=== PATIENT | female | born 1945 | race Caucasian/White ===

== ENCOUNTER 2016-04-22 17:47 | Inpatient (IN) | payer MEDICARE ==
[2016-04-22] MEDS ORDERED: ALBUTEROL NEBULIZED 2.5 MG/3 ML INHALATION STA (18:19)
[2016-04-22] MEDS ORDERED: SODIUM CHLORIDE 0.9% 1,000 ML IV STA (18:19)
[2016-04-22] MEDS ORDERED: IPRATROPIUM 0.5 MG/2.5 ML NEBU INHALATION STA (18:19)
[2016-04-22] MEDS ORDERED: methylPREDNISolone SOD SUCCI 125 MG/2 ML VIAL IV STA (18:19)
[2016-04-22] MEDS ORDERED: AZITHROMYCIN 500 MG in SODIUM CHLORIDE 0.9% 250 ML IVPB STA (18:19)
--- NOTE | 2016-04-22 18:32 | ED ---
General Adult HPI - General Source: patient, RN notes reviewed, old records reviewed Mode of arrival: ambulatory Limitations: no limitations <Colt Leija - Last Filed: 04/22/16 18:40> <Willy Bansal - Last Filed: 04/22/16 20:48> - General Chief complaint: Upper Respiratory Infection Stated complaint: lorna Time Seen by Provider: 04/22/16 18:19 - History of Present Illness Initial comments: This is a 70-year-old female here for evaluation of severe shortness of breath. Patient does suffer from asthma no heart failure. Coming with severe shortness of breath started today progressively worsening, patient does do a has at home but at this time they have not been helpful. Patient has no known fevers. No travel history or sick contacts no chest pain (Colt Leija) - Related Data Home Medications Medication Instructions Recorded Confirmed Aspirin 81 mg PO DAILY 01/04/14 04/22/16 Ferrous Sulfate [Feosol] 325 mg PO DAILY 01/04/14 04/22/16 Insulin Detemir [Levemir Flexpen] 56 units SQ AC-SUPPER 01/04/14 04/22/16 Multivitamin/Iron/Folic Acid 1 tab PO DAILY 01/04/14 04/22/16 [Centrum Complete Multivit Tab] Ranitidine HCl 150 mg PO DAILY 01/04/14 04/22/16 Sertraline [Zoloft] 100 mg PO DAILY 01/04/14 04/22/16 Sodium Chloride 5% Ophth Oint 1 applic LEFT EYE DAILY 01/04/14 04/22/16 [Amanda 128] Warfarin [Coumadin] 7.5 mg PO SUTUWETHSA 01/04/14 04/22/16 hydrALAZINE HCL [Apresoline] 25 mg PO TID 01/04/14 04/22/16 Albuterol Inhaler [Ventolin Hfa 2 puff INHALATION RT-QID PRN 08/30/14 04/22/16 Inhaler] Warfarin [Coumadin] 5 mg PO MOWEFR 08/30/14 04/22/16 Acetaminophen Tab [Tylenol Tab] 500 mg PO Q6HR PRN 04/22/16 04/22/16 Brimonidine Tartrate/Timolol 1 drop LEFT EYE DAILY 04/22/16 04/22/16 [Combigan 0.2%-0.5% Eye Drops] Fluticasone/Salmeterol [Advair Hfa 2 puff INHALATION RT-BID 04/22/16 04/22/16 230-21 Mcg Inhaler] Furosemide [Lasix] 40 mg PO DAILY 04/22/16 04/22/16 Gabapentin [Neurontin] 300 mg PO BID 04/22/16 04/22/16 Loratadine [Claritin] 10 mg PO DAILY 04/22/16 04/22/16 Magnesium Oxide [Mag-Ox] 250 mg PO DAILY 04/22/16 04/22/16 metFORMIN HCL 1,000 mg PO DAILY 04/22/16 04/22/16 Allergies Allergy/AdvReac Type Severity Reaction Status Date / Time Latex, Natural Rubber Allergy Itching Verified 04/22/16 19:02 sulfamethoxazole Allergy Rash/Hives Verified 04/22/16 19:02 [From Bactrim] trimethoprim [From Bactrim] Allergy Rash/Hives Verified 04/22/16 19:02 Review of Systems ROS Other: All systems not noted in ROS Statement are negative. <Colt Leija - Last Filed: 04/22/16 18:40> ROS Other: All systems not noted in ROS Statement are negative. <Willy Bansal - Last Filed: 04/22/16 20:48> ROS Statement: Those systems with pertinent positive or pertinent negative responses have been documented in the HPI. Past Medical History Past Medical History: Atrial Fibrillation, Asthma, Diabetes Mellitus, Hypertension, Osteoarthritis (OA) Additional Past Medical History / Comment(s): uterine ca History of Any Multi-Drug Resistant Organisms: None Reported, MRSA Date of last positivie culture/infection: 2013/MRSA MDRO Source:: right thumb Past Surgical History: Cholecystectomy, Hysterectomy Additional Past Surgical History / Comment(s): eye sx Past Psychological History: Depression Smoking Status: Never smoker Past Alcohol Use History: None Reported Past Drug Use History: None Reported <Colt Leija - Last Filed: 04/22/16 18:40> General Exam Limitations: no limitations General appearance: alert, anxious, in distress Head exam: Present: atraumatic, normocephalic, normal inspection Eye exam: Present: normal appearance, PERRL, EOMI. Absent: scleral icterus, conjunctival injection, periorbital swelling ENT exam: Present: normal exam, mucous membranes moist Neck exam: Present: normal inspection. Absent: tenderness, meningismus, lymphadenopathy Respiratory exam: Present: respiratory distress, wheezes, accessory muscle use, decreased breath sounds, prolonged expiratory. Absent: rales, rhonchi, stridor Cardiovascular Exam: Present: regular rate, normal rhythm, normal heart sounds. Absent: systolic murmur, diastolic murmur, rubs, gallop, clicks GI/Abdominal exam: Present: soft, normal bowel sounds. Absent: distended, tenderness, guarding, rebound, rigid Extremities exam: Present: normal inspection, full ROM, normal capillary refill. Absent: tenderness, pedal edema, joint swelling, calf tenderness Back exam: Present: normal inspection Neurological exam: Present: alert, oriented X3, CN II-XII intact Psychiatric exam: Present: normal affect, normal mood Skin exam: Present: warm, dry, intact, normal color. Absent: rash <Colt Leija - Last Filed: 04/22/16 18:40> Course <Colt Leija - Last Filed: 04/22/16 18:40> <Willy Bansal - Last Filed: 04/22/16 20:48> Vital Signs 04/22/16 04/22/16 04/22/16 17:51 18:26 19:00 Temperature 97.8 F Pulse Rate 41 L 69 57 L Respiratory 24 Rate Blood Pressure 204/64 O2 Sat by Pulse 82 L Oximetry 04/22/16 04/22/16 04/22/16 19:11 19:23 19:24 Temperature Pulse Rate 50 L 56 L 56 L Respiratory 16 Rate Blood Pressure 252/142 O2 Sat by Pulse 94 L Oximetry 04/22/16 04/22/16 19:33 20:44 Temperature Pulse Rate 68 70 Respiratory 16 Rate Blood Pressure 168/72 O2 Sat by Pulse 94 L Oximetry - Reevaluation(s) Reevaluation #1: 04/22/16 18:35 Patient with minimal to little breathing treatment help and prolonged breathing treatment (Colt Leija) EKG Findings - EKG Comments: EKG Findings:: EKG shows undetermined rhythm rate of 68, QRS 86, QTC 393 <Colt Leija - Last Filed: 04/22/16 18:40> Medical Decision Making - Radiology Data Radiology results: report reviewed (This x-ray two-view is negative for acute disease), image reviewed <Colt Leija - Last Filed: 04/22/16 18:40> - Lab Data Result diagrams: 04/22/16 18:30 04/22/16 18:30 - Radiology Data Radiology results: report reviewed, image reviewed (Chest x-ray shows some increased pulmonary vasculature.) <Willy Bansal - Last Filed: 04/22/16 20:48> - Medical Decision Making 6-year-old female date ER for evaluation of severe shortness of breath, patient having to difficulty breathing, patient care prolonged attention with minimal help, x-ray negative lab work,. Patient is severe asthma exacerbation, will be admitted for breathing treatments and steroids (Colt Leija) Patient reexamined by myself, Dr. Bansal. Patient is to comfortably on BiPAP. Patient still has continued wheezing. Patient and family updated on results and plan. Dr. dailey paged for admission for Dr. Willingham. (Willy Bansal) - Lab Data Lab Results 04/22/16 04/22/16 04/22/16 Range/Units 18:30 18:30 18:30 WBC 9.4 (3.8-10.6) k/uL RBC 6.00 H (3.80-5.40) m/uL Hgb 14.9 (11.4-16.0) gm/dL Hct 48.9 H (34.0-46.0) % MCV 81.4 (80.0-100.0) fL MCH 24.8 L (25.0-35.0) pg MCHC 30.5 L (31.0-37.0) g/dL RDW 15.1 (11.5-15.5) % Plt Count 255 (150-450) k/uL Neutrophils % 76 % Lymphocytes % 14 % Monocytes % 6 % Eosinophils % 1 % Basophils % 1 % Neutrophils # 7.2 (1.3-7.7) k/uL Lymphocytes # 1.3 (1.0-4.8) k/uL Monocytes # 0.6 (0-1.0) k/uL Eosinophils # 0.1 (0-0.7) k/uL Basophils # 0.1 (0-0.2) k/uL Hypochromasia Moderate PT (9.0-12.0) sec INR (<1.1) APTT (22.0-30.0) sec Sodium 138 (137-145) mmol/L Potassium 4.6 (3.5-5.1) mmol/L Chloride 98 (98-107) mmol/L Carbon Dioxide 28 (22-30) mmol/L Anion Gap 12 mmol/L BUN 20 H (7-17) mg/dL Creatinine 0.70 (0.52-1.04) mg/dL Est GFR (MDRD) Af Amer >60 (>60 ml/min/1.73 sqM) Est GFR (MDRD) Non-Af >60 (>60 ml/min/1.73 sqM) Glucose 213 H (74-99) mg/dL Calcium 8.7 (8.4-10.2) mg/dL Magnesium 1.7 (1.6-2.3) mg/dL Total Bilirubin 0.7 (0.2-1.3) mg/dL AST 36 (14-36) U/L ALT 32 (9-52) U/L Alkaline Phosphatase 83 (38-126) U/L Total Creatine Kinase 76 (30-135) U/L CK-MB (CK-2) 0.9 (0.0-2.4) ng/mL CK-MB (CK-2) Rel Index 1.2 Troponin I 0.013 (0.000-0.034) ng/mL NT-Pro-B Natriuret Pep pg/mL Total Protein 7.1 (6.3-8.2) g/dL Albumin 4.2 (3.5-5.0) g/dL 04/22/16 04/22/16 Range/Units 18:30 18:30 WBC (3.8-10.6) k/uL RBC (3.80-5.40) m/uL Hgb (11.4-16.0) gm/dL Hct (34.0-46.0) % MCV (80.0-100.0) fL MCH (25.0-35.0) pg MCHC (31.0-37.0) g/dL RDW (11.5-15.5) % Plt Count (150-450) k/uL Neutrophils % % Lymphocytes % % Monocytes % % Eosinophils % % Basophils % % Neutrophils # (1.3-7.7) k/uL Lymphocytes # (1.0-4.8) k/uL Monocytes # (0-1.0) k/uL Eosinophils # (0-0.7) k/uL Basophils # (0-0.2) k/uL Hypochromasia PT 21.6 H (9.0-12.0) sec INR 2.2 (<1.1) APTT 29.4 (22.0-30.0) sec Sodium (137-145) mmol/L Potassium (3.5-5.1) mmol/L Chloride (98-107) mmol/L Carbon Dioxide (22-30) mmol/L Anion Gap mmol/L BUN (7-17) mg/dL Creatinine (0.52-1.04) mg/dL Est GFR (MDRD) Af Amer (>60 ml/min/1.73 sqM) Est GFR (MDRD) Non-Af (>60 ml/min/1.73 sqM) Glucose (74-99) mg/dL Calcium (8.4-10.2) mg/dL Magnesium (1.6-2.3) mg/dL Total Bilirubin (0.2-1.3) mg/dL AST (14-36) U/L ALT (9-52) U/L Alkaline Phosphatase (38-126) U/L Total Creatine Kinase (30-135) U/L CK-MB (CK-2) (0.0-2.4) ng/mL CK-MB (CK-2) Rel Index Troponin I (0.000-0.034) ng/mL NT-Pro-B Natriuret Pep 65973 pg/mL Total Protein (6.3-8.2) g/dL Albumin (3.5-5.0) g/dL Critical Care Time Critical Care Time: Yes Total Critical Care Time: 31 <Colt Leija - Last Filed: 04/22/16 18:40> Disposition <Colt Leija - Last Filed: 04/22/16 18:40> <Willy Bansal - Last Filed: 04/22/16 20:48> Clinical Impression: COPD exacerbation, Hypoxia, Congestive heart failure Disposition: ADMITTED IP TO THIS HOSP Condition: Fair
[2016-04-22 19:00] LABS: Basophils # (A) 0.1 k/uL (0-0.2); Basophils % (A) 1 %; CH 25.2; CHCM 31.1; Eosinophils # (A) 0.1 k/uL (0-0.7); Eosinophils % (A) 1 %; HCT 48.9 % (34.0-46.0); HDW 2.87; HGB 14.9 gm/dL (11.4-16.0); Hypochromasia Moderate; Luc # (Auto) 0.19; Luc % (Auto) 2; Lymphocytes # (A) 1.3 k/uL (1.0-4.8); Lymphocytes % (A) 14 %; MCH 24.8 pg (25.0-35.0); MCHC 30.5 g/dL (31.0-37.0); MCV 81.4 fL (80.0-100.0); Mean Platelet Volume 6.8; Monocytes # (A) 0.6 k/uL (0-1.0); Monocytes % (A) 6 %; Neutrophils # (A) 7.2 k/uL (1.3-7.7); Neutrophils % (A) 76 %; RDW 15.1 % (11.5-15.5); WBC 9.4 k/uL (3.8-10.6); WBC (Perox) 9.52
[2016-04-22 19:12] LABS: ALT 32 U/L (9-52); AST 36 U/L (14-36); Alkaline Phosphatase 83 U/L (38-126); Anion Gap 12 mmol/L; Blood Urea Nitrogen 20 mg/dL (7-17); Calcium 8.7 mg/dL (8.4-10.2); Carbon Dioxide 28 mmol/L (22-30); Chloride 98 mmol/L (98-107); Glucose 213 mg/dL (74-99); Magnesium 1.7 mg/dL (1.6-2.3); Non-African American GFR(MDRD) >60 (>60 ml/min/1.73 sqM); Potassium 4.6 mmol/L (3.5-5.1); Sodium 138 mmol/L (137-145); Total Bilirubin 0.7 mg/dL (0.2-1.3); Total Protein 7.1 g/dL (6.3-8.2)
[2016-04-22] MEDS ORDERED: hydrALAZINE HCL 20 MG/ML 1 ML VIAL IVP STA (19:12)
--- NOTE | 2016-04-22 19:16 | XR ---
EXAMINATION TYPE: XR chest 1V portable DATE OF EXAM: 04/22/2016 7:00 PM COMPARISON: Prior chest x-ray August 30, 2014. HISTORY: Shortness of breath TECHNIQUE: Single AP portable frontal upright view of the chest is obtained. FINDINGS: There is chronic parenchymal change without suspicious focal air space opacity, pleural ef fusion, or pneumothorax seen bilaterally. The cardiac silhouette size remains enlarged with suggesti on of new mild central vascular congestion. The osseous structures are somewhat demineralized. Old fr acture deformity left humeral head level is suspected. IMPRESSION: Consider CHF exacerbation as there is cardiomegaly with perhaps mild central vascular co ngestion, clinical correlation advised.
[2016-04-22 19:18] LABS: INR 2.2 (<1.1); Partial Thromboplastin Time 29.4 sec (22.0-30.0); Prothrombin Time 21.6 sec (9.0-12.0)
[2016-04-22] MEDS: IPRATROPIUM-ALBUTEROL 3 ML NEB INHALATION SCH (19:19)
[2016-04-22] MEDS ORDERED: FUROSEMIDE 10 MG/ML 4 ML VIAL IV STA (19:38)
[2016-04-22] MEDS ORDERED: NITROGLYCERIN OINT 1 INCH/GM PACKET TOPICAL STA (19:38)
[2016-04-22 20:29] LABS: Creatine Kinase MB 0.9 ng/mL (0.0-2.4); Troponin I 0.013 ng/mL (0.000-0.034)
[2016-04-22] MEDS ORDERED: ASPIRIN 325 MG TAB PO STA (20:48)
[2016-04-22] MEDS ORDERED: IPRATROPIUM-ALBUTEROL 3 ML NEB INHALATION PRN (21:12)
[2016-04-22 21:53] LABS: Glucose,Whole Blood 195 mg/dL (75-99)
[2016-04-22] MEDS: NITROGLYCERIN OINT 1 INCH/GM PACKET TOPICAL SCH (22:32)
[2016-04-22] MEDS ORDERED: ACETAMINOPHEN TAB 500 MG TAB PO PRN (23:08)
[2016-04-22] MEDS ORDERED: WARFARIN 7.5 MG TAB PO SCH (23:15)
[2016-04-22] MEDS: GABAPENTIN 300 MG CAP PO SCH (23:54)
[2016-04-22] MEDS: hydrALAZINE HCL 25 MG TAB PO SCH (23:54)
[2016-04-22] MEDS: methylPREDNISolone SOD SUCCI 125 MG/2 ML VIAL IV SCH (23:54)
[2016-04-23 06:52] LABS: INR 2.6 (<1.1); Prothrombin Time 24.6 sec (9.0-12.0)
[2016-04-23] MEDS: INSULIN LISPRO (humaLOG) 300 UNIT/3 ML VIAL SQ SCH ×4 (06:52→21:57)
[2016-04-23] MEDS: methylPREDNISolone SOD SUCCI 125 MG/2 ML VIAL IV SCH ×4 (06:52→23:40)
[2016-04-23] MEDS: FUROSEMIDE 10 MG/ML 4 ML VIAL IV SCH ×3 (06:53→21:11)
[2016-04-23 07:01] LABS: Glucose,Whole Blood 229 mg/dL (75-99)
[2016-04-23] MEDS: IPRATROPIUM-ALBUTEROL 3 ML NEB INHALATION SCH ×4 (08:34→19:31)
[2016-04-23] MEDS: LORATADINE 10 MG TAB PO SCH (08:36)
[2016-04-23] MEDS: metFORMIN 500 MG TAB PO SCH (08:36)
[2016-04-23] MEDS: FERROUS SULFATE 325 MG TAB PO SCH (08:36)
[2016-04-23] MEDS: FAMOTIDINE 20 MG TAB PO SCH (08:36)
[2016-04-23] MEDS: BRIMONIDINE TARTRATE 0.2% DROPS 5 ML BTL LEFT EYE SCH (08:36)
[2016-04-23] MEDS: MULTIVITAMINS, THERA 1 EACH TAB PO SCH (08:37)
[2016-04-23] MEDS: hydrALAZINE HCL 25 MG TAB PO SCH ×3 (08:37→21:58)
[2016-04-23] MEDS: GABAPENTIN 300 MG CAP PO SCH ×2 (08:37→21:11)
[2016-04-23] MEDS: NITROGLYCERIN OINT 1 INCH/GM PACKET TOPICAL SCH (08:37)
[2016-04-23] MEDS: SERTRALINE 100 MG TAB PO SCH (08:37)
[2016-04-23] MEDS: SODIUM CHLORIDE 5% OPHTH OINT 3.5 GM TUBE LEFT EYE SCH ×2 (08:38→08:56)
[2016-04-23] MEDS: TIMOLOL 0.5% OPHTH DROPS 5 ML BTL LEFT EYE SCH (08:38)
[2016-04-23] MEDS: MAGNESIUM OXIDE 400 MG TAB PO SCH (08:40)
[2016-04-23] MEDS ORDERED: ENOXAPARIN 40 MG/0.4 ML SYRINGE SQ SCH (09:00)
[2016-04-23] MEDS ORDERED: ASPIRIN 325 MG TAB PO SCH (09:00)
--- NOTE | 2016-04-23 09:41 | P.CRDCN ---
History of Present Illness Consult date: 04/23/16 Requesting physician: Jhonathan Hatfield Consult reason: shortness of breath Chief complaint: Shortness of breath and productive cough History of present illness: This is a pleasant 70-year-old female who follows with Dr. Mauro in the office. She has a known history of hypertension, diabetes, hyperlipidemia, paroxysmal atrial fibrillation, on Coumadin, asthma, no prior documented coronary artery disease, patient did undergo cardiac catheterization in January 2014 which revealed mild coronary artery disease involving the LAD. She presents to the hospital with symptoms of worsening shortness of breath, positive for orthopnea, no PND. She states for the past couple of weeks she's been dealing with an upper respiratory infection, coughing up green sputum, she had seen Dr. Murphy in the office and was initiated on antibiotics. For the past 3 day duration patient states she's been getting more and more short of breath, she has not noticed any worsening of peripheral edema, she denies fevers at home. Chest x-ray on admission revealed CHF exacerbation with cardiomegaly and mild central vascular congestion. EKG on admission showed normal sinus rhythm junctional rhythm with PACs, subsequent EKG shows a normal sinus rhythm with nonspecific ST-T wave changes. Blood pressure on admission 204/64 , oxygen saturation 82 on room air. Blood pressure this morning 180/60 with a heart rate in the 70s. The pressure on admission 204 over Laboratory data on admission, WBC 9.4, hemoglobin 14.9, INR 2.6, potassium 4.6, magnesium level I.7. Troponins 0.013, 0.031, 0.015. BNP level 11,200. Patient was initiated on IV antibiotics in the emergency room as well as IV Lasix. At the time of my examination this morning, patient states she still feels congested. Past Medical History Past Medical History: Atrial Fibrillation, Asthma, Diabetes Mellitus, Hypertension, Osteoarthritis (OA) Additional Past Medical History / Comment(s): uterine ca 1994, broken left arm in 2006 from fall, Skin CA History of Any Multi-Drug Resistant Organisms: MRSA Date of last positivie culture/infection: 2012/MRSA MDRO Source:: right thumb Past Surgical History: Cholecystectomy, Hysterectomy Additional Past Surgical History / Comment(s): eye sx Past Anesthesia/Blood Transfusion Reactions: No Reported Reaction Past Psychological History: Depression Smoking Status: Former smoker Past Alcohol Use History: None Reported Past Drug Use History: None Reported - Past Family History Mother Family Medical History: Cancer, COPD, Hypertension Father Family Medical History: Cancer, Hypertension Medications and Allergies Home Medications Medication Instructions Recorded Confirmed Type Aspirin 81 mg PO DAILY 01/04/14 04/22/16 History Ferrous Sulfate [Feosol] 325 mg PO DAILY 01/04/14 04/22/16 History Insulin Detemir [Levemir Flexpen] 56 units SQ AC-SUPPER 01/04/14 04/22/16 History Multivitamin/Iron/Folic Acid 1 tab PO DAILY 01/04/14 04/22/16 History [Centrum Complete Multivit Tab] Ranitidine HCl 150 mg PO DAILY 01/04/14 04/22/16 History Sertraline [Zoloft] 100 mg PO DAILY 01/04/14 04/22/16 History Sodium Chloride 5% Ophth Oint 1 applic LEFT EYE DAILY 01/04/14 04/22/16 History [Amanda 128] Warfarin [Coumadin] 7.5 mg PO SUTUWETHSA 01/04/14 04/22/16 History hydrALAZINE HCL [Apresoline] 25 mg PO TID 01/04/14 04/22/16 History Albuterol Inhaler [Ventolin Hfa 2 puff INHALATION RT-QID PRN 08/30/14 04/22/16 History Inhaler] Warfarin [Coumadin] 5 mg PO MOWEFR 08/30/14 04/22/16 History Acetaminophen Tab [Tylenol Tab] 500 mg PO Q6HR PRN 04/22/16 04/22/16 History Brimonidine Tartrate/Timolol 1 drop LEFT EYE DAILY 04/22/16 04/22/16 History [Combigan 0.2%-0.5% Eye Drops] Fluticasone/Salmeterol [Advair Hfa 2 puff INHALATION RT-BID 04/22/16 04/22/16 History 230-21 Mcg Inhaler] Furosemide [Lasix] 40 mg PO DAILY 04/22/16 04/22/16 History Gabapentin [Neurontin] 300 mg PO BID 04/22/16 04/22/16 History Loratadine [Claritin] 10 mg PO DAILY 04/22/16 04/22/16 History Magnesium Oxide [Mag-Ox] 250 mg PO DAILY 04/22/16 04/22/16 History metFORMIN HCL 1,000 mg PO DAILY 04/22/16 04/22/16 History Allergies Allergy/AdvReac Type Severity Reaction Status Date / Time Latex, Natural Rubber Allergy Itching Verified 04/22/16 19:02 sulfamethoxazole Allergy Rash/Hives Verified 04/22/16 19:02 [From Bactrim] trimethoprim [From Bactrim] Allergy Rash/Hives Verified 04/22/16 19:02 Physical Exam Vitals: Vital Signs Temp Pulse Pulse Resp BP BP Pulse Ox 04/23/16 08:48 64 04/23/16 08:34 97 F L 72 80 20 180/60 93 L 04/23/16 03:25 97.1 F L 73 20 196/80 91 L 04/23/16 01:00 187/79 04/22/16 23:50 96.4 F L 74 20 198/84 92 L 04/22/16 21:15 96.4 F L 72 20 168/108 92 L 04/22/16 20:44 70 16 168/72 94 L 04/22/16 19:33 68 04/22/16 19:24 56 L 04/22/16 19:23 56 L 04/22/16 19:11 50 L 16 252/142 94 L 04/22/16 19:00 57 L Intake and Output 04/22/16 04/23/16 04/23/16 22:59 06:59 14:59 Output Total 200 600 Balance -200 -600 Output: Urine 200 600 Other: Voiding Method Bedside Commode Bedside Commode Weight 103.1 kg 103.1 kg PHYSICAL EXAMINATION: HEENT: Head is atraumatic, normocephalic. Pupils equal, round. Neck is supple. There is no elevated jugular venous pressure. HEART EXAMINATION: Heart S1 and S2 normal CHEST EXAMINATION: Lungs reveal decreased air exchange with expiratory wheezing throughout ABDOMEN: Soft, obese, nontender. Bowel sounds are heard. No organomegaly noted. EXTREMITIES: 2+ peripheral pulses with trace evidence of peripheral edema and no calf tenderness noted. NEUROLOGIC patient is awake, alert and oriented -3. . Results 04/22/16 18:30 04/22/16 18:30 Cardiac Enzymes 04/23/16 04/23/16 Range/Units 00:22 06:31 Troponin I 0.031 0.015 (0.000-0.034) ng/mL Coagulation 04/23/16 Range/Units 06:31 PT 24.6 H (9.0-12.0) sec Current Medications Generic Name Dose Route Start Last Admin Trade Name Freq PRN Reason Stop Dose Admin Acetaminophen 500 mg 04/22/16 23:08 Tylenol Tab PO Q6HR PRN Pain Albuterol/Ipratropium 3 ml 04/22/16 20:00 04/23/16 08:34 Duoneb 0.5 Mg-3 Mg/3 Ml Soln INHALATION 3 ml RT-QID [facility] Administration Albuterol/Ipratropium 3 ml 04/22/16 21:12 Duoneb 0.5 Mg-3 Mg/3 Ml Soln INHALATION RT-Q2H PRN Shortness Of Breath Or Wheezing Aspirin 81 mg 04/23/16 09:00 Aspirin PO DAILY [facility] Brimonidine Tartrate 1 drops 04/23/16 09:00 04/23/16 08:36 Alphagan P 0.2% Ophth Soln LEFT EYE 1 drops DAILY [facility] Administration Famotidine 20 mg 04/23/16 09:00 04/23/16 08:36 Pepcid PO 20 mg DAILY [facility] Administration Ferrous Sulfate 325 mg 04/23/16 09:00 04/23/16 08:36 Feosol PO 325 mg DAILY [facility] Administration Furosemide 40 mg 04/23/16 06:00 04/23/16 06:53 Lasix IV 40 mg Q8H [facility] Administration Gabapentin 300 mg 04/22/16 23:15 04/23/16 08:37 Neurontin PO 300 mg BID [facility] Administration Hydralazine HCl 25 mg 04/22/16 23:15 04/23/16 08:37 Apresoline PO 25 mg TID [facility] Administration Insulin Detemir 56 unit 04/23/16 17:30 Levemir SQ AC-SUPPER [facility] Insulin Human Lispro 0 unit 04/23/16 07:30 04/23/16 06:52 Humalog SQ 7 unit ACHS [facility] Administration Protocol Loratadine 10 mg 04/23/16 09:00 04/23/16 08:36 Claritin PO 10 mg DAILY [facility] Administration Magnesium Oxide 400 mg 04/23/16 09:00 04/23/16 08:40 Mag-Ox PO 400 mg DAILY [facility] Administration Metformin HCl 1,000 mg 04/23/16 09:00 04/23/16 08:36 Glucophage PO 1,000 mg DAILY [facility] Administration Methylprednisolone Sodium Succinate 60 mg 04/23/16 00:00 04/23/16 06:52 Solu-Medrol IV 60 mg Q6HR [facility] Administration Multivitamins 1 each 04/23/16 09:00 04/23/16 08:37 Theragran PO 1 each DAILY [facility] Administration Sertraline HCl 100 mg 04/23/16 09:00 04/23/16 08:37 Zoloft PO 100 mg DAILY [facility] Administration Sodium Chloride 10 ml 04/22/16 21:00 04/23/16 08:38 Saline Flush IV 10 ml BID [facility] Administration Sodium Chloride 1 applic 04/23/16 09:00 04/23/16 08:56 Amanda 128 LEFT EYE Not Given DAILY [facility] Timolol Maleate 1 drops 04/23/16 09:00 04/23/16 08:38 Timoptic LEFT EYE 1 drops DAILY [facility] Administration Warfarin Sodium 5 mg 04/23/16 18:00 Coumadin PO MOWEFR [facility] Warfarin Sodium 7.5 mg 04/22/16 23:15 04/22/16 23:54 Coumadin PO 7.5 mg SUTUWETHSA [facility] Administration Intake and Output 04/22/16 04/23/16 04/23/16 22:59 06:59 14:59 Output Total 200 600 Balance -200 -600 Output: Urine 200 600 Other: Voiding Method Bedside Commode Bedside Commode Weight 103.1 kg 103.1 kg EKG Interpretations (text) Initial EKG shows a junctional rhythm with PACs, subsequent EKG shows normal sinus rhythm with nonspecific ST-T wave changes Assessment and Plan Plan: Assessment and plan #1 symptoms of chest congestion with associated productive cough of green sputum , suggestive of possible tracheobronchitis, with exacerbation of patient currently on IV antibiotics #2 exacerbation of congestive heart failure, likely diastolic in nature, most recent echocardiogram with Doppler study was performed in August 2014 which revealed an ejection fraction of 50-55%. #3 paroxysmal atrial fibrillation, on Coumadin, INR therapeutic. #4 accelerated hypertension, blood pressure on arrival 204/64 #5 diabetes #6 hyperlipidemia #7 history of asthma #8 no significant obstructive coronary artery disease by cardiac catheterization performed in 2013 #9 hypomagnesemia Plan We will request an echocardiogram with Doppler study be performed. Decrease aspirin to [address] magnesium. Continue IV Lasix. Add a small dose of beta alexis to the patient's medication regime, along with small dose of EMILEE inhibitor. Further recommendations will be based on these findings and the patient's clinical course. DNP note has been reviewed, I agree with a documented findings and plan of care. Patient was seen and examined.
--- NOTE | 2016-04-23 09:59 | P.PN ---
Progress Note - Text This is an addendum to the dictated cardiology consultation. The patient has a known history of paroxysmal atrial fibrillation, normal systolic function and mild CAD by cardiac catheterization done in 2013 who presents with progressive cough, dyspnea and diaphoresis. She has greenish sputum. She denies any chest pain, dizziness or palpitations. She has been followed in the past by Dr. Hawk and has been stable from the cardiac standpoint. Her blood pressure on presentation was elevated. She has no significant peripheral edema, she has no PND nor orthopnea. She feels better this morning. Her NT proBNP was elevated on presentation. Her lung examination shows scattered wheezes with decreased air exchange, she is in sinus mechanism and she has no significant edema, varicosities are noted. Her presentation is consistent with tracheobronchitis and exacerbation of COPD. She has an element of CHF, secondary to diastolic dysfunction and her lung infection. I see no evidence of active ischemic event. I agree with your plan of diuresis for 24 hours. An EMILEE inhibitor will be added to the regimen to optimize the blood pressure. We will follow the renal function closely and depending on the progress further recommendations will be made. Thank you for this consult we will follow with you.
--- NOTE | 2016-04-23 10:17 | ECHOF ---
Referral Reason:Heart Failure MEASUREMENTS -------- HEIGHT: 165.1 cm WEIGHT: 103.0 kg BP: 196/80 RVIDd: 3.6 cm (< 3.3) IVSd: 1.4 cm (0.6 - 1.1) LVIDd: 3.7 cm (3.9 - 5.3) LVPWd: 1.3 cm (0.6 - 1.1) IVSs: 1.6 cm LVIDs: 3.1 cm LVPWs: 1.6 cm LA Diam: 3.4 cm (2.7 - 3.8) LAESV Index (A-L): 38.58 ml/m Ao Diam: 3.4 cm (2.0 - 3.7) LA Diam: 3.5 cm (2.7 - 3.8) MV EXCURSION: 22.560 mm (> 18.000) MV EF SLOPE: 63 mm/s (70 - 150) EPSS: 0.8 cm MV E Declan: 0.74 m/s MV DecT: 282 ms MV A Declan: 1.25 m/s MV E/A Ratio: 0.59 RAP: 5.00 mmHg RVSP: 46.79 mmHg FINDINGS -------- Sinus rhythm. This was a technically adequate study. There is mild concentric left ventricular hypertrophy. Overall left ventricular systolic function is low-normal with, an EF between 50 - 55 %. The right ventricle is normal in size. LA is moderately dilated 34-39 ml/m2 The right atrial size is normal. There is mild aortic valve sclerosis. There is no evidence of aortic regurgitation. Mild mitral annular calcification present. Mild mitral regurgitation is present. [id number] tricuspid regurgitation present. There is no evidence of pulmonary hypertension. The right ventricular systolic pressure, as measured by Doppler, is 46.79mmHg. There is no pulmonic regurgitation present. The aortic root size is normal. There is no pericardial effusion. CONCLUSIONS -------- 1. There is mild concentric left ventricular hypertrophy. 2. Overall left ventricular systolic function is low-normal with, an EF between 50 - 55 %. 3. LA is moderately dilated 34-39 ml/m2 4. There is mild aortic valve sclerosis. 5. Mild mitral annular calcification present. 6. Mild mitral regurgitation is present. 7. [id number] tricuspid regurgitation present. 8. There is no evidence of pulmonary hypertension. 9. The right ventricular systolic pressure, as measured by Doppler, is 46.79mmHg. CYBER SOFTWARE ENGINEER: Lucy Adams RDCS
[2016-04-23] MEDS: LISINOPRIL 5 MG TAB PO SCH (12:01)
[2016-04-23] MEDS: ASPIRIN 81 MG CHEW PO SCH (12:01)
[2016-04-23] MEDS: METOPROLOL TARTRATE 25 MG TAB PO SCH ×2 (12:01→21:11)
[2016-04-23 12:06] LABS: Glucose,Whole Blood 215 mg/dL (75-99)
--- NOTE | 2016-04-23 16:59 | P.CNPUL ---
History of Present Illness Consult date: 04/23/16 Reason for consult: dyspnea History of present illness: 70-year-old female patient, presented to the hospital because of worsening shortness of breath, some orthopnea without paroxysmal nocturnal dyspnea. The patient started by having symptoms of upper respiratory checked infection for which she was seen in our office and she received some antibiotic treatment. Back then the patient was complaining of some increased cough with production of greenish sputum and despite antibiotic treatment the patient became more short of breath. No worsening of the lower extremity edema. No fever or chills. Chest x-ray on the time of admission showed CHF exacerbation/ cardiomegaly with increased pulmonary vascular markings and congestion. EKG remained in normal sinus rhythm. The patient had no troponin elevation. Noted the blood pressure the time of admission was quite elevated with initial blood pressure of 204/64 and the patient's pulse ox was around 82% on room air. Clinically the patient is feeling better as the patient's blood pressure improved and is under better control. ProBNP level at time of admission was above 11,000 and the troponins are 0.013, 0.031 and 0.015 respectively 3. This patient is known to have hypertension, diabetes mellitus, hyperlipidemia, asthma and paroxysmal atrial fibrillation. No documented coronary artery disease. In terms of her asthma, the patient is demented on a combination of Advair 115/21 HFA 2 puffs twice a day as baseline and Ventolin rescue inhaler on an as-needed basis. No recurrent exacerbation of her asthma. No previous bouts of ventilator dependent respiratory failure due to asthma exacerbation. The echocardiogram from this current admission shows an ejection fraction of 50- 55%, moderately dilated LA, mild aortic valve sclerosis, moderate degree of pulmonary hypertension with a PA pressures of 46.7 mmHg. Review of Systems Fully of system was done and the positive findings are almost above in history of present illness Past Medical History Past Medical History: Atrial Fibrillation, Asthma, Diabetes Mellitus, Hypertension, Osteoarthritis (OA) Additional Past Medical History / Comment(s): Hypertension, diabetes mellitus, hyperlipidemia, paroxysmal defibrillation maintained on long-term articulation with warfarin, bronchial asthma, previous cardiac catheterization from January 2014 showing a mild coronary artery disease involving the LAD, uterine cancer 1994, broken left arm in 2006, skin cancer/resected History of Any Multi-Drug Resistant Organisms: MRSA Date of last positivie culture/infection: 06/09/11 MDRO Source:: right thumb Past Surgical History: Cholecystectomy, Hysterectomy Additional Past Surgical History / Comment(s): eye sx Past Anesthesia/Blood Transfusion Reactions: No Reported Reaction Past Psychological History: Depression Smoking Status: Former smoker Past Alcohol Use History: None Reported Past Drug Use History: None Reported - Past Family History Mother Family Medical History: Cancer, COPD, Hypertension Father Family Medical History: Cancer, Hypertension Medications and Allergies Home Medications Medication Instructions Recorded Confirmed Type Aspirin 81 mg PO DAILY 01/04/14 04/22/16 History Ferrous Sulfate [Feosol] 325 mg PO DAILY 01/04/14 04/22/16 History Insulin Detemir [Levemir Flexpen] 56 units SQ AC-SUPPER 01/04/14 04/22/16 History Multivitamin/Iron/Folic Acid 1 tab PO DAILY 01/04/14 04/22/16 History [Centrum Complete Multivit Tab] Ranitidine HCl 150 mg PO DAILY 01/04/14 04/22/16 History Sertraline [Zoloft] 100 mg PO DAILY 01/04/14 04/22/16 History Sodium Chloride 5% Ophth Oint 1 applic LEFT EYE DAILY 01/04/14 04/22/16 History [Amanda 128] Warfarin [Coumadin] 7.5 mg PO SUTUWETHSA 01/04/14 04/22/16 History hydrALAZINE HCL [Apresoline] 25 mg PO TID 01/04/14 04/22/16 History Albuterol Inhaler [Ventolin Hfa 2 puff INHALATION RT-QID PRN 08/30/14 04/22/16 History Inhaler] Warfarin [Coumadin] 5 mg PO MOWEFR 08/30/14 04/22/16 History Acetaminophen Tab [Tylenol Tab] 500 mg PO Q6HR PRN 04/22/16 04/22/16 History Brimonidine Tartrate/Timolol 1 drop LEFT EYE DAILY 04/22/16 04/22/16 History [Combigan 0.2%-0.5% Eye Drops] Fluticasone/Salmeterol [Advair Hfa 2 puff INHALATION RT-BID 04/22/16 04/22/16 History 230-21 Mcg Inhaler] Furosemide [Lasix] 40 mg PO DAILY 04/22/16 04/22/16 History Gabapentin [Neurontin] 300 mg PO BID 04/22/16 04/22/16 History Loratadine [Claritin] 10 mg PO DAILY 04/22/16 04/22/16 History Magnesium Oxide [Mag-Ox] 250 mg PO DAILY 04/22/16 04/22/16 History metFORMIN HCL 1,000 mg PO DAILY 04/22/16 04/22/16 History Allergies Allergy/AdvReac Type Severity Reaction Status Date / Time Latex, Natural Rubber Allergy Itching Verified 04/22/16 19:02 sulfamethoxazole Allergy Rash/Hives Verified 04/22/16 19:02 [From Bactrim] trimethoprim [From Bactrim] Allergy Rash/Hives Verified 04/22/16 19:02 Physical Exam Vitals: Vital Signs Temp Pulse Pulse Resp BP BP Pulse Ox 04/23/16 16:00 96.5 F L 68 20 180/70 96 04/23/16 15:32 74 04/23/16 15:19 74 04/23/16 12:00 98.1 F 71 20 185/75 93 L 04/23/16 08:48 64 04/23/16 08:34 97 F L 72 80 20 180/60 93 L 04/23/16 03:25 97.1 F L 73 20 196/80 91 L 04/23/16 01:00 187/79 04/22/16 23:50 96.4 F L 74 20 198/84 92 L 04/22/16 21:15 96.4 F L 72 20 168/108 92 L 04/22/16 20:44 70 16 168/72 94 L 04/22/16 19:33 68 04/22/16 19:24 56 L 04/22/16 19:23 56 L 04/22/16 19:11 50 L 16 252/142 94 L 04/22/16 19:00 57 L Intake and Output 04/23/16 04/23/16 04/23/16 06:59 14:59 22:59 Intake Total 100 Output Total 600 Balance -600 100 Intake: Oral 100 Output: Urine 600 Other: Voiding Method Bedside Commode Bedside Commode # Voids 1 # Bowel Movements 1 Weight 103.1 kg 103.1 kg Patient Weight 04/24/16 06:59 Weight 103.1 kg Head exam was generally normal. There was no scleral icterus or corneal arcus. Mucous membranes were moist.Normal neck lungs sounds are diminished bilaterally along with some few scattered expiratory wheezes and few crackles at lung bases bilaterally.Cardiac exam revealed the PMI to be normally situated and sized. The rhythm was regular and no extrasystoles were noted during several minutes of auscultation. The first and second heart sounds were normal and physiologic splitting of the second heart sound was noted. There were no murmurs, rubs, clicks, or gallops.Abdominal exam revealed normal bowel sounds. The abdomen was soft, non-tender, and without masses, organomegaly, or appreciable enlargement of the abdominal aorta.Examination of the extremities revealed easily palpable radial, femoral and pedal pulses. There was no cyanosis, clubbing or edema. Results - Laboratory Findings CBC and BMP: 04/22/16 18:30 04/22/16 18:30 PT/INR, D-dimer PT 24.6 sec (9.0-12.0) H 04/23/16 06:31 INR 2.6 (<1.1) 04/23/16 06:31 Abnormal lab findings: Abnormal Labs 04/22/16 04/23/16 04/23/16 21:40 06:31 06:31 PT 24.6 H POC Glucose (mg/dL) 195 H Hemoglobin A1c 7.0 H 04/23/16 04/23/16 06:49 12:02 PT POC Glucose (mg/dL) 229 H 215 H Hemoglobin A1c - Diagnostic Findings Chest x-ray: image reviewed Assessment and Plan Plan: Assessment 1 acute CHF/diastolic dysfunction, improving 2 asthma exacerbation secondary to upper respiratory checked infection, currently inactive in stable. Rule out underlying tracheal bronchitis 3 paroxysmal defibrillation currently controlled rate in the patient's PT/INR is therapeutic 4 hypertension with poorly controlled blood pressure at time of admission, under poor control for the time being and medication adjustments need to be further done and this will be further discussed with cardiology 5 diabetes mellitus 6 hyperlipidemia 7 mild coronary artery disease based on a previous cardiac catheterization at was done 2013 8 troponin leak I am The patient is stable for now. Asthma activity will further stabilizes over the next 24 hours and I intend to take this patient on Solu-Medrol in a.m. and put the patient a prednisone burst taper. Meanwhile, the patient will be covered with long-acting insulin with Levemir 6 units and a sliding-scale insulin coverage. The patient will be also diuresed with IV Lasix. Tight control of the blood pressure and will discuss this with cardiology to achieve better blood pressure control.
[2016-04-23] MEDS: INSULIN DETEMIR 100 UNIT/ML 10 ML VIAL SQ SCH (17:28)
[2016-04-23] MEDS ORDERED: WARFARIN 5 MG TAB PO SCH (18:00)
[2016-04-23] MEDS: SYMBICORT 160-4.5 MCG INHALER INHALATION SCH ×2 (19:31→19:34)
--- NOTE | 2016-04-23 20:46 | HP ---
DATE OF ADMISSION: 04/22/2016 PRESENTING COMPLAINT: Short of breath, wheezing. HISTORY OF PRESENTING COMPLAINT: This is 70-year-old patient of Dr. Willingham whose chronic stable medical conditions include atrial fibrillation, diabetes, hypertension, osteoarthritis, depression, peripheral neuropathy. Patient presented with 3 days of worsening shortness of breath, green phlegm, decreased fever, decreased appetite, feeling rundown, tired, wheezing, short of breath; admitted for the same. REVIEW OF SYSTEMS: CONSTITUTIONAL: Tired. HEENT: None. RESPIRATORY: As above. CARDIOVASCULAR: None. GASTROINTESTINAL: None. GENITOURINARY: None. MUSCULOSKELETAL: Aches and pains in the joints. DERMATOLOGICAL: None. HEMATOLOGICAL: None. LYMPHATIC: None. PSYCHIATRY: Some anxiety. NEUROLOGICAL: Numbness and tingling in the feet. PAST MEDICAL HISTORY: 1. Atrial fibrillation. 2. Asthma. 3. Diabetes mellitus, type 2. 4. Hypertension. 5. Osteoarthritis. 6. Depression. 7. Uterine cancer. 8. Skin cancer. PAST SURGICAL HISTORY: 1. Cholecystectomy. 2. Hysterectomy. PAST PSYCHIATRIC HISTORY: Depression. SOCIAL HISTORY: Patient smoked only in her teens. No alcohol. FAMILY HISTORY: COPD, hypertension. HOME MEDICATIONS: 1. Metformin 1000 mg a day. 2. Hydralazine 25 mg t.i.d. 3. Coumadin 5 mg Saturday, Saturday and Saturday; 7.5 on Saturday, Saturday, Saturday, and Saturday. 4. Sodium chloride eye ointment topically to left eye. 5. Zoloft 100 mg p.o. daily. 6. Zantac 150 mg p.o. daily. 7. Centrum Complete 1 tablet p.o. daily. 8. Magnesium oxide 250 mg p.o. daily. 9. Claritin 10 mg p.o. daily. 10. Levemir 56 units subcutaneously before supper. 11. Neurontin 300 mg p.o. b.i.d. 12. Lasix 40 mg daily. 13. Advair 230/21 two puffs b.i.d. 14. Iron 325 p.o. daily. 15. Combigan 0.2% to 0.5% one drop to left eye daily. 16. Aspirin 81 mg daily. 17. Ventolin 2 puffs q.i.d. p.r.n. ALLERGIES: 1. LATEX. 2. BACTRIM. PHYSICAL EXAMINATION: VITAL SIGNS ON PRESENTATION: Temperature 97.8, pulse 41, respiration 24, blood pressure 204/64, pulse ox 82% on room air. Repeat blood pressure down to 168/108. GENERAL APPEARANCE: Sitting up, tired-appearing. EYES: Pupils equal. Conjunctivae normal. HEENT: Oral cavity normal. NECK: JVD not raised. Mass not palpable. RESPIRATORY: Effort increased. LUNGS: Diminished breath sounds. Prolonged expiration and wheezing. CARDIOVASCULAR: First and second sounds normal. No edema. ABDOMEN: Soft, non-tender. Liver and spleen not palpable. LYMPHATIC: No lymph node palpable in neck or axillae. PSYCHIATRY: Alert and oriented x3. Mood and affect slightly anxious-appearing. NEUROLOGICAL: Pupils equal. Cranial nerves grossly intact. Power and sensation grossly intact. INVESTIGATIONS: White count 9.4, hemoglobin 14.9. Potassium 4.6. BUN 20 creatinine 0.70. Accu-Cheks are noted. Troponin 0.013, 0.031. ProBNP 11,200. Chest x-ray shows cardiomegaly. An AP film, 2-D echo EF 45% to 50%. EKG shows PACs. ASSESSMENT: 1. Acute on chronic congestive heart failure exacerbation from diastolic dysfunction; ejection fraction 55% to 60%; from underlying hypertensive heart disease. 2. Moderate persistent asthma with acute exacerbation. 3. Diabetes mellitus, type 2, on oral hypoglycemic. 4. Essential hypertension, uncontrolled, present on admission. 5. Primary osteoarthritis in multiple joints bilaterally. 6. Depression not otherwise specified. 7. Atrial fibrillation, chronically on Coumadin. PLAN: Patient was put on DuoNeb, IV Solu-Medrol. Home medications are resumed. Patient also put on IV Lasix. Care was discussed with the family at bedside. Cardiology and Pulmonary were consulted. Care was discussed.
[2016-04-23 21:26] LABS: Glucose,Whole Blood 260 mg/dL (75-99)
[2016-04-24] MEDS: methylPREDNISolone SOD SUCCI 125 MG/2 ML VIAL IV SCH ×2 (06:40→12:14)
[2016-04-24 06:41] LABS: Glucose,Whole Blood 206 mg/dL (75-99)
[2016-04-24] MEDS: FUROSEMIDE 10 MG/ML 4 ML VIAL IV SCH (06:41)
[2016-04-24] MEDS: INSULIN LISPRO (humaLOG) 300 UNIT/3 ML VIAL SQ SCH ×4 (06:41→21:22)
[2016-04-24 06:51] LABS: INR 4.4 (<1.1); Prothrombin Time 43.5 sec (9.0-12.0)
[2016-04-24 06:52] LABS: Anion Gap 11 mmol/L; Blood Urea Nitrogen 35 mg/dL (7-17); Carbon Dioxide 35 mmol/L (22-30); Chloride 93 mmol/L (98-107); Glucose 231 mg/dL (74-99); Non-African American GFR(MDRD) >60 (>60 ml/min/1.73 sqM); Potassium 4.2 mmol/L (3.5-5.1); Sodium 139 mmol/L (137-145)
[2016-04-24] MEDS: IPRATROPIUM-ALBUTEROL 3 ML NEB INHALATION SCH ×4 (07:43→20:25)
[2016-04-24] MEDS: SYMBICORT 160-4.5 MCG INHALER INHALATION SCH ×3 (07:44→20:27)
[2016-04-24] MEDS: METOPROLOL TARTRATE 25 MG TAB PO SCH ×2 (07:59→20:57)
[2016-04-24] MEDS: TIMOLOL 0.5% OPHTH DROPS 5 ML BTL LEFT EYE SCH (07:59)
[2016-04-24] MEDS: SODIUM CHLORIDE 5% OPHTH OINT 3.5 GM TUBE LEFT EYE SCH (07:59)
[2016-04-24] MEDS: hydrALAZINE HCL 25 MG TAB PO SCH ×3 (07:59→20:57)
[2016-04-24] MEDS: GABAPENTIN 300 MG CAP PO SCH ×2 (08:00→20:57)
[2016-04-24] MEDS: SERTRALINE 100 MG TAB PO SCH (08:00)
[2016-04-24] MEDS: LISINOPRIL 5 MG TAB PO SCH (08:00)
[2016-04-24] MEDS: BRIMONIDINE TARTRATE 0.2% DROPS 5 ML BTL LEFT EYE SCH (08:00)
[2016-04-24] MEDS: FERROUS SULFATE 325 MG TAB PO SCH (08:00)
[2016-04-24] MEDS: FAMOTIDINE 20 MG TAB PO SCH (08:00)
[2016-04-24] MEDS: MULTIVITAMINS, THERA 1 EACH TAB PO SCH (08:00)
[2016-04-24] MEDS: MAGNESIUM OXIDE 400 MG TAB PO SCH (08:00)
[2016-04-24] MEDS: LORATADINE 10 MG TAB PO SCH (08:00)
[2016-04-24] MEDS: metFORMIN 500 MG TAB PO SCH (08:01)
[2016-04-24] MEDS: ASPIRIN 81 MG CHEW PO SCH (08:01)
[2016-04-24 12:23] LABS: Glucose,Whole Blood 235 mg/dL (75-99)
--- NOTE | 2016-04-24 13:25 | P.PN ---
Subjective Principal diagnosis: Shortness of breath This is a 70-year-old female who follows regularly with Dr. Mauro in the office. She has a known history of diabetes, hypertension, hyperlipidemia, paroxysmal atrial fibrillation, asthma, presented to the hospital with symptoms of shortness of breath with associated productive cough of green sputum. He is currently being treated for exacerbation of COPD along with chronic bronchitis. Patient did have an element of diastolic congestive heart failure on admission here also and diuresed well on IV Lasix. She had accelerated hypertension on admission, medication adjustments have been made. Blood pressure this morning 160/86. With a heart rate in the 70s. INR today is 1.4, potassium 4.2, BUN 35, creatinine 0.8. She continues to be on IV Lasix, we will hold her Coumadin today. We'll discontinue the IV Lasix. Start the patient on Lasix 40 mg one tablet by mouth twice a day. Objective - Vital Signs Vital signs: Vital Signs Temp 97.2 F L 04/24/16 03:59 Pulse 73 04/24/16 11:53 Resp 20 04/24/16 08:00 BP 161/86 04/24/16 08:00 Pulse Ox 91 L 04/24/16 08:00 Intake & Output 04/23/16 04/24/16 04/24/16 18:59 06:59 18:59 Intake Total 100 480 Output Total 1800 Balance 100 -1320 Weight 103.1 kg 99.8 kg Intake: IV 0 Sodium Chloride 0.9% 1, 0 000 ml @ 100 mls/hr IV . Q10H STA Rx#:[id number] Oral 100 480 Output: Urine 1800 Other: Voiding Method Bedside Commode Bedside Commode # Voids 2 # Bowel Movements 1 - Exam PHYSICAL EXAMINATION: HEENT: [Head is atraumatic, normocephalic. Pupils equal, round. Neck is supple. There is no elevated jugular venous pressure.] HEART EXAMINATION: S1 and S2 irregular irregular CHEST EXAMINATION: Lungs reveal scattered coarse wheezing throughout. ABDOMEN: [ Soft, nontender. Bowel sounds are heard. No organomegaly noted]. EXTREMITIES:[ 2+ peripheral pulses with trace evidence of peripheral edema and no calf tenderness noted]. NEUROLOGIC [patient is awake, alert and oriented -3.] . - Labs CBC & Chem 7: 04/22/16 18:30 04/24/16 06:04 Labs: Abnormal Lab Results - Last 24 Hours (Table) 04/23/16 04/24/16 04/24/16 Range/Units 21:05 06:04 06:06 PT 43.5 H (9.0-12.0) sec Chloride 93 L (98-107) mmol/L Carbon Dioxide 35 H (22-30) mmol/L BUN 35 H (7-17) mg/dL Glucose 231 H (74-99) mg/dL POC Glucose (mg/dL) 260 H (75-99) mg/dL 04/24/16 04/24/16 Range/Units 06:39 12:12 PT (9.0-12.0) sec Chloride (98-107) mmol/L Carbon Dioxide (22-30) mmol/L BUN (7-17) mg/dL Glucose (74-99) mg/dL POC Glucose (mg/dL) 206 H 235 H (75-99) mg/dL Assessment and Plan Plan: Assessment and plan #1 symptoms of chest congestion with associated productive cough of green sputum , suggestive of possible tracheobronchitis, with exacerbation of patient currently on IV antibiotics #2 exacerbation of congestive heart failure, likely diastolic in nature, most recent echocardiogram with Doppler study was performed in August 2014 which revealed an ejection fraction of 50-55%. #3 paroxysmal atrial fibrillation, on Coumadin, INR 4.4 today #4 accelerated hypertension #5 diabetes #6 hyperlipidemia #7 history of asthma #8 no significant obstructive coronary artery disease by cardiac catheterization performed in 2013 #9 hypomagnesemia Plan Echocardiogram with Doppler study revealed an ejection fraction of 50-55%. Mild to moderate tricuspid regurg. The IV Lasix and start the patient on Lasix 40 mg one tablet by mouth twice a day. Hold the Coumadin today check PT/INR in the morning. DNP note has been reviewed, I agree with a documented findings and plan of care. Patient was seen and examined.
[2016-04-24] MEDS: FUROSEMIDE 40 MG TAB PO SCH (15:44)
[2016-04-24 16:54] LABS: Glucose,Whole Blood 227 mg/dL (75-99)
--- NOTE | 2016-04-24 17:16 | P.PN ---
Subjective 70-year-old female patient, presented to the hospital because of worsening shortness of breath, some orthopnea without paroxysmal nocturnal dyspnea. The patient started by having symptoms of upper respiratory checked infection for which she was seen in our office and she received some antibiotic treatment. Back then the patient was complaining of some increased cough with production of greenish sputum and despite antibiotic treatment the patient became more short of breath. No worsening of the lower extremity edema. No fever or chills. Chest x-ray on the time of admission showed CHF exacerbation/ cardiomegaly with increased pulmonary vascular markings and congestion. EKG remained in normal sinus rhythm. The patient had no troponin elevation. Noted the blood pressure the time of admission was quite elevated with initial blood pressure of 204/64 and the patient's pulse ox was around 82% on room air. Clinically the patient is feeling better as the patient's blood pressure improved and is under better control. ProBNP level at time of admission was above 11,000 and the troponins are 0.013, 0.031 and 0.015 respectively 3. This patient is known to have hypertension, diabetes mellitus, hyperlipidemia, asthma and paroxysmal atrial fibrillation. No documented coronary artery disease. In terms of her asthma, the patient is demented on a combination of Advair 115/21 HFA 2 puffs twice a day as baseline and Ventolin rescue inhaler on an as-needed basis. No recurrent exacerbation of her asthma. No previous bouts of ventilator dependent respiratory failure due to asthma exacerbation. The echocardiogram from this current admission shows an ejection fraction of 50- 55%, moderately dilated LA, mild aortic valve sclerosis, moderate degree of pulmonary hypertension with a PA pressures of 46.7 mmHg. She is sending Ran today in follow-up 04/24/2016 on the selective care unit. She is awake and alert in no acute distress. She does admit to breathing easier today as compared to yesterday. She's been up ambulating in the room without acute distress. She is not utilizing BiPAP the past 24 hours. She is maintaining O2 saturations in the low 90s on 2 L/m per nasal cannula. Objective - Vital Signs Vital signs: Vital Signs Temp 97.2 F L 04/24/16 03:59 Pulse 67 04/24/16 16:00 Resp 20 04/24/16 16:00 BP 122/60 04/24/16 16:00 Pulse Ox 90 L 04/24/16 16:00 Intake & Output 04/23/16 04/24/16 04/24/16 18:59 06:59 18:59 Intake Total 100 480 Output Total 1800 2400 Balance 100 -1320 -2400 Weight 103.1 kg 99.8 kg Intake: IV 0 Sodium Chloride 0.9% 1, 0 000 ml @ 100 mls/hr IV . Q10H STA Rx#:[id number] Oral 100 480 Output: Urine 1800 2400 Other: Voiding Method Bedside Commode Bedside Commode # Voids 2 # Bowel Movements 1 - Exam Head exam was generally normal. There was no scleral icterus or corneal arcus. Mucous membranes were moist.Normal neck lungs sounds are diminished bilaterally along with some few scattered expiratory wheezes and few crackles at lung bases bilaterally.Cardiac exam revealed the PMI to be normally situated and sized. The rhythm was regular and no extrasystoles were noted during several minutes of auscultation. The first and second heart sounds were normal and physiologic splitting of the second heart sound was noted. There were no murmurs, rubs, clicks, or gallops.Abdominal exam revealed normal bowel sounds. The abdomen was soft, non-tender, and without masses, organomegaly, or appreciable enlargement of the abdominal aorta.Examination of the extremities revealed easily palpable radial, femoral and pedal pulses. There was no cyanosis, clubbing or edema. - Labs CBC & Chem 7: 04/22/16 18:30 04/24/16 06:04 Labs: Abnormal Lab Results - Last 24 Hours (Table) 04/23/16 04/24/16 04/24/16 Range/Units 21:05 06:04 06:06 PT 43.5 H (9.0-12.0) sec Chloride 93 L (98-107) mmol/L Carbon Dioxide 35 H (22-30) mmol/L BUN 35 H (7-17) mg/dL Glucose 231 H (74-99) mg/dL POC Glucose (mg/dL) 260 H (75-99) mg/dL 04/24/16 04/24/16 04/24/16 Range/Units 06:39 12:12 16:52 PT (9.0-12.0) sec Chloride (98-107) mmol/L Carbon Dioxide (22-30) mmol/L BUN (7-17) mg/dL Glucose (74-99) mg/dL POC Glucose (mg/dL) 206 H 235 H 227 H (75-99) mg/dL Assessment and Plan Plan: Impression: 1 acute exacerbation of chronic diastolic congestive heart failure, improving. 2 asthma exacerbation secondary to upper respiratory checked infection, currently inactive in stable. Rule out underlying tracheal bronchitis 3 paroxysmal defibrillation currently controlled rate in the patient's PT/INR is therapeutic 4 hypertension with poorly controlled blood pressure at time of admission, under poor control for the time being and medication adjustments need to be further done and this will be further discussed with cardiology 5 diabetes mellitus 6 hyperlipidemia 7 mild coronary artery disease based on a previous cardiac catheterization at was done 2013 8 troponin leak Plan: The patient was seen and evaluated by Dr. Owens. She continues to improve daily. We'll continue with her current bronchodilators. Her blood glucose levels have improved. We'll continue with her IV Solu medrol and plan for prednisone taper starting a.m. Continue diuretics. She is educated regarding importance of controlled blood pressure and her medications will be adjusted accordingly. We will increase activity as tolerated. We'll continue to follow make further recommendations based on her clinical status.
[2016-04-24] MEDS: INSULIN DETEMIR 100 UNIT/ML 10 ML VIAL SQ SCH (17:30)
[2016-04-24 21:27] LABS: Glucose,Whole Blood 193 mg/dL (75-99)
[2016-04-25] MEDS: methylPREDNISolone SOD SUCCI 40 MG/ML 1 ML VIAL IV SCH ×4 (01:08→23:38)
[2016-04-25] MEDS: guaiFENesin 600 MG TABLET.ER PO SCH ×3 (01:08→19:40)
[2016-04-25] MEDS: LISINOPRIL 20 MG TAB PO SCH ×3 (01:51→19:40)
[2016-04-25] MEDS: hydrALAZINE HCL 50 MG TAB PO SCH ×4 (01:51→21:26)
[2016-04-25 06:26] LABS: Glucose,Whole Blood 95 mg/dL (75-99)
[2016-04-25] MEDS: INSULIN LISPRO (humaLOG) 300 UNIT/3 ML VIAL SQ SCH ×4 (06:50→21:26)
--- NOTE | 2016-04-25 08:09 | PN ---
DATE OF SERVICE: 04/24/2016 PRESENTING COMPLAINT: Short of breath, wheezing. INTERVAL HISTORY: This is a patient admitted with asthma and CHF exacerbation. Air entry is a bit better. Feeling a little bit better, but still wheezing and rattly in the chest. Got a cough. Did tolerate some diet. Review of systems done for constitutional, cardiovascular, GI, pulmonary; relevant findings as above. Current medications are reviewed that include nebulized bronchodilators, p.o. Lasix, IV Solu-Medrol. On examination, temperature 98.3, pulse 78, respirations 18, blood pressure 122/60, pulse ox 90% on 2 L. GENERAL APPEARANCE: Sitting up, not in distress. EYES: Pupils equal. Conjunctivae normal. NECK: JVD not raised. Mass not palpable. RESPIRATORY: Effort increased. LUNGS: Diminished breath sounds, prolonged expiration with expiratory crackles. CARDIOVASCULAR: First and second sounds normal. No edema. ABDOMEN: Soft. Liver and spleen not palpable. PSYCHIATRY: Alert and oriented x3. Mood and affect normal. INVESTIGATIONS: Potassium 4.2. BUN 35, creatinine 0.80. INR 4.4. Troponin 0.015. The 2-D echo shows EF 50% to 55%. ASSESSMENT: 1. Acute on chronic congestive heart failure exacerbation from diastolic dysfunction, ejection fraction 55% to 60% from underlying hypertensive heart disease, now compensated. 2. Moderate persistent asthma with acute exacerbation, slow to respond. 3. Diabetes mellitus type 2 on oral hypoglycemic. 4. Essential hypertension. 5. Primary osteoarthritis of multiple joints, bilaterally. 6. Depression, not otherwise specified. 7. Persistent atrial fibrillation, chronically on Coumadin. PLAN: Continue current medication and treatment plan. Will add Mucinex. Care was discussed with the patient. Will follow.
[2016-04-25 08:24] LABS: INR 4.1 (<1.1); Prothrombin Time 40.1 sec (9.0-12.0)
[2016-04-25 08:25] LABS: CH 25.9; HDW 2.78; HGB 14.9 gm/dL (11.4-16.0); MCH 25.7 pg (25.0-35.0); MCHC 31.6 g/dL (31.0-37.0); MCV 81.4 fL (80.0-100.0); Mean Platelet Volume 7.5; RBC 5.77 m/uL (3.80-5.40); RDW 15.4 % (11.5-15.5); WBC 13.5 k/uL (3.8-10.6)
[2016-04-25 08:29] LABS: Anion Gap 10 mmol/L; Blood Urea Nitrogen 39 mg/dL (7-17); Calcium 9.2 mg/dL (8.4-10.2); Carbon Dioxide 38 mmol/L (22-30); Chloride 95 mmol/L (98-107); Glucose 137 mg/dL (74-99); Non-African American GFR(MDRD) >60 (>60 ml/min/1.73 sqM); Potassium 4.5 mmol/L (3.5-5.1); Sodium 143 mmol/L (137-145)
[2016-04-25] MEDS: METOPROLOL TARTRATE 25 MG TAB PO SCH ×2 (08:30→19:40)
[2016-04-25] MEDS: BRIMONIDINE TARTRATE 0.2% DROPS 5 ML BTL LEFT EYE SCH (08:31)
[2016-04-25] MEDS: MULTIVITAMINS, THERA 1 EACH TAB PO SCH (08:31)
[2016-04-25] MEDS: FUROSEMIDE 40 MG TAB PO SCH ×2 (08:31→16:24)
[2016-04-25] MEDS: ASPIRIN 81 MG CHEW PO SCH (08:31)
[2016-04-25] MEDS: TIMOLOL 0.5% OPHTH DROPS 5 ML BTL LEFT EYE SCH (08:31)
[2016-04-25] MEDS: GABAPENTIN 300 MG CAP PO SCH ×2 (08:32→19:40)
[2016-04-25] MEDS: MAGNESIUM OXIDE 400 MG TAB PO SCH (08:33)
[2016-04-25] MEDS: FERROUS SULFATE 325 MG TAB PO SCH (08:33)
[2016-04-25] MEDS: SERTRALINE 100 MG TAB PO SCH (08:33)
[2016-04-25] MEDS: LORATADINE 10 MG TAB PO SCH (08:33)
[2016-04-25] MEDS: FAMOTIDINE 20 MG TAB PO SCH (08:33)
[2016-04-25] MEDS: metFORMIN 500 MG TAB PO SCH (08:33)
[2016-04-25] MEDS: IPRATROPIUM-ALBUTEROL 3 ML NEB INHALATION SCH ×4 (08:57→20:44)
[2016-04-25] MEDS: SYMBICORT 160-4.5 MCG INHALER INHALATION SCH ×3 (08:57→20:54)
[2016-04-25 12:02] LABS: Glucose,Whole Blood 156 mg/dL (75-99)
[2016-04-25] MEDS: SODIUM CHLORIDE 5% OPHTH OINT 3.5 GM TUBE LEFT EYE SCH (12:54)
--- NOTE | 2016-04-25 14:18 | P.PN ---
Subjective Principal diagnosis: Shortness of breath This is a 70-year-old female who follows regularly with Dr. Mauro in the office. She has a known history of diabetes, hypertension, hyperlipidemia, paroxysmal atrial fibrillation, asthma, presented to the hospital with symptoms of shortness of breath with associated productive cough of green sputum. He is currently being treated for exacerbation of COPD along with chronic bronchitis. Patient did have an element of diastolic congestive heart failure on admission here also and diuresed well on IV Lasix. Currently on heel Lasix. She had accelerated hypertension on admission, medication adjustments have been made. Blood pressure this morning 190/80. We will add Norvasc to the patient' s medication regime for more optimal blood pressure control. She is feeling better, continues to have a persistent productive cough. Objective - Vital Signs Vital signs: Vital Signs Temp 97.1 F L 04/25/16 08:00 Pulse 63 04/25/16 12:00 Resp 18 04/25/16 12:00 BP 191/72 04/25/16 12:00 Pulse Ox 94 L 04/25/16 08:00 Intake & Output 04/24/16 04/25/16 04/25/16 18:59 06:59 18:59 Intake Total 180 660 Output Total 3200 1200 Balance -3020 -1200 660 Weight 98.7 kg Intake: Oral 180 660 Output: Urine 3200 1200 Other: Voiding Method Bedside Commode - Exam PHYSICAL EXAMINATION: HEENT: [Head is atraumatic, normocephalic. Pupils equal, round. Neck is supple. There is no elevated jugular venous pressure.] HEART EXAMINATION: S1 and S2 irregular irregular CHEST EXAMINATION: Lungs reveal scattered coarse wheezing throughout. ABDOMEN: [ Soft, nontender. Bowel sounds are heard. No organomegaly noted]. EXTREMITIES:[ 2+ peripheral pulses with trace evidence of peripheral edema and no calf tenderness noted]. NEUROLOGIC [patient is awake, alert and oriented -3.] . - Labs CBC & Chem 7: 04/25/16 07:53 04/25/16 07:53 Labs: Abnormal Lab Results - Last 24 Hours (Table) 04/24/16 04/24/16 04/25/16 Range/Units 16:52 21:16 07:46 WBC (3.8-10.6) k/uL RBC (3.80-5.40) m/uL Hct (34.0-46.0) % PT 40.1 H (9.0-12.0) sec Chloride (98-107) mmol/L Carbon Dioxide (22-30) mmol/L BUN (7-17) mg/dL Glucose (74-99) mg/dL POC Glucose (mg/dL) 227 H 193 H (75-99) mg/dL 04/25/16 04/25/16 04/25/16 Range/Units 07:53 07:53 12:01 WBC 13.5 H (3.8-10.6) k/uL RBC 5.77 H (3.80-5.40) m/uL Hct 47.0 H (34.0-46.0) % PT (9.0-12.0) sec Chloride 95 L (98-107) mmol/L Carbon Dioxide 38 H (22-30) mmol/L BUN 39 H (7-17) mg/dL Glucose 137 H (74-99) mg/dL POC Glucose (mg/dL) 156 H (75-99) mg/dL Assessment and Plan Plan: Assessment and plan #1 symptoms of chest congestion with associated productive cough of green sputum , suggestive of possible tracheobronchitis, with exacerbation of patient currently on IV antibiotics #2 exacerbation of congestive heart failure, likely diastolic in nature, most recent echocardiogram with Doppler study was performed in August 2014 which revealed an ejection fraction of 50-55%. #3 paroxysmal atrial fibrillation, on Coumadin, INR 4.4 today #4 accelerated hypertension #5 diabetes #6 hyperlipidemia #7 history of asthma #8 no significant obstructive coronary artery disease by cardiac catheterization performed in 2013 #9 hypomagnesemia Plan Echocardiogram with Doppler study revealed an ejection fraction of 50-55%. Mild to moderate tricuspid regurg. We will add Norvasc 5 mg daily to the patient's medication regime for more optimal blood pressure control. DNP note has been reviewed, I agree with a documented findings and plan of care. Patient was seen and examined.
--- NOTE | 2016-04-25 15:42 | P.PN ---
Subjective 70-year-old female patient, presented to the hospital because of worsening shortness of breath, some orthopnea without paroxysmal nocturnal dyspnea. The patient started by having symptoms of upper respiratory checked infection for which she was seen in our office and she received some antibiotic treatment. Back then the patient was complaining of some increased cough with production of greenish sputum and despite antibiotic treatment the patient became more short of breath. No worsening of the lower extremity edema. No fever or chills. Chest x-ray on the time of admission showed CHF exacerbation/ cardiomegaly with increased pulmonary vascular markings and congestion. EKG remained in normal sinus rhythm. The patient had no troponin elevation. Noted the blood pressure the time of admission was quite elevated with initial blood pressure of 204/64 and the patient's pulse ox was around 82% on room air. Clinically the patient is feeling better as the patient's blood pressure improved and is under better control. ProBNP level at time of admission was above 11,000 and the troponins are 0.013, 0.031 and 0.015 respectively 3. This patient is known to have hypertension, diabetes mellitus, hyperlipidemia, asthma and paroxysmal atrial fibrillation. No documented coronary artery disease. In terms of her asthma, the patient is demented on a combination of Advair 115/21 HFA 2 puffs twice a day as baseline and Ventolin rescue inhaler on an as-needed basis. No recurrent exacerbation of her asthma. No previous bouts of ventilator dependent respiratory failure due to asthma exacerbation. The echocardiogram from this current admission shows an ejection fraction of 50- 55%, moderately dilated LA, mild aortic valve sclerosis, moderate degree of pulmonary hypertension with a PA pressures of 46.7 mmHg. She is sending Ran today in follow-up 04/24/2016 on the selective care unit. She is awake and alert in no acute distress. She does admit to breathing easier today as compared to yesterday. She's been up ambulating in the room without acute distress. She is not utilizing BiPAP the past 24 hours. She is maintaining O2 saturations in the low 90s on 2 L/m per nasal cannula. On 04/25/2016 the patient is being seen in follow-up. She still short of breath. Her chest is congested and she is slightly bronchospastic and wheezy. She is getting short of breath with limited amount of activity. No fever. No chills. No night sweats. The patient is still on IV Solu Medrol 40 mg every 8 hours. The patient is also receiving Lasix which has been switched to oral 40 mg by mouth twice a day. Objective - Vital Signs Vital signs: Vital Signs Temp 97.1 F L 04/25/16 08:00 Pulse 78 04/25/16 15:19 Resp 18 04/25/16 12:00 BP 191/72 04/25/16 12:00 Pulse Ox 94 L 04/25/16 08:00 Intake & Output 04/24/16 04/25/16 04/25/16 18:59 06:59 18:59 Intake Total 180 960 Output Total 3200 1200 Balance -3020 -1200 960 Weight 98.7 kg Intake: Oral 180 960 Output: Urine 3200 1200 Other: Voiding Method Bedside Commode - Exam Head exam was generally normal. There was no scleral icterus or corneal arcus. Mucous membranes were moist.Neck was supple and without jugular venous distension, thyromegaly, or carotid bruits. Carotids were easily palpable bilaterally. There was no adenopathy. Lung sounds are diminished bilaterally along with some scattered expiratory wheezes without the lung aly.Cardiac exam revealed the PMI to be normally situated and sized. The rhythm was regular and no extrasystoles were noted during several minutes of auscultation. The first and second heart sounds were normal and physiologic splitting of the second heart sound was noted. There were no murmurs, rubs, clicks, or gallops. Abdominal exam revealed normal bowel sounds. The abdomen was soft, non-tender, and without masses, organomegaly, or appreciable enlargement of the abdominal aorta. extremities show some varicose veins in lower extremity is bilaterally otherwise there is no significant edema cyanosis or clubbing. - Labs CBC & Chem 7: 04/25/16 07:53 04/25/16 07:53 Labs: Abnormal Lab Results - Last 24 Hours (Table) 04/24/16 04/24/16 04/25/16 Range/Units 16:52 21:16 07:46 WBC (3.8-10.6) k/uL RBC (3.80-5.40) m/uL Hct (34.0-46.0) % PT 40.1 H (9.0-12.0) sec Chloride (98-107) mmol/L Carbon Dioxide (22-30) mmol/L BUN (7-17) mg/dL Glucose (74-99) mg/dL POC Glucose (mg/dL) 227 H 193 H (75-99) mg/dL 04/25/16 04/25/16 04/25/16 Range/Units 07:53 07:53 12:01 WBC 13.5 H (3.8-10.6) k/uL RBC 5.77 H (3.80-5.40) m/uL Hct 47.0 H (34.0-46.0) % PT (9.0-12.0) sec Chloride 95 L (98-107) mmol/L Carbon Dioxide 38 H (22-30) mmol/L BUN 39 H (7-17) mg/dL Glucose 137 H (74-99) mg/dL POC Glucose (mg/dL) 156 H (75-99) mg/dL Assessment and Plan Plan: Assessment 1 acute CHF/diastolic dysfunction, improving 2 asthma exacerbation secondary to upper respiratory checked infection, currently inactive in stable. Rule out underlying tracheal bronchitis 3 paroxysmal atrial fibrillation 4 hypertension with poorly controlled blood pressure at time of admission, under poor control for the time being and medication adjustments need to be further done and this will be further discussed with cardiology 5 diabetes mellitus 6 hyperlipidemia 7 mild coronary artery disease based on a previous cardiac catheterization at was done 2013 8 troponin leak Plan Into same treatment for another 24 hours. Lasix has been switched to oral. Anterior bronchodilators and systemic steroids for another 24 hours. No, the for today, as the level is supratherapeutic. We'll continue to follow.
[2016-04-25 17:33] LABS: Glucose,Whole Blood 185 mg/dL (75-99)
[2016-04-25] MEDS: INSULIN DETEMIR 100 UNIT/ML 10 ML VIAL SQ SCH (17:43)
[2016-04-25] MEDS: BUDESONIDE 1 MG/2 ML NEBU INHALATION SCH (20:55)
[2016-04-25 21:02] LABS: Glucose,Whole Blood 234 mg/dL (75-99)
[2016-04-25] MEDS: amLODIPine 5 MG TAB PO SCH (21:26)
[2016-04-26 05:56] LABS: Glucose,Whole Blood 130 mg/dL (75-99)
[2016-04-26] MEDS: INSULIN LISPRO (humaLOG) 300 UNIT/3 ML VIAL SQ SCH ×4 (06:18→22:52)
--- NOTE | 2016-04-26 06:39 | PN ---
DATE OF SERVICE: 04/25/2016 PRESENTING COMPLAINT: Short of breath, wheezing, cough. INTERVAL HISTORY: This patient presented with asthma and CHF exacerbation. Still somewhat congested though shade better. Short of breath, still bringing up some sputum. Review of systems done for constitutional, cardiovascular, GI, pulmonary; relevant findings as above. Current medications are reviewed that include nebulized bronchodilator, Solu-Medrol. On examination, temperature 97.8, pulse 60, respiration 18, blood pressure 214/84, before that 165/79. GENERAL APPEARANCE: Sitting up, tired appearing. EYES: Pupils equal Conjunctivae normal. NECK: JVD not raised. Mass not palpable. RESPIRATORY: Effort increased. LUNGS: Diminished breath sounds, prolonged expiration, occasional crackles. CARDIOVASCULAR: First and second sounds normal. No edema. ABDOMEN: Soft, nontender. Liver and spleen not palpable. PSYCHIATRY: Alert and oriented x3. Mood and affect normal. INVESTIGATIONS: White count 13.5. Potassium 4.5. BUN 39, creatinine 0.83. ASSESSMENT: 1. Acute on chronic congestive heart failure exacerbation from diastolic dysfunction, ejection fraction 55% to 60% from underlying hypertensive heart disease. 2. Moderate persistent asthma with acute exacerbation, slow to respond. 3. Diabetes mellitus type 2 on oral hypoglycemic. 4. Essential hypertension, uncontrolled. 5. Primary osteoarthritis of multiple joints bilaterally. 6. Depression, not otherwise specified. 7. Persistent atrial fibrillation, chronically on Coumadin. PLAN: Continue current continue medication and treatment plan. Will add nebulized steroids. ( ) Cardizem and Norvasc was added by Cardiology earlier today. I will go ahead and order the same.
[2016-04-26] MEDS: methylPREDNISolone SOD SUCCI 40 MG/ML 1 ML VIAL IV SCH ×2 (08:33→18:00)
[2016-04-26] MEDS: amLODIPine 5 MG TAB PO SCH (08:34)
[2016-04-26] MEDS: ASPIRIN 81 MG CHEW PO SCH (08:34)
[2016-04-26] MEDS: BRIMONIDINE TARTRATE 0.2% DROPS 5 ML BTL LEFT EYE SCH (08:34)
[2016-04-26] MEDS: TIMOLOL 0.5% OPHTH DROPS 5 ML BTL LEFT EYE SCH (08:34)
[2016-04-26] MEDS: FERROUS SULFATE 325 MG TAB PO SCH (08:35)
[2016-04-26] MEDS: FUROSEMIDE 40 MG TAB PO SCH ×2 (08:35→17:53)
[2016-04-26] MEDS: GABAPENTIN 300 MG CAP PO SCH ×2 (08:35→22:50)
[2016-04-26] MEDS: LORATADINE 10 MG TAB PO SCH (08:36)
[2016-04-26] MEDS: guaiFENesin 600 MG TABLET.ER PO SCH ×2 (08:36→22:50)
[2016-04-26] MEDS: MAGNESIUM OXIDE 400 MG TAB PO SCH (08:36)
[2016-04-26] MEDS: METOPROLOL TARTRATE 25 MG TAB PO SCH (08:36)
[2016-04-26] MEDS: FAMOTIDINE 20 MG TAB PO SCH (08:36)
[2016-04-26] MEDS: LISINOPRIL 20 MG TAB PO SCH ×2 (08:36→22:51)
[2016-04-26] MEDS: metFORMIN 500 MG TAB PO SCH (08:36)
[2016-04-26] MEDS: hydrALAZINE HCL 50 MG TAB PO SCH ×2 (08:36→16:00)
[2016-04-26] MEDS: MULTIVITAMINS, THERA 1 EACH TAB PO SCH (08:37)
[2016-04-26] MEDS: SERTRALINE 100 MG TAB PO SCH (08:37)
[2016-04-26] MEDS: BUDESONIDE 1 MG/2 ML NEBU INHALATION SCH ×2 (09:24→20:59)
[2016-04-26] MEDS: IPRATROPIUM-ALBUTEROL 3 ML NEB INHALATION SCH ×4 (09:24→21:00)
[2016-04-26] MEDS ORDERED: amLODIPine 5 MG TAB PO STA (10:24)
[2016-04-26 11:49] LABS: Glucose,Whole Blood 234 mg/dL (75-99)
[2016-04-26] MEDS: SODIUM CHLORIDE 5% OPHTH OINT 3.5 GM TUBE LEFT EYE SCH (12:14)
--- NOTE | 2016-04-26 12:41 | P.PN ---
Subjective Principal diagnosis: Shortness of breath This is a 70-year-old female who follows regularly with Dr. Mauro in the office. She has a known history of diabetes, hypertension, hyperlipidemia, paroxysmal atrial fibrillation, asthma, presented to the hospital with symptoms of shortness of breath with associated productive cough of green sputum. He is currently being treated for exacerbation of COPD along with chronic bronchitis. Patient did have an element of diastolic congestive heart failure on admission here also and diuresed well on IV Lasix. Currently on PO Lasix. She had accelerated hypertension on admission, medication adjustments have been made. Blood pressure this morning 190/80 again this morning. Heart rate at times noted to be in the 40s, heart rate does tow picker with activity. We will increase the dose of Norvasc to 10 mg daily today. Objective - Vital Signs Vital signs: Vital Signs Temp 96.4 F L 04/26/16 08:00 Pulse 68 04/26/16 12:35 Resp 19 04/26/16 04:00 BP 177/73 04/26/16 08:00 Pulse Ox 93 L 04/26/16 09:26 Intake & Output 04/25/16 04/26/16 04/26/16 18:59 06:59 18:59 Intake Total 1260 780 120 Output Total 1200 4500 Balance 60 -3720 120 Weight 97.7 kg Intake: Oral 1260 780 120 Output: Urine 1200 4500 Other: Voiding Method Bedside Commode Bedside Commode # Voids 1 - Exam PHYSICAL EXAMINATION: HEENT: [Head is atraumatic, normocephalic. Pupils equal, round. Neck is supple. There is no elevated jugular venous pressure.] HEART EXAMINATION: S1 and S2 irregular irregular CHEST EXAMINATION: Lungs reveal scattered coarse wheezing throughout. ABDOMEN: [ Soft, nontender. Bowel sounds are heard. No organomegaly noted]. EXTREMITIES:[ 2+ peripheral pulses with trace evidence of peripheral edema and no calf tenderness noted]. NEUROLOGIC [patient is awake, alert and oriented -3.] . - Labs CBC & Chem 7: 04/25/16 07:53 04/25/16 07:53 Labs: Abnormal Lab Results - Last 24 Hours (Table) 04/25/16 04/25/16 04/26/16 Range/Units 17:21 20:58 05:55 POC Glucose (mg/dL) 185 H 234 H 130 H (75-99) mg/dL 04/26/16 Range/Units 11:47 POC Glucose (mg/dL) 234 H (75-99) mg/dL Assessment and Plan Plan: Assessment and plan #1 symptoms of chest congestion with associated productive cough of green sputum , suggestive of possible tracheobronchitis, with exacerbation of patient currently on IV antibiotics #2 exacerbation of congestive heart failure, likely diastolic in nature, most recent echocardiogram with Doppler study was performed in August 2014 which revealed an ejection fraction of 50-55%. #3 paroxysmal atrial fibrillation, on Coumadin, #4 accelerated hypertension #5 diabetes #6 hyperlipidemia #7 history of asthma #8 no significant obstructive coronary artery disease by cardiac catheterization performed in 2013 #9 hypomagnesemia Plan We will increase the dose of Norvasc to 10 mg daily today. Obtain PT/INR. DNP note has been reviewed, I agree with a documented findings and plan of care. Patient was seen and examined.
[2016-04-26 13:15] LABS: INR 2.2 (<1.1)
--- NOTE | 2016-04-26 16:35 | P.PN ---
Subjective 70-year-old female patient, presented to the hospital because of worsening shortness of breath, some orthopnea without paroxysmal nocturnal dyspnea. The patient started by having symptoms of upper respiratory checked infection for which she was seen in our office and she received some antibiotic treatment. Back then the patient was complaining of some increased cough with production of greenish sputum and despite antibiotic treatment the patient became more short of breath. No worsening of the lower extremity edema. No fever or chills. Chest x-ray on the time of admission showed CHF exacerbation/ cardiomegaly with increased pulmonary vascular markings and congestion. EKG remained in normal sinus rhythm. The patient had no troponin elevation. Noted the blood pressure the time of admission was quite elevated with initial blood pressure of 204/64 and the patient's pulse ox was around 82% on room air. Clinically the patient is feeling better as the patient's blood pressure improved and is under better control. ProBNP level at time of admission was above 11,000 and the troponins are 0.013, 0.031 and 0.015 respectively 3. This patient is known to have hypertension, diabetes mellitus, hyperlipidemia, asthma and paroxysmal atrial fibrillation. No documented coronary artery disease. In terms of her asthma, the patient is demented on a combination of Advair 115/21 HFA 2 puffs twice a day as baseline and Ventolin rescue inhaler on an as-needed basis. No recurrent exacerbation of her asthma. No previous bouts of ventilator dependent respiratory failure due to asthma exacerbation. The echocardiogram from this current admission shows an ejection fraction of 50- 55%, moderately dilated LA, mild aortic valve sclerosis, moderate degree of pulmonary hypertension with a PA pressures of 46.7 mmHg. She is seen again today in follow-up 04/24/2016 on the selective care unit. She is awake and alert in no acute distress. She does admit to breathing easier today as compared to yesterday. She's been up ambulating in the room without acute distress. She is not utilizing BiPAP the past 24 hours. She is maintaining O2 saturations in the low 90s on 2 L/m per nasal cannula. She is seen again today 04/26/2016 on the selective care unit. She is awake and alert in no acute distress. She did have an episode of bradycardia while up in a chair. She denied any significant symptoms. No chest pain, dizziness or lightheadedness. She remains in a negative balance. She denies any worsening shortness of breath. She continues with a loose nonproductive cough. No chills or night sweats. She has not required BiPAP. She is on 2 L/m per nasal cannula and maintaining O2 saturations in the 90s. Objective - Vital Signs Vital signs: Vital Signs Temp 96.4 F L 04/26/16 08:00 Pulse 60 04/26/16 15:30 Resp 19 04/26/16 04:00 BP 177/84 04/26/16 12:00 Pulse Ox 93 L 04/26/16 12:00 Intake & Output 04/25/16 04/26/16 04/26/16 18:59 06:59 18:59 Intake Total 1260 780 240 Output Total 1200 4500 400 Balance 60 -3720 -160 Weight 97.7 kg Intake: Oral 1260 780 240 Output: Urine 1200 4500 400 Other: Voiding Method Bedside Commode Bedside Commode # Voids 1 - Exam Head exam was generally normal. There was no scleral icterus or corneal arcus. Mucous membranes were moist.Normal neck lungs sounds are diminished bilaterally along with some few scattered expiratory wheezes and few crackles at lung bases bilaterally.Cardiac exam revealed the PMI to be normally situated and sized. The rhythm was regular and no extrasystoles were noted during several minutes of auscultation. The first and second heart sounds were normal and physiologic splitting of the second heart sound was noted. There were no murmurs, rubs, clicks, or gallops.Abdominal exam revealed normal bowel sounds. The abdomen was soft, non-tender, and without masses, organomegaly, or appreciable enlargement of the abdominal aorta.Examination of the extremities revealed easily palpable radial, femoral and pedal pulses. There was no cyanosis, clubbing or edema. - Labs CBC & Chem 7: 04/25/16 07:53 04/25/16 07:53 Labs: Abnormal Lab Results - Last 24 Hours (Table) 04/25/16 04/25/16 04/26/16 Range/Units 17:21 20:58 05:55 PT (9.0-12.0) sec POC Glucose (mg/dL) 185 H 234 H 130 H (75-99) mg/dL 04/26/16 04/26/16 Range/Units 11:47 12:46 PT 21.0 H (9.0-12.0) sec POC Glucose (mg/dL) 234 H (75-99) mg/dL Assessment and Plan Plan: Impression: 1 acute exacerbation of chronic diastolic congestive heart failure, improving. 2 asthma exacerbation secondary to upper respiratory checked infection, currently inactive in stable. Rule out underlying tracheal bronchitis 3 paroxysmal defibrillation currently controlled rate in the patient's PT/INR is therapeutic 4 hypertension with poorly controlled blood pressure at time of admission, under poor control for the time being and medication adjustments need to be further done and this will be further discussed with cardiology 5 diabetes mellitus 6 hyperlipidemia 7 mild coronary artery disease based on a previous cardiac catheterization at was done 2013 8 troponin leak Plan: The patient was seen and evaluated by Dr. Owens. She continues to improve daily. We'll continue with her current bronchodilators. Her blood glucose levels have improved. We will convert her from IV Solu-Medrol to prednisone taper. Cardiology is on the case regarding her bradycardia arrhythmias. Continue diuretics. We will increase activity as tolerated. We'll continue to follow make further recommendations based on her clinical status.
[2016-04-26 16:42] LABS: Glucose,Whole Blood 119 mg/dL (75-99)
[2016-04-26] MEDS: INSULIN DETEMIR 100 UNIT/ML 10 ML VIAL SQ SCH (17:57)
--- NOTE | 2016-04-26 19:44 | PN ---
DATE OF SERVICE: 04/26/2016 PRESENTING COMPLAINT: Short of breath, wheezing, decreased heart rate. INTERVAL HISTORY: This patient presented with asthma exacerbation and CHF exacerbation. Still somewhat congested, wheezing. Patient earlier started having junctional rhythm and also dropped the heart rate down to the 40s, lingering around 50s now. Patient has been on beta alexis. Earlier today Norvasc was added. Blood pressure was running high. The patient is still feeling weak and tired. REVIEW OF SYSTEMS: Done for constitutional, cardiovascular, GI, pulmonary; relevant findings as above. Current medications are reviewed that include: 1. Norvasc 10 mg a day. 2. Lopressor 25 b.i.d. 3. IV Solu-Medrol. 4. Bronchodilators. 5. Hydralazine 50 mg p.o. t.i.d. On examination, temperature 97.1, pulse 55, respirations 18, blood pressure 192/79, pulse ox 94% on 2 liters. GENERAL APPEARANCE: Sitting upright normal. NECK: JVD not raised. Mass not palpable. RESPIRATORY: Effort increased. LUNGS: Decreased breath sounds. Prolonged expiration and wheezing still present. CARDIOVASCULAR: First and second sounds normal. Edema, mild. ABDOMEN: Soft, nontender. Liver and spleen not palpable. PSYCHIATRY: Alert and oriented. Mood and affect is normal. INVESTIGATIONS: Accu-Cheks are noted. INR is 2.2. ASSESSMENT: 1. Acute on chronic congestive heart failure exacerbation from diastolic dysfunction, ejection fraction 55% to 60%, from underlying hypertensive heart disease. 2. Moderate persistent asthma with acute exacerbation, slow to respond. 3. Diabetes mellitus type 2, on oral hypoglycemic. 4. Essential hypertension, remains uncontrolled. 5. Primary osteoarthritis of multiple joints bilaterally. 6. Depression, not otherwise specified. 7. Persistent atrial fibrillation, chronically on Coumadin. 8. Decreased heart rate and junctional rhythm. PLAN: Since the patient has dropped heart rate significantly, we will cut back on Lopressor to 25 every 8 from 25 twice a day. We will also increase the hydralazine to 75 mg 3 times a day. Continue current medication and treatment plan. Care was discussed with the patient.
[2016-04-26 20:49] LABS: Glucose,Whole Blood 258 mg/dL (75-99)
[2016-04-26] MEDS: hydrALAZINE HCL 25 MG TAB PO SCH (22:51)
[2016-04-26] MEDS: METOPROLOL TARTRATE 12.5 MG TAB PO SCH (22:52)
[2016-04-27 06:46] LABS: INR 1.7 (<1.1); Prothrombin Time 16.6 sec (9.0-12.0)
[2016-04-27 06:56] LABS: Glucose,Whole Blood 39 mg/dL (75-99)
[2016-04-27 07:10] LABS: Glucose,Whole Blood 80 mg/dL (75-99)
[2016-04-27] MEDS: BUDESONIDE 1 MG/2 ML NEBU INHALATION SCH ×2 (08:38→20:46)
[2016-04-27] MEDS: IPRATROPIUM-ALBUTEROL 3 ML NEB INHALATION SCH ×4 (08:39→20:46)
[2016-04-27] MEDS: INSULIN LISPRO (humaLOG) 300 UNIT/3 ML VIAL SQ SCH ×4 (10:28→21:43)
[2016-04-27] MEDS: MULTIVITAMINS, THERA 1 EACH TAB PO SCH (10:36)
[2016-04-27] MEDS: metFORMIN 500 MG TAB PO SCH (10:36)
[2016-04-27] MEDS: SERTRALINE 100 MG TAB PO SCH (10:36)
[2016-04-27] MEDS: predniSONE 20 MG TAB PO SCH (10:37)
[2016-04-27] MEDS: METOPROLOL TARTRATE 12.5 MG TAB PO SCH ×3 (10:37→21:45)
[2016-04-27] MEDS: FAMOTIDINE 20 MG TAB PO SCH (10:37)
[2016-04-27] MEDS: MAGNESIUM OXIDE 400 MG TAB PO SCH (10:37)
[2016-04-27] MEDS: LISINOPRIL 20 MG TAB PO SCH ×2 (10:37→21:44)
[2016-04-27] MEDS: LORATADINE 10 MG TAB PO SCH (10:37)
[2016-04-27] MEDS: GABAPENTIN 300 MG CAP PO SCH ×2 (10:38→21:43)
[2016-04-27] MEDS: FERROUS SULFATE 325 MG TAB PO SCH (10:38)
[2016-04-27] MEDS: FUROSEMIDE 40 MG TAB PO SCH ×2 (10:38→17:32)
[2016-04-27] MEDS: ASPIRIN 81 MG CHEW PO SCH (10:38)
[2016-04-27] MEDS: amLODIPine 10 MG TAB PO SCH (10:38)
[2016-04-27] MEDS: TIMOLOL 0.5% OPHTH DROPS 5 ML BTL LEFT EYE SCH (10:39)
[2016-04-27] MEDS: guaiFENesin 600 MG TABLET.ER PO SCH ×2 (10:39→21:43)
[2016-04-27] MEDS: hydrALAZINE HCL 25 MG TAB PO SCH ×3 (10:39→21:44)
[2016-04-27] MEDS: BRIMONIDINE TARTRATE 0.2% DROPS 5 ML BTL LEFT EYE SCH (10:40)
[2016-04-27 11:30] LABS: Glucose,Whole Blood 207 mg/dL (75-99)
--- NOTE | 2016-04-27 15:50 | P.PN ---
Subjective 70-year-old female patient, presented to the hospital because of worsening shortness of breath, some orthopnea without paroxysmal nocturnal dyspnea. The patient started by having symptoms of upper respiratory checked infection for which she was seen in our office and she received some antibiotic treatment. Back then the patient was complaining of some increased cough with production of greenish sputum and despite antibiotic treatment the patient became more short of breath. No worsening of the lower extremity edema. No fever or chills. Chest x-ray on the time of admission showed CHF exacerbation/ cardiomegaly with increased pulmonary vascular markings and congestion. EKG remained in normal sinus rhythm. The patient had no troponin elevation. Noted the blood pressure the time of admission was quite elevated with initial blood pressure of 204/64 and the patient's pulse ox was around 82% on room air. Clinically the patient is feeling better as the patient's blood pressure improved and is under better control. ProBNP level at time of admission was above 11,000 and the troponins are 0.013, 0.031 and 0.015 respectively 3. This patient is known to have hypertension, diabetes mellitus, hyperlipidemia, asthma and paroxysmal atrial fibrillation. No documented coronary artery disease. In terms of her asthma, the patient is demented on a combination of Advair 115/21 HFA 2 puffs twice a day as baseline and Ventolin rescue inhaler on an as-needed basis. No recurrent exacerbation of her asthma. No previous bouts of ventilator dependent respiratory failure due to asthma exacerbation. The echocardiogram from this current admission shows an ejection fraction of 50- 55%, moderately dilated LA, mild aortic valve sclerosis, moderate degree of pulmonary hypertension with a PA pressures of 46.7 mmHg. She is seen again today in follow-up 04/24/2016 on the selective care unit. She is awake and alert in no acute distress. She does admit to breathing easier today as compared to yesterday. She's been up ambulating in the room without acute distress. She is not utilizing BiPAP the past 24 hours. She is maintaining O2 saturations in the low 90s on 2 L/m per nasal cannula. She is seen again today 04/26/2016 on the selective care unit. She is awake and alert in no acute distress. She did have an episode of bradycardia while up in a chair. She denied any significant symptoms. No chest pain, dizziness or lightheadedness. She remains in a negative balance. She denies any worsening shortness of breath. She continues with a loose nonproductive cough. No chills or night sweats. She has not required BiPAP. She is on 2 L/m per nasal cannula and maintaining O2 saturations in the 90s. The patient is seen again today 04/27/2016 in follow-up on the selective care unit. She is currently sitting up in the chair at the bedside. She states she is breathing easier today as compared to yesterday but not quite back to her baseline. She is still dyspneic on minimal exertion. She has had some complaints of bilateral upper arm discomfort that lasted approximately 10 minutes. Cardiology is on the case as well. No noted recurrence of the bradycardia arrhythmias. Objective - Vital Signs Vital signs: Vital Signs Temp 97.4 F L 04/27/16 12:00 Pulse 43 L 04/27/16 12:00 Resp 18 04/27/16 12:00 BP 119/58 04/27/16 12:00 Pulse Ox 96 04/27/16 12:00 Intake & Output 04/26/16 04/27/16 04/27/16 18:59 06:59 18:59 Intake Total 460 720 Output Total 400 1650 400 Balance 60 -1650 320 Weight 98.3 kg Intake: Oral 460 720 Output: Urine 400 1650 400 Other: Voiding Method Bedside Commode Bedside Commode # Voids 1 1 # Bowel Movements 1 - Exam Head exam was generally normal. There was no scleral icterus or corneal arcus. Mucous membranes were moist.Normal neck lungs sounds are diminished bilaterally along with some few scattered expiratory wheezes and few crackles at lung bases bilaterally.Cardiac exam revealed the PMI to be normally situated and sized. The rhythm was regular and no extrasystoles were noted during several minutes of auscultation. The first and second heart sounds were normal and physiologic splitting of the second heart sound was noted. There were no murmurs, rubs, clicks, or gallops.Abdominal exam revealed normal bowel sounds. The abdomen was soft, non-tender, and without masses, organomegaly, or appreciable enlargement of the abdominal aorta.Examination of the extremities revealed easily palpable radial, femoral and pedal pulses. There was no cyanosis, clubbing or edema. - Labs CBC & Chem 7: 04/25/16 07:53 04/25/16 07:53 Labs: Abnormal Lab Results - Last 24 Hours (Table) 04/26/16 04/26/16 04/27/16 Range/Units 16:40 20:37 06:06 PT 16.6 H (9.0-12.0) sec POC Glucose (mg/dL) 119 H 258 H (75-99) mg/dL 04/27/16 04/27/16 Range/Units 06:47 11:23 PT (9.0-12.0) sec POC Glucose (mg/dL) 39 L 207 H (75-99) mg/dL Assessment and Plan Plan: Impression: 1 acute exacerbation of chronic diastolic congestive heart failure, improving. 2 acute exacerbation of mild persistent asthma secondary to acute tracheobronchitis. 3 paroxysmal defibrillation currently controlled rate in the patient's PT/INR is therapeutic 4 hypertension with poorly controlled blood pressure at time of admission, under poor control for the time being and medication adjustments need to be further done and this will be further discussed with cardiology 5 diabetes mellitus 6 hyperlipidemia 7 mild coronary artery disease based on a previous cardiac catheterization at was done 2013 8 troponin leak Plan: The patient was seen and evaluated by Dr. Owens. She has been slow to progress but continues to improve daily. We will continue her current medications including bronchodilators 4 times a day and when necessary, Pulmicort inhalations twice a day, Mucinex and a prednisone taper. She is being diuresed as well. We will increase her activity as tolerated. We'll continue to follow and make further recommendations based on her clinical status.
[2016-04-27 16:40] LABS: Glucose,Whole Blood 115 mg/dL (75-99)
[2016-04-27] MEDS: SODIUM CHLORIDE 5% OPHTH OINT 3.5 GM TUBE LEFT EYE SCH (17:33)
[2016-04-27] MEDS: INSULIN DETEMIR 100 UNIT/ML 10 ML VIAL SQ SCH (17:34)
--- NOTE | 2016-04-27 19:29 | PN ---
DATE OF SERVICE: 04/27/2016 PRESENTING COMPLAINT: Short of breath, wheezing. INTERVAL HISTORY: This patient presented with asthma exacerbation, CHF exacerbation. Patient has been having junctional rhythm; hence, dose of beta alexis was cut back yesterday. Patient again today per telemetry has some junctional rhythm, often had a heart rate down to the 30s. Patient is still wheezing a bit, congested. Norvasc was added yesterday for blood pressure. Tolerating some diet. Daughter is at the bedside. Review of systems done for constitutional, cardiovascular, GI, pulmonary; relevant findings as above. Current medications are reviewed that include: 1. DuoNeb. 2. Oral prednisone. 3. Lopressor was cut down yesterday to 12.5 t.i.d. On examination, temperature 97.4, hr down to 40s, respiration 18, blood pressure 109/58, pulse ox 96% on oxygen. GENERAL APPEARANCE: Sitting up, tired-appearing. EYES: Pupils equal. Conjunctivae normal. NECK: JVD not raised. Mass not palpable. RESPIRATORY: Effort increased. LUNGS: Some expiratory wheezing. CARDIOVASCULAR: First and second sounds normal. No edema. ABDOMEN: Soft, nontender. Liver and spleen not palpable. PSYCHIATRY: Alert and oriented x3. Mood and affect were normal. INVESTIGATIONS: INR 1.7. Accu-Cheks are noted. ASSESSMENT: 1. Acute on chronic congestive heart failure exacerbation from diastolic dysfunction, ejection fraction 55% to 60% with underlying hypertensive heart disease. 2. Moderate persistent asthma with acute exacerbation, slow to respond. 3. Diabetes mellitus type 2 on oral hypoglycemic. 4. Essential hypertension, blood pressure better controlled. 5. Primary osteoarthritis of multiple joints, bilateral. 6. Depression, not otherwise specified. 7. Persistent atrial fibrillation, chronically on Coumadin. 8. Decrease heart rate with junctional rhythm, often dipping down to the 40s and 30s. PLAN: Continue current medication and treatment plan. Care was discussed with the patient. Encouraged the patient to be out of bed.
[2016-04-27 21:11] LABS: Glucose,Whole Blood 245 mg/dL (75-99)
[2016-04-28 06:41] LABS: Glucose,Whole Blood 41 mg/dL (75-99)
[2016-04-28] MEDS: INSULIN LISPRO (humaLOG) 300 UNIT/3 ML VIAL SQ SCH ×5 (06:51→22:04)
[2016-04-28] MEDS ORDERED: DEXTROSE 50%-WATER 50 ML SYRINGE IVP ONE (06:57)
[2016-04-28 07:17] LABS: Glucose,Whole Blood 66 mg/dL (75-99)
[2016-04-28 07:32] LABS: Glucose,Whole Blood 145 mg/dL (75-99)
[2016-04-28] MEDS: hydrALAZINE HCL 25 MG TAB PO SCH ×3 (09:04→22:05)
[2016-04-28] MEDS: FAMOTIDINE 20 MG TAB PO SCH (09:05)
[2016-04-28] MEDS: SERTRALINE 100 MG TAB PO SCH (09:05)
[2016-04-28] MEDS: guaiFENesin 600 MG TABLET.ER PO SCH ×2 (09:05→22:04)
[2016-04-28] MEDS: GABAPENTIN 300 MG CAP PO SCH ×2 (09:05→22:04)
[2016-04-28] MEDS: FUROSEMIDE 40 MG TAB PO SCH ×2 (09:05→16:54)
[2016-04-28] MEDS: LORATADINE 10 MG TAB PO SCH (09:05)
[2016-04-28] MEDS: LISINOPRIL 20 MG TAB PO SCH ×2 (09:06→22:05)
[2016-04-28] MEDS: ASPIRIN 81 MG CHEW PO SCH (09:06)
[2016-04-28] MEDS: predniSONE 20 MG TAB PO SCH (09:06)
[2016-04-28] MEDS: MULTIVITAMINS, THERA 1 EACH TAB PO SCH (09:07)
[2016-04-28] MEDS: metFORMIN 500 MG TAB PO SCH (09:07)
[2016-04-28] MEDS: MAGNESIUM OXIDE 400 MG TAB PO SCH (09:07)
[2016-04-28] MEDS: FERROUS SULFATE 325 MG TAB PO SCH (09:10)
[2016-04-28] MEDS: BRIMONIDINE TARTRATE 0.2% DROPS 5 ML BTL LEFT EYE SCH (09:14)
[2016-04-28] MEDS: TIMOLOL 0.5% OPHTH DROPS 5 ML BTL LEFT EYE SCH (09:15)
[2016-04-28] MEDS: SODIUM CHLORIDE 5% OPHTH OINT 3.5 GM TUBE LEFT EYE SCH (09:15)
[2016-04-28] MEDS: METOPROLOL TARTRATE 12.5 MG TAB PO SCH (09:43)
[2016-04-28] MEDS: IPRATROPIUM-ALBUTEROL 3 ML NEB INHALATION SCH ×4 (11:10→21:04)
[2016-04-28] MEDS: BUDESONIDE 1 MG/2 ML NEBU INHALATION SCH ×2 (11:10→21:04)
[2016-04-28] MEDS: amLODIPine 10 MG TAB PO SCH (11:45)
[2016-04-28 11:54] LABS: Glucose,Whole Blood 127 mg/dL (75-99)
--- NOTE | 2016-04-28 15:50 | PN ---
Mrs. Montes is a 70-year-old female with a history of paroxysmal atrial fibrillation, history of chronic obstructive lung disease, who presented with worsening dyspnea. She has been having episode of bradycardia with pauses and junctional rhythm. She is feeling well this morning. Her breathing is stable. She denies the feeling of any dizziness. No palpitation. No syncope. She denies any nausea. She continues to be on metoprolol tartrate 12.5 mg 3 times a day, aspirin, iron, furosemide 40 mg twice a day, lisinopril 20 mg twice a day, prednisone PHYSICAL EXAMINATION: Blood pressure 126/60 with the heart rate in the 40s. LUNGS: Clear with mild decreased in breath sounds. HEART: Regular rate and rhythm. S1, S2, no S3, no rub. ABDOMEN: Soft, obese, nontender. EXTREMITIES: No significant edema. IMPRESSION: 1. Junctional rhythm with prior history of paroxysmal atrial fibrillation. Could represent sick sinus syndrome. 2. Exacerbation of chronic obstructive pulmonary disease, improving. 3. History of mild coronary artery disease by cardiac catheterization. RECOMMENDATIONS: I will stop her beta alexis completely. Will continue anticoagulation. If she remains stable, then I will continue present therapy. Depending on her progress, if she had significant pauses in spite of stopping the beta alexis or if she has evidence of tachycardia, then she may be a candidate for a permanent pacemaker.
[2016-04-28 17:00] LABS: Glucose,Whole Blood 275 mg/dL (75-99)
--- NOTE | 2016-04-28 17:22 | P.PN ---
Subjective 70-year-old female patient, presented to the hospital because of worsening shortness of breath, some orthopnea without paroxysmal nocturnal dyspnea. The patient started by having symptoms of upper respiratory checked infection for which she was seen in our office and she received some antibiotic treatment. Back then the patient was complaining of some increased cough with production of greenish sputum and despite antibiotic treatment the patient became more short of breath. No worsening of the lower extremity edema. No fever or chills. Chest x-ray on the time of admission showed CHF exacerbation/ cardiomegaly with increased pulmonary vascular markings and congestion. EKG remained in normal sinus rhythm. The patient had no troponin elevation. Noted the blood pressure the time of admission was quite elevated with initial blood pressure of 204/64 and the patient's pulse ox was around 82% on room air. Clinically the patient is feeling better as the patient's blood pressure improved and is under better control. ProBNP level at time of admission was above 11,000 and the troponins are 0.013, 0.031 and 0.015 respectively 3. This patient is known to have hypertension, diabetes mellitus, hyperlipidemia, asthma and paroxysmal atrial fibrillation. No documented coronary artery disease. In terms of her asthma, the patient is demented on a combination of Advair 115/21 HFA 2 puffs twice a day as baseline and Ventolin rescue inhaler on an as-needed basis. No recurrent exacerbation of her asthma. No previous bouts of ventilator dependent respiratory failure due to asthma exacerbation. The echocardiogram from this current admission shows an ejection fraction of 50- 55%, moderately dilated LA, mild aortic valve sclerosis, moderate degree of pulmonary hypertension with a PA pressures of 46.7 mmHg. In follow-up 04/24/2016 on the selective care unit. She is awake and alert in no acute distress. She does admit to breathing easier today as compared to yesterday. She's been up ambulating in the room without acute distress. She is not utilizing BiPAP the past 24 hours. She is maintaining O2 saturations in the low 90s on 2 L/m per nasal cannula. On 04/27/2016 the patient is being seen in follow-up. She still short of breath. Her chest is congested and she is slightly bronchospastic and wheezy. She is getting short of breath with limited amount of activity. No fever. No chills. No night sweats. The patient is still on IV Solu Medrol 40 mg every 8 hours. The patient is also receiving Lasix which has been switched to oral 40 mg by mouth twice a day. On on 04/28/2016, the patient is doing slightly better compared to yesterday. No chest pain. She is less short of breath at this point. She is responding to the bronchodilators and steroids. She did have an episode of bradycardia with pauses and the junctional rhythm however this has recovered and the patient did not have any further episodes. Based on that, cardiology had recommended to stop the beta blockers. The patient remains in atrial fibrillation for now. She is known to have mild coronary artery disease and a previous cardiac catheterization. In terms of her COPD exacerbation, she continues to improve although slowly. No dizziness. No syncope. No chest pain. No other significant events over the past 24 hours. Objective - Vital Signs Vital signs: Vital Signs Temp 97 F L 04/28/16 16:00 Pulse 44 L 04/28/16 16:13 Resp 16 04/28/16 16:00 BP 141/72 04/28/16 16:00 Pulse Ox 90 L 04/28/16 16:00 Intake & Output 04/27/16 04/28/16 04/28/16 18:59 06:59 18:59 Intake Total 1080 180 Output Total 400 1200 800 Balance 680 -1200 -620 Weight 98.3 kg 98.2 kg Intake: Oral 1080 180 Output: Urine 400 1200 Urine/Stool Mix 800 Other: Voiding Method Bedside Commode Bedside Commode Bedside Commode # Voids 1 2 # Bowel Movements 1 - Exam Head exam was generally normal. There was no scleral icterus or corneal arcus. Mucous membranes were moist.Neck was supple and without jugular venous distension, thyromegaly, or carotid bruits. Carotids were easily palpable bilaterally. There was no adenopathy. Lung sounds are diminished bilaterally along with some scattered expiratory wheezes without the lung aly.Cardiac exam revealed the PMI to be normally situated and sized. The rhythm was regular and no extrasystoles were noted during several minutes of auscultation. The first and second heart sounds were normal and physiologic splitting of the second heart sound was noted. There were no murmurs, rubs, clicks, or gallops. Abdominal exam revealed normal bowel sounds. The abdomen was soft, non-tender, and without masses, organomegaly, or appreciable enlargement of the abdominal aorta. extremities show some varicose veins in lower extremity is bilaterally otherwise there is no significant edema cyanosis or clubbing. - Labs CBC & Chem 7: 04/25/16 07:53 04/25/16 07:53 Labs: Abnormal Lab Results - Last 24 Hours (Table) 04/27/16 04/28/16 04/28/16 Range/Units 20:52 06:36 06:55 POC Glucose (mg/dL) 245 H 41 L 66 L (75-99) mg/dL 04/28/16 04/28/16 04/28/16 Range/Units 07:25 11:23 16:48 POC Glucose (mg/dL) 145 H 127 H 275 H (75-99) mg/dL Assessment and Plan Plan: Assessment 1 acute CHF/diastolic dysfunction, improving 2 asthma exacerbation secondary to upper respiratory checked infection, currently inactive in stable. Rule out underlying tracheal bronchitis 3 paroxysmal atrial fibrillation, with a single episode of junctional rhythm. Patient was taken off the beta blockers. 4 hypertension with poorly controlled blood pressure at time of admission, currently under better control as the patient is taking a combination of amlodipine, Zestoretic, hydralazine and Lasix. 5 diabetes mellitus 6 hyperlipidemia 7 mild coronary artery disease based on a previous cardiac catheterization at was done 2013 8 troponin leak Plan Switch this patient to oral prednisone and this continued IV Solu-Medrol. Continue anticoagulation as the patient's PT/INR was therapeutic and the patient remains on warfarin. The patient's blood pressures under better control. We'll continue to follow make further recommendations based on her overall progress.
[2016-04-28] MEDS: INSULIN DETEMIR 100 UNIT/ML 10 ML VIAL SQ SCH (17:23)
[2016-04-28] MEDS ORDERED: WARFARIN 5 MG TAB PO ONE (18:00)
--- NOTE | 2016-04-28 18:09 | PN ---
DATE OF SERVICE: 04/28/2016 PRESENTING COMPLAINT: Shortness of breath. INTERVAL HISTORY: This patient presented with asthmatic exacerbation and CHF exacerbation. Patient had been in junctional rhythm, dose of beta alexis was cut back. Still running into junctional rhythm. Patient states wheezing is much better. Review of systems done for constitutional, cardiovascular, GI, pulmonary; relevant findings as above. Current medications are reviewed. Lopressor was stopped earlier by cardiology. On examination, temperature 97.3, pulse 45, respirations 20, blood pressure 126/60, pulse ox 93% on 2 liters. GENERAL APPEARANCE: Sitting up in chair, more comfortable. EYES: Pupils equal. Conjunctivae normal. NECK: JVD not raised. Mass not palpable. RESPIRATORY: Effort normal. LUNGS: Decreased breath sounds, wheezing much improved. CARDIOVASCULAR: First and second sounds normal. No edema. ABDOMEN: Soft, nontender. Liver and spleen not palpable. PSYCHIATRY: Alert and oriented x3. Mood and affect normal. INVESTIGATIONS: Accu-Cheks noted. The patient did drop her sugar to 66 this morning. ASSESSMENT: 1. Acute and chronic congestive heart failure exacerbation from diastolic dysfunction, ejection fraction 55% with underlying hypertensive heart disease, now compensated. 2. Junctional rhythm with the patient on a beta alexis now that has been discontinued. 3. Moderate persistent asthma with acute exacerbation, improved. 4. Diabetes mellitus type 2, on oral hypoglycemic, becoming hypoglycemic in the morning. 5. Essential hypertension. 6. Primary osteoarthritis in multiple joints, bilateral. 7. Depression, not otherwise specified. 8. Persistent atrial fibrillation. The patient is chronically on Coumadin. PLAN: Because the patient's junctional rhythm, beta alexis dose initially had been cut back, now stopped. Will see if the patient goes back into A. fib with rapid rate. In that case patient will need a pacemaker. Since sugars are dropping down in the morning, we will drop the patient's evening dose of Levemir to 40 units. Also use Humalog with meals. Will have Cardiology re-evaluate the patient in terms of junctional rhythm and follow.
[2016-04-28 20:52] LABS: Glucose,Whole Blood 309 mg/dL (75-99)
[2016-04-29 00:44] LABS: Glucose,Whole Blood 218 mg/dL (75-99)
[2016-04-29 06:04] LABS: Glucose,Whole Blood 76 mg/dL (75-99)
[2016-04-29 06:53] LABS: Anion Gap 10 mmol/L; Blood Urea Nitrogen 72 mg/dL (7-17); Calcium 9.7 mg/dL (8.4-10.2); Carbon Dioxide 36 mmol/L (22-30); Chloride 96 mmol/L (98-107); Glucose 83 mg/dL (74-99); Non-African American GFR(MDRD) 57 (>60 ml/min/1.73 sqM); Potassium 4.4 mmol/L (3.5-5.1); Sodium 142 mmol/L (137-145)
[2016-04-29] MEDS: INSULIN LISPRO (humaLOG) 300 UNIT/3 ML VIAL SQ SCH ×7 (06:59→21:21)
[2016-04-29 07:10] LABS: INR 1.2 (<1.1)
[2016-04-29] MEDS: BUDESONIDE 1 MG/2 ML NEBU INHALATION SCH ×2 (08:13→20:45)
[2016-04-29] MEDS: IPRATROPIUM-ALBUTEROL 3 ML NEB INHALATION SCH ×4 (08:13→20:45)
[2016-04-29] MEDS: BRIMONIDINE TARTRATE 0.2% DROPS 5 ML BTL LEFT EYE SCH (09:48)
[2016-04-29] MEDS: ASPIRIN 81 MG CHEW PO SCH (09:49)
[2016-04-29] MEDS: LORATADINE 10 MG TAB PO SCH (09:49)
[2016-04-29] MEDS: amLODIPine 10 MG TAB PO SCH (09:49)
[2016-04-29] MEDS: TIMOLOL 0.5% OPHTH DROPS 5 ML BTL LEFT EYE SCH (09:49)
[2016-04-29] MEDS: guaiFENesin 600 MG TABLET.ER PO SCH ×2 (09:50→21:21)
[2016-04-29] MEDS: FAMOTIDINE 20 MG TAB PO SCH (09:50)
[2016-04-29] MEDS: LISINOPRIL 20 MG TAB PO SCH ×2 (09:50→21:22)
[2016-04-29] MEDS: MAGNESIUM OXIDE 400 MG TAB PO SCH (09:51)
[2016-04-29] MEDS: GABAPENTIN 300 MG CAP PO SCH ×2 (09:51→21:21)
[2016-04-29] MEDS: FUROSEMIDE 40 MG TAB PO SCH (09:51)
[2016-04-29] MEDS: FERROUS SULFATE 325 MG TAB PO SCH (09:51)
[2016-04-29] MEDS: metFORMIN 500 MG TAB PO SCH (09:52)
[2016-04-29] MEDS: SERTRALINE 100 MG TAB PO SCH (09:52)
[2016-04-29] MEDS: MULTIVITAMINS, THERA 1 EACH TAB PO SCH (09:52)
[2016-04-29] MEDS: predniSONE 20 MG TAB PO SCH (09:52)
[2016-04-29] MEDS: hydrALAZINE HCL 25 MG TAB PO SCH (09:53)
[2016-04-29] MEDS: SODIUM CHLORIDE 5% OPHTH OINT 3.5 GM TUBE LEFT EYE SCH (09:53)
--- NOTE | 2016-04-29 11:44 | PN ---
Mrs. Montes is a 70-year-old female with a history of paroxysmal atrial fibrillation, history of chronic obstructive lung disease, who presented with symptoms of progressive dyspnea and exacerbation of chronic obstructive pulmonary disease in addition to the mild congestive heart failure with diastolic dysfunction. She has mild coronary artery disease by cardiac catheterization. She is feeling better this morning. She still has some cough. Her breathing is better. She has episodes of sinus pauses, but she continued to be in sinus mechanism. She has no associated dizziness or syncope. She has no clear PND. No orthopnea. She continues to be on aspirin, Lasix 40 mg twice a day, insulin, Lisinopril 20 mg twice a day, Coumadin, amlodipine 10 mg daily, hydralazine 75 mg 3 times a day. PHYSICAL EXAMINATION: Blood pressure running in the 130s to 160s with a heart in the 50s. LUNGS: End/expiratory wheezes. HEART: Regular rate rhythm. S1, S2, no S3, no rub appreciated. ABDOMEN: Soft, nontender, obese. EXTREMITIES: No significant edema. Lab data revealed a BUN and creatinine of 72 and 0.96. Potassium 4.5. IMPRESSION: 1. Exacerbation of chronic obstructive pulmonary disease and bronchial asthma, mild congestive heart failure with diastolic dysfunction. 2. Hypertension. 3. Paroxysmal atrial fibrillation with episode suggestive of sick sinus syndrome. 4. Elevated BUN. RECOMMENDATION: I will cut down the dose of her diuresis. Follow her renal function. The patient may require permanent pacemaker. I would like to wait especially with the infectious process at this time and the cough. If she has no significant pauses, then she can be followed as an outpatient to undergo the procedure at that time.
[2016-04-29 12:24] LABS: Glucose,Whole Blood 80 mg/dL (75-99)
[2016-04-29] MEDS: hydrALAZINE HCL 50 MG TAB PO SCH ×2 (15:36→21:23)
[2016-04-29 17:10] LABS: Glucose,Whole Blood 171 mg/dL (75-99)
--- NOTE | 2016-04-29 17:11 | P.PN ---
Subjective 70-year-old female patient, presented to the hospital because of worsening shortness of breath, some orthopnea without paroxysmal nocturnal dyspnea. The patient started by having symptoms of upper respiratory checked infection for which she was seen in our office and she received some antibiotic treatment. Back then the patient was complaining of some increased cough with production of greenish sputum and despite antibiotic treatment the patient became more short of breath. No worsening of the lower extremity edema. No fever or chills. Chest x-ray on the time of admission showed CHF exacerbation/ cardiomegaly with increased pulmonary vascular markings and congestion. EKG remained in normal sinus rhythm. The patient had no troponin elevation. Noted the blood pressure the time of admission was quite elevated with initial blood pressure of 204/64 and the patient's pulse ox was around 82% on room air. Clinically the patient is feeling better as the patient's blood pressure improved and is under better control. ProBNP level at time of admission was above 11,000 and the troponins are 0.013, 0.031 and 0.015 respectively 3. This patient is known to have hypertension, diabetes mellitus, hyperlipidemia, asthma and paroxysmal atrial fibrillation. No documented coronary artery disease. In terms of her asthma, the patient is demented on a combination of Advair 115/21 HFA 2 puffs twice a day as baseline and Ventolin rescue inhaler on an as-needed basis. No recurrent exacerbation of her asthma. No previous bouts of ventilator dependent respiratory failure due to asthma exacerbation. The echocardiogram from this current admission shows an ejection fraction of 50- 55%, moderately dilated LA, mild aortic valve sclerosis, moderate degree of pulmonary hypertension with a PA pressures of 46.7 mmHg. In follow-up 04/24/2016 on the selective care unit. She is awake and alert in no acute distress. She does admit to breathing easier today as compared to yesterday. She's been up ambulating in the room without acute distress. She is not utilizing BiPAP the past 24 hours. She is maintaining O2 saturations in the low 90s on 2 L/m per nasal cannula. On 04/27/2016 the patient is being seen in follow-up. She still short of breath. Her chest is congested and she is slightly bronchospastic and wheezy. She is getting short of breath with limited amount of activity. No fever. No chills. No night sweats. The patient is still on IV Solu Medrol 40 mg every 8 hours. The patient is also receiving Lasix which has been switched to oral 40 mg by mouth twice a day. On on 04/28/2016, the patient is doing slightly better compared to yesterday. No chest pain. She is less short of breath at this point. She is responding to the bronchodilators and steroids. She did have an episode of bradycardia with pauses and the junctional rhythm however this has recovered and the patient did not have any further episodes. Based on that, cardiology had recommended to stop the beta blockers. The patient remains in atrial fibrillation for now. She is known to have mild coronary artery disease and a previous cardiac catheterization. In terms of her COPD exacerbation, she continues to improve although slowly. No dizziness. No syncope. No chest pain. No other significant events over the past 24 hours. On 04/29/2016, the patient is still being treated for acute COPD exacerbation. Still bronchospastic and wheezy. No cardiac arrhythmias have been noted. No chest pain. No fever or chills. She remains on a prednisone as part of the burst taper. She is on Pulmicort Respules and Perforomist overestimates twice daily and DuoNeb nebulized treatments around the clock. Her PT/INR is subtherapeutic. Rest of the electrodes are all within normal limits. Objective - Vital Signs Vital signs: Vital Signs Temp 98.8 F 04/29/16 12:00 Pulse 54 L 04/29/16 16:29 Resp 18 04/29/16 12:00 BP 124/56 04/29/16 12:00 Pulse Ox 95 04/29/16 12:00 Intake & Output 04/28/16 04/29/16 04/29/16 18:59 06:59 18:59 Intake Total 410 230 10 Output Total 1700 1000 Balance -1290 -770 10 Weight 99.6 kg Intake: IV 10 Invasive Line 2 10 Oral 410 230 Output: Urine 900 1000 Urine/Stool Mix 800 Other: Voiding Method Bedside Commode Bedside Commode - Exam Head exam was generally normal. There was no scleral icterus or corneal arcus. Mucous membranes were moist.Neck was supple and without jugular venous distension, thyromegaly, or carotid bruits. Carotids were easily palpable bilaterally. There was no adenopathy. Lung sounds are diminished bilaterally along with some scattered expiratory wheezes without the lung aly.Cardiac exam revealed the PMI to be normally situated and sized. The rhythm was regular and no extrasystoles were noted during several minutes of auscultation. The first and second heart sounds were normal and physiologic splitting of the second heart sound was noted. There were no murmurs, rubs, clicks, or gallops. Abdominal exam revealed normal bowel sounds. The abdomen was soft, non-tender, and without masses, organomegaly, or appreciable enlargement of the abdominal aorta. extremities show some varicose veins in lower extremity is bilaterally otherwise there is no significant edema cyanosis or clubbing. - Labs CBC & Chem 7: 04/25/16 07:53 04/29/16 06:12 Labs: Abnormal Lab Results - Last 24 Hours (Table) 04/28/16 04/29/16 04/29/16 Range/Units 20:49 00:43 06:12 Chloride 96 L (98-107) mmol/L Carbon Dioxide 36 H (22-30) mmol/L BUN 72 H (7-17) mg/dL POC Glucose (mg/dL) 309 H 218 H (75-99) mg/dL Assessment and Plan Plan: Assessment 1 acute CHF/diastolic dysfunction, improving 2 asthma exacerbation secondary to upper respiratory checked infection, currently inactive in stable. Rule out underlying tracheal bronchitis 3 paroxysmal atrial fibrillation, with a single episode of junctional rhythm. Patient was taken off the beta blockers. The patient is on warfarin and the PT/ INR is subtherapeutic at this point 4 hypertension with poorly controlled blood pressure at time of admission, currently under better control as the patient is taking a combination of amlodipine, Zestoretic, hydralazine and Lasix. 5 diabetes mellitus 6 hyperlipidemia 7 mild coronary artery disease based on a previous cardiac catheterization at was done 2013 8 troponin leak Plan Continue current treatment. Potential discharge in the next 24-48 hours. No chest pain. No cardiac arrhythmias have been mentioned.
[2016-04-29] MEDS: INSULIN DETEMIR 100 UNIT/ML 10 ML VIAL SQ SCH (17:27)
[2016-04-29] MEDS ORDERED: WARFARIN 5 MG TAB PO ONE (18:00)
[2016-04-29 20:51] LABS: Glucose,Whole Blood 240 mg/dL (75-99)
[2016-04-30] MEDS: INSULIN LISPRO (humaLOG) 300 UNIT/3 ML VIAL SQ SCH ×7 (06:34→21:24)
[2016-04-30 06:35] LABS: Glucose,Whole Blood 79 mg/dL (75-99)
[2016-04-30 06:35] LABS: Glucose,Whole Blood 50 mg/dL (75-99)
[2016-04-30 06:38] LABS: INR 1.4 (<1.1); Prothrombin Time 13.8 sec (9.0-12.0)
[2016-04-30 06:47] LABS: Anion Gap 10 mmol/L; Blood Urea Nitrogen 62 mg/dL (7-17); Calcium 9.6 mg/dL (8.4-10.2); Carbon Dioxide 32 mmol/L (22-30); Chloride 100 mmol/L (98-107); Non-African American GFR(MDRD) >60 (>60 ml/min/1.73 sqM); Potassium 4.6 mmol/L (3.5-5.1); Sodium 142 mmol/L (137-145)
[2016-04-30 07:06] LABS: Glucose 45 mg/dL (74-99)
--- NOTE | 2016-04-30 08:01 | PN ---
DATE OF SERVICE: 04/29/2016 PRESENTING COMPLAINT: Short of breath. INTERVAL HISTORY: This patient with asthma exacerbation, CHF exacerbation, and went into junctional rhythm because of beta alexis that eventually discontinued as of yesterday. Patient is still bradycardic, running in the 40's. Patient's overall breathing is better. Review of systems done for constitutional, cardiovascular, GI, pulmonary; relevant findings as above. Current medications are reviewed that include nebulized bronchodilator, hold prednisone. On examination, temperature 98.8, pulse 46, respiration 18, blood pressure 124/56, pulse ox 95% on 2 L. GENERAL APPEARANCE: Sitting up, not in distress. EYES: Pupils equal. Conjunctivae normal. NECK: JVD not raised. Mass not palpable. Respiratory effort normal. LUNGS: Decreased breath sounds, wheezing is improved. CARDIOVASCULAR: First and second sounds normal. No edema. ABDOMEN: Soft, nontender. Liver and spleen not palpable. PSYCHIATRIC: Alert and oriented x3. Mood and affect normal. INVESTIGATIONS: Telemetry shows sinus bradycardia. INVESTIGATIONS: BUN 32, creatinine of 0.96. ASSESSMENT: 1. Acute on chronic congestive heart failure exacerbation from diastolic dysfunction, ejection fraction 55% with underlying hypertensive heart disease, now compensated. 2. Junctional rhythm from patient being on a beta alexis, now that has been discontinued. 3. Moderate persistent asthma with acute exacerbation, much improved. 4. Diabetes mellitus type 2, on oral glycemic. 5. Essential hypertension. 6. Primary osteoarthritis in multiple joints, bilateral. 7. Depression, not otherwise specified. 8. Paroxysmal atrial fibrillation. Patient on Coumadin. PLAN: Patient's dose of Lantus was cut back yesterday. Sugars are doing better. Keep a close eye on the patient, encourage to ambulate. Patient was told to stay off of cold liquids and use warm salt water for gargle to improve her dry cough.
[2016-04-30] MEDS ORDERED: FUROSEMIDE 40 MG TAB PO SCH (09:00)
[2016-04-30] MEDS: IPRATROPIUM-ALBUTEROL 3 ML NEB INHALATION SCH ×4 (09:13→20:28)
[2016-04-30] MEDS: BUDESONIDE 1 MG/2 ML NEBU INHALATION SCH ×2 (09:13→20:28)
[2016-04-30 09:39] LABS: Glucose,Whole Blood 181 mg/dL (75-99)
[2016-04-30] MEDS: TIMOLOL 0.5% OPHTH DROPS 5 ML BTL LEFT EYE SCH (10:02)
[2016-04-30] MEDS: BRIMONIDINE TARTRATE 0.2% DROPS 5 ML BTL LEFT EYE SCH (10:02)
[2016-04-30] MEDS: metFORMIN 500 MG TAB PO SCH (10:03)
[2016-04-30] MEDS: predniSONE 20 MG TAB PO SCH (10:03)
[2016-04-30] MEDS: GABAPENTIN 300 MG CAP PO SCH ×2 (10:03→20:07)
[2016-04-30] MEDS: amLODIPine 10 MG TAB PO SCH (10:04)
[2016-04-30] MEDS: FERROUS SULFATE 325 MG TAB PO SCH (10:04)
[2016-04-30] MEDS: MAGNESIUM OXIDE 400 MG TAB PO SCH (10:04)
[2016-04-30] MEDS: SERTRALINE 100 MG TAB PO SCH (10:04)
[2016-04-30] MEDS: LORATADINE 10 MG TAB PO SCH (10:05)
[2016-04-30] MEDS: SODIUM CHLORIDE 5% OPHTH OINT 3.5 GM TUBE LEFT EYE SCH (10:05)
[2016-04-30] MEDS: MULTIVITAMINS, THERA 1 EACH TAB PO SCH (10:05)
[2016-04-30] MEDS: guaiFENesin 600 MG TABLET.ER PO SCH ×2 (10:06→20:07)
[2016-04-30] MEDS: ASPIRIN 81 MG CHEW PO SCH (10:06)
[2016-04-30] MEDS: FAMOTIDINE 20 MG TAB PO SCH (10:06)
[2016-04-30] MEDS: hydrALAZINE HCL 50 MG TAB PO SCH ×3 (10:07→20:07)
[2016-04-30] MEDS: LISINOPRIL 20 MG TAB PO SCH ×2 (10:08→20:07)
[2016-04-30 11:19] VITALS: BMI 34.9
[2016-04-30] MEDS: methylPREDNISolone SOD SUCCI 40 MG/ML 1 ML VIAL IV SCH ×2 (11:35→17:10)
[2016-04-30 11:53] LABS: Glucose,Whole Blood 151 mg/dL (75-99)
--- NOTE | 2016-04-30 12:37 | XR ---
EXAMINATION TYPE: XR chest 1V portable DATE OF EXAM: 04/30/2016 10:54 AM COMPARISON: Prior chest x-ray April HISTORY: COPD, shortness of breath TECHNIQUE: Single frontal view of the chest is obtained. FINDINGS: There is no focal air space opacity, pleural effusion, or pneumothorax seen. The cardiac silhouette size is within normal limits. Distortion of the proximal left humerus is again noted. Pa tient is rotated. There are overlying cardiac leads. Heart size may be accentuated by rotation. IMPRESSION: No acute process.
--- NOTE | 2016-04-30 12:40 | P.PN ---
Subjective Principal diagnosis: Shortness of breath This is a 70-year-old female who follows regularly with Dr. Mauro in the office. She has a known history of diabetes, hypertension, hyperlipidemia, paroxysmal atrial fibrillation, asthma, presented to the hospital with symptoms of shortness of breath with associated productive cough of green sputum. He is currently being treated for exacerbation of COPD along with chronic bronchitis. Patient did have an element of diastolic congestive heart failure on admission here also and diuresed well on IV Lasix. Currently on PO Lasix. She had accelerated hypertension on admission, medication adjustments have been made. Blood pressure this morning 130/80 . Cardiology had been asked to reevaluate the patient over the weekend because of significant positive on the monitor. Her beta alexis was discontinued, heart rate continues to be in the 40s to 50s range, no further pauses noted. Patient continues to have cough however improving overall. Objective - Vital Signs Vital signs: Vital Signs Temp 97.5 F L 04/30/16 11:47 Pulse 45 L 04/30/16 11:47 Resp 18 04/30/16 11:47 BP 131/87 04/30/16 11:47 Pulse Ox 90 L 04/30/16 11:47 Intake & Output 04/29/16 04/30/16 04/30/16 18:59 06:59 18:59 Intake Total 390 476 Output Total 700 1400 Balance -310 -1400 476 Weight 98.3 kg 98.3 kg Intake: IV 30 11 Invasive Line 2 10 Invasive Line 3 11 Sodium Chloride 0.9% 1, 20 000 ml @ 100 mls/hr IV . Q10H STA Rx#:[id number] Oral 360 465 Output: Urine 700 1400 Other: # Voids 2 1 - Exam PHYSICAL EXAMINATION: HEENT: [Head is atraumatic, normocephalic. Pupils equal, round. Neck is supple. There is no elevated jugular venous pressure.] HEART EXAMINATION: S1 and S2 normal CHEST EXAMINATION: Lungs reveal scattered coarse wheezing throughout. ABDOMEN: [ Soft, nontender. Bowel sounds are heard. No organomegaly noted]. EXTREMITIES:[ 2+ peripheral pulses with trace evidence of peripheral edema and no calf tenderness noted]. NEUROLOGIC [patient is awake, alert and oriented -3.] . - Labs CBC & Chem 7: 04/25/16 07:53 04/30/16 05:48 Labs: Abnormal Lab Results - Last 24 Hours (Table) 04/23/16 04/29/16 04/29/16 Range/Units 16:49 17:00 20:50 PT (9.0-12.0) sec Carbon Dioxide (22-30) mmol/L BUN (7-17) mg/dL Glucose (74-99) mg/dL POC Glucose (mg/dL) 181 H 171 H 240 H (75-99) mg/dL 04/30/16 04/30/16 04/30/16 Range/Units 05:48 05:48 06:09 PT 13.8 H (9.0-12.0) sec Carbon Dioxide 32 H (22-30) mmol/L BUN 62 H (7-17) mg/dL Glucose 45 L* (74-99) mg/dL POC Glucose (mg/dL) 50 L (75-99) mg/dL 04/30/16 Range/Units 11:49 PT (9.0-12.0) sec Carbon Dioxide (22-30) mmol/L BUN (7-17) mg/dL Glucose (74-99) mg/dL POC Glucose (mg/dL) 151 H (75-99) mg/dL Assessment and Plan Plan: Assessment and plan #1 symptoms of chest congestion with associated productive cough of green sputum , suggestive of possible tracheobronchitis, with exacerbation of patient currently on IV antibiotics #2 exacerbation of congestive heart failure, likely diastolic in nature, most recent echocardiogram with Doppler study was performed in August 2014 which revealed an ejection fraction of 50-55%. #3 paroxysmal atrial fibrillation, on Coumadin, #4 accelerated hypertension #5 diabetes #6 hyperlipidemia #7 history of asthma #8 no significant obstructive coronary artery disease by cardiac catheterization performed in 2013 #9 hypomagnesemia #10 sinus bradycardia Plan From cardiology's perspective, we will continue the patient on her current medications. We will give the patient 5 mg of Coumadin today for an INR of 1.4. Continue to monitor. No immediate need for implantation of a pacemaker at this time. DNP note has been reviewed, I agree with a documented findings and plan of care. Patient was seen and examined.
--- NOTE | 2016-04-30 12:56 | P.PN ---
Subjective Principal diagnosis: Acute exacerbation of COPD 70-year-old female patient, presented to the hospital because of worsening shortness of breath, some orthopnea without paroxysmal nocturnal dyspnea. The patient started by having symptoms of upper respiratory checked infection for which she was seen in our office and she received some antibiotic treatment. Back then the patient was complaining of some increased cough with production of greenish sputum and despite antibiotic treatment the patient became more short of breath. No worsening of the lower extremity edema. No fever or chills. Chest x-ray on the time of admission showed CHF exacerbation/ cardiomegaly with increased pulmonary vascular markings and congestion. EKG remained in normal sinus rhythm. The patient had no troponin elevation. Noted the blood pressure the time of admission was quite elevated with initial blood pressure of 204/64 and the patient's pulse ox was around 82% on room air. Clinically the patient is feeling better as the patient's blood pressure improved and is under better control. ProBNP level at time of admission was above 11,000 and the troponins are 0.013, 0.031 and 0.015 respectively 3. This patient is known to have hypertension, diabetes mellitus, hyperlipidemia, asthma and paroxysmal atrial fibrillation. No documented coronary artery disease. In terms of her asthma, the patient is demented on a combination of Advair 115/21 HFA 2 puffs twice a day as baseline and Ventolin rescue inhaler on an as-needed basis. No recurrent exacerbation of her asthma. No previous bouts of ventilator dependent respiratory failure due to asthma exacerbation. The echocardiogram from this current admission shows an ejection fraction of 50- 55%, moderately dilated LA, mild aortic valve sclerosis, moderate degree of pulmonary hypertension with a PA pressures of 46.7 mmHg. In follow-up 04/24/2016 on the selective care unit. She is awake and alert in no acute distress. She does admit to breathing easier today as compared to yesterday. She's been up ambulating in the room without acute distress. She is not utilizing BiPAP the past 24 hours. She is maintaining O2 saturations in the low 90s on 2 L/m per nasal cannula. On 04/27/2016 the patient is being seen in follow-up. She still short of breath. Her chest is congested and she is slightly bronchospastic and wheezy. She is getting short of breath with limited amount of activity. No fever. No chills. No night sweats. The patient is still on IV Solu Medrol 40 mg every 8 hours. The patient is also receiving Lasix which has been switched to oral 40 mg by mouth twice a day. On on 04/28/2016, the patient is doing slightly better compared to yesterday. No chest pain. She is less short of breath at this point. She is responding to the bronchodilators and steroids. She did have an episode of bradycardia with pauses and the junctional rhythm however this has recovered and the patient did not have any further episodes. Based on that, cardiology had recommended to stop the beta blockers. The patient remains in atrial fibrillation for now. She is known to have mild coronary artery disease and a previous cardiac catheterization. In terms of her COPD exacerbation, she continues to improve although slowly. No dizziness. No syncope. No chest pain. No other significant events over the past 24 hours. On 04/29/2016, the patient is still being treated for acute COPD exacerbation. Still bronchospastic and wheezy. No cardiac arrhythmias have been noted. No chest pain. No fever or chills. She remains on a prednisone as part of the burst taper. She is on Pulmicort Respules and Perforomist overestimates twice daily and DuoNeb nebulized treatments around the clock. Her PT/INR is subtherapeutic. Rest of the electrodes are all within normal limits. Patient was seen on 04/30/2016, continues to have to have significant wheezing and shortness of breath. Chest x-ray showed no evidence of congestive heart failure and no evidence of infiltrate, hence I felt that the findings are mostly findings of acute exacerbation of COPD. I switch the patient back from prednisone to IV Solu-Medrol. And will need to continue present bronchodilators for now. Clearly the patient is not having any findings to suggest congestive heart failure. Labs were reviewed, her BUN is up to 62 creatinine is 0.9. Hence I will recommend cutting down the Lasix to 20 mg daily instead of 40 mg daily. Objective - Vital Signs Vital signs: Vital Signs Temp 97.5 F L 04/30/16 11:47 Pulse 45 L 04/30/16 11:47 Resp 18 04/30/16 11:47 BP 131/87 04/30/16 11:47 Pulse Ox 90 L 04/30/16 11:47 Intake & Output 04/29/16 04/30/16 04/30/16 18:59 06:59 18:59 Intake Total 390 476 Output Total 700 1400 Balance -310 -1400 476 Weight 98.3 kg 98.3 kg Intake: IV 30 11 Invasive Line 2 10 Invasive Line 3 11 Sodium Chloride 0.9% 1, 20 000 ml @ 100 mls/hr IV . Q10H STA Rx#:[id number] Oral 360 465 Output: Urine 700 1400 Other: # Voids 2 1 - Exam Physical Exam: Revealed a 70-year-old female in mild respiratory distress, with diffuse rhonchi and wheezes bilaterally. HEENT:[Neck is supple.] [No neck masses.] [No thyromegaly.] [No JVD.] Chest: [Diffuse rhonchi and wheezes throughout..] Cardiac Exam: Irregular irregular rhythm, 2/6 systolic murmur throughout the precordium.] Abdomen: [Soft, nontender, no megaly, no rebound, no guarding, normal bowel sounds.] Extremities: [No clubbing, no edema, no cyanosis.] Neurological Exam: [No focal neurologic deficit.] - Labs CBC & Chem 7: 04/25/16 07:53 04/30/16 05:48 Labs: Abnormal Lab Results - Last 24 Hours (Table) 04/23/16 04/29/16 04/29/16 Range/Units 16:49 17:00 20:50 PT (9.0-12.0) sec Carbon Dioxide (22-30) mmol/L BUN (7-17) mg/dL Glucose (74-99) mg/dL POC Glucose (mg/dL) 181 H 171 H 240 H (75-99) mg/dL 04/30/16 04/30/16 04/30/16 Range/Units 05:48 05:48 06:09 PT 13.8 H (9.0-12.0) sec Carbon Dioxide 32 H (22-30) mmol/L BUN 62 H (7-17) mg/dL Glucose 45 L* (74-99) mg/dL POC Glucose (mg/dL) 50 L (75-99) mg/dL 04/30/16 Range/Units 11:49 PT (9.0-12.0) sec Carbon Dioxide (22-30) mmol/L BUN (7-17) mg/dL Glucose (74-99) mg/dL POC Glucose (mg/dL) 151 H (75-99) mg/dL Assessment and Plan Plan: 1 acute CHF/diastolic dysfunction, improving 2 asthma exacerbation secondary to upper respiratory tract infection, no evidence of infiltrate on the chest x-ray. 3 paroxysmal atrial fibrillation, with a single episode of junctional rhythm. Patient was taken off the beta blockers. The patient is on warfarin and the PT/ INR is subtherapeutic at this point 4 hypertension with poorly controlled blood pressure at time of admission, currently under better control as the patient is taking a combination of amlodipine, Zestoretic, hydralazine and Lasix. 5 diabetes mellitus 6 hyperlipidemia 7 mild coronary artery disease based on a previous cardiac catheterization at was done 2013 Recommendation: Continue present treatment plan, not ready for discharge planning, I switched prednisone back to IV Solu-Medrol. And I cut down the Lasix from 40 mg to 20 mg daily. We'll continue to follow. Time with Patient: Less than 30
[2016-04-30 16:58] LABS: Glucose,Whole Blood 219 mg/dL (75-99)
[2016-04-30] MEDS: INSULIN DETEMIR 100 UNIT/ML 10 ML VIAL SQ SCH (17:45)
[2016-04-30] MEDS ORDERED: WARFARIN 5 MG TAB PO ONE (18:00)
[2016-04-30 20:46] LABS: Glucose,Whole Blood 302 mg/dL (75-99)
--- NOTE | 2016-04-30 21:34 | PN ---
DATE OF SERVICE: 04/30/2016 PRESENTING COMPLAINT: Short of breath. INTERVAL HISTORY: This is a patient WITH asthma exacerbation, CHF exacerbation, having junctional rhythm, now sinus bradycardia. The patient has followed with Dr. Kidd in the past. Still short of breath. Daughter is at bedside. Review of systems done for constitutional, cardiovascular, GI; pertinent findings as above. Current medications are reviewed. On examination, temperature 97.5, pulse 45, respirations 18, blood pressure 113/87, pulse of 98% on room air. GENERAL APPEARANCE: Sitting up in bed, tired appearing. HEENT: Pupils equal. Conjunctivae normal. NECK: JVD not raised. Mass not palpable. RESPIRATORY: Effort normal. LUNGS: Decreased breath sounds. CARDIOVASCULAR: Mild expiratory wheezing. CARDIOVASCULAR: First and second sounds normal. No edema. ABDOMEN: Soft, nontender. LUNGS: Clear liver and spleen not palpable. PSYCHIATRIC: Alert and oriented x3. Mood and affect normal. INVESTIGATIONS: Potassium 4.6, glucose has dropped down to 45. ASSESSMENT: 1. Acute on chronic congestive heart failure exacerbation from diastolic dysfunction. Ejection fraction 55%, underlying hypertensive heart disease, not compensated. 2. Junctional rhythm, patient off beta alexis, now discontinued. 3. Moderate persistent asthma with acute exacerbation, improving. 4. Diabetes mellitus on oral hypoglycemic. 5. Essential hypertension. 6. Primary osteoarthritis of multiple joints bilateral. 7. Depression not otherwise specified. 8. Paroxysmal atrial fibrillation. The patient is on Coumadin. PLAN: Put the patient back on IV Solu-Medrol. Expect the sugars to actually go up. Continue current medications and treatment plan.
[2016-05-01] MEDS: methylPREDNISolone SOD SUCCI 40 MG/ML 1 ML VIAL IV SCH ×4 (01:00→23:25)
[2016-05-01 06:23] LABS: Glucose,Whole Blood 228 mg/dL (75-99)
[2016-05-01] MEDS: INSULIN LISPRO (humaLOG) 300 UNIT/3 ML VIAL SQ SCH ×7 (07:30→20:25)
[2016-05-01] MEDS: IPRATROPIUM-ALBUTEROL 3 ML NEB INHALATION SCH ×4 (09:18→18:51)
[2016-05-01] MEDS: BUDESONIDE 1 MG/2 ML NEBU INHALATION SCH ×2 (09:18→18:51)
[2016-05-01] MEDS: guaiFENesin 600 MG TABLET.ER PO SCH ×2 (09:44→20:25)
[2016-05-01] MEDS: hydrALAZINE HCL 50 MG TAB PO SCH ×3 (09:44→20:25)
[2016-05-01] MEDS: LORATADINE 10 MG TAB PO SCH (09:44)
[2016-05-01] MEDS: FERROUS SULFATE 325 MG TAB PO SCH (09:45)
[2016-05-01] MEDS: GABAPENTIN 300 MG CAP PO SCH ×2 (09:45→20:25)
[2016-05-01] MEDS: MAGNESIUM OXIDE 400 MG TAB PO SCH (09:45)
[2016-05-01] MEDS: MULTIVITAMINS, THERA 1 EACH TAB PO SCH (09:45)
[2016-05-01] MEDS: metFORMIN 500 MG TAB PO SCH (09:45)
[2016-05-01] MEDS: ASPIRIN 81 MG CHEW PO SCH (09:46)
[2016-05-01] MEDS: FAMOTIDINE 20 MG TAB PO SCH (09:46)
[2016-05-01] MEDS: LISINOPRIL 20 MG TAB PO SCH ×2 (09:46→20:25)
[2016-05-01] MEDS: SERTRALINE 100 MG TAB PO SCH (09:46)
[2016-05-01] MEDS: BRIMONIDINE TARTRATE 0.2% DROPS 5 ML BTL LEFT EYE SCH (09:50)
[2016-05-01] MEDS: FUROSEMIDE 20 MG TAB PO SCH (09:50)
[2016-05-01] MEDS: SODIUM CHLORIDE 5% OPHTH OINT 3.5 GM TUBE LEFT EYE SCH (09:51)
[2016-05-01] MEDS: TIMOLOL 0.5% OPHTH DROPS 5 ML BTL LEFT EYE SCH (09:51)
[2016-05-01 11:28] LABS: Glucose,Whole Blood 266 mg/dL (75-99)
[2016-05-01] MEDS: amLODIPine 10 MG TAB PO SCH (12:17)
[2016-05-01] MEDS ORDERED: ceFAZolin 1,000 MG in SODIUM CHLORIDE 0.9% IRRIGATIO 250 ML IRRIGATION ONE (13:32)
[2016-05-01] MEDS ORDERED: ceFAZolin 2 GM in SODIUM CHLORIDE 0.9% 100 ML IVPB ONE (13:32)
--- NOTE | 2016-05-01 13:58 | P.PN ---
Subjective Principal diagnosis: Acute exacerbation of COPD 70-year-old female patient, presented to the hospital because of worsening shortness of breath, some orthopnea without paroxysmal nocturnal dyspnea. The patient started by having symptoms of upper respiratory checked infection for which she was seen in our office and she received some antibiotic treatment. Back then the patient was complaining of some increased cough with production of greenish sputum and despite antibiotic treatment the patient became more short of breath. No worsening of the lower extremity edema. No fever or chills. Chest x-ray on the time of admission showed CHF exacerbation/ cardiomegaly with increased pulmonary vascular markings and congestion. EKG remained in normal sinus rhythm. The patient had no troponin elevation. Noted the blood pressure the time of admission was quite elevated with initial blood pressure of 204/64 and the patient's pulse ox was around 82% on room air. Clinically the patient is feeling better as the patient's blood pressure improved and is under better control. ProBNP level at time of admission was above 11,000 and the troponins are 0.013, 0.031 and 0.015 respectively 3. This patient is known to have hypertension, diabetes mellitus, hyperlipidemia, asthma and paroxysmal atrial fibrillation. No documented coronary artery disease. In terms of her asthma, the patient is demented on a combination of Advair 115/21 HFA 2 puffs twice a day as baseline and Ventolin rescue inhaler on an as-needed basis. No recurrent exacerbation of her asthma. No previous bouts of ventilator dependent respiratory failure due to asthma exacerbation. The echocardiogram from this current admission shows an ejection fraction of 50- 55%, moderately dilated LA, mild aortic valve sclerosis, moderate degree of pulmonary hypertension with a PA pressures of 46.7 mmHg. In follow-up 04/24/2016 on the selective care unit. She is awake and alert in no acute distress. She does admit to breathing easier today as compared to yesterday. She's been up ambulating in the room without acute distress. She is not utilizing BiPAP the past 24 hours. She is maintaining O2 saturations in the low 90s on 2 L/m per nasal cannula. On 04/27/2016 the patient is being seen in follow-up. She still short of breath. Her chest is congested and she is slightly bronchospastic and wheezy. She is getting short of breath with limited amount of activity. No fever. No chills. No night sweats. The patient is still on IV Solu Medrol 40 mg every 8 hours. The patient is also receiving Lasix which has been switched to oral 40 mg by mouth twice a day. On on 04/28/2016, the patient is doing slightly better compared to yesterday. No chest pain. She is less short of breath at this point. She is responding to the bronchodilators and steroids. She did have an episode of bradycardia with pauses and the junctional rhythm however this has recovered and the patient did not have any further episodes. Based on that, cardiology had recommended to stop the beta blockers. The patient remains in atrial fibrillation for now. She is known to have mild coronary artery disease and a previous cardiac catheterization. In terms of her COPD exacerbation, she continues to improve although slowly. No dizziness. No syncope. No chest pain. No other significant events over the past 24 hours. On 04/29/2016, the patient is still being treated for acute COPD exacerbation. Still bronchospastic and wheezy. No cardiac arrhythmias have been noted. No chest pain. No fever or chills. She remains on a prednisone as part of the burst taper. She is on Pulmicort Respules and Perforomist overestimates twice daily and DuoNeb nebulized treatments around the clock. Her PT/INR is subtherapeutic. Rest of the electrodes are all within normal limits. Patient was seen on 04/30/2016, continues to have to have significant wheezing and shortness of breath. Chest x-ray showed no evidence of congestive heart failure and no evidence of infiltrate, hence I felt that the findings are mostly findings of acute exacerbation of COPD. I switch the patient back from prednisone to IV Solu-Medrol. And will need to continue present bronchodilators for now. Clearly the patient is not having any findings to suggest congestive heart failure. Labs were reviewed, her BUN is up to 62 creatinine is 0.9. Hence I will recommend cutting down the Lasix to 20 mg daily instead of 40 mg daily. Patient was seen today on 05/01/2016, definitely improved compared to yesterday, less cough and less wheezing less shortness of breath. But she continues to wheeze. Labs were reviewed, BUN is down to 62 creatinine is down to 0.90. Objective - Vital Signs Vital signs: Vital Signs Temp 98.3 F 05/01/16 12:00 Pulse 68 05/01/16 12:12 Resp 16 05/01/16 12:00 BP 160/60 05/01/16 12:00 Pulse Ox 92 L 05/01/16 12:00 Intake & Output 04/30/16 05/01/16 05/01/16 18:59 06:59 18:59 Intake Total 727 435 480 Balance 727 435 480 Weight 98.3 kg 98.7 kg Intake: IV 22 10 Invasive Line 3 22 10 Oral 705 425 480 Other: Voiding Method Toilet Toilet # Voids 1 # Bowel Movements 1 - Exam Physical Exam: Revealed a 70-year-old female in mild respiratory distress, with diffuse rhonchi and wheezes bilaterally. HEENT:[Neck is supple.] [No neck masses.] [No thyromegaly.] [No JVD.] Chest: [Wheezing on forced expiratory maneuver noted..] Cardiac Exam: Irregular irregular rhythm, 2/6 systolic murmur throughout the precordium.] Abdomen: [Soft, nontender, no megaly, no rebound, no guarding, normal bowel sounds.] Extremities: [No clubbing, no edema, no cyanosis.] Neurological Exam: [No focal neurologic deficit.] - Labs CBC & Chem 7: 04/25/16 07:53 04/30/16 05:48 Labs: Abnormal Lab Results - Last 24 Hours (Table) 04/30/16 04/30/16 05/01/16 Range/Units 16:57 20:44 06:21 POC Glucose (mg/dL) 219 H 302 H 228 H (75-99) mg/dL 05/01/16 Range/Units 11:20 POC Glucose (mg/dL) 266 H (75-99) mg/dL Assessment and Plan Plan: 1 acute CHF/diastolic dysfunction, improving 2 asthma exacerbation secondary to upper respiratory tract infection, no evidence of infiltrate on the chest x-ray. 3 paroxysmal atrial fibrillation, with a single episode of junctional rhythm. Patient was taken off the beta blockers. The patient is on warfarin and the PT/ INR is subtherapeutic at this point 4 hypertension with poorly controlled blood pressure at time of admission, currently under better control as the patient is taking a combination of amlodipine, Zestoretic, hydralazine and Lasix. 5 diabetes mellitus 6 hyperlipidemia 7 mild coronary artery disease based on a previous cardiac catheterization at was done 2013 Recommendation: Continue present treatment plan, not ready for discharge planning, continue Solu-Medrol today, possibly switch to oral prednisone tomorrow and consider discharge planning in the next 24 hours. Time with Patient: Less than 30
--- NOTE | 2016-05-01 14:42 | PN ---
Mrs. Montes is a 70-year-old female with history of chronic obstructive lung disease, history of paroxysmal atrial fibrillation who presented with symptoms of progressive dyspnea. She continues to be in atrial fibrillation, but she has continued to have episode of pauses in spite of being off the beta alexis now for more than 48 hours. She is feeling better today. Her breathing is better. She denies any chest pain. No dizziness. No palpitation. She is ambulating. She continues on aspirin, Lasix 20 mg daily, insulin, lisinopril 20 mg twice a day, amlodipine 10 mg daily, hydralazine 100 mg 3 times a day and Coumadin. PHYSICAL EXAMINATION: Her blood pressure running 160/60 with a heart rate in 60s. Lungs with decreased air exchange. No wheezes. HEART: Regular rate and rhythm. S1, S2, no S3, with a systolic murmur. ABDOMEN: Soft, nontender. EXTREMITIES: No edema. Lab data revealed a BUN and creatinine 62 and 0.9. Potassium 4.6, INR 1.4. IMPRESSION: 1. Sick sinus syndrome with episode of bradycardia. 2. Dyspnea with a combination of chronic obstructive pulmonary disease and element of congestive heart failure. 3. History of hyperlipidemia. 4. Diabetes mellitus. 5. Hypertension. RECOMMENDATION: From the cardiac standpoint, because of the persistent episode of bradycardia in spite of being of the beta alexis for 48 hours, I have recommended proceeding with permanent pacemaker implantation. I have discussed her case with Dr. Hastings. She will proceed with the procedure tomorrow. The risks and complications of the procedure were discussed with her. I will hold her Coumadin today and proceed with the procedure tomorrow.
[2016-05-01 16:24] LABS: Glucose,Whole Blood 139 mg/dL (75-99)
[2016-05-01] MEDS: INSULIN DETEMIR 100 UNIT/ML 10 ML VIAL SQ SCH (17:28)
[2016-05-01 17:41] LABS: INR 1.8 (<1.1); Prothrombin Time 17.8 sec (9.0-12.0)
[2016-05-01 20:34] LABS: Glucose,Whole Blood 225 mg/dL (75-99)
--- NOTE | 2016-05-01 21:09 | PN ---
DATE OF SERVICE: 05/01/2016 PRESENTING COMPLAINT: Tired. INTERVAL HISTORY: This is a patient with asthma exacerbation, COPD exacerbation. Initially had junctional rhythm, beta alexis discontinued. Patient started going into sinus pauses from yesterday. The patient did ( ) further pause. Dr. Juarez finally decided to proceed with a pacemaker placement. The patient overall remains much asymptomatic in these episodes. Review of systems done for constitutional, cardiovascular, GI, pulmonary; relevant findings as above, wheezing is getting better. Current medications are reviewed and include IV Solu-Medrol. On examination temperature 98.3, pulse 47, respiration 16, blood pressure 160/60, pulse ox 92% on room air. GENERAL APPEARANCE: Sitting up, tired appearing. EYES: Pupils equal. Conjunctivae normal. NECK: JVD not raised. RESPIRATORY: Effort normal. LUNGS: Decreased breath sounds. CARDIOVASCULAR: First and second sounds normal. No edema. ABDOMEN: Soft, nontender. Liver and spleen not palpable. PSYCHIATRY: Alert and oriented x3. Mood and affect tired appearing. INVESTIGATIONS: Accu-Cheks are noted. INR is 1.8. ASSESSMENT: 1. Acute on chronic congestive heart failure from diastolic dysfunction, ejection fraction 55%, from underlying hypertensive heart disease compensated. 2. Junctional rhythm and sinus pauses from patient being on beta alexis and probably underlying sinus disease. 3. Moderate persistent asthma with acute exacerbation. 4. Diabetes mellitus, type II on oral hypoglycemic. 5. Essential hypertension. 6. Primary osteoarthritis of multiple joints, bilateral. 7. Depression, not otherwise specified. 8. ( ) history of, the patient is on Coumadin. PLAN: Continue current medication and treatment plan. The patient is on IV Solu-Medrol per pulmonary. Patient's INR is 1.8. Cardiology proceeding with pacemaker.
[2016-05-01] MEDS: SODIUM CHLORIDE 0.9% 1,000 ML IV SCH (21:49)
[2016-05-02] MEDS: INSULIN LISPRO (humaLOG) 300 UNIT/3 ML VIAL SQ SCH ×7 (00:07→21:17)
[2016-05-02] MEDS: metFORMIN 500 MG TAB PO SCH (00:08)
[2016-05-02] MEDS: MAGNESIUM OXIDE 400 MG TAB PO SCH (05:27)
[2016-05-02] MEDS: hydrALAZINE HCL 50 MG TAB PO SCH ×3 (05:27→21:13)
[2016-05-02] MEDS: SERTRALINE 100 MG TAB PO SCH (05:28)
[2016-05-02] MEDS: MULTIVITAMINS, THERA 1 EACH TAB PO SCH (05:28)
[2016-05-02] MEDS: LORATADINE 10 MG TAB PO SCH (05:28)
[2016-05-02] MEDS: GABAPENTIN 300 MG CAP PO SCH ×2 (05:28→21:17)
[2016-05-02] MEDS: amLODIPine 10 MG TAB PO SCH (05:28)
[2016-05-02] MEDS: guaiFENesin 600 MG TABLET.ER PO SCH ×2 (05:28→21:12)
[2016-05-02] MEDS: LISINOPRIL 20 MG TAB PO SCH (05:28)
[2016-05-02] MEDS: FERROUS SULFATE 325 MG TAB PO SCH (05:28)
[2016-05-02] MEDS: FAMOTIDINE 20 MG TAB PO SCH (05:28)
[2016-05-02] MEDS: ASPIRIN 81 MG CHEW PO SCH (05:28)
[2016-05-02] MEDS: BRIMONIDINE TARTRATE 0.2% DROPS 5 ML BTL LEFT EYE SCH (05:32)
[2016-05-02] MEDS: SODIUM CHLORIDE 5% OPHTH OINT 3.5 GM TUBE LEFT EYE SCH ×2 (05:32→05:33)
[2016-05-02] MEDS: TIMOLOL 0.5% OPHTH DROPS 5 ML BTL LEFT EYE SCH (05:32)
[2016-05-02 06:16] LABS: INR 1.6 (<1.1); Prothrombin Time 15.7 sec (9.0-12.0)
[2016-05-02 06:21] LABS: Glucose,Whole Blood 232 mg/dL (75-99)
[2016-05-02 06:24] LABS: Anion Gap 11 mmol/L; Blood Urea Nitrogen 59 mg/dL (7-17); Calcium 10.3 mg/dL (8.4-10.2); Carbon Dioxide 32 mmol/L (22-30); Chloride 99 mmol/L (98-107); Glucose 257 mg/dL (74-99); Non-African American GFR(MDRD) 51 (>60 ml/min/1.73 sqM); Potassium 5.8 mmol/L (3.5-5.1); Sodium 142 mmol/L (137-145)
[2016-05-02] MEDS ORDERED: LIDOCAINE 1% INJ 10MG/ML (20 ML MDV) ONE (07:25)
[2016-05-02] MEDS ORDERED: SODIUM CHLORIDE 0.9% 1,000 ML IV ONE (07:28)
[2016-05-02] MEDS ORDERED: IODIXANOL 320 MG/ML 100 ML IV ONE (07:40)
[2016-05-02] MEDS: IPRATROPIUM-ALBUTEROL 3 ML NEB INHALATION SCH ×4 (07:52→20:53)
[2016-05-02] MEDS: BUDESONIDE 1 MG/2 ML NEBU INHALATION SCH ×3 (07:52→20:53)
[2016-05-02] MEDS ORDERED: fentaNYL (PF) 50 MCG/ML 2 ML AMP ONE (07:55)
[2016-05-02] MEDS ORDERED: MIDAZOLAM 2 MG/2 ML VIAL ONE (07:55)
[2016-05-02] MEDS ORDERED: ceFAZolin 1,000 MG/50 ML BAG (PMX) IVPB ONE (08:02)
[2016-05-02] MEDS ORDERED: fentaNYL (PF) 50 MCG/ML 2 ML AMP IV ONE (08:07)
[2016-05-02] MEDS: MIDAZOLAM 2 MG/2 ML VIAL IV ONE ×2 (08:07→08:17)
[2016-05-02] MEDS ORDERED: LIDOCAINE 2% INJ 20 MG/ML SQ ONE (08:08)
[2016-05-02] MEDS ORDERED: hydrALAZINE HCL 20 MG/ML 1 ML VIAL ONE (08:21)
[2016-05-02] MEDS ORDERED: hydrALAZINE HCL 20 MG/ML 1 ML VIAL IVP ONE (08:23)
[2016-05-02] MEDS ORDERED: HYDROcodone/APAP 5-325MG 1 EACH TAB PO PRN (09:11)
--- NOTE | 2016-05-02 09:18 | P.PCN ---
Date of Procedure: 05/02/16 Preoperative Diagnosis: Sick sinus syndrome with paroxysmal atrial fibrillation and sinus pauses and bradycardia. Postoperative Diagnosis: The same Procedure(s) Performed: Dual-chamber Permanent pacemaker implantation, axillary venography Description of Procedure: HISTORY: This is a 70-year-old female with history of paroxysmal atrial fibrillation who was noted to have evidence of sinus bradycardia and sinus pauses up to 3 seconds. Because of tachybradycardia syndrome and need for beta alexis therapy, patient was advised to have permanent pacemaker implantation. CONSENT:I have discussed the risks, benefits and alternative therapies for the above-mentioned procedure and for both sedation/analgesia as well as necessary blood product administration, if indicated, as they pertain to this patient. The patient has indicated understanding and acceptance of the risks and procedures discussed. PROCEDURE: Patient was brought to the lab in a fasting state. Patient was prepped and draped in the usual fashion. Patient was given IV sedation with fentanyl and Versed. The skin below the left clavicle was infiltrated with lidocaine. An incision was made parallel to deltopectoral groove was deepened until the pectoral fascia was exposed. A pocket was created by blunt dissection and cautery. Axillary venography was performed to delineate the course of the axillary vein. 2 sticks were performed into extrathoracic portion of the axillary vein and 2 sheaths were advanced over the guidewires and left in subclavian vein. LEADS: ATRIAL: This is manufactured by [employer]. Model number is 7741. Serial number is [id number] VENTRICULAR: This is manufactured by [employer]. Model number is 7742 and the serial number is [id number]. The device: THIS IS MANUFACTURED BY [employer]. MODEL NUMBER IS [id number] AND THE SERIAL NUMBER IS [id number]. The ventricular lead is maneuvered l with help of a straight and curved stylets into the left ventricle apical region. Satisfactory position was obtained and threshold measurements were made. The atrial lead was then maneuvered into the right atrial appendage. And thresholds were obtained. THRESHOLDS: ATRIUM: The minimal patient threshold was 0.7 V at pulse width of 0.5 ms. The impedance is 6 and 84 ohms . P-wave: 2.2 mV VENTRICLE Nils the minimal patient threshold is 0.4 V at a pulse width of 0.5 ms. The impedance is 821 ohms. R-wave: 17 mV The leads and pulse generator remained in the pocket after it was washed with antibiotics. Pocket was closed in the usual fashion. The fascia was closed with 2-0 Prolene ,the subcutaneous tissue was closed with 3-0 Prolene and the skin was closed with 4-0 Prolene. PROGRAMMING: MODE: DDDR RATE: 60-120 OUTPUT: Atrium: 3.5 at 0.5 ms ventricle Nils 3.5 at 0.5 ms FINAL IMPRESSION: #1 axillary venography #2. Successful implantation of dual- chamber pacemaker. COMPLICATIONS: None. PLAN: Patient will be monitored on the telemetry unit. Prophylactic antibacterial be continued. Chest x-ray in the morning.
[2016-05-02] MEDS ORDERED: LISINOPRIL 10 MG TAB PO SCH (09:45)
[2016-05-02] MEDS: methylPREDNISolone SOD SUCCI 40 MG/ML 1 ML VIAL IV SCH (10:17)
[2016-05-02] MEDS: METOPROLOL TARTRATE 25 MG TAB PO SCH ×2 (10:38→21:13)
[2016-05-02 11:36] LABS: Glucose,Whole Blood 137 mg/dL (75-99)
[2016-05-02] MEDS: FUROSEMIDE 20 MG TAB PO SCH (12:26)
[2016-05-02] MEDS: predniSONE 10 MG TAB PO SCH (13:05)
--- NOTE | 2016-05-02 13:25 | P.PN ---
Subjective Principal diagnosis: Acute exacerbation of COPD 70-year-old female patient, presented to the hospital because of worsening shortness of breath, some orthopnea without paroxysmal nocturnal dyspnea. The patient started by having symptoms of upper respiratory checked infection for which she was seen in our office and she received some antibiotic treatment. Back then the patient was complaining of some increased cough with production of greenish sputum and despite antibiotic treatment the patient became more short of breath. No worsening of the lower extremity edema. No fever or chills. Chest x-ray on the time of admission showed CHF exacerbation/ cardiomegaly with increased pulmonary vascular markings and congestion. EKG remained in normal sinus rhythm. The patient had no troponin elevation. Noted the blood pressure the time of admission was quite elevated with initial blood pressure of 204/64 and the patient's pulse ox was around 82% on room air. Clinically the patient is feeling better as the patient's blood pressure improved and is under better control. ProBNP level at time of admission was above 11,000 and the troponins are 0.013, 0.031 and 0.015 respectively 3. This patient is known to have hypertension, diabetes mellitus, hyperlipidemia, asthma and paroxysmal atrial fibrillation. No documented coronary artery disease. In terms of her asthma, the patient is demented on a combination of Advair 115/21 HFA 2 puffs twice a day as baseline and Ventolin rescue inhaler on an as-needed basis. No recurrent exacerbation of her asthma. No previous bouts of ventilator dependent respiratory failure due to asthma exacerbation. The echocardiogram from this current admission shows an ejection fraction of 50- 55%, moderately dilated LA, mild aortic valve sclerosis, moderate degree of pulmonary hypertension with a PA pressures of 46.7 mmHg. In follow-up 04/24/2016 on the selective care unit. She is awake and alert in no acute distress. She does admit to breathing easier today as compared to yesterday. She's been up ambulating in the room without acute distress. She is not utilizing BiPAP the past 24 hours. She is maintaining O2 saturations in the low 90s on 2 L/m per nasal cannula. On 04/27/2016 the patient is being seen in follow-up. She still short of breath. Her chest is congested and she is slightly bronchospastic and wheezy. She is getting short of breath with limited amount of activity. No fever. No chills. No night sweats. The patient is still on IV Solu Medrol 40 mg every 8 hours. The patient is also receiving Lasix which has been switched to oral 40 mg by mouth twice a day. On on 04/28/2016, the patient is doing slightly better compared to yesterday. No chest pain. She is less short of breath at this point. She is responding to the bronchodilators and steroids. She did have an episode of bradycardia with pauses and the junctional rhythm however this has recovered and the patient did not have any further episodes. Based on that, cardiology had recommended to stop the beta blockers. The patient remains in atrial fibrillation for now. She is known to have mild coronary artery disease and a previous cardiac catheterization. In terms of her COPD exacerbation, she continues to improve although slowly. No dizziness. No syncope. No chest pain. No other significant events over the past 24 hours. On 04/29/2016, the patient is still being treated for acute COPD exacerbation. Still bronchospastic and wheezy. No cardiac arrhythmias have been noted. No chest pain. No fever or chills. She remains on a prednisone as part of the burst taper. She is on Pulmicort Respules and Perforomist overestimates twice daily and DuoNeb nebulized treatments around the clock. Her PT/INR is subtherapeutic. Rest of the electrodes are all within normal limits. Patient was seen on 04/30/2016, continues to have to have significant wheezing and shortness of breath. Chest x-ray showed no evidence of congestive heart failure and no evidence of infiltrate, hence I felt that the findings are mostly findings of acute exacerbation of COPD. I switch the patient back from prednisone to IV Solu-Medrol. And will need to continue present bronchodilators for now. Clearly the patient is not having any findings to suggest congestive heart failure. Labs were reviewed, her BUN is up to 62 creatinine is 0.9. Hence I will recommend cutting down the Lasix to 20 mg daily instead of 40 mg daily. Patient was seen today on 05/01/2016, definitely improved compared to yesterday, less cough and less wheezing less shortness of breath. But she continues to wheeze. Labs were reviewed, BUN is down to 62 creatinine is down to 0.90. Patient was reevaluated today on 05/02/2016, feeling much better, breathing a lot easier, less cough and less wheezing, and she had a pacemaker implantation done today for what seemed to be a picture of intermittent episodes of sinus pauses and profound bradycardia. Today I recommended changing the Solu-Medrol to prednisone orally, and I believe possibly patient could be considered for discharge planning in the next 24 hours. Her renal profile is about the same, BUN is 59 and creatinine is 1.07. Objective - Vital Signs Vital signs: Vital Signs Temp 97.4 F L 05/02/16 11:16 Pulse 60 05/02/16 12:46 Resp 16 05/02/16 12:46 BP 145/87 05/02/16 12:46 Pulse Ox 94 L 05/02/16 11:16 Intake & Output 05/01/16 05/02/16 05/02/16 18:59 06:59 18:59 Intake Total 720 220 320 Output Total 600 800 Balance 720 -380 -480 Weight 98 kg Intake: IV 200 Intake, IV Titration 20 Amount Sodium Chloride 0.9% 1, 20 000 ml @ 20 mls/hr IV . [facility] Rx#:[id number] Oral 720 200 120 Output: Urine 600 800 Other: Voiding Method Toilet Toilet Toilet # Voids 1 1 # Bowel Movements 1 - Exam Physical Exam: Revealed a 70-year-old female in no form of respiratory distress. EENT:[Neck is supple.] [No neck masses.] [No thyromegaly.] [No JVD.] Chest: [Wheezing on forced expiratory maneuver noted..] Cardiac Exam: Irregular irregular rhythm, 2/6 systolic murmur throughout the precordium.] Abdomen: [Soft, nontender, no megaly, no rebound, no guarding, normal bowel sounds.] Extremities: [No clubbing, no edema, no cyanosis.] Neurological Exam: [No focal neurologic deficit.] - Labs CBC & Chem 7: 04/25/16 07:53 05/02/16 05:44 Labs: Abnormal Lab Results - Last 24 Hours (Table) 05/01/16 05/01/16 05/01/16 Range/Units 16:21 17:15 20:19 PT 17.8 H (9.0-12.0) sec Potassium (3.5-5.1) mmol/L Carbon Dioxide (22-30) mmol/L BUN (7-17) mg/dL Creatinine (0.52-1.04) mg/dL Glucose (74-99) mg/dL POC Glucose (mg/dL) 139 H 225 H (75-99) mg/dL Calcium (8.4-10.2) mg/dL 05/02/16 05/02/16 05/02/16 Range/Units 05:44 05:44 06:19 PT 15.7 H (9.0-12.0) sec Potassium 5.8 H (3.5-5.1) mmol/L Carbon Dioxide 32 H (22-30) mmol/L BUN 59 H (7-17) mg/dL Creatinine 1.07 H (0.52-1.04) mg/dL Glucose 257 H (74-99) mg/dL POC Glucose (mg/dL) 232 H (75-99) mg/dL Calcium 10.3 H (8.4-10.2) mg/dL 05/02/16 Range/Units 11:35 PT (9.0-12.0) sec Potassium (3.5-5.1) mmol/L Carbon Dioxide (22-30) mmol/L BUN (7-17) mg/dL Creatinine (0.52-1.04) mg/dL Glucose (74-99) mg/dL POC Glucose (mg/dL) 137 H (75-99) mg/dL Calcium (8.4-10.2) mg/dL Assessment and Plan Plan: 1 acute CHF/diastolic dysfunction, improving 2 asthma exacerbation secondary to upper respiratory tract infection, no evidence of infiltrate on the chest x-ray. 3 paroxysmal atrial fibrillation, with a single episode of junctional rhythm. Patient was taken off the beta blockers. The patient is on warfarin and the PT/ INR is subtherapeutic at this point 4 hypertension with poorly controlled blood pressure at time of admission, currently under better control as the patient is taking a combination of amlodipine, Zestoretic, hydralazine and Lasix. 5 diabetes mellitus 6 hyperlipidemia 7 mild coronary artery disease based on a previous cardiac catheterization at was done 2013 8 status post pacemaker implantation for what seems to be sinus pauses and profound bradycardia. Recommendation: Continue present treatment plan, I will switch Solu-Medrol to prednisone 30 mg daily, and possibly consider discharge planning in the next 24 hours. Time with Patient: Less than 30
[2016-05-02] MEDS: ceFAZolin 2 GM in SODIUM CHLORIDE 0.9% 100 ML IVPB SCH ×2 (14:24→21:13)
--- NOTE | 2016-05-02 15:30 | P.PN ---
Subjective Principal diagnosis: Shortness of breath This is a 70-year-old female who follows regularly with Dr. Mauro in the office. She has a known history of diabetes, hypertension, hyperlipidemia, paroxysmal atrial fibrillation, asthma, presented to the hospital with symptoms of shortness of breath with associated productive cough of green sputum. He is currently being treated for exacerbation of COPD along with chronic bronchitis. Patient did have an element of diastolic congestive heart failure on admission here also and diuresed well on IV Lasix. Currently on PO Lasix. Because of significant pauses and persistent bradycardia patient underwent implantation of a permanent pacemaker today. She was seen and examined, overall feeling well. Blood pressure significantly elevated earlier this morning, she was put on Lopressor, blood pressure this afternoon 116/68. Objective - Vital Signs Vital signs: Vital Signs Temp 97.4 F L 05/02/16 13:46 Pulse 60 05/02/16 13:46 Resp 20 05/02/16 13:46 BP 143/74 05/02/16 13:46 Pulse Ox 94 L 05/02/16 11:16 Intake & Output 05/01/16 05/02/16 05/02/16 18:59 06:59 18:59 Intake Total 720 220 320 Output Total 600 1500 Balance 720 -380 -1180 Weight 98 kg Intake: IV 200 Intake, IV Titration 20 Amount Sodium Chloride 0.9% 1, 20 000 ml @ 20 mls/hr IV . Q24H REPLACED BY [facility] Rx#:[id number] Oral 720 200 120 Output: Urine 600 1500 Other: Voiding Method Toilet Toilet Toilet # Voids 1 1 # Bowel Movements 1 - Exam PHYSICAL EXAMINATION: HEENT: [Head is atraumatic, normocephalic. Pupils equal, round. Neck is supple. There is no elevated jugular venous pressure.] HEART EXAMINATION: S1 and S2 normal , site of pacemaker implantation dressing is dry and intact. CHEST EXAMINATION: Lungs reveal scattered coarse wheezing throughout. ABDOMEN: [ Soft, nontender. Bowel sounds are heard. No organomegaly noted]. EXTREMITIES:[ 2+ peripheral pulses with trace evidence of peripheral edema and no calf tenderness noted]. NEUROLOGIC [patient is awake, alert and oriented -3.] . - Labs CBC & Chem 7: 04/25/16 07:53 05/02/16 05:44 Labs: Abnormal Lab Results - Last 24 Hours (Table) 05/01/16 05/01/16 05/01/16 Range/Units 16:21 17:15 20:19 PT 17.8 H (9.0-12.0) sec Potassium (3.5-5.1) mmol/L Carbon Dioxide (22-30) mmol/L BUN (7-17) mg/dL Creatinine (0.52-1.04) mg/dL Glucose (74-99) mg/dL POC Glucose (mg/dL) 139 H 225 H (75-99) mg/dL Calcium (8.4-10.2) mg/dL 05/02/16 05/02/16 05/02/16 Range/Units 05:44 05:44 06:19 PT 15.7 H (9.0-12.0) sec Potassium 5.8 H (3.5-5.1) mmol/L Carbon Dioxide 32 H (22-30) mmol/L BUN 59 H (7-17) mg/dL Creatinine 1.07 H (0.52-1.04) mg/dL Glucose 257 H (74-99) mg/dL POC Glucose (mg/dL) 232 H (75-99) mg/dL Calcium 10.3 H (8.4-10.2) mg/dL 05/02/16 Range/Units 11:35 PT (9.0-12.0) sec Potassium (3.5-5.1) mmol/L Carbon Dioxide (22-30) mmol/L BUN (7-17) mg/dL Creatinine (0.52-1.04) mg/dL Glucose (74-99) mg/dL POC Glucose (mg/dL) 137 H (75-99) mg/dL Calcium (8.4-10.2) mg/dL Assessment and Plan Plan: Assessment and plan #1 symptoms of chest congestion with associated productive cough of green sputum , suggestive of possible tracheobronchitis, with exacerbation of patient currently on IV antibiotics #2 exacerbation of congestive heart failure, likely diastolic in nature, most recent echocardiogram with Doppler study was performed in August 2014 which revealed an ejection fraction of 50-55%. #3 paroxysmal atrial fibrillation, on Coumadin, #4 accelerated hypertension #5 diabetes #6 hyperlipidemia #7 history of asthma #8 no significant obstructive coronary artery disease by cardiac catheterization performed in 2013 #9 hypomagnesemia #10 sinus bradycardia, status post pacemaker implantation. Plan From cardiology's perspective, we will start the patient on Lopressor 25 mg one by mouth twice a day. We will also reinitiate the patient's Coumadin. Chest x- ray in the morning, if the chest x-ray and device interrogation look good in the morning she may be able to be discharged home tomorrow. DNP note has been reviewed, I agree with a documented findings and plan of care. Patient was seen and examined.
[2016-05-02 16:43] LABS: Glucose,Whole Blood 277 mg/dL (75-99)
[2016-05-02] MEDS: INSULIN DETEMIR 100 UNIT/ML 10 ML VIAL SQ SCH (17:05)
[2016-05-02] MEDS ORDERED: WARFARIN 7.5 MG TAB PO ONE (18:00)
[2016-05-02] MEDS ORDERED: SODIUM POLYSTYRENE SULFONATE 15 GM/60 ML BOTTLE PO STA (18:53)
[2016-05-02 21:06] LABS: Glucose,Whole Blood 275 mg/dL (75-99)
[2016-05-02] MEDS: SODIUM CHLORIDE 0.9% 1,000 ML IV SCH (21:14)
--- NOTE | 2016-05-02 22:45 | PN ---
DATE OF SERVICE: 05/02/2016 PRESENTING COMPLAINT: Tired. INTERVAL HISTORY: This is a patient presented with asthma exacerbation and an element of CHF exacerbation and beta blockers, went into junctional rhythm. Also started having some significant sinus pauses. Patient today underwent a pacemaker by Dr. Hastings. Left arm in a sling, comfortable with very slight wheezing. Review of systems done for constitutional, cardiovascular, GI, pulmonary; relevant findings as above. Current medications are reviewed that include IV Ancef and oral prednisone. On examination, temperature 97.1, pulse 63, respiratory rate 20, blood pressure 133/94, pulse ox 93% on room air. GENERAL APPEARANCE: Propped up in bed, comfortable. EYES: Pupils equal. Conjunctivae normal. NECK: JVD not raised. Mass not palpable. RESPIRATORY: Effort normal. LUNGS: Decreased breath sounds. CARDIOVASCULAR: First and second normal. No edema. ABDOMEN: Soft, nontender. Liver and spleen not palpable. PSYCHIATRY: Alert and oriented x3. Mood and affect normal. INVESTIGATIONS: Potassium 5.8. BUN 59, creatinine 1.07. Accu-Cheks are noted. INR 1.6. ASSESSMENT: 1. Acute on chronic congestive heart failure from diastolic dysfunction, ejection fraction 55%, from underlying hypertensive heart disease, compensated. 2. Junctional rhythm in sinus pauses, both from the patient on beta alexis from underlying sinus disease. 3. Moderate persistent asthma with acute exacerbation with improvement. 4. Diabetes mellitus type 2 on oral hypoglycemics. Somewhat uncontrolled from steroids. 5. Essential hypertension. 6. Primary osteoarthritis of multiple joints, bilateral. 7. Depression, not otherwise specified. 8. History of atrial flutter fibrillation, chronically on Coumadin. 9. Hyperkalemia. PLAN: We will hold off patient's Zestril from the morning. Will check patient's potassium again to make it is up and go from there.
[2016-05-03] MEDS: ceFAZolin 2 GM in SODIUM CHLORIDE 0.9% 100 ML IVPB SCH ×2 (03:17→09:10)
[2016-05-03 05:50] LABS: Glucose,Whole Blood 154 mg/dL (75-99)
[2016-05-03 06:40] LABS: Basophils % (A) 0 %; CH 25.2; CHCM 30.8; Eosinophils % (A) 0 %; HCT 49.7 % (34.0-46.0); HDW 2.57; HGB 15.1 gm/dL (11.4-16.0); Hypochromasia Slight; Luc # (Auto) 0.13; Luc % (Auto) 1; Lymphocytes # (A) 2.3 k/uL (1.0-4.8); Lymphocytes % (A) 14 %; MCH 24.8 pg (25.0-35.0); MCHC 30.4 g/dL (31.0-37.0); MCV 81.8 fL (80.0-100.0); Mean Platelet Volume 6.7; Monocytes % (A) 6 %; Neutrophils # (A) 12.7 k/uL (1.3-7.7); Neutrophils % (A) 79 %; RBC 6.08 m/uL (3.80-5.40); RDW 15.2 % (11.5-15.5); WBC 16.1 k/uL (3.8-10.6); WBC (Perox) 15.97
[2016-05-03 06:43] LABS: INR 1.7 (<1.1); Prothrombin Time 16.5 sec (9.0-12.0)
[2016-05-03] MEDS: hydrALAZINE HCL 50 MG TAB PO SCH ×3 (06:49→20:51)
[2016-05-03 06:53] LABS: Anion Gap 7 mmol/L; Blood Urea Nitrogen 43 mg/dL (7-17); Calcium 9.4 mg/dL (8.4-10.2); Carbon Dioxide 33 mmol/L (22-30); Chloride 102 mmol/L (98-107); Glucose 168 mg/dL (74-99); Magnesium 2.1 mg/dL (1.6-2.3); Non-African American GFR(MDRD) >60 (>60 ml/min/1.73 sqM); Potassium 4.6 mmol/L (3.5-5.1); Sodium 142 mmol/L (137-145)
[2016-05-03] MEDS: INSULIN LISPRO (humaLOG) 300 UNIT/3 ML VIAL SQ SCH ×7 (07:10→20:50)
--- NOTE | 2016-05-03 08:17 | XR ---
EXAMINATION TYPE: XR chest 2V DATE OF EXAM: 05/03/2016 6:45 AM COMPARISON: Prior chest x-ray April HISTORY: Lead placement check TECHNIQUE: Frontal and lateral views of the chest are obtained. FINDINGS: There is been interval placement of a generator in the left pectoral region, there are kaleigh ds in the right atrium and ventricle. No evident pneumothorax or pleural effusion. Patient is rotated . There are overlying cardiac leads. IMPRESSION: No evident complication status post pacemaker placement.
[2016-05-03] MEDS: IPRATROPIUM-ALBUTEROL 3 ML NEB INHALATION SCH ×4 (08:58→19:56)
[2016-05-03] MEDS: BUDESONIDE 1 MG/2 ML NEBU INHALATION SCH ×2 (08:58→19:56)
[2016-05-03] MEDS ORDERED: LISINOPRIL 10 MG TAB PO SCH (09:00)
[2016-05-03] MEDS: predniSONE 10 MG TAB PO SCH (09:10)
[2016-05-03] MEDS: metFORMIN 500 MG TAB PO SCH (09:10)
[2016-05-03] MEDS: guaiFENesin 600 MG TABLET.ER PO SCH ×2 (09:11→20:50)
[2016-05-03] MEDS: METOPROLOL TARTRATE 25 MG TAB PO SCH (09:11)
[2016-05-03] MEDS: ASPIRIN 81 MG CHEW PO SCH (09:11)
[2016-05-03] MEDS: TIMOLOL 0.5% OPHTH DROPS 5 ML BTL LEFT EYE SCH (09:11)
[2016-05-03] MEDS: SERTRALINE 100 MG TAB PO SCH (09:11)
[2016-05-03] MEDS: LORATADINE 10 MG TAB PO SCH (09:11)
[2016-05-03] MEDS: MAGNESIUM OXIDE 400 MG TAB PO SCH (09:12)
[2016-05-03] MEDS: FERROUS SULFATE 325 MG TAB PO SCH (09:12)
[2016-05-03] MEDS: GABAPENTIN 300 MG CAP PO SCH ×2 (09:12→20:50)
[2016-05-03] MEDS: FAMOTIDINE 20 MG TAB PO SCH (09:12)
[2016-05-03] MEDS: FUROSEMIDE 20 MG TAB PO SCH (09:12)
[2016-05-03] MEDS: MULTIVITAMINS, THERA 1 EACH TAB PO SCH (09:12)
[2016-05-03] MEDS: SODIUM CHLORIDE 5% OPHTH OINT 3.5 GM TUBE LEFT EYE SCH (09:12)
[2016-05-03] MEDS: BRIMONIDINE TARTRATE 0.2% DROPS 5 ML BTL LEFT EYE SCH (09:12)
[2016-05-03] MEDS: amLODIPine 10 MG TAB PO SCH (09:12)
[2016-05-03 12:14] LABS: Glucose,Whole Blood 100 mg/dL (75-99)
--- NOTE | 2016-05-03 12:30 | P.PN ---
Subjective Principal diagnosis: Acute exacerbation of COPD 70-year-old female patient, presented to the hospital because of worsening shortness of breath, some orthopnea without paroxysmal nocturnal dyspnea. The patient started by having symptoms of upper respiratory checked infection for which she was seen in our office and she received some antibiotic treatment. Back then the patient was complaining of some increased cough with production of greenish sputum and despite antibiotic treatment the patient became more short of breath. No worsening of the lower extremity edema. No fever or chills. Chest x-ray on the time of admission showed CHF exacerbation/ cardiomegaly with increased pulmonary vascular markings and congestion. EKG remained in normal sinus rhythm. The patient had no troponin elevation. Noted the blood pressure the time of admission was quite elevated with initial blood pressure of 204/64 and the patient's pulse ox was around 82% on room air. Clinically the patient is feeling better as the patient's blood pressure improved and is under better control. ProBNP level at time of admission was above 11,000 and the troponins are 0.013, 0.031 and 0.015 respectively 3. This patient is known to have hypertension, diabetes mellitus, hyperlipidemia, asthma and paroxysmal atrial fibrillation. No documented coronary artery disease. In terms of her asthma, the patient is demented on a combination of Advair 115/21 HFA 2 puffs twice a day as baseline and Ventolin rescue inhaler on an as-needed basis. No recurrent exacerbation of her asthma. No previous bouts of ventilator dependent respiratory failure due to asthma exacerbation. The echocardiogram from this current admission shows an ejection fraction of 50- 55%, moderately dilated LA, mild aortic valve sclerosis, moderate degree of pulmonary hypertension with a PA pressures of 46.7 mmHg. In follow-up 04/24/2016 on the selective care unit. She is awake and alert in no acute distress. She does admit to breathing easier today as compared to yesterday. She's been up ambulating in the room without acute distress. She is not utilizing BiPAP the past 24 hours. She is maintaining O2 saturations in the low 90s on 2 L/m per nasal cannula. On 04/27/2016 the patient is being seen in follow-up. She still short of breath. Her chest is congested and she is slightly bronchospastic and wheezy. She is getting short of breath with limited amount of activity. No fever. No chills. No night sweats. The patient is still on IV Solu Medrol 40 mg every 8 hours. The patient is also receiving Lasix which has been switched to oral 40 mg by mouth twice a day. On on 04/28/2016, the patient is doing slightly better compared to yesterday. No chest pain. She is less short of breath at this point. She is responding to the bronchodilators and steroids. She did have an episode of bradycardia with pauses and the junctional rhythm however this has recovered and the patient did not have any further episodes. Based on that, cardiology had recommended to stop the beta blockers. The patient remains in atrial fibrillation for now. She is known to have mild coronary artery disease and a previous cardiac catheterization. In terms of her COPD exacerbation, she continues to improve although slowly. No dizziness. No syncope. No chest pain. No other significant events over the past 24 hours. On 04/29/2016, the patient is still being treated for acute COPD exacerbation. Still bronchospastic and wheezy. No cardiac arrhythmias have been noted. No chest pain. No fever or chills. She remains on a prednisone as part of the burst taper. She is on Pulmicort Respules and Perforomist overestimates twice daily and DuoNeb nebulized treatments around the clock. Her PT/INR is subtherapeutic. Rest of the electrodes are all within normal limits. Patient was seen on 04/30/2016, continues to have to have significant wheezing and shortness of breath. Chest x-ray showed no evidence of congestive heart failure and no evidence of infiltrate, hence I felt that the findings are mostly findings of acute exacerbation of COPD. I switch the patient back from prednisone to IV Solu-Medrol. And will need to continue present bronchodilators for now. Clearly the patient is not having any findings to suggest congestive heart failure. Labs were reviewed, her BUN is up to 62 creatinine is 0.9. Hence I will recommend cutting down the Lasix to 20 mg daily instead of 40 mg daily. Patient was seen today on 05/01/2016, definitely improved compared to yesterday, less cough and less wheezing less shortness of breath. But she continues to wheeze. Labs were reviewed, BUN is down to 62 creatinine is down to 0.90. Patient was reevaluated today on 05/02/2016, feeling much better, breathing a lot easier, less cough and less wheezing, and she had a pacemaker implantation done today for what seemed to be a picture of intermittent episodes of sinus pauses and profound bradycardia. Today I recommended changing the Solu-Medrol to prednisone orally, and I believe possibly patient could be considered for discharge planning in the next 24 hours. Her renal profile is about the same, BUN is 59 and creatinine is 1.07. Patient was reevaluated today on 05/03/2016, feeling much better, less cough and less wheezing less shortness of breath. Her labs were all reviewed, and renal profile seems to be improving. Hence from my perspective patient could be discharged home today, taper the prednisone over the next 3 weeks, starting at 30 mg daily tapered down to 0 mg over the last 21 days. CBC showed leukocytosis with WBC count of 16.1 hemoglobin is 15.1 electrolytes are normal BUN is 43 creatinine is 0.80 Objective - Vital Signs Vital signs: Vital Signs Temp 97.8 F 05/03/16 08:00 Pulse 64 05/03/16 09:11 Resp 20 05/03/16 08:00 BP 165/70 05/03/16 08:00 Pulse Ox 90 L 05/03/16 08:00 Intake & Output 05/02/16 05/03/16 05/03/16 18:59 06:59 18:59 Intake Total 680 580 240 Output Total 2400 1 Balance -1720 579 240 Weight 98.4 kg Intake: IV 200 Intake, IV Titration 100 Amount ceFAZolin 2 gm In Sodium 100 Chloride 0.9% 100 ml @ 100 mls/hr IVPB Q6H [facility] Rx#:[id number] Oral 480 480 240 Output: Urine 2400 1 Other: Voiding Method Toilet Toilet # Voids 1 1 # Bowel Movements 1 - Exam Physical Exam: Revealed a 70-year-old female in no form of respiratory distress. EENT:[Neck is supple.] [No neck masses.] [No thyromegaly.] [No JVD.] Chest: [Clear bilaterally no crackles or rhonchi or wheezes..] Cardiac Exam: Irregular irregular rhythm, 2/6 systolic murmur throughout the precordium.] Abdomen: [Soft, nontender, no megaly, no rebound, no guarding, normal bowel sounds.] Extremities: [No clubbing, no edema, no cyanosis.] Neurological Exam: [No focal neurologic deficit.] - Labs CBC & Chem 7: 05/03/16 06:29 05/03/16 06:29 Labs: Abnormal Lab Results - Last 24 Hours (Table) 05/02/16 05/02/16 05/02/16 Range/Units 16:37 18:08 21:04 WBC (3.8-10.6) k/uL RBC (3.80-5.40) m/uL Hct (34.0-46.0) % MCH (25.0-35.0) pg MCHC (31.0-37.0) g/dL Neutrophils # (1.3-7.7) k/uL PT (9.0-12.0) sec Potassium 5.4 H (3.5-5.1) mmol/L Carbon Dioxide (22-30) mmol/L BUN (7-17) mg/dL Glucose (74-99) mg/dL POC Glucose (mg/dL) 277 H 275 H (75-99) mg/dL 05/03/16 05/03/16 05/03/16 Range/Units 05:48 06:29 06:29 WBC 16.1 H (3.8-10.6) k/uL RBC 6.08 H (3.80-5.40) m/uL Hct 49.7 H (34.0-46.0) % MCH 24.8 L (25.0-35.0) pg MCHC 30.4 L (31.0-37.0) g/dL Neutrophils # 12.7 H (1.3-7.7) k/uL PT 16.5 H (9.0-12.0) sec Potassium (3.5-5.1) mmol/L Carbon Dioxide (22-30) mmol/L BUN (7-17) mg/dL Glucose (74-99) mg/dL POC Glucose (mg/dL) 154 H (75-99) mg/dL 05/03/16 05/03/16 Range/Units 06:29 12:09 WBC (3.8-10.6) k/uL RBC (3.80-5.40) m/uL Hct (34.0-46.0) % MCH (25.0-35.0) pg MCHC (31.0-37.0) g/dL Neutrophils # (1.3-7.7) k/uL PT (9.0-12.0) sec Potassium (3.5-5.1) mmol/L Carbon Dioxide 33 H (22-30) mmol/L BUN 43 H (7-17) mg/dL Glucose 168 H (74-99) mg/dL POC Glucose (mg/dL) 100 H (75-99) mg/dL Assessment and Plan Plan: 1 acute CHF/diastolic dysfunction, improving 2 asthma exacerbation secondary to upper respiratory tract infection, no evidence of infiltrate on the chest x-ray. 3 paroxysmal atrial fibrillation, with a single episode of junctional rhythm. Patient was taken off the beta blockers. The patient is on warfarin and the PT/ INR is subtherapeutic at this point 4 hypertension with poorly controlled blood pressure at time of admission, currently under better control as the patient is taking a combination of amlodipine, Zestoretic, hydralazine and Lasix. 5 diabetes mellitus 6 hyperlipidemia 7 mild coronary artery disease based on a previous cardiac catheterization at was done 2013 8 status post pacemaker implantation for what seems to be sinus pauses and profound bradycardia. Recommendation: Discharge patient home today, follow up with me for her asthma on outpatient basis. Prednisone-kolb patient could be tapered over the next 21 days until I see her in my office. If cleared by cardiology today, patient will be cleared from our perspective. Time with Patient: Less than 30
--- NOTE | 2016-05-03 14:44 | P.PN ---
Subjective Principal diagnosis: Shortness of breath This is a 70-year-old female who follows regularly with Dr. Mauro in the office. She has a known history of diabetes, hypertension, hyperlipidemia, paroxysmal atrial fibrillation, asthma, presented to the hospital with symptoms of shortness of breath with associated productive cough of green sputum. He is currently being treated for exacerbation of COPD along with chronic bronchitis. Patient did have an element of diastolic congestive heart failure on admission here also and diuresed well on IV Lasix. Currently on PO Lasix. Because of significant pauses and pe blood pressure this morningulmonary. Follow-up appointment will be made with Dr. Mauro in the office first discharge. Blood pressure this morning 186/80, we will increase dose of beta alexis to 50 mg one tablet by mouth twice a day. She may be able to be discharged from our perspective to follow-up in the office with Dr. Mauro post discharge. She has been reinitiated on her Coumadin. Objective - Vital Signs Vital signs: Vital Signs Temp 97.2 F L 05/03/16 12:00 Pulse 64 05/03/16 12:39 Resp 20 05/03/16 12:00 BP 186/78 05/03/16 12:00 Pulse Ox 92 L 05/03/16 12:00 Intake & Output 05/02/16 05/03/16 05/03/16 18:59 06:59 18:59 Intake Total 680 580 820 Output Total 2400 1 Balance -1720 579 820 Weight 98.4 kg Intake: IV 200 Intake, IV Titration 100 340 Amount Sodium Chloride 0.9% 1, 240 000 ml As IV .[facility] Rx#:[id number] ceFAZolin 2 gm In Sodium 100 100 Chloride 0.9% 100 ml @ 100 mls/hr IVPB Q6H [facility] Rx#:[id number] Oral 480 480 480 Output: Urine 2400 1 Other: Voiding Method Toilet Toilet # Voids 1 1 # Bowel Movements 1 - Exam PHYSICAL EXAMINATION: HEENT: [Head is atraumatic, normocephalic. Pupils equal, round. Neck is supple. There is no elevated jugular venous pressure.] HEART EXAMINATION: S1 and S2 normal , site of pacemaker implantation dressing is dry and intact. CHEST EXAMINATION: Lungs reveal scattered coarse wheezing throughout. ABDOMEN: [ Soft, nontender. Bowel sounds are heard. No organomegaly noted]. EXTREMITIES:[ 2+ peripheral pulses with trace evidence of peripheral edema and no calf tenderness noted]. NEUROLOGIC [patient is awake, alert and oriented -3.] . - Labs CBC & Chem 7: 05/03/16 06:29 05/03/16 06:29 Labs: Abnormal Lab Results - Last 24 Hours (Table) 05/02/16 05/02/16 05/02/16 Range/Units 16:37 18:08 21:04 WBC (3.8-10.6) k/uL RBC (3.80-5.40) m/uL Hct (34.0-46.0) % MCH (25.0-35.0) pg MCHC (31.0-37.0) g/dL Neutrophils # (1.3-7.7) k/uL PT (9.0-12.0) sec Potassium 5.4 H (3.5-5.1) mmol/L Carbon Dioxide (22-30) mmol/L BUN (7-17) mg/dL Glucose (74-99) mg/dL POC Glucose (mg/dL) 277 H 275 H (75-99) mg/dL 05/03/16 05/03/16 05/03/16 Range/Units 05:48 06:29 06:29 WBC 16.1 H (3.8-10.6) k/uL RBC 6.08 H (3.80-5.40) m/uL Hct 49.7 H (34.0-46.0) % MCH 24.8 L (25.0-35.0) pg MCHC 30.4 L (31.0-37.0) g/dL Neutrophils # 12.7 H (1.3-7.7) k/uL PT 16.5 H (9.0-12.0) sec Potassium (3.5-5.1) mmol/L Carbon Dioxide (22-30) mmol/L BUN (7-17) mg/dL Glucose (74-99) mg/dL POC Glucose (mg/dL) 154 H (75-99) mg/dL 05/03/16 05/03/16 Range/Units 06:29 12:09 WBC (3.8-10.6) k/uL RBC (3.80-5.40) m/uL Hct (34.0-46.0) % MCH (25.0-35.0) pg MCHC (31.0-37.0) g/dL Neutrophils # (1.3-7.7) k/uL PT (9.0-12.0) sec Potassium (3.5-5.1) mmol/L Carbon Dioxide 33 H (22-30) mmol/L BUN 43 H (7-17) mg/dL Glucose 168 H (74-99) mg/dL POC Glucose (mg/dL) 100 H (75-99) mg/dL Assessment and Plan Plan: Assessment and plan #1 symptoms of chest congestion with associated productive cough of green sputum , suggestive of possible tracheobronchitis, with exacerbation of patient currently on IV antibiotics #2 exacerbation of congestive heart failure, likely diastolic in nature, most recent echocardiogram with Doppler study was performed in August 2014 which revealed an ejection fraction of 50-55%. #3 paroxysmal atrial fibrillation, on Coumadin, #4 accelerated hypertension #5 diabetes #6 hyperlipidemia #7 history of asthma #8 no significant obstructive coronary artery disease by cardiac catheterization performed in 2013 #9 hypomagnesemia #10 sinus bradycardia, status post pacemaker implantation. Plan From cardiology's perspective, we will start increase the Lopressor to 50 mg by mouth twice a day. We will also reinitiate the patient's Coumadin. She may be able to be discharged home from cardiology's perspective, a follow-up appointment will be made with Dr. Mauro post discharge DNP note has been reviewed, I agree with a documented findings and plan of care. Patient was seen and examined.
[2016-05-03 17:10] LABS: Glucose,Whole Blood 266 mg/dL (75-99)
[2016-05-03] MEDS: INSULIN DETEMIR 100 UNIT/ML 10 ML VIAL SQ SCH (17:15)
[2016-05-03] MEDS ORDERED: WARFARIN 7.5 MG TAB PO SCH (18:00)
[2016-05-03 19:59] LABS: Glucose,Whole Blood 226 mg/dL (75-99)
[2016-05-03] MEDS: SODIUM CHLORIDE 0.9% 1,000 ML IV SCH (20:51)
[2016-05-03] MEDS: LISINOPRIL-HCTZ 10-12.5 MG 1 EACH TAB PO SCH (20:54)
[2016-05-03] MEDS: METOPROLOL TARTRATE 50 MG TAB PO SCH (20:54)
--- NOTE | 2016-05-03 22:47 | PN ---
DATE OF SERVICE: 05/03/2016 CHIEF COMPLAINT: High blood pressure. INTERVAL HISTORY: This patient presented with asthma exacerbation and element of CHF also had junctional rhythm and sinus pauses and now has ( ) for a pacemaker. Patient's blood pressure earlier today was over 180 systolic. Patient breathing is more comfortable. Review of systems done for constitutional, cardiovascular, GI, pulmonary; relevant findings as above. Current medications are reviewed. On examination, temperature 97.3, pulse 82, respirations 20, blood pressure 187/78, pulse ox 98% on room air. GENERAL APPEARANCE: Lying in bed, comfortable. EYES: Pupils equal, conjunctivae normal. NECK: JVD not raised. Mass not palpable. RESPIRATORY: Effort normal. LUNGS: Decreased breath sounds. CARDIOVASCULAR: First and second seconds normal. No edema. ABDOMEN: Soft, nontender. Liver and spleen not palpable. PSYCHIATRY: Alert and oriented times three. Mood and affect normal. INVESTIGATIONS: White count 16.1, potassium 4.6, BUN 43, creatinine 0.80. ASSESSMENT: 1. Acute on chronic congestive heart failure exacerbation from diastolic dysfunction, ejection fraction 55%, underlying hypertensive disease, now compensated. 2. Junctional rhythm and sinus pauses from the patient being on a beta alexis now that has been discontinued and underlying sick sinus disease. 3. Moderate persistent asthma with acute exacerbation with improvement. 4. Type 2 diabetes mellitus, on oral hypoglycemics. 5. Essential hypertension. 6. Primary osteoarthritis of multiple joints, bilateral. 7. Depression, not otherwise specified. 8. History of atrial flutter fibrillation, chronically on Coumadin. 9. Hyperkalemia. 10. Essential hypertension, uncontrolled. PLAN: Patient's Lopressor will be increased to 50 mg twice a day. We will try the patient on Zestril 12/13.5 and patient also had been on Lasix 20 to keep the potassium down. Repeat blood pressure.
[2016-05-04 05:50] LABS: Glucose,Whole Blood 89 mg/dL (75-99)
[2016-05-04 06:24] LABS: Anion Gap 5 mmol/L; Blood Urea Nitrogen 38 mg/dL (7-17); Calcium 9.3 mg/dL (8.4-10.2); Carbon Dioxide 33 mmol/L (22-30); Chloride 103 mmol/L (98-107); Glucose 99 mg/dL (74-99); Non-African American GFR(MDRD) >60 (>60 ml/min/1.73 sqM); Potassium 4.1 mmol/L (3.5-5.1); Sodium 141 mmol/L (137-145)
[2016-05-04] MEDS: INSULIN LISPRO (humaLOG) 300 UNIT/3 ML VIAL SQ SCH ×4 (06:47→13:20)
[2016-05-04] MEDS: IPRATROPIUM-ALBUTEROL 3 ML NEB INHALATION SCH ×3 (08:14→15:56)
[2016-05-04] MEDS: BUDESONIDE 1 MG/2 ML NEBU INHALATION SCH (08:14)
[2016-05-04 08:54] VITALS: RESP 18
[2016-05-04] MEDS: SERTRALINE 100 MG TAB PO SCH (10:26)
[2016-05-04] MEDS: hydrALAZINE HCL 50 MG TAB PO SCH (10:27)
[2016-05-04] MEDS: METOPROLOL TARTRATE 50 MG TAB PO SCH (10:27)
[2016-05-04] MEDS: predniSONE 10 MG TAB PO SCH (10:27)
[2016-05-04] MEDS: LISINOPRIL-HCTZ 10-12.5 MG 1 EACH TAB PO SCH (10:27)
[2016-05-04] MEDS: FERROUS SULFATE 325 MG TAB PO SCH (10:28)
[2016-05-04] MEDS: FAMOTIDINE 20 MG TAB PO SCH (10:28)
[2016-05-04] MEDS: FUROSEMIDE 20 MG TAB PO SCH (10:28)
[2016-05-04] MEDS: amLODIPine 10 MG TAB PO SCH (10:28)
[2016-05-04] MEDS: ASPIRIN 81 MG CHEW PO SCH (10:28)
[2016-05-04] MEDS: GABAPENTIN 300 MG CAP PO SCH (10:29)
[2016-05-04] MEDS: metFORMIN 500 MG TAB PO SCH (10:29)
[2016-05-04] MEDS: MAGNESIUM OXIDE 400 MG TAB PO SCH (10:29)
[2016-05-04] MEDS: guaiFENesin 600 MG TABLET.ER PO SCH (10:29)
[2016-05-04] MEDS: MULTIVITAMINS, THERA 1 EACH TAB PO SCH (10:29)
[2016-05-04] MEDS: LORATADINE 10 MG TAB PO SCH (10:29)
[2016-05-04] MEDS: TIMOLOL 0.5% OPHTH DROPS 5 ML BTL LEFT EYE SCH (10:30)
[2016-05-04] MEDS: BRIMONIDINE TARTRATE 0.2% DROPS 5 ML BTL LEFT EYE SCH (10:30)
[2016-05-04] MEDS: SODIUM CHLORIDE 5% OPHTH OINT 3.5 GM TUBE LEFT EYE SCH (10:38)
--- NOTE | 2016-05-04 10:53 | P.PN ---
Subjective Principal diagnosis: Shortness of breath This is a 70-year-old female who follows regularly with Dr. Mauro in the office. She has a known history of diabetes, hypertension, hyperlipidemia, paroxysmal atrial fibrillation, asthma, presented to the hospital with symptoms of shortness of breath with associated productive cough of green sputum. He is currently being treated for exacerbation of COPD along with chronic bronchitis. Patient did have an element of diastolic congestive heart failure on admission here also and diuresed well on IV Lasix. Currently on PO Lasix. Because of significant pauses and pe blood pressure this morningulmonary. Follow-up appointment will be made with Dr. Mauro in the office first discharge. Blood pressure this morning 142/70. She may be able to be discharged from our perspective to follow-up in the office with Dr. Mauro post discharge. She has been reinitiated on her Coumadin. Objective - Vital Signs Vital signs: Vital Signs Temp 97.1 F L 05/04/16 08:00 Pulse 68 05/04/16 08:34 Resp 18 05/04/16 08:00 BP 142/71 05/04/16 08:00 Pulse Ox 97 05/04/16 08:00 Intake & Output 05/03/16 05/04/16 05/04/16 18:59 06:59 18:59 Intake Total 940 200 Balance 940 200 Weight 97.8 kg Intake: Intake, IV Titration 340 200 Amount Sodium Chloride 0.9% 1, 240 000 ml As IV [facility] Rx#:[id number] ceFAZolin 2 gm In Sodium 100 200 Chloride 0.9% 100 ml @ 100 mls/hr IVPB Q6H [facility] Rx#:[id number] Oral 600 Other: # Voids 1 - Exam PHYSICAL EXAMINATION: HEENT: [Head is atraumatic, normocephalic. Pupils equal, round. Neck is supple. There is no elevated jugular venous pressure.] HEART EXAMINATION: S1 and S2 normal , site of pacemaker implantation dressing is dry and intact. CHEST EXAMINATION: Lungs reveal scattered coarse wheezing throughout. ABDOMEN: [ Soft, nontender. Bowel sounds are heard. No organomegaly noted]. EXTREMITIES:[ 2+ peripheral pulses with trace evidence of peripheral edema and no calf tenderness noted]. NEUROLOGIC [patient is awake, alert and oriented -3.] . - Labs CBC & Chem 7: 05/03/16 06:29 05/04/16 05:51 Labs: Abnormal Lab Results - Last 24 Hours (Table) 05/03/16 05/03/16 05/03/16 Range/Units 12:09 17:07 19:58 Carbon Dioxide (22-30) mmol/L BUN (7-17) mg/dL POC Glucose (mg/dL) 100 H 266 H 226 H (75-99) mg/dL 05/04/16 Range/Units 05:51 Carbon Dioxide 33 H (22-30) mmol/L BUN 38 H (7-17) mg/dL POC Glucose (mg/dL) (75-99) mg/dL Assessment and Plan Plan: Assessment and plan #1 symptoms of chest congestion with associated productive cough of green sputum , suggestive of possible tracheobronchitis, with exacerbation of COPD. #2 exacerbation of congestive heart failure, diastolic in nature, acute on chronic most recent echocardiogram with Doppler study was performed in August 2014 which revealed an ejection fraction of 50-55%. #3 paroxysmal atrial fibrillation, on Coumadin, #4 accelerated hypertension #5 diabetes #6 hyperlipidemia #7 history of asthma #8 no significant obstructive coronary artery disease by cardiac catheterization performed in 2013 #9 hypomagnesemia #10 sinus bradycardia, status post pacemaker implantation. Plan From cardiology's perspective, the patient may be able to be discharged home today. We will make a follow-up appointment with Dr. Mauro in the office post discharge. DNP note has been reviewed, I agree with a documented findings and plan of care. Patient was seen and examined.
--- NOTE | 2016-05-04 11:06 | P.PN ---
Subjective 70-year-old female patient, presented to the hospital because of worsening shortness of breath, some orthopnea without paroxysmal nocturnal dyspnea. The patient started by having symptoms of upper respiratory checked infection for which she was seen in our office and she received some antibiotic treatment. Back then the patient was complaining of some increased cough with production of greenish sputum and despite antibiotic treatment the patient became more short of breath. No worsening of the lower extremity edema. No fever or chills. Chest x-ray on the time of admission showed CHF exacerbation/ cardiomegaly with increased pulmonary vascular markings and congestion. EKG remained in normal sinus rhythm. The patient had no troponin elevation. Noted the blood pressure the time of admission was quite elevated with initial blood pressure of 204/64 and the patient's pulse ox was around 82% on room air. Clinically the patient is feeling better as the patient's blood pressure improved and is under better control. ProBNP level at time of admission was above 11,000 and the troponins are 0.013, 0.031 and 0.015 respectively 3. This patient is known to have hypertension, diabetes mellitus, hyperlipidemia, asthma and paroxysmal atrial fibrillation. No documented coronary artery disease. In terms of her asthma, the patient is demented on a combination of Advair 115/21 HFA 2 puffs twice a day as baseline and Ventolin rescue inhaler on an as-needed basis. No recurrent exacerbation of her asthma. No previous bouts of ventilator dependent respiratory failure due to asthma exacerbation. The echocardiogram from this current admission shows an ejection fraction of 50- 55%, moderately dilated LA, mild aortic valve sclerosis, moderate degree of pulmonary hypertension with a PA pressures of 46.7 mmHg. The patient is seen again today 05/04/2016 in follow-up. She is awake and alert in no acute distress. She is status post permanent pacemaker implantation. She denies any worsening shortness of breath, cough or congestion. She is maintaining good O2 saturations in the upper 90s on room air. Objective - Vital Signs Vital signs: Vital Signs Temp 97.1 F L 05/04/16 08:00 Pulse 68 05/04/16 08:34 Resp 18 05/04/16 08:00 BP 142/71 05/04/16 08:00 Pulse Ox 97 05/04/16 08:00 Intake & Output 03/02/17 03/03/17 03/03/17 18:59 06:59 18:59 Intake Total 940 200 Balance 940 200 Weight 97.8 kg Intake: Intake, IV Titration 340 200 Amount Sodium Chloride 0.9% 1, 240 000 ml [id number] ceFAZolin 2 gm In Sodium 100 200 Chloride 0.9% 100 ml @ 100 mls/hr IVPB Q6H [facility] Rx#:[id number] Oral 600 Other: # Voids 1 - Exam Head exam was generally normal. There was no scleral icterus or corneal arcus. Mucous membranes were moist.Normal neck lungs sounds are diminished bilaterally otherwise clear. Dressing to the left subclavian site is clean dry. Cardiac exam revealed the PMI to be normally situated and sized. The rhythm was regular and no extrasystoles were noted during several minutes of auscultation. The first and second heart sounds were normal and physiologic splitting of the second heart sound was noted. There were no murmurs, rubs, clicks, or gallops. Abdominal exam revealed normal bowel sounds. The abdomen was soft, non-tender, and without masses, organomegaly, or appreciable enlargement of the abdominal aorta. Examination of the extremities revealed easily palpable radial, femoral and pedal pulses. There was no cyanosis, clubbing or edema. - Labs CBC & Chem 7: 05/03/16 06:29 05/04/16 05:51 Labs: Abnormal Lab Results - Last 24 Hours (Table) 05/03/16 05/03/16 05/03/16 Range/Units 12:09 17:07 19:58 Carbon Dioxide (22-30) mmol/L BUN (7-17) mg/dL POC Glucose (mg/dL) 100 H 266 H 226 H (75-99) mg/dL 05/04/16 Range/Units 05:51 Carbon Dioxide 33 H (22-30) mmol/L BUN 38 H (7-17) mg/dL POC Glucose (mg/dL) (75-99) mg/dL Assessment and Plan Plan: Impression: 1 acute exacerbation of chronic diastolic congestive heart failure, improving. 2 acute exacerbation of mild persistent asthma secondary to acute tracheobronchitis. 3 paroxysmal atrial fibrillation with episodes of bradycardia. Status post permanent pacemaker implantation. 4 hypertension with poorly controlled blood pressure at time of admission. 5 diabetes mellitus 6 hyperlipidemia 7 mild coronary artery disease based on a previous cardiac catheterization at was done 2014 8 troponin leak Plan: The patient was seen and evaluated by Dr. Willingham. She is cleared for discharge from the pulmonary standpoint. She'll continue with her usual pulmonary medications. She'll follow-up in our office in 1-2 weeks' time. She is however encouraged to call sooner with any recurrence of symptoms or other questions or concerns.
[2016-05-04 12:30] VITALS: BP 117/70; TEMP 97.2
[2016-05-04 12:31] LABS: Glucose,Whole Blood 91 mg/dL (75-99)
[2016-05-04] MEDS: SODIUM CHLORIDE 0.9% 1,000 ML IV SCH (12:53)
[2016-05-04 16:12] VITALS: PULSE 68
[2016-05-04 17:16] LABS: Glucose,Whole Blood 145 mg/dL (75-99)
[2016-05-04] MEDS ORDERED: WARFARIN 5 MG TAB PO SCH (18:00)
--- NOTE | 2016-05-05 07:20 | DS ---
DATE OF ADMISSION: 04/22/2016 DATE OF DISCHARGE: 05/04/2016 FINAL DIAGNOSES: 1. Acute on chronic congestive heart failure exacerbation from diastolic dysfunction, ejection fraction 55% from underlying hypertensive heart disease, now compensated. 2. Junctional rhythm and sinus pauses from patient being on beta blockers and also underlying sick sinus disease leading to pacemaker placement. 3. Moderate persistent asthma with acute exacerbation, present on admission. 4. Type 2 diabetes mellitus, on oral hyperglycemics. 5. Essential hypertension. 6. Primary osteoarthritis of multiple joints, bilateral. 7. Depression, not otherwise specified. 8. History of atrial flutter fibrillation, chronically on Coumadin. 9. Hyperkalemia. 10. Essential hypertension, uncontrolled. CONSULTATION: Dr. Juarez from cardiology. Dr. Willingham from pulmonary. HOSPITAL COURSE: This patient presented with CHF exacerbation and asthma exacerbation. This patient started having junctional rhythm and sinus pauses. The patient's beta alexis was discontinued. Patient has a history of atrial flutter fibrillation in the past. Eventually the patient ( ) on a pacemaker, doing much better now. On exam, lungs improved air entry. CARDIOVASCULAR: First and second sounds normal. DISCHARGE MEDICATIONS: 1. Aspirin 81 mg a day. 2. Iron 325 mg p.o. daily. 3. Levemir( ) units subcu a.c. supper. 4. Centrum complete Multivitamin 1 tablet p.o. daily. 5. Zantac 150 mg p.o. daily. 6. Zoloft 1 mg p.o. once a day. 7. ( ) one application left eye daily. 8. Coumadin 7.5 mg on Saturday, Saturday, and Saturday. 9. Ventolin HFA 2 puffs q.i.d. p.r.n. 10. Coumadin 5 mg Saturday, Saturday and Saturday. 11. Tylenol 500 mg p.o. q.6 p.r.n. 12. Combigan 0.2, 0.5% one drop to left eye daily. 13. Advair HFA 2 puffs b.i.d. 14. Neurontin 300 mg p.o. b.i.d. 15. Claritin 10 mg p.o. daily. 16. Magnesium oxide 250 mg p.o. daily. 17. Aspirin 81 mg p.o. daily. 18. Lasix 20 mg p.o. daily. 19. Humalog 10 units subcu a.c. t.i.d. 20. DuoNeb q.i.d. 21. Zestoretic 12/13.5 1 tablets p.o. b.i.d. 22. Lopressor 50 mg p.o. b.i.d. 23. Norvasc 10 mg p.o. daily. 24. Hydralazine 100 mg p.o. t.i.d. 25. Metformin 1000 mg p.o. b.i.d. 26. Prednisone taper. Follow up with Dr. Willingham on 05/10/2016, follow-up with Dr. Hawk on 05/11/2016. LABS: BMP CBC, INR on 05/07/2016.
== END 2016-05-04 18:13 | disposition home or self-care (01) | DRG 243 ==
LOC: EC 17:47 → 6SEL 18:35
PROVIDERS: ADMIT Hospitalist; ATTEND Hospitalist
PROC: 02H63JZ Insertion of Pacemaker Lead into Right Atrium, Percutaneous Approach (ICD-10-PCS; principal; 2016-05-02 07:15)
PROC: 0JH606Z Insertion of Pacemaker, Dual Chamber into Chest Subcutaneous Tissue and Fascia, Open Approach (ICD-10-PCS; principal; 2016-05-02 07:15)
PROC: 02HL3JZ Insertion of Pacemaker Lead into Left Ventricle, Percutaneous Approach (ICD-10-PCS; principal; 2016-05-02 07:15)
DX: I11.0 Hypertensive heart disease with heart failure (principal); I48.1 Persistent atrial fibrillation; E11.42 Type 2 diabetes mellitus with diabetic polyneuropathy; J44.0 Chronic obstructive pulmonary disease with (acute) lower respiratory infection; F03.90 Unspecified dementia, unspecified severity, without behavioral disturbance, psychotic disturbance, mood disturbance, and anxiety; I27.2 Other secondary pulmonary hypertension; J45.41 Moderate persistent asthma with (acute) exacerbation; J44.1 Chronic obstructive pulmonary disease with (acute) exacerbation; I49.5 Sick sinus syndrome; E87.5 Hyperkalemia; I50.33 Acute on chronic diastolic (congestive) heart failure; E78.5 Hyperlipidemia, unspecified; F32.9 Major depressive disorder, single episode, unspecified; I25.10 Atherosclerotic heart disease of native coronary artery without angina pectoris; I35.8 Other nonrheumatic aortic valve disorders; I48.0 Paroxysmal atrial fibrillation; J20.9 Acute bronchitis, unspecified; M19.91 Primary osteoarthritis, unspecified site; R09.02 Hypoxemia; Z79.01 Long term (current) use of anticoagulants; Z79.4 Long term (current) use of insulin; Z79.82 Long term (current) use of aspirin; Z82.49 Family history of ischemic heart disease and other diseases of the circulatory system; Z85.42 Personal history of malignant neoplasm of other parts of uterus; Z85.828 Personal history of other malignant neoplasm of skin; Z87.891 Personal history of nicotine dependence; Z79.899 Other long term (current) drug therapy; Z79.84 Long term (current) use of oral hypoglycemic drugs
CPT/HCPCS: 33208; 36415; 71010; 71020; 80048; 80053; 82550; 82553; 83036; 83735; 83880; 84132; 84443; 84484; 85025; 85027; 85610; 85730; 93005; 93306; 94640; 94644; 94660; 94760; 96365; 96366; 96375; 99291

== ENCOUNTER → 2016-05-07 | Outpatient (CLI) | payer MEDICARE ==
[2016-05-07 12:10] LABS: INR 2.6 (<1.1); Prothrombin Time 24.8 sec (9.0-12.0)
[2016-05-07 12:24] LABS: Calcium 9.8 mg/dL (8.4-10.2); Potassium 5.3 mmol/L (3.5-5.1)
== END | disposition home or self-care (01) ==
LOC: LABWHC1 11:16
PROVIDERS: ATTEND Hospitalist
DX: E87.8 Other disorders of electrolyte and fluid balance, not elsewhere classified (principal); I48.91 Unspecified atrial fibrillation
CPT/HCPCS: 36415; 80048; 85610

== ENCOUNTER 2017-03-21 11:28 | Emergency (ER) | payer MEDICARE ==
[2017-03-21 11:32] LABS: Glucose,Whole Blood 183 mg/dL (75-99)
[2017-03-21] MEDS ORDERED: SODIUM CHLORIDE 0.9% 1,000 ML IV STA (11:37)
[2017-03-21] MEDS ORDERED: RX INFO: IV CONTRAST WAS GIVEN 1 EACH MISC MISCELLANE PRN (11:37)
--- NOTE | 2017-03-21 11:37 | ED ---
General Adult HPI - General Chief complaint: Neuro Symptoms/Deficit Stated complaint: Weakness Time Seen by Provider: 03/21/17 11:35 Source: patient, EMS, RN notes reviewed, old records reviewed Mode of arrival: EMS Limitations: altered mental status, physical limitation - History of Present Illness Initial comments: This is a 69-year-old female brought in for altered mental state. Found down. Patient is on blood thinners, per family members 2 days ago patient was those have some weakness right-sided weakness, will limit the patient's house again today she was found to be condition that she is in now, history obtained from EMS who obtained from family, no family currently at bedside, patient is unable to give history, patient was found to have fallen multiple times with bruising over multiple different areas - Related Data Home Medications Medication Instructions Recorded Confirmed Insulin Detemir [Levemir Flexpen] 56 units SQ AC-SUPPER 01/04/14 03/21/17 Ranitidine HCl 150 mg PO DAILY 01/04/14 03/21/17 Sertraline [Zoloft] 150 mg PO DAILY 01/04/14 03/21/17 Warfarin [Coumadin] 7.5 mg PO SUTUWETHSA 01/04/14 03/21/17 Warfarin [Coumadin] 5 mg PO MOWEFR 08/30/14 03/21/17 Acetaminophen Tab [Tylenol] 500 mg PO Q6HR PRN 04/22/16 03/21/17 Gabapentin [Neurontin] 300 mg PO BID 04/22/16 03/21/17 Cyclobenzaprine [Flexeril] 10 mg PO TID PRN 03/21/17 03/21/17 Dicyclomine [Bentyl] 10 mg PO TID-W/MEALS 03/21/17 03/21/17 Furosemide [Lasix] 40 mg PO DAILY 03/21/17 03/21/17 Lisinopril-Hctz 10-12.5 mg 1 tab PO BID 03/21/17 03/21/17 [Zestoretic 10-12.5] Methocarbamol [Robaxin] 500 mg PO TID PRN 03/21/17 03/21/17 Omeprazole [PriLOSEC] 20 mg PO AC-BID 03/21/17 03/21/17 hydrALAZINE HCL [Apresoline] 100 mg PO TID 03/21/17 03/21/17 tiZANidine [Zanaflex] 2 mg PO TID 03/21/17 03/21/17 Previous Rx's Medication Instructions Recorded Ipratropium-Albuterol Nebulize 3 ml INHALATION RT-QID #120 05/04/16 [Duoneb 0.5 mg-3 mg/3 ml Soln] ampul.neb Metoprolol Tartrate [Lopressor] 50 mg PO BID #60 tab 05/04/16 amLODIPine [Norvasc] 10 mg PO DAILY #30 tab 05/04/16 metFORMIN HCL 1,000 mg PO BID #0 05/04/16 Allergies Allergy/AdvReac Type Severity Reaction Status Date / Time Latex, Natural Rubber Allergy Itching Verified 03/21/17 11:52 sulfamethoxazole Allergy Rash/Hives Verified 03/21/17 11:52 [From Bactrim] trimethoprim [From Bactrim] Allergy Rash/Hives Verified 03/21/17 11:52 Review of Systems ROS Statement: Those systems with pertinent positive or pertinent negative responses have been documented in the HPI. ROS Other: All systems not noted in ROS Statement are negative. Past Medical History Past Medical History: Atrial Fibrillation, Asthma, Diabetes Mellitus, Hypertension, Osteoarthritis (OA) Additional Past Medical History / Comment(s): Hypertension, diabetes mellitus, hyperlipidemia, paroxysmal defibrillation maintained on long-term articulation with warfarin, bronchial asthma, previous cardiac catheterization from January 2014 showing a mild coronary artery disease involving the LAD, uterine cancer 1994, broken left arm in 2006, skin cancer/resected History of Any Multi-Drug Resistant Organisms: MRSA Date of last positivie culture/infection: 06/09/11 MDRO Source:: right thumb Past Surgical History: Cholecystectomy, Hysterectomy Additional Past Surgical History / Comment(s): eye sx Past Anesthesia/Blood Transfusion Reactions: No Reported Reaction Past Psychological History: Depression Smoking Status: Former smoker Past Alcohol Use History: None Reported Past Drug Use History: None Reported - Past Family History Mother Family Medical History: Cancer, COPD, Hypertension Father Family Medical History: Cancer, Hypertension General Exam - General Exam Comments Initial Comments: NIH of 22 Limitations: altered mental status, physical limitation General appearance: alert, lethargic, in distress Head exam: Present: normocephalic, normal inspection. Absent: atraumatic ( Bilateral Coumadin size, multiple areas of bruising over face) Eye exam: Present: normal appearance, PERRL, EOMI. Absent: scleral icterus, conjunctival injection, periorbital swelling ENT exam: Present: normal exam, mucous membranes moist Neck exam: Present: normal inspection. Absent: tenderness, meningismus, lymphadenopathy Respiratory exam: Present: normal lung sounds bilaterally. Absent: respiratory distress, wheezes, rales, rhonchi, stridor Cardiovascular Exam: Present: regular rate, normal rhythm, normal heart sounds. Absent: systolic murmur, diastolic murmur, rubs, gallop, clicks GI/Abdominal exam: Present: soft, normal bowel sounds. Absent: distended, tenderness, guarding, rebound, rigid Extremities exam: Present: normal inspection, full ROM, normal capillary refill. Absent: tenderness, pedal edema, joint swelling, calf tenderness Back exam: Present: normal inspection Neurological exam: Present: alert, oriented X3, CN II-XII intact Psychiatric exam: Present: normal affect, normal mood Skin exam: Present: warm, dry, intact, normal color. Absent: rash Course Vital Signs 03/21/17 03/21/17 03/21/17 11:29 11:35 11:45 Temperature 98.1 F 98.4 F Pulse Rate 63 64 62 Respiratory 18 15 18 Rate Blood Pressure 223/87 199/72 209/72 O2 Sat by Pulse 92 L 98 98 Oximetry 03/21/17 03/21/17 11:58 13:16 Temperature 98.1 F 97.0 F L Pulse Rate 69 60 Respiratory 15 16 Rate Blood Pressure 205/69 192/95 O2 Sat by Pulse 98 99 Oximetry - Reevaluation(s) Reevaluation #1: 03/21/17 13:22 Computed tomography scan is delayed secondary to patient's NIH of 22 and need for CTA although symptoms are 2 days old, patient not TPA candidate secondary to delay of symptoms, transfer delayed secondary to CT delay Reevaluation #2: 03/21/17 13:23 Patient does have traumatic fall but also has brain hemorrhage which seems indicative of underlying mass Reevaluation #3: 03/21/17 13:23 She is significantly elevated INR that will be reversed Reevaluation #4: 03/21/17 13:23 Spoke with Faith [facility] regarding patient, they are acceptable of transfer Reevaluation #5: 03/21/17 13:24 Patient's family is now currently at bedside, they're made aware of patient significant disease and prognosis EKG Findings - EKG Comments: EKG Findings:: EKG shows paced rhythm rate of 60, pO2 30, QRS 84, QTC 478 Medical Decision Making - Medical Decision Making 71 female the ER for neurological evaluation, patient does appear to have traumatic fall, does have elevated INR, also has brain disease significant for likely underlying mass with bleeding. Patient be transferred to, call for neurosurgical consult. Patient has INR reversed here in emergency room. Patient's prognosis is poor - Lab Data Result diagrams: 03/21/17 11:33 03/21/17 11:33 Lab Results 03/21/17 03/21/17 03/21/17 Range/Units 11:30 11:33 11:33 WBC 15.4 H (3.8-10.6) k/uL RBC 3.52 L (3.80-5.40) m/uL Hgb 9.6 L (11.4-16.0) gm/dL Hct 30.5 L (34.0-46.0) % MCV 86.6 (80.0-100.0) fL MCH 27.3 (25.0-35.0) pg MCHC 31.5 (31.0-37.0) g/dL RDW 14.4 (11.5-15.5) % Plt Count 312 (150-450) k/uL Neutrophils % 86 % Lymphocytes % 9 % Monocytes % 4 % Eosinophils % 0 % Basophils % 1 % Neutrophils # 13.3 H (1.3-7.7) k/uL Lymphocytes # 1.4 (1.0-4.8) k/uL Monocytes # 0.6 (0-1.0) k/uL Eosinophils # 0.1 (0-0.7) k/uL Basophils # 0.1 (0-0.2) k/uL PT (9.0-12.0) sec INR (<1.2) APTT (22.0-30.0) sec Sodium (137-145) mmol/L Potassium (3.5-5.1) mmol/L Chloride (98-107) mmol/L Carbon Dioxide (22-30) mmol/L Anion Gap mmol/L BUN (7-17) mg/dL Creatinine (0.52-1.04) mg/dL Est GFR (MDRD) Af Amer (>60 ml/min/1.73 sqM) Est GFR (MDRD) Non-Af (>60 ml/min/1.73 sqM) Glucose (74-99) mg/dL POC Glucose (mg/dL) 183 H (75-99) mg/dL POC Glu Beet Flumer ID Kodi, Jennifer Plasma Lactic Acid Hema (0.7-2.0) mmol/L Calcium (8.4-10.2) mg/dL Phosphorus (2.5-4.5) mg/dL Magnesium (1.6-2.3) mg/dL Total Bilirubin (0.2-1.3) mg/dL AST (14-36) U/L ALT (9-52) U/L Alkaline Phosphatase (38-126) U/L Total Creatine Kinase 285 H (30-135) U/L CK-MB (CK-2) 0.9 (0.0-2.4) ng/mL CK-MB (CK-2) Rel Index 0.3 Troponin I 0.052 H* (0.000-0.034) ng/mL Total Protein (6.3-8.2) g/dL Albumin (3.5-5.0) g/dL 03/21/17 03/21/17 03/21/17 Range/Units 11:33 11:33 11:33 WBC (3.8-10.6) k/uL RBC (3.80-5.40) m/uL Hgb (11.4-16.0) gm/dL Hct (34.0-46.0) % MCV (80.0-100.0) fL MCH (25.0-35.0) pg MCHC (31.0-37.0) g/dL RDW (11.5-15.5) % Plt Count (150-450) k/uL Neutrophils % % Lymphocytes % % Monocytes % % Eosinophils % % Basophils % % Neutrophils # (1.3-7.7) k/uL Lymphocytes # (1.0-4.8) k/uL Monocytes # (0-1.0) k/uL Eosinophils # (0-0.7) k/uL Basophils # (0-0.2) k/uL PT 61.1 H (9.0-12.0) sec INR 6.7 H* (<1.2) APTT 44.2 H (22.0-30.0) sec Sodium 142 (137-145) mmol/L Potassium 4.9 (3.5-5.1) mmol/L Chloride 108 H (98-107) mmol/L Carbon Dioxide 23 (22-30) mmol/L Anion Gap 11 mmol/L BUN 43 H (7-17) mg/dL Creatinine 1.62 H (0.52-1.04) mg/dL Est GFR (MDRD) Af Amer 38 (>60 ml/min/1.73 sqM) Est GFR (MDRD) Non-Af 31 (>60 ml/min/1.73 sqM) Glucose 182 H (74-99) mg/dL POC Glucose (mg/dL) (75-99) mg/dL POC Glu Beet Flumer ID Plasma Lactic Acid Hema 1.2 (0.7-2.0) mmol/L Calcium 9.5 (8.4-10.2) mg/dL Phosphorus 2.8 (2.5-4.5) mg/dL Magnesium 1.6 (1.6-2.3) mg/dL Total Bilirubin 0.5 (0.2-1.3) mg/dL AST 35 (14-36) U/L ALT 29 (9-52) U/L Alkaline Phosphatase 80 (38-126) U/L Total Creatine Kinase (30-135) U/L CK-MB (CK-2) (0.0-2.4) ng/mL CK-MB (CK-2) Rel Index Troponin I (0.000-0.034) ng/mL Total Protein 6.1 L (6.3-8.2) g/dL Albumin 3.7 (3.5-5.0) g/dL - Radiology Data Radiology results: report reviewed (G brain C-spine and facial bones is indicative for intraparenchymal hemorrhage possibly underlying mass), image reviewed Critical Care Time Critical Care Time: Yes Total Critical Care Time: 31 Disposition Clinical Impression: Intraparenchymal hemorrhage of brain, Fall, Coagulopathy Disposition: OTHER INSTITUTION NOT DEFINED Condition: Critical Referrals: Lisa Willingham MD [Primary Care Provider] - 1-2 days - Out of Hospital Transfer - Req. Specs Out of Hospital Transfer - Requested Specifics: Other Emergency Center ([facility])
[2017-03-21] MEDS ORDERED: MORPHINE SULFATE 2 MG/ML SYRINGE IVP ONE (11:50)
[2017-03-21] MEDS ORDERED: LABETALOL 5 MG/ML VIAL MDV IVP STA (11:50)
[2017-03-21 11:59] LABS: Basophils # (A) 0.1 k/uL (0-0.2); Basophils % (A) 1 %; Eosinophils # (A) 0.1 k/uL (0-0.7); Eosinophils % (A) 0 %; HCT 30.5 % (34.0-46.0); HGB 9.6 gm/dL (11.4-16.0); Lymphocytes # (A) 1.4 k/uL (1.0-4.8); Lymphocytes % (A) 9 %; MCH 27.3 pg (25.0-35.0); MCHC 31.5 g/dL (31.0-37.0); MCV 86.6 fL (80.0-100.0); Mean Platelet Volume 6.8; Monocytes # (A) 0.6 k/uL (0-1.0); Monocytes % (A) 4 %; Neutrophils # (A) 13.3 k/uL (1.3-7.7); Neutrophils % (A) 86 %; Platelet Count 312 k/uL (150-450); RBC 3.52 m/uL (3.80-5.40); RDW 14.4 % (11.5-15.5); WBC 15.4 k/uL (3.8-10.6)
[2017-03-21 12:00] LABS: Partial Thromboplastin Time 44.2 sec (22.0-30.0)
[2017-03-21 12:04] LABS: Prothrombin Time 61.1 sec (9.0-12.0)
[2017-03-21 12:16] LABS: Albumin 3.7 g/dL (3.5-5.0); Calcium 9.5 mg/dL (8.4-10.2); Magnesium 1.6 mg/dL (1.6-2.3); Phosphorus 2.8 mg/dL (2.5-4.5); Total Bilirubin 0.5 mg/dL (0.2-1.3); Total Protein 6.1 g/dL (6.3-8.2)
[2017-03-21 12:17] LABS: Potassium 4.9 mmol/L (3.5-5.1)
[2017-03-21 12:23] LABS: INR 6.7 (<1.2)
[2017-03-21 12:28] LABS: Creatine Kinase MB 0.9 ng/mL (0.0-2.4)
[2017-03-21 12:30] LABS: Troponin I 0.052 ng/mL (0.000-0.034)
--- NOTE | 2017-03-21 12:44 | XR ---
EXAMINATION TYPE: XR chest 1V DATE OF EXAM: 03/21/2017 COMPARISON: 10/30/2016 HISTORY: Weakness TECHNIQUE: Single frontal view of the chest is obtained. FINDINGS: Severe arthropathy of the left shoulder. Cardiac device noted. Heart size stable. No pneum othorax or pleural effusion. No focal consolidation. IMPRESSION: No acute process.
--- NOTE | 2017-03-21 12:47 | XR ---
EXAMINATION TYPE: XR pelvis AP view DATE OF EXAM: 03/21/2017 COMPARISON: NONE HISTORY: Pain Findings: Arthropathy of the hips noted. Vascular calcifications noted. SI joints symmetric. IMPRESSION: 1. No acute fracture.
[2017-03-21] MEDS ORDERED: Kcentra PER PHARMACY 1 EACH MISC MISCELLANE PRN (13:01)
[2017-03-21] MEDS ORDERED: PHYTONADIONE 5 MG in SODIUM CHLORIDE 0.9% 50 ML IVPB STA (13:01)
[2017-03-21] MEDS ORDERED: PHYTONADIONE ORAL 5 MG/5 ML ORAL.SYRG PO STA (13:01)
--- NOTE | 2017-03-21 13:03 | CT ---
EXAMINATION TYPE: CT brain gabriel gary DATE OF EXAM: 03/21/2017 COMPARISON: NONE HISTORY: Poor historian, extreme facial bruising CT DLP: 2881.[address] of the brain was performed. There is a large intraparenchymal hemorrhage posterior right parietal lobe which measures approximate ly 5.3 x 4.5 x 6.5 cm. Internal cystic component is noted and this does raise the possibility of hemo rrhagic mass. There is surrounding vasogenic edema. Hemorrhage is noted to dissect into the third sharif tricle. There is evidence of midline shift from right to left subfalcine herniation. Midline shift is estimat ed at 7 mm. Mild mass effect upon the right temporal horn. No additional areas of hemorrhage identified. There is right frontal scalp hematoma. No evidence for calvarial fracture. Incidental hyperostosis fr ontalis interna. If symptoms persist consider MRI. Osseous calvarium is intact. IMPRESSION: 1. Large intraparenchymal hemorrhage posterior right parietal lobe with internal fluid fluid level wh ich raises the possibility of hemorrhagic mass. There is surrounding vasogenic edema with the right t o left shift at the subfalcine herniation. CT Cervical Spine: Unenhanced CT of the cervical spine was performed with bone and soft tissue window settings submitted . Coronal and sagittal reconstruction is obtained. There is normal alignment and prevertebral soft tissues. No evidence for acute cervical fracture . Scattered degenerative disc disease and spondylosis. Biapical scarring. IMPRESSION: 1. No evidence for acute fracture or subluxation of the cervical spine.
--- NOTE | 2017-03-21 13:13 | CT ---
EXAMINATION TYPE: CT facial bones wo con DATE OF EXAM: 03/21/2017 COMPARISON: NONE HISTORY: Poor historian, extreme facial bruising CT DLP: 402.1 mGycm Automated exposure control for dose reduction was used. TECHNIQUE: CT scan of the sinuses is performed without contrast, axial images are obtained, coronal r eformatted images are also reviewed. FINDINGS: Assessment the nasal bones limited due to severe motion artifact. There is hyperostosis of the calvarium large right frontal soft tissue hematoma. Assessment of portions of the orbits are nondiagnostic due to motion zygomatic arch is intact. Grossl y no abnormal soft tissue within the visualized paranasal sinuses. Inferior orbital rim appears intac t. There is a nasal septal deviation. Large hemorrhage within the brain seen. IMPRESSION: 1. Limited assessment of the orbits and nasal bones due to motion artifact with no obvious acute hemo rrhage. 2. As noted on the CT of the brain there is a large intraparenchymal hemorrhage with significant midl ine shift and brainstem compression. Refer to the report CT brain.
[2017-03-21] MEDS ORDERED: HUMAN PROTHROMBIN COMPLX IV ONE (13:15)
[2017-03-21 14:04] VITALS: TEMP 97.1
[2017-03-21 14:17] VITALS: BP 199/83; PULSE 73; RESP 17
[2017-03-21 14:26] LABS: Appearance,Urine Clear (Clear); Bilirubin,Urine Negative (Negative); Blood,Urine Negative (Negative); Color,Urine Yellow; Glucose,Urine (UA) Negative (Negative); Ketones,Urine Negative (Negative); Leukocyte Esterase,Urine Negative (Negative); Nitrite,Urine Negative (Negative); Protein,Urine Trace (Negative); Specific Gravity,Urine 1.012 (1.001-1.035); Urobilinogen,Urine <2.0 mg/dL (<2.0)
[2017-03-21] MEDS ORDERED: HUMAN PROTHROMBIN COMPLX 500 UNIT/16 ML VIAL IV ONE (14:50)
== END 2017-03-21 14:13 | disposition short-term general hospital (02) ==
LOC: EC 11:28
DX: S06.369A Traumatic hemorrhage of cerebrum, unspecified, with loss of consciousness of unspecified duration, initial encounter (principal); S00.83XA Contusion of other part of head, initial encounter; D68.9 Coagulation defect, unspecified; R41.82 Altered mental status, unspecified; I48.91 Unspecified atrial fibrillation; I10 Essential (primary) hypertension; E11.9 Type 2 diabetes mellitus without complications; F32.9 Major depressive disorder, single episode, unspecified; Z87.891 Personal history of nicotine dependence; Z79.01 Long term (current) use of anticoagulants; Z79.4 Long term (current) use of insulin; Z79.899 Other long term (current) drug therapy; Z88.1 Allergy status to other antibiotic agents; Z91.040 Latex allergy status; Z85.42 Personal history of malignant neoplasm of other parts of uterus; Z85.828 Personal history of other malignant neoplasm of skin; Z90.710 Acquired absence of both cervix and uterus; Z86.14 Personal history of Methicillin resistant Staphylococcus aureus infection; Z98.890 Other specified postprocedural states; W18.30XA Fall on same level, unspecified, initial encounter
CPT/HCPCS: 99291 ×2; 96365 ×2; 96367 ×2; 96375 ×3; 96361 ×2; 36415; 93005; 80053; 82550; 82553; 83605; 83735; 84100; 84484; 85025; 85610; 85730; 81003; 87086; 72170; 71045; 72125; 70486; 70450; J3430; J2270; C9132

== ENCOUNTER → 2017-04-30 | Outpatient (CLI) | payer MEDICARE ==
--- NOTE | 2017-04-30 10:44 | CT ---
EXAMINATION TYPE: CT brain wo/w con DATE OF EXAM: 04/30/2017 COMPARISON: 03/21/2017 HISTORY: 71-year-old female Non traumatic hemorrhage of the right cerebral hemisphere TECHNIQUE: Examination was done in axial plane before and after intravenous contrast. 80 mL Visipaqu e 320 was administered. Coronal and sagittal reconstructions performed. CT DLP: 1999.60 mGycm Automated exposure control for dose reduction was used. FINDINGS: Interval right parietal craniotomy flap with underlying resection cavity and interval evacuation of t he patient's previous large intraparenchymal hematoma. Extra-axial fluid and foci of hyperdensity likely surgical material directly underlying the craniotom y flap measures up to 5 mm thick. Interval resolution of the previous leftward midline shift. Slight asymmetric fullness to the right c erebral hemisphere remains. No abnormal parenchymal enhancement is seen. The dural venous sinuses appear patent. There is no evidence of acute intracranial hemorrhage, acute ischemic changes, or hydrocephalus. The re is no effacement of basal subarachnoid cisterns. Moise-white matter distinction is preserved. Partially empty sella incidentally noted. Paranasal sinuses and mastoid air cells well pneumatized. Orbits and globes are intact. IMPRESSION: 1. Interval right parietal craniotomy flap with underlying resection cavity and evacuation of previou s large intraparenchymal hematoma. Resolution of previous midline shift. 2. Some surgical debris and mild extra-axial fluid measuring 5 mm thick, located deep the craniotomy flap. 3. No enhancing lesion seen. 4. No acute intracranial abnormality seen.
== END | disposition home or self-care (01) ==
LOC: RADCTMAIN 08:15
PROVIDERS: ATTEND Nurse Practitioner Family
DX: I61.2 Nontraumatic intracerebral hemorrhage in hemisphere, unspecified (principal)
CPT/HCPCS: 82565; 84520; 70470; 36415; Q9967

== ENCOUNTER 2017-07-17 17:49 | Inpatient (IN) | payer MEDICARE ==
[2017-07-17] MEDS ORDERED: SODIUM CHLORIDE 0.9% 1,000 ML IV STA (18:49)
--- NOTE | 2017-07-17 18:52 | ED ---
Nausea/Vomiting/Diarrhea HPI - General Source: patient, family, RN notes reviewed Mode of arrival: ambulatory Limitations: no limitations <Shawnee Wood - Last Filed: 07/17/17 22:11> <Brendon Putnam - Last Filed: 07/18/17 06:34> - General Chief complaint: Nausea/Vomiting/Diarrhea Stated complaint: diarrhea Time Seen by Provider: 07/17/17 18:39 - History of Present Illness Initial comments: This is a 71-year-old female who presents to the emergency department with chief complaint of diarrhea. Patient states that she has been having diarrhea for the past 4-5 days. She states that she usually has approximately 5 episodes of diarrhea each day. She reports some generalized abdominal cramping but no significant localized abdominal pain. Denies nausea or vomiting. Denies fevers or chills. Denies chest pain or shortness of breath. She states that she was seen by Dr. Murphy and an order was placed for a C. diff sample, however when they brought the sample to the lab it was closed. Patient's son is at bedside and states that patient was in a half-way from March to June and was on antibiotics at that time. Patient denies any urinary symptoms such as dysuria, hematuria or increased frequency. (Shawnee Wood) - Related Data Home Medications Medication Instructions Recorded Confirmed Insulin Detemir [Levemir Flexpen] 56 units SQ AC-SUPPER 01/04/14 07/17/17 Sertraline [Zoloft] 150 mg PO DAILY 01/04/14 07/17/17 Acetaminophen Tab [Tylenol] 500 mg PO Q6HR PRN 04/22/16 07/17/17 Gabapentin [Neurontin] 300 mg PO BID 04/22/16 07/17/17 Dicyclomine [Bentyl] 10 mg PO TID-W/MEALS 03/21/17 07/17/17 Furosemide [Lasix] 40 mg PO DAILY 03/21/17 07/17/17 Omeprazole [PriLOSEC] 20 mg PO AC-BID 03/21/17 07/17/17 Diphenox-Atrop 2.5-0.025 mg 1 tab PO Q6H PRN 07/17/17 07/17/17 [Lomotil] Labetalol HCl 100 mg PO Q12H 07/17/17 07/17/17 Potassium Chloride 8 meq PO DAILY 07/17/17 07/17/17 hydrALAZINE HCL 50 mg PO TID 07/17/17 07/17/17 Previous Rx's Medication Instructions Recorded amLODIPine [Norvasc] 10 mg PO DAILY #30 tab 05/04/16 Allergies Allergy/AdvReac Type Severity Reaction Status Date / Time Latex, Natural Rubber Allergy Itching Verified 07/17/17 18:57 sulfamethoxazole Allergy Rash/Hives Verified 07/17/17 18:57 [From Bactrim] trimethoprim [From Bactrim] Allergy Rash/Hives Verified 07/17/17 18:57 Review of Systems ROS Other: All systems not noted in ROS Statement are negative. <Shawnee Wood - Last Filed: 07/17/17 22:11> ROS Other: All systems not noted in ROS Statement are negative. <Brendon Putnam - Last Filed: 07/18/17 06:34> ROS Statement: Those systems with pertinent positive or pertinent negative responses have been documented in the HPI. Past Medical History Past Medical History: Atrial Fibrillation, Asthma, Diabetes Mellitus, Hypertension, Osteoarthritis (OA) Additional Past Medical History / Comment(s): Hypertension, diabetes mellitus, hyperlipidemia, paroxysmal defibrillation maintained on long-term articulation with warfarin, bronchial asthma, previous cardiac catheterization from January 2014 showing a mild coronary artery disease involving the LAD, uterine cancer 1994, broken left arm in 2006, skin cancer/resected History of Any Multi-Drug Resistant Organisms: MRSA Date of last positivie culture/infection: 06/09/11 MDRO Source:: right thumb Past Surgical History: Cholecystectomy, Hysterectomy Additional Past Surgical History / Comment(s): eye sx, "blood clot removed from brain" Past Anesthesia/Blood Transfusion Reactions: No Reported Reaction Past Psychological History: Depression Smoking Status: Former smoker Past Alcohol Use History: None Reported Past Drug Use History: None Reported - Past Family History Mother Family Medical History: Cancer, COPD, Hypertension Father Family Medical History: Cancer, Hypertension <Shawnee Wood - Last Filed: 07/17/17 22:11> General Exam Limitations: no limitations <Shawnee Wood - Last Filed: 07/17/17 22:11> <Brendon Putnam - Last Filed: 07/18/17 06:34> - General Exam Comments Initial Comments: General: Awake and alert, well-developed; in no apparent distress. Son is at bedside. HEENT: Head atraumatic, normocephalic. Pupils are equal, round and reactive to light. Extraocular movements intact. Oropharynx moist without erythema or exudate. Neck: Supple. Normal ROM. Cardiovascular: Regular rate and rhythm. No murmurs, rubs or gallops. Chest symmetrical. Respiratory: Lungs clear to auscultation bilaterally. No wheezes, rales or rhonchi. Normal respiratory effort with no use of accessory muscles. Abdomen: Soft, non-tender, non-distended. No rigidity, rebound or guarding. Normal bowel sounds in all 4 quadrants. Musculoskeletal: Normal ROM, no tenderness bilateral upper and lower extremities. Skin: [place], warm and dry. Neurological: Alert and oriented x3. CN II-XII grossly intact. Speech is fluent and answers are appropriate. No focal neuro deficits. Psychiatric: Normal mood and affect. No overt signs of depression or anxiety noted. (Shawnee Wood) Vital Signs 07/17/17 07/17/17 07/17/17 18:27 18:48 20:04 Temperature 100.2 F H 98.7 F 98.7 F Pulse Rate 61 63 Respiratory 20 18 Rate Blood Pressure 199/72 169/87 O2 Sat by Pulse 90 L 92 L 98 Oximetry 07/17/17 23:11 Temperature 98.3 F Pulse Rate 60 Respiratory 18 Rate Blood Pressure 131/57 O2 Sat by Pulse 98 Oximetry Medical Decision Making - Lab Data Result diagrams: 07/17/17 19:00 07/17/17 19:00 - Radiology Data Radiology results: report reviewed, image reviewed <Shawnee Wood - Last Filed: 07/17/17 22:11> - Lab Data Result diagrams: 07/17/17 19:00 07/17/17 19:00 <Brendon Putnam - Last Filed: 07/18/17 06:34> - Medical Decision Making This is a 71-year-old female who presents to the emergency department with chief complaint of diarrhea for the past 4-5 days. Patient complains of generalized abdominal cramping but is soft and nontender on physical examination. Patient's vital signs are stable and she is in no acute distress. CBC was obtained and was unremarkable. She did have a hemoglobin of 9.6 but this is consistent with prior studies. CMP revealed BUN line of 24 and a creatinine of 1.6, however this is consistent with dehydration. UA did reveal large leukocyte esterase, 31 white blood cells and bacteria. Patient will be started on Macrobid. Stool cultures are pending. Stool was checked for C. diff and this was positive. Patient will be admitted for fluids and antibiotics. Patient started on Flagyl. Findings and plan were discussed with patient and her son at bedside and they are in agreement for admission. (Shawnee Wood) I saw this patient in conjunction with the physician bilingual legal assistant. I performed independent history and physical exam. Agree with case management.. Case discussed with Dr. Harmon, who is covering for Dr. Willingham. He is states that patient should be admitted under Dr. Grewal, they consult to Dr. Willingham. ( Brendon Putnam) - Lab Data Lab Results 07/17/17 07/17/17 07/17/17 Range/Units 19:00 19:00 19:53 WBC 8.5 (3.8-10.6) k/uL RBC 3.78 L (3.80-5.40) m/uL Hgb 9.6 L (11.4-16.0) gm/dL Hct 30.9 L (34.0-46.0) % MCV 81.9 (80.0-100.0) fL MCH 25.5 (25.0-35.0) pg MCHC 31.2 (31.0-37.0) g/dL RDW 15.4 (11.5-15.5) % Plt Count 288 (150-450) k/uL Neutrophils % 71 % Lymphocytes % 18 % Monocytes % 6 % Eosinophils % 3 % Basophils % 0 % Neutrophils # 6.1 (1.3-7.7) k/uL Lymphocytes # 1.5 (1.0-4.8) k/uL Monocytes # 0.5 (0-1.0) k/uL Eosinophils # 0.2 (0-0.7) k/uL Basophils # 0.0 (0-0.2) k/uL Hypochromasia Moderate Sodium 141 (137-145) mmol/L Potassium 4.1 (3.5-5.1) mmol/L Chloride 101 (98-107) mmol/L Carbon Dioxide 26 (22-30) mmol/L Anion Gap 14 mmol/L BUN 24 H (7-17) mg/dL Creatinine 1.60 H (0.52-1.04) mg/dL Est GFR (CKD-EPI)AfAm 37 (>60 ml/min/1.73 sqM) Est GFR (CKD-EPI)NonAf 32 (>60 ml/min/1.73 sqM) Glucose 154 H (74-99) mg/dL Calcium 9.2 (8.4-10.2) mg/dL Total Bilirubin 0.4 (0.2-1.3) mg/dL AST 18 (14-36) U/L ALT 23 (9-52) U/L Alkaline Phosphatase 91 (38-126) U/L Total Protein 6.6 (6.3-8.2) g/dL Albumin 4.0 (3.5-5.0) g/dL Amylase 32 (30-110) U/L Lipase 56 (23-300) U/L Urine Color Yellow Urine Appearance Clear (Clear) Urine pH 5.0 (5.0-8.0) Ur Specific [place] 1.008 (1.001-1.035) Urine Protein Trace H (Negative) Urine Glucose (UA) Negative (Negative) Urine Ketones Negative (Negative) Urine Blood Negative (Negative) Urine Nitrite Negative (Negative) Urine Bilirubin Negative (Negative) Urine Urobilinogen <2.0 (<2.0) mg/dL Ur Leukocyte Esterase Large H (Negative) Urine RBC 1 (0-5) /hpf Urine WBC 31 H (0-5) /hpf Ur Squamous Epith Cells <1 (0-4) /hpf Urine Bacteria Rare H (None) /hpf Hyaline Casts 12 H (0-2) /lpf Urine Mucus Rare H (None) /hpf C. difficile (EIA) Intrp (Negative) 07/17/17 Range/Units 20:03 WBC (3.8-10.6) k/uL RBC (3.80-5.40) m/uL Hgb (11.4-16.0) gm/dL Hct (34.0-46.0) % MCV (80.0-100.0) fL MCH (25.0-35.0) pg MCHC (31.0-37.0) g/dL RDW (11.5-15.5) % Plt Count (150-450) k/uL Neutrophils % % Lymphocytes % % Monocytes % % Eosinophils % % Basophils % % Neutrophils # (1.3-7.7) k/uL Lymphocytes # (1.0-4.8) k/uL Monocytes # (0-1.0) k/uL Eosinophils # (0-0.7) k/uL Basophils # (0-0.2) k/uL Hypochromasia Sodium (137-145) mmol/L Potassium (3.5-5.1) mmol/L Chloride (98-107) mmol/L Carbon Dioxide (22-30) mmol/L Anion Gap mmol/L BUN (7-17) mg/dL Creatinine (0.52-1.04) mg/dL Est GFR (CKD-EPI)AfAm (>60 ml/min/1.73 sqM) Est GFR (CKD-EPI)NonAf (>60 ml/min/1.73 sqM) Glucose (74-99) mg/dL Calcium (8.4-10.2) mg/dL Total Bilirubin (0.2-1.3) mg/dL AST (14-36) U/L ALT (9-52) U/L Alkaline Phosphatase (38-126) U/L Total Protein (6.3-8.2) g/dL Albumin (3.5-5.0) g/dL Amylase (30-110) U/L Lipase (23-300) U/L Urine Color Urine Appearance (Clear) Urine pH (5.0-8.0) Ur Specific [place] (1.001-1.035) Urine Protein (Negative) Urine Glucose (UA) (Negative) Urine Ketones (Negative) Urine Blood (Negative) Urine Nitrite (Negative) Urine Bilirubin (Negative) Urine Urobilinogen (<2.0) mg/dL Ur Leukocyte Esterase (Negative) Urine RBC (0-5) /hpf Urine WBC (0-5) /hpf Ur Squamous Epith Cells (0-4) /hpf Urine Bacteria (None) /hpf Hyaline Casts (0-2) /lpf Urine Mucus (None) /hpf C. difficile (EIA) Intrp Positive A (Negative) - Radiology Data X-ray KUB impression: Overall nonobstructive bowel gas pattern. (Shawnee Wood) Disposition Is patient prescribed a controlled substance at d/c from ED?: No Time of Disposition: 22:12 <Shawnee Wood - Last Filed: 07/17/17 22:11> <Brendon Putnam - Last Filed: 07/18/17 06:34> Clinical Impression: Clostridium difficile infection, Acute cystitis Disposition: ADMITTED IP TO THIS HOSP Condition: Stable
[2017-07-17 19:05] LABS: Basophils % (A) 0 %; Eosinophils # (A) 0.2 k/uL (0-0.7); Eosinophils % (A) 3 %; HCT 30.9 % (34.0-46.0); HGB 9.6 gm/dL (11.4-16.0); Hypochromasia Moderate; Lymphocytes # (A) 1.5 k/uL (1.0-4.8); Lymphocytes % (A) 18 %; MCH 25.5 pg (25.0-35.0); MCHC 31.2 g/dL (31.0-37.0); MCV 81.9 fL (80.0-100.0); Mean Platelet Volume 6.8; Monocytes # (A) 0.5 k/uL (0-1.0); Monocytes % (A) 6 %; Neutrophils # (A) 6.1 k/uL (1.3-7.7); Neutrophils % (A) 71 %; Platelet Count 288 k/uL (150-450); RBC 3.78 m/uL (3.80-5.40); RDW 15.4 % (11.5-15.5); WBC 8.5 k/uL (3.8-10.6)
[2017-07-17 19:14] LABS: Calcium 9.2 mg/dL (8.4-10.2); Potassium 4.1 mmol/L (3.5-5.1); Total Bilirubin 0.4 mg/dL (0.2-1.3); Total Protein 6.6 g/dL (6.3-8.2)
--- NOTE | 2017-07-17 19:33 | XR ---
EXAMINATION TYPE: XR KUB DATE OF EXAM: 07/17/2017 COMPARISON: NONE HISTORY: Pain TECHNIQUE: Single supine KUB image of the abdomen is obtained FINDINGS: Small bowel demonstrates no evidence for dilatation or air fluid levels. Gas and fecal material is seen in non-distended colon. No convincing evidence for pneumoperitoneum. No unusual calcifications. The lung bases are clear. The osseous structures are intact. IMPRESSION: 1. Overall nonobstructive bowel gas pattern.
[2017-07-17 20:19] LABS: Appearance,Urine Clear (Clear); Bacteria,Urine Rare /hpf; Bilirubin,Urine Negative (Negative); Blood,Urine Negative (Negative); Color,Urine Yellow; Glucose,Urine (UA) Negative (Negative); Hyaline Casts,Urine 12 /lpf (0-2); Ketones,Urine Negative (Negative); Leukocyte Esterase,Urine Large (Negative); Mucus,Urine Rare /hpf; Nitrite,Urine Negative (Negative); Protein,Urine Trace (Negative); RBC,Urine 1 /hpf (0-5); Specific Gravity,Urine 1.008 (1.001-1.035); Squamous Epithelial Cell,Urine <1 /hpf (0-4); Urobilinogen,Urine <2.0 mg/dL (<2.0); WBC,Urine 31 /hpf (0-5)
[2017-07-17] MEDS ORDERED: metroNIDAZOLE 500 MG TAB PO STA (21:15)
[2017-07-17] MEDS ORDERED: NALOXONE 0.4 MG/ML 1 ML VIAL IV PRN (22:07)
[2017-07-17] MEDS ORDERED: ACETAMINOPHEN TAB 325 MG TAB PO PRN (22:07)
[2017-07-17] MEDS ORDERED: NITROFURANTOIN MONOHYD/M-CRYST 100 MG CAP PO STA (22:14)
[2017-07-17 22:55] LABS: Glucose,Whole Blood 170 mg/dL (75-99)
[2017-07-17] MEDS: SODIUM CHLORIDE 0.9% 1,000 ML IV SCH (23:11)
[2017-07-18 00:21] LABS: Glucose,Whole Blood 164 mg/dL (75-99)
[2017-07-18] MEDS: metroNIDAZOLE-NS PMX 500 MG in SALINE 1 100ML.BAG IVPB SCH ×3 (06:14→21:27)
[2017-07-18 07:08] LABS: Glucose,Whole Blood 133 mg/dL (75-99)
[2017-07-18] MEDS ORDERED: NITROFURANTOIN MONOHYD/M-CRYST 100 MG CAP PO SCH (09:00)
--- NOTE | 2017-07-18 11:27 | P.HPIM ---
History of Present Illness H&P Date: 07/18/17 Chief Complaint: Diarrhea This is a 71-year-old female, a patient of Dr. Willingham. She has a past medical history of recent blood clot removed from her brain after a fall while being on Coumadin at [facility] a few months ago. She's recently been at a detention for rehabilitation. She had been on antibiotics for the sutures in her head. And within the last 4 days patient had developed diarrhea. She was having multiple watery stools throughout the day. She presented to the emergency room for further evaluation. Stool was collected for C. diff and was found clot to be positive. She was started on Flagyl 500 mg IV every 8 hours. She was also initially started on Macrobid for a possible UTI in the emergency room. Patient has no urinary symptoms and likely the urinalysis is a contaminated from patient's stool. Macrobid will be discontinued. Patient had a temp of 100.2 on admission. Hemoglobin was 9.6. Last colonoscopy 5 years ago and was reported normal. She does report being on iron supplements but they were discontinued in the detention. Patient is unsure why. Iron studies have been ordered. She also had evidence of acute kidney injury likely is slightly dehydrated. She was placed on IV fluids. Lasix is been placed on hold. Patient also reports having shakes both her arms and legs and feeling weak. Likely related to the dehydration and diarrhea. Doubt any seizures. Patient had no loss of bowel or bladder control. She is awake and alert during the episodes. Patient denies any chest pain or shortness breath. Denies any vomiting. Denies any burning with urination. Review of Systems Please refer to HPI otherwise unremarkable Past Medical History Past Medical History: Atrial Fibrillation, Asthma, Diabetes Mellitus, Hypertension, Osteoarthritis (OA) Additional Past Medical History / Comment(s): Hypertension, diabetes mellitus, hyperlipidemia, paroxysmal defibrillation maintained on long-term articulation with warfarin (no longer taking), bronchial asthma, previous cardiac catheterization from January 2014 showing a mild coronary artery disease involving the LAD, uterine cancer 1994, broken left arm in 2006, skin cancer/ resected History of Any Multi-Drug Resistant Organisms: C-DIFF, MRSA Date of last positivie culture/infection: 07/17/17 CDI06/2011 MRSA MDRO Source:: MRSA THUMB Past Surgical History: Cholecystectomy, Hysterectomy Additional Past Surgical History / Comment(s): eye sx cornea transplant, "blood clot removed from brain" pacer Past Anesthesia/Blood Transfusion Reactions: No Reported Reaction Additional Past Anesthesia/Blood Transfusion Reaction / Comment(s): no previous blood transfusions Past Psychological History: Depression Smoking Status: Never smoker Past Alcohol Use History: None Reported Past Drug Use History: None Reported - Past Family History Mother Family Medical History: Cancer, COPD, Hypertension Father Family Medical History: Cancer, Hypertension Medications and Allergies Home Medications Medication Instructions Recorded Confirmed Type Insulin Detemir [Levemir Flexpen] 56 units SQ AC-SUPPER 01/04/14 07/17/17 History Sertraline [Zoloft] 150 mg PO DAILY 01/04/14 07/17/17 History Acetaminophen Tab [Tylenol] 500 mg PO Q6HR PRN 04/22/16 07/17/17 History Gabapentin [Neurontin] 300 mg PO BID 04/22/16 07/17/17 History amLODIPine [Norvasc] 10 mg PO DAILY #30 tab 05/04/16 07/17/17 Rx Dicyclomine [Bentyl] 10 mg PO TID-W/MEALS 03/21/17 07/17/17 History Furosemide [Lasix] 40 mg PO DAILY 03/21/17 07/17/17 History Omeprazole [PriLOSEC] 20 mg PO AC-BID 03/21/17 07/17/17 History Diphenox-Atrop 2.5-0.025 mg 1 tab PO Q6H PRN 07/17/17 07/17/17 History [Lomotil] Labetalol HCl 100 mg PO Q12H 07/17/17 07/17/17 History Potassium Chloride 8 meq PO DAILY 07/17/17 07/17/17 History hydrALAZINE HCL 50 mg PO TID 07/17/17 07/17/17 History Allergies Allergy/AdvReac Type Severity Reaction Status Date / Time Latex, Natural Rubber Allergy Itching Verified 07/17/17 18:57 sulfamethoxazole Allergy Rash/Hives Verified 07/17/17 18:57 [From Bactrim] trimethoprim [From Bactrim] Allergy Rash/Hives Verified 07/17/17 18:57 Physical Exam Vitals: Vital Signs Temp Pulse Pulse Resp BP BP Pulse Ox 07/18/17 06:50 97.2 F L 61 18 147/67 97 07/17/17 23:33 98.0 F 63 18 154/66 93 L 07/17/17 23:11 98.3 F 60 18 131/57 98 07/17/17 20:04 98.7 F 63 18 169/87 98 07/17/17 18:48 98.7 F 92 L 07/17/17 18:27 100.2 F H 61 20 199/72 90 L Intake and Output 07/17/17 07/18/17 07/18/17 22:59 06:59 14:59 Other: # Bowel Movements 2 Weight 103.419 kg Head normocephalic Neck supple Lungs clear to auscultation bilaterally no wheezing or crackles Heart regular rate and rhythm S1-S2, no rub or gallop Abdomen is soft nontender nondistended positive bowel sounds no hepatosplenomegaly Extremities no edema Neuro alert and orientated to 3 Results CBC & Chem 7: 07/17/17 19:00 07/17/17 19:00 Labs: Abnormal Lab Results - Last 24 Hours (Table) 07/17/17 07/17/17 07/17/17 Range/Units 19:00 19:00 19:53 RBC 3.78 L (3.80-5.40) m/uL Hgb 9.6 L (11.4-16.0) gm/dL Hct 30.9 L (34.0-46.0) % BUN 24 H (7-17) mg/dL Creatinine 1.60 H (0.52-1.04) mg/dL Glucose 154 H (74-99) mg/dL POC Glucose (mg/dL) (75-99) mg/dL Urine Protein Trace H (Negative) Ur Leukocyte Esterase Large H (Negative) Urine WBC 31 H (0-5) /hpf Urine Bacteria Rare H (None) /hpf Hyaline Casts 12 H (0-2) /lpf Urine Mucus Rare H (None) /hpf C. difficile (EIA) Intrp (Negative) 07/17/17 07/17/17 07/18/17 Range/Units 20:03 22:51 00:20 RBC (3.80-5.40) m/uL Hgb (11.4-16.0) gm/dL Hct (34.0-46.0) % BUN (7-17) mg/dL Creatinine (0.52-1.04) mg/dL Glucose (74-99) mg/dL POC Glucose (mg/dL) 170 H 164 H (75-99) mg/dL Urine Protein (Negative) Ur Leukocyte Esterase (Negative) Urine WBC (0-5) /hpf Urine Bacteria (None) /hpf Hyaline Casts (0-2) /lpf Urine Mucus (None) /hpf C. difficile (EIA) Intrp Positive A (Negative) 07/18/17 Range/Units 07:06 RBC (3.80-5.40) m/uL Hgb (11.4-16.0) gm/dL Hct (34.0-46.0) % BUN (7-17) mg/dL Creatinine (0.52-1.04) mg/dL Glucose (74-99) mg/dL POC Glucose (mg/dL) 133 H (75-99) mg/dL Urine Protein (Negative) Ur Leukocyte Esterase (Negative) Urine WBC (0-5) /hpf Urine Bacteria (None) /hpf Hyaline Casts (0-2) /lpf Urine Mucus (None) /hpf C. difficile (EIA) Intrp (Negative) Microbiology - Last 24 Hours (Table) 07/17/17 19:53 Urine Culture - Preliminary Urine,Voided 07/17/17 20:03 Stool Culture - Preliminary Stool Thrombosis Risk Factor Assmnt - Choose All That Apply Any of the Below Risk Factors Present?: Yes Each Factor Represents 1 point: Obesity (BMI >25) Other Risk Factors: Yes Other congenital or acquired thrombophilia - If yes, enter type in comment: No Thrombosis Risk Factor Assessment Total Risk Factor Score: 1 Thrombosis Risk Factor Assessment Level: Low Risk Assessment and Plan Assessment: 1. C. diff colitis: Continue Flagyl 500 mg IV every 8 hours. Patient had no stools through the night or this morning. She had recently been on antibiotics. 2. Acute on chronic kidney disease stage 3: Hold Lasix. Continue with IV fluids repeat labs in a.m. 3. Anemia: Hemoglobin 9.6. Check iron studies. Patient reports no active bleeding. She has been on iron supplement in the past 4. History of chronic diastolic congestive heart failure with an EF of 55%. No evidence of exacerbation 5. History of sick sinus syndrome status post pacemaker 6. History of diabetes mellitus type 2: Continue home insulin and add sliding scale 7. History of paroxysmal atrial fibrillation off of anticoagulation due to brain bleed 8. History of brain bleed with clots removed at [facility] a few months ago DVT prophylaxis SCDs Time with Patient: Greater than 30 (Greater than 50% of the total time spent in counseling and coordination of care.I performed an examination of the patient and discussed their management with the physician Cotton Roll Packer. I have reviewed the Physician Cotton Roll Packer's notes and agree with the documented findings and plan of care)
[2017-07-18 11:39] LABS: Glucose,Whole Blood 131 mg/dL (75-99)
[2017-07-18] MEDS: amLODIPine 10 MG TAB PO SCH (12:05)
[2017-07-18] MEDS: SERTRALINE 100 MG TAB PO SCH (12:05)
[2017-07-18] MEDS: hydrALAZINE HCL 50 MG TAB PO SCH ×3 (12:05→21:27)
[2017-07-18] MEDS: GABAPENTIN 300 MG CAP PO SCH ×2 (12:05→21:27)
[2017-07-18] MEDS: LABETALOL 100 MG TAB PO SCH ×2 (12:05→21:27)
[2017-07-18] MEDS: SODIUM CHLORIDE 0.9% 1,000 ML IV SCH (12:06)
[2017-07-18] MEDS: INSULIN ASPART 100 UNIT/ML 1 ML 10 ML VIAL SQ SCH ×3 (12:12→21:28)
--- NOTE | 2017-07-18 12:40 | P.CNPUL ---
History of Present Illness Consult date: 07/18/17 Requesting physician: Ely Grewal Reason for consult: other Chief complaint: Diarrhea, C. diff colitis History of present illness: Mrs. Montes is a 71-year-old white female patient that follows with Dr. Harmon for primary care services, presented to the emergency department on 07/17/2017 10/19/1950 with complaints of increasing watery diarrhea over the course of the last 3-4 days. Patient has a history of a recent posterior right parietal lobe intracranial hemorrhage in March 2017 after sustaining a fall, she was transferred to the [facility] and underwent brain surgery with removal of the blood clot. Patient underwent an extended hospitalization followed by rehabilitation in a halfway from March through June. Patient was then discharged home 2-3 weeks ago, and she states while at the halfway she was having diarrhea, was given IM Imodium, however her stool was not tested for C. diff. She thinks she may have received some antibiotics in the initial stages of her hospitalization at the [facility], no recent rounds of antibiotics. In the last 3-4 days her diarrhea increased, she is having 4-5 watery bowel movements a day. Denies any urinary symptoms, although urinalysis showed evidence of leukocyte esterase, bacteria and WBCs. She has been taking hydrated, she has been nauseous but reports no vomiting. Reports some abdominal cramping. Lab work showed no evidence of leukocytosis of EBC is 8.5, hemoglobin is 9.6, electrolytes are within normal limits, patient has evidence of acute kidney injury likely from dehydration with BUN of 24, and creatinine is 1.6. Amylase and lipase and liver transaminases were within normal limits. C. diff test was positive, KUB abdomen showed nonobstructive bowel gas pattern. Past medical history includes diabetes, diastolic heart failure, chronic A. fib, asthma, skin cancer would removal, hypertension. Patient was started on IV Flagyl, she was given 1 L of IV 0.9 normal seen bolus and was admitted for further management. Review of Systems All systems: negative Constitutional: Denies chills, Denies fever Eyes: denies blurred vision, denies pain Ears, nose, mouth and throat: Denies headache, Denies sore throat Cardiovascular: Denies chest pain, Denies shortness of breath Respiratory: Denies cough Gastrointestinal: Reports as per HPI, Reports change in bowel habits, Reports diarrhea, Denies abdominal pain, Denies nausea, Denies vomiting Genitourinary: Denies dysuria, Denies hematuria Musculoskeletal: Denies myalgias Integumentary: Reports dryness, Denies pruritus, Denies rash Neurological: Denies numbness, Denies weakness Psychiatric: Denies anxiety, Denies depression Endocrine: Denies fatigue, Denies weight change Past Medical History Past Medical History: Atrial Fibrillation, Asthma, Diabetes Mellitus, Hypertension, Osteoarthritis (OA) Additional Past Medical History / Comment(s): Hypertension, diabetes mellitus, hyperlipidemia, paroxysmal defibrillation maintained on long-term articulation with warfarin (no longer taking), bronchial asthma, previous cardiac catheterization from January 2014 showing a mild coronary artery disease involving the LAD, uterine cancer 1994, broken left arm in 2006, skin cancer/ resected History of Any Multi-Drug Resistant Organisms: C-DIFF, MRSA Date of last positivie culture/infection: 07/17/17 CDI06/2011 MRSA MDRO Source:: MRSA THUMB Past Surgical History: Cholecystectomy, Hysterectomy Additional Past Surgical History / Comment(s): eye sx cornea transplant, "blood clot removed from brain" pacer Past Anesthesia/Blood Transfusion Reactions: No Reported Reaction Additional Past Anesthesia/Blood Transfusion Reaction / Comment(s): no previous blood transfusions Past Psychological History: Depression Smoking Status: Never smoker Past Alcohol Use History: None Reported Past Drug Use History: None Reported - Past Family History Mother Family Medical History: Cancer, COPD, Hypertension Father Family Medical History: Cancer, Hypertension Medications and Allergies Home Medications Medication Instructions Recorded Confirmed Type Insulin Detemir [Levemir Flexpen] 56 units SQ AC-SUPPER 01/04/14 07/17/17 History Sertraline [Zoloft] 150 mg PO DAILY 01/04/14 07/17/17 History Acetaminophen Tab [Tylenol] 500 mg PO Q6HR PRN 04/22/16 07/17/17 History Gabapentin [Neurontin] 300 mg PO BID 04/22/16 07/17/17 History amLODIPine [Norvasc] 10 mg PO DAILY #30 tab 05/04/16 07/17/17 Rx Dicyclomine [Bentyl] 10 mg PO TID-W/MEALS 03/21/17 07/17/17 History Furosemide [Lasix] 40 mg PO DAILY 03/21/17 07/17/17 History Omeprazole [PriLOSEC] 20 mg PO AC-BID 03/21/17 07/17/17 History Diphenox-Atrop 2.5-0.025 mg 1 tab PO Q6H PRN 07/17/17 07/17/17 History [Lomotil] Labetalol HCl 100 mg PO Q12H 07/17/17 07/17/17 History Potassium Chloride 8 meq PO DAILY 07/17/17 07/17/17 History hydrALAZINE HCL 50 mg PO TID 07/17/17 07/17/17 History Allergies Allergy/AdvReac Type Severity Reaction Status Date / Time Latex, Natural Rubber Allergy Itching Verified 07/17/17 18:57 sulfamethoxazole Allergy Rash/Hives Verified 07/17/17 18:57 [From Bactrim] trimethoprim [From Bactrim] Allergy Rash/Hives Verified 07/17/17 18:57 Physical Exam Vitals: Vital Signs Temp Pulse Pulse Resp BP BP Pulse Ox 07/18/17 06:50 97.2 F L 61 18 147/67 97 07/17/17 23:33 98.0 F 63 18 154/66 93 L 07/17/17 23:11 98.3 F 60 18 131/57 98 07/17/17 20:04 98.7 F 63 18 169/87 98 07/17/17 18:48 98.7 F 92 L 07/17/17 18:27 100.2 F H 61 20 199/72 90 L Intake and Output 07/17/17 07/18/17 07/18/17 22:59 06:59 14:59 Other: # Bowel Movements 2 Weight 103.419 kg Pleasant 71-year-old white female patient resting comfortably in bed, in no acute distress - Constitutional General appearance: no acute distress - EENT Eyes: PERRLA, dentition normal ENT: NA/AT Ears: bilateral: normal - Neck Neck: no lymphadenopathy, normal ROM Carotids: bilateral: upstroke normal Thyroid: bilateral: normal size - Respiratory Respiratory: bilateral: CTA - Cardiovascular Rhythm: irregularly irregular Heart sounds: normal: S1, S2 ankle Peripheral Edema: bilateral: Trace dorsalis pedis Peripheral Pulses: bilateral: Normal radial pulse Peripheral Pulses: bilateral: Normal - Gastrointestinal General gastrointestinal: no organomegaly, soft, no tenderness - Integumentary Patient has healed abrasions on her left anterior jimenez, from scratching Integumentary: normal, rash - Neurologic Neurologic: CNII-XII intact - Musculoskeletal Musculoskeletal: left sided weakness - Psychiatric Psychiatric: A&O x's 3, appropriate affect, intact judgment & insight Results - Laboratory Findings CBC and BMP: 07/17/17 19:00 07/17/17 19:00 Abnormal lab findings: Abnormal Labs 07/17/17 07/17/17 07/17/17 19:00 19:00 19:53 RBC 3.78 L Hgb 9.6 L Hct 30.9 L BUN 24 H Creatinine 1.60 H Glucose 154 H POC Glucose (mg/dL) Urine Protein Trace H Ur Leukocyte Esterase Large H Urine WBC 31 H Urine Bacteria Rare H Hyaline Casts 12 H Urine Mucus Rare H C. difficile (EIA) Intrp 07/17/17 07/17/17 07/18/17 20:03 22:51 00:20 RBC Hgb Hct BUN Creatinine Glucose POC Glucose (mg/dL) 170 H 164 H Urine Protein Ur Leukocyte Esterase Urine WBC Urine Bacteria Hyaline Casts Urine Mucus C. difficile (EIA) Intrp Positive A 07/18/17 07/18/17 07:06 11:29 RBC Hgb Hct BUN Creatinine Glucose POC Glucose (mg/dL) 133 H 131 H Urine Protein Ur Leukocyte Esterase Urine WBC Urine Bacteria Hyaline Casts Urine Mucus C. difficile (EIA) Intrp - Diagnostic Findings Additional studies: KUB x-ray report reviewed Assessment and Plan Plan: Assessment: #1. Acute C. diff colitis #2. Acute kidney injury secondary to dehydration related to C. diff colitis and diuretics #3. Chronic kidney disease #4. Recent history of intracranial hemorrhage in March 2017, status post surgery with blood clot removal #5. Anemia #6. History of chronic diastolic congestive heart failure with an EF of 55% #7. Chronic atrial fibrillation, currently not on any anticoagulation due to a recent history of intracranial bleeding #8. Permanent pacemaker #9. Diabetes mellitus type 2 #10. History of bronchial asthma, unspecified, without any evidence of current exacerbation #11. History of skin cancer on the face, with subsequent removal #12. Hypertension Plan: Continue IV Flagyl, patient has received IV hydration, has not had any diarrhea today, abdomen is soft and nontender, less crampy. Patient is awake alert, no altered mentation, denies any urinary symptoms. Continue monitoring labs, electrolytes, renal profile, vital signs. Will follow I performed a history & physical examination of the patient and discussed their management with my nurse practitioner, Suzie Mittal. I reviewed the nurse practitioner's note and agree with the documented findings and plan of care. Lung sounds are clear. The findings and the impression was discussed with the patient. I attest to the documentation by the nurse practitioner. Time with Patient: Greater than 30
[2017-07-18] MEDS ORDERED: MINERAL OIL-WHITE PETROLATUM 120 GM JAR TOPICAL PRN (13:54)
[2017-07-18 17:10] LABS: Glucose,Whole Blood 167 mg/dL (75-99)
[2017-07-18] MEDS ORDERED: INSULIN DETEMIR 100 UNIT/ML 10 ML VIAL SQ SCH (17:30)
[2017-07-18 19:49] LABS: Hemoglobin A1C 5.6 % (4.0-6.0)
[2017-07-18 20:52] LABS: Glucose,Whole Blood 115 mg/dL (75-99)
[2017-07-19] MEDS: SODIUM CHLORIDE 0.9% 1,000 ML IV SCH ×2 (01:24→12:59)
[2017-07-19 05:57] VITALS: BP 154/71; PULSE 60; TEMP 97.8
[2017-07-19] MEDS: metroNIDAZOLE-NS PMX 500 MG in SALINE 1 100ML.BAG IVPB SCH ×2 (06:22→12:59)
[2017-07-19 07:45] LABS: Glucose,Whole Blood 71 mg/dL (75-99)
[2017-07-19] MEDS: INSULIN ASPART 100 UNIT/ML 1 ML 10 ML VIAL SQ SCH ×2 (08:07→12:50)
[2017-07-19] MEDS ORDERED: POTASSIUM CHLORIDE ER 10 MEQ TAB.ER.PRT PO SCH (09:00)
[2017-07-19] MEDS: GABAPENTIN 300 MG CAP PO SCH (09:27)
[2017-07-19] MEDS: amLODIPine 10 MG TAB PO SCH (09:27)
[2017-07-19] MEDS: hydrALAZINE HCL 50 MG TAB PO SCH (09:27)
[2017-07-19] MEDS: SERTRALINE 100 MG TAB PO SCH (09:27)
[2017-07-19] MEDS: LABETALOL 100 MG TAB PO SCH (09:28)
[2017-07-19 09:39] LABS: Basophils # (A) 0.1 k/uL (0-0.2); Basophils % (A) 1 %; Eosinophils # (A) 0.2 k/uL (0-0.7); Eosinophils % (A) 3 %; HCT 33.3 % (34.0-46.0); Hypochromasia Marked; Lymphocytes # (A) 1.2 k/uL (1.0-4.8); Lymphocytes % (A) 18 %; MCH 25.5 pg (25.0-35.0); MCHC 30.1 g/dL (31.0-37.0); MCV 84.6 fL (80.0-100.0); Mean Platelet Volume 6.5; Monocytes # (A) 0.4 k/uL (0-1.0); Monocytes % (A) 6 %; Neutrophils # (A) 4.8 k/uL (1.3-7.7); Neutrophils % (A) 70 %; Platelet Count 293 k/uL (150-450); RBC 3.94 m/uL (3.80-5.40); RDW 15.2 % (11.5-15.5); WBC 6.9 k/uL (3.8-10.6)
[2017-07-19 09:48] LABS: Albumin 3.8 g/dL (3.5-5.0); Calcium 9.3 mg/dL (8.4-10.2); Potassium 4.2 mmol/L (3.5-5.1); Total Bilirubin 0.4 mg/dL (0.2-1.3); Total Protein 6.3 g/dL (6.3-8.2)
[2017-07-19 11:07] VITALS: RESP 16
--- NOTE | 2017-07-19 11:42 | P.PN ---
Subjective Progress Note Date: 07/19/17 Principal diagnosis: C. diff colitis, acute kidney injury Mrs. Montes is a 71-year-old white female patient that follows with Dr. Harmon for primary care services, presented to the emergency department on 07/17/2017 10/19/1950 with complaints of increasing watery diarrhea over the course of the last 3-4 days. Patient has a history of a recent posterior right parietal lobe intracranial hemorrhage in March 2017 after sustaining a fall, she was transferred to the [facility] and underwent brain surgery with removal of the blood clot. Patient underwent an extended hospitalization followed by rehabilitation in a longterm from March through June. Patient was then discharged home 2-3 weeks ago, and she states while at the longterm she was having diarrhea, was given IM Imodium, however her stool was not tested for C. diff. She thinks she may have received some antibiotics in the initial stages of her hospitalization at the [facility], no recent rounds of antibiotics. In the last 3-4 days her diarrhea increased, she is having 4-5 watery bowel movements a day. Denies any urinary symptoms, although urinalysis showed evidence of leukocyte esterase, bacteria and WBCs. She has been taking hydrated, she has been nauseous but reports no vomiting. Reports some abdominal cramping. Lab work showed no evidence of leukocytosis of EBC is 8.5, hemoglobin is 9.6, electrolytes are within normal limits, patient has evidence of acute kidney injury likely from dehydration with BUN of 24, and creatinine is 1.6. Amylase and lipase and liver transaminases were within normal limits. C. diff test was positive, KUB abdomen showed nonobstructive bowel gas pattern. Past medical history includes diabetes, diastolic heart failure, chronic A. fib, asthma, skin cancer would removal, hypertension. Patient was started on IV Flagyl, she was given 1 L of IV 0.9 normal seen bolus and was admitted for further management. On 07/19/2017 patient seen in follow-up. She only had one episode of a soft formed stool this morning, she continues on IV Flagyl. Afebrile, hemodynamically stable, denies any respiratory complaints, denies any chest pain or dyspnea. She has been ambulating with a walker and physical therapy, tolerating activity well. Today's labs show WBC of 6.9, hemoglobin of 10.0, electrolytes are within normal limits, renal profile is improving, with a BUN of 14 down from 24, and creatinine of 1.18 down from 1.6. Urine and stool cultures are pending at this time, she denies any urinary complaints. Continues on IV 0.9 normal saline at a rate of 75 ML per hour. Objective - Vital Signs Vital signs: Vital Signs Temp 97.8 F 07/19/17 05:55 Pulse 60 07/19/17 05:55 Resp 16 07/19/17 08:15 BP 154/71 07/19/17 05:55 Pulse Ox 97 07/19/17 05:55 Intake & Output 07/18/17 07/19/17 07/19/17 18:59 06:59 18:59 Intake Total 1200 Balance 1200 Intake: Oral 1200 Other: # Voids 1 1 # Bowel Movements 1 1 - Exam Pleasant 71-year-old white female patient resting comfortably in bed, in no acute distress - Constitutional General appearance: no acute distress - EENT Eyes: PERRLA, dentition normal ENT: NA/AT Ears: bilateral: normal - Neck Neck: no lymphadenopathy, normal ROM Carotids: bilateral: upstroke normal Thyroid: bilateral: normal size - Respiratory Respiratory: bilateral: CTA - Cardiovascular Rhythm: irregularly irregular Heart sounds: normal: S1, S2 ankle Peripheral Edema: bilateral: Trace dorsalis pedis Peripheral Pulses: bilateral: Normal radial pulse Peripheral Pulses: bilateral: Normal - Gastrointestinal General gastrointestinal: no organomegaly, soft, no tenderness - Integumentary Patient has healed abrasions on her left anterior jimenez, from scratching Integumentary: normal, rash - Neurologic Neurologic: CNII-XII intact - Musculoskeletal Musculoskeletal: left sided weakness - Psychiatric Psychiatric: A&O x's 3, appropriate affect, intact judgment & insight - Labs CBC & Chem 7: 07/19/17 08:47 07/19/17 08:47 Labs: Abnormal Lab Results - Last 24 Hours (Table) 07/18/17 07/18/17 07/18/17 Range/Units 11:29 17:07 20:40 Hgb (11.4-16.0) gm/dL Hct (34.0-46.0) % MCHC (31.0-37.0) g/dL Creatinine (0.52-1.04) mg/dL Glucose (74-99) mg/dL POC Glucose (mg/dL) 131 H 167 H 115 H (75-99) mg/dL 07/19/17 07/19/17 07/19/17 Range/Units 07:40 08:47 08:47 Hgb 10.0 L (11.4-16.0) gm/dL Hct 33.3 L (34.0-46.0) % MCHC 30.1 L (31.0-37.0) g/dL Creatinine 1.18 H (0.52-1.04) mg/dL Glucose 100 H (74-99) mg/dL POC Glucose (mg/dL) 71 L (75-99) mg/dL Microbiology - Last 24 Hours (Table) 07/18/17 16:33 Urine Culture - Preliminary Urine,Voided 07/17/17 19:53 Urine Culture - Preliminary Urine,Voided Assessment and Plan Plan: Assessment: #1. Acute C. diff colitis #2. Acute kidney injury secondary to dehydration related to C. diff colitis and diuretics, improving #3. Chronic kidney disease #4. Recent history of intracranial hemorrhage in March 2017, status post surgery with blood clot removal #5. Anemia #6. History of chronic diastolic congestive heart failure with an EF of 55% #7. Chronic atrial fibrillation, currently not on any anticoagulation due to a recent history of intracranial bleeding #8. Permanent pacemaker #9. Diabetes mellitus type 2 #10. History of bronchial asthma, unspecified, without any evidence of current exacerbation #11. History of skin cancer on the face, with subsequent removal #12. Hypertension Plan: Continue current medical treatment, continue IV hydration, IV Flagyl. Today lab work shows improvement of patient's renal profile, patient is afebrile, vital signs are stable. Patient is improving, the diarrhea has subsided significantly. No active pulmonary issues. I performed a history & physical examination of the patient and discussed their management with my nurse practitioner, Suzie Mittal. I reviewed the nurse practitioner's note and agree with the documented findings and plan of care. Lung sounds are clear. The findings and the impression was discussed with the patient. I attest to the documentation by the nurse practitioner. Time with Patient: Less than 30
[2017-07-19 12:20] LABS: Glucose,Whole Blood 88 mg/dL (75-99)
--- NOTE | 2017-07-19 13:14 | P.DS ---
Providers Date of admission: 07/17/17 22:29 Expected date of discharge: 07/19/17 Attending physician: Ely Grewal Consults: 07/17/17 22:08 Consult Physician Urgent Consulting Provider: Lisa Willingham Consult Reason/Comments: C. difficile colitis Do you want consulting provider notified?: Yes Primary care physician: Lisa Willingham Hospital Course: Discharge diagnosis 1. Acute C. diff colitis: likely secondary to patient being on antibiotics recently. Her stools are less frequent and have become more formed. Patient is stable for discharge. She'll be discharged home with Flagyl 500 mg 3 times a day for 14 more days 2. Acute on chronic kidney disease stage 3: Acute kidney injury likely related to patient's diarrhea, dehydration and diuretics. Kidney function showing improvement. creatinine at 1.18. Patient resume her Lasix tomorrow 3. Anemia: Likely iron deficiency anemia. Will have iron studies checked before patient discharge and will have her follow-up with her PCP in the office for results. Hemoglobin at discharge is 10 . Patient reports no active bleeding. She has been on iron supplement in the past 4. History of chronic diastolic congestive heart failure with an EF of 55%. No evidence of exacerbation 5. History of sick sinus syndrome status post pacemaker 6. History of diabetes mellitus type 2: Continue home insulin and add sliding scale 7. History of paroxysmal atrial fibrillation off of anticoagulation due to brain bleed 8. History of brain bleed with clots removed at [facility] a few months ago Hospital course This is a 71-year-old female, a patient of Dr. Willingham. She has a past medical history of recent blood clot removed from her brain after a fall while being on Coumadin at [facility] a few months ago. [facility]'s [facility] a [facility]. She had been on antibiotics for the sutures in her head. And within the last 4 days patient had developed diarrhea. She was having multiple watery stools throughout the day. She presented to the emergency room for further evaluation. Stool was collected for C. diff and was found clot to be positive. She was started on Flagyl 500 mg IV every 8 hours. She was also initially started on Macrobid for a possible UTI in the emergency room. Patient has no urinary symptoms and likely the urinalysis is a contaminated from patient's stool. Macrobid will be discontinued. Patient had a temp of 100.2 on admission. Hemoglobin was 9.6. Last colonoscopy 5 years ago and was reported normal. She does report being on iron supplements but they were discontinued in the [facility]. Patient is unsure why. Iron studies have been ordered. She also had evidence of acute kidney injury likely is slightly dehydrated. She was placed on IV fluids. Lasix is been placed on hold. Patient also reports having shakes both her arms and legs and feeling weak. Likely related to the dehydration and diarrhea. Doubt any seizures. Patient had no loss of bowel or bladder control. She is awake and alert during the episodes. Patient denies any chest pain or shortness breath. Denies any vomiting. Denies any burning with urination. Patient was started on Flagyl for her stool being positive for C. diff colitis. Patient's diarrhea improved stools are less frequent and became more formed. She'll be some able to be discharged with oral Flagyl for 14 more days. Patient also had some evidence of anemia and had been on iron supplements in the past. She reports her iron was discontinued. Hemoglobin was 9.6 and has gone up to 10. No active signs of bleeding. Unfortunately iron studies were collected yesterday. We'll have them drawn before she is discharged and will have her follow-up with results with her PCP in the office. I'm we'll resume patient's iron 3 and 25 mg twice a day. And recommend that she has a CBC and BMP checked within 1 week. Kidney functions of also improved with IV fluids. Patient resume her Lasix tomorrow. Omeprazole also discontinued during this admission. It can exacerbate the effect of the C.diff I performed an examination of the patient and discussed their management with the physician Finance Consultant. I have reviewed the Physician Finance Consultant's notes and agree with the documented findings and plan of care Patient Condition at Discharge: Stable Plan - Discharge Summary Discharge Rx Participant: No New Discharge Prescriptions: New metroNIDAZOLE [Flagyl] 500 mg PO TID #42 tab Ferrous Sulfate [Iron (65 MG Elemental)] 325 mg PO BID #60 tab Continue Sertraline [Zoloft] 150 mg PO DAILY Insulin Detemir [Levemir Flexpen] 56 units SQ AC-SUPPER Acetaminophen Tab [Tylenol] 500 mg PO Q6HR PRN PRN Reason: Pain Gabapentin [Neurontin] 300 mg PO BID amLODIPine [Norvasc] 10 mg PO DAILY #30 tab Dicyclomine [Bentyl] 10 mg PO TID-W/MEALS hydrALAZINE HCL 50 mg PO TID Potassium Chloride 8 meq PO DAILY Labetalol HCl 100 mg PO Q12H Furosemide [Lasix] 40 mg PO DAILY #0 Discontinued Omeprazole [PriLOSEC] 20 mg PO AC-BID Diphenox-Atrop 2.5-0.025 mg [Lomotil] 1 tab PO Q6H PRN PRN Reason: Diarrhea Discharge Medication List Insulin Detemir [Levemir Flexpen] 56 units SQ AC-SUPPER 01/04/14 [History] Sertraline [Zoloft] 150 mg PO DAILY 01/04/14 [History] Acetaminophen Tab [Tylenol] 500 mg PO Q6HR PRN 04/22/16 [History] Gabapentin [Neurontin] 300 mg PO BID 04/22/16 [History] amLODIPine [Norvasc] 10 mg PO DAILY #30 tab 05/04/16 [Rx] Dicyclomine [Bentyl] 10 mg PO TID-W/MEALS 03/21/17 [History] Labetalol HCl 100 mg PO Q12H 07/17/17 [History] Potassium Chloride 8 meq PO DAILY 07/17/17 [History] hydrALAZINE HCL 50 mg PO TID 07/17/17 [History] Ferrous Sulfate [Iron (65 MG Elemental)] 325 mg PO BID #60 tab 07/19/17 [Rx] Furosemide [Lasix] 40 mg PO DAILY #0 07/19/17 [Rx] metroNIDAZOLE [Flagyl] 500 mg PO TID #42 tab 07/19/17 [Rx] Follow up Appointment(s)/Referral(s): Lisa Willingham MD [Primary Care Provider] - 1-2 days [facility] Visiting Nurse, [NON-STAFF] - Ambulatory/Diagnostic Orders: Basic Metabolic Panel [LAB.AMB] Time Frame: 1 Week, Location: Determined By Patient Complete Blood Count w/diff [LAB.AMB] Time Frame: 1 Week, Location: Determined By Patient Activity/Diet/Wound Care/Special Instructions: Please take medications as prescribed. Please follow up with primary care provider within 1-2 days. Return to emergency department if symptoms should worsen or any concerns arise. Discharge Disposition: HOME WITH HOME HEALTH SERVICES
[2017-07-19 19:43] LABS: Iron Saturation 7.1 (12.00-45.00)
== END 2017-07-19 14:52 | disposition home health service (06) | DRG 372 ==
LOC: EC 17:49 → 4MS4W 22:29
PROVIDERS: ADMIT Internal Medicine; ATTEND Internal Medicine
DX: A04.72 Enterocolitis due to Clostridium difficile, not specified as recurrent (principal); I13.0 Hypertensive heart and chronic kidney disease with heart failure and stage 1 through stage 4 chronic kidney disease, or unspecified chronic kidney disease; I50.32 Chronic diastolic (congestive) heart failure; N17.9 Acute kidney failure, unspecified; N30.00 Acute cystitis without hematuria; D50.9 Iron deficiency anemia, unspecified; E11.22 Type 2 diabetes mellitus with diabetic chronic kidney disease; E78.5 Hyperlipidemia, unspecified; E86.0 Dehydration; F32.9 Major depressive disorder, single episode, unspecified; I25.10 Atherosclerotic heart disease of native coronary artery without angina pectoris; I48.2 Chronic atrial fibrillation; J45.909 Unspecified asthma, uncomplicated; N18.3 Chronic kidney disease, stage 3 (moderate); M19.90 Unspecified osteoarthritis, unspecified site; Z79.4 Long term (current) use of insulin; Z79.899 Other long term (current) drug therapy; Z88.2 Allergy status to sulfonamides; Z88.1 Allergy status to other antibiotic agents; Z91.040 Latex allergy status; Z95.0 Presence of cardiac pacemaker; Z90.710 Acquired absence of both cervix and uterus; Z87.891 Personal history of nicotine dependence; Z85.828 Personal history of other malignant neoplasm of skin; Z85.42 Personal history of malignant neoplasm of other parts of uterus; Z82.5 Family history of asthma and other chronic lower respiratory diseases; Z82.49 Family history of ischemic heart disease and other diseases of the circulatory system; Z80.9 Family history of malignant neoplasm, unspecified; Z90.49 Acquired absence of other specified parts of digestive tract; Z86.14 Personal history of Methicillin resistant Staphylococcus aureus infection; Z86.79 Personal history of other diseases of the circulatory system
CPT/HCPCS: 36415; 74018; 80053; 81001; 82150; 82728; 83036; 83540; 83550; 83690; 85025; 87045; 87046; 87077; 87086; 87186; 87324; 96360; 99285

== ENCOUNTER 2017-10-05 13:33 | Inpatient (IN) | payer MEDICARE, OTHER ==
[2017-10-05] MEDS ORDERED: IPRATROPIUM-ALBUTEROL 3 ML NEB INHALATION STA ×2 (14:02→16:43)
--- NOTE | 2017-10-05 14:04 | ED ---
General Adult HPI - General Chief complaint: Fall Stated complaint: Fall Time Seen by Provider: 10/05/17 13:47 Source: patient, EMS, RN notes reviewed Mode of arrival: EMS Limitations: no limitations - History of Present Illness Initial comments: Patient 72-year-old female presented to the emergency room today with a chief complaint of a fall. Patient states that she was in her bathroom and next thing she knew she woke up on the floor. She states she like a dizzy or lightheaded. She is not sure how she fell. She does admit to pain to the right upper arm. Admits to some pain in her lower back. Patient denies any other complaints or symptoms currently. She does admit to a history of asthma and states she does do breathing treatments at home. States she does not feel short of breath. Patient denies any recent fever, chills, shortness of breath, chest pain, back pain, abdominal pain, nausea or vomiting, numbness or tingling , dysuria or hematuria, constipation or diarrhea, visual changes, or any other complaints. - Related Data Home Medications Medication Instructions Recorded Confirmed Insulin Detemir [Levemir Flexpen] 56 units SQ AC-SUPPER 01/04/14 07/17/17 Sertraline [Zoloft] 150 mg PO DAILY 01/04/14 07/17/17 Acetaminophen Tab [Tylenol] 500 mg PO Q6HR PRN 04/22/16 07/17/17 Gabapentin [Neurontin] 300 mg PO BID 04/22/16 07/17/17 Dicyclomine [Bentyl] 10 mg PO TID-W/MEALS 03/21/17 07/17/17 Labetalol HCl 100 mg PO Q12H 07/17/17 07/17/17 Potassium Chloride 8 meq PO DAILY 07/17/17 07/17/17 hydrALAZINE HCL 50 mg PO TID 07/17/17 07/17/17 Previous Rx's Medication Instructions Recorded amLODIPine [Norvasc] 10 mg PO DAILY #30 tab 05/04/16 Ferrous Sulfate [Iron (65 MG 325 mg PO BID #60 tab 07/19/17 Elemental)] Furosemide [Lasix] 40 mg PO DAILY #0 07/19/17 metroNIDAZOLE [Flagyl] 500 mg PO TID #42 tab 07/19/17 Allergies Allergy/AdvReac Type Severity Reaction Status Date / Time Latex, Natural Rubber Allergy Itching Verified 07/17/17 18:57 sulfamethoxazole Allergy Rash/Hives Verified 07/17/17 18:57 [From Bactrim] trimethoprim [From Bactrim] Allergy Rash/Hives Verified 07/17/17 18:57 Review of Systems ROS Statement: Those systems with pertinent positive or pertinent negative responses have been documented in the HPI. ROS Other: All systems not noted in ROS Statement are negative. Past Medical History Past Medical History: Atrial Fibrillation, Asthma, Diabetes Mellitus, Hypertension, Osteoarthritis (OA) Additional Past Medical History / Comment(s): Hypertension, diabetes mellitus, hyperlipidemia, paroxysmal defibrillation maintained on long-term articulation with warfarin (no longer taking), bronchial asthma, previous cardiac catheterization from January 2014 showing a mild coronary artery disease involving the LAD, uterine cancer 1994, broken left arm in 2006, skin cancer/ resected History of Any Multi-Drug Resistant Organisms: C-DIFF, MRSA Date of last positivie culture/infection: 07/17/17 CDI06/2011 MRSA MDRO Source:: MRSA THUMB Past Surgical History: Cholecystectomy, Hysterectomy Additional Past Surgical History / Comment(s): eye sx cornea transplant, "blood clot removed from brain" pacer Past Anesthesia/Blood Transfusion Reactions: No Reported Reaction Additional Past Anesthesia/Blood Transfusion Reaction / Comment(s): no previous blood transfusions Past Psychological History: Depression Smoking Status: Never smoker Past Alcohol Use History: None Reported Past Drug Use History: None Reported - Past Family History Mother Family Medical History: Cancer, COPD, Hypertension Father Family Medical History: Cancer, Hypertension General Exam - General Exam Comments Initial Comments: General: The patient is awake and alert, in no distress, and does not appear acutely ill. Eye: Pupils are equal, round and reactive to light, extra-ocular movements are intact. No nystagmus. There is normal conjunctiva bilaterally. No signs of icterus. Ears, nose, mouth and throat: There are moist mucous membranes and no oral lesions. Neck: The neck is supple, there is no tenderness or JVD. Cardiovascular: There is a regular rate and rhythm. No murmur, rub or gallop is appreciated. Respiratory: Decreased lung sounds. respirations are non-labored, breath sounds are equal. No stridor, rales, or rhonchi. Musculoskeletal: Patient does have tenderness over the proximal humerus on palpation. No tenderness to cervical, thoracic or lumbar spine. Strength 5/5. Sensation intact. Pulses equal bilaterally 2+. Neurological: A&O x 3. CN II-XII intact, There are no obvious motor or sensory deficits. Coordination appears grossly intact. Speech is normal. Skin: Skin is warm and dry and no rashes or lesions are noted. Psychiatric: Cooperative, appropriate mood & affect, normal judgment. Limitations: no limitations Course Vital Signs 10/05/17 10/05/17 10/05/17 13:52 14:08 14:18 Temperature 97.4 F L Pulse Rate 60 60 65 Respiratory 18 Rate Blood Pressure 158/70 O2 Sat by Pulse 92 L Oximetry 10/05/17 15:55 Temperature Pulse Rate 60 Respiratory 18 Rate Blood Pressure 178/88 O2 Sat by Pulse 91 L Oximetry EKG Findings - EKG Comments: EKG Findings:: EKG performed at 1414: Shows atrial placed rhythm at 60 beats per minute. WI interval 294. QRS 100. QT/QTc 494/494. No acute changes. Medical Decision Making - Medical Decision Making CT of abdomen and neck are negative for any acute abnormality. Patient's x-ray of the right humerus does show a proximal humerus fracture nondisplaced. Patient placed in an arm sling here in emergency room. Patient's x-ray of the lumbar spine does show most likely an old compression fracture. When discussed with the patient she does admit that this is old she did know about it. Patient chest x-ray shows no acute abnormality. Patient's pulse ox continues to fluctuate here in the emergency room was given a breathing treatment and was doing better. She denied any shortness of breath or difficulty breathing here in the ER. On reexamination patient's pulse ox was in the low 80s on room air. She was placed on 2 L of oxygen and has come up to 95%. Patient admits to history of asthma and stating that she does have pulse ox at home her pulse ox is typically in the 90s. She does not feel any more short of breath than usual. Patient will be admitted to the hospital for hypoxia and sick bowel episode with consult to orthopedics for proximal humerus fracture. - Lab Data Result diagrams: 10/05/17 14:05 10/05/17 14:05 Lab Results 08/04/18 08/04/18 08/04/18 Range/Units 14:05 14:05 14:05 WBC 14.3 H (3.8-10.6) k/uL RBC 5.20 (3.80-5.40) m/uL Hgb 13.0 (11.4-16.0) gm/dL Hct 42.2 (34.0-46.0) % MCV 81.0 (80.0-100.0) fL MCH 24.9 L (25.0-35.0) pg MCHC 30.7 L (31.0-37.0) g/dL RDW 15.2 (11.5-15.5) % Plt Count 189 (150-450) k/uL Neutrophils % 87 % Lymphocytes % 8 % Monocytes % 4 % Eosinophils % 1 % Basophils % 0 % Neutrophils # 12.4 H (1.3-7.7) k/uL Lymphocytes # 1.1 (1.0-4.8) k/uL Monocytes # 0.6 (0-1.0) k/uL Eosinophils # 0.1 (0-0.7) k/uL Basophils # 0.0 (0-0.2) k/uL PT 9.9 (9.0-12.0) sec INR 1.0 (<1.2) APTT 22.6 (22.0-30.0) sec Sodium 140 (137-145) mmol/L Potassium 4.6 (3.5-5.1) mmol/L Chloride 102 (98-107) mmol/L Carbon Dioxide 31 H (22-30) mmol/L Anion Gap 7 mmol/L BUN 35 H (7-17) mg/dL Creatinine 1.60 H (0.52-1.04) mg/dL Est GFR (CKD-EPI)AfAm 37 (>60 ml/min/1.73 sqM) Est GFR (CKD-EPI)NonAf 32 (>60 ml/min/1.73 sqM) Glucose 241 H (74-99) mg/dL Calcium 9.3 (8.4-10.2) mg/dL Total Bilirubin 0.4 (0.2-1.3) mg/dL AST 28 (14-36) U/L ALT 30 (9-52) U/L Alkaline Phosphatase 108 (38-126) U/L Total Protein 6.6 (6.3-8.2) g/dL Albumin 4.0 (3.5-5.0) g/dL Disposition Clinical Impression: Syncope, Fall, Humerus fracture, Hypoxia, COPD (chronic obstructive pulmonary disease) Disposition: ADMITTED IP TO THIS HOSP Condition: Good Is patient prescribed a controlled substance at d/c from ED?: No Referrals: Lisa Willingham MD [Primary Care Provider] - 1-2 days Time of Disposition: 16:55
[2017-10-05 14:31] LABS: Basophils % (A) 0 %; Eosinophils # (A) 0.1 k/uL (0-0.7); Eosinophils % (A) 1 %; HCT 42.2 % (34.0-46.0); Lymphocytes # (A) 1.1 k/uL (1.0-4.8); Lymphocytes % (A) 8 %; MCH 24.9 pg (25.0-35.0); MCHC 30.7 g/dL (31.0-37.0); Mean Platelet Volume 7.2; Monocytes # (A) 0.6 k/uL (0-1.0); Monocytes % (A) 4 %; Neutrophils # (A) 12.4 k/uL (1.3-7.7); Neutrophils % (A) 87 %; Platelet Count 189 k/uL (150-450); RDW 15.2 % (11.5-15.5); WBC 14.3 k/uL (3.8-10.6)
[2017-10-05 14:43] LABS: Partial Thromboplastin Time 22.6 sec (22.0-30.0); Prothrombin Time 9.9 sec (9.0-12.0)
[2017-10-05 14:58] LABS: Calcium 9.3 mg/dL (8.4-10.2); Potassium 4.6 mmol/L (3.5-5.1); Total Bilirubin 0.4 mg/dL (0.2-1.3); Total Protein 6.6 g/dL (6.3-8.2)
--- NOTE | 2017-10-05 15:05 | CT ---
EXAMINATION TYPE: CT brain gabriel orozco con DATE OF EXAM: 10/05/2017 COMPARISON: 04/30/2017 HISTORY: Fall. CT DLP: 1684 mGycm, Automated exposure control for dose reduction was used. CONTRAST: Patient injected with 0 mL of Isovue 300. CT of the brain is performed utilizing 3 mm thick sections through the posterior fossa and 3 mm thick sections through the remaining calvarium. Study is performed within 24 hours of arrival to the hospital. No abnormal hyperdensity is present to suggest an acute intracranial hemorrhage. No mass lesion is evident. No acute infarcts are evident. 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 No mass effect is evident. This was present previously. Ventricles and sulci are appropriate for the patient age. Paranasal sinuses and mastoid air cells within the [place] are clear. Hyperostosis frontalis internus is present. Old craniotomy on the right parietal-occipital region is evident. IMPRESSIONS: 1. Old postsurgical changes and/or infarct right parietal-occipital region, unchanged. 2. No acute intracranial process. CT cervical spine. COMPARISON: None CT of the cervical spine is performed in the axial plane at 2 mm thick sections. Reconstructed image s in the coronal, and sagittal plane are reviewed on the computer. No acute fractures are evident. Vertebral body alignment is normal. There is some disc space narrowing C5-6 C6-7. Vertebral body heights are preserved. No spinal canal stenosis is evident. Mild foraminal narrowing from uncovertebral joint hypertrophy is present C5-6 C6-7. IMPRESSIONS: 1. Degenerative changes. 2. No acute osseous abnormality is evident.
[2017-10-05] MEDS ORDERED: MORPHINE SULFATE 2 MG/ML SYRINGE IVP STA (15:51)
--- NOTE | 2017-10-05 16:11 | XR ---
EXAMINATION TYPE: XR chest 2V DATE OF EXAM: 10/05/2017 COMPARISON: 03/21/2017 INDICATION: Fall, pain TECHNIQUE: Frontal and lateral views of the chest are obtained. FINDINGS: The heart size is normal. The pulmonary vasculature is normal. The lungs are clear. Pacemaker overlies left chest. Left shoulder appears stable. Please see right h umeral dictation. IMPRESSION: 1. No acute pulmonary process.
--- NOTE | 2017-10-05 16:12 | XR ---
EXAMINATION TYPE: XR humerus RT DATE OF EXAM: 10/05/2017 COMPARISON: Chest x-ray HISTORY: Fall, pain TECHNIQUE: 2 view right humerus FINDINGS: There is a transverse fracture of the proximal metaphyseal right humerus. Humeral head nicolle culates with the glenoid. Acromioclavicular junction is mild hypertrophy. No additional areas suspici ous for fracture is evident. Anterior fat pad is normal. No elevation of posterior fat pad is evident . Radius aligns normally with the humerus. IMPRESSION: 1. Fracture of the proximal diaphyseal right humerus.
--- NOTE | 2017-10-05 16:20 | XR ---
EXAMINATION TYPE: XR lumbar spine 2 or 3V DATE OF EXAM: 10/05/2017 COMPARISON: 03/22/2014 HISTORY: Pain TECHNIQUE: Three-view lumbar spine FINDINGS: There 5 lumbar-type vertebral bodies. Pedicles are intact. There is a superior endplate com pression deformity of L1 3 with anterior spurring. This is an interval change from 2014. Loss of disc height is present L2-L3. Disc space narrowing is present L4-5 and posteriorly L3-4 and L5-S1 IMPRESSION: 1. Compression deformity of L3 of indeterminate age. Approximately 25% anterior vertebral body heigh t loss of L3. Comparison with abdomen film 07/17/2017 suggests this may have been present previously. 2. Degenerative disc changes through the mid and lower lumbar spine
[2017-10-05] MEDS ORDERED: IPRATROPIUM-ALBUTEROL 3 ML NEB INHALATION PRN (16:55)
[2017-10-05 17:26] LABS: Creatine Kinase 74 U/L (30-135)
[2017-10-05 17:35] LABS: Creatine Kinase MB 0.6 ng/mL (0.0-2.4); Troponin I <0.012 ng/mL (0.000-0.034)
[2017-10-05] MEDS ORDERED: INSULIN DETEMIR 100 UNIT/ML 10 ML VIAL SQ ONE (21:00)
[2017-10-05 21:07] LABS: Glucose,Whole Blood 230 mg/dL (75-99)
[2017-10-05] MEDS: methylPREDNISolone SOD SUCCI 125 MG/2 ML VIAL IV SCH ×2 (21:07→23:23)
[2017-10-05] MEDS: GABAPENTIN 300 MG CAP PO SCH (21:08)
[2017-10-05] MEDS: hydrALAZINE HCL 50 MG TAB PO SCH (21:08)
[2017-10-05 21:09] LABS: Creatine Kinase 128 U/L (30-135)
[2017-10-05] MEDS: traMADol 50 MG TAB PO PRN (21:09)
[2017-10-05 21:23] LABS: Creatine Kinase MB 1.2 ng/mL (0.0-2.4); Troponin I <0.012 ng/mL (0.000-0.034)
[2017-10-05] MEDS: INSULIN ASPART 100 UNIT/ML 1 ML 10 ML VIAL SQ SCH (21:52)
[2017-10-06] MEDS: traMADol 50 MG TAB PO PRN (03:29)
[2017-10-06 06:13] LABS: Glucose,Whole Blood 390 mg/dL (75-99)
[2017-10-06] MEDS: INSULIN ASPART 100 UNIT/ML 1 ML 10 ML VIAL SQ SCH ×4 (06:39→22:09)
[2017-10-06] MEDS: methylPREDNISolone SOD SUCCI 125 MG/2 ML VIAL IV SCH (06:40)
[2017-10-06 06:58] LABS: Cholesterol 170 mg/dL (<200); HDL Cholesterol 44 mg/dL (40-60); LDL Cholesterol,Calculated 81 mg/dL (0-99); Triglycerides 227 mg/dL (<150)
[2017-10-06] MEDS: IPRATROPIUM-ALBUTEROL 3 ML NEB INHALATION SCH ×4 (07:34→21:21)
[2017-10-06 08:36] LABS: Basophils % (A) 0 %; Eosinophils % (A) 0 %; HCT 40.2 % (34.0-46.0); HGB 12.1 gm/dL (11.4-16.0); Hypochromasia Slight; Lymphocytes # (A) 0.8 k/uL (1.0-4.8); Lymphocytes % (A) 9 %; MCH 25.2 pg (25.0-35.0); MCHC 30.2 g/dL (31.0-37.0); MCV 83.4 fL (80.0-100.0); Mean Platelet Volume 7.7; Monocytes # (A) 0.1 k/uL (0-1.0); Monocytes % (A) 2 %; Neutrophils # (A) 7.8 k/uL (1.3-7.7); Neutrophils % (A) 89 %; Platelet Count 167 k/uL (150-450); RBC 4.82 m/uL (3.80-5.40); RDW 15.2 % (11.5-15.5); WBC 8.8 k/uL (3.8-10.6)
[2017-10-06 08:48] LABS: Albumin 3.8 g/dL (3.5-5.0); Calcium 9.4 mg/dL (8.4-10.2); Potassium 5.2 mmol/L (3.5-5.1); Total Bilirubin 0.5 mg/dL (0.2-1.3); Total Protein 6.3 g/dL (6.3-8.2)
--- NOTE | 2017-10-06 09:28 | P.CNOR ---
History of Present Illness - HPI Consult date: 10/06/17 History of present illness: This is a 72-year-old female who is admitted for syncope, COPD and hypoxia. Orthopedics was consulted due to right proximal humerus fracture. Patient states that she fell on 10/05/2017 and may have passed out. Patient reports pain to the right shoulder. Patient denies any head or neck pain. Patient denies any numbness, weakness or tingling. Review of Systems See HPI. Past Medical History Past Medical History: Atrial Fibrillation, Asthma, Diabetes Mellitus, Hypertension, Osteoarthritis (OA) Additional Past Medical History / Comment(s): Hypertension, diabetes mellitus, hyperlipidemia, paroxysmal defibrillation maintained on long-term articulation with warfarin (no longer taking), bronchial asthma, previous cardiac catheterization from January 2014 showing a mild coronary artery disease involving the LAD, uterine cancer 1994, broken left arm in 2006, skin cancer/ resected History of Any Multi-Drug Resistant Organisms: C-DIFF, MRSA Year Discovered:: 07/17/17 CDI06/2011 MRSA MDRO Source:: MRSA THUMB Past Surgical History: Cholecystectomy, Hysterectomy Additional Past Surgical History / Comment(s): eye sx cornea transplant, "blood clot removed from brain", pacemaker 2016 Past Anesthesia/Blood Transfusion Reactions: No Reported Reaction Additional Past Anesthesia/Blood Transfusion Reaction / Comm: no previous blood transfusions Past Psychological History: Depression Smoking Status: Never smoker Past Alcohol Use History: None Reported Past Drug Use History: None Reported - Past Family History Mother Family Medical History: Cancer, COPD, Hypertension Father Family Medical History: Cancer, Hypertension Medications and Allergies Home Medications Medication Instructions Recorded Confirmed Type Insulin Detemir [Levemir Flexpen] 56 units SQ AC-SUPPER 01/04/14 10/05/17 History Sertraline [Zoloft] 150 mg PO DAILY 01/04/14 10/05/17 History Acetaminophen Tab [Tylenol] 500 mg PO Q6HR PRN 04/22/16 10/05/17 History Gabapentin [Neurontin] 300 mg PO BID 04/22/16 10/05/17 History amLODIPine [Norvasc] 10 mg PO DAILY #30 tab 05/04/16 10/05/17 Rx Dicyclomine [Bentyl] 10 mg PO TID-W/MEALS 03/21/17 10/05/17 History Labetalol HCl 100 mg PO Q12H 07/17/17 10/05/17 History Potassium Chloride 8 meq PO DAILY 07/17/17 10/05/17 History hydrALAZINE HCL 50 mg PO TID 07/17/17 10/05/17 History Ferrous Sulfate [Iron (65 MG 325 mg PO BID #60 tab 07/19/17 10/05/17 Rx Elemental)] Furosemide [Lasix] 40 mg PO DAILY #0 07/19/17 10/05/17 Rx Ipratropium-Albuterol Nebulize 3 ml INHALATION RT-QID 10/05/17 10/05/17 History [Duoneb 0.5 mg-3 mg/3 ml Soln] Allergies Allergy/AdvReac Type Severity Reaction Status Date / Time Latex, Natural Rubber Allergy Itching Verified 10/05/17 17:30 sulfamethoxazole Allergy Rash/Hives Verified 10/05/17 17:30 [From Bactrim] trimethoprim [From Bactrim] Allergy Rash/Hives Verified 10/05/17 17:30 Physical Examination On exam patient is alert and oriented 3 and lying in bed in no acute distress. There is swelling and ecchymosis over the right shoulder and right upper arm. There is tenderness to palpation over the right shoulder. Patient has good range of motion of the right elbow, wrist and hand. Sensation intact. Radial pulse 2+. Capillary refill is normal at less than 2 seconds. Neurovascular status and circulatory status are intact. Results X-rays of the right shoulder show a nondisplaced proximal humerus fracture. - Labs Labs: Abnormal Lab Results - Last 24 Hours (Table) 10/05/17 10/05/17 10/05/17 Range/Units 14:05 14:05 20:51 WBC 14.3 H (3.8-10.6) k/uL MCH 24.9 L (25.0-35.0) pg MCHC 30.7 L (31.0-37.0) g/dL Neutrophils # 12.4 H (1.3-7.7) k/uL Lymphocytes # (1.0-4.8) k/uL Potassium (3.5-5.1) mmol/L Carbon Dioxide 31 H (22-30) mmol/L BUN 35 H (7-17) mg/dL Creatinine 1.60 H (0.52-1.04) mg/dL Glucose 241 H (74-99) mg/dL POC Glucose (mg/dL) 230 H (75-99) mg/dL Triglycerides (<150) mg/dL 10/06/17 10/06/17 10/06/17 Range/Units 05:56 05:56 05:56 WBC (3.8-10.6) k/uL MCH (25.0-35.0) pg MCHC 30.2 L (31.0-37.0) g/dL Neutrophils # 7.8 H (1.3-7.7) k/uL Lymphocytes # 0.8 L (1.0-4.8) k/uL Potassium 5.2 H (3.5-5.1) mmol/L Carbon Dioxide (22-30) mmol/L BUN 40 H (7-17) mg/dL Creatinine 1.95 H (0.52-1.04) mg/dL Glucose 372 H (74-99) mg/dL POC Glucose (mg/dL) (75-99) mg/dL Triglycerides 227 H (<150) mg/dL 10/06/17 Range/Units 06:12 WBC (3.8-10.6) k/uL MCH (25.0-35.0) pg MCHC (31.0-37.0) g/dL Neutrophils # (1.3-7.7) k/uL Lymphocytes # (1.0-4.8) k/uL Potassium (3.5-5.1) mmol/L Carbon Dioxide (22-30) mmol/L BUN (7-17) mg/dL Creatinine (0.52-1.04) mg/dL Glucose (74-99) mg/dL POC Glucose (mg/dL) 390 H (75-99) mg/dL Triglycerides (<150) mg/dL H & H 10/05/17 10/06/17 Range/Units 14:05 05:56 Hgb 13.0 12.1 (11.4-16.0) gm/dL Hct 42.2 40.2 (34.0-46.0) % Coagulation 10/05/17 Range/Units 14:05 INR 1.0 (<1.2) Result Diagrams: 10/06/17 05:56 10/06/17 05:56 Assessment and Plan (1) Fracture of proximal end of right humerus Current Visit: Yes Status: Acute Code(s): S42.201A - UNSP FRACTURE OF UPPER END OF RIGHT HUMERUS, INIT SNOMED Code(s): 982501606 (2) Fall Current Visit: Yes Status: Acute Code(s): W19.XXXA - UNSPECIFIED FALL, INITIAL ENCOUNTER SNOMED Code(s): 5437392 Plan: 1. X-rays are reviewed and show a nondisplaced right proximal humerus fracture. 2. Maintain sling to the right upper extremity when out of bed. 3. Rest and ice the right shoulder. 4. No surgical intervention planned. Will continue to follow the patient closely.
[2017-10-06] MEDS: GABAPENTIN 300 MG CAP PO SCH ×2 (09:33→22:10)
[2017-10-06] MEDS: hydrALAZINE HCL 50 MG TAB PO SCH ×3 (09:33→22:10)
[2017-10-06] MEDS ORDERED: SENNOSIDES 8.6 MG TAB PO PRN (09:57)
[2017-10-06] MEDS ORDERED: POLYETHYLENE GLYCOL 3350 17 GM POWD.PACK PO PRN (09:57)
[2017-10-06] MEDS: HYDROcodone/APAP 5-325MG 1 EACH TAB PO PRN ×3 (11:21→22:10)
[2017-10-06] MEDS: LABETALOL 100 MG TAB PO SCH ×2 (11:22→22:10)
[2017-10-06 11:54] LABS: Glucose,Whole Blood 336 mg/dL (75-99)
--- NOTE | 2017-10-06 11:54 | P.CNPUL ---
History of Present Illness Consult date: 10/06/17 Reason for consult: COPD History of present illness: 72-year-old female patient who came into the emergency department yesterday after she had a fall. It is not clear whether the patient had a bout of syncope or suggestive for. It seems that the patient felt a bit dizzy and lightheaded and then she dropped in the bathroom floor. She was brought in with some pain in her right upper extremity and the patient was found to have a right humeral fracture and orthopedic consultation has been obtained and the patient will have only conservative management and there will be no surgical interventions. The patient is not having any significant shortness of breath. No chest pain. No cough or sputum production. No angina. She was recently hospitalized for diarrhea and C. diff colitis and anxiety is also subsided and there is no signs of intravascular volume depletion or dehydration. She has chronic renal failure and her creatinine currently is at 1.6. The rest of the blood work and electrodes are all within normal limits. EKG showing a paced rhythm at the rate of 60. 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 No acute process seen. No significant ostial abnormalities and computed tomography scan of the cervical spine shows no evidence of any fractures. X-ray of the lumbar spine showed compression deformity of the level of L3 along with 25% anterior vertebral body height loss at the level of L3. Degenerative disc disease changes involving the mid in the lower lumbar spine. Review of Systems All systems: negative Constitutional: Denies chills, Denies fever Eyes: denies blurred vision, denies pain Ears, nose, mouth and throat: Denies headache, Denies sore throat Cardiovascular: Denies chest pain, Denies shortness of breath Respiratory: Denies cough Gastrointestinal: No nausea vomiting or diarrhea at this point Genitourinary: Denies dysuria, Denies hematuria Musculoskeletal: Denies myalgias, right upper extremity pain related to humeral fracture. Integumentary: Reports dryness, Denies pruritus, Denies rash Neurological: Denies numbness, Denies weakness, fall versus syncope under investigation Psychiatric: Denies anxiety, Denies depression Endocrine: Denies fatigue, Denies weight change Past Medical History Past Medical History: Atrial Fibrillation, Asthma, Diabetes Mellitus, Hypertension, Osteoarthritis (OA) Additional Past Medical History / Comment(s): Hypertension, diabetes mellitus, hyperlipidemia, paroxysmal defibrillation maintained on long-term articulation with warfarin (no longer taking), bronchial asthma, previous cardiac catheterization from January 2014 showing a mild coronary artery disease involving the LAD, uterine cancer 1994, broken left arm in 2006, skin cancer/ resected , history of C. diff colitis, chronic renal failure, history of intracranial hemorrhage status post surgery with blood clot removal, chronic atrial fibrillation, CHF with diastolic dysfunction and ejection fraction of 55% , hypertension, History of Any Multi-Drug Resistant Organisms: C-DIFF, MRSA Date of last positivie culture/infection: 07/17/17 CDI06/2011 MRSA MDRO Source:: MRSA THUMB Past Surgical History: Cholecystectomy, Hysterectomy Additional Past Surgical History / Comment(s): eye sx cornea transplant, "blood clot removed from brain", pacemaker 2016 Past Anesthesia/Blood Transfusion Reactions: No Reported Reaction Additional Past Anesthesia/Blood Transfusion Reaction / Comment(s): no previous blood transfusions Past Psychological History: Depression Smoking Status: Never smoker Past Alcohol Use History: None Reported Past Drug Use History: None Reported - Past Family History Mother Family Medical History: Cancer, COPD, Hypertension Father Family Medical History: Cancer, Hypertension Medications and Allergies Home Medications Medication Instructions Recorded Confirmed Type Insulin Detemir [Levemir Flexpen] 56 units SQ AC-SUPPER 01/04/14 10/05/17 History Sertraline [Zoloft] 150 mg PO DAILY 01/04/14 10/05/17 History Acetaminophen Tab [Tylenol] 500 mg PO Q6HR PRN 04/22/16 10/05/17 History Gabapentin [Neurontin] 300 mg PO BID 04/22/16 10/05/17 History amLODIPine [Norvasc] 10 mg PO DAILY #30 tab 05/04/16 10/05/17 Rx Dicyclomine [Bentyl] 10 mg PO TID-W/MEALS 03/21/17 10/05/17 History Labetalol HCl 100 mg PO Q12H 07/17/17 10/05/17 History Potassium Chloride 8 meq PO DAILY 07/17/17 10/05/17 History hydrALAZINE HCL 50 mg PO TID 07/17/17 10/05/17 History Ferrous Sulfate [Iron (65 MG 325 mg PO BID #60 tab 07/19/17 10/05/17 Rx Elemental)] Furosemide [Lasix] 40 mg PO DAILY #0 07/19/17 10/05/17 Rx Ipratropium-Albuterol Nebulize 3 ml INHALATION RT-QID 10/05/17 10/05/17 History [Duoneb 0.5 mg-3 mg/3 ml Soln] Allergies Allergy/AdvReac Type Severity Reaction Status Date / Time Latex, Natural Rubber Allergy Itching Verified 10/05/17 17:30 sulfamethoxazole Allergy Rash/Hives Verified 10/05/17 17:30 [From Bactrim] trimethoprim [From Bactrim] Allergy Rash/Hives Verified 10/05/17 17:30 Physical Exam Vitals: Vital Signs Temp Pulse Pulse Resp BP BP Pulse Ox 10/06/17 11:05 60 10/06/17 08:00 97.0 F L 60 18 147/60 94 L 10/06/17 07:46 64 10/06/17 07:35 56 L 10/06/17 03:49 60 19 10/06/17 03:48 98.4 F 60 19 177/73 97 10/05/17 23:51 60 18 10/05/17 23:50 98.5 F 60 18 191/77 95 10/05/17 20:00 63 20 10/05/17 19:52 63 20 157/67 91 L 10/05/17 18:21 98 F 60 16 167/78 94 L 10/05/17 18:17 97.9 F 63 20 157/67 91 L 10/05/17 17:00 60 16 10/05/17 16:52 60 16 10/05/17 15:55 60 18 178/88 91 L 10/05/17 14:18 65 10/05/17 14:08 60 10/05/17 13:52 97.4 F L 60 18 158/70 92 L Intake and Output 10/05/17 10/06/17 10/06/17 22:59 06:59 14:59 Intake Total 300 Output Total 300 Balance 300 -300 Intake: Oral 300 Output: Urine 300 Other: Voiding Method Bedpan Bedpan # Voids 1 Weight 90.45 kg 79.9 kg - Constitutional General appearance: no acute distress - EENT Eyes: PERRLA, dentition normal ENT: NA/AT Ears: bilateral: normal - Neck Neck: no lymphadenopathy, normal ROM Carotids: bilateral: upstroke normal Thyroid: bilateral: normal size - Respiratory Respiratory: bilateral: CTA - Cardiovascular Rhythm: irregularly irregular Heart sounds: normal: S1, S2 ankle Peripheral Edema: bilateral: Trace dorsalis pedis Peripheral Pulses: bilateral: Normal radial pulse Peripheral Pulses: bilateral: Normal - Gastrointestinal General gastrointestinal: no organomegaly, soft, no tenderness - Integumentary Patient has healed abrasions on her left anterior jimenez, from scratching Integumentary: normal, rash - Neurologic Neurologic: CNII-XII intact - Musculoskeletal Musculoskeletal: Limitation range of motion of the right upper extremity secondary to a humeral fracture. - Psychiatric Psychiatric: A&O x's 3, appropriate affect, intact judgment & insight Results - Laboratory Findings CBC and BMP: 10/06/17 05:56 10/06/17 05:56 PT/INR, D-dimer PT 9.9 sec (9.0-12.0) 10/05/17 14:05 INR 1.0 (<1.2) 10/05/17 14:05 Abnormal lab findings: Abnormal Labs 10/05/17 10/05/17 10/05/17 14:05 14:05 20:51 WBC 14.3 H MCH 24.9 L MCHC 30.7 L Neutrophils # 12.4 H Lymphocytes # Potassium Carbon Dioxide 31 H BUN 35 H Creatinine 1.60 H Glucose 241 H POC Glucose (mg/dL) 230 H Triglycerides 10/06/17 10/06/17 10/06/17 05:56 05:56 05:56 WBC MCH MCHC 30.2 L Neutrophils # 7.8 H Lymphocytes # 0.8 L Potassium 5.2 H Carbon Dioxide BUN 40 H Creatinine 1.95 H Glucose 372 H POC Glucose (mg/dL) Triglycerides 227 H 10/06/17 06:12 WBC MCH MCHC Neutrophils # Lymphocytes # Potassium Carbon Dioxide BUN Creatinine Glucose POC Glucose (mg/dL) 390 H Triglycerides Assessment and Plan Plan: Assessment 1 fall versus syncope. 2 fracture of the proximal end of the right humerus. 3. Chronic kidney disease 4. Recent history of intracranial hemorrhage in March 2017, status post surgery with blood clot removal 5. Recent hospitalization for C. diff colitis, recovered 6. History of chronic diastolic congestive heart failure with an EF of 55% 7. Chronic atrial fibrillation, currently not on any anticoagulation due to a recent history of intracranial bleeding 8. Permanent pacemaker 9. Diabetes mellitus type 2 10. History of bronchial asthma, unspecified, without any evidence of current exacerbation 11. History of skin cancer on the face, with subsequent removal 12. Hypertension Plan Also to follow-up on the right humeral fracture. Resume outpatient medications. Monitor blood work and electrolytes. Monitor cardiac rhythm. Overall pulmonary status is stable. We'll continue to follow.
--- NOTE | 2017-10-06 12:01 | P.HPIM ---
History of Present Illness 72-year-old present female came in with the fall couple times. Appears to have generalized weakness. Patient denied any clear-cut syncope but patient has been dizzy and lightheaded. Fell on the bathroom floor found to have fracture of the right humerus. Arthritic surgery evaluated the patient conservative measures at this time. Patient is comparing of pain patient is on Tylenol and tramadol will add low-dose of [place]. Patient had a creatinine of 1. 6F91.9. Patient baseline creatinine about any records 0.8. Patient has normal ejection fraction. Patient the past was treated for CHF exacerbation patient does have history of COPD. Patient is not in volume overload at this time. It's not clear whether patient actually ever got admitted for CHF exacerbation. As of now patient appears to be volume depleted discontinue diuretic therapy patient was started on gentle hydration. I'll also obtain echocardiogram. Patient does have history of COPD without any acute exacerbation IV steroids will be discontinued patient was started on inhaled steroids. Review of Systems REVIEW OF SYSTEMS: CONSTITUTIONAL: No fever, no malaise, no fatigue. HEENT: No recent visual problems or hearing problems. Denied any sore throat. CARDIOVASCULAR: No chest pain, orthopnea, PND, no palpitations, no syncope. PULMONARY: No shortness of breath, no cough, no hemoptysis. GASTROINTESTINAL: No diarrhea, no nausea, no vomiting, no abdominal pain. Normoactive bowel sounds. NEUROLOGICAL: No headaches, no weakness, no numbness. HEMATOLOGICAL: Denies any bleeding or petechiae. GENITOURINARY: Denies any burning micturition, frequency, or urgency. MUSCULOSKELETAL/RHEUMATOLOGICAL: As mentioned in HPI ENDOCRINE: Denies any polyuria or polydipsia. The rest of the 14-point review of systems is negative. Past Medical History Past Medical History: Atrial Fibrillation, Asthma, Diabetes Mellitus, Hypertension, Osteoarthritis (OA) Additional Past Medical History / Comment(s): Hypertension, diabetes mellitus, hyperlipidemia, paroxysmal defibrillation maintained on long-term articulation with warfarin (no longer taking), bronchial asthma, previous cardiac catheterization from January 2014 showing a mild coronary artery disease involving the LAD, uterine cancer 1994, broken left arm in 2006, skin cancer/ resected , history of C. diff colitis, chronic renal failure, history of intracranial hemorrhage status post surgery with blood clot removal, chronic atrial fibrillation, CHF with diastolic dysfunction and ejection fraction of 55% , hypertension, History of Any Multi-Drug Resistant Organisms: C-DIFF, MRSA Date of last positivie culture/infection: 07/17/17 CDI06/2011 MRSA MDRO Source:: MRSA THUMB Past Surgical History: Cholecystectomy, Hysterectomy Additional Past Surgical History / Comment(s): eye sx cornea transplant, "blood clot removed from brain", pacemaker 2016 Past Anesthesia/Blood Transfusion Reactions: No Reported Reaction Additional Past Anesthesia/Blood Transfusion Reaction / Comment(s): no previous blood transfusions Past Psychological History: Depression Smoking Status: Never smoker Past Alcohol Use History: None Reported Past Drug Use History: None Reported - Past Family History Mother Family Medical History: Cancer, COPD, Hypertension Father Family Medical History: Cancer, Hypertension Medications and Allergies Home Medications Medication Instructions Recorded Confirmed Type Insulin Detemir [Levemir Flexpen] 56 units SQ AC-SUPPER 01/04/14 10/05/17 History Sertraline [Zoloft] 150 mg PO DAILY 01/04/14 10/05/17 History Acetaminophen Tab [Tylenol] 500 mg PO Q6HR PRN 04/22/16 10/05/17 History Gabapentin [Neurontin] 300 mg PO BID 04/22/16 10/05/17 History amLODIPine [Norvasc] 10 mg PO DAILY #30 tab 05/04/16 10/05/17 Rx Dicyclomine [Bentyl] 10 mg PO TID-W/MEALS 03/21/17 10/05/17 History Labetalol HCl 100 mg PO Q12H 07/17/17 10/05/17 History Potassium Chloride 8 meq PO DAILY 07/17/17 10/05/17 History hydrALAZINE HCL 50 mg PO TID 07/17/17 10/05/17 History Ferrous Sulfate [Iron (65 MG 325 mg PO BID #60 tab 07/19/17 10/05/17 Rx Elemental)] Furosemide [Lasix] 40 mg PO DAILY #0 07/19/17 10/05/17 Rx Ipratropium-Albuterol Nebulize 3 ml INHALATION RT-QID 10/05/17 10/05/17 History [Duoneb 0.5 mg-3 mg/3 ml Soln] Allergies Allergy/AdvReac Type Severity Reaction Status Date / Time Latex, Natural Rubber Allergy Itching Verified 08/04/18 17:30 sulfamethoxazole Allergy Rash/Hives Verified 10/05/17 17:30 [From Bactrim] trimethoprim [From Bactrim] Allergy Rash/Hives Verified 10/05/17 17:30 Physical Exam Vitals: Vital Signs Temp Pulse Pulse Resp BP BP Pulse Ox 10/06/17 11:05 60 10/06/17 08:00 97.0 F L 60 18 147/60 94 L 10/06/17 07:46 64 10/06/17 07:35 56 L 10/06/17 03:49 60 19 10/06/17 03:48 98.4 F 60 19 177/73 97 10/05/17 23:51 60 18 10/05/17 23:50 98.5 F 60 18 191/77 95 10/05/17 20:00 63 20 10/05/17 19:52 63 20 157/67 91 L 10/05/17 18:21 98 F 60 16 167/78 94 L 10/05/17 18:17 97.9 F 63 20 157/67 91 L 10/05/17 17:00 60 16 10/05/17 16:52 60 16 10/05/17 15:55 60 18 178/88 91 L 10/05/17 14:18 65 10/05/17 14:08 60 10/05/17 13:52 97.4 F L 60 18 158/70 92 L Intake and Output 10/05/17 10/06/17 10/06/17 22:59 06:59 14:59 Intake Total 300 60 Output Total 300 Balance 300 -300 60 Intake: Oral 300 60 Output: Urine 300 Other: Voiding Method Bedpan Bedpan # Voids 1 Weight 90.45 kg 79.9 kg PHYSICAL EXAMINATION: GENERAL: The patient is alert and oriented x3, not in any acute distress. Well developed, well nourished. HEENT: Pupils are round and equally reacting to light. EOMI. No scleral icterus. No conjunctival pallor. Normocephalic, atraumatic. No pharyngeal erythema. No thyromegaly. CARDIOVASCULAR: S1 and S2 present. No murmurs, rubs, or gallops. PULMONARY: Chest is clear to auscultation, no wheezing or crackles. ABDOMEN: Soft, nontender, nondistended, normoactive bowel sounds. No palpable organomegaly. MUSCULOSKELETAL: Deferred orthotic surgery EXTREMITIES: No cyanosis, clubbing, or pedal edema. NEUROLOGICAL: Gross neurological examination did not reveal any focal deficits. SKIN: No rashes. Results CBC & Chem 7: 10/06/17 05:56 10/06/17 05:56 Labs: Abnormal Lab Results - Last 24 Hours (Table) 10/05/17 10/05/17 10/05/17 Range/Units 14:05 14:05 20:51 WBC 14.3 H (3.8-10.6) k/uL MCH 24.9 L (25.0-35.0) pg MCHC 30.7 L (31.0-37.0) g/dL Neutrophils # 12.4 H (1.3-7.7) k/uL Lymphocytes # (1.0-4.8) k/uL Potassium (3.5-5.1) mmol/L Carbon Dioxide 31 H (22-30) mmol/L BUN 35 H (7-17) mg/dL Creatinine 1.60 H (0.52-1.04) mg/dL Glucose 241 H (74-99) mg/dL POC Glucose (mg/dL) 230 H (75-99) mg/dL Triglycerides (<150) mg/dL 10/06/17 10/06/17 10/06/17 Range/Units 05:56 05:56 05:56 WBC (3.8-10.6) k/uL MCH (25.0-35.0) pg MCHC 30.2 L (31.0-37.0) g/dL Neutrophils # 7.8 H (1.3-7.7) k/uL Lymphocytes # 0.8 L (1.0-4.8) k/uL Potassium 5.2 H (3.5-5.1) mmol/L Carbon Dioxide (22-30) mmol/L BUN 40 H (7-17) mg/dL Creatinine 1.95 H (0.52-1.04) mg/dL Glucose 372 H (74-99) mg/dL POC Glucose (mg/dL) (75-99) mg/dL Triglycerides 227 H (<150) mg/dL 10/06/17 10/06/17 Range/Units 06:12 11:38 WBC (3.8-10.6) k/uL MCH (25.0-35.0) pg MCHC (31.0-37.0) g/dL Neutrophils # (1.3-7.7) k/uL Lymphocytes # (1.0-4.8) k/uL Potassium (3.5-5.1) mmol/L Carbon Dioxide (22-30) mmol/L BUN (7-17) mg/dL Creatinine (0.52-1.04) mg/dL Glucose (74-99) mg/dL POC Glucose (mg/dL) 390 H 336 H (75-99) mg/dL Triglycerides (<150) mg/dL Thrombosis Risk Factor Assmnt - Choose All That Apply Any of the Below Risk Factors Present?: Yes Each Factor Represents 1 point: Medical pt on bed rest, Obesity (BMI >25) Other Risk Factors: Yes Each Risk Factor Represents 2 Points: Age 61-74 years Other congenital or acquired thrombophilia - If yes, enter type in comment: No Thrombosis Risk Factor Assessment Total Risk Factor Score: 4 Thrombosis Risk Factor Assessment Level: Moderate Risk Assessment and Plan Plan: -Fracture of the right humerus: Conservative measures with a sling and further management as per orthopedic surgery. Pain management as mentioned above. -Multiple falls: Generalized weakness patient will need physical therapy and possibly placement into a rehabilitation. -Lightheadedness: Secondary to intravascular depletion discontinue Lasix. Start on IV fluids repeat the basic metabolic profile tomorrow -Acute renal failure: Secondary to excessive diuretic therapy which is being held IV fluids and repeat the kidney function testing tomorrow -Chronic intermittent asthma without any acute exacerbation systemic steroids were discontinued patient was started on inhaled steroids and inhalational treatments. -Possible chronic kidney disease stage II secondary to diabetic nephropathy -Congestive heart failure history chronic diastolic dysfunction patient is hypovolemic -Chronic atrial fibrillation not on any anticoagulation due to recent history of intracranial bleed patient is presently rate controlled -Type 2 diabetes mellitus: Continue with present regimen along with sliding scale depending on her insulin needs, her medication regimen will be titrated -Hypertension
[2017-10-06 17:26] LABS: Glucose,Whole Blood 466 mg/dL (75-99)
[2017-10-06 20:21] LABS: Glucose,Whole Blood 384 mg/dL (75-99)
[2017-10-06] MEDS: SYMBICORT 160-4.5 MCG INHALER INHALATION SCH (21:21)
[2017-10-06] MEDS: INSULIN DETEMIR 100 UNIT/ML 10 ML VIAL SQ SCH (22:09)
[2017-10-07 07:14] LABS: Glucose,Whole Blood 226 mg/dL (75-99)
[2017-10-07] MEDS: IPRATROPIUM-ALBUTEROL 3 ML NEB INHALATION SCH ×4 (07:14→19:04)
[2017-10-07] MEDS: SYMBICORT 160-4.5 MCG INHALER INHALATION SCH ×2 (07:14→19:06)
[2017-10-07] MEDS: GABAPENTIN 300 MG CAP PO SCH ×2 (07:32→20:50)
[2017-10-07] MEDS: INSULIN ASPART 100 UNIT/ML 1 ML 10 ML VIAL SQ SCH ×4 (07:32→20:49)
[2017-10-07] MEDS: amLODIPine 10 MG TAB PO SCH (07:32)
[2017-10-07] MEDS: hydrALAZINE HCL 50 MG TAB PO SCH ×3 (07:32→20:50)
[2017-10-07] MEDS: SERTRALINE 50 MG TAB PO SCH (07:32)
[2017-10-07] MEDS: LABETALOL 100 MG TAB PO SCH ×2 (07:34→20:50)
[2017-10-07] MEDS: HYDROcodone/APAP 5-325MG 1 EACH TAB PO PRN ×2 (07:38→12:27)
--- NOTE | 2017-10-07 08:33 | P.PN ---
Subjective Progress Note Date: 10/07/17 This is a 72-year-old female who is being followed by orthopedics for right proximal humerus fracture. Patient does complain of pain to the right shoulder today, but states that the sling has helped. Patient denies any new complaints or symptoms today. Patient denies any fever/chills, numbness, weakness, tingling , abdominal pain, shortness of breath or chest pain. Objective - Vital Signs Vital signs: Vital Signs Temp 97.9 F 10/07/17 07:38 Pulse 62 10/07/17 07:38 Resp 16 10/07/17 07:38 BP 183/72 10/07/17 07:38 Pulse Ox 93 L 10/07/17 07:38 Intake & Output 10/06/17 10/07/17 10/07/17 18:59 06:59 18:59 Intake Total 300 Balance 300 Intake: Oral 300 Other: Voiding Method Bedpan # Voids 2 - Exam On exam patient is alert and oriented 3 and lying comfortably in bed in no acute distress. There is swelling over the right shoulder. Patient has full range of motion of the right wrist and hand. Sensation intact. Capillary refill is less than 2 seconds. Radial pulses 2+. Right upper extremity is warm and well perfused. Neurovascular status and circulatory status are intact. - Labs CBC & Chem 7: 10/06/17 05:56 10/06/17 05:56 Labs: Abnormal Lab Results - Last 24 Hours (Table) 10/06/17 10/06/17 10/06/17 Range/Units 05:56 05:56 11:38 MCHC 30.2 L (31.0-37.0) g/dL Neutrophils # 7.8 H (1.3-7.7) k/uL Lymphocytes # 0.8 L (1.0-4.8) k/uL Potassium 5.2 H (3.5-5.1) mmol/L BUN 40 H (7-17) mg/dL Creatinine 1.95 H (0.52-1.04) mg/dL Glucose 372 H (74-99) mg/dL POC Glucose (mg/dL) 336 H (75-99) mg/dL 10/06/17 10/06/17 10/07/17 Range/Units 17:24 20:18 07:13 MCHC (31.0-37.0) g/dL Neutrophils # (1.3-7.7) k/uL Lymphocytes # (1.0-4.8) k/uL Potassium (3.5-5.1) mmol/L BUN (7-17) mg/dL Creatinine (0.52-1.04) mg/dL Glucose (74-99) mg/dL POC Glucose (mg/dL) 466 H 384 H 226 H (75-99) mg/dL Assessment and Plan (1) Fracture of proximal end of right humerus Current Visit: Yes Status: Acute Code(s): S42.201A - UNSP FRACTURE OF UPPER END OF RIGHT HUMERUS, INIT SNOMED Code(s): 499135715 (2) Fall Current Visit: Yes Status: Acute Code(s): W19.XXXA - UNSPECIFIED FALL, INITIAL ENCOUNTER SNOMED Code(s): 2527638 Plan: 1. X-rays are reviewed and show a nondisplaced right proximal humerus fracture. 2. Maintain sling to the right upper extremity when out of bed. 3. Rest and ice the right shoulder. 4. No surgical intervention planned. Will continue to follow the patient closely.
[2017-10-07 10:44] LABS: Hemoglobin A1C 7.8 % (4.0-6.0)
--- NOTE | 2017-10-07 12:00 | P.PN ---
Subjective Progress Note Date: 10/07/17 Principal diagnosis: Fall versus syncope, fracture of the proximal and of the right humerus 72-year-old female patient who came into the emergency department yesterday after she had a fall. It is not clear whether the patient had a bout of syncope or suggestive for. It seems that the patient felt a bit dizzy and lightheaded and then she dropped in the bathroom floor. She was brought in with some pain in her right upper extremity and the patient was found to have a right humeral fracture and orthopedic consultation has been obtained and the patient will have only conservative management and there will be no surgical interventions. The patient is not having any significant shortness of breath. No chest pain. No cough or sputum production. No angina. She was recently hospitalized for diarrhea and C. diff colitis and anxiety is also subsided and there is no signs of intravascular volume depletion or dehydration. She has chronic renal failure and her creatinine currently is at 1.6. The rest of the blood work and electrodes are all within normal limits. EKG showing a paced rhythm at the rate of 60. 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 No acute process seen. No significant ostial abnormalities and computed tomography scan of the cervical spine shows no evidence of any fractures. X-ray of the lumbar spine showed compression deformity of the level of L3 along with 25% anterior vertebral body height loss at the level of L3. Degenerative disc disease changes involving the mid in the lower lumbar spine. On 10/07/2017 patient seen in follow-up on medical surgical floor. She is resting comfortably in bed, in no acute distress, right arm is in the sling, distal pulses are intact, sensory status is intact. Having some discomfort to the right shoulder, but in no acute distress. Denies any dyspnea, denies any chest pain, no fever or chills. Vital signs are stable, patient remains on 3 L per nasal cannula and her pulse ox is 93%, hemodynamically stable. No new labs or chest x-rays today. Lung sounds are positive for a few scattered rhonchi, no significant wheezing noted. She normally wears 2 L per nasal cannula at home. She was up out of bed with assistance, tolerated activity well. She remains on Symbicort, and nebulized treatments have been ordered for her on as- needed basis. Objective - Vital Signs Vital signs: Vital Signs Temp 97.9 F 10/07/17 07:38 Pulse 64 10/07/17 11:19 Resp 16 10/07/17 07:38 BP 129/87 10/07/17 09:07 Pulse Ox 93 L 10/07/17 09:07 Intake & Output 10/06/17 10/07/17 10/07/17 18:59 06:59 18:59 Intake Total 300 Balance 300 Intake: Oral 300 Other: Voiding Method Bedpan Bedpan # Voids 2 - Exam - Constitutional General appearance: no acute distress - EENT Eyes: PERRLA, dentition normal ENT: NA/AT Ears: bilateral: normal - Neck Neck: no lymphadenopathy, normal ROM Carotids: bilateral: upstroke normal Thyroid: bilateral: normal size - Respiratory Respiratory: bilateral: CTA - Cardiovascular Rhythm: irregularly irregular Heart sounds: normal: S1, S2 ankle Peripheral Edema: bilateral: Trace dorsalis pedis Peripheral Pulses: bilateral: Normal radial pulse Peripheral Pulses: bilateral: Normal - Gastrointestinal General gastrointestinal: no organomegaly, soft, no tenderness - Integumentary Patient has healed abrasions on her left anterior jimenez, from scratching Integumentary: normal, rash - Neurologic Neurologic: CNII-XII intact - Musculoskeletal Musculoskeletal: Limitation range of motion of the right upper extremity secondary to a humeral fracture. Right arm is in the sling, radial pulses intact, no numbness, no tingling, no loss of sensation - Psychiatric Psychiatric: A&O x's 3, appropriate affect, intact judgment & insight - Labs CBC & Chem 7: 10/06/17 05:56 10/06/17 05:56 Labs: Abnormal Lab Results - Last 24 Hours (Table) 10/06/17 10/06/17 10/06/17 Range/Units 11:38 17:24 20:18 POC Glucose (mg/dL) 336 H 466 H 384 H (75-99) mg/dL 10/07/17 Range/Units 07:13 POC Glucose (mg/dL) 226 H (75-99) mg/dL Assessment and Plan Plan: Assessment: 1 fall versus syncope. 2 fracture of the proximal end of the right humerus. 3. Chronic kidney disease 4. Recent history of intracranial hemorrhage in March 2017, status post surgery with blood clot removal 5. Recent hospitalization for C. diff colitis, recovered 6. History of chronic diastolic congestive heart failure with an EF of 55% 7. Chronic atrial fibrillation, currently not on any anticoagulation due to a recent history of intracranial bleeding 8. Permanent pacemaker 9. Diabetes mellitus type 2 10. History of bronchial asthma, unspecified, without any evidence of current exacerbation 11. History of skin cancer on the face, with subsequent removal 12. Hypertension Plan Continue current plan of treatment, continue pain control, maintain right arm sling. From pulmonary standpoint patient denies any dyspnea, her asthma is to be stable, her home dose Symbicort, and nebulized treatments on as-needed basis. I performed a history & physical examination of the patient and discussed their management with my nurse practitioner, Suzie Mittal. I reviewed the nurse practitioner's note and agree with the documented findings and plan of care. Lung sounds are positive for coarse breath sounds. The findings and the impression was discussed with the patient. I attest to the documentation by the nurse practitioner. Time with Patient: Less than 30
[2017-10-07 12:01] LABS: Glucose,Whole Blood 236 mg/dL (75-99)
--- NOTE | 2017-10-07 13:21 | ECHOF ---
Referral Reason:echo MEASUREMENTS -------- HEIGHT: 167.6 cm WEIGHT: 79.8 kg BP: 150/64 IVSd: 1.2 cm (0.6 - 1.1) LVIDd: 4.6 cm (3.9 - 5.3) LVPWd: 1.1 cm (0.6 - 1.1) IVSs: 1.4 cm LVIDs: 2.6 cm LVPWs: 1.4 cm LAESV Index (A-L): 33.09 ml/m Ao Diam: 3.1 cm (2.0 - 3.7) AV Cusp: 1.8 cm (1.5 - 2.6) LA Diam: 3.4 cm (2.7 - 3.8) EPSS: 0.7 cm MV E Declan: 0.87 m/s MV DecT: 463 ms MV A Declan: 1.02 m/s MV E/A Ratio: 0.85 RAP: 5.00 mmHg RVSP: 36.39 mmHg MV EF SLOPE: 81.16 mm/s (70 - 150) MV EXCURSION: 2.25 cm (> 18.000) FINDINGS -------- Sinus rhythm. This was a technically adequate study. The left ventricular size is normal. There is mild concentric left ventricular hypertrophy. Overa ll left ventricular systolic function is normal with, an EF between 55 - 60 %. The right ventricle is normal in size and function. LA is midly dilated 29-33ml/m2. The right atrium is normal in size. The aortic valve is trileaflet and appears structurally normal. Trace amount of aortic regurgitatio n. There is no evidence of aortic stenosis. The mitral valve leaflets are mildly thickened. Mild mitral annular calcification present. Mild m itral regurgitation is present. Trace tricuspid regurgitation present. Right ventricular systolic pressure is normal at < 35 mmHg. There is borderline pulmonary hypertension. Trace/mild (physiologic) pulmonic regurgitation. The aortic root size is normal. Normal inferior vena cava with normal inspiratory collapse consistent with estimated right atrial pre ssure of 5 mmHg. There is no pericardial effusion. CONCLUSIONS -------- 1. Sinus rhythm. 2. This was a technically adequate study. 3. The left ventricular size is normal. 4. There is mild concentric left ventricular hypertrophy. 5. Overall left ventricular systolic function is normal with, an EF between 55 - 60 %. 6. LA is midly dilated 29-33ml/m2. 7. The aortic valve is trileaflet and appears structurally normal. 8. Trace amount of aortic regurgitation. 9. There is no evidence of aortic stenosis. 10. The mitral valve leaflets are mildly thickened. 11. Mild mitral annular calcification present. 12. Mild mitral regurgitation is present. 13. Trace tricuspid regurgitation present. 14. Right ventricular systolic pressure is normal at < 35 mmHg. 15. There is borderline pulmonary hypertension. 16. Trace/mild (physiologic) pulmonic regurgitation. 17. The aortic root size is normal. 18. There is no pericardial effusion. BOX SEALING MACHINE OPERATOR: Tian Martinez RDCS
--- NOTE | 2017-10-07 13:44 | PN ---
PROGRESS NOTE DATE OF SERVICE: 10/07/2017 This 72-year-old woman who was admitted with right humerus fracture is being closely monitored. Patient also had multiple fractures of the right hand. No chest pain. No palpitations. No fever. Humerus x-ray showed fracture of the proximal diaphyseal right humerus. Orthopedics following the patient closely also. The patient also had diffuse tremors secondary to surgery for blood clot removal for intracranial hemorrhage at this time. The patient also had chronic diastolic dysfunction. Patient being closely monitored. PAST MEDICAL HISTORY: Reviewed. REVIEW OF SYSTEM: Cardiac: No angina or palpitations. Respiration: As mentioned earlier. GI: As mentioned earlier. : No numbness, weakness. Central nervous system: No numbness or weakness. CURRENT MEDICATIONS: Reviewed and include: 1. Tylenol 650 q.4h p.r.n. 2. Chinquapin 5 mg q.4h p.r.n. 3. DuoNeb q.i.d. and p.r.n. 4. Norvasc 10 mg p.o. daily. 5. Symbicort 160/4.5 two puffs b.i.d. 6. Neurontin 300 mg b.i.d. 7. Lopressor 50 mg p.o. daily. 8. NovoLog scale. 9. Levemir 56 units subcu q.h.s. 10.Trandate 100 mg p.o. b.i.d. 11.MiraLAX 17 g p.o. 12.Senokot 8.6 daily. 13.Zoloft 150 mg. 14.Ultram 50 mg q.i.d. p.r.n. PHYSICAL EXAM: Patient is alert, oriented x2. Pulse 62. Blood pressure 180/72, respirations 16, temperature 97.8, pulse ox 98% on room air. HEENT: Conjunctivae normal. Oral mucosa moist. Neck is no jugular venous distention. No carotid bruit. No lymph node enlargement. Cardiovascular systems: S1, S2 muffled. Respirations: Breath sounds diminished in the bases. A few bilateral scattered rhonchi and crackles. ABDOMEN: Soft, nontender. Legs: No edema. No swelling. Central nervous system : Diffusely weak. LABS: Accu-Cheks 226-236. ASSESSMENT: 1. Status post right humerus fracture. 2. Multiple falls. 3. Generalized weakness and gait dysfunction. 4. Lightheadedness. 5. History of surgery for removal of blood clots of intracranial hematoma. 6. Acute renal failure. 7. Chronic kidney disease . 8. History of chronic kidney disease stage 2. 9. Congestive heart failure with chronic diastolic dysfunction. 10.Chronic atrial fibrillation, not on anticoagulation because of the intracranial bleeding. 11.Diabetes type 2. 12.Hypertension. RECOMMENDATIONS AND DISCUSSION: In this 72-year-old woman who presented with multiple complex medical issues, we will monitor the patient closely. Continue the current medications, management and symptomatic treatment. We will monitor blood sugars closely. PT/OT evaluation. Otherwise we will continue the medications. Monitor blood sugars closely. Also will recommend PT/OT evaluation, possible ECF rehab if PT/OT thinks so. The patient will require more than 2 nights stay to evaluate and treat the above mentioned multiple complex medical issues. Discussed with the patient. Also the patient may need some pain management. Also discussed with staff. Discussed with telephonic nurse case manager. Further recommendations to follow. CHELSEA / MOLLYN: [id number] / SRIRAM
[2017-10-07] MEDS: DICYCLOMINE 10 MG CAP PO SCH ×2 (13:58→17:58)
[2017-10-07 14:23] LABS: Calcium 9.4 mg/dL (8.4-10.2); Potassium 4.4 mmol/L (3.5-5.1)
[2017-10-07 16:33] LABS: Glucose,Whole Blood 217 mg/dL (75-99)
[2017-10-07 18:12] LABS: Appearance,Urine Clear (Clear); Bacteria,Urine Rare /hpf; Bilirubin,Urine Negative (Negative); Blood,Urine Negative (Negative); Color,Urine Light Yellow; Glucose,Urine (UA) Trace (Negative); Hyaline Casts,Urine 3 /lpf (0-2); Ketones,Urine Negative (Negative); Leukocyte Esterase,Urine Moderate (Negative); Nitrite,Urine Negative (Negative); Protein,Urine Negative (Negative); RBC,Urine 1 /hpf (0-5); Specific Gravity,Urine 1.012 (1.001-1.035); Squamous Epithelial Cell,Urine <1 /hpf (0-4); Urobilinogen,Urine <2.0 mg/dL (<2.0); WBC,Urine 20 /hpf (0-5)
[2017-10-07 20:17] LABS: Glucose,Whole Blood 169 mg/dL (75-99)
[2017-10-07] MEDS: INSULIN DETEMIR 100 UNIT/ML 10 ML VIAL SQ SCH (20:49)
[2017-10-07] MEDS: SODIUM CHLORIDE 0.9% 1,000 ML IV SCH (21:33)
--- NOTE | 2017-10-08 02:17 | CONS ---
CONSULTATION DATE OF SERVICE: 10/07/2017. REASON FOR CONSULT: Renal failure. HISTORY OF PRESENT ILLNESS: Patient is a 72-year-old female who was admitted to the hospital on 10/05/2017 after a fall. The patient states that she was in the bathroom. She did feel lightheaded and dizzy. She is not sure how she fell and does not remember what happened. There is no history of fever, chills. No abdominal pain, nausea, vomiting. Patient denies any prior history of kidney disease. She was found to have a serum creatinine of 1.6 on initial admission. It did go up to 1.9 yesterday. Today, the creatinine is down to 1.75 mg/dL. Currently patient is voiding on her own. Her blood pressure is not low and was not low at the time of admission as well. At home, the patient was not on any EMILEE inhibitors, angiotensin receptor blockers or NSAIDs. PAST MEDICAL HISTORY: Significant for type 2 diabetes, hypertension, osteoarthritis, atrial fibrillation, hyperlipidemia, paroxysmal atrial fibrillation, coronary artery disease, history of uterine cancer, resection of skin cancer, history of C diff and history of MRSA in the thumb in 2011. PAST SURGICAL HISTORY: History of cholecystectomy, hysterectomy, removal of skin cancer surgery, left arm fracture. SOCIAL HISTORY: Negative for smoking, drug abuse or alcohol abuse. MEDICATIONS: Medications at home prior to admission included Zoloft, Tylenol, Neurontin, Bentyl, hydralazine, potassium, labetalol, amlodipine, iron, Lasix, Flagyl. ALLERGIES: Include latex, sulfa which causes rash and hives. REVIEW OF SYSTEMS: As per HPI. Other systems negative. EXAMINATION: Patient is comfortable, awake. She is not in any acute distress. Blood pressure 146/62, heart rate 65 per minute. She is afebrile. Examination of the heart S1, S2. Examination of lungs, bilateral breath sounds are heard. Abdomen is soft, nontender. Exam of lower extremities shows no evidence of edema. TRANSIT MECHANIC exam is grossly intact. LABS: Sodium 137, potassium 4.4, BUN 58, serum creatinine 1.74, hemoglobin 12.1 g/dL. UA shows moderate leukocyte esterase, WBCs 20, trace glucose, no protein, no blood. ASSESSMENT: 1. Acute kidney injury. Urinalysis is quite benign. Possibly acute tubular necrosis. Need to rule out urine retention. I will check a postvoid residual. We will also check an ultrasound of the kidneys. Previous creatinine was as low as 1.18 on 07/19/2017. Repeat labs in a.m. Continue to avoid nephrotoxic agents and avoid hypotension. 2. Status post fall. No evidence of hypotension. Currently being worked up. 3. Right humerus fracture, post fall. 4. Chronic atrial fibrillation, not on anticoagulation because of history of intracranial hematoma. 5. Congestive heart failure with a history of diastolic heart failure, currently not in failure. PLAN: Start gentle IV hydration and check postvoid residuals. Check ultrasound of the kidneys. Continue to avoid nephrotoxic agents. Repeat labs in a.m. Thank you for this consultation. We will continue to follow the patient with you during her hospitalization. IKEL / MOLLYN: [id number] /
[2017-10-08 06:59] LABS: Glucose,Whole Blood 129 mg/dL (75-99)
[2017-10-08] MEDS: SYMBICORT 160-4.5 MCG INHALER INHALATION SCH ×2 (07:14→19:44)
[2017-10-08] MEDS: IPRATROPIUM-ALBUTEROL 3 ML NEB INHALATION SCH ×4 (07:14→19:44)
[2017-10-08 07:24] LABS: Basophils % (A) 0 %; Eosinophils # (A) 0.3 k/uL (0-0.7); Eosinophils % (A) 2 %; HCT 39.2 % (34.0-46.0); HGB 12.4 gm/dL (11.4-16.0); Lymphocytes # (A) 1.4 k/uL (1.0-4.8); Lymphocytes % (A) 12 %; MCH 25.7 pg (25.0-35.0); MCHC 31.5 g/dL (31.0-37.0); MCV 81.7 fL (80.0-100.0); Mean Platelet Volume 6.9; Monocytes # (A) 0.9 k/uL (0-1.0); Monocytes % (A) 8 %; Neutrophils # (A) 9.1 k/uL (1.3-7.7); Neutrophils % (A) 77 %; Platelet Count 173 k/uL (150-450); RBC 4.81 m/uL (3.80-5.40); RDW 15.3 % (11.5-15.5); WBC 11.8 k/uL (3.8-10.6)
[2017-10-08] MEDS: INSULIN ASPART 100 UNIT/ML 1 ML 10 ML VIAL SQ SCH ×4 (07:37→21:04)
[2017-10-08 07:46] LABS: Calcium 9.1 mg/dL (8.4-10.2); Potassium 4.4 mmol/L (3.5-5.1)
[2017-10-08] MEDS: HYDROcodone/APAP 5-325MG 1 EACH TAB PO PRN ×4 (08:08→21:03)
[2017-10-08] MEDS: SERTRALINE 50 MG TAB PO SCH (08:10)
[2017-10-08] MEDS: amLODIPine 10 MG TAB PO SCH (08:10)
[2017-10-08] MEDS: GABAPENTIN 300 MG CAP PO SCH ×2 (08:10→21:03)
[2017-10-08] MEDS: DICYCLOMINE 10 MG CAP PO SCH ×3 (08:10→18:00)
[2017-10-08] MEDS: hydrALAZINE HCL 50 MG TAB PO SCH ×3 (08:10→21:03)
--- NOTE | 2017-10-08 08:53 | US ---
EXAMINATION TYPE: US kidneys/renal and bladder DATE OF EXAM: 10/08/2017 COMPARISON: NONE CLINICAL HISTORY: Renal failure. EXAM MEASUREMENTS: Right Kidney: 10.5 x 4.9 x 4.2 cm Left Kidney: 10.6 x 4.2 x 4.3 cm Limited visualization of left kidney due to patient unable to move due to fractured humerus Right Kidney: No hydronephrosis or masses seen Left Kidney: No hydronephrosis or masses seen, limited visualization Bladder: wnl, moderately distended Left jet seen Cortical medullary differentiation is maintained bilaterally. There is no ascites. IMPRESSION: Unilateral ureteral jet identified. Some limitations in the exam.
[2017-10-08] MEDS: LABETALOL 100 MG TAB PO SCH ×2 (09:25→21:03)
--- NOTE | 2017-10-08 09:46 | P.PN ---
Subjective Progress Note Date: 10/08/17 Principal diagnosis: Fall versus syncope, fracture of the proximal and of the right humerus 72-year-old female patient who came into the emergency department yesterday after she had a fall. It is not clear whether the patient had a bout of syncope or suggestive for. It seems that the patient felt a bit dizzy and lightheaded and then she dropped in the bathroom floor. She was brought in with some pain in her right upper extremity and the patient was found to have a right humeral fracture and orthopedic consultation has been obtained and the patient will have only conservative management and there will be no surgical interventions. The patient is not having any significant shortness of breath. No chest pain. No cough or sputum production. No angina. She was recently hospitalized for diarrhea and C. diff colitis and anxiety is also subsided and there is no signs of intravascular volume depletion or dehydration. She has chronic renal failure and her creatinine currently is at 1.6. The rest of the blood work and electrodes are all within normal limits. EKG showing a paced rhythm at the rate of 60. 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 No acute process seen. No significant ostial abnormalities and computed tomography scan of the cervical spine shows no evidence of any fractures. X-ray of the lumbar spine showed compression deformity of the level of L3 along with 25% anterior vertebral body height loss at the level of L3. Degenerative disc disease changes involving the mid in the lower lumbar spine. On 10/07/2017 patient seen in follow-up on medical surgical floor. She is resting comfortably in bed, in no acute distress, right arm is in the sling, distal pulses are intact, sensory status is intact. Having some discomfort to the right shoulder, but in no acute distress. Denies any dyspnea, denies any chest pain, no fever or chills. Vital signs are stable, patient remains on 3 L per nasal cannula and her pulse ox is 93%, hemodynamically stable. No new labs or chest x-rays today. Lung sounds are positive for a few scattered rhonchi, no significant wheezing noted. She normally wears 2 L per nasal cannula at home. She was up out of bed with assistance, tolerated activity well. She remains on Symbicort, and nebulized treatments have been ordered for her on as- needed basis. On 10/08/2017 patient seen in follow-up. Resting in bed, denies any dyspnea, denies any chest pain. Remains in the sling, distal pulses are intact, no numbness, no tingling in right hand and right arm. Complaining of moderate amount of discomfort in the right shoulder, currently on tramadol and Sparks's for pain control. Hemodynamically stable, she remains on 3 L per nasal cannula and her pulse ox is 95%, afebrile. Today's labs were reviewed, WBCs 11.8, hemoglobin is 12.4, CO2 is 33, BUN is 45, creatinine is 1.45. Ultrasound of the kidneys and bladder showed no hydronephrosis, and unilateral ureteral jet on the left. Otherwise remains stable. Renal profile is improving on today's labs. Objective - Vital Signs Vital signs: Vital Signs Temp 97 F L 10/08/17 06:46 Pulse 76 10/08/17 07:28 Resp 18 10/08/17 06:46 BP 178/67 10/08/17 06:46 Pulse Ox 95 10/08/17 07:17 Intake & Output 10/07/17 10/08/17 10/08/17 18:59 06:59 18:59 Intake Total 100 Balance 100 Intake: IV 100 Sodium Chloride 0.9% 1, 100 000 ml @ 50 mls/hr IV . Q20H [facility] Rx#:[id number] Other: Voiding Method Bedpan Bedpan # Voids 2 2 - Exam - Constitutional General appearance: no acute distress - EENT Eyes: PERRLA, dentition normal ENT: NA/AT Ears: bilateral: normal - Neck Neck: no lymphadenopathy, normal ROM Carotids: bilateral: upstroke normal Thyroid: bilateral: normal size - Respiratory Respiratory: bilateral: CTA - Cardiovascular Rhythm: irregularly irregular Heart sounds: normal: S1, S2 ankle Peripheral Edema: bilateral: Trace dorsalis pedis Peripheral Pulses: bilateral: Normal radial pulse Peripheral Pulses: bilateral: Normal - Gastrointestinal General gastrointestinal: no organomegaly, soft, no tenderness - Integumentary Patient has healed abrasions on her left anterior jimenez, from scratching Integumentary: normal, rash - Neurologic Neurologic: CNII-XII intact - Musculoskeletal Musculoskeletal: Limitation range of motion of the right upper extremity secondary to a humeral fracture. Right arm is in the sling, radial pulses intact, no numbness, no tingling, no loss of sensation - Psychiatric Psychiatric: A&O x's 3, appropriate affect, intact judgment & insight - Labs CBC & Chem 7: 10/08/17 07:00 10/08/17 07:00 Labs: Abnormal Lab Results - Last 24 Hours (Table) 10/05/17 10/07/17 10/07/17 Range/Units 20:22 12:00 13:35 WBC (3.8-10.6) k/uL Neutrophils # (1.3-7.7) k/uL Carbon Dioxide 31 H (22-30) mmol/L BUN 58 H (7-17) mg/dL Creatinine 1.75 H (0.52-1.04) mg/dL Glucose 196 H (74-99) mg/dL POC Glucose (mg/dL) 236 H (75-99) mg/dL Hemoglobin A1c 7.8 H (4.0-6.0) % Urine Glucose (UA) (Negative) Ur Leukocyte Esterase (Negative) Urine WBC (0-5) /hpf Urine Bacteria (None) /hpf Hyaline Casts (0-2) /lpf 10/07/17 10/07/17 10/07/17 Range/Units 16:31 18:00 20:15 WBC (3.8-10.6) k/uL Neutrophils # (1.3-7.7) k/uL Carbon Dioxide (22-30) mmol/L BUN (7-17) mg/dL Creatinine (0.52-1.04) mg/dL Glucose (74-99) mg/dL POC Glucose (mg/dL) 217 H 169 H (75-99) mg/dL Hemoglobin A1c (4.0-6.0) % Urine Glucose (UA) Trace H (Negative) Ur Leukocyte Esterase Moderate H (Negative) Urine WBC 20 H (0-5) /hpf Urine Bacteria Rare H (None) /hpf Hyaline Casts 3 H (0-2) /lpf 10/08/17 10/08/17 10/08/17 Range/Units 06:57 07:00 07:00 WBC 11.8 H (3.8-10.6) k/uL Neutrophils # 9.1 H (1.3-7.7) k/uL Carbon Dioxide 33 H (22-30) mmol/L BUN 45 H (7-17) mg/dL Creatinine 1.45 H (0.52-1.04) mg/dL Glucose 122 H (74-99) mg/dL POC Glucose (mg/dL) 129 H (75-99) mg/dL Hemoglobin A1c (4.0-6.0) % Urine Glucose (UA) (Negative) Ur Leukocyte Esterase (Negative) Urine WBC (0-5) /hpf Urine Bacteria (None) /hpf Hyaline Casts (0-2) /lpf Assessment and Plan Plan: Assessment: 1 fall versus syncope. 2 fracture of the proximal end of the right humerus. 3. Chronic kidney disease 4. Recent history of intracranial hemorrhage in March 2017, status post surgery with blood clot removal 5. Recent hospitalization for C. diff colitis, recovered 6. History of chronic diastolic congestive heart failure with an EF of 55% 7. Chronic atrial fibrillation, currently not on any anticoagulation due to a recent history of intracranial bleeding 8. Permanent pacemaker 9. Diabetes mellitus type 2 10. History of bronchial asthma, unspecified, without any evidence of current exacerbation 11. History of skin cancer on the face, with subsequent removal 12. Hypertension Plan Encourage deep breathing and coughing, incentive spirometer to the bedside, continue Symbicort, and nebulized bronchodilators. No worsening dyspnea, no wheezing, no chest congestion. Maintain pain control. Encourage ambulation with supervision and assistance. I performed a history & physical examination of the patient and discussed their management with my nurse practitioner, Suzie Mittal. I reviewed the nurse practitioner's note and agree with the documented findings and plan of care. Lung sounds are positive for coarse breath sounds. The findings and the impression was discussed with the patient. I attest to the documentation by the nurse practitioner. Time with Patient: Less than 30
[2017-10-08 11:40] LABS: Glucose,Whole Blood 159 mg/dL (75-99)
--- NOTE | 2017-10-08 13:33 | PN ---
PROGRESS NOTE DATE OF SERVICE: 10/08/2017 This 72-year-old woman who was admitted after right humerus fracture is being closely monitored. No chest pain or palpitation. The patient had some pain yesterday. The family is planning going home with home care at this time. No fever, no cough. PHYSICAL EXAMINATION: On exam, alert and oriented x2. Pulse 70, blood pressure 178/67, respiration 18, temperature 97.6, pulse ox is 96% on 3 L. HEENT: Conjunctivae normal. Oral mucosa moist. NECK: No jugular venous distention. No carotid bruit. No lymph node enlargement. CARDIOVASCULAR: S1 and S2 muffled. RESPIRATORY: Breath sounds diminished at the bases. No rhonchi, no crackles. ABDOMEN: Soft, nontender. LEGS: No edema, no swelling. NERVOUS SYSTEM: Higher functions as mentioned earlier. Moves all 4 limbs. No focal motor or sensory deficits. LYMPHATICS: No lymphadenopathy of the neck, axillae or groin. SKIN: No ulcer, rash or bleeding. LABS: Labs are noted. Labs are showing WBC 11.8, hemoglobin 12.4, sodium 140 potassium 4.4. ASSESSMENT: 1. Status post right humerus fracture with severe pain. 2. Multiple falls. 3. Generalized weakness and gait dysfunction. 4. Lightheadedness. 5. Hypertension. 6. History of surgery for removal blood clots of intracranial hematoma. 7. Acute renal failure. 8. Chronic kidney disease, stage III. 9. Congestive heart failure with chronic diastolic dysfunction. 10.Chronic atrial fibrillation, not on anticoagulation because of intracranial bleeding. 11.Diabetes mellitus type 2. 12.FULL CODE. RECOMMENDATIONS AND DISCUSSION: This 72-year-old woman who presented with multiple complex medical issues, will monitor the patient closely. Continue the current medications. Continue symptomatic treatment. Optimize the pain management. PT, OT evaluation. Possible home with home care. Continue the rest of the medication. Overall prognosis guarded. Further recommendations to follow. MMODL / IJN: [id number] /
[2017-10-08] MEDS: SODIUM CHLORIDE 0.9% 1,000 ML IV SCH (16:13)
[2017-10-08 16:53] LABS: Glucose,Whole Blood 221 mg/dL (75-99)
--- NOTE | 2017-10-08 19:30 | P.PN ---
Subjective Progress Note Date: 10/08/17 This is a 72-year-old female who is being followed by orthopedics for right proximal humerus fracture. Patient states that her pain is well-controlled. Patient denies any new complaints or symptoms today. Patient denies any fever/ chills, numbness, weakness, tingling, abdominal pain, shortness of breath or chest pain. Objective - Vital Signs Vital signs: Vital Signs Temp 98.5 F 10/08/17 14:48 Pulse 70 10/08/17 15:45 Resp 16 10/08/17 14:48 BP 132/51 10/08/17 14:48 Pulse Ox 94 L 10/08/17 14:48 Intake & Output 10/08/17 10/08/17 10/09/17 06:59 18:59 06:59 Intake Total 100 1150 Output Total 300 Balance 100 850 Weight 79.9 kg Intake: IV 100 Sodium Chloride 0.9% 1, 100 000 ml @ 50 mls/hr IV . Q20H [facility] Rx#:[id number] Intake, IV Titration 350 Amount Sodium Chloride 0.9% 1, 350 000 ml @ 50 mls/hr IV . Q20H [facility] Rx#:[id number] Oral 800 Output: Urine 300 Other: Voiding Method Bedpan Bedpan # Voids 2 2 - Exam On exam patient is alert and oriented 3 and lying comfortably in bed in no acute distress. There is swelling over the right shoulder. Patient has full range of motion of the right wrist and hand. Sensation intact. Capillary refill is less than 2 seconds. Radial pulses 2+. Right upper extremity is warm and well perfused. Neurovascular status and circulatory status are intact. - Labs CBC & Chem 7: 10/08/17 07:00 10/08/17 07:00 Labs: Abnormal Lab Results - Last 24 Hours (Table) 10/07/17 10/08/17 10/08/17 Range/Units 20:15 06:57 07:00 WBC 11.8 H (3.8-10.6) k/uL Neutrophils # 9.1 H (1.3-7.7) k/uL Carbon Dioxide (22-30) mmol/L BUN (7-17) mg/dL Creatinine (0.52-1.04) mg/dL Glucose (74-99) mg/dL POC Glucose (mg/dL) 169 H 129 H (75-99) mg/dL 10/08/17 10/08/17 10/08/17 Range/Units 07:00 11:38 16:51 WBC (3.8-10.6) k/uL Neutrophils # (1.3-7.7) k/uL Carbon Dioxide 33 H (22-30) mmol/L BUN 45 H (7-17) mg/dL Creatinine 1.45 H (0.52-1.04) mg/dL Glucose 122 H (74-99) mg/dL POC Glucose (mg/dL) 159 H 221 H (75-99) mg/dL Assessment and Plan (1) Fracture of proximal end of right humerus Current Visit: Yes Status: Acute Code(s): S42.201A - UNSP FRACTURE OF UPPER END OF RIGHT HUMERUS, INIT SNOMED Code(s): 070824841 (2) Fall Current Visit: Yes Status: Acute Code(s): W19.XXXA - UNSPECIFIED FALL, INITIAL ENCOUNTER SNOMED Code(s): 5103598 Plan: 1. X-rays are reviewed and show a nondisplaced right proximal humerus fracture. 2. Maintain sling to the right upper extremity when out of bed. 3. Rest and ice the right shoulder. 4. No surgical intervention planned. Will continue to follow the patient closely.
[2017-10-08 20:13] LABS: Glucose,Whole Blood 231 mg/dL (75-99)
[2017-10-08] MEDS: INSULIN DETEMIR 100 UNIT/ML 10 ML VIAL SQ SCH (21:04)
--- NOTE | 2017-10-08 22:51 | PN ---
PROGRESS NOTE Patient is seen for followup for acute kidney injury which is appears to be mainly prerenal. The patient is maintained on IV fluids. Her renal function has improved. Serum creatinine is down to 1.45 from 1.7 yesterday. It had peaked to 1.9. EXAMINATION: Blood pressure was 132/51, heart rate 68 per minute. Patient is afebrile. HEART: S1, S2. LUNGS: Bilateral breath sounds are heard. Abdomen is soft, nontender. Lower extremities show no evidence of edema. The patient's right arm is currently in a sling. LABS: Show sodium 140, potassium 4.4, BUN 45, serum creatinine 1.45. Hemoglobin 12.4 g/dL. ASSESSMENT: 1. Acute kidney injury, prerenal, currently improving. Patient is maintained on IV fluids. She is advised to maintain good oral intake. She is not on any nephrotoxic medications. Ultrasound of the kidneys did not show any evidence of hydronephrosis. Both kidneys were fairly good size. 2. Status post fall. 3. Fracture of proximal right humerus, currently in a sling. PLAN: Continue IV fluids for 1 more day. Continue to encourage increased oral intake. Avoid hypotension. The patient will need outpatient followup. MMODL / IJN: [id number] /
[2017-10-09] MEDS: HYDROcodone/APAP 5-325MG 1 EACH TAB PO PRN (01:52)
[2017-10-09] MEDS: IPRATROPIUM-ALBUTEROL 3 ML NEB INHALATION SCH ×4 (06:49→19:35)
[2017-10-09] MEDS: SYMBICORT 160-4.5 MCG INHALER INHALATION SCH ×2 (06:49→19:35)
[2017-10-09 06:58] LABS: Glucose,Whole Blood 59 mg/dL (75-99)
[2017-10-09] MEDS: INSULIN ASPART 100 UNIT/ML 1 ML 10 ML VIAL SQ SCH ×4 (07:12→21:17)
[2017-10-09 07:17] LABS: Glucose,Whole Blood 75 mg/dL (75-99)
[2017-10-09 07:54] LABS: Basophils % (A) 0 %; Eosinophils # (A) 0.3 k/uL (0-0.7); Eosinophils % (A) 3 %; HCT 36.2 % (34.0-46.0); HGB 11.6 gm/dL (11.4-16.0); Lymphocytes # (A) 1.6 k/uL (1.0-4.8); Lymphocytes % (A) 17 %; MCH 26.3 pg (25.0-35.0); MCV 82.1 fL (80.0-100.0); Monocytes # (A) 0.8 k/uL (0-1.0); Monocytes % (A) 9 %; Neutrophils # (A) 6.5 k/uL (1.3-7.7); Neutrophils % (A) 70 %; Platelet Count 148 k/uL (150-450); RBC 4.41 m/uL (3.80-5.40); WBC 9.3 k/uL (3.8-10.6)
[2017-10-09 08:10] LABS: Calcium 8.8 mg/dL (8.4-10.2)
[2017-10-09] MEDS: SERTRALINE 50 MG TAB PO SCH (08:39)
[2017-10-09] MEDS: GABAPENTIN 300 MG CAP PO SCH ×2 (08:39→21:17)
[2017-10-09] MEDS: hydrALAZINE HCL 50 MG TAB PO SCH ×3 (08:39→21:17)
[2017-10-09] MEDS: amLODIPine 10 MG TAB PO SCH (08:39)
--- NOTE | 2017-10-09 09:02 | P.PN ---
Subjective Progress Note Date: 10/09/17 This is a 72-year-old female who is being followed by orthopedics for right proximal humerus fracture. Patient reports improvement in pain and swelling today. Patient denies any new symptoms or complaints. Patient denies any fever/ chills, numbness, weakness, tingling, abdominal pain, shortness of breath or chest pain. Objective - Vital Signs Vital signs: Vital Signs Temp 97.9 F 10/09/17 05:57 Pulse 68 10/09/17 08:42 Resp 18 10/09/17 08:42 BP 118/58 10/09/17 05:57 Pulse Ox 94 L 10/09/17 05:57 Intake & Output 10/08/17 10/09/17 10/09/17 18:59 06:59 18:59 Intake Total 1150 175 Output Total 300 Balance 850 175 Weight 79.9 kg Intake: IV 175 Sodium Chloride 0.9% 1, 175 000 ml @ 50 mls/hr IV . Q20H [facility] Rx#:[id number] Intake, IV Titration 350 Amount Sodium Chloride 0.9% 1, 350 000 ml @ 50 mls/hr IV . Q20H [facility] Rx#:[id number] Oral 800 Output: Urine 300 Other: Voiding Method Bedpan Bedpan Bedpan # Voids 2 2 - Exam On exam patient is alert and oriented 3 and lying comfortably in bed in no acute distress. There is swelling over the right shoulder. Patient has full range of motion of the right wrist and hand. Sensation intact. Capillary refill is less than 2 seconds. Radial pulses 2+. Right upper extremity is warm and well perfused. Neurovascular status and circulatory status are intact. - Labs CBC & Chem 7: 10/09/17 07:21 10/09/17 07:21 Labs: Abnormal Lab Results - Last 24 Hours (Table) 10/08/17 10/08/17 10/08/17 Range/Units 11:38 16:51 20:11 Plt Count (150-450) k/uL Carbon Dioxide (22-30) mmol/L BUN (7-17) mg/dL Creatinine (0.52-1.04) mg/dL POC Glucose (mg/dL) 159 H 221 H 231 H (75-99) mg/dL 10/09/17 10/09/17 10/09/17 Range/Units 06:53 07:21 07:21 Plt Count 148 L (150-450) k/uL Carbon Dioxide 32 H (22-30) mmol/L BUN 38 H (7-17) mg/dL Creatinine 1.39 H (0.52-1.04) mg/dL POC Glucose (mg/dL) 59 L (75-99) mg/dL Assessment and Plan (1) Fracture of proximal end of right humerus Current Visit: Yes Status: Acute Code(s): S42.201A - UNSP FRACTURE OF UPPER END OF RIGHT HUMERUS, INIT SNOMED Code(s): 833016595 (2) Fall Current Visit: Yes Status: Acute Code(s): W19.XXXA - UNSPECIFIED FALL, INITIAL ENCOUNTER SNOMED Code(s): 3380542 Plan: 1. X-rays are reviewed and show a nondisplaced right proximal humerus fracture. 2. Maintain sling to the right upper extremity when out of bed. 3. Rest and ice the right shoulder. 4. No surgical intervention planned. Will continue to follow the patient closely.
--- NOTE | 2017-10-09 10:06 | P.PN ---
Subjective Progress Note Date: 10/09/17 Principal diagnosis: Fall versus syncope, fracture of the proximal and of the right humerus 72-year-old female patient who came into the emergency department yesterday after she had a fall. It is not clear whether the patient had a bout of syncope or suggestive for. It seems that the patient felt a bit dizzy and lightheaded and then she dropped in the bathroom floor. She was brought in with some pain in her right upper extremity and the patient was found to have a right humeral fracture and orthopedic consultation has been obtained and the patient will have only conservative management and there will be no surgical interventions. The patient is not having any significant shortness of breath. No chest pain. No cough or sputum production. No angina. She was recently hospitalized for diarrhea and C. diff colitis and anxiety is also subsided and there is no signs of intravascular volume depletion or dehydration. She has chronic renal failure and her creatinine currently is at 1.6. The rest of the blood work and electrodes are all within normal limits. EKG showing a paced rhythm at the rate of 60. 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 No acute process seen. No significant ostial abnormalities and computed tomography scan of the cervical spine shows no evidence of any fractures. X-ray of the lumbar spine showed compression deformity of the level of L3 along with 25% anterior vertebral body height loss at the level of L3. Degenerative disc disease changes involving the mid in the lower lumbar spine. On 10/07/2017 patient seen in follow-up on medical surgical floor. She is resting comfortably in bed, in no acute distress, right arm is in the sling, distal pulses are intact, sensory status is intact. Having some discomfort to the right shoulder, but in no acute distress. Denies any dyspnea, denies any chest pain, no fever or chills. Vital signs are stable, patient remains on 3 L per nasal cannula and her pulse ox is 93%, hemodynamically stable. No new labs or chest x-rays today. Lung sounds are positive for a few scattered rhonchi, no significant wheezing noted. She normally wears 2 L per nasal cannula at home. She was up out of bed with assistance, tolerated activity well. She remains on Symbicort, and nebulized treatments have been ordered for her on as- needed basis. On 10/08/2017 patient seen in follow-up. Resting in bed, denies any dyspnea, denies any chest pain. Remains in the sling, distal pulses are intact, no numbness, no tingling in right hand and right arm. Complaining of moderate amount of discomfort in the right shoulder, currently on tramadol and Horatio's for pain control. Hemodynamically stable, she remains on 3 L per nasal cannula and her pulse ox is 95%, afebrile. Today's labs were reviewed, WBCs 11.8, hemoglobin is 12.4, CO2 is 33, BUN is 45, creatinine is 1.45. Ultrasound of the kidneys and bladder showed no hydronephrosis, and unilateral ureteral jet on the left. Otherwise remains stable. Renal profile is improving on today's labs. On 10/09/2017 patient seen in follow-up. Resting in bed, in no acute distress, she states her right arm pain is reasonable controlled, remains in the sling, right radial pulse is intact, no numbness no tingling. Denies any pulmonary complaints, denies any dyspnea or chest pain. She is compliant with her incentive spirometer, and is able to achieve 1000 mL on the today, remains on 3 L per nasal cannula with a pulse ox of 94%, she is afebrile. Today's lab work shows improvement patient's renal function, BUN is down to 38, and creatinine is at 1.39, and patient remains on IV hydration in the form of 0.9 normal saline at a rate of 50 ML per hour. Objective - Vital Signs Vital signs: Vital Signs Temp 97.9 F 10/09/17 05:57 Pulse 68 10/09/17 08:42 Resp 18 10/09/17 08:42 BP 118/58 10/09/17 05:57 Pulse Ox 94 L 10/09/17 05:57 Intake & Output 10/08/17 10/09/17 10/09/17 18:59 06:59 18:59 Intake Total 1150 175 Output Total 300 Balance 850 175 Weight 79.9 kg Intake: IV 175 Sodium Chloride 0.9% 1, 175 000 ml @ 50 mls/hr IV . Q20H [facility] Rx#:[id number] Intake, IV Titration 350 Amount Sodium Chloride 0.9% 1, 350 000 ml @ 50 mls/hr IV . Q20H [facility] Rx#:[id number] Oral 800 Output: Urine 300 Other: Voiding Method Bedpan Bedpan Bedpan # Voids 2 2 - Exam - Constitutional General appearance: no acute distress - EENT Eyes: PERRLA, dentition normal ENT: NA/AT Ears: bilateral: normal - Neck Neck: no lymphadenopathy, normal ROM Carotids: bilateral: upstroke normal Thyroid: bilateral: normal size - Respiratory Respiratory: bilateral: CTA - Cardiovascular Rhythm: irregularly irregular Heart sounds: normal: S1, S2 ankle Peripheral Edema: bilateral: Trace dorsalis pedis Peripheral Pulses: bilateral: Normal radial pulse Peripheral Pulses: bilateral: Normal - Gastrointestinal General gastrointestinal: no organomegaly, soft, no tenderness - Integumentary Patient has healed abrasions on her left anterior jimenez, from scratching Integumentary: normal, rash - Neurologic Neurologic: CNII-XII intact - Musculoskeletal Musculoskeletal: Limitation range of motion of the right upper extremity secondary to a humeral fracture. Right arm is in the sling, radial pulses intact, no numbness, no tingling, no loss of sensation - Psychiatric Psychiatric: A&O x's 3, appropriate affect, intact judgment & insight - Labs CBC & Chem 7: 10/09/17 07:21 10/09/17 07:21 Labs: Abnormal Lab Results - Last 24 Hours (Table) 10/08/17 10/08/17 10/08/17 Range/Units 11:38 16:51 20:11 Plt Count (150-450) k/uL Carbon Dioxide (22-30) mmol/L BUN (7-17) mg/dL Creatinine (0.52-1.04) mg/dL POC Glucose (mg/dL) 159 H 221 H 231 H (75-99) mg/dL 10/09/17 10/09/17 10/09/17 Range/Units 06:53 07:21 07:21 Plt Count 148 L (150-450) k/uL Carbon Dioxide 32 H (22-30) mmol/L BUN 38 H (7-17) mg/dL Creatinine 1.39 H (0.52-1.04) mg/dL POC Glucose (mg/dL) 59 L (75-99) mg/dL Assessment and Plan Plan: Assessment: 1 fall versus syncope. 2 fracture of the proximal end of the right humerus. 3. Chronic kidney disease 4. Recent history of intracranial hemorrhage in March 2017, status post surgery with blood clot removal 5. Recent hospitalization for C. diff colitis, recovered 6. History of chronic diastolic congestive heart failure with an EF of 55% 7. Chronic atrial fibrillation, currently not on any anticoagulation due to a recent history of intracranial bleeding 8. Permanent pacemaker 9. Diabetes mellitus type 2 10. History of bronchial asthma, unspecified, without any evidence of current exacerbation 11. History of skin cancer on the face, with subsequent removal 12. Hypertension Plan Continue current medical treatment, because bronchodilators, continue encouraging incentive spirometry, encourage ambulation with assistance. Renal profile is improving with IV hydration. No acute events overnight, pain is reasonably controlled, no surgical intervention for the right humeral fracture indicated, orthopedic surgery following. I performed a history & physical examination of the patient and discussed their management with my nurse practitioner, Suzie Mittal. I reviewed the nurse practitioner's note and agree with the documented findings and plan of care. Lung sounds are positive for coarse breath sounds. The findings and the impression was discussed with the patient. I attest to the documentation by the nurse practitioner. Time with Patient: Less than 30
[2017-10-09] MEDS: DICYCLOMINE 10 MG CAP PO SCH ×3 (10:37→17:49)
[2017-10-09] MEDS: traMADol 50 MG TAB PO PRN (10:38)
[2017-10-09] MEDS: LABETALOL 100 MG TAB PO SCH ×2 (10:39→21:17)
[2017-10-09 11:11] LABS: Glucose,Whole Blood 211 mg/dL (75-99)
[2017-10-09] MEDS: SODIUM CHLORIDE 0.9% 1,000 ML IV SCH (14:33)
--- NOTE | 2017-10-09 15:31 | PN ---
PROGRESS NOTE The patient is seen for followup of acute kidney injury. She is currently maintained on gentle IV hydration. Overall, patient states she is feeling better. Creatinine is down to 1.3 from 1.45 yesterday. PHYSICAL EXAMINATION: Blood pressure was 118/58, heart rate 66 per minute. Patient is afebrile. Examination of the heart S1, S2. Examination of the lungs decreased breath sounds at the bases. Abdomen is soft, nontender. Examination of lower extremities, shows no significant edema. Right arm is in a sling. LAB: Show sodium 138, potassium 4.0, BUN 38, serum creatinine 1.39, hemoglobin 11.6 g/dL. ASSESSMENT: 1. Acute kidney injury, prerenal, currently significantly improved. 2. Status post fall and fracture of the right humerus, currently in a sling. 3. Hypovolemia, currently improved. PLAN: The patient is stable for discharge. He should follow up as outpatient. She is advised to continue to avoid the use of nonsteroidal anti-inflammatory agents. MMODL / IJN: [id number] /
[2017-10-09 17:07] LABS: Glucose,Whole Blood 148 mg/dL (75-99)
[2017-10-09 20:39] LABS: Glucose,Whole Blood 259 mg/dL (75-99)
[2017-10-09] MEDS: INSULIN DETEMIR 100 UNIT/ML 10 ML VIAL SQ SCH (21:17)
--- NOTE | 2017-10-10 05:25 | PN ---
PROGRESS NOTE DATE OF SERVICE: 10/09/2017 This 72-year-old woman was admitted with right humerus fracture is being closely monitored. Currently the patient complains of severe pain and gait dysfunction. PT, OT evaluating the patient for ECF rehab. No chest pain or palpitation. No fever. PHYSICAL EXAMINATION: On exam, alert and oriented x3. Pulse 61, blood pressure 174/74, respiration 16, temperature 98.8, pulse ox 98% on 3 L. HEENT: Conjunctivae normal. NECK: No jugular venous distention. CARDIOVASCULAR: S1 and S2 muffled. RESPIRATORY: Breath sounds diminished at the bases. A few scattered rhonchi. ABDOMEN: Soft, nontender. LEGS: No edema, no swelling. NERVOUS SYSTEM: Diffusely weak. Right , status post humerus fracture. LABS: CBC within normal limits. Creatinine is 1.39. Accu-Cheks 148 and 259. ASSESSMENT: 1. Status post right humerus fracture with severe pain. 2. Multiple falls. 3. Generalized weakness and gait dysfunction. 4. Lightheadedness. 5. Hypertension. 6. History of surgery for removal of blood clots for intracranial hematoma. 7. Acute renal failure. 8. Chronic kidney disease stage III. 9. Congestive heart failure with chronic diastolic dysfunction. 10.Chronic atrial fibrillation, not on anticoagulation because of intracranial bleeding. 11.Diabetes mellitus type 2. 12.FULL CODE. RECOMMENDATIONS AND DISCUSSION: Recommend to continue current medications and symptomatic treatment. PT, OT evaluation, possible ECF rehab. Closely follow with multiple consultants. Further recommendations to follow. MMODL / IJN: [id number] / MTDD
[2017-10-10 06:54] LABS: Glucose,Whole Blood 54 mg/dL (75-99)
[2017-10-10] MEDS: INSULIN ASPART 100 UNIT/ML 1 ML 10 ML VIAL SQ SCH ×4 (07:01→21:22)
[2017-10-10] MEDS: DICYCLOMINE 10 MG CAP PO SCH ×3 (07:07→15:49)
[2017-10-10] MEDS: SERTRALINE 50 MG TAB PO SCH (07:07)
[2017-10-10] MEDS: hydrALAZINE HCL 50 MG TAB PO SCH ×3 (07:07→21:23)
[2017-10-10] MEDS: amLODIPine 10 MG TAB PO SCH (07:07)
[2017-10-10] MEDS: GABAPENTIN 300 MG CAP PO SCH ×2 (07:08→21:23)
[2017-10-10] MEDS: SYMBICORT 160-4.5 MCG INHALER INHALATION SCH ×2 (07:11→19:47)
[2017-10-10] MEDS: IPRATROPIUM-ALBUTEROL 3 ML NEB INHALATION SCH ×4 (07:12→19:47)
[2017-10-10 07:28] LABS: Glucose,Whole Blood 154 mg/dL (75-99)
[2017-10-10 07:40] LABS: Basophils % (A) 1 %; Eosinophils # (A) 0.2 k/uL (0-0.7); Eosinophils % (A) 3 %; HGB 11.6 gm/dL (11.4-16.0); Lymphocytes # (A) 1.8 k/uL (1.0-4.8); Lymphocytes % (A) 20 %; MCH 26.1 pg (25.0-35.0); MCHC 31.3 g/dL (31.0-37.0); MCV 83.4 fL (80.0-100.0); Mean Platelet Volume 6.5; Monocytes # (A) 0.8 k/uL (0-1.0); Monocytes % (A) 8 %; Neutrophils % (A) 67 %; Platelet Count 164 k/uL (150-450); RBC 4.43 m/uL (3.80-5.40)
[2017-10-10 07:54] LABS: Calcium 9.1 mg/dL (8.4-10.2); Potassium 4.1 mmol/L (3.5-5.1)
[2017-10-10] MEDS: LABETALOL 100 MG TAB PO SCH ×2 (08:57→22:22)
--- NOTE | 2017-10-10 08:58 | P.PN ---
Subjective Progress Note Date: 10/10/17 This is a 72-year-old female who is being followed by orthopedics for right proximal humerus fracture. Patient states that her pain continues to improve. Patient denies any new symptoms or complaints. Patient denies any fever/chills, numbness, weakness, tingling, abdominal pain, shortness of breath or chest pain. Objective - Vital Signs Vital signs: Vital Signs Temp 97.9 F 10/10/17 05:00 Pulse 68 10/10/17 07:26 Resp 62 H 10/10/17 07:12 BP 141/67 10/10/17 05:00 Pulse Ox 97 10/10/17 05:00 Intake & Output 10/09/17 10/10/17 10/10/17 18:59 06:59 18:59 Intake Total 1000 Balance 1000 Intake: Intake, IV Titration 200 Amount Sodium Chloride 0.9% 1, 200 000 ml @ 50 mls/hr IV . Q20H [facility] Rx#:[id number] Oral 800 Other: Voiding Method Bedpan Bedpan Bedpan # Voids 1 1 - Exam On exam patient is alert and oriented 3 and lying comfortably in bed in no acute distress. There is swelling over the right shoulder. Patient has full range of motion of the right wrist and hand. Sensation intact. Capillary refill is less than 2 seconds. Radial pulses 2+. Right upper extremity is warm and well perfused. Neurovascular status and circulatory status are intact. - Labs CBC & Chem 7: 10/10/17 06:57 10/10/17 06:57 Labs: Abnormal Lab Results - Last 24 Hours (Table) 10/09/17 10/09/17 10/09/17 Range/Units 11:10 17:04 20:21 Carbon Dioxide (22-30) mmol/L BUN (7-17) mg/dL Creatinine (0.52-1.04) mg/dL Glucose (74-99) mg/dL POC Glucose (mg/dL) 211 H 148 H 259 H (75-99) mg/dL 10/10/17 10/10/17 10/10/17 Range/Units 06:52 06:57 07:27 Carbon Dioxide 32 H (22-30) mmol/L BUN 34 H (7-17) mg/dL Creatinine 1.31 H (0.52-1.04) mg/dL Glucose 48 L* (74-99) mg/dL POC Glucose (mg/dL) 54 L 154 H (75-99) mg/dL Assessment and Plan (1) Fracture of proximal end of right humerus Current Visit: Yes Status: Acute Code(s): S42.201A - UNSP FRACTURE OF UPPER END OF RIGHT HUMERUS, INIT SNOMED Code(s): 915653540 (2) Fall Current Visit: Yes Status: Acute Code(s): W19.XXXA - UNSPECIFIED FALL, INITIAL ENCOUNTER SNOMED Code(s): 2741575 Plan: 1. X-rays are reviewed and show a nondisplaced right proximal humerus fracture. 2. Maintain sling to the right upper extremity when out of bed. 3. Rest and ice the right shoulder. 4. No surgical intervention planned. Will continue to follow the patient closely.
[2017-10-10] MEDS: SODIUM CHLORIDE 0.9% 1,000 ML IV SCH (11:05)
[2017-10-10 11:40] LABS: Glucose,Whole Blood 137 mg/dL (75-99)
[2017-10-10] MEDS: ACETAMINOPHEN TAB 325 MG TAB PO PRN (15:49)
--- NOTE | 2017-10-10 16:14 | P.PN ---
Subjective Progress Note Date: 10/10/17 Progress note being dictated for Dr. Toledo. Interval history: This a 72-year-old female admitted with right humerus fracture , gait dysfunction and multiple other medical issues. Evaluated by PT OT and subacute rehab recommended at discharge. Maintained on gentle IV fluid hydration, Renal function improving . Denies chest pain, palpitations.Afebrile. Objective - Vital Signs Vital signs: Vital Signs Temp 97.7 F 10/10/17 15:26 Pulse 62 10/10/17 15:52 Resp 17 10/10/17 15:52 BP 176/75 10/10/17 15:26 Pulse Ox 96 10/10/17 15:26 Intake & Output 10/09/17 10/10/17 10/10/17 18:59 06:59 18:59 Intake Total 1000 120 Balance 1000 120 Intake: Intake, IV Titration 200 Amount Sodium Chloride 0.9% 1, 200 000 ml @ 50 mls/hr IV . Q20H [facility] Rx#:[id number] Oral 800 120 Other: Voiding Method Bedpan Bedpan Bedpan # Voids 1 1 2 - Exam PHYSICAL EXAM: VITAL SIGNS: As above GENERAL: Sitting up in bed, wearing sling, no acute distress HEENT: Conjunctivae normal. eyes normal. Oral mucosa moist NECK: No JVD. No thyroid enlargement. No LNs CARDIOVASCULAR: S1, S2 muffled. No murmur RESPIRATION: Breath sounds diminished in the bases. Occasional scattered rhonchi , no crackles. ABDOMEN: Soft, nontender . No guarding. no masses palpable. Bowel sounds heard. Extremities: Status post right humerus fracture, wearing sling,LEGS: No edema. no swelling PSYCHIATRY: Alert and oriented -3, mood and affect normal. NERVOUS SYSTEM: Cranial N 2-12 grossly normal. Diffuse weakness No focal deficits. - Labs CBC & Chem 7: 10/10/17 06:57 10/10/17 06:57 Labs: Abnormal Lab Results - Last 24 Hours (Table) 10/09/17 10/09/17 10/10/17 Range/Units 17:04 20:21 06:52 Carbon Dioxide (22-30) mmol/L BUN (7-17) mg/dL Creatinine (0.52-1.04) mg/dL Glucose (74-99) mg/dL POC Glucose (mg/dL) 148 H 259 H 54 L (75-99) mg/dL 10/10/17 10/10/17 10/10/17 Range/Units 06:57 07:27 11:38 Carbon Dioxide 32 H (22-30) mmol/L BUN 34 H (7-17) mg/dL Creatinine 1.31 H (0.52-1.04) mg/dL Glucose 48 L* (74-99) mg/dL POC Glucose (mg/dL) 154 H 137 H (75-99) mg/dL Assessment and Plan Assessment: 1. Status post right humerus fracture with severe pain 2. Multiple falls 3. Generalized weakness, and gait dysfunction 4. Hypertension 5. Acute on chronic renal failure, stage III 6. Chronic atrial fibrillation, not on anticoagulation secondary to intracranial bleeding. History of surgery for removal of blood clots secondary to intracranial hematoma. 7. Diabetes mellitus type 2 Plan: Continue on current medication regime ,monitoring and symptomatic treatment. PT/OT. Discharge planning in progress for potential subacute rehab. Further recommendations to follow. The impression and plan of care has been dictated as directed. : I performed a history and examination of this patient, discussed the same with the dictator. I agree with the dictator's note ,documented as a scribe. Any additional findings or plans will be noted.
[2017-10-10 16:46] LABS: Glucose,Whole Blood 213 mg/dL (75-99)
--- NOTE | 2017-10-10 18:23 | PN ---
PROGRESS NOTE Patient is seen for followup for acute kidney injury. She is currently sleeping but arousable. Patient denies any significant complaints. She is maintained on gentle IV hydration. Her renal function has improved significantly, with creatinine down to 1.3 from peak of 1.9 mg/dL. On examination, patient is comfortable. Blood pressure is 176/75; earlier today she was 174/76. Heart rate 60 per minute. Patient is afebrile. EXAMINATION OF THE HEART: S1, S2. EXAMINATION OF LUNGS: Bilateral breath sounds are heard. ABDOMEN: Soft, non-tender. Examination of lower extremities shows no evidence of edema. 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 Patient's right arm is in a sling. Labs show sodium 140, potassium 4.1, chloride 103, BUN 34, serum creatinine 1.3, hemoglobin 11.6 g/dL. ASSESSMENT: 1. Acute kidney injury, prerenal, currently significantly improved. I will discontinue the IV fluids, as blood pressure is running high. 2. Hypertension, maintained on Norvasc, hydralazine, and remains uncontrolled. I will discontinue the saline and we can add Coreg if blood pressure remains elevated. 3. Chronic kidney disease secondary to nephrosclerosis with previous creatinine at 1.1 in May of 2016. Prior to that her serum creatinine had been at about 0.8 mg/dL, NKF stage III. 4. Status post fall and right humerus fracture, currently in sling. PLAN: Discontinue IV fluids. Add Coreg if blood pressure remains elevated. MMODL / IJN: [id number] /
[2017-10-10 20:08] LABS: Glucose,Whole Blood 236 mg/dL (75-99)
[2017-10-10] MEDS: INSULIN DETEMIR 100 UNIT/ML 10 ML VIAL SQ SCH (22:22)
[2017-10-11 07:03] LABS: Glucose,Whole Blood 97 mg/dL (75-99)
[2017-10-11] MEDS: INSULIN ASPART 100 UNIT/ML 1 ML 10 ML VIAL SQ SCH ×4 (07:13→21:58)
[2017-10-11] MEDS: SYMBICORT 160-4.5 MCG INHALER INHALATION SCH ×2 (07:17→19:57)
[2017-10-11] MEDS: IPRATROPIUM-ALBUTEROL 3 ML NEB INHALATION SCH ×4 (07:17→19:57)
--- NOTE | 2017-10-11 07:37 | P.PN ---
Subjective Progress Note Date: 10/11/17 This is a 72-year-old female who is being followed by orthopedics for right proximal humerus fracture. Patient denies any new symptoms or complaints today. Patient denies any fever/chills, numbness, weakness, tingling, abdominal pain, shortness of breath or chest pain. Objective - Vital Signs Vital signs: Vital Signs Temp 98.8 F 10/10/17 23:00 Pulse 66 10/11/17 07:17 Resp 16 10/10/17 23:00 BP 172/69 10/10/17 23:00 Pulse Ox 97 10/10/17 23:00 Intake & Output 10/10/17 10/11/17 10/11/17 18:59 06:59 18:59 Intake Total 120 1200 Balance 120 1200 Weight 78 kg Intake: IV 400 Sodium Chloride 0.9% 1, 400 000 ml @ 50 mls/hr IV . Q20H ALEXSANDER Rx#:[id number] Oral 120 800 Other: Voiding Method Bedpan Bedpan # Voids 2 1 - Exam On exam patient is alert and oriented 3 and lying comfortably in bed in no acute distress. There is swelling over the right shoulder. Patient has full range of motion of the right wrist and hand. Sensation intact. Capillary refill is less than 2 seconds. Radial pulses 2+. Right upper extremity is warm and well perfused. Neurovascular status and circulatory status are intact. - Labs CBC & Chem 7: 10/10/17 06:57 10/10/17 06:57 Labs: Abnormal Lab Results - Last 24 Hours (Table) 10/10/17 10/10/17 10/10/17 Range/Units 06:57 11:38 16:44 Carbon Dioxide 32 H (22-30) mmol/L BUN 34 H (7-17) mg/dL Creatinine 1.31 H (0.52-1.04) mg/dL Glucose 48 L* (74-99) mg/dL POC Glucose (mg/dL) 137 H 213 H (75-99) mg/dL 10/10/17 Range/Units 20:07 Carbon Dioxide (22-30) mmol/L BUN (7-17) mg/dL Creatinine (0.52-1.04) mg/dL Glucose (74-99) mg/dL POC Glucose (mg/dL) 236 H (75-99) mg/dL Assessment and Plan (1) Fracture of proximal end of right humerus Current Visit: Yes Status: Acute Code(s): S42.201A - UNSP FRACTURE OF UPPER END OF RIGHT HUMERUS, INIT SNOMED Code(s): 938403564 (2) Fall Current Visit: Yes Status: Acute Code(s): W19.XXXA - UNSPECIFIED FALL, INITIAL ENCOUNTER SNOMED Code(s): 9727794 Plan: 1. X-rays are reviewed and show a nondisplaced right proximal humerus fracture. 2. Maintain sling to the right upper extremity when out of bed. 3. Rest and ice the right shoulder. 4. No surgical intervention planned. Patient may follow up as an outpatient.
[2017-10-11 07:51] LABS: Basophils % (A) 0 %; Eosinophils # (A) 0.2 k/uL (0-0.7); Eosinophils % (A) 3 %; HCT 37.5 % (34.0-46.0); Lymphocytes # (A) 1.1 k/uL (1.0-4.8); Lymphocytes % (A) 15 %; MCH 26.2 pg (25.0-35.0); MCHC 32.1 g/dL (31.0-37.0); MCV 81.7 fL (80.0-100.0); Mean Platelet Volume 7.1; Monocytes # (A) 0.6 k/uL (0-1.0); Monocytes % (A) 8 %; Neutrophils # (A) 5.3 k/uL (1.3-7.7); Neutrophils % (A) 72 %; Platelet Count 189 k/uL (150-450); RBC 4.58 m/uL (3.80-5.40); WBC 7.4 k/uL (3.8-10.6)
[2017-10-11 08:06] LABS: Potassium 4.5 mmol/L (3.5-5.1)
[2017-10-11] MEDS: ACETAMINOPHEN TAB 325 MG TAB PO PRN ×2 (09:17→19:28)
[2017-10-11] MEDS: hydrALAZINE HCL 50 MG TAB PO SCH ×3 (09:19→21:58)
[2017-10-11] MEDS: GABAPENTIN 300 MG CAP PO SCH ×2 (09:20→21:58)
[2017-10-11] MEDS: LABETALOL 100 MG TAB PO SCH (09:20)
[2017-10-11] MEDS: amLODIPine 10 MG TAB PO SCH (09:20)
[2017-10-11] MEDS: DICYCLOMINE 10 MG CAP PO SCH ×3 (09:20→17:25)
[2017-10-11] MEDS: SERTRALINE 50 MG TAB PO SCH (09:21)
--- NOTE | 2017-10-11 09:28 | P.DS ---
Providers Date of admission: 10/07/17 14:30 Expected date of discharge: 10/11/17 Attending physician: Leatha Toledo Consults: 10/05/17 16:55 Consult Physician Stat Consulting Provider: Lisa Willingham Consult Reason/Comments: COPD, hypoxia Do you want consulting provider notified?: Yes Consult Physician Stat Consulting Provider: Dennis Tucker Consult Reason/Comments: Proximal humerus fracture Do you want consulting provider notified?: Yes 10/06/17 09:58 Consult Physician Routine Consulting Provider: Karolyn Arora Consult Reason/Comments: CHAITANYA Do you want consulting provider notified?: Yes Primary care physician: Lisa Willingham [place] [facility] Course: Final Diagnoses: 1. Stable post right humerus fracture with severe pain, improving 2. Multiple falls 3. Generalized weakness, and gait dysfunction 4. Hypertension 5. Acute on chronic renal failure, stage III 6. Chronic atrial fibrillation, not on anticoagulation secondary to intracranial bleeding. History of surgery for removal of blood clots secondary to intracranial hematoma. 7. Diabetes mellitus type 2 Hospital course:This a 72-year-old female admitted with right humerus fracture, gait dysfunction and multiple other medical issues. Evaluated by orthopedic surgery, nephrology ,PT OT. Maintained on gentle IV fluid hydration, Renal function improving . Significant clinical improvement. Patient has been cleared for discharge by all consults. Patient is being discharged to subacute rehab. in a stable condition with guarded prognosis. EXAM: GENERAL: Alert and oriented 3, wearing sling, no acute distress CARDIOVASCULAR: S1, S2 muffled. No murmur RESPIRATION: Breath sounds diminished in the bases. Occasional scattered rhonchi , no crackles. ABDOMEN: Soft, nontender . No guarding. Bowel sounds heard. NERVOUS SYSTEM: Cranial N 2-12 grossly normal. Diffuse weakness No focal deficits. The impression and plan of care has been dictated as directed. : I performed a history and examination of this patient, discussed the same with the dictator. I agree with the dictator's note ,documented as a scribe. Any additional findings or plans will be noted. Time taken: 35 minutes Patient Condition at Discharge: Stable Plan - Discharge Summary Discharge Rx Participant: No New Discharge Prescriptions: New Budesonide-Formot 160-4.5 Mcg [Symbicort 160-4.5 Mcg Inhaler] 2 puff INHALATION RT-BID #1 inh Polyethylene Glycol 3350 [Miralax] 17 gm PO DAILY PRN powd.pack PRN Reason: Constipation Sennosides [Senokot] 8.6 mg PO DAILY PRN tab PRN Reason: Constipation traMADol HCl [Ultram] 50 mg PO QID PRN #12 tab PRN Reason: Moderate To Severe Pain Continue Sertraline [Zoloft] 150 mg PO DAILY Insulin Detemir [Levemir Flexpen] 56 units SQ AC-SUPPER Acetaminophen Tab [Tylenol] 500 mg PO Q6HR PRN PRN Reason: Pain Gabapentin [Neurontin] 300 mg PO BID amLODIPine [Norvasc] 10 mg PO DAILY #30 tab Dicyclomine [Bentyl] 10 mg PO TID-W/MEALS Labetalol HCl 100 mg PO Q12H Ferrous Sulfate [Iron (65 MG Elemental)] 325 mg PO BID #60 tab Ipratropium-Albuterol Nebulize [Duoneb 0.5 mg-3 mg/3 ml Soln] 3 ml INHALATION RT-QID #0 Changed hydrALAZINE HCL 100 mg PO TID #90 Discontinued Potassium Chloride 8 meq PO DAILY Furosemide [Lasix] 40 mg PO DAILY #0 Discharge Medication List Insulin Detemir [Levemir Flexpen] 56 units SQ AC-SUPPER 01/04/14 [History] Sertraline [Zoloft] 150 mg PO DAILY 01/04/14 [History] Acetaminophen Tab [Tylenol] 500 mg PO Q6HR PRN 04/22/16 [History] Gabapentin [Neurontin] 300 mg PO BID 04/22/16 [History] amLODIPine [Norvasc] 10 mg PO DAILY #30 tab 05/04/16 [Rx] Dicyclomine [Bentyl] 10 mg PO TID-W/MEALS 03/21/17 [History] Labetalol HCl 100 mg PO Q12H 07/17/17 [History] Ferrous Sulfate [Iron (65 MG Elemental)] 325 mg PO BID #60 tab 07/19/17 [Rx] Budesonide-Formot 160-4.5 Mcg [Symbicort 160-4.5 Mcg Inhaler] 2 puff INHALATION RT-BID #1 inh 10/09/17 [Rx] Ipratropium-Albuterol Nebulize [Duoneb 0.5 mg-3 mg/3 ml Soln] 3 ml INHALATION RT -QID #0 10/09/17 [Rx] Polyethylene Glycol 3350 [Miralax] 17 gm PO DAILY PRN powd.pack 10/09/17 [Rx] Sennosides [Senokot] 8.6 mg PO DAILY PRN tab 10/09/17 [Rx] hydrALAZINE HCL 100 mg PO TID #90 10/09/17 [Rx] traMADol HCl [Ultram] 50 mg PO QID PRN #12 tab 10/09/17 [Rx] Follow up Appointment(s)/Referral(s): Lisa Willingham MD [Primary Care Provider] - 10/16/17 2:30 pm () Karolyn Arora MD [STAFF PHYSICIAN] - 1 Week (Dr. Arora's office will be calling patient with an appointment date and time. ) Dennis Tucker DO [Doctor of Osteopathic Medicine] - 10/23/17 1:00 pm [facility] Visiting Nurse, [NON-STAFF] - 1 Week Ambulatory/Diagnostic Orders: Complete Blood Count w/diff [LAB.AMB] Time Frame: 3 Days, Location: None Selected Patient Instructions/Handouts: Tramadol (By mouth), Budesonide/Formoterol (By breathing), Elbow Fracture (DC), Syncope (DC), COPD (Chronic Obstructive Pulmonary Disease) (DC), Fall Prevention (DC) Activity/Diet/Wound Care/Special Instructions: Maintain sling to right upper extremity as advised per ortho. DIet: consist. carb accu cheks achs, maintain log, take to F/U visit with PCP for further rec. Activity: limited till F/U 3lnc O2
[2017-10-11] MEDS ORDERED: LABETALOL 100 MG TAB PO ONE (11:00)
[2017-10-11 11:07] LABS: Glucose,Whole Blood 128 mg/dL (75-99)
--- NOTE | 2017-10-11 11:48 | PN ---
PROGRESS NOTE DATE OF SERVICE: 10/11/2017. HISTORY: The patient is seen for followup for acute kidney injury, which was mainly prerenal. Her renal function is improved. IV fluids were discontinued. Serum creatinine was down to 1.3 mg/dL. Today it is at 1.25. Currently, patient is awaiting placement. PHYSICAL EXAMINATION: Blood pressure was elevated 201/83, heart rate 65 per minute. She is afebrile. Examination of the heart S1, S2. Examination lungs bilateral breath sounds are heard. Abdomen is soft, nontender. Examination of lower extremities shows no evidence of edema. 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 LABS: Sodium 139, potassium 4.5, BUN 28, serum creatinine 1.25, hemoglobin 12.0. ASSESSMENT: 1. Acute kidney injury, prerenal, currently significantly improved. Continue off of IV fluids. 2. Chronic kidney disease, NKF stage III, secondary to nephrosclerosis. The urinalysis is quite benign with no protein or blood. 3. Status post fall and fracture of the right humerus, currently in a sling. 4. Hypertension, uncontrolled. We will increase the labetalol to 200 mg b.i.d. and continue off of IV fluids. PLAN: Increase labetalol. The patient is stable for discharge from Nephrology standpoint. He should follow up as outpatient in about 2 to 3 weeks time. MMODL / IJN: [id number] /
[2017-10-11 12:14] LABS: Glucose,Whole Blood 116 mg/dL (75-99)
[2017-10-11 17:02] LABS: Glucose,Whole Blood 140 mg/dL (75-99)
[2017-10-11 19:52] LABS: Glucose,Whole Blood 219 mg/dL (75-99)
[2017-10-11] MEDS: INSULIN DETEMIR 100 UNIT/ML 10 ML VIAL SQ SCH (21:59)
[2017-10-11] MEDS: LABETALOL 200 MG TAB PO SCH (22:27)
[2017-10-12] MEDS: HEPARIN SODIUM,PORCINE 5,000 UNIT/ML 1 ML VIAL SQ SCH ×4 (00:22→22:52)
[2017-10-12 07:10] LABS: Basophils % (A) 0 %; Eosinophils # (A) 0.2 k/uL (0-0.7); Eosinophils % (A) 1 %; HCT 37.7 % (34.0-46.0); HGB 11.8 gm/dL (11.4-16.0); Hypochromasia Slight; Lymphocytes # (A) 0.9 k/uL (1.0-4.8); Lymphocytes % (A) 7 %; MCH 26.1 pg (25.0-35.0); MCHC 31.4 g/dL (31.0-37.0); MCV 83.1 fL (80.0-100.0); Mean Platelet Volume 7.1; Monocytes # (A) 0.7 k/uL (0-1.0); Monocytes % (A) 5 %; Neutrophils # (A) 10.9 k/uL (1.3-7.7); Neutrophils % (A) 85 %; Platelet Count 195 k/uL (150-450); RBC 4.54 m/uL (3.80-5.40); WBC 12.8 k/uL (3.8-10.6)
[2017-10-12] MEDS: SYMBICORT 160-4.5 MCG INHALER INHALATION SCH ×2 (07:23→20:57)
[2017-10-12] MEDS: IPRATROPIUM-ALBUTEROL 3 ML NEB INHALATION SCH ×4 (07:23→20:57)
[2017-10-12 07:27] LABS: Calcium 9.3 mg/dL (8.4-10.2); Potassium 4.7 mmol/L (3.5-5.1)
[2017-10-12 07:28] LABS: Glucose,Whole Blood 148 mg/dL (75-99)
[2017-10-12] MEDS: SERTRALINE 50 MG TAB PO SCH (07:59)
[2017-10-12] MEDS: INSULIN ASPART 100 UNIT/ML 1 ML 10 ML VIAL SQ SCH ×4 (07:59→20:41)
[2017-10-12] MEDS: GABAPENTIN 300 MG CAP PO SCH ×2 (08:00→20:34)
[2017-10-12] MEDS: LABETALOL 200 MG TAB PO SCH ×2 (08:00→20:34)
[2017-10-12] MEDS: amLODIPine 10 MG TAB PO SCH (08:00)
[2017-10-12] MEDS: hydrALAZINE HCL 50 MG TAB PO SCH ×3 (08:00→22:47)
[2017-10-12] MEDS: DICYCLOMINE 10 MG CAP PO SCH ×3 (08:00→16:59)
--- NOTE | 2017-10-12 10:28 | P.PN ---
Subjective Patient is seen in follow-up for acute kidney injury. Renal function is stable with creatinine of 1.27 today. She is currently resting in bed. Denies chest pain or shortness of breath. Admits to good urine output. Vital signs are stable. General: The patient appeared well nourished and normally developed. HEENT: Head exam is unremarkable. Neck is without jugular venous distension. LUNGS: Lungs are clear to auscultation and percussion. Breath sounds decreased. HEART: Rate and Rhythm are regular. First and second heart sounds normal. No murmurs, rubs or gallops. ABDOMEN: Abdominal exam reveals normal bowel sounds. Non-tender and non- distended. No evidence of peritonitis. EXTREMITITES: No clubbing, cyanosis, or edema. Objective - Vital Signs Vital signs: Vital Signs Temp 98.1 F 10/12/17 05:05 Pulse 72 10/12/17 07:37 Resp 20 10/12/17 05:05 BP 161/66 10/12/17 05:05 Pulse Ox 97 10/12/17 05:05 Intake & Output 10/11/17 10/12/17 10/12/17 18:59 06:59 18:59 Intake Total 590 Balance 590 Intake: Oral 590 Other: Voiding Method Bedpan Bedpan # Voids 3 1 - Labs CBC & Chem 7: 10/12/17 06:33 10/12/17 06:33 Labs: Abnormal Lab Results - Last 24 Hours (Table) 10/11/17 10/11/17 10/11/17 Range/Units 11:06 12:03 17:01 WBC (3.8-10.6) k/uL Neutrophils # (1.3-7.7) k/uL Lymphocytes # (1.0-4.8) k/uL Sodium (137-145) mmol/L BUN (7-17) mg/dL Creatinine (0.52-1.04) mg/dL Glucose (74-99) mg/dL POC Glucose (mg/dL) 128 H 116 H 140 H (75-99) mg/dL 10/11/17 10/12/17 10/12/17 Range/Units 19:51 06:33 06:33 WBC 12.8 H (3.8-10.6) k/uL Neutrophils # 10.9 H (1.3-7.7) k/uL Lymphocytes # 0.9 L (1.0-4.8) k/uL Sodium 136 L (137-145) mmol/L BUN 27 H (7-17) mg/dL Creatinine 1.27 H (0.52-1.04) mg/dL Glucose 153 H (74-99) mg/dL POC Glucose (mg/dL) 219 H (75-99) mg/dL 10/12/17 Range/Units 07:27 WBC (3.8-10.6) k/uL Neutrophils # (1.3-7.7) k/uL Lymphocytes # (1.0-4.8) k/uL Sodium (137-145) mmol/L BUN (7-17) mg/dL Creatinine (0.52-1.04) mg/dL Glucose (74-99) mg/dL POC Glucose (mg/dL) 148 H (75-99) mg/dL Assessment and Plan Plan: Assessment: 1. Acute kidney injury mostly prerenal. Renal function stable with creatinine at 1.27 today. 2. Chronic kidney disease stage III secondary to nephrosclerosis. Baseline creatinine in the range of 1-1.2. 3. Status post fall with fracture of the right humerus currently resting. 4. Hypertension with chronic kidney disease. Plan: Encourage oral intake. Remains off all IV fluids. Avoid nephrotoxins. Labetalol dose was increased yesterday. May increase further over the next 24- 48 hours if systolic blood pressure persistently greater than 160. Awaits placement to rehab.
[2017-10-12 11:57] LABS: Glucose,Whole Blood 110 mg/dL (75-99)
[2017-10-12] MEDS: ACETAMINOPHEN TAB 325 MG TAB PO PRN (13:12)
--- NOTE | 2017-10-12 16:43 | PN ---
PROGRESS NOTE DATE OF SERVICE: 10/12/2017 This 72-year-old woman who was admitted with right humerus fracture and severe pain is being closely monitored. No chest pain or palpitations. No fever. PHYSICAL EXAMINATION: On exam, alert and oriented x3. Pulse 72, blood pressure is 161/66, respiration 20, temperature 98.1, pulse ox 97% on 3 L. HEENT: Conjunctivae normal. Oral mucosa moist. Neck is no jugular venous distention. No carotid bruit. No lymph node enlargement. CARDIOVASCULAR: S1, S2 muffled. RESPIRATORY: Breath sounds diminished at the bases. A few scattered rhonchi, no crackles. ABDOMEN: Soft, nontender. LEGS; No edema, no swelling. NERVOUS SYSTEM: No focal deficits. EXAMINATION OF RIGHT ARM: Status post fracture. LABS: Labs are noted. ASSESSMENT: 1. Status post right humerus fracture with severe pain. 2. Gait dysfunction. 3. Multiple falls. 4. Generalized weakness. 5. Hypertension. 6. Acute on chronic renal failure stage III. 7. Chronic atrial fibrillation, not on anticoagulation secondary to intracranial bleeding. 8. History of surgery for removal of blood clots secondary to intracranial hematoma. 9. Diabetes mellitus type 2. RECOMMENDATIONS AND DISCUSSION: In this 72-year-old woman who presented with multiple complex medical issues, will monitor the patient closely. Continue the current medications and symptomatic treatment. Case management and social worker palliative care to work towards a safe discharge. Otherwise, continue to monitor. Possible ECF rehab. Apparently there has been technical issues regarding the ECF placement at this time. Please refer to the social worker palliative care notes for further information. MMODL / IJN: [id number] /
[2017-10-12 17:57] LABS: Glucose,Whole Blood 163 mg/dL (75-99)
[2017-10-12 20:37] LABS: Glucose,Whole Blood 219 mg/dL (75-99)
[2017-10-12] MEDS: INSULIN DETEMIR 100 UNIT/ML 10 ML VIAL SQ SCH (22:48)
[2017-10-13] MEDS: ACETAMINOPHEN TAB 325 MG TAB PO PRN ×2 (02:19→22:28)
[2017-10-13] MEDS: IPRATROPIUM-ALBUTEROL 3 ML NEB INHALATION SCH ×4 (07:01→19:10)
[2017-10-13] MEDS: SYMBICORT 160-4.5 MCG INHALER INHALATION SCH ×2 (07:01→19:10)
[2017-10-13] MEDS: INSULIN ASPART 100 UNIT/ML 1 ML 10 ML VIAL SQ SCH ×4 (07:39→22:06)
[2017-10-13] MEDS: LABETALOL 200 MG TAB PO SCH ×2 (07:45→20:32)
[2017-10-13] MEDS: HEPARIN SODIUM,PORCINE 5,000 UNIT/ML 1 ML VIAL SQ SCH ×3 (07:45→22:30)
[2017-10-13] MEDS: SERTRALINE 50 MG TAB PO SCH (07:45)
[2017-10-13] MEDS: GABAPENTIN 300 MG CAP PO SCH ×2 (07:46→20:32)
[2017-10-13] MEDS: amLODIPine 10 MG TAB PO SCH (07:46)
[2017-10-13] MEDS: hydrALAZINE HCL 50 MG TAB PO SCH ×3 (07:46→23:18)
[2017-10-13] MEDS: DICYCLOMINE 10 MG CAP PO SCH ×3 (07:46→17:38)
[2017-10-13 07:57] LABS: Glucose,Whole Blood 122 mg/dL (75-99)
[2017-10-13 08:34] LABS: Calcium 9.2 mg/dL (8.4-10.2); Potassium 4.5 mmol/L (3.5-5.1)
[2017-10-13] MEDS ORDERED: LACTULOSE 20 GM/30 ML CUP PO PRN (09:59)
--- NOTE | 2017-10-13 09:59 | P.PN ---
Subjective Patient is seen in follow-up for acute kidney injury. Renal function is stable with creatinine of 1.3 today. She is currently resting in bed. Denies chest pain or shortness of breath. Good urine output. Complains of constipation. Vital signs are stable. General: The patient appeared well nourished and normally developed. HEENT: Head exam is unremarkable. Neck is without jugular venous distension. LUNGS: Lungs are clear to auscultation and percussion. Breath sounds decreased. HEART: Rate and Rhythm are regular. First and second heart sounds normal. No murmurs, rubs or gallops. ABDOMEN: Abdominal exam reveals normal bowel sounds. Non-tender and non- distended. No evidence of peritonitis. EXTREMITITES: No clubbing, cyanosis, or edema. Objective - Vital Signs Vital signs: Vital Signs Temp 98.3 F 10/13/17 07:00 Pulse 62 10/13/17 07:16 Resp 18 10/13/17 07:00 BP 145/58 10/13/17 07:00 Pulse Ox 98 10/13/17 07:02 Intake & Output 10/12/17 10/13/17 10/13/17 18:59 06:59 18:59 Intake Total 200 0 Balance 200 0 Intake: Oral 200 0 Other: Voiding Method Bedpan # Voids 0 1 # Bowel Movements 1 4 - Labs CBC & Chem 7: 10/12/17 06:33 10/13/17 07:49 Labs: Abnormal Lab Results - Last 24 Hours (Table) 10/12/17 10/12/17 10/12/17 Range/Units 11:55 17:44 20:01 Sodium (137-145) mmol/L BUN (7-17) mg/dL Creatinine (0.52-1.04) mg/dL Glucose (74-99) mg/dL POC Glucose (mg/dL) 110 H 163 H 219 H (75-99) mg/dL 10/13/17 10/13/17 Range/Units 07:06 07:49 Sodium 135 L (137-145) mmol/L BUN 28 H (7-17) mg/dL Creatinine 1.30 H (0.52-1.04) mg/dL Glucose 117 H (74-99) mg/dL POC Glucose (mg/dL) 122 H (75-99) mg/dL Assessment and Plan Plan: Assessment: 1. Acute kidney injury mostly prerenal. Renal function stable with creatinine at 1.3 today. 2. Chronic kidney disease stage III secondary to nephrosclerosis. Baseline creatinine in the range of 1-1.2. 3. Status post fall with fracture of the right humerus currently resting. 4. Hypertension with chronic kidney disease. Better today. Plan: Encourage oral intake. Remains off all IV fluids. Avoid nephrotoxins. Awaits placement to rehab. Lactulose PRN constipation.
[2017-10-13 11:51] LABS: Glucose,Whole Blood 100 mg/dL (75-99)
--- NOTE | 2017-10-13 15:44 | PN ---
PROGRESS NOTE DATE OF SERVICE: 10/13/2017 This 72-year-old woman was admitted after right humerus fracture with severe pain, is being closely monitored. No chest pain. No palpitations. No fever. ECF rehab is being explored. EXAM: Alert and oriented x3. Pulse 61, blood pressure 143/58, respiration 18, temperature 98.2, pulse ox 97% on 2 L. HEENT: Conjunctivae normal. NECK: No jugular venous distention. CARDIOVASCULAR: S1, S2. RESPIRATORY: Breath sounds diminished in the bases. A few scattered rhonchi and crackles. ABDOMEN: Soft, nontender. No mass palpable. LEGS: No edema. NERVOUS SYSTEM: No focal deficits. LABS: WBC 12.8, hemoglobin 11.2, sodium 135. ASSESSMENT: 1. Status post right humerus fracture with severe pain. 2. Gait dysfunction. 3. Multiple falls. 4. Generalized weakness. 5. Hypertension. 6. Chronic renal failure, stage III. 7. Acute on chronic renal failure stage III. 8. Chronic atrial fibrillation, not on anticoagulation secondary to intracranial bleeding. 9. History of surgery for removal of blood clot secondary to tracheal hematoma. 10.Diabetes mellitus type 2. RECOMMENDATIONS AND DISCUSSION: I recommend to continue current medications, continue monitoring, and symptomatic treatment. PT, OT evaluation. Monitor closely. Guarded prognosis. Further recommendations to follow. MMODL / IJN: [id number] /
[2017-10-13 16:49] LABS: Glucose,Whole Blood 114 mg/dL (75-99)
[2017-10-13 21:18] LABS: Glucose,Whole Blood 152 mg/dL (75-99)
[2017-10-13] MEDS: INSULIN DETEMIR 100 UNIT/ML 10 ML VIAL SQ SCH (22:06)
[2017-10-14] MEDS: SYMBICORT 160-4.5 MCG INHALER INHALATION SCH ×2 (07:22→21:01)
[2017-10-14] MEDS: IPRATROPIUM-ALBUTEROL 3 ML NEB INHALATION SCH ×4 (07:22→21:01)
[2017-10-14 07:50] LABS: Glucose,Whole Blood 73 mg/dL (75-99)
[2017-10-14 07:50] LABS: Glucose,Whole Blood 54 mg/dL (75-99)
--- NOTE | 2017-10-14 08:09 | P.PN ---
Subjective Progress Note Date: 10/14/17 This is a 72-year-old female who is being followed by orthopedics for right proximal humerus fracture. Patient denies any new symptoms or complaints today. Patient denies any fever/chills, numbness, weakness, tingling, abdominal pain, shortness of breath or chest pain. Objective - Vital Signs Vital signs: Vital Signs Temp 96.6 F L 10/14/17 07:00 Pulse 66 10/14/17 07:34 Resp 20 10/14/17 07:00 BP 194/78 10/14/17 07:00 Pulse Ox 94 L 10/14/17 07:00 Intake & Output 10/13/17 10/14/17 10/14/17 18:59 06:59 18:59 Intake Total 0 Balance 0 Intake: Oral 0 Other: # Voids 0 1 # Bowel Movements 1 0 - Exam On exam patient is alert and oriented 3 and lying comfortably in bed in no acute distress. Patient has full range of motion of the right wrist and hand. Sensation intact. Capillary refill is less than 2 seconds. Right upper extremity is warm and well perfused. Neurovascular status and circulatory status are intact. - Labs CBC & Chem 7: 10/12/17 06:33 10/13/17 07:49 Labs: Abnormal Lab Results - Last 24 Hours (Table) 10/13/17 10/13/17 10/13/17 Range/Units 07:49 11:49 16:46 Sodium 135 L (137-145) mmol/L BUN 28 H (7-17) mg/dL Creatinine 1.30 H (0.52-1.04) mg/dL Glucose 117 H (74-99) mg/dL POC Glucose (mg/dL) 100 H 114 H (75-99) mg/dL 10/13/17 10/14/17 10/14/17 Range/Units 21:16 07:15 07:34 Sodium (137-145) mmol/L BUN (7-17) mg/dL Creatinine (0.52-1.04) mg/dL Glucose (74-99) mg/dL POC Glucose (mg/dL) 152 H 54 L 73 L (75-99) mg/dL Assessment and Plan (1) Fracture of proximal end of right humerus Current Visit: Yes Status: Acute Code(s): S42.201A - UNSP FRACTURE OF UPPER END OF RIGHT HUMERUS, INIT SNOMED Code(s): 717837657 (2) Fall Current Visit: Yes Status: Acute Code(s): W19.XXXA - UNSPECIFIED FALL, INITIAL ENCOUNTER SNOMED Code(s): 2086352 Plan: 1. X-rays are reviewed and show a nondisplaced right proximal humerus fracture. 2. Maintain sling to the right upper extremity when out of bed. 3. Rest and ice the right shoulder. 4. No surgical intervention planned. Patient may follow up as an outpatient.
[2017-10-14] MEDS: hydrALAZINE HCL 50 MG TAB PO SCH ×2 (08:38→16:21)
[2017-10-14] MEDS: amLODIPine 10 MG TAB PO SCH (08:38)
[2017-10-14] MEDS: ACETAMINOPHEN TAB 325 MG TAB PO PRN (08:39)
[2017-10-14] MEDS: SERTRALINE 50 MG TAB PO SCH (08:39)
[2017-10-14] MEDS: LABETALOL 200 MG TAB PO SCH ×2 (08:39→22:22)
[2017-10-14] MEDS: DICYCLOMINE 10 MG CAP PO SCH ×3 (08:39→16:21)
[2017-10-14] MEDS: GABAPENTIN 300 MG CAP PO SCH ×2 (08:39→22:22)
[2017-10-14] MEDS: HEPARIN SODIUM,PORCINE 5,000 UNIT/ML 1 ML VIAL SQ SCH ×2 (08:39→16:21)
[2017-10-14] MEDS: INSULIN ASPART 100 UNIT/ML 1 ML 10 ML VIAL SQ SCH ×4 (08:39→22:31)
[2017-10-14 11:44] VITALS: BMI 27.7
[2017-10-14 13:19] LABS: Glucose,Whole Blood 150 mg/dL (75-99)
--- NOTE | 2017-10-14 15:01 | P.PN ---
Subjective Patient is seen in follow-up for acute kidney injury. Renal function stable - cr 1.3 as of yesterday. She is currently resting in bed. Denies chest pain or shortness of breath. Good urine output. Had BM yesterday. Vital signs are stable. General: The patient appeared well nourished and normally developed. HEENT: Head exam is unremarkable. Neck is without jugular venous distension. LUNGS: Lungs are clear to auscultation and percussion. Breath sounds decreased. HEART: Rate and Rhythm are regular. First and second heart sounds normal. No murmurs, rubs or gallops. ABDOMEN: Abdominal exam reveals normal bowel sounds. Non-tender and non- distended. No evidence of peritonitis. EXTREMITITES: No clubbing, cyanosis, or edema. Objective - Vital Signs Vital signs: Vital Signs Temp 96.9 F L 10/14/17 14:50 Pulse 62 10/14/17 14:50 Resp 16 10/14/17 14:50 BP 126/45 10/14/17 14:50 Pulse Ox 92 L 10/14/17 14:50 Intake & Output 10/13/17 10/14/17 10/14/17 18:59 06:59 18:59 Intake Total 0 400 Balance 0 400 Weight 78 kg Intake: Oral 0 400 Other: # Voids 0 1 2 # Bowel Movements 1 0 3 - Labs CBC & Chem 7: 10/12/17 06:33 10/13/17 07:49 Labs: Abnormal Lab Results - Last 24 Hours (Table) 10/13/17 10/13/17 10/14/17 Range/Units 16:46 21:16 07:15 POC Glucose (mg/dL) 114 H 152 H 54 L (75-99) mg/dL 10/14/17 10/14/17 Range/Units 07:34 12:31 POC Glucose (mg/dL) 73 L 150 H (75-99) mg/dL Assessment and Plan Plan: Assessment: 1. Acute kidney injury mostly prerenal. Renal function stable with creatinine at 1.3 as of yesterday. 2. Chronic kidney disease stage III secondary to nephrosclerosis. Baseline creatinine in the range of 1-1.2. 3. Status post fall with fracture of the right humerus currently resting. 4. Hypertension with chronic kidney disease. Better today. Plan: Encourage oral intake. Remains off all IV fluids. Avoid nephrotoxins. Awaits placement to rehab. Lactulose PRN constipation.
[2017-10-14 17:03] LABS: Glucose,Whole Blood 174 mg/dL (75-99)
[2017-10-14 20:49] LABS: Glucose,Whole Blood 177 mg/dL (75-99)
[2017-10-14] MEDS: INSULIN DETEMIR 100 UNIT/ML 10 ML VIAL SQ SCH (22:32)
[2017-10-15] MEDS: hydrALAZINE HCL 50 MG TAB PO SCH ×4 (02:04→21:06)
[2017-10-15] MEDS: HEPARIN SODIUM,PORCINE 5,000 UNIT/ML 1 ML VIAL SQ SCH ×3 (02:04→17:29)
[2017-10-15 02:37] LABS: Glucose,Whole Blood 119 mg/dL (75-99)
[2017-10-15] MEDS: ACETAMINOPHEN TAB 325 MG TAB PO PRN ×4 (04:18→21:10)
[2017-10-15 07:17] LABS: Glucose,Whole Blood 65 mg/dL (75-99)
[2017-10-15] MEDS: LABETALOL 200 MG TAB PO SCH ×2 (07:41→21:06)
[2017-10-15] MEDS: amLODIPine 10 MG TAB PO SCH (07:41)
[2017-10-15] MEDS: GABAPENTIN 300 MG CAP PO SCH ×2 (07:41→21:06)
[2017-10-15] MEDS: DICYCLOMINE 10 MG CAP PO SCH ×3 (07:41→17:28)
[2017-10-15] MEDS: SERTRALINE 50 MG TAB PO SCH (07:41)
[2017-10-15] MEDS: INSULIN ASPART 100 UNIT/ML 1 ML 10 ML VIAL SQ SCH ×4 (07:42→21:07)
[2017-10-15 07:48] LABS: Glucose,Whole Blood 66 mg/dL (75-99)
[2017-10-15 07:48] LABS: Glucose,Whole Blood 92 mg/dL (75-99)
--- NOTE | 2017-10-15 08:22 | P.PN ---
Subjective Progress Note Date: 10/15/17 This is a 72-year-old female who is being followed by orthopedics for right proximal humerus fracture. Patient denies any new symptoms or complaints today. Patient denies any fever/chills, numbness, weakness, tingling, abdominal pain, shortness of breath or chest pain. Objective - Vital Signs Vital signs: Vital Signs Temp 97.6 F 10/15/17 06:13 Pulse 60 10/15/17 06:13 Resp 17 10/15/17 06:13 BP 133/67 10/15/17 06:13 Pulse Ox 98 10/15/17 06:13 Intake & Output 10/14/17 10/15/17 10/15/17 18:59 06:59 18:59 Intake Total 400 Balance 400 Weight 78 kg Intake: Oral 400 Other: # Voids 0 3 # Bowel Movements 1 1 - Exam On exam patient is alert and oriented 3 and lying comfortably in bed in no acute distress.Swelling over the right shoulder is improving. Patient has full range of motion of the right wrist and hand. Sensation intact. Capillary refill is less than 2 seconds. Right upper extremity is warm and well perfused. Neurovascular status and circulatory status are intact. - Labs CBC & Chem 7: 10/12/17 06:33 10/13/17 07:49 Labs: Abnormal Lab Results - Last 24 Hours (Table) 10/14/17 10/14/17 10/14/17 Range/Units 12:31 16:46 20:45 POC Glucose (mg/dL) 150 H 174 H 177 H (75-99) mg/dL 10/15/17 10/15/17 10/15/17 Range/Units 02:25 07:08 07:25 POC Glucose (mg/dL) 119 H 65 L 66 L (75-99) mg/dL Assessment and Plan (1) Fracture of proximal end of right humerus Current Visit: Yes Status: Acute Code(s): S42.201A - UNSP FRACTURE OF UPPER END OF RIGHT HUMERUS, INIT SNOMED Code(s): 817413057 (2) Fall Current Visit: Yes Status: Acute Code(s): W19.XXXA - UNSPECIFIED FALL, INITIAL ENCOUNTER SNOMED Code(s): 4105875 Plan: 1. X-rays are reviewed and show a nondisplaced right proximal humerus fracture. 2. Maintain sling to the right upper extremity when out of bed. 3. Rest and ice the right shoulder. 4. No surgical intervention planned. Patient may follow up as an outpatient.
[2017-10-15] MEDS: IPRATROPIUM-ALBUTEROL 3 ML NEB INHALATION SCH ×4 (08:32→20:46)
[2017-10-15] MEDS: SYMBICORT 160-4.5 MCG INHALER INHALATION SCH ×2 (08:32→20:46)
--- NOTE | 2017-10-15 11:30 | P.PN ---
Subjective Patient is seen in follow-up for acute kidney injury. Renal function stable - cr 1.3 as of 10/13. She is currently resting in bed. Denies chest pain or shortness of breath. Good urine output. Constipation resolved. Vital signs are stable. General: The patient appeared well nourished and normally developed. HEENT: Head exam is unremarkable. Neck is without jugular venous distension. LUNGS: Lungs are clear to auscultation and percussion. Breath sounds decreased. HEART: Rate and Rhythm are regular. First and second heart sounds normal. No murmurs, rubs or gallops. ABDOMEN: Abdominal exam reveals normal bowel sounds. Non-tender and non- distended. No evidence of peritonitis. EXTREMITITES: No clubbing, cyanosis, or edema. Objective - Vital Signs Vital signs: Vital Signs Temp 97.6 F 10/15/17 06:13 Pulse 64 10/15/17 08:45 Resp 17 10/15/17 06:13 BP 133/67 10/15/17 06:13 Pulse Ox 98 10/15/17 06:13 Intake & Output 10/14/17 10/15/17 10/15/17 18:59 06:59 18:59 Intake Total 400 Balance 400 Weight 78 kg Intake: Oral 400 Other: # Voids 0 3 2 # Bowel Movements 1 1 1 - Labs CBC & Chem 7: 10/12/17 06:33 10/13/17 07:49 Labs: Abnormal Lab Results - Last 24 Hours (Table) 10/14/17 10/14/17 10/14/17 Range/Units 12:31 16:46 20:45 POC Glucose (mg/dL) 150 H 174 H 177 H (75-99) mg/dL 10/15/17 10/15/17 10/15/17 Range/Units 02:25 07:08 07:25 POC Glucose (mg/dL) 119 H 65 L 66 L (75-99) mg/dL Assessment and Plan Plan: Assessment: 1. Acute kidney injury mostly prerenal. Renal function stable with creatinine at 1.3 as of 10/13. 2. Chronic kidney disease stage III secondary to nephrosclerosis. Baseline creatinine in the range of 1-1.2. 3. Status post fall with fracture of the right humerus currently resting. 4. Hypertension with chronic kidney disease. Plan: Encourage oral intake. Remains off all IV fluids. Avoid nephrotoxins. Awaits placement to rehab. Lactulose PRN constipation. Stable to be discharged from nephrology standpoint. Follow up outpatient in the next 2 weeks.
[2017-10-15 12:36] LABS: Glucose,Whole Blood 63 mg/dL (75-99)
[2017-10-15 12:39] LABS: Glucose,Whole Blood 75 mg/dL (75-99)
[2017-10-15 17:02] LABS: Glucose,Whole Blood 120 mg/dL (75-99)
--- NOTE | 2017-10-15 17:10 | P.PN ---
Subjective Progress Note Date: 10/14/17 Progress note being dictated for Dr. Toledo. Interval history: This a 72-year-old female admitted with right humerus fracture , gait dysfunction and multiple other medical issues. Evaluated by PT OT and subacute rehab recommended at discharge. Maintained on gentle IV fluid hydration, Renal function improving . Denies chest pain, palpitations.Afebrile. 10/14/2017 Sling maintained on right upper extremity, pain controlled. Renal function stable. Denies chest pain, palpitations or increased shortness of breath. Objective - Vital Signs Vital signs: Vital Signs Temp 98.3 F 10/15/17 13:30 Pulse 68 10/15/17 16:56 Resp 16 10/15/17 16:56 BP 154/64 10/15/17 13:30 Pulse Ox 97 10/15/17 13:30 Intake & Output 10/14/17 10/15/17 10/15/17 18:59 06:59 18:59 Intake Total 400 Balance 400 Weight 78 kg Intake: Oral 400 Other: # Voids 0 3 1 # Bowel Movements 1 1 1 - Exam PHYSICAL EXAM: VITAL SIGNS: Temperature 96.9 oral, pulse 62, respiratory rate 16, blood pressure 126/45, O2 sat 92% on 2 L nasal cannula GENERAL: Sitting up in bed, wearing sling, no acute distress HEENT: Conjunctivae normal. eyes normal. Oral mucosa moist NECK: No JVD. No thyroid enlargement. No LNs CARDIOVASCULAR: S1, S2 muffled. No murmur RESPIRATION: Breath sounds diminished in the bases. Occasional scattered rhonchi, no crackles ABDOMEN: Soft, nontender . No guarding. no masses palpable. Bowel sounds heard. Extremities: Status post right humerus fracture, wearing sling,LEGS: No edema. no swelling PSYCHIATRY: Alert and oriented -3, mood and affect normal. NERVOUS SYSTEM: Cranial N 2-12 grossly normal. Diffuse weakness No focal deficits. - Labs CBC & Chem 7: 10/12/17 06:33 10/13/17 07:49 Labs: Abnormal Lab Results - Last 24 Hours (Table) 10/14/17 10/15/17 10/15/17 Range/Units 20:45 02:25 07:08 POC Glucose (mg/dL) 177 H 119 H 65 L (75-99) mg/dL 10/15/17 10/15/17 10/15/17 Range/Units 07:25 12:19 16:45 POC Glucose (mg/dL) 66 L 63 L 120 H (75-99) mg/dL Assessment and Plan Assessment: 1. Status post right humerus fracture with severe pain 2. Multiple falls 3. Generalized weakness, and gait dysfunction 4. Hypertension 5. Acute on chronic renal failure, stage III 6. Chronic atrial fibrillation, not on anticoagulation secondary to intracranial bleeding. History of surgery for removal of blood clots secondary to intracranial hematoma. 7. Diabetes mellitus type 2 Plan: Continue on current medication regime ,monitoring and symptomatic treatment. Encourage oral intake. PT/OT. Discharge planning in progress for subacute rehab. The impression and plan of care has been dictated as directed. : I performed a history and examination of this patient, discussed the same with the dictator. I agree with the dictator's note ,documented as a scribe. Any additional findings or plans will be noted.
--- NOTE | 2017-10-15 17:14 | P.PN ---
Subjective Progress Note Date: 10/15/17 Progress note being dictated for Dr. Toledo. Interval history: This a 72-year-old female admitted with right humerus fracture , gait dysfunction and multiple other medical issues. Evaluated by PT OT and subacute rehab recommended at discharge. Maintained on gentle IV fluid hydration, Renal function improving . Denies chest pain, palpitations.Afebrile. 10/14/2017 Sling maintained on right upper extremity, pain controlled. Renal function stable. Denies chest pain, palpitations or increased shortness of breath. 10/15/2017 no overnight events. Pain controlled. Denies chest pain, or palpitations. Consumed 50% of lunch with no nausea or vomiting. Positive bowel movement, no diarrhea. Objective - Vital Signs Vital signs: Vital Signs Temp 98.3 F 10/15/17 13:30 Pulse 68 10/15/17 16:56 Resp 16 10/15/17 16:56 BP 154/64 10/15/17 13:30 Pulse Ox 97 10/15/17 13:30 Intake & Output 10/14/17 10/15/17 10/15/17 18:59 06:59 18:59 Intake Total 400 Balance 400 Weight 78 kg Intake: Oral 400 Other: # Voids 0 3 1 # Bowel Movements 1 1 1 - Exam PHYSICAL EXAM: VITAL SIGNS: Temperature 96.9 oral, pulse 62, respiratory rate 16, blood pressure 126/45, O2 sat 92% on 2 L nasal cannula GENERAL: Sitting up in chair, wearing sling, no acute distress HEENT: Conjunctivae normal. eyes normal. Oral mucosa moist NECK: No JVD. No thyroid enlargement. No LNs CARDIOVASCULAR: S1, S2 muffled. No murmur RESPIRATION: Breath sounds diminished in the bases. ABDOMEN: Soft, nontender . No guarding. no masses palpable. Bowel sounds heard. Extremities: Status post right humerus fracture, wearing sling,LEGS: No edema. no swelling PSYCHIATRY: Alert and oriented -3, mood and affect normal. NERVOUS SYSTEM: Cranial N 2-12 grossly normal. Diffuse weakness No focal deficits. - Labs CBC & Chem 7: 10/12/17 06:33 10/13/17 07:49 Labs: Abnormal Lab Results - Last 24 Hours (Table) 10/14/17 10/15/17 10/15/17 Range/Units 20:45 02:25 07:08 POC Glucose (mg/dL) 177 H 119 H 65 L (75-99) mg/dL 10/15/17 10/15/17 10/15/17 Range/Units 07:25 12:19 16:45 POC Glucose (mg/dL) 66 L 63 L 120 H (75-99) mg/dL Assessment and Plan Assessment: 1. Status post right humerus fracture with severe pain 2. Multiple falls 3. Generalized weakness, and gait dysfunction 4. Hypertension 5. Acute on chronic renal failure, stage III 6. Chronic atrial fibrillation, not on anticoagulation secondary to intracranial bleeding. History of surgery for removal of blood clots secondary to intracranial hematoma. 7. Diabetes mellitus type 2 Plan: Continue on current medication regime ,monitoring and symptomatic treatment. PT/OT. [employer] worker assisting with Discharge planning in progress for subacute rehab. The impression and plan of care has been dictated as directed. : I performed a history and examination of this patient, discussed the same with the dictator. I agree with the dictator's note ,documented as a scribe. Any additional findings or plans will be noted.
[2017-10-15 20:58] LABS: Glucose,Whole Blood 239 mg/dL (75-99)
[2017-10-15] MEDS: INSULIN DETEMIR 100 UNIT/ML 10 ML VIAL SQ SCH (21:07)
[2017-10-16] MEDS: HEPARIN SODIUM,PORCINE 5,000 UNIT/ML 1 ML VIAL SQ SCH ×3 (00:53→16:13)
[2017-10-16 05:17] LABS: Glucose,Whole Blood 50 mg/dL (75-99)
[2017-10-16 05:41] LABS: Glucose,Whole Blood 87 mg/dL (75-99)
[2017-10-16] MEDS: SYMBICORT 160-4.5 MCG INHALER INHALATION SCH ×2 (06:54→19:30)
[2017-10-16] MEDS: IPRATROPIUM-ALBUTEROL 3 ML NEB INHALATION SCH ×4 (06:54→19:30)
[2017-10-16] MEDS: INSULIN ASPART 100 UNIT/ML 1 ML 10 ML VIAL SQ SCH ×6 (07:27→21:38)
[2017-10-16] MEDS: GABAPENTIN 300 MG CAP PO SCH ×2 (07:30→21:26)
[2017-10-16] MEDS: amLODIPine 10 MG TAB PO SCH (07:30)
[2017-10-16] MEDS: hydrALAZINE HCL 50 MG TAB PO SCH ×3 (07:30→21:26)
[2017-10-16] MEDS: DICYCLOMINE 10 MG CAP PO SCH ×3 (07:30→16:13)
[2017-10-16] MEDS: SERTRALINE 50 MG TAB PO SCH (07:30)
[2017-10-16] MEDS: LABETALOL 200 MG TAB PO SCH ×2 (07:31→21:26)
[2017-10-16] MEDS: ACETAMINOPHEN TAB 325 MG TAB PO PRN ×2 (07:31→21:38)
[2017-10-16 07:35] LABS: Glucose,Whole Blood 95 mg/dL (75-99)
[2017-10-16 08:20] LABS: Basophils # (A) 0.1 k/uL (0-0.2); Basophils % (A) 1 %; Eosinophils # (A) 0.2 k/uL (0-0.7); Eosinophils % (A) 3 %; HCT 36.1 % (34.0-46.0); HGB 11.4 gm/dL (11.4-16.0); Lymphocytes # (A) 1.2 k/uL (1.0-4.8); Lymphocytes % (A) 15 %; MCHC 31.5 g/dL (31.0-37.0); MCV 82.5 fL (80.0-100.0); Mean Platelet Volume 6.9; Monocytes # (A) 0.5 k/uL (0-1.0); Monocytes % (A) 6 %; Neutrophils % (A) 74 %; Platelet Count 284 k/uL (150-450); RBC 4.38 m/uL (3.80-5.40); RDW 15.1 % (11.5-15.5); WBC 8.1 k/uL (3.8-10.6)
[2017-10-16 08:33] LABS: Calcium 8.9 mg/dL (8.4-10.2); Potassium 4.8 mmol/L (3.5-5.1)
--- NOTE | 2017-10-16 09:18 | P.PN ---
Subjective Progress Note Date: 10/16/17 This is a 72-year-old female who is being followed by orthopedics for right proximal humerus fracture. Patient denies any new symptoms or complaints today. Patient denies any fever/chills, numbness, weakness, tingling, abdominal pain, shortness of breath or chest pain. Objective - Vital Signs Vital signs: Vital Signs Temp 97.9 F 10/16/17 06:24 Pulse 68 10/16/17 07:07 Resp 18 10/16/17 06:24 BP 175/70 10/16/17 06:24 Pulse Ox 97 10/16/17 06:24 Intake & Output 10/15/17 10/16/17 10/16/17 18:59 06:59 18:59 Other: Voiding Method Bedpan # Voids 1 2 # Bowel Movements 1 1 - Exam On exam patient is alert and oriented 3 and lying comfortably in bed in no acute distress. Swelling over the right shoulder is improving. Patient has full range of motion of the right wrist and hand. Sensation intact. Capillary refill is less than 2 seconds. Right upper extremity is warm and well perfused. Neurovascular status and circulatory status are intact. - Labs CBC & Chem 7: 10/12/17 06:33 10/13/17 07:49 Labs: Abnormal Lab Results - Last 24 Hours (Table) 10/15/17 10/15/17 10/15/17 Range/Units 12:19 16:45 20:56 POC Glucose (mg/dL) 63 L 120 H 239 H (75-99) mg/dL 10/16/17 Range/Units 05:16 POC Glucose (mg/dL) 50 L (75-99) mg/dL Assessment and Plan (1) Fracture of proximal end of right humerus Current Visit: Yes Status: Acute Code(s): S42.201A - UNSP FRACTURE OF UPPER END OF RIGHT HUMERUS, INIT SNOMED Code(s): 463457847 (2) Fall Current Visit: Yes Status: Acute Code(s): W19.XXXA - UNSPECIFIED FALL, INITIAL ENCOUNTER SNOMED Code(s): 8791977 Plan: 1. X-rays are reviewed and show a nondisplaced right proximal humerus fracture. 2. Maintain sling to the right upper extremity when out of bed. 3. Rest and ice the right shoulder. 4. No surgical intervention planned. Patient may follow up as an outpatient.
--- NOTE | 2017-10-16 10:40 | P.PN ---
Subjective Patient is seen in follow-up for acute kidney injury. Renal function stable - cr 1.28 today. She is currently resting in bed. Denies chest pain or shortness of breath. Good urine output. Constipation resolved. Vital signs are stable. General: The patient appeared well nourished and normally developed. HEENT: Head exam is unremarkable. Neck is without jugular venous distension. LUNGS: Lungs are clear to auscultation and percussion. Breath sounds decreased. HEART: Rate and Rhythm are regular. First and second heart sounds normal. No murmurs, rubs or gallops. ABDOMEN: Abdominal exam reveals normal bowel sounds. Non-tender and non- distended. No evidence of peritonitis. EXTREMITITES: No clubbing, cyanosis, or edema. Objective - Vital Signs Vital signs: Vital Signs Temp 97.9 F 10/16/17 06:24 Pulse 68 10/16/17 07:07 Resp 18 10/16/17 06:24 BP 175/70 10/16/17 06:24 Pulse Ox 97 10/16/17 06:24 Intake & Output 10/15/17 10/16/17 10/16/17 18:59 06:59 18:59 Other: Voiding Method Bedpan # Voids 1 2 # Bowel Movements 1 1 - Labs CBC & Chem 7: 10/16/17 07:39 10/16/17 07:39 Labs: Abnormal Lab Results - Last 24 Hours (Table) 10/15/17 10/15/17 10/15/17 Range/Units 12:19 16:45 20:56 BUN (7-17) mg/dL Creatinine (0.52-1.04) mg/dL POC Glucose (mg/dL) 63 L 120 H 239 H (75-99) mg/dL 10/16/17 10/16/17 Range/Units 05:16 07:39 BUN 28 H (7-17) mg/dL Creatinine 1.28 H (0.52-1.04) mg/dL POC Glucose (mg/dL) 50 L (75-99) mg/dL Assessment and Plan Plan: Assessment: 1. Acute kidney injury mostly prerenal. Renal function stable. 2. Chronic kidney disease stage III secondary to nephrosclerosis. Baseline creatinine in the range of 1-1.2. 3. Status post fall with fracture of the right humerus currently resting. 4. Hypertension with chronic kidney disease. Plan: Add lisinopril 5 mg daily. Encourage oral intake. Remains off all IV fluids. Avoid nephrotoxins. Awaits placement to rehab. Lactulose PRN constipation. Stable to be discharged from nephrology standpoint. Follow up outpatient in the next 2 weeks.
[2017-10-16 12:03] LABS: Glucose,Whole Blood 73 mg/dL (75-99)
--- NOTE | 2017-10-16 12:38 | P.PN ---
Subjective Progress Note Date: 10/16/17 Progress note being dictated for Dr. Toledo. Interval history: This a 72-year-old female admitted with right humerus fracture , gait dysfunction and multiple other medical issues. Evaluated by PT OT and subacute rehab recommended at discharge. Maintained on gentle IV fluid hydration, Renal function improving . Denies chest pain, palpitations.Afebrile. 10/14/2017 Sling maintained on right upper extremity, pain controlled. Renal function stable. Denies chest pain, palpitations or increased shortness of breath. 10/15/2017 no overnight events. Pain controlled. Denies chest pain, or palpitations. Consumed 50% of lunch with no nausea or vomiting. Positive bowel movement, no diarrhea. 10/16/2017 no further constipation. Hypoglycemic in a.m., currently blood sugars stable. Creatinine 1.28. Denies chest pain, palpitations or shortness of breath. Objective - Vital Signs Vital signs: Vital Signs Temp 97.9 F 10/16/17 06:24 Pulse 68 10/16/17 07:07 Resp 18 10/16/17 06:24 BP 175/70 10/16/17 06:24 Pulse Ox 97 10/16/17 06:24 Intake & Output 10/15/17 10/16/17 10/16/17 18:59 06:59 18:59 Other: Voiding Method Bedpan # Voids 1 2 1 # Bowel Movements 1 1 1 - Exam PHYSICAL EXAM: VITAL SIGNS: Temperature 96.9 oral, pulse 62, respiratory rate 16, blood pressure 126/45, O2 sat 92% on 2 L nasal cannula GENERAL: Sitting up in bed, wearing sling, no acute distress HEENT: Conjunctivae normal. eyes normal. Oral mucosa moist NECK: No JVD. No thyroid enlargement. No LNs CARDIOVASCULAR: S1, S2 muffled. No murmur RESPIRATION: Breath sounds diminished in the bases. ABDOMEN: Soft, nontender . No guarding. no masses palpable. Positive Bowel sounds. Extremities: Status post right humerus fracture, wearing sling,LEGS: No edema. no swelling PSYCHIATRY: Alert and oriented -3, mood and affect normal. NERVOUS SYSTEM: Cranial N 2-12 grossly normal. Diffuse weakness No focal deficits. - Labs CBC & Chem 7: 10/16/17 07:39 10/16/17 07:39 Labs: Abnormal Lab Results - Last 24 Hours (Table) 10/15/17 10/15/17 10/15/17 Range/Units 12:19 16:45 20:56 BUN (7-17) mg/dL Creatinine (0.52-1.04) mg/dL POC Glucose (mg/dL) 63 L 120 H 239 H (75-99) mg/dL 10/16/17 10/16/17 10/16/17 Range/Units 05:16 07:39 11:56 BUN 28 H (7-17) mg/dL Creatinine 1.28 H (0.52-1.04) mg/dL POC Glucose (mg/dL) 50 L 73 L (75-99) mg/dL Assessment and Plan Assessment: 1. Status post right humerus fracture with severe pain 2. Multiple falls 3. Generalized weakness, and gait dysfunction 4. Hypertension 5. Acute on chronic renal failure, stage III 6. Chronic atrial fibrillation, not on anticoagulation secondary to intracranial bleeding. History of surgery for removal of blood clots secondary to intracranial hematoma. 7. Diabetes mellitus type 2 Plan: Continue on current medication regime ,monitoring and symptomatic treatment. We'll decrease Levemir dose, add pre-meal insulin with parameters. Close monitoring of Accu-Cheks. PT/OT. Medicaid application pending. [employer] worker assisting with Discharge planning in progress for subacute rehab. The impression and plan of care has been dictated as directed. : I performed a history and examination of this patient, discussed the same with the dictator. I agree with the dictator's note ,documented as a scribe. Any additional findings or plans will be noted.
[2017-10-16 17:47] LABS: Glucose,Whole Blood 112 mg/dL (75-99)
[2017-10-16 21:03] LABS: Glucose,Whole Blood 278 mg/dL (75-99)
[2017-10-16] MEDS: INSULIN DETEMIR 100 UNIT/ML 10 ML VIAL SQ SCH (21:39)
[2017-10-17] MEDS: HEPARIN SODIUM,PORCINE 5,000 UNIT/ML 1 ML VIAL SQ SCH ×4 (01:05→23:00)
[2017-10-17 02:08] LABS: Glucose,Whole Blood 132 mg/dL (75-99)
[2017-10-17] MEDS: SYMBICORT 160-4.5 MCG INHALER INHALATION SCH ×2 (06:58→19:16)
[2017-10-17] MEDS: IPRATROPIUM-ALBUTEROL 3 ML NEB INHALATION SCH ×4 (06:59→19:16)
[2017-10-17 07:15] LABS: Glucose,Whole Blood 80 mg/dL (75-99)
[2017-10-17] MEDS: INSULIN ASPART 100 UNIT/ML 1 ML 10 ML VIAL SQ SCH ×7 (07:29→21:40)
[2017-10-17] MEDS: amLODIPine 10 MG TAB PO SCH (08:00)
[2017-10-17] MEDS: hydrALAZINE HCL 50 MG TAB PO SCH ×3 (08:00→21:39)
[2017-10-17] MEDS: LISINOPRIL 5 MG TAB PO SCH (08:00)
[2017-10-17] MEDS: SERTRALINE 50 MG TAB PO SCH (08:00)
[2017-10-17] MEDS: DICYCLOMINE 10 MG CAP PO SCH ×3 (08:00→16:58)
[2017-10-17] MEDS: GABAPENTIN 300 MG CAP PO SCH ×2 (08:00→20:02)
[2017-10-17] MEDS: LABETALOL 200 MG TAB PO SCH ×2 (08:00→20:02)
[2017-10-17] MEDS: ACETAMINOPHEN TAB 325 MG TAB PO PRN (08:09)
--- NOTE | 2017-10-17 09:24 | P.PN ---
Subjective Patient is seen in follow-up for acute kidney injury. Renal function stable - cr 1.28 10/16. She is currently resting in bed. Denies chest pain or shortness of breath. Good urine output. Constipation resolved. Awaits rehab placement. Vital signs are stable. General: The patient appeared well nourished and normally developed. HEENT: Head exam is unremarkable. Neck is without jugular venous distension. LUNGS: Lungs are clear to auscultation and percussion. Breath sounds decreased. HEART: Rate and Rhythm are regular. First and second heart sounds normal. No murmurs, rubs or gallops. ABDOMEN: Abdominal exam reveals normal bowel sounds. Non-tender and non- distended. No evidence of peritonitis. EXTREMITITES: No clubbing, cyanosis, or edema. Objective - Vital Signs Vital signs: Vital Signs Temp 96.9 F L 10/17/17 06:21 Pulse 63 10/17/17 06:21 Resp 18 10/17/17 06:21 BP 178/64 10/17/17 06:21 Pulse Ox 99 10/17/17 06:59 Intake & Output 10/16/17 10/17/17 10/17/17 18:59 06:59 18:59 Intake Total 500 Balance 500 Intake: Oral 500 Other: Voiding Method Bedpan # Voids 1 2 # Bowel Movements 1 - Labs CBC & Chem 7: 10/16/17 07:39 10/16/17 07:39 Labs: Abnormal Lab Results - Last 24 Hours (Table) 10/16/17 10/16/17 10/16/17 Range/Units 11:56 17:03 20:48 POC Glucose (mg/dL) 73 L 112 H 278 H (75-99) mg/dL 10/17/17 Range/Units 02:05 POC Glucose (mg/dL) 132 H (75-99) mg/dL Assessment and Plan Plan: Assessment: 1. Acute kidney injury mostly prerenal. Renal function stable. 2. Chronic kidney disease stage III secondary to nephrosclerosis. Baseline creatinine in the range of 1-1.2. 3. Status post fall with fracture of the right humerus currently resting. 4. Hypertension with chronic kidney disease. Plan: Lisinopril added 10/16/17. Encourage oral intake. Remains off all IV fluids. Avoid nephrotoxins. Awaits placement to rehab. Lactulose PRN constipation. Stable to be discharged from nephrology standpoint. Follow up outpatient in the next 2 weeks.
[2017-10-17 11:56] LABS: Glucose,Whole Blood 120 mg/dL (75-99)
--- NOTE | 2017-10-17 15:35 | P.PN ---
Subjective Progress Note Date: 10/17/17 Progress note being dictated for Dr. Toledo. Interval history: This a 72-year-old female admitted with right humerus fracture , gait dysfunction and multiple other medical issues. Evaluated by PT OT and subacute rehab recommended at discharge. Maintained on gentle IV fluid hydration, Renal function improving . Denies chest pain, palpitations.Afebrile. 10/14/2017 Sling maintained on right upper extremity, pain controlled. Renal function stable. Denies chest pain, palpitations or increased shortness of breath. 10/15/2017 no overnight events. Pain controlled. Denies chest pain, or palpitations. Consumed 50% of lunch with no nausea or vomiting. Positive bowel movement, no diarrhea. 10/16/2017 no further constipation. Hypoglycemic in a.m., currently blood sugars stable. Creatinine 1.28. Denies chest pain, palpitations or shortness of breath. 10/17/2017 blood sugars better controlled. Renal function stable. Good diet intake with no nausea or vomiting. Pain controlled. Denies chest pain, palpitations or shortness of breath. Objective - Vital Signs Vital signs: Vital Signs Temp 97.4 F L 10/17/17 14:05 Pulse 64 10/17/17 14:05 Resp 18 10/17/17 14:05 BP 128/74 10/17/17 14:05 Pulse Ox 96 10/17/17 14:05 Intake & Output 10/16/17 10/17/17 10/17/17 18:59 06:59 18:59 Intake Total 500 900 Balance 500 900 Intake: Oral 500 900 Other: Voiding Method Bedpan # Voids 1 2 1 # Bowel Movements 1 1 - Exam PHYSICAL EXAM: VITAL SIGNS: As above GENERAL: Sitting up in chair, no acute distress HEENT: Conjunctivae normal. eyes normal. Oral mucosa moist NECK: No JVD. No thyroid enlargement. No LNs CARDIOVASCULAR: S1, S2 muffled. No murmur RESPIRATION: Breath sounds diminished in the bases. ABDOMEN: Soft, nontender . No guarding. no masses palpable. Positive Bowel sounds. Extremities: Status post right humerus fracture, wearing sling,LEGS: No edema. no swelling PSYCHIATRY: Alert and oriented -3, mood and affect normal. NERVOUS SYSTEM: Cranial N 2-12 grossly normal. Diffuse weakness No focal deficits. - Labs CBC & Chem 7: 10/16/17 07:39 10/16/17 07:39 Labs: Abnormal Lab Results - Last 24 Hours (Table) 10/16/17 10/16/17 10/17/17 Range/Units 17:03 20:48 02:05 POC Glucose (mg/dL) 112 H 278 H 132 H (75-99) mg/dL 10/17/17 Range/Units 11:52 POC Glucose (mg/dL) 120 H (75-99) mg/dL Assessment and Plan Assessment: 1. Status post right humerus fracture with severe pain 2. Multiple falls 3. Generalized weakness, and gait dysfunction 4. Hypertension 5. Acute on chronic renal failure, stage III 6. Chronic atrial fibrillation, not on anticoagulation secondary to intracranial bleeding. History of surgery for removal of blood clots secondary to intracranial hematoma. 7. Diabetes mellitus type 2 Plan: Continue on current medication regime ,monitoring and symptomatic treatment. Close monitoring of Accu-Cheks. PT/OT. Medicaid application pending. [employer] worker assisting with Discharge planning in progress for subacute rehab. The impression and plan of care has been dictated as directed. : I performed a history and examination of this patient, discussed the same with the dictator. I agree with the dictator's note ,documented as a scribe. Any additional findings or plans will be noted.
[2017-10-17 16:57] LABS: Glucose,Whole Blood 134 mg/dL (75-99)
[2017-10-17 20:48] LABS: Glucose,Whole Blood 168 mg/dL (75-99)
[2017-10-17] MEDS: INSULIN DETEMIR 100 UNIT/ML 10 ML VIAL SQ SCH (21:40)
[2017-10-18 02:44] LABS: Glucose,Whole Blood 172 mg/dL (75-99)
[2017-10-18] MEDS: ACETAMINOPHEN TAB 325 MG TAB PO PRN ×2 (04:38→20:56)
[2017-10-18] MEDS: SYMBICORT 160-4.5 MCG INHALER INHALATION SCH ×2 (07:09→20:20)
[2017-10-18] MEDS: IPRATROPIUM-ALBUTEROL 3 ML NEB INHALATION SCH ×4 (07:09→20:20)
[2017-10-18 07:39] LABS: Glucose,Whole Blood 105 mg/dL (75-99)
[2017-10-18] MEDS: HEPARIN SODIUM,PORCINE 5,000 UNIT/ML 1 ML VIAL SQ SCH ×2 (08:38→15:25)
[2017-10-18] MEDS: INSULIN ASPART 100 UNIT/ML 1 ML 10 ML VIAL SQ SCH ×7 (08:38→20:56)
[2017-10-18] MEDS: LISINOPRIL 5 MG TAB PO SCH (08:39)
[2017-10-18] MEDS: GABAPENTIN 300 MG CAP PO SCH ×2 (08:39→20:47)
[2017-10-18] MEDS: SERTRALINE 50 MG TAB PO SCH (08:39)
[2017-10-18] MEDS: LABETALOL 200 MG TAB PO SCH ×2 (08:39→20:48)
[2017-10-18] MEDS: hydrALAZINE HCL 50 MG TAB PO SCH ×3 (08:39→20:47)
[2017-10-18] MEDS: DICYCLOMINE 10 MG CAP PO SCH ×3 (08:39→17:13)
[2017-10-18] MEDS: amLODIPine 10 MG TAB PO SCH (08:40)
[2017-10-18 09:31] LABS: Basophils # (A) 0.1 k/uL (0-0.2); Basophils % (A) 1 %; Eosinophils # (A) 0.2 k/uL (0-0.7); Eosinophils % (A) 2 %; HCT 36.7 % (34.0-46.0); HGB 11.2 gm/dL (11.4-16.0); Hypochromasia Slight; Lymphocytes # (A) 1.7 k/uL (1.0-4.8); Lymphocytes % (A) 18 %; MCH 25.7 pg (25.0-35.0); MCHC 30.6 g/dL (31.0-37.0); Mean Platelet Volume 6.6; Monocytes # (A) 0.6 k/uL (0-1.0); Monocytes % (A) 6 %; Neutrophils # (A) 6.8 k/uL (1.3-7.7); Neutrophils % (A) 72 %; Platelet Count 298 k/uL (150-450); RBC 4.37 m/uL (3.80-5.40); RDW 14.9 % (11.5-15.5); WBC 9.4 k/uL (3.8-10.6)
[2017-10-18 10:02] LABS: Calcium 8.9 mg/dL (8.4-10.2); Potassium 4.7 mmol/L (3.5-5.1)
--- NOTE | 2017-10-18 11:20 | P.PN ---
Subjective Patient is seen in follow-up for acute kidney injury. Renal function stable. She is currently resting in bed. Denies chest pain or shortness of breath. Good urine output. Constipation resolved. Awaits rehab placement. Vital signs are stable. General: The patient appeared well nourished and normally developed. HEENT: Head exam is unremarkable. Neck is without jugular venous distension. LUNGS: Lungs are clear to auscultation and percussion. Breath sounds decreased. HEART: Rate and Rhythm are regular. First and second heart sounds normal. No murmurs, rubs or gallops. ABDOMEN: Abdominal exam reveals normal bowel sounds. Non-tender and non- distended. No evidence of peritonitis. EXTREMITITES: No clubbing, cyanosis, or edema. Objective - Vital Signs Vital signs: Vital Signs Temp 97.2 F L 10/18/17 07:00 Pulse 67 10/18/17 07:00 Resp 18 10/18/17 07:00 BP 140/54 10/18/17 07:00 Pulse Ox 94 L 10/18/17 07:00 Intake & Output 10/17/17 10/18/17 10/18/17 18:59 06:59 18:59 Intake Total 900 700 Balance 900 700 Weight 78 kg Intake: Oral 900 700 Other: Voiding Method Bedpan # Voids 1 2 1 # Bowel Movements 1 1 - Labs CBC & Chem 7: 10/18/17 08:52 10/18/17 08:52 Labs: Abnormal Lab Results - Last 24 Hours (Table) 10/17/17 10/17/17 10/17/17 Range/Units 11:52 16:55 20:38 Hgb (11.4-16.0) gm/dL MCHC (31.0-37.0) g/dL Carbon Dioxide (22-30) mmol/L BUN (7-17) mg/dL Creatinine (0.52-1.04) mg/dL Glucose (74-99) mg/dL POC Glucose (mg/dL) 120 H 134 H 168 H (75-99) mg/dL 10/18/17 10/18/17 10/18/17 Range/Units 02:35 07:01 08:52 Hgb 11.2 L (11.4-16.0) gm/dL MCHC 30.6 L (31.0-37.0) g/dL Carbon Dioxide (22-30) mmol/L BUN (7-17) mg/dL Creatinine (0.52-1.04) mg/dL Glucose (74-99) mg/dL POC Glucose (mg/dL) 172 H 105 H (75-99) mg/dL 10/18/17 Range/Units 08:52 Hgb (11.4-16.0) gm/dL MCHC (31.0-37.0) g/dL Carbon Dioxide 31 H (22-30) mmol/L BUN 25 H (7-17) mg/dL Creatinine 1.29 H (0.52-1.04) mg/dL Glucose 132 H (74-99) mg/dL POC Glucose (mg/dL) (75-99) mg/dL Assessment and Plan Plan: Assessment: 1. Acute kidney injury mostly prerenal. Renal function stable. 2. Chronic kidney disease stage III secondary to nephrosclerosis. Baseline creatinine in the range of 1-1.2. 3. Status post fall with fracture of the right humerus currently resting. 4. Hypertension with chronic kidney disease. Plan: Lisinopril added 10/16/17. Encourage oral intake. Remains off all IV fluids. Avoid nephrotoxins. Awaits placement to rehab. Lactulose PRN constipation. Stable to be discharged from nephrology standpoint. Follow up outpatient in the next 2 weeks.
[2017-10-18 12:44] LABS: Glucose,Whole Blood 108 mg/dL (75-99)
[2017-10-18 17:08] LABS: Glucose,Whole Blood 135 mg/dL (75-99)
--- NOTE | 2017-10-18 17:22 | P.PN ---
Subjective Progress Note Date: 10/18/17 Progress note being dictated for Dr. Toledo. Interval history: This a 72-year-old female admitted with right humerus fracture , gait dysfunction and multiple other medical issues. Evaluated by PT OT and subacute rehab recommended at discharge. Maintained on gentle IV fluid hydration, Renal function improving . Denies chest pain, palpitations.Afebrile. 10/14/2017 Sling maintained on right upper extremity, pain controlled. Renal function stable. Denies chest pain, palpitations or increased shortness of breath. 10/15/2017 no overnight events. Pain controlled. Denies chest pain, or palpitations. Consumed 50% of lunch with no nausea or vomiting. Positive bowel movement, no diarrhea. 10/16/2017 no further constipation. Hypoglycemic in a.m., currently blood sugars stable. Creatinine 1.28. Denies chest pain, palpitations or shortness of breath. 10/17/2017 blood sugars better controlled. Renal function stable. Good diet intake with no nausea or vomiting. Pain controlled. Denies chest pain, palpitations or shortness of breath. 10/18/2017 sitting up in bed, pain controlled.VSS. Denies chest pain, palpitations or shortness of breath. Awaiting rehab placement. Objective - Vital Signs Vital signs: Vital Signs Temp 96.5 F L 10/18/17 15:00 Pulse 61 10/18/17 15:00 Resp 16 10/18/17 15:00 BP 140/60 10/18/17 15:00 Pulse Ox 92 L 10/18/17 15:00 Intake & Output 10/17/17 10/18/17 10/18/17 18:59 06:59 18:59 Intake Total 900 700 Balance 900 700 Weight 78 kg Intake: Oral 900 700 Other: Voiding Method Bedpan # Voids 1 2 2 # Bowel Movements 1 1 - Exam PHYSICAL EXAM: VITAL SIGNS: As above GENERAL: Sitting up in chair, no acute distress HEENT: Conjunctivae normal. eyes normal. Oral mucosa moist NECK: No JVD. No thyroid enlargement. No LNs CARDIOVASCULAR: S1, S2 muffled. No murmur RESPIRATION: Breath sounds diminished in the bases. ABDOMEN: Soft, nontender . No guarding. no masses palpable. Positive Bowel sounds. Extremities: Status post right humerus fracture, wearing sling,LEGS: No edema. no swelling PSYCHIATRY: Alert and oriented -3, mood and affect normal. NERVOUS SYSTEM: Cranial N 2-12 grossly normal. Diffuse weakness No focal deficits. - Labs CBC & Chem 7: 10/18/17 08:52 10/18/17 08:52 Labs: Abnormal Lab Results - Last 24 Hours (Table) 10/17/17 10/18/17 10/18/17 Range/Units 20:38 02:35 07:01 Hgb (11.4-16.0) gm/dL MCHC (31.0-37.0) g/dL Carbon Dioxide (22-30) mmol/L BUN (7-17) mg/dL Creatinine (0.52-1.04) mg/dL Glucose (74-99) mg/dL POC Glucose (mg/dL) 168 H 172 H 105 H (75-99) mg/dL 10/18/17 10/18/17 10/18/17 Range/Units 08:52 08:52 12:41 Hgb 11.2 L (11.4-16.0) gm/dL MCHC 30.6 L (31.0-37.0) g/dL Carbon Dioxide 31 H (22-30) mmol/L BUN 25 H (7-17) mg/dL Creatinine 1.29 H (0.52-1.04) mg/dL Glucose 132 H (74-99) mg/dL POC Glucose (mg/dL) 108 H (75-99) mg/dL 10/18/17 Range/Units 17:07 Hgb (11.4-16.0) gm/dL MCHC (31.0-37.0) g/dL Carbon Dioxide (22-30) mmol/L BUN (7-17) mg/dL Creatinine (0.52-1.04) mg/dL Glucose (74-99) mg/dL POC Glucose (mg/dL) 135 H (75-99) mg/dL Assessment and Plan Assessment: 1. Status post right humerus fracture with severe pain 2. Multiple falls 3. Generalized weakness, and gait dysfunction 4. Hypertension 5. Acute on chronic renal failure, stage III 6. Chronic atrial fibrillation, not on anticoagulation secondary to intracranial bleeding. History of surgery for removal of blood clots secondary to intracranial hematoma. 7. Diabetes mellitus type 2 Plan: Continue on current medication regime ,monitoring and symptomatic treatment.PT/OT. Awaiting placement. Discharge planning in progress for subacute rehab. The impression and plan of care has been dictated as directed. : I performed a history and examination of this patient, discussed the same with the dictator. I agree with the dictator's note ,documented as a scribe. Any additional findings or plans will be noted.
[2017-10-18 20:47] LABS: Glucose,Whole Blood 160 mg/dL (75-99)
[2017-10-18] MEDS: INSULIN DETEMIR 100 UNIT/ML 10 ML VIAL SQ SCH (20:56)
[2017-10-19] MEDS: HEPARIN SODIUM,PORCINE 5,000 UNIT/ML 1 ML VIAL SQ SCH ×4 (00:03→23:48)
[2017-10-19 05:44] LABS: Glucose,Whole Blood 91 mg/dL (75-99)
[2017-10-19 06:58] LABS: Glucose,Whole Blood 81 mg/dL (75-99)
[2017-10-19] MEDS: SYMBICORT 160-4.5 MCG INHALER INHALATION SCH ×2 (07:30→19:31)
[2017-10-19] MEDS: IPRATROPIUM-ALBUTEROL 3 ML NEB INHALATION SCH ×4 (07:30→19:31)
[2017-10-19] MEDS: INSULIN ASPART 100 UNIT/ML 1 ML 10 ML VIAL SQ SCH ×7 (08:08→21:40)
[2017-10-19] MEDS: LISINOPRIL 5 MG TAB PO SCH (08:12)
[2017-10-19] MEDS: LABETALOL 200 MG TAB PO SCH ×2 (08:12→21:39)
[2017-10-19] MEDS: DICYCLOMINE 10 MG CAP PO SCH ×3 (08:12→16:49)
[2017-10-19] MEDS: SERTRALINE 50 MG TAB PO SCH (08:12)
[2017-10-19] MEDS: hydrALAZINE HCL 50 MG TAB PO SCH ×3 (08:12→21:39)
[2017-10-19] MEDS: amLODIPine 10 MG TAB PO SCH (08:12)
[2017-10-19] MEDS: GABAPENTIN 300 MG CAP PO SCH ×2 (08:12→21:39)
--- NOTE | 2017-10-19 12:04 | P.PN ---
Subjective Progress Note Date: 10/19/17 Principal diagnosis: The 72-year-old female seen in consultation because of acute kidney injury, after a fall. She is known with diabetes hypertension atrial fibrillation coronary artery disease uterine cancer. Currently she is feeling much better denies any complaints is able to ambulate has good appetite no fever chills cough shortness of breath dizziness. No dysuria frequency or diarrhea. Objective - Vital Signs Vital signs: Vital Signs Temp 97.1 F L 10/19/17 05:56 Pulse 61 10/19/17 05:56 Resp 17 10/19/17 05:56 BP 148/70 10/19/17 05:56 Pulse Ox 95 10/19/17 05:56 Intake & Output 10/18/17 10/19/17 10/19/17 18:59 06:59 18:59 Other: # Voids 2 2 2 # Bowel Movements 1 1 1 Examination she is awake alert oriented comfortable HEENT exam no JVP neck is supple no facial asymmetry Lungs are clear to auscultation percussion good air entry bilaterally At sounds are unremarkable no murmur rub gallop Abdomen soft nontender Extremity exam was no edema Neurologically awake alert oriented - Labs CBC & Chem 7: 10/18/17 08:52 10/18/17 08:52 Labs: Abnormal Lab Results - Last 24 Hours (Table) 10/18/17 10/18/17 10/18/17 Range/Units 12:41 17:07 20:44 POC Glucose (mg/dL) 108 H 135 H 160 H (75-99) mg/dL Assessment and Plan Assessment: Impression 1. Acute kidney injury secondary to prerenal from fall and fracture of right humerus. Creatinine down to 1.29 as of yesterday 10/18/2017. 2. Chronic kidney disease stage III, Baseline creatinine is approximately at its best 1.2 recently on 07/24/2017. Urinalysis has no proteinuria dated 2079 3. Hypertension controlled. 4. Status post fall and fracture of right humerus Recommendation. 1. No changes in medications, maintain current blood pressure medications including lisinopril. 2. We'll check labs tomorrow as she was started on lisinopril on 10/17/2017
[2017-10-19 12:31] LABS: Glucose,Whole Blood 115 mg/dL (75-99)
[2017-10-19] MEDS: ACETAMINOPHEN TAB 325 MG TAB PO PRN ×2 (13:10→21:39)
[2017-10-19 17:19] LABS: Glucose,Whole Blood 161 mg/dL (75-99)
--- NOTE | 2017-10-19 17:50 | PN ---
PROGRESS NOTE DATE OF SERVICE: 10/19/2017. INTERVAL HISTORY: This 72-year-old woman who was admitted with right humerus fracture is being closely monitored. Patient is still complaining of pain. No chest pain. No palpitations. No fever. EXAM: Alert and oriented x3. Pulse 60, blood pressure 123/54, respirations 18, temperature 96.8, pulse ox 94% room air. HEENT: Conjunctivae normal. CARDIOVASCULAR: S1, S2 muffled. RESPIRATORY: Breath sounds diminished in the bases. No rhonchi. No crackles. ABDOMEN: Soft, nontender. NERVOUS SYSTEM: No focal deficits. RIGHT ARM: Status post right humarous. LABS: Hemoglobin 11.2 and creatinine is 1.29. ASSESSMENT: 1. Status post right humerus fracture with severe pain. 2. Multiple falls. 3. Numbness, weakness, gait dysfunction. 4. Acute on chronic renal failure, stage 3. 5. Hypertension. 6. Chronic atrial fibrillation, not on anticoagulation secondary to intracranial hematoma. 7. History of surgery for removal of blood clot secondary to rectal hematoma. 8. Diabetes mellitus type 2. RECOMMENDATIONS AND DISCUSSION: Continue current medical management and symptomatic pain medication. Monitor creatinine closely. Guarded prognosis. Further recommendations to follow. MMODL / IJN: [id number] / MTDD
[2017-10-19 20:39] LABS: Glucose,Whole Blood 126 mg/dL (75-99)
[2017-10-19] MEDS: INSULIN DETEMIR 100 UNIT/ML 10 ML VIAL SQ SCH (23:47)
[2017-10-20 02:19] LABS: Glucose,Whole Blood 224 mg/dL (75-99)
[2017-10-20 06:58] LABS: Glucose,Whole Blood 105 mg/dL (75-99)
[2017-10-20] MEDS: INSULIN ASPART 100 UNIT/ML 1 ML 10 ML VIAL SQ SCH ×7 (07:19→21:16)
[2017-10-20] MEDS: SYMBICORT 160-4.5 MCG INHALER INHALATION SCH ×2 (07:39→19:15)
[2017-10-20] MEDS: IPRATROPIUM-ALBUTEROL 3 ML NEB INHALATION SCH ×4 (07:39→19:15)
[2017-10-20 08:38] LABS: Calcium 9.2 mg/dL (8.4-10.2); Potassium 5.4 mmol/L (3.5-5.1)
[2017-10-20] MEDS: hydrALAZINE HCL 50 MG TAB PO SCH ×3 (08:53→21:26)
[2017-10-20] MEDS: HEPARIN SODIUM,PORCINE 5,000 UNIT/ML 1 ML VIAL SQ SCH ×3 (08:53→21:27)
[2017-10-20] MEDS: LISINOPRIL 5 MG TAB PO SCH (08:53)
[2017-10-20] MEDS: LABETALOL 200 MG TAB PO SCH ×2 (08:53→21:27)
[2017-10-20] MEDS: SERTRALINE 50 MG TAB PO SCH (08:53)
[2017-10-20] MEDS: GABAPENTIN 300 MG CAP PO SCH ×2 (08:53→21:16)
[2017-10-20] MEDS: DICYCLOMINE 10 MG CAP PO SCH ×3 (08:54→18:01)
[2017-10-20] MEDS: amLODIPine 10 MG TAB PO SCH (08:54)
--- NOTE | 2017-10-20 10:51 | P.PN ---
Subjective Progress Note Date: 10/20/17 Principal diagnosis: The 72-year-old female seen in consultation because of acute kidney injury, after a fall with fracture of her right humerus. She is known with diabetes hypertension atrial fibrillation coronary artery disease uterine cancer. Currently she is feeling much better denies any complaints is able to ambulate has good appetite no fever chills cough shortness of breath dizziness. No dysuria frequency or diarrhea.. She was started on lisinopril, creatinine went up to 1.5 from 1.2, her potassium went up to 5.4 No new complaints. Objective - Vital Signs Vital signs: Vital Signs Temp 96.7 F L 10/20/17 06:16 Pulse 61 10/20/17 06:16 Resp 17 10/20/17 06:16 BP 144/66 10/20/17 06:16 Pulse Ox 94 L 10/20/17 06:16 Intake & Output 10/19/17 10/20/17 10/20/17 18:59 06:59 18:59 Other: Voiding Method Bedpan Bedpan Bedpan # Voids 3 2 1 # Bowel Movements 2 On exam she is awake alert oriented but has poor memory. HEENT exam no JVP, thyromegaly. Neck is supple no facial asymmetry Heart sounds are unremarkable no murmur rub gallop. Lungs are clear to auscultation good air entry bilaterally Abdomen soft nontender no masses felt no organomegaly Extremity exam was trace edema. Neurologically awake alert oriented times. No focal motor deficit. - Labs CBC & Chem 7: 10/18/17 08:52 10/20/17 08:07 Labs: Abnormal Lab Results - Last 24 Hours (Table) 10/19/17 10/19/17 10/19/17 Range/Units 12:21 17:10 20:37 Potassium (3.5-5.1) mmol/L Carbon Dioxide (22-30) mmol/L BUN (7-17) mg/dL Creatinine (0.52-1.04) mg/dL POC Glucose (mg/dL) 115 H 161 H 126 H (75-99) mg/dL 10/20/17 10/20/17 10/20/17 Range/Units 02:18 06:53 08:07 Potassium 5.4 H (3.5-5.1) mmol/L Carbon Dioxide 33 H (22-30) mmol/L BUN 28 H (7-17) mg/dL Creatinine 1.50 H (0.52-1.04) mg/dL POC Glucose (mg/dL) 224 H 105 H (75-99) mg/dL Assessment and Plan Assessment: Impression 1. Acute kidney injury secondary to prerenal from fall and fracture of right humerus. Creatinine down to 1.29 as of 10/18/2017, went up to 1.5 as of 2017 likely secondary to the lisinopril. There is history of ESRD in her son at age 18 and therefore had a hereditary disease need to be considered. Ultrasound does not show any cystic kidney disease. There is no history suggestive of alports, or Fabrys disease. For now there is nothing more needs to be done 2. Hyperkalemia potassium of 5.4 secondary to lisinopril.. 2. Chronic kidney disease stage III, Baseline creatinine is approximately at its best 1.2 recently on 07/24/2017. Urinalysis has no proteinuria dated 2079 3. Hypertension less than optimally controlled. Systolic 144-152 4. Status post fall and fracture of right humerus Recommendation. 1. Discontinue the last lisinopril as her potassium went up to 5.4, in spite of being on the hospital diet . There is risk that her hyperkalemia may become worse at home. 2. Blood pressure is not controlled. currently on hydralazine 100 3 times a day amlodipine 10 mg and lisinopril 5 mg as well as labetalol 200 every 12. Will add chlorthalidone 25 mg. She is coming off of the lisinopril because of the hyperkalemia and acute kidneyl. 2. We'll check labs tomorrow 4. Her son was supposedly on dialysis from age 18 the cause of the kidney disease is unclear he at around age 50.
[2017-10-20 12:03] LABS: Glucose,Whole Blood 135 mg/dL (75-99)
[2017-10-20 17:07] LABS: Glucose,Whole Blood 144 mg/dL (75-99)
[2017-10-20 20:36] LABS: Glucose,Whole Blood 129 mg/dL (75-99)
[2017-10-20] MEDS: INSULIN DETEMIR 100 UNIT/ML 10 ML VIAL SQ SCH (21:16)
[2017-10-20] MEDS: ACETAMINOPHEN TAB 325 MG TAB PO PRN (21:18)
--- NOTE | 2017-10-20 21:36 | PN ---
PROGRESS NOTE DATE OF SERVICE: 10/20/2017 This 71 -year-old woman admitted with right hip fracture with severe pain also. The patient has some gait dysfunction. The patient was evaluated for ECF rehab. Patient also had renal failure as well. The patient has got high potassium today. No chest pain. No palpitations. PHYSICAL EXAM: Alert and oriented times three. Pulse 63, blood pressure 106/49, respiration 18, temperature 97.1, pulse ox 94 percent on room air. HEENT: Conjunctivae normal. Oral mucosa moist. Neck is no jugular venous distention. No carotid bruit. No lymph node enlargement. Cardiovascular system: S1, S2 muffled. Respiratory: Breath sounds diminished in the bases. No rhonchi. No crackles. ABDOMEN: Soft. Nontender. Legs are no edema. No swelling. CENTRAL NERVOUS SYSTEM: No focal deficits. Evaluation of the right arm status post fracture. LABS: WBC 9.2, hemoglobin 7.2, sodium 140, potassium 5.2, creatinine is 1.50. ASSESSMENT: 1. Status post right humerus fracture with severe pain. 2. Multiple falls. 3. Numbness and weakness, gait dysfunction. 4. Acute on chronic renal failure stage III. 5. Hypertension. 6. Chronic atrial fibrillation, not on anticoagulation secondary to intracranial hematoma. 7. History of surgery for removal of blood clot secondary to hematoma. 8. Diabetes mellitus type 2. 9. Hyperkalemia. RECOMMENDATIONS AND DISCUSSION: Recommend to continue current medications, management and symptomatic treatment. Otherwise, at this time, I recommend continue to monitor. PT/OT evaluation. We will monitor the potassium. Repeat labs. Guarded prognosis. Further recommendations to follow. MMODL / IJN: [id number] /
[2017-10-21] MEDS: ACETAMINOPHEN TAB 325 MG TAB PO PRN ×2 (03:06→21:04)
[2017-10-21 03:14] LABS: Glucose,Whole Blood 126 mg/dL (75-99)
[2017-10-21 07:09] LABS: Glucose,Whole Blood 123 mg/dL (75-99)
[2017-10-21] MEDS: INSULIN ASPART 100 UNIT/ML 1 ML 10 ML VIAL SQ SCH ×7 (07:17→21:02)
[2017-10-21] MEDS: SYMBICORT 160-4.5 MCG INHALER INHALATION SCH ×2 (07:34→19:18)
[2017-10-21] MEDS: IPRATROPIUM-ALBUTEROL 3 ML NEB INHALATION SCH ×4 (07:34→19:18)
[2017-10-21] MEDS: DICYCLOMINE 10 MG CAP PO SCH ×3 (07:58→17:09)
[2017-10-21] MEDS: GABAPENTIN 300 MG CAP PO SCH ×2 (07:59→21:02)
[2017-10-21] MEDS: hydrALAZINE HCL 50 MG TAB PO SCH ×3 (07:59→21:02)
[2017-10-21] MEDS: HEPARIN SODIUM,PORCINE 5,000 UNIT/ML 1 ML VIAL SQ SCH ×3 (07:59→23:51)
[2017-10-21] MEDS: SERTRALINE 50 MG TAB PO SCH (07:59)
[2017-10-21] MEDS: CHLORTHALIDONE 25 MG TAB PO SCH (07:59)
[2017-10-21] MEDS: amLODIPine 10 MG TAB PO SCH (07:59)
[2017-10-21] MEDS: LABETALOL 200 MG TAB PO SCH ×2 (08:00→21:02)
--- NOTE | 2017-10-21 10:38 | P.PN ---
Subjective Patient is seen in follow-up for acute kidney injury. She is currently resting in bed. Denies chest pain or shortness of breath. Good urine output. lisinopril was discontinued due to hyperkalemia. Chlorthalidone was added over the weekend. Blood pressure controlled. Awaits placement to rehab. Vital signs are stable. General: The patient appeared well nourished and normally developed. HEENT: Head exam is unremarkable. Neck is without jugular venous distension. LUNGS: Lungs are clear to auscultation and percussion. Breath sounds decreased. HEART: Rate and Rhythm are regular. First and second heart sounds normal. No murmurs, rubs or gallops. ABDOMEN: Abdominal exam reveals normal bowel sounds. Non-tender and non- distended. No evidence of peritonitis. EXTREMITITES: No clubbing, cyanosis, or edema. Objective - Vital Signs Vital signs: Vital Signs Temp 96.9 F L 10/21/17 07:00 Pulse 62 10/21/17 07:00 Resp 20 10/21/17 07:00 BP 145/65 10/21/17 07:00 Pulse Ox 93 L 10/21/17 07:00 Intake & Output 10/20/17 10/21/17 10/21/17 18:59 06:59 18:59 Other: Voiding Method Bedpan Bedpan # Voids 3 2 # Bowel Movements 1 - Labs CBC & Chem 7: 10/18/17 08:52 10/20/17 08:07 Labs: Abnormal Lab Results - Last 24 Hours (Table) 10/20/17 10/20/17 10/20/17 Range/Units 11:56 17:06 20:34 POC Glucose (mg/dL) 135 H 144 H 129 H (75-99) mg/dL 10/21/17 10/21/17 Range/Units 02:52 06:59 POC Glucose (mg/dL) 126 H 123 H (75-99) mg/dL Assessment and Plan Plan: Assessment: 1. Acute kidney injury mostly prerenal. Creatinine a little worse at 1.5 yesterday which is likely related to lisinopril. 2. Chronic kidney disease stage III secondary to nephrosclerosis. Baseline creatinine in the range of 1-1.2. 3. Status post fall with fracture of the right humerus currently resting. 4. Hypertension with chronic kidney disease. Controlled. 5. Mild hyperkalemia secondary to lisinopril. Now discontinued. Plan: Encourage oral intake. Remains off all IV fluids. Avoid nephrotoxins. Awaits placement to rehab. Lactulose PRN constipation. Stable to be discharged from nephrology standpoint. Follow up outpatient in the next 2 weeks. Follow-up morning labs.
[2017-10-21 10:41] LABS: Calcium 8.9 mg/dL (8.4-10.2); Potassium 4.7 mmol/L (3.5-5.1)
[2017-10-21 11:57] LABS: Glucose,Whole Blood 128 mg/dL (75-99)
--- NOTE | 2017-10-21 15:42 | P.PN ---
Subjective Progress Note Date: 10/21/17 Progress note being dictated for Dr. Toledo. Interval history: This a 72-year-old female admitted with right humerus fracture , gait dysfunction, acute renal failure and multiple other medical issues. Evaluated by PT OT and subacute rehab recommended at discharge. Hyperkalemic yesterday, lisinopril discontinued, potassium currently 4.7. Creatinine 1.38. Maintained on chlorthalidone. Denies chest pain, palpitations.Afebrile. Objective - Vital Signs Vital signs: Vital Signs Temp 96.9 F L 10/21/17 07:00 Pulse 62 10/21/17 07:00 Resp 20 10/21/17 07:00 BP 145/65 10/21/17 07:00 Pulse Ox 93 L 10/21/17 07:00 Intake & Output 10/20/17 10/21/17 10/21/17 18:59 06:59 18:59 Weight 78 kg Other: Voiding Method Bedpan Bedpan # Voids 3 2 2 # Bowel Movements 1 - Exam PHYSICAL EXAM: VITAL SIGNS: As above GENERAL: Sitting up in bed, no acute distress HEENT: Conjunctivae normal. eyes normal. Oral mucosa moist NECK: No JVD. No thyroid enlargement. No LNs CARDIOVASCULAR: S1, S2 muffled. No murmur RESPIRATION: Breath sounds diminished in the bases. ABDOMEN: Soft, nontender . No guarding. no masses palpable. Positive Bowel sounds. Extremities: Wearing sling-right arm,LEGS: No edema. no swelling PSYCHIATRY: Alert and oriented -3, mood and affect normal. NERVOUS SYSTEM: Cranial N 2-12 grossly normal. Diffuse weakness No focal deficits. - Labs CBC & Chem 7: 10/18/17 08:52 10/21/17 10:05 Labs: Abnormal Lab Results - Last 24 Hours (Table) 10/20/17 10/20/17 10/21/17 Range/Units 17:06 20:34 02:52 BUN (7-17) mg/dL Creatinine (0.52-1.04) mg/dL Glucose (74-99) mg/dL POC Glucose (mg/dL) 144 H 129 H 126 H (75-99) mg/dL 10/21/17 10/21/17 10/21/17 Range/Units 06:59 10:05 11:35 BUN 29 H (7-17) mg/dL Creatinine 1.38 H (0.52-1.04) mg/dL Glucose 189 H (74-99) mg/dL POC Glucose (mg/dL) 123 H 128 H (75-99) mg/dL Assessment and Plan Assessment: 1. Status post right humerus fracture with severe pain 2. Multiple falls 3. Generalized weakness, and gait dysfunction 4. Hypertension 5. Acute on chronic renal failure, stage III 6. Chronic atrial fibrillation, not on anticoagulation secondary to intracranial bleeding. History of surgery for removal of blood clots secondary to intracranial hematoma. 7. Diabetes mellitus type 2 Plan: Continue on current medication regime ,monitoring and symptomatic treatment.close monitoring of blood pressure, electrolytes with repeat labs ordered for a.m. PT/OT. Discharge planning in progress for subacute rehab. Further recommendations to follow. The impression and plan of care has been dictated as directed. : I performed a history and examination of this patient, discussed the same with the dictator. I agree with the dictator's note ,documented as a scribe. Any additional findings or plans will be noted.
[2017-10-21 17:11] LABS: Glucose,Whole Blood 179 mg/dL (75-99)
[2017-10-21 20:30] LABS: Glucose,Whole Blood 144 mg/dL (75-99)
[2017-10-21] MEDS: INSULIN DETEMIR 100 UNIT/ML 10 ML VIAL SQ SCH (21:03)
[2017-10-22 02:28] LABS: Glucose,Whole Blood 135 mg/dL (75-99)
[2017-10-22 07:23] LABS: Glucose,Whole Blood 135 mg/dL (75-99)
[2017-10-22] MEDS: IPRATROPIUM-ALBUTEROL 3 ML NEB INHALATION SCH ×4 (07:27→19:04)
[2017-10-22] MEDS: SYMBICORT 160-4.5 MCG INHALER INHALATION SCH ×2 (07:27→19:04)
[2017-10-22] MEDS: INSULIN ASPART 100 UNIT/ML 1 ML 10 ML VIAL SQ SCH ×7 (07:40→21:54)
[2017-10-22] MEDS: DICYCLOMINE 10 MG CAP PO SCH ×3 (07:41→17:10)
[2017-10-22] MEDS: HEPARIN SODIUM,PORCINE 5,000 UNIT/ML 1 ML VIAL SQ SCH ×2 (07:41→17:10)
[2017-10-22] MEDS: CHLORTHALIDONE 25 MG TAB PO SCH (07:41)
[2017-10-22] MEDS: amLODIPine 10 MG TAB PO SCH (07:41)
[2017-10-22] MEDS: hydrALAZINE HCL 50 MG TAB PO SCH ×3 (07:42→21:53)
[2017-10-22] MEDS: LABETALOL 200 MG TAB PO SCH ×2 (07:42→21:54)
[2017-10-22] MEDS: GABAPENTIN 300 MG CAP PO SCH ×2 (07:42→21:54)
[2017-10-22] MEDS: SERTRALINE 50 MG TAB PO SCH (07:43)
[2017-10-22 09:00] LABS: Calcium 9.3 mg/dL (8.4-10.2); Potassium 4.9 mmol/L (3.5-5.1)
[2017-10-22] MEDS: ACETAMINOPHEN TAB 325 MG TAB PO PRN ×2 (09:02→17:15)
[2017-10-22 12:51] LABS: Glucose,Whole Blood 163 mg/dL (75-99)
--- NOTE | 2017-10-22 13:03 | P.PN ---
Subjective Patient is seen in follow-up for acute kidney injury. She is currently resting in bed. Denies chest pain or shortness of breath. Good urine output. Lisinopril was discontinued due to hyperkalemia. Chlorthalidone was added over the weekend. Blood pressure controlled. Awaits placement to rehab. Creatinine stable at 1.42 today. Vital signs are stable. General: The patient appeared well nourished and normally developed. HEENT: Head exam is unremarkable. Neck is without jugular venous distension. LUNGS: Lungs are clear to auscultation and percussion. Breath sounds decreased. HEART: Rate and Rhythm are regular. First and second heart sounds normal. No murmurs, rubs or gallops. ABDOMEN: Abdominal exam reveals normal bowel sounds. Non-tender and non- distended. No evidence of peritonitis. EXTREMITITES: No clubbing, cyanosis, or edema. Objective - Vital Signs Vital signs: Vital Signs Temp 97.5 F L 10/22/17 06:30 Pulse 65 10/22/17 06:30 Resp 18 10/22/17 06:30 BP 144/68 10/22/17 06:30 Pulse Ox 96 10/22/17 06:30 Intake & Output 10/21/17 10/22/17 10/22/17 18:59 06:59 18:59 Intake Total 650 Balance 650 Weight 78 kg Intake: Oral 650 Other: Voiding Method Bedpan # Voids 2 2 - Labs CBC & Chem 7: 10/18/17 08:52 10/22/17 07:48 Labs: Abnormal Lab Results - Last 24 Hours (Table) 10/21/17 10/21/17 10/22/17 Range/Units 16:47 20:17 02:12 Carbon Dioxide (22-30) mmol/L BUN (7-17) mg/dL Creatinine (0.52-1.04) mg/dL Glucose (74-99) mg/dL POC Glucose (mg/dL) 179 H 144 H 135 H (75-99) mg/dL 10/22/17 10/22/17 10/22/17 Range/Units 07:14 07:48 12:24 Carbon Dioxide 31 H (22-30) mmol/L BUN 25 H (7-17) mg/dL Creatinine 1.42 H (0.52-1.04) mg/dL Glucose 124 H (74-99) mg/dL POC Glucose (mg/dL) 135 H 163 H (75-99) mg/dL Assessment and Plan Plan: Assessment: 1. Acute kidney injury mostly prerenal from addition of EMILEE inhibitor. Creatinine 1.42 today. 2. Chronic kidney disease stage III secondary to nephrosclerosis. Baseline creatinine in the range of 1-1.2. 3. Status post fall with fracture of the right humerus currently resting. 4. Hypertension with chronic kidney disease. Controlled. 5. Mild hyperkalemia secondary to lisinopril. Improved. Plan: Encourage oral intake. Remains off all IV fluids. Avoid nephrotoxins. Awaits placement to rehab. Lactulose PRN constipation. Stable to be discharged from nephrology standpoint. Follow up outpatient in the next 2 weeks.
[2017-10-22 17:02] LABS: Glucose,Whole Blood 147 mg/dL (75-99)
--- NOTE | 2017-10-22 17:14 | P.PN ---
Subjective Progress Note Date: 10/22/17 Progress note being dictated for Dr. Toledo. Interval history: This a 72-year-old female admitted with right humerus fracture , gait dysfunction, acute renal failure and multiple other medical issues. Evaluated by PT OT and subacute rehab recommended at discharge. Hyperkalemic yesterday, lisinopril discontinued, potassium currently 4.7. Creatinine 1.38. Maintained on chlorthalidone. Denies chest pain, palpitations.Afebrile. 10/22/2017 doing well, pain controlled. Creatinine 1.42. Good diet intake, blood sugars controlled.VSS. His chest pain, palpitations or increased shortness of breath. Objective - Vital Signs Vital signs: Vital Signs Temp 97.9 F 10/22/17 15:00 Pulse 60 10/22/17 15:00 Resp 18 10/22/17 15:00 BP 139/64 10/22/17 15:00 Pulse Ox 94 L 10/22/17 15:00 Intake & Output 10/21/17 10/22/17 10/22/17 18:59 06:59 18:59 Intake Total 650 900 Balance 650 900 Weight 78 kg Intake: Oral 650 900 Other: Voiding Method Bedpan # Voids 2 2 3 # Bowel Movements 1 - Exam PHYSICAL EXAM: VITAL SIGNS: As above GENERAL: Sitting up in bed, no acute distress. Wearing sling. HEENT: Conjunctivae normal. eyes normal. Oral mucosa moist NECK: No JVD. No thyroid enlargement. No LNs CARDIOVASCULAR: S1, S2 muffled. No murmur RESPIRATION: Breath sounds diminished in the bases. No rhonchi, no wheezing, no crackles ABDOMEN: Soft, nondistended, nontender . No guarding. no masses palpable. Positive Bowel sounds. Extremities: Wearing sling-right arm,LEGS: No edema. no swelling PSYCHIATRY: Alert and oriented -3, mood and affect normal. NERVOUS SYSTEM: Cranial N 2-12 grossly normal. Diffuse weakness No focal deficits. - Labs CBC & Chem 7: 10/18/17 08:52 10/22/17 07:48 Labs: Abnormal Lab Results - Last 24 Hours (Table) 10/21/17 10/21/17 10/22/17 Range/Units 16:47 20:17 02:12 Carbon Dioxide (22-30) mmol/L BUN (7-17) mg/dL Creatinine (0.52-1.04) mg/dL Glucose (74-99) mg/dL POC Glucose (mg/dL) 179 H 144 H 135 H (75-99) mg/dL 10/22/17 10/22/17 10/22/17 Range/Units 07:14 07:48 12:24 Carbon Dioxide 31 H (22-30) mmol/L BUN 25 H (7-17) mg/dL Creatinine 1.42 H (0.52-1.04) mg/dL Glucose 124 H (74-99) mg/dL POC Glucose (mg/dL) 135 H 163 H (75-99) mg/dL 10/22/17 Range/Units 16:56 Carbon Dioxide (22-30) mmol/L BUN (7-17) mg/dL Creatinine (0.52-1.04) mg/dL Glucose (74-99) mg/dL POC Glucose (mg/dL) 147 H (75-99) mg/dL Assessment and Plan Assessment: 1. Status post right humerus fracture with severe pain, improving 2. Multiple falls 3. Generalized weakness, and gait dysfunction 4. Hypertension 5. Acute on chronic renal failure, stage III 6. Chronic atrial fibrillation, not on anticoagulation secondary to intracranial bleeding. History of surgery for removal of blood clots secondary to intracranial hematoma. 7. Diabetes mellitus type 2, controlled Plan: Continue on current medication regime ,monitoring and symptomatic treatment.close monitoring of Accu-Cheks, electrolytes. Repeat labs ordered for a.m. PT/OT. Discharge planning in progress for subacute rehab. Further recommendations to follow. The impression and plan of care has been dictated as directed. : I performed a history and examination of this patient, discussed the same with the dictator. I agree with the dictator's note ,documented as a scribe. Any additional findings or plans will be noted.
[2017-10-22 20:54] LABS: Glucose,Whole Blood 147 mg/dL (75-99)
[2017-10-22] MEDS: INSULIN DETEMIR 100 UNIT/ML 10 ML VIAL SQ SCH (21:54)
[2017-10-23] MEDS: HEPARIN SODIUM,PORCINE 5,000 UNIT/ML 1 ML VIAL SQ SCH ×4 (00:11→23:04)
[2017-10-23 03:00] LABS: Glucose,Whole Blood 169 mg/dL (75-99)
[2017-10-23] MEDS: ACETAMINOPHEN TAB 325 MG TAB PO PRN ×2 (05:59→23:02)
[2017-10-23 07:07] LABS: Glucose,Whole Blood 139 mg/dL (75-99)
[2017-10-23] MEDS: IPRATROPIUM-ALBUTEROL 3 ML NEB INHALATION SCH ×4 (07:22→18:54)
[2017-10-23] MEDS: SYMBICORT 160-4.5 MCG INHALER INHALATION SCH ×2 (07:22→18:54)
[2017-10-23] MEDS: INSULIN ASPART 100 UNIT/ML 1 ML 10 ML VIAL SQ SCH ×7 (08:33→21:24)
[2017-10-23] MEDS: hydrALAZINE HCL 50 MG TAB PO SCH ×3 (08:35→21:24)
[2017-10-23] MEDS: SERTRALINE 50 MG TAB PO SCH (08:35)
[2017-10-23] MEDS: GABAPENTIN 300 MG CAP PO SCH ×2 (08:35→21:24)
[2017-10-23] MEDS: amLODIPine 10 MG TAB PO SCH (08:35)
[2017-10-23] MEDS: CHLORTHALIDONE 25 MG TAB PO SCH (08:35)
[2017-10-23] MEDS: DICYCLOMINE 10 MG CAP PO SCH ×3 (08:35→18:01)
[2017-10-23] MEDS: LABETALOL 200 MG TAB PO SCH ×2 (08:35→21:24)
[2017-10-23 16:46] LABS: Glucose,Whole Blood 147 mg/dL (75-99)
[2017-10-23 17:37] LABS: Glucose,Whole Blood 100 mg/dL (75-99)
--- NOTE | 2017-10-23 18:46 | P.PN ---
Subjective Progress Note Date: 10/23/17 Progress note being dictated for Dr. Toledo. Interval history: This a 72-year-old female admitted with right humerus fracture , gait dysfunction, acute renal failure and multiple other medical issues. Evaluated by PT OT and subacute rehab recommended at discharge. Hyperkalemic yesterday, lisinopril discontinued, potassium currently 4.7. Creatinine 1.38. Maintained on chlorthalidone. Denies chest pain, palpitations.Afebrile. 10/22/2017 doing well, pain controlled. Creatinine 1.42. Good diet intake, blood sugars controlled.VSS. His chest pain, palpitations or increased shortness of breath. 10/23/2017 vital signs stable. Consuming 50% of MEALS. Blood sugars controlled. No nausea vomiting or diarrhea. Denies chest pain, palpitations or increased shortness of breath. Objective - Vital Signs Vital signs: Vital Signs Temp 97.1 F L 10/23/17 15:00 Pulse 61 10/23/17 15:00 Resp 18 10/23/17 15:00 BP 151/57 10/23/17 15:00 Pulse Ox 98 10/23/17 15:00 Intake & Output 10/22/17 10/23/17 10/23/17 18:59 06:59 18:59 Intake Total 900 300 Balance 900 300 Intake: Oral 900 300 Other: Voiding Method Bedpan # Voids 3 2 3 # Bowel Movements 1 0 - Exam PHYSICAL EXAM: VITAL SIGNS: As above GENERAL: Sitting up in bed, no acute distress. Wearing sling. HEENT: Conjunctivae normal. eyes normal. Oral mucosa moist NECK: No JVD. No thyroid enlargement. No LNs CARDIOVASCULAR: S1, S2 muffled. No murmur RESPIRATION: Breath sounds diminished in the bases. ABDOMEN: Soft, nondistended, nontender . No guarding. no masses palpable. Positive Bowel sounds. Extremities: Wearing sling-right arm,LEGS: No edema. no swelling PSYCHIATRY: Alert and oriented -3, mood and affect normal. NERVOUS SYSTEM: Cranial N 2-12 grossly normal. Diffuse weakness No focal deficits. - Labs CBC & Chem 7: 10/18/17 08:52 10/22/17 07:48 Labs: Abnormal Lab Results - Last 24 Hours (Table) 10/22/17 10/23/17 10/23/17 Range/Units 20:35 02:51 06:56 POC Glucose (mg/dL) 147 H 169 H 139 H (75-99) mg/dL 10/23/17 Range/Units 12:19 POC Glucose (mg/dL) 147 H (75-99) mg/dL Assessment and Plan Assessment: 1. Status post right humerus fracture with severe pain, improving 2. Multiple falls 3. Generalized weakness, and gait dysfunction 4. Hypertension 5. Acute on chronic renal failure, stage III 6. Chronic atrial fibrillation, not on anticoagulation secondary to intracranial bleeding. History of surgery for removal of blood clots secondary to intracranial hematoma. 7. Diabetes mellitus type 2, controlled Plan: Continue on current medication regime ,monitoring and symptomatic treatment.close monitoring of Accu-Cheks, electrolytes. Encourage oral intake .crease ambulation as tolerated . pt/ot.Discharge planning in progress for subacute rehab. The impression and plan of care has been dictated as directed. : I performed a history and examination of this patient, discussed the same with the dictator. I agree with the dictator's note ,documented as a scribe. Any additional findings or plans will be noted.
[2017-10-23 20:47] LABS: Glucose,Whole Blood 233 mg/dL (75-99)
[2017-10-23] MEDS: INSULIN DETEMIR 100 UNIT/ML 10 ML VIAL SQ SCH (21:25)
[2017-10-24 05:36] LABS: Glucose,Whole Blood 143 mg/dL (75-99)
[2017-10-24 06:29] VITALS: BP 160/62; PULSE 61; RESP 17; TEMP 97.4
[2017-10-24] MEDS: SYMBICORT 160-4.5 MCG INHALER INHALATION SCH (07:06)
[2017-10-24] MEDS: IPRATROPIUM-ALBUTEROL 3 ML NEB INHALATION SCH ×2 (07:06→10:49)
[2017-10-24 07:07] LABS: Glucose,Whole Blood 138 mg/dL (75-99)
[2017-10-24] MEDS: INSULIN ASPART 100 UNIT/ML 1 ML 10 ML VIAL SQ SCH ×4 (07:49→12:45)
[2017-10-24] MEDS: DICYCLOMINE 10 MG CAP PO SCH ×2 (07:50→13:25)
[2017-10-24] MEDS: hydrALAZINE HCL 50 MG TAB PO SCH (07:50)
[2017-10-24] MEDS: amLODIPine 10 MG TAB PO SCH (07:50)
[2017-10-24] MEDS: LABETALOL 200 MG TAB PO SCH (07:50)
[2017-10-24] MEDS: HEPARIN SODIUM,PORCINE 5,000 UNIT/ML 1 ML VIAL SQ SCH (07:51)
[2017-10-24] MEDS: SERTRALINE 50 MG TAB PO SCH (07:51)
[2017-10-24] MEDS: GABAPENTIN 300 MG CAP PO SCH (07:51)
[2017-10-24] MEDS: CHLORTHALIDONE 25 MG TAB PO SCH (07:51)
[2017-10-24 11:39] LABS: Glucose,Whole Blood 125 mg/dL (75-99)
--- NOTE | 2017-10-24 12:47 | P.PN ---
Subjective Progress Note Date: 10/24/17 Principal diagnosis: The 72-year-old female seen in consultation because of acute kidney injury, after a fall with fracture of her right humerus. She is known with diabetes hypertension atrial fibrillation coronary artery disease uterine cancer. Currently she is feeling much better denies any complaints is able to ambulate has good appetite no fever chills cough shortness of breath dizziness. No dysuria frequency or diarrhea and she continues to be weak and unable to walk and needs rehab. Her labs showed that the creatinine went up to 1.5 from 1.2, her potassium went up to 5.4. No new complaints. Objective - Vital Signs Vital signs: Vital Signs Temp 97.4 F L 10/24/17 06:28 Pulse 61 10/24/17 08:00 Resp 17 10/24/17 08:00 BP 160/62 10/24/17 06:28 Pulse Ox 96 10/24/17 06:28 Intake & Output 10/23/17 10/24/17 10/24/17 18:59 06:59 18:59 Other: Voiding Method Bedpan Bedside Commode # Voids 3 2 # Bowel Movements 0 Examination awake alert oriented comfortable and cheerful HEENT exam no JVP neck is supple no facial asymmetry Lungs are clear to auscultation good air entry bilaterally Heart sounds are unremarkable for any murmur rub gallop. Abdomen soft nontender Extremity exam was no edema Her right arm is in sling because of the humerus fracture. Neurologically awake alert oriented. - Labs CBC & Chem 7: 10/18/17 08:52 10/22/17 07:48 Labs: Abnormal Lab Results - Last 24 Hours (Table) 10/23/17 10/23/17 10/23/17 Range/Units 12:19 16:55 20:45 POC Glucose (mg/dL) 147 H 100 H 233 H (75-99) mg/dL 10/24/17 10/24/17 10/24/17 Range/Units 05:34 07:05 11:37 POC Glucose (mg/dL) 143 H 138 H 125 H (75-99) mg/dL Assessment and Plan Assessment: Impression 1. Acute kidney injury secondary to prerenal from fall and fracture of right humerus. Creatinine down to 1.29 as of 10/18/2017, went up to 1.5 as of 2017 likely secondary to the lisinopril. There is history of ESRD in her son at age 18 and therefore had a hereditary disease need to be considered. Ultrasound does not show any cystic kidney disease. There is no history suggestive of alports, or Fabrys disease. For now there is nothing more needs to be done 2. Hyperkalemia potassium of 5.4 secondary to lisinopril. Resolved off of the lisinopril. 2. Chronic kidney disease stage III, Baseline creatinine is approximately at its best 1.2 recently on 07/24/2017. Urinalysis has no proteinuria dated 2079 3. Hypertension less than optimally controlled. Systolic 144-152 4. Status post fall and fracture of right humerus Recommendation. 1. Continue the same medications 2. We'll check labs tomorrow 4. Her son was supposedly on dialysis from age 18 the cause of the kidney disease is unclear he at around age 50.
[2017-10-24 13:49] LABS: Calcium 9.3 mg/dL (8.4-10.2); Potassium 4.7 mmol/L (3.5-5.1)
--- NOTE | 2017-10-24 14:35 | P.DS ---
Providers Date of admission: 10/07/17 14:30 Attending physician: Leatha Toledo Consults: 10/05/17 16:55 Consult Physician Stat Consulting Provider: Lisa Willingham Consult Reason/Comments: COPD, hypoxia Do you want consulting provider notified?: Yes 10/06/17 09:58 Consult Physician Routine Consulting Provider: Karolyn Arora Consult Reason/Comments: CHAITANYA Do you want consulting provider notified?: Yes Primary care physician: Lisa Willingham Hospital Course: Final Diagnoses: 1. Stable post right humerus fracture with severe pain, improving 2. Multiple falls 3. Generalized weakness, and gait dysfunction 4. Hypertension 5. Acute on chronic renal failure, stage III 6. Chronic atrial fibrillation, not on anticoagulation secondary to intracranial bleeding. History of surgery for removal of blood clots secondary to intracranial hematoma. 7. Diabetes mellitus type 2 Hospital course:This a 72-year-old female admitted with right humerus fracture, gait dysfunction and multiple other medical issues. Evaluated by orthopedic surgery, nephrology ,PT OT. Maintained on gentle IV fluid hydration, Renal function improving . Significant clinical improvement. Patient has been cleared for discharge by all consults. Patient is being discharged to subacute rehab. in a stable condition with guarded prognosis. EXAM: GENERAL: Alert and oriented 3, no acute distress CARDIOVASCULAR: S1, S2 muffled. No murmur RESPIRATION: Breath sounds diminished in the bases. ABDOMEN: Soft, nontender . Bowel sounds heard. NERVOUS SYSTEM: No focal deficits. The impression and plan of care has been dictated as directed. : I performed a history and examination of this patient, discussed the same with the dictator. I agree with the dictator's note ,documented as a scribe. Any additional findings or plans will be noted. Time taken: 35 minutes Patient Condition at Discharge: Stable Plan - Discharge Summary Discharge Rx Participant: No New Discharge Prescriptions: New Budesonide-Formot 160-4.5 Mcg [Symbicort 160-4.5 Mcg Inhaler] 2 puff INHALATION RT-BID #1 inh Polyethylene Glycol 3350 [Miralax] 17 gm PO DAILY PRN powd.pack PRN Reason: Constipation Sennosides [Senokot] 8.6 mg PO DAILY PRN tab PRN Reason: Constipation Insulin Detemir [Levemir] 50 unit SQ HS syr INSULIN LISPRO (HumaLOG) [humaLOG] 0 unit SQ ACHS #1 vial Labetalol [Trandate] 200 mg PO Q12HR tab Acetaminophen Tab [Tylenol] 650 mg PO Q4HR PRN tab PRN Reason: Mild To Moderate Pain Continue Sertraline [Zoloft] 150 mg PO DAILY Gabapentin [Neurontin] 300 mg PO BID amLODIPine [Norvasc] 10 mg PO DAILY #30 tab Dicyclomine [Bentyl] 10 mg PO TID-W/MEALS Ferrous Sulfate [Iron (65 MG Elemental)] 325 mg PO BID #60 tab Ipratropium-Albuterol Nebulize [Duoneb 0.5 mg-3 mg/3 ml Soln] 3 ml INHALATION RT-QID #0 Changed hydrALAZINE HCL 100 mg PO TID #90 Discontinued Insulin Detemir [Levemir Flexpen] 56 units SQ AC-SUPPER Acetaminophen Tab [Tylenol] 500 mg PO Q6HR PRN PRN Reason: Pain Potassium Chloride 8 meq PO DAILY Labetalol HCl 100 mg PO Q12H Furosemide [Lasix] 40 mg PO DAILY #0 Discharge Medication List Sertraline [Zoloft] 150 mg PO DAILY 01/04/14 [History] Gabapentin [Neurontin] 300 mg PO BID 04/22/16 [History] amLODIPine [Norvasc] 10 mg PO DAILY #30 tab 05/04/16 [Rx] Dicyclomine [Bentyl] 10 mg PO TID-W/MEALS 03/21/17 [History] Ferrous Sulfate [Iron (65 MG Elemental)] 325 mg PO BID #60 tab 07/19/17 [Rx] Budesonide-Formot 160-4.5 Mcg [Symbicort 160-4.5 Mcg Inhaler] 2 puff INHALATION RT-BID #1 inh 10/09/17 [Rx] Ipratropium-Albuterol Nebulize [Duoneb 0.5 mg-3 mg/3 ml Soln] 3 ml INHALATION RT -QID #0 10/09/17 [Rx] Polyethylene Glycol 3350 [Miralax] 17 gm PO DAILY PRN powd.pack 10/09/17 [Rx] Sennosides [Senokot] 8.6 mg PO DAILY PRN tab 10/09/17 [Rx] hydrALAZINE HCL 100 mg PO TID #90 08/08/18 [Rx] Acetaminophen Tab [Tylenol] 650 mg PO Q4HR PRN tab 10/18/17 [Rx] INSULIN LISPRO (HumaLOG) [humaLOG] 0 unit SQ ACHS #1 vial 10/18/17 [Rx] Insulin Detemir [Levemir] 50 unit SQ HS syr 10/18/17 [Rx] Labetalol [Trandate] 200 mg PO Q12HR tab 10/18/17 [Rx] Follow up Appointment(s)/Referral(s): Lisa Willingham MD [Primary Care Provider] - 1 Week (after dc from [facility]) Karolyn Arora MD [STAFF PHYSICIAN] - 1 Week (Dr. Arora's office will be calling patient with an appointment date and time. ) Shahab Schroeder MD [STAFF PHYSICIAN] - 3 Days (While at [facility]) Jose Camacho [NON-STAFF] - 1 Week Dennis Tucker DO [Doctor of Osteopathic Medicine] - 10/23/17 1:00 pm [facility] Visiting Nurse, [NON-STAFF] - 1 Week Ambulatory/Diagnostic Orders: Complete Blood Count w/diff [LAB.AMB] Time Frame: 3 Days, Location: None Selected Patient Instructions/Handouts: Elbow Fracture (DC), Syncope (DC), Type 2 Diabetes in Adults (DC), COPD (Chronic Obstructive Pulmonary Disease) (DC), Fall Prevention (DC) Activity/Diet/Wound Care/Special Instructions: Maintain sling to right upper extremity as advised per ortho. Rest and ice. Cardiac, diabetic diet. Check blood sugar before meals and maintain log, take to follow up visit with PCP for further recommendation. Limited activity until follow up with primary. Oxygen at 2-3 liters nasal cannula PRN. cbc,bmp in 3 days
== END 2017-10-24 15:42 | DRG 562 ==
LOC: EC 13:33 → 6SEL 17:31 → 5MS5E 10-06 16:45 → OBSVTOIN 10-07 14:30 → 5MS5E 10-09 23:03 → 4MS4W 10-12 17:27
PROVIDERS: ADMIT Hospitalist; ATTEND Hospitalist
DX: S42.201A Unspecified fracture of upper end of right humerus, initial encounter for closed fracture (principal); N18.6 End stage renal disease; I13.2 Hypertensive heart and chronic kidney disease with heart failure and with stage 5 chronic kidney disease, or end stage renal disease; I50.32 Chronic diastolic (congestive) heart failure; N17.9 Acute kidney failure, unspecified; I48.2 Chronic atrial fibrillation; E11.21 Type 2 diabetes mellitus with diabetic nephropathy; E11.649 Type 2 diabetes mellitus with hypoglycemia without coma; E87.5 Hyperkalemia; E11.22 Type 2 diabetes mellitus with diabetic chronic kidney disease; J44.9 Chronic obstructive pulmonary disease, unspecified; E86.1 Hypovolemia; F32.9 Major depressive disorder, single episode, unspecified; K59.00 Constipation, unspecified; R09.02 Hypoxemia; R26.9 Unspecified abnormalities of gait and mobility; R25.1 Tremor, unspecified; M54.5 Low back pain; E78.5 Hyperlipidemia, unspecified; I25.10 Atherosclerotic heart disease of native coronary artery without angina pectoris; J45.20 Mild intermittent asthma, uncomplicated; M51.36 Other intervertebral disc degeneration, lumbar region; M19.91 Primary osteoarthritis, unspecified site; T46.4X5A Adverse effect of angiotensin-converting-enzyme inhibitors, initial encounter; R29.6 Repeated falls; Z79.4 Long term (current) use of insulin; Z79.899 Other long term (current) drug therapy; Z94.7 Corneal transplant status; Z90.710 Acquired absence of both cervix and uterus; Z85.42 Personal history of malignant neoplasm of other parts of uterus; Z86.14 Personal history of Methicillin resistant Staphylococcus aureus infection; Z87.81 Personal history of (healed) traumatic fracture; Z86.79 Personal history of other diseases of the circulatory system; Z85.828 Personal history of other malignant neoplasm of skin; Z95.0 Presence of cardiac pacemaker; Z86.19 Personal history of other infectious and parasitic diseases; Z90.49 Acquired absence of other specified parts of digestive tract; Z88.2 Allergy status to sulfonamides; Z91.040 Latex allergy status; Z82.49 Family history of ischemic heart disease and other diseases of the circulatory system; Z82.5 Family history of asthma and other chronic lower respiratory diseases; Z84.1 Family history of disorders of kidney and ureter; Z80.9 Family history of malignant neoplasm, unspecified; W19.XXXA Unspecified fall, initial encounter; Y92.002 Bathroom of unspecified non-institutional (private) residence as the place of occurrence of the external cause
CPT/HCPCS: 36415; 70450; 71046; 72100; 72125; 76770; 80048; 80053; 80061; 81001; 82550; 82553; 83036; 84484; 85025; 85610; 85730; 93005; 93306; 94640; 94760; 96374; 99285

== ENCOUNTER 2017-12-10 01:01 | Emergency (ER) | payer MEDICARE ==
[2017-12-10 01:13] VITALS: TEMP 98.4
--- NOTE | 2017-12-10 01:20 | ED ---
Extremity Problem HPI - General Source: patient, family, RN notes reviewed Mode of arrival: EMS Limitations: no limitations <Shawnee Wood - Last Filed: 12/10/17 02:23> <Jessenia Angulo - Last Filed: 12/10/17 03:28> - General Chief complaint: Extremity Problem,Nontraumatic Stated complaint: Arm pain Time Seen by Provider: 12/10/17 01:05 - History of Present Illness Initial comments: This is a 72-year-old female who presents to the emergency department with chief complaint of right arm pain. Patient reports fracturing her right humerus 2 months ago. She states that she has been following up with Dr. Dennis Tucker. No surgical interventions were needed. She states that this evening she was using the bathroom at home. She states that she reached in front of herself, grabbed onto the assistance bar, pulled herself up and had an increase in arm pain. Denies any falls or specific injuries. States that she is having difficulty moving the arm due to pain. Denies fever, chills, chest pain, shortness of breath, abdominal pain, nausea or vomiting, numbness or tingling. (Shawnee Wood) - Related Data Home Medications Medication Instructions Recorded Confirmed Sertraline [Zoloft] 150 mg PO DAILY 01/04/14 10/05/17 Gabapentin [Neurontin] 300 mg PO BID 04/22/16 10/05/17 Dicyclomine [Bentyl] 10 mg PO TID-W/MEALS 03/21/17 10/05/17 Previous Rx's Medication Instructions Recorded amLODIPine [Norvasc] 10 mg PO DAILY #30 tab 05/04/16 Ferrous Sulfate [Iron (65 MG 325 mg PO BID #60 tab 07/19/17 Elemental)] Budesonide-Formot 160-4.5 Mcg 2 puff INHALATION RT-BID #1 inh 10/09/17 [Symbicort 160-4.5 Mcg Inhaler] Ipratropium-Albuterol Nebulize 3 ml INHALATION RT-QID #0 10/09/17 [Duoneb 0.5 mg-3 mg/3 ml Soln] Polyethylene Glycol 3350 [Miralax] 17 gm PO DAILY PRN powd.pack 10/09/17 Sennosides [Senokot] 8.6 mg PO DAILY PRN tab 10/09/17 hydrALAZINE HCL 100 mg PO TID #90 10/09/17 Acetaminophen Tab [Tylenol] 650 mg PO Q4HR PRN tab 10/18/17 INSULIN LISPRO (HumaLOG) [humaLOG] 0 unit SQ ACHS #1 vial 10/18/17 Insulin Detemir [Levemir] 50 unit SQ HS syr 10/18/17 Labetalol [Trandate] 200 mg PO Q12HR tab 10/18/17 HYDROcodone/APAP 5-325MG [[place] 5] 1 each PO Q6HR PRN #10 tab 12/10/17 Allergies Allergy/AdvReac Type Severity Reaction Status Date / Time Latex, Natural Rubber Allergy Itching Verified 12/10/17 01:12 sulfamethoxazole Allergy Rash/Hives Verified 12/10/17 01:12 [From Bactrim] trimethoprim [From Bactrim] Allergy Rash/Hives Verified 12/10/17 01:12 Review of Systems ROS Other: All systems not noted in ROS Statement are negative. <Shawnee Wood M - Last Filed: 12/10/17 02:23> ROS Other: All systems not noted in ROS Statement are negative. <Jessenia Angulo - Last Filed: 12/10/17 03:28> ROS Statement: Those systems with pertinent positive or pertinent negative responses have been documented in the HPI. Past Medical History Past Medical History: Atrial Fibrillation, Asthma, Diabetes Mellitus, Hypertension, Osteoarthritis (OA) Additional Past Medical History / Comment(s): Hypertension, diabetes mellitus, hyperlipidemia, paroxysmal defibrillation maintained on long-term articulation with warfarin (no longer taking), bronchial asthma, previous cardiac catheterization from January 2014 showing a mild coronary artery disease involving the LAD, uterine cancer 1994, broken left arm in 2006, skin cancer/ resected , history of C. diff colitis, chronic renal failure, history of intracranial hemorrhage status post surgery with blood clot removal, chronic atrial fibrillation, CHF with diastolic dysfunction and ejection fraction of 55% , hypertension, History of Any Multi-Drug Resistant Organisms: MRSA Date of last positivie culture/infection: 06/09/11 MDRO Source:: Thumb Past Surgical History: Cholecystectomy, Hysterectomy Additional Past Surgical History / Comment(s): eye sx cornea transplant, "blood clot removed from brain", pacemaker 2016 Past Anesthesia/Blood Transfusion Reactions: No Reported Reaction Additional Past Anesthesia/Blood Transfusion Reaction / Comment(s): no previous blood transfusions Past Psychological History: Depression Smoking Status: Never smoker Past Alcohol Use History: None Reported Past Drug Use History: None Reported - Past Family History Mother Family Medical History: Cancer, COPD, Hypertension Father Family Medical History: Cancer, Hypertension <Shawnee Wood M - Last Filed: 12/10/17 02:23> General Exam Limitations: no limitations <Shawnee Wood - Last Filed: 12/10/17 02:23> <Grover Angulossvivian Thompson - Last Filed: 12/10/17 03:28> - General Exam Comments Initial Comments: General: Awake and alert, well-developed; in no apparent distress. Lying on ED stretcher with ice pack on right upper arm. HEENT: Head atraumatic, normocephalic. Pupils are equal, round and reactive to light. Extraocular movements intact. Oropharynx moist without erythema or exudate. Neck: Supple. Normal ROM. Cardiovascular: Regular rate and rhythm. No murmurs, rubs or gallops. Chest symmetrical. Respiratory: Lungs clear to auscultation bilaterally. No wheezes, rales or rhonchi. Normal respiratory effort with no use of accessory muscles. Musculoskeletal: Patient unable to actively move the right shoulder due to pain. There is normal range of motion of the right elbow, wrist and fingers. There is tenderness on palpation of mid right upper arm. No swelling, erythema or ecchymosis is noted. Sensation is intact. Radial pulses are 2+ equal and palpable bilaterally. Skin: [place], warm and dry without rashes or lesions. Neurological: Alert and oriented x3. CN II-XII grossly intact. Speech is fluent and answers are appropriate. No focal neuro deficits. (Shawnee Wood) Vital Signs 12/10/17 12/10/17 12/10/17 01:09 01:42 02:24 Temperature 98.4 F Pulse Rate 60 60 61 Respiratory 20 16 Rate Blood Pressure 200/80 187/103 O2 Sat by Pulse 88 L 97 Oximetry Procedures - Orthopedic Splinting/Casting Injury #1 Side: right Upper Extremity Injury Location: long arm Upper Extremity Immobilizer: posterior splint, synthetic pre-padded splint <Shawnee Wood - Last Filed: 12/10/17 02:23> Medical Decision Making - Radiology Data Radiology results: report reviewed, image reviewed <Shawnee Wood - Last Filed: 12/10/17 02:23> <Jessenia Angulo - Last Filed: 12/10/17 03:28> - Medical Decision Making This is a 62-year-old female presents to the emergency department with chief complaint of right arm pain. Patient reports breaking her right humerus 2 months ago. She states that this evening she was using assistance prior to pull herself off of the toilet and felt an increase in her right arm pain. Patient has limited range of motion of the right shoulder due to pain. She is neurovascularly intact. Full range of motion of the distal joints. X-ray of the right humerus was obtained which revealed evidence for an acute oblique fracture through the right proximal humeral shaft. Findings were discussed with patient and her son at bedside. A long arm OCL posterior splint is placed. Patient tolerated well without complication. She is neurovascularly intact. Instructed patient to follow-up with Dr. Tucker in the morning. She is provided with a prescription for [place] for pain management. Opioid start talking consent is signed and patient understands the risks of taking this medication. Instructed her to only take it if needed for severe pain. Patient' s vital signs are stable and she is in no acute distress. She will be discharged home at this time. She is in agreement with plan and voices understanding. All questions were answered. Case and x-ray imaging was discussed and reviewed with attending physician, Dr. Angulo. (Shawnee Wood) I was available for consultation in the emergency department. The history and physical exam were done by the midlevel provider. I was consulted for this patient's care. I reviewed the case with the midlevel provider and based on their presentation of the patient, I agree with the assessment, medical decision making and plan of care as documented. (Jessenia Angulo) - Radiology Data X-ray right humerus impression: There is acute oblique fracture proximal shaft of the humerus that is new compared to old exam. Healing humeral neck fracture. (Shawnee Wood) Disposition Is patient prescribed a controlled substance at d/c from ED?: No Time of Disposition: 02:24 <Shawnee Wood - Last Filed: 12/10/17 02:23> <Jessenia Angulo P - Last Filed: 12/10/17 03:28> Clinical Impression: Right humeral fracture Disposition: HOME SELF-CARE Condition: Good Instructions: Arm Fracture in Adults (ED) Additional Instructions: As discussed, please follow-up with Dr. Tucker in the morning. Please keep splint clean, dry and intact. Please take medications as prescribed. Please follow up with primary care provider within 1-2 days. Return to emergency department if symptoms should worsen or any concerns arise. Prescriptions: HYDROcodone/APAP 5-325MG [[place] 5] 1 each PO Q6HR PRN #10 tab PRN Reason: Pain Referrals: Lisa Willingham MD [Primary Care Provider] - 1-2 days Dennis Tucker DO [Doctor of Osteopathic Medicine] - 1-2 days
--- NOTE | 2017-12-10 01:41 | XR ---
EXAMINATION TYPE: XR humerus RT DATE OF EXAM: 12/10/2017 COMPARISON: 10/05/2017 HISTORY: Pain TECHNIQUE: 2 views FINDINGS: There is some sclerosis at the humeral neck related to healing impacted humeral head fractu re. There is an acute oblique fracture proximal shaft of the humerus. IMPRESSION: There is acute oblique fracture proximal shaft of the humerus that is new compared to old exam. Healing humeral neck fracture.
[2017-12-10 01:44] VITALS: BP 187/103; RESP 16
[2017-12-10] MEDS ORDERED: MORPHINE SULFATE 4 MG/ML SYRINGE IVP STA (02:09)
[2017-12-10 02:26] VITALS: PULSE 61
== END 2017-12-10 02:24 | disposition home or self-care (01) ==
LOC: EC 01:01
DX: S42.331A Displaced oblique fracture of shaft of humerus, right arm, initial encounter for closed fracture (principal); F32.9 Major depressive disorder, single episode, unspecified; Z85.42 Personal history of malignant neoplasm of other parts of uterus; Z85.828 Personal history of other malignant neoplasm of skin; Z86.14 Personal history of Methicillin resistant Staphylococcus aureus infection; Z95.818 Presence of other cardiac implants and grafts; Z95.0 Presence of cardiac pacemaker; Z79.899 Other long term (current) drug therapy; Z91.040 Latex allergy status; Z88.2 Allergy status to sulfonamides; X58.XXXA Exposure to other specified factors, initial encounter; Y92.002 Bathroom of unspecified non-institutional (private) residence as the place of occurrence of the external cause
CPT/HCPCS: 73060; 99284; 29105; 96374; J2270

== ENCOUNTER 2018-03-27 21:08 | Emergency (ER) | payer MEDICARE, OTHER ==
[2018-03-27] MEDS ORDERED: SODIUM CHLORIDE 0.9% 1,000 ML IV STA (21:17)
--- NOTE | 2018-03-27 21:23 | ED ---
General Adult HPI - General Chief complaint: Altered Mental Status Stated complaint: Neuro Symptoms Time Seen by Provider: 03/27/18 21:17 Source: patient, family, EMS, RN notes reviewed Mode of arrival: EMS Limitations: altered mental status, physical limitation - History of Present Illness Initial comments: Patient is a pleasant 72-year-old female presenting to the emergency department by EMS with concern for stroke. Patient has very limited ability to provide history. EMS states patient had noticed left-sided weakness and slurred speech that progressed. Patient did lean towards left and did have generalized tonic- clonic seizure activity lasting around 1 minute. Daughter is present and states that patient's last known well was around 3:30. She states she got home around 6:30 or 7 and found patient having symptoms. EMS states there was another family member who felt that symptoms may have begun just a half an hour prior to arrival. In addition patient does have reported history of some sort of previous brain surgery. - Related Data Home Medications Medication Instructions Recorded Confirmed Sertraline [Zoloft] 150 mg PO DAILY 01/04/14 03/27/18 Dicyclomine [Bentyl] 10 mg PO AC-TID 03/21/17 03/27/18 Albuterol Inhaler [Ventolin Hfa 1 - 2 puff INHALATION RT-Q6H 03/27/18 03/27/18 Inhaler] Calcium Carbonate 500 mg PO DAILY 03/27/18 03/27/18 Ferrous Sulfate [Iron (65 MG 325 mg PO DAILY 03/27/18 03/27/18 Elemental)] Furosemide [Lasix] 40 mg PO DAILY 03/27/18 03/27/18 Insulin Glargine [Lantus] 56 unit SQ HS 03/27/18 03/27/18 Labetalol [Trandate] 100 mg PO Q12H 03/27/18 03/27/18 Potassium Chloride [Klor-Con 8] 8 meq PO DAILY 03/27/18 03/27/18 hydrALAZINE HCL 50 mg PO TID 03/27/18 03/27/18 Allergies Allergy/AdvReac Type Severity Reaction Status Date / Time Latex, Natural Rubber Allergy Itching Verified 03/27/18 21:29 sulfamethoxazole Allergy Rash/Hives Verified 03/27/18 21:29 [From Bactrim] trimethoprim [From Bactrim] Allergy Rash/Hives Verified 03/27/18 21:29 Review of Systems ROS Statement: Those systems with pertinent positive or pertinent negative responses have been documented in the HPI. ROS Other: All systems not noted in ROS Statement are negative. Constitutional: Denies: fever Eyes: Denies: eye pain ENT: Denies: ear pain Respiratory: Denies: dyspnea Cardiovascular: Denies: chest pain Endocrine: Denies: fatigue Gastrointestinal: Reports: nausea Genitourinary: Denies: dysuria Musculoskeletal: Denies: back pain Skin: Denies: rash Neurological: Reports: weakness, confusion. Denies: headache Past Medical History Past Medical History: Atrial Fibrillation, Asthma, Diabetes Mellitus, Hypertension, Osteoarthritis (OA) Additional Past Medical History / Comment(s): Hypertension, diabetes mellitus, hyperlipidemia, paroxysmal defibrillation maintained on long-term articulation with warfarin (no longer taking), bronchial asthma, previous cardiac catheterization from January 2014 showing a mild coronary artery disease involving the LAD, uterine cancer 1994, broken left arm in 2006, skin cancer/ resected , history of C. diff colitis, chronic renal failure, history of intracranial hemorrhage status post surgery with blood clot removal, chronic atrial fibrillation, CHF with diastolic dysfunction and ejection fraction of 55% , hypertension, History of Any Multi-Drug Resistant Organisms: MRSA Date of last positivie culture/infection: 06/09/11 MDRO Source:: Thumb Past Surgical History: Cholecystectomy, Hysterectomy Additional Past Surgical History / Comment(s): eye sx cornea transplant, "blood clot removed from brain", pacemaker 2016 Past Anesthesia/Blood Transfusion Reactions: No Reported Reaction Additional Past Anesthesia/Blood Transfusion Reaction / Comment(s): no previous blood transfusions Past Psychological History: Depression Smoking Status: Never smoker Past Alcohol Use History: None Reported Past Drug Use History: None Reported - Past Family History Mother Family Medical History: Cancer, COPD, Hypertension Father Family Medical History: Cancer, Hypertension General Exam Limitations: altered mental status, physical limitation General appearance: other (Patient is awake but drowsy. Patient has difficulty following commands. Unable to fully test for sensory exam.) Head exam: Present: atraumatic Eye exam: Present: normal appearance, PERRL, EOMI. Absent: nystagmus ENT exam: Present: normal oropharynx Neck exam: Present: normal inspection. Absent: tenderness Respiratory exam: Present: normal lung sounds bilaterally Cardiovascular Exam: Present: regular rate, normal rhythm GI/Abdominal exam: Present: soft. Absent: tenderness Extremities exam: Present: normal inspection Neurological exam: Present: altered, CN II-XII intact (Except unable to test for sensory, limited exam.), other Expanded Neurological exam: Present: other (Slurred speech) Patient oriented to: Present: person, place. Absent: time Cranial nerves: EOM's Intact: Normal Motor strength exam: RUE: 5, LUE: 0, RLE: 2/1, LLE: 0 Eye Response: (4) open spontaneously Motor Response: (6) obeys commands (With difficulty) Verbal Response: (4) confused conversation Psychiatric exam: Present: flat affect Skin exam: Present: normal color Course Vital Signs 03/27/18 03/27/18 03/27/18 21:09 21:20 21:25 Temperature 98.7 F 98.8 F Pulse Rate 60 60 68 Respiratory 18 18 16 Rate Blood Pressure 181/69 170/80 133/87 O2 Sat by Pulse 99 99 99 Oximetry 03/27/18 03/27/18 03/27/18 21:30 21:35 21:50 Temperature 98.7 F 98.7 F Pulse Rate 65 60 60 Respiratory 14 14 14 Rate Blood Pressure 175/71 128/59 151/53 O2 Sat by Pulse 98 98 99 Oximetry - Reevaluation(s) Reevaluation #1: 03/27/18 21:48 Patient reevaluated and unchanged. Case discussed with neural interventional list Dr. patrick, who recommends no TPA. He does recommend loading with Keppra for seizures. He does recommend transfer to [facility]. Patient has previously been seen at [facility] with previous removal of brain tumor approximately urinary half ago. Family does confirm last known well was 3:30 PM. 03/27/18 22:10 Case was discussed with Dr. Guy at [facility], who will accept transfer. EKG Findings - EKG Comments: EKG Findings:: Paced rhythm at 60. MS 148. QRS 82. QT 450. QTC 450. Left axis. LVH. Nonspecific T waves. Medical Decision Making - Lab Data Result diagrams: 03/27/18 21:15 03/27/18 21:15 Lab Results 03/27/18 03/27/18 03/27/18 Range/Units 21:12 21:15 21:15 WBC 13.3 H (3.8-10.6) k/uL RBC 5.31 (3.80-5.40) m/uL Hgb 15.1 (11.4-16.0) gm/dL Hct 47.0 H (34.0-46.0) % MCV 88.6 (80.0-100.0) fL MCH 28.4 (25.0-35.0) pg MCHC 32.1 (31.0-37.0) g/dL RDW 14.0 (11.5-15.5) % Plt Count 232 (150-450) k/uL Neutrophils % 54 % Lymphocytes % 35 % Monocytes % 6 % Eosinophils % 3 % Basophils % 1 % Neutrophils # 7.2 (1.3-7.7) k/uL Lymphocytes # 4.6 (1.0-4.8) k/uL Monocytes # 0.8 (0-1.0) k/uL Eosinophils # 0.4 (0-0.7) k/uL Basophils # 0.1 (0-0.2) k/uL PT (9.0-12.0) sec INR (<1.2) APTT (22.0-30.0) sec Sodium 143 (137-145) mmol/L Potassium 4.5 (3.5-5.1) mmol/L Chloride 105 (98-107) mmol/L Carbon Dioxide 18 L (22-30) mmol/L Anion Gap 20 mmol/L BUN 27 H (7-17) mg/dL Creatinine 1.58 H (0.52-1.04) mg/dL Est GFR (CKD-EPI)AfAm 37 (>60 ml/min/1.73 sqM) Est GFR (CKD-EPI)NonAf 32 (>60 ml/min/1.73 sqM) Glucose 211 H (74-99) mg/dL POC Glucose (mg/dL) 191 H (75-99) mg/dL POC Glu Sports Development Officer ID Thomas, Tammi Calcium 9.7 (8.4-10.2) mg/dL Total Bilirubin 0.6 (0.2-1.3) mg/dL AST 19 (14-36) U/L ALT 10 (9-52) U/L Alkaline Phosphatase 108 (38-126) U/L Total Creatine Kinase (30-135) U/L CK-MB (CK-2) (0.0-2.4) ng/mL CK-MB (CK-2) Rel Index Troponin I (0.000-0.034) ng/mL Total Protein 7.4 (6.3-8.2) g/dL Albumin 4.7 (3.5-5.0) g/dL 03/27/18 03/27/18 Range/Units 21:15 21:15 WBC (3.8-10.6) k/uL RBC (3.80-5.40) m/uL Hgb (11.4-16.0) gm/dL Hct (34.0-46.0) % MCV (80.0-100.0) fL MCH (25.0-35.0) pg MCHC (31.0-37.0) g/dL RDW (11.5-15.5) % Plt Count (150-450) k/uL Neutrophils % % Lymphocytes % % Monocytes % % Eosinophils % % Basophils % % Neutrophils # (1.3-7.7) k/uL Lymphocytes # (1.0-4.8) k/uL Monocytes # (0-1.0) k/uL Eosinophils # (0-0.7) k/uL Basophils # (0-0.2) k/uL PT 9.7 (9.0-12.0) sec INR 0.9 (<1.2) APTT 20.0 L (22.0-30.0) sec Sodium (137-145) mmol/L Potassium (3.5-5.1) mmol/L Chloride (98-107) mmol/L Carbon Dioxide (22-30) mmol/L Anion Gap mmol/L BUN (7-17) mg/dL Creatinine (0.52-1.04) mg/dL Est GFR (CKD-EPI)AfAm (>60 ml/min/1.73 sqM) Est GFR (CKD-EPI)NonAf (>60 ml/min/1.73 sqM) Glucose (74-99) mg/dL POC Glucose (mg/dL) (75-99) mg/dL POC Glu Sports Development Officer ID Calcium (8.4-10.2) mg/dL Total Bilirubin (0.2-1.3) mg/dL AST (14-36) U/L ALT (9-52) U/L Alkaline Phosphatase (38-126) U/L Total Creatine Kinase 66 (30-135) U/L CK-MB (CK-2) 0.7 (0.0-2.4) ng/mL CK-MB (CK-2) Rel Index 1.1 Troponin I 0.013 (0.000-0.034) ng/mL Total Protein (6.3-8.2) g/dL Albumin (3.5-5.0) g/dL - Radiology Data Radiology results: image reviewed (Computed tomography scan of the brain as discussed with Dr. Patrick shows no acute process, encephalomalacia) Critical Care Time Critical Care Time: Yes Total Critical Care Time: 32 Disposition Clinical Impression: CVA (cerebral vascular accident), New onset seizure Disposition: OTHER INSTITUTION NOT DEFINED Is patient prescribed a controlled substance at d/c from ED?: No Referrals: Lisa Willingham MD [Primary Care Provider] - 1-2 days Time of Disposition: 22:11 - Out of Hospital Transfer - Req. Specs Out of Hospital Transfer - Requested Specifics: Other Emergency Center
[2018-03-27 21:26] LABS: Basophils # (A) 0.1 k/uL (0-0.2); Basophils % (A) 1 %; Eosinophils # (A) 0.4 k/uL (0-0.7); Eosinophils % (A) 3 %; HGB 15.1 gm/dL (11.4-16.0); Lymphocytes # (A) 4.6 k/uL (1.0-4.8); Lymphocytes % (A) 35 %; MCH 28.4 pg (25.0-35.0); MCHC 32.1 g/dL (31.0-37.0); MCV 88.6 fL (80.0-100.0); Mean Platelet Volume 7.1; Monocytes # (A) 0.8 k/uL (0-1.0); Monocytes % (A) 6 %; Neutrophils # (A) 7.2 k/uL (1.3-7.7); Neutrophils % (A) 54 %; Platelet Count 232 k/uL (150-450); RBC 5.31 m/uL (3.80-5.40); WBC 13.3 k/uL (3.8-10.6)
[2018-03-27 21:35] LABS: Albumin 4.7 g/dL (3.5-5.0); Calcium 9.7 mg/dL (8.4-10.2); Potassium 4.5 mmol/L (3.5-5.1); Total Bilirubin 0.6 mg/dL (0.2-1.3); Total Protein 7.4 g/dL (6.3-8.2)
[2018-03-27 21:43] LABS: INR 0.9 (<1.2); Prothrombin Time 9.7 sec (9.0-12.0)
[2018-03-27] MEDS ORDERED: levETIRAcetam IV 2,000 MG in SALINE 1 100ML.BAG IVPB STA (21:45)
[2018-03-27 21:47] LABS: Glucose,Whole Blood 191 mg/dL (75-99)
[2018-03-27 21:50] LABS: Creatine Kinase MB 0.7 ng/mL (0.0-2.4); Troponin I 0.013 ng/mL (0.000-0.034)
[2018-03-27 21:51] VITALS: PULSE 60
--- NOTE | 2018-03-27 21:52 | CT ---
EXAMINATION TYPE: CT brain wo con for TPA DATE OF EXAM: 03/27/2018 COMPARISON: 10/05/2017 INDICATION: code stroke DLP: 965.6 mGycm, Automated exposure control for dose reduction was used. CONTRAST: None CT of the brain is performed utilizing 3 mm thick sections through the posterior fossa and 3 mm thick sections through the remaining calvarium. Study is performed within 24 hours of arrival to the hosp ital. No abnormal hyperdensity is present to suggest an acute intracranial hemorrhage. No mass lesion is evident. No acute infarcts are evident. There is some mild periventricular white matter hypodensity, likely on the basis of chronic white matter ischemic change. There is an old craniotomy in the right prior occ ipital region. Encephalomalacia of the brain to this region is evident. This is unchanged from October 2017. Ventricles and sulci are appropriate for the patient age. Paranasal sinuses and mastoid air cells within the [id number] are clear. IMPRESSIONS: 1. No acute intracranial process. 2. 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 This is stable from October 2017. 3. Mild periventricular white matter chronic appearing ischemic changes.
[2018-03-27] MEDS ORDERED: LORazepam 2 MG/ML INJ IV STA (22:04)
[2018-03-27] MEDS ORDERED: ONDANSETRON 4 MG/2 ML VIAL IVP STA (22:06)
--- NOTE | 2018-03-27 22:08 | CT ---
EXAMINATION TYPE: CT angio head neck DATE OF EXAM: 03/27/2018 HISTORY: Neuro deficits. COMPARISON: CT 03/27/2018 at 9:[address] DLP: 330.6 mGycm. Automated Exposure Control for Dose Reduction was Utilized. TECHNIQUE: CTA scan of the neck is performed with IV Contrast, patient injected with 65ml mL of Isov ue 370, axial images are obtained, coronal and sagittal reformatted images are reviewed. Three-D fuad nstructed images are created on an independent workstation and reviewed. FINDINGS: The right and left carotid arterial systems are widely patent throughout the neck, with no dissection or stenosis or aneurysm. The right and left vertebral arterial systems are widely patent throughout the neck, with no dissecti on or stenosis or aneurysm. Venous structures are unremarkable throughout the neck. No significant incidental neck findings. The intracranial anterior circulation and posterior circulation are widely patent, without significan t stenosis or aneurysm. The dural venous sinuses are unremarkable. No additional intracranial CT findings then described on the CT without contrast 03/27/2018 at 9:37 PM . IMPRESSION: No significant CTA abnormality is seen.
[2018-03-27] MEDS: levETIRAcetam IV 1,000 MG in SALINE 1 100ML.BAG IVPB SCH ×2 (22:16→22:35)
--- NOTE | 2018-03-27 22:42 | XR ---
EXAMINATION TYPE: XR chest 1V DATE OF EXAM: 03/27/2018 COMPARISON: 10/05/2017 HISTORY: Fall today. Pain TECHNIQUE: Single frontal view of the chest is obtained. FINDINGS: There is no heart failure nor confluent pneumonic infiltrate. Costophrenic angles are deb r. There is left axillary pacemaker with the lead tips in the right ventricle. There are chest leads. IMPRESSION: No active cardiopulmonary disease. Significant arthritic disease noted in the shoulder j oints. No change.
[2018-03-27 22:50] VITALS: BP 178/65; RESP 12; TEMP 98.2
== END 2018-03-27 22:50 | disposition short-term general hospital (02) ==
LOC: EC 21:08
DX: I63.9 Cerebral infarction, unspecified (principal); R29.722 NIHSS score 22; R56.9 Unspecified convulsions; I48.2 Chronic atrial fibrillation; I13.0 Hypertensive heart and chronic kidney disease with heart failure and stage 1 through stage 4 chronic kidney disease, or unspecified chronic kidney disease; E11.22 Type 2 diabetes mellitus with diabetic chronic kidney disease; N18.9 Chronic kidney disease, unspecified; I50.32 Chronic diastolic (congestive) heart failure; J45.909 Unspecified asthma, uncomplicated; F32.9 Major depressive disorder, single episode, unspecified; I25.10 Atherosclerotic heart disease of native coronary artery without angina pectoris; Z85.42 Personal history of malignant neoplasm of other parts of uterus; Z85.828 Personal history of other malignant neoplasm of skin; Z79.01 Long term (current) use of anticoagulants; Z79.4 Long term (current) use of insulin; Z79.899 Other long term (current) drug therapy; Z91.040 Latex allergy status; Z91.048 Other nonmedicinal substance allergy status; Z88.2 Allergy status to sulfonamides; Z95.0 Presence of cardiac pacemaker; Z95.5 Presence of coronary angioplasty implant and graft
CPT/HCPCS: 99291; 36415; 93005; 80053; 82550; 82553; 84484; 85025; 85610; 85730; 71045; 70496; 70450; 70498; 96365; 96375 ×2; 96376; J2060; J2405; J1953; Q9967

== ENCOUNTER 2018-06-04 21:28 | Inpatient (IN) | payer MEDICARE, OTHER ==
[2018-06-04] MEDS ORDERED: NITROGLYCERIN OINT 1 INCH/GM PACKET TOPICAL STA (21:34)
[2018-06-04 21:52] LABS: Basophils # (A) 0.1 k/uL (0-0.2); Basophils % (A) 1 %; Eosinophils # (A) 0.3 k/uL (0-0.7); Eosinophils % (A) 4 %; HCT 40.6 % (34.0-46.0); HGB 13.3 gm/dL (11.4-16.0); Lymphocytes # (A) 1.6 k/uL (1.0-4.8); Lymphocytes % (A) 24 %; MCH 28.3 pg (25.0-35.0); MCHC 32.9 g/dL (31.0-37.0); MCV 86.3 fL (80.0-100.0); Mean Platelet Volume 7.3; Monocytes # (A) 0.5 k/uL (0-1.0); Monocytes % (A) 7 %; Neutrophils # (A) 4.3 k/uL (1.3-7.7); Neutrophils % (A) 64 %; Platelet Count 194 k/uL (150-450); RBC 4.71 m/uL (3.80-5.40); WBC 6.8 k/uL (3.8-10.6)
[2018-06-04 22:02] LABS: INR 0.9 (<1.2); Partial Thromboplastin Time 22.8 sec (22.0-30.0); Prothrombin Time 10.1 sec (9.0-12.0)
[2018-06-04 22:11] LABS: Albumin 3.8 g/dL (3.5-5.0); Calcium 9.5 mg/dL (8.4-10.2); Magnesium 1.8 mg/dL (1.6-2.3); Potassium 4.3 mmol/L (3.5-5.1); Total Bilirubin 0.3 mg/dL (0.2-1.3)
--- NOTE | 2018-06-04 22:45 | ED ---
Chest Pain HPI - General Chief Complaint: Chest Pain Stated Complaint: Chest Pain Time Seen by Provider: 06/04/18 21:34 Source: patient, EMS Mode of arrival: EMS Limitations: no limitations, physical limitation - History of Present Illness Initial Comments: Michael is a 72-year-old female with extensive past medical history most significant for atrial fibrillation and diastolic congestive heart failure. Patient presents the emergency department today via EMS for evaluation of sudden onset of pressure-like chest pain. Patient reports that she's had this pain intermittently over the past couple months, usually it occurs with exertion like when she is getting up and leaving the restroom walking around the house. She reports that tonight she was in bed when she began having chest pain felt somewhat short of breath and uncomfortable. She contacted EMS. Upon their arrival she reported a pressure-like retrosternal chest pain 8 out of 10 in in tensity. EKG showed no acute changes she was given aspirin and nitro and reports complete resolution of her pain after the nitro. Patient states that she has seen her heat plant specialist recently and is scheduled for outpatient echo and stress test this month. Patient denies any previous coronary artery disease, she cannot recall she has had cardiac catheterization in the past. - Related Data Home Medications Medication Instructions Recorded Confirmed Sertraline [Zoloft] 150 mg PO DAILY 01/04/14 06/04/18 Dicyclomine [Bentyl] 10 mg PO AC-TID 03/21/17 06/04/18 Albuterol Inhaler [Ventolin Hfa 1 - 2 puff INHALATION RT-Q6H 03/27/18 06/04/18 Inhaler] Calcium Carbonate 500 mg PO DAILY 03/27/18 06/04/18 Ferrous Sulfate [Iron (65 MG 325 mg PO DAILY 03/27/18 06/04/18 Elemental)] Furosemide [Lasix] 40 mg PO DAILY 03/27/18 06/04/18 Labetalol [Trandate] 100 mg PO Q12H 03/27/18 06/04/18 Potassium Chloride [Klor-Con 8] 8 meq PO DAILY 03/27/18 06/04/18 hydrALAZINE HCL 50 mg PO TID 03/27/18 06/04/18 Acetaminophen Tab [Tylenol] 500 mg PO Q4-6H PRN 06/04/18 06/04/18 Ciprofloxacin HCl [Cipro] 500 mg PO BID 06/04/18 06/04/18 Gabapentin [Neurontin] 300 mg PO BID 06/04/18 06/04/18 Insulin Glargine [Lantus] 30 unit SQ HS 06/04/18 06/04/18 [place] (Unknown) 1 drop BOTH EYES MOFR 06/04/18 06/04/18 Omeprazole [PriLOSEC] 20 mg PO BID 06/04/18 06/04/18 Ranitidine HCl [Zantac] 150 mg PO DAILY 06/04/18 06/04/18 amLODIPine [Norvasc] 10 mg PO DAILY 06/04/18 06/04/18 levETIRAcetam [Keppra] 500 mg PO Q12HR 06/04/18 06/04/18 prednisoLONE ACETATE [Pred Forte 1 drop RIGHT EYE DIRECTED 06/04/18 06/04/18 1%] Allergies Allergy/AdvReac Type Severity Reaction Status Date / Time Latex, Natural Rubber Allergy Itching Verified 06/04/18 21:50 sulfamethoxazole Allergy Rash/Hives Verified 06/04/18 21:50 [From Bactrim] trimethoprim [From Bactrim] Allergy Rash/Hives Verified 06/04/18 21:50 Review of Systems ROS Statement: Those systems with pertinent positive or pertinent negative responses have been documented in the HPI. ROS Other: All systems not noted in ROS Statement are negative. EKG Findings - EKG Comments: EKG Findings:: EKG was obtained at 9:34 PM, rate is 60 rhythm is atrial paced, there are T wave inversions in the lateral leads V3 through V6 with no ST elevations. Past Medical History Past Medical History: Atrial Fibrillation, Asthma, Diabetes Mellitus, Hypertension, Osteoarthritis (OA) Additional Past Medical History / Comment(s): Hypertension, diabetes mellitus, hyperlipidemia, paroxysmal defibrillation maintained on long-term articulation with warfarin (no longer taking), bronchial asthma, previous cardiac catheterization from January 2014 showing a mild coronary artery disease involving the LAD, uterine cancer 1994, broken left arm in 2006, skin cancer/resected , history of C. diff colitis, chronic renal failure, history of intracranial hemorrhage status post surgery with blood clot removal, chronic atrial fibrillation, CHF with diastolic dysfunction and ejection fraction of 55%, hypertension, History of Any Multi-Drug Resistant Organisms: MRSA Date of last positivie culture/infection: 4/7/12 MDRO Source:: Thumb Past Surgical History: Cholecystectomy, Hysterectomy Additional Past Surgical History / Comment(s): eye sx cornea transplant, "blood clot removed from brain", pacemaker 2016 Past Anesthesia/Blood Transfusion Reactions: No Reported Reaction Additional Past Anesthesia/Blood Transfusion Reaction / Comment(s): no previous blood transfusions Past Psychological History: Depression Smoking Status: Never smoker Past Alcohol Use History: None Reported Past Drug Use History: None Reported - Past Family History Mother Family Medical History: Cancer, COPD, Hypertension Father Family Medical History: Cancer, Hypertension General Exam - General Exam Comments Initial Comments: Physical Exam GENERAL: Patient is well-developed and well-nourished. Patient is nontoxic and well-hydrated and is in no distress. HENT: Normocephalic, Atraumatic. EYES: PERRL, EOMI PULMONARY: Unlabored respirations. CARDIOVASCULAR: RRR ABDOMEN: Soft and nontender with normal bowel sounds. SKIN: Skin is clear with no lesions or rashes and otherwise unremarkable. : Deferred NEUROLOGIC: Patient is alert and oriented x3 Moving all extremities spontaneously MUSCULOSKELETAL: Normal extremities with adequate strength and full range of motion. No lower extremity swelling or edema. No calf tenderness. PSYCHIATRIC: Normal psychiatric evaluation. Limitations: no limitations Limitations: no limitations, physical limitation Course Vital Signs 06/04/18 06/04/18 21:31 23:28 Temperature 100.2 F H 99.0 F Pulse Rate 60 60 Respiratory 19 19 Rate Blood Pressure 179/65 161/83 O2 Sat by Pulse 98 98 Oximetry Chest Pain [facility] Patient was seen and evaluated, history is obtained from the patient and review of medical record Patient with high risk chest pain which was resolved with nitro At this time for cardiac workup will be initiated EKG with no ST elevations or slight pressure lateral leads patient is currently chest pain-free Labs and imaging were ordered - labs were unremarkable, persistent chronic kidney disease, no elevation of troponin and BNP is elevated however there is no previous for comparison The patient's high risk status I do feel she warrants further evaluation in the hospital. Patient care was discussed with Dr Loza who accepts the admission Patient's heat plant specialist Dr. Hawk was consulted, Echo ordered Disposition Clinical Impression: Chest pain, Congestive heart failure Disposition: ADMITTED IP TO THIS HOSP Condition: Stable Is patient prescribed a controlled substance at d/c from ED?: No
--- NOTE | 2018-06-04 23:16 | XR ---
EXAM: XR Chest, 2 Views CLINICAL HISTORY: ITS.REASON XR Reason: Chest Pain TECHNIQUE: Frontal and lateral views of the chest. COMPARISON: 03/27/18 FINDINGS: Lungs: No consolidation or vascular congestion. Pleural space: Unremarkable. No pneumothorax. Heart: Cardiomegaly with dual-lead pacer device. Mediastinum: Unremarkable. Bones/joints: Chronic bilateral humeral deformities. IMPRESSION: Cardiomegaly. No overt edema.
[2018-06-04] MEDS ORDERED: NALOXONE 0.4 MG/ML 1 ML VIAL IV PRN (23:26)
[2018-06-04] MEDS ORDERED: ACETAMINOPHEN TAB 325 MG TAB PO PRN (23:26)
--- NOTE | 2018-06-04 23:53 | P.HPIM ---
History of Present Illness H&P Date: 06/04/18 Chief Complaint: Chest pain Patient is a 72-year-old female with past medical history of mild coronary artery disease CAD In 2014, hypertension, diabetes, prior brain mass with hemorrhage, chronic kidney disease stage III, atrial fibrillation not on chronic anticoagulation secondary to intracranial hemorrhage who presented to the ER via EMS for chest pain. In the ER she underwent an extensive evaluation. On arrival she was found to have an elevated temperature of 100.2. Her other vital signs within normal limits. Laboratory analysis was consistent with her chronic kidney disease. Troponin was negative. Chest x-ray showed no acute process. EKG did not show any evidence of acute ischemia. Patient's chest pain had resolved en route after receiving nitro. There was concern for acute coronary syndrome and she was subsequently placed in observation. Patient seen and examined at bedside in the emergency department with [id number] present. She states she was lying down at night to go to sleep and she developed sudden onset chest pressure. She states was all throughout her chest and she did have some pain down into her left arm. She denied any associated shortness of breath, diaphoresis, nausea, lightheadedness or dizziness. She did feel as though her heart was pounding. She states her feet also felt numb at that time. She is unsure how long the chest pain lasted for. She states it resolved with nitro was given via EMS. She denies anything similar in the past. She has difficulty describing chest pain. She states that she saw Dr. Hawk approximately one week ago and the interrogated her pacemaker. Her [id number] said that pacemaker interrogation was slightly abnormal and therefore she was scheduled to have an echocardiogram and a stress test on June 18. She has chronic headaches which are unchanged. She has on-and-off diarrhea currently this is resolved. She denies any recent cough, cold, fevers, or flu. She was placed on Cipro by Dr. Gonzalez after being found to have a UTI approximately 2 weeks ago. She initially was on another antibiotic but did not respond and has subsequently been switched to Cipro. She denies any dysuria or difficulty with urination at this time. Review of Systems Pertinent positives and negatives as discussed in HPI, a complete review of systems was performed and all other systems are negative. 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 Brain mass with intercranial hemorrhage/hematoma treated at [facility]. Bronchial asthma, previous cardiac catheterization from January 2014 showing a mild coronary artery disease involving the LAD, uterine cancer 1994, broken left arm in 2006, skin cancer/resected , history of C. diff colitis, chronic renal failur e, chronic atrial fibrillation, hypertension, CHF History of Any Multi-Drug Resistant Organisms: MRSA Date of last positivie culture/infection: 06/09/11 MDRO Source:: Thumb Past Surgical History: Cholecystectomy, Hysterectomy Additional Past Surgical History / Comment(s): eye sx cornea transplant, Evacuation on intracranial hematoma and ressection of hemorrhagic mass, pacema ker 2016 Past Anesthesia/Blood Transfusion Reactions: No Reported Reaction Additional Past Anesthesia/Blood Transfusion Reaction / Comment(s): no previous blood transfusions Past Psychological History: Depression Smoking Status: Never smoker Past Alcohol Use History: None Reported Past Drug Use History: None Reported Additional History: Her son and daughter in law live with her. Uses a wheelchair mostly and a walker for short distances. - Past Family History Mother Family Medical History: Cancer, COPD, Hypertension Father Family Medical History: Cancer, Hypertension Medications and Allergies Home Medications Medication Instructions Recorded Confirmed Type Sertraline [Zoloft] 150 mg PO DAILY 01/04/14 06/04/18 History Dicyclomine [Bentyl] 10 mg PO AC-TID 03/21/17 06/04/18 History Albuterol Inhaler [Ventolin Hfa 1 - 2 puff INHALATION RT-Q6H 03/27/18 06/04/18 History Inhaler] Calcium Carbonate 500 mg PO DAILY 03/27/18 06/04/18 History Ferrous Sulfate [Iron (65 MG 325 mg PO DAILY 03/27/18 06/04/18 History Elemental)] Furosemide [Lasix] 40 mg PO DAILY 03/27/18 06/04/18 History Labetalol [Trandate] 100 mg PO Q12H 03/27/18 06/04/18 History Potassium Chloride [Klor-Con 8] 8 meq PO DAILY 03/27/18 06/04/18 History hydrALAZINE HCL 50 mg PO TID 03/27/18 06/04/18 History Acetaminophen Tab [Tylenol] 500 mg PO Q4-6H PRN 06/04/18 06/04/18 History Ciprofloxacin HCl [Cipro] 500 mg PO BID 06/04/18 06/04/18 History Gabapentin [Neurontin] 300 mg PO BID 06/04/18 06/04/18 History Insulin Glargine [Lantus] 30 unit SQ HS 06/04/18 06/04/18 History Micro [place] (Unknown) 1 drop BOTH EYES MOFR 06/04/18 06/04/18 History Omeprazole [PriLOSEC] 20 mg PO BID 06/04/18 06/04/18 History Ranitidine HCl [Zantac] 150 mg PO DAILY 06/04/18 06/04/18 History amLODIPine [Norvasc] 10 mg PO DAILY 06/04/18 06/04/18 History levETIRAcetam [Keppra] 500 mg PO Q12HR 06/04/18 06/04/18 History prednisoLONE ACETATE [Pred Forte 1 drop RIGHT EYE DIRECTED 06/04/18 06/04/18 History 1%] Allergies Allergy/AdvReac Type Severity Reaction Status Date / Time Latex, Natural Rubber Allergy Itching Verified 06/04/18 21:50 sulfamethoxazole Allergy Rash/Hives Verified 06/04/18 21:50 [From Bactrim] trimethoprim [From Bactrim] Allergy Rash/Hives Verified 06/04/18 21:50 Physical Exam Osteopathic Statement: *. No significant issues noted on an osteopathic structural exam other than those noted in the History and Physical/Consult. Vitals: Vital Signs Temp Pulse Resp BP Pulse Ox 06/04/18 21:31 100.2 F H 60 19 179/65 98 Intake and Output 06/04/18 06/04/18 06/05/18 14:59 22:59 06:59 Other: Weight 87.543 kg General: non toxic, no distress, appears at stated age, obese Derm: no unusual rashes/lesions no unusual ecchymoses, warm, dry Head: atraumatic, normocephalic, symmetric Eyes: EOMI, no lid lag, anicteric sclera, pupils equal round reactive to light ENT: Nose and ears atraumatic, no thrush, no pharyngeal erythema Neck: No thyromegaly, no cervical lymphadenopathy, trachea midline, supple Mouth: no lip lesion, mucus membranes moist Cardiovascular: S1S2 reg, no murmur, positive posterior tibial pulse bilateral, trace edema left ankle, capillary refill less than 2 seconds Lungs: decreased bs b/l bilateral, no rhonchi, no rales , no accessory muscle use Abdominal: soft, nontender to palpation, no guarding, no appreciable organomegaly, normal bowel sounds Ext: no gross muscle atrophy, muscle strength 5 out of 5 in all upper extremities grossly, 4/5 in lower extremities , no contractures, Neuro: CN II-XI grossly intact, light touch intact all 4 extremities, finger to nose poor on right and within normal limits on left, Psych: Alert, oriented, appropriate affect Results CBC & Chem 7: 06/04/18 21:39 06/04/18 21:39 Labs: Abnormal Lab Results - Last 24 Hours (Table) 06/04/18 Range/Units 21:39 BUN 23 H (7-17) mg/dL Creatinine 1.55 H (0.52-1.04) mg/dL Glucose 189 H (74-99) mg/dL AST 11 L (14-36) U/L Total Protein 6.0 L (6.3-8.2) g/dL Comments: EKG is reviewed by myself reveals normal sinus rhythm and paced with flattening of the T waves. Chest x-ray: report reviewed, image reviewed (cardiomegally, no acute process) Thrombosis Risk Factor Assmnt - DVT/VTE Prophylaxis DVT/VTE Prophylaxis: Low risk, early ambulation encouraged - Choose All That Apply Each Factor Represents 1 point: Obesity (BMI >25) Each Risk Factor Represents 2 Points: Age 61-74 years Thrombosis Risk Factor Assessment Total Risk Factor Score: 3 Thrombosis Risk Factor Assessment Level: Moderate Risk Assessment and Plan Assessment: Chest pain with concerns for acute coronary syndrome - Continue with nitro -Aspirin -Statin -Serial troponins, telemetry -EKG in a.m. -Nothing by mouth from midnight -Cardiology consultation -Lipid profile in a.m. -Suspect patient will need stress test in a.m. -wont start anticoagulation at this time with patient's history of intracranial hemorrhage requiring evacuation and substantial surgery. If troponin does elevate and consider heparin drip without bolus. Currently risk> benefit. 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 A fib - labetalol, tele, no anticoagulation with hx of hemorrhagic mass HX of hemorrhagic intracranial mass - supportive care - on prophylactic keppra maintain - neurosurgeon and neurologist do not want patient on exterminator helper termite anticoagulation. Obesity - BMI 31.2 - outpatient structured weight loss Debility - uses a wheelchair at home - Fall precautions - has home health already. Chronic: arthritis CKD 3 Uterine cancer The patient is placed in observation with an anticipated less than 2 per night stay for evaluation of chest pain. Surrogate decision-maker: Vernon- Barbara CODE STATUS: DNR- everything done until heart stops.. see orders DVT prophylaxis: SCDs Discussed with: Patient, ED physician, [id number] Anticipated discharge date: [address]: home A total of [65] minutes was spent on the care of this complex patient more than 50% of the time was spent in counseling and care coordination.
[2018-06-05] MEDS ORDERED: MELATONIN 3 MG TABLET PO PRN
[2018-06-05] MEDS: prednisoLONE ACETATE 1% OPHTH DROPS 5 ML BTL RIGHT EYE SCH ×2 (01:21→23:12)
[2018-06-05] MEDS: LABETALOL 100 MG TAB PO SCH ×3 (01:22→23:12)
[2018-06-05] MEDS: NITROGLYCERIN OINT 1 INCH/GM PACKET TOPICAL SCH ×5 (01:22→21:25)
[2018-06-05] MEDS ORDERED: ALBUTEROL NEBULIZED 2.5 MG/3 ML INHALATION SCH (02:00)
[2018-06-05] MEDS ORDERED: ALBUTEROL NEBULIZED 2.5 MG/3 ML INHALATION PRN (03:27)
[2018-06-05 04:13] LABS: Cholesterol 129 mg/dL (<200); HDL Cholesterol 34 mg/dL (40-60); LDL Cholesterol,Calculated 55 mg/dL (0-99); Triglycerides 200 mg/dL (<150)
[2018-06-05 06:55] LABS: Glucose,Whole Blood 97 mg/dL (75-99)
[2018-06-05] MEDS: ALBUTEROL NEBULIZED 2.5 MG/3 ML INHALATION SCH ×4 (07:38→19:10)
[2018-06-05] MEDS: INSULIN ASPART (NovoLOG) 100 UNIT/ML VIAL SQ SCH ×4 (08:56→21:23)
[2018-06-05] MEDS ORDERED: CIPROFLOXACIN HCL 500 MG TAB PO SCH (09:00)
[2018-06-05] MEDS: CALCIUM CARBONATE 500 MG CHEWABLE PO SCH (10:28)
[2018-06-05] MEDS: amLODIPine 10 MG TAB PO SCH (10:29)
[2018-06-05] MEDS: FAMOTIDINE 20 MG TAB PO SCH (10:29)
[2018-06-05] MEDS: FERROUS SULFATE 325 MG TAB PO SCH (10:29)
[2018-06-05] MEDS: POTASSIUM CHLORIDE ER 10 MEQ TAB.ER.PRT PO SCH (10:29)
[2018-06-05] MEDS: GABAPENTIN 300 MG CAP PO SCH ×2 (10:29→21:23)
[2018-06-05] MEDS: hydrALAZINE HCL 50 MG TAB PO SCH ×3 (10:29→21:24)
[2018-06-05] MEDS: FUROSEMIDE 40 MG TAB PO SCH (10:29)
[2018-06-05] MEDS: levETIRAcetam 500 MG TAB PO SCH ×2 (10:29→21:24)
[2018-06-05] MEDS: ASPIRIN 325 MG TAB PO SCH (10:29)
[2018-06-05] MEDS: PANTOPRAZOLE 40 MG TABLET PO SCH ×2 (10:29→21:24)
[2018-06-05] MEDS: SERTRALINE 50 MG TAB PO SCH (10:30)
[2018-06-05] MEDS: DICYCLOMINE 10 MG CAP PO SCH ×3 (10:30→16:18)
[2018-06-05 10:50] LABS: Appearance,Urine Clear (Clear); Bilirubin,Urine Negative (Negative); Blood,Urine Negative (Negative); Color,Urine Yellow; Glucose,Urine (UA) Negative (Negative); Ketones,Urine Negative (Negative); Leukocyte Esterase,Urine Small (Negative); Mucus,Urine Rare /hpf; Nitrite,Urine Negative (Negative); Protein,Urine 1+ (Negative); RBC,Urine 2 /hpf (0-5); Specific Gravity,Urine 1.022 (1.001-1.035); Squamous Epithelial Cell,Urine <1 /hpf (0-4); Urobilinogen,Urine <2.0 mg/dL (<2.0)
--- NOTE | 2018-06-05 10:53 | ECHOF ---
Referral Reason:heart failure, chest pain MEASUREMENTS -------- HEIGHT: 165.1 cm WEIGHT: 88.0 kg BP: IVSd: 1.3 cm (0.6 - 1.1) LVIDd: 4.6 cm (3.9 - 5.3) LVPWd: 1.6 cm (0.6 - 1.1) IVSs: 1.5 cm LVIDs: 3.4 cm LVPWs: 1.6 cm LA Diam: 4.1 cm (2.7 - 3.8) LAESV Index (A-L): 29.67 ml/m Ao Diam: 3.2 cm (2.0 - 3.7) AV Cusp: 2.0 cm (1.5 - 2.6) LA Diam: 3.9 cm (2.7 - 3.8) MV EXCURSION: 22.560 mm (> 18.000) MV EF SLOPE: 60 mm/s (70 - 150) EPSS: 0.3 cm MV E Declan: 0.58 m/s MV DecT: 396 ms MV A Declan: 1.09 m/s MV E/A Ratio: 0.53 RAP: 5.00 mmHg RVSP: 15.17 mmHg FINDINGS -------- Paced rhythm. Undetermined rhythm. This was a technically adequate study. The left ventricular size is normal. There is moderate concentric left ventricular hypertrophy. O verall left ventricular systolic function is normal with, an EF between 55 - 60 %. The right ventricle is normal in size. The left atrial size is normal. Normal LA size by volume 22+/-6 ml/m2. The right atrial size is normal. There is mild aortic valve sclerosis. Trace to mild aortic regurgitation. Mild mitral annular calcification present. Mild mitral regurgitation is present. Mild tricuspid regurgitation present. There is no evidence of pulmonary hypertension. The right v entricular systolic pressure, as measured by Doppler, is 15.17mmHg. There is no pulmonic regurgitation present. The aortic root size is normal. There is no pericardial effusion. CONCLUSIONS -------- 1. Paced rhythm. 2. The left ventricular size is normal. 3. There is moderate concentric left ventricular hypertrophy. 4. Overall left ventricular systolic function is normal with, an EF between 55 - 60 %. 5. The right ventricle is normal in size. 6. The left atrial size is normal. 7. Normal LA size by volume 22+/-6 ml/m2. 8. The right atrial size is normal. 9. There is mild aortic valve sclerosis. 10. Trace to mild aortic regurgitation. 11. Mild mitral annular calcification present. 12. Mild mitral regurgitation is present. 13. Mild tricuspid regurgitation present. 14. There is no evidence of pulmonary hypertension. 15. The right ventricular systolic pressure, as measured by Doppler, is 15.17mmHg. 16. There is no pulmonic regurgitation present. 17. The aortic root size is normal. 18. There is no pericardial effusion. [employer]: Lucy Adams RDCS
[2018-06-05 11:49] LABS: Glucose,Whole Blood 178 mg/dL (75-99)
[2018-06-05] MEDS ORDERED: SODIUM CHLORIDE 0.9% 1,000 ML in EMPTY BAG 1 BAG IV ONE (12:32)
[2018-06-05] MEDS ORDERED: ALPRAZolam 0.5 MG TAB PO PRN (12:32)
[2018-06-05] MEDS ORDERED: NITROGLYCERIN SL TABS 0.4 MG TAB SUBLINGUAL PRN (12:32)
[2018-06-05] MEDS ORDERED: ALPRAZolam 0.25 MG TAB PO PRN (12:32)
--- NOTE | 2018-06-05 13:30 | P.PN ---
Subjective Progress Note Date: 06/05/18 Patient is doing fairly well today. She denies any chest pain or discomfort this morning. No acute events overnight. Objective - Vital Signs Vital signs: Vital Signs Temp 98.3 F 06/05/18 12:00 Pulse 60 06/05/18 12:00 Resp 18 06/05/18 12:00 BP 119/77 06/05/18 12:00 Pulse Ox 95 06/05/18 12:00 Intake & Output 06/04/18 06/05/18 06/05/18 18:59 06:59 18:59 Weight 87.543 kg Other: Voiding Method Bedpan Bedpan # Voids 1 - Exam General: The patient is awake and alert, in no distress Eye: there is normal conjunctiva bilaterally. Neck: The neck is supple, there is no JVD. Cardiovascular: Normal S1-S2, no S3-S4, no murmurs. Respiratory: Lungs clear to auscultation bilaterally Gastrointestinal: Abdomen is soft, nontender Musculoskeletal: There is no pedal edema. Neurological:. Speech is normal. Skin: Skin is warm and dry - Labs CBC & Chem 7: 06/04/18 21:39 06/04/18 21:39 Labs: Abnormal Lab Results - Last 24 Hours (Table) 06/04/18 06/05/18 06/05/18 Range/Units 21:39 03:17 09:33 BUN 23 H (7-17) mg/dL Creatinine 1.55 H (0.52-1.04) mg/dL Glucose 189 H (74-99) mg/dL POC Glucose (mg/dL) (75-99) mg/dL AST 11 L (14-36) U/L Total Protein 6.0 L (6.3-8.2) g/dL Triglycerides 200 H (<150) mg/dL HDL Cholesterol 34 L (40-60) mg/dL Urine Protein 1+ H (Negative) Ur Leukocyte Esterase Small H (Negative) Urine WBC 13 H (0-5) /hpf Urine Mucus Rare H (None) /hpf 06/05/18 Range/Units 11:47 BUN (7-17) mg/dL Creatinine (0.52-1.04) mg/dL Glucose (74-99) mg/dL POC Glucose (mg/dL) 178 H (75-99) mg/dL AST (14-36) U/L Total Protein (6.3-8.2) g/dL Triglycerides (<150) mg/dL HDL Cholesterol (40-60) mg/dL Urine Protein (Negative) Ur Leukocyte Esterase (Negative) Urine WBC (0-5) /hpf Urine Mucus (None) /hpf Assessment and Plan Assessment: Chest pain: With typical and atypical features. 12-lead EKG with no acute ischemic changes. Serial troponin negative. Echocardiogram showed preserved EF with no significant wall motion or valvular abnormalities. Patient was seen and evaluated by cardiology. Plan for left heart cath tomorrow. 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 A fib - labetalol, tele, no anticoagulation with hx of hemorrhagic mass HX of hemorrhagic intracranial mass - neurosurgeon and neurologist do not want patient on controls operator molded goods anticoagulation. Obesity - BMI 31.2 - outpatient structured weight loss Debility - uses a wheelchair at home - Fall precautions - has home health already. Chronic: arthritis CKD 3 Uterine cancer
--- NOTE | 2018-06-05 13:34 | P.CRDCN ---
History of Present Illness History of present illness: This is a pleasant 72-year-old female past medical history significant for paroxysmal atrial fibrillation not on retirement anticoagulation secondary to recent CVA, brain surgery, diabetes mellitus, hypertension, sick sinus syndrome status post pacemaker implantation and asthma. She follows in the office with Dr. Hawk. Most recent cardiac catheterization obtained in 2013 revealed mild nonobstructive CAD. We've been asked to see her in consultation secondary to chest discomfort. She states she woke up last night a tight sensation in the midsternal region with radiation to the left shoulder and down the left arm. This was associated with nausea but no vomiting. She took sublingual nitroglycerin 2 per EMS and this resolved her chest discomfort. She denies associated shortness of breath, dizziness or palpitations. She has remained chest pain-free since admission. She is seen and examined resting comfortably in bed lying flat in no acute distress. Echocardiogram obtained reveals preserved left ventricular systolic function with ejection fraction 55-60%, mild aortic valve sclerosis, trace to mild aortic regurgitation, mild mitral regurgitation and mild tricuspid regurgitation. EKG reveals T-wave inversions in the anterior lateral leads. Chest x-ray is negative for acute cardiopulmonary process. Laboratory data reviewed, cardiac enzymes negative 3, LDL 55, HDL 34, WBC 6.8, hemoglobin 13.3, platelets 194, sodium 144, potassium 4.3, creatinine 1.55 with a GFR 33. Current cardiac medications include Lasix 40 mg daily, labetalol 100 mg twice a day, amlodipine 10 mg daily and hydralazine 50 mg 3 times a day. At the time of my exam: CONSTITUTIONAL: Denies fever. Denies chills. EYES: Denies blurred vision. Denies vision changes. Denies eye pain. EARS, NOSE, MOUTH & THROAT: Denies headache. Denies sore throat. Denies ear pain. CARDIOVASCULAR: Denies chest pain. Denies shortness of breath. Denies orthopnea. Denies PND. Denies palpitations. RESPIRATORY: Denies cough. GASTROINTESTINAL: Denies abdominal pain. Denies diarrhea. Denies constipation. Denies nausea. Denies vomiting. MUSCULOSKELETAL: Denies myalgias. INTEGUMENTARY: Denies pruitis. Denies rash. NEUROLOGIC: Denies numbness. Denies tingling. Denies weakness. PSYCHIATRIC: Denies anxiety. Denies depression. ENDOCRINE: Denies fatigue. Denies weight change. Denies polydipsia. Denies polyurina. GENITOURINARY: Denies burning, hematuria or urgency with micturation. HEMATOLOGIC: Denies history of anemia. Denies bleeding. Blood pressure 119/77 heart rate 68 afebrile maintaining oxygen saturation on room air GENERAL: This is a 72-year-old female in no apparent distress at the time of my examination. HEENT: Head is atraumatic, normocephalic. Pupils are equal, round. Sclerae ani cteric. Conjunctivae are clear. Mucous membranes of the mouth are moist. Neck is supple. There is no jugular venous distention. No carotid bruit is heard. LUNGS: Clear to auscultation no wheezes, rales or rhonchi. No chest wall tenderness is noted on palpation or with deep breathing. HEART: Regular rate and rhythm without murmurs, rubs or gallops. S1 and S2 heard. ABDOMEN: Soft, nontender. Bowel sounds are heard. No organomegaly noted. EXTREMITIES: No evidence of peripheral edema and no calf tenderness noted. VASCULAR: Radial and dorsalis pedis pulses palpated, no evidence of clubbing. NEUROLOGIC: Patient is awake, alert and oriented x3. ASSESSMENT Chest pain suggestive of unstable angina with EKG changes Hypertension Paroxysmal atrial fibrillation History of recent brain surgery secondary to a tumor and bleeding in the brain per the patient at [facility] in March 2018 History of sick sinus syndrome status post permanent pacemaker implantation Diabetes mellitus Asthma PLAN Recommend proceeding with cardiac catheterization to further assess for progression of coronary artery disease. Hydrate the patient today repeat kidney function in the morning. I have discussed the risks, benefits and alternative therapies for the above- mentioned procedure and for both sedation/analgesia as well as necessary blood product administration, if indicated, as they pertain to this patient. The patient has indicated understanding and acceptance of the risks and procedures discussed. Questions have been answered appropriately and she is agreeable to move forward with the above stated procedure. Further recommendations to follow based upon clinical course. Thank you kindly for this consultation. Nurse Practitioner note has been reviewed, I agree with a documented findings and plan of care. Patient was seen and examined. 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 Brain mass with intercranial hemorrhage/hematoma treated at [facility]. Bronchial asthma, previous cardiac catheterization from January 2014 showing a mild coronary artery disease involving the LAD, uterine cancer 1994, broken left arm in 2006, skin cancer/resected , history of C. diff colitis, chronic renal failure, chronic atrial fibrillation, CHF History of Any Multi-Drug Resistant Organisms: C-DIFF, MRSA Date of last positivie culture/infection: 06/09/11 MDRO Source:: Thumb Past Surgical History: Cholecystectomy, Hysterectomy Additional Past Surgical History / Comment(s): eye sx cornea transplant, Evacuation on intracranial hematoma and ressection of hemorrhagic mass, pacemaker 2016 Past Anesthesia/Blood Transfusion Reactions: No Reported Reaction Additional Past Anesthesia/Blood Transfusion Reaction / Comment(s): no previous blood transfusions Past Psychological History: Depression Smoking Status: Never smoker Past Alcohol Use History: None Reported Past Drug Use History: None Reported - Past Family History Mother Family Medical History: Cancer, COPD, Hypertension Father Family Medical History: Cancer, Hypertension Medications and Allergies Home Medications Medication Instructions Recorded Confirmed Type Sertraline [Zoloft] 150 mg PO DAILY 01/04/14 06/04/18 History Dicyclomine [Bentyl] 10 mg PO AC-TID 03/21/17 06/04/18 History Albuterol Inhaler [Ventolin Hfa 1 - 2 puff INHALATION RT-Q6H 03/27/18 06/04/18 History Inhaler] Calcium Carbonate 500 mg PO DAILY 03/27/18 06/04/18 History Ferrous Sulfate [Iron (65 MG 325 mg PO DAILY 03/27/18 06/04/18 History Elemental)] Furosemide [Lasix] 40 mg PO DAILY 03/27/18 06/04/18 History Labetalol [Trandate] 100 mg PO Q12H 03/27/18 06/04/18 History Potassium Chloride [Klor-Con 8] 8 meq PO DAILY 03/27/18 06/04/18 History hydrALAZINE HCL 50 mg PO TID 03/27/18 06/04/18 History Acetaminophen Tab [Tylenol] 500 mg PO Q4-6H PRN 06/04/18 06/04/18 History Ciprofloxacin HCl [Cipro] 500 mg PO BID 06/04/18 06/04/18 History Gabapentin [Neurontin] 300 mg PO BID 06/04/18 06/04/18 History Insulin Glargine [Lantus] 30 unit SQ HS 06/04/18 06/04/18 History Micro [place] (Unknown) 1 drop BOTH EYES MOFR 06/04/18 06/04/18 History Omeprazole [PriLOSEC] 20 mg PO BID 06/04/18 06/04/18 History Ranitidine HCl [Zantac] 150 mg PO DAILY 06/04/18 06/04/18 History amLODIPine [Norvasc] 10 mg PO DAILY 06/04/18 06/04/18 History levETIRAcetam [Keppra] 500 mg PO Q12HR 06/04/18 06/04/18 History prednisoLONE ACETATE [Pred Forte 1 drop RIGHT EYE DIRECTED 06/04/18 06/04/18 History 1%] Allergies Allergy/AdvReac Type Severity Reaction Status Date / Time Latex, Natural Rubber Allergy Itching Verified 06/05/18 00:33 sulfamethoxazole Allergy Rash/Hives Verified 06/05/18 00:33 [From Bactrim] trimethoprim [From Bactrim] Allergy Rash/Hives Verified 06/05/18 00:33 Physical Exam Vitals: Vital Signs Temp Pulse Pulse Pulse Resp BP BP 06/05/18 07:54 97.8 F 69 18 06/05/18 07:50 80 06/05/18 07:41 76 06/05/18 03:46 98.2 F 77 15 136/74 06/05/18 00:00 15 06/04/18 23:44 98.1 F 60 15 180/68 06/04/18 23:28 99.0 F 60 19 161/83 06/04/18 21:31 100.2 F H 60 19 179/65 BP Pulse Ox 06/05/18 07:54 178/74 98 06/05/18 07:50 06/05/18 07:41 06/05/18 03:46 97 06/05/18 00:00 06/04/18 23:44 97 06/04/18 23:28 98 06/04/18 21:31 98 Intake and Output 06/04/18 06/05/18 06/05/18 22:59 06:59 14:59 Other: Voiding Method Bedpan Weight 87.543 kg Results 06/04/18 21:39 06/04/18 21:39 Cardiac Enzymes 06/04/18 06/04/18 06/04/18 Range/Units 21:39 21:39 23:42 AST 11 L (14-36) U/L Troponin I <0.012 <0.012 (0.000-0.034) ng/mL 06/05/18 Range/Units 03:17 AST (14-36) U/L Troponin I 0.013 (0.000-0.034) ng/mL Coagulation 06/04/18 Range/Units 21:39 PT 10.1 (9.0-12.0) sec APTT 22.8 (22.0-30.0) sec Lipids 06/05/18 Range/Units 03:17 Triglycerides 200 H (<150) mg/dL Cholesterol 129 (<200) mg/dL HDL Cholesterol 34 L (40-60) mg/dL CBC 06/04/18 Range/Units 21:39 WBC 6.8 (3.8-10.6) k/uL RBC 4.71 (3.80-5.40) m/uL Hgb 13.3 (11.4-16.0) gm/dL Hct 40.6 (34.0-46.0) % Plt Count 194 (150-450) k/uL Comprehensive Metabolic Panel 06/04/18 Range/Units 21:39 Sodium 144 (137-145) mmol/L Potassium 4.3 (3.5-5.1) mmol/L Chloride 107 (98-107) mmol/L Carbon Dioxide 29 (22-30) mmol/L BUN 23 H (7-17) mg/dL Creatinine 1.55 H (0.52-1.04) mg/dL Glucose 189 H (74-99) mg/dL Calcium 9.5 (8.4-10.2) mg/dL AST 11 L (14-36) U/L ALT 14 (9-52) U/L Alkaline Phosphatase 90 (38-126) U/L Total Protein 6.0 L (6.3-8.2) g/dL Albumin 3.8 (3.5-5.0) g/dL Current Medications Generic Name Dose Route Start Last Admin Trade Name Freq PRN Reason Stop Dose Admin Acetaminophen 650 mg 06/04/18 23:26 Tylenol Tab PO Q6HR PRN Mild Pain or Fever > 100.5 Albuterol Sulfate 2.5 mg 06/05/18 08:00 06/05/18 07:38 Ventolin Nebulized INHALATION 2.5 mg RT-QID [facility] Administration Albuterol Sulfate 2.5 mg 06/05/18 03:27 Ventolin Nebulized INHALATION RT-Q2H PRN Shortness Of Breath Or Wheezing Amlodipine Besylate 10 mg 06/05/18 09:00 Norvasc PO DAILY [facility] Aspirin 325 mg 06/05/18 09:00 Aspirin PO DAILY [facility] Atorvastatin Calcium 40 mg 06/05/18 21:00 Lipitor PO HS [facility] Calcium Carbonate/Glycine 500 mg 06/05/18 09:00 Tums PO DAILY [facility] Ciprofloxacin 500 mg 06/05/18 09:00 Cipro PO BID [facility] Dicyclomine HCl 10 mg 06/05/18 07:30 Bentyl PO AC-TID [facility] Famotidine 20 mg 06/05/18 09:00 Pepcid PO DAILY [facility] Ferrous Sulfate 325 mg 06/05/18 09:00 Feosol PO DAILY [facility] Furosemide 40 mg 06/05/18 09:00 Lasix PO DAILY [facility] Gabapentin 300 mg 06/05/18 09:00 Neurontin PO BID [facility] Hydralazine HCl 50 mg 06/05/18 09:00 Apresoline PO TID [facility] Insulin Aspart 0 unit 06/05/18 07:30 Novolog SQ ACHS [facility] Protocol Insulin Detemir 15 unit 06/05/18 21:00 Levemir SQ HS [facility] Labetalol HCl 100 mg 06/05/18 00:00 06/05/18 01:22 Trandate PO Not Given Q12H [facility] Levetiracetam 500 mg 06/05/18 09:00 Keppra PO Q12HR [facility] Melatonin 3 mg 06/05/18 00:00 Melatonin PO HS PRN Insomnia Naloxone HCl 0.2 mg 06/04/18 23:26 Narcan IV Q2M PRN Opioid Reversal Nitroglycerin 1 inch 06/05/18 00:00 06/05/18 04:45 Nitro-Bid Oint TOPICAL Not Given Q6HR [facility] Non-Formulary Medication 1 drop 06/06/18 09:00 Micro [place] (Unknown) BOTH EYES MoFr@0900 [facility] Pantoprazole Sodium 40 mg 06/05/18 09:00 Protonix PO BID [facility] Potassium Chloride 10 meq 06/05/18 09:00 K-Dur 10 PO DAILY [facility] Prednisolone Acetate 1 drops 06/04/18 23:30 06/05/18 01:21 Pred Forte 1% RIGHT EYE Not Given DIRECTED [facility] Sertraline HCl 150 mg 06/05/18 09:00 Zoloft PO DAILY [facility] Intake and Output 06/04/18 06/05/18 06/05/18 22:59 06:59 14:59 Other: Voiding Method Bedpan Weight 87.543 kg 06/04/18 21:39 06/04/18 21:39
[2018-06-05 15:23] LABS: Hemoglobin A1C 6.8 % (4.0-6.0)
[2018-06-05 15:30] VITALS: BMI 31.1
[2018-06-05 16:27] LABS: Glucose,Whole Blood 141 mg/dL (75-99)
[2018-06-05 21:04] LABS: Glucose,Whole Blood 108 mg/dL (75-99)
[2018-06-05] MEDS: ATORVASTATIN 40 MG TAB PO SCH (21:23)
[2018-06-05] MEDS: CIPROFLOXACIN HCL 250 MG TAB PO SCH (21:23)
[2018-06-05] MEDS: INSULIN DETEMIR (LEVEMIR) 100 UNIT/ML SYR SQ SCH (21:24)
[2018-06-06] MEDS: hydrALAZINE HCL 50 MG TAB PO SCH ×3 (06:01→21:32)
[2018-06-06] MEDS: ATORVASTATIN 40 MG TAB PO SCH (06:01)
[2018-06-06] MEDS: PANTOPRAZOLE 40 MG TABLET PO SCH ×2 (06:01→21:32)
[2018-06-06] MEDS: CALCIUM CARBONATE 500 MG CHEWABLE PO SCH (06:01)
[2018-06-06] MEDS: DICYCLOMINE 10 MG CAP PO SCH ×3 (06:01→17:42)
[2018-06-06] MEDS: GABAPENTIN 300 MG CAP PO SCH ×2 (06:01→21:32)
[2018-06-06] MEDS: FAMOTIDINE 20 MG TAB PO SCH (06:01)
[2018-06-06] MEDS: ASPIRIN 325 MG TAB PO SCH (06:01)
[2018-06-06] MEDS: amLODIPine 10 MG TAB PO SCH (06:02)
[2018-06-06] MEDS: POTASSIUM CHLORIDE ER 10 MEQ TAB.ER.PRT PO SCH (06:02)
[2018-06-06] MEDS: FERROUS SULFATE 325 MG TAB PO SCH (06:02)
[2018-06-06] MEDS: levETIRAcetam 500 MG TAB PO SCH ×2 (06:02→21:32)
[2018-06-06] MEDS: CIPROFLOXACIN HCL 250 MG TAB PO SCH ×2 (06:05→21:32)
[2018-06-06] MEDS: SERTRALINE 50 MG TAB PO SCH (06:05)
[2018-06-06 06:48] LABS: Glucose,Whole Blood 184 mg/dL (75-99)
[2018-06-06] MEDS: ALBUTEROL NEBULIZED 2.5 MG/3 ML INHALATION SCH ×4 (07:00→20:31)
[2018-06-06] MEDS ORDERED: [UNRECOGNIZED DRUG - OTHER] BOTH EYES SCH (09:00)
[2018-06-06] MEDS: INSULIN ASPART (NovoLOG) 100 UNIT/ML VIAL SQ SCH ×4 (09:13→21:33)
[2018-06-06] MEDS ORDERED: LIDOCAINE 1% INJ 10MG/ML (20 ML MDV) SQ ONE (10:17)
[2018-06-06] MEDS ORDERED: MIDAZOLAM 2 MG/2 ML VIAL IV ONE (10:17)
[2018-06-06] MEDS ORDERED: VERAPAMIL SYRINGE (5 MG/10 ML) INTRAARTER ONE (10:21)
[2018-06-06] MEDS: HEPARIN SODIUM 1,000 UN/ML (10ML VL) IV ONE ×2 (10:22→10:36)
[2018-06-06] MEDS ORDERED: hydrALAZINE HCL 20 MG/ML 1 ML VIAL IV ONE (10:26)
[2018-06-06] MEDS ORDERED: CLOPIDOGREL 75 MG TAB PO ONE (10:58)
[2018-06-06] MEDS ORDERED: ATROPINE SULFATE 0.1 MG/ML 10ML SYRINGE IV PRN (11:25)
[2018-06-06] MEDS ORDERED: ZOLPIDEM 5 MG TAB PO PRN (11:25)
[2018-06-06] MEDS ORDERED: MAG HYDROX/AL HYDROX/SIMETH 30 ML CUP PO PRN ×2 (11:25→11:26)
[2018-06-06] MEDS ORDERED: RX INFO: IV CONTRAST WAS GIVEN 1 EACH MISC MISCELLANE PRN (11:25)
[2018-06-06] MEDS ORDERED: NITROGLYCERIN SL TABS 0.4 MG TAB SUBLINGUAL PRN (11:25)
[2018-06-06] MEDS ORDERED: SODIUM CHLORIDE 0.9% 1,000 ML IV SCH (11:30)
[2018-06-06] MEDS ORDERED: MAG HYDROX/AL HYDROX/SIMETH 30 ML CUP PO ONE (11:34)
[2018-06-06 11:43] LABS: Glucose,Whole Blood 155 mg/dL (75-99)
--- NOTE | 2018-06-06 12:04 | LTR ---
DATE OF SERVICE: June 06, 2018. RE: SimonZehra Dear Dr. Willingham: Ms. Zehra Montes presented to [facility] with chest discomfort and was diagnosed with unstable angina. I did perform a heart catheterization on her and that revealed severe disease involving the proximal LAD where the LAD was stented with good angiographic result and without any complication. Thank you again for allowing us to participate in her care and please do not hesitate to call if you have a question or concern. Sincerely, MD CHELSEA Zeng / MOLLYN: [phone] /
--- NOTE | 2018-06-06 12:04 | CC ---
CARDIAC CATHETERIZATION REPORT DATE OF SERVICE: 06/06/2018 PERFORMING PHYSICIAN: Jaiden Hawk MD, Project Construction Manager. PROCEDURE PERFORMED: 1. Selective right and left coronary angiogram. 2. Left heart catheterization. 3. Fractional flow reserve (FFR) of the LAD. 4. Successful stenting of the proximal to mid LAD using 3.5 x 18 x 15 mm Xience drug- eluting stent with good angiographic results and reduction of stenosis from 70% to 0%. INDICATION: This is a 72-year-old female patient with history of hypertension, dyslipidemia, and paroxysmal atrial fibrillation, who was admitted to the hospital with chest discomfort concerning for unstable angina. She was seen and evaluated by Dr. Hastings who recommended proceeding with a heart catheterization, given the nature of her pain as well as the EKG changes, which was concerning for angina. APPROACH: Right radial artery. COMPLICATION: None. LEVEL OF SEDATION: Moderate with sedation length of 49 minutes. PROCEDURE DESCRIPTION: After obtaining an informed consent, the patient was brought to the cardiac laboratory inspector. Right radial artery was cannulated using micropuncture technique, the micropuncture wire passed easily, then I placed a 6-Malian sheath 11 cm in the right radial artery. After that, I did give the patient initially 6000 units of heparin IV. I did also give the patient 2 mg of verapamil IA. I did perform selective right and left coronary angiogram using JR4 and JL3.5 catheters. Left heart catheterization was performed using the JR4 catheter which crossed the aortic valve. Then I did pullback across the aortic valve. The procedure was completed without any complication. SELECTIVE CORONARY ANGIOGRAM: 1. The RCA is a medium caliber vessel. It is a nondominant vessel and appeared to be angiographically normal. 2. The left main is a short left main, angiographically normal, bifurcates into a dominant left circumflex and left anterior descending artery. 3. The left circumflex is a large caliber vessel. It is a dominant vessel. The proximal circumflex appeared to be normal and gives rise into first OM branch which appeared to be normal. The mid circumflex is normal and gives rise into second OM branch which appeared to be normal and the circumflex distally appeared to be normal and bifurcates into PDA and PLV branches, both appeared to be angiographically normal. 4. The LAD: The proximal LAD appeared to be angiographically normal. The proximal to mid LAD has a calcified lesion, appeared to be hazy and in the range of 70% was most seen on the CANO caudal view. The LAD distally appeared to be angiographically normal. The LAD in the very proximal portion gives rise into a diagonal branch which appeared to be angiographically normal. HEMODYNAMICS: The left ventricular end-diastolic pressure was 12 mmHg without significant gradient across the aortic valve. FFR and PCI of the LAD: We achieved anticoagulation using heparin with continuous ACT monitoring throughout the procedure. After zeroing the Doppler wire and equalizing between the Doppler wire and the guiding catheter which was JL3 guiding catheter, I did an FFR per IV adenosine infusion and actually we did only an IFR and that came in to be ischemic. Because of that, we decided to pursue with the stenting of the LAD. I did balloon the LAD using 3.5 x 12 mm balloon before I deployed a 3.5 x 15 mm Xience drug- eluting stent where the stent was positioned under fluoroscopy guidance and deployed under 14 atmospheres for 20 seconds with the following angiogram showing good angiographic results and the procedure was completed without any complication. CONCLUSION: 1. Severe calcified lesion involving the proximal to mid LAD. 2. Successful stenting of the proximal to mid LAD using 3.5 x 15 mm Xience drug- eluting stent with good angiographic results. POSTPROCEDURE MANAGEMENT: 1. Dual anti-platelet therapy. 2. Risk factors modifications. 3. Follow up with the patient. MMODL / IJN: [id number] /
--- NOTE | 2018-06-06 13:31 | P.PN ---
Subjective Progress Note Date: 06/06/18 Patient is doing well today. She denies chest pain this morning. She was awaiting her left heart catheterization when I saw her. Objective - Vital Signs Vital signs: Vital Signs Temp 97.9 F 06/06/18 07:30 Pulse 58 L 06/06/18 07:30 Resp 18 06/06/18 07:30 BP 183/69 06/06/18 07:30 Pulse Ox 92 L 06/06/18 07:30 Intake & Output 06/05/18 06/06/18 06/06/18 18:59 06:59 18:59 Intake Total 717 Balance 717 Weight 87.543 kg Intake: Oral 717 Other: Voiding Method Bedpan Bedpan Bedpan # Voids 2 1 1 - Exam General: The patient is awake and alert, in no distress Eye: there is normal conjunctiva bilaterally. Neck: The neck is supple, there is no JVD. Cardiovascular: Normal S1-S2, no S3-S4, no murmurs. Respiratory: Lungs clear to auscultation bilaterally Gastrointestinal: Abdomen is soft, nontender Musculoskeletal: There is no pedal edema. Neurological:. Speech is normal. Skin: Skin is warm and dry - Labs CBC & Chem 7: 06/04/18 21:39 06/06/18 07:18 Labs: Abnormal Lab Results - Last 24 Hours (Table) 05/04/18 06/05/18 06/05/18 Range/Units 21:39 16:17 21:03 BUN (7-17) mg/dL Creatinine (0.52-1.04) mg/dL POC Glucose (mg/dL) 141 H 108 H (75-99) mg/dL Hemoglobin A1c 6.8 H (4.0-6.0) % 06/06/18 06/06/18 06/06/18 Range/Units 06:45 07:18 11:33 BUN 23 H (7-17) mg/dL Creatinine 1.52 H (0.52-1.04) mg/dL POC Glucose (mg/dL) 184 H 155 H (75-99) mg/dL Hemoglobin A1c (4.0-6.0) % Microbiology - Last 24 Hours (Table) 06/05/18 09:33 Urine Culture - Preliminary Urine,Voided Assessment and Plan Assessment: Chest pain/unstable angina: With typical and atypical features. 12-lead EKG with no acute ischemic changes. Serial troponin negative. Echocardiogram showed preserved EF with no significant wall motion or valvular abnormalities. Patient was seen and evaluated by cardiology. 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 A fib - labetalol, tele, no anticoagulation with hx of hemorrhagic mass HX of hemorrhagic intracranial mass - neurosurgeon and neurologist do not want patient on senior living anticoagulation. Obesity - BMI 31.2 - outpatient structured weight loss Debility - uses a wheelchair at home - Fall precautions - has home health already. Chronic: arthritis CKD 3 Uterine cancer Possible discharge tomorrow if cleared by cardiology
[2018-06-06] MEDS: FUROSEMIDE 40 MG TAB PO SCH (14:30)
[2018-06-06] MEDS: NITROGLYCERIN OINT 1 INCH/GM PACKET TOPICAL SCH ×3 (15:04→23:44)
[2018-06-06] MEDS: LABETALOL 100 MG TAB PO SCH ×2 (15:52→23:45)
[2018-06-06 16:24] LABS: Glucose,Whole Blood 133 mg/dL (75-99)
[2018-06-06 21:03] LABS: Glucose,Whole Blood 190 mg/dL (75-99)
[2018-06-06] MEDS: INSULIN DETEMIR (LEVEMIR) 100 UNIT/ML SYR SQ SCH (21:32)
[2018-06-06] MEDS: prednisoLONE ACETATE 1% OPHTH DROPS 5 ML BTL RIGHT EYE SCH (23:44)
[2018-06-07 05:55] LABS: Glucose,Whole Blood 145 mg/dL (75-99)
[2018-06-07] MEDS: NITROGLYCERIN OINT 1 INCH/GM PACKET TOPICAL SCH ×3 (07:26→19:42)
[2018-06-07] MEDS: DICYCLOMINE 10 MG CAP PO SCH ×3 (07:28→19:41)
[2018-06-07] MEDS: INSULIN ASPART (NovoLOG) 100 UNIT/ML VIAL SQ SCH ×4 (07:28→22:28)
[2018-06-07] MEDS: ALBUTEROL NEBULIZED 2.5 MG/3 ML INHALATION SCH ×4 (08:05→20:28)
[2018-06-07 08:19] LABS: Calcium 9.1 mg/dL (8.4-10.2); Potassium 4.2 mmol/L (3.5-5.1)
[2018-06-07] MEDS: ASPIRIN 325 MG TAB PO SCH (09:04)
[2018-06-07] MEDS: GABAPENTIN 300 MG CAP PO SCH ×2 (09:04→22:28)
[2018-06-07] MEDS: FAMOTIDINE 20 MG TAB PO SCH (09:04)
[2018-06-07] MEDS: hydrALAZINE HCL 50 MG TAB PO SCH ×3 (09:04→22:32)
[2018-06-07] MEDS: FUROSEMIDE 40 MG TAB PO SCH (09:04)
[2018-06-07] MEDS: amLODIPine 10 MG TAB PO SCH (09:04)
[2018-06-07] MEDS: CIPROFLOXACIN HCL 250 MG TAB PO SCH (09:04)
[2018-06-07] MEDS: CLOPIDOGREL 75 MG TAB PO SCH (09:05)
[2018-06-07] MEDS: FERROUS SULFATE 325 MG TAB PO SCH (09:05)
[2018-06-07] MEDS: CALCIUM CARBONATE 500 MG CHEWABLE PO SCH (09:05)
[2018-06-07] MEDS: POTASSIUM CHLORIDE ER 10 MEQ TAB.ER.PRT PO SCH (09:10)
[2018-06-07] MEDS: levETIRAcetam 500 MG TAB PO SCH ×2 (09:10→22:28)
[2018-06-07] MEDS: SERTRALINE 50 MG TAB PO SCH (09:10)
[2018-06-07] MEDS: PANTOPRAZOLE 40 MG TABLET PO SCH ×2 (09:10→22:51)
[2018-06-07 12:08] LABS: Glucose,Whole Blood 164 mg/dL (75-99)
--- NOTE | 2018-06-07 12:18 | P.PN ---
Subjective Progress Note Date: 06/07/18 Principal diagnosis: Chest pain Patient was seen and examined. No acute events overnight. Patient reports feeling fatigued this morning. She denies any chest pain, shortness of breath or palpitations. Objective - Vital Signs Vital signs: Vital Signs Temp 97.5 F L 06/07/18 09:24 Pulse 60 06/07/18 09:24 Resp 17 06/07/18 09:24 BP 130/80 06/07/18 09:24 Pulse Ox 95 06/07/18 09:24 Intake & Output 06/06/18 06/07/18 06/07/18 18:59 06:59 18:59 Intake Total 140 340 240 Output Total 375 Balance -235 340 240 Weight 77.5 kg 68.5 kg Intake: IV 0 Sodium Chloride 0.9% 1, 0 000 ml @ 75 mls/hr IV . [id number] [facility] Rx#:[id number] Oral 140 240 Other 340 Output: Urine 375 Other: Voiding Method Bedpan Bedpan # Voids 1 1 # Bowel Movements 1 - Exam General: [non toxic], [no distress], [appears at stated age] Derm: [warm], [dry] Head: [atraumatic], [normocephalic], [symmetric] Eyes: [EOMI], [no lid lag], [anicteric sclera] Mouth: [no lip lesion], [mucus membranes moist] Cardiovascular: [S1S2 reg], [no murmur], [positive DP pulse bilateral] Lungs: [CTA bilateral], [no rhonchi, no rales] , [no accessory muscle use] Abdominal: [soft], [ nontender to palpation], [no guarding], [no appreciable organomegaly] Ext: [no gross muscle atrophy], [no edema], [no contractures] Neuro: [no focal neuro deficits] Psych: [Alert], [oriented], [appropriate affect] - Labs CBC & Chem 7: 06/04/18 21:39 06/07/18 07:17 Labs: Abnormal Lab Results - Last 24 Hours (Table) 06/06/18 06/06/18 06/07/18 Range/Units 16:23 21:01 05:54 BUN (7-17) mg/dL Creatinine (0.52-1.04) mg/dL Glucose (74-99) mg/dL POC Glucose (mg/dL) 133 H 190 H 145 H (75-99) mg/dL 06/07/18 Range/Units 07:17 BUN 19 H (7-17) mg/dL Creatinine 1.57 H (0.52-1.04) mg/dL Glucose 135 H (74-99) mg/dL POC Glucose (mg/dL) (75-99) mg/dL Microbiology - Last 24 Hours (Table) 06/05/18 09:33 Urine Culture - Final Urine,Voided Methicillin resist S. aureus Assessment and Plan Assessment: Assessment and Plan Unstable angina Diabetes mellitus Hypertension CKD stage III Atrial fibrillation Diastolic CHF History of intracranial mass Underwent cardiac cath yesterday, stent placed in LAD. Continue aspirin, Lipitor. Start Plavix daily. Continue beta alexis. Telemetry monitoring. Follow cardiology recommendations. Aruls-kg-sidx glucose 164. Continue Levemir 15 units at bedtime. Insulin sliding scale. Hypoglycemic precautions. Regular Accu-Cheks. BP 130/80. Continue labetalol. Continue hydralazine. Continue Lasix. Continue amlodipine. Monitor vitals, adjust medications as necessary. Creatinine 1.57, stable. Likely secondary to long history of diabetes mellitus. Avoid nephrotoxins. Daily BMP. Rate controlled with labetalol. No anticoagulation due to history of ICH and frequent falls. Potassium greater than 4 and magnesium greater than 2. Follow cardiology recommendations. Echo shows normal EF with diastolic dysfunction. Continue beta alexis. Patient recommended to avoid long-term anticoagulation. Necessary at this time due to history of stent placement. Follow-up with neurology, neurosurgery in the outpatient setting. Patient stented yesterday. Started on dual antiplatelet therapy. Possible discharge pending cardiology recommendations.
--- NOTE | 2018-06-07 12:26 | P.PN ---
Subjective Patient is sitting in bed mild short of breath and says she is short of breath and does not feel well. In. 12-lead ECG in her. She denies any chest discomfort She underwent stenting to the mid LAD has a dual antiplatelet therapy along with statins Blood pressure 130/80 mmHg pulse rate in the 60s afebrile Breath sounds are reduced bilaterally with rhonchorous breath sounds diffusely Heart sounds. Soft and regular no murmurs Abdomen soft Extremities warm Impression Coronary artery disease, admitted with acute Sudhir syndrome no evidence for myocardial infarction She underwent a stenting to the LAD She appears to have COPD exacerbation also and was given breathing treatments. She states she is short of breath Plan Twelve-lead ECG today Continue medical treatment for CAD status post stenting Hold off on discharge Objective - Vital Signs Vital signs: Vital Signs Temp 97.5 F L 06/07/18 09:24 Pulse 62 06/07/18 12:25 Resp 17 06/07/18 09:24 BP 130/80 06/07/18 09:24 Pulse Ox 95 06/07/18 09:24 Intake & Output 06/06/18 06/07/18 06/07/18 18:59 06:59 18:59 Intake Total 140 340 240 Output Total 375 Balance -235 340 240 Weight 77.5 kg 68.5 kg Intake: IV 0 Sodium Chloride 0.9% 1, 0 000 ml @ 75 mls/hr IV . [id number] [facility] Rx#:[id number] Oral 140 240 Other 340 Output: Urine 375 Other: Voiding Method Bedpan Bedpan # Voids 1 1 # Bowel Movements 1 - Labs CBC & Chem 7: 06/04/18 21:39 06/07/18 07:17 Labs: Abnormal Lab Results - Last 24 Hours (Table) 06/06/18 06/06/18 06/07/18 Range/Units 16:23 21:01 05:54 BUN (7-17) mg/dL Creatinine (0.52-1.04) mg/dL Glucose (74-99) mg/dL POC Glucose (mg/dL) 133 H 190 H 145 H (75-99) mg/dL 06/07/18 06/07/18 Range/Units 07:17 12:06 BUN 19 H (7-17) mg/dL Creatinine 1.57 H (0.52-1.04) mg/dL Glucose 135 H (74-99) mg/dL POC Glucose (mg/dL) 164 H (75-99) mg/dL Microbiology - Last 24 Hours (Table) 06/05/18 09:33 Urine Culture - Final Urine,Voided Methicillin resist S. aureus
[2018-06-07 16:43] LABS: Glucose,Whole Blood 162 mg/dL (75-99)
[2018-06-07 17:13] VITALS: RESP 18
[2018-06-07] MEDS: LABETALOL 100 MG TAB PO SCH ×2 (17:38→22:33)
[2018-06-07 20:57] LABS: Glucose,Whole Blood 213 mg/dL (75-99)
[2018-06-07] MEDS: ATORVASTATIN 40 MG TAB PO SCH (22:28)
[2018-06-07] MEDS: INSULIN DETEMIR (LEVEMIR) 100 UNIT/ML SYR SQ SCH (22:28)
[2018-06-08 06:05] LABS: Glucose,Whole Blood 164 mg/dL (75-99)
[2018-06-08] MEDS: DICYCLOMINE 10 MG CAP PO SCH ×2 (06:51→13:03)
[2018-06-08] MEDS: NITROGLYCERIN OINT 1 INCH/GM PACKET TOPICAL SCH ×3 (06:52→13:02)
[2018-06-08] MEDS: INSULIN ASPART (NovoLOG) 100 UNIT/ML VIAL SQ SCH ×2 (06:52→13:04)
[2018-06-08] MEDS: prednisoLONE ACETATE 1% OPHTH DROPS 5 ML BTL RIGHT EYE SCH (06:53)
[2018-06-08] MEDS: ASPIRIN 325 MG TAB PO SCH (08:36)
[2018-06-08] MEDS: levETIRAcetam 500 MG TAB PO SCH (08:36)
[2018-06-08] MEDS: CALCIUM CARBONATE 500 MG CHEWABLE PO SCH (08:36)
[2018-06-08] MEDS: GABAPENTIN 300 MG CAP PO SCH (08:36)
[2018-06-08] MEDS: CLOPIDOGREL 75 MG TAB PO SCH (08:36)
[2018-06-08] MEDS: PANTOPRAZOLE 40 MG TABLET PO SCH (08:36)
[2018-06-08] MEDS: SERTRALINE 50 MG TAB PO SCH (08:36)
[2018-06-08] MEDS: FUROSEMIDE 40 MG TAB PO SCH (08:36)
[2018-06-08] MEDS: FERROUS SULFATE 325 MG TAB PO SCH (08:36)
[2018-06-08] MEDS: POTASSIUM CHLORIDE ER 10 MEQ TAB.ER.PRT PO SCH (08:37)
[2018-06-08] MEDS: hydrALAZINE HCL 50 MG TAB PO SCH (08:37)
[2018-06-08] MEDS: amLODIPine 10 MG TAB PO SCH (08:37)
[2018-06-08] MEDS: FAMOTIDINE 20 MG TAB PO SCH (08:37)
[2018-06-08] MEDS: ALBUTEROL NEBULIZED 2.5 MG/3 ML INHALATION SCH ×2 (09:10→13:40)
[2018-06-08 11:29] LABS: Glucose,Whole Blood 214 mg/dL (75-99)
--- NOTE | 2018-06-08 12:02 | P.PN ---
Subjective Progress Note Date: 06/08/18 Principal diagnosis: status post stent Patient was seen and examined. No acute events overnight. Patient reports resolution of her chest pain. EKG performed yesterday, no changes from previous EKGs. She denies any chest pain, shortness of breath or palpitations. No nausea or vomiting. No fever or chills. Objective - Vital Signs Vital signs: Vital Signs Temp 98.3 F 06/08/18 04:00 Pulse 60 06/08/18 09:24 Resp 18 06/08/18 04:00 BP 160/57 06/08/18 04:00 Pulse Ox 92 L 06/08/18 00:00 Intake & Output 06/07/18 06/08/18 06/08/18 18:59 06:59 18:59 Intake Total 480 120 Output Total 700 750 Balance -220 -750 120 Weight 68 kg Intake: Oral 480 120 Output: Urine 700 750 Other: Voiding Method Bedpan Bedpan # Voids 1 1 1 # Bowel Movements 1 - Exam General: [non toxic], [no distress], [appears at stated age] Derm: [warm], [dry] Head: [atraumatic], [normocephalic], [symmetric] Eyes: [EOMI], [no lid lag], [anicteric sclera] Mouth: [no lip lesion], [mucus membranes moist] Cardiovascular: [S1S2 reg], [no murmur], [positive DP pulse bilateral] Lungs: [CTA bilateral], [no rhonchi, no rales] , [no accessory muscle use] Abdominal: [soft], [ nontender to palpation], [no guarding], [no appreciable organomegaly] Ext: [no gross muscle atrophy], [no edema], [no contractures] Neuro: [no focal neuro deficits] Psych: [Alert], [oriented], [appropriate affect] - Labs CBC & Chem 7: 06/04/18 21:39 06/07/18 07:17 Labs: Abnormal Lab Results - Last 24 Hours (Table) 06/07/18 06/07/18 06/07/18 Range/Units 12:06 16:41 20:49 POC Glucose (mg/dL) 164 H 162 H 213 H (75-99) mg/dL 06/08/18 06/08/18 Range/Units 06:03 11:26 POC Glucose (mg/dL) 164 H 214 H (75-99) mg/dL Microbiology - Last 24 Hours (Table) 06/05/18 09:33 Urine Culture - Final Urine,Voided Methicillin resist S. aureus Assessment and Plan Assessment: Assessment and Plan Unstable angina Diabetes mellitus Hypertension CKD stage III Atrial fibrillation Diastolic CHF History of intracranial mass Underwent cardiac cath yesterday, stent placed in LAD. Continue aspirin, Lipitor. Start Plavix daily. Continue beta alexis. Telemetry monitoring. Follow cardiology recommendations. Gjait-le-imhb glucose 214. Continue Levemir 15 units at bedtime. Insulin sliding scale. Hypoglycemic precautions. Regular Accu-Cheks. BP 160/57. Continue labetalol. Continue hydralazine. Continue Lasix. Continue amlodipine. Monitor vitals, adjust medications as necessary. Creatinine 1.57, stable. Likely secondary to long history of diabetes mellitus. Avoid nephrotoxins. Daily BMP. Rate controlled with labetalol. No anticoagulation due to history of ICH and frequent falls. Potassium greater than 4 and magnesium greater than 2. Follow cardiology recommendations. Echo shows normal EF with diastolic dysfunction. Continue beta alexis. Patient recommended to avoid long-term anticoagulation. Necessary at this time due to history of stent placement. Follow-up with neurology, neurosurgery in the outpatient setting. Patient stented yesterday. Started on dual antiplatelet therapy. DC today pending cardiology clearance.
[2018-06-08 12:22] VITALS: TEMP 97.9
[2018-06-08] MEDS: LABETALOL 100 MG TAB PO SCH (13:04)
[2018-06-08 14:37] VITALS: BP 160/73; PULSE 60
[2018-06-08] MEDS: SULFAMETHOX-TMP 800-160MG 1 EACH TAB PO SCH ×2 (15:02→15:03)
== END 2018-06-08 15:55 | disposition home health service (06) | DRG 247 ==
LOC: EC 21:28 → 1SOBS 22:48 → 3SCARD 06-06 12:49 → OBSVTOIN 06-06 15:03
PROVIDERS: ADMIT Internal Medicine; ATTEND Internal Medicine
PROC: B2151ZZ Fluoroscopy of Left Heart using Low Osmolar Contrast (ICD-10-PCS; 2018-06-06)
PROC: 4A033BC Measurement of Arterial Pressure, Coronary, Percutaneous Approach (ICD-10-PCS; 2018-06-06)
PROC: 4A023N7 Measurement of Cardiac Sampling and Pressure, Left Heart, Percutaneous Approach (ICD-10-PCS; principal; 2018-06-06 10:00)
PROC: 027034Z Dilation of Coronary Artery, One Artery with Drug-eluting Intraluminal Device, Percutaneous Approach (ICD-10-PCS; 2018-06-06 10:00)
PROC: B2111ZZ Fluoroscopy of Multiple Coronary Arteries using Low Osmolar Contrast (ICD-10-PCS; 2018-06-06 10:00)
DX: I25.110 Atherosclerotic heart disease of native coronary artery with unstable angina pectoris (principal); I13.0 Hypertensive heart and chronic kidney disease with heart failure and stage 1 through stage 4 chronic kidney disease, or unspecified chronic kidney disease; I50.32 Chronic diastolic (congestive) heart failure; N39.0 Urinary tract infection, site not specified; E11.22 Type 2 diabetes mellitus with diabetic chronic kidney disease; N18.3 Chronic kidney disease, stage 3 (moderate); J45.909 Unspecified asthma, uncomplicated; Z66 Do not resuscitate; I48.0 Paroxysmal atrial fibrillation; E11.40 Type 2 diabetes mellitus with diabetic neuropathy, unspecified; R53.81 Other malaise; B95.62 Methicillin resistant Staphylococcus aureus infection as the cause of diseases classified elsewhere; Z16.23 Resistance to quinolones and fluoroquinolones; M19.90 Unspecified osteoarthritis, unspecified site; E66.9 Obesity, unspecified; E78.5 Hyperlipidemia, unspecified; R29.6 Repeated falls; F32.9 Major depressive disorder, single episode, unspecified; Z68.31 Body mass index [BMI] 31.0-31.9, adult; Z71.3 Dietary counseling and surveillance; Z86.73 Personal history of transient ischemic attack (TIA), and cerebral infarction without residual deficits; Z88.2 Allergy status to sulfonamides; Z91.040 Latex allergy status; Z79.2 Long term (current) use of antibiotics; Z79.52 Long term (current) use of systemic steroids; Z79.899 Other long term (current) drug therapy; Z85.828 Personal history of other malignant neoplasm of skin; Z85.42 Personal history of malignant neoplasm of other parts of uterus; Z86.19 Personal history of other infectious and parasitic diseases
CPT/HCPCS: 36415; 71046; 80048; 80053; 80061; 81001; 82565; 83036; 83735; 83880; 84484; 84520; 85025; 85610; 85730; 87077; 87086; 87186; 87502; 93005; 93306; 93458; 93571; 94640; 94760; 99285; C1874

== ENCOUNTER 2018-06-10 14:56 | Inpatient (IN) | payer MEDICARE ==
--- NOTE | 2018-06-10 15:20 | ED ---
GI Bleed HPI - General Source: patient, EMS, RN notes reviewed Mode of arrival: EMS Limitations: no limitations <Dennis Mckeon - Last Filed: 06/10/18 15:58> <Juno Burris - Last Filed: 06/10/18 16:07> - General Stated complaint: GI Bleed Time Seen by Provider: 06/10/18 14:59 - History of Present Illness Initial comments: 72-year-old female presents emergency Department with chief complaint of rectal bleeding. Patient states that he noticed in her depends. Patient states that she then had a bowel movement which was bloody in nature. Patient was recently placed on Plavix secondary to having stent placement on Saturday. Patient denies any current chest pain or shortness breath. She has no abdominal pain or cramping at this time she did have some earlier. Patient denies dysuria or noted hematuria though she is currently being treated for urinary tract infection. Denies any vaginal bleeding or vaginal discharge. (Dennis Mckeon) - Related Data Home Medications Medication Instructions Recorded Confirmed Sertraline [Zoloft] 150 mg PO DAILY 01/04/14 06/10/18 Dicyclomine [Bentyl] 10 mg PO AC-TID 03/21/17 06/10/18 Albuterol Inhaler [Ventolin Hfa 1 - 2 puff INHALATION RT-Q6H 03/27/18 06/10/18 Inhaler] Calcium Carbonate 500 mg PO DAILY 03/27/18 06/10/18 Ferrous Sulfate [Iron (65 MG 325 mg PO DAILY 03/27/18 06/10/18 Elemental)] Furosemide [Lasix] 40 mg PO DAILY 03/27/18 06/10/18 Labetalol [Trandate] 100 mg PO Q12H 03/27/18 06/10/18 Potassium Chloride [Klor-Con 8] 8 meq PO DAILY 03/27/18 06/10/18 hydrALAZINE HCL 50 mg PO TID 03/27/18 06/10/18 Acetaminophen Tab [Tylenol] 500 mg PO Q4-6H PRN 06/04/18 06/10/18 Gabapentin [Neurontin] 300 mg PO BID 06/04/18 06/10/18 Insulin Glargine [Lantus] 56 unit SQ HS 06/04/18 06/10/18 Micro [place] (Unknown) 1 drop BOTH EYES MOFR 06/04/18 06/10/18 Omeprazole [PriLOSEC] 20 mg PO BID 06/04/18 06/10/18 amLODIPine [Norvasc] 10 mg PO DAILY 06/04/18 06/10/18 levETIRAcetam [Keppra] 500 mg PO Q12HR 06/04/18 06/10/18 prednisoLONE ACETATE [Pred Forte 1 drop RIGHT EYE DAILY 06/04/18 06/10/18 1%] Previous Rx's Medication Instructions Recorded Aspirin 325 mg PO DAILY #90 tab 06/07/18 Atorvastatin [Lipitor] 40 mg PO HS #90 tab 06/07/18 Clopidogrel [Plavix] 75 mg PO DAILY #90 tab 06/07/18 Nitroglycerin Sl Tabs [Nitrostat] 0.4 mg SUBLINGUAL Q5M PRN #14 tab 06/07/18 Doxycycline [Vibramycin] 100 mg PO BID 7 Days #14 capsule 06/08/18 Allergies Allergy/AdvReac Type Severity Reaction Status Date / Time Latex, Natural Rubber Allergy Itching Verified 06/10/18 15:49 sulfamethoxazole Allergy Rash/Hives Verified 06/10/18 15:49 [From Bactrim] trimethoprim [From Bactrim] Allergy Rash/Hives Verified 06/10/18 15:49 Review of Systems ROS Other: All systems not noted in ROS Statement are negative. <Dennis Mckeon - Last Filed: 06/10/18 15:58> ROS Other: All systems not noted in ROS Statement are negative. <Juno Burris - Last Filed: 06/10/18 16:07> ROS Statement: Those systems with pertinent positive or pertinent negative responses have been documented in the HPI. 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 Brain mass with intercranial hemorrhage/hematoma treated at [facility]. Bronchial asthma, previous cardiac catheterization from January 2014 showing a mild coronary artery disease involving the LAD, uterine cancer 1994, broken left arm in 2006, skin cancer/resected , history of C. diff colitis, chronic renal failure, chronic atrial fibrillation, CHF History of Any Multi-Drug Resistant Organisms: C-DIFF, MRSA Date of last positivie culture/infection: 06/09/11 MDRO Source:: Thumb Past Surgical History: Cholecystectomy, Hysterectomy Additional Past Surgical History / Comment(s): eye sx cornea transplant, Evacu ation on intracranial hematoma and ressection of hemorrhagic mass, pacemaker 2016 Past Anesthesia/Blood Transfusion Reactions: No Reported Reaction Additional Past Anesthesia/Blood Transfusion Reaction / Comment(s): no previous blood transfusions Past Psychological History: Depression Smoking Status: Never smoker Past Alcohol Use History: None Reported Past Drug Use History: None Reported - Past Family History Mother Family Medical History: Cancer, COPD, Hypertension Father Family Medical History: Cancer, Hypertension <Dennis Mckeon - Last Filed: 06/10/18 15:58> General Exam Limitations: no limitations, language barrier General appearance: alert, in no apparent distress Head exam: Present: atraumatic, normocephalic, normal inspection Eye exam: Present: normal appearance, PERRL, EOMI. Absent: scleral icterus, conjunctival injection, periorbital swelling Neck exam: Present: normal inspection, full ROM. Absent: tenderness, meningismus, lymphadenopathy Respiratory exam: Present: normal lung sounds bilaterally. Absent: respiratory distress, wheezes, rales, rhonchi, stridor Cardiovascular Exam: Present: regular rate, normal rhythm, normal heart sounds. Absent: systolic murmur, diastolic murmur, rubs, gallop, clicks GI/Abdominal exam: Present: soft, normal bowel sounds. Absent: distended, tenderness, guarding, rebound, rigid Rectal exam: Present: other (Exam performed with NIKITA Grier). Absent: normal inspection (Blood noted) Back exam: Absent: CVA tenderness (R), CVA tenderness (L) Neurological exam: Present: alert, oriented X3, CN II-XII intact Skin exam: Present: warm, dry, intact, normal color. Absent: rash <Dennis Mckeon - Last Filed: 06/10/18 15:58> Course <Juno Burris - Last Filed: 06/10/18 16:07> Vital Signs 06/10/18 14:58 Temperature 97.8 F Pulse Rate 61 Respiratory 18 Rate Blood Pressure 144/55 O2 Sat by Pulse 93 L Oximetry - Reevaluation(s) Reevaluation #1: 06/10/18 16:06 PA supervision: I proceeded [id number] evaluation the patient discuss [employer] her and her family. I did discuss case with Dr. Lynnnt will be admitted for evaluation for GI bleeding and chronic evaluation. (Juno Burris) Medical Decision Making - Lab Data Result diagrams: 06/10/18 15:18 06/10/18 15:18 <Dennis Mckeon - Last Filed: 06/10/18 15:58> - Lab Data Result diagrams: 06/10/18 15:18 06/10/18 15:18 <Juno Burris - Last Filed: 06/10/18 16:07> - Medical Decision Making 72-year-old female presented for GI bleed. Patient did have noted bright red blood on exam. Patient has no source of hemorrhoids evident. Patient will be admitted for GI bleed secondary to recent surgery on Plavix and aspirin. (Dennis Mckeon) - Lab Data Lab Results 06/10/18 06/10/18 06/10/18 Range/Units 15:08 15:18 15:18 WBC 9.1 (3.8-10.6) k/uL RBC 4.76 (3.80-5.40) m/uL Hgb 13.4 (11.4-16.0) gm/dL Hct 40.8 (34.0-46.0) % MCV 85.7 (80.0-100.0) fL MCH 28.2 (25.0-35.0) pg MCHC 32.9 (31.0-37.0) g/dL RDW 13.9 (11.5-15.5) % Plt Count 206 (150-450) k/uL Neutrophils % 71 % Lymphocytes % 18 % Monocytes % 7 % Eosinophils % 2 % Basophils % 1 % Neutrophils # 6.5 (1.3-7.7) k/uL Lymphocytes # 1.6 (1.0-4.8) k/uL Monocytes # 0.6 (0-1.0) k/uL Eosinophils # 0.2 (0-0.7) k/uL Basophils # 0.1 (0-0.2) k/uL PT (9.0-12.0) sec INR (<1.2) APTT (22.0-30.0) sec Sodium 140 (137-145) mmol/L Potassium 4.8 (3.5-5.1) mmol/L Chloride 104 (98-107) mmol/L Carbon Dioxide 28 (22-30) mmol/L Anion Gap 8 mmol/L BUN 39 H (7-17) mg/dL Creatinine 1.60 H (0.52-1.04) mg/dL Est GFR (CKD-EPI)AfAm 37 (>60 ml/min/1.73 sqM) Est GFR (CKD-EPI)NonAf 32 (>60 ml/min/1.73 sqM) Glucose 150 H (74-99) mg/dL Calcium 9.7 (8.4-10.2) mg/dL Total Bilirubin 0.6 (0.2-1.3) mg/dL AST 20 (14-36) U/L ALT 24 (9-52) U/L Alkaline Phosphatase 97 (38-126) U/L Total Protein 6.8 (6.3-8.2) g/dL Albumin 4.4 (3.5-5.0) g/dL Stool Occult Blood Positive H (Negative) 06/10/18 Range/Units 15:18 WBC (3.8-10.6) k/uL RBC (3.80-5.40) m/uL Hgb (11.4-16.0) gm/dL Hct (34.0-46.0) % MCV (80.0-100.0) fL MCH (25.0-35.0) pg MCHC (31.0-37.0) g/dL RDW (11.5-15.5) % Plt Count (150-450) k/uL Neutrophils % % Lymphocytes % % Monocytes % % Eosinophils % % Basophils % % Neutrophils # (1.3-7.7) k/uL Lymphocytes # (1.0-4.8) k/uL Monocytes # (0-1.0) k/uL Eosinophils # (0-0.7) k/uL Basophils # (0-0.2) k/uL PT 9.8 (9.0-12.0) sec INR 0.9 (<1.2) APTT 21.6 L (22.0-30.0) sec Sodium (137-145) mmol/L Potassium (3.5-5.1) mmol/L Chloride (98-107) mmol/L Carbon Dioxide (22-30) mmol/L Anion Gap mmol/L BUN (7-17) mg/dL Creatinine (0.52-1.04) mg/dL Est GFR (CKD-EPI)AfAm (>60 ml/min/1.73 sqM) Est GFR (CKD-EPI)NonAf (>60 ml/min/1.73 sqM) Glucose (74-99) mg/dL Calcium (8.4-10.2) mg/dL Total Bilirubin (0.2-1.3) mg/dL AST (14-36) U/L ALT (9-52) U/L Alkaline Phosphatase (38-126) U/L Total Protein (6.3-8.2) g/dL Albumin (3.5-5.0) g/dL Stool Occult Blood (Negative) Disposition <Dennis Mckeon - Last Filed: 06/10/18 15:58> <Juno Burris - Last Filed: 06/10/18 16:07> Clinical Impression: Hematochezia Disposition: ADMITTED IP TO THIS HOSP Condition: Fair Referrals: Lisa Willingham MD [Primary Care Provider] - 1-2 days
[2018-06-10 15:28] LABS: Basophils # (A) 0.1 k/uL (0-0.2); Basophils % (A) 1 %; Eosinophils # (A) 0.2 k/uL (0-0.7); Eosinophils % (A) 2 %; HCT 40.8 % (34.0-46.0); HGB 13.4 gm/dL (11.4-16.0); Lymphocytes # (A) 1.6 k/uL (1.0-4.8); Lymphocytes % (A) 18 %; MCH 28.2 pg (25.0-35.0); MCHC 32.9 g/dL (31.0-37.0); MCV 85.7 fL (80.0-100.0); Mean Platelet Volume 7.4; Monocytes # (A) 0.6 k/uL (0-1.0); Monocytes % (A) 7 %; Neutrophils # (A) 6.5 k/uL (1.3-7.7); Neutrophils % (A) 71 %; Platelet Count 206 k/uL (150-450); RBC 4.76 m/uL (3.80-5.40); RDW 13.9 % (11.5-15.5); WBC 9.1 k/uL (3.8-10.6)
[2018-06-10 15:44] LABS: Albumin 4.4 g/dL (3.5-5.0); Calcium 9.7 mg/dL (8.4-10.2); Potassium 4.8 mmol/L (3.5-5.1); Total Bilirubin 0.6 mg/dL (0.2-1.3); Total Protein 6.8 g/dL (6.3-8.2)
[2018-06-10 15:53] LABS: INR 0.9 (<1.2); Prothrombin Time 9.8 sec (9.0-12.0)
[2018-06-10 15:56] LABS: Partial Thromboplastin Time 21.6 sec (22.0-30.0)
[2018-06-10] MEDS ORDERED: NALOXONE 0.4 MG/ML 1 ML VIAL IV PRN (15:59)
[2018-06-10] MEDS ORDERED: ONDANSETRON 4 MG/2 ML VIAL IVP PRN (16:59)
--- NOTE | 2018-06-10 17:10 | P.HPIM ---
History of Present Illness H&P Date: 06/10/18 Chief Complaint: bright red blood per rectum Patient is a 72-year-old female with a past medical history of atherosclerotic coronary artery disease with recent stent to the LAD one week ago, diabetes mellitus type 2, prior intracranial mass with hemorrhage status po st resection, dyslipidemia, and multiple other comorbid conditions as listed below who presented to the emergency department with complaints of bright red blood per rectum. In the ER she underwent an extensive evaluation. Her initial vital signs were within normal limits. Initial laboratory analysis was normal with hemoglobin of 13.4. Creatinine is at her baseline of approximately 1.6. Fecal occult blood was positive. She was subsequently placed in observation. Patient seen and examined at bedside in the emergency department with son and [id number] present. She states that today she was noted to have bright red blood on wiping. On exam of the stool it appeared dark and tarry. She denies any nausea, vomiting, or abdominal pain. She states that things have smelled tasted different since being discharged from the hospital on 06/08. She was hospitalized secondary to chest pain and ultimately underwent cardiac catheterization with stent to the LAD. She was started on dual antiplatelet therapy with aspirin and Plavix. She has been consistently taking her medications. She denies any chest pain, shortness of breath, palpitations, cough. She has been taking doxycycline for MRSA urinary tract infection has been compliant with her medications. She states that her urine is still dark and she is still urinating less than normal but her dysuria is getting better. She continues to have numbness in her toes which is unchanged. She overall has felt weak and just not right after leaving the hospital. She has no other complaints currently. She is wheelchair and sometimes a walker. Her [id number] is her primary caregiver. Her son administers all medications. Patient has had difficulty with ambulation and memory since her intracranial mass several years ago. Apparently she had reported some chest pain in the ED and a troponin was ordered. On my exam she denies any current chest pain or significant chest pain since discharge. Review of Systems Pertinent positives and negatives as discussed in HPI, a complete review of s ystems was performed and all other systems are negative. 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 Brain mass with intercranial hemorrhage/hematoma treated at [facility]. Bronchial asthma, previous cardiac catheterization from January 2014 showing a mild coronary artery disease involving the LAD, uterine cancer 1994, broken left arm in 2006, skin cancer/resected , history of C. diff colitis, chronic renal failure, chronic atrial fibrillation, CHF History of Any Multi-Drug Resistant Organisms: C-DIFF, MRSA Date of last positivie culture/infection: 06/09/11 MDRO Source:: Thumb Past Surgical History: Cholecystectomy, Hysterectomy Additional Past Surgical History / Comment(s): eye sx cornea transplant, Evacuation on intracranial hematoma and ressection of hemorrhagic mass, pacemaker 2016 Past Anesthesia/Blood Transfusion Reactions: No Reported Reaction Additional Past Anesthesia/Blood Transfusion Reaction / Comment(s): no previous blood transfusions Past Psychological History: Depression Smoking Status: Never smoker Past Alcohol Use History: None Reported Past Drug Use History: None Reported Additional History: Lives with son and [id number], uses wheelchair and walker. - Past Family History Mother Family Medical History: Cancer, COPD, Hypertension Father Family Medical History: Cancer, Hypertension Medications and Allergies Home Medications Medication Instructions Recorded Confirmed Type Sertraline [Zoloft] 150 mg PO DAILY 01/04/14 06/10/18 History Dicyclomine [Bentyl] 10 mg PO AC-TID 03/21/17 06/10/18 History Albuterol Inhaler [Ventolin Hfa 1 - 2 puff INHALATION RT-Q6H 03/27/18 06/10/18 History Inhaler] Calcium Carbonate 500 mg PO DAILY 03/27/18 06/10/18 History Ferrous Sulfate [Iron (65 MG 325 mg PO DAILY 03/27/18 06/10/18 History Elemental)] Furosemide [Lasix] 40 mg PO DAILY 03/27/18 06/10/18 History Labetalol [Trandate] 100 mg PO Q12H 03/27/18 06/10/18 History Potassium Chloride [Klor-Con 8] 8 meq PO DAILY 03/27/18 06/10/18 History hydrALAZINE HCL 50 mg PO TID 03/27/18 06/10/18 History Acetaminophen Tab [Tylenol] 500 mg PO Q4-6H PRN 06/04/18 06/10/18 History Gabapentin [Neurontin] 300 mg PO BID 06/04/18 06/10/18 History Insulin Glargine [Lantus] 56 unit SQ HS 06/04/18 06/10/18 History Micro [place] (Unknown) 1 drop BOTH EYES MOFR 06/04/18 06/10/18 History Omeprazole [PriLOSEC] 20 mg PO BID 06/04/18 06/10/18 History amLODIPine [Norvasc] 10 mg PO DAILY 06/04/18 06/10/18 History levETIRAcetam [Keppra] 500 mg PO Q12HR 06/04/18 06/10/18 History prednisoLONE ACETATE [Pred Forte 1 drop RIGHT EYE DAILY 06/04/18 06/10/18 History 1%] Aspirin 325 mg PO DAILY #90 tab 06/07/18 06/10/18 Rx Atorvastatin [Lipitor] 40 mg PO HS #90 tab 06/07/18 06/10/18 Rx Clopidogrel [Plavix] 75 mg PO DAILY #90 tab 06/07/18 06/10/18 Rx Nitroglycerin Sl Tabs [Nitrostat] 0.4 mg SUBLINGUAL Q5M PRN #14 tab 06/07/18 06/10/18 Rx Doxycycline [Vibramycin] 100 mg PO BID 7 Days #14 capsule 06/08/18 06/10/18 Rx Allergies Allergy/AdvReac Type Severity Reaction Status Date / Time Latex, Natural Rubber Allergy Itching Verified 06/10/18 15:49 sulfamethoxazole Allergy Rash/Hives Verified 06/10/18 15:49 [From Bactrim] trimethoprim [From Bactrim] Allergy Rash/Hives Verified 06/10/18 15:49 Physical Exam Osteopathic Statement: *. No significant issues noted on an osteopathic structural exam other than those noted in the History and Physical/Consult. Vitals: Vital Signs Temp Pulse Resp BP Pulse Ox 06/10/18 16:00 60 18 153/64 93 L 06/10/18 14:58 97.8 F 61 18 144/55 93 L Intake and Output 06/10/18 06/10/18 06/10/18 06:59 14:59 22:59 Other: Weight 87.543 kg General: non toxic, no distress, appears at stated age, obese Derm: no unusual rashes/lesions no unusual ecchymoses, warm, dry Head: atraumatic, normocephalic, symmetric Eyes: EOMI, no lid lag, anicteric sclera, pupils equal round reactive to light ENT: Nose and ears atraumatic, no thrush, no pharyngeal erythema Neck: No thyromegaly, no cervical lymphadenopathy, trachea midline, supple Mouth: no lip lesion, mucus membranes moist, poor dentition Cardiovascular: S1S2 reg, no murmur, positive posterior tibial pulse bilateral, no edema, capillary refill less than 2 seconds Lungs: Sounds bilateral, no rhonchi, no rales , no accessory muscle use Abdominal: soft, nontender to palpation, no guarding, no appreciable organomegaly, normal bowel sounds Ext: no gross muscle atrophy, muscle strength 4 out of 5 in all 4 extremities grossly, no contractures, Neuro: CN II-XI grossly intact, light touch intact all 4 extremities, finger to nose on the right, Psych: Alert, oriented, appropriate affect Results CBC & Chem 7: 06/10/18 15:18 06/10/18 15:18 Labs: Abnormal Lab Results - Last 24 Hours (Table) 06/10/18 06/10/18 06/10/18 Range/Units 15:08 15:18 15:18 APTT 21.6 L (22.0-30.0) sec BUN 39 H (7-17) mg/dL Creatinine 1.60 H (0.52-1.04) mg/dL Glucose 150 H (74-99) mg/dL Stool Occult Blood Positive H (Negative) Thrombosis Risk Factor Assmnt - DVT/VTE Prophylaxis DVT/VTE Prophylaxis: Mechanical Prophylaxis ordered Assessment and Plan Assessment: GI bleed -Need to continue with aspirin and Plavix therapy secondary to stent being placed last week to the LAD -IV PPI twice a day -CBC every 6 hours -GI consultation -Nothing by mouth Coronary artery disease with recent PCI to the LAD 06/06/18 -Continue with aspirin, Plavix, beta alexis, and statin therapy -Consult cardiology with, contaminant GI bleed -Patient complains of some feeling when trying to sleep at night will check chest x-ray and BNP Elevated troponin, likely due to stress from GI bleed - on ASA, BB, statin, and plavix - follow repeat troponin if continues to rise significantly consult cardio - patient currently denies chest pain. 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 A fib - labetalol, tele, no anticoagulation with GI bleed and hx of hemorrhagic mass HX of hemorrhagic intracranial mass - supportive care - on prophylactic keppra maintain - neurosurgeon and neurologist do not want patient on intermediate frame tender anticoagulation. Obesity - BMI 31.2 - outpatient structured weight loss Debility - uses a wheelchair at home - Fall precautions - has home health already. The patient is placed in observation with an anticipated less than 2 per night stay for evaluation of GI bleed. Surrogate decision-maker: Son CODE STATUS: Full DVT prophylaxis: SCDs Discussed with: Patient, family, ED physician Anticipated discharge date: 1-[address]: home A total of 55 minutes was spent on the care of this complex patient more than 50% of the time was spent in counseling and care coordination.
--- NOTE | 2018-06-10 17:58 | XR ---
EXAMINATION: XR chest 1V portable DATE AND TIME: 06/10/2018 5:25 PM CLINICAL INDICATION: PHH; shortness of breath TECHNIQUE: AP upright portable COMPARISON: 06/04/2018 FINDINGS: The lungs are clear. The pleural spaces are negative. Cardiac pacemaker noted. The cardiac silhouette is not enlarged. The remainder of the mediastinal silhouette is unremarkable. The skeletal structures and soft tissues are negative for acute findings. IMPRESSION: NO ACUTE PROCESS.
[2018-06-10] MEDS: SODIUM CHLORIDE 0.9% 1,000 ML IV SCH (18:17)
[2018-06-10] MEDS: DICYCLOMINE 10 MG CAP PO SCH (18:18)
[2018-06-10] MEDS: LABETALOL 100 MG TAB PO SCH (18:18)
[2018-06-10] MEDS: INSULIN ASPART (NovoLOG) 100 UNIT/ML VIAL SQ SCH ×2 (18:18→23:35)
[2018-06-10 20:34] LABS: Glucose,Whole Blood 141 mg/dL (75-99)
[2018-06-10] MEDS ORDERED: INSULIN DETEMIR (LEVEMIR) 100 UNIT/ML SYR SQ SCH (21:00)
[2018-06-10] MEDS: ALBUTEROL NEBULIZED 2.5 MG/3 ML INHALATION SCH (21:22)
[2018-06-10] MEDS: hydrALAZINE HCL 50 MG TAB PO SCH (21:41)
[2018-06-10] MEDS: ATORVASTATIN 40 MG TAB PO SCH (21:41)
[2018-06-10] MEDS: PANTOPRAZOLE 40 MG/10 ML VIAL IVP SCH (21:41)
[2018-06-10] MEDS: levETIRAcetam 500 MG TAB PO SCH (21:41)
[2018-06-10] MEDS: DOXYCYCLINE 100 MG CAP PO SCH (21:41)
[2018-06-10] MEDS: GABAPENTIN 300 MG CAP PO SCH (21:41)
[2018-06-10] MEDS: INSULIN DETEMIR (LEVEMIR) 100 UNIT/ML SYR SQ SCH (22:03)
[2018-06-10 22:49] LABS: Basophils # (A) 0.1 k/uL (0-0.2); Basophils % (A) 1 %; Eosinophils # (A) 0.3 k/uL (0-0.7); Eosinophils % (A) 4 %; HCT 38.5 % (34.0-46.0); HGB 12.7 gm/dL (11.4-16.0); Lymphocytes # (A) 2.2 k/uL (1.0-4.8); Lymphocytes % (A) 27 %; MCH 27.9 pg (25.0-35.0); MCV 84.5 fL (80.0-100.0); Monocytes # (A) 0.6 k/uL (0-1.0); Monocytes % (A) 8 %; Neutrophils # (A) 4.8 k/uL (1.3-7.7); Neutrophils % (A) 59 %; Platelet Count 185 k/uL (150-450); RBC 4.56 m/uL (3.80-5.40); RDW 13.6 % (11.5-15.5); WBC 8.1 k/uL (3.8-10.6)
[2018-06-10 23:36] LABS: Glucose,Whole Blood 143 mg/dL (75-99)
[2018-06-11] MEDS: ALBUTEROL NEBULIZED 2.5 MG/3 ML INHALATION SCH ×4 (04:08→19:42)
[2018-06-11 05:38] LABS: Glucose,Whole Blood 98 mg/dL (75-99)
[2018-06-11] MEDS: INSULIN ASPART (NovoLOG) 100 UNIT/ML VIAL SQ SCH ×3 (05:38→17:17)
[2018-06-11] MEDS: LABETALOL 100 MG TAB PO SCH ×2 (06:00→16:43)
[2018-06-11] MEDS: SODIUM CHLORIDE 0.9% 1,000 ML IV SCH ×2 (06:01→16:41)
[2018-06-11 06:49] LABS: Glucose,Whole Blood 111 mg/dL (75-99)
[2018-06-11 08:40] LABS: Basophils # (A) 0.1 k/uL (0-0.2); Basophils % (A) 1 %; Eosinophils # (A) 0.2 k/uL (0-0.7); Eosinophils % (A) 4 %; HCT 36.1 % (34.0-46.0); HGB 12.2 gm/dL (11.4-16.0); Lymphocytes # (A) 1.8 k/uL (1.0-4.8); Lymphocytes % (A) 30 %; MCH 29.6 pg (25.0-35.0); MCHC 33.9 g/dL (31.0-37.0); MCV 87.2 fL (80.0-100.0); Mean Platelet Volume 7.6; Monocytes # (A) 0.5 k/uL (0-1.0); Monocytes % (A) 8 %; Neutrophils # (A) 3.3 k/uL (1.3-7.7); Neutrophils % (A) 55 %; Platelet Count 177 k/uL (150-450); RBC 4.14 m/uL (3.80-5.40); RDW 14.3 % (11.5-15.5)
[2018-06-11 08:50] LABS: Potassium 4.1 mmol/L (3.5-5.1)
[2018-06-11] MEDS ORDERED: prednisoLONE ACETATE 1% OPHTH DROPS 5 ML BTL RIGHT EYE SCH (09:00)
[2018-06-11] MEDS: PANTOPRAZOLE 40 MG/10 ML VIAL IVP SCH (09:02)
[2018-06-11] MEDS: DOXYCYCLINE 100 MG CAP PO SCH ×2 (09:04→21:19)
[2018-06-11] MEDS: DICYCLOMINE 10 MG CAP PO SCH ×3 (09:04→16:40)
[2018-06-11] MEDS: POTASSIUM CHLORIDE ER 10 MEQ TAB.ER.PRT PO SCH (09:05)
[2018-06-11] MEDS: levETIRAcetam 500 MG TAB PO SCH ×2 (09:05→21:19)
[2018-06-11] MEDS: hydrALAZINE HCL 50 MG TAB PO SCH ×3 (09:05→21:19)
[2018-06-11] MEDS: GABAPENTIN 300 MG CAP PO SCH ×2 (09:05→21:19)
[2018-06-11] MEDS: amLODIPine 10 MG TAB PO SCH (09:05)
[2018-06-11] MEDS: FUROSEMIDE 40 MG TAB PO SCH (09:05)
[2018-06-11] MEDS: FERROUS SULFATE 325 MG TAB PO SCH (09:06)
[2018-06-11] MEDS: SERTRALINE 50 MG TAB PO SCH (09:06)
[2018-06-11] MEDS: prednisoLONE ACETATE 1% OPHTH DROPS 5 ML BTL LEFT EYE SCH (09:18)
[2018-06-11 11:08] LABS: Glucose,Whole Blood 87 mg/dL (75-99)
[2018-06-11] MEDS: ASPIRIN 81 MG PO SCH (12:07)
[2018-06-11] MEDS: CLOPIDOGREL 75 MG TAB PO SCH (12:07)
[2018-06-11] MEDS: CALCIUM CARBONATE 500 MG CHEWABLE PO SCH (12:08)
--- NOTE | 2018-06-11 12:21 | P.CONS ---
History of Present Illness - Reason for Consult Consult date: 06/11/18 [facility] Requesting physician: Milady Mosley - Chief Complaint Melena hematochezia - History of Present Illness 72-year-old female with a past medical history of CAD status post stent in LAD 06/06/2018 secondary to ACS maintained on dual antiplatelet therapy, diabetes, intracranial bleed status post resection, resting tremors presents with bright red blood mixed with melanotic stool 1 yesterday. Patient takes iron at home. Mild lower abdominal cramping no emesis. No history of recent GI bleed. To her memory last colonoscopy 2-3 years ago within normal limits. No recent EGD. Possible remote GI bleed decades ago but does not recover the details. FOBT positive. Admission hemoglobin 13.4 presently 12.2. MCV 87. Platelet 177. INR 0.9. No alcohol NSAIDs. Increased BUN 39. Troponin 0.069. Review of Systems Constitutional: Denies fever, chills, sweats, weight gain, or loss. HEENT: Negative for migraines, blurred vision or loss, earaches, drainage, tinnitus, oral mucosal lesions, dysphagia, or odynophagia. CARDIAC: Negative for chest pain, arrhythmias, or palpitation. RESPIRATORY: Negative for shortness of breath, hemoptysis, cough, or sputum production. GI: See HPI for pertinent findings. : Negative for hematuria, urgency, frequency, polyuria, or dysuria. GYNc: Denies possibility of . Negative vaginal discharge. MUSCULOSKELETAL: Negative for muscle aches, swelling, arthritis, and arthralgias. NEUROLOGIC: Negative for stroke or TIA. ENDOCRINE: Negative for thyroid problems. SKIN: Negative for rash or itching. 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 Brain mass with intercranial hemorrhage/hematoma treated at [facility]. Bronchial asthma, previous cardiac catheterization from January 2014 showing a mild coronary artery disease involving the LAD, uterine cancer 1994, broken left arm in 2006, skin cancer/resected , history of C. diff colitis, chronic renal failure, chronic atrial fibrillation, CHF History of Any Multi-Drug Resistant Organisms: MRSA Year Discovered:: 06/05/18 MDRO Source:: URINE Past Surgical History: Cholecystectomy, Hysterectomy Additional Past Surgical History / Comment(s): eye sx cornea transplant, Evacuation on intracranial hematoma and ressection of hemorrhagic mass, pacemaker 2016 Past Anesthesia/Blood Transfusion Reactions: No Reported Reaction Additional Past Anesthesia/Blood Transfusion Reaction / Comm: no previous blood transfusions Past Psychological History: Depression Smoking Status: Never smoker Past Alcohol Use History: None Reported Past Drug Use History: None Reported - Past Family History Mother Family Medical History: Cancer, COPD, Hypertension Father Family Medical History: Cancer, Hypertension Medications and Allergies Home Medications Medication Instructions Recorded Confirmed Type Sertraline [Zoloft] 150 mg PO DAILY 01/04/14 06/10/18 History Dicyclomine [Bentyl] 10 mg PO AC-TID 03/21/17 06/10/18 History Albuterol Inhaler [Ventolin Hfa 1 - 2 puff INHALATION RT-Q6H 03/27/18 06/10/18 History Inhaler] Calcium Carbonate 500 mg PO DAILY 03/27/18 06/10/18 History Ferrous Sulfate [Iron (65 MG 325 mg PO DAILY 03/27/18 06/10/18 History Elemental)] Furosemide [Lasix] 40 mg PO DAILY 03/27/18 06/10/18 History Labetalol [Trandate] 100 mg PO Q12H 03/27/18 06/10/18 History Potassium Chloride [Klor-Con 8] 8 meq PO DAILY 03/27/18 06/10/18 History hydrALAZINE HCL 50 mg PO TID 03/27/18 06/10/18 History Acetaminophen Tab [Tylenol] 500 mg PO Q4-6H PRN 06/04/18 06/10/18 History Gabapentin [Neurontin] 300 mg PO BID 06/04/18 06/10/18 History Insulin Glargine [Lantus] 56 unit SQ HS 06/04/18 06/10/18 History Micro [place] (Unknown) 1 drop BOTH EYES MOFR 06/04/18 06/10/18 History Omeprazole [PriLOSEC] 20 mg PO BID 06/04/18 06/10/18 History amLODIPine [Norvasc] 10 mg PO DAILY 06/04/18 06/10/18 History levETIRAcetam [Keppra] 500 mg PO Q12HR 06/04/18 06/10/18 History prednisoLONE ACETATE [Pred Forte 1 drop LEFT EYE DAILY 06/04/18 06/11/18 History 1%] Aspirin 325 mg PO DAILY #90 tab 06/07/18 06/10/18 Rx Atorvastatin [Lipitor] 40 mg PO HS #90 tab 06/07/18 06/10/18 Rx Clopidogrel [Plavix] 75 mg PO DAILY #90 tab 06/07/18 06/10/18 Rx Nitroglycerin Sl Tabs [Nitrostat] 0.4 mg SUBLINGUAL Q5M PRN #14 tab 06/07/18 06/10/18 Rx Doxycycline [Vibramycin] 100 mg PO BID 7 Days #14 capsule 06/08/18 06/10/18 Rx Allergies Allergy/AdvReac Type Severity Reaction Status Date / Time Latex, Natural Rubber Allergy Itching Verified 06/10/18 15:49 sulfamethoxazole Allergy Rash/Hives Verified 06/10/18 15:49 [From Bactrim] trimethoprim [From Bactrim] Allergy Rash/Hives Verified 06/10/18 15:49 Physical Exam Vitals: Vital Signs Temp Pulse Pulse Resp BP BP Pulse Ox 06/11/18 11:45 97.7 F 61 16 132/50 97 06/11/18 11:05 70 06/11/18 10:54 68 06/11/18 07:00 67 06/11/18 06:50 66 06/11/18 05:59 97.4 F L 60 20 143/67 94 L 06/10/18 21:38 64 06/10/18 21:22 60 06/10/18 21:00 97.8 F 58 L 18 152/61 95 06/10/18 17:51 97.8 F 55 L 16 143/56 92 L 06/10/18 17:13 98.0 F 62 18 170/63 94 L 06/10/18 16:00 60 18 153/64 93 L 06/10/18 14:58 97.8 F 61 18 144/55 93 L Intake and Output 06/10/18 06/11/18 06/11/18 22:59 06:59 14:59 Intake Total 800 Balance 800 Intake: Intake, IV Titration 800 Amount Sodium Chloride 0.9% 1, 800 000 ml @ 100 mls/hr IV . Q10H [facility] Rx#:[id number] Other: Voiding Method Bedpan Bedpan # Voids 1 # Bowel Movements 1 General appearance: The patient is alert, oriented, in no acute distress. HET: Head is normocephalic and atraumatic. Pupils are equal and reactive. Oropharynx is clear without lesions. Neck: Supple without lymphadenopathy. Trachea midline. Heart: S1 S2. Regular rate and rhythm. Lungs: No crackles or wheezes are heard. Abdomen: Soft, nontender, nondistended with bowel sounds. No peritoneal signs. No palpable organomegaly or masses. Extremities: Normal skin color and turgor. No cyanosis, rash, ulceration, clubbing, or edema. Radial and pedal pulses are 2/4 bilaterally. Neurological: No focal deficits. Strength and sensation are grossly intact. Rectal: No palpable masses no obvious bleeding brown stool on finger. Results CBC & Chem 7: 06/11/18 08:10 06/11/18 08:28 Labs: Abnormal Lab Results - Last 24 Hours (Table) 06/10/18 06/10/18 06/10/18 Range/Units 15:08 15:18 15:18 APTT 21.6 L (22.0-30.0) sec Chloride (98-107) mmol/L BUN 39 H (7-17) mg/dL Creatinine 1.60 H (0.52-1.04) mg/dL Glucose 150 H (74-99) mg/dL POC Glucose (mg/dL) (75-99) mg/dL Troponin I (0.000-0.034) ng/mL Stool Occult Blood Positive H (Negative) 06/10/18 06/10/18 06/10/18 Range/Units 15:18 20:33 20:44 APTT (22.0-30.0) sec Chloride (98-107) mmol/L BUN (7-17) mg/dL Creatinine (0.52-1.04) mg/dL Glucose (74-99) mg/dL POC Glucose (mg/dL) 141 H (75-99) mg/dL Troponin I 0.052 H* 0.069 H* (0.000-0.034) ng/mL Stool Occult Blood (Negative) 06/10/18 06/11/18 06/11/18 Range/Units 23:33 06:48 08:28 APTT (22.0-30.0) sec Chloride 109 H (98-107) mmol/L BUN 33 H (7-17) mg/dL Creatinine 1.50 H (0.52-1.04) mg/dL Glucose (74-99) mg/dL POC Glucose (mg/dL) 143 H 111 H (75-99) mg/dL Troponin I (0.000-0.034) ng/mL Stool Occult Blood (Negative) Assessment and Plan (1) GI bleed Narrative/Plan: 72-year-old female with a history of CAD with recent PCI stent 1 week ago for ACS presents with mixed bloody bowel movements hematochezia melena home medication does include iron supplementation with lower abdominal discomfort 1 day. Elevated BUN suggestive of possible upper GI bleed possible peptic ulcer disease possible bleeding AVM possible small bowel source exacerbated by dual antiplatelet therapy. Hemoglobin is stable at 12.2 presently no active GI bleed rectal exam revealed brown colored stool in rectal vault. Current Visit: Yes Status: Acute Code(s): K92.2 - GASTROINTESTINAL HEMORRHAGE, UNSPECIFIED SNOMED Code(s): 01321512 (2) H/O heart artery stent Current Visit: Yes Status: Acute Code(s): Z95.5 - PRESENCE OF CORONARY ANGIOPLASTY IMPLANT AND GRAFT SNOMED Code(s): 004232386 Plan: 1. Continue present medical therapy. Considering patient had a recent cardiac stent needs to be on dual anti-platelet therapy Dr. Chilel recommends proceeding with EGD exam to rule out peptic ulcer disease or other upper GI pat hology. Continue with GI prophylaxis Protonix 40 mg twice daily. CBC monitoring. 2. Presently no active GI bleed rectal exam revealed brown colored stool. 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 The patient has indicated understanding and acceptance of the risks and procedures discussed. Thank you for this kind referral and the opportunity to participate in the care of your patient. This consultation was discussed with Dr. Chilel. The impression and plan of care have been directed as dictated.
[2018-06-11] MEDS ORDERED: LIDOCAINE 1% INJ 10MG/ML (20 ML MDV) ONE (13:15)
[2018-06-11] MEDS ORDERED: PROPOFOL 10 MG/ML 20 ML VIAL IV ONE (13:15)
[2018-06-11] MEDS ORDERED: IV FLUID CONTINUATION 1,000 ML IV ONE (13:17)
--- NOTE | 2018-06-11 13:52 | P.PCN ---
Date of Procedure: 06/11/18 Description of Procedure: BRIEF HISTORY: 72-year-old female with a past medical history of CAD status post stent in LAD 06/06/2018 secondary to ACS maintained on dual antiplatelet therapy, diabetes, intracranial bleed status post resection, resting tremors presents with bright red blood mixed with melanotic stool 1 yesterday. Patient takes iron at home. Mild lower abdominal cramping no emesis. No history of recent GI bleed. To her memory last colonoscopy 2-3 years ago within normal limits. No recent EGD. Possible remote GI bleed decades ago but does not recover the details. FOBT positive.Admission hemoglobin 13.4 presently 12.2. MCV 87. Platelet 177. INR 0.9. No alcohol NSAIDs. Increased BUN 39. Troponin 0.069. PROCEDURE PERFORMED: Esophagogastroduodenoscopy with biopsy. PREOPERATIVE DIAGNOSIS: Melena. ESTIMATED BLOOD LOSS: Minimal. IV sedation per anesthesia. PROCEDURE: After informed consent was obtained, the patient was brought into the endoscopy unit. IV sedation was administered by Anesthesia under continuous monitoring. Initially the Olympus GIF-190 video endoscope was inserted into the mouth. Esophagus intubated without any difficulty. It was gradually advanced into the stomach and duodenum and carefully examined. The bulb and the second part of the duodenum appeared normal. The scope at this time was withdrawn to the stomach, adequately insufflated with air, and upon careful examination, mucosa of the antrum, body, cardia and the fundus appeared grossly normal. There was moderate inflammation throughout the entire stomach with areas of focal irritation and erythema without active bleeding consistent with moderate gastritis with biopsies of the body taken. The scope was then withdrawn into the esophagus. The GE junction was located at 35 cm from the incisors. The esophagus appeared normal. There were no erosions or ulcerations seen and the patient tolerated the procedure well. IMPRESSION: 1. Moderate gastritis with superficial erosions, biopsies of the body taken. 2. No active bleeding or old blood seen. RECOMMENDATIONS: The findings of this examination were discussed with the patient. Okay for diet. Continue Protonix twice daily. Continue to monitor hemoglobin and transfuse as needed. Okay to resume antiplatelet therapy tomorrow if stable.
--- NOTE | 2018-06-11 13:53 | P.PN ---
Subjective Progress Note Date: 06/11/18 Principal diagnosis: Bright red blood per rectum Patient is a 72-year-old female with a past medical history of atherosclerotic coronary artery disease with recent stent to the LAD one week ago, diabetes mellitus type 2, prior intracranial mass with hemorrhage status p ost resection, dyslipidemia, and multiple other comorbid conditions as listed below who presented to the emergency department with complaints of bright red blood per rectum. In the ER she underwent an extensive evaluation. Her initial vital signs were within normal limits. Initial laboratory analysis was normal with hemoglobin of 13.4. Creatinine is at her baseline of approximately 1.6. Fecal occult blood was positive. She was subsequently placed in observation. Troponin was slightly elevated secondary to recent stent placement. Not consistent with a non-STEMI. Her hemoglobin was monitored overnight remained stable. She did not have any additional dark bowel movement overnight. GI plans for scope today secondary to dual antiplatelet therapy. Patient seen and examined at bedside. She denies any chest pain, shortness of breath, abdominal pain, nausea, or vomiting. She reports no additional dark bowel movements. She has no other complaints currently. Objective - Vital Signs Vital signs: Vital Signs Temp 97.7 F 06/11/18 11:45 Pulse 61 06/11/18 11:45 Resp 16 06/11/18 11:45 BP 132/50 06/11/18 11:45 Pulse Ox 97 06/11/18 11:45 Intake & Output 06/10/18 06/11/18 06/11/18 18:59 06:59 18:59 Intake Total 800 950 Balance 800 950 Weight 87.543 kg Intake: IV 100 Intake, IV Titration 800 800 Amount Sodium Chloride 0.9% 1, 800 800 000 ml @ 100 mls/hr IV . Q10H [facility] Rx#:[id number] Oral 50 Other: Voiding Method Bedpan Bedpan # Voids 1 1 # Bowel Movements 1 - Exam General: non toxic, no distress, appears older than stated age, obese Derm: warm, dry Head: atraumatic, normocephalic, symmetric Eyes: EOMI, no lid lag, anicteric sclera Mouth: no lip lesion, mucus membranes moist Cardiovascular: S1S2 reg, no murmur, positive posterior tibial pulse bilateral, Lungs: CTA bilateral, no rhonchi, no rales , no accessory muscle use Abdominal: soft, nontender to palpation, no guarding, no appreciable organomegaly Ext: no gross muscle atrophy, no edema, no contractures Neuro: CN II-XI grossly intact, no focal neuro deficits Psych: Alert, oriented, appropriate affect Rectal exam: brown stool on finger, no palpable mass/hemorrhoid on exam. - Labs CBC & Chem 7: 06/11/18 08:10 06/11/18 08:28 Labs: Abnormal Lab Results - Last 24 Hours (Table) 06/10/18 06/10/18 06/10/18 Range/Units 15:08 15:18 15:18 APTT 21.6 L (22.0-30.0) sec Chloride (98-107) mmol/L BUN 39 H (7-17) mg/dL Creatinine 1.60 H (0.52-1.04) mg/dL Glucose 150 H (74-99) mg/dL POC Glucose (mg/dL) (75-99) mg/dL Troponin I (0.000-0.034) ng/mL Stool Occult Blood Positive H (Negative) 06/10/18 06/10/18 06/10/18 Range/Units 15:18 20:33 20:44 APTT (22.0-30.0) sec Chloride (98-107) mmol/L BUN (7-17) mg/dL Creatinine (0.52-1.04) mg/dL Glucose (74-99) mg/dL POC Glucose (mg/dL) 141 H (75-99) mg/dL Troponin I 0.052 H* 0.069 H* (0.000-0.034) ng/mL Stool Occult Blood (Negative) 06/10/18 06/11/18 06/11/18 Range/Units 23:33 06:48 08:28 APTT (22.0-30.0) sec Chloride 109 H (98-107) mmol/L BUN 33 H (7-17) mg/dL Creatinine 1.50 H (0.52-1.04) mg/dL Glucose (74-99) mg/dL POC Glucose (mg/dL) 143 H 111 H (75-99) mg/dL Troponin I (0.000-0.034) ng/mL Stool Occult Blood (Negative) Assessment and Plan Assessment: GI bleed -Need to continue with aspirin and Plavix therapy secondary to stent being place d last week to the LAD -IV PPI twice a day -CBC stable -GI recs appreciated- plan is for EGD today. -Nothing by mouth Coronary artery disease with recent PCI to the LAD 06/06/18 -Continue with aspirin, Plavix, beta alexis, and statin therapy Elevated troponin, likely due to stress from GI bleed and recent stent to LAD - troponin flat - on ASA, BB, statin, and plavix - patient denies chest pain. 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 A fib - labetalol, tele, no anticoagulation with GI bleed and hx of hemorrhagic mass HX of hemorrhagic intracranial mass - supportive care - on prophylactic keppra maintain - neurosurgeon and neurologist do not want patient on catering associate anticoagulation. Obesity - BMI 31.2 - outpatient structured weight loss Debility - uses a wheelchair at home - Fall precautions - has home health already. Discussed with: Patient, family, GI Anticipated discharge date: 1-[address]: home A total of 35 minutes was spent on the care of this complex patient more than 50% of the time was spent in counseling and care coordination.
--- NOTE | 2018-06-11 14:18 | P.CRDCN ---
History of Present Illness History of present illness: This is a pleasant [age] female past medical history significant for coronary artery disease status post recent stent placement to the mid and proximal LAD on 06/06/2018 maintained on dual antiplatelet therapy, paroxysmal atrial fibrillation not on long-term anticoagulation secondary to recent CVA and brain surgery, diabetes mellitus, chronic kidney disease, hypertension, sick sinus syndrome status post permanent pacemaker implantation and asthma. She follows in the office with Dr. Hawk. She presented to the hospital after having a bowel movement that she states was streaked with bright red blood. Occult blood was positive in the emergency department. She denies any symptoms of chest discomfort, shortness of breath, dizziness or palpitations. Per the patient this occurred one time at home and has not occurred since that time. She states she's been compliant with her aspirin and Plavix since discharge. Laboratory data reviewed, WBC 6.0, hemoglobin 12.2, platelets 177, sodium 143, potassium 4.1, creatinine 1.5, troponin on admission 0.05 to 10.069, NT proBNP 3660. She has been seen in consultation by GI services and the plan for an EGD this afternoon. At the time of my exam: CONSTITUTIONAL: Denies fever. Denies chills. EYES: Denies blurred vision. Denies vision changes. Denies eye pain. EARS, NOSE, MOUTH & THROAT: Denies headache. Denies sore throat. Denies ear pain. CARDIOVASCULAR: Denies chest pain. Denies shortness of breath. Denies orthopnea. Denies PND. Denies palpitations. RESPIRATORY: Denies cough. GASTROINTESTINAL: Denies abdominal pain. Denies diarrhea. Denies constipation. Denies nausea. Denies vomiting. MUSCULOSKELETAL: Denies myalgias. INTEGUMENTARY: Denies pruitis. Denies rash. NEUROLOGIC: Denies numbness. Denies tingling. Denies weakness. PSYCHIATRIC: Denies anxiety. Denies depression. ENDOCRINE: Denies fatigue. Denies weight change. Denies polydipsia. Denies polyurina. GENITOURINARY: Denies burning, hematuria or urgency with micturation. HEMATOLOGIC: Denies history of anemia. Denies bleeding. Blood pressure 132/50 heart rate 61 afebrile maintaining oxygen saturation on room air GENERAL: This is a 72-year-old female in no apparent distress at the time of my examination. HEENT: Head is atraumatic, normocephalic. Pupils are equal, round. Sclerae anicteric. Conjunctivae are clear. Mucous membranes of the mouth are moist. Neck is supple. There is no jugular venous distention. No carotid bruit is heard. LUNGS: Clear to auscultation no wheezes, rales or rhonchi. No chest wall tenderness is noted on palpation or with deep breathing. HEART: Regular rate and rhythm with systolic ejection murmur at the base, no rubs or gallops. S1 and S2 heard. ABDOMEN: Soft, nontender. Bowel sounds are heard. No organomegaly noted. EXTREMITIES: No evidence of peripheral edema and no calf tenderness noted. VASCULAR: Radial and dorsalis pedis pulses palpated, no evidence of clubbing. NEUROLOGIC: Patient is awake, alert and oriented x3. ASSESSMENT Acute GI bleed with stable hemoglobin Abnormal troponin secondary to recent angioplasty Coronary artery disease s/p recent stent placement maintained on dual antiplatel et therapy Paroxysmal atrial fibrillation History of sick sinus syndrome status post permanent pacemaker implantation Hypertension Dyslipidemia Diabetes mellitus Chronic kidney disease PLAN Decrease aspirin to 81 mg daily and continue Plavix 75 mg daily. This is imperative to continue without break in administration. Proceed with EGD and assess for active GI bleeding. Thank you kindly for this consultation. Nurse Practitioner note has been reviewed, I agree with a documented findings and plan of care. Patient was seen and examined. 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 Brain mass with intercranial hemorrhage/hematoma treated at [facility]. Bronchial asthma, previous cardiac catheterization from January 2014 showing a mild coronary artery disease involving the LAD, uterine cancer 1994, broken left arm in 2006, skin cancer/resected , history of C. diff c olitis, chronic renal failure, chronic atrial fibrillation, CHF History of Any Multi-Drug Resistant Organisms: MRSA Date of last positivie culture/infection: 06/05/18 MDRO Source:: URINE Past Surgical History: Cholecystectomy, Hysterectomy Additional Past Surgical History / Comment(s): eye sx cornea transplant, Evacuation on intracranial hematoma and ressection of hemorrhagic mass, pacemaker 2016 Past Anesthesia/Blood Transfusion Reactions: No Reported Reaction Additional Past Anesthesia/Blood Transfusion Reaction / Comment(s): no previous blood transfusions Past Psychological History: Depression Smoking Status: Never smoker Past Alcohol Use History: None Reported Past Drug Use History: None Reported - Past Family History Mother Family Medical History: Cancer, COPD, Hypertension Father Family Medical History: Cancer, Hypertension Medications and Allergies Home Medications Medication Instructions Recorded Confirmed Type Sertraline [Zoloft] 150 mg PO DAILY 01/04/14 06/10/18 History Dicyclomine [Bentyl] 10 mg PO AC-TID 03/21/17 06/10/18 History Albuterol Inhaler [Ventolin Hfa 1 - 2 puff INHALATION RT-Q6H 03/27/18 06/10/18 History Inhaler] Calcium Carbonate 500 mg PO DAILY 03/27/18 06/10/18 History Ferrous Sulfate [Iron (65 MG 325 mg PO DAILY 03/27/18 06/10/18 History Elemental)] Furosemide [Lasix] 40 mg PO DAILY 03/27/18 06/10/18 History Labetalol [Trandate] 100 mg PO Q12H 03/27/18 06/10/18 History Potassium Chloride [Klor-Con 8] 8 meq PO DAILY 03/27/18 06/10/18 History hydrALAZINE HCL 50 mg PO TID 03/27/18 06/10/18 History Acetaminophen Tab [Tylenol] 500 mg PO Q4-6H PRN 06/04/18 06/10/18 History Gabapentin [Neurontin] 300 mg PO BID 06/04/18 06/10/18 History Insulin Glargine [Lantus] 56 unit SQ HS 06/04/18 06/10/18 History Micro [place] (Unknown) 1 drop BOTH EYES MOFR 06/04/18 06/10/18 History Omeprazole [PriLOSEC] 20 mg PO BID 06/04/18 06/10/18 History amLODIPine [Norvasc] 10 mg PO DAILY 06/04/18 06/10/18 History levETIRAcetam [Keppra] 500 mg PO Q12HR 06/04/18 06/10/18 History prednisoLONE ACETATE [Pred Forte 1 drop LEFT EYE DAILY 06/04/18 06/11/18 History 1%] Atorvastatin [Lipitor] 40 mg PO HS #90 tab 06/07/18 06/10/18 Rx Clopidogrel [Plavix] 75 mg PO DAILY #90 tab 06/07/18 06/10/18 Rx Nitroglycerin Sl Tabs [Nitrostat] 0.4 mg SUBLINGUAL Q5M PRN #14 tab 06/07/18 06/10/18 Rx Doxycycline [Vibramycin] 100 mg PO BID 7 Days #14 capsule 06/08/18 06/10/18 Rx Aspirin 81 mg PO DAILY chew 06/11/18 Rx Allergies Allergy/AdvReac Type Severity Reaction Status Date / Time Latex, Natural Rubber Allergy Itching Verified 06/10/18 15:49 sulfamethoxazole Allergy Rash/Hives Verified 06/10/18 15:49 [From Bactrim] trimethoprim [From Bactrim] Allergy Rash/Hives Verified 06/10/18 15:49 Physical Exam Vitals: Vital Signs Temp Pulse Pulse Resp BP BP Pulse Ox 06/11/18 11:45 97.7 F 61 16 132/50 97 06/11/18 11:05 70 06/11/18 10:54 68 06/11/18 07:00 67 06/11/18 06:50 66 06/11/18 05:59 97.4 F L 60 20 143/67 94 L 06/10/18 21:38 64 06/10/18 21:22 60 06/10/18 21:00 97.8 F 58 L 18 152/61 95 06/10/18 17:51 97.8 F 55 L 16 143/56 92 L 06/10/18 17:13 98.0 F 62 18 170/63 94 L 06/10/18 16:00 60 18 153/64 93 L 06/10/18 14:58 97.8 F 61 18 144/55 93 L Intake and Output 06/10/18 06/11/18 06/11/18 22:59 06:59 14:59 Intake Total 800 850 Balance 800 850 Intake: Intake, IV Titration 800 800 Amount Sodium Chloride 0.9% 1, 800 800 000 ml @ 100 mls/hr IV . Q10H [facility] Rx#:[id number] Oral 50 Other: Voiding Method Bedpan Bedpan # Voids 1 1 # Bowel Movements 1 Results 06/11/18 08:10 06/11/18 08:28 Cardiac Enzymes 06/10/18 06/10/18 06/10/18 Range/Units 15:18 15:18 20:44 AST 20 (14-36) U/L Troponin I 0.052 H* 0.069 H* (0.000-0.034) ng/mL Coagulation 06/10/18 Range/Units 15:18 PT 9.8 (9.0-12.0) sec APTT 21.6 L (22.0-30.0) sec CBC 06/10/18 06/10/18 06/11/18 Range/Units 15:18 21:58 08:10 WBC 9.1 8.1 6.0 (3.8-10.6) k/uL RBC 4.76 4.56 4.14 (3.80-5.40) m/uL Hgb 13.4 12.7 12.2 (11.4-16.0) gm/dL Hct 40.8 38.5 36.1 (34.0-46.0) % Plt Count 206 185 177 (150-450) k/uL Comprehensive Metabolic Panel 06/10/18 06/11/18 Range/Units 15:18 08:28 Sodium 140 143 (137-145) mmol/L Potassium 4.8 4.1 (3.5-5.1) mmol/L Chloride 104 109 H (98-107) mmol/L Carbon Dioxide 28 29 (22-30) mmol/L BUN 39 H 33 H (7-17) mg/dL Creatinine 1.60 H 1.50 H (0.52-1.04) mg/dL Glucose 150 H 85 (74-99) mg/dL Calcium 9.7 9.0 (8.4-10.2) mg/dL AST 20 (14-36) U/L ALT 24 (9-52) U/L Alkaline Phosphatase 97 (38-126) U/L Total Protein 6.8 (6.3-8.2) g/dL Albumin 4.4 (3.5-5.0) g/dL Current Medications Generic Name Dose Route Start Last Admin Trade Name Freq PRN Reason Stop Dose Admin Acetaminophen 650 mg 06/10/18 15:59 Tylenol Tab PO Q6HR PRN Mild Pain or Fever > 100.5 Albuterol Sulfate 2.5 mg 06/10/18 20:00 06/11/18 10:53 Ventolin Nebulized INHALATION 2.5 mg RT-Q6H [facility] Administration Amlodipine Besylate 10 mg 06/11/18 09:00 06/11/18 09:05 Norvasc PO 10 mg DAILY [facility] Administration Aspirin 81 mg 06/11/18 10:15 06/11/18 12:07 Aspirin PO 81 mg DAILY [facility] Administration Atorvastatin Calcium 40 mg 06/10/18 21:00 06/10/18 21:41 Lipitor PO 40 mg HS [facility] Administration Calcium Carbonate/Glycine 500 mg 06/11/18 12:00 06/11/18 12:08 Tums PO 500 mg DAILY@1200 [facility] Administration Clopidogrel Bisulfate 75 mg 06/11/18 09:00 06/11/18 12:07 Plavix PO 75 mg DAILY [facility] Administration Dicyclomine HCl 10 mg 06/10/18 17:30 06/11/18 12:08 Bentyl PO 10 mg AC-TID [facility] Administration Doxycycline Monohydrate 100 mg 06/10/18 21:00 06/11/18 09:04 Vibramycin PO 06/14/18 21:01 100 mg BID [facility] Administration Ferrous Sulfate 325 mg 06/11/18 12:00 06/11/18 09:06 Feosol PO 325 mg DAILY@1200 [facility] Administration Furosemide 40 mg 06/11/18 09:00 06/11/18 09:05 Lasix PO 40 mg DAILY [facility] Administration Gabapentin 300 mg 06/10/18 21:00 06/11/18 09:05 Neurontin PO 300 mg BID [facility] Administration Hydralazine HCl 50 mg 06/10/18 22:00 06/11/18 09:05 Apresoline PO 50 mg TID [facility] Administration Sodium Chloride 1,000 mls @ 100 mls/hr 06/10/18 16:15 06/11/18 06:01 Saline 0.9% IV 100 mls/hr .Q10H [facility] Administration Insulin Aspart 0 unit 06/10/18 18:00 06/11/18 11:34 Novolog SQ Not Given Q6HR [facility] Protocol Insulin Detemir 28 unit 06/10/18 21:00 06/10/18 22:03 Levemir SQ 28 unit HS [facility] Administration Labetalol HCl 100 mg 06/10/18 18:00 06/11/18 06:00 Trandate PO 100 mg Q12H [facility] Administration Levetiracetam 500 mg 06/10/18 21:00 06/11/18 09:05 Keppra PO 500 mg Q12HR [facility] Administration Naloxone HCl 0.2 mg 06/10/18 15:59 Narcan IV Q2M PRN Opioid Reversal Micro [place] ( 1 drop 06/13/18 09:00 Unknown) 1 Drop BOTH EYES MoFr@0900 [facility] Ondansetron HCl 4 mg 06/10/18 16:59 Zofran IVP Q8HR PRN Nausea And Vomiting Pantoprazole Sodium 40 mg 06/10/18 21:00 06/11/18 09:02 Protonix IVP 40 mg BID [facility] Administration Potassium Chloride 10 meq 06/11/18 09:00 06/11/18 09:05 K-Dur 10 PO 10 meq DAILY [facility] Administration Prednisolone Acetate 1 drops 06/11/18 09:30 06/11/18 09:18 Pred Forte 1% LEFT EYE Not Given DAILY [facility] Sertraline HCl 150 mg 06/11/18 09:00 06/11/18 09:06 Zoloft PO 150 mg DAILY [facility] Administration Intake and Output 06/10/18 06/11/18 06/11/18 22:59 06:59 14:59 Intake Total 800 850 Balance 800 850 Intake: Intake, IV Titration 800 800 Amount Sodium Chloride 0.9% 1, 800 800 000 ml @ 100 mls/hr IV . Q10H [facility] Rx#:[id number] Oral 50 Other: Voiding Method Bedpan Bedpan # Voids 1 1 # Bowel Movements 1 06/11/18 08:10 06/11/18 08:28
[2018-06-11] MEDS: PANTOPRAZOLE 40 MG TABLET PO SCH (16:41)
[2018-06-11 17:07] LABS: Glucose,Whole Blood 78 mg/dL (75-99)
[2018-06-11] MEDS: ATORVASTATIN 40 MG TAB PO SCH (21:19)
[2018-06-11] MEDS: INSULIN DETEMIR (LEVEMIR) 100 UNIT/ML SYR SQ SCH (21:19)
[2018-06-11 21:24] LABS: Glucose,Whole Blood 134 mg/dL (75-99)
[2018-06-11] MEDS: ACETAMINOPHEN TAB 325 MG TAB PO PRN (22:47)
[2018-06-12 00:04] LABS: Glucose,Whole Blood 75 mg/dL (75-99)
[2018-06-12] MEDS: INSULIN ASPART (NovoLOG) 100 UNIT/ML VIAL SQ SCH ×4 (00:05→17:18)
[2018-06-12] MEDS: ALBUTEROL NEBULIZED 2.5 MG/3 ML INHALATION SCH ×4 (02:05→19:31)
[2018-06-12 05:39] LABS: Glucose,Whole Blood 95 mg/dL (75-99)
[2018-06-12] MEDS: LABETALOL 100 MG TAB PO SCH ×2 (05:39→17:17)
[2018-06-12] MEDS: SODIUM CHLORIDE 0.9% 1,000 ML IV SCH ×3 (05:40→21:27)
[2018-06-12] MEDS: DICYCLOMINE 10 MG CAP PO SCH ×3 (07:38→17:17)
[2018-06-12] MEDS: PANTOPRAZOLE 40 MG TABLET PO SCH ×2 (07:38→17:17)
[2018-06-12 07:51] LABS: HCT 36.7 % (34.0-46.0); HGB 11.3 gm/dL (11.4-16.0); MCH 27.9 pg (25.0-35.0); MCHC 30.9 g/dL (31.0-37.0); MCV 90.2 fL (80.0-100.0); Mean Platelet Volume 6.9; Platelet Count 169 k/uL (150-450); RBC 4.06 m/uL (3.80-5.40); RDW 13.6 % (11.5-15.5); WBC 5.9 k/uL (3.8-10.6)
[2018-06-12 08:02] LABS: Calcium 8.9 mg/dL (8.4-10.2); Potassium 3.9 mmol/L (3.5-5.1)
[2018-06-12] MEDS: amLODIPine 10 MG TAB PO SCH (09:33)
[2018-06-12] MEDS: levETIRAcetam 500 MG TAB PO SCH ×2 (09:33→21:21)
[2018-06-12] MEDS: GABAPENTIN 300 MG CAP PO SCH ×2 (09:33→21:21)
[2018-06-12] MEDS: FUROSEMIDE 40 MG TAB PO SCH (09:34)
[2018-06-12] MEDS: hydrALAZINE HCL 50 MG TAB PO SCH ×3 (09:34→21:21)
[2018-06-12] MEDS: DOXYCYCLINE 100 MG CAP PO SCH ×2 (09:34→21:21)
[2018-06-12] MEDS: ASPIRIN 81 MG PO SCH (09:34)
[2018-06-12] MEDS: CLOPIDOGREL 75 MG TAB PO SCH (09:34)
[2018-06-12] MEDS: SERTRALINE 50 MG TAB PO SCH (09:35)
[2018-06-12] MEDS: prednisoLONE ACETATE 1% OPHTH DROPS 5 ML BTL LEFT EYE SCH (09:37)
[2018-06-12] MEDS: ACETAMINOPHEN TAB 325 MG TAB PO PRN (10:17)
[2018-06-12] MEDS: POTASSIUM CHLORIDE ER 10 MEQ TAB.ER.PRT PO SCH (10:26)
--- NOTE | 2018-06-12 10:31 | P.PN ---
Subjective Progress Note Date: 06/12/18 Principal diagnosis: Abdominal pain Patient is a 72-year-old female with a past medical history of atherosclerotic coronary artery disease with recent stent to the LAD one week ago, diabetes mellitus type 2, prior intracranial mass with hemorrhage status post resection, dyslipidemia, and multiple other comorbid conditions as listed below who presented to the emergency department with complaints of bright red blood per rectum. In the ER she underwent an extensive evaluation. Her initial vital signs were within normal limits. Initial laboratory analysis was normal with hemoglobin of 13.4. Creatinine is at her baseline of approximately 1.6. Fecal occult blood was positive. She was subsequently placed in observation. Troponin was slightly elevated secondary to recent stent placement. Not consistent with a non-STEMI. Her hemoglobin was monitored overnight remained stable. She did not have any additional dark bowel movement overnight. GI preformed EGD on 06/11 which showed gastritis but no active signs of bleeding. Patient seen and examined at bedside. Complains of abd pain starting today. It is crampy in nature and across her lowed abdomen. Its associated with nausea but no vomiting. She also complains of pain in her left leg from hip to thing both on inside and outside. worse with movement and dorsiflexion. THis is different than her chronic pain. Just overall not feeling right. Does not want anything more than tylenol for pain as they make her loopy. Objective - Vital Signs Vital signs: Vital Signs Temp 97.6 F 06/12/18 09:23 Pulse 100 06/12/18 09:23 Resp 20 06/12/18 09:23 BP 150/74 06/12/18 09:23 Pulse Ox 99 06/12/18 05:06 Intake & Output 06/11/18 06/12/18 06/12/18 18:59 06:59 18:59 Intake Total 950 830 Balance 950 830 Intake: IV 100 Intake, IV Titration 800 350 Amount IV Fluid Continuation 1, 350 000 ml @ 0 mls/hr IV .STK -[facility] Rx#:[id number] Sodium Chloride 0.9% 1, 800 000 ml @ 100 mls/hr IV . Q10H [facility] Rx#:[id number] Oral 50 480 Other: Voiding Method Bedpan Bedpan # Voids 1 2 1 - Exam General: non toxic, mild distress secondary to pain, appears older than stated age, obese Derm: warm, dry Head: atraumatic, normocephalic, symmetric Eyes: EOMI, no lid lag, anicteric sclera Mouth: no lip lesion, mucus membranes moist Cardiovascular: S1S2 reg, no murmur, positive posterior tibial pulse bilateral, Lungs: CTA bilateral, no rhonchi, no rales , no accessory muscle use Abdominal: soft, + tender to palpation RLQ and LLQ, no guarding, no appreciable organomegaly Ext: no gross muscle atrophy,1+ edema left LE, + Homans on left, no contractures Neuro: CN II-XI grossly intact, no focal neuro deficits Psych: Alert, oriented, upset and crying - Labs CBC & Chem 7: 06/12/18 06:48 06/12/18 06:48 Labs: Abnormal Lab Results - Last 24 Hours (Table) 06/11/18 06/12/18 06/12/18 Range/Units 21:15 06:48 06:48 Hgb 11.3 L (11.4-16.0) gm/dL MCHC 30.9 L (31.0-37.0) g/dL Chloride 108 H (98-107) mmol/L BUN 23 H (7-17) mg/dL Creatinine 1.47 H (0.52-1.04) mg/dL POC Glucose (mg/dL) 134 H (75-99) mg/dL Assessment and Plan Assessment: Abdominal pain - CT abd/pelvis with oral contrast, no IV contrast due to CKD - tylenol for pain Left LE pain - check venous doppler - has chronic pain but this is different GI bleed -Need to continue with aspirin and Plavix therapy secondary to stent being placed last week to the LAD - PPI twice a day -CBC stable slgihtly down trending -GI recs appreciated- EGD shows gastritis -Full liquid diet Acute blood loss anemia - mild - repeat CBC in 6 hours and then in AM if stable. Coronary artery disease with recent PCI to the LAD 06/06/18 -Continue with aspirin, Plavix, beta alexis, and statin therapy Elevated troponin, likely due to recent stent to LAD - troponin flat - on ASA, BB, statin, and plavix - patient denies chest pain. 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 A fib - labetalol, tele, no anticoagulation with GI bleed and hx of hemorrhagic mass HX of hemorrhagic intracranial mass - supportive care - on prophylactic keppra maintain - neurosurgeon and neurologist do not want patient on penitentiary anticoagulation. Obesity - BMI 31.2 - outpatient structured weight loss Debility - uses a wheelchair at home - Fall precautions - has home health already. Discussed with: Patient, GI, nursing Anticipated discharge date: in AM if CT and doppler negative Anticipated discharge place: home A total of 35 minutes was spent on the care of this complex patient more than 50% of the time was spent in counseling and care coordination.
[2018-06-12] MEDS: IOPAMIDOL-300 CONTRAST 30 ML VIAL (ORAL USE) PO PRN ×2 (11:05→12:09)
[2018-06-12 11:10] LABS: Glucose,Whole Blood 155 mg/dL (75-99)
--- NOTE | 2018-06-12 12:08 | P.PN ---
Subjective Progress Note Date: 06/12/18 Principal diagnosis: GI bleed 72-year-old female presents with next bloody bowel movements red black yesterday status post EGD with findings of moderate gastritis superficial erosions no active bleeding. Today patient reports increased abdominal pain extending down to her left leg. CT abdomen ordered. Further episodes of GI bleeding. Hemoglobin 11.3. White count 5.9. BUN improved 23 creatinine 1.4. Objective - Vital Signs Vital signs: Vital Signs Temp 97.6 F 06/12/18 09:23 Pulse 100 06/12/18 09:23 Resp 20 06/12/18 09:23 BP 150/74 06/12/18 09:23 Pulse Ox 99 06/12/18 05:06 Intake & Output 06/11/18 06/12/18 06/12/18 18:59 06:59 18:59 Intake Total 950 830 Balance 950 830 Intake: IV 100 Intake, IV Titration 800 350 Amount IV Fluid Continuation 1, 350 000 ml @ 0 mls/hr IV .STK -[facility] Rx#:[id number] Sodium Chloride 0.9% 1, 800 000 ml @ 100 mls/hr IV . Q10H [facility] Rx#:[id number] Oral 50 480 Other: Voiding Method Bedpan Bedpan Bedpan # Voids 1 2 1 - Exam General appearance: The patient is alert, oriented, in no acute distress. HET: Head is normocephalic and atraumatic. Pupils are equal and reactive. Oropharynx is clear without lesions. Neck: Supple without lymphadenopathy. Trachea midline. Heart: S1 S2. Regular rate and rhythm. Lungs: No crackles or wheezes are heard. Abdomen: Soft, mild tenderness to the lower abdomen, nondistended with bowel sounds. No peritoneal signs. No palpable organomegaly or masses. Extremities: Normal skin color and turgor. No cyanosis, rash, ulceration, clubbing, or edema. Radial and pedal pulses are 2/4 bilaterally. Neurological: No focal deficits. Strength and sensation are grossly intact. - Labs CBC & Chem 7: 06/13/18 08:34 06/13/18 08:34 Labs: Abnormal Lab Results - Last 24 Hours (Table) 06/11/18 06/12/18 06/12/18 Range/Units 21:15 06:48 06:48 Hgb 11.3 L (11.4-16.0) gm/dL MCHC 30.9 L (31.0-37.0) g/dL Chloride 108 H (98-107) mmol/L BUN 23 H (7-17) mg/dL Creatinine 1.47 H (0.52-1.04) mg/dL POC Glucose (mg/dL) 134 H (75-99) mg/dL 06/12/18 Range/Units 11:03 Hgb (11.4-16.0) gm/dL MCHC (31.0-37.0) g/dL Chloride (98-107) mmol/L BUN (7-17) mg/dL Creatinine (0.52-1.04) mg/dL POC Glucose (mg/dL) 155 H (75-99) mg/dL Assessment and Plan (1) GI bleed Narrative/Plan: Status post EGD superficial gastric erosions biopsies pending. Increased abdominal pain extending down to left leg CT abdomen and pelvis ordered. No active GI bleeding. Current Visit: Yes Status: Acute Code(s): K92.2 - GASTROINTESTINAL HEMORRHAGE, UNSPECIFIED SNOMED Code(s): 25998537 (2) H/O heart artery stent Current Visit: Yes Status: Acute Code(s): Z95.5 - PRESENCE OF CORONARY ANGIOPLASTY IMPLANT AND GRAFT SNOMED Code(s): 110103690 Plan: 1. CBC monitoring. CT abdomen and pelvis ordered. We'll continue to follow. Continue GI prophylaxis. Assessment and plan a care discussed with Dr. Chilel
[2018-06-12] MEDS: CALCIUM CARBONATE 500 MG CHEWABLE PO SCH (12:29)
[2018-06-12] MEDS: FERROUS SULFATE 325 MG TAB PO SCH (12:29)
--- NOTE | 2018-06-12 13:35 | CT ---
EXAMINATION TYPE: CT abdomen pelvis wo con DATE OF EXAM: 06/12/2018 COMPARISON: None HISTORY: Pelvic pain with diarrhea CT DLP: 1019.7 mGycm Automated exposure control for dose reduction was used. TECHNIQUE: Helical acquisition of images from the lung bases through the pelvis. Patient received or al contrast, no intravenous contrast. FINDINGS: Lack of intravenous contrast could compromise sensitivity. There is an umbilical hernia con tains fat. Intracardiac pacemaker leads are present. LUNG BASES: No significant abnormality is appreciated. AORTA: Dense atherosclerotic calcifications are present within the mesenteric vessels, aortoiliac di stribution LIVER/GB: No significant abnormality is appreciated within the liver, gallbladder is absent surgicall y. PANCREAS: No significant abnormality is seen. SPLEEN: No significant abnormality is seen. ADRENALS: No significant abnormality is seen. KIDNEYS: No significant abnormality is seen. REPRODUCTIVE ORGANS: Not seen URINARY BLADDER: Contracted. BOWEL: No significant abnormality is seen. Contrast has not coursed into much of the colon FREE AIR: No Free Air is visible. ASCITES: None visible. PELVIC ADENOPATHY: None visualized. RETROPERITONEAL ADENOPATHY: No Retroperitoneal Adenopathy visible. OSSEOUS STRUCTURES: Compression deformities of the superior endplate L3, inferior endplate of L1 is present, hemangioma suspected within the T12 vertebral body, there is multilevel spondylosis, facet a rthropathy. IMPRESSION: POSTOP CHANGES. NONSPECIFIC FINDINGS DESCRIBED ABOVE. NONCONTRAST EXAM.
--- NOTE | 2018-06-12 13:37 | US ---
EXAMINATION TYPE: US venous doppler duplex LE LT DATE OF EXAM: 06/12/2018 1:08 PM COMPARISON: NONE CLINICAL HISTORY: pain, edema. Left leg pain, patient on blood thinners SIDE PERFORMED: Left TECHNIQUE: The lower extremity deep venous system is examined utilizing real time linear array sonog ladonna with graded compression, doppler sonography and color-flow sonography. VESSELS IMAGED: External Iliac Vein (EIV) Common Femoral Vein Deep Femoral Vein Greater Saphenous Vein * Femoral Vein Popliteal Vein Small Saphenous Vein * Proximal Calf Veins (* superficial vessels) Difficult and limited study, unable to obtain distal femoral images due to patient's leg pain Left Leg: Visualized portions appear negative for DVT There is normal flow, compressibility, vascular waveforms. IMPRESSION: No evident deep venous thrombosis, technologist reports a somewhat limited exam, follow-u p as indicated.
[2018-06-12 17:02] LABS: Glucose,Whole Blood 121 mg/dL (75-99)
[2018-06-12 19:54] LABS: Glucose,Whole Blood 202 mg/dL (75-99)
[2018-06-12] MEDS: INSULIN DETEMIR (LEVEMIR) 100 UNIT/ML SYR SQ SCH (21:21)
[2018-06-12] MEDS: ATORVASTATIN 40 MG TAB PO SCH (21:21)
[2018-06-13 00:38] LABS: Glucose,Whole Blood 160 mg/dL (75-99)
[2018-06-13] MEDS: INSULIN ASPART (NovoLOG) 100 UNIT/ML VIAL SQ SCH ×3 (00:39→12:37)
[2018-06-13] MEDS: ALBUTEROL NEBULIZED 2.5 MG/3 ML INHALATION SCH ×3 (01:18→10:39)
[2018-06-13 06:03] LABS: Glucose,Whole Blood 108 mg/dL (75-99)
[2018-06-13] MEDS: LABETALOL 100 MG TAB PO SCH (06:19)
[2018-06-13 07:03] LABS: Glucose,Whole Blood 109 mg/dL (75-99)
[2018-06-13] MEDS: DICYCLOMINE 10 MG CAP PO SCH ×2 (07:14→12:37)
[2018-06-13] MEDS: PANTOPRAZOLE 40 MG TABLET PO SCH (07:14)
--- NOTE | 2018-06-13 08:59 | P.PN ---
Subjective Progress Note Date: 06/13/18 Principal diagnosis: GI bleed Passing nonbloody bowel movements. Abdominal leg pain improved. CT no acute changes. Ultrasound lower extremity no evidence of DVT exam was limited. Tolerating diet. Afebrile. Objective - Vital Signs Vital signs: Vital Signs Temp 97.6 F 06/13/18 05:00 Pulse 60 06/13/18 05:00 Resp 18 06/13/18 05:00 BP 147/66 06/13/18 05:00 Pulse Ox 93 L 06/13/18 05:00 Intake & Output 06/12/18 06/13/18 06/13/18 18:59 06:59 18:59 Other: Voiding Method Toilet Bedpan Toilet # Voids 1 1 1 # Bowel Movements 1 0 - Exam General appearance: The patient is alert, oriented, in no acute distress. HET: Head is normocephalic and atraumatic. Pupils are equal and reactive. Oropharynx is clear without lesions. Neck: Supple without lymphadenopathy. Trachea midline. Heart: S1 S2. Regular rate and rhythm. Lungs: No crackles or wheezes are heard. Abdomen: Soft, nontender, nondistended with bowel sounds. No peritoneal signs. No palpable organomegaly or masses. Extremities: Normal skin color and turgor. No cyanosis, rash, ulceration, clubbing, or edema. Radial and pedal pulses are 2/4 bilaterally. Neurological: No focal deficits. Strength and sensation are grossly intact. - Labs CBC & Chem 7: 06/12/18 06:48 06/12/18 06:48 Labs: Abnormal Lab Results - Last 24 Hours (Table) 06/12/18 06/12/18 06/12/18 Range/Units 11:03 16:58 19:52 POC Glucose (mg/dL) 155 H 121 H 202 H (75-99) mg/dL 06/13/18 06/13/18 06/13/18 Range/Units 00:36 06:00 07:01 POC Glucose (mg/dL) 160 H 108 H 109 H (75-99) mg/dL Assessment and Plan (1) GI bleed Narrative/Plan: Status post EGD superficial gastric erosions biopsies pending. Current Visit: Yes Status: Acute Code(s): K92.2 - GASTROINTESTINAL HEMORRHAGE, UNSPECIFIED SNOMED Code(s): 62171716 (2) H/O heart artery stent Current Visit: Yes Status: Acute Code(s): Z95.5 - PRESENCE OF CORONARY ANG IOPLASTY IMPLANT AND GRAFT SNOMED Code(s): 919180153 Plan: 1. Continue with Protonix 40 mg daily on discharge. Resume previous medications prior to discharge. Diabetic diet as tolerated. Follow-up in office in 3-4 weeks. Discharge per medicine. We'll follow as needed. Assessment and plan a care discussed with Dr. Chilel
[2018-06-13] MEDS ORDERED: [UNRECOGNIZED DRUG - REMARK] BOTH EYES SCH (09:00)
[2018-06-13] MEDS: hydrALAZINE HCL 50 MG TAB PO SCH ×2 (09:14→16:44)
[2018-06-13] MEDS: DOXYCYCLINE 100 MG CAP PO SCH (09:14)
[2018-06-13] MEDS: SERTRALINE 50 MG TAB PO SCH (09:14)
[2018-06-13] MEDS: FUROSEMIDE 40 MG TAB PO SCH (09:14)
[2018-06-13] MEDS: CLOPIDOGREL 75 MG TAB PO SCH (09:14)
[2018-06-13] MEDS: amLODIPine 10 MG TAB PO SCH (09:15)
[2018-06-13] MEDS: GABAPENTIN 300 MG CAP PO SCH (09:15)
[2018-06-13] MEDS: prednisoLONE ACETATE 1% OPHTH DROPS 5 ML BTL LEFT EYE SCH (09:16)
[2018-06-13] MEDS: ASPIRIN 81 MG PO SCH (09:16)
[2018-06-13 09:20] LABS: HCT 37.3 % (34.0-46.0); HGB 11.6 gm/dL (11.4-16.0); MCH 27.7 pg (25.0-35.0); MCV 89.2 fL (80.0-100.0); Platelet Count 200 k/uL (150-450); RBC 4.18 m/uL (3.80-5.40); RDW 13.6 % (11.5-15.5); WBC 7.1 k/uL (3.8-10.6)
[2018-06-13 09:44] LABS: Potassium 4.2 mmol/L (3.5-5.1)
[2018-06-13] MEDS: POTASSIUM CHLORIDE ER 10 MEQ TAB.ER.PRT PO SCH (09:58)
[2018-06-13] MEDS: levETIRAcetam 500 MG TAB PO SCH (09:58)
--- NOTE | 2018-06-13 10:39 | P.DS ---
Providers Date of admission: 06/12/18 12:51 Expected date of discharge: 06/13/18 Attending physician: Milady Mosley DO Consults: 06/10/18 17:00 Consult Physician Routine Consulting Provider: Jaiden Hawk Consult Reason/Comments: recent stent, GI bleed Do you want consulting provider notified?: Yes Primary care physician: Lisa Maulik [facility] Course: final diagnosis upon discharge Gastritis with gastric erosions, no active bleeding secondary diagnosis DM2 recent MRSA UTI debility Hyperlipidemia CAD s/p stent LAD CKD III afib intracranial mass with hemorrhage s/p resection Consultation GI hospital course Patient is a 72-year-old female with a past medical history of atherosclerotic coronary artery disease with recent stent to the LAD one week ago, diabetes mellitus type 2, prior intracranial mass with hemorrhage status post resection, dyslipidemia, and multiple who presented to the emergency department with complaints of bright red blood per rectum. In the ER she underwent an extensive evaluation. Her initial vital signs were within normal limits. Initial laboratory analysis was normal with hemoglobin of 13.4. Creatinine is at her baseline of approximately 1.6. Fecal occult blood was positive. She was subsequently placed in observation. Troponin was slightly elevated secondary to recent stent placement. Not consistent with a non-STEMI. Her hemoglobin was monitored overnight remained stable. She did not have any additional dark bowel movement overnight. GI preformed EGD on 06/11 which showed gastritis but no active signs of bleeding. then patient complained of left leg pain for which doppler US was negative for acute DVT. on day of discharge, patient was seen and examined, GI cleared the patient for discharge and to continue on PPI. labs shows stable and improving hemoglobin, stable renal function . abd CT was unremarkable for any acute process. No further episodes of bloody bowel movement. Afebrile tolerating by mouth intake. Denies any abdominal pain chest pain or trouble breathing Constitutional: vital signs stable, Not in acute distress, pleasant, conversant Lungs: Clear to auscultation bilaterally, clear to percussion, normal respiratory effort no use of accessory muscles Cardiovascular: Regular rate and rhythm, no murmurs, no gallops, no rubs, trace leg edema bilaterally Gastrointestinal: Soft, no tenderness to palpation, no palpable hepatosplenomegally, bowel sounds positive, no abdominal wall hernias Extremities: No digital cyanosis or clubbing, peripheral pulses palpable and equal over bilateral radial arteries and dorsalis pedis artery, no calf muscle tenderness Psych: Alert, oriented to place, person and time, appropriate affect, intact judgment Discharge home with home care today, stable clinical condition. Continue with PPI as now patient GI Ok to continue dual antiplatelets Patient to finish course of antibiotics that was prescribed earlier for MRSA UTI Patient has home care set up with visiting nurse and therapy at home. Follow-up with PCP Follow-up with GI service in 3-4 weeks follow up on biopsy results 35 minutes were spent discharging this patient, and more than 50% of the time was spent in counseling the patient and family and in coordinating care. Procedures: EGD Patient Condition at Discharge: Fair Plan - Discharge Summary New Discharge Prescriptions: New Aspirin 81 mg PO DAILY chew Continue Sertraline [Zoloft] 150 mg PO DAILY Dicyclomine [Bentyl] 10 mg PO AC-TID Potassium Chloride [Klor-Con 8] 8 meq PO DAILY hydrALAZINE HCL 50 mg PO TID Labetalol [Trandate] 100 mg PO Q12H Furosemide [Lasix] 40 mg PO DAILY Calcium Carbonate 500 mg PO DAILY Ferrous Sulfate [Iron (65 MG Elemental)] 325 mg PO DAILY Albuterol Inhaler [Ventolin Hfa Inhaler] 1 - 2 puff INHALATION RT-Q6H levETIRAcetam [Keppra] 500 mg PO Q12HR amLODIPine [Norvasc] 10 mg PO DAILY Gabapentin [Neurontin] 300 mg PO BID Acetaminophen Tab [Tylenol] 500 mg PO Q4-6H PRN PRN Reason: Pain Insulin Glargine [Lantus] 56 unit SQ HS prednisoLONE ACETATE [Pred Forte 1%] 1 drop LEFT EYE DAILY [place] (Unknown) 1 drop BOTH EYES MOFR Atorvastatin [Lipitor] 40 mg PO HS #90 tab Nitroglycerin Sl Tabs [Nitrostat] 0.4 mg SUBLINGUAL Q5M PRN #14 tab PRN Reason: Chest Pain Clopidogrel [Plavix] 75 mg PO DAILY #90 tab Doxycycline [Vibramycin] 100 mg PO BID 7 Days #14 capsule Omeprazole [PriLOSEC] 20 mg PO BID #60 capsule.dr Discontinued Aspirin 325 mg PO DAILY #90 tab Discharge Medication List Sertraline [Zoloft] 150 mg PO DAILY 01/04/14 [History] Dicyclomine [Bentyl] 10 mg PO AC-TID 03/21/17 [History] Albuterol Inhaler [Ventolin Hfa Inhaler] 1 - 2 puff INHALATION RT-Q6H 03/27/18 [History] Calcium Carbonate 500 mg PO DAILY 03/27/18 [History] Ferrous Sulfate [Iron (65 MG Elemental)] 325 mg PO DAILY 03/27/18 [History] Furosemide [Lasix] 40 mg PO DAILY 03/27/18 [History] Labetalol [Trandate] 100 mg PO Q12H 03/27/18 [History] Potassium Chloride [Klor-Con 8] 8 meq PO DAILY 03/27/18 [History] hydrALAZINE HCL 50 mg PO TID 03/27/18 [History] Acetaminophen Tab [Tylenol] 500 mg PO Q4-6H PRN 06/04/18 [History] Gabapentin [Neurontin] 300 mg PO BID 06/04/18 [History] Insulin Glargine [Lantus] 56 unit SQ HS 06/04/18 [History] [place] (Unknown) 1 drop BOTH EYES MOFR 06/04/18 [History] amLODIPine [Norvasc] 10 mg PO DAILY 06/04/18 [History] levETIRAcetam [Keppra] 500 mg PO Q12HR 06/04/18 [History] prednisoLONE ACETATE [Pred Forte 1%] 1 drop LEFT EYE DAILY 06/04/18 [History] Atorvastatin [Lipitor] 40 mg PO HS #90 tab 06/07/18 [Rx] Clopidogrel [Plavix] 75 mg PO DAILY #90 tab 06/07/18 [Rx] Nitroglycerin Sl Tabs [Nitrostat] 0.4 mg SUBLINGUAL Q5M PRN #14 tab 06/07/18 [Rx] Doxycycline [Vibramycin] 100 mg PO BID 7 Days #14 capsule 06/08/18 [Rx] Aspirin 81 mg PO DAILY chew 06/11/18 [Rx] Omeprazole [PriLOSEC] 20 mg PO BID #60 capsule. 06/13/18 [Rx] Follow up Appointment(s)/Referral(s): Lisa Willingham MD [Primary Care Provider] - 1-2 days Jaiden Hawk MD [STAFF PHYSICIAN] - 2 Weeks [facility], [NON-STAFF] - 1 Week Phoenix Chilel MD [STAFF PHYSICIAN] - 3 Weeks Patient Instructions/Handouts: Gastritis (ED) Activity/Diet/Wound Care/Special Instructions: diet as tolerated, fall precautions Care Plan Goals (MU): follow up with GI in 3-4 weeks in the office for results of the biopsy done from your stomach finish your course of Antibiotics that was given to you on prior encounter for Urinary tract infection Discharge Disposition: HOME WITH HOME HEALTH SERVICES
[2018-06-13 11:17] LABS: Glucose,Whole Blood 175 mg/dL (75-99)
[2018-06-13] MEDS: FERROUS SULFATE 325 MG TAB PO SCH (12:37)
[2018-06-13] MEDS: CALCIUM CARBONATE 500 MG CHEWABLE PO SCH (12:37)
[2018-06-13] MEDS: SODIUM CHLORIDE 0.9% 1,000 ML IV SCH (13:14)
[2018-06-13 16:34] VITALS: BP 154/91; PULSE 66; RESP 12; TEMP 98.3
== END 2018-06-13 17:12 | disposition home health service (06) | DRG 378 ==
LOC: EC 14:56 → OBSVTOIN 16:05 → INTOOBSV 16:05 → 3NMEDONC 16:05 → OBSVTOIN 06-12 12:51
PROVIDERS: ADMIT Internal Medicine; ATTEND Internal Medicine
PROC: 0DB68ZX Excision of Stomach, Via Natural or Artificial Opening Endoscopic, Diagnostic (ICD-10-PCS; principal; 2018-06-11 09:55)
DX: K92.2 Gastrointestinal hemorrhage, unspecified (principal); D62 Acute posthemorrhagic anemia; I13.0 Hypertensive heart and chronic kidney disease with heart failure and stage 1 through stage 4 chronic kidney disease, or unspecified chronic kidney disease; I50.32 Chronic diastolic (congestive) heart failure; N39.0 Urinary tract infection, site not specified; I48.0 Paroxysmal atrial fibrillation; E11.22 Type 2 diabetes mellitus with diabetic chronic kidney disease; E11.40 Type 2 diabetes mellitus with diabetic neuropathy, unspecified; N18.3 Chronic kidney disease, stage 3 (moderate); B95.62 Methicillin resistant Staphylococcus aureus infection as the cause of diseases classified elsewhere; G40.909 Epilepsy, unspecified, not intractable, without status epilepticus; E78.5 Hyperlipidemia, unspecified; E66.9 Obesity, unspecified; F32.9 Major depressive disorder, single episode, unspecified; G89.29 Other chronic pain; I25.10 Atherosclerotic heart disease of native coronary artery without angina pectoris; J45.909 Unspecified asthma, uncomplicated; K29.70 Gastritis, unspecified, without bleeding; M19.90 Unspecified osteoarthritis, unspecified site; M79.605 Pain in left leg; R77.9 Abnormality of plasma protein, unspecified; I25.2 Old myocardial infarction; Z68.31 Body mass index [BMI] 31.0-31.9, adult; Z79.02 Long term (current) use of antithrombotics/antiplatelets; Z79.4 Long term (current) use of insulin; Z79.82 Long term (current) use of aspirin; Z79.899 Other long term (current) drug therapy; Z95.5 Presence of coronary angioplasty implant and graft; Z95.0 Presence of cardiac pacemaker; Z90.710 Acquired absence of both cervix and uterus; Z86.73 Personal history of transient ischemic attack (TIA), and cerebral infarction without residual deficits; Z86.19 Personal history of other infectious and parasitic diseases; Z85.828 Personal history of other malignant neoplasm of skin; Z85.42 Personal history of malignant neoplasm of other parts of uterus; Z88.2 Allergy status to sulfonamides; Z88.1 Allergy status to other antibiotic agents; Z91.040 Latex allergy status; Z90.49 Acquired absence of other specified parts of digestive tract; Z82.49 Family history of ischemic heart disease and other diseases of the circulatory system; Z82.5 Family history of asthma and other chronic lower respiratory diseases; Z80.9 Family history of malignant neoplasm, unspecified
CPT/HCPCS: 36415; 43239; 71045; 74176; 80048; 80053; 82272; 83690; 83880; 84484; 85025; 85027; 85610; 85730; 88305; 93005; 94640; 99284

== ENCOUNTER 2018-06-15 13:45 | Emergency (ER) | payer MEDICARE ==
[2018-06-15 13:52] VITALS: PULSE 60; RESP 18
[2018-06-15] MEDS ORDERED: SODIUM CHLORIDE 0.9% 1,000 ML IV STA (14:29)
[2018-06-15 14:44] LABS: Basophils # (A) 0.1 k/uL (0-0.2); Basophils % (A) 1 %; Eosinophils # (A) 0.3 k/uL (0-0.7); Eosinophils % (A) 4 %; HCT 41.7 % (34.0-46.0); HGB 13.4 gm/dL (11.4-16.0); Lymphocytes # (A) 1.6 k/uL (1.0-4.8); Lymphocytes % (A) 21 %; MCH 27.8 pg (25.0-35.0); MCHC 32.2 g/dL (31.0-37.0); MCV 86.5 fL (80.0-100.0); Mean Platelet Volume 6.9; Monocytes # (A) 0.5 k/uL (0-1.0); Monocytes % (A) 6 %; Neutrophils % (A) 67 %; Platelet Count 202 k/uL (150-450); RBC 4.82 m/uL (3.80-5.40); RDW 13.8 % (11.5-15.5); WBC 7.5 k/uL (3.8-10.6)
[2018-06-15 14:55] LABS: Albumin 4.3 g/dL (3.5-5.0); Calcium 9.7 mg/dL (8.4-10.2); Magnesium 1.7 mg/dL (1.6-2.3); Potassium 4.4 mmol/L (3.5-5.1); Total Bilirubin 0.5 mg/dL (0.2-1.3); Total Protein 6.5 g/dL (6.3-8.2)
[2018-06-15 15:00] LABS: INR 0.9 (<1.2); Partial Thromboplastin Time 22.9 sec (22.0-30.0); Prothrombin Time 10.2 sec (9.0-12.0)
--- NOTE | 2018-06-15 15:11 | XR ---
EXAMINATION TYPE: XR chest 2V DATE OF EXAM: 06/15/2018 COMPARISON: 06/10/2018 HISTORY: Chest pain TECHNIQUE: Frontal and lateral views of the chest are obtained. FINDINGS: Heart and mediastinum are normal. Lungs are clear of infiltrate. There is a left axillary pacemaker with the lead tips in the right ventricle. There is bilateral old proximal humerus fracture . Thoracic spine is intact. There is no pleural effusion. IMPRESSION: No active cardiopulmonary disease. Normal heart. No change.
--- NOTE | 2018-06-15 15:12 | ED ---
Abdominal Pain HPI - General Chief Complaint: Abdominal Pain Stated Complaint: TRAY Time Seen by Provider: 06/15/18 13:58 Source: patient, family, RN notes reviewed, old records reviewed Mode of arrival: wheelchair Limitations: no limitations - History of Present Illness Initial Comments: Patient is a 72-year-old female recently admitted for urinary tract infection GI bleed presents emergency room stay of epigastric abdominal pain. She reports she had episodes of shortness of breath that shortly resolved on its own. She states it seemed like she was just anxious. She's been having some consistent upper abdominal pain. She was diagnosed with gastritis on her recent admission. - Related Data Home Medications Medication Instructions Recorded Confirmed Sertraline [Zoloft] 150 mg PO DAILY 01/04/14 06/10/18 Dicyclomine [Bentyl] 10 mg PO AC-TID 03/21/17 06/10/18 Albuterol Inhaler [Ventolin Hfa 1 - 2 puff INHALATION RT-Q6H 03/27/18 06/10/18 Inhaler] Calcium Carbonate 500 mg PO DAILY 03/27/18 06/10/18 Ferrous Sulfate [Iron (65 MG 325 mg PO DAILY 03/27/18 06/10/18 Elemental)] Furosemide [Lasix] 40 mg PO DAILY 03/27/18 06/10/18 Labetalol [Trandate] 100 mg PO Q12H 03/27/18 06/10/18 Potassium Chloride [Klor-Con 8] 8 meq PO DAILY 03/27/18 06/10/18 hydrALAZINE HCL 50 mg PO TID 03/27/18 06/10/18 Acetaminophen Tab [Tylenol] 500 mg PO Q4-6H PRN 06/04/18 06/10/18 Gabapentin [Neurontin] 300 mg PO BID 06/04/18 06/10/18 Insulin Glargine [Lantus] 56 unit SQ HS 06/04/18 06/10/18 [place] (Unknown) 1 drop BOTH EYES MOFR 06/04/18 06/10/18 amLODIPine [Norvasc] 10 mg PO DAILY 06/04/18 06/10/18 levETIRAcetam [Keppra] 500 mg PO Q12HR 06/04/18 06/10/18 prednisoLONE ACETATE [Pred Forte 1 drop LEFT EYE DAILY 06/04/18 06/11/18 1%] Previous Rx's Medication Instructions Recorded Atorvastatin [Lipitor] 40 mg PO HS #90 tab 06/07/18 Clopidogrel [Plavix] 75 mg PO DAILY #90 tab 06/07/18 Nitroglycerin Sl Tabs [Nitrostat] 0.4 mg SUBLINGUAL Q5M PRN #14 tab 06/07/18 Doxycycline [Vibramycin] 100 mg PO BID 7 Days #14 capsule 06/08/18 Aspirin 81 mg PO DAILY chew 06/11/18 Omeprazole [PriLOSEC] 20 mg PO BID #60 capsule. 06/13/18 Allergies Allergy/AdvReac Type Severity Reaction Status Date / Time Latex, Natural Rubber Allergy Itching Verified 06/15/18 13:46 sulfamethoxazole Allergy Rash/Hives Verified 06/15/18 13:46 [From Bactrim] trimethoprim [From Bactrim] Allergy Rash/Hives Verified 06/15/18 13:46 Review of Systems ROS Statement: Those systems with pertinent positive or pertinent negative responses have been documented in the HPI. ROS Other: All systems not noted in ROS Statement are negative. 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 Brain mass with intercranial hemorrhage/hematoma treated at [facility]. Bronchial asthma, previous cardiac catheterization from January 2014 showing a mild coronary artery disease involving the LAD, uterine cancer 1994, broken left arm in 2006, skin cancer/resected , history of C. diff colitis, chronic renal failure, chronic atrial fibrillation, CHF History of Any Multi-Drug Resistant Organisms: MRSA Date of last positivie culture/infection: 06/05/18 MDRO Source:: URINE Past Surgical History: Cholecystectomy, Hysterectomy Additional Past Surgical History / Comment(s): eye sx cornea transplant, Evacuation on intracranial hematoma and ressection of hemorrhagic mass, pacemaker 2016 Past Anesthesia/Blood Transfusion Reactions: No Reported Reaction Additional Past Anesthesia/Blood Transfusion Reaction / Comment(s): no previous blood transfusions Past Psychological History: Depression Smoking Status: Never smoker Past Alcohol Use History: None Reported Past Drug Use History: None Reported - Past Family History Mother Family Medical History: Cancer, COPD, Hypertension Father Family Medical History: Cancer, Hypertension General Exam - General Exam Comments Initial Comments: 72-year-old female. Alert and oriented. No significant distress. Limitations: no limitations General appearance: alert, in no apparent distress Head exam: Present: atraumatic, normocephalic, normal inspection Eye exam: Present: normal appearance, PERRL, EOMI. Absent: scleral icterus, conjunctival injection, periorbital swelling ENT exam: Present: normal exam, mucous membranes moist Neck exam: Present: normal inspection. Absent: tenderness, meningismus, lymph adenopathy Respiratory exam: Present: normal lung sounds bilaterally. Absent: respiratory distress, wheezes, rales, rhonchi, stridor Cardiovascular Exam: Present: regular rate, normal rhythm, normal heart sounds. Absent: systolic murmur, diastolic murmur, rubs, gallop, clicks GI/Abdominal exam: Present: soft, normal bowel sounds. Absent: distended, tenderness, guarding, rebound, rigid Extremities exam: Present: normal inspection, full ROM, normal capillary refill. Absent: tenderness, pedal edema, joint swelling, calf tenderness Back exam: Present: normal inspection Neurological exam: Present: alert, oriented X3, CN II-XII intact Psychiatric exam: Present: normal affect, normal mood Skin exam: Present: warm, dry, intact, normal color. Absent: rash Course Vital Signs 06/15/18 13:46 Temperature 98.0 F Pulse Rate 60 Respiratory 18 Rate Blood Pressure 160/73 O2 Sat by Pulse 98 Oximetry Medical Decision Making - Lab Data Result diagrams: 06/15/18 14:30 06/15/18 14:30 Lab Results 06/15/18 06/15/18 06/15/18 Range/Units 14:30 14:30 14:30 WBC 7.5 (3.8-10.6) k/uL RBC 4.82 (3.80-5.40) m/uL Hgb 13.4 (11.4-16.0) gm/dL Hct 41.7 (34.0-46.0) % MCV 86.5 (80.0-100.0) fL MCH 27.8 (25.0-35.0) pg MCHC 32.2 (31.0-37.0) g/dL RDW 13.8 (11.5-15.5) % Plt Count 202 (150-450) k/uL Neutrophils % 67 % Lymphocytes % 21 % Monocytes % 6 % Eosinophils % 4 % Basophils % 1 % Neutrophils # 5.0 (1.3-7.7) k/uL Lymphocytes # 1.6 (1.0-4.8) k/uL Monocytes # 0.5 (0-1.0) k/uL Eosinophils # 0.3 (0-0.7) k/uL Basophils # 0.1 (0-0.2) k/uL PT 10.2 (9.0-12.0) sec INR 0.9 (<1.2) APTT 22.9 (22.0-30.0) sec Sodium 144 (137-145) mmol/L Potassium 4.4 (3.5-5.1) mmol/L Chloride 106 (98-107) mmol/L Carbon Dioxide 29 (22-30) mmol/L Anion Gap 9 mmol/L BUN 24 H (7-17) mg/dL Creatinine 1.50 H (0.52-1.04) mg/dL Est GFR (CKD-EPI)AfAm 40 (>60 ml/min/1.73 sqM) Est GFR (CKD-EPI)NonAf 34 (>60 ml/min/1.73 sqM) Glucose 168 H (74-99) mg/dL Calcium 9.7 (8.4-10.2) mg/dL Magnesium 1.7 (1.6-2.3) mg/dL Total Bilirubin 0.5 (0.2-1.3) mg/dL AST 16 (14-36) U/L ALT 28 (9-52) U/L Alkaline Phosphatase 89 (38-126) U/L Troponin I (0.000-0.034) ng/mL Total Protein 6.5 (6.3-8.2) g/dL Albumin 4.3 (3.5-5.0) g/dL Amylase 37 (30-110) U/L Lipase 100 (23-300) U/L Urine Color Urine Appearance (Clear) Urine pH (5.0-8.0) Ur Specific [place] (1.001-1.035) Urine Protein (Negative) Urine Glucose (UA) (Negative) Urine Ketones (Negative) Urine Blood (Negative) Urine Nitrite (Negative) Urine Bilirubin (Negative) Urine Urobilinogen (<2.0) mg/dL Ur Leukocyte Esterase (Negative) Urine RBC (0-5) /hpf Urine WBC (0-5) /hpf Ur Squamous Epith Cells (0-4) /hpf Hyaline Casts (0-2) /lpf Urine Mucus (None) /hpf 06/15/18 06/15/18 Range/Units 14:30 15:30 WBC (3.8-10.6) k/uL RBC (3.80-5.40) m/uL Hgb (11.4-16.0) gm/dL Hct (34.0-46.0) % MCV (80.0-100.0) fL MCH (25.0-35.0) pg MCHC (31.0-37.0) g/dL RDW (11.5-15.5) % Plt Count (150-450) k/uL Neutrophils % % Lymphocytes % % Monocytes % % Eosinophils % % Basophils % % Neutrophils # (1.3-7.7) k/uL Lymphocytes # (1.0-4.8) k/uL Monocytes # (0-1.0) k/uL Eosinophils # (0-0.7) k/uL Basophils # (0-0.2) k/uL PT (9.0-12.0) sec INR (<1.2) APTT (22.0-30.0) sec Sodium (137-145) mmol/L Potassium (3.5-5.1) mmol/L Chloride (98-107) mmol/L Carbon Dioxide (22-30) mmol/L Anion Gap mmol/L BUN (7-17) mg/dL Creatinine (0.52-1.04) mg/dL Est GFR (CKD-EPI)AfAm (>60 ml/min/1.73 sqM) Est GFR (CKD-EPI)NonAf (>60 ml/min/1.73 sqM) Glucose (74-99) mg/dL Calcium (8.4-10.2) mg/dL Magnesium (1.6-2.3) mg/dL Total Bilirubin (0.2-1.3) mg/dL AST (14-36) U/L ALT (9-52) U/L Alkaline Phosphatase (38-126) U/L Troponin I <0.012 (0.000-0.034) ng/mL Total Protein (6.3-8.2) g/dL Albumin (3.5-5.0) g/dL Amylase (30-110) U/L Lipase (23-300) U/L Urine Color Yellow Urine Appearance Clear (Clear) Urine pH 5.5 (5.0-8.0) Ur Specific [place] 1.026 (1.001-1.035) Urine Protein 1+ H (Negative) Urine Glucose (UA) Negative (Negative) Urine Ketones Negative (Negative) Urine Blood Negative (Negative) Urine Nitrite Negative (Negative) Urine Bilirubin Negative (Negative) Urine Urobilinogen 2.0 (<2.0) mg/dL Ur Leukocyte Esterase Negative (Negative) Urine RBC <1 (0-5) /hpf Urine WBC 1 (0-5) /hpf Ur Squamous Epith Cells <1 (0-4) /hpf Hyaline Casts 16 H (0-2) /lpf Urine Mucus Rare H (None) /hpf 06/15/18 15:51 EKG performed at 1404 shows atrial paced rhythm, ST-T wave abnormality considering for ischemia and anterolateral ischemia. Prolonged QT. Ventricular rate of 60 bpm. Was 314 ms. QRS duration is 86 ms. QT QTc is 470 ms. Disposition Clinical Impression: Gastritis Disposition: HOME SELF-CARE Condition: Good Additional Instructions: Follow-up with your primary care physician. Return to emergency department if any alarming signs or symptoms occur. Complete all the previous a prescribed medications for you. Is patient prescribed a controlled substance at d/c from ED?: No Referrals: Lisa Willingham MD [Primary Care Provider] - 1-2 days Time of Disposition: 17:03
[2018-06-15 15:53] LABS: Appearance,Urine Clear (Clear); Bilirubin,Urine Negative (Negative); Blood,Urine Negative (Negative); Color,Urine Yellow; Glucose,Urine (UA) Negative (Negative); Hyaline Casts,Urine 16 /lpf (0-2); Ketones,Urine Negative (Negative); Leukocyte Esterase,Urine Negative (Negative); Mucus,Urine Rare /hpf; Nitrite,Urine Negative (Negative); PH, Urine 5.5 (5.0-8.0); Protein,Urine 1+ (Negative); RBC,Urine <1 /hpf (0-5); Specific Gravity,Urine 1.026 (1.001-1.035); Squamous Epithelial Cell,Urine <1 /hpf (0-4); WBC,Urine 1 /hpf (0-5)
[2018-06-15 17:19] VITALS: BP 174/54; TEMP 98.1
== END 2018-06-15 17:19 | disposition home or self-care (01) ==
LOC: EC 13:45
DX: K29.70 Gastritis, unspecified, without bleeding (principal); F32.9 Major depressive disorder, single episode, unspecified; J45.909 Unspecified asthma, uncomplicated; E11.22 Type 2 diabetes mellitus with diabetic chronic kidney disease; I13.0 Hypertensive heart and chronic kidney disease with heart failure and stage 1 through stage 4 chronic kidney disease, or unspecified chronic kidney disease; N18.9 Chronic kidney disease, unspecified; I50.9 Heart failure, unspecified; G40.909 Epilepsy, unspecified, not intractable, without status epilepticus; Z79.4 Long term (current) use of insulin; Z79.899 Other long term (current) drug therapy; Z91.040 Latex allergy status; Z91.048 Other nonmedicinal substance allergy status; Z88.1 Allergy status to other antibiotic agents; Z88.2 Allergy status to sulfonamides; Z95.5 Presence of coronary angioplasty implant and graft; Z85.828 Personal history of other malignant neoplasm of skin; Z94.7 Corneal transplant status
CPT/HCPCS: 36415; 71046; 80053; 81001; 82150; 83690; 83735; 84484; 85025; 85610; 85730; 93005; 96360; 99284

== ENCOUNTER 2018-06-26 11:51 | Emergency (ER) | payer MEDICARE ==
[2018-06-26 12:02] VITALS: RESP 18
--- NOTE | 2018-06-26 12:47 | ED ---
Fall HPI - General Chief Complaint: Fall Stated Complaint: FALL Time Seen by Provider: 06/26/18 12:04 Source: patient, family, EMS, RN notes reviewed Mode of arrival: EMS Limitations: no limitations - History of Present Illness Initial Comments: 72-year-old female presents emergency Department for slip and fall. Patient states that she try to give her the bathroom by herself and which she is wheelchair bound. Patient's lip because of wheelchair tipped. Patient fell striking her right arm. Denies any head injury no loss conscious. Patient has no headache, neck pain, back pain, hip pain. Patient noticed some bruising to the right arm otherwise no other complaints. - Related Data Home Medications Medication Instructions Recorded Confirmed Sertraline [Zoloft] 150 mg PO DAILY 01/04/14 06/26/18 Dicyclomine [Bentyl] 10 mg PO AC-TID 03/21/17 06/26/18 Albuterol Inhaler [Ventolin Hfa 1 - 2 puff INHALATION RT-Q6H PRN 03/27/18 06/26/18 Inhaler] Calcium Carbonate 500 mg PO DAILY 03/27/18 06/26/18 Ferrous Sulfate [Iron (65 MG 325 mg PO DAILY 03/27/18 06/26/18 Elemental)] Furosemide [Lasix] 40 mg PO DAILY 03/27/18 06/26/18 Labetalol [Trandate] 100 mg PO Q12H 03/27/18 06/26/18 Potassium Chloride [Klor-Con 8] 8 meq PO DAILY 03/27/18 06/26/18 hydrALAZINE HCL 50 mg PO TID 03/27/18 06/26/18 Acetaminophen Tab [Tylenol] 500 mg PO Q4-6H PRN 06/04/18 06/26/18 Gabapentin [Neurontin] 300 mg PO BID 06/04/18 06/26/18 Insulin Glargine [Lantus] 56 unit SQ HS 06/04/18 06/26/18 amLODIPine [Norvasc] 10 mg PO DAILY 06/04/18 06/26/18 levETIRAcetam [Keppra] 500 mg PO Q12HR 06/04/18 06/26/18 prednisoLONE ACETATE [Pred Forte 1 drop LEFT EYE DAILY 06/04/18 06/26/18 1%] Sodium Chloride 5% Ophth Soln 1 drops RIGHT EYE MOFR 06/26/18 06/26/18 [Amanda 128] Triamcinolone 0.1% Ointment 1 applic TOPICAL BID 06/26/18 06/26/18 [Kenalog 0.1% Ointment] buPROPion SR [Wellbutrin Sr] 100 mg PO DAILY 06/26/18 06/26/18 Previous Rx's Medication Instructions Recorded Atorvastatin [Lipitor] 40 mg PO HS #90 tab 06/07/18 Clopidogrel [Plavix] 75 mg PO DAILY #90 tab 06/07/18 Nitroglycerin Sl Tabs [Nitrostat] 0.4 mg SUBLINGUAL Q5M PRN #14 tab 06/07/18 Aspirin 81 mg PO DAILY chew 06/11/18 Omeprazole [PriLOSEC] 20 mg PO BID #60 capsule. 06/13/18 Allergies Allergy/AdvReac Type Severity Reaction Status Date / Time Latex, Natural Rubber Allergy Itching Verified 06/26/18 12:20 sulfamethoxazole Allergy Rash/Hives Verified 06/26/18 12:20 [From Bactrim] trimethoprim [From Bactrim] Allergy Rash/Hives Verified 06/26/18 12:20 Review of Systems ROS Statement: Those systems with pertinent positive or pertinent negative responses have been documented in the HPI. ROS Other: All systems not noted in ROS Statement are negative. 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 Brain mass with intercranial hemorrhage/hematoma treated at [facility]. Bronchial asthma, previous cardiac catheterization from January 2014 showing a mild coronary artery disease involving the LAD, uterine cancer 1994, broken left arm in 2006, skin cancer/resected , history of C. diff colitis, chronic renal failure, chronic atrial fibrillation, CHF History of Any Multi-Drug Resistant Organisms: MRSA Date of last positivie culture/infection: 06/05/18 MDRO Source:: URINE Past Surgical History: Cholecystectomy, Hysterectomy Additional Past Surgical History / Comment(s): eye sx cornea transplant, Evacuation on intracranial hematoma and ressection of hemorrhagic mass, pacemaker 2016 Past Anesthesia/Blood Transfusion Reactions: No Reported Reaction Additional Past Anesthesia/Blood Transfusion Reaction / Comment(s): no previous blood transfusions Past Psychological History: Depression Smoking Status: Never smoker Past Alcohol Use History: None Reported Past Drug Use History: None Reported - Past Family History Mother Family Medical History: Cancer, COPD, Hypertension Father Family Medical History: Cancer, Hypertension General Exam Limitations: no limitations General appearance: alert, in no apparent distress Head exam: Present: atraumatic, normocephalic, normal inspection Eye exam: Present: normal appearance, PERRL, EOMI. Absent: scleral icterus, conjunctival injection, periorbital swelling ENT exam: Present: normal exam, normal oropharynx, mucous membranes moist Neck exam: Present: normal inspection, full ROM. Absent: tenderness, meningismus, lymphadenopathy Respiratory exam: Present: normal lung sounds bilaterally. Absent: respiratory distress, wheezes, rales, rhonchi, stridor Cardiovascular Exam: Present: regular rate, normal rhythm, normal heart sounds. Absent: systolic murmur, diastolic murmur, rubs, gallop, clicks GI/Abdominal exam: Present: soft, normal bowel sounds. Absent: distended, tenderness, guarding, rebound, rigid Extremities exam: Present: other (Mild tenderness the right humeral region, swelling, ecchymosis noted, right forearm within normal limits remaining extremity exam within normal limits neurovascular intact) Back exam: Present: normal inspection, full ROM. Absent: tenderness, paraspinal tenderness, vertebral tenderness Neurological exam: Present: alert, oriented X3, CN II-XII intact, reflexes normal. Absent: motor sensory deficit Skin exam: Present: warm, dry, intact, normal color. Absent: rash Course Vital Signs 06/26/18 06/26/18 11:55 14:23 Temperature 97.4 F L 97.8 F Pulse Rate 61 60 Respiratory 18 18 Rate Blood Pressure 187/96 158/60 O2 Sat by Pulse 96 98 Oximetry Medical Decision Making - Medical Decision Making 32-year-old female presented for fall out of her wheelchair. X-rays are negative for acute fracture. Patient will be discharged. Patient is right arm contusion. Disposition Clinical Impression: Fall, Contusion of arm, right Disposition: HOME SELF-CARE Condition: Stable Instructions (If sedation given, give patient instructions): Fall Prevention for Older Adults (ED) Additional Instructions: Please return to the Emergency Department if symptoms worsen or any other concerns. Is patient prescribed a controlled substance at d/c from ED?: No Referrals: Lisa Willingham MD [Primary Care Provider] - 1-2 days Time of Disposition: 14:47
--- NOTE | 2018-06-26 12:58 | XR ---
EXAMINATION TYPE: XR humerus RT DATE OF EXAM: 06/26/2018 CLINICAL HISTORY: Fall and right humeral pain TECHNIQUE: Two views of the right humerus are obtained. COMPARISON: None. FINDINGS: There are healed fracture deformities of the proximal and mid right humeral diaphysis and h umeral head. There is osseous demineralization. Mild degenerative change of the acromioclavicular lillie nt and severe degenerative change of the glenohumeral joint are seen. Mild arthropathy of the elbow i s also noted. No elbow joint effusion is appreciated. Small vessel atherosclerosis is seen of the for earm. Scapular views could assess for possible nondisplaced acute scapular fracture. IMPRESSION: 1. Possible subtle acute scapular fracture. Scapular radiographs are recommended. 2. No additional acute fracture deformity. Healed fracture deformities of the right humeral proximal metadiaphysis and humeral head.
--- NOTE | 2018-06-26 14:07 | XR ---
Right scapula HISTORY: Trauma and pain 2 views of the right scapula Correlation to right humerus same date Distortion of the right humerus likely due to remote trauma. Acromioclavicular joint shows arthropath y change. Right lung apex as visualized is normal. IMPRESSION: No fracture or dislocation.
[2018-06-26 14:26] VITALS: BP 158/60; PULSE 60; TEMP 97.8
== END 2018-06-26 15:46 | disposition home or self-care (01) ==
LOC: EC 11:51
DX: S40.021A Contusion of right upper arm, initial encounter (principal); J45.909 Unspecified asthma, uncomplicated; I48.0 Paroxysmal atrial fibrillation; I48.2 Chronic atrial fibrillation; E11.9 Type 2 diabetes mellitus without complications; I13.0 Hypertensive heart and chronic kidney disease with heart failure and stage 1 through stage 4 chronic kidney disease, or unspecified chronic kidney disease; I50.9 Heart failure, unspecified; G40.909 Epilepsy, unspecified, not intractable, without status epilepticus; F32.9 Major depressive disorder, single episode, unspecified; Z88.2 Allergy status to sulfonamides; Z91.040 Latex allergy status; Z79.4 Long term (current) use of insulin; Z79.52 Long term (current) use of systemic steroids; Z79.899 Other long term (current) drug therapy; Z95.818 Presence of other cardiac implants and grafts; Z86.14 Personal history of Methicillin resistant Staphylococcus aureus infection; Z85.42 Personal history of malignant neoplasm of other parts of uterus; Z85.828 Personal history of other malignant neoplasm of skin; Z98.890 Other specified postprocedural states; Z95.0 Presence of cardiac pacemaker; Z94.7 Corneal transplant status; Z99.3 Dependence on wheelchair; W05.0XXA Fall from non-moving wheelchair, initial encounter; Y93.89 Activity, other specified
CPT/HCPCS: 99284

== ENCOUNTER 2018-07-01 12:16 | Observation (INO) | payer MEDICARE ==
[2018-07-01] MEDS ORDERED: SODIUM CHLORIDE 0.9% 1,000 ML IV STA (12:25)
--- NOTE | 2018-07-01 12:30 | ED ---
Chest Pain HPI - General Chief Complaint: Chest Pain Stated Complaint: chest pain Time Seen by Provider: 07/01/18 12:22 Source: patient, EMS, RN notes reviewed, old records reviewed Mode of arrival: EMS Limitations: no limitations - History of Present Illness Initial Comments: This is a 72-year-old female the ER for evaluation. Patient does say for melisa luation regards to chest pain. Patient's a poor historian history obtained from family member, patient did have chest pain here on the emergency room which began about 1 hour prior to arrival. Patient was given nitro by EMS patient did have improvement in chest pain after nitro. EMS to transfer patient and provides rest of history. MD Complaint: chest pain -: hour(s) Onset: during rest Pain Location: substernal, left chest Pain Radiation: LUE Severity: moderate Severity scale (1-10): 5 Quality: tightness, heaviness Consistency: intermittent Improves With: nitroglycerin Worsens With: nothing Treatments Prior to Arrival: none - Related Data Home Medications Medication Instructions Recorded Confirmed Sertraline [Zoloft] 150 mg PO DAILY 01/04/14 07/01/18 Dicyclomine [Bentyl] 10 mg PO AC-TID 03/21/17 07/01/18 Albuterol Inhaler [Ventolin Hfa 1 - 2 puff INHALATION RT-Q6H PRN 03/27/18 07/01/18 Inhaler] Calcium Carbonate 500 mg PO DAILY 03/27/18 07/01/18 Ferrous Sulfate [Iron (65 MG 325 mg PO DAILY 03/27/18 07/01/18 Elemental)] Furosemide [Lasix] 40 mg PO DAILY 03/27/18 07/01/18 Labetalol [Trandate] 100 mg PO Q12H 03/27/18 07/01/18 Potassium Chloride [Klor-Con 8] 8 meq PO DAILY 03/27/18 07/01/18 hydrALAZINE HCL 50 mg PO TID 03/27/18 07/01/18 Acetaminophen Tab [Tylenol] 500 mg PO Q4-6H PRN 06/04/18 07/01/18 Gabapentin [Neurontin] 300 mg PO BID 06/04/18 07/01/18 Insulin Glargine [Lantus] 56 unit SQ HS 06/04/18 07/01/18 amLODIPine [Norvasc] 10 mg PO DAILY 06/04/18 07/01/18 levETIRAcetam [Keppra] 500 mg PO Q12HR 06/04/18 07/01/18 prednisoLONE ACETATE [Pred Forte 1 drop LEFT EYE DAILY 06/04/18 07/01/18 1%] Sodium Chloride 5% Ophth Soln 1 drops RIGHT EYE MOFR 06/26/18 07/01/18 [Amanda 128] Triamcinolone 0.1% Ointment 1 applic TOPICAL BID 06/26/18 07/01/18 [Kenalog 0.1% Ointment] buPROPion SR [Wellbutrin Sr] 100 mg PO DAILY 06/26/18 07/01/18 Previous Rx's Medication Instructions Recorded Atorvastatin [Lipitor] 40 mg PO HS #90 tab 06/07/18 Clopidogrel [Plavix] 75 mg PO DAILY #90 tab 06/07/18 Nitroglycerin Sl Tabs [Nitrostat] 0.4 mg SUBLINGUAL Q5M PRN #14 tab 06/07/18 Aspirin 81 mg PO DAILY chew 06/11/18 Omeprazole [PriLOSEC] 20 mg PO BID #60 capsule. 06/13/18 Allergies Allergy/AdvReac Type Severity Reaction Status Date / Time Latex, Natural Rubber Allergy Itching Verified 07/01/18 13:25 sulfamethoxazole Allergy Rash/Hives Verified 07/01/18 13:25 [From Bactrim] trimethoprim [From Bactrim] Allergy Rash/Hives Verified 07/01/18 13:25 Review of Systems ROS Statement: Those systems with pertinent positive or pertinent negative responses have been documented in the HPI. ROS Other: All systems not noted in ROS Statement are negative. EKG Findings - EKG Comments: EKG Findings:: EKG shows paced rhythm rate of 60, NV 150, QRS 80, QTC 450 - EKG Results: EKG: interpreted by ERMD, no acute changes (Patient does have prior EKG which shows similar T-wave and ST changes) Past Medical History Past Medical History: Atrial Fibrillation, Asthma, Diabetes Mellitus, Hypertension, Osteoarthritis (OA) Additional Past Medical History / Comment(s): paroxysmal atrial fibrilliation not on anticoagulation due to prior brain bleed, seizure disorder after surgery for brain mass. Brain mass with intercranial hemorrhage/hematoma treated at [place]. Bronchial asthma, previous cardiac catheterization from January 2014 showing a mild coronary artery disease involving the LAD, uterine cancer 1994, broken left arm in 2006, skin cancer/resected , history of C. diff colitis, chronic renal failure, chronic atrial fibrillation, CHF History of Any Multi-Drug Resistant Organisms: MRSA Date of last positivie culture/infection: 06/05/18 MDRO Source:: URINE Past Surgical History: Cholecystectomy, Hysterectomy Additional Past Surgical History / Comment(s): eye sx cornea transplant, Evacuation on intracranial hematoma and ressection of hemorrhagic mass, pacemaker 2016 Past Anesthesia/Blood Transfusion Reactions: No Reported Reaction Additional Past Anesthesia/Blood Transfusion Reaction / Comment(s): no previous blood transfusions Past Psychological History: Depression Smoking Status: Never smoker Past Alcohol Use History: None Reported Past Drug Use History: None Reported - Past Family History Mother Family Medical History: Cancer, COPD, Hypertension Father Family Medical History: Cancer, Hypertension General Exam Limitations: no limitations General appearance: alert, in no apparent distress Head exam: Present: atraumatic, normocephalic, normal inspection Eye exam: Present: normal appearance, PERRL, EOMI. Absent: scleral icterus, conjunctival injection, periorbital swelling ENT exam: Present: normal exam, mucous membranes moist Neck exam: Present: normal inspection. Absent: tenderness, meningismus, lymphadenopathy Respiratory exam: Present: normal lung sounds bilaterally. Absent: respiratory distress, wheezes, rales, rhonchi, stridor Cardiovascular Exam: Present: regular rate, normal rhythm, normal heart sounds. Absent: systolic murmur, diastolic murmur, rubs, gallop, clicks GI/Abdominal exam: Present: soft, normal bowel sounds. Absent: distended, tenderness, guarding, rebound, rigid Extremities exam: Present: normal inspection, full ROM, normal capillary refill. Absent: tenderness, pedal edema, joint swelling, calf tenderness Back exam: Present: normal inspection Neurological exam: Present: alert, oriented X3, CN II-XII intact Psychiatric exam: Present: normal affect, normal mood Skin exam: Present: warm, dry, intact, normal color. Absent: rash Course Vital Signs 07/01/18 07/01/18 07/01/18 12:19 12:24 12:30 Temperature 98.3 F Pulse Rate 62 60 Pulse Rate [ 60 Supervisor Frame Sample And Pattern ] Respiratory 18 18 Rate Blood Pressure 134/87 134/87 O2 Sat by Pulse 95 98 Oximetry 07/01/18 13:52 Temperature Pulse Rate 60 Pulse Rate [ Supervisor Frame Sample And Pattern ] Respiratory 18 Rate Blood Pressure 196/73 O2 Sat by Pulse 95 Oximetry - Reevaluation(s) Reevaluation #1: 07/01/18 14:22 Medical record reviewed Reevaluation #2: 07/01/18 14:22 Patient remains a chest pain, does admit to feeling anxious Reevaluation #3: 07/01/18 14:22 Elevated blood pressure is much improved currently Chest Pain MDM - MDM 72 female the ER for evaluation, patient presents today for evaluation of chest pain. Patient's chest pain was improved with nitro. No shortness of breath and diaphoresis noted per patient. Patient does have significant heart history, current rhythm is paced. Patient will be admitted for cardiology evaluation, blood pressure was elevated, did give blood pressure medications here in the ER Critical Care Time Critical Care Time: Yes Total Critical Care Time: 31 Disposition Clinical Impression: Chest pain, Hypertension Disposition: ADMITTED IP TO THIS [facility] Condition: Undetermined Is patient prescribed a controlled substance at d/c from ED?: No Referrals: Lisa Willingham MD [Primary Care Provider] - 1-2 days
[2018-07-01 12:48] LABS: Basophils # (A) 0.1 k/uL (0-0.2); Basophils % (A) 1 %; Eosinophils # (A) 0.2 k/uL (0-0.7); Eosinophils % (A) 3 %; HCT 39.5 % (34.0-46.0); HGB 12.9 gm/dL (11.4-16.0); Lymphocytes # (A) 1.7 k/uL (1.0-4.8); Lymphocytes % (A) 20 %; MCH 28.4 pg (25.0-35.0); MCHC 32.5 g/dL (31.0-37.0); MCV 87.2 fL (80.0-100.0); Mean Platelet Volume 7.3; Monocytes # (A) 0.5 k/uL (0-1.0); Monocytes % (A) 6 %; Neutrophils # (A) 5.9 k/uL (1.3-7.7); Neutrophils % (A) 70 %; Platelet Count 212 k/uL (150-450); RBC 4.54 m/uL (3.80-5.40); RDW 14.3 % (11.5-15.5); WBC 8.5 k/uL (3.8-10.6)
[2018-07-01 12:52] LABS: Albumin 4.1 g/dL (3.5-5.0); Calcium 9.2 mg/dL (8.4-10.2); Magnesium 1.8 mg/dL (1.6-2.3); Potassium 4.6 mmol/L (3.5-5.1); Total Bilirubin 0.7 mg/dL (0.2-1.3); Total Protein 6.3 g/dL (6.3-8.2)
[2018-07-01 12:55] LABS: D-Dimer 0.52 mg/L FEU (<0.60); Partial Thromboplastin Time 22.2 sec (22.0-30.0); Prothrombin Time 10.3 sec (9.0-12.0)
--- NOTE | 2018-07-01 13:10 | XR ---
EXAMINATION TYPE: XR chest 2V DATE OF EXAM: 07/01/2018 COMPARISON: 06/15/2018 TECHNIQUE: PA and lateral views submitted. HISTORY: Chest pain FINDINGS: The lungs are clear and there is no pneumothorax, pleural effusion, or focal pneumonia. Hypertrophi c and degenerative change of the spine. Heart is enlarged. Atherosclerotic change aorta. Cardiac aleksandar ce seen. No pneumothorax. Diffuse osteopenia noted. Hyperinflation suggests COPD. IMPRESSION: 1. No acute process. Correlate for COPD.
[2018-07-01] MEDS ORDERED: LABETALOL SYRINGE 5 MG/ML IVP STA (13:51)
[2018-07-01] MEDS ORDERED: NITROGLYCERIN SL TABS 0.4 MG TAB SUBLINGUAL PRN (14:14)
[2018-07-01] MEDS ORDERED: HEPARIN SODIUM,PORCINE 5,000 UNIT/ML 1 ML VIAL IV ONE (14:14)
[2018-07-01] MEDS ORDERED: HEPARIN SODIUM,PORCINE 5,000 UNIT/ML 1 ML VIAL IV PRN (14:14)
[2018-07-01] MEDS ORDERED: SODIUM CHLORIDE 0.9% 1,000 ML IV SCH (14:15)
[2018-07-01] MEDS ORDERED: HEPARIN SOD,PORK IN 0.45% NACL 25,000 UNIT in 0.45% NACL 1 250ML.BAG IV SCH (14:15)
[2018-07-01] MEDS: CLOPIDOGREL 75 MG TAB PO SCH (16:12)
[2018-07-01] MEDS: FUROSEMIDE 40 MG TAB PO SCH (16:12)
[2018-07-01] MEDS: LABETALOL 100 MG TAB PO SCH ×2 (16:13→19:51)
[2018-07-01] MEDS: hydrALAZINE HCL 50 MG TAB PO SCH ×2 (16:13→19:50)
[2018-07-01] MEDS: amLODIPine 10 MG TAB PO SCH (16:15)
[2018-07-01 16:56] LABS: Glucose,Whole Blood 116 mg/dL (75-99)
[2018-07-01] MEDS ORDERED: ALBUTEROL NEBULIZED 2.5 MG/3 ML INHALATION PRN (17:24)
--- NOTE | 2018-07-01 17:55 | P.CNPUL ---
History of Present Illness Consult date: 07/01/18 Requesting physician: Jhonathan Hatfield Reason for consult: chest pain Chief complaint: Chest pain History of present illness: This is a 72-year-old white female patient with multiple comorbidities i ncluding chronic atrial fibrillation, history of intracranial mass with hemorrhage status post resection, chronic kidney disease, type 2 diabetes, hypertension, chronic congestive heart failure with diastolic dysfunction, chronic bronchial asthma, coronary artery disease with history of stenting of the LAD on 06/06/2018, permanent pacemaker implantation for sick sinus syndrome, recent hospitalization for MRSA urinary tract infection, GI bleeding. Patient underwent EGD during that admission which revealed erosive gastritis, without active signs of bleeding. Prior to discharge patient's aspirin was reduced to 81 mg daily, she continued on Plavix for history of recent stenting. On 07/01/2018 patient was brought into the emergency department by an ambulance for complaints of chest tightness, and patient describes her discomfort under her left breast, she states she woke up with the pain in her chest, it lasted about an hour, and she did have some discomfort in her left arm and mild dyspnea. Denied any diaphoresis, did have an episode of nausea in the emergency department, no emesis. When her [id number] arrived home she gave her 1 sublingual nitro, and called 911, when EMS arrived patient received 2 more sublingual nitros with some relief in her chest discomfort. Was given 4 baby aspirins en route to the hospital. From pulmonary perspective patient states she did not have any significant illness of breath, no cough or chest congestion, wheezing, no fever or chills. Her asthma has been stable. Chest x- ray showed no acute process, no focal infiltrates, no pleural effusions, no pneumothorax. EKG showed atrial paced rhythm, with T-wave inversion in the inferior leads, was anterolateral leads. Repeat EKG did not show any change. Lab work showed white blood cell count of 8.5, hemoglobin of 12.9, d-dimer was within normal limits at 0.52, sodium was 143, potassium is 4.6, chloride was 106, CO2 was 31, BUN was 27, creatinine was 1.37. Troponin was negative 1, p roBNP was elevated at 3970. Review of Systems All systems: negative Constitutional: Denies chills, Denies fever Eyes: denies blurred vision, denies pain Ears, nose, mouth and throat: Denies headache, Denies sore throat Cardiovascular: Reports chest pain, Denies shortness of breath Respiratory: Denies cough Gastrointestinal: Denies abdominal pain, Denies diarrhea, Denies nausea, Denies vomiting Genitourinary: Denies dysuria, Denies hematuria Musculoskeletal: Denies myalgias Integumentary: Denies pruritus, Denies rash Neurological: Denies numbness, Denies weakness Psychiatric: Denies anxiety, Denies depression Endocrine: Denies fatigue, Denies weight change Past Medical History Past Medical History: Atrial Fibrillation, Asthma, Coronary Artery Disease (CAD), Cancer, Heart Failure, Diabetes Mellitus, Hypertension, Osteoarthritis (OA), Renal Disease Additional Past Medical History / Comment(s): Pt recently admitted to [facility] on 06/12/18 with gastritis, gastric erosion (lower GI bleed). 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 History of Any Multi-Drug Resistant Organisms: MRSA Date of last positivie culture/infection: 06/05/18 MDRO Source:: URINE Past Surgical History: Cholecystectomy, Heart Catheterization, Heart Catheterization With Stent, Hysterectomy, Pacemaker Additional Past Surgical History / Comment(s): Evacuation on intracranial hemat hannah and ressection of hemorrhagic mass, pacemaker 2016, PCI with stent 06/06/18, R eye corneal implant/cataract removal, EGD 06/2018, colonoscopy, skin cancer removal. Past Anesthesia/Blood Transfusion Reactions: No Reported Reaction Additional Past Anesthesia/Blood Transfusion Reaction / Comment(s): no previous blood transfusions Date of Last Stent Placement:: 06/06/18 Type of Cardiac Device: Permanent Pacemaker Device Placement Date:: 04/2016 Smoking Status: Never smoker - Past Family History Mother Family Medical History: Cancer, COPD, Hypertension Additional Family Medical History / Comment(s): Mother had bone cancer. Father Family Medical History: Cancer, Hypertension Additional Family Medical History / Comment(s): Father had skin cancer. Medications and Allergies Home Medications Medication Instructions Recorded Confirmed Type Sertraline [Zoloft] 150 mg PO DAILY 01/04/14 07/01/18 History Dicyclomine [Bentyl] 10 mg PO AC-TID 03/21/17 07/01/18 History Albuterol Inhaler [Ventolin Hfa 1 - 2 puff INHALATION RT-Q6H PRN 03/27/18 07/01/18 History Inhaler] Calcium Carbonate 500 mg PO DAILY 03/27/18 07/01/18 History Ferrous Sulfate [Iron (65 MG 325 mg PO DAILY 03/27/18 07/01/18 History Elemental)] Furosemide [Lasix] 40 mg PO DAILY 03/27/18 07/01/18 History Labetalol [Trandate] 100 mg PO Q12H 03/27/18 07/01/18 History Potassium Chloride [Klor-Con 8] 8 meq PO DAILY 03/27/18 07/01/18 History hydrALAZINE HCL 50 mg PO TID 03/27/18 07/01/18 History Acetaminophen Tab [Tylenol] 500 mg PO Q4-6H PRN 06/04/18 07/01/18 History Gabapentin [Neurontin] 300 mg PO BID 06/04/18 07/01/18 History Insulin Glargine [Lantus] 56 unit SQ HS 06/04/18 07/01/18 History amLODIPine [Norvasc] 10 mg PO DAILY 06/04/18 07/01/18 History levETIRAcetam [Keppra] 500 mg PO Q12HR 06/04/18 07/01/18 History prednisoLONE ACETATE [Pred Forte 1 drop LEFT EYE DAILY 06/04/18 07/01/18 History 1%] Atorvastatin [Lipitor] 40 mg PO HS #90 tab 06/07/18 07/01/18 Rx Clopidogrel [Plavix] 75 mg PO DAILY #90 tab 06/07/18 07/01/18 Rx Nitroglycerin Sl Tabs [Nitrostat] 0.4 mg SUBLINGUAL Q5M PRN #14 tab 06/07/18 07/01/18 Rx Aspirin 81 mg PO DAILY chew 06/11/18 07/01/18 Rx Omeprazole [PriLOSEC] 20 mg PO BID #60 capsule. 06/13/18 07/01/18 Rx Sodium Chloride 5% Ophth Soln 1 drops RIGHT EYE MOFR 06/26/18 07/01/18 History [Amanda 128] Triamcinolone 0.1% Ointment 1 applic TOPICAL BID 06/26/18 07/01/18 History [Kenalog 0.1% Ointment] buPROPion SR [Wellbutrin Sr] 100 mg PO DAILY 06/26/18 07/01/18 History Allergies Allergy/AdvReac Type Severity Reaction Status Date / Time Latex, Natural Rubber Allergy Itching Verified 07/01/18 13:25 sulfamethoxazole Allergy Rash/Hives Verified 07/01/18 13:25 [From Bactrim] trimethoprim [From Bactrim] Allergy Rash/Hives Verified 07/01/18 13:25 Physical Exam Vitals: Vital Signs Temp Pulse Pulse Pulse Resp BP BP 07/01/18 15:42 98.5 F 62 17 186/71 07/01/18 14:23 98.3 F 61 18 175/61 07/01/18 13:52 60 18 196/73 07/01/18 12:30 60 18 134/87 07/01/18 12:24 60 07/01/18 12:19 98.3 F 62 18 134/87 Pulse Ox 07/01/18 15:42 97 07/01/18 14:23 99 07/01/18 13:52 95 07/01/18 12:30 98 07/01/18 12:24 07/01/18 12:19 95 Intake and Output 07/01/18 07/01/18 07/01/18 06:59 14:59 22:59 Other: Weight 87.09 kg GENERAL EXAM: Alert, active, comfortable in no apparent distress. HEAD: Normocephalic/atraumatic. EYES: Normal reaction of pupils, equal size. Conjunctiva pink, sclera white. NOSE: Clear with pink turbinates. THROAT: No erythema or exudates. NECK: No masses, no JVD, no thyroid enlargement, no adenopathy. CHEST: No chest wall deformity. Symmetrical expansion. LUNGS: Equal air entry with no crackles, wheeze, rhonchi or dullness. CVS: Regular rate and rhythm, normal S1 and S2, no gallops, no murmurs, no rubs ABDOMEN: Soft, nontender. No hepatosplenomegaly, normal bowel sounds, no guarding or rigidity. EXTREMITIES: No clubbing, no edema, no cyanosis, 2+ pulses and upper and lower extremities. MUSCULOSKELETAL: Muscle strength and tone normal. SPINE: No scoliosis or deformity SKIN: No rashes CENTRAL NERVOUS SYSTEM: Alert and oriented -3. No focal deficits, tone is normal in all 4 extremities. PSYCHIATRIC: Alert and oriented -3. Appropriate affect. Intact judgment and insight. Results - Laboratory Findings CBC and BMP: 07/01/18 12:32 07/01/18 12:32 PT/INR, D-dimer PT 10.3 sec (9.0-12.0) 07/01/18 12:32 INR 1.0 (<1.2) 07/01/18 12:32 D-Dimer 0.52 mg/L FEU (<0.60) 07/01/18 12:32 Abnormal lab findings: Abnormal Labs 07/01/18 07/01/18 12:32 16:55 Carbon Dioxide 31 H BUN 27 H Creatinine 1.37 H Glucose 158 H POC Glucose (mg/dL) 116 H - Diagnostic Findings Chest x-ray: report reviewed Additional studies: EKG reviewed Assessment and Plan Plan: Assessment: #1. Chest pain, patient presented with chest tightness, mild dyspnea. Chest discomfort radiated to the left arm, EKG showed T-wave inversion in the inferior and anterolateral leads #2. Recent hospitalization for MRSA urinary tract infection, patient course of doxycycline #3. Recent GI bleeding, patient underwent EGD which showed erosive gastritis without active bleeding #4. Paroxysmal atrial fibrillation, not on chronic anticoagulation due to history of intracranial hemorrhage #5. Recent coronary artery stenting of the LAD on 06/06/2018 #6. Chronic bronchial asthma, stable #7. Hypertension, hyperlipidemia #8. Diabetes mellitus #9. Lifetime nonsmoker #10. Depression #11. Poor baseline functional performance, and medical debility #12. Chronic congestive heart failure, with diastolic dysfunction Plan: Chest x-ray was reviewed with Dr. Owens and showed no acute process. Patient's asthma is stable, no cough, no wheezing, no shortness of breath, signs are stable, cardiac evaluation is pending, patient is on heparin drip. Range treatments on an as-needed basis, continue to follow I performed a history & physical examination of the patient and discussed their management with my nurse practitioner, Suzie Mittal. I reviewed the nurse practitioner's note and agree with the documented findings and plan of care. Lung sounds are positive for clear breath sounds. The findings and the impression was discussed with the patient. I attest to the documentation by the nurse practitioner. Time with Patient: Greater than 30
[2018-07-01] MEDS: INSULIN ASPART (NovoLOG) 100 UNIT/ML VIAL SQ SCH ×2 (18:15→19:56)
[2018-07-01] MEDS: POTASSIUM CHLORIDE 8 MEQ PO SCH (18:21)
[2018-07-01] MEDS: SERTRALINE 50 MG TAB PO SCH (18:22)
[2018-07-01] MEDS: prednisoLONE ACETATE 1% OPHTH DROPS 5 ML BTL LEFT EYE SCH (18:22)
[2018-07-01] MEDS: FERROUS SULFATE 325 MG TAB PO SCH (18:22)
[2018-07-01] MEDS: PANTOPRAZOLE 40 MG TABLET PO SCH (18:22)
[2018-07-01] MEDS: DICYCLOMINE 10 MG CAP PO SCH (18:22)
[2018-07-01] MEDS: buPROPion SR 100 MG TABLET.ER PO SCH (18:22)
[2018-07-01] MEDS: levETIRAcetam 500 MG TAB PO SCH (19:50)
[2018-07-01] MEDS: GABAPENTIN 300 MG CAP PO SCH (19:50)
[2018-07-01] MEDS: ATORVASTATIN 40 MG TAB PO SCH (19:50)
[2018-07-01] MEDS: TRIAMCINOLONE ACET 0.1% OINTMENT 15 GM TUBE TOPICAL SCH (19:51)
[2018-07-01 19:57] LABS: Glucose,Whole Blood 111 mg/dL (75-99)
[2018-07-01] MEDS: INSULIN DETEMIR (LEVEMIR) 100 UNIT/ML SYR SQ SCH (19:57)
[2018-07-01] MEDS ORDERED: METOPROLOL TARTRATE 25 MG TAB PO SCH (21:00)
--- NOTE | 2018-07-01 23:19 | HP ---
HISTORY AND PHYSICAL DATE OF ADMISSION: 07/01/2018 DATE OF SERVICE: 07/01/2018 PRESENTING COMPLAINT: Chest pain. HISTORY OF PRESENTING COMPLAINT: This is a 72-year-old patient who follows with Dr. Willingham and presents with chest pain. Chronic stable medical conditions include congestive heart failure from diastolic dysfunction, sick sinus syndrome with a pacemaker, diabetes, hypertension, osteoarthritis, depression, coronary artery disease with stent, history of intracranial bleed following tumor being removed, chronic kidney disease. The patient presented with episode of heaviness across the chest, lasted for a good half an HR, short of breath. The pain did not radiate to the neck or arm. There was no dizziness. No lightheadedness, subsided on its own. The patient is admitted for further workup. Started on IV heparin. REVIEW OF SYSTEMS: CONSTITUTIONAL: None. HEENT: Slightly decreased hearing. RESPIRATORY: None. CARDIOVASCULAR: As above. GASTROINTESTINAL: None. GENITOURINARY: None. MUSCULOSKELETAL: Arthritic pain in joints. DERMATOLOGICAL: None. HEMATOLOGICAL: None. LYMPHATICS: None. PSYCHIATRIC: A bit anxious. NEUROLOGICAL: Does use a walker. PAST MEDICAL HISTORY: Congestive heart failure, diastolic dysfunction, sick sinus syndrome with a pacemaker, diabetes, hypertension, osteoarthritis, depression, atrial fibrillation, hypertension, coronary artery disease with stent, brain mass with surgery, had intracranial bleed and seizures for a short time after that. Chronic kidney disease. PAST SURGICAL HISTORY: Cholecystectomy, cardiac cath with stent, hysterectomy, pacemaker, evacuation of intracranial hematoma with resection of hemorrhagic mass, pacemaker in April 2016, angioplasty stent, right coronal implant with cataract removal, skin cancer removed. Pacemaker in 2016. PSYCH HISTORY: Depression. SOCIAL HISTORY: No smoking, no alcohol. Lives with son and [id number]. Uses a walker. FAMILY HISTORY: COPD, hypertension. Mother had bone cancer. HOME MEDICATIONS: Home medications: 1. Prednisone Forte 1% 1 drop left eye. 2. Keppra 500 mg q.12. 3. Hydralazine 50 mg t.i.d.. 4. Wellbutrin SR 100 mg p.o. daily. 5. Norvasc 10 mg p.o. daily. 6. Kenalog 0.1% topical b.i.d. 7. Sodium chloride 5% 1 drop right eye Saturday and Saturday. 8. Zoloft 150 mg a day. 9. Klor-Con 8 mEq a day. 10.Prilosec 20 mg p.o. b.i.d. 11.Nitrostat 0.4 sublingual q.5 p.r.n. 12.Labetalol 100 mg q.12. 13.Lantus 56 units subcu q.h.s. 14.Neurontin 300 mg b.i.d. 15.Lasix 40 mg p.o. daily. 16.Iron 325 p.o. daily. 17.Bentyl 10 mg a.c. t.i.d. 18.Plavix 75 mg p.o. daily. 19.Calcium 5 mg p.o. daily. 20.Lipitor 40 mg q.h.s. 21.Aspirin 81 mg p.o. daily. 22.Ventolin HFA 1 or 2 puffs q.6 p.r.n. ALLERGIES: TO LATEX, BACTRIM. PHYSICAL EXAMINATION: VITAL SIGNS: On examination vital signs on presentation: Temperature 98.3, pulse 72, respiration 18, blood pressure 134/87, pulse ox 95% on room air. GENERAL APPEARANCE: BMI 32. Lying in bed a bit tired-appearing. EYES: Pupils equal. Conjunctivae normal. HEENT: External appearance of nose and ears normal. Oral cavity normal. NECK: JVD not raised. Mass not palpable. RESPIRATORY effort normal. LUNGS: Decreased breath sounds. CARDIOVASCULAR: First and second sounds normal. No edema. ABDOMEN: Soft, nontender. Liver and spleen not palpable. LYMPHATICS: No lymph nodes palpable in the neck and axilla. PSYCHIATRY: Alert and oriented x3. Mood and affect a bit anxious-appearing. NEUROLOGICAL: Pupils equal. Cranial nerves grossly intact. Power and sensation grossly intact. MUSCULOSKELETAL: Evidence of osteoarthritis especially in the hands and knees. INVESTIGATIONS: White count 8.5, hemoglobin 12.9, platelets 212. Potassium 4.6, BUN 27, creatinine 1.37, troponin 0.014, 0.015. ProBNP 3970. EKG tracing personally reviewed by me shows atrial paced rhythm with some ST-segment changes. Chest x-ray film personally reviewed by me shows a pacemaker, prominent mediastinum. Chest x-ray reported diffuse osteopenia, hyperinflation, nil acute per report. ASSESSMENT: 1. Possible unstable angina in a patient with known coronary artery disease. 2. Chronic congestive heart failure from diastolic dysfunction. 3. Permanent pacemaker with underlying sick sinus syndrome. 4. Diabetes mellitus type 2, chronically on insulin. 5. Essential hypertension. 6. Primary osteoarthritis. 7. History of atrial fibrillation. 8. Coronary artery disease with stent. 9. Essential hypertension. 10.Chronic kidney disease stage 3 probably from nephrosclerosis. 11.History of intracranial bleed following with a brain mass and seizures following that. PLAN: Home medications are resumed. Serial cardiac enzymes in place. Cardiology was consulted. Care was discussed with the patient. Questions were answered. Copy to Dr. Willingham. CHELSEA / CARIE: [id number] /
[2018-07-02 00:41] LABS: Hemoglobin A1C 6.5 % (4.0-6.0)
[2018-07-02 05:41] LABS: Mean Platelet Volume 7.8; Platelet Count 154 k/uL (150-450)
[2018-07-02 06:46] LABS: Glucose,Whole Blood 158 mg/dL (75-99)
[2018-07-02 07:32] VITALS: RESP 18
[2018-07-02] MEDS ORDERED: CAFFEINE CITRATE 60 MG/3 ML VIAL IV PRN (08:03)
[2018-07-02] MEDS ORDERED: DIPYRIDAMOLE IV ONE (08:03)
[2018-07-02] MEDS ORDERED: AMINOPHYLLINE 500 MG/20 ML VIAL IV PRN (08:03)
[2018-07-02] MEDS ORDERED: SODIUM CHLORIDE 0.9% IV ONE (08:03)
[2018-07-02] MEDS ORDERED: ASPIRIN 325 MG TAB PO SCH (09:00)
[2018-07-02] MEDS ORDERED: ATORVASTATIN 80 MG TAB PO SCH (09:00)
[2018-07-02] MEDS: hydrALAZINE HCL 50 MG TAB PO SCH (09:04)
--- NOTE | 2018-07-02 09:35 | P.CRDCN ---
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 She follows in the office with Dr. Hawk. We have this year in consultation secondary to chest discomfort. She states yesterday after waking up she felt a pressure tight sensation in the anterior chest wall associated with shortness of breath and nauseous. Her symptoms are rather persistent PAIN yesterday and persisted until after she came to the emergency department. She states ultimately in the early evening the symptoms subsided with no specific alleviating factor. She states her breathing seemed to improve after receiving an inhaler. She has any further symptoms of chest discomfort since arriving at the hospital. These symptoms feel similar in nature of the pain to her event in early June but this time the intensity of the tightness is worse. She has no palpitations, vomiting, diaphoresis or dizziness. She is seen and examined resting comfortably laying flat in bed in no acute distress. EKG reveals sinus mechanism with T-wave inversion in the precordial leads and ST abnormalities in no acute changes. Compared to old EKGs this is chronic. Chest x-ray is negative for an acute cardiopulmonary process with underlying hyperinflations suggestive of COPD. Laboratory data reviewed, cardiac enzymes negative 3, WBC 8.5, hemoglobin 12.9, platelets 212, d-dimer 0.52, sodium 143, potassium 4.6, creatinine 1.37 with a GFR 38, NT proBNP chronically elevated at 3970. Current cardiac medications include aspirin 81 mg daily, atorvastatin 40 mg daily, Plavix 75 mg daily, Lasix 40 mg daily, labetalol 100 mg twice a day, amlodipine 10 mg daily and hydralazine 50 mg 3 times a day. Most recent echocardiogram obtained June 05 2018 reveals preserved left ventricular systolic function with ejection fraction 55-60%, mild aortic valve sclerosis, mild aortic regurgitation, mild mitral regurgitation and mild tric uspid regurgitation. At the time of my exam: CONSTITUTIONAL: Denies fever. Denies chills. EYES: Denies blurred vision. Denies vision changes. Denies eye pain. EARS, NOSE, MOUTH & THROAT: Denies headache. Denies sore throat. Denies ear pain. CARDIOVASCULAR: Denies chest pain. Denies shortness of breath. Denies orthopnea. Denies PND. Denies palpitations. RESPIRATORY: Denies cough. GASTROINTESTINAL: Denies abdominal pain. Denies diarrhea. Denies constipation. Denies nausea. Denies vomiting. MUSCULOSKELETAL: Denies myalgias. INTEGUMENTARY: Denies pruitis. Denies rash. NEUROLOGIC: Denies numbness. Denies tingling. Denies weakness. PSYCHIATRIC: Denies anxiety. Denies depression. ENDOCRINE: Denies fatigue. Denies weight change. Denies polydipsia. Denies polyurina. GENITOURINARY: Denies burning, hematuria or urgency with micturation. HEMATOLOGIC: Denies history of anemia. Denies bleeding. Blood pressure 163/79 heart rate 61 afebrile maintaining oxygen saturation on nasal cannula GENERAL: This is a 72-year-old female in no apparent distress at the time of my examination. HEENT: Head is atraumatic, normocephalic. Pupils are equal, round. Sclerae anicteric. Conjunctivae are clear. Mucous membranes of the mouth are moist. Neck is supple. There is no jugular venous distention. No carotid bruit is heard. LUNGS: Clear to auscultation no wheezes, rales or rhonchi. No chest wall t enderness is noted on palpation or with deep breathing. HEART: Regular rate and rhythm with holosystolic murmur at the left sternal border, no rubs or gallops. S1 and S2 heard. ABDOMEN: Soft, nontender. Bowel sounds are heard. No organomegaly noted. EXTREMITIES: No evidence of peripheral edema and no calf tenderness noted. VASCULAR: Radial and dorsalis pedis pulses palpated, no evidence of clubbing. NEUROLOGIC: Patient is awake, alert and oriented x3. ASSESSMENT Chest pain, atypical for angina. Coronary artery disease s/p recent stent placement Paroxysmal atrial fibrillation not on hardware sales assistant anticoagulation secondary to recent CVA brain surgery Diabetes mellitus Chronic kidney disease Hypertension Dyslipidemia Sick sinus syndrome status post permanent pacemaker implantation PLAN An acute coronary event has been ruled out. Discontinue heparin infusion. Perform Persantine stress test to assess for reversible cardiac ischemia. If stress test is normal we will consider long-acting nitrate for the possibility of coronary spasm. Thank you kindly for this consultation. Nurse Practitioner note has been reviewed, I agree with a documented findings and plan of care. Patient was seen and examined. Past Medical History Past Medical History: Atrial Fibrillation, Asthma, Coronary Artery Disease (CAD), Cancer, Heart Failure, Diabetes Mellitus, Hypertension, Osteoarthritis (OA), Renal Disease Additional Past Medical History / Comment(s): Pt recently admitted to [facility] on 06/12/18 with gastritis, gastric erosion (lower GI bleed). 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 History of Any Multi-Drug Resistant Organisms: MRSA Date of last positivie culture/infection: 06/05/18 MDRO Source:: URINE Past Surgical History: Cholecystectomy, Heart Catheterization, Heart Catheterization With Stent, Hysterectomy, Pacemaker Additional Past Surgical History / Comment(s): Evacuation on intracranial hematoma and ressection of hemorrhagic mass, pacemaker 2016, PCI with stent 06/06/18, R eye corneal implant/cataract removal, EGD 06/2018, colonoscopy, skin cancer removal. Past Anesthesia/Blood Transfusion Reactions: No Reported Reaction Additional Past Anesthesia/Blood Transfusion Reaction / Comment(s): no previous blood transfusions Date of Last Stent Placement:: 06/06/18 Type of Cardiac Device: Permanent Pacemaker Device Placement Date:: 04/2016 Smoking Status: Never smoker - Past Family History Mother Family Medical History: Cancer, COPD, Hypertension Additional Family Medical History / Comment(s): Mother had bone cancer. Father Family Medical History: Cancer, Hypertension Additional Family Medical History / Comment(s): Father had skin cancer. Medications and Allergies Home Medications Medication Instructions Recorded Confirmed Type Sertraline [Zoloft] 150 mg PO DAILY 01/04/14 07/01/18 History Dicyclomine [Bentyl] 10 mg PO AC-TID 03/21/17 07/01/18 History Albuterol Inhaler [Ventolin Hfa 1 - 2 puff INHALATION RT-Q6H PRN 03/27/18 History Inhaler] Calcium Carbonate 500 mg PO DAILY 03/27/18 07/01/18 History Ferrous Sulfate [Iron (65 MG 325 mg PO DAILY 03/27/18 07/01/18 History Elemental)] Furosemide [Lasix] 40 mg PO DAILY 03/27/18 07/01/18 History Labetalol [Trandate] 100 mg PO Q12H 03/27/18 07/01/18 History Potassium Chloride [Klor-Con 8] 8 meq PO DAILY 03/27/18 07/01/18 History hydrALAZINE HCL 50 mg PO TID 03/27/18 07/01/18 History Acetaminophen Tab [Tylenol] 500 mg PO Q4-6H PRN 06/04/18 07/01/18 History Gabapentin [Neurontin] 300 mg PO BID 06/04/18 07/01/18 History Insulin Glargine [Lantus] 56 unit SQ HS 06/04/18 07/01/18 History amLODIPine [Norvasc] 10 mg PO DAILY 06/04/18 07/01/18 History levETIRAcetam [Keppra] 500 mg PO Q12HR 06/04/18 07/01/18 History prednisoLONE ACETATE [Pred Forte 1 drop LEFT EYE DAILY 06/04/18 07/01/18 History 1%] Atorvastatin [Lipitor] 40 mg PO HS #90 tab 06/07/18 07/01/18 Rx Clopidogrel [Plavix] 75 mg PO DAILY #90 tab 06/07/18 07/01/18 Rx Nitroglycerin Sl Tabs [Nitrostat] 0.4 mg SUBLINGUAL Q5M PRN #14 tab 06/07/18 07/01/18 Rx Aspirin 81 mg PO DAILY chew 06/11/18 07/01/18 Rx Omeprazole [PriLOSEC] 20 mg PO BID #60 capsule. 06/13/18 07/01/18 Rx Sodium Chloride 5% Ophth Soln 1 drops RIGHT EYE MOFR 06/26/18 07/01/18 History [Amanda 128] Triamcinolone 0.1% Ointment 1 applic TOPICAL BID 06/26/18 07/01/18 History [Kenalog 0.1% Ointment] buPROPion SR [Wellbutrin Sr] 100 mg PO DAILY 06/26/18 07/01/18 History Allergies Allergy/AdvReac Type Severity Reaction Status Date / Time Latex, Natural Rubber Allergy Itching Verified 07/01/18 13:25 sulfamethoxazole Allergy Rash/Hives Verified 07/01/18 13:25 [From Bactrim] trimethoprim [From Bactrim] Allergy Rash/Hives Verified 07/01/18 13:25 Physical Exam Vitals: Vital Signs Temp Pulse Pulse Pulse Resp BP BP 07/02/18 07:31 98.3 F 61 18 07/02/18 03:51 97.6 F 66 16 115/45 07/02/18 02:35 18 07/01/18 23:36 98.3 F 62 18 152/70 07/01/18 23:21 18 07/01/18 20:00 98.0 F 61 18 186/72 07/01/18 15:42 98.5 F 62 17 186/71 07/01/18 14:23 98.3 F 61 18 175/61 07/01/18 13:52 60 18 196/73 07/01/18 12:30 60 18 134/87 07/01/18 12:24 60 07/01/18 12:19 98.3 F 62 18 134/87 BP Pulse Ox 07/02/18 07:31 163/79 99 07/02/18 03:51 98 07/02/18 02:35 07/01/18 23:36 98 07/01/18 23:21 07/01/18 20:00 94 L 07/01/18 15:42 97 07/01/18 14:23 99 07/01/18 13:52 95 07/01/18 12:30 98 07/01/18 12:24 07/01/18 12:19 95 Intake and Output 07/01/18 07/02/18 07/02/18 22:59 06:59 14:59 Intake Total 72.667 87.072 Output Total 1 Balance 71.667 87.072 Intake: Intake, IV Titration 72.667 87.072 Amount Heparin Sod,Pork in 0.45% 72.667 87.072 NaCl 25,000 unit In 0.45 % NaCl 1 250ml.bag @ 11. 482 UNITS/KG/HR 10 mls/hr IV .Q24H [facility] Rx#: [id number] Output: Urine/Stool Mix 1 Other: Voiding Method Bedside Commode Bedside Commode Bedpan Bedpan # Voids 1 1 Results 07/02/18 04:08 07/01/18 12:32 Cardiac Enzymes 07/01/18 07/01/18 07/01/18 Range/Units 12:32 12:32 18:22 AST 15 (14-36) U/L Troponin I 0.014 0.015 (0.000-0.034) ng/mL 07/02/18 Range/Units 00:28 AST (14-36) U/L Troponin I 0.014 (0.000-0.034) ng/mL Coagulation 07/01/18 07/01/18 07/02/18 Range/Units 12:32 20:58 04:08 PT 10.3 (9.0-12.0) sec APTT 22.2 43.1 H 42.0 H (22.0-30.0) sec CBC 07/01/18 07/02/18 Range/Units 12:32 04:08 WBC 8.5 (3.8-10.6) k/uL RBC 4.54 (3.80-5.40) m/uL Hgb 12.9 (11.4-16.0) gm/dL Hct 39.5 (34.0-46.0) % Plt Count 212 154 (150-450) k/uL Comprehensive Metabolic Panel 07/01/18 Range/Units 12:32 Sodium 143 (137-145) mmol/L Potassium 4.6 (3.5-5.1) mmol/L Chloride 106 (98-107) mmol/L Carbon Dioxide 31 H (22-30) mmol/L BUN 27 H (7-17) mg/dL Creatinine 1.37 H (0.52-1.04) mg/dL Glucose 158 H (74-99) mg/dL Calcium 9.2 (8.4-10.2) mg/dL AST 15 (14-36) U/L ALT 23 (9-52) U/L Alkaline Phosphatase 93 (38-126) U/L Total Protein 6.3 (6.3-8.2) g/dL Albumin 4.1 (3.5-5.0) g/dL Current Medications Generic Name Dose Route Start Last Admin Trade Name Freq PRN Reason Stop Dose Admin Acetaminophen 500 mg 07/01/18 17:24 Tylenol Tab PO Q4H PRN Mild Pain Albuterol Sulfate 2.5 mg 07/01/18 17:24 Ventolin Nebulized INHALATION RT-Q6H PRN Shortness Of Breath Aminophylline 100 mg 07/02/18 08:03 Aminophylline IV ONCE PRN Patient Response Amlodipine Besylate 10 mg 07/01/18 14:45 07/01/18 16:15 Norvasc PO 10 mg DAILY [facility] Administration Aspirin 81 mg 07/02/18 09:00 Aspirin PO DAILY [facility] Atorvastatin Calcium 40 mg 07/01/18 21:00 07/01/18 19:50 Lipitor PO 40 mg HS [facility] Administration Bupropion HCl 100 mg 07/01/18 18:00 07/01/18 18:22 Wellbutrin Sr PO 100 mg DAILY [facility] Administration Caffeine Citrate 60 mg 07/02/18 08:03 Cafcit Inj IV 08/01/18 08:04 ONCE PRN Patient Response Calcium Carbonate/Glycine 500 mg 07/02/18 12:00 Tums PO DAILY@1200 [facility] Clopidogrel Bisulfate 75 mg 07/01/18 14:45 07/01/18 16:12 Plavix PO 75 mg DAILY [facility] Administration Dicyclomine HCl 10 mg 07/01/18 18:00 07/01/18 18:22 Bentyl PO 10 mg AC-TID [facility] Administration Ferrous Sulfate 325 mg 07/01/18 18:00 07/01/18 18:22 Feosol PO 325 mg DAILY [facility] Administration Furosemide 40 mg 07/01/18 14:45 07/01/18 16:12 Lasix PO 40 mg DAILY [facility] Administration Gabapentin 300 mg 07/01/18 21:00 07/01/18 19:50 Neurontin PO 300 mg BID [facility] Administration Heparin Sodium (Porcine) 0 unit 07/01/18 14:14 Heparin IV Q6HR PRN Low PTT Protocol Hydralazine HCl 50 mg 07/01/18 16:00 07/02/18 09:04 Apresoline PO 50 mg TID [facility] Administration Insulin Aspart 0 unit 07/01/18 18:00 07/01/18 19:56 Novolog SQ Not Given ACHS [facility] Protocol Insulin Detemir 45 unit 07/01/18 21:00 07/01/18 19:57 Levemir SQ Not Given HS [facility] Labetalol HCl 100 mg 07/01/18 14:45 07/01/18 19:51 Trandate PO 100 mg Q12HR [facility] Administration Levetiracetam 500 mg 07/01/18 21:00 07/01/18 19:50 Keppra PO 500 mg Q12HR [facility] Administration Nitroglycerin 0.4 mg 07/01/18 14:14 Nitrostat SUBLINGUAL Q5M PRN Chest Pain Non-Formulary Medication 8 meq 07/01/18 17:30 07/01/18 18:21 Potassium Chloride [Klor-Con 8] PO Not Given DAILY [facility] Pantoprazole Sodium 40 mg 07/01/18 18:00 07/01/18 18:22 Protonix PO 40 mg AC-BRKFST [facility] Administration Prednisolone Acetate 1 drops 07/01/18 18:00 07/01/18 18:22 Pred Forte 1% LEFT EYE 1 drops DAILY [facility] Administration Sertraline HCl 150 mg 07/01/18 18:00 07/01/18 18:22 Zoloft PO 150 mg DAILY [facility] Administration Sodium Chloride 1 drops 07/04/18 09:00 Amanda 128 RIGHT EYE [id number] [facility] Triamcinolone Acetonide 1 applic 07/01/18 21:00 07/01/18 19:51 Kenalog TOPICAL 1 applic BID [facility] Administration Intake and Output 07/01/18 07/02/18 07/02/18 22:59 06:59 14:59 Intake Total 72.667 87.072 Output Total 1 Balance 71.667 87.072 Intake: Intake, IV Titration 72.667 87.072 Amount Heparin Sod,Pork in 0.45% 72.667 87.072 NaCl 25,000 unit In 0.45 % NaCl 1 250ml.bag @ 11. 482 UNITS/KG/HR 10 mls/hr IV .Q24H [facility] Rx#: [id number] Output: Urine/Stool Mix 1 Other: Voiding Method Bedside Commode Bedside Commode Bedpan Bedpan # Voids 1 1 07/02/18 04:08 07/01/18 12:32
--- NOTE | 2018-07-02 12:09 | EST ---
EXERCISE STRESS AGE: 72 SEX: F HT: 5'5" WT: 192 PROTOCOL: Persantine Cardiolite Stress Test HEART RATE REST: 60 BLOOD PRESSURE REST: 102/50 MAXIMUM HEART RATE ACHIEVED: 63 MAXIMUM BLOOD PRESSURE: 213/54 INDICATIONS: Chest pain. A 72-year-old female with a history of coronary artery disease, presenting with chest pain and abnormal ECG. CLINICAL INFORMATION: Baseline heart rate 60 beats per minute. Baseline blood pressure 102/50 mmHg. Baseline 12-lead ECG shows atrial paced rhythm with [address]-depression with deep T-wave inversion symmetric. The patient received Lexiscan infusion per protocol. There were no new ECG changes or no progression of the EKG changes. Heart rate remained stable. Blood pressure was elevated up to 213/54 mmHg, but she remained asymptomatic. Nuclear portion will be reported separately. MMODL / IJN: [id number] /
[2018-07-02 12:17] LABS: Glucose,Whole Blood 186 mg/dL (75-99)
[2018-07-02] MEDS: POTASSIUM CHLORIDE 8 MEQ PO SCH (12:42)
[2018-07-02] MEDS: CALCIUM CARBONATE 500 MG CHEWABLE PO SCH (12:49)
[2018-07-02] MEDS: ASPIRIN 81 MG PO SCH (12:49)
[2018-07-02] MEDS: GABAPENTIN 300 MG CAP PO SCH ×2 (12:49→20:54)
[2018-07-02] MEDS: INSULIN ASPART (NovoLOG) 100 UNIT/ML VIAL SQ SCH ×4 (12:49→20:53)
[2018-07-02] MEDS: PANTOPRAZOLE 40 MG TABLET PO SCH (12:49)
[2018-07-02] MEDS: SERTRALINE 50 MG TAB PO SCH (12:49)
[2018-07-02] MEDS: DICYCLOMINE 10 MG CAP PO SCH ×3 (12:50→17:18)
[2018-07-02] MEDS: LABETALOL 100 MG TAB PO SCH ×2 (12:50→20:55)
[2018-07-02] MEDS: FERROUS SULFATE 325 MG TAB PO SCH (12:50)
[2018-07-02] MEDS: CLOPIDOGREL 75 MG TAB PO SCH (12:50)
[2018-07-02] MEDS: FUROSEMIDE 40 MG TAB PO SCH (12:50)
[2018-07-02] MEDS: amLODIPine 10 MG TAB PO SCH (12:50)
[2018-07-02] MEDS: buPROPion SR 100 MG TABLET.ER PO SCH (12:50)
[2018-07-02] MEDS: levETIRAcetam 500 MG TAB PO SCH ×2 (12:51→21:01)
[2018-07-02] MEDS: prednisoLONE ACETATE 1% OPHTH DROPS 5 ML BTL LEFT EYE SCH (12:51)
[2018-07-02] MEDS: TRIAMCINOLONE ACET 0.1% OINTMENT 15 GM TUBE TOPICAL SCH ×2 (12:52→20:54)
[2018-07-02] MEDS: ACETAMINOPHEN TAB 500 MG TAB PO PRN ×2 (12:58→18:04)
--- NOTE | 2018-07-02 13:07 | NM ---
EXAMINATION TYPE: NM stress persantine cardiolit DATE OF EXAM: 07/02/2018 COMPARISON: NONE HISTORY: None TECHNIQUE: After the intravenous administration of 9.9 mCi Tc 99m Sestamibi - Cardiolite resting SPE CT images acquired 45 minutes post injection. The patient received 49.6 mg Persantine, 25 mCi Tc 99m Sestamibi - Stress images obtained 30 minutes post injection FINDINGS: Review of stress and rest SPECT images demonstrates fixed perfusion defect involving the inferior and inferolateral portion of the myocardium.. Gated analysis shows normal wall motion with an estimated left ventricular ejection fraction of 47 %. IMPRESSION: There is a fixed area of defect involving the inferior and inferoapical myocardium. A sma ll area of stress-induced reversible ischemia not excluded correlate clinically.
[2018-07-02] MEDS ORDERED: hydrALAZINE HCL 25 MG TAB PO STA (14:42)
[2018-07-02 16:32] LABS: Glucose,Whole Blood 136 mg/dL (75-99)
[2018-07-02] MEDS: hydrALAZINE HCL 25 MG TAB PO SCH (17:18)
--- NOTE | 2018-07-02 17:47 | P.PN ---
Subjective Progress Note Date: 07/02/18 Principal diagnosis: Chest pain, dyspnea This is a 72-year-old white female patient with multiple comorbidities including chronic atrial fibrillation, history of intracranial mass with hemorrhage status post resection, chronic kidney disease, type 2 diabetes, hypertension, chronic congestive heart failure with diastolic dysfunction, chronic bronchial asthma, coronary artery disease with history of stenting of the LAD on 06/06/2018, permanent pacemaker implantation for sick sinus syndrome, recent hospitalization for MRSA urinary tract infection, GI bleeding. Patient underwent EGD during that admission which revealed erosive gastritis, without active signs of bleeding. Prior to discharge patient's aspirin was reduced to 81 mg daily, she continued on Plavix for history of recent stenting. On 07/01/2018 patient was brought into the emergency department by an ambulance for complaints of chest tightness, and patient describes her discomfort under her left breast, she s tates she woke up with the pain in her chest, it lasted about an hour, and she did have some discomfort in her left arm and mild dyspnea. Denied any diaphoresis, did have an episode of nausea in the emergency department, no emesis. When her [id number] arrived home she gave her 1 sublingual nitro, and called 911, when EMS arrived patient received 2 more sublingual nitros with some relief in her chest discomfort. Was given 4 baby aspirins en route to the hospital. From pulmonary perspective patient states she did not have any significant illness of breath, no cough or chest congestion, wheezing, no fever or chills. Her asthma has been stable. Chest x-ray showed no acute process, no focal infiltrates, no pleural effusions, no pneumothorax. EKG showed atrial paced rhythm, with T-wave inversion in the inferior leads, was anterolateral leads. Repeat EKG did not show any change. Lab work showed white blood cell count of 8.5, hemoglobin of 12.9, d-dimer was within normal limits at 0.52, sodium was 143, potassium is 4.6, chloride was 106, CO2 was 31, BUN was 27, creatinine was 1.37. Troponin was negative 1, proBNP was elevated at 3970. On 07/02/2018 patient seen in follow-up on observation unit, he she is resting quietly in bed, in no acute distress, no shortness of breath, patient's left- sided chest pain has resolved, but she does have right-sided chest wall discomfort which is reproducible, and apparently patient had fallen at home. Patient had a Persantine stress test today, and there were no new ECG changes, patient did become hypertensive with a blood pressure of 213 and 54, but she was asymptomatic, did not have any chest pain. The nuclear portion showed a fixed area of the defect involving the inferior and inferoapical myocardium, small area of stress-induced reversible ischemia was not excluded. From pulmonary perspective she stable, and she denies any dyspnea, rare pulse ox 96%, lung sounds are clear, patient is afebrile. Objective - Vital Signs Vital signs: Vital Signs Temp 98.2 F 07/02/18 15:10 Pulse 64 07/02/18 15:10 Resp 18 07/02/18 15:10 BP 181/84 07/02/18 15:10 Pulse Ox 96 07/02/18 16:56 Intake & Output 07/01/18 07/02/18 07/02/18 18:59 06:59 18:59 Intake Total 159.739 236 Output Total 1 Balance -1 159.739 236 Weight 87.09 kg 87.09 kg Intake: Intake, IV Titration 159.739 Amount Heparin Sod,Pork in 0.45% 159.739 NaCl 25,000 unit In 0.45 % NaCl 1 250ml.bag @ 11. 482 UNITS/KG/HR 10 mls/hr IV .Q24H [facility] Rx#: [id number] Oral 236 Output: Urine/Stool Mix 1 Other: Voiding Method Bedside Commode Bedside Commode Bedside Commode Bedpan Bedpan Bedpan # Voids 1 1 - Exam GENERAL EXAM: Alert, active, comfortable in no apparent distress. HEAD: Normocephalic/atraumatic. EYES: Normal reaction of pupils, equal size. Conjunctiva pink, sclera white. NOSE: Clear with pink turbinates. THROAT: No erythema or exudates. NECK: No masses, no JVD, no thyroid enlargement, no adenopathy. CHEST: No chest wall deformity. Symmetrical expansion. LUNGS: Equal air entry with no crackles, wheeze, rhonchi or dullness. CVS: Regular rate and rhythm, normal S1 and S2, no gallops, no murmurs, no rubs ABDOMEN: Soft, nontender. No hepatosplenomegaly, normal bowel sounds, no guarding or rigidity. EXTREMITIES: No clubbing, no edema, no cyanosis, 2+ pulses and upper and lower extremities. MUSCULOSKELETAL: Muscle strength and tone normal. SPINE: No scoliosis or deformity SKIN: No rashes CENTRAL NERVOUS SYSTEM: Alert and oriented -3. No focal deficits, tone is normal in all 4 extremities. PSYCHIATRIC: Alert and oriented -3. Appropriate affect. Intact judgment and insight. - Labs CBC & Chem 7: 07/02/18 04:08 07/01/18 12:32 Labs: Abnormal Lab Results - Last 24 Hours (Table) 07/01/18 07/01/18 07/01/18 Range/Units 18:22 19:55 20:58 APTT 43.1 H (22.0-30.0) sec POC Glucose (mg/dL) 111 H (75-99) mg/dL Hemoglobin A1c 6.5 H (4.0-6.0) % 07/02/18 07/02/18 07/02/18 Range/Units 04:08 06:42 12:05 APTT 42.0 H (22.0-30.0) sec POC Glucose (mg/dL) 158 H 186 H (75-99) mg/dL Hemoglobin A1c (4.0-6.0) % 07/02/18 Range/Units 16:29 APTT (22.0-30.0) sec POC Glucose (mg/dL) 136 H (75-99) mg/dL Hemoglobin A1c (4.0-6.0) % Assessment and Plan Plan: Assessment: #1. Chest pain, patient presented with chest tightness, mild dyspnea. Chest discomfort radiated to the left arm, EKG showed T-wave inversion in the inferior and anterolateral leads #2. Recent hospitalization for MRSA urinary tract infection, patient course of doxycycline #3. Recent GI bleeding, patient underwent EGD which showed erosive gastritis without active bleeding #4. Paroxysmal atrial fibrillation, not on chronic anticoagulation due to his tory of intracranial hemorrhage #5. Recent coronary artery stenting of the LAD on 06/06/2018 #6. Chronic bronchial asthma, stable #7. Hypertension, hyperlipidemia #8. Diabetes mellitus #9. Lifetime nonsmoker #10. Depression #11. Poor baseline functional performance, and medical debility #12. Chronic congestive heart failure, with diastolic dysfunction Plan: Patient is stable from pulmonary perspective, her asthma is stable, we'll continue to follow on as-needed basis, patient is undergoing cardiac evaluation, and today's exam her left-sided chest pain has resolved, vital signs are stable, stress test results have been noted. I performed a history & physical examination of the patient and discussed their management with my nurse practitioner, Suzie Mittal. I reviewed the nurse practitioner's note and agree with the documented findings and plan of care. Lung sounds are positive for clear breath sounds. The findings and the impression was discussed with the patient. I attest to the documentation by the nurse practitioner. Time with Patient: Less than 30
[2018-07-02 20:33] LABS: Glucose,Whole Blood 178 mg/dL (75-99)
[2018-07-02] MEDS: INSULIN DETEMIR (LEVEMIR) 100 UNIT/ML SYR SQ SCH (20:55)
[2018-07-02] MEDS: ATORVASTATIN 40 MG TAB PO SCH (20:55)
--- NOTE | 2018-07-02 22:45 | P.PN ---
Subjective Progress Note Date: 07/02/18 Principal diagnosis: Chest pain Patient is a 72-year-old female with a known history of CHF with diastolic dysfunction, sick sinus syndrome status post pacemaker placement hypertension, diabetes type 2, osteoarthritis depression, coronary artery disease with history of stent placement intracranial bleed following tumor removal, chronic kidney disease came to ER with complaints of chest heaviness across the chest associated with shortness of breath. Symptoms lasted about half an hour. Denied radiation. No complaints of dizziness or lightheadedness. Patient was admitted to the hospital for cardiology evaluation. 07/02/2018 Patient is currently awake and oriented 3. No complaints of chest pain or tightness. No shortness of breath. Chest pain has resolved. Patient underwent Persantine stress test today with no new EKG changes noted. The nuclear portion showed fixed in the area of the defect involving the inferior and infero-apical myocardium, small area of stress-induced reversible ischemia was not excluded. Cardiology is following. Otherwise no complaints of headache or dizziness. No nausea vomiting or diarrhea. Hemodynamically stable. Current medications reviewed. Objective - Vital Signs Vital signs: Vital Signs Temp 98.2 F 07/02/18 15:10 Pulse 64 07/02/18 15:10 Resp 18 07/02/18 15:10 BP 181/84 07/02/18 15:10 Pulse Ox 96 07/02/18 15:10 Intake & Output 07/01/18 07/02/18 07/02/18 18:59 06:59 18:59 Intake Total 159.739 236 Output Total 1 Balance -1 159.739 236 Weight 87.09 kg 87.09 kg Intake: Intake, IV Titration 159.739 Amount Heparin Sod,Pork in 0.45% 159.739 NaCl 25,000 unit In 0.45 % NaCl 1 250ml.bag @ 11. 482 UNITS/KG/HR 10 mls/hr IV .Q24H [facility] Rx#: [id number] Oral 236 Output: Urine/Stool Mix 1 Other: Voiding Method Bedside Commode Bedside Commode Bedside Commode Bedpan Bedpan Bedpan # Voids 1 1 - Exam GENERAL EXAM: Alert, active, comfortable in no apparent distress. HEAD: Normocephalic/atraumatic. EYES: Normal reaction of pupils, equal size. Conjunctiva pink, sclera white. NOSE: Clear with pink turbinates. THROAT: No erythema or exudates. NECK: No masses, no JVD, no thyroid enlargement, no adenopathy. CHEST: No chest wall deformity. Symmetrical expansion. LUNGS: Equal air entry with no crackles, wheeze, rhonchi or dullness. CVS: Regular rate and rhythm, normal S1 and S2, no gallops, no murmurs, no rubs ABDOMEN: Soft, nontender. No hepatosplenomegaly, normal bowel sounds, no g uarding or rigidity. EXTREMITIES: No clubbing, no edema, no cyanosis, 2+ pulses and upper and lower extremities. MUSCULOSKELETAL: Muscle strength and tone normal. SPINE: No scoliosis or deformity SKIN: No rashes CENTRAL NERVOUS SYSTEM: Alert and oriented -3. No focal deficits, tone is normal in all 4 extremities. PSYCHIATRIC: Alert and oriented -3. Appropriate affect. Intact judgment and insight. - Labs CBC & Chem 7: 07/02/18 04:08 07/01/18 12:32 Labs: Abnormal Lab Results - Last 24 Hours (Table) 07/01/18 07/01/18 07/01/18 Range/Units 16:55 18:22 19:55 APTT (22.0-30.0) sec POC Glucose (mg/dL) 116 H 111 H (75-99) mg/dL Hemoglobin A1c 6.5 H (4.0-6.0) % 07/01/18 07/02/18 07/02/18 Range/Units 20:58 04:08 06:42 APTT 43.1 H 42.0 H (22.0-30.0) sec POC Glucose (mg/dL) 158 H (75-99) mg/dL Hemoglobin A1c (4.0-6.0) % 07/02/18 Range/Units 12:05 APTT (22.0-30.0) sec POC Glucose (mg/dL) 186 H (75-99) mg/dL Hemoglobin A1c (4.0-6.0) % Assessment and Plan Assessment: -Chest tightness with shortness of breath. Ruled out acute coronary syndrome. EKG showed T-wave inversion in the inferior and anterolateral leads. Status persantine and stress test-negative for inducible ischemia. - Chronic CHF with diastolic dysfunction -Recent MRSA urinary tract infection was on doxycycline -Reason GI bleed status post EGD showed erosive gastritis without active bleeding -Paroxysmal atrial fibrillation not on anticoagulation due to history of intracranial hemorrhage. -Recent coronary artery disease status post stent placement to LAD on 06/06/2018 -Chronic bronchial asthma -Hypertension -Hyperlipidemia- -diabetes type 2 -Depression - Medical debility and poor baseline functional status -DVT prophylaxis Plan: Patient will be continued on telemetry monitoring. Continue with aspirin statins, Plavix, beta blockers and other home blood pressure medications. Continue with PPI and breathing treatments as needed. Cardiology and pulmonary is following. Further recommendations based on the clinical course. Anticipate discharge tomorrow with marked clinical improvement. Time with Patient: Greater than 30
[2018-07-03] MEDS: hydrALAZINE HCL 25 MG TAB PO SCH ×3 (00:59→17:19)
[2018-07-03 06:50] LABS: Glucose,Whole Blood 137 mg/dL (75-99)
[2018-07-03] MEDS: CLOPIDOGREL 75 MG TAB PO SCH (07:44)
[2018-07-03] MEDS: amLODIPine 10 MG TAB PO SCH (07:44)
[2018-07-03] MEDS: levETIRAcetam 500 MG TAB PO SCH (07:44)
[2018-07-03] MEDS: FERROUS SULFATE 325 MG TAB PO SCH (07:44)
[2018-07-03] MEDS: PANTOPRAZOLE 40 MG TABLET PO SCH (07:44)
[2018-07-03] MEDS: FUROSEMIDE 40 MG TAB PO SCH (07:44)
[2018-07-03] MEDS: GABAPENTIN 300 MG CAP PO SCH (07:44)
[2018-07-03] MEDS: DICYCLOMINE 10 MG CAP PO SCH ×3 (07:45→17:19)
[2018-07-03] MEDS: buPROPion SR 100 MG TABLET.ER PO SCH (07:45)
[2018-07-03] MEDS: ASPIRIN 81 MG PO SCH (07:45)
[2018-07-03] MEDS: LABETALOL 100 MG TAB PO SCH (07:46)
[2018-07-03] MEDS: INSULIN ASPART (NovoLOG) 100 UNIT/ML VIAL SQ SCH ×2 (07:46→12:11)
[2018-07-03] MEDS: prednisoLONE ACETATE 1% OPHTH DROPS 5 ML BTL LEFT EYE SCH (07:46)
[2018-07-03] MEDS: TRIAMCINOLONE ACET 0.1% OINTMENT 15 GM TUBE TOPICAL SCH (07:47)
[2018-07-03] MEDS: SERTRALINE 50 MG TAB PO SCH (07:47)
[2018-07-03] MEDS: POTASSIUM CHLORIDE 8 MEQ PO SCH (07:47)
[2018-07-03] MEDS ORDERED: ISOSORBIDE MONONITRATE ER 30 MG TAB.ER.24H PO SCH (09:49)
[2018-07-03 11:32] VITALS: PULSE 60; TEMP 98.3
[2018-07-03] MEDS: CALCIUM CARBONATE 500 MG CHEWABLE PO SCH (12:02)
[2018-07-03 12:04] LABS: Glucose,Whole Blood 122 mg/dL (75-99)
--- NOTE | 2018-07-03 13:19 | P.PN ---
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 She follows in the office with Dr. Hawk. We have this year in consultation secondary to chest discomfort. She states yesterday after waking up she felt a pressure tight sensation in the anterior chest wall associated with shortness of breath and nauseous. Her symptoms are rather persistent PAIN yesterday and persisted until after she came to the emergency department. She states ultimately in the early evening the symptoms subsided with no specific alleviating factor. She states her breathing seemed to improve after receiving an inhaler. She has any further symptoms of chest discomfort since arriving at the hospital. These symptoms feel similar in nature of the pain to her event in early June but this time the intensity of the tightness is worse. She has no palpitations, vomiting, diaphoresis or dizziness. She is seen and examined resting comfortably laying flat in bed in no acute distress. 07/03/2018 Persantine stress test has been reviewed. There is evidence of small area of reversibility possible. She has had no further symptoms of chest discomfort and we have started the patient on imdur. Hydralazine was increased yesterday due to elevated blood pressures. Repeat today have been in [id number] systolic range. GENERAL: This is a 72-year-old female in no apparent distress at the time of my examination. HEENT: Head is atraumatic, normocephalic. Pupils are equal, round. Sclerae anicteric. Conjunctivae are clear. Mucous membranes of the mouth are moist. Neck is supple. There is no jugular venous distention. No carotid bruit is heard. LUNGS: Clear to auscultation no wheezes, rales or rhonchi. No chest wall tenderness is noted on palpation or with deep breathing. HEART: Regular rate and rhythm with holosystolic murmur at the left sternal border, no rubs or gallops. S1 and S2 heard. EXTREMITIES: No evidence of peripheral edema and no calf tenderness noted. ASSESSMENT Chest pain, atypical for angina. Coronary artery disease s/p recent stent placement Paroxysmal atrial fibrillation not on keno terminal operator anticoagulation secondary to recent CVA brain surgery Diabetes mellitus Chronic kidney disease Hypertension Dyslipidemia Sick sinus syndrome status post permanent pacemaker implantation PLAN If she continues to tolerate imdur with no further chest discomfort she may be discharged home. Follow up with Dr. Hawk in 1-2 weeks. Nurse Practitioner note has been reviewed, I agree with a documented findings and plan of care. Patient was seen and examined. Objective - Vital Signs Vital signs: Vital Signs Temp 98.3 F 07/03/18 11:15 Pulse 60 07/03/18 12:00 Resp 18 07/03/18 12:00 BP 151/57 07/03/18 11:15 Pulse Ox 95 07/03/18 11:15 Intake & Output 07/02/18 07/03/18 07/03/18 18:59 06:59 18:59 Intake Total 236 562 Balance 236 562 Weight 87.09 kg Intake: Oral 236 462 Other 100 Other: Voiding Method Bedside Commode Bedside Commode Bedside Commode Bedpan Bedpan Bedpan # Voids 1 1 # Bowel Movements 1 - Labs CBC & Chem 7: 07/02/18 04:08 07/01/18 12:32 Labs: Abnormal Lab Results - Last 24 Hours (Table) 07/02/18 07/02/18 07/03/18 Range/Units 16:29 20:32 06:46 POC Glucose (mg/dL) 136 H 178 H 137 H (75-99) mg/dL 07/03/18 Range/Units 11:57 POC Glucose (mg/dL) 122 H (75-99) mg/dL
[2018-07-03 17:20] VITALS: BP 125/43
[2018-07-04] MEDS ORDERED: SODIUM CHLORIDE 5% OPHTH DROPS 15 ML BTL RIGHT EYE SCH (09:00)
== END 2018-07-03 18:30 | disposition home health service (06) ==
LOC: EC 12:16 → 1SOBS 14:14
PROVIDERS: ADMIT Hospitalist; ATTEND Hospitalist
DX: R07.89 Other chest pain (principal); R06.00 Dyspnea, unspecified; M79.602 Pain in left arm; R53.81 Other malaise; R94.31 Abnormal electrocardiogram [ECG] [EKG]; R06.02 Shortness of breath; R11.0 Nausea; F32.9 Major depressive disorder, single episode, unspecified; I25.10 Atherosclerotic heart disease of native coronary artery without angina pectoris; I13.0 Hypertensive heart and chronic kidney disease with heart failure and stage 1 through stage 4 chronic kidney disease, or unspecified chronic kidney disease; E11.22 Type 2 diabetes mellitus with diabetic chronic kidney disease; M15.9 Polyosteoarthritis, unspecified; I50.32 Chronic diastolic (congestive) heart failure; I49.5 Sick sinus syndrome; N18.3 Chronic kidney disease, stage 3 (moderate); I48.2 Chronic atrial fibrillation; G40.909 Epilepsy, unspecified, not intractable, without status epilepticus; J45.909 Unspecified asthma, uncomplicated; E78.5 Hyperlipidemia, unspecified; Z90.49 Acquired absence of other specified parts of digestive tract; Z95.5 Presence of coronary angioplasty implant and graft; Z95.0 Presence of cardiac pacemaker; Z79.4 Long term (current) use of insulin; Z79.899 Other long term (current) drug therapy; Z79.02 Long term (current) use of antithrombotics/antiplatelets; Z79.82 Long term (current) use of aspirin; Z88.2 Allergy status to sulfonamides; Z91.040 Latex allergy status; Z80.8 Family history of malignant neoplasm of other organs or systems; Z82.5 Family history of asthma and other chronic lower respiratory diseases; Z85.828 Personal history of other malignant neoplasm of skin; Z86.73 Personal history of transient ischemic attack (TIA), and cerebral infarction without residual deficits; Z85.42 Personal history of malignant neoplasm of other parts of uterus; Z86.14 Personal history of Methicillin resistant Staphylococcus aureus infection; Z87.19 Personal history of other diseases of the digestive system; Z87.440 Personal history of urinary (tract) infections; Z86.19 Personal history of other infectious and parasitic diseases; Z87.11 Personal history of peptic ulcer disease
CPT/HCPCS: 96366 ×2; 96376; 96361; 96365; 96375; 99291; 36415; 93005; 93017; 85379; 83880; 80053; 83690; 83735; 84484 ×2; 85025; 85049; 85610; 85730 ×2; 83036; 71046; 78452; G0378 ×3; A9500; J1644 ×2; S0106 ×3; J1245

== ENCOUNTER 2018-07-09 05:39 | Inpatient (IN) | payer MEDICARE ==
[2018-07-09 06:05] LABS: Basophils # (A) 0.1 k/uL (0-0.2); Basophils % (A) 1 %; Eosinophils # (A) 0.3 k/uL (0-0.7); Eosinophils % (A) 4 %; HCT 35.2 % (34.0-46.0); HGB 11.7 gm/dL (11.4-16.0); Lymphocytes # (A) 1.6 k/uL (1.0-4.8); Lymphocytes % (A) 25 %; MCH 29.5 pg (25.0-35.0); MCHC 33.4 g/dL (31.0-37.0); MCV 88.3 fL (80.0-100.0); Mean Platelet Volume 7.2; Monocytes # (A) 0.4 k/uL (0-1.0); Monocytes % (A) 6 %; Neutrophils # (A) 3.9 k/uL (1.3-7.7); Neutrophils % (A) 62 %; Platelet Count 190 k/uL (150-450); RBC 3.99 m/uL (3.80-5.40); RDW 14.3 % (11.5-15.5); WBC 6.2 k/uL (3.8-10.6)
[2018-07-09 06:15] LABS: Albumin 3.7 g/dL (3.5-5.0); Calcium 9.3 mg/dL (8.4-10.2); INR 0.9 (<1.2); Magnesium 1.9 mg/dL (1.6-2.3); Partial Thromboplastin Time 22.6 sec (22.0-30.0); Potassium 4.4 mmol/L (3.5-5.1); Prothrombin Time 9.9 sec (9.0-12.0); Total Bilirubin 0.4 mg/dL (0.2-1.3); Total Protein 5.9 g/dL (6.3-8.2)
[2018-07-09] MEDS ORDERED: SODIUM CHLORIDE 0.9% 1,000 ML IV ONE (06:29)
--- NOTE | 2018-07-09 06:29 | ED ---
Chest Pain HPI - General Source: patient, EMS Mode of arrival: EMS <Jessenia Angulo - Last Filed: 07/09/18 07:10> - General Source: old records reviewed <Willy Bansal - Last Filed: 07/09/18 08:41> - General Chief Complaint: Chest Pain Stated Complaint: Chest Pain Time Seen by Provider: 07/09/18 05:45 - History of Present Illness Initial Comments: Orders a pleasant 72-year-old female with extensive past medical history who presents the emergency department today via EMS for evaluation of chest pain. Patient reports she was in her usual state of health throughout the day yesterday she woke from sleep with pressure-like pain in her chest radiating down her left arm. Patient contacted EMS who gave her aspirin and nitro, patient reports her pain is improved since that time. Patient reports she had no associated nausea, vomiting, lightheadedness, diaphoresis or palpitations with chest pain. Chest pain occurred at rest. Patient has been seen and evaluated for chest pain multiple times over the past couple of months. (Jessenia Angulo) - Related Data Home Medications Medication Instructions Recorded Confirmed Sertraline [Zoloft] 150 mg PO DAILY 01/04/14 07/09/18 Dicyclomine [Bentyl] 10 mg PO AC-TID 03/21/17 07/09/18 Albuterol Inhaler [Ventolin Hfa 1 - 2 puff INHALATION RT-Q6H PRN 03/27/18 07/09/18 Inhaler] Calcium Carbonate 500 mg PO DAILY 03/27/18 07/09/18 Ferrous Sulfate [Iron (65 MG 325 mg PO DAILY 03/27/18 07/09/18 Elemental)] Furosemide [Lasix] 40 mg PO DAILY 03/27/18 07/09/18 Labetalol [Trandate] 100 mg PO Q12H 03/27/18 07/09/18 Potassium Chloride [Klor-Con 8] 8 meq PO DAILY 03/27/18 07/09/18 Acetaminophen Tab [Tylenol] 500 mg PO Q4-6H PRN 06/04/18 07/09/18 Gabapentin [Neurontin] 300 mg PO BID 06/04/18 07/09/18 Insulin Glargine [Lantus] 56 unit SQ HS 06/04/18 07/09/18 amLODIPine [Norvasc] 10 mg PO DAILY 06/04/18 07/09/18 levETIRAcetam [Keppra] 500 mg PO Q12HR 06/04/18 07/09/18 prednisoLONE ACETATE [Pred Forte 1 drop LEFT EYE DAILY 06/04/18 07/09/18 1%] Sodium Chloride 5% Ophth Soln 1 drops RIGHT EYE MOFR 06/26/18 07/09/18 [Amanda 128] Triamcinolone 0.1% Ointment 1 applic TOPICAL BID 06/26/18 07/09/18 [Kenalog 0.1% Ointment] buPROPion SR [Wellbutrin SR] 100 mg PO DAILY 06/26/18 07/09/18 Previous Rx's Medication Instructions Recorded Atorvastatin [Lipitor] 40 mg PO HS #90 tab 06/07/18 Clopidogrel [Plavix] 75 mg PO DAILY #90 tab 06/07/18 Nitroglycerin Sl Tabs [Nitrostat] 0.4 mg SUBLINGUAL Q5M PRN #14 tab 06/07/18 Aspirin 81 mg PO DAILY chew 06/11/18 Omeprazole [PriLOSEC] 20 mg PO BID #60 capsule.dr 06/13/18 Isosorbide Mononitrate ER [Imdur] 30 mg PO DAILY #30 tab.er.24h 07/03/18 hydrALAZINE HCL [Apresoline] 75 mg PO TID #90 tab 07/03/18 Allergies Allergy/AdvReac Type Severity Reaction Status Date / Time Latex, Natural Rubber Allergy Itching Verified 07/09/18 07:58 sulfamethoxazole Allergy Rash/Hives Verified 07/09/18 07:58 [From Bactrim] trimethoprim [From Bactrim] Allergy Rash/Hives Verified 07/09/18 07:58 Review of Systems ROS Other: All systems not noted in ROS Statement are negative. <Jessenia Angulo - Last Filed: 07/09/18 07:10> ROS Other: All systems not noted in ROS Statement are negative. <Willy Bansal - Last Filed: 07/09/18 08:41> ROS Statement: Those systems with pertinent positive or pertinent negative responses have been documented in the HPI. EKG Findings - EKG Comments: EKG Findings:: EKG was obtained for evaluation of chest pain. EKG obtained at 5:46 AM, rate is 64 rhythm is atrial paced with prolonged AR interval. AR 322, QRS 84, QTC is 458. There are T-wave inversions in the inferior lateral leads with ST depressions. When compared to EKG obtained on July 02 of this year AR prolongation is new but there is no significant change in EKG morphology. <Jessenia Angulo P - Last Filed: 07/09/18 07:10> Past Medical History Past Medical History: Atrial Fibrillation, Asthma, Coronary Artery Disease (CAD), Cancer, Heart Failure, Diabetes Mellitus, Hypertension, Osteoarthritis (OA), Renal Disease Additional Past Medical History / Comment(s): Pt recently admitted to [facility] on 06/12/18 with gastritis, gastric erosion (lower GI bleed). 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 History of Any Multi-Drug Resistant Organisms: MRSA Date of last positivie culture/infection: 06/05/18 MDRO Source:: URINE Past Surgical History: Cholecystectomy, Heart Catheterization, Heart Catheterization With Stent, Hysterectomy, Pacemaker Additional Past Surgical History / Comment(s): Evacuation on intracranial hematoma and ressection of hemorrhagic mass, pacemaker 2016, PCI with stent 06/06/18, R eye corneal implant/cataract removal, EGD 06/2018, colonoscopy, skin cancer removal. Past Anesthesia/Blood Transfusion Reactions: No Reported Reaction Additional Past Anesthesia/Blood Transfusion Reaction / Comment(s): no previous blood transfusions Date of Last Stent Placement:: 06/06/18 Type of Cardiac Device: Permanent Pacemaker Device Placement Date:: 04/2016 Past Psychological History: Depression Smoking Status: Never smoker Past Alcohol Use History: None Reported Past Drug Use History: None Reported - Past Family History Mother Family Medical History: Cancer, COPD, Hypertension Additional Family Medical History / Comment(s): Mother had bone cancer. Father Family Medical History: Cancer, Hypertension Additional Family Medical History / Comment(s): Father had skin cancer. <Jessenia Angulo P - Last Filed: 07/09/18 07:10> General Exam <Jessenia Angulo P - Last Filed: 07/09/18 07:10> - General Exam Comments Initial Comments: Physical Exam GENERAL: Elderly female in no distress Appears dehydrated HENT: Normocephalic, Atraumatic. Dry mucous membranes EYES: PERRL, EOMI PULMONARY: Unlabored respirations. No audible rales rhonchi or wheezing was noted. CARDIOVASCULAR: RRR ABDOMEN: Soft and nontender with normal bowel sounds. No pulsating masses SKIN: Skin is clear with no lesions or rashes and otherwise unremarkable. : Deferred NEUROLOGIC: Patient is alert and oriented x3. Moving all extremities spontaneously MUSCULOSKELETAL: Normal extremities with adequate strength and full range of motion. No lower extremity swelling or edema. No calf tenderness. PSYCHIATRIC: Normal psychiatric evaluation. (Jessenia Angulo) Course <Willy Bansal - Last Filed: 07/09/18 08:41> Vital Signs 07/09/18 07/09/18 07/09/18 05:40 06:02 06:38 Temperature 98.3 F Pulse Rate 62 60 Pulse Rate [ 75 Rec[employer]ing Program Manager ] Respiratory 18 18 Rate Blood Pressure 147/67 168/55 O2 Sat by Pulse 92 L 99 Oximetry 07/09/18 07/09/18 07/09/18 07:23 08:23 08:35 Temperature Pulse Rate 60 60 Pulse Rate [ Recycling Program Manager ] Respiratory 16 16 Rate Blood Pressure 154/56 162/56 175/58 O2 Sat by Pulse 99 99 Oximetry - Reevaluation(s) Reevaluation #1: 07/09/18 07:56 Chest x-ray reviewed by myself reveals no acute process. 07/09/18 08:40 Patient reevaluated and states she is starting to have increased tightness in her chest, now rated 7/10. Patient states earlier that resolved with nitroglycerin. Patient has been ordered nitro glycerin again. Case was discussed with Dr. rothman was previously admitted this patient and will admit. Cardiology will be placed on consult. (Willy Bansal) Chest Pain MDM <Jessenia Angulo - Last Filed: 07/09/18 07:10> - MDM The patient was seen and evaluated history is obtained from patient and review of medical record This is a 72-year-old female with extensive history most significant for known coronary artery disease presenting to the ER with sudden onset of chest pain that occurred at rest, chest pain has improved after aspirin and nitro EKG was obtained EKG and is unchanged from previous there is no signs of acute ischemia or infarction Cardiac workup was initiated Initial labs were at baseline, BNP at baseline, creatinine at baseline, troponin is not elevated A repeat troponin will be ordered [address] Bansal will follow-up on repeat troponin (Jessenia Angulo) Disposition <Jessenia Angulo - Last Filed: 07/09/18 07:10> Is patient prescribed a controlled substance at d/c from ED?: No Decision Time: 08:41 <Willy Bansal - Last Filed: 07/09/18 08:41> Clinical Impression: Chest pain Disposition: ADMITTED IP TO THIS HOSP Referrals: Lisa Willingham MD [Primary Care Provider] - 1-2 days
[2018-07-09] MEDS ORDERED: SODIUM CHLORIDE 0.9% 500 ML 500 ML IV ONE (06:37)
[2018-07-09] MEDS: SODIUM CHLORIDE 0.9% 1,000 ML IV SCH ×2 (06:38→19:26)
--- NOTE | 2018-07-09 06:39 | XR ---
EXAM: XR Chest, 2 Views CLINICAL HISTORY: ITS.REASON XR Reason: Chest Pain TECHNIQUE: Frontal and lateral views of the chest. COMPARISON: Chest x-ray dated 07/01/2018. FINDINGS: Lungs: Unremarkable. The lungs are clear. Pleural space: Unremarkable. No pneumothorax. Heart: Unremarkable. No cardiomegaly. Mediastinum: Unremarkable. Bones/joints: Moderate degenerative changes of both shoulder joints. Mild degenerative changes of thoracic spine. Vasculature: Mild calcification of the aortic arch. Tubes, lines and devices: 2-lead AICD overlying left chest wall. IMPRESSION: No acute findings.
[2018-07-09] MEDS ORDERED: NITROGLYCERIN OINT 1 INCH/GM PACKET TOPICAL STA (08:30)
[2018-07-09] MEDS ORDERED: NITROGLYCERIN SL TABS 0.4 MG TAB SUBLINGUAL STA (08:31)
[2018-07-09] MEDS ORDERED: ASPIRIN 81 MG PO STA (08:41)
[2018-07-09] MEDS ORDERED: NITROGLYCERIN SL TABS 0.4 MG TAB SUBLINGUAL PRN ×2 (08:41→13:50)
[2018-07-09 09:49] VITALS: BMI 38.2
[2018-07-09] MEDS ORDERED: ACETAMINOPHEN TAB 500 MG TAB PO PRN (13:50)
[2018-07-09] MEDS ORDERED: ALBUTEROL NEBULIZED 2.5 MG/3 ML INHALATION PRN (13:50)
[2018-07-09] MEDS: FUROSEMIDE 40 MG TAB PO SCH (15:04)
[2018-07-09] MEDS: amLODIPine 10 MG TAB PO SCH (15:04)
[2018-07-09] MEDS: CLOPIDOGREL 75 MG TAB PO SCH (15:05)
[2018-07-09] MEDS: FERROUS SULFATE 325 MG TAB PO SCH (15:05)
[2018-07-09] MEDS: ISOSORBIDE MONONITRATE ER 30 MG TAB.ER.24H PO SCH (15:05)
[2018-07-09] MEDS: POTASSIUM CHLORIDE ER 10 MEQ TAB.ER.PRT PO SCH (15:05)
[2018-07-09] MEDS: SERTRALINE 100 MG TAB PO SCH (15:05)
[2018-07-09] MEDS: prednisoLONE ACETATE 1% OPHTH DROPS 5 ML BTL LEFT EYE SCH (15:06)
[2018-07-09] MEDS: CALCIUM CARBONATE 500 MG CHEWABLE PO SCH (15:06)
[2018-07-09] MEDS: NITROGLYCERIN OINT 1 INCH/GM PACKET TOPICAL SCH ×3 (15:06→22:10)
[2018-07-09] MEDS: buPROPion SR 100 MG TABLET.ER PO SCH (15:06)
[2018-07-09] MEDS: hydrALAZINE HCL 25 MG TAB PO SCH ×2 (16:10→22:11)
[2018-07-09] MEDS: LABETALOL 100 MG TAB PO SCH ×2 (16:10→22:10)
[2018-07-09 16:43] LABS: Glucose,Whole Blood 193 mg/dL (75-99)
[2018-07-09] MEDS: DICYCLOMINE 10 MG CAP PO SCH (17:18)
[2018-07-09 19:03] LABS: Appearance,Urine Clear (Clear); Bilirubin,Urine Negative (Negative); Blood,Urine Negative (Negative); Color,Urine Colorless; Glucose,Urine (UA) Negative (Negative); Ketones,Urine Negative (Negative); Leukocyte Esterase,Urine Negative (Negative); Nitrite,Urine Negative (Negative); Protein,Urine Negative (Negative); Specific Gravity,Urine 1.007 (1.001-1.035); Urobilinogen,Urine <2.0 mg/dL (<2.0)
[2018-07-09] MEDS: GABAPENTIN 300 MG CAP PO SCH (19:50)
[2018-07-09] MEDS: levETIRAcetam 500 MG TAB PO SCH (19:50)
[2018-07-09 20:28] LABS: Glucose,Whole Blood 177 mg/dL (75-99)
--- NOTE | 2018-07-09 20:37 | HP ---
HISTORY AND PHYSICAL DATE OF ADMISSION: 07/09/2018 DATE OF SERVICE: 07/09/2018 PRESENTING COMPLAINT: Chest pain. HISTORY OF PRESENTING COMPLAINT: This is a very pleasant 72-year-old patient who was here in the hospital just over a week ago. Follows with Dr. Willingham. Chronic stable medical conditions include congestive heart failure from diastolic dysfunction, sick sinus syndrome with a pacemaker. Diabetes, hypertension, osteoarthritis, depression, coronary artery disease with stent, history of intracranial bleed following tumor being removed, chronic kidney disease. The patient then had presented with chest pain. Did undergo a nuclear stress test that was negative. The patient was seen by Dr. Owens from Cardiology. The patient now returns with a chest pain going across the lower chest, present on and off, present on and off going down to the left arm. There was associated shortness of breath, nausea, and also became clammy. There was no dizziness or lightheadedness. Like stated this present on and off for quite some time. Hence she decided to present and admitted with a diagnosis of unstable angina. REVIEW OF SYSTEMS: CONSTITUTIONAL: None. HEENT: Decreased hearing. RESPIRATORY: None. CARDIOVASCULAR: None. GASTROINTESTINAL: None. GENITOURINARY: None. MUSCULOSKELETAL: Arthritic pain in joints. DERMATOLOGICAL: None. HEMATOLOGICAL: None. LYMPHATICS: None. PSYCHIATRY: Slightly anxious. NEUROLOGICAL: Uses a walker. PAST MEDICAL HISTORY: Congestive heart failure, diastolic dysfunction, sick sinus syndrome with pacemaker, diabetes, hypertension, osteoarthritis, depression, atrial fibrillation, hypertension, coronary artery disease with stent, brain mets with surgery, had intracranial bleed and seizure for a short time after that. Chronic kidney disease. PAST SURGICAL HISTORY: Cholecystectomy, cardiac cath with stent, hysterectomy, pacemaker, evacuation of rectal hematoma with resection of hemorrhagic mass, pacemaker in April 2016, angioplasty, stent, right cornea implant with cataract removal, skin cancer removed, pacemaker in 2017. PSYCH HISTORY: Depression. SOCIAL HISTORY: No smoking, no alcohol. Lives with her son and [id number]. Uses a walker. FAMILY HISTORY: COPD, hypertension. Mother had bone cancer. HOME MEDICATIONS: 1. Prednisone Forte 1% 1 drop to left eye daily. 2. Keppra 500 mg p.o. q.12. 3. Hydralazine 75 mg p.o. t.i.d. 4. Wellbutrin SR 100 mg p.o. daily. 5. Norvasc 10 mg p.o. daily. 6. Kenalog 0.1% topical b.i.d. 7. Sodium chloride 5% 1 drop to right eye Saturday and Saturday. 8. Zoloft 150 mg p.o. daily. 9. Potassium 80 mEq p.o. daily. 10.Prilosec 20 mg p.o. b.i.d. 11.Nitrostat 0.4 sublingual q.5 p.r.n. 12.Labetalol 100 mg p.o. q.12. 13.Imdur ER 30 mg p.o. daily. 14.Lantus 56 units subcu q.h.s. 15.Neurontin 300 mg p.o. b.i.d. 16.Lasix 40 mg p.o. daily. 17.Iron 325 p.o. daily. 18.Bentyl 10 mg p.o. a.c. t.i.d. 19.Plavix 75 mg p.o. daily. 20.Calcium carbonate 500 mg p.o. daily. 21.Lipitor 40 mg q.h.s. 22.Aspirin 81 mg p.o. daily. 23.Ventolin HFA 1 or 2 puffs q.6 p.r.n. 24.Tylenol 500 mg q.4 6 p.r.n. ALLERGIES: LATEX, BACTRIM. PHYSICAL EXAMINATION: VITAL SIGNS: Temperature 97.7, pulse 60, respiratory 18, blood pressure 169/72, pulse ox 93 percent on room air. GENERAL APPEARANCE: Sitting up in bed, a bit anxious-appearing. EYES: Pupils equal. Conjunctivae normal. HEENT: External appearance of nose and ears normal. Oral cavity normal. NECK: JVD not raised. Mass not palpable. RESPIRATORY: Effort normal. LUNGS: Diminished breath sounds. CARDIOVASCULAR: 1st and 2nd sounds normal. No edema. ABDOMEN: Soft, nontender. Liver and spleen not palpable. PSYCHIATRY: Alert and oriented times three. Mood and affect anxious. Neurological: Pupils equal. Cranial nerves grossly intact. Power and sensation grossly intact. MUSCULOSKELETAL: Evidence of osteoarthritis in multiple joints. INVESTIGATIONS: White count 6.2, hemoglobin 11.7, potassium 4.4, BUN 24, creatinine 1.37. The patient's BUN and creatinine was 27/1.37 on July 01, 2018. Troponin negative. EKG tracing personally reviewed by me shows a paced rhythm with some ST-segment depression. This is somewhat the same as when she was present in the last week. Chest x-ray film personally reviewed by me shows some cardiomegaly, questionable venous prominence. ASSESSMENT: 1. Possible unstable angina in a patient with known coronary artery disease though patient had a nuclear stress test that was negative over a week ago. 2. Chronic congestive heart failure from diastolic dysfunction. Ejection fraction not known. 3. Permanent pacemaker. Underlying sick sinus syndrome. 4. Diabetes mellitus type 2, chronically on insulin. 5. Essential hypertension. 6. Primary osteoarthritis. 7. Paroxysmal atrial fibrillation. 8. Coronary artery disease with prior history of stent. 9. Essential hypertension. 10.Chronic kidney disease stage 3 probably from nephrosclerosis. 11.History of intracranial bleed following a brain mass and seizures following that. PLAN: Home medications are resumed. Cardiology was consulted. Serial cardiac enzymes in place. Care was discussed with the patient and daughter at the bedside. Copy to Dr. Willingham. CHELSEA / MOLLYN: [id number] /
[2018-07-09] MEDS ORDERED: INSULIN DETEMIR (LEVEMIR) 100 UNIT/ML SYR SQ SCH (21:00)
[2018-07-09] MEDS ORDERED: ATORVASTATIN 40 MG TAB PO SCH (21:00)
[2018-07-09] MEDS: TRIAMCINOLONE ACET 0.1% OINTMENT 15 GM TUBE TOPICAL SCH (22:00)
[2018-07-10] MEDS: SODIUM CHLORIDE 0.9% 1,000 ML IV SCH (03:59)
[2018-07-10] MEDS: NITROGLYCERIN OINT 1 INCH/GM PACKET TOPICAL SCH (06:17)
[2018-07-10 06:20] LABS: Glucose,Whole Blood 49 mg/dL (75-99)
[2018-07-10 07:01] LABS: Glucose,Whole Blood 96 mg/dL (75-99)
[2018-07-10] MEDS ORDERED: PANTOPRAZOLE 40 MG TABLET PO SCH ×2 (07:30→17:30)
[2018-07-10 07:38] VITALS: RESP 18
[2018-07-10] MEDS ORDERED: DOBUTamine DRIP for NUC MED 500 MG in DEXTROSE/WATER 1 250ML.BAG IV ONE (08:54)
[2018-07-10] MEDS ORDERED: ASPIRIN 325 MG TAB PO SCH (09:00)
[2018-07-10] MEDS ORDERED: ASPIRIN 81 MG PO SCH (09:00)
--- NOTE | 2018-07-10 10:50 | P.CRDCN ---
History of Present Illness History of present illness: This is a pleasant 72-year-old female past medical history significant for coronary artery disease status post stent placement to the mid and proximal LAD on 06/06/2018 maintained on dual antiplatelet therapy in the setting of NSTEMI, paroxysmal atrial fibrillation not on penitentiary anticoagulation secondary to recent CVA and brain surgery, diabetes mellitus, chronic kidney disease, hypertension, sick sinus syndrome status post permanent pacemaker implantation and asthma. She follows in the office with Dr. Hawk. We have this year in consultation secondary to chest discomfort. She states she was woken from sleep on Saturday night with a pressure sensation in the upper abdomen lower chest radiating around underneath both breasts. This pain lasted for approximately 30 minutes. EMS was called and she was given sublingual nitroglycerin. She denies associated shortness of breath, dizziness, nausea, vomiting or diaphoresis. The pain did not radiate to the back, arm, neck or jaw. She has had no reoccurrence of pain since arriving at the hospital. She has had frequent hospitalizations for chest pain in the last 1-month. On July 02 she underwent a persantine stress test that was overall unremarkable with evidence of a fixed defect. She was initiated on imdur at that time. She states she is compliant with her medications that her son and daughter in law administer. She is seen and examined resting comfortably in no acute distress. She has had no further symptoms of chest discomfort since coming to the hospital. EKG reveals sinus mechanism with T-wave inversion in all leads. Compared to old EKGs this is chronic. Chest x-ray is negative for an acute cardiopulmonary process. Laboratory data reviewed, cardiac enzymes negative 3, WBC 6.2, hemoglobin 11.7, platelets 190, sodium 146, potassium 4.4, creatinine 1.37 with a GFR of 38, magnesium 1.9, and T proBNP chronically elevated at 3780. Current cardiac medications include aspirin 81 mg daily, atorvastatin 40 mg daily, Plavix 75 mg daily, Lasix 40 mg daily, labetalol 100 mg twice a day, amlodipine 10 mg daily, imdur 30 mg daily and hydralazine 50 mg 3 times a day. Most recent echocardiogram obtained June 05 2018 reveals preserved left ventricular systolic function with ejection fraction 55-60%, mild aortic valve sclerosis, mild aortic regurgitation, mild mitral regurgitation and mild tricuspid regurgitation. At the time of my exam: CONSTITUTIONAL: Denies fever. Denies chills. EYES: Denies blurred vision. Denies vision changes. Denies eye pain. EARS, NOSE, MOUTH & THROAT: Denies headache. Denies sore throat. Denies ear pain. CARDIOVASCULAR: Denies chest pain. Denies shortness of breath. Denies orthopnea. Denies PND. Denies palpitations. RESPIRATORY: Denies cough. GASTROINTESTINAL: Denies abdominal pain. Denies diarrhea. Denies constipation. Denies nausea. Denies vomiting. MUSCULOSKELETAL: Denies myalgias. INTEGUMENTARY: Denies pruitis. Denies rash. NEUROLOGIC: Denies numbness. Denies tingling. Denies weakness. PSYCHIATRIC: Denies anxiety. Denies depression. ENDOCRINE: Denies fatigue. Denies weight change. Denies polydipsia. Denies polyurina. GENITOURINARY: Denies burning, hematuria or urgency with micturation. HEMATOLOGIC: Denies history of anemia. Denies bleeding. Blood pressure 163/79 heart rate 61 afebrile maintaining oxygen saturation on nasal cannula GENERAL: This is a 72-year-old female in no apparent distress at the time of my examination. HEENT: Head is atraumatic, normocephalic. Pupils are equal, round. Sclerae anicteric. Conjunctivae are clear. Mucous membranes of the mouth are moist. Neck is supple. There is no jugular venous distention. No carotid bruit is heard. LUNGS: Clear to auscultation no wheezes, rales or rhonchi. No chest wall tenderness is noted on palpation or with deep breathing. HEART: Regular rate and rhythm with holosystolic murmur at the left sternal border, no rubs or gallops. S1 and S2 heard. ABDOMEN: Soft, nontender. Bowel sounds are heard. No organomegaly noted. EXTREMITIES: No evidence of peripheral edema and no calf tenderness noted. VASCULAR: Radial and dorsalis pedis pulses palpated, no evidence of clubbing. NEUROLOGIC: Patient is awake, alert and oriented x3. ASSESSMENT Chest pain, atypical for angina. Coronary artery disease s/p recent stent placement Paroxysmal atrial fibrillation not on penitentiary anticoagulation secondary to recent CVA brain surgery Diabetes mellitus Chronic kidney disease Hypertension Dyslipidemia Sick sinus syndrome status post permanent pacemaker implantation PLAN An acute coronary event has been ruled out. Perform Dobutamine stress echocardiogram to assess for stress induced ischemia. I would also increase her antacid to 40 mg BID for possible GERD since her symptoms seem to be consistently occurring at night while laying flat. Thank you kindly for this consultation. Nurse Practitioner note has been reviewed, I agree with a documented findings and plan of care. Patient was seen and examined. 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 History of Any Multi-Drug Resistant Organisms: MRSA Date of last positivie culture/infection: 06/05/18 MDRO Source:: URINE Past Surgical History: Cholecystectomy, Heart Catheterization, Heart Catheterization With Stent, Hysterectomy, Pacemaker Additional Past Surgical History / Comment(s): Evacuation on intracranial hematoma and ressection of hemorrhagic mass, pacemaker 2016, PCI with stent 06/06/18, EGD/colonoscopy, R eye corneal implant/cataract removal, EGD 06/2018, colonoscopy, skin cancer removal. Past Anesthesia/Blood Transfusion Reactions: No Reported Reaction Additional Past Anesthesia/Blood Transfusion Reaction / Comment(s): no previous blood transfusions Date of Last Stent Placement:: 06/06/18 Type of Cardiac Device: Permanent Pacemaker Device Placement Date:: 04/2016 Smoking Status: Never smoker - Past Family History Mother Family Medical History: Cancer, COPD, Hypertension Additional Family Medical History / Comment(s): Mother had bone cancer. Father Family Medical History: Cancer, Hypertension Additional Family Medical History / Comment(s): Father had skin cancer. Medications and Allergies Home Medications Medication Instructions Recorded Confirmed Type Sertraline [Zoloft] 150 mg PO DAILY 01/04/14 07/09/18 History Dicyclomine [Bentyl] 10 mg PO AC-TID 03/21/17 07/09/18 History Albuterol Inhaler [Ventolin Hfa 1 - 2 puff INHALATION RT-Q6H PRN 03/27/1810/20 History Inhaler] Calcium Carbonate 500 mg PO DAILY 03/27/18 07/09/18 History Ferrous Sulfate [Iron (65 MG 325 mg PO DAILY 03/27/18 07/09/18 History Elemental)] Furosemide [Lasix] 40 mg PO DAILY 03/27/18 07/09/18 History Labetalol [Trandate] 100 mg PO Q12H 03/27/18 07/09/18 History Potassium Chloride [Klor-Con 8] 8 meq PO DAILY 03/27/18 07/09/18 History Acetaminophen Tab [Tylenol] 500 mg PO Q4-6H PRN 06/04/18 07/09/18 History Gabapentin [Neurontin] 300 mg PO BID 06/04/18 07/09/18 History Insulin Glargine [Lantus] 56 unit SQ HS 06/04/18 07/09/18 History amLODIPine [Norvasc] 10 mg PO DAILY 06/04/18 07/09/18 History levETIRAcetam [Keppra] 500 mg PO Q12HR 06/04/18 07/09/18 History prednisoLONE ACETATE [Pred Forte 1 drop LEFT EYE DAILY 06/04/18 07/09/18 History 1%] Atorvastatin [Lipitor] 40 mg PO HS #90 tab 06/07/18 07/09/18 Rx Clopidogrel [Plavix] 75 mg PO DAILY #90 tab 06/07/18 07/09/18 Rx Nitroglycerin Sl Tabs [Nitrostat] 0.4 mg SUBLINGUAL Q5M PRN #14 tab 06/07/18 07/09/18 Rx Aspirin 81 mg PO DAILY chew 06/11/18 07/09/18 Rx Omeprazole [PriLOSEC] 20 mg PO BID #60 capsule. 06/13/18 07/09/18 Rx Sodium Chloride 5% Ophth Soln 1 drops RIGHT EYE MOFR 06/26/18 07/09/18 History [Amanda 128] Triamcinolone 0.1% Ointment 1 applic TOPICAL BID 06/26/18 07/09/18 History [Kenalog 0.1% Ointment] buPROPion SR [Wellbutrin SR] 100 mg PO DAILY 06/26/18 07/09/18 History Isosorbide Mononitrate ER [Imdur] 30 mg PO DAILY #30 tab.er.24h 07/03/18 07/09/18 Rx hydrALAZINE HCL [Apresoline] 75 mg PO TID #90 tab 07/03/18 07/09/18 Rx Allergies Allergy/AdvReac Type Severity Reaction Status Date / Time Latex, Natural Rubber Allergy Itching Verified 07/09/18 07:58 sulfamethoxazole Allergy Rash/Hives Verified 07/09/18 07:58 [From Bactrim] trimethoprim [From Bactrim] Allergy Rash/Hives Verified 07/09/18 07:58 Physical Exam Vitals: Vital Signs Temp Pulse Pulse Pulse Resp BP BP 07/10/18 07:25 97.6 F 61 18 128/65 07/10/18 06:12 97.9 F 63 14 07/10/18 03:55 15 07/09/18 23:46 15 07/09/18 23:34 98.0 F 66 15 07/09/18 21:28 58 L 16 07/09/18 21:22 62 16 07/09/18 19:40 16 07/09/18 19:20 98.1 F 60 16 07/09/18 15:57 97.8 F 59 L 18 07/09/18 14:04 07/09/18 13:15 97.7 F 60 18 07/09/18 12:00 60 17 176/58 07/09/18 11:30 60 18 180/66 07/09/18 11:00 60 18 185/69 07/09/18 10:30 60 18 174/69 07/09/18 10:00 60 17 188/63 07/09/18 09:00 60 18 122/57 BP Pulse Ox 07/10/18 07:25 91 L 07/10/18 06:12 166/72 93 L 07/10/18 03:55 07/09/18 23:46 07/09/18 23:34 169/95 96 07/09/18 21:28 07/09/18 21:22 07/09/18 19:40 07/09/18 19:20 154/61 97 07/09/18 15:57 168/60 95 07/09/18 14:04 93 L 07/09/18 13:15 169/72 93 L 07/09/18 12:00 99 07/09/18 11:30 100 07/09/18 11:00 100 07/09/18 10:30 07/09/18 10:00 99 07/09/18 09:00 98 Intake and Output 07/09/18 07/10/18 07/10/18 22:59 06:59 14:59 Intake Total 636 Output Total 350 Balance 286 Intake: Oral 236 Other 400 Output: Urine 350 Other: Voiding Method Bedside Commode Bedside Commode Bedside Commode Diaper Diaper Diaper Incontinent Incontinent Incontinent # Voids 1 1 Results 07/09/18 05:54 07/09/18 05:54 Cardiac Enzymes 07/09/18 07/09/18 Range/Units 08:45 18:11 Troponin I 0.016 <0.012 (0.000-0.034) ng/mL Current Medications Generic Name Dose Route Start Last Admin Trade Name Freq PRN Reason Stop Dose Admin Acetaminophen 500 mg 07/09/18 13:50 07/09/18 22:12 Tylenol Tab PO 500 mg Q4H PRN Administration Mild Pain Albuterol Sulfate 2.5 mg 07/09/18 13:50 07/09/18 21:21 Ventolin Nebulized INHALATION 2.5 mg RT-Q6H PRN Administration Shortness Of Breath Amlodipine Besylate 10 mg 07/09/18 13:15 07/09/18 15:04 Norvasc PO 10 mg DAILY ALEXSANDER Administration Aspirin 81 mg 07/10/18 09:00 Aspirin PO DAILY ON LICENSE OF [facility] Atorvastatin Calcium 40 mg 07/09/18 21:00 07/09/18 19:50 Lipitor PO 40 mg HS ALEXSANDER Administration Bupropion HCl 100 mg 07/09/18 14:00 07/09/18 15:06 Wellbutrin Sr PO 100 mg DAILY ON LICENSE OF [facility] Administration Calcium Carbonate/Glycine 500 mg 07/09/18 14:00 07/09/18 15:06 Tums PO 500 mg DAILY ALEXSANDER Administration Clopidogrel Bisulfate 75 mg 07/09/18 13:15 07/09/18 15:05 Plavix PO 75 mg DAILY ALEXSANDER Administration Dicyclomine HCl 10 mg 07/09/18 17:30 07/09/18 17:18 Bentyl PO 10 mg AC-TID ALEXSANDER Administration Ferrous Sulfate 325 mg 07/09/18 14:00 07/09/18 15:05 Feosol PO 325 mg DAILY ALEXSANDER Administration Furosemide 40 mg 07/09/18 13:30 07/09/18 15:04 Lasix PO 40 mg DAILY ON LICENSE OF [facility] Administration Gabapentin 300 mg 07/09/18 21:00 07/09/18 19:50 Neurontin PO 300 mg BID ON LICENSE OF [facility] Administration Hydralazine HCl 75 mg 07/09/18 16:00 07/09/18 22:11 Apresoline PO 75 mg TID ALEXSANDER Administration Sodium Chloride 1,000 mls @ 100 mls/hr 07/09/18 06:30 07/10/18 03:59 Saline 0.9% IV Not Given .Q10H ON LICENSE OF [facility] Insulin Detemir 56 unit 07/09/18 21:00 07/09/18 20:28 Levemir SQ 56 unit HS ON LICENSE OF [facility] Administration Isosorbide Mononitrate 30 mg 07/09/18 14:00 07/09/18 15:05 Imdur PO 30 mg DAILY ON LICENSE OF [facility] Administration Labetalol HCl 100 mg 07/09/18 13:15 07/09/18 22:10 Trandate PO 100 mg Q12HR ON LICENSE OF [facility] Administration Levetiracetam 500 mg 07/09/18 21:00 07/09/18 19:50 Keppra PO 500 mg Q12HR ON LICENSE OF [facility] Administration Nitroglycerin 1 inch 07/09/18 12:00 07/10/18 06:17 Nitro-Bid Oint TOPICAL Not Given Q6HR ON LICENSE OF [facility] Nitroglycerin 0.4 mg 07/09/18 08:41 Nitrostat SUBLINGUAL Q5M PRN Chest Pain Nitroglycerin 0.4 mg 07/09/18 13:50 Nitrostat SUBLINGUAL Q5M PRN Chest Pain Pantoprazole Sodium 40 mg 07/10/18 07:30 Protonix PO AC-BRKFST ON LICENSE OF [facility] Potassium Chloride 10 meq 07/09/18 14:00 07/09/18 15:05 K-Dur 10 PO 10 meq DAILY ON LICENSE OF [facility] Administration Prednisolone Acetate 1 drops 07/09/18 13:53 07/09/18 15:06 Pred Forte 1% LEFT EYE 1 drops DAILY ON LICENSE OF [facility] Administration Sertraline HCl 150 mg 07/09/18 14:00 07/09/18 15:05 Zoloft PO 150 mg DAILY ALEXSANDER Administration Sodium Chloride 10 ml 07/09/18 09:00 07/09/18 19:51 Saline Flush IV 10 ml BID ON LICENSE OF [facility] Administration Sodium Chloride 1 drops 07/11/18 09:00 Amanda 128 RIGHT EYE MOFR ALEXSANDER Triamcinolone Acetonide 1 applic 07/09/18 21:00 07/09/18 22:00 Kenalog TOPICAL Not Given BID ALEXSANDER Intake and Output 07/09/18 07/10/18 07/10/18 22:59 06:59 14:59 Intake Total 636 Output Total 350 Balance 286 Intake: Oral 236 Other 400 Output: Urine 350 Other: Voiding Method Bedside Commode Bedside Commode Bedside Commode Diaper Diaper Diaper Incontinent Incontinent Incontinent # Voids 1 1 07/09/18 05:54 07/09/18 05:54
[2018-07-10] MEDS: buPROPion SR 100 MG TABLET.ER PO SCH (12:23)
[2018-07-10] MEDS: DICYCLOMINE 10 MG CAP PO SCH ×3 (12:23→17:29)
[2018-07-10] MEDS: CLOPIDOGREL 75 MG TAB PO SCH (12:24)
[2018-07-10] MEDS: hydrALAZINE HCL 25 MG TAB PO SCH ×2 (12:24→17:29)
[2018-07-10] MEDS: FERROUS SULFATE 325 MG TAB PO SCH (12:24)
[2018-07-10] MEDS: ISOSORBIDE MONONITRATE ER 30 MG TAB.ER.24H PO SCH (12:24)
[2018-07-10] MEDS: POTASSIUM CHLORIDE ER 10 MEQ TAB.ER.PRT PO SCH (12:24)
[2018-07-10] MEDS: amLODIPine 10 MG TAB PO SCH (12:25)
[2018-07-10] MEDS: GABAPENTIN 300 MG CAP PO SCH (12:25)
[2018-07-10] MEDS: levETIRAcetam 500 MG TAB PO SCH (12:25)
[2018-07-10] MEDS: CALCIUM CARBONATE 500 MG CHEWABLE PO SCH (12:25)
[2018-07-10] MEDS: LABETALOL 100 MG TAB PO SCH (12:25)
[2018-07-10] MEDS: FUROSEMIDE 40 MG TAB PO SCH (12:25)
[2018-07-10] MEDS: TRIAMCINOLONE ACET 0.1% OINTMENT 15 GM TUBE TOPICAL SCH (12:26)
[2018-07-10] MEDS: SERTRALINE 100 MG TAB PO SCH (12:26)
[2018-07-10 12:41] LABS: Glucose,Whole Blood 127 mg/dL (75-99)
--- NOTE | 2018-07-10 13:52 | P.STRESS ---
- Stress Test Note Stress Test Results/Findings: Exam Performed: dobutamine stress echo with con Exam Date: 07/10/18 Reason for Exam: Chest Pain Height: 5 ft 3 in Weight: 97.976 kg Protocol: Dobutamine Stage: 5 Duration of Exercise: 14:38 Resting Heart Rate: 61 Resting Blood Pressure: 149/64 Maximum Achieved Heart Rate: 106 Maximum Achieved Blood Pressure: 184/59 85% PMHR: 125 100% PMHR: 147 METS: na Technologist Comment: Stress Test Results/Findings: Baseline heart rate 61 beats a minute, Baseline blood pressure 149/64 mmHg baseline 12-lead ECG shows sinus rhythm with [address] depression with T-wave inversions inferior laterally in the lateral precordial leads Patient received dobutamine infusion per protocol. Peak heart rate 106 beats a minute normal blood pressure response The ECG abnormalities of ST depression with T-wave inversion remained through the procedure without any pseudonormalization Frequent PVCs ventricle couplets ventricular triplets and few and and runoff nonsustained ventricular tachycardia, monomorphic, for 10 beats noted please note that this was slow nonsustained VT at 100 beats a minute There was no evidence for ischemia on stress echo images. Definity contrast was used. Baseline 2-D echo showed normal LV systolic function without segmental wall motion abnormalities With dobutamine infusion up to 40 mics, there was stepwise augmentation of overall LV contractility without development of any wall motion normalities Adequate thickening of the myocardial loomis was noted uniformly without any wall motion abnormalities @Recovery regional global LV systolic function and normal Impression Baseline abnormalities and twelve-lead ECG noted was above Frequent PVCs and couplets ventricular triplets and one 10 beat run of slow nonsustained monomorphic VT at 100 beats a minute for 10 beats No echocardiographic evidence for ischemia
[2018-07-10] MEDS: prednisoLONE ACETATE 1% OPHTH DROPS 5 ML BTL LEFT EYE SCH (14:34)
[2018-07-10 15:37] VITALS: BP 116/51; PULSE 62; TEMP 98.1
[2018-07-10 16:35] LABS: Glucose,Whole Blood 179 mg/dL (75-99)
[2018-07-10] MEDS ORDERED: LABETALOL 100 MG TAB PO SCH (21:00)
[2018-07-11] MEDS ORDERED: SODIUM CHLORIDE 5% OPHTH DROPS 15 ML BTL RIGHT EYE SCH (09:00)
--- NOTE | 2018-07-11 09:05 | DS ---
DISCHARGE SUMMARY DATE OF ADMISSION: 07/09/2018 DATE OF DISCHARGE: 07/10/2018. FINAL DIAGNOSES: 1. Anterior chest wall pain could be musculoskeletal with a negative stress test. 2. Chronic congestive heart failure from diastolic dysfunction. Ejection fraction not known. 3. Permanent pacemaker, underlying sick sinus syndrome. 4. Diabetes mellitus type 2, chronically on insulin. 5. Essential hypertension. 6. Primary osteoarthritis. 7. Paroxysmal atrial fibrillation. 8. Coronary artery disease with prior history of stent. 9. Essential hypertension. 10.Chronic kidney disease stage III from nephrosclerosis. 11.History of intracranial bleed following a brain mass. Seizure following this. 12.Acute psychosis. CONSULTATION: Dr. Fredrick Kidd from Cardiology. HOSPITAL COURSE: This patient presented with chest pain, troponins were negative. The patient did undergo a dobutamine echocardiogram that was negative. Patient is having psychotic features, example talking about family members feet, animals flying in room. Patient was seen by the Psychiatry team, accepted to go down to the psychiatry unit. No further chest pain. PHYSICAL EXAMINATION: Temperature 98.1, pulse 62, respiratory 18, blood pressure 110/51, pulse ox 92% on room air. LUNGS: Slightly decreased breath sounds. CARDIOVASCULAR: First and second sounds are normal. DISCHARGE MEDICATIONS: 1. Zoloft 150 mg a day. 2. Bentyl 10 mg p.o. a.c. t.i.d. 3. Ventolin HFA 1 to 2 puffs q.6 p.r.n. 4. Calcium carbonate 5 mg p.o. daily. 5. Iron 325 p.o. daily. 6. Lasix 40 mg p.o. daily. 7. Labetalol 100 mg p.o. q.12. 8. Potassium 8 mEq p.o. daily. 9. Tylenol 500 mg q.4 to 6 p.r.n. 10.Neurontin 300 mg b.i.d. 11.Lantus 56 units subcu q.h.s. 12.Norvasc 10 mg p.o. daily. 13.Keppra 500 mg p.o. q.12. 14.Prednisone Forte 1% 1 drop to left eye daily. 15.Lipitor 40 mg q.h.s. 16.Plavix 75 mg p.o. daily. 17.Nitrostat 0.4 sublingual q.5 p.r.n. 18.Aspirin 81 mg daily. 19.Prilosec 20 mg b.i.d. 20.Amanda 1 drop Saturday and Saturday. 21.Kenalog 0.1% application topical b.i.d. 22.Wellbutrin SR 100 mg p.o. daily. 23.Imdur ER 30 mg p.o. daily. 24.Hydralazine 75 mg p.o. t.i.d. DISPOSITION: [address] [place] [address] psychiatry unit. FOLLOWUP: Follow up with Dr. Willingham after discharge from the unit. MMODL / IJN: [id number] /
== END 2018-07-10 20:12 | DRG 313 ==
LOC: EC 05:39 → 1SOBS 08:41 → OBSVTOIN 07-10 14:06
PROVIDERS: ADMIT Hospitalist; ATTEND Hospitalist
DX: R07.89 Other chest pain (principal); I50.32 Chronic diastolic (congestive) heart failure; I13.0 Hypertensive heart and chronic kidney disease with heart failure and stage 1 through stage 4 chronic kidney disease, or unspecified chronic kidney disease; F23 Brief psychotic disorder; I25.10 Atherosclerotic heart disease of native coronary artery without angina pectoris; I48.0 Paroxysmal atrial fibrillation; M19.91 Primary osteoarthritis, unspecified site; E11.22 Type 2 diabetes mellitus with diabetic chronic kidney disease; N18.3 Chronic kidney disease, stage 3 (moderate); Z96.1 Presence of intraocular lens; R56.9 Unspecified convulsions; F32.9 Major depressive disorder, single episode, unspecified; J45.909 Unspecified asthma, uncomplicated; I08.3 Combined rheumatic disorders of mitral, aortic and tricuspid valves; E78.5 Hyperlipidemia, unspecified; Z79.4 Long term (current) use of insulin; Z95.0 Presence of cardiac pacemaker; Z95.5 Presence of coronary angioplasty implant and graft; Z98.890 Other specified postprocedural states; Z90.49 Acquired absence of other specified parts of digestive tract; Z98.41 Cataract extraction status, right eye; Z90.710 Acquired absence of both cervix and uterus; Z79.82 Long term (current) use of aspirin; Z79.899 Other long term (current) drug therapy; Z79.02 Long term (current) use of antithrombotics/antiplatelets; I25.2 Old myocardial infarction; Z86.73 Personal history of transient ischemic attack (TIA), and cerebral infarction without residual deficits; Z86.14 Personal history of Methicillin resistant Staphylococcus aureus infection; Z80.8 Family history of malignant neoplasm of other organs or systems; Z85.42 Personal history of malignant neoplasm of other parts of uterus; Z85.828 Personal history of other malignant neoplasm of skin; Z87.11 Personal history of peptic ulcer disease; Z82.49 Family history of ischemic heart disease and other diseases of the circulatory system; Z82.5 Family history of asthma and other chronic lower respiratory diseases
CPT/HCPCS: 36415; 71046; 80053; 81003; 83735; 83880; 84484; 85025; 85610; 85730; 93005; 93351; 94640; 99285

== ENCOUNTER 2018-07-10 19:52 | Inpatient (IN) | payer MEDICARE ==
[2018-07-10] MEDS ORDERED: MAG HYDROX/AL HYDROX/SIMETH 30 ML CUP PO PRN (20:43)
[2018-07-10] MEDS ORDERED: MAGNESIUM HYDROXIDE 2,400 MG/10 ML CUP PO PRN (20:43)
[2018-07-10] MEDS ORDERED: NITROGLYCERIN SL TABS 0.4 MG TAB SUBLINGUAL PRN (20:48)
[2018-07-10 20:55] LABS: Glucose,Whole Blood 145 mg/dL (75-99)
[2018-07-10] MEDS: ATORVASTATIN 40 MG TAB PO SCH (21:59)
[2018-07-10] MEDS: GABAPENTIN 300 MG CAP PO SCH (21:59)
[2018-07-10] MEDS: LABETALOL 100 MG TAB PO SCH (21:59)
[2018-07-10] MEDS: PANTOPRAZOLE 40 MG TABLET PO SCH (22:00)
[2018-07-10] MEDS: hydrALAZINE HCL 25 MG TAB PO SCH (22:00)
[2018-07-10] MEDS: levETIRAcetam 500 MG TAB PO SCH (22:00)
[2018-07-10] MEDS ORDERED: INSULIN DETEMIR (LEVEMIR) 100 UNIT/ML SYR SQ SCH (22:00)
[2018-07-10] MEDS: TRIAMCINOLONE ACET 0.1% OINTMENT 15 GM TUBE TOPICAL SCH (22:00)
[2018-07-10 22:46] VITALS: BMI 33.5
[2018-07-11 06:29] LABS: Glucose,Whole Blood 81 mg/dL (75-99)
[2018-07-11] MEDS: PANTOPRAZOLE 40 MG TABLET PO SCH ×2 (08:13→21:55)
[2018-07-11] MEDS: prednisoLONE ACETATE 1% OPHTH DROPS 5 ML BTL LEFT EYE SCH (08:13)
[2018-07-11] MEDS: SODIUM CHLORIDE 5% OPHTH DROPS 15 ML BTL RIGHT EYE SCH (08:13)
[2018-07-11] MEDS: ASPIRIN 81 MG PO SCH (08:13)
[2018-07-11] MEDS: TRIAMCINOLONE ACET 0.1% OINTMENT 15 GM TUBE TOPICAL SCH ×2 (08:13→22:12)
[2018-07-11] MEDS: GABAPENTIN 300 MG CAP PO SCH ×2 (08:13→21:55)
[2018-07-11] MEDS: amLODIPine 10 MG TAB PO SCH (08:14)
[2018-07-11] MEDS: hydrALAZINE HCL 25 MG TAB PO SCH ×3 (08:14→22:12)
[2018-07-11] MEDS: POTASSIUM CHLORIDE ER 10 MEQ TAB.ER.PRT PO SCH (08:14)
[2018-07-11] MEDS: levETIRAcetam 500 MG TAB PO SCH ×2 (08:14→21:55)
[2018-07-11] MEDS: ISOSORBIDE MONONITRATE ER 30 MG TAB.ER.24H PO SCH (08:14)
[2018-07-11] MEDS: FERROUS SULFATE 325 MG TAB PO SCH (08:14)
[2018-07-11] MEDS: FUROSEMIDE 40 MG TAB PO SCH (08:14)
[2018-07-11] MEDS: LABETALOL 100 MG TAB PO SCH ×2 (08:14→22:12)
[2018-07-11] MEDS: SERTRALINE 50 MG TAB PO SCH (08:14)
[2018-07-11] MEDS: CALCIUM CARBONATE 500 MG CHEWABLE PO SCH (08:14)
[2018-07-11] MEDS: buPROPion SR 100 MG TABLET.ER PO SCH (08:14)
[2018-07-11] MEDS: CLOPIDOGREL 75 MG TAB PO SCH (08:14)
[2018-07-11] MEDS: ALBUTEROL INHALER 60 PUFF/8 GM INHALER INHALATION PRN ×3 (08:24→19:44)
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
[2018-07-11 12:38] LABS: Glucose,Whole Blood 110 mg/dL (75-99)
[2018-07-11 17:38] LABS: Glucose,Whole Blood 148 mg/dL (75-99)
[2018-07-11 21:20] LABS: Glucose,Whole Blood 229 mg/dL (75-99)
[2018-07-11] MEDS: INSULIN DETEMIR (LEVEMIR) 100 UNIT/ML SYR SQ SCH (21:54)
[2018-07-11] MEDS: QUEtiapine 25 MG TAB PO SCH (21:54)
[2018-07-11] MEDS: ATORVASTATIN 40 MG TAB PO SCH (21:55)
[2018-07-12 02:58] LABS: Glucose,Whole Blood 102 mg/dL (75-99)
[2018-07-12 07:06] LABS: Glucose,Whole Blood 81 mg/dL (75-99)
[2018-07-12] MEDS: prednisoLONE ACETATE 1% OPHTH DROPS 5 ML BTL LEFT EYE SCH (08:51)
[2018-07-12] MEDS: FUROSEMIDE 40 MG TAB PO SCH (08:52)
[2018-07-12] MEDS: hydrALAZINE HCL 25 MG TAB PO SCH ×3 (08:52→21:07)
[2018-07-12] MEDS: FERROUS SULFATE 325 MG TAB PO SCH (08:52)
[2018-07-12] MEDS: levETIRAcetam 500 MG TAB PO SCH ×2 (08:52→21:07)
[2018-07-12] MEDS: PANTOPRAZOLE 40 MG TABLET PO SCH ×2 (08:52→21:07)
[2018-07-12] MEDS: ASPIRIN 81 MG PO SCH (08:52)
[2018-07-12] MEDS: POTASSIUM CHLORIDE ER 10 MEQ TAB.ER.PRT PO SCH (08:52)
[2018-07-12] MEDS: CALCIUM CARBONATE 500 MG CHEWABLE PO SCH (08:52)
[2018-07-12] MEDS: CLOPIDOGREL 75 MG TAB PO SCH (08:52)
[2018-07-12] MEDS: LABETALOL 100 MG TAB PO SCH ×2 (08:52→21:07)
[2018-07-12] MEDS: GABAPENTIN 300 MG CAP PO SCH ×2 (08:52→21:07)
[2018-07-12] MEDS: ISOSORBIDE MONONITRATE ER 30 MG TAB.ER.24H PO SCH (08:52)
[2018-07-12] MEDS: amLODIPine 10 MG TAB PO SCH (08:52)
[2018-07-12] MEDS: buPROPion SR 100 MG TABLET.ER PO SCH (08:52)
[2018-07-12] MEDS: SERTRALINE 50 MG TAB PO SCH (08:53)
[2018-07-12] MEDS: TRIAMCINOLONE ACET 0.1% OINTMENT 15 GM TUBE TOPICAL SCH ×2 (08:54→21:07)
--- NOTE | 2018-07-12 11:20 | P.PN ---
Progress Note - Text Progress Note Date: 07/12/18 Interval history: [place] [facility] [place] She is found in her room lying in bed. She awakens with name-calling. She reports that earlier today when she ate she had some reflux. She describes her mood is doing okay today. She seems to be compliant with her medication regimen. Mental status exam: She is found in her room lying in bed. She awakens with name-calling. She does not show any agitation. Her mood she describes is okay. She denies any thoughts of harm to self or others. She describes a "sizzling" sound that overall is improved. Plan: Patient will be maintained on current psychotropic medication regimen. Continue to monitor for any medication side effects monitor her ongoing response to treatment.
[2018-07-12] MEDS: ACETAMINOPHEN TAB 325 MG TAB PO PRN ×2 (13:01→21:18)
[2018-07-12 13:02] LABS: Glucose,Whole Blood 137 mg/dL (75-99)
[2018-07-12] MEDS: ALBUTEROL INHALER 60 PUFF/8 GM INHALER INHALATION PRN ×2 (13:35→19:19)
[2018-07-12 17:41] LABS: Glucose,Whole Blood 119 mg/dL (75-99)
[2018-07-12 20:07] LABS: Glucose,Whole Blood 216 mg/dL (75-99)
[2018-07-12] MEDS: INSULIN DETEMIR (LEVEMIR) 100 UNIT/ML SYR SQ SCH (21:07)
[2018-07-12] MEDS: QUEtiapine 25 MG TAB PO SCH (21:07)
[2018-07-12] MEDS: ATORVASTATIN 40 MG TAB PO SCH (21:07)
[2018-07-13 07:13] LABS: Glucose,Whole Blood 63 mg/dL (75-99)
[2018-07-13 07:28] LABS: Glucose,Whole Blood 112 mg/dL (75-99)
[2018-07-13] MEDS: buPROPion SR 100 MG TABLET.ER PO SCH (09:19)
[2018-07-13] MEDS: hydrALAZINE HCL 25 MG TAB PO SCH ×3 (09:19→21:13)
[2018-07-13] MEDS: prednisoLONE ACETATE 1% OPHTH DROPS 5 ML BTL LEFT EYE SCH (09:19)
[2018-07-13] MEDS: CALCIUM CARBONATE 500 MG CHEWABLE PO SCH (09:19)
[2018-07-13] MEDS: CLOPIDOGREL 75 MG TAB PO SCH (09:19)
[2018-07-13] MEDS: FUROSEMIDE 40 MG TAB PO SCH (09:19)
[2018-07-13] MEDS: GABAPENTIN 300 MG CAP PO SCH ×2 (09:19→21:13)
[2018-07-13] MEDS: ISOSORBIDE MONONITRATE ER 30 MG TAB.ER.24H PO SCH (09:19)
[2018-07-13] MEDS: ASPIRIN 81 MG PO SCH (09:20)
[2018-07-13] MEDS: LABETALOL 100 MG TAB PO SCH ×2 (09:20→21:13)
[2018-07-13] MEDS: FERROUS SULFATE 325 MG TAB PO SCH (09:20)
[2018-07-13] MEDS: SERTRALINE 50 MG TAB PO SCH (09:20)
[2018-07-13] MEDS: amLODIPine 10 MG TAB PO SCH (09:20)
[2018-07-13] MEDS: levETIRAcetam 500 MG TAB PO SCH ×2 (09:20→21:13)
[2018-07-13] MEDS: PANTOPRAZOLE 40 MG TABLET PO SCH ×2 (09:20→21:13)
[2018-07-13] MEDS: POTASSIUM CHLORIDE ER 10 MEQ TAB.ER.PRT PO SCH (09:20)
--- NOTE | 2018-07-13 09:20 | P.PN ---
Progress Note - Text Progress Note Date: 07/13/18 Interval history: Patient is seen in [facility] [place] today again. She is found in her room lying in bed. She says she slept well last night and she seems to be eating well. She does not verbalize any adverse psychotropic medication side effects. Mental status exam: She is alert and cooperative. Her speech is fluent, not rapid or pressured. Thought processes are organized. Her mood she describes improvement. She denies any thoughts of harm to self or others. There is no active evidence of psychosis. Plan: Patient will be maintained on current psychotropic medication regimen. Continue to monitor for any medication side effects and monitor her ongoing response to treatment.
[2018-07-13] MEDS: TRIAMCINOLONE ACET 0.1% OINTMENT 15 GM TUBE TOPICAL SCH ×2 (09:21→21:12)
[2018-07-13 12:27] LABS: Glucose,Whole Blood 110 mg/dL (75-99)
[2018-07-13] MEDS: ALBUTEROL INHALER 60 PUFF/8 GM INHALER INHALATION PRN ×2 (13:23→20:50)
[2018-07-13 17:29] LABS: Glucose,Whole Blood 143 mg/dL (75-99)
[2018-07-13 20:08] LABS: Glucose,Whole Blood 201 mg/dL (75-99)
[2018-07-13] MEDS: QUEtiapine 25 MG TAB PO SCH (21:13)
[2018-07-13] MEDS: INSULIN DETEMIR (LEVEMIR) 100 UNIT/ML SYR SQ SCH (21:13)
[2018-07-13] MEDS: ATORVASTATIN 40 MG TAB PO SCH (21:13)
[2018-07-14 06:56] LABS: Glucose,Whole Blood 98 mg/dL (75-99)
[2018-07-14] MEDS: ACETAMINOPHEN TAB 325 MG TAB PO PRN ×2 (08:33→17:31)
[2018-07-14] MEDS: ASPIRIN 81 MG PO SCH (08:34)
[2018-07-14] MEDS: FUROSEMIDE 40 MG TAB PO SCH (08:34)
[2018-07-14] MEDS: CLOPIDOGREL 75 MG TAB PO SCH (08:34)
[2018-07-14] MEDS: SERTRALINE 50 MG TAB PO SCH (08:34)
[2018-07-14] MEDS: PANTOPRAZOLE 40 MG TABLET PO SCH ×2 (08:35→20:10)
[2018-07-14] MEDS: hydrALAZINE HCL 25 MG TAB PO SCH ×3 (08:35→20:10)
[2018-07-14] MEDS: amLODIPine 10 MG TAB PO SCH (09:14)
[2018-07-14] MEDS: CALCIUM CARBONATE 500 MG CHEWABLE PO SCH (09:14)
[2018-07-14] MEDS: buPROPion SR 100 MG TABLET.ER PO SCH (09:14)
[2018-07-14] MEDS: GABAPENTIN 300 MG CAP PO SCH ×2 (09:15→20:09)
[2018-07-14] MEDS: POTASSIUM CHLORIDE ER 10 MEQ TAB.ER.PRT PO SCH (09:15)
[2018-07-14] MEDS: FERROUS SULFATE 325 MG TAB PO SCH (09:15)
[2018-07-14] MEDS: levETIRAcetam 500 MG TAB PO SCH ×2 (09:15→20:10)
[2018-07-14] MEDS: ISOSORBIDE MONONITRATE ER 30 MG TAB.ER.24H PO SCH (09:15)
[2018-07-14] MEDS: LABETALOL 100 MG TAB PO SCH ×2 (09:15→20:10)
[2018-07-14] MEDS: prednisoLONE ACETATE 1% OPHTH DROPS 5 ML BTL LEFT EYE SCH (09:33)
[2018-07-14] MEDS: SODIUM CHLORIDE 5% OPHTH DROPS 15 ML BTL RIGHT EYE SCH (09:33)
[2018-07-14] MEDS: TRIAMCINOLONE ACET 0.1% OINTMENT 15 GM TUBE TOPICAL SCH ×2 (09:34→20:10)
[2018-07-14] MEDS: ALBUTEROL INHALER 60 PUFF/8 GM INHALER INHALATION PRN ×3 (09:38→21:16)
--- NOTE | 2018-07-14 10:21 | P.PN ---
Progress Note - Text Interval history: The patient is found in her room she seated in a wheelchair. She is wearing her nasal cannula oxygen and has the oxygen condenser running. She indicates that her mood isn't so good she describes having a headache this morning. She reports having some difficulty with sleep last evening. Staff reported she slept 5 hours. She states she continues to smell smoke. She continues to have the same hissing noise in her ears. She continues to feel unsafe. She briefly becomes tearful and asks that we do not discharge her today as she doesn't feel safe at home. Mental status exam: The patient is an overweight female she has a disheveled appearance she is dressed in hospital gowns. She is wearing nasal c annula oxygen. She reports an auditory hallucination an olfactory hallucination and continued paranoid thoughts as noted above. She reports no thoughts of harming herself or others. Affect is quite bland except for the brief tearfulness. She demonstrates no verbal or physical aggressiveness. She does have some pre-existing tremor of her upper extremities. She demonstrated no tangential thinking loose associations or flight of ideas. Plan: The patient will continue on the Seroquel we will titrate the dose to 50 mg at bedtime. Vital signs reviewed she is not hypotensive. We will monitor her for safety. It appears her symptoms of psychosis are impacting her overall psychosocial function. She is encouraged to participate fully in the milieu.
[2018-07-14 12:33] LABS: Glucose,Whole Blood 108 mg/dL (75-99)
[2018-07-14 17:31] LABS: Glucose,Whole Blood 168 mg/dL (75-99)
[2018-07-14 20:09] LABS: Glucose,Whole Blood 293 mg/dL (75-99)
[2018-07-14] MEDS: ATORVASTATIN 40 MG TAB PO SCH (20:09)
[2018-07-14] MEDS: QUEtiapine 50 MG TAB PO SCH (20:10)
[2018-07-14] MEDS: INSULIN DETEMIR (LEVEMIR) 100 UNIT/ML SYR SQ SCH (21:26)
[2018-07-15 06:22] LABS: Glucose,Whole Blood 102 mg/dL (75-99)
[2018-07-15] MEDS: ALBUTEROL INHALER 60 PUFF/8 GM INHALER INHALATION PRN ×3 (07:46→20:12)
[2018-07-15] MEDS: amLODIPine 10 MG TAB PO SCH (08:19)
[2018-07-15] MEDS: SERTRALINE 50 MG TAB PO SCH (08:19)
[2018-07-15] MEDS: CALCIUM CARBONATE 500 MG CHEWABLE PO SCH (08:19)
[2018-07-15] MEDS: LABETALOL 100 MG TAB PO SCH ×2 (08:19→21:23)
[2018-07-15] MEDS: PANTOPRAZOLE 40 MG TABLET PO SCH ×2 (08:19→21:23)
[2018-07-15] MEDS: hydrALAZINE HCL 25 MG TAB PO SCH ×3 (08:19→21:24)
[2018-07-15] MEDS: FUROSEMIDE 40 MG TAB PO SCH (08:20)
[2018-07-15] MEDS: levETIRAcetam 500 MG TAB PO SCH ×2 (08:20→21:24)
[2018-07-15] MEDS: buPROPion SR 100 MG TABLET.ER PO SCH (08:20)
[2018-07-15] MEDS: ASPIRIN 81 MG PO SCH (08:20)
[2018-07-15] MEDS: POTASSIUM CHLORIDE ER 10 MEQ TAB.ER.PRT PO SCH (08:20)
[2018-07-15] MEDS: GABAPENTIN 300 MG CAP PO SCH ×2 (08:20→21:23)
[2018-07-15] MEDS: CLOPIDOGREL 75 MG TAB PO SCH (08:20)
[2018-07-15] MEDS: FERROUS SULFATE 325 MG TAB PO SCH (08:20)
[2018-07-15] MEDS: ISOSORBIDE MONONITRATE ER 30 MG TAB.ER.24H PO SCH (08:20)
[2018-07-15] MEDS: TRIAMCINOLONE ACET 0.1% OINTMENT 15 GM TUBE TOPICAL SCH ×2 (08:31→21:24)
[2018-07-15] MEDS: prednisoLONE ACETATE 1% OPHTH DROPS 5 ML BTL LEFT EYE SCH (08:31)
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
[2018-07-15 12:29] LABS: Glucose,Whole Blood 114 mg/dL (75-99)
[2018-07-15 17:40] LABS: Glucose,Whole Blood 127 mg/dL (75-99)
[2018-07-15 20:07] LABS: Glucose,Whole Blood 257 mg/dL (75-99)
[2018-07-15] MEDS: QUEtiapine 50 MG TAB PO SCH (21:23)
[2018-07-15] MEDS: ATORVASTATIN 40 MG TAB PO SCH (21:23)
[2018-07-15] MEDS: INSULIN DETEMIR (LEVEMIR) 100 UNIT/ML SYR SQ SCH (21:24)
[2018-07-16 04:10] LABS: Glucose,Whole Blood 90 mg/dL (75-99)
[2018-07-16 04:10] LABS: Glucose,Whole Blood 40 mg/dL (75-99)
[2018-07-16 04:10] LABS: Glucose,Whole Blood 52 mg/dL (75-99)
[2018-07-16 06:29] LABS: Glucose,Whole Blood 132 mg/dL (75-99)
[2018-07-16 06:34] VITALS: TEMP 97.7
[2018-07-16] MEDS: PANTOPRAZOLE 40 MG TABLET PO SCH ×2 (08:44→20:24)
[2018-07-16] MEDS: ASPIRIN 81 MG PO SCH (08:44)
[2018-07-16] MEDS: hydrALAZINE HCL 25 MG TAB PO SCH ×3 (08:44→20:24)
[2018-07-16] MEDS: GABAPENTIN 300 MG CAP PO SCH ×2 (08:44→20:23)
[2018-07-16] MEDS: TRIAMCINOLONE ACET 0.1% OINTMENT 15 GM TUBE TOPICAL SCH ×2 (08:45→20:43)
[2018-07-16] MEDS: POTASSIUM CHLORIDE ER 10 MEQ TAB.ER.PRT PO SCH (08:45)
[2018-07-16] MEDS: SERTRALINE 50 MG TAB PO SCH (08:45)
[2018-07-16] MEDS: LABETALOL 100 MG TAB PO SCH ×2 (08:45→20:23)
[2018-07-16] MEDS: CALCIUM CARBONATE 500 MG CHEWABLE PO SCH (08:45)
[2018-07-16] MEDS: amLODIPine 10 MG TAB PO SCH (08:45)
[2018-07-16] MEDS: FUROSEMIDE 40 MG TAB PO SCH (08:45)
[2018-07-16] MEDS: CLOPIDOGREL 75 MG TAB PO SCH (08:45)
[2018-07-16] MEDS: FERROUS SULFATE 325 MG TAB PO SCH (08:45)
[2018-07-16] MEDS: ISOSORBIDE MONONITRATE ER 30 MG TAB.ER.24H PO SCH (08:45)
[2018-07-16] MEDS: levETIRAcetam 500 MG TAB PO SCH ×2 (08:45→20:24)
[2018-07-16] MEDS: prednisoLONE ACETATE 1% OPHTH DROPS 5 ML BTL LEFT EYE SCH (08:48)
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
[2018-07-16] MEDS: ALBUTEROL INHALER 60 PUFF/8 GM INHALER INHALATION PRN ×2 (10:22→21:29)
[2018-07-16 12:42] LABS: Glucose,Whole Blood 125 mg/dL (75-99)
[2018-07-16 17:38] LABS: Glucose,Whole Blood 145 mg/dL (75-99)
[2018-07-16 20:08] LABS: Glucose,Whole Blood 232 mg/dL (75-99)
[2018-07-16] MEDS: INSULIN DETEMIR (LEVEMIR) 100 UNIT/ML SYR SQ SCH (20:08)
[2018-07-16] MEDS: ATORVASTATIN 40 MG TAB PO SCH (20:23)
[2018-07-16] MEDS: QUEtiapine 25 MG TAB PO SCH (20:24)
--- NOTE | 2018-07-16 21:19 | P.MDCNMH ---
History of Present Illness H&P Date: 07/16/18 Chief Complaint: Medical management Patient is a 72-year-old female with a known history of CHF with diastolic dysfunction, sick sinus syndrome status post pacemaker placement hypertension, diabetes type 2, osteoarthritis depression, coronary artery disease with stent placement to the mid and proximal LAD on 06/06/2018, intracranial bleed following tumor removal, hyperlipidemia, chronic kidney disease and asthma initially admitted to the hospital with complaints of chest discomfort on 07/09/2018. Patient was seen by cardiology and underwent dobutamine stress echocardiogram which was negative study. Patient was having psychotic symptoms with delusions and hallucinations, eventually was transferred to inpatient psychiatric unit for further management. Patient is currently more awake and oriented. Cooperative. Denied any complaints of chest pain or shortness of breath. No nausea vomiting or abdominal pain. No diarrhea. No dysuria or hematuria.. Recent laboratory data reviewed. Review of Systems Constitutional: Patient denies any fever or chills . No generalized weakness or weight loss. Abdomen: Patient denied nausea vomiting and diarrhea and abdominal pain. Cardiovascular: Patient denies any chest pain or short of breath no palpitations. Respiratory: patient denied any cough is from production. No shortness of breath Neurologic: Patient denied any numbness or tingling headache. Musculoskeletal: Patient denies any complaints of joint swelling or deformity. Skin: Negative Psychiatric: Negative Endocrine: No heat or cold intolerance. No recent weight gain. Genitourinary: No dysuria or hematuria. 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 History of Any Multi-Drug Resistant Organisms: MRSA Date of last positivie culture/infection: 06/05/18 MDRO Source:: URINE Past Surgical History: Cholecystectomy, Heart Catheterization, Heart Catheterization With Stent, Hysterectomy, Pacemaker Additional Past Surgical History / Comment(s): Evacuation on intracranial hematoma and ressection of hemorrhagic mass, pacemaker feb. 2017, PCI with stent 06/06/18, EGD/colonoscopy, R eye corneal implant/cataract removal, EGD 06/2018, colonoscopy, skin cancer removal. Past Anesthesia/Blood Transfusion Reactions: No Reported Reaction Additional Past Anesthesia/Blood Transfusion Reaction / Comment(s): no previous blood transfusions Date of Last Stent Placement:: 06/06/18 Type of Cardiac Device: Permanent Pacemaker Device Placement Date:: 04/2016 Smoking Status: Never smoker - Past Family History Mother Family Medical History: Cancer, COPD, Hypertension Additional Family Medical History / Comment(s): Mother had bone cancer. Father Family Medical History: Cancer, Hypertension Additional Family Medical History / Comment(s): Father had skin cancer. Medications and Allergies Home Medications Medication Instructions Recorded Confirmed Type Sertraline [Zoloft] 150 mg PO DAILY 01/04/14 07/10/18 History Dicyclomine [Bentyl] 10 mg PO AC-TID 03/21/17 07/10/18 History Albuterol Inhaler [Ventolin Hfa 1 - 2 puff INHALATION RT-Q6H PRN 03/27/18 07/10/18 History Inhaler] Calcium Carbonate 500 mg PO DAILY 03/27/18 07/10/18 History Ferrous Sulfate [Iron (65 MG 325 mg PO DAILY 03/27/18 07/10/18 History Elemental)] Furosemide [Lasix] 40 mg PO DAILY 03/27/18 07/10/18 History Labetalol [Trandate] 100 mg PO Q12H 03/27/18 07/10/18 History Potassium Chloride [Klor-Con 8] 8 meq PO DAILY 03/27/18 07/10/18 History Acetaminophen Tab [Tylenol] 500 mg PO Q4-6H PRN 06/04/18 07/10/18 History Gabapentin [Neurontin] 300 mg PO BID 06/04/18 07/10/18 History Insulin Glargine [Lantus] 56 unit SQ HS 06/04/18 07/10/18 History amLODIPine [Norvasc] 10 mg PO DAILY 06/04/18 07/10/18 History levETIRAcetam [Keppra] 500 mg PO Q12HR 06/04/18 07/10/18 History prednisoLONE ACETATE [Pred Forte 1 drop LEFT EYE DAILY 06/04/18 07/10/18 History 1%] Atorvastatin [Lipitor] 40 mg PO HS #90 tab 06/07/18 07/10/18 Rx Clopidogrel [Plavix] 75 mg PO DAILY #90 tab 06/07/18 07/10/18 Rx Nitroglycerin Sl Tabs [Nitrostat] 0.4 mg SUBLINGUAL Q5M PRN #14 tab 06/07/18 07/10/18 Rx Aspirin 81 mg PO DAILY chew 06/11/18 07/10/18 Rx Omeprazole [PriLOSEC] 20 mg PO BID #60 capsule.dr 06/13/18 07/10/18 Rx Sodium Chloride 5% Ophth Soln 1 drops RIGHT EYE MOFR 06/26/18 07/10/18 History [Amanda 128] Triamcinolone 0.1% Ointment 1 applic TOPICAL BID 06/26/18 07/10/18 History [Kenalog 0.1% Ointment] buPROPion SR [Wellbutrin SR] 100 mg PO DAILY 06/26/18 07/10/18 History Isosorbide Mononitrate ER [Imdur] 30 mg PO DAILY #30 tab.er.24h 07/03/18 07/10/18 Rx hydrALAZINE HCL [Apresoline] 75 mg PO TID #90 tab 07/03/18 07/10/18 Rx Allergies Allergy/AdvReac Type Severity Reaction Status Date / Time Latex, Natural Rubber Allergy Itching Verified 07/10/18 20:43 sulfamethoxazole Allergy Rash/Hives Verified 07/10/18 20:43 [From Bactrim] trimethoprim [From Bactrim] Allergy Rash/Hives Verified 07/10/18 20:43 Physical Exam Vitals: Vital Signs Temp Pulse Resp BP Pulse Ox 07/16/18 20:43 62 20 146/62 92 L 07/16/18 08:54 60 148/69 07/16/18 06:10 97.7 F 61 12 115/58 07/15/18 21:52 60 14 142/63 95 PHYSICAL EXAMINATION: Patient is lying in the bed comfortably, no acute distress, awake alert and oriented.. HEENT: Normocephalic. Neck is supple. Pupils reactive. Nostrils clear. Oral cavity is moist. Ears reveal no drainage. Neck reveals no JVD, carotid bruits, or thyromegaly. CHEST EXAMINATION: Trachea is central. Symmetrical expansion. Lung aly clear to auscultation and percussion. CARDIAC: Normal S1, S2 with no gallops. No murmurs ABDOMEN: Soft. Bowel sounds normal. No organomegaly. No abdominal bruits. Extremities: reveal no edema. No clubbing or cyanosis Neurologically awake, alert, oriented x3 with well-coordinated movements. No focal deficits noted Skin: No rash or skin lesions. Psychiatric: Coperative. Nonsuicidal Musculoskeletal: No joint swelling or deformity. Normal range of motion. Cranial Nerve Examination - Cranial Nerves Cranial Nerve I- Olfactory: Intact Cranial Nerve II- Optic: Intact Cranial Nerve III- Oculomotor: Intact Cranial Nerve IV- Trochlear: Intact Cranial Nerve V- Trigeminal: Intact Cranial Nerve - Abducens: Intact Cranial Nerve VII- Facial: Intact Cranial Nerve VIII- Auditory: Intact Cranial Nerve IX- Glossopharyngeal: Intact Cranial Nerve X- Vagus: Intact Cranial Nerve XI- Accessory: Intact Cranial Nerve XII- Hypoglossal: Intact Results CBC & Chem 7: 07/16/18 04:00 Labs: Abnormal Lab Results - Last 24 Hours (Table) 07/16/18 07/16/18 07/16/18 Range/Units 03:32 03:50 04:00 Glucose 69 L (74-99) mg/dL POC Glucose (mg/dL) 40 L 52 L (75-99) mg/dL 07/16/18 07/16/18 07/16/18 Range/Units 06:27 12:37 17:34 Glucose (74-99) mg/dL POC Glucose (mg/dL) 132 H 125 H 145 H (75-99) mg/dL 07/16/18 Range/Units 20:03 Glucose (74-99) mg/dL POC Glucose (mg/dL) 232 H (75-99) mg/dL Assessment and Plan Assessment: -Acute psychosis. Improved symptomatically. Currently patient is being managed in the inpatient psychiatric unit. -Chest tightness with shortness of breath. Ruled out acute coronary syndrome. EKG showed T-wave inversion in the inferior and anterolateral leads. Status post- persantine and stress test-negative for inducible ischemia on 07/02/2018 and dobutamine stress echocardiogram negative on 07/10/2018. -Coronary artery disease status post stent placement to LAD on 06/06/2018 -Chronic CHF with diastolic dysfunction -History of MRSA urinary tract infection was on doxycycline -Reason GI bleed status post EGD showed erosive gastritis without active bleeding -Paroxysmal atrial fibrillation not on anticoagulation due to history of intracranial hemorrhage and seizures followed by tumor resection. -moderate persistent bronchial asthma -Hypertension -Hyperlipidemia- -diabetes type 2- -Depression -Chronic kidney disease stage III -Medical debility and poor baseline functional status -DVT prophylaxis. Ambulation Plan: Patient will be continued on dual antiplatelet therapy with aspirin and Plavix. Continue with statins, blood pressure medications including Lasix, Imdur, hydralazine and labetalol. Continue with your psychiatric management. We will follow up closely. Further recommendations based on the clinical course. Thank you for your consult. Time with Patient: Greater than 30
[2018-07-17 06:40] LABS: Glucose,Whole Blood 88 mg/dL (75-99)
[2018-07-17 07:29] VITALS: PULSE 60
[2018-07-17] MEDS: levETIRAcetam 500 MG TAB PO SCH ×2 (07:52→19:57)
[2018-07-17] MEDS: amLODIPine 10 MG TAB PO SCH (07:52)
[2018-07-17] MEDS: FERROUS SULFATE 325 MG TAB PO SCH (07:52)
[2018-07-17] MEDS: CALCIUM CARBONATE 500 MG CHEWABLE PO SCH (07:52)
[2018-07-17] MEDS: PANTOPRAZOLE 40 MG TABLET PO SCH ×2 (07:52→19:58)
[2018-07-17] MEDS: prednisoLONE ACETATE 1% OPHTH DROPS 5 ML BTL LEFT EYE SCH (07:52)
[2018-07-17] MEDS: POTASSIUM CHLORIDE ER 10 MEQ TAB.ER.PRT PO SCH (07:53)
[2018-07-17] MEDS: SERTRALINE 50 MG TAB PO SCH (07:53)
[2018-07-17] MEDS: ISOSORBIDE MONONITRATE ER 30 MG TAB.ER.24H PO SCH (07:53)
[2018-07-17] MEDS: CLOPIDOGREL 75 MG TAB PO SCH (07:53)
[2018-07-17] MEDS: hydrALAZINE HCL 25 MG TAB PO SCH ×3 (07:53→19:58)
[2018-07-17] MEDS: ASPIRIN 81 MG PO SCH (07:53)
[2018-07-17] MEDS: GABAPENTIN 300 MG CAP PO SCH ×2 (07:54→19:57)
[2018-07-17] MEDS: LABETALOL 100 MG TAB PO SCH ×2 (07:54→19:57)
[2018-07-17] MEDS: FUROSEMIDE 40 MG TAB PO SCH (07:54)
[2018-07-17] MEDS: TRIAMCINOLONE ACET 0.1% OINTMENT 15 GM TUBE TOPICAL SCH ×2 (08:16→21:27)
[2018-07-17 09:13] LABS: Basophils # (A) 0.1 k/uL (0-0.2); Basophils % (A) 1 %; Eosinophils # (A) 0.2 k/uL (0-0.7); Eosinophils % (A) 3 %; HCT 37.4 % (34.0-46.0); HGB 12.3 gm/dL (11.4-16.0); Lymphocytes # (A) 1.7 k/uL (1.0-4.8); Lymphocytes % (A) 27 %; MCH 28.7 pg (25.0-35.0); MCV 86.9 fL (80.0-100.0); Mean Platelet Volume 7.3; Monocytes # (A) 0.5 k/uL (0-1.0); Monocytes % (A) 8 %; Neutrophils # (A) 3.8 k/uL (1.3-7.7); Neutrophils % (A) 61 %; Platelet Count 199 k/uL (150-450); RDW 13.8 % (11.5-15.5); WBC 6.2 k/uL (3.8-10.6)
[2018-07-17 09:16] LABS: Albumin 4.2 g/dL (3.5-5.0); Calcium 9.7 mg/dL (8.4-10.2); Potassium 3.7 mmol/L (3.5-5.1); Total Bilirubin 0.5 mg/dL (0.2-1.3); Total Protein 6.5 g/dL (6.3-8.2)
--- NOTE | 2018-07-17 09:55 | P.PN ---
Progress Note - Text Interval history: The patient is found in her room she is awake lying in bed. She indicates her mood is better today. She states she slept last night appetite stable. Her son and [id number] did visit last evening and she states that went well she did not feel fearful of him. She has no questions regarding her psychotropic medications. She is endorsing no auditory hallucinations although she continues to hear that noise. She reports that she attended 2 groups yesterday. She is encouraged to participate further. We discussed discharge planning. Social work did contact the patient's son to get his impression of the visit last evening. Mental status exam: The patient is an overweight female. She is lying in bed she is dressed in hospital gowns she is covered with a blanket she's wearing eyeglasses. She is alert and maintains alertness throughout our discussion. Eye contact was good. She does have some chronic hearing deficit. She reports her mood is good she is reporting no suicidal or homicidal ideation intent or plan. She is reporting no visual hallucinations. She does describe the no ways in terms of an auditory hallucination and still smell something burning. She reports no command auditory hallucinations. She states her is no longer speaking to her warning her of danger. She demonstrates no verbal or physical aggressiveness. She demonstrates no evidence of hypomania or stephanie. Insight and judgment improving. Plan: The patient will continue on her current psychotropic medication. We will monitor for safety. There appears to be some improvement in her symptoms of psychosis. We will discuss her case further during treatment team meeting and consider discharge tomorrow if clinically appropriate. Vital signs reviewed. Again she is encouraged to participate more in the milieu.
[2018-07-17] MEDS: ALBUTEROL INHALER 60 PUFF/8 GM INHALER INHALATION PRN ×2 (10:03→20:44)
[2018-07-17 12:30] LABS: Glucose,Whole Blood 148 mg/dL (75-99)
[2018-07-17 18:07] LABS: Glucose,Whole Blood 140 mg/dL (75-99)
[2018-07-17 19:46] LABS: Glucose,Whole Blood 206 mg/dL (75-99)
[2018-07-17] MEDS: ATORVASTATIN 40 MG TAB PO SCH (19:57)
[2018-07-17] MEDS: INSULIN DETEMIR (LEVEMIR) 100 UNIT/ML SYR SQ SCH (19:57)
[2018-07-17] MEDS: QUEtiapine 25 MG TAB PO SCH (19:58)
[2018-07-18 03:36] VITALS: BP 133/62; RESP 16
[2018-07-18 07:06] LABS: Glucose,Whole Blood 62 mg/dL (75-99)
[2018-07-18 07:30] LABS: Glucose,Whole Blood 82 mg/dL (75-99)
[2018-07-18] MEDS: ALBUTEROL INHALER 60 PUFF/8 GM INHALER INHALATION PRN (09:03)
[2018-07-18] MEDS: FUROSEMIDE 40 MG TAB PO SCH (09:07)
[2018-07-18] MEDS: GABAPENTIN 300 MG CAP PO SCH (09:08)
[2018-07-18] MEDS: FERROUS SULFATE 325 MG TAB PO SCH (09:08)
[2018-07-18] MEDS: ISOSORBIDE MONONITRATE ER 30 MG TAB.ER.24H PO SCH (09:08)
[2018-07-18] MEDS: CLOPIDOGREL 75 MG TAB PO SCH (09:08)
[2018-07-18] MEDS: hydrALAZINE HCL 25 MG TAB PO SCH (09:08)
[2018-07-18] MEDS: LABETALOL 100 MG TAB PO SCH (09:08)
[2018-07-18] MEDS: PANTOPRAZOLE 40 MG TABLET PO SCH (09:09)
[2018-07-18] MEDS: ASPIRIN 81 MG PO SCH (09:09)
[2018-07-18] MEDS: POTASSIUM CHLORIDE ER 10 MEQ TAB.ER.PRT PO SCH (09:09)
[2018-07-18] MEDS: levETIRAcetam 500 MG TAB PO SCH (09:09)
[2018-07-18] MEDS: CALCIUM CARBONATE 500 MG CHEWABLE PO SCH (09:10)
[2018-07-18] MEDS: SERTRALINE 50 MG TAB PO SCH (09:10)
[2018-07-18] MEDS: amLODIPine 10 MG TAB PO SCH (09:11)
[2018-07-18] MEDS: prednisoLONE ACETATE 1% OPHTH DROPS 5 ML BTL LEFT EYE SCH (09:12)
[2018-07-18] MEDS: SODIUM CHLORIDE 5% OPHTH DROPS 15 ML BTL RIGHT EYE SCH (09:13)
[2018-07-18] MEDS: TRIAMCINOLONE ACET 0.1% OINTMENT 15 GM TUBE TOPICAL SCH (09:19)
--- NOTE | 2018-07-18 10:28 | P.DS ---
Providers Date of admission: 07/10/18 20:17 Expected date of discharge: 07/18/18 Attending physician: Bulmaro Bingham Consults: 07/10/18 20:43 Consult Physician Routine Consulting Provider: Jhonathan Hatfield Consult Reason/Comments: medical consult and comanage Do you want consulting provider notified?: Yes Primary care physician: Lisa Willingham - Discharge Diagnosis(es) (1) Psychosis Current Visit: Yes Status: Acute Priority: High Hospital Course: Brief summary of admission note: This patient is a 72-year-old who was admitted to the mental health unit from the observation unit with symptoms of psychosis. It was reported for the last 3-4 months she was experiencing hallucinations and paranoid thinking. She states she was hearing her 's voice telling her that someone is trying to hurt or kill her. She stated that people were coming into her home and burning her legs at night. She described an ongoing now weighs that she would hear an ongoing olfactory hallucination of smelling something burning. These occur in the context of her having surgery for removal of a rain tumor. For full details please refer to my psychiatric evaluation dated 07/11/2018. Summary of hospital course: The patient was admitted to the mental health unit voluntarily. We reviewed her presenting symptoms and treatment options. We decided to initiate Seroquel to address symptoms of psychosis and having difficulty sleeping at night. She does have some pre-existing tremor so Seroquel was also chosen due to its lower risk of inducing involuntary movements. The medication was slowly titrated to 75 mg at bedtime. She was continued on Zoloft 150 mg daily. The Wellbutrin was discontinued as she has a history of seizure disorder. The patient attended some groups selectively. She used a wheelchair for mobility. She was seen by internal medicine for routine history and physical exam. There was continued monitoring of her pre-existing chronic kidney disease. Social work has been in contact with the patient's family several times. Her son and [id number] did visit this week. The patient has demonstrated improvement in her psychosis in that she is no longer experiencing auditory hallucinations in the form of voices. She indicates that she feels safe. She is reporting no thoughts of harming herself or others. Mental status exam: The patient is an overweight female appearing her stated age. She is awake she is dressed in hospital gowns she is wearing eyeglasses. She reports her mood is fine. Affect is constricted. She reports no suicidal or homicidal ideation intent or plan. She is reporting no command auditory hallucinations. She is reporting no auditory hallucinations in the form of voices. She does continue to hear a sizzling noise and she reports experiencing and olfactory hallucination of burning. We discussed that these might be related to her intracranial intervention. The severity of paranoid thinking has decreased. On the mental health unit she is able to participate in ADLs with assistance. Insight and judgment has improved. She demonstrates no verbal or physical aggressiveness. She is fully oriented to person place and date. She demonstrates future oriented thinking. Impressions 1. Psychosis unspecified, rule out psychosis related to delirium, rule out psychosis due to mood disorder, history of major depressive disorder 2. Several significant medical comorbidities Plan: The patient will be discharged mental health unit today to return home residing with her son and [id number]. They have requested in-home nursing care. The patient will be continued on Seroquel 75 mg at bedtime and Zoloft 150 mg daily. Social work will arrange outpatient mental health follow-up. At this time there is no imminent safety risk the patient is appropriate for continued care as an outpatient. She is encouraged to follow-up with her primary care physician as scheduled. She is instructed to return to the hospital with any acute safety concerns. Patient Condition at Discharge: Stable Plan - Discharge Summary Discharge Rx Participant: No New Discharge Prescriptions: New QUEtiapine [SEROquel] 75 mg PO HS #45 tab Continue Potassium Chloride [Klor-Con 8] 8 meq PO DAILY Labetalol [Trandate] 100 mg PO Q12H Furosemide [Lasix] 40 mg PO DAILY Calcium Carbonate 500 mg PO DAILY Ferrous Sulfate [Iron (65 MG Elemental)] 325 mg PO DAILY Albuterol Inhaler [Ventolin Hfa Inhaler] 1 - 2 puff INHALATION RT-Q6H PRN PRN Reason: Shortness Of Breath levETIRAcetam [Keppra] 500 mg PO Q12HR amLODIPine [Norvasc] 10 mg PO DAILY Gabapentin [Neurontin] 300 mg PO BID Insulin Glargine [Lantus] 56 unit SQ HS prednisoLONE ACETATE [Pred Forte 1%] 1 drop LEFT EYE DAILY Atorvastatin [Lipitor] 40 mg PO HS #90 tab Nitroglycerin Sl Tabs [Nitrostat] 0.4 mg SUBLINGUAL Q5M PRN #14 tab PRN Reason: Chest Pain Clopidogrel [Plavix] 75 mg PO DAILY #90 tab Aspirin 81 mg PO DAILY chew Omeprazole [PriLOSEC] 20 mg PO BID #60 ish. Triamcinolone 0.1% Ointment [Kenalog 0.1% Ointment] 1 applic TOPICAL BID Sodium Chloride 5% Ophth Soln [Amanda 128] 1 drops RIGHT EYE MOFR hydrALAZINE HCL [Apresoline] 75 mg PO TID #90 tab Isosorbide Mononitrate ER [Imdur] 30 mg PO DAILY #30 tab.er.24h Sertraline [Zoloft] 150 mg PO DAILY #45 tab Discontinued Dicyclomine [Bentyl] 10 mg PO AC-TID Acetaminophen Tab [Tylenol] 500 mg PO Q4-6H PRN PRN Reason: Pain buPROPion SR [Wellbutrin SR] 100 mg PO DAILY Discharge Medication List Albuterol Inhaler [Ventolin Hfa Inhaler] 1 - 2 puff INHALATION RT-Q6H PRN 03/27/18 [History] Calcium Carbonate 500 mg PO DAILY 03/27/18 [History] Ferrous Sulfate [Iron (65 MG Elemental)] 325 mg PO DAILY 03/27/18 [History] Furosemide [Lasix] 40 mg PO DAILY 03/27/18 [History] Labetalol [Trandate] 100 mg PO Q12H 03/27/18 [History] Potassium Chloride [Klor-Con 8] 8 meq PO DAILY 03/27/18 [History] Gabapentin [Neurontin] 300 mg PO BID 06/04/18 [History] Insulin Glargine [Lantus] 56 unit SQ HS 06/04/18 [History] amLODIPine [Norvasc] 10 mg PO DAILY 06/04/18 [History] levETIRAcetam [Keppra] 500 mg PO Q12HR 06/04/18 [History] prednisoLONE ACETATE [Pred Forte 1%] 1 drop LEFT EYE DAILY 06/04/18 [History] Atorvastatin [Lipitor] 40 mg PO HS #90 tab 06/07/18 [Rx] Clopidogrel [Plavix] 75 mg PO DAILY #90 tab 06/07/18 [Rx] Nitroglycerin Sl Tabs [Nitrostat] 0.4 mg SUBLINGUAL Q5M PRN #14 tab 06/07/18 [Rx] Aspirin 81 mg PO DAILY chew 06/11/18 [Rx] Omeprazole [PriLOSEC] 20 mg PO BID #60 capsule.dr 06/13/18 [Rx] Sodium Chloride 5% Ophth Soln [Amanda 128] 1 drops RIGHT EYE MOFR 06/26/18 [History] Triamcinolone 0.1% Ointment [Kenalog 0.1% Ointment] 1 applic TOPICAL BID 06/26/18 [History] Isosorbide Mononitrate ER [Imdur] 30 mg PO DAILY #30 tab.er.24h 07/03/18 [Rx] hydrALAZINE HCL [Apresoline] 75 mg PO TID #90 tab 07/03/18 [Rx] QUEtiapine [SEROquel] 75 mg PO HS #45 tab 07/18/18 [Rx] Sertraline [Zoloft] 150 mg PO DAILY #45 tab 07/18/18 [Rx] Follow up Appointment(s)/Referral(s): Renard Mackay [Outside] - 07/24/18 5:00 pm (Gabriella Orantes 16:30 paperwork 17:00 appointment time please call to reschedule if unable to make it this was first available and latest on that day. ) Patient Instructions/Handouts: Depression (DC), Bradycardia (DC), Suicide Prevention (DC) Activity/Diet/Wound Care/Special Instructions: Activity and diet as tolerated. No guns or weapons in the home. Take all medications as prescribed and attend all follow up appointments as scheduled. Refrain from alcohol and street drugs not prescribed by your physician. If in need of of medication refills, please go to your primary care physician or to your outpatient psychiatric provider. If in crisis please call .
== END 2018-07-18 12:32 | disposition home or self-care (01) | DRG 885 ==
LOC: 3MHU 20:17
PROVIDERS: ADMIT Psychiatry & Neurology Psychiatry; ATTEND Psychiatry & Neurology Psychiatry
DX: F29 Unspecified psychosis not due to a substance or known physiological condition (principal); I13.0 Hypertensive heart and chronic kidney disease with heart failure and stage 1 through stage 4 chronic kidney disease, or unspecified chronic kidney disease; E66.3 Overweight; E78.5 Hyperlipidemia, unspecified; G40.909 Epilepsy, unspecified, not intractable, without status epilepticus; I25.10 Atherosclerotic heart disease of native coronary artery without angina pectoris; I50.9 Heart failure, unspecified; K21.9 Gastro-esophageal reflux disease without esophagitis; N18.9 Chronic kidney disease, unspecified; Z79.899 Other long term (current) drug therapy; Z86.73 Personal history of transient ischemic attack (TIA), and cerebral infarction without residual deficits; Z99.3 Dependence on wheelchair; Z88.2 Allergy status to sulfonamides; Z91.040 Latex allergy status; Z81.1 Family history of alcohol abuse and dependence; Z62.810 Personal history of physical and sexual abuse in childhood
CPT/HCPCS: 80053; 82947; 85025; 94640

== ENCOUNTER 2018-07-21 11:13 | Inpatient (IN) | payer MEDICARE ==
--- NOTE | 2018-07-21 11:49 | ED ---
General Adult HPI - General Chief complaint: Psychiatric Symptoms Stated complaint: EPS eval Time Seen by Provider: 07/21/18 11:29 Source: patient, family, RN notes reviewed, old records reviewed Mode of arrival: wheelchair Limitations: no limitations - History of Present Illness Initial comments: 72-year-old female presenting for psychiatric evaluation. Patient was recently admitted with hallucinations and acute psychosis. Patient states that her symptoms have returned. She is hearing voices. She is also having the sensation that she is being burned. She has been prescribed Seroquel and Zoloft since time of admission. She has been taking these medications as prescribed. She denies any suicidal or homicidal ideation. Denies any additional physical complaints. - Related Data Home Medications Medication Instructions Recorded Confirmed Albuterol Inhaler [Ventolin Hfa 1 - 2 puff INHALATION RT-Q6H PRN 03/27/18 07/21/18 Inhaler] Calcium Carbonate 500 mg PO DAILY 03/27/18 07/21/18 Ferrous Sulfate [Iron (65 MG 325 mg PO DAILY 03/27/18 07/21/18 Elemental)] Furosemide [Lasix] 40 mg PO DAILY 03/27/18 07/21/18 Labetalol [Trandate] 100 mg PO Q12H 03/27/18 07/21/18 Potassium Chloride [Klor-Con 8] 8 meq PO DAILY 03/27/18 07/21/18 Gabapentin [Neurontin] 300 mg PO BID 06/04/18 07/21/18 Insulin Glargine [Lantus] 56 unit SQ HS 06/04/18 07/21/18 amLODIPine [Norvasc] 10 mg PO DAILY 06/04/18 07/21/18 prednisoLONE ACETATE [Pred Forte 1 drop LEFT EYE DAILY 06/04/18 07/21/18 1%] Sodium Chloride 5% Ophth Soln 1 drops RIGHT EYE MOFR 06/26/18 07/21/18 [Amanda 128] Triamcinolone 0.1% Ointment 1 applic TOPICAL BID 06/26/18 07/21/18 [Kenalog 0.1% Ointment] levETIRAcetam [Keppra] 500 mg PO Q12HR 07/21/18 07/21/18 Previous Rx's Medication Instructions Recorded Atorvastatin [Lipitor] 40 mg PO HS #90 tab 06/07/18 Clopidogrel [Plavix] 75 mg PO DAILY #90 tab 06/07/18 Nitroglycerin Sl Tabs [Nitrostat] 0.4 mg SUBLINGUAL Q5M PRN #14 tab 06/07/18 Aspirin 81 mg PO DAILY chew 06/11/18 Omeprazole [PriLOSEC] 20 mg PO BID #60 capsule.dr 06/13/18 Isosorbide Mononitrate ER [Imdur] 30 mg PO DAILY #30 tab.er.24h 07/03/18 hydrALAZINE HCL [Apresoline] 75 mg PO TID #90 tab 07/03/18 QUEtiapine [SEROquel] 75 mg PO HS #45 tab 07/18/18 Sertraline [Zoloft] 150 mg PO DAILY #45 tab 07/18/18 Allergies Allergy/AdvReac Type Severity Reaction Status Date / Time Latex, Natural Rubber Allergy Itching Verified 07/21/18 12:04 sulfamethoxazole Allergy Rash/Hives Verified 07/21/18 12:04 [From Bactrim] trimethoprim [From Bactrim] Allergy Rash/Hives Verified 07/21/18 12:04 Review of Systems ROS Statement: Those systems with pertinent positive or pertinent negative responses have been documented in the HPI. ROS Other: All systems not noted in ROS Statement are negative. Past Medical History Past Medical History: Atrial Fibrillation, Asthma, Coronary Artery Disease (CAD), Cancer, Heart Failure, CVA/TIA, Diabetes Mellitus, Hypertension, Osteoarthritis (OA), Renal Disease Additional Past Medical History / Comment(s): Paroxysmal Afib, brain mass with intracranial bleed/hematoma with surgery at [facility], seizure after brain surgery, IDDM type II, recent lower GI bleed/gastritis,gastric erosion, SSS with pacer, uterine cancer with surgery, skin cancer removals, colitis, chronic kidney disease, past L arm fracture. History of Any Multi-Drug Resistant Organisms: MRSA Date of last positivie culture/infection: 06/05/18 MDRO Source:: URINE Past Surgical History: Cholecystectomy, Heart Catheterization, Heart Catheterization With Stent, Hysterectomy, Pacemaker Additional Past Surgical History / Comment(s): Evacuation on intracranial hematoma and ressection of hemorrhagic mass, pacemaker 2016, PCI with stent 06/06/18, EGD/colonoscopy, R eye corneal implant/cataract removal, EGD 06/2018, colonoscopy, skin cancer removal. Past Anesthesia/Blood Transfusion Reactions: No Reported Reaction Additional Past Anesthesia/Blood Transfusion Reaction / Comment(s): no previous blood transfusions Date of Last Stent Placement:: 06/06/18 Type of Cardiac Device: Permanent Pacemaker Device Placement Date:: 04/2016 Past Psychological History: Depression Smoking Status: Never smoker - Past Family History Mother Family Medical History: Cancer, COPD, Hypertension Additional Family Medical History / Comment(s): Mother had bone cancer. Father Family Medical History: Cancer, Hypertension Additional Family Medical History / Comment(s): Father had skin cancer. General Exam Limitations: no limitations General appearance: alert, in no apparent distress Head exam: Present: atraumatic, normocephalic Eye exam: Present: normal appearance, PERRL ENT exam: Present: normal exam Neck exam: Present: normal inspection. Absent: tenderness, meningismus Respiratory exam: Present: normal lung sounds bilaterally. Absent: respiratory distress, wheezes Cardiovascular Exam: Present: regular rate, normal rhythm GI/Abdominal exam: Present: soft. Absent: distended, tenderness, guarding Neurological exam: Present: alert, oriented X3, CN II-XII intact. Absent: motor sensory deficit Psychiatric exam: Present: depressed, flat affect. Absent: homicidal ideation, suicidal ideation Skin exam: Present: warm, dry, intact. Absent: cyanosis, diaphoretic Course Vital Signs 07/21/18 07/21/18 11:19 14:50 Temperature 97.9 F 97.7 F Pulse Rate 61 60 Respiratory 16 18 Rate Blood Pressure 161/75 168/71 O2 Sat by Pulse 96 95 Oximetry Medical Decision Making - Medical Decision Making 72-year-old female presenting for psychiatric evaluation. Patient is medically cleared she was evaluated by EPS in the emergency department. She will be admitted for further psychiatric evaluation and treatment. Disposition Clinical Impression: Depression, Psychosis Disposition: ADMITTED IP TO THIS [facility] Condition: Stable Is patient prescribed a controlled substance at d/c from ED?: No Decision to Admit Reason: Admit from EC Decision Date: 07/21/18 Decision Time: 14:53
[2018-07-21] MEDS ORDERED: ALBUTEROL INHALER 60 PUFF/8 GM INHALER INHALATION PRN (14:45)
[2018-07-21] MEDS ORDERED: ACETAMINOPHEN TAB 325 MG TAB PO PRN (14:52)
[2018-07-21] MEDS ORDERED: ZIPRASIDONE 20 MG VIAL IM PRN (14:52)
[2018-07-21] MEDS ORDERED: MAG HYDROX/AL HYDROX/SIMETH 30 ML CUP PO PRN (14:52)
[2018-07-21] MEDS ORDERED: LORazepam 2 MG/ML INJ IM PRN (14:58)
[2018-07-21 16:06] VITALS: BMI 30.8
[2018-07-21] MEDS: SODIUM CHLORIDE 5% OPHTH DROPS 15 ML BTL RIGHT EYE SCH (16:20)
[2018-07-21] MEDS: hydrALAZINE HCL 25 MG TAB PO SCH ×2 (16:25→20:07)
[2018-07-21 17:51] LABS: Glucose,Whole Blood 122 mg/dL (75-99)
[2018-07-21] MEDS: LORazepam 1 MG TAB PO PRN (19:11)
[2018-07-21] MEDS: levETIRAcetam 500 MG TAB PO SCH (20:05)
[2018-07-21] MEDS: GABAPENTIN 300 MG CAP PO SCH (20:06)
[2018-07-21] MEDS: ATORVASTATIN 40 MG TAB PO SCH (20:06)
[2018-07-21] MEDS: TRIAMCINOLONE ACET 0.1% OINTMENT 15 GM TUBE TOPICAL SCH (20:07)
[2018-07-21] MEDS: LABETALOL 100 MG TAB PO SCH (20:07)
[2018-07-21 20:25] LABS: Glucose,Whole Blood 173 mg/dL (75-99)
[2018-07-21] MEDS ORDERED: QUEtiapine 25 MG TAB PO SCH (21:00)
[2018-07-21] MEDS: INSULIN DETEMIR (LEVEMIR) 100 UNIT/ML SYR SQ SCH (21:02)
--- NOTE | 2018-07-22 00:59 | CONS ---
CONSULTATION DATE OF CONSULTATION: 07/21/2018 REASON FOR CONSULTATION: Medical management requested by Dr. Bingham. CONSULTATIONS: This is a 72-year-old patient who was recently discharged 3 days ago from the psychiatry unit [facility] for psychosis unspecified. The patient follows with Dr. Willingham. Chronic stable medical conditions include congestive heart failure from diastolic dysfunction, sick sinus syndrome with pacemaker, diabetes, hypertension, osteoarthritis, depression, coronary artery via stent, history of intestinal bleed following tumor being removed, chronic kidney disease. The patient has been hearing voices. She thinks that people have been burning her or trying to burn her. She lives with the family. Otherwise appetite is fair. Able to get about. Because of these psychotic symptoms, yet again she has been admitted to [facility]. REVIEW OF SYSTEMS: CONSTITUTIONAL: None. HEENT: Decreased hearing. RESPIRATORY: None. CARDIOVASCULAR: None. GASTROINTESTINAL: None. GENITOURINARY: None. MUSCULOSKELETAL: Pain in joints. DERMATOLOGICAL, HEMATOLOGIC, LYMPHATIC: None. PSYCHIATRY: As above. NEUROLOGICAL: Does use a walker. PAST MEDICAL HISTORY: Of congestive heart failure from diastolic dysfunction, sick sinus syndrome with pacemaker, diabetes, hypertension, osteoarthritis, depression, atrial fibrillation, hypertension, coronary artery disease with stent, brain METS with surgery, had intracranial bleed and seizure for a short time after that. Chronic kidney disease, psychosis. PAST SURGICAL HISTORY: Cholecystectomy, cardiac cath with stent, hysterectomy, pacemaker, evacuation of rectal hematoma with resection of hemorrhagic mass, pacemaker in April 2016, angioplasty, stent, right cornea implant with cataract removal, skin cancer removed, pacemaker in 2017. PSYCH HISTORY: History of depression, psychosis. SOCIAL HISTORY: No smoking, no alcohol. Lives with son and [id number]. Uses a walker. FAMILY HISTORY: COPD, hypertension. Mother had bone cancer. HOME MEDICATIONS: 1. Prednisone Forte 1% 1 drop to left eye daily. 2. Keppra 500 mg p.o. q.12. 3. Hydralazine 75 mg t.i.d. 4. Norvasc 10 mg p.o. daily. 5. Kenalog 0.1% ointment topical b.i.d. 6. Amanda 128, 1 drop right eye Saturday, Saturday. 7. Zoloft 150 mg p.o. daily. 8. Seroquel 75 mg q.h.s. 9. Klor-Con 8 mEq p.o. daily. 10.Prilosec 20 mg p.o. b.i.d. 11.Nitrostat 0.4 sublingual q.5 p.r.n. 12.Labetalol 100 mg p.o. q.12. 13.Imdur ER 30 mg p.o. daily. 14.Lantus 56 units subcu q.h.s. 15.Neurontin 300 mg b.i.d. 16.Lasix 40 mg p.o. daily. 17.Iron 325 mg p.o. daily. 18.Plavix 75 mg p.o. daily. 19.Calcium 5 mg p.o. daily. 20.Lipitor 40 mg q.h.s. 21.Aspirin 81 mg p.o. daily. 22.Ventolin HFA 1 or 2 puffs q.6 p.r.n. ALLERGIES: LATEX, BACTRIM. PHYSICAL EXAMINATION: VITAL SIGNS: On examination, temperature 97, pulse 62, respirations 16, blood pressure 132/65, pulse ox 96% on room air. GENERAL APPEARANCE: Well built, BMI 30.8. Sitting up, comfortable. EYES: Pupils equal. Conjunctivae normal. HEENT: External appearance of nose and ears normal. Oral cavity normal. NECK : JVD not raised. Mass not palpable. RESPIRATORY: Effort normal. LUNGS: Decreased breath sounds. CARDIOVASCULAR: 1st and 2nd sounds normal. No edema. ABDOMEN: Soft, nontender. Liver and spleen not palpable. PSYCHIATRY: Awake, answering simple questions. Hearing voices as above. NEUROLOGICAL: Pupils equal. Cranial nerves grossly intact. Power and sensation grossly intact. MUSCULOSKELETAL: Evidence of osteoarthritis in multiple joints. INVESTIGATIONS: Accu-Cheks are noted. ASSESSMENT: 1. 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 2. Chronic congestive heart failure from diastolic dysfunction. Ejection fraction not known. 3. Permanent pacemaker for sick sinus syndrome. 4. Diabetes mellitus type 2, chronically on insulin. 5. Essential hypertension. 6. Primary osteoarthritis. 7. Paroxysmal atrial fibrillation. 8. Coronary artery disease, prior history of stent. 9. Essential hypertension. 10.Chronic kidney stage 3 from nephrosclerosis. 11.History of intracranial bleed following a brain mass and seizures following that. PLAN: Home medications to be continued. Care was discussed with the patient. Keep an eye on the patient's Accu-Cheks. The patient should follow up with Dr. Willingham upon discharge./ Thank you Dr. Bingham. Copy to Dr. Willingham. [id number] / IJN: [id number] /
[2018-07-22 06:27] LABS: Glucose,Whole Blood 73 mg/dL (75-99)
[2018-07-22] MEDS: levETIRAcetam 500 MG TAB PO SCH ×2 (08:01→21:03)
[2018-07-22] MEDS: PANTOPRAZOLE 40 MG TABLET PO SCH (08:01)
[2018-07-22] MEDS: LABETALOL 100 MG TAB PO SCH ×2 (08:01→21:03)
[2018-07-22] MEDS: amLODIPine 10 MG TAB PO SCH (08:01)
[2018-07-22] MEDS: GABAPENTIN 300 MG CAP PO SCH ×2 (08:02→21:03)
[2018-07-22] MEDS: hydrALAZINE HCL 25 MG TAB PO SCH ×3 (08:02→21:03)
[2018-07-22] MEDS: ISOSORBIDE MONONITRATE ER 30 MG TAB.ER.24H PO SCH (08:03)
[2018-07-22] MEDS: FUROSEMIDE 40 MG TAB PO SCH (08:03)
[2018-07-22] MEDS: CALCIUM CARBONATE 500 MG CHEWABLE PO SCH (08:03)
[2018-07-22] MEDS: ASPIRIN 81 MG PO SCH (08:03)
[2018-07-22] MEDS: CLOPIDOGREL 75 MG TAB PO SCH (08:03)
[2018-07-22] MEDS: FERROUS SULFATE 325 MG TAB PO SCH (08:03)
[2018-07-22] MEDS: prednisoLONE ACETATE 1% OPHTH DROPS 5 ML BTL LEFT EYE SCH (08:04)
[2018-07-22] MEDS: TRIAMCINOLONE ACET 0.1% OINTMENT 15 GM TUBE TOPICAL SCH ×3 (08:05→21:04)
[2018-07-22] MEDS: POTASSIUM CHLORIDE 8 MEQ PO SCH (08:26)
[2018-07-22 08:27] LABS: Amphetamine Screen,Urine Not Detected (NotDetected); Barbiturate Screen,Urine Not Detected (NotDetected); Benzodiazepines Screen,Urine Detected (NotDetected); Cocaine Screen,Urine Not Detected (NotDetected); Methadone Screen, Urine Not Detected (NotDetected); Opiate Screen,Urine Not Detected (NotDetected); Oxycodone Screen, Urine Not Detected (NotDetected); Phencyclidine Screen,Urine Not Detected (NotDetected); Tricyclic Antidepressant,Urine Detected (NotDetected); Urn Cannabinoid Scrn Not Detected (NotDetected)
[2018-07-22] MEDS ORDERED: SERTRALINE 100 MG TAB PO SCH (09:00)
[2018-07-22 09:41] LABS: Basophils # (A) 0.1 k/uL (0-0.2); Basophils % (A) 1 %; Eosinophils # (A) 0.3 k/uL (0-0.7); Eosinophils % (A) 2 %; HCT 37.6 % (34.0-46.0); HGB 11.7 gm/dL (11.4-16.0); Hypochromasia Slight; Lymphocytes # (A) 1.5 k/uL (1.0-4.8); Lymphocytes % (A) 15 %; MCH 27.9 pg (25.0-35.0); MCHC 31.2 g/dL (31.0-37.0); MCV 89.4 fL (80.0-100.0); Mean Platelet Volume 7.2; Monocytes # (A) 0.6 k/uL (0-1.0); Monocytes % (A) 6 %; Neutrophils # (A) 8.1 k/uL (1.3-7.7); Neutrophils % (A) 76 %; Platelet Count 222 k/uL (150-450); RBC 4.21 m/uL (3.80-5.40); RDW 13.8 % (11.5-15.5); WBC 10.6 k/uL (3.8-10.6)
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
[2018-07-22 10:06] LABS: Calcium 9.4 mg/dL (8.4-10.2); Potassium 4.2 mmol/L (3.5-5.1); Total Bilirubin 0.5 mg/dL (0.2-1.3); Total Protein 6.3 g/dL (6.3-8.2)
[2018-07-22 15:55] LABS: Hemoglobin A1C 6.3 % (4.0-6.0)
[2018-07-22] MEDS: INSULIN DETEMIR (LEVEMIR) 100 UNIT/ML SYR SQ SCH (20:31)
[2018-07-22] MEDS: ATORVASTATIN 40 MG TAB PO SCH (21:02)
[2018-07-22] MEDS: QUEtiapine 100 MG TAB PO SCH (21:03)
[2018-07-23 06:34] LABS: Glucose,Whole Blood 55 mg/dL (75-99)
[2018-07-23 07:06] LABS: Glucose,Whole Blood 69 mg/dL (75-99)
[2018-07-23 07:14] LABS: Glucose,Whole Blood 83 mg/dL (75-99)
[2018-07-23] MEDS: LABETALOL 100 MG TAB PO SCH ×2 (08:21→21:31)
[2018-07-23] MEDS: CALCIUM CARBONATE 500 MG CHEWABLE PO SCH (08:21)
[2018-07-23] MEDS: ISOSORBIDE MONONITRATE ER 30 MG TAB.ER.24H PO SCH (08:21)
[2018-07-23] MEDS: FUROSEMIDE 40 MG TAB PO SCH (08:21)
[2018-07-23] MEDS: levETIRAcetam 500 MG TAB PO SCH ×2 (08:21→21:31)
[2018-07-23] MEDS: hydrALAZINE HCL 25 MG TAB PO SCH ×3 (08:21→21:31)
[2018-07-23] MEDS: CLOPIDOGREL 75 MG TAB PO SCH (08:21)
[2018-07-23] MEDS: PANTOPRAZOLE 40 MG TABLET PO SCH (08:22)
[2018-07-23] MEDS: FERROUS SULFATE 325 MG TAB PO SCH (08:22)
[2018-07-23] MEDS: amLODIPine 10 MG TAB PO SCH (08:22)
[2018-07-23] MEDS: ASPIRIN 81 MG PO SCH (08:22)
[2018-07-23] MEDS: GABAPENTIN 300 MG CAP PO SCH ×2 (08:22→21:31)
[2018-07-23] MEDS: TRIAMCINOLONE ACET 0.1% OINTMENT 15 GM TUBE TOPICAL SCH ×2 (08:24→21:32)
[2018-07-23] MEDS ORDERED: SERTRALINE 50 MG TAB PO SCH (09:00)
[2018-07-23] MEDS: prednisoLONE ACETATE 1% OPHTH DROPS 5 ML BTL LEFT EYE SCH (09:32)
--- NOTE | 2018-07-23 10:01 | P.PN ---
Progress Note - Text Interval history: The patient is found in the [facility] we spoke in an interview room. The patient states that her mood is better today. She states that she felt "less scared last night". She has been compliant with medications. She has no questions or concerns regarding her psychotropic medication. She is attending groups. She felt as though she slept well last night staff reported she slept 5 or 6 hours. Appetite reportedly stable. Mental status exam: The patient is an overweight female appearing her stated age. She has a history of chronic hearing loss. Eye contact is appropriate speech is fluent and spontaneous nonpressured. She states that she feels safer here in the hospital compared at home. She continues to feel as though she is in danger at home. She reports an auditory hallucination is a continued Alpine's but no verbal content. She is experiencing no command auditory hallucinations. She is concerned she will reexperience that burning sensation across her body but currently is not experiencing that. Insight and judgment limited. She demonstrates mild tremor of her upper extremities. She demonstrates no verbal or physical aggressiveness. Insight and judgment limited. She is oriented to person place day of the week month and year. Plan: The patient will continue her current psychotropic medications. We may consider titrating the Seroquel further. The Zoloft will be tapered off and we will initiate Lexapro 5 mg daily. We will plan to titrate that medication further. In addition to her psychosis it appears she is experiencing depressive and anxiety symptoms that may be addressed by the Lexapro. We will continue monitoring her for safety. She has been attending groups. Physical therapy will be working with the patient. Vital signs reviewed.
[2018-07-23] MEDS: POTASSIUM CHLORIDE 8 MEQ PO SCH (10:13)
[2018-07-23] MEDS ORDERED: NITROGLYCERIN SL TABS 0.4 MG TAB SUBLINGUAL PRN (19:32)
[2018-07-23 20:09] LABS: Glucose,Whole Blood 229 mg/dL (75-99)
[2018-07-23] MEDS: INSULIN DETEMIR (LEVEMIR) 100 UNIT/ML SYR SQ SCH (20:18)
[2018-07-23] MEDS: QUEtiapine 100 MG TAB PO SCH (21:31)
[2018-07-23] MEDS: ATORVASTATIN 40 MG TAB PO SCH (21:31)
[2018-07-24 03:05] LABS: Glucose,Whole Blood 128 mg/dL (75-99)
[2018-07-24 06:33] LABS: Glucose,Whole Blood 58 mg/dL (75-99)
[2018-07-24 06:51] LABS: Glucose,Whole Blood 62 mg/dL (75-99)
[2018-07-24 07:11] LABS: Glucose,Whole Blood 73 mg/dL (75-99)
[2018-07-24] MEDS: CALCIUM CARBONATE 500 MG CHEWABLE PO SCH (09:24)
[2018-07-24] MEDS: LABETALOL 100 MG TAB PO SCH ×2 (09:24→21:37)
[2018-07-24] MEDS: ESCITALOPRAM 5 MG TAB PO SCH (09:24)
[2018-07-24] MEDS: hydrALAZINE HCL 25 MG TAB PO SCH ×3 (09:24→21:37)
[2018-07-24] MEDS: CLOPIDOGREL 75 MG TAB PO SCH (09:24)
[2018-07-24] MEDS: ISOSORBIDE MONONITRATE ER 30 MG TAB.ER.24H PO SCH (09:25)
[2018-07-24] MEDS: ASPIRIN 81 MG PO SCH (09:26)
[2018-07-24] MEDS: PANTOPRAZOLE 40 MG TABLET PO SCH (09:26)
[2018-07-24] MEDS: FERROUS SULFATE 325 MG TAB PO SCH (09:26)
[2018-07-24] MEDS: amLODIPine 10 MG TAB PO SCH (09:26)
[2018-07-24] MEDS: levETIRAcetam 500 MG TAB PO SCH ×2 (09:26→21:37)
[2018-07-24] MEDS: GABAPENTIN 300 MG CAP PO SCH ×2 (09:26→21:37)
[2018-07-24] MEDS: FUROSEMIDE 40 MG TAB PO SCH (09:26)
[2018-07-24] MEDS: SERTRALINE 25 MG TAB PO SCH (09:26)
[2018-07-24] MEDS: TRIAMCINOLONE ACET 0.1% OINTMENT 15 GM TUBE TOPICAL SCH ×2 (09:28→21:38)
[2018-07-24] MEDS: prednisoLONE ACETATE 1% OPHTH DROPS 5 ML BTL LEFT EYE SCH (09:28)
[2018-07-24] MEDS: POTASSIUM CHLORIDE 8 MEQ PO SCH (09:29)
--- NOTE | 2018-07-24 10:13 | P.PN ---
Progress Note - Text Interval history: The patient is found in group we spoke in an interview room. She indicates her mood is better. She continues to have fears that she will experience that burning sensation again in her legs. Continues to report the noise that she has chronically been experiencing. She states her son visited last evening and that seemed to go well. Social work did speak with the patient's [id number] those notes were reviewed. We reviewed the patient's psychotropic medications she has no questions at this time. We discussed ways in which she could increase her socialization outside of the home once discharged. Mental status exam: The patient's overweight female. She stressor own clothing hygiene is adequate. She reports her mood is better and she indicates she feels safe here in the hospital. She is reporting no suicidal ideation intent or plan. She is reporting no homicidal ideation intent or plan. She describes the same chronic auditory hallucination in the form of a noise. No voices are heard no command auditory hallucinations experienced. She reports no visual hallucinations. She still has some safety concerns while at home but does not feel paranoid here. She demonstrates no verbal or physical aggressiveness. She remains mobile with a wheelchair but physical therapy has been working with the patient. Insight and judgment slowly improving. Plan: The patient will continue her medications as written. We are cross tapering her off of Zoloft and onto Lexapro. I plan to titrate the Lexapro dose further. We will continue the Seroquel as written we may titrate that dose further. She is encouraged to continue participating in groups. She will continue treatments with physical therapy. We will continue to explore activity she can participate in once discharged home. Vital signs reviewed.
[2018-07-24 17:42] LABS: Glucose,Whole Blood 119 mg/dL (75-99)
[2018-07-24 20:17] LABS: Glucose,Whole Blood 168 mg/dL (75-99)
[2018-07-24] MEDS: INSULIN DETEMIR (LEVEMIR) 100 UNIT/ML SYR SQ SCH (21:23)
[2018-07-24] MEDS: ATORVASTATIN 40 MG TAB PO SCH (21:37)
[2018-07-24] MEDS: QUEtiapine 100 MG TAB PO SCH (21:37)
[2018-07-25 03:31] LABS: Glucose,Whole Blood 96 mg/dL (75-99)
[2018-07-25 06:31] LABS: Glucose,Whole Blood 55 mg/dL (75-99)
[2018-07-25 07:24] LABS: Glucose,Whole Blood 78 mg/dL (75-99)
[2018-07-25] MEDS: SERTRALINE 25 MG TAB PO SCH (09:04)
[2018-07-25] MEDS: levETIRAcetam 500 MG TAB PO SCH ×2 (09:04→21:10)
[2018-07-25] MEDS: amLODIPine 10 MG TAB PO SCH (09:04)
[2018-07-25] MEDS: ASPIRIN 81 MG PO SCH (09:04)
[2018-07-25] MEDS: ESCITALOPRAM 5 MG TAB PO SCH (09:04)
[2018-07-25] MEDS: hydrALAZINE HCL 25 MG TAB PO SCH ×3 (09:04→21:11)
[2018-07-25] MEDS: CALCIUM CARBONATE 500 MG CHEWABLE PO SCH (09:04)
[2018-07-25] MEDS: LABETALOL 100 MG TAB PO SCH ×2 (09:04→21:10)
[2018-07-25] MEDS: ISOSORBIDE MONONITRATE ER 30 MG TAB.ER.24H PO SCH (09:04)
[2018-07-25] MEDS: FERROUS SULFATE 325 MG TAB PO SCH (09:04)
[2018-07-25] MEDS: FUROSEMIDE 40 MG TAB PO SCH (09:05)
[2018-07-25] MEDS: CLOPIDOGREL 75 MG TAB PO SCH (09:05)
[2018-07-25] MEDS: GABAPENTIN 300 MG CAP PO SCH ×2 (09:05→21:10)
[2018-07-25] MEDS: PANTOPRAZOLE 40 MG TABLET PO SCH (09:05)
[2018-07-25] MEDS: prednisoLONE ACETATE 1% OPHTH DROPS 5 ML BTL LEFT EYE SCH (09:06)
[2018-07-25] MEDS: POTASSIUM CHLORIDE 8 MEQ PO SCH (09:10)
[2018-07-25] MEDS: TRIAMCINOLONE ACET 0.1% OINTMENT 15 GM TUBE TOPICAL SCH ×2 (09:10→21:32)
[2018-07-25 12:30] LABS: Glucose,Whole Blood 155 mg/dL (75-99)
[2018-07-25] MEDS: SODIUM CHLORIDE 5% OPHTH DROPS 15 ML BTL RIGHT EYE SCH (16:38)
[2018-07-25 17:47] LABS: Glucose,Whole Blood 140 mg/dL (75-99)
[2018-07-25 19:59] LABS: Glucose,Whole Blood 227 mg/dL (75-99)
[2018-07-25] MEDS: ATORVASTATIN 40 MG TAB PO SCH (21:10)
[2018-07-25] MEDS: QUEtiapine 100 MG TAB PO SCH (21:10)
[2018-07-25] MEDS: INSULIN DETEMIR (LEVEMIR) 100 UNIT/ML SYR SQ SCH (21:11)
[2018-07-25] MEDS: LORazepam 1 MG TAB PO PRN (21:17)
--- NOTE | 2018-07-25 22:16 | PN ---
PROGRESS NOTE DATE OF SERVICE: 07/25/2018 CHIEF COMPLAINT: The patient had various hallucinatory experiences and paranoid delusions. INTERVAL HISTORY: Patient has been doing fair. She had a quiet evening last night. She attended groups yesterday. She will come out some in the day area. She slept 6-1/2 hours last night. Today she has been up. She will socialize some with others. She tends to have a quiet manner. She has been attending all groups. She will interact some with others. She will make an effort in group. She feels that her mood has been improving. She has a better outlook. She was not reporting any physical sensation in her legs that she had been saying previously. She says that overall she feels that she is progressing. She tolerates her psychotropic medications. MENTAL STATUS: Patient was in bed lying down. She was sitting somewhat with her head up. She gave fairly good eye contact. Psychomotor activity was slowed. Speech was monotone. She answered questions with brief responses. Her thoughts were clear. She did not say a lot, though she was appropriate in her thoughts. Her affect was somewhat blunted, her mood quiet. She had a somewhat worried manner though did not appear to be significantly distressed. There was no outward evidence of thought disorder. Cognition was clear. ASSESSMENT: I will continue the current diagnosis and treatment plan. Will continue to engage the patient in individual and group therapeutic activities. I will continue psychotropic medications the same, including Lexapro 5 mg a day, Zoloft 25 mg a day, Seroquel 100 mg at bedtime. She is also on Keppra 500 mg twice a day and Neurontin 300 mg twice a day. We will focus on stabilization and discharge planning. MMODL / IJN: [id number] /
[2018-07-26 05:17] LABS: Glucose,Whole Blood 93 mg/dL (75-99)
[2018-07-26] MEDS: POTASSIUM CHLORIDE 8 MEQ PO SCH (09:02)
[2018-07-26] MEDS: prednisoLONE ACETATE 1% OPHTH DROPS 5 ML BTL LEFT EYE SCH (09:02)
[2018-07-26] MEDS: hydrALAZINE HCL 25 MG TAB PO SCH ×3 (09:03→21:09)
[2018-07-26] MEDS: CALCIUM CARBONATE 500 MG CHEWABLE PO SCH (09:03)
[2018-07-26] MEDS: GABAPENTIN 300 MG CAP PO SCH ×2 (09:04→21:09)
[2018-07-26] MEDS: levETIRAcetam 500 MG TAB PO SCH ×2 (09:04→21:10)
[2018-07-26] MEDS: PANTOPRAZOLE 40 MG TABLET PO SCH (09:04)
[2018-07-26] MEDS: FERROUS SULFATE 325 MG TAB PO SCH (09:04)
[2018-07-26] MEDS: SERTRALINE 25 MG TAB PO SCH (09:04)
[2018-07-26] MEDS: amLODIPine 10 MG TAB PO SCH (09:04)
[2018-07-26] MEDS: ESCITALOPRAM 5 MG TAB PO SCH (09:04)
[2018-07-26] MEDS: ASPIRIN 81 MG PO SCH (09:04)
[2018-07-26] MEDS: ISOSORBIDE MONONITRATE ER 30 MG TAB.ER.24H PO SCH (09:04)
[2018-07-26] MEDS: FUROSEMIDE 40 MG TAB PO SCH (09:04)
[2018-07-26] MEDS: LABETALOL 100 MG TAB PO SCH ×2 (09:04→21:10)
[2018-07-26] MEDS: CLOPIDOGREL 75 MG TAB PO SCH (09:04)
[2018-07-26] MEDS: TRIAMCINOLONE ACET 0.1% OINTMENT 15 GM TUBE TOPICAL SCH ×3 (09:07→21:54)
[2018-07-26 12:18] LABS: Glucose,Whole Blood 113 mg/dL (75-99)
--- NOTE | 2018-07-26 14:42 | PN ---
PROGRESS NOTE DATE OF SERVICE: 07/26/2018 CHIEF COMPLAINT: The patient had various hallucinatory experiences and paranoid delusions. INTERVAL HISTORY: The patient had a quiet evening last night. She reports that she slept fairly well. Today she has been up. She has been out in the day area some. She does not interact too much with others. She does attend groups. Typical notes from her groups include the following: "Flat, attentive. Interacts minimal. Patient did not share when prompted." When I talked to the patient today, she did not have any specific complaints. She felt her mood was improving. She had a better outlook. Noted she did take a p.r.n. Ativan 1 mg last evening. She was vague about why she took the p.r.n. She tolerates her psychotropic medications. MENTAL STATUS: Patient gave fairly good eye contact. Psychomotor activity was slowed. Speech was monotone. She answered questions with brief responses. Her thoughts were clear, her affect blunted, her mood quiet. She did not appear to be significantly distressed. ASSESSMENT: I will continue the current diagnosis and treatment plan. I will continue psychotropic medications the same. The patient appears to be making progress. We will focus on stabilization and discharge planning. MMODL / IJN: [id number] /
[2018-07-26 17:51] LABS: Glucose,Whole Blood 140 mg/dL (75-99)
[2018-07-26 20:07] LABS: Glucose,Whole Blood 226 mg/dL (75-99)
[2018-07-26] MEDS: INSULIN DETEMIR (LEVEMIR) 100 UNIT/ML SYR SQ SCH (21:08)
[2018-07-26] MEDS: QUEtiapine 100 MG TAB PO SCH (21:09)
[2018-07-26] MEDS: ATORVASTATIN 40 MG TAB PO SCH (21:10)
[2018-07-27 05:52] LABS: Glucose,Whole Blood 64 mg/dL (75-99)
[2018-07-27 06:38] LABS: Glucose,Whole Blood 91 mg/dL (75-99)
[2018-07-27] MEDS: ASPIRIN 81 MG PO SCH (08:46)
[2018-07-27] MEDS: PANTOPRAZOLE 40 MG TABLET PO SCH (08:46)
[2018-07-27] MEDS: amLODIPine 10 MG TAB PO SCH (08:46)
[2018-07-27] MEDS: FERROUS SULFATE 325 MG TAB PO SCH (08:48)
[2018-07-27] MEDS: SERTRALINE 25 MG TAB PO SCH (08:49)
[2018-07-27] MEDS: levETIRAcetam 500 MG TAB PO SCH ×2 (08:49→21:04)
[2018-07-27] MEDS: GABAPENTIN 300 MG CAP PO SCH ×2 (08:49→21:04)
[2018-07-27] MEDS: ESCITALOPRAM 5 MG TAB PO SCH (10:54)
[2018-07-27] MEDS: ISOSORBIDE MONONITRATE ER 30 MG TAB.ER.24H PO SCH (10:54)
[2018-07-27] MEDS: hydrALAZINE HCL 25 MG TAB PO SCH ×3 (10:54→21:31)
[2018-07-27] MEDS: FUROSEMIDE 40 MG TAB PO SCH (10:54)
[2018-07-27] MEDS: LABETALOL 100 MG TAB PO SCH ×2 (10:54→21:31)
[2018-07-27] MEDS: CALCIUM CARBONATE 500 MG CHEWABLE PO SCH (10:54)
[2018-07-27] MEDS: CLOPIDOGREL 75 MG TAB PO SCH (10:54)
[2018-07-27] MEDS: POTASSIUM CHLORIDE 8 MEQ PO SCH (12:27)
[2018-07-27] MEDS: prednisoLONE ACETATE 1% OPHTH DROPS 5 ML BTL LEFT EYE SCH (12:29)
[2018-07-27] MEDS: TRIAMCINOLONE ACET 0.1% OINTMENT 15 GM TUBE TOPICAL SCH ×2 (12:30→21:05)
[2018-07-27] MEDS: MAGNESIUM HYDROXIDE 2,400 MG/10 ML CUP PO PRN ×2 (12:52→21:42)
[2018-07-27 12:54] LABS: Glucose,Whole Blood 96 mg/dL (75-99)
[2018-07-27 17:21] LABS: Glucose,Whole Blood 121 mg/dL (75-99)
[2018-07-27 20:08] LABS: Glucose,Whole Blood 230 mg/dL (75-99)
[2018-07-27] MEDS: QUEtiapine 100 MG TAB PO SCH (21:04)
[2018-07-27] MEDS: ATORVASTATIN 40 MG TAB PO SCH (21:06)
--- NOTE | 2018-07-27 21:37 | PN ---
PROGRESS NOTE DATE OF SERVICE: 07/27/2018. CHIEF COMPLAINT: The patient had various hallucinatory experiences and paranoid delusions. INTERVAL HISTORY: The patient has been doing fairly well. She had a quiet evening last night. She slept fairly well. She has been up. She comes out in the day area. She will interact some with others. She tends to have a quiet manner. She attends groups, though generally she is somewhat withdrawn and quiet in groups. Her thinking is clear. She has not been voicing any thoughts about any of the hallucinatory experiences she had been having. She has shown some improvement in her mood. She has been cooperative with care. She will interact a little with others, though she does not initiate much for conversation. She did not voice any complaints or concerns today when I talked with her. She does say she feels her mood is better. She tolerates her psychotropic medications. MENTAL STATUS: Patient gave fair eye contact. Psychomotor activity was slowed. Speech was monotone. She answered questions with brief responses. She did not say a lot. Her affect was a little blunted. Her mood was quiet. She smiled some. She did appear to be distressed. There was no indication of thought disorder. Cognition was clear. ASSESSMENT: I will continue the current diagnosis and treatment plan. I will increase the Lexapro to 10 mg a day and discontinue Zoloft as per Dr. Bingham's treatment plan. I reviewed medication issues with the patient including indications, potential side effects and dosing strategies. We will continue to focus on stabilization and discharge planning. MMODL / MOLLYN: [id number] /
[2018-07-27] MEDS: INSULIN DETEMIR (LEVEMIR) 100 UNIT/ML SYR SQ SCH (21:42)
[2018-07-28 05:37] LABS: Glucose,Whole Blood 142 mg/dL (75-99)
[2018-07-28] MEDS: PANTOPRAZOLE 40 MG TABLET PO SCH (08:35)
[2018-07-28] MEDS: levETIRAcetam 500 MG TAB PO SCH ×2 (09:08→20:13)
[2018-07-28] MEDS: hydrALAZINE HCL 25 MG TAB PO SCH ×3 (09:08→20:13)
[2018-07-28] MEDS: GABAPENTIN 300 MG CAP PO SCH ×2 (09:08→20:13)
[2018-07-28] MEDS: ESCITALOPRAM 10 MG TAB PO SCH (09:08)
[2018-07-28] MEDS: amLODIPine 10 MG TAB PO SCH (09:08)
[2018-07-28] MEDS: ISOSORBIDE MONONITRATE ER 30 MG TAB.ER.24H PO SCH (09:08)
[2018-07-28] MEDS: CLOPIDOGREL 75 MG TAB PO SCH (09:09)
[2018-07-28] MEDS: LABETALOL 100 MG TAB PO SCH ×2 (09:09→20:13)
[2018-07-28] MEDS: FERROUS SULFATE 325 MG TAB PO SCH (09:09)
[2018-07-28] MEDS: FUROSEMIDE 40 MG TAB PO SCH (09:09)
[2018-07-28] MEDS: ASPIRIN 81 MG PO SCH (09:09)
[2018-07-28] MEDS: POTASSIUM CHLORIDE 8 MEQ PO SCH (09:14)
[2018-07-28] MEDS: prednisoLONE ACETATE 1% OPHTH DROPS 5 ML BTL LEFT EYE SCH (09:17)
[2018-07-28] MEDS: TRIAMCINOLONE ACET 0.1% OINTMENT 15 GM TUBE TOPICAL SCH ×2 (09:18→20:14)
[2018-07-28] MEDS: CALCIUM CARBONATE 500 MG CHEWABLE PO SCH (09:20)
--- NOTE | 2018-07-28 10:53 | PN ---
PROGRESS NOTE DATE OF SERVICE: 07/28/2018. CHIEF COMPLAINT: The patient had various hallucinatory experiences and paranoid delusions. INTERVAL HISTORY: The patient has been doing fairly well overall. She had a quiet evening last night. She missed 2 groups in the day, but did attend the later group. She tends to be quiet in groups, though she does seem to pay attention. I had a meeting with the patient, her son and [id number] later in the day yesterday. They note that she has been doing better and seems to be making good progress in regards to her mood and thoughts. The patient has not been reporting any hallucinatory experiences. She sleeps well at night. Today, she has been up. She comes out in the day area. I encouraged her to make group activities today. She tolerates her psychotropic medications. MENTAL STATUS: Patient was a little more quiet today than she has been in the last 2 days. She gave good eye contact. She did not say a lot. She had a calm manner. Her affect was somewhat constricted. Her mood was quiet though not clearly down or depressed. She did not appear to be distressed. It is noteworthy that last evening when I saw her with her family she was smiling and quite bright in her mood. ASSESSMENT: I will continue the current diagnosis and treatment plan. The patient has not used p.r.n. medications since Saturday. I will discontinue her p.r.n. Ativan and Geodon. Lexapro has been increased to 10 mg a day. She continues on Seroquel 100 mg at bedtime. She is making good progress. I anticipate the patient being discharged fairly soon. She will be supported by son and [id number] who live with her. We will focus on stabilization and discharge planning. MMODL / IJN: [id number] /
[2018-07-28 12:18] LABS: Glucose,Whole Blood 104 mg/dL (75-99)
[2018-07-28] MEDS: SODIUM CHLORIDE 5% OPHTH DROPS 15 ML BTL RIGHT EYE SCH (15:12)
[2018-07-28 17:26] LABS: Glucose,Whole Blood 137 mg/dL (75-99)
[2018-07-28 19:47] LABS: Glucose,Whole Blood 201 mg/dL (75-99)
[2018-07-28] MEDS: INSULIN DETEMIR (LEVEMIR) 100 UNIT/ML SYR SQ SCH (20:12)
[2018-07-28] MEDS: ATORVASTATIN 40 MG TAB PO SCH (20:13)
[2018-07-28] MEDS: QUEtiapine 100 MG TAB PO SCH (20:13)
[2018-07-29 06:21] LABS: Glucose,Whole Blood 65 mg/dL (75-99)
[2018-07-29 06:30] LABS: Glucose,Whole Blood 85 mg/dL (75-99)
[2018-07-29] MEDS: levETIRAcetam 500 MG TAB PO SCH ×2 (09:02→20:48)
[2018-07-29] MEDS: ESCITALOPRAM 10 MG TAB PO SCH (09:02)
[2018-07-29] MEDS: GABAPENTIN 300 MG CAP PO SCH ×2 (09:02→20:48)
[2018-07-29] MEDS: PANTOPRAZOLE 40 MG TABLET PO SCH (09:02)
[2018-07-29] MEDS: FERROUS SULFATE 325 MG TAB PO SCH (09:02)
[2018-07-29] MEDS: ASPIRIN 81 MG PO SCH (09:02)
[2018-07-29] MEDS: amLODIPine 10 MG TAB PO SCH (09:03)
[2018-07-29] MEDS: hydrALAZINE HCL 25 MG TAB PO SCH ×3 (09:03→20:47)
[2018-07-29] MEDS: LABETALOL 100 MG TAB PO SCH ×2 (09:03→20:48)
[2018-07-29] MEDS: CLOPIDOGREL 75 MG TAB PO SCH (09:04)
[2018-07-29] MEDS: FUROSEMIDE 40 MG TAB PO SCH (09:04)
[2018-07-29] MEDS: prednisoLONE ACETATE 1% OPHTH DROPS 5 ML BTL LEFT EYE SCH (09:04)
[2018-07-29] MEDS: ISOSORBIDE MONONITRATE ER 30 MG TAB.ER.24H PO SCH (09:04)
[2018-07-29] MEDS: CALCIUM CARBONATE 500 MG CHEWABLE PO SCH (09:04)
[2018-07-29] MEDS: POTASSIUM CHLORIDE 8 MEQ PO SCH (10:41)
[2018-07-29] MEDS: TRIAMCINOLONE ACET 0.1% OINTMENT 15 GM TUBE TOPICAL SCH ×2 (11:59→20:48)
[2018-07-29 12:40] LABS: Glucose,Whole Blood 101 mg/dL (75-99)
--- NOTE | 2018-07-29 14:23 | P.PN ---
Progress Note - Text Progress Note Date: 07/29/18 Interval history: Chart reviewed and discussed in team meeting with possible discharge Saturday. This 72-year-old female was seen in her wheelchair and was appropriate in responses. She is pleasant in nature and denies any auditory or visual hallucinations, denies suicidal homicidal ideation and is participating in groups. She is compliant with her medications. Mental status examination this 72-year-old female is seen as oriented person place and time as well as situation. She has appropriate affect and cooperative behavior mood is less depressed less anxious affect is flat but reactive. She is oriented person place and time and situation. Thought content is within normal. Risk factors she denies suicidal or homicidal ideation. Perceptions within normal denies any auditory or visual tactile hallucinations. Thought process is goal oriented. Attention and concentration are normal. Remote and recent memory are within normal. Intelligence is average. Judgment and insight is fair. Plan is continue current medications and observe for any further titration of medications that are needed. She continues to be on 15 minute checks for safety while on the [address] [place] [address]. Discharge planning is in progress as discussed in team this morning with possible discharge Saturday.
[2018-07-29 17:41] LABS: Glucose,Whole Blood 126 mg/dL (75-99)
[2018-07-29 19:56] LABS: Glucose,Whole Blood 175 mg/dL (75-99)
[2018-07-29] MEDS: INSULIN DETEMIR (LEVEMIR) 100 UNIT/ML SYR SQ SCH (20:46)
[2018-07-29] MEDS: ATORVASTATIN 40 MG TAB PO SCH (20:48)
[2018-07-29] MEDS: QUEtiapine 100 MG TAB PO SCH (20:48)
[2018-07-30 06:20] VITALS: RESP 18; TEMP 97.8
[2018-07-30 06:25] LABS: Glucose,Whole Blood 74 mg/dL (75-99)
[2018-07-30] MEDS: levETIRAcetam 500 MG TAB PO SCH (08:41)
[2018-07-30] MEDS: FUROSEMIDE 40 MG TAB PO SCH (08:41)
[2018-07-30] MEDS: CALCIUM CARBONATE 500 MG CHEWABLE PO SCH (08:41)
[2018-07-30] MEDS: PANTOPRAZOLE 40 MG TABLET PO SCH (08:41)
[2018-07-30] MEDS: ESCITALOPRAM 10 MG TAB PO SCH (08:41)
[2018-07-30] MEDS: GABAPENTIN 300 MG CAP PO SCH (08:41)
[2018-07-30] MEDS: CLOPIDOGREL 75 MG TAB PO SCH (08:41)
[2018-07-30] MEDS: FERROUS SULFATE 325 MG TAB PO SCH (08:41)
[2018-07-30] MEDS: ASPIRIN 81 MG PO SCH (08:41)
[2018-07-30] MEDS: ISOSORBIDE MONONITRATE ER 30 MG TAB.ER.24H PO SCH (08:41)
[2018-07-30] MEDS: amLODIPine 10 MG TAB PO SCH (08:42)
[2018-07-30] MEDS: POTASSIUM CHLORIDE 8 MEQ PO SCH (08:42)
[2018-07-30] MEDS: hydrALAZINE HCL 25 MG TAB PO SCH ×2 (08:42→16:40)
[2018-07-30] MEDS: LABETALOL 100 MG TAB PO SCH (08:42)
[2018-07-30] MEDS: TRIAMCINOLONE ACET 0.1% OINTMENT 15 GM TUBE TOPICAL SCH (08:42)
[2018-07-30] MEDS: prednisoLONE ACETATE 1% OPHTH DROPS 5 ML BTL LEFT EYE SCH (08:43)
[2018-07-30 09:02] VITALS: BP 144/65; PULSE 60
--- NOTE | 2018-07-30 11:03 | P.DS ---
Providers Date of admission: 07/21/18 14:41 Expected date of discharge: 07/30/18 Attending physician: Bulmaro Bingham Consults: 07/21/18 14:52 Consult Physician Routine Consulting Provider: Jhonathan Hatfield Consult Reason/Comments: H&P and medical Do you want consulting provider notified?: Yes Primary care physician: Lisa Willingham - Discharge Diagnosis(es) (1) Major depressive disorder Current Visit: Yes Status: Acute Priority: Medium (2) Psychosis Current Visit: Yes Status: Acute Priority: High Hospital Course: Brief summary of admission note: This patient is a 72-year-old female who was admitted to the mental health unit with ongoing complaint of psychosis. She was just recently admitted to this mental health unit. She described auditory, olfactory, tactile hallucinations. She described thoughts of people being under her bed at home. She had thoughts that her son would try to harm her. For full details please refer to my psychiatric evaluation dated 07/22/2018. Summary of hospital course: The patient was admitted to the mental health unit voluntarily. We reviewed her presenting symptoms and treatment options. We decided to continue the Seroquel and titrate the dose further. During the hospitalization we cross tapered her off of Zoloft onto Lexapro. The patient did much better with this hospitalization in terms of group participation. We did have physical therapy see her while admitted to work on ambulation. Her family was involved in treatment and discharge planning. Her family has indicated that the patient is much improved. The patient was seen by internal medicine for routine history and physical exam. She reports significant improvement of symptoms. She has tolerated the medication changes well. Mental status exam: The patient is an overweight female appearing her stated age. She has adequate hygiene and fair grooming. She is dressed in hospital gowns. She is mobile with a wheelchair primarily. Eye contact is appropriate. She has chronic hearing loss. She indicates her mood is better. She is reporting no suicidal or homicidal ideation intent or plan. She is reporting no voices in terms of auditory hallucinations. She does continue to hear and ongoing noise. She describes no tactile or olfactory hallucinations at this time. She reports feeling safe and no longer has concerns that others are after her. She reports no thoughts of her son is trying to harm her. She demonstrates no verbal or physical aggressiveness she demonstrates no involuntary repetitive movements. Insight and judgment improved. Impressions 1. Major depressive disorder recurrent with psychosis Plan: The patient will be discharged mental health unit today to return home residing with her family. She will continue on Lexapro 10 mg daily for depressive symptoms and Seroquel 100 mg at bedtime for psychosis and mood symptoms. Social work will arrange for outpatient follow-up. The patient will continue following up with her primary care physician as needed. At this time there is no imminent safety risk she is appropriate for transition back to outpatient care. She is instructed to return to the hospitals any acute safety concerns. Patient Condition at Discharge: Stable Plan - Discharge Summary Discharge Rx Participant: No New Discharge Prescriptions: New Escitalopram [Lexapro] 10 mg PO DAILY #30 tab Nitroglycerin Sl Tabs [Nitrostat] 0.4 mg SUBLINGUAL Q5M PRN tab PRN Reason: Chest Pain QUEtiapine [SEROquel] 100 mg PO HS #30 tab Continue Potassium Chloride [Klor-Con 8] 8 meq PO DAILY Labetalol [Trandate] 100 mg PO Q12H Furosemide [Lasix] 40 mg PO DAILY Calcium Carbonate 500 mg PO DAILY Ferrous Sulfate [Iron (65 MG Elemental)] 325 mg PO DAILY Albuterol Inhaler [Ventolin Hfa Inhaler] 1 - 2 puff INHALATION RT-Q6H PRN PRN Reason: Shortness Of Breath amLODIPine [Norvasc] 10 mg PO DAILY Gabapentin [Neurontin] 300 mg PO BID Insulin Glargine [Lantus] 56 unit SQ HS prednisoLONE ACETATE [Pred Forte 1%] 1 drop LEFT EYE DAILY Atorvastatin [Lipitor] 40 mg PO HS #90 tab Clopidogrel [Plavix] 75 mg PO DAILY #90 tab Aspirin 81 mg PO DAILY chew Omeprazole [PriLOSEC] 20 mg PO BID #60 capsule. Triamcinolone 0.1% Ointment [Kenalog 0.1% Ointment] 1 applic TOPICAL BID Sodium Chloride 5% Ophth Soln [Amanda 128] 1 drops RIGHT EYE MOFR hydrALAZINE HCL [Apresoline] 75 mg PO TID #90 tab Isosorbide Mononitrate ER [Imdur] 30 mg PO DAILY #30 tab.er.24h levETIRAcetam [Keppra] 500 mg PO Q12HR Discontinued Nitroglycerin Sl Tabs [Nitrostat] 0.4 mg SUBLINGUAL Q5M PRN #14 tab PRN Reason: Chest Pain QUEtiapine [SEROquel] 75 mg PO HS #45 tab Sertraline [Zoloft] 150 mg PO DAILY #45 tab Discharge Medication List Albuterol Inhaler [Ventolin Hfa Inhaler] 1 - 2 puff INHALATION RT-Q6H PRN 03/27/18 [History] Calcium Carbonate 500 mg PO DAILY 03/27/18 [History] Ferrous Sulfate [Iron (65 MG Elemental)] 325 mg PO DAILY 03/27/18 [History] Furosemide [Lasix] 40 mg PO DAILY 03/27/18 [History] Labetalol [Trandate] 100 mg PO Q12H 03/27/18 [History] Potassium Chloride [Klor-Con 8] 8 meq PO DAILY 03/27/18 [History] Gabapentin [Neurontin] 300 mg PO BID 06/04/18 [History] Insulin Glargine [Lantus] 56 unit SQ HS 06/04/18 [History] amLODIPine [Norvasc] 10 mg PO DAILY 06/04/18 [History] prednisoLONE ACETATE [Pred Forte 1%] 1 drop LEFT EYE DAILY 06/04/18 [History] Atorvastatin [Lipitor] 40 mg PO HS #90 tab 06/07/18 [Rx] Clopidogrel [Plavix] 75 mg PO DAILY #90 tab 06/07/18 [Rx] Aspirin 81 mg PO DAILY chew 06/11/18 [Rx] Omeprazole [PriLOSEC] 20 mg PO BID #60 capsule. 06/13/18 [Rx] Sodium Chloride 5% Ophth Soln [Amanda 128] 1 drops RIGHT EYE MOFR 06/26/18 [History] Triamcinolone 0.1% Ointment [Kenalog 0.1% Ointment] 1 applic TOPICAL BID 06/26/18 [History] Isosorbide Mononitrate ER [Imdur] 30 mg PO DAILY #30 tab.er.24h 07/03/18 [Rx] hydrALAZINE HCL [Apresoline] 75 mg PO TID #90 tab 07/03/18 [Rx] levETIRAcetam [Keppra] 500 mg PO Q12HR 07/21/18 [History] Escitalopram [Lexapro] 10 mg PO DAILY #30 tab 07/30/18 [Rx] Nitroglycerin Sl Tabs [Nitrostat] 0.4 mg SUBLINGUAL Q5M PRN tab 07/30/18 [Rx] QUEtiapine [SEROquel] 100 mg PO HS #30 tab 07/30/18 [Rx] Follow up Appointment(s)/Referral(s): Lisa Willingham MD [Primary Care Provider] - 1-2 days Patient Instructions/Handouts: Depression (DC), Psychotic Disorder (DC) Activity/Diet/Wound Care/Special Instructions: Activity and diet as tolerated. No guns or weapons in the home. Take all medications as prescribed and attend all follow up appointments as scheduled. Refrain from alcohol and street drugs not prescribed by your physician. If in need of of medication refills, please go to your primary care physician or to your outpatient psychiatric provider. If in crisis please call , or go to the nearest .
[2018-07-30 12:52] LABS: Glucose,Whole Blood 89 mg/dL (75-99)
[2018-07-30] MEDS: SODIUM CHLORIDE 5% OPHTH DROPS 15 ML BTL RIGHT EYE SCH (16:17)
[2018-07-30 17:38] LABS: Glucose,Whole Blood 110 mg/dL (75-99)
[2018-07-30] MEDS: QUEtiapine 100 MG TAB PO SCH (17:46)
== END 2018-07-30 17:49 | disposition home or self-care (01) | DRG 885 ==
LOC: EC 11:13 → 3MHU 14:41
PROVIDERS: ADMIT Psychiatry & Neurology Psychiatry; ATTEND Psychiatry & Neurology Psychiatry
DX: F33.3 Major depressive disorder, recurrent, severe with psychotic symptoms (principal); I13.0 Hypertensive heart and chronic kidney disease with heart failure and stage 1 through stage 4 chronic kidney disease, or unspecified chronic kidney disease; I50.32 Chronic diastolic (congestive) heart failure; I25.10 Atherosclerotic heart disease of native coronary artery without angina pectoris; E78.5 Hyperlipidemia, unspecified; E66.3 Overweight; H91.90 Unspecified hearing loss, unspecified ear; E11.22 Type 2 diabetes mellitus with diabetic chronic kidney disease; R56.9 Unspecified convulsions; N18.3 Chronic kidney disease, stage 3 (moderate); M19.90 Unspecified osteoarthritis, unspecified site; I48.0 Paroxysmal atrial fibrillation; Z85.828 Personal history of other malignant neoplasm of skin; Z85.42 Personal history of malignant neoplasm of other parts of uterus; Z79.4 Long term (current) use of insulin; Z79.02 Long term (current) use of antithrombotics/antiplatelets; Z91.040 Latex allergy status; Z88.2 Allergy status to sulfonamides; Z91.09 Other allergy status, other than to drugs and biological substances; Z86.14 Personal history of Methicillin resistant Staphylococcus aureus infection; Z86.73 Personal history of transient ischemic attack (TIA), and cerebral infarction without residual deficits; Z79.82 Long term (current) use of aspirin; Z79.899 Other long term (current) drug therapy; Z80.8 Family history of malignant neoplasm of other organs or systems; Z82.49 Family history of ischemic heart disease and other diseases of the circulatory system; Z82.5 Family history of asthma and other chronic lower respiratory diseases; Z87.11 Personal history of peptic ulcer disease; Z90.710 Acquired absence of both cervix and uterus; Z95.5 Presence of coronary angioplasty implant and graft; Z90.49 Acquired absence of other specified parts of digestive tract; Z90.89 Acquired absence of other organs; Z98.42 Cataract extraction status, left eye; Z98.41 Cataract extraction status, right eye; Z98.890 Other specified postprocedural states; Z85.841 Personal history of malignant neoplasm of brain; Z68.31 Body mass index [BMI] 31.0-31.9, adult
CPT/HCPCS: 80053; 80061; 80306; 82075; 83036; 84443; 85025; 94640; 99285

== ENCOUNTER 2018-09-01 14:13 | Emergency (ER) | payer MEDICARE ==
[2018-09-01 14:41] VITALS: PULSE 60; TEMP 98.2
[2018-09-01] MEDS ORDERED: SODIUM CHLORIDE 0.9% 500 ML IV STA (16:22)
--- NOTE | 2018-09-01 16:24 | ED ---
General Adult HPI - General Chief complaint: Weakness Stated complaint: weakness/head pressure Time Seen by Provider: 09/01/18 16:07 Source: family Mode of arrival: wheelchair Limitations: no limitations - History of Present Illness Initial comments: Dictation was produced using [employer] dictation software. please excuse any grammatical, word or spelling errors. Chief Complaint: 73-year-old female with multiple comorbidities presents with generalized weakness, multiple episodes of altered mental status and dark stools. History of Present Illness: 73-year-old female she was brought in by her daughter. Patient has multiple comorbidities including atrial fibrillation asthma coronary artery disease heart failure diabetes. She was brought in by daughter who was concerned because patient had multiple episodes of consci ousness unresponsiveness. Daughter also endorses that she is concerned about her well-being and possible anemia. In terms of her altered mental status. She is had 2-3 episodes of staring off into space. Patient has history of brain cancer status post resection done at [facility]. Today she had an episode prompting coming to the emergency department. Daughter wants her to be evaluated medically. She is especially concerned because she has a history of brain mass and intracranial bleed. She reports that her symptoms of when she was diagnosed with a bleed are similar to today's presentation. Patient denies any neurologic deficits at this time. She does report headache since arriving to the emergency department 2 hours ago. Patient also complains of some mild chest discomfort that lasted for several minutes earlier today. Patient was evaluated by home nurse and physical therapy and she was found to be weak more than usual. Patient denies any pain complaints except for mild headache that she has on a regular basis at the vertex of her head. Denies any changes in vision. She has chronic vision loss in her left eye. The ROS documented in this emergency department record has been reviewed and confirmed by me. Those systems with pertinent positive or negative responses have been documented in the HPI. All other systems are other negative and/or noncontributory. PHYSICAL EXAM: General Impression: Alert and oriented x3, not in acute distress, tremulous HEENT: Normocephalic atraumatic, extra-ocular movements intact, pupils equal and reactive to light bilaterally, dry mucous membranes Cardiovascular: Heart regular rate and rhythm, S1&S2 audible, no murmurs, rubs or gallops Chest: Mild wheezing bilaterally Abdomen: Bowel sounds present, abdomen soft, non-tender, non-distended, no organomegaly Musculoskeletal: Pulses present and equal in all extremities, no peripheral edema Motor: no focal deficits noted Neurological: CN II-XII grossly intact, no focal motor or sensory deficits noted Skin: Intact with no visualized rashes ED course: 63-year-old female presents with multiple complaints. She presents today with several second long episodes of consciousness unresponsiveness. She has multiple comorbidities including cardiac disease, intracranial mass. She is on multiple medications including antiseizure medications, diuretics steroids, beta blockers vital signs upon arrival shows hypertension of 179/61. She does have history of blood pressure medications. According to daughter patient been compliant with her medications. Laboratory evaluation obtained. CBC unremarkable. Coag panel unremarkable. Metabolic panel is negative. Patient does have slight elevated BUN/creatinine ratio. She is however tolerant. Bedside. Rest of labs are unremarkable. Urinalysis is unremarkable. Occult blood stool is negative. Computed tomogra phy scan of the brain does not show any acute findings. This x-ray was nonacute. Patient reevaluated at bedside after fluid administration. She states she feels well and at baseline. There is slight concern that patient's symptoms are secondary to mild dehydration. Patient told to eat a well-balanced diet and maintain good hydration. Patient's mental status episodes could be related to chronic encephalomalacia malacia. Patient agreeable for discharge. She is told to follow up with neurologist and PCP upon discharge. Return parameters discussed. EKG interpretation: Ventricular rate 61, atrial pacemaker, SC interval 194, QS 90, QTC 463. No SC prolongation, no QTC prolongation, no ST or T-wave changes noted. EKG compared to 07/09/2018 showing no changes. Overall, this EKG is unremarkable - Related Data Home Medications Medication Instructions Recorded Confirmed Albuterol Inhaler [Ventolin Hfa 1 - 2 puff INHALATION RT-Q6H PRN 03/27/18 09/01/18 Inhaler] Calcium Carbonate 500 mg PO DAILY 03/27/18 09/01/18 Ferrous Sulfate [Iron (65 MG 325 mg PO DAILY 03/27/18 09/01/18 Elemental)] Furosemide [Lasix] 40 mg PO DAILY 03/27/18 09/01/18 Labetalol [Trandate] 100 mg PO Q12H 03/27/18 09/01/18 Potassium Chloride [Klor-Con 8] 8 meq PO DAILY 03/27/18 09/01/18 prednisoLONE ACETATE [Pred Forte 1 drop LEFT EYE DAILY 06/04/18 09/01/18 1%] Triamcinolone 0.1% Ointment 1 applic TOPICAL BID 06/26/18 09/01/18 [Kenalog 0.1% Ointment] levETIRAcetam [Keppra] 500 mg PO Q12HR 07/21/18 09/01/18 Acetaminophen [Tylenol Extra 500 mg PO Q8HR 09/01/18 09/01/18 Strength] Cyanocobalamin (Vitamin B-12) 1,000 mcg PO DAILY 09/01/18 09/01/18 [Vitamin B-12] Gabapentin [Neurontin] 300 mg PO BID 09/01/18 09/01/18 Insulin Glargine [Lantus] 30 unit SQ HS 09/01/18 09/01/18 Sodium Chloride 5% Ophth Soln 1 drop BOTH EYES MOFR 09/01/18 09/01/18 [Amanda 128] hydrALAZINE HCL [Apresoline] 50 mg PO TID 09/01/18 09/01/18 Previous Rx's Medication Instructions Recorded Atorvastatin [Lipitor] 40 mg PO HS #90 tab 06/07/18 Clopidogrel [Plavix] 75 mg PO DAILY #90 tab 06/07/18 Aspirin 81 mg PO DAILY chew 06/11/18 Omeprazole [PriLOSEC] 20 mg PO BID #60 capsule.dr 06/13/18 Isosorbide Mononitrate ER [Imdur] 30 mg PO DAILY #30 tab.er.24h 07/03/18 Escitalopram [Lexapro] 10 mg PO DAILY #30 tab 07/30/18 Nitroglycerin Sl Tabs [Nitrostat] 0.4 mg SUBLINGUAL Q5M PRN tab 07/30/18 QUEtiapine [SEROquel] 100 mg PO HS #30 tab 07/30/18 Allergies Allergy/AdvReac Type Severity Reaction Status Date / Time Latex, Natural Rubber Allergy Itching Verified 09/01/18 15:46 sulfamethoxazole Allergy Rash/Hives Verified 09/01/18 15:46 [From Bactrim] trimethoprim [From Bactrim] Allergy Rash/Hives Verified 09/01/18 15:46 Review of Systems ROS Statement: Those systems with pertinent positive or pertinent negative responses have been documented in the HPI. ROS Other: All systems not noted in ROS Statement are negative. 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 History of Any Multi-Drug Resistant Organisms: MRSA Date of last positivie culture/infection: 06/05/18 MDRO Source:: URINE Past Surgical History: Cholecystectomy, Heart Catheterization, Heart Catheterization With Stent, Hysterectomy, Pacemaker Additional Past Surgical History / Comment(s): Evacuation on intracranial hematoma and ressection of hemorrhagic mass, pacemaker 2016, PCI with stent 06/06/18, EGD/colonoscopy, R eye corneal implant/cataract removal, EGD 06/2018, colonoscopy, skin cancer removal. Past Anesthesia/Blood Transfusion Reactions: No Reported Reaction Additional Past Anesthesia/Blood Transfusion Reaction / Comment(s): no previous blood transfusions Date of Last Stent Placement:: 06/06/18 Type of Cardiac Device: Permanent Pacemaker Device Placement Date:: 04/2016 Past Psychological History: Depression Smoking Status: Never smoker Past Alcohol Use History: None Reported Past Drug Use History: None Reported - Past Family History Mother Family Medical History: Cancer, COPD, Hypertension Additional Family Medical History / Comment(s): Mother had bone cancer. Father Family Medical History: Cancer, Hypertension Additional Family Medical History / Comment(s): Father had skin cancer. General Exam Limitations: no limitations Course Vital Signs 09/01/18 09/01/18 14:38 18:36 Temperature 98.2 F Pulse Rate 60 60 Respiratory 18 17 Rate Blood Pressure 171/61 201/80 O2 Sat by Pulse 95 97 Oximetry Medical Decision Making - Lab Data Result diagrams: 09/01/18 15:33 09/01/18 15:33 Lab Results 09/01/18 09/01/18 09/01/18 Range/Units 15:33 15:33 15:33 WBC 7.5 (3.8-10.6) k/uL RBC 4.57 (3.80-5.40) m/uL Hgb 12.3 (11.4-16.0) gm/dL Hct 40.2 (34.0-46.0) % MCV 87.9 (80.0-100.0) fL MCH 26.8 (25.0-35.0) pg MCHC 30.5 L (31.0-37.0) g/dL RDW 13.6 (11.5-15.5) % Plt Count 154 (150-450) k/uL Neutrophils % 68 % Lymphocytes % 22 % Monocytes % 6 % Eosinophils % 3 % Basophils % 1 % Neutrophils # 5.1 (1.3-7.7) k/uL Lymphocytes # 1.6 (1.0-4.8) k/uL Monocytes # 0.4 (0-1.0) k/uL Eosinophils # 0.2 (0-0.7) k/uL Basophils # 0.0 (0-0.2) k/uL Hypochromasia Slight PT 10.6 (9.0-12.0) sec INR 1.0 (<1.2) Sodium 145 (137-145) mmol/L Potassium 4.4 (3.5-5.1) mmol/L Chloride 108 H (98-107) mmol/L Carbon Dioxide 30 (22-30) mmol/L Anion Gap 7 mmol/L BUN 30 H (7-17) mg/dL Creatinine 1.44 H (0.52-1.04) mg/dL Est GFR (CKD-EPI)AfAm 41 (>60 ml/min/1.73 sqM) Est GFR (CKD-EPI)NonAf 36 (>60 ml/min/1.73 sqM) Glucose 147 H (74-99) mg/dL Plasma Lactic Acid Hema (0.7-2.0) mmol/L Calcium 9.3 (8.4-10.2) mg/dL Magnesium 2.1 (1.6-2.3) mg/dL Total Bilirubin 0.7 (0.2-1.3) mg/dL AST 21 (14-36) U/L ALT 15 (9-52) U/L Alkaline Phosphatase 87 (38-126) U/L Creatine Kinase 58 (30-135) U/L Troponin I (0.000-0.034) ng/mL Total Protein 6.6 (6.3-8.2) g/dL Albumin 4.3 (3.5-5.0) g/dL Urine Color Urine Appearance (Clear) Urine pH (5.0-8.0) Ur Specific Cisco (1.001-1.035) Urine Protein (Negative) Urine Glucose (UA) (Negative) Urine Ketones (Negative) Urine Blood (Negative) Urine Nitrite (Negative) Urine Bilirubin (Negative) Urine Urobilinogen (<2.0) mg/dL Ur Leukocyte Esterase (Negative) Urine RBC (0-5) /hpf Urine WBC (0-5) /hpf Ur Squamous Epith Cells (0-4) /hpf Hyaline Casts (0-2) /lpf Urine Mucus (None) /hpf Stool Occult Blood (Negative) Blood Type Blood Type Confirm Blood Type Recheck Antibody Screen Spec Expiration Date 09/01/18 09/01/18 09/01/18 Range/Units 15:33 16:35 16:35 WBC (3.8-10.6) k/uL RBC (3.80-5.40) m/uL Hgb (11.4-16.0) gm/dL Hct (34.0-46.0) % MCV (80.0-100.0) fL MCH (25.0-35.0) pg MCHC (31.0-37.0) g/dL RDW (11.5-15.5) % Plt Count (150-450) k/uL Neutrophils % % Lymphocytes % % Monocytes % % Eosinophils % % Basophils % % Neutrophils # (1.3-7.7) k/uL Lymphocytes # (1.0-4.8) k/uL Monocytes # (0-1.0) k/uL Eosinophils # (0-0.7) k/uL Basophils # (0-0.2) k/uL Hypochromasia PT (9.0-12.0) sec INR (<1.2) Sodium (137-145) mmol/L Potassium (3.5-5.1) mmol/L Chloride (98-107) mmol/L Carbon Dioxide (22-30) mmol/L Anion Gap mmol/L BUN (7-17) mg/dL Creatinine (0.52-1.04) mg/dL Est GFR (CKD-EPI)AfAm (>60 ml/min/1.73 sqM) Est GFR (CKD-EPI)NonAf (>60 ml/min/1.73 sqM) Glucose (74-99) mg/dL Plasma Lactic Acid Hema 1.0 (0.7-2.0) mmol/L Calcium (8.4-10.2) mg/dL Magnesium (1.6-2.3) mg/dL Total Bilirubin (0.2-1.3) mg/dL AST (14-36) U/L ALT (9-52) U/L Alkaline Phosphatase (38-126) U/L Creatine Kinase (30-135) U/L Troponin I <0.012 (0.000-0.034) ng/mL Total Protein (6.3-8.2) g/dL Albumin (3.5-5.0) g/dL Urine Color Urine Appearance (Clear) Urine pH (5.0-8.0) Ur Specific Cisco (1.001-1.035) Urine Protein (Negative) Urine Glucose (UA) (Negative) Urine Ketones (Negative) Urine Blood (Negative) Urine Nitrite (Negative) Urine Bilirubin (Negative) Urine Urobilinogen (<2.0) mg/dL Ur Leukocyte Esterase (Negative) Urine RBC (0-5) /hpf Urine WBC (0-5) /hpf Ur Squamous Epith Cells (0-4) /hpf Hyaline Casts (0-2) /lpf Urine Mucus (None) /hpf Stool Occult Blood (Negative) Blood Type O Positive Blood Type Confirm Blood Type Recheck CABO Indicated Antibody Screen NEGATIVE Spec Expiration Date 09/04/2018 - 23309/01/18 09/01/18 09/01/18 Range/Units 16:35 16:35 16:35 WBC (3.8-10.6) k/uL RBC (3.80-5.40) m/uL Hgb (11.4-16.0) gm/dL Hct (34.0-46.0) % MCV (80.0-100.0) fL MCH (25.0-35.0) pg MCHC (31.0-37.0) g/dL RDW (11.5-15.5) % Plt Count (150-450) k/uL Neutrophils % % Lymphocytes % % Monocytes % % Eosinophils % % Basophils % % Neutrophils # (1.3-7.7) k/uL Lymphocytes # (1.0-4.8) k/uL Monocytes # (0-1.0) k/uL Eosinophils # (0-0.7) k/uL Basophils # (0-0.2) k/uL Hypochromasia PT (9.0-12.0) sec INR (<1.2) Sodium (137-145) mmol/L Potassium (3.5-5.1) mmol/L Chloride (98-107) mmol/L Carbon Dioxide (22-30) mmol/L Anion Gap mmol/L BUN (7-17) mg/dL Creatinine (0.52-1.04) mg/dL Est GFR (CKD-EPI)AfAm (>60 ml/min/1.73 sqM) Est GFR (CKD-EPI)NonAf (>60 ml/min/1.73 sqM) Glucose (74-99) mg/dL Plasma Lactic Acid Hema (0.7-2.0) mmol/L Calcium (8.4-10.2) mg/dL Magnesium (1.6-2.3) mg/dL Total Bilirubin (0.2-1.3) mg/dL AST (14-36) U/L ALT (9-52) U/L Alkaline Phosphatase (38-126) U/L Creatine Kinase (30-135) U/L Troponin I (0.000-0.034) ng/mL Total Protein (6.3-8.2) g/dL Albumin (3.5-5.0) g/dL Urine Color Yellow Urine Appearance Clear (Clear) Urine pH 6.0 (5.0-8.0) Ur Specific Cisco 1.023 (1.001-1.035) Urine Protein Trace H (Negative) Urine Glucose (UA) Negative (Negative) Urine Ketones Negative (Negative) Urine Blood Negative (Negative) Urine Nitrite Negative (Negative) Urine Bilirubin Negative (Negative) Urine Urobilinogen <2.0 (<2.0) mg/dL Ur Leukocyte Esterase Trace H (Negative) Urine RBC 1 (0-5) /hpf Urine WBC 5 (0-5) /hpf Ur Squamous Epith Cells <1 (0-4) /hpf Hyaline Casts 6 H (0-2) /lpf Urine Mucus Rare H (None) /hpf Stool Occult Blood Negative (Negative) Blood Type Blood Type Confirm O Positive Blood Type Recheck Antibody Screen Spec Expiration Date Disposition Clinical Impression: Weakness Disposition: HOME SELF-CARE Condition: Good Instructions (If sedation given, give patient instructions): Weakness (ED) Is patient prescribed a controlled substance at d/c from ED?: No Referrals: Lisa Willingham MD [Primary Care Provider] - 1-2 days Time of Disposition: 18:57
[2018-09-01 16:32] LABS: Basophils % (A) 1 %; Eosinophils # (A) 0.2 k/uL (0-0.7); Eosinophils % (A) 3 %; HCT 40.2 % (34.0-46.0); HGB 12.3 gm/dL (11.4-16.0); Hypochromasia Slight; Lymphocytes # (A) 1.6 k/uL (1.0-4.8); Lymphocytes % (A) 22 %; MCH 26.8 pg (25.0-35.0); MCHC 30.5 g/dL (31.0-37.0); MCV 87.9 fL (80.0-100.0); Mean Platelet Volume 7.3; Monocytes # (A) 0.4 k/uL (0-1.0); Monocytes % (A) 6 %; Neutrophils # (A) 5.1 k/uL (1.3-7.7); Neutrophils % (A) 68 %; Platelet Count 154 k/uL (150-450); RBC 4.57 m/uL (3.80-5.40); RDW 13.6 % (11.5-15.5); WBC 7.5 k/uL (3.8-10.6)
[2018-09-01 16:38] LABS: Prothrombin Time 10.6 sec (9.0-12.0)
--- NOTE | 2018-09-01 16:45 | CT ---
EXAMINATION TYPE: CT brain wo con DATE OF EXAM: 09/01/2018 COMPARISON: 03/27/2018 HISTORY: Weakness and headache CT DLP: 1040.4 mGycm Automated exposure control for dose reduction was used. FINDINGS: There is a 6 cm area of hypodensity in the right occipital lobe and right posterior parietal lobe con sistent with encephalomalacia. There is no mass effect nor midline shift. There is old right occipita l parietal craniotomy defect. There is no sign of intracranial hemorrhage. Ventricles of normal size. 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 PREVIOUS SURGERY. NO ACUTE INTRACRANIAL ABNORMALITY. NO CHANGE COMPARED TO OLD EXAM.
[2018-09-01 16:47] LABS: Albumin 4.3 g/dL (3.5-5.0); Calcium 9.3 mg/dL (8.4-10.2); Magnesium 2.1 mg/dL (1.6-2.3); Potassium 4.4 mmol/L (3.5-5.1); Total Bilirubin 0.7 mg/dL (0.2-1.3); Total Protein 6.6 g/dL (6.3-8.2)
[2018-09-01 16:58] LABS: Appearance,Urine Clear (Clear); Bilirubin,Urine Negative (Negative); Blood,Urine Negative (Negative); Color,Urine Yellow; Glucose,Urine (UA) Negative (Negative); Hyaline Casts,Urine 6 /lpf (0-2); Ketones,Urine Negative (Negative); Leukocyte Esterase,Urine Trace (Negative); Mucus,Urine Rare /hpf; Nitrite,Urine Negative (Negative); Protein,Urine Trace (Negative); RBC,Urine 1 /hpf (0-5); Specific Gravity,Urine 1.023 (1.001-1.035); Squamous Epithelial Cell,Urine <1 /hpf (0-4); Urobilinogen,Urine <2.0 mg/dL (<2.0); WBC,Urine 5 /hpf (0-5)
--- NOTE | 2018-09-01 17:20 | XR ---
EXAMINATION TYPE: XR chest 2V DATE OF EXAM: 09/01/2018 COMPARISON: 07/09/2018 HISTORY: Weakness TECHNIQUE: Frontal and lateral views of the chest are obtained. FINDINGS: Heart is normal. Lungs are clear of infiltrate. There is a left axillary pacemaker with th e lead tips in the right ventricle. There are chest leads. Diaphragm is normal. There is significant deformity of the shoulder joints with apparent old humeral neck fractures. IMPRESSION: No active cardiopulmonary disease. No change.
[2018-09-01 18:37] VITALS: BP 201/80; RESP 17
[2018-09-01] MEDS ORDERED: hydrALAZINE HCL 25 MG TAB PO STA (18:43)
== END 2018-09-01 19:14 | disposition home or self-care (01) ==
LOC: EC 14:13
DX: R53.1 Weakness (principal); R41.82 Altered mental status, unspecified; I25.10 Atherosclerotic heart disease of native coronary artery without angina pectoris; I48.0 Paroxysmal atrial fibrillation; I13.0 Hypertensive heart and chronic kidney disease with heart failure and stage 1 through stage 4 chronic kidney disease, or unspecified chronic kidney disease; I50.9 Heart failure, unspecified; N18.9 Chronic kidney disease, unspecified; J45.909 Unspecified asthma, uncomplicated; Z79.4 Long term (current) use of insulin; Z79.899 Other long term (current) drug therapy; Z91.040 Latex allergy status; Z91.048 Other nonmedicinal substance allergy status; Z88.1 Allergy status to other antibiotic agents; Z88.2 Allergy status to sulfonamides; Z86.73 Personal history of transient ischemic attack (TIA), and cerebral infarction without residual deficits; Z85.42 Personal history of malignant neoplasm of other parts of uterus; Z85.828 Personal history of other malignant neoplasm of skin; Z85.841 Personal history of malignant neoplasm of brain; Z95.0 Presence of cardiac pacemaker; Z95.5 Presence of coronary angioplasty implant and graft
CPT/HCPCS: 36415; 70450; 71046; 80053; 81001; 82272; 82550; 83605; 83735; 84484; 85025; 85610; 86850; 86900; 86901; 87086; 93005; 99285

== ENCOUNTER 2018-10-05 15:01 | Inpatient (IN) | payer MEDICARE ==
[2018-10-05] MEDS ORDERED: SODIUM CHLORIDE 0.9% 1,000 ML IV STA (15:30)
--- NOTE | 2018-10-05 15:54 | ED ---
General Adult HPI - General Chief complaint: Weakness Stated complaint: trouble walking/head pressure Time Seen by Provider: 10/05/18 15:16 Source: patient, RN notes reviewed, old records reviewed Mode of arrival: wheelchair Limitations: no limitations - History of Present Illness Initial comments: Patient is a 73-year-old female who presents emergency department today with multiple complaints. Patient complains of difficulty with ambulation, feeling unsteady on her feet. She reports that that started this morning. Yesterday she was out shopping and was able to walk without significant difficulty. Apparently today when her caregivers were getting her dressed she complained of some chest pain and was slumped over position clutching her chest. Family states that then she started to feel better. After they noticed her difficulty walking they felt that they should come to the ER. Patient reportedly has a history of brain tumor with surgical removal of March of last year. She has had a history of strokes and seizures. Family also states for the past 2 weeks she's been having abnormal mental status, complaining of hearing voices and music and has had some hallucination descriptions. Patient was admitted to the third floor when this happened before. - Related Data Home Medications Medication Instructions Recorded Confirmed Albuterol Inhaler [Ventolin Hfa 1 - 2 puff INHALATION RT-Q6H PRN 03/27/18 10/05/18 Inhaler] Calcium Carbonate 500 mg PO DAILY 03/27/18 10/05/18 Ferrous Sulfate [Iron (65 MG 325 mg PO DAILY 03/27/18 10/05/18 Elemental)] Furosemide [Lasix] 40 mg PO DAILY 03/27/18 10/05/18 Labetalol [Trandate] 100 mg PO Q12H 03/27/18 10/05/18 Potassium Chloride [Klor-Con 8] 8 meq PO DAILY 03/27/18 10/05/18 prednisoLONE ACETATE [Pred Forte 1 drop LEFT EYE DAILY 06/04/18 10/05/18 1%] Triamcinolone 0.1% Ointment 1 applic TOPICAL BID 06/26/18 10/05/18 [Kenalog 0.1% Ointment] levETIRAcetam [Keppra] 500 mg PO Q12HR 07/21/18 10/05/18 Acetaminophen [Tylenol Extra 500 mg PO Q8HR 09/01/18 10/05/18 Strength] Cyanocobalamin (Vitamin B-12) 1,000 mcg PO DAILY 09/01/18 10/05/18 [Vitamin B-12] Gabapentin [Neurontin] 300 mg PO HS 09/01/18 10/05/18 Insulin Glargine [Lantus] 30 unit SQ HS 09/01/18 10/05/18 Sodium Chloride 5% Ophth Soln 1 drop BOTH EYES MOFR 09/01/18 10/05/18 [Amanda 128] hydrALAZINE HCL [Apresoline] 50 mg PO TID 09/01/18 10/05/18 Previous Rx's Medication Instructions Recorded Atorvastatin [Lipitor] 40 mg PO HS #90 tab 06/07/18 Clopidogrel [Plavix] 75 mg PO DAILY #90 tab 06/07/18 Aspirin 81 mg PO DAILY chew 06/11/18 Omeprazole [PriLOSEC] 20 mg PO BID #60 capsule.dr 06/13/18 Isosorbide Mononitrate ER [Imdur] 30 mg PO DAILY #30 tab.er.24h 07/03/18 Escitalopram [Lexapro] 10 mg PO DAILY #30 tab 07/30/18 Nitroglycerin Sl Tabs [Nitrostat] 0.4 mg SUBLINGUAL Q5M PRN tab 07/30/18 QUEtiapine [SEROquel] 100 mg PO HS #30 tab 07/30/18 Allergies Allergy/AdvReac Type Severity Reaction Status Date / Time Latex, Natural Rubber Allergy Itching Verified 10/05/18 17:26 sulfamethoxazole Allergy Rash/Hives Verified 10/05/18 17:26 [From Bactrim] trimethoprim [From Bactrim] Allergy Rash/Hives Verified 10/05/18 17:26 Review of Systems ROS Statement: Those systems with pertinent positive or pertinent negative responses have been documented in the HPI. ROS Other: All systems not noted in ROS Statement are negative. 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 History of Any Multi-Drug Resistant Organisms: MRSA Date of last positivie culture/infection: 06/05/18 MDRO Source:: URINE Past Surgical History: Cholecystectomy, Heart Catheterization, Heart Catheterization With Stent, Hysterectomy, Pacemaker Additional Past Surgical History / Comment(s): Evacuation on intracranial hematoma and ressection of hemorrhagic mass, pacemaker 2016, PCI with stent 06/06/18, EGD/colonoscopy, R eye corneal implant/cataract removal, EGD 06/2018, colonoscopy, skin cancer removal. Past Anesthesia/Blood Transfusion Reactions: No Reported Reaction Additional Past Anesthesia/Blood Transfusion Reaction / Comment(s): no previous blood transfusions Date of Last Stent Placement:: 06/06/18 Type of Cardiac Device: Permanent Pacemaker Device Placement Date:: 04/2016 Past Psychological History: Depression Smoking Status: Never smoker Past Alcohol Use History: None Reported Past Drug Use History: None Reported - Past Family History Mother Family Medical History: Cancer, COPD, Hypertension Additional Family Medical History / Comment(s): Mother had bone cancer. Father Family Medical History: Cancer, Hypertension Additional Family Medical History / Comment(s): Father had skin cancer. General Exam - General Exam Comments Initial Comments: This is a 73-year-old female. Alert and oriented 3. No distress. Limitations: no limitations General appearance: alert, in no apparent distress Head exam: Present: atraumatic, normocephalic, normal inspection Eye exam: Present: normal appearance, PERRL, EOMI. Absent: scleral icterus, conjunctival injection, periorbital swelling ENT exam: Present: normal exam, mucous membranes moist Neck exam: Present: normal inspection Respiratory exam: Present: normal lung sounds bilaterally. Absent: respiratory distress, wheezes, rales, rhonchi, stridor Cardiovascular Exam: Present: regular rate, normal rhythm, normal heart sounds. Absent: systolic murmur, diastolic murmur, rubs, gallop, clicks GI/Abdominal exam: Present: soft, normal bowel sounds. Absent: distended, tenderness, guarding, rebound, rigid Extremities exam: Present: normal inspection, full ROM, normal capillary refill. Absent: tenderness, pedal edema, joint swelling, calf tenderness Back exam: Present: normal inspection Neurological exam: Present: alert, oriented X3, CN II-XII intact Expanded Patient oriented to: Present: person, place, time Speech: Present: fluid speech Cranial nerves: EOM's Intact: Normal Cerebellar function: Finger to Nose: Normal (shaking upper extremity) Upper motor neuron: Pronator Drift: Normal Motor strength exam: RUE: 5, LUE: 4, RLE: 5, LLE: 4 Eye Response: (4) open spontaneously Motor Response: (6) obeys commands Verbal Response: (5) oriented [place] Total: 15 Psychiatric exam: Present: normal affect, normal mood Skin exam: Present: warm, dry, intact, normal color. Absent: rash Course Vital Signs 10/05/18 10/05/18 10/05/18 15:09 16:57 18:00 Temperature 98 F Pulse Rate 62 60 62 Respiratory 16 18 18 Rate Blood Pressure 114/70 156/62 158/62 O2 Sat by Pulse 96 98 97 Oximetry EKG Findings - EKG Comments: EKG Findings:: EKG preformed at 1547 shows atrial paced rhythm with prolonged A- V conduction. ST abnormality considering for ischemia. ST abnormality considering anterolateral ischemia. Prolonged QT. Abnormal EKG. Ventricular rate of 60 bpm. Intervals 03/06/1948 milliseconds. QRS ration is 102 ms. QT QTc is 514 ms. Compared to last EKG on September 01 there is Evidence of similar T- wave inversions in inferior and anterolateral leads. Medical Decision Making - Medical Decision Making 73-year-old female presented today with multiple complaints of family members. She said generalized female states that she's had some episodes of concern for hallucinations. She's been admitted in the past for psychosis. At this time and her main concern is her chest discomfort and generalized weakness and inability to ambulate. At this time labwork was reviewed relative unremarkable. She did have a minor urinary tract infection given 1 dose of Rocephin. Patient EKG did show some worsening T-wave inversions in the anterolateral leads and inferior leads. Troponin was negative. With a concern for chest pain EKG inversions being increased generalized weakness we will admit the Patient for observation. Serial troponins. Consult to to cardiology. - Lab Data Result diagrams: 10/05/18 15:43 10/05/18 15:43 Lab Results 10/05/18 10/05/18 10/05/18 Range/Units 15:43 15:43 15:43 WBC 6.0 (3.8-10.6) k/uL RBC 4.65 (3.80-5.40) m/uL Hgb 12.8 (11.4-16.0) gm/dL Hct 40.1 (34.0-46.0) % MCV 86.2 (80.0-100.0) fL MCH 27.5 (25.0-35.0) pg MCHC 31.9 (31.0-37.0) g/dL RDW 14.1 (11.5-15.5) % Plt Count 149 L (150-450) k/uL Neutrophils % 63 % Lymphocytes % 24 % Monocytes % 7 % Eosinophils % 3 % Basophils % 1 % Neutrophils # 3.8 (1.3-7.7) k/uL Lymphocytes # 1.5 (1.0-4.8) k/uL Monocytes # 0.4 (0-1.0) k/uL Eosinophils # 0.2 (0-0.7) k/uL Basophils # 0.1 (0-0.2) k/uL PT (9.0-12.0) sec INR (<1.2) APTT (22.0-30.0) sec Sodium 140 (137-145) mmol/L Potassium 4.6 (3.5-5.1) mmol/L Chloride 105 (98-107) mmol/L Carbon Dioxide 29 (22-30) mmol/L Anion Gap 6 mmol/L BUN 25 H (7-17) mg/dL Creatinine 1.35 H (0.52-1.04) mg/dL Est GFR (CKD-EPI)AfAm 45 (>60 ml/min/1.73 sqM) Est GFR (CKD-EPI)NonAf 39 (>60 ml/min/1.73 sqM) Glucose 151 H (74-99) mg/dL Plasma Lactic Acid Hema 1.7 (0.7-2.0) mmol/L Calcium 9.2 (8.4-10.2) mg/dL Magnesium 2.2 (1.6-2.3) mg/dL Total Bilirubin 0.5 (0.2-1.3) mg/dL AST 15 (14-36) U/L ALT 15 (9-52) U/L Alkaline Phosphatase 75 (38-126) U/L Troponin I (0.000-0.034) ng/mL Total Protein 6.4 (6.3-8.2) g/dL Albumin 4.1 (3.5-5.0) g/dL Urine Color Urine Appearance (Clear) Urine pH (5.0-8.0) Ur Specific [place] (1.001-1.035) Urine Protein (Negative) Urine Glucose (UA) (Negative) Urine Ketones (Negative) Urine Blood (Negative) Urine Nitrite (Negative) Urine Bilirubin (Negative) Urine Urobilinogen (<2.0) mg/dL Ur Leukocyte Esterase (Negative) Urine RBC (0-5) /hpf Urine WBC (0-5) /hpf Ur Squamous Epith Cells (0-4) /hpf Hyaline Casts (0-2) /lpf Urine Mucus (None) /hpf 10/05/18 10/05/18 10/05/18 Range/Units 15:43 15:43 15:50 WBC (3.8-10.6) k/uL RBC (3.80-5.40) m/uL Hgb (11.4-16.0) gm/dL Hct (34.0-46.0) % MCV (80.0-100.0) fL MCH (25.0-35.0) pg MCHC (31.0-37.0) g/dL RDW (11.5-15.5) % Plt Count (150-450) k/uL Neutrophils % % Lymphocytes % % Monocytes % % Eosinophils % % Basophils % % Neutrophils # (1.3-7.7) k/uL Lymphocytes # (1.0-4.8) k/uL Monocytes # (0-1.0) k/uL Eosinophils # (0-0.7) k/uL Basophils # (0-0.2) k/uL PT 9.8 (9.0-12.0) sec INR 0.9 (<1.2) APTT 23.8 (22.0-30.0) sec Sodium (137-145) mmol/L Potassium (3.5-5.1) mmol/L Chloride (98-107) mmol/L Carbon Dioxide (22-30) mmol/L Anion Gap mmol/L BUN (7-17) mg/dL Creatinine (0.52-1.04) mg/dL Est GFR (CKD-EPI)AfAm (>60 ml/min/1.73 sqM) Est GFR (CKD-EPI)NonAf (>60 ml/min/1.73 sqM) Glucose (74-99) mg/dL Plasma Lactic Acid Hema (0.7-2.0) mmol/L Calcium (8.4-10.2) mg/dL Magnesium (1.6-2.3) mg/dL Total Bilirubin (0.2-1.3) mg/dL AST (14-36) U/L ALT (9-52) U/L Alkaline Phosphatase (38-126) U/L Troponin I <0.012 (0.000-0.034) ng/mL Total Protein (6.3-8.2) g/dL Albumin (3.5-5.0) g/dL Urine Color Yellow Urine Appearance Clear (Clear) Urine pH 6.0 (5.0-8.0) Ur Specific [place] 1.022 (1.001-1.035) Urine Protein 1+ H (Negative) Urine Glucose (UA) Negative (Negative) Urine Ketones Negative (Negative) Urine Blood Negative (Negative) Urine Nitrite Negative (Negative) Urine Bilirubin Negative (Negative) Urine Urobilinogen 2.0 (<2.0) mg/dL Ur Leukocyte Esterase Moderate H (Negative) Urine RBC 2 (0-5) /hpf Urine WBC 14 H (0-5) /hpf Ur Squamous Epith Cells 2 (0-4) /hpf Hyaline Casts 6 H (0-2) /lpf Urine Mucus Rare H (None) /hpf - Radiology Data Radiology results: report reviewed Chronic encephalomalacia deep to craniotomy defect. No acute intracranial processes seen. Chronic changes without any acute cardio pulmonary process. Disposition Clinical Impression: Weakness, Chest pain, UTI (urinary tract infection) Disposition: ADMITTED IP TO THIS HOSP Condition: Stable Is patient prescribed a controlled substance at d/c from ED?: No Time of Disposition: 17:52
[2018-10-05 16:01] LABS: Basophils # (A) 0.1 k/uL (0-0.2); Basophils % (A) 1 %; Eosinophils # (A) 0.2 k/uL (0-0.7); Eosinophils % (A) 3 %; HCT 40.1 % (34.0-46.0); HGB 12.8 gm/dL (11.4-16.0); Lymphocytes # (A) 1.5 k/uL (1.0-4.8); Lymphocytes % (A) 24 %; MCH 27.5 pg (25.0-35.0); MCHC 31.9 g/dL (31.0-37.0); MCV 86.2 fL (80.0-100.0); Mean Platelet Volume 7.4; Monocytes # (A) 0.4 k/uL (0-1.0); Monocytes % (A) 7 %; Neutrophils # (A) 3.8 k/uL (1.3-7.7); Neutrophils % (A) 63 %; Platelet Count 149 k/uL (150-450); RBC 4.65 m/uL (3.80-5.40); RDW 14.1 % (11.5-15.5)
[2018-10-05 16:05] LABS: Appearance,Urine Clear (Clear); Bilirubin,Urine Negative (Negative); Blood,Urine Negative (Negative); Color,Urine Yellow; Glucose,Urine (UA) Negative (Negative); Hyaline Casts,Urine 6 /lpf (0-2); Ketones,Urine Negative (Negative); Leukocyte Esterase,Urine Moderate (Negative); Mucus,Urine Rare /hpf; Nitrite,Urine Negative (Negative); Protein,Urine 1+ (Negative); RBC,Urine 2 /hpf (0-5); Specific Gravity,Urine 1.022 (1.001-1.035); Squamous Epithelial Cell,Urine 2 /hpf (0-4); WBC,Urine 14 /hpf (0-5)
[2018-10-05 16:10] LABS: INR 0.9 (<1.2); Partial Thromboplastin Time 23.8 sec (22.0-30.0); Prothrombin Time 9.8 sec (9.0-12.0)
[2018-10-05 16:13] LABS: Albumin 4.1 g/dL (3.5-5.0); Calcium 9.2 mg/dL (8.4-10.2); Magnesium 2.2 mg/dL (1.6-2.3); Potassium 4.6 mmol/L (3.5-5.1); Total Bilirubin 0.5 mg/dL (0.2-1.3); Total Protein 6.4 g/dL (6.3-8.2)
--- NOTE | 2018-10-05 16:18 | XR ---
EXAMINATION TYPE: XR chest 2V DATE OF EXAM: 10/05/2018 COMPARISON: 09/01/2018 HISTORY: Generalized weakness and shortness of breath on exertion for 2 days TECHNIQUE: Frontal and lateral views of the chest are obtained. FINDINGS: There is no focal air space opacity, pleural effusion, or pneumothorax seen. The cardiac silhouette size is mildly enlarged. Prominence of the main pulmonary artery suggests pulmonary arter ial hypertension as seen on the prior. The osseous structures are intact. Extensive degenerative and possibly post rheumatic changes of the left shoulder. Acromio clavicular arthropathy and mild degener ative changes of the spine are noted. Cholecystectomy clips are seen. IMPRESSION: Chronic changes with no acute cardiopulmonary process.
--- NOTE | 2018-10-05 16:22 | CT ---
EXAMINATION TYPE: CT brain wo con DATE OF EXAM: 10/05/2018 COMPARISON: 09/01/2018 HISTORY: weakness, hx of brain sx for mass CT DLP: 1048.4 mGycm Automated exposure control for dose reduction was used. FINDINGS: There is chronic encephalomalacia of the right posterior occipital region with overlying calvarial de fect from prior craniectomy. This is in keeping with patient's history of prior surgical removal of t he intracranial neoplasm. There is ex vacuo dilatation of the posterior horn of the right lateral sharif tricle. No acute infarct or midline shift is seen. Moise-white matter interface other than the area of encephalomalacia is maintained. Partially into sella turcica is incidentally noted. Atherosclerosis of the intracranial vasculature. No acute calvarial fracture is seen. Hyperostosis of the frontal bon e, incidentally noted. Paranasal sinuses and mastoid air cells are well aerated. Orbits are symmetric . IMPRESSION: CHRONIC ENCEPHALOMALACIA DEEP TO A CRANIOTOMY DEFECT. NO ACUTE INTRACRANIAL PROCESS SEEN.
[2018-10-05] MEDS ORDERED: ONDANSETRON 4 MG/2 ML VIAL IVP STA (17:06)
[2018-10-05] MEDS ORDERED: NALOXONE 0.4 MG/ML 1 ML VIAL IV PRN (17:55)
[2018-10-05] MEDS ORDERED: IBUPROFEN 400 MG TAB PO PRN (17:55)
[2018-10-05] MEDS ORDERED: MORPHINE SULFATE 4 MG/ML SYRINGE IV PRN (17:55)
[2018-10-05] MEDS ORDERED: ACETAMINOPHEN TAB 325 MG TAB PO PRN (17:55)
[2018-10-05] MEDS ORDERED: SODIUM CHLORIDE 0.9% 1,000 ML IV SCH (18:00)
[2018-10-05] MEDS ORDERED: NITROGLYCERIN SL TABS 0.4 MG TAB SUBLINGUAL PRN (19:10)
[2018-10-05] MEDS: hydrALAZINE HCL 50 MG TAB PO SCH (20:11)
[2018-10-05] MEDS: levETIRAcetam 500 MG TAB PO SCH (20:11)
[2018-10-05] MEDS: ACETAMINOPHEN TAB 500 MG TAB PO SCH (20:12)
[2018-10-05 20:21] VITALS: BMI 30.4
[2018-10-05 20:54] LABS: Glucose,Whole Blood 107 mg/dL (75-99)
[2018-10-05] MEDS ORDERED: QUEtiapine 100 MG TAB PO SCH (21:00)
[2018-10-05] MEDS ORDERED: ATORVASTATIN 40 MG TAB PO SCH (21:00)
[2018-10-05] MEDS ORDERED: INSULIN DETEMIR (LEVEMIR) 100 UNIT/ML SYR SQ SCH (21:00)
[2018-10-05] MEDS ORDERED: GABAPENTIN 100 MG CAP PO SCH (21:00)
[2018-10-05] MEDS: LABETALOL 100 MG TAB PO SCH (21:34)
[2018-10-05] MEDS: TRIAMCINOLONE ACET 0.1% OINTMENT 15 GM TUBE TOPICAL SCH (21:35)
[2018-10-06 00:16] VITALS: RESP 18
[2018-10-06 06:39] LABS: Glucose,Whole Blood 129 mg/dL (75-99)
[2018-10-06] MEDS ORDERED: PANTOPRAZOLE 40 MG TABLET PO SCH (07:30)
[2018-10-06] MEDS ORDERED: CALCIUM CARBONATE 500 MG CHEWABLE PO SCH (09:00)
[2018-10-06] MEDS ORDERED: FUROSEMIDE 40 MG TAB PO SCH (09:00)
[2018-10-06] MEDS ORDERED: POTASSIUM CITRATE 10 MEQ TABLET.ER PO SCH (09:00)
[2018-10-06] MEDS ORDERED: CLOPIDOGREL 75 MG TAB PO SCH (09:00)
[2018-10-06] MEDS ORDERED: prednisoLONE ACETATE 1% OPHTH DROPS 5 ML BTL LEFT EYE SCH (09:00)
[2018-10-06] MEDS ORDERED: ESCITALOPRAM 10 MG TAB PO SCH (09:00)
[2018-10-06] MEDS ORDERED: ASPIRIN 81 MG PO SCH (09:00)
[2018-10-06] MEDS ORDERED: ISOSORBIDE MONONITRATE ER 30 MG TAB.ER.24H PO SCH (09:00)
[2018-10-06] MEDS ORDERED: CYANOCOBALAMIN 500 MCG TAB PO SCH (09:00)
[2018-10-06] MEDS ORDERED: FERROUS SULFATE 325 MG TAB PO SCH (09:00)
[2018-10-06] MEDS: levETIRAcetam 500 MG TAB PO SCH (09:01)
[2018-10-06] MEDS: LABETALOL 100 MG TAB PO SCH (09:01)
[2018-10-06] MEDS: hydrALAZINE HCL 50 MG TAB PO SCH (09:01)
[2018-10-06] MEDS: ACETAMINOPHEN TAB 500 MG TAB PO SCH (09:05)
[2018-10-06] MEDS: TRIAMCINOLONE ACET 0.1% OINTMENT 15 GM TUBE TOPICAL SCH (09:05)
--- NOTE | 2018-10-06 10:00 | P.CRDCN ---
History of Present Illness History of present illness: This is Dr. Kidd dictating a consult on this patient The patient was interviewed and examined by me IMPRESSION / ASSESSMENT: Musculoskeletal chest discomfort constant pleuritic in nature tenderness over the ribs T-wave changes diffusely across the precordium and inferior leads without ventricular pacing may be consistent with cardiac memory. She has intermittent ventricular pacing and the second twelve-lead ECG shows a paced rhythm This is consistent with the fact that she has completely normal troponins with a fairly abnormal looking ECG This represents post ventricular pacing cardiac memory PLAN: 2-D echo and Doppler study to assess cardiac structure and function Further recommendations to follow Follow-up with Dr. Mauro and Terese Villegas as an outpatient HPI Patient presented with chest discomfort which is worse with breathing and she is exquisite tenderness in the ribs on the left side anteriorly. The pain was constant and lasted for hours Twelve-lead ECG showed sinus rhythm with deep T-wave inversions in the inferior leads and in the precordial leads According to the ER note she was unsteady on her feet having difficulty with ambulation. She was complaining of chest discomfort She is a history of a brain tumor that was removed in 2017 she's had a history of strokes or seizures ROS: No fever chills or rigors, no cough, phlegm or expectoration, no nausea, vomiting or diarrhea, no hematuria, dysuria, no musculoskeletal complaints, no strokes or seizures, no skin lesions. EXAMINATION: Blood pressure 146/66. His mercury afebrile 98.2F normal respirations nonlabored breathing Exquisitely tender in the ribs on the left side anteriorly using the slightest pressure of the stethoscope Heart sounds are normal no murmurs or gallop or rub Breath sounds are clear no rhonchi no crackles Abdomen soft nontender REVIEW OF LABS, ECG & MEDICAL DATA Medication list was reviewed and is documented in the chart Past medical history of atrial fibrillation coronary artery disease diabetes hypertension paroxysmal atrial fibrillation 2-D echo and Doppler study in 2014 showed preserved LV size and systolic function She was seen in the office by Dr. Mauro in May 2018 she has a permanent pacemaker implanted diabetes hypertension and paroxysmal atrial fibrillation. Pacemaker function is normal. 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 History of Any Multi-Drug Resistant Organisms: MRSA Date of last positivie culture/infection: 06/05/18 MDRO Source:: URINE Past Surgical History: Cholecystectomy, Heart Catheterization, Heart Catheterization With Stent, Hysterectomy, Pacemaker Additional Past Surgical History / Comment(s): Evacuation on intracranial hematoma and ressection of hemorrhagic mass, pacemaker 2016, PCI with stent 06/06/18, EGD/colonoscopy, R eye corneal implant/cataract removal, EGD 06/2018, colonoscopy, skin cancer removal. Past Anesthesia/Blood Transfusion Reactions: No Reported Reaction Additional Past Anesthesia/Blood Transfusion Reaction / Comment(s): no previous blood transfusions Date of Last Stent Placement:: 06/06/18 Type of Cardiac Device: Permanent Pacemaker Device Placement Date:: 04/2016 Past Psychological History: Depression Additional Psychological History / Comment(s): Pt has her son and tiki in law living with her. She is in a wheelchair most of the time. She needs assistance transfering. She no longer drives, her family drives her to [facility]. She has [facility]. Her son manages her medications. Tiki in law cooks. Smoking Status: Never smoker Past Alcohol Use History: None Reported Past Drug Use History: None Reported - Past Family History Mother Family Medical History: Cancer, COPD, Hypertension Additional Family Medical History / Comment(s): Mother had bone cancer. Father Family Medical History: Cancer, Hypertension Additional Family Medical History / Comment(s): Father had skin cancer. Medications and Allergies Home Medications Medication Instructions Recorded Confirmed Type Albuterol Inhaler [Ventolin Hfa 1 - 2 puff INHALATION RT-Q6H PRN 03/27/18 10/05/18 History Inhaler] Calcium Carbonate 500 mg PO DAILY 03/27/18 10/05/18 History Ferrous Sulfate [Iron (65 MG 325 mg PO DAILY 03/27/18 10/05/18 History Elemental)] Furosemide [Lasix] 40 mg PO DAILY 03/27/18 10/05/18 History Labetalol [Trandate] 100 mg PO Q12H 03/27/18 10/05/18 History Potassium Chloride [Klor-Con 8] 8 meq PO DAILY 03/27/18 10/05/18 History prednisoLONE ACETATE [Pred Forte 1 drop LEFT EYE DAILY 06/04/18 10/05/18 History 1%] Atorvastatin [Lipitor] 40 mg PO HS #90 tab 06/07/18 10/05/18 Rx Clopidogrel [Plavix] 75 mg PO DAILY #90 tab 06/07/18 10/05/18 Rx Aspirin 81 mg PO DAILY chew 06/11/18 10/05/18 Rx Omeprazole [PriLOSEC] 20 mg PO BID #60 capsule.dr 06/13/18 10/05/18 Rx Triamcinolone 0.1% Ointment 1 applic TOPICAL BID 06/26/18 10/05/18 History [Kenalog 0.1% Ointment] Isosorbide Mononitrate ER [Imdur] 30 mg PO DAILY #30 tab.er.24h 07/03/18 10/05/18 Rx levETIRAcetam [Keppra] 500 mg PO Q12HR 07/21/18 10/05/18 History Escitalopram [Lexapro] 10 mg PO DAILY #30 tab 07/30/18 10/05/18 Rx Nitroglycerin Sl Tabs [Nitrostat] 0.4 mg SUBLINGUAL Q5M PRN tab 07/30/18 10/05/18 Rx QUEtiapine [SEROquel] 100 mg PO HS #30 tab 07/30/18 10/05/18 Rx Acetaminophen [Tylenol Extra 500 mg PO Q8HR 09/01/18 10/05/18 History Strength] Cyanocobalamin (Vitamin B-12) 1,000 mcg PO DAILY 09/01/18 10/05/18 History [Vitamin B-12] Gabapentin [Neurontin] 300 mg PO HS 09/01/18 10/05/18 History Insulin Glargine [Lantus] 30 unit SQ HS 09/01/18 10/05/18 History Sodium Chloride 5% Ophth Soln 1 drop BOTH EYES MOFR 09/01/18 10/05/18 History [Amanda 128] hydrALAZINE HCL [Apresoline] 50 mg PO TID 09/01/18 10/05/18 History Allergies Allergy/AdvReac Type Severity Reaction Status Date / Time Latex, Natural Rubber Allergy Itching Verified 10/05/18 17:26 sulfamethoxazole Allergy Rash/Hives Verified 10/05/18 17:26 [From Bactrim] trimethoprim [From Bactrim] Allergy Rash/Hives Verified 10/05/18 17:26 Physical Exam Vitals: Vital Signs Temp Pulse Pulse Pulse Resp BP BP 10/06/18 07:00 98.2 F 62 18 10/06/18 04:00 98.2 F 63 18 146/66 10/06/18 00:00 98.1 F 60 18 147/61 10/05/18 23:27 98.2 F 60 20 122/68 10/05/18 20:00 98.4 F 66 18 180/78 10/05/18 19:02 62 18 167/70 10/05/18 18:48 98.1 F 60 18 178/79 10/05/18 18:00 62 18 158/62 10/05/18 16:57 60 18 156/62 10/05/18 15:09 98 F 62 16 114/70 BP Pulse Ox 10/06/18 07:00 160/70 93 L 10/06/18 04:00 90 L 10/06/18 00:00 95 10/05/18 23:27 97 10/05/18 20:00 96 10/05/18 19:02 98 10/05/18 18:48 98 10/05/18 18:00 97 10/05/18 16:57 98 10/05/18 15:09 96 Intake and Output 10/05/18 10/06/18 10/06/18 22:59 06:59 14:59 Other: Voiding Method Toilet Toilet # Voids 1 Weight 85.729 kg Results 10/05/18 15:43 10/05/18 15:43 Cardiac Enzymes 10/05/18 10/05/18 10/05/18 Range/Units 15:43 15:43 20:46 AST 15 (14-36) U/L Troponin I <0.012 <0.012 (0.000-0.034) ng/mL 10/06/18 Range/Units 03:43 AST (14-36) U/L Troponin I <0.012 (0.000-0.034) ng/mL Coagulation 10/05/18 Range/Units 15:43 PT 9.8 (9.0-12.0) sec APTT 23.8 (22.0-30.0) sec CBC 10/05/18 Range/Units 15:43 WBC 6.0 (3.8-10.6) k/uL RBC 4.65 (3.80-5.40) m/uL Hgb 12.8 (11.4-16.0) gm/dL Hct 40.1 (34.0-46.0) % Plt Count 149 L (150-450) k/uL Comprehensive Metabolic Panel 10/05/18 Range/Units 15:43 Sodium 140 (137-145) mmol/L Potassium 4.6 (3.5-5.1) mmol/L Chloride 105 (98-107) mmol/L Carbon Dioxide 29 (22-30) mmol/L BUN 25 H (7-17) mg/dL Creatinine 1.35 H (0.52-1.04) mg/dL Glucose 151 H (74-99) mg/dL Calcium 9.2 (8.4-10.2) mg/dL AST 15 (14-36) U/L ALT 15 (9-52) U/L Alkaline Phosphatase 75 (38-126) U/L Total Protein 6.4 (6.3-8.2) g/dL Albumin 4.1 (3.5-5.0) g/dL Current Medications Generic Name Dose Route Start Last Admin Trade Name Freq PRN Reason Stop Dose Admin Acetaminophen 500 mg 10/06/18 00:00 10/06/18 09:05 Tylenol Tab PO Not Given Q8HR ALEXSANDER Aspirin 81 mg 10/06/18 09:00 10/06/18 09:02 Aspirin PO 81 mg DAILY ALEXSANDER Administration Atorvastatin Calcium 40 mg 10/05/18 21:00 10/05/18 20:13 Lipitor PO 40 mg HS ALEXSANDER Administration Calcium Carbonate/Glycine 500 mg 10/06/18 09:00 10/06/18 09:02 Tums PO 500 mg DAILY ALEXSANDER Administration Clopidogrel Bisulfate 75 mg 10/06/18 09:00 10/06/18 09:03 Plavix PO 75 mg DAILY ALEXSANDER Administration Cyanocobalamin 1,000 mcg 10/06/18 09:00 10/06/18 09:01 Vitamin B-12 PO 1,000 mcg DAILY ALEXSANDER Administration Escitalopram Oxalate 10 mg 10/06/18 09:00 10/06/18 09:02 Lexapro PO 10 mg DAILY ALEXSANDER Administration Ferrous Sulfate 325 mg 10/06/18 09:00 10/06/18 09:02 Feosol PO 325 mg DAILY ALEXSANDER Administration Furosemide 40 mg 10/06/18 09:00 10/06/18 09:02 Lasix PO 40 mg DAILY ALEXSANDER Administration Gabapentin 300 mg 10/05/18 21:00 10/05/18 20:13 Neurontin PO 300 mg HS ALEXSANDER Administration Hydralazine HCl 50 mg 10/05/18 22:00 10/06/18 09:01 Apresoline PO 50 mg TID ALEXSANDER Administration Sodium Chloride 1,000 mls @ 20 mls/hr 10/05/18 18:00 10/05/18 18:14 Saline 0.9% IV 20 mls/hr .Q24H ALEXSANDER Administration Ibuprofen 400 mg 10/05/18 17:55 Motrin PO Q6HR PRN Mild Pain or Fever > 100.5 Insulin Detemir 30 unit 10/05/18 21:00 10/05/18 21:32 Levemir SQ Not Given HS [facility] Isosorbide Mononitrate 30 mg 10/06/18 09:00 10/06/18 09:01 Imdur PO 30 mg DAILY [facility] Administration Labetalol HCl 100 mg 10/05/18 21:00 10/06/18 09:01 Trandate PO 100 mg Q12H ALEXSANDER Administration Levetiracetam 500 mg 10/05/18 21:00 10/06/18 09:01 Keppra PO 500 mg Q12HR ALEXSANDER Administration Morphine Sulfate 4 mg 10/05/18 17:55 Morphine Sulfate (Inj) IV Q4HR PRN Severe Pain Naloxone HCl 0.2 mg 10/05/18 17:55 Narcan IV Q2M PRN Opioid Reversal Nitroglycerin 0.4 mg 10/05/18 19:10 Nitrostat SUBLINGUAL Q5M PRN Chest Pain Pantoprazole Sodium 40 mg 10/06/18 07:30 10/06/18 09:02 Protonix PO 40 mg [id number] ALEXSANDER Administration Potassium Citrate 8 meq 10/06/18 09:00 10/06/18 09:01 Urocit-K PO 8 meq DAILY ALEXSANDER Administration Prednisolone Acetate 1 drops 10/06/18 09:00 Pred Forte 1% LEFT EYE DAILY ALEXSANDER Quetiapine Fumarate 100 mg 10/05/18 21:00 10/05/18 21:34 Seroquel PO 100 mg HS ALEXSANDER Administration Sodium Chloride 1 drops 10/06/18 19:10 Amanda 128 BOTH EYES MOFR ALEXSANDER Triamcinolone Acetonide 1 applic 10/05/18 21:00 10/06/18 09:05 Kenalog TOPICAL Not Given BID ALEXSANDER Intake and Output 10/05/18 10/06/18 10/06/18 22:59 06:59 14:59 Other: Voiding Method Toilet Toilet # Voids 1 Weight 85.729 kg 10/05/18 15:43 10/05/18 15:43
[2018-10-06 11:39] VITALS: PULSE 60
[2018-10-06 11:48] LABS: Glucose,Whole Blood 145 mg/dL (75-99)
--- NOTE | 2018-10-06 13:26 | ECHOF ---
Referral Reason:chest pain MEASUREMENTS -------- HEIGHT: 165.1 cm WEIGHT: 85.7 kg BP: IVSd: 1.2 cm (0.6 - 1.1) LVIDd: 4.1 cm (3.9 - 5.3) LVPWd: 1.3 cm (0.6 - 1.1) IVSs: 1.5 cm LVIDs: 3.0 cm LVPWs: 1.5 cm LA Diam: 5.1 cm (2.7 - 3.8) RVIDd: 3.6 cm (< 3.3) LAESV Index (A-L): 35.38 ml/m Ao Diam: 3.3 cm (2.0 - 3.7) LA Diam: 3.0 cm (2.7 - 3.8) AV Cusp: 1.5 cm (1.5 - 2.6) EPSS: 0.5 cm MV E Declan: 1.06 m/s MV DecT: 211 ms MV A Declan: 1.08 m/s MV E/A Ratio: 0.98 AR PHT: 676 ms RAP: 5.00 mmHg RVSP: 18.32 mmHg MV EF SLOPE: 52.74 mm/s (70 - 150) MV EXCURSION: 17.01 mm (> 18.000) FINDINGS -------- Paced rhythm. This was a technically adequate study. The left ventricular size is normal. There is mild concentric left ventricular hypertrophy. Overa ll left ventricular systolic function is low-normal with, an EF between 50 - 55 %. The right ventricle is normal in size. The left atrium is moderately dilated. LA is moderately dilated 34-39 ml/m2 The right atrial size is normal. There is mild aortic valve sclerosis. Trace to mild aortic regurgitation. Mild mitral regurgitation is present. Mild tricuspid regurgitation present. There is no evidence of pulmonary hypertension. The right v entricular systolic pressure, as measured by Doppler, is 18.32mmHg. Trace/mild (physiologic) pulmonic regurgitation. The aortic root size is normal. There is no pericardial effusion. CONCLUSIONS -------- 1. The left ventricular size is normal. 2. There is mild concentric left ventricular hypertrophy. 3. Overall left ventricular systolic function is low-normal with, an EF between 50 - 55 %. 4. The right ventricle is normal in size. 5. The left atrium is moderately dilated. 6. LA is moderately dilated 34-39 ml/m2 7. The right atrial size is normal. 8. There is mild aortic valve sclerosis. 9. Trace to mild aortic regurgitation. 10. Mild mitral regurgitation is present. 11. Mild tricuspid regurgitation present. 12. There is no evidence of pulmonary hypertension. 13. The right ventricular systolic pressure, as measured by Doppler, is 18.32mmHg. 14. Trace/mild (physiologic) pulmonic regurgitation. 15. The aortic root size is normal. 16. There is no pericardial effusion. NETWORKING TECHNOLOGY INSTRUCTOR: Lucy Adams RDCS
--- NOTE | 2018-10-06 15:20 | P.HPIM ---
History of Present Illness H&P Date: 10/06/18 Chief Complaint: Chest pain History of presenting complaint: This is a pleasant 72-year-old patient follows with Dr. escamilla. Chronic stable medical conditions include congestive heart failure from gastric dysfunction, sick sinus syndrome with pacemaker, diabetes, hypertension, osteoarthritis, depression, coronary artery disease with stent, history of intra- cranial bleed following brain tumor being removed, chronic kidney disease. Patient presents with lower chest pain. Unable to describe the nature. This lasted for a few minutes. Patient was mildly short of breath. Recovered. Appetite has been okay. Had associated nausea. The pain did not radiate. Not dizziness, lightheadedness. Admitted for a cardiology opinion. ate well this morning. Review of systems: GEN.: None EYES: None HEENT: Decreased hearing NECK: None RESPIRATORY: None CARDIOVASCULAR: None GASTROINTESTINAL: None GENITOURINARY: None MUSCULOSKELETAL: Joint pains LYMPHATICS: None HEMATOLOGICAL: None PSYCHIATRY: Anxious NEUROLOGICAL: Uses a walker Past medical history: Congestive heart failure from diastolic dysfunction, sick sinus syndrome with pacemaker, diabetes, hypertension, osteoarthritis, depression, atrial fibrillation, hypertension, coronary artery disease with stent, brain metastases with surgery had intracranial bleed and seizure for a short time after that, chronic kidney disease, psychosis, uterine cancer with surgery, colitis, cardiac catheterization with stent Social history: Son and [id number] live with her. She mostly uses a wheelchair. Does not smoke or drink alcohol. Family history: COPD, hypertension, mother had bone cancer Physical examination: VITAL SIGNS: 98, 62, 16, 114/70, 96% room air GENERAL: BMI 30.5, laying in bed a bit tired appearing. EYES: Pupils equal. Conjunctiva normal. HEENT: External appearance of nose and ears normal, oral cavity grossly normal. NECK: JVD not raised; masses not palpable. HEART: First and second heart sounds are normal; no edema. LUNGS: Respiratory rate normal; clear to auscultation. ABDOMEN: Soft, nontender, liver spleen not palpable, no masses palpable. PSYCH: Alert and oriented x3; mood and affect . Anxiousl. NEUROLOGICAL: Cranial nerves grossly intact; no facial asymmetry, power and sensation grossly intact. LYMPHATICS: No lymph nodes palpable in the axilla and neck MUSCULOSKELETAL: Evidence of osteoarthritis especially in the hands INVESTIGATIONS, reviewed in the clinical context: White count 16:12.8 potassium 4.6 bun 25 creatinine 1.35 07/22/2018 bun was 22 creatinine was 1.54 EKG tracing personally reviewed by me shows atrial paced rhythm with ST segment changes Chest x-ray film personally reviewed by me shows borderline cardiomegaly. Lung aly are clear 2-D echo-EF 50-55% Troponin 2 negative Assessment: Anterior chest wall pain in a patient with known coronary artery disease, with atypical features, suspect GI source -Chronic congestive heart failure from diastolic dysfunction EF 50-55% -6 sinus syndrome with a pacemaker -Diabetes mellitus type 2 chronically on insulin -Essential hypertension -Primary osteoarthritis -Depression otherwise specified -Persistent atrial fibrillation -Coronary artery disease prior history of stent -Chronic kidney disease stage III probably from nephrosclerosis Plan: Patient's presentation is not sounding cardiac. Cardiology was consulted. Initial troponins are negative. Home medications are renewed. Care was dis cussed with the patient. Follow with cardiology. 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 History of Any Multi-Drug Resistant Organisms: MRSA Date of last positivie culture/infection: 06/05/18 MDRO Source:: URINE Past Surgical History: Cholecystectomy, Heart Catheterization, Heart Catheterization With Stent, Hysterectomy, Pacemaker Additional Past Surgical History / Comment(s): Evacuation on intracranial hematoma and ressection of hemorrhagic mass, pacemaker 2016, PCI with stent 06/06/18, EGD/colonoscopy, R eye corneal implant/cataract removal, EGD 06/2018, colonoscopy, skin cancer removal. Past Anesthesia/Blood Transfusion Reactions: No Reported Reaction Additional Past Anesthesia/Blood Transfusion Reaction / Comment(s): no previous blood transfusions Date of Last Stent Placement:: 06/06/18 Type of Cardiac Device: Permanent Pacemaker Device Placement Date:: 04/2016 Past Psychological History: Depression Additional Psychological History / Comment(s): Pt has her son and tiki in law living with her. She is in a wheelchair most of the time. She needs assistance transfering. She no longer drives, her family drives her to [facility]. She has [facility]. Her son manages her medications. Tiki in law cooks. Smoking Status: Never smoker Past Alcohol Use History: None Reported Past Drug Use History: None Reported - Past Family History Mother Family Medical History: Cancer, COPD, Hypertension Additional Family Medical History / Comment(s): Mother had bone cancer. Father Family Medical History: Cancer, Hypertension Additional Family Medical History / Comment(s): Father had skin cancer. Medications and Allergies Home Medications Medication Instructions Recorded Confirmed Type Albuterol Inhaler [Ventolin Hfa 1 - 2 puff INHALATION RT-Q6H PRN 03/27/18 10/05/18 History Inhaler] Calcium Carbonate 500 mg PO DAILY 03/27/18 10/05/18 History Ferrous Sulfate [Iron (65 MG 325 mg PO DAILY 03/27/18 10/05/18 History Elemental)] Furosemide [Lasix] 40 mg PO DAILY 03/27/18 10/05/18 History Labetalol [Trandate] 100 mg PO Q12H 03/27/18 10/05/18 History Potassium Chloride [Klor-Con 8] 8 meq PO DAILY 03/27/18 10/05/18 History prednisoLONE ACETATE [Pred Forte 1 drop LEFT EYE DAILY 06/04/18 10/05/18 History 1%] Atorvastatin [Lipitor] 40 mg PO HS #90 tab 06/07/18 10/05/18 Rx Clopidogrel [Plavix] 75 mg PO DAILY #90 tab 06/07/18 10/05/18 Rx Aspirin 81 mg PO DAILY chew 06/11/18 10/05/18 Rx Omeprazole [PriLOSEC] 20 mg PO BID #60 capsule. 06/13/18 10/05/18 Rx Triamcinolone 0.1% Ointment 1 applic TOPICAL BID 06/26/18 10/05/18 History [Kenalog 0.1% Ointment] Isosorbide Mononitrate ER [Imdur] 30 mg PO DAILY #30 tab.er.24h 07/03/18 10/05/18 Rx levETIRAcetam [Keppra] 500 mg PO Q12HR 07/21/18 10/05/18 History Escitalopram [Lexapro] 10 mg PO DAILY #30 tab 07/30/18 10/05/18 Rx Nitroglycerin Sl Tabs [Nitrostat] 0.4 mg SUBLINGUAL Q5M PRN tab 07/30/18 10/05/18 Rx QUEtiapine [SEROquel] 100 mg PO HS #30 tab 07/30/18 10/05/18 Rx Acetaminophen [Tylenol Extra 500 mg PO Q8HR 09/01/18 10/05/18 History Strength] Cyanocobalamin (Vitamin B-12) 1,000 mcg PO DAILY 09/01/18 10/05/18 History [Vitamin B-12] Gabapentin [Neurontin] 300 mg PO HS 09/01/18 10/05/18 History Insulin Glargine [Lantus] 30 unit SQ HS 09/01/18 10/05/18 History Sodium Chloride 5% Ophth Soln 1 drop BOTH EYES MOFR 09/01/18 10/05/18 History [Amanda 128] hydrALAZINE HCL [Apresoline] 50 mg PO TID 09/01/18 10/05/18 History Allergies Allergy/AdvReac Type Severity Reaction Status Date / Time Latex, Natural Rubber Allergy Itching Verified 10/05/18 17:26 sulfamethoxazole Allergy Rash/Hives Verified 10/05/18 17:26 [From Bactrim] trimethoprim [From Bactrim] Allergy Rash/Hives Verified 10/05/18 17:26 Physical Exam Vitals: Vital Signs Temp Pulse Pulse Pulse Resp BP BP 10/06/18 07:00 98.2 F 62 18 10/06/18 04:00 98.2 F 63 18 146/66 10/06/18 00:00 98.1 F 60 18 147/61 10/05/18 23:27 98.2 F 60 20 122/68 10/05/18 20:00 98.4 F 66 18 180/78 10/05/18 19:02 62 18 167/70 10/05/18 18:48 98.1 F 60 18 178/79 10/05/18 18:00 62 18 158/62 10/05/18 16:57 60 18 156/62 10/05/18 15:09 98 F 62 16 114/70 BP Pulse Ox 10/06/18 07:00 160/70 93 L 10/06/18 04:00 90 L 10/06/18 00:00 95 10/05/18 23:27 97 10/05/18 20:00 96 10/05/18 19:02 98 10/05/18 18:48 98 10/05/18 18:00 97 10/05/18 16:57 98 10/05/18 15:09 96 Intake and Output 10/05/18 10/06/18 10/06/18 22:59 06:59 14:59 Other: Voiding Method Toilet Toilet # Voids 1 Weight 85.729 kg Results CBC & Chem 7: 10/05/18 15:43 10/05/18 15:43 Labs: Abnormal Lab Results - Last 24 Hours (Table) 10/05/18 10/05/18 10/05/18 Range/Units 15:43 15:43 15:50 Plt Count 149 L (150-450) k/uL BUN 25 H (7-17) mg/dL Creatinine 1.35 H (0.52-1.04) mg/dL Glucose 151 H (74-99) mg/dL POC Glucose (mg/dL) (75-99) mg/dL Urine Protein 1+ H (Negative) Ur Leukocyte Esterase Moderate H (Negative) Urine WBC 14 H (0-5) /hpf Hyaline Casts 6 H (0-2) /lpf Urine Mucus Rare H (None) /hpf 10/05/18 10/06/18 Range/Units 20:49 06:35 Plt Count (150-450) k/uL BUN (7-17) mg/dL Creatinine (0.52-1.04) mg/dL Glucose (74-99) mg/dL POC Glucose (mg/dL) 107 H 129 H (75-99) mg/dL Urine Protein (Negative) Ur Leukocyte Esterase (Negative) Urine WBC (0-5) /hpf Hyaline Casts (0-2) /lpf Urine Mucus (None) /hpf Microbiology - Last 24 Hours (Table) 10/05/18 15:50 Urine Culture - Preliminary Urine,Voided Thrombosis Risk Factor Assmnt - Choose All That Apply Each Risk Factor Represents 2 Points: Age 61-74 years Other congenital or acquired thrombophilia - If yes, enter type in comment: No Thrombosis Risk Factor Assessment Total Risk Factor Score: 2 Thrombosis Risk Factor Assessment Level: Low Risk
[2018-10-06 15:47] VITALS: BP 161/71; TEMP 98.3
[2018-10-06 16:34] LABS: Glucose,Whole Blood 142 mg/dL (75-99)
[2018-10-06] MEDS ORDERED: SODIUM CHLORIDE 5% OPHTH DROPS 15 ML BTL BOTH EYES SCH (19:10)
--- NOTE | 2018-10-07 10:42 | P.DS ---
Providers Date of admission: 10/06/18 14:28 Expected date of discharge: 10/06/18 Attending physician: Jhonathan Hatfield Consults: 10/05/18 17:55 Consult Physician Stat Consulting Provider: Jaiden Hawk Consult Reason/Comments: Chest pain Do you want consulting provider notified?: Yes 10/05/18 18:48 Consult Physician Stat Consulting Provider: Tunde Cannon Consult Reason/Comments: hx of hallucinations, threats to family Do you want consulting provider notified?: Already Contacted Primary care physician: [facility] Course: Hospital course: This is a pleasant 72-year-old patient follows with Dr. escamilla. Chronic stable medical conditions include congestive heart failure from gastric dysfunction, sick sinus syndrome with pacemaker, diabetes, hypertension, osteoarthritis, depression, coronary artery disease with stent, history of intra- cranial bleed following brain tumor being removed, chronic kidney disease. Patient presents with lower chest pain. Unable to describe the nature. This lasted for a few minutes. Patient was mildly short of breath. Recovered. Appetite has been okay. Had associated nausea. The pain did not radiate. Not dizziness, lightheadedness. Admitted for a cardiology opinion. ate well this morning. Seen by cardiology. It was felt to be musculoskeletal. Patient doing well before discharge. Consultation: Dr. Fredrick Lee from cardiology Physical examination: VITAL SIGNS: 98.2, 60, 18, 1 54 x 6 6, 92% room air GENERAL: BMI 30.5, laying in bed a bit tired appearing. EYES: Pupils equal. Conjunctiva normal. HEENT: External appearance of nose and ears normal, oral cavity grossly normal. NECK: JVD not raised; masses not palpable. HEART: First and second heart sounds are normal; no edema. LUNGS: Respiratory rate normal; clear to auscultation. ABDOMEN: Soft, nontender, liver spleen not palpable, no masses palpable. PSYCH: Alert and oriented x3; mood and affect . Anxiousl. MUSCULOSKELETAL: Evidence of osteoarthritis especially in the hands INVESTIGATIONS, reviewed in the clinical context: White count 16:12.8 potassium 4.6 bun 25 creatinine 1.35 07/22/2018 bun was 22 creatinine was 1.54 EKG tracing personally reviewed by me shows atrial paced rhythm with ST segment changes Chest x-ray film personally reviewed by me shows borderline cardiomegaly. Lung aly are clear 2-D echo-EF 50-55% Troponin 2 negative Discharge diagnosis: -Anterior chest wall pain in a patient with known coronary artery disease, with atypical features, suspect GI source or musculoskeletal -Chronic congestive heart failure from diastolic dysfunction EF 50-55% -sick sinus syndrome with a pacemaker -Diabetes mellitus type 2 chronically on insulin -Essential hypertension -Primary osteoarthritis -Depression otherwise specified -Persistent atrial fibrillation -Coronary artery disease prior history of stent -Chronic kidney disease stage III probably from nephrosclerosis Disposition: Home Patient Condition at Discharge: Stable Plan - Discharge Summary Discharge Rx Participant: No New Discharge Prescriptions: Continue Potassium Chloride [Klor-Con 8] 8 meq PO DAILY Labetalol [Trandate] 100 mg PO Q12H Furosemide [Lasix] 40 mg PO DAILY Calcium Carbonate 500 mg PO DAILY Ferrous Sulfate [Iron (65 MG Elemental)] 325 mg PO DAILY Albuterol Inhaler [Ventolin Hfa Inhaler] 1 - 2 puff INHALATION RT-Q6H PRN PRN Reason: Shortness Of Breath prednisoLONE ACETATE [Pred Forte 1%] 1 drop LEFT EYE DAILY Atorvastatin [Lipitor] 40 mg PO HS #90 tab Clopidogrel [Plavix] 75 mg PO DAILY #90 tab Aspirin 81 mg PO DAILY chew Omeprazole [PriLOSEC] 20 mg PO BID #60 capsule.dr Triamcinolone 0.1% Ointment [Kenalog 0.1% Ointment] 1 applic TOPICAL BID Isosorbide Mononitrate ER [Imdur] 30 mg PO DAILY #30 tab.er.24h levETIRAcetam [Keppra] 500 mg PO Q12HR Escitalopram [Lexapro] 10 mg PO DAILY #30 tab Nitroglycerin Sl Tabs [Nitrostat] 0.4 mg SUBLINGUAL Q5M PRN tab PRN Reason: Chest Pain QUEtiapine [SEROquel] 100 mg PO HS #30 tab Insulin Glargine [Lantus] 30 unit SQ HS Cyanocobalamin (Vitamin B-12) [Vitamin B-12] 1,000 mcg PO DAILY Sodium Chloride 5% Ophth Soln [Amanda 128] 1 drop BOTH EYES MOFR hydrALAZINE HCL [Apresoline] 50 mg PO TID Gabapentin [Neurontin] 300 mg PO HS Acetaminophen [Tylenol Extra Strength] 500 mg PO Q8HR Discharge Medication List Albuterol Inhaler [Ventolin Hfa Inhaler] 1 - 2 puff INHALATION RT-Q6H PRN 03/27 [History] Calcium Carbonate 500 mg PO DAILY 03/27/18 [History] Ferrous Sulfate [Iron (65 MG Elemental)] 325 mg PO DAILY 03/27/18 [History] Furosemide [Lasix] 40 mg PO DAILY 03/27/18 [History] Labetalol [Trandate] 100 mg PO Q12H 03/27/18 [History] Potassium Chloride [Klor-Con 8] 8 meq PO DAILY 03/27/18 [History] prednisoLONE ACETATE [Pred Forte 1%] 1 drop LEFT EYE DAILY 06/04/18 [History] Atorvastatin [Lipitor] 40 mg PO HS #90 tab 06/07/18 [Rx] Clopidogrel [Plavix] 75 mg PO DAILY #90 tab 06/07/18 [Rx] Aspirin 81 mg PO DAILY chew 06/11/18 [Rx] Omeprazole [PriLOSEC] 20 mg PO BID #60 capsule. 06/13/18 [Rx] Triamcinolone 0.1% Ointment [Kenalog 0.1% Ointment] 1 applic TOPICAL BID 06/26/18 [History] Isosorbide Mononitrate ER [Imdur] 30 mg PO DAILY #30 tab.er.24h 07/03/18 [Rx] levETIRAcetam [Keppra] 500 mg PO Q12HR 07/21/18 [History] Escitalopram [Lexapro] 10 mg PO DAILY #30 tab 07/30/18 [Rx] Nitroglycerin Sl Tabs [Nitrostat] 0.4 mg SUBLINGUAL Q5M PRN tab 07/30/18 [Rx] QUEtiapine [SEROquel] 100 mg PO HS #30 tab 07/30/18 [Rx] Acetaminophen [Tylenol Extra Strength] 500 mg PO Q8HR 09/01/18 [History] Cyanocobalamin (Vitamin B-12) [Vitamin B-12] 1,000 mcg PO DAILY 09/01/18 [History] Gabapentin [Neurontin] 300 mg PO HS 09/01/18 [History] Insulin Glargine [Lantus] 30 unit SQ HS 09/01/18 [History] Sodium Chloride 5% Ophth Soln [Amanda 128] 1 drop BOTH EYES MOFR 09/01/18 [History] hydrALAZINE HCL [Apresoline] 50 mg PO TID 09/01/18 [History] Follow up Appointment(s)/Referral(s): cardiology, [Other] - 1 Week Jas Quinn MD [Primary Care Provider] - 1-2 days Patient Instructions/Handouts: Chest Pain (GEN)
--- NOTE | 2018-10-08 03:19 | CDI ---
Documentation Clarification Form Date: 10/08/18 From: Brian Dash Phone: call to [phone] Admit Date: 10/06/2018 2:28:00 PM Patient Name: Zehra Montes Visit Number: [id number] Discharge Date: 10/06/2018 5:57:00 PM ATTENTION: The Clinical Documentation Specialists (CDI) and [facility] Coding Staff appreciate your assistance in clarifying documentation. Please respond to the clarification below the line at the bottom and electronically sign. The CDI & [facility] Coding staff will review the response and follow-up if needed. Please note: Queries are made part of the Legal Health Record. If you have any questions, please contact the author of this message via ITS. Dr. Jhonathan Hatfield The patient presented with the chest pain. History/Risk Factors: gastritis, gastric erosions,gastric lesions Radiology findings: No acute cardiopulmonary process Treatment: conservative treatement Consults:cardiology. Per cardiology it was Musculoskeletal.In discharge summary stated as chest pain secondary to musculoskeletal or GI source. In your professional opinion, can you please clarify the GI source diagnosis causing chest pain. GERD Other, please specify Unable to determine chest pain possibly from GERD MTDD
== END 2018-10-06 17:57 | disposition home or self-care (01) | DRG 392 ==
LOC: EC 15:01 → 3SCARD 17:08 → 1SOBS 23:50 → OBSVTOIN 10-06 14:28
PROVIDERS: ADMIT Hospitalist; ATTEND Hospitalist
DX: K21.9 Gastro-esophageal reflux disease without esophagitis (principal); I13.0 Hypertensive heart and chronic kidney disease with heart failure and stage 1 through stage 4 chronic kidney disease, or unspecified chronic kidney disease; I50.32 Chronic diastolic (congestive) heart failure; R07.89 Other chest pain; E11.22 Type 2 diabetes mellitus with diabetic chronic kidney disease; F32.9 Major depressive disorder, single episode, unspecified; I48.0 Paroxysmal atrial fibrillation; J45.909 Unspecified asthma, uncomplicated; M19.91 Primary osteoarthritis, unspecified site; N18.3 Chronic kidney disease, stage 3 (moderate); I25.10 Atherosclerotic heart disease of native coronary artery without angina pectoris; Z79.02 Long term (current) use of antithrombotics/antiplatelets; Z79.4 Long term (current) use of insulin; Z79.82 Long term (current) use of aspirin; Z79.899 Other long term (current) drug therapy; Z80.8 Family history of malignant neoplasm of other organs or systems; Z82.49 Family history of ischemic heart disease and other diseases of the circulatory system; Z85.42 Personal history of malignant neoplasm of other parts of uterus; Z82.5 Family history of asthma and other chronic lower respiratory diseases; Z85.828 Personal history of other malignant neoplasm of skin; Z86.73 Personal history of transient ischemic attack (TIA), and cerebral infarction without residual deficits; Z87.11 Personal history of peptic ulcer disease; Z90.710 Acquired absence of both cervix and uterus; Z88.2 Allergy status to sulfonamides; Z95.5 Presence of coronary angioplasty implant and graft; Z91.040 Latex allergy status
CPT/HCPCS: 36415; 70450; 71046; 80053; 81001; 83605; 83735; 84484; 85025; 85610; 85730; 87040; 87086; 93005; 93306; 96361; 96374; 99285

== ENCOUNTER 2018-10-21 14:39 | Emergency (ER) | payer MEDICARE ==
--- NOTE | 2018-10-21 15:32 | ED ---
General Adult HPI - General Source: patient Mode of arrival: wheelchair Limitations: no limitations <ScottScooter Julee - Last Filed: 10/21/18 16:04> <Juno Phillip - Last Filed: 10/21/18 18:19> - General Chief complaint: Psychiatric Symptoms Stated complaint: Mental health Time Seen by Provider: 10/21/18 14:56 - History of Present Illness Initial comments: Dictation was produced using i-drive dictation software. please excuse any grammatical, word or spelling errors. Chief Complaint: 73-year-old female presents with mental breakdown. History of Present Illness: She is 73-year-old female she presents today with nervous breakdown. Patient's been arguing with her [id number] for several hours. She denies any medical complaints. She states that she is not homicidal suicidal. She is here voluntarily and would like to be evaluated by EPS. Nonetheless, patient has a petition written by family members. Patient has any psychiatric complaints. The ROS documented in this emergency department record has been reviewed and confirmed by me. Those systems with pertinent positive or negative responses have been documented in the HPI. All other systems are other negative and/or noncontributory. PHYSICAL EXAM: General Impression: Alert and oriented x3, not in acute distress HEENT: Normocephalic atraumatic, extra-ocular movements intact, pupils equal and reactive to light bilaterally, mucous membranes moist. Cardiovascular: Heart regular rate and rhythm, S1&S2 audible, no murmurs, rubs or gallops Chest: Lungs clear to auscultation bilaterally, no rhonchi, no wheeze, no rales Abdomen: Bowel sounds present, abdomen soft, non-tender, non-distended, no organomegaly Musculoskeletal: Pulses present and equal in all extremities, no peripheral edema Motor: no focal deficits noted Neurological: CN II-XII grossly intact, no focal motor or sensory deficits noted Skin: Intact with no visualized rashes Psych: Normal affect and mood ED course: 73-year-old female presents with chief complaint of nervous breakdown. Patient does seem a little agitated however is constant and pleasant. She denies any suicidal or homicidal ideation. Patient alert and oriented 4. She denies any delusional behavior. Patient not acutely psychotic. She is here voluntarily and wants to be evaluated by EPS. Patient has no medical complaints at this time. Patient medically cleared for EPS evaluation. (Scooter Chavez) - Related Data Home Medications Medication Instructions Recorded Confirmed Albuterol Inhaler [Ventolin Hfa 1 - 2 puff INHALATION RT-Q6H PRN 03/27/18 10/21/18 Inhaler] Calcium Carbonate 500 mg PO DAILY 03/27/18 10/21/18 Ferrous Sulfate [Iron (65 MG 325 mg PO DAILY 03/27/18 10/21/18 Elemental)] Furosemide [Lasix] 40 mg PO DAILY 03/27/18 10/21/18 Labetalol [Trandate] 100 mg PO Q12H 03/27/18 10/21/18 Potassium Chloride [Klor-Con 8] 8 meq PO DAILY 03/27/18 10/21/18 prednisoLONE ACETATE [Pred Forte 1 drop LEFT EYE DAILY 06/04/18 10/21/18 1%] Triamcinolone 0.1% Ointment 1 applic TOPICAL BID 06/26/18 10/21/18 [Kenalog 0.1% Ointment] levETIRAcetam [Keppra] 500 mg PO Q12HR 07/21/18 10/21/18 Acetaminophen [Tylenol Extra 500 mg PO Q8HR 09/01/18 10/21/18 Strength] Cyanocobalamin (Vitamin B-12) 1,000 mcg PO DAILY 09/01/18 10/21/18 [Vitamin B-12] Gabapentin [Neurontin] 300 mg PO HS 09/01/18 10/21/18 Insulin Glargine [Lantus] 30 unit SQ HS 09/01/18 10/21/18 Sodium Chloride 5% Ophth Soln 1 drop BOTH EYES MOFR 09/01/18 10/21/18 [Amanda 128] hydrALAZINE HCL [Apresoline] 50 mg PO TID 09/01/18 10/21/18 Previous Rx's Medication Instructions Recorded Atorvastatin [Lipitor] 40 mg PO HS #90 tab 06/07/18 Clopidogrel [Plavix] 75 mg PO DAILY #90 tab 06/07/18 Aspirin 81 mg PO DAILY chew 06/11/18 Omeprazole [PriLOSEC] 20 mg PO BID #60 capsule. 06/13/18 Isosorbide Mononitrate ER [Imdur] 30 mg PO DAILY #30 tab.er.24h 07/03/18 Escitalopram [Lexapro] 10 mg PO DAILY #30 tab 07/30/18 Nitroglycerin Sl Tabs [Nitrostat] 0.4 mg SUBLINGUAL Q5M PRN tab 07/30/18 QUEtiapine [SEROquel] 100 mg PO HS #30 tab 07/30/18 Allergies Allergy/AdvReac Type Severity Reaction Status Date / Time Latex, Natural Rubber Allergy Itching Verified 10/21/18 15:02 sulfamethoxazole Allergy Rash/Hives Verified 10/21/18 15:02 [From Bactrim] trimethoprim [From Bactrim] Allergy Rash/Hives Verified 10/21/18 15:02 Review of Systems ROS Other: All systems not noted in ROS Statement are negative. <Scooter Chavez - Last Filed: 10/21/18 16:04> ROS Other: All systems not noted in ROS Statement are negative. <Juno Phillip - Last Filed: 10/21/18 18:19> ROS Statement: Those systems with pertinent positive or pertinent negative responses have been documented in the HPI. 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 History of Any Multi-Drug Resistant Organisms: MRSA Date of last positivie culture/infection: 06/05/18 MDRO Source:: URINE Past Surgical History: Cholecystectomy, Heart Catheterization, Heart Catheterization With Stent, Hysterectomy, Pacemaker Additional Past Surgical History / Comment(s): Evacuation on intracranial hematoma and ressection of hemorrhagic mass, pacemaker 2016, PCI with stent 06/06/18, EGD/colonoscopy, R eye corneal implant/cataract removal, EGD 06/2018, colonoscopy, skin cancer removal. Past Anesthesia/Blood Transfusion Reactions: No Reported Reaction Additional Past Anesthesia/Blood Transfusion Reaction / Comment(s): no previous blood transfusions Date of Last Stent Placement:: 06/06/18 Type of Cardiac Device: Permanent Pacemaker Device Placement Date:: 04/2016 Past Psychological History: Depression Smoking Status: Never smoker Past Alcohol Use History: None Reported Past Drug Use History: None Reported - Past Family History Mother Family Medical History: Cancer, COPD, Hypertension Additional Family Medical History / Comment(s): Mother had bone cancer. Father Family Medical History: Cancer, Hypertension Additional Family Medical History / Comment(s): Father had skin cancer. <Scooter Chavez - Last Filed: 10/21/18 16:04> General Exam Limitations: no limitations <Scooter hCavez - Last Filed: 10/21/18 16:04> Course Vital Signs 10/21/18 10/21/18 14:42 16:44 Temperature 99.4 F Pulse Rate 60 77 Respiratory 18 18 Rate Blood Pressure 191/66 158/88 O2 Sat by Pulse 94 L 99 Oximetry Medical Decision Making - Lab Data Result diagrams: 10/21/18 15:24 10/21/18 15:24 <Scooter Chavez - Last Filed: 10/21/18 16:04> - Lab Data Result diagrams: 10/21/18 15:24 10/21/18 15:24 <Juno Phillip - Last Filed: 10/21/18 18:19> - Medical Decision Making The patient was passed out from previous shift. She was cleared from a medical standpoint for psychiatric evaluation. She does have some mild renal insufficiency noted on labs otherwise laboratory was essentially within normal limits are unremarkable. The patient was seen by the psychiatric team and the nurse does present and relates that the patient is stable for discharge. She apparently was having some sounds of hissing noises in her years but she otherwise is not homicidal or suicidal. She apparently does not meet any psych iatric inpatient treatment. She's been taking her medications as prescribed. They will provide some appropriate follow-up for patient as well. (Juno Phillip) - Lab Data Lab Results 10/21/18 10/21/18 10/21/18 Range/Units 15:24 15:24 17:10 WBC 6.8 (3.8-10.6) k/uL RBC 4.61 (3.80-5.40) m/uL Hgb 12.7 (11.4-16.0) gm/dL Hct 39.4 (34.0-46.0) % MCV 85.4 (80.0-100.0) fL MCH 27.5 (25.0-35.0) pg MCHC 32.2 (31.0-37.0) g/dL RDW 14.4 (11.5-15.5) % Plt Count 162 (150-450) k/uL Neutrophils % 68 % Lymphocytes % 20 % Monocytes % 7 % Eosinophils % 2 % Basophils % 0 % Neutrophils # 4.7 (1.3-7.7) k/uL Lymphocytes # 1.4 (1.0-4.8) k/uL Monocytes # 0.5 (0-1.0) k/uL Eosinophils # 0.1 (0-0.7) k/uL Basophils # 0.0 (0-0.2) k/uL Sodium 143 (137-145) mmol/L Potassium 4.4 (3.5-5.1) mmol/L Chloride 106 (98-107) mmol/L Carbon Dioxide 26 (22-30) mmol/L Anion Gap 11 mmol/L BUN 25 H (7-17) mg/dL Creatinine 1.76 H (0.52-1.04) mg/dL Est GFR (CKD-EPI)AfAm 32 (>60 ml/min/1.73 sqM) Est GFR (CKD-EPI)NonAf 28 (>60 ml/min/1.73 sqM) Glucose 119 H (74-99) mg/dL Calcium 9.9 (8.4-10.2) mg/dL Urine Opiates Screen Not Detected (NotDetected) Ur Oxycodone Screen Not Detected (NotDetected) Urine Methadone Screen Not Detected (NotDetected) Ur Propoxyphene Screen Not Detected (NotDetected) Ur Barbiturates Screen Not Detected (NotDetected) U Tricyclic Antidepress Detected H (NotDetected) Ur Phencyclidine Scrn Not Detected (NotDetected) Ur Amphetamines Screen Not Detected (NotDetected) U Methamphetamines Scrn Not Detected (NotDetected) U Benzodiazepines Scrn Not Detected (NotDetected) Urine Cocaine Screen Not Detected (NotDetected) U Marijuana (THC) Screen Not Detected (NotDetected) Serum Alcohol <10 mg/dL Disposition <Scooter Chavez - Last Filed: 10/21/18 16:04> Is patient prescribed a controlled substance at d/c from ED?: No Time of Disposition: 18:18 <Juno Phillip - Last Filed: 10/21/18 18:19> Clinical Impression: Depression Disposition: HOME SELF-CARE Condition: Good Instructions (If sedation given, give patient instructions): Depression (ED) Referrals: Jas Quinn MD [Primary Care Provider] - 1-2 days
[2018-10-21 15:33] LABS: Basophils % (A) 0 %; Eosinophils # (A) 0.1 k/uL (0-0.7); Eosinophils % (A) 2 %; HCT 39.4 % (34.0-46.0); HGB 12.7 gm/dL (11.4-16.0); Lymphocytes # (A) 1.4 k/uL (1.0-4.8); Lymphocytes % (A) 20 %; MCH 27.5 pg (25.0-35.0); MCHC 32.2 g/dL (31.0-37.0); MCV 85.4 fL (80.0-100.0); Mean Platelet Volume 7.7; Monocytes # (A) 0.5 k/uL (0-1.0); Monocytes % (A) 7 %; Neutrophils # (A) 4.7 k/uL (1.3-7.7); Neutrophils % (A) 68 %; Platelet Count 162 k/uL (150-450); RBC 4.61 m/uL (3.80-5.40); RDW 14.4 % (11.5-15.5); WBC 6.8 k/uL (3.8-10.6)
[2018-10-21 15:44] LABS: African American GFR (CKD) 32 (>60 ml/min/1.73 sqM); Alcohol <10 mg/dL; Anion Gap 11 mmol/L; Blood Urea Nitrogen 25 mg/dL (7-17); Calcium 9.9 mg/dL (8.4-10.2); Carbon Dioxide 26 mmol/L (22-30); Chloride 106 mmol/L (98-107); Glucose 119 mg/dL (74-99); Non-African American GFR(CKD) 28 (>60 ml/min/1.73 sqM); Potassium 4.4 mmol/L (3.5-5.1); Sodium 143 mmol/L (137-145)
[2018-10-21 17:33] LABS: Amphetamine Screen,Urine Not Detected (NotDetected); Barbiturate Screen,Urine Not Detected (NotDetected); Benzodiazepines Screen,Urine Not Detected (NotDetected); Cocaine Screen,Urine Not Detected (NotDetected); Methadone Screen, Urine Not Detected (NotDetected); Opiate Screen,Urine Not Detected (NotDetected); Oxycodone Screen, Urine Not Detected (NotDetected); Phencyclidine Screen,Urine Not Detected (NotDetected); Tricyclic Antidepressant,Urine Detected (NotDetected); Urn Cannabinoid Scrn Not Detected (NotDetected)
[2018-10-21] MEDS ORDERED: ACETAMINOPHEN TAB 500 MG TAB PO STA (18:37)
[2018-10-21] MEDS ORDERED: hydrALAZINE HCL 20 MG/ML 1 ML VIAL IVP STA (18:37)
[2018-10-21 19:09] LABS: Appearance,Urine Clear (Clear); Bacteria,Urine Rare /hpf; Bilirubin,Urine Negative (Negative); Blood,Urine Negative (Negative); Color,Urine Yellow; Glucose,Urine (UA) Negative (Negative); Hyaline Casts,Urine 8 /lpf (0-2); Ketones,Urine 1+ (Negative); Leukocyte Esterase,Urine Trace (Negative); Mucus,Urine Rare /hpf; Nitrite,Urine Negative (Negative); PH, Urine 5.5 (5.0-8.0); Protein,Urine Trace (Negative); Squamous Epithelial Cell,Urine <1 /hpf (0-4); Urobilinogen,Urine <2.0 mg/dL (<2.0); WBC,Urine 10 /hpf (0-5)
--- NOTE | 2018-10-21 19:15 | CT ---
EXAMINATION: CT brain wo con DATE AND TIME: 10/21/2018 7:00 PM CLINICAL INDICATION: PHH; mental status changes TECHNIQUE: Standard departmental protocol.; 1060.4; COMPARISON: 10/05/2018 FINDINGS: Right posterior craniotomy and right posterior parietal encephalomalacia changes are redemo nstrated. There is no skull fracture or intracranial hemorrhage. There is no intracranial mass or mass effect. No definite new intra-axial or extra-axial attenuation defect. The paranasal sinuses, middle ear cavities, and mastoid sinus air cells are clear. The orbits are unremarkable. IMPRESSION: No definite acute process; stable CT appearance.
[2018-10-21 20:09] VITALS: PULSE 61
[2018-10-21] MEDS ORDERED: cefTRIAXone IN SWFI 1,000 MG/10 ML SYRINGE IVP STA (20:59)
[2018-10-21 21:02] LABS: Glucose,Whole Blood 125 mg/dL (75-99)
[2018-10-21 21:08] VITALS: BP 144/54; RESP 20; TEMP 98.3
--- NOTE | 2018-10-21 21:11 | XR ---
EXAM: XR Chest, 2 Views CLINICAL HISTORY: ITS.REASON XR Reason: possible infiltrate TECHNIQUE: Frontal and lateral views of the chest. COMPARISON: 10/05/18 FINDINGS: Lungs: Unremarkable. No consolidation. Pleural space: Unremarkable. No pneumothorax. Heart: Stable mild cardiomegaly. Mediastinum: Unremarkable. Bones/joints: Stable appearance of the left shoulder, likely related to trauma. Stable left-sided cardiac device with intact leads. IMPRESSION: Stable examination of the chest; no acute findings.
== END 2018-10-21 21:15 | disposition home or self-care (01) ==
LOC: EC 14:39
DX: F32.9 Major depressive disorder, single episode, unspecified (principal); N39.0 Urinary tract infection, site not specified; R05 Cough; I48.0 Paroxysmal atrial fibrillation; J45.909 Unspecified asthma, uncomplicated; I25.10 Atherosclerotic heart disease of native coronary artery without angina pectoris; I13.0 Hypertensive heart and chronic kidney disease with heart failure and stage 1 through stage 4 chronic kidney disease, or unspecified chronic kidney disease; I50.9 Heart failure, unspecified; E11.22 Type 2 diabetes mellitus with diabetic chronic kidney disease; N18.9 Chronic kidney disease, unspecified; Z86.73 Personal history of transient ischemic attack (TIA), and cerebral infarction without residual deficits; Z85.42 Personal history of malignant neoplasm of other parts of uterus; Z85.828 Personal history of other malignant neoplasm of skin; Z86.14 Personal history of Methicillin resistant Staphylococcus aureus infection; Z95.818 Presence of other cardiac implants and grafts; Z95.5 Presence of coronary angioplasty implant and graft; Z95.0 Presence of cardiac pacemaker; Z79.52 Long term (current) use of systemic steroids; Z79.4 Long term (current) use of insulin; Z79.899 Other long term (current) drug therapy; Z91.040 Latex allergy status; Z88.2 Allergy status to sulfonamides
CPT/HCPCS: 82075; 36415; 80048; 85025; 81001; 80306; 71046; 70450; 99284; 96374; 96375; G0480; J0360; J0696; 80320

== ENCOUNTER 2018-10-25 06:20 | Inpatient (IN) | payer MEDICARE ==
[2018-10-25] MEDS ORDERED: ACETAMINOPHEN TAB 500 MG TAB PO STA (06:34)
[2018-10-25] MEDS ORDERED: SODIUM CHLORIDE 0.9% 1,000 ML IV ONE ×2 (06:34)
--- NOTE | 2018-10-25 06:43 | ED ---
Fall HPI - General Chief Complaint: Fall Stated Complaint: Fall Time Seen by Provider: 10/25/18 06:24 Source: EMS, RN notes reviewed, old records reviewed Mode of arrival: EMS - History of Present Illness Initial Comments: Patient is a 73-year-old female with a history of tripping fall this morning. Patient reports she is ambulate with her walker, tripped over a rug her hand c ausing her to fall backwards and hit her head. She is on blood thinners, plavix. states that she hasn't feeling somewhat lightheaded lately. She does report she's had history of a brain tumor which was surgically removed approximately one and half years ago. At this time Patient states that her main complaint is headache. Patient reports that she's had no hip, extremity pains. Patient reports no chest pain or shortness of breath. - Related Data Home Medications Medication Instructions Recorded Confirmed Albuterol Inhaler [Ventolin Hfa 1 - 2 puff INHALATION RT-Q6H PRN 03/27/18 10/25/18 Inhaler] Calcium Carbonate 500 mg PO DAILY 03/27/18 10/25/18 Ferrous Sulfate [Iron (65 MG 325 mg PO DAILY 03/27/18 10/25/18 Elemental)] Furosemide [Lasix] 40 mg PO DAILY 03/27/18 10/25/18 Labetalol [Trandate] 100 mg PO Q12H 03/27/18 10/25/18 Potassium Chloride [Klor-Con 8] 8 meq PO DAILY 03/27/18 10/25/18 prednisoLONE ACETATE [Pred Forte 1 drop LEFT EYE DAILY 06/04/18 10/25/18 1%] Triamcinolone 0.1% Ointment 1 applic TOPICAL BID 06/26/18 10/25/18 [Kenalog 0.1% Ointment] levETIRAcetam [Keppra] 500 mg PO Q12HR 07/21/18 10/25/18 Acetaminophen [Tylenol Extra 500 mg PO Q8HR 09/01/18 10/25/18 Strength] Cyanocobalamin (Vitamin B-12) 1,000 mcg PO DAILY 09/01/18 10/25/18 [Vitamin B-12] Gabapentin [Neurontin] 300 mg PO HS 09/01/18 10/25/18 Insulin Glargine [Lantus] 30 unit SQ HS 09/01/18 10/25/18 Sodium Chloride 5% Ophth Soln 1 drop BOTH EYES MOFR 09/01/18 10/25/18 [Amanda 128] hydrALAZINE HCL [Apresoline] 50 mg PO TID 09/01/18 10/25/18 Desvenlafaxine Succinate [Pristiq 25 mg PO DAILY 10/25/18 10/25/18 ER] Escitalopram [Lexapro] 20 mg PO DAILY 10/25/18 10/25/18 Previous Rx's Medication Instructions Recorded Atorvastatin [Lipitor] 40 mg PO HS #90 tab 06/07/18 Clopidogrel [Plavix] 75 mg PO DAILY #90 tab 06/07/18 Aspirin 81 mg PO DAILY chew 06/11/18 Omeprazole [PriLOSEC] 20 mg PO BID #60 capsule.dr 06/13/18 Isosorbide Mononitrate ER [Imdur] 30 mg PO DAILY #30 tab.er.24h 07/03/18 Nitroglycerin Sl Tabs [Nitrostat] 0.4 mg SUBLINGUAL Q5M PRN tab 07/30/18 QUEtiapine [SEROquel] 100 mg PO HS #30 tab 07/30/18 Allergies Allergy/AdvReac Type Severity Reaction Status Date / Time Latex, Natural Rubber Allergy Itching Verified 10/25/18 08:25 sulfamethoxazole Allergy Rash/Hives Verified 10/25/18 08:25 [From Bactrim] trimethoprim [From Bactrim] Allergy Rash/Hives Verified 10/25/18 08:25 Review of Systems ROS Statement: Those systems with pertinent positive or pertinent negative responses have been documented in the HPI. ROS Other: All systems not noted in ROS Statement are negative. 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 History of Any Multi-Drug Resistant Organisms: MRSA Date of last positivie culture/infection: 06/05/18 MDRO Source:: URINE Past Surgical History: Cholecystectomy, Heart Catheterization, Heart Catheterization With Stent, Hysterectomy, Pacemaker Additional Past Surgical History / Comment(s): Evacuation on intracranial hematoma and ressection of hemorrhagic mass, pacemaker 2016, PCI with stent 06/06/18, EGD/colonoscopy, R eye corneal implant/cataract removal, EGD 06/2018, colonoscopy, skin cancer removal. Past Anesthesia/Blood Transfusion Reactions: No Reported Reaction Additional Past Anesthesia/Blood Transfusion Reaction / Comment(s): no previous blood transfusions Date of Last Stent Placement:: 06/06/18 Type of Cardiac Device: Permanent Pacemaker Device Placement Date:: 04/2016 Past Psychological History: Depression Smoking Status: Never smoker Past Alcohol Use History: None Reported Past Drug Use History: None Reported - Past Family History Mother Family Medical History: Cancer, COPD, Hypertension Additional Family Medical History / Comment(s): Mother had bone cancer. Father Family Medical History: Cancer, Hypertension Additional Family Medical History / Comment(s): Father had skin cancer. General Exam - General Exam Comments Initial Comments: This is a 73-year-old female. Alert and oriented 3. Patient is resting in bed with c-collar in. Patient appears in no acute distress at this time. Limitations: physical limitation General appearance: alert, in no apparent distress Head exam: Present: atraumatic, normocephalic, normal inspection, other (tenderness over occipital scalp, 4cm posterior laceration) Eye exam: Present: normal appearance, PERRL, EOMI. Absent: scleral icterus, conjunctival injection, periorbital swelling ENT exam: Present: normal exam, mucous membranes moist Neck exam: Present: normal inspection. Absent: tenderness, meningismus, lymphadenopathy Respiratory exam: Present: normal lung sounds bilaterally. Absent: respiratory distress, wheezes, rales, rhonchi, stridor Cardiovascular Exam: Present: regular rate, normal rhythm, normal heart sounds. Absent: systolic murmur, diastolic murmur, rubs, gallop, clicks GI/Abdominal exam: Present: soft Extremities exam: Present: normal inspection, full ROM, normal capillary refill. Absent: tenderness, pedal edema, joint swelling, calf tenderness Back exam: Present: normal inspection Neurological exam: Present: alert, oriented X3, CN II-XII intact Expanded Patient oriented to: Present: person, place, time Speech: Present: fluid speech Cranial nerves: EOM's Intact: Normal, Facial Sensation: Normal Cerebellar function: Finger to Nose: Normal Upper motor neuron: Pronator Drift: Normal Sensory exam: Upper Extremity Light Touch: Normal, Lower Extremity Light Touch: Normal Motor strength exam: RUE: 5, LUE: 5, RLE: 5, LLE: 5 Eye Response: (4) open spontaneously Motor Response: (6) obeys commands Verbal Response: (5) oriented [place] Total: 15 Psychiatric exam: Present: normal affect, normal mood Skin exam: Present: warm, dry, intact, normal color. Absent: rash Course Vital Signs 10/25/18 10/25/18 10/25/18 06:20 06:56 07:12 Temperature 98.0 F Pulse Rate 62 60 60 Respiratory 18 18 17 Rate Blood Pressure 189/77 171/66 178/74 O2 Sat by Pulse 94 L 95 93 L Oximetry Procedures - Laceration Laceration #1 Size (cm): 4 Description: linear Depth: simple, single layer Pre-repair: wound explored, irrigated extensively Type of Sutures: other (staple) Number of Sutures: 5 Patient Tolerated Procedure: well Medical Decision Making - Medical Decision Making 73-year-old female presents today for evaluation after fall, with posterior head injury. She is on blood thinners. Patient has no neurological deficits. She does have a 4 cm laceration of the posterior scalp. This was thoroughly cleaned and closed with 5 cristiano. Given updated tetanus. On arrival Patient did have some EKG changes. This is significant from her last EKG earlier this month. Patient has had general lightheadedness and weakness. Multiple falls in the past month. Patient was admitted a month for falls and weakness. At this time family is present as there work and one is a dialysis. Patient does have some concern for these frequent falls management the Patient for observation. Patient is agreeable. - Lab Data Result diagrams: 10/25/18 06:45 10/25/18 06:45 Lab Results 10/25/18 10/25/18 10/25/18 Range/Units 06:45 06:45 06:45 WBC 6.4 (3.8-10.6) k/uL RBC 4.84 (3.80-5.40) m/uL Hgb 13.3 (11.4-16.0) gm/dL Hct 41.8 (34.0-46.0) % MCV 86.5 (80.0-100.0) fL MCH 27.5 (25.0-35.0) pg MCHC 31.9 (31.0-37.0) g/dL RDW 15.3 (11.5-15.5) % Plt Count 157 (150-450) k/uL Neutrophils % 66 % Lymphocytes % 22 % Monocytes % 7 % Eosinophils % 3 % Basophils % 1 % Neutrophils # 4.2 (1.3-7.7) k/uL Lymphocytes # 1.4 (1.0-4.8) k/uL Monocytes # 0.4 (0-1.0) k/uL Eosinophils # 0.2 (0-0.7) k/uL Basophils # 0.1 (0-0.2) k/uL PT 10.7 (9.0-12.0) sec INR 1.0 (<1.2) APTT 23.2 (22.0-30.0) sec Sodium 144 (137-145) mmol/L Potassium 4.4 (3.5-5.1) mmol/L Chloride 107 (98-107) mmol/L Carbon Dioxide 26 (22-30) mmol/L Anion Gap 11 mmol/L BUN 24 H (7-17) mg/dL Creatinine 1.57 H (0.52-1.04) mg/dL Est GFR (CKD-EPI)AfAm 37 (>60 ml/min/1.73 sqM) Est GFR (CKD-EPI)NonAf 32 (>60 ml/min/1.73 sqM) Glucose 163 H (74-99) mg/dL Calcium 9.4 (8.4-10.2) mg/dL Total Bilirubin 0.7 (0.2-1.3) mg/dL AST 17 (14-36) U/L ALT 21 (9-52) U/L Alkaline Phosphatase 80 (38-126) U/L Troponin I (0.000-0.034) ng/mL Total Protein 6.8 (6.3-8.2) g/dL Albumin 4.4 (3.5-5.0) g/dL Urine Color Urine Appearance (Clear) Urine pH (5.0-8.0) Ur Specific Harvey (1.001-1.035) Urine Protein (Negative) Urine Glucose (UA) (Negative) Urine Ketones (Negative) Urine Blood (Negative) Urine Nitrite (Negative) Urine Bilirubin (Negative) Urine Urobilinogen (<2.0) mg/dL Ur Leukocyte Esterase (Negative) Urine RBC (0-5) /hpf Urine WBC (0-5) /hpf Urine Mucus (None) /hpf 10/25/18 10/25/18 Range/Units 06:45 08:11 WBC (3.8-10.6) k/uL RBC (3.80-5.40) m/uL Hgb (11.4-16.0) gm/dL Hct (34.0-46.0) % MCV (80.0-100.0) fL MCH (25.0-35.0) pg MCHC (31.0-37.0) g/dL RDW (11.5-15.5) % Plt Count (150-450) k/uL Neutrophils % % Lymphocytes % % Monocytes % % Eosinophils % % Basophils % % Neutrophils # (1.3-7.7) k/uL Lymphocytes # (1.0-4.8) k/uL Monocytes # (0-1.0) k/uL Eosinophils # (0-0.7) k/uL Basophils # (0-0.2) k/uL PT (9.0-12.0) sec INR (<1.2) APTT (22.0-30.0) sec Sodium (137-145) mmol/L Potassium (3.5-5.1) mmol/L Chloride (98-107) mmol/L Carbon Dioxide (22-30) mmol/L Anion Gap mmol/L BUN (7-17) mg/dL Creatinine (0.52-1.04) mg/dL Est GFR (CKD-EPI)AfAm (>60 ml/min/1.73 sqM) Est GFR (CKD-EPI)NonAf (>60 ml/min/1.73 sqM) Glucose (74-99) mg/dL Calcium (8.4-10.2) mg/dL Total Bilirubin (0.2-1.3) mg/dL AST (14-36) U/L ALT (9-52) U/L Alkaline Phosphatase (38-126) U/L Troponin I 0.016 (0.000-0.034) ng/mL Total Protein (6.3-8.2) g/dL Albumin (3.5-5.0) g/dL Urine Color Yellow Urine Appearance Clear (Clear) Urine pH 5.5 (5.0-8.0) Ur Specific Harvey 1.023 (1.001-1.035) Urine Protein 1+ H (Negative) Urine Glucose (UA) Negative (Negative) Urine Ketones Negative (Negative) Urine Blood Negative (Negative) Urine Nitrite Negative (Negative) Urine Bilirubin Negative (Negative) Urine Urobilinogen <2.0 (<2.0) mg/dL Ur Leukocyte Esterase Negative (Negative) Urine RBC 1 (0-5) /hpf Urine WBC 1 (0-5) /hpf Urine Mucus Rare H (None) /hpf 10/25/18 06:42 EKG shows atrial paced rhythm with prolonged AV conduction. ST and marked T wave abnormality consider anterolateral ischemia. Prolonged QT. Ventricular rate of 60 bpm. Intervals were 05/06/2023 milliseconds. QS duration is 100 ms. QT QTc is 522 ms. - Radiology Data Radiology results: report reviewed Mode right parietal occipital infarct. Chronic appearing white matter ischemic changes. No acute intracranial abnormality. Degenerative changes of the cervical spine with loss of disc at C5-C6 and C6-C7 with mild to moderate foraminal narrowing present at C5-C6. No acute osseous abnormality evident. Disposition Clinical Impression: Fall, Scalp laceration, Generalized weakness, EKG abnormality Disposition: ADMITTED IP TO THIS [facility] Condition: Stable Is patient prescribed a controlled substance at d/c from ED?: No Referrals: Jas Quinn MD [Primary Care Provider] - 1-2 days Time of Disposition: 09:27
[2018-10-25 06:57] LABS: Basophils # (A) 0.1 k/uL (0-0.2); Basophils % (A) 1 %; Eosinophils # (A) 0.2 k/uL (0-0.7); Eosinophils % (A) 3 %; HCT 41.8 % (34.0-46.0); HGB 13.3 gm/dL (11.4-16.0); Lymphocytes # (A) 1.4 k/uL (1.0-4.8); Lymphocytes % (A) 22 %; MCH 27.5 pg (25.0-35.0); MCHC 31.9 g/dL (31.0-37.0); MCV 86.5 fL (80.0-100.0); Mean Platelet Volume 7.3; Monocytes # (A) 0.4 k/uL (0-1.0); Monocytes % (A) 7 %; Neutrophils # (A) 4.2 k/uL (1.3-7.7); Neutrophils % (A) 66 %; Platelet Count 157 k/uL (150-450); RBC 4.84 m/uL (3.80-5.40); RDW 15.3 % (11.5-15.5); WBC 6.4 k/uL (3.8-10.6)
[2018-10-25] MEDS ORDERED: DIPH,PERTUS(ACELL)TETVAC-LF 0.5 ML VIAL IM ONE (07:05)
[2018-10-25 07:12] LABS: Partial Thromboplastin Time 23.2 sec (22.0-30.0); Prothrombin Time 10.7 sec (9.0-12.0)
[2018-10-25 07:15] LABS: Albumin 4.4 g/dL (3.5-5.0); Calcium 9.4 mg/dL (8.4-10.2); Potassium 4.4 mmol/L (3.5-5.1); Total Bilirubin 0.7 mg/dL (0.2-1.3); Total Protein 6.8 g/dL (6.3-8.2)
--- NOTE | 2018-10-25 07:16 | CT ---
EXAMINATION TYPE: CT brain gabriel orozco con DATE OF EXAM: 10/25/2018 COMPARISON: 10/21/2018 HISTORY: Frequent fall, fall again this AM CT DLP: 1453.1 mGycm, Automated exposure control for dose reduction was used. CONTRAST: None CT of the brain is performed utilizing 3 mm thick sections through the posterior fossa and 3 mm thick sections through the remaining calvarium. Study is performed within 24 hours of arrival to the hospital. No abnormal hyperdensity is present to suggest an acute intracranial hemorrhage. No mass lesion is evident. No acute infarcts are evident. There is an old right parietal occipital infarct. Craniotomy defect i s in the right occipital region. Appearing Periventricular white matter changes are present Ventricles and sulci are appropriate for the patient age. There is ex vacuo effect on the right late ral ventricle. Paranasal sinuses and mastoid air cells within the [id number] are clear. IMPRESSIONS: 1. 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 2. Chronic appearing white matter ischemic changes. 3. No acute intracranial abnormality. CT cervical spine. COMPARISON: None CT of the cervical spine is performed in the axial plane at 2 mm thick sections. Reconstructed image s in the coronal, and sagittal plane are reviewed on the computer. No acute fractures are evident. Vertebral body alignment is normal. Vertebral body heights are preserved. No spinal canal stenosis is evident. Mild right foraminal narrowing is present at C3-4 from uncovertebral joint hypertrophy. Uncovertebral joint hypertrophy and loss of disc height is noted C5-6 with moderate bilateral foraminal narrowing. Disc space narrowing is noted at C6-7. IMPRESSIONS: 1. Degenerative changes within the cervical spine with loss of disc height C5-6 and C6-7 some mild to moderate foraminal narrowing greatest at C5-6. 2. No acute osseous abnormality evident
--- NOTE | 2018-10-25 08:25 | XR ---
EXAMINATION TYPE: XR chest 2V DATE OF EXAM: 10/25/2018 COMPARISON: 10/21/2018 INDICATION: Pain, fall TECHNIQUE: Frontal and lateral views of the chest are obtained. FINDINGS: The heart size is normal. The pulmonary vasculature is normal. No pneumothorax is evident. The lungs are clear. Electronic device overlies left chest. Advanced degenerative changes are at the left shoulder. There are advanced degenerative changes of the right shoulder. IMPRESSION: 1. No acute pulmonary process.
[2018-10-25 08:55] LABS: Appearance,Urine Clear (Clear); Bilirubin,Urine Negative (Negative); Blood,Urine Negative (Negative); Color,Urine Yellow; Glucose,Urine (UA) Negative (Negative); Ketones,Urine Negative (Negative); Leukocyte Esterase,Urine Negative (Negative); Mucus,Urine Rare /hpf; Nitrite,Urine Negative (Negative); PH, Urine 5.5 (5.0-8.0); Protein,Urine 1+ (Negative); RBC,Urine 1 /hpf (0-5); Specific Gravity,Urine 1.023 (1.001-1.035); Urobilinogen,Urine <2.0 mg/dL (<2.0); WBC,Urine 1 /hpf (0-5)
[2018-10-25] MEDS ORDERED: ACETAMINOPHEN TAB 325 MG TAB PO PRN (09:29)
[2018-10-25] MEDS ORDERED: IBUPROFEN 400 MG TAB PO PRN (09:29)
[2018-10-25] MEDS ORDERED: MORPHINE SULFATE 4 MG/ML SYRINGE IV PRN (09:29)
[2018-10-25] MEDS ORDERED: Acetaminophen-Codeine 300-30mg TAB PO PRN (09:29)
[2018-10-25] MEDS ORDERED: NALOXONE 0.4 MG/ML 1 ML VIAL IV PRN ×2 (09:29→13:28)
[2018-10-25] MEDS ORDERED: LORazepam 2 MG/ML INJ IV PRN (09:29)
[2018-10-25] MEDS ORDERED: ONDANSETRON 4 MG/2 ML VIAL IVP PRN (09:29)
[2018-10-25 12:07] LABS: Glucose,Whole Blood 116 mg/dL (75-99)
[2018-10-25] MEDS ORDERED: NITROGLYCERIN SL TABS 0.4 MG TAB SUBLINGUAL PRN (13:23)
[2018-10-25] MEDS ORDERED: NON-FORMULARY DRUG (Omeprazole 20 MG) PO SCH (13:30)
[2018-10-25] MEDS ORDERED: POTASSIUM CHLORIDE 8 MEQ PO SCH (13:30)
--- NOTE | 2018-10-25 13:55 | P.HPIM ---
History of Present Illness H&P Date: 10/25/18 Chief Complaint: fall Patient is a 73-year-old female with a past medical history of diabetes mellitus type 2 insulin requiring, hypertension, arthritis, prior brain mass with craniotomy noncancerous, A. fib, sick sinus syndrome with pacemaker, congestive heart failure, and coronary artery disease and into the emergency department after a fall. Apparently she was walking to go to the bathroom and tripped on a fan. She was unable to get herself up and EMS was called. On arrival to the emergency department she was found to be hypertensive with a blood pressure of 189/77. Initial laboratory analysis was consistent with her chronic kidney disease is otherwise unremarkable. Head CT showed old right occipital fracture, no acute intracranial abnormality, and chronic white matter ischemic changes. There is concern about her returning home due to possible a bnormal EKG and her recent fall. She did require 5 cristiano for posterior scalp. She was admitted as observation. Of note patient was recently admitted here on 10/06. She had complaints of chest pain. She was seen by cardiology. She underwent echocardiogram which showed a preserved ejection fraction of 50-55%, there was no signs of hypokinesis. She also had completed a stress echo in July 2018 which showed no signs of ischemia. There are some reports of abnormal EKG in the emergency department, however EKG was reviewed by me and is identical to one taken on 10/06/18. It is consistent with an atrial paced rhythm. Patient seen and examined at bedside. She states she has been doing well and has been walking more often. She has a home health care with both nursing and physical therapy. She reports that she has not had any falls over the last 6 months until today. She was getting up to go to the bathroom and tripped over a fan in the room by her window. She was unable to get herself up off the floor and therefore EMS was called and she was brought to the hospital. She denies any preceding chest pain, lightheadedness, dizziness, presyncope, or shortness of breath. She's been doing fairly well recently. She denies any recent infections such as cough, cold, fever, flu, diarrhea, constipation, or dysuria. She isn't taking her medications regularly. She reports that her, her son, and her [id number] continued all live together. There has been some recent stressful argument with her daughter and she was seen in the emergency department on 10/21 where she saw EPS was determined okay for discharge home. She reports that she continues to hear a slight "hiss" in her ears, and she continues to sense smells that are not there. She is still having some depression, she reports that sometimes she thinks it would be easier she wasn't here, but she is not actively suicidal and would not harm herself. She is otherwise been taking all of her medications and following up as required with physicians. She denies any headache, blurry vision, loss of vision, or nausea since the fall. Review of Systems Pertinent positives and negatives as discussed in HPI, a complete review of systems was performed and all other systems are negative. Past Medical History Past Medical History: Atrial Fibrillation, Asthma, Coronary Artery Disease (CAD), Cancer, Heart Failure, CVA/TIA, Diabetes Mellitus, Hypertension, Osteoarthritis (OA), Renal Disease Additional Past Medical History / Comment(s): Paroxysmal Afib not on anticoagulation due to prior brain bleed, brain mass with intracranial bleed/hematoma with surgery at [facility], seizure after brain surgery, ast hma, IDDM type II, recent lower GI bleed/gastritis,gastric erosion, SSS with pacer, uterine cancer with surgery, skin cancer removals, C diff colitis, colitis, chronic kidney disease, past L arm fracture. Right arm fracture 2 History of Any Multi-Drug Resistant Organisms: MRSA Date of last positivie culture/infection: 06/05/18 MDRO Source:: URINE Past Surgical History: Cholecystectomy, Heart Catheterization, Heart Catheterization With Stent, Hysterectomy, Pacemaker Additional Past Surgical History / Comment(s): Evacuation on intracranial hematoma and ressection of hemorrhagic mass, pacemaker 2016, PCI with stent 06/06/18, EGD/colonoscopy, R eye corneal implant/cataract removal, EGD 06/2018, colonoscopy, skin cancer removal. Past Anesthesia/Blood Transfusion Reactions: No Reported Reaction Additional Past Anesthesia/Blood Transfusion Reaction / Comment(s): . Date of Last Stent Placement:: 06/06/18 Type of Cardiac Device: Permanent Pacemaker Device Placement Date:: 04/2016 Smoking Status: Never smoker Additional History: This with her son and [id number]. Using a walker mostly. - Past Family History Mother Family Medical History: Cancer, COPD, Hypertension Additional Family Medical History / Comment(s): Mother had bone cancer. Father Family Medical History: Cancer, Hypertension Additional Family Medical History / Comment(s): Father had skin cancer. Medications and Allergies Home Medications Medication Instructions Recorded Confirmed Type Albuterol Inhaler [Ventolin Hfa 1 - 2 puff INHALATION RT-Q6H PRN 03/27/18 10/25/18 History Inhaler] Calcium Carbonate 500 mg PO DAILY 03/27/18 10/25/18 History Ferrous Sulfate [Iron (65 MG 325 mg PO DAILY 03/27/18 10/25/18 History Elemental)] Furosemide [Lasix] 40 mg PO DAILY 03/27/18 10/25/18 History Labetalol [Trandate] 100 mg PO Q12H 03/27/18 10/25/18 History Potassium Chloride [Klor-Con 8] 8 meq PO DAILY 03/27/18 10/25/18 History prednisoLONE ACETATE [Pred Forte 1 drop LEFT EYE DAILY 06/04/18 10/25/18 History 1%] Atorvastatin [Lipitor] 40 mg PO HS #90 tab 06/07/18 10/25/18 Rx Clopidogrel [Plavix] 75 mg PO DAILY #90 tab 06/07/18 10/25/18 Rx Aspirin 81 mg PO DAILY chew 06/11/18 10/25/18 Rx Omeprazole [PriLOSEC] 20 mg PO BID #60 capsule.dr 06/13/18 10/25/18 Rx Triamcinolone 0.1% Ointment 1 applic TOPICAL BID 06/26/18 10/25/18 History [Kenalog 0.1% Ointment] Isosorbide Mononitrate ER [Imdur] 30 mg PO DAILY #30 tab.er.24h 07/03/18 10/25/18 Rx levETIRAcetam [Keppra] 500 mg PO Q12HR 07/21/18 10/25/18 History Nitroglycerin Sl Tabs [Nitrostat] 0.4 mg SUBLINGUAL Q5M PRN tab 07/30/18 Rx QUEtiapine [SEROquel] 100 mg PO HS #30 tab 07/30/18 10/25/18 Rx Acetaminophen [Tylenol Extra 500 mg PO Q8HR 09/01/18 10/25/18 History Strength] Cyanocobalamin (Vitamin B-12) 1,000 mcg PO DAILY 09/01/18 10/25/18 History [Vitamin B-12] Gabapentin [Neurontin] 300 mg PO HS 09/01/18 10/25/18 History Insulin Glargine [Lantus] 30 unit SQ HS 09/01/18 10/25/18 History Sodium Chloride 5% Ophth Soln 1 drop BOTH EYES MOFR 09/01/18 10/25/18 History [Amanda 128] hydrALAZINE HCL [Apresoline] 50 mg PO TID 09/01/18 10/25/18 History Desvenlafaxine Succinate [Pristiq 25 mg PO DAILY 10/25/18 10/25/18 History ER] Escitalopram [Lexapro] 20 mg PO DAILY 10/25/18 10/25/18 History Allergies Allergy/AdvReac Type Severity Reaction Status Date / Time Latex, Natural Rubber Allergy Itching Verified 10/25/18 08:25 sulfamethoxazole Allergy Rash/Hives Verified 10/25/18 08:25 [From Bactrim] trimethoprim [From Bactrim] Allergy Rash/Hives Verified 10/25/18 08:25 Physical Exam Osteopathic Statement: *. No significant issues noted on an osteopathic structural exam other than those noted in the History and Physical/Consult. Vitals: Vital Signs Temp Pulse Pulse Pulse Resp BP BP 10/25/18 12:00 57 L 16 L 16 183/80 10/25/18 11:03 96.5 F L 60 16 190/98 10/25/18 09:55 97.9 F 60 18 103/63 10/25/18 07:12 60 17 178/74 10/25/18 06:56 60 18 171/66 10/25/18 06:20 98.0 F 62 18 189/77 Pulse Ox 10/25/18 12:00 99 10/25/18 11:03 96 10/25/18 09:55 98 10/25/18 07:12 93 L 10/25/18 06:56 95 10/25/18 06:20 94 L Intake and Output 10/24/18 10/25/18 10/25/18 22:59 06:59 14:59 Other: Weight 85.729 kg General: non toxic, no distress, appears at stated age, normal weight, slightly disabled Derm: Laceration with [address] on posterior scalp, no active bleeding, no unusual rashes/lesions multiple areas of ecchymoses, warm, dry Head: atraumatic, normocephalic, symmetric Eyes: EOMI, no lid lag, anicteric sclera, pupils equal round reactive to light ENT: Nose and ears atraumatic, no thrush, no pharyngeal erythema Neck: No thyromegaly, no cervical lymphadenopathy, trachea midline, supple Mouth: no lip lesion, mucus membranes moist Cardiovascular: S1S2 reg, no murmur, positive posterior tibial pulse bilateral, no edema, capillary refill less than 2 seconds Lungs: CTA bilateral, no rhonchi, no rales , no accessory muscle use Abdominal: soft, nontender to palpation, no guarding, no appreciable organomegaly, normal bowel sounds Ext: no gross muscle atrophy, muscle strength 5 out of 5 in all 4 extremities grossly, no contractures, Neuro: CN II-XI grossly intact, light touch intact all 4 extremities, finger to nose poor Psych: Alert, oriented, appropriate affect Results CBC & Chem 7: 10/25/18 06:45 10/25/18 06:45 Labs: Abnormal Lab Results - Last 24 Hours (Table) 10/25/18 10/25/18 10/25/18 Range/Units 06:45 08:11 12:01 BUN 24 H (7-17) mg/dL Creatinine 1.57 H (0.52-1.04) mg/dL Glucose 163 H (74-99) mg/dL POC Glucose (mg/dL) 116 H (75-99) mg/dL Urine Protein 1+ H (Negative) Urine Mucus Rare H (None) /hpf CT Scan - head: report reviewed Thrombosis Risk Factor Assmnt - DVT/VTE Prophylaxis DVT/VTE Prophylaxis: Low risk, early ambulation encouraged - Choose All That Apply Each Risk Factor Represents 2 Points: Age 61-74 years Thrombosis Risk Factor Assessment Total Risk Factor Score: 2 Thrombosis Risk Factor Assessment Level: Low Risk Assessment and Plan Assessment: Posterior scalp laceration secondary to fall with concerns for development of concussion -Neuro checks every 4 hours -PT/OT evaluation -Fall precautions -Check orthostatic vitals -Would not repeat the echocardiogram at this time she has had one within the last month -Patient does not report any history of syncope -Hold aspirin today, also on Plavix and will not stop secondary to recent stent Hypertension, urgency on arrival -Resume home medications -Follow blood pressures -When necessary Catapres if necessary will be ordered Diabetes mellitus type 2, insulin requiring -Continue with long-acting insulin 25 units at night, sliding scale insulin, hemoglobin A1c 6.3 approximately 4 months ago. Patient states she has had this followed with Dr. Leon. Chronic kidney disease stage III -Creatinine at baseline -Avoid additional nephrotoxic medications -Continue outpatient follow-up Sick sinus syndrome status post permanent pacemaker implantation -Telemetry Diastolic congestive heart failure, chronic, at baseline -Continue home Lasix, continue with labetalol -Not chronically an EMILEE inhibitor and we'll not start with history of chronic kidney disease Atherosclerotic coronary artery disease -Resume aspirin in a.m., Plavix, Imdur, statin Obesity with BMI 32.4 -Structured outpatient weight loss Chronic: Seizure disorder, asthma, colitis, prior uterine cancer The patient is placed in observation with an anticipated less than 2 per night stay for evaluation of wall, possible concussion. Surrogate decision-maker: Has a durable power of healthcare corporate attorney which appoints her son Main Montes, but she states she would like her best friend Erna Mtz notified CODE STATUS:full DVT prophylaxis: SCDs Discussed with: patient, nursing Anticipated discharge date: 1-[address]: home A total of 65 minutes was spent on the care of this complex patient more than 50% of the time was spent in counseling and care coordination.
[2018-10-25] MEDS ORDERED: hydrALAZINE HCL 50 MG TAB PO SCH (14:00)
[2018-10-25] MEDS: FERROUS SULFATE 325 MG TAB PO SCH (15:54)
[2018-10-25] MEDS: ISOSORBIDE MONONITRATE ER 30 MG TAB.ER.24H PO SCH (15:54)
[2018-10-25] MEDS: levETIRAcetam 500 MG TAB PO SCH ×2 (15:55→21:34)
[2018-10-25] MEDS: ESCITALOPRAM 20 MG TAB PO SCH (15:55)
[2018-10-25] MEDS: FUROSEMIDE 40 MG TAB PO SCH (15:55)
[2018-10-25] MEDS: ACETAMINOPHEN TAB 500 MG TAB PO SCH (16:00)
[2018-10-25] MEDS: prednisoLONE ACETATE 1% OPHTH DROPS 5 ML BTL LEFT EYE SCH (17:06)
[2018-10-25] MEDS: NON-FORMULARY DRUG (Desvenlafaxine Succinate [Pristiq] 25 MG) PO SCH (17:20)
[2018-10-25] MEDS: INSULIN ASPART (NovoLOG) 100 UNIT/ML VIAL SQ SCH ×2 (17:21→21:25)
[2018-10-25 17:28] LABS: Glucose,Whole Blood 112 mg/dL (75-99)
[2018-10-25] MEDS ORDERED: cloNIDine HCL 0.1 MG TAB PO PRN (17:54)
[2018-10-25] MEDS: SODIUM CHLORIDE 0.9% 1,000 ML IV SCH (19:57)
[2018-10-25] MEDS: ATORVASTATIN 40 MG TAB PO SCH (20:36)
[2018-10-25] MEDS: hydrALAZINE HCL 50 MG TAB PO SCH (20:36)
[2018-10-25] MEDS: GABAPENTIN 300 MG CAP PO SCH (20:37)
[2018-10-25] MEDS: LABETALOL 100 MG TAB PO SCH (20:37)
[2018-10-25] MEDS: TRIAMCINOLONE ACET 0.1% OINTMENT 15 GM TUBE TOPICAL SCH (20:37)
[2018-10-25] MEDS: QUEtiapine 100 MG TAB PO SCH (20:37)
[2018-10-25] MEDS: ALBUTEROL NEBULIZED 2.5 MG/3 ML INHALATION PRN (20:52)
[2018-10-25 21:25] LABS: Glucose,Whole Blood 139 mg/dL (75-99)
[2018-10-25] MEDS: INSULIN DETEMIR (LEVEMIR) 100 UNIT/ML SYR SQ SCH (21:34)
[2018-10-26] MEDS: ACETAMINOPHEN TAB 500 MG TAB PO SCH ×4 (01:11→22:38)
[2018-10-26 06:36] LABS: Glucose,Whole Blood 163 mg/dL (75-99)
[2018-10-26] MEDS: INSULIN ASPART (NovoLOG) 100 UNIT/ML VIAL SQ SCH ×4 (06:36→20:44)
[2018-10-26] MEDS: ALBUTEROL NEBULIZED 2.5 MG/3 ML INHALATION PRN ×2 (08:54→13:03)
[2018-10-26] MEDS: ASPIRIN 81 MG PO SCH (09:44)
[2018-10-26] MEDS: CALCIUM CARBONATE 500 MG CHEWABLE PO SCH (09:44)
[2018-10-26] MEDS: CYANOCOBALAMIN 500 MCG TAB PO SCH (09:45)
[2018-10-26] MEDS: CLOPIDOGREL 75 MG TAB PO SCH (09:45)
[2018-10-26] MEDS: NON-FORMULARY DRUG (Desvenlafaxine Succinate [Pristiq] 25 MG) PO SCH (09:45)
[2018-10-26] MEDS: ESCITALOPRAM 20 MG TAB PO SCH (09:46)
[2018-10-26] MEDS: FUROSEMIDE 40 MG TAB PO SCH (09:46)
[2018-10-26] MEDS: FERROUS SULFATE 325 MG TAB PO SCH (09:46)
[2018-10-26] MEDS: ISOSORBIDE MONONITRATE ER 30 MG TAB.ER.24H PO SCH (09:47)
[2018-10-26] MEDS: hydrALAZINE HCL 50 MG TAB PO SCH ×3 (09:47→20:12)
[2018-10-26] MEDS: levETIRAcetam 500 MG TAB PO SCH ×2 (09:47→20:11)
[2018-10-26] MEDS: prednisoLONE ACETATE 1% OPHTH DROPS 5 ML BTL LEFT EYE SCH (09:49)
[2018-10-26] MEDS: TRIAMCINOLONE ACET 0.1% OINTMENT 15 GM TUBE TOPICAL SCH ×2 (09:50→20:12)
[2018-10-26] MEDS: LABETALOL 100 MG TAB PO SCH ×2 (11:18→20:11)
[2018-10-26] MEDS: PANTOPRAZOLE 40 MG/10 ML VIAL IV SCH (11:19)
[2018-10-26] MEDS: SODIUM CHLORIDE 0.9% 1,000 ML IV SCH (11:23)
[2018-10-26 12:31] LABS: Glucose,Whole Blood 102 mg/dL (75-99)
[2018-10-26] MEDS ORDERED: SODIUM CHLORIDE 0.9% 500 ML 500 ML IV ONE (13:06)
--- NOTE | 2018-10-26 14:12 | P.CN ---
Psychiatric Consult - . Consult date: 10/26/18 Consult:: 10/26/18 13:42 IDENTIFYING DATA: This patient is a 73-year-old female with a chronic history of depression and a brain mass status post craniotomy, who lives with her son and [id number] in a house. HISTORY OF PRESENT ILLNESS: The patient was brought into the emergency Department after sustaining a fall at home claiming that she tripped on not fanned in the house. Patient claims that she has been having ongoing chronic stressors at home with her [id number] and her son and states that they will not move out of the house. She states that her depression has been chronic and it has not changed. She states her mood currently is a "6 out of 10" claims to have some mild anxiety especially at night. She states that she has been having difficulties adjusting to walking in the house. Patient asked leader writer several times if he smelled anything in the hospital as she was concerned of what the smell was. 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 She also claims that sometimes at night she feels that she gets scared and does not know why. Patient claims that she needs more support at home. She claims that she sleeps well at night and has a fair energy level. At this time patient denies any suicidal or homical ideations, intent or plan. Patient denies any auditory, visual hallucinations and denies any paranoia or delusions. Patient states that she had ongoing thoughts of passive suicidal ideations where she claims "sometimes I wish I just wasn't here" however states that she would never kill herself and never had a plan or an attempt and does not have any means. PAST PSYCHIATRIC HISTORY: Patient was previously admitted on the [facility] for major depressive disorder with psychotic features in 07/2018 and was discharged home on Lexapro 10 mg daily and Seroquel 100 mg daily at bedtime. Patient does not follow up with a outpatient psychiatrist. PAST MEDICAL HISTORY: Diabetes mellitus, hypertension, osteoarthritis, brain mass status post craniotomy, CHF, CAD. ALLERGIES: As per EMR. CHEMICAL DEPENDENCY HISTORY: Denies any substance use at this time.. 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 Currently she lives at home with her daughter in law and son. MENTAL STATUS EXAM: General Appearance: Patient appears to be stated age, is alert pleasant and cooperative. Patient is in no acute distress Behavior: Patient is calmly lying in bed without any agitated behavior. Speech: Patient's speech is fluent and nonpressured. Mood/Affect: Patient reports their mood is "okay", affect is congruent Suicidality/Homicidality: Patient denies having any suicidal or homicidal ideation intent or plan. Claimed to have passive SI with no intent or plan in the past. No access to weapons or history of suicide attempt. Perceptions: Patient denies any auditory or visual hallucinations. Though content/process: There is no evidence of any delusional thought content and thought process is linear and goal-directed. He does endorse olfactory hallucinations Memory and concentration: AOX3, grossly intact for the purposes of this session. Judgment and insight: fair IMPRESSIONS: Depressive disorder unspecified PLAN: -At this time patient patient does NOT meet criteria for inpatient psychiatric admission. -Would recommend the following medication changes/additions: Continue with current medications Lexapro 20 mg daily for mood and anxiety, can discontinue Pristiq as there is no indication for an SSRI and an SNRI. Continue with Seroquel daily at bedtime for sleep and mood stabilization. -Patient's olfactory/visual hallucinations appear to be chronic and most likely related to brain mass resection in previous craniotomy. -Patient will require a safe disposition with home health care or other services as patient is higher risk for rehospitalization. Patient requires a home evaluation consider OT and PT. -Psychiatry will sign off at this point Thank you for the consult 10/26/18 13:52 10/26/18 13:53 10/26/18 14:04
--- NOTE | 2018-10-26 15:46 | P.PN ---
Subjective Progress Note Date: 10/26/18 (delayed charting patient seen at 1000) Principal diagnosis: fall Patient is a 73-year-old female with a past medical history of diabetes mellitus type 2 insulin requiring, hypertension, arthritis, prior brain mass with craniotomy noncancerous, A. fib, sick sinus syndrome with pacemaker, congestive heart failure, and coronary artery disease and into the emergency department after a fall. Apparently she was walking to go to the bathroom and tripped on a fan. She was unable to get herself up and EMS was called. On arrival to the emergency department she was found to be hypertensive with a blood pressure of 189/77. Initial laboratory analysis was consistent with her chronic kidney disease is otherwise unremarkable. Head CT showed old right occipital fracture, no acute intracranial abnormality, and chronic white matter ischemic changes. There is concern about her returning home due to possible abnormal EKG and her recent fall. She did require 5 cristiano for posterior scalp. She was admitted as observation. Her EKG was reviewed and is consistent with her prior on 10/06/18 adn being atrial paced. She expressed some concerns about her depression and wishes sometimes she wasn't here. Psych consult was placed and her pristiq was discontinued. Initially it was though that she does not see a psychaitrist however it appears she follows in [place]. She was noted to have significant ortho static hypotension and IVF were started. Patient seen and examined at beside. Slight nausea and headache today, no chest pain, denies being light headed, no shortness of breath no diarrhea. Objective - Vital Signs Vital signs: Vital Signs Temp 97.9 F 10/26/18 09:25 Pulse 72 10/26/18 13:13 Resp 18 10/26/18 09:25 BP 168/76 10/26/18 09:25 Pulse Ox 97 10/26/18 09:25 Intake & Output 10/25/18 10/26/18 10/26/18 18:59 06:59 18:59 Intake Total 380 410 Output Total 800 500 Balance -420 -90 Weight 83 kg Intake: Oral 380 410 Output: Urine 800 500 Other: # Voids 1 # Bowel Movements 2 - Exam General: non toxic, no distress, appears at stated age Derm: warm, dry Head: atraumatic, normocephalic, symmetric Eyes: EOMI, no lid lag, anicteric sclera Mouth: no lip lesion, mucus membranes moist Cardiovascular: S1S2 reg, no murmur, positive posterior tibial pulse bilateral, Lungs: CTA bilateral, no rhonchi, no rales , no accessory muscle use Abdominal: soft, nontender to palpation, no guarding, no appreciable organomegaly Ext: no gross muscle atrophy, no edema, no contractures Neuro: CN II-XI grossly intact, no focal neuro deficits Psych: Alert, oriented, falt affect - Labs CBC & Chem 7: 10/25/18 06:45 10/25/18 06:45 Labs: Abnormal Lab Results - Last 24 Hours (Table) 10/25/18 10/25/18 10/26/18 Range/Units 17:10 21:23 06:35 POC Glucose (mg/dL) 112 H 139 H 163 H (75-99) mg/dL 10/26/18 Range/Units 12:18 POC Glucose (mg/dL) 102 H (75-99) mg/dL Assessment and Plan Assessment: Posterior scalp laceration secondary to fall with concussion -PT/OT recs -Fall precautions -Would not repeat the echocardiogram at this time she has had one within the last month -Patient does not report any history of syncope Orthostatic hypotension - hold lasix, IVF, recheck in AM - May be med induced, decrease hydralazine start cozaar - recheck orthostatics in AM - add TEDS Hypertension, urgency on arrival -decrease hydralazine, cozaar - continue metoprolol with recent stent Diabetes mellitus type 2, insulin requiring -Continue with long-acting insulin 25 units at night, sliding scale insulin, hemoglobin A1c 6.3 approximately 4 months ago. Patient states she has had this followed with Dr. Quinn. Chronic kidney disease stage III -Creatinine at baseline -Avoid additional nephrotoxic medications -Continue outpatient follow-up Sick sinus syndrome status post permanent pacemaker implantation -Telemetry Diastolic congestive heart failure, chronic, at baseline -no Lasix due to orthostatic hypotension, continue with labetalol Atherosclerotic coronary artery disease -ASA, Plavix, Imdur, statin Obesity with BMI 32.4 -Structured outpatient weight loss Depression -psych eval appreciated - off pristiq Chronic: Seizure disorder, asthma, colitis, prior uterine cancer DVT prophylaxis: SCDs Discussed with: patient, nursing Anticipated discharge date: in AM Anticipated discharge place: home A total of 25 minutes was spent on the care of this complex patient more than 50% of the time was spent in counseling and care coordination.
[2018-10-26] MEDS: SODIUM CHLORIDE 0.9% 500 ML 500 ML IV SCH ×4 (16:56→22:38)
[2018-10-26 17:11] LABS: Glucose,Whole Blood 134 mg/dL (75-99)
[2018-10-26] MEDS: GABAPENTIN 300 MG CAP PO SCH (20:10)
[2018-10-26] MEDS: ATORVASTATIN 40 MG TAB PO SCH (20:10)
[2018-10-26] MEDS: QUEtiapine 100 MG TAB PO SCH (20:11)
[2018-10-26 20:35] LABS: Glucose,Whole Blood 186 mg/dL (75-99)
[2018-10-26] MEDS: INSULIN DETEMIR (LEVEMIR) 100 UNIT/ML SYR SQ SCH (20:44)
[2018-10-27] MEDS: SODIUM CHLORIDE 0.9% 500 ML 500 ML IV SCH ×4 (03:00→20:34)
[2018-10-27 06:14] LABS: Glucose,Whole Blood 87 mg/dL (75-99)
[2018-10-27] MEDS: INSULIN ASPART (NovoLOG) 100 UNIT/ML VIAL SQ SCH ×4 (06:15→20:23)
[2018-10-27 07:56] LABS: Potassium 3.7 mmol/L (3.5-5.1)
[2018-10-27] MEDS: ALBUTEROL NEBULIZED 2.5 MG/3 ML INHALATION PRN ×2 (08:16→19:33)
[2018-10-27] MEDS: hydrALAZINE HCL 50 MG TAB PO SCH ×3 (08:45→20:23)
[2018-10-27] MEDS: ACETAMINOPHEN TAB 500 MG TAB PO SCH ×2 (08:45→16:51)
[2018-10-27] MEDS: PANTOPRAZOLE 40 MG/10 ML VIAL IV SCH (08:45)
[2018-10-27] MEDS: CALCIUM CARBONATE 500 MG CHEWABLE PO SCH (08:46)
[2018-10-27] MEDS: CYANOCOBALAMIN 500 MCG TAB PO SCH (08:46)
[2018-10-27] MEDS: LABETALOL 100 MG TAB PO SCH ×2 (08:47→20:23)
[2018-10-27] MEDS: levETIRAcetam 500 MG TAB PO SCH ×2 (08:47→20:23)
[2018-10-27] MEDS: ASPIRIN 81 MG PO SCH (08:47)
[2018-10-27] MEDS: FERROUS SULFATE 325 MG TAB PO SCH (08:47)
[2018-10-27] MEDS: LOSARTAN 25 MG TAB PO SCH (08:47)
[2018-10-27] MEDS: ESCITALOPRAM 20 MG TAB PO SCH (08:47)
[2018-10-27] MEDS: ISOSORBIDE MONONITRATE ER 30 MG TAB.ER.24H PO SCH (08:47)
[2018-10-27] MEDS: CLOPIDOGREL 75 MG TAB PO SCH (08:47)
[2018-10-27] MEDS: TRIAMCINOLONE ACET 0.1% OINTMENT 15 GM TUBE TOPICAL SCH ×2 (08:49→20:24)
[2018-10-27] MEDS ORDERED: SODIUM CHLORIDE 5% OPHTH DROPS 15 ML BTL BOTH EYES SCH (09:00)
[2018-10-27 12:04] LABS: Glucose,Whole Blood 130 mg/dL (75-99)
[2018-10-27] MEDS: SODIUM CHLORIDE 0.9% 1,000 ML IV SCH (12:21)
[2018-10-27] MEDS: prednisoLONE ACETATE 1% OPHTH DROPS 5 ML BTL LEFT EYE SCH (16:36)
[2018-10-27 16:55] LABS: Glucose,Whole Blood 156 mg/dL (75-99)
[2018-10-27] MEDS: ATORVASTATIN 40 MG TAB PO SCH (20:22)
[2018-10-27] MEDS: INSULIN DETEMIR (LEVEMIR) 100 UNIT/ML SYR SQ SCH (20:23)
[2018-10-27] MEDS: GABAPENTIN 300 MG CAP PO SCH (20:23)
[2018-10-27] MEDS: QUEtiapine 100 MG TAB PO SCH (20:23)
[2018-10-27 20:32] LABS: Glucose,Whole Blood 178 mg/dL (75-99)
--- NOTE | 2018-10-27 21:02 | P.PN ---
Progress Note - Text Progress Note Date: 10/27/18 Presenting complaint: Tired Interval history: This is a patient presented with falls. Found to orthostatic hypotension. Also had hypertension with urgency on presentation. Had a scalp laceration secondary to fall with concussion. Seen by psychiatry. Pristiq was discontinued. Has chronic olfactory and visual hallucinations Today-feeling better. Laying in bed. Did tolerate some diet. Review of systems: Was done for constitutional, cardiovascular, GI, pulmonary. relevant finding as above Active Medications Acetaminophen (Tylenol Tab) 650 mg PO Q6HR PRN PRN Reason: Mild Pain or Fever > 100.5 Last Admin: 10/26/18 04:41 Dose: 650 mg Documented by: Acetaminophen (Tylenol Tab) 500 mg PO Q8HR [facility] Last Admin: 10/27/18 16:51 Dose: 500 mg Documented by: Acetaminophen/Codeine Phosphate (Tylenol #3) 1 each PO Q4HR PRN PRN Reason: Moderate Pain Albuterol Sulfate (Ventolin Nebulized) 2.5 mg INHALATION RT-Q6H PRN PRN Reason: Shortness Of Breath Last Admin: 10/27/18 08:16 Dose: 2.5 mg Documented by: Aspirin (Aspirin) 81 mg PO DAILY [facility] Last Admin: 10/27/18 08:47 Dose: 81 mg Documented by: Atorvastatin Calcium (Lipitor) 40 mg PO HS [facility] Last Admin: 10/27/18 20:22 Dose: 40 mg Documented by: Calcium Carbonate/Glycine (Tums) 500 mg PO DAILY [facility] Last Admin: 10/27/18 08:46 Dose: 500 mg Documented by: Clonidine (Catapres) 0.1 mg PO TID PRN PRN Reason: SBP >180 Clopidogrel Bisulfate (Plavix) 75 mg PO DAILY [facility] Last Admin: 10/27/18 08:47 Dose: 75 mg Documented by: Cyanocobalamin (Vitamin B-12) 1,000 mcg PO DAILY [facility] Last Admin: 10/27/18 08:46 Dose: 1,000 mcg Documented by: Escitalopram Oxalate (Lexapro) 20 mg PO DAILY [facility] Last Admin: 10/27/18 08:47 Dose: 20 mg Documented by: Ferrous Sulfate (Feosol) 325 mg PO DAILY [facility] Last Admin: 10/27/18 08:47 Dose: 325 mg Documented by: Gabapentin (Neurontin) 300 mg PO [facility] Last Admin: 10/27/18 20:23 Dose: 300 mg Documented by: Hydralazine HCl (Apresoline) 50 mg PO TID [facility] Last Admin: 10/27/18 20:23 Dose: 50 mg Documented by: Sodium Chloride (Saline 0.9%) 500 mls @ 120 mls/hr IV .Q4H10M [facility] Last Admin: 10/27/18 20:34 Dose: Not Given Documented by: Insulin Aspart (Novolog) 0 unit SQ [facility]; Protocol Last Admin: 10/27/18 20:23 Dose: 2 unit Documented by: Insulin Detemir (Levemir) 30 unit SQ [facility] Last Admin: 10/27/18 20:23 Dose: 30 unit Documented by: Isosorbide Mononitrate (Imdur) 30 mg PO DAILY [facility] Last Admin: 10/27/18 08:47 Dose: 30 mg Documented by: Labetalol HCl (Trandate) 100 mg PO Q12HR [facility] Last Admin: 10/27/18 20:23 Dose: 100 mg Documented by: Levetiracetam (Keppra) 500 mg PO Q12HR [facility] Last Admin: 10/27/18 20:23 Dose: 500 mg Documented by: Losartan Potassium (Cozaar) 25 mg PO DAILY [facility] Last Admin: 10/27/18 08:47 Dose: 25 mg Documented by: Naloxone HCl (Narcan) 0.2 mg IV Q2M PRN PRN Reason: Opioid Reversal Nitroglycerin (Nitrostat) 0.4 mg SUBLINGUAL Q5M PRN PRN Reason: Chest Pain Ondansetron HCl (Zofran) 4 mg IVP Q8HR PRN PRN Reason: Nausea And Vomiting Pantoprazole Sodium (Protonix) 40 mg PO DAILY [facility] Prednisolone Acetate (Pred Forte 1%) 1 drops LEFT EYE DAILY [facility] Last Admin: 10/27/18 16:36 Dose: Not Given Documented by: Quetiapine Fumarate (Seroquel) 100 mg PO [facility] Last Admin: 10/27/18 20:23 Dose: 100 mg Documented by: Sodium Chloride (Amanda 128) 1 drops BOTH EYES MOFR [facility] Last Admin: 10/27/18 08:48 Dose: 1 drops Documented by: Triamcinolone Acetonide (Kenalog) 1 applic TOPICAL BID [facility] Last Admin: 10/27/18 20:24 Dose: 1 applic Documented by: On examination: VITAL SIGNS: 97.2, 60, 16, 139/63, 97% room air GENERAL APPEARANCE: Average build. Lying in bed, comfortable. HEENT: Normal external appearance of nose and ear. Oral cavity normal EYES: Pupils equal. Conjunctiva normal. NECK: JVD not raised. Mass not palpable. RESPIRATORY: Respiratory effort normal. Lungs clear to auscultation. CARDIOVASCULAR: First and second sounds normal. No edema. ABDOMEN: Soft. Liver and spleen not palpable. No tenderness. No mass palpable. PSYCHIATRY: Alert and oriented x3. Mood and affect normal. INVESTIGATIONS, reviewed in the clinical context: Potassium 3.7 bun 26 creatinine 1.6 Assessment: -Posterior scalp laceration secondary to fall with concussion, POA -Orthostatic hypertension -Chronic congestive heart failure from diastolic dysfunction EF 50-55% -Chronic sick sinus syndrome with a pacemaker -Diabetes mellitus type 2 chronically insulin -Essential hypertension with urgency on presentation -Primary osteoarthritis -Depression otherwise specified -Persistent atrial fibrillation -Coronary artery disease with a history of stent -Chronic kidney disease stage III from nephrosclerosis -Obesity BMI 31.4 Plan: Continue current medication treatment plan patient is feeling better. Care was discussed with the patient.
[2018-10-28] MEDS: ACETAMINOPHEN TAB 500 MG TAB PO SCH ×3 (00:58→16:28)
[2018-10-28] MEDS: SODIUM CHLORIDE 0.9% 500 ML 500 ML IV SCH ×4 (03:48→17:54)
[2018-10-28 06:28] LABS: Glucose,Whole Blood 104 mg/dL (75-99)
[2018-10-28] MEDS: INSULIN ASPART (NovoLOG) 100 UNIT/ML VIAL SQ SCH ×4 (06:31→21:12)
[2018-10-28] MEDS: CALCIUM CARBONATE 500 MG CHEWABLE PO SCH (09:17)
[2018-10-28] MEDS: FERROUS SULFATE 325 MG TAB PO SCH (09:17)
[2018-10-28] MEDS: ASPIRIN 81 MG PO SCH (09:17)
[2018-10-28] MEDS: PANTOPRAZOLE 40 MG TABLET PO SCH (09:17)
[2018-10-28] MEDS: LOSARTAN 25 MG TAB PO SCH (09:18)
[2018-10-28] MEDS: levETIRAcetam 500 MG TAB PO SCH ×2 (09:18→21:05)
[2018-10-28] MEDS: ISOSORBIDE MONONITRATE ER 30 MG TAB.ER.24H PO SCH (09:18)
[2018-10-28] MEDS: hydrALAZINE HCL 50 MG TAB PO SCH ×3 (09:18→21:05)
[2018-10-28] MEDS: ESCITALOPRAM 20 MG TAB PO SCH (09:19)
[2018-10-28] MEDS: CYANOCOBALAMIN 500 MCG TAB PO SCH (09:19)
[2018-10-28] MEDS: prednisoLONE ACETATE 1% OPHTH DROPS 5 ML BTL LEFT EYE SCH (09:19)
[2018-10-28] MEDS: CLOPIDOGREL 75 MG TAB PO SCH (09:19)
[2018-10-28] MEDS: LABETALOL 100 MG TAB PO SCH ×2 (09:20→21:04)
[2018-10-28 11:36] LABS: Glucose,Whole Blood 136 mg/dL (75-99)
[2018-10-28 16:42] LABS: Glucose,Whole Blood 122 mg/dL (75-99)
[2018-10-28] MEDS: TRIAMCINOLONE ACET 0.1% OINTMENT 15 GM TUBE TOPICAL SCH ×2 (17:55→21:06)
[2018-10-28 20:53] LABS: Glucose,Whole Blood 146 mg/dL (75-99)
[2018-10-28] MEDS: GABAPENTIN 300 MG CAP PO SCH (21:04)
[2018-10-28] MEDS: QUEtiapine 100 MG TAB PO SCH (21:04)
[2018-10-28] MEDS: ATORVASTATIN 40 MG TAB PO SCH (21:05)
[2018-10-28] MEDS: INSULIN DETEMIR (LEVEMIR) 100 UNIT/ML SYR SQ SCH (21:09)
--- NOTE | 2018-10-28 22:53 | P.PN ---
Progress Note - Text Progress Note Date: 10/28/18 Presenting complaint: Tired Interval history: This is a patient presented with falls. Found to orthostatic hypotension. Also had hypertension with urgency on presentation. Had a scalp laceration secondary to fall with concussion. Seen by psychiatry. Pristiq was discontinued. Has chronic olfactory and visual hallucinations Today-does feel tired. Tolerating her meals. Pending decision to go to the [facility]. No other new issues. Had a bowel movement. Review of systems: Was done for constitutional, cardiovascular, GI, pulmonary. relevant finding as above Active Medications Acetaminophen (Tylenol Tab) 650 mg PO Q6HR PRN PRN Reason: Mild Pain or Fever > 100.5 Last Admin: 10/26/18 04:41 Dose: 650 mg Documented by: Acetaminophen (Tylenol Tab) 500 mg PO Q8HR [facility] Last Admin: 10/28/18 16:28 Dose: 500 mg Documented by: Acetaminophen/Codeine Phosphate (Tylenol #3) 1 each PO Q4HR PRN PRN Reason: Moderate Pain Albuterol Sulfate (Ventolin Nebulized) 2.5 mg INHALATION RT-Q6H PRN PRN Reason: Shortness Of Breath Last Admin: 10/27/18 08:16 Dose: 2.5 mg Documented by: Aspirin (Aspirin) 81 mg PO DAILY [facility] Last Admin: 10/28/18 09:17 Dose: 81 mg Documented by: Atorvastatin Calcium (Lipitor) 40 mg PO HS [facility] Last Admin: 10/28/18 21:05 Dose: 40 mg Documented by: Calcium Carbonate/Glycine (Tums) 500 mg PO DAILY [facility] Last Admin: 10/28/18 09:17 Dose: 500 mg Documented by: Clonidine (Catapres) 0.1 mg PO TID PRN PRN Reason: SBP >180 Last Admin: 10/28/18 21:05 Dose: 0.1 mg Documented by: Clopidogrel Bisulfate (Plavix) 75 mg PO DAILY [facility] Last Admin: 10/28/18 09:19 Dose: 75 mg Documented by: Cyanocobalamin (Vitamin B-12) 1,000 mcg PO DAILY [facility] Last Admin: 10/28/18 09:19 Dose: 1,000 mcg Documented by: Escitalopram Oxalate (Lexapro) 20 mg PO DAILY [facility] Last Admin: 10/28/18 09:19 Dose: 20 mg Documented by: Ferrous Sulfate (Feosol) 325 mg PO DAILY [facility] Last Admin: 10/28/18 09:17 Dose: 325 mg Documented by: Gabapentin (Neurontin) 300 mg PO HS [facility] Last Admin: 10/28/18 21:04 Dose: 300 mg Documented by: Hydralazine HCl (Apresoline) 50 mg PO TID [facility] Last Admin: 10/28/18 21:05 Dose: 50 mg Documented by: Sodium Chloride (Saline 0.9%) 500 mls @ 120 mls/hr IV .Q4H10M [facility] Last Admin: 10/28/18 17:54 Dose: Not Given Documented by: Insulin Aspart (Novolog) 0 unit SQ [facility]; Protocol Last Admin: 10/28/18 21:12 Dose: Not Given Documented by: Insulin Detemir (Levemir) 30 unit SQ [facility] Last Admin: 10/28/18 21:09 Dose: 30 unit Documented by: Isosorbide Mononitrate (Imdur) 30 mg PO DAILY [facility] Last Admin: 10/28/18 09:18 Dose: 30 mg Documented by: Labetalol HCl (Trandate) 100 mg PO Q12HR [facility] Last Admin: 10/28/18 21:04 Dose: 100 mg Documented by: Levetiracetam (Keppra) 500 mg PO Q12HR [facility] Last Admin: 10/28/18 21:05 Dose: 500 mg Documented by: Losartan Potassium (Cozaar) 25 mg PO DAILY [facility] Last Admin: 10/28/18 09:18 Dose: 25 mg Documented by: Naloxone HCl (Narcan) 0.2 mg IV Q2M PRN PRN Reason: Opioid Reversal Nitroglycerin (Nitrostat) 0.4 mg SUBLINGUAL Q5M PRN PRN Reason: Chest Pain Ondansetron HCl (Zofran) 4 mg IVP Q8HR PRN PRN Reason: Nausea And Vomiting Pantoprazole Sodium (Protonix) 40 mg PO DAILY [facility] Last Admin: 10/28/18 09:17 Dose: 40 mg Documented by: Prednisolone Acetate (Pred Forte 1%) 1 drops LEFT EYE DAILY [facility] Last Admin: 10/28/18 09:19 Dose: 1 drops Documented by: Quetiapine Fumarate (Seroquel) 100 mg PO [facility] Last Admin: 10/28/18 21:04 Dose: 100 mg Documented by: Sodium Chloride (Amanda 128) 1 drops BOTH EYES MOFR [facility] Last Admin: 10/27/18 08:48 Dose: 1 drops Documented by: Triamcinolone Acetonide (Kenalog) 1 applic TOPICAL BID [facility] Last Admin: 10/28/18 21:06 Dose: 1 applic Documented by: On examination: VITAL SIGNS: 98, 60, 16, 1 38 x 65, 97% room air GENERAL APPEARANCE: Propped up in bed, comfortable. HEENT: Normal external appearance of nose and ear. Oral cavity normal EYES: Pupils equal. Conjunctiva normal. NECK: JVD not raised. Mass not palpable. RESPIRATORY: Respiratory effort normal. Lungs clear to auscultation. CARDIOVASCULAR: First and second sounds normal. No edema. ABDOMEN: Soft. Liver and spleen not palpable. No tenderness. No mass palpable. PSYCHIATRY: Alert and oriented x3. Mood and affect normal. INVESTIGATIONS, reviewed in the clinical context: Accu-Cheks noted Previous labs: Potassium 3.7 bun 26 creatinine 1.6 Assessment: -Posterior scalp laceration secondary to fall with concussion, POA -Orthostatic hypertension -Chronic congestive heart failure from diastolic dysfunction EF 50-55% -Chronic sick sinus syndrome with a pacemaker -Diabetes mellitus type 2 chronically insulin -Essential hypertension with urgency on presentation -Primary osteoarthritis -Depression otherwise specified -Persistent atrial fibrillation -Coronary artery disease with a history of stent -Chronic kidney disease stage III from nephrosclerosis -Obesity BMI 31.4 Plan: Continue current medication treatment plan. Awaiting decision per discharge planning about where patient can go. Looking into ECF. Care was discussed with the patient.
[2018-10-29 06:14] LABS: Glucose,Whole Blood 119 mg/dL (75-99)
[2018-10-29] MEDS: INSULIN ASPART (NovoLOG) 100 UNIT/ML VIAL SQ SCH ×4 (06:18→21:05)
[2018-10-29] MEDS: ACETAMINOPHEN TAB 500 MG TAB PO SCH ×3 (06:18→16:49)
[2018-10-29] MEDS: SODIUM CHLORIDE 0.9% 500 ML 500 ML IV SCH ×6 (06:18→20:57)
[2018-10-29] MEDS: levETIRAcetam 500 MG TAB PO SCH ×2 (08:34→21:12)
[2018-10-29] MEDS: ESCITALOPRAM 20 MG TAB PO SCH (08:34)
[2018-10-29] MEDS: ASPIRIN 81 MG PO SCH (08:34)
[2018-10-29] MEDS: PANTOPRAZOLE 40 MG TABLET PO SCH (08:34)
[2018-10-29] MEDS: CALCIUM CARBONATE 500 MG CHEWABLE PO SCH (08:35)
[2018-10-29] MEDS: LOSARTAN 25 MG TAB PO SCH (08:35)
[2018-10-29] MEDS: hydrALAZINE HCL 50 MG TAB PO SCH ×3 (08:35→21:12)
[2018-10-29] MEDS: FERROUS SULFATE 325 MG TAB PO SCH (08:35)
[2018-10-29] MEDS: CLOPIDOGREL 75 MG TAB PO SCH (08:35)
[2018-10-29] MEDS: CYANOCOBALAMIN 500 MCG TAB PO SCH (08:35)
[2018-10-29] MEDS: LABETALOL 100 MG TAB PO SCH ×2 (08:35→21:12)
[2018-10-29] MEDS: ISOSORBIDE MONONITRATE ER 30 MG TAB.ER.24H PO SCH (08:35)
[2018-10-29] MEDS: prednisoLONE ACETATE 1% OPHTH DROPS 5 ML BTL LEFT EYE SCH (08:36)
[2018-10-29] MEDS: TRIAMCINOLONE ACET 0.1% OINTMENT 15 GM TUBE TOPICAL SCH ×3 (08:36→21:14)
[2018-10-29 11:53] LABS: Glucose,Whole Blood 142 mg/dL (75-99)
[2018-10-29 16:48] LABS: Glucose,Whole Blood 120 mg/dL (75-99)
[2018-10-29 20:54] LABS: Glucose,Whole Blood 187 mg/dL (75-99)
[2018-10-29] MEDS: GABAPENTIN 300 MG CAP PO SCH (21:12)
[2018-10-29] MEDS: ATORVASTATIN 40 MG TAB PO SCH (21:12)
[2018-10-29] MEDS: QUEtiapine 100 MG TAB PO SCH (21:12)
[2018-10-29] MEDS: INSULIN DETEMIR (LEVEMIR) 100 UNIT/ML SYR SQ SCH (21:13)
--- NOTE | 2018-10-29 23:21 | P.PN ---
Progress Note - Text Progress Note Date: 10/29/18 Presenting complaint: Tired Interval history: This is a patient presented with falls. Found to orthostatic hypotension. Also had hypertension with urgency on presentation. Had a scalp laceration secondary to fall with concussion. Seen by psychiatry. Pristiq was discontinued. Has chronic olfactory and visual hallucinations Today-no new issues. Staying in bed. Told the nurse to have the patient set up in a chair. Tolerating a diet. Review of systems: Was done for constitutional, cardiovascular, GI, pulmonary. relevant finding as above Active Medications Acetaminophen (Tylenol Tab) 650 mg PO Q6HR PRN PRN Reason: Mild Pain or Fever > 100.5 Last Admin: 10/26/18 04:41 Dose: 650 mg Documented by: Acetaminophen (Tylenol Tab) 500 mg PO Q8HR [facility] Last Admin: 10/29/18 16:49 Dose: Not Given Documented by: Acetaminophen/Codeine Phosphate (Tylenol #3) 1 each PO Q4HR PRN PRN Reason: Moderate Pain Last Admin: 10/29/18 21:12 Dose: 1 each Documented by: Albuterol Sulfate (Ventolin Nebulized) 2.5 mg INHALATION RT-Q6H PRN PRN Reason: Shortness Of Breath Last Admin: 10/27/18 08:16 Dose: 2.5 mg Documented by: Aspirin (Aspirin) 81 mg PO DAILY [facility] Last Admin: 10/29/18 08:34 Dose: 81 mg Documented by: Atorvastatin Calcium (Lipitor) 40 mg PO HS [facility] Last Admin: 10/29/18 21:12 Dose: 40 mg Documented by: Calcium Carbonate/Glycine (Tums) 500 mg PO DAILY [facility] Last Admin: 10/29/18 08:35 Dose: 500 mg Documented by: Clonidine (Catapres) 0.1 mg PO TID PRN PRN Reason: SBP >180 Last Admin: 10/28/18 21:05 Dose: 0.1 mg Documented by: Clopidogrel Bisulfate (Plavix) 75 mg PO DAILY [facility] Last Admin: 10/29/18 08:35 Dose: 75 mg Documented by: Cyanocobalamin (Vitamin B-12) 1,000 mcg PO DAILY [facility] Last Admin: 10/29/18 08:35 Dose: 1,000 mcg Documented by: Escitalopram Oxalate (Lexapro) 20 mg PO DAILY [facility] Last Admin: 10/29/18 08:34 Dose: 20 mg Documented by: Ferrous Sulfate (Feosol) 325 mg PO DAILY [facility] Last Admin: 10/29/18 08:35 Dose: 325 mg Documented by: Gabapentin (Neurontin) 300 mg PO [facility] Last Admin: 10/29/18 21:12 Dose: 300 mg Documented by: Hydralazine HCl (Apresoline) 50 mg PO TID [facility] Last Admin: 10/29/18 21:12 Dose: 50 mg Documented by: Sodium Chloride (Saline 0.9%) 500 mls @ 120 mls/hr IV .Q4H10M [facility] Last Admin: 10/29/18 20:57 Dose: Not Given Documented by: Insulin Aspart (Novolog) 0 unit SQ [facility]; Protocol Last Admin: 10/29/18 21:05 Dose: Not Given Documented by: Insulin Detemir (Levemir) 30 unit SQ [facility] Last Admin: 10/29/18 21:13 Dose: 30 unit Documented by: Isosorbide Mononitrate (Imdur) 30 mg PO DAILY [facility] Last Admin: 10/29/18 08:35 Dose: 30 mg Documented by: Labetalol HCl (Trandate) 100 mg PO Q12HR [facility] Last Admin: 10/29/18 21:12 Dose: 100 mg Documented by: Levetiracetam (Keppra) 500 mg PO Q12HR [facility] Last Admin: 10/29/18 21:12 Dose: 500 mg Documented by: Losartan Potassium (Cozaar) 25 mg PO DAILY [facility] Last Admin: 10/29/18 08:35 Dose: 25 mg Documented by: Naloxone HCl (Narcan) 0.2 mg IV Q2M PRN PRN Reason: Opioid Reversal Nitroglycerin (Nitrostat) 0.4 mg SUBLINGUAL Q5M PRN PRN Reason: Chest Pain Ondansetron HCl (Zofran) 4 mg IVP Q8HR PRN PRN Reason: Nausea And Vomiting Pantoprazole Sodium (Protonix) 40 mg PO DAILY [facility] Last Admin: 10/29/18 08:34 Dose: 40 mg Documented by: Prednisolone Acetate (Pred Forte 1%) 1 drops LEFT EYE DAILY [facility] Last Admin: 10/29/18 08:36 Dose: 1 drops Documented by: Quetiapine Fumarate (Seroquel) 100 mg PO [facility] Last Admin: 10/29/18 21:12 Dose: 100 mg Documented by: Sodium Chloride (Amanda 128) 1 drops BOTH EYES MOFR [facility] Last Admin: 10/27/18 08:48 Dose: 1 drops Documented by: Triamcinolone Acetonide (Kenalog) 1 applic TOPICAL BID [facility] Last Admin: 10/29/18 21:14 Dose: Not Given Documented by: On examination: VITAL SIGNS: Orthostatic present. Laying down 87/55, standing up 135/64, temperature 97.9, 60, pulse of 95% room air GENERAL APPEARANCE: Laying in bed. HEENT: Normal external appearance of nose and ear. Oral cavity normal EYES: Pupils equal. Conjunctiva normal. NECK: JVD not raised. Mass not palpable. RESPIRATORY: Respiratory effort normal. Lungs clear to auscultation. CARDIOVASCULAR: First and second sounds normal. No edema. ABDOMEN: Soft. Liver and spleen not palpable. No tenderness. No mass palpable. PSYCHIATRY: Alert and oriented x3. Mood and affect normal. INVESTIGATIONS, reviewed in the clinical context: Accu-Cheks noted Previous labs: Potassium 3.7 bun 26 creatinine 1.6 Assessment: -Posterior scalp laceration secondary to fall with concussion, POA -Orthostatic hypertension -Chronic congestive heart failure from diastolic dysfunction EF 50-55% -Chronic sick sinus syndrome with a pacemaker -Diabetes mellitus type 2 chronically insulin -Essential hypertension with urgency on presentation -Primary osteoarthritis -Depression otherwise specified -Persistent atrial fibrillation -Coronary artery disease with a history of stent -Chronic kidney disease stage III from nephrosclerosis -Obesity BMI 31.4 Plan: We will use LESLI stockings on both the legs to help with the orthostatic. IV fluids will be discontinued. Blood pressure has been fluctuating. She was tending to go up to dated today. Hopefully come down with stopping IV fluids. Overall prognosis guarded.
[2018-10-30] MEDS: ACETAMINOPHEN TAB 500 MG TAB PO SCH ×2 (01:10→08:16)
[2018-10-30 06:16] LABS: Glucose,Whole Blood 90 mg/dL (75-99)
[2018-10-30] MEDS: INSULIN ASPART (NovoLOG) 100 UNIT/ML VIAL SQ SCH ×2 (06:16→12:13)
[2018-10-30] MEDS: ASPIRIN 81 MG PO SCH (08:16)
[2018-10-30] MEDS: CALCIUM CARBONATE 500 MG CHEWABLE PO SCH (08:16)
[2018-10-30] MEDS: CLOPIDOGREL 75 MG TAB PO SCH (08:16)
[2018-10-30] MEDS: CYANOCOBALAMIN 500 MCG TAB PO SCH (08:17)
[2018-10-30] MEDS: hydrALAZINE HCL 50 MG TAB PO SCH (08:17)
[2018-10-30] MEDS: PANTOPRAZOLE 40 MG TABLET PO SCH (08:17)
[2018-10-30] MEDS: ESCITALOPRAM 20 MG TAB PO SCH (08:17)
[2018-10-30] MEDS: levETIRAcetam 500 MG TAB PO SCH (08:17)
[2018-10-30] MEDS: FERROUS SULFATE 325 MG TAB PO SCH (08:17)
[2018-10-30] MEDS: LOSARTAN 25 MG TAB PO SCH (08:17)
[2018-10-30] MEDS: LABETALOL 100 MG TAB PO SCH (08:19)
[2018-10-30] MEDS: ISOSORBIDE MONONITRATE ER 30 MG TAB.ER.24H PO SCH (08:19)
[2018-10-30] MEDS: TRIAMCINOLONE ACET 0.1% OINTMENT 15 GM TUBE TOPICAL SCH (08:22)
[2018-10-30] MEDS: prednisoLONE ACETATE 1% OPHTH DROPS 5 ML BTL LEFT EYE SCH (11:44)
[2018-10-30 11:56] VITALS: BP 146/69; PULSE 56; RESP 16; TEMP 98.3
[2018-10-30 12:06] LABS: Glucose,Whole Blood 128 mg/dL (75-99)
--- NOTE | 2018-10-30 12:35 | P.DS ---
Providers Date of admission: 10/27/18 12:37 Expected date of discharge: 10/30/18 Attending physician: Jhonathan Hatfield Consults: 10/25/18 13:33 Consult Physician Routine Consulting Provider: Tunde Cannon Consult Reason/Comments: fleeting suicidial thoughts Do you want consulting provider notified?: Yes Primary care physician: Jas [facility] Course: Hospital course: This is a patient presented with falls. Found to orthostatic hypotension. Also had hypertension with urgency on presentation. Had a scalp laceration secondary to fall with concussion. Seen by psychiatry. Pristiq was discontinued. Has chronic olfactory and visual hallucinations Patient doing much better. Blood pressure better controlled. LESLI stockings were given. Tolerating a diet. Consultation: ( from psychiatry On examination: VITAL SIGNS: Orthostatics corrected. Blood pressure 146 presaged 9 pulse 56 respirations 16 temperature 98.3 GENERAL APPEARANCE: Sitting up in a chair, comfortable. HEENT: Normal external appearance of nose and ear. Oral cavity normal EYES: Pupils equal. Conjunctiva normal. NECK: JVD not raised. Mass not palpable. RESPIRATORY: Respiratory effort normal. Lungs clear to auscultation. CARDIOVASCULAR: First and second sounds normal. No edema. ABDOMEN: Soft. Liver and spleen not palpable. No tenderness. No mass palpable. PSYCHIATRY: Alert and oriented x3. Mood and affect normal. 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, chronic white matter changes Potassium 3.7 bun 26 creatinine 1.6 Assessment: -Posterior scalp laceration secondary to fall with concussion, POA -Orthostatic hypertension -Chronic congestive heart failure from diastolic dysfunction EF 50-55% -Chronic sick sinus syndrome with a pacemaker -Diabetes mellitus type 2 chronically insulin -Essential hypertension with urgency on presentation -Primary osteoarthritis -Depression otherwise specified -Persistent atrial fibrillation -Coronary artery disease with a history of stent -Chronic kidney disease stage III from nephrosclerosis -Obesity BMI 31.4 Disposition: [facility] [place] Patient Condition at Discharge: Stable Plan - Discharge Summary Discharge Rx Participant: No New Discharge Prescriptions: No Action Potassium Chloride [Klor-Con 8] 8 meq PO DAILY Labetalol [Trandate] 100 mg PO Q12H Furosemide [Lasix] 40 mg PO DAILY Calcium Carbonate 500 mg PO DAILY Ferrous Sulfate [Iron (65 MG Elemental)] 325 mg PO DAILY Albuterol Inhaler [Ventolin Hfa Inhaler] 1 - 2 puff INHALATION RT-Q6H PRN PRN Reason: Shortness Of Breath prednisoLONE ACETATE [Pred Forte 1%] 1 drop LEFT EYE DAILY Atorvastatin [Lipitor] 40 mg PO HS #90 tab Clopidogrel [Plavix] 75 mg PO DAILY #90 tab Aspirin 81 mg PO DAILY chew Omeprazole [PriLOSEC] 20 mg PO BID #60 capsule.dr Triamcinolone 0.1% Ointment [Kenalog 0.1% Ointment] 1 applic TOPICAL BID Isosorbide Mononitrate ER [Imdur] 30 mg PO DAILY #30 tab.er.24h levETIRAcetam [Keppra] 500 mg PO Q12HR Nitroglycerin Sl Tabs [Nitrostat] 0.4 mg SUBLINGUAL Q5M PRN tab PRN Reason: Chest Pain QUEtiapine [SEROquel] 100 mg PO HS #30 tab Insulin Glargine [Lantus] 30 unit SQ HS Cyanocobalamin (Vitamin B-12) [Vitamin B-12] 1,000 mcg PO DAILY Sodium Chloride 5% Ophth Soln [Amanda 128] 1 drop BOTH EYES MOFR hydrALAZINE HCL [Apresoline] 50 mg PO TID Gabapentin [Neurontin] 300 mg PO HS Acetaminophen [Tylenol Extra Strength] 500 mg PO Q8HR Escitalopram [Lexapro] 20 mg PO DAILY Desvenlafaxine Succinate [Pristiq ER] 25 mg PO DAILY Discharge Medication List Albuterol Inhaler [Ventolin Hfa Inhaler] 1 - 2 puff INHALATION RT-Q6H PRN 03/27/18 [History] Calcium Carbonate 500 mg PO DAILY 03/27/18 [History] Ferrous Sulfate [Iron (65 MG Elemental)] 325 mg PO DAILY 03/27/18 [History] Furosemide [Lasix] 40 mg PO DAILY 03/27/18 [History] Labetalol [Trandate] 100 mg PO Q12H 03/27/18 [History] Potassium Chloride [Klor-Con 8] 8 meq PO DAILY 03/27/18 [History] prednisoLONE ACETATE [Pred Forte 1%] 1 drop LEFT EYE DAILY 06/04/18 [History] Atorvastatin [Lipitor] 40 mg PO HS #90 tab 06/07/18 [Rx] Clopidogrel [Plavix] 75 mg PO DAILY #90 tab 06/07/18 [Rx] Aspirin 81 mg PO DAILY chew 06/11/18 [Rx] Omeprazole [PriLOSEC] 20 mg PO BID #60 capsule.dr 06/13/18 [Rx] Triamcinolone 0.1% Ointment [Kenalog 0.1% Ointment] 1 applic TOPICAL BID [History] Isosorbide Mononitrate ER [Imdur] 30 mg PO DAILY #30 tab.er.24h 07/03/18 [Rx] levETIRAcetam [Keppra] 500 mg PO Q12HR 07/21/18 [History] Nitroglycerin Sl Tabs [Nitrostat] 0.4 mg SUBLINGUAL Q5M PRN tab 07/30/18 [Rx] QUEtiapine [SEROquel] 100 mg PO HS #30 tab 07/30/18 [Rx] Acetaminophen [Tylenol Extra Strength] 500 mg PO Q8HR 09/01/18 [History] Cyanocobalamin (Vitamin B-12) [Vitamin B-12] 1,000 mcg PO DAILY 09/01/18 [History] Gabapentin [Neurontin] 300 mg PO HS 09/01/18 [History] Insulin Glargine [Lantus] 30 unit SQ HS 09/01/18 [History] Sodium Chloride 5% Ophth Soln [Amanda 128] 1 drop BOTH EYES MOFR 09/01/18 [History] hydrALAZINE HCL [Apresoline] 50 mg PO TID 09/01/18 [History] Desvenlafaxine Succinate [Pristiq ER] 25 mg PO DAILY 10/25/18 [History] Escitalopram [Lexapro] 20 mg PO DAILY 10/25/18 [History] Follow up Appointment(s)/Referral(s): Jas Quinn MD [Primary Care Provider] - 1-2 days Activity/Diet/Wound Care/Special Instructions: [facility] for rehab
== END 2018-10-30 15:02 | DRG 312 ==
LOC: EC 06:20 → 3SCARD 09:29 → OBSVTOIN 10-27 12:37
PROVIDERS: ADMIT Hospitalist; ATTEND Hospitalist
DX: I95.1 Orthostatic hypotension (principal); S06.0X9A Concussion with loss of consciousness of unspecified duration, initial encounter; I13.0 Hypertensive heart and chronic kidney disease with heart failure and stage 1 through stage 4 chronic kidney disease, or unspecified chronic kidney disease; I48.1 Persistent atrial fibrillation; I50.32 Chronic diastolic (congestive) heart failure; R44.2 Other hallucinations; E11.22 Type 2 diabetes mellitus with diabetic chronic kidney disease; G40.909 Epilepsy, unspecified, not intractable, without status epilepticus; N18.3 Chronic kidney disease, stage 3 (moderate); E66.9 Obesity, unspecified; F32.9 Major depressive disorder, single episode, unspecified; I25.10 Atherosclerotic heart disease of native coronary artery without angina pectoris; J45.909 Unspecified asthma, uncomplicated; K52.9 Noninfective gastroenteritis and colitis, unspecified; M19.91 Primary osteoarthritis, unspecified site; S01.01XA Laceration without foreign body of scalp, initial encounter; R29.6 Repeated falls; R44.1 Visual hallucinations; I16.0 Hypertensive urgency; R53.1 Weakness; R94.31 Abnormal electrocardiogram [ECG] [EKG]; Z68.32 Body mass index [BMI] 32.0-32.9, adult; Z79.02 Long term (current) use of antithrombotics/antiplatelets; Z79.4 Long term (current) use of insulin; Z79.82 Long term (current) use of aspirin; Z79.899 Other long term (current) drug therapy; Z88.2 Allergy status to sulfonamides; Z88.1 Allergy status to other antibiotic agents; Z91.040 Latex allergy status; Z90.49 Acquired absence of other specified parts of digestive tract; Z95.5 Presence of coronary angioplasty implant and graft; Z95.0 Presence of cardiac pacemaker; Z90.710 Acquired absence of both cervix and uterus; Z87.11 Personal history of peptic ulcer disease; Z86.73 Personal history of transient ischemic attack (TIA), and cerebral infarction without residual deficits; Z85.828 Personal history of other malignant neoplasm of skin; Z85.42 Personal history of malignant neoplasm of other parts of uterus; Z98.42 Cataract extraction status, left eye; Z98.41 Cataract extraction status, right eye; Z96.1 Presence of intraocular lens; Z82.5 Family history of asthma and other chronic lower respiratory diseases; W01.0XXA Fall on same level from slipping, tripping and stumbling without subsequent striking against object, initial encounter; Z82.49 Family history of ischemic heart disease and other diseases of the circulatory system; Z80.8 Family history of malignant neoplasm of other organs or systems
CPT/HCPCS: 12002; 36415; 70450; 71046; 72125; 80048; 80053; 81001; 84484; 85025; 85610; 85730; 90471; 90715; 93005; 94640; 96360; 96361; 99285

== ENCOUNTER 2018-12-09 14:17 | Inpatient (IN) | payer MEDICARE ==
[2018-12-09] MEDS ORDERED: SODIUM CHLORIDE 0.9% 1,000 ML IV STA (15:07)
[2018-12-09 15:20] LABS: Basophils # (A) 0.1 k/uL (0-0.2); Basophils % (A) 1 %; Eosinophils # (A) 0.2 k/uL (0-0.7); Eosinophils % (A) 3 %; HCT 42.2 % (34.0-46.0); Lymphocytes # (A) 1.7 k/uL (1.0-4.8); Lymphocytes % (A) 24 %; MCH 28.1 pg (25.0-35.0); MCHC 30.9 g/dL (31.0-37.0); Mean Platelet Volume 7.5; Monocytes # (A) 0.5 k/uL (0-1.0); Monocytes % (A) 7 %; Neutrophils # (A) 4.6 k/uL (1.3-7.7); Neutrophils % (A) 64 %; Platelet Count 163 k/uL (150-450); RBC 4.64 m/uL (3.80-5.40); RDW 14.4 % (11.5-15.5); WBC 7.3 k/uL (3.8-10.6)
[2018-12-09 15:32] LABS: Albumin 4.4 g/dL (3.5-5.0); Calcium 9.4 mg/dL (8.4-10.2); Potassium 4.8 mmol/L (3.5-5.1); Total Bilirubin 0.6 mg/dL (0.2-1.3); Total Protein 6.8 g/dL (6.3-8.2)
--- NOTE | 2018-12-09 15:32 | ED ---
Dizziness HPI <Juno Burris - Last Filed: 12/09/18 17:50> - General Source: patient Mode of arrival: wheelchair Limitations: no limitations <Ann Marie Shoemaker - Last Filed: 12/09/18 19:50> - General Chief Complaint: Dizziness Stated Complaint: near syncope Time Seen by Provider: 12/09/18 14:50 - History of Present Illness Initial Comments: Patient is a 73-year-old female, Past medical history of A. fib, heart disease with pacemaker, asthma, CVA, diabetes, hypertension, brain tumor, presenting to the emergency Department with complaints of near syncopal episode at home today. Patient was having physical therapy at her house for generalized weakness. Upon arrival, the PT said her blood pressure was normal in the 120s, PT had her to walk to the kitchen and the patient started feeling lightheaded then according to her daughter had a blank stare on her face. Her BP was rechecked and it was in the 90s. Patient sat back down and blood pressure was rechecked after approximately 30 minutes and her blood pressure was normal again. Patient states she is having her normal neck and upper shoulder pain that she's had for weeks now. Patient is denying pain anywhere else. Patient denies chest pain, nausea, vomiting, belly pain. Patient states she does get short of breath when she is walking around the house for the past couple weeks. Approximately one month ago patient was in outpatient rehab after sustaining a fall and getting cristiano in the back of her head and was in rehab for approximately 3 weeks. She has been home for 1 month. Patient denies any fever, chills, cough. Patient has no other complaints at this time. Upon arrival to ER, vital signs are stable. (Ann Marie Shoemaker) - Related Data Home Medications Medication Instructions Recorded Confirmed Albuterol Inhaler [Ventolin Hfa 2 puff INHALATION RT-Q6H PRN 03/27/18 12/09/18 Inhaler] Calcium Carbonate 500 mg PO DAILY 03/27/18 12/09/18 Ferrous Sulfate [Iron (65 MG 325 mg PO DAILY 03/27/18 12/09/18 Elemental)] Labetalol [Trandate] 100 mg PO Q12H 03/27/18 12/09/18 prednisoLONE ACETATE [Pred Forte 1 drop LEFT EYE DAILY 06/04/18 12/09/18 1%] levETIRAcetam [Keppra] 500 mg PO Q12HR 07/21/18 12/09/18 Cyanocobalamin (Vitamin B-12) 1,000 mcg PO DAILY 09/01/18 12/09/18 [Vitamin B-12] Insulin Glargine [Lantus] 30 unit SQ HS 09/01/18 12/09/18 Sodium Chloride 5% Ophth Soln 1 drop BOTH EYES MOFR 09/01/18 12/09/18 [Amanda 128] hydrALAZINE HCL [Apresoline] 50 mg PO TID 09/01/18 12/09/18 Escitalopram [Lexapro] 20 mg PO DAILY 10/25/18 12/09/18 Acetaminophen Tab [Tylenol Tab] 650 mg PO Q6H PRN 12/09/18 12/09/18 Gabapentin [Neurontin] 300 mg PO DAILY 12/09/18 12/09/18 Omeprazole [PriLOSEC] 20 mg PO DAILY 12/09/18 12/09/18 QUEtiapine [SEROquel] 75 mg PO HS 12/09/18 12/09/18 Previous Rx's Medication Instructions Recorded Atorvastatin [Lipitor] 40 mg PO HS #90 tab 06/07/18 Clopidogrel [Plavix] 75 mg PO DAILY #90 tab 06/07/18 Isosorbide Mononitrate ER [Imdur] 30 mg PO DAILY #30 tab.er.24h 07/03/18 Nitroglycerin Sl Tabs [Nitrostat] 0.4 mg SUBLINGUAL Q5M PRN tab 07/30/18 Losartan [Cozaar] 25 mg PO DAILY tab 10/30/18 Allergies Allergy/AdvReac Type Severity Reaction Status Date / Time Latex, Natural Rubber Allergy Itching Verified 12/09/18 18:51 sulfamethoxazole Allergy Rash/Hives Verified 12/09/18 18:51 [From Bactrim] trimethoprim [From Bactrim] Allergy Rash/Hives Verified 12/09/18 18:51 Review of Systems ROS Other: All systems not noted in ROS Statement are negative. <Juno Burris - Last Filed: 12/09/18 17:50> ROS Other: All systems not noted in ROS Statement are negative. <Ann Marie Shoemaker - Last Filed: 12/09/18 19:50> ROS Statement: Those systems with pertinent positive or pertinent negative responses have been documented in the HPI. 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 Right arm fracture 2 History of Any Multi-Drug Resistant Organisms: MRSA Date of last positivie culture/infection: 06/05/18 MDRO Source:: URINE Past Surgical History: Cholecystectomy, Heart Catheterization, Heart Catheterization With Stent, Hysterectomy, Pacemaker Additional Past Surgical History / Comment(s): Evacuation on intracranial hematoma and ressection of hemorrhagic mass, pacemaker 2016, PCI with stent 06/06/18, EGD/colonoscopy, R eye corneal implant/cataract removal, EGD 06/2018, colonoscopy, skin cancer removal. Past Anesthesia/Blood Transfusion Reactions: No Reported Reaction Additional Past Anesthesia/Blood Transfusion Reaction / Comment(s): . Date of Last Stent Placement:: 06/06/18 Type of Cardiac Device: Permanent Pacemaker Device Placement Date:: 04/2016 Past Psychological History: Depression Smoking Status: Never smoker Past Alcohol Use History: None Reported Past Drug Use History: None Reported - Past Family History Mother Family Medical History: Cancer, COPD, Hypertension Additional Family Medical History / Comment(s): Mother had bone cancer. Father Family Medical History: Cancer, Hypertension Additional Family Medical History / Comment(s): Father had skin cancer. <Ann Marie Shoemaker - Last Filed: 12/09/18 19:50> General Exam Limitations: no limitations <Ann Marie Shoemaker L - Last Filed: 12/09/18 19:50> - General Exam Comments Initial Comments: GENERAL: Well-appearing, well-nourished and in no acute distress. HEAD: Atraumatic, normocephalic. EYES: Pupils equal round and reactive to light, extraocular movements intact, sclera anicteric, conjunctiva are normal. ENT: TMs normal, nares patent, oropharynx clear without exudates. Moist mucous membranes. NECK: Normal range of motion, supple without lymphadenopathy or JVD. LUNGS: Breath sounds clear to auscultation bilaterally and equal. No wheezes rales or rhonchi. HEART: Regular rate and rhythm without murmurs, rubs or gallops. ABDOMEN: Soft, nontender, normoactive bowel sounds. No guarding, no rebound. No masses appreciated. : Deferred EXTREMITIES: Some weakness noted on the left side secondary to previous strokes. no pitting or edema. No clubbing or cyanosis. NEUROLOGICAL: Cranial nerves II through XII grossly intact. Normal speech. PSYCH: Normal mood, normal affect. SKIN: Warm, Dry, normal turgor, no rashes or lesions noted. (Ann Marie Shoemaker) Course <Juno Burris - Last Filed: 12/09/18 17:50> Vital Signs 12/09/18 12/09/18 14:20 16:00 Temperature 98.1 F Pulse Rate 60 62 Respiratory 20 16 Rate Blood Pressure 159/75 177/65 O2 Sat by Pulse 99 98 Oximetry - Reevaluation(s) Reevaluation #1: 12/09/18 17:51 Page supervision: I proceeded [id number] evaluation the patient. Patient had a near-syncopal episode or syncopal episode prior to arrival. She does remain weak. There is evidence clinically of a bind depletion. Patient has not tolerated ambulation well she will be admitted case is discussed with Dr. Hatfield. (Juno Burris) EKG Findings - EKG Comments: EKG Findings:: Ventricular rate 60, P interval 174, QTC 492. Atrial pacemaker. ST wave depression. Prolonged QT. <Ann Marie Shoemaker - Last Filed: 12/09/18 19:50> Medical Decision Making - Lab Data Result diagrams: 12/09/18 15:11 12/09/18 15:11 <Juno Burris - Last Filed: 12/09/18 17:50> - Lab Data Result diagrams: 12/09/18 15:11 12/09/18 15:11 <Ann Marie Shoemaker - Last Filed: 12/09/18 19:50> - Medical Decision Making Patient 73-year-old female presenting with lightheadedness 1 day. Vital signs stable upon arrival. EKG is a paced rhythm, similar to previous EKG in October. Lab work today shows no acute findings. UA normal. Troponin 0.013. Chest x- ray shows no acute process. Patient was given a liter of fluids with improvement in symptoms. However when patient was asked to take a few steps around her room, patient had a lightheadedness just sitting on the edge of her bed. Patient was not comfortable going home. Patient will be admitted for lightheadedness and dehydration. Case was discussed with Dr. Burris who agrees with this plan of care. Patient is agreement as well. Patient accepted by Dr. Hatfield. (Ann Marie Shoemaker) - Lab Data Lab Results 12/09/18 12/09/18 12/09/18 Range/Units 15:11 15:11 15:11 WBC 7.3 (3.8-10.6) k/uL RBC 4.64 (3.80-5.40) m/uL Hgb 13.0 (11.4-16.0) gm/dL Hct 42.2 (34.0-46.0) % MCV 91.0 (80.0-100.0) fL MCH 28.1 (25.0-35.0) pg MCHC 30.9 L (31.0-37.0) g/dL RDW 14.4 (11.5-15.5) % Plt Count 163 (150-450) k/uL Neutrophils % 64 % Lymphocytes % 24 % Monocytes % 7 % Eosinophils % 3 % Basophils % 1 % Neutrophils # 4.6 (1.3-7.7) k/uL Lymphocytes # 1.7 (1.0-4.8) k/uL Monocytes # 0.5 (0-1.0) k/uL Eosinophils # 0.2 (0-0.7) k/uL Basophils # 0.1 (0-0.2) k/uL Sodium 143 (137-145) mmol/L Potassium 4.8 (3.5-5.1) mmol/L Chloride 105 (98-107) mmol/L Carbon Dioxide 29 (22-30) mmol/L Anion Gap 9 mmol/L BUN 25 H (7-17) mg/dL Creatinine 1.69 H (0.52-1.04) mg/dL Est GFR (CKD-EPI)AfAm 34 (>60 ml/min/1.73 sqM) Est GFR (CKD-EPI)NonAf 30 (>60 ml/min/1.73 sqM) Glucose 162 H (74-99) mg/dL Calcium 9.4 (8.4-10.2) mg/dL Total Bilirubin 0.6 (0.2-1.3) mg/dL AST 19 (14-36) U/L ALT 16 (9-52) U/L Alkaline Phosphatase 73 (38-126) U/L Troponin I 0.013 (0.000-0.034) ng/mL Total Protein 6.8 (6.3-8.2) g/dL Albumin 4.4 (3.5-5.0) g/dL Urine Color Urine Appearance (Clear) Urine pH (5.0-8.0) Ur Specific [place] (1.001-1.035) Urine Protein (Negative) Urine Glucose (UA) (Negative) Urine Ketones (Negative) Urine Blood (Negative) Urine Nitrite (Negative) Urine Bilirubin (Negative) Urine Urobilinogen (<2.0) mg/dL Ur Leukocyte Esterase (Negative) Urine RBC (0-5) /hpf Urine WBC (0-5) /hpf Ur Squamous Epith Cells (0-4) /hpf Urine Mucus (None) /hpf 12/09/18 Range/Units 16:00 WBC (3.8-10.6) k/uL RBC (3.80-5.40) m/uL Hgb (11.4-16.0) gm/dL Hct (34.0-46.0) % MCV (80.0-100.0) fL MCH (25.0-35.0) pg MCHC (31.0-37.0) g/dL RDW (11.5-15.5) % Plt Count (150-450) k/uL Neutrophils % % Lymphocytes % % Monocytes % % Eosinophils % % Basophils % % Neutrophils # (1.3-7.7) k/uL Lymphocytes # (1.0-4.8) k/uL Monocytes # (0-1.0) k/uL Eosinophils # (0-0.7) k/uL Basophils # (0-0.2) k/uL Sodium (137-145) mmol/L Potassium (3.5-5.1) mmol/L Chloride (98-107) mmol/L Carbon Dioxide (22-30) mmol/L Anion Gap mmol/L BUN (7-17) mg/dL Creatinine (0.52-1.04) mg/dL Est GFR (CKD-EPI)AfAm (>60 ml/min/1.73 sqM) Est GFR (CKD-EPI)NonAf (>60 ml/min/1.73 sqM) Glucose (74-99) mg/dL Calcium (8.4-10.2) mg/dL Total Bilirubin (0.2-1.3) mg/dL AST (14-36) U/L ALT (9-52) U/L Alkaline Phosphatase (38-126) U/L Troponin I (0.000-0.034) ng/mL Total Protein (6.3-8.2) g/dL Albumin (3.5-5.0) g/dL Urine Color Yellow Urine Appearance Clear (Clear) Urine pH 5.5 (5.0-8.0) Ur Specific [place] 1.028 (1.001-1.035) Urine Protein Trace H (Negative) Urine Glucose (UA) Negative (Negative) Urine Ketones Negative (Negative) Urine Blood Negative (Negative) Urine Nitrite Negative (Negative) Urine Bilirubin Negative (Negative) Urine Urobilinogen 2.0 (<2.0) mg/dL Ur Leukocyte Esterase Moderate H (Negative) Urine RBC 2 (0-5) /hpf Urine WBC 13 H (0-5) /hpf Ur Squamous Epith Cells <1 (0-4) /hpf Urine Mucus Rare H (None) /hpf Disposition <Juno Burris - Last Filed: 12/09/18 17:50> Is patient prescribed a controlled substance at d/c from ED?: No Decision Date: 12/09/18 Decision Time: 17:56 <Ann Marie Shoemaker - Last Filed: 12/09/18 19:50> Clinical Impression: Dehydration, Lightheadedness Disposition: ADMITTED IP TO THIS [facility] Condition: Stable
--- NOTE | 2018-12-09 16:01 | XR ---
EXAMINATION TYPE: XR chest 2V DATE OF EXAM: 12/09/2018 COMPARISON: Prior chest x-ray 10/25/2018 HISTORY: Near syncope TECHNIQUE: Frontal and lateral views of the chest are obtained. FINDINGS: Generator is present in the left pectoral region. Leads are again noted in the right atrium and ventricle. There is no focal air space opacity, pleural effusion, or pneumothorax seen. The ca rdiac silhouette size is within normal limits. The osseous structures are stable, distortion of the proximal shoulders due to old trauma is again noted, there is acromioclavicular arthropathy bilatera lly. There are overlying cardiac leads. The aorta is dense. Surgical clips present in the upper abdom en. IMPRESSION: No acute cardiopulmonary process.
[2018-12-09 16:06] LABS: Appearance,Urine Clear (Clear); Bilirubin,Urine Negative (Negative); Blood,Urine Negative (Negative); Color,Urine Yellow; Glucose,Urine (UA) Negative (Negative); Ketones,Urine Negative (Negative); Leukocyte Esterase,Urine Moderate (Negative); Mucus,Urine Rare /hpf; Nitrite,Urine Negative (Negative); PH, Urine 5.5 (5.0-8.0); Protein,Urine Trace (Negative); RBC,Urine 2 /hpf (0-5); Specific Gravity,Urine 1.028 (1.001-1.035); Squamous Epithelial Cell,Urine <1 /hpf (0-4)
[2018-12-09] MEDS ORDERED: ONDANSETRON 4 MG/2 ML VIAL IVP PRN (17:54)
[2018-12-09] MEDS ORDERED: NALOXONE 0.4 MG/ML 1 ML VIAL IV PRN (17:54)
[2018-12-09] MEDS: SODIUM CHLORIDE 0.9% 1,000 ML IV SCH (18:24)
[2018-12-09] MEDS ORDERED: NITROGLYCERIN SL TABS 0.4 MG TAB SUBLINGUAL PRN (20:38)
[2018-12-09] MEDS: INSULIN DETEMIR (LEVEMIR) 100 UNIT/ML SYR SQ SCH (22:18)
[2018-12-09 22:19] LABS: Glucose,Whole Blood 139 mg/dL (75-99)
[2018-12-09] MEDS: levETIRAcetam 500 MG TAB PO SCH (22:19)
[2018-12-09] MEDS: ATORVASTATIN 40 MG TAB PO SCH (22:19)
[2018-12-09] MEDS: hydrALAZINE HCL 50 MG TAB PO SCH (22:20)
[2018-12-09] MEDS: QUEtiapine 25 MG TAB PO SCH (22:20)
[2018-12-09] MEDS: LABETALOL 100 MG TAB PO SCH (22:20)
[2018-12-09] MEDS: ALBUTEROL NEBULIZED 2.5 MG/3 ML INHALATION PRN (22:37)
[2018-12-10 07:00] LABS: Glucose,Whole Blood 96 mg/dL (75-99)
[2018-12-10] MEDS: prednisoLONE ACETATE 1% OPHTH DROPS 5 ML BTL LEFT EYE SCH (08:35)
[2018-12-10] MEDS: CALCIUM CARBONATE 500 MG CHEWABLE PO SCH (08:36)
[2018-12-10] MEDS: levETIRAcetam 500 MG TAB PO SCH ×2 (08:36→21:14)
[2018-12-10] MEDS: CYANOCOBALAMIN 500 MCG TAB PO SCH (08:36)
[2018-12-10] MEDS: LOSARTAN 25 MG TAB PO SCH (08:36)
[2018-12-10] MEDS: CLOPIDOGREL 75 MG TAB PO SCH (08:36)
[2018-12-10] MEDS: ESCITALOPRAM 20 MG TAB PO SCH (08:36)
[2018-12-10] MEDS: hydrALAZINE HCL 50 MG TAB PO SCH ×3 (08:36→21:14)
[2018-12-10] MEDS: FERROUS SULFATE 325 MG TAB PO SCH (08:37)
[2018-12-10] MEDS: PANTOPRAZOLE 40 MG TABLET PO SCH (08:37)
[2018-12-10] MEDS: GABAPENTIN 300 MG CAP PO SCH (08:37)
[2018-12-10] MEDS: LABETALOL 100 MG TAB PO SCH ×2 (08:37→21:14)
[2018-12-10] MEDS: ACETAMINOPHEN TAB 325 MG TAB PO PRN (08:59)
[2018-12-10] MEDS ORDERED: ISOSORBIDE MONONITRATE ER 30 MG TAB.ER.24H PO SCH (09:00)
[2018-12-10 11:42] LABS: Glucose,Whole Blood 152 mg/dL (75-99)
[2018-12-10] MEDS: SODIUM CHLORIDE 0.9% 1,000 ML IV SCH ×2 (11:44→23:33)
[2018-12-10 16:37] LABS: Glucose,Whole Blood 138 mg/dL (75-99)
--- NOTE | 2018-12-10 17:17 | P.HPIM ---
History of Present Illness H&P Date: 12/10/18 Chief Complaint: Near-syncope History of presenting complaint: This is a pleasant 72-year-old patient follows with Dr. escamilla. 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 Lives with her son and [id number]. Does use a wheelchair. 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 She was sent down. She nearly passed out while sitting in a chair. Occasionally getting heartburn. No chest pain. She does get dizzy with standing. Patient has known orthostatic hypertension. There is no seizure activity. The episode was very brief. Review of systems: GEN.: Tired EYES: None HEENT: Decreased hearing NECK: None RESPIRATORY: None CARDIOVASCULAR: None GASTROINTESTINAL: None GENITOURINARY: None MUSCULOSKELETAL: Joint pains LYMPHATICS: None HEMATOLOGICAL: None PSYCHIATRY: Anxious NEUROLOGICAL: Uses a walker Past medical history: Congestive heart failure from diastolic dysfunction, sick sinus syndrome with pacemaker, diabetes, hypertension, osteoarthritis, depression, atrial fibrillation, hypertension, coronary artery disease with stent, brain metastases with surgery had intracranial bleed and seizure for a short time after that, chronic kidney disease, psychosis, uterine cancer with surgery, colitis, cardiac catheterization with stent Social history: Son and [id number] live with her. She mostly uses a wheelchair. Does not smoke or drink alcohol. Family history: COPD, hypertension, mother had bone cancer Physical examination: VITAL SIGNS: 98.1, 60, 20, 159/75, 99% room air GENERAL: BMI 31.5, laying in bed, awake EYES: Pupils equal. Conjunctiva normal. HEENT: External appearance of nose and ears normal, oral cavity grossly normal. NECK: JVD not raised; masses not palpable. HEART: First and second heart sounds are normal; no edema. LUNGS: Respiratory rate normal; clear to auscultation. ABDOMEN: Soft, nontender, liver spleen not palpable, no masses palpable. PSYCH: Alert and oriented x3; mood and affect . Anxiousl. NEUROLOGICAL: Cranial nerves grossly intact; no facial asymmetry, power and sensation grossly intact. LYMPHATICS: No lymph nodes palpable in the axilla and neck MUSCULOSKELETAL: Evidence of osteoarthritis especially in the hands INVESTIGATIONS, reviewed in the clinical context: White count 7.3 hemoglobin 13 platelets was 83 potassium 4.8. 25 creatinine 1.69 EKG tracing-atrial pacemaker ST segment changes Chest x-ray film personally reviewed by me-borderline cardiomegaly lung aly clear Assessment: -Near-syncope in a patient with known orthostatic hypertension. Which is not confirmed. Blood pressure did drop down to 87 systolic with lying down and lying down it was 170 -Chronic congestive heart failure from diastolic dysfunction EF 50-55% - sick sinus syndrome with a pacemaker -Diabetes mellitus type 2 chronically on insulin -Essential hypertension -Primary osteoarthritis -Depression otherwise specified -Persistent atrial fibrillation -Coronary artery disease prior history of stent -Chronic kidney disease stage III probably from nephrosclerosis -Chronic medical debility does use a wheelchair Plan: Patient options are limited. She is significant orthostatic. Blood pressure is on the higher side systolic head. We'll give LESLI stockings. Had some Florinef. Unfortunately blood pressure may go further up. Did talk to patient about fall precautions. We'll get a cardiogenic input. Prognosis guarded. 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 Right arm fracture 2 History of Any Multi-Drug Resistant Organisms: MRSA Date of last positivie culture/infection: 06/05/18 MDRO Source:: URINE Past Surgical History: Cholecystectomy, Heart Catheterization, Heart Catheterization With Stent, Hysterectomy, Pacemaker Additional Past Surgical History / Comment(s): Evacuation on intracranial hematoma and ressection of hemorrhagic mass, pacemaker 2016, PCI with stent 06/06/18, EGD/colonoscopy, R eye corneal implant/cataract removal, EGD 06/2018, colonoscopy, skin cancer removal. Past Anesthesia/Blood Transfusion Reactions: No Reported Reaction Additional Past Anesthesia/Blood Transfusion Reaction / Comment(s): . Date of Last Stent Placement:: 06/06/18 Type of Cardiac Device: Permanent Pacemaker Device Placement Date:: 04/2016 Past Psychological History: Depression Smoking Status: Never smoker Past Alcohol Use History: None Reported Past Drug Use History: None Reported - Past Family History Mother Family Medical History: Cancer, COPD, Hypertension Additional Family Medical History / Comment(s): Mother had bone cancer. Father Family Medical History: Cancer, Hypertension Additional Family Medical History / Comment(s): Father had skin cancer. Medications and Allergies Home Medications Medication Instructions Recorded Confirmed Type Albuterol Inhaler [Ventolin Hfa 2 puff INHALATION RT-Q6H PRN 03/27/18 12/09/18 History Inhaler] Calcium Carbonate 500 mg PO DAILY 03/27/18 12/09/18 History Ferrous Sulfate [Iron (65 MG 325 mg PO DAILY 03/27/18 12/09/18 History Elemental)] Labetalol [Trandate] 100 mg PO Q12H 03/27/18 12/09/18 History prednisoLONE ACETATE [Pred Forte 1 drop LEFT EYE DAILY 06/04/18 12/09/18 History 1%] Atorvastatin [Lipitor] 40 mg PO HS #90 tab 06/07/18 12/09/18 Rx Clopidogrel [Plavix] 75 mg PO DAILY #90 tab 06/07/18 12/09/18 Rx Isosorbide Mononitrate ER [Imdur] 30 mg PO DAILY #30 tab.er.24h 07/03/18 12/09/18 Rx levETIRAcetam [Keppra] 500 mg PO Q12HR 07/21/18 12/09/18 History Nitroglycerin Sl Tabs [Nitrostat] 0.4 mg SUBLINGUAL Q5M PRN tab 07/30/18 12/09/18 Rx Cyanocobalamin (Vitamin B-12) 1,000 mcg PO DAILY 09/01/18 12/09/18 History [Vitamin B-12] Insulin Glargine [Lantus] 30 unit SQ HS 09/01/18 12/09/18 History Sodium Chloride 5% Ophth Soln 1 drop BOTH EYES MOFR 09/01/18 12/09/18 History [Amanda 128] hydrALAZINE HCL [Apresoline] 50 mg PO TID 09/01/18 12/09/18 History Escitalopram [Lexapro] 20 mg PO DAILY 10/25/18 12/09/18 History Losartan [Cozaar] 25 mg PO DAILY tab 10/30/18 12/09/18 Rx Acetaminophen Tab [Tylenol Tab] 650 mg PO Q6H PRN 12/09/18 12/09/18 History Gabapentin [Neurontin] 300 mg PO DAILY 12/09/18 12/09/18 History Omeprazole [PriLOSEC] 20 mg PO DAILY 12/09/18 12/09/18 History QUEtiapine [SEROquel] 75 mg PO HS 12/09/18 12/09/18 History Allergies Allergy/AdvReac Type Severity Reaction Status Date / Time Latex, Natural Rubber Allergy Itching Verified 12/09/18 18:51 sulfamethoxazole Allergy Rash/Hives Verified 12/09/18 18:51 [From Bactrim] trimethoprim [From Bactrim] Allergy Rash/Hives Verified 12/09/18 18:51 Physical Exam Vitals: Vital Signs Temp Pulse Pulse Resp BP BP Pulse Ox 12/10/18 07:41 97.6 F 60 18 181/75 97 12/10/18 04:00 98.0 F 60 15 164/72 97 12/09/18 23:47 17 12/09/18 23:29 97.9 F 60 16 184/72 97 12/09/18 22:46 62 16 12/09/18 22:40 95 12/09/18 22:38 60 16 12/09/18 19:50 63 18 12/09/18 18:36 96 F L 63 18 183/105 96 12/09/18 18:27 65 16 167/66 98 12/09/18 16:00 62 16 177/65 98 12/09/18 14:20 98.1 F 60 20 159/75 99 Intake and Output 12/09/18 12/10/18 12/10/18 22:59 06:59 14:59 Intake Total 480 Balance 480 Intake: Oral 480 Other: Voiding Method Bedside Commode Bedside Commode # Voids 1 1 Results CBC & Chem 7: 12/09/18 15:11 12/09/18 15:11 Labs: Abnormal Lab Results - Last 24 Hours (Table) 12/09/18 12/09/18 12/09/18 Range/Units 15:11 15:11 16:00 MCHC 30.9 L (31.0-37.0) g/dL BUN 25 H (7-17) mg/dL Creatinine 1.69 H (0.52-1.04) mg/dL Glucose 162 H (74-99) mg/dL POC Glucose (mg/dL) (75-99) mg/dL Urine Protein Trace H (Negative) Ur Leukocyte Esterase Moderate H (Negative) Urine WBC 13 H (0-5) /hpf Urine Mucus Rare H (None) /hpf 12/09/18 Range/Units 22:17 MCHC (31.0-37.0) g/dL BUN (7-17) mg/dL Creatinine (0.52-1.04) mg/dL Glucose (74-99) mg/dL POC Glucose (mg/dL) 139 H (75-99) mg/dL Urine Protein (Negative) Ur Leukocyte Esterase (Negative) Urine WBC (0-5) /hpf Urine Mucus (None) /hpf Microbiology - Last 24 Hours (Table) 12/09/18 16:00 Urine Culture - Preliminary Urine,Voided Thrombosis Risk Factor Assmnt - Choose All That Apply Any of the Below Risk Factors Present?: Yes Each Factor Represents 1 point: Obesity (BMI >25) Other Risk Factors: Yes Each Risk Factor Represents 2 Points: Age 61-74 years Other congenital or acquired thrombophilia - If yes, enter type in comment: No Thrombosis Risk Factor Assessment Total Risk Factor Score: 3 Thrombosis Risk Factor Assessment Level: Moderate Risk
[2018-12-10] MEDS: ALBUTEROL NEBULIZED 2.5 MG/3 ML INHALATION PRN (19:46)
[2018-12-10 20:47] LABS: Glucose,Whole Blood 187 mg/dL (75-99)
[2018-12-10] MEDS: ATORVASTATIN 40 MG TAB PO SCH (21:14)
[2018-12-10] MEDS: QUEtiapine 25 MG TAB PO SCH (21:14)
[2018-12-10] MEDS: FLUDROCORTISONE 0.1 MG TAB PO SCH (21:14)
[2018-12-10] MEDS: INSULIN DETEMIR (LEVEMIR) 100 UNIT/ML SYR SQ SCH (21:15)
[2018-12-11] MEDS: ACETAMINOPHEN TAB 325 MG TAB PO PRN ×2 (01:33→20:56)
[2018-12-11 06:42] LABS: Glucose,Whole Blood 128 mg/dL (75-99)
[2018-12-11] MEDS: ALBUTEROL NEBULIZED 2.5 MG/3 ML INHALATION PRN ×3 (08:07→19:53)
--- NOTE | 2018-12-11 10:50 | P.CRDCN ---
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 She follows in the office with Dr. Hawk. We have been asked to see her in consultation for positive orthostatics and dizziness. She has been home from inpatient rehab for approximately 1-month. She lives with her son and [id number]. She was having physical therapy today at home and was walking with her walker to the kitchen. As she was walking she started feeling acute light headed like she was going to pass out. The PT brought a wheelchair to her and she sat down. There was no definite LOC however the whole episode she felt quite foggy. According to ER note her blood pressure prior to walking was in the 120's systolic, just after the event it was 90's systolic. Blood pressure on arrival was 159/75 heart rate 60. Orthostatic pressures checked this afternoon supine 170/71, sitting 101/62 and standing 87/47. Current daily cardiac medications include labetolol 100 mg BID, [id number] mg TID, imdur 30 mg daily, losartan 25 mg daily, plavix 75 mg daily and atrovvastatin 40 mg daily. Most recent echocardiogram 10/2018 reveals 50-55%, moderately dilated LA, trace- mild AR, mild MR, mild TR. She is currently receiving IV fluids at 60cc/hr. She is seen and examined sitting up in bed in no acute distress. She denies dizziness at rest however did experience a similar feeling when they checked orthostatics. She denies anginal type chest pain but does described a burning sensation in her throat after eating a meal. She also has mild exertional shortness of breath at times. She denies palpitations associated with her dizziness. EKG reveals atrial paced with a heart rate 60 with T-wave inversions and ST depression noted in all leads. Consistent with previous EKG. Chest x-ray is negative for an acute cardiopulmonary process. Laboratory data reviewed, WBC 7.3, hemoglobin 13, platelets 163, sodium 143, potassium 4.8, creatinine 1.69, troponin negative 1. At the time of my exam: CONSTITUTIONAL: Denies fever. Denies chills. EYES: Denies blurred vision. Denies vision changes. Denies eye pain. EARS, NOSE, MOUTH & THROAT: Denies headache. Denies sore throat. Denies ear pain. CARDIOVASCULAR: Denies chest pain. Complains of exertional shortness of breath. Denies orthopnea. Denies PND. Denies palpitations. RESPIRATORY: Denies cough. GASTROINTESTINAL: Denies abdominal pain. Denies diarrhea. Denies constipation. Denies nausea. Denies vomiting. MUSCULOSKELETAL: Denies myalgias. INTEGUMENTARY: Denies pruitis. Denies rash. NEUROLOGIC: Denies numbness. Denies tingling. Denies weakness. PSYCHIATRIC: Denies anxiety. Denies depression. ENDOCRINE: Denies fatigue. Denies weight change. Denies polydipsia. Denies polyurina. GENITOURINARY: Denies burning, hematuria or urgency with micturation. HEMATOLOGIC: Denies history of anemia. Denies bleeding. GENERAL: This is a 73-year-old female in no apparent distress at the time of my examination. HEENT: Head is atraumatic, normocephalic. Pupils are equal, round. Sclerae anicteric. Conjunctivae are clear. Mucous membranes of the mouth are moist. Neck is supple. There is no jugular venous distention. No carotid bruit is heard. LUNGS: Clear to auscultation no wheezes, rales or rhonchi. No chest wall tenderness is noted on palpation or with deep breathing. HEART: Regular rate and rhythm without murmurs, rubs or gallops. S1 and S2 heard. ABDOMEN: Soft, nontender. Bowel sounds are heard. No organomegaly noted. EXTREMITIES: No evidence of peripheral edema and no calf tenderness noted. VASCULAR: Radial and dorsalis pedis pulses palpated, no evidence of clubbing. NEUROLOGIC: Patient is awake, alert and oriented x3. ASSESSMENT Orthostatic hypotension Chest pain, atypical for angina. Exertional shortness of breath, clinically is euvolemic. Could be secondary to poor conditioning. Urinary tract infection History of CAD s/p stent placement to LAD 06/2018 Paroxysmal atrial fibrillation not on detention anticoagulation secondary to brain hemorrhage Sick sinus syndrome s/p permanent pacemaker with CITTIO History of brain hemorrage, tumor and resection 03/2018 Hypertension PLAN Continue gentle hydration. Hold imdur. Discontinue labetolol by weaning down to 50 mg BID and initiate on amlodipine. Losartan can be increased if blood pressure is elevated. Discontinue florinef and initiate on midodrine while awake. Recommend sleeping in the a sitting position. Apply LESLI hose bilaterally. Pacemaker interrogation complete and unremarkable with no events and normal function. Check orthostatic vital signs every shift. Continue to observe for another 24 hours. Thank you kindly for this consultation. Nurse Practitioner note has been reviewed, I agree with a documented findings and plan of care. Patient was seen and examined. Past Medical History Past Medical History: Atrial Fibrillation, Asthma, Coronary Artery Disease (CA D), Cancer, Heart Failure, CVA/TIA, Diabetes Mellitus, Hypertension, Osteoarthritis (OA), Renal Disease Additional Past Medical History / Comment(s): Paroxysmal Afib not on an ticoagulation due to prior brain bleed, brain mass with intracranial bleed/hematoma with surgery at [facility], seizure after brain surgery, asthma, IDDM type II, recent lower GI bleed/gastritis,gastric erosion, SSS with pacer, uterine cancer with surgery, skin cancer removals, C diff colitis, c olitis, chronic kidney disease, past L arm fracture. Right arm fracture 2 History of Any Multi-Drug Resistant Organisms: MRSA Date of last positivie culture/infection: 06/05/18 MDRO Source:: URINE Past Surgical History: Cholecystectomy, Heart Catheterization, Heart Catheterization With Stent, Hysterectomy, Pacemaker Additional Past Surgical History / Comment(s): Evacuation on intracranial hematoma and ressection of hemorrhagic mass, pacemaker 2016, PCI with stent 06/06/18, EGD/colonoscopy, R eye corneal implant/cataract removal, EGD 06/2018, colonoscopy, skin cancer removal. Past Anesthesia/Blood Transfusion Reactions: No Reported Reaction Additional Past Anesthesia/Blood Transfusion Reaction / Comment(s): . Date of Last Stent Placement:: 06/06/18 Type of Cardiac Device: Permanent Pacemaker Device Placement Date:: 04/2016 Past Psychological History: Depression Smoking Status: Never smoker Past Alcohol Use History: None Reported Past Drug Use History: None Reported - Past Family History Mother Family Medical History: Cancer, COPD, Hypertension Additional Family Medical History / Comment(s): Mother had bone cancer. Father Family Medical History: Cancer, Hypertension Additional Family Medical History / Comment(s): Father had skin cancer. Medications and Allergies Home Medications Medication Instructions Recorded Confirmed Type Albuterol Inhaler [Ventolin Hfa 2 puff INHALATION RT-Q6H PRN 03/27/18 12/09/18 History Inhaler] Calcium Carbonate 500 mg PO DAILY 03/27/18 12/09/18 History Ferrous Sulfate [Iron (65 MG 325 mg PO DAILY 03/27/18 12/09/18 History Elemental)] Labetalol [Trandate] 100 mg PO Q12H 03/27/18 12/09/18 History prednisoLONE ACETATE [Pred Forte 1 drop LEFT EYE DAILY 06/04/18 12/09/18 History 1%] Atorvastatin [Lipitor] 40 mg PO HS #90 tab 06/07/18 12/09/18 Rx Clopidogrel [Plavix] 75 mg PO DAILY #90 tab 06/07/18 12/09/18 Rx Isosorbide Mononitrate ER [Imdur] 30 mg PO DAILY #30 tab.er.24h 07/03/18 12/09/18 Rx levETIRAcetam [Keppra] 500 mg PO Q12HR 07/21/18 12/09/18 History Nitroglycerin Sl Tabs [Nitrostat] 0.4 mg SUBLINGUAL Q5M PRN tab 07/30/18 12/09/18 Rx Cyanocobalamin (Vitamin B-12) 1,000 mcg PO DAILY 09/01/18 12/09/18 History [Vitamin B-12] Insulin Glargine [Lantus] 30 unit SQ HS 09/01/18 12/09/18 History Sodium Chloride 5% Ophth Soln 1 drop BOTH EYES MOFR 09/01/18 12/09/18 History [Amanda 128] hydrALAZINE HCL [Apresoline] 50 mg PO TID 09/01/18 12/09/18 History Escitalopram [Lexapro] 20 mg PO DAILY 10/25/18 12/09/18 History Losartan [Cozaar] 25 mg PO DAILY tab 10/30/18 12/09/18 Rx Acetaminophen Tab [Tylenol Tab] 650 mg PO Q6H PRN 12/09/18 12/09/18 History Gabapentin [Neurontin] 300 mg PO DAILY 12/09/18 12/09/18 History Omeprazole [PriLOSEC] 20 mg PO DAILY 12/09/18 12/09/18 History QUEtiapine [SEROquel] 75 mg PO HS 12/09/18 12/09/18 History Allergies Allergy/AdvReac Type Severity Reaction Status Date / Time Latex, Natural Rubber Allergy Itching Verified 12/09/18 18:51 sulfamethoxazole Allergy Rash/Hives Verified 12/09/18 18:51 [From Bactrim] trimethoprim [From Bactrim] Allergy Rash/Hives Verified 12/09/18 18:51 Physical Exam Vitals: Vital Signs Temp Pulse Pulse Resp BP BP BP 12/10/18 11:56 170/71 101/62 12/10/18 07:41 97.6 F 60 18 181/75 12/10/18 04:00 98.0 F 60 15 164/72 12/09/18 23:47 17 12/09/18 23:29 97.9 F 60 16 184/72 12/09/18 22:46 62 16 12/09/18 22:40 12/09/18 22:38 60 16 12/09/18 19:50 63 18 12/09/18 18:36 96 F L 63 18 183/105 12/09/18 18:27 65 16 167/66 12/09/18 16:00 62 16 177/65 BP Pulse Ox 12/10/18 11:56 87/47 12/10/18 07:41 97 12/10/18 04:00 97 12/09/18 23:47 12/09/18 23:29 97 12/09/18 22:46 12/09/18 22:40 95 12/09/18 22:38 12/09/18 19:50 12/09/18 18:36 96 12/09/18 18:27 98 12/09/18 16:00 98 Intake and Output 12/09/18 12/10/18 12/10/18 22:59 06:59 14:59 Intake Total 480 Balance 480 Intake: Oral 480 Other: Voiding Method Bedside Commode Bedside Commode # Voids 1 1 1 # Bowel Movements 1 Results 12/09/18 15:11 12/09/18 15:11 Cardiac Enzymes 12/09/18 12/09/18 Range/Units 15:11 15:11 AST 19 (14-36) U/L Troponin I 0.013 (0.000-0.034) ng/mL CBC 12/09/18 Range/Units 15:11 WBC 7.3 (3.8-10.6) k/uL RBC 4.64 (3.80-5.40) m/uL Hgb 13.0 (11.4-16.0) gm/dL Hct 42.2 (34.0-46.0) % Plt Count 163 (150-450) k/uL Comprehensive Metabolic Panel 12/09/18 Range/Units 15:11 Sodium 143 (137-145) mmol/L Potassium 4.8 (3.5-5.1) mmol/L Chloride 105 (98-107) mmol/L Carbon Dioxide 29 (22-30) mmol/L BUN 25 H (7-17) mg/dL Creatinine 1.69 H (0.52-1.04) mg/dL Glucose 162 H (74-99) mg/dL Calcium 9.4 (8.4-10.2) mg/dL AST 19 (14-36) U/L ALT 16 (9-52) U/L Alkaline Phosphatase 73 (38-126) U/L Total Protein 6.8 (6.3-8.2) g/dL Albumin 4.4 (3.5-5.0) g/dL Current Medications Generic Name Dose Route Start Last Admin Trade Name Freq PRN Reason Stop Dose Admin Acetaminophen 650 mg 12/09/18 17:54 12/10/18 08:59 Tylenol Tab PO 650 mg Q6HR PRN Administration Mild Pain or Fever > 100.5 Albuterol Sulfate 2.5 mg 12/09/18 20:38 12/09/18 22:37 Ventolin Nebulized INHALATION 2.5 mg RT-Q6H PRN Administration Shortness Of Breath Atorvastatin Calcium 40 mg 12/09/18 21:00 12/09/18 22:19 Lipitor PO 40 mg HS ALEXSANDER Administration Calcium Carbonate/Glycine 500 mg 12/10/18 09:00 12/10/18 08:36 Tums PO 500 mg DAILY ALEXSANDER Administration Clopidogrel Bisulfate 75 mg 12/10/18 09:00 12/10/18 08:36 Plavix PO 75 mg DAILY ALEXSANDER Administration Cyanocobalamin 1,000 mcg 12/10/18 09:00 12/10/18 08:36 Vitamin B-12 PO 1,000 mcg DAILY ALEXSANDER Administration Escitalopram Oxalate 20 mg 12/10/18 09:00 12/10/18 08:36 Lexapro PO 20 mg DAILY ALEXSANDER Administration Ferrous Sulfate 325 mg 12/10/18 09:00 12/10/18 08:37 Feosol PO 325 mg DAILY ALEXSANDER Administration Gabapentin 300 mg 12/10/18 09:00 12/10/18 08:37 Neurontin PO 300 mg DAILY ALEXSANDER Administration Hydralazine HCl 50 mg 12/09/18 22:00 12/10/18 08:36 Apresoline PO 50 mg TID ALEXSANDER Administration Sodium Chloride 1,000 mls @ 60 mls/hr 12/09/18 18:00 12/10/18 11:44 Saline 0.9% IV 60 mls/hr .[id number] ALEXSANDER Administration Ceftriaxone Sodium 1 gm/ 50 mls @ 100 mls/hr 12/10/18 09:00 12/10/18 08:34 Sodium Chloride IVPB 100 mls/hr Q24HR ALEXSANDER Administration Insulin Detemir 30 unit 12/09/18 21:00 12/09/18 22:18 Levemir SQ 30 unit HS ALEXSANDER Administration Isosorbide Mononitrate 30 mg 12/10/18 09:00 12/10/18 08:36 Imdur PO 30 mg DAILY ALEXSANDER Administration Labetalol HCl 100 mg 12/09/18 21:00 12/10/18 08:37 Trandate PO 100 mg Q12H ALEXSANDER Administration Levetiracetam 500 mg 12/09/18 21:00 12/10/18 08:36 Keppra PO 500 mg Q12HR ALEXSANDER Administration Losartan Potassium 25 mg 12/10/18 09:00 12/10/18 08:36 Cozaar PO 25 mg DAILY ALEXSANDER Administration Naloxone HCl 0.2 mg 12/09/18 17:54 Narcan IV Q2M PRN Opioid Reversal Nitroglycerin 0.4 mg 12/09/18 20:38 Nitrostat SUBLINGUAL Q5M PRN Chest Pain Ondansetron HCl 4 mg 12/09/18 17:54 Zofran IVP Q8HR PRN Nausea And Vomiting Pantoprazole Sodium 40 mg 12/10/18 07:30 12/10/18 08:37 Protonix PO 40 mg AC-[id number] ALEXSANDER Administration Prednisolone Acetate 1 drops 12/10/18 09:00 12/10/18 08:35 Pred Forte 1% LEFT EYE 1 drops DAILY ALEXSANDER Administration Quetiapine Fumarate 75 mg 12/09/18 21:00 12/09/18 22:20 Seroquel PO 75 mg HS ALEXSANDER Administration Sodium Chloride 1 drops 12/12/18 09:00 Amanda 128 BOTH EYES MOFR ALEXSANDER Intake and Output 12/09/18 12/10/18 12/10/18 22:59 06:59 14:59 Intake Total 480 Balance 480 Intake: Oral 480 Other: Voiding Method Bedside Commode Bedside Commode # Voids 1 1 1 # Bowel Movements 1 12/09/18 15:11 12/09/18 15:11
[2018-12-11 11:32] LABS: Glucose,Whole Blood 112 mg/dL (75-99)
[2018-12-11] MEDS: hydrALAZINE HCL 50 MG TAB PO SCH ×3 (12:05→20:55)
[2018-12-11] MEDS: GABAPENTIN 300 MG CAP PO SCH (12:05)
[2018-12-11] MEDS: LOSARTAN 25 MG TAB PO SCH (12:05)
[2018-12-11] MEDS: CLOPIDOGREL 75 MG TAB PO SCH (12:05)
[2018-12-11] MEDS: PANTOPRAZOLE 40 MG TABLET PO SCH (12:05)
[2018-12-11] MEDS: CYANOCOBALAMIN 500 MCG TAB PO SCH (12:06)
[2018-12-11] MEDS: FERROUS SULFATE 325 MG TAB PO SCH (12:06)
[2018-12-11] MEDS: CALCIUM CARBONATE 500 MG CHEWABLE PO SCH (12:06)
[2018-12-11] MEDS: levETIRAcetam 500 MG TAB PO SCH ×2 (12:06→20:55)
[2018-12-11] MEDS: ESCITALOPRAM 20 MG TAB PO SCH (12:06)
[2018-12-11] MEDS: amLODIPine 5 MG TAB PO SCH (12:06)
[2018-12-11] MEDS: prednisoLONE ACETATE 1% OPHTH DROPS 5 ML BTL LEFT EYE SCH (14:28)
[2018-12-11] MEDS: MIDODRINE 5 MG TAB PO SCH ×2 (14:40→18:58)
[2018-12-11 16:40] LABS: Glucose,Whole Blood 130 mg/dL (75-99)
[2018-12-11] MEDS: LABETALOL 100 MG TAB PO SCH ×2 (20:43→20:56)
[2018-12-11] MEDS: FLUDROCORTISONE 0.1 MG TAB PO SCH (20:43)
[2018-12-11 20:51] LABS: Glucose,Whole Blood 165 mg/dL (75-99)
[2018-12-11] MEDS: QUEtiapine 25 MG TAB PO SCH (20:56)
[2018-12-11] MEDS: ATORVASTATIN 40 MG TAB PO SCH (20:56)
[2018-12-11] MEDS: INSULIN DETEMIR (LEVEMIR) 100 UNIT/ML SYR SQ SCH (21:00)
--- NOTE | 2018-12-11 22:10 | P.PN ---
Progress Note - Text Progress Note Date: 12/11/18 Chief Complaint: Near-syncope Hospital course: This is a pleasant 72-year-old patient follows with Dr. escamilla. 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 Lives with her son and [id number]. Does use a wheelchair. 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 She was sent down. She nearly passed out while sitting in a chair. Occ asionally getting heartburn. No chest pain. She does get dizzy with standing. Patient has known orthostatic hypertension. There is no seizure activity. The episode was very brief. Patient admitted with orthostatic hypertension. Patient's had this for a while. Seen by cardiology. Medications are being adjusted. Patient is feeling a bit better. Review of systems: Was done for constitutional, cardiovascular, GI, pulmonary. relevant finding as above Active Medications Acetaminophen (Tylenol Tab) 650 mg PO Q6HR PRN PRN Reason: Mild Pain or Fever > 100.5 Last Admin: 12/11/18 20:56 Dose: 650 mg Documented by: Albuterol Sulfate (Ventolin Nebulized) 2.5 mg INHALATION RT-Q6H PRN PRN Reason: Shortness Of Breath Last Admin: 12/11/18 19:53 Dose: 2.5 mg Documented by: Amlodipine Besylate (Norvasc) 5 mg PO DAILY [facility] Last Admin: 12/11/18 12:06 Dose: 5 mg Documented by: Atorvastatin Calcium (Lipitor) 40 mg PO [facility] Last Admin: 12/11/18 20:56 Dose: 40 mg Documented by: Calcium Carbonate/Glycine (Tums) 500 mg PO DAILY [facility] Last Admin: 12/11/18 12:06 Dose: 500 mg Documented by: Clopidogrel Bisulfate (Plavix) 75 mg PO DAILY [facility] Last Admin: 12/11/18 12:05 Dose: 75 mg Documented by: Cyanocobalamin (Vitamin B-12) 1,000 mcg PO DAILY [facility] Last Admin: 12/11/18 12:06 Dose: 1,000 mcg Documented by: Escitalopram Oxalate (Lexapro) 20 mg PO DAILY [facility] Last Admin: 12/11/18 12:06 Dose: 20 mg Documented by: Ferrous Sulfate (Feosol) 325 mg PO DAILY [facility] Last Admin: 12/11/18 12:06 Dose: 325 mg Documented by: Gabapentin (Neurontin) 300 mg PO DAILY [facility] Last Admin: 12/11/18 12:05 Dose: 300 mg Documented by: Hydralazine HCl (Apresoline) 50 mg PO TID [facility] Last Admin: 12/11/18 20:55 Dose: 50 mg Documented by: Ceftriaxone Sodium 1 gm/ (Sodium Chloride) 50 mls @ 100 mls/hr IVPB Q24HR [facility] Last Admin: 12/11/18 12:04 Dose: 100 mls/hr Documented by: Insulin Detemir (Levemir) 30 unit SQ [facility] Last Admin: 12/11/18 21:00 Dose: 30 unit Documented by: Labetalol HCl (Trandate) 50 mg PO BID [facility] Last Admin: 12/11/18 20:56 Dose: 50 mg Documented by: Levetiracetam (Keppra) 500 mg PO Q12HR [facility] Last Admin: 12/11/18 20:55 Dose: 500 mg Documented by: Losartan Potassium (Cozaar) 25 mg PO DAILY [facility] Last Admin: 12/11/18 12:05 Dose: 25 mg Documented by: Midodrine (Proamatine) 2.5 mg PO AC-TID [facility] Last Admin: 12/11/18 18:58 Dose: 2.5 mg Documented by: Naloxone HCl (Narcan) 0.2 mg IV Q2M PRN PRN Reason: Opioid Reversal Nitroglycerin (Nitrostat) 0.4 mg SUBLINGUAL Q5M PRN PRN Reason: Chest Pain Ondansetron HCl (Zofran) 4 mg IVP Q8HR PRN PRN Reason: Nausea And Vomiting Pantoprazole Sodium (Protonix) 40 mg PO AC-BRKFST [facility] Last Admin: 12/11/18 12:05 Dose: 40 mg Documented by: Prednisolone Acetate (Pred Forte 1%) 1 drops LEFT EYE DAILY [facility] Last Admin: 12/11/18 14:28 Dose: Not Given Documented by: Quetiapine Fumarate (Seroquel) 75 mg PO HS [facility] Last Admin: 12/11/18 20:56 Dose: 75 mg Documented by: Sodium Chloride (Amanda 128) 1 drops BOTH EYES MOFR [facility] Physical examination: VITAL SIGNS: 98.1, 61, 18, 157/61, 94% room air GENERAL: Sitting up feeling comfortable EYES: Pupils equal. Conjunctiva normal. HEENT: External appearance of nose and ears normal, oral cavity grossly normal. NECK: JVD not raised; masses not palpable. HEART: First and second heart sounds are normal; no edema. LUNGS: Respiratory rate normal; clear to auscultation. ABDOMEN: Soft, nontender, liver spleen not palpable, no masses palpable. PSYCH: Alert and oriented x3; mood and affect . Anxiousl. MUSCULOSKELETAL: Evidence of osteoarthritis especially in the hands INVESTIGATIONS, reviewed in the clinical context: Accu-Cheks noted Previous testing: White count 7.3 hemoglobin 13 platelets was 83 potassium 4.8. 25 creatinine 1.69 EKG tracing-atrial pacemaker ST segment changes Chest x-ray film personally reviewed by me-borderline cardiomegaly lung aly clear Assessment: -Near-syncope in a patient with known orthostatic hypertension. Medications are being adjusted by cardiogenic. -Chronic congestive heart failure from diastolic dysfunction EF 50-55% - sick sinus syndrome with a pacemaker -Diabetes mellitus type 2 chronically on insulin -Essential hypertension -Primary osteoarthritis -Depression otherwise specified -Persistent atrial fibrillation -Coronary artery disease prior history of stent -Chronic kidney disease stage III probably from nephrosclerosis -Chronic medical debility does use a wheelchair Plan: Seen by cardiology earlier today. Medications are being rearranged. We'll see how she does. Patient's problem is chronic oftentimes this condition difficult to treat. Care discussed with the patient.
[2018-12-12 06:39] LABS: Glucose,Whole Blood 134 mg/dL (75-99)
[2018-12-12] MEDS: CALCIUM CARBONATE 500 MG CHEWABLE PO SCH (08:03)
[2018-12-12] MEDS: CYANOCOBALAMIN 500 MCG TAB PO SCH (08:03)
[2018-12-12] MEDS: PANTOPRAZOLE 40 MG TABLET PO SCH (08:03)
[2018-12-12] MEDS: FERROUS SULFATE 325 MG TAB PO SCH (08:03)
[2018-12-12] MEDS: CLOPIDOGREL 75 MG TAB PO SCH (08:03)
[2018-12-12] MEDS: ESCITALOPRAM 20 MG TAB PO SCH (08:03)
[2018-12-12] MEDS: levETIRAcetam 500 MG TAB PO SCH (08:03)
[2018-12-12] MEDS: LOSARTAN 25 MG TAB PO SCH (08:03)
[2018-12-12] MEDS: amLODIPine 5 MG TAB PO SCH (08:03)
[2018-12-12] MEDS: GABAPENTIN 300 MG CAP PO SCH (08:03)
[2018-12-12] MEDS: MIDODRINE 5 MG TAB PO SCH ×3 (08:04→17:22)
[2018-12-12] MEDS: hydrALAZINE HCL 50 MG TAB PO SCH ×2 (08:04→16:11)
[2018-12-12] MEDS: LABETALOL 100 MG TAB PO SCH (08:04)
[2018-12-12] MEDS: prednisoLONE ACETATE 1% OPHTH DROPS 5 ML BTL LEFT EYE SCH (08:05)
[2018-12-12] MEDS ORDERED: SODIUM CHLORIDE 5% OPHTH DROPS 15 ML BTL BOTH EYES SCH (09:00)
--- NOTE | 2018-12-12 09:56 | P.PN ---
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 She follows in the office with Dr. Hawk. She is seen and examined sitting up in bed in no acute distress. She has a flat affect today. She states she has been up and attempting to use her walker however she continues to feel dizzy with activity. Orthostatics this morning do reveal and change her in blood pressure with positions changes however she does not get hypotensive. Lowest blood pressure is 129/62. Heart rate remains stable in the 60's. Currently maintained on amlodipine 5 mg daily, atorvastatin 40 mg daily, plavix 75 mg daily, hydralazine 50 mg TID, labetolol 50 mg BID, losartan 25 mg daily and midodrine 2.5 mg TID before meals. GENERAL: This is a 73-year-old female in no apparent distress at the time of my examination. HEENT: Head is atraumatic, normocephalic. Pupils are equal, round. Sclerae anicteric. Conjunctivae are clear. Mucous membranes of the mouth are moist. Neck is supple. There is no jugular venous distention. No carotid bruit is heard. LUNGS: Clear to auscultation no wheezes, rales or rhonchi. No chest wall tenderness is noted on palpation or with deep breathing. HEART: Regular rate and rhythm without murmurs, rubs or gallops. S1 and S2 heard. EXTREMITIES: No evidence of peripheral edema and no calf tenderness noted. ASSESSMENT Orthostatic hypotension, improved Chest pain, atypical for angina. Exertional shortness of breath, clinically is euvolemic. Could be secondary to poor conditioning. Urinary tract infection History of CAD s/p stent placement to LAD 06/2018 Paroxysmal atrial fibrillation not on extermination supervisor anticoagulation secondary to brain hemorrhage Sick sinus syndrome s/p permanent pacemaker with Doculogy History of brain hemorrage, tumor and resection 03/2018 Hypertension PLAN Stable from a cardiac perspective. Discussed with her changing positions slowly, wearing LESLI hose and sleeping in a semi-upright position. Follow up with Dr. Hawk in 1-week. Nurse Practitioner note has been reviewed, I agree with a documented findings and plan of care. Patient was seen and examined. Objective - Vital Signs Vital signs: Vital Signs Temp 97.7 F 12/12/18 07:00 Pulse 61 12/12/18 08:00 Resp 18 12/12/18 08:00 BP 184/60 12/12/18 07:00 Pulse Ox 95 12/12/18 07:00 Intake & Output 12/11/18 12/12/18 12/12/18 18:59 06:59 18:59 Intake Total 480 236 Output Total 300 Balance 180 236 Weight 85.729 kg Intake: Oral 480 236 Output: Urine 300 Other: Voiding Method Bedside Commode Bedside Commode Bedside Commode # Voids 1 1 # Bowel Movements 1 1 - Labs CBC & Chem 7: 12/09/18 15:11 12/09/18 15:11 Labs: Abnormal Lab Results - Last 24 Hours (Table) 12/11/18 12/11/18 12/11/18 Range/Units 11:29 16:37 20:49 POC Glucose (mg/dL) 112 H 130 H 165 H (75-99) mg/dL 12/12/18 Range/Units 06:33 POC Glucose (mg/dL) 134 H (75-99) mg/dL
[2018-12-12 11:21] VITALS: BP 142/71; TEMP 97.8
[2018-12-12] MEDS: ALBUTEROL NEBULIZED 2.5 MG/3 ML INHALATION PRN (11:33)
[2018-12-12 11:36] VITALS: RESP 16
[2018-12-12 11:41] LABS: Glucose,Whole Blood 125 mg/dL (75-99)
[2018-12-12 11:52] VITALS: PULSE 66
--- NOTE | 2018-12-12 20:06 | P.DS ---
Providers Date of admission: 12/11/18 09:16 Expected date of discharge: 12/12/18 Attending physician: Jhonathan Hatfield Consults: 12/10/18 13:59 Consult Physician Routine Consulting Provider: Jazmine Alves Consult Reason/Comments: lightheaded, positive orthostatics Do you want consulting provider notified?: Already Contacted [facility] Course: Chief Complaint: Near-syncope Hospital course: This is a pleasant 72-year-old patient follows with Dr. escamilla. 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 Lives with her son and [id number]. Does use a wheelchair. 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 She was sent down. She nearly passed out while sitting in a chair. Occasionally getting heartburn. No chest pain. She does get dizzy with standing. Patient has known orthostatic hypertension. There is no seizure activity. The episode was very brief. Patient admitted with orthostatic hypertension. Patient's had this for a while. Seen by cardiology. Medications are being adjusted. Seen by PTOT. Seen by planner internship. [place] to be okay to go home. Cleared by cardiology. Consultation: Dr. VC Alves from cardiology Physical examination: VITAL SIGNS: 97.8, 66, 16, 142 was 71 GENERAL: Sitting up more comfortable today EYES: Pupils equal. Conjunctiva normal. HEENT: External appearance of nose and ears normal, oral cavity grossly normal. NECK: JVD not raised; masses not palpable. HEART: First and second heart sounds are normal; no edema. LUNGS: Respiratory rate normal; clear to auscultation. ABDOMEN: Soft, nontender, liver spleen not palpable, no masses palpable. PSYCH: Alert and oriented x3; mood and affect . Anxiousl. MUSCULOSKELETAL: Evidence of osteoarthritis especially in the hands INVESTIGATIONS, reviewed in the clinical context: Accu-Cheks noted Previous testing: White count 7.3 hemoglobin 13 platelets was 83 potassium 4.8. 25 creatinine 1.69 EKG tracing-atrial pacemaker ST segment changes Chest x-ray film personally reviewed by me-borderline cardiomegaly lung aly clear Discharge diagnosis: -Near-syncope in a patient with known orthostatic hypertension. Medications are being adjusted by cardiology. -Chronic congestive heart failure from diastolic dysfunction EF 50-55% - sick sinus syndrome with a pacemaker -Diabetes mellitus type 2 chronically on insulin -Essential hypertension -Primary osteoarthritis -Depression otherwise specified -Persistent atrial fibrillation -Coronary artery disease prior history of stent -Chronic kidney disease stage III probably from nephrosclerosis -Chronic medical debility does use a wheelchair Disposition: Home Patient Condition at Discharge: Stable Plan - Discharge Summary Discharge Rx Participant: No New Discharge Prescriptions: New Cefuroxime Axetil [Ceftin] 500 mg PO BID 3 Days #6 tab amLODIPine [Norvasc] 5 mg PO DAILY #30 tab Midodrine [ProAmatine] 2.5 mg PO AC-TID #90 tab Continue Calcium Carbonate 500 mg PO DAILY Ferrous Sulfate [Iron (65 MG Elemental)] 325 mg PO DAILY Albuterol Inhaler [Ventolin Hfa Inhaler] 2 puff INHALATION RT-Q6H PRN PRN Reason: Shortness Of Breath prednisoLONE ACETATE [Pred Forte 1%] 1 drop LEFT EYE DAILY Atorvastatin [Lipitor] 40 mg PO HS #90 tab Clopidogrel [Plavix] 75 mg PO DAILY #90 tab Isosorbide Mononitrate ER [Imdur] 30 mg PO DAILY #30 tab.er.24h levETIRAcetam [Keppra] 500 mg PO Q12HR Nitroglycerin Sl Tabs [Nitrostat] 0.4 mg SUBLINGUAL Q5M PRN tab PRN Reason: Chest Pain Insulin Glargine [Lantus] 30 unit SQ HS Cyanocobalamin (Vitamin B-12) [Vitamin B-12] 1,000 mcg PO DAILY Sodium Chloride 5% Ophth Soln [Amanda 128] 1 drop BOTH EYES MOFR hydrALAZINE HCL [Apresoline] 50 mg PO TID Escitalopram [Lexapro] 20 mg PO DAILY Losartan [Cozaar] 25 mg PO DAILY tab Acetaminophen Tab [Tylenol] 650 mg PO Q6H PRN PRN Reason: Pain QUEtiapine [SEROquel] 75 mg PO HS Omeprazole [PriLOSEC] 20 mg PO DAILY Gabapentin [Neurontin] 300 mg PO DAILY Changed Labetalol [Trandate] 50 mg PO Q12H #0 Discharge Medication List Albuterol Inhaler [Ventolin Hfa Inhaler] 2 puff INHALATION RT-Q6H PRN 03/27/18 [History] Calcium Carbonate 500 mg PO DAILY 03/27/18 [History] Ferrous Sulfate [Iron (65 MG Elemental)] 325 mg PO DAILY 03/27/18 [History] prednisoLONE ACETATE [Pred Forte 1%] 1 drop LEFT EYE DAILY 06/04/18 [History] Atorvastatin [Lipitor] 40 mg PO HS #90 tab 06/07/18 [Rx] Clopidogrel [Plavix] 75 mg PO DAILY #90 tab 06/07/18 [Rx] Isosorbide Mononitrate ER [Imdur] 30 mg PO DAILY #30 tab.er.24h 07/03/18 [Rx] levETIRAcetam [Keppra] 500 mg PO Q12HR 07/21/18 [History] Nitroglycerin Sl Tabs [Nitrostat] 0.4 mg SUBLINGUAL Q5M PRN tab 07/30/18 [Rx] Cyanocobalamin (Vitamin B-12) [Vitamin B-12] 1,000 mcg PO DAILY 09/01/18 [History] Insulin Glargine [Lantus] 30 unit SQ HS 09/01/18 [History] Sodium Chloride 5% Ophth Soln [Amanda 128] 1 drop BOTH EYES MOFR 09/01/18 [History] hydrALAZINE HCL [Apresoline] 50 mg PO TID 09/01/18 [History] Escitalopram [Lexapro] 20 mg PO DAILY 10/25/18 [History] Losartan [Cozaar] 25 mg PO DAILY tab 10/30/18 [Rx] Acetaminophen Tab [Tylenol] 650 mg PO Q6H PRN 12/09/18 [History] Gabapentin [Neurontin] 300 mg PO DAILY 12/09/18 [History] Omeprazole [PriLOSEC] 20 mg PO DAILY 12/09/18 [History] QUEtiapine [SEROquel] 75 mg PO HS 12/09/18 [History] Cefuroxime Axetil [Ceftin] 500 mg PO BID 3 Days #6 tab 12/12/18 [Rx] Labetalol [Trandate] 50 mg PO Q12H #0 12/12/18 [Rx] Midodrine [ProAmatine] 2.5 mg PO AC-TID #90 tab 12/12/18 [Rx] amLODIPine [Norvasc] 5 mg PO DAILY #30 tab 12/12/18 [Rx] Follow up Appointment(s)/Referral(s): Jaiden Hawk MD [STAFF PHYSICIAN] - 12/22/18 10:30 am (please keep appointment for Dec 22, 2018 at 10:30.) [facility], [NON-STAFF] - Jas Quinn MD [Primary Care Provider] - 1-2 days
== END 2018-12-12 05:00 | disposition home health service (06) | DRG 312 ==
LOC: EC 14:17 → 1SOBS 17:58 → OBSVTOIN 12-11 09:16
PROVIDERS: ADMIT Hospitalist; ATTEND Hospitalist
DX: I95.1 Orthostatic hypotension (principal); C79.31 Secondary malignant neoplasm of brain; I13.0 Hypertensive heart and chronic kidney disease with heart failure and stage 1 through stage 4 chronic kidney disease, or unspecified chronic kidney disease; I50.32 Chronic diastolic (congestive) heart failure; N39.0 Urinary tract infection, site not specified; I48.19 Other persistent atrial fibrillation; E11.22 Type 2 diabetes mellitus with diabetic chronic kidney disease; E86.0 Dehydration; F32.9 Major depressive disorder, single episode, unspecified; I25.10 Atherosclerotic heart disease of native coronary artery without angina pectoris; Z86.79 Personal history of other diseases of the circulatory system; J45.909 Unspecified asthma, uncomplicated; M19.90 Unspecified osteoarthritis, unspecified site; N18.3 Chronic kidney disease, stage 3 (moderate); R56.9 Unspecified convulsions; Z79.02 Long term (current) use of antithrombotics/antiplatelets; Z79.4 Long term (current) use of insulin; Z79.82 Long term (current) use of aspirin; Z79.899 Other long term (current) drug therapy; Z80.8 Family history of malignant neoplasm of other organs or systems; Z82.49 Family history of ischemic heart disease and other diseases of the circulatory system; Z82.5 Family history of asthma and other chronic lower respiratory diseases; Z85.42 Personal history of malignant neoplasm of other parts of uterus; Z85.828 Personal history of other malignant neoplasm of skin; Z86.73 Personal history of transient ischemic attack (TIA), and cerebral infarction without residual deficits; Z87.11 Personal history of peptic ulcer disease; Z90.710 Acquired absence of both cervix and uterus; Z95.0 Presence of cardiac pacemaker; Z95.5 Presence of coronary angioplasty implant and graft; Z86.14 Personal history of Methicillin resistant Staphylococcus aureus infection; Z88.2 Allergy status to sulfonamides; Z91.040 Latex allergy status
CPT/HCPCS: 36415; 71046; 80053; 81001; 83880; 84484; 85025; 85379; 87086; 93005; 94640; 94760; 96360; 96361; 99285

== ENCOUNTER 2019-01-11 13:08 | Inpatient (IN) | payer MEDICARE ==
[2019-01-11] MEDS ORDERED: SODIUM CHLORIDE 0.9% 500 ML 500 ML IV ONE (14:40)
--- NOTE | 2019-01-11 14:40 | ED ---
Dizziness HPI - General Chief Complaint: Dizziness Stated Complaint: Dizziness Time Seen by Provider: 01/11/19 13:20 Source: patient, family Mode of arrival: wheelchair Limitations: no limitations - History of Present Illness Initial Comments: The patient is a 73-year-old female with past medical history of A. fib, diabetes, CVA and orthostatic hypotension who presents to the emergency room with reported presyncope. She states that this is a chronic problem for her. States that when she gets up to ambulate she feels as if she is to pass out. Her family at bedside states that they have had to catch her multiple times that she did go to pass out. She was recently hospitalized in December for similar complaints. They did adjust her medications. She does have diagnosed orthostatic hypotension. States that she did feel well for a while however the past 2 days she has "felt terrible". She's had difficulty ambulating. She reports to chronic neck pain. No lateralizing symptoms. Denies any numbness or paresthesias in her upper or lower extremity. No fevers or chills. Denies nausea or vomiting. There are no alleviating, precipitating or modifying factors - Related Data Home Medications Medication Instructions Recorded Confirmed Albuterol Inhaler [Ventolin Hfa 2 puff INHALATION RT-Q6H PRN 03/27/18 01/11/19 Inhaler] Ferrous Sulfate [Iron (65 MG 325 mg PO DAILY 03/27/18 01/11/19 Elemental)] levETIRAcetam [Keppra] 500 mg PO Q12HR 07/21/18 01/11/19 Insulin Glargine [Lantus] 30 unit SQ HS 09/01/18 01/11/19 Sodium Chloride 5% Ophth Soln 1 drop RIGHT EYE MOFR 09/01/18 01/11/19 [Amanda 128] hydrALAZINE HCL [Apresoline] 50 mg PO TID PRN 09/01/18 01/11/19 Escitalopram [Lexapro] 20 mg PO DAILY 10/25/18 01/11/19 Acetaminophen Tab [Tylenol] 650 mg PO Q6H PRN 12/09/18 01/11/19 QUEtiapine [SEROquel] 50 mg PO HS 12/09/18 01/11/19 Calcium Carbonate [Calcium] 600 mg PO DAILY 01/11/19 01/11/19 Cyanocobalamin [Vitamin B-12] 500 mcg PO DAILY 01/11/19 01/11/19 QUEtiapine FUMARATE [SEROquel] 25 mg PO HS 01/11/19 01/11/19 Previous Rx's Medication Instructions Recorded Atorvastatin [Lipitor] 40 mg PO HS #90 tab 06/07/18 Clopidogrel [Plavix] 75 mg PO DAILY #90 tab 06/07/18 Nitroglycerin Sl Tabs [Nitrostat] 0.4 mg SUBLINGUAL Q5M PRN tab 07/30/18 Midodrine [ProAmatine] 2.5 mg PO AC-TID #90 tab 12/12/18 Allergies Allergy/AdvReac Type Severity Reaction Status Date / Time Latex, Natural Rubber Allergy Itching Verified 01/11/19 17:44 sulfamethoxazole Allergy Rash/Hives Verified 01/11/19 17:44 [From Bactrim] trimethoprim [From Bactrim] Allergy Rash/Hives Verified 01/11/19 17:44 Review of Systems ROS Statement: Those systems with pertinent positive or pertinent negative responses have been documented in the HPI. ROS Other: All systems not noted in ROS Statement are negative. 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 Right arm fracture 2 History of Any Multi-Drug Resistant Organisms: MRSA Date of last positivie culture/infection: 06/05/18 MDRO Source:: URINE Past Surgical History: Cholecystectomy, Heart Catheterization, Heart Catheterization With Stent, Hysterectomy, Pacemaker Additional Past Surgical History / Comment(s): Evacuation on intracranial hematoma and ressection of hemorrhagic mass, pacemaker 2016, PCI with stent 06/06/18, EGD/colonoscopy, R eye corneal implant/cataract removal, EGD 06/2018, colonoscopy, skin cancer removal. Past Anesthesia/Blood Transfusion Reactions: No Reported Reaction Additional Past Anesthesia/Blood Transfusion Reaction / Comment(s): . Date of Last Stent Placement:: 06/06/18 Type of Cardiac Device: Permanent Pacemaker Device Placement Date:: 04/2016 Past Psychological History: Depression Smoking Status: Never smoker Past Alcohol Use History: None Reported Past Drug Use History: None Reported - Past Family History Mother Family Medical History: Cancer, COPD, Hypertension Additional Family Medical History / Comment(s): Mother had bone cancer. Father Family Medical History: Cancer, Hypertension Additional Family Medical History / Comment(s): Father had skin cancer. General Exam Limitations: no limitations General appearance: alert, in no apparent distress Head exam: Present: atraumatic, normocephalic, normal inspection Eye exam: Present: normal appearance, PERRL, EOMI. Absent: scleral icterus, co njunctival injection, periorbital swelling ENT exam: Present: normal exam, mucous membranes moist Neck exam: Present: normal inspection. Absent: tenderness, meningismus, lymphadenopathy Respiratory exam: Present: normal lung sounds bilaterally. Absent: respiratory distress, wheezes, rales, rhonchi, stridor Cardiovascular Exam: Present: regular rate, normal rhythm, normal heart sounds. Absent: systolic murmur, diastolic murmur, rubs, gallop, clicks GI/Abdominal exam: Present: soft, normal bowel sounds. Absent: distended, tenderness, guarding, rebound, rigid Extremities exam: Present: normal inspection, full ROM, normal capillary refill. Absent: tenderness, pedal edema, joint swelling, calf tenderness Back exam: Present: normal inspection Neurological exam: Present: alert, oriented X3, CN II-XII intact Psychiatric exam: Present: normal affect, normal mood Skin exam: Present: warm, dry, intact, normal color. Absent: rash Course Vital Signs 01/11/19 01/11/19 01/11/19 13:19 17:26 18:31 Temperature 98.1 F Pulse Rate 60 61 Pulse Rate [ 60 Left Sitting Pulse Oximetery ] Pulse Rate [ 62 Left Standing Pulse Oximetery ] Pulse Rate [ 61 Pulse Oximetery ] Respiratory 18 18 Rate Blood Pressure 169/65 105/51 Blood Pressure 162/74 [Left Arm Sitting] Blood Pressure 104/51 [Left Arm Standing] Blood Pressure 201/82 [Left Arm Supine] O2 Sat by Pulse 96 98 Oximetry EKG Findings - EKG Comments: EKG Findings:: EKG demonstrates normal sinus rhythm with a ventricular rate of 60. ND interval 160. QRS E4. QTC 476. There is significant T-wave inversion with ST depression in 2, 3, aVF. Also between V3 through V6. Compared to patient's previous EKG and appears the same Medical Decision Making - Medical Decision Making Upon arrival the patient is placed into room 7. A thorough history of physical exam is performed. A 12-lead EKG is performed and demonstrates T-wave inversions and ST depressions in her inferior and lateral leads. Compared to previous and is old. I did recommend laboratory studies.. CBC shows a platelet count of 146. Coags are normal. BUN is 29. Creatinine 1.7 which is near the patient's baseline. TSH is normal. I did perform a chest x-ray, CT of the head and cervical spine as well as a thoracic spine CT. Chest x-ray demonstrates no acute pulmonary process. Degenerative changes and bilateral shoulders with the previous fracture on the right. 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 Chronic appearing. Ventricular white matter ischemic changes. Degenerative disc changes, endplate spurring and disc material at C5 to 6 with moderate anterior thecal sac compression. These f indings are compared to previous and are the same. Thoracic spine CT demonstrates posterior endplate spurring at the 12th 1 and some posterior lateral thecal sac compression. Diffuse loss of disc height. Indeterminant age L1 vertebral compression deformity with 20% loss of vertebral body height. I discussed the results with the patient. We did perform orthostatic vital signs the patient does have markedly drop in her blood pressure upon standing. I did recommend hospital admission for which the patient did agree. I called and discussed the case with Dr. Loza who accepted admission. Bridging orders were placed and the patient was transferred to floor in stable condition - Lab Data Result diagrams: 01/11/19 14:44 01/13/19 09:02 Lab Results 01/11/19 01/11/19 01/11/19 Range/Units 14:41 14:44 14:44 WBC 6.3 (3.8-10.6) k/uL RBC 5.12 (3.80-5.40) m/uL Hgb 14.6 (11.4-16.0) gm/dL Hct 45.9 (34.0-46.0) % MCV 89.6 (80.0-100.0) fL MCH 28.5 (25.0-35.0) pg MCHC 31.8 (31.0-37.0) g/dL RDW 13.7 (11.5-15.5) % Plt Count 146 L (150-450) k/uL Neutrophils % 66 % Lymphocytes % 22 % Monocytes % 7 % Eosinophils % 3 % Basophils % 1 % Neutrophils # 4.2 (1.3-7.7) k/uL Lymphocytes # 1.4 (1.0-4.8) k/uL Monocytes # 0.4 (0-1.0) k/uL Eosinophils # 0.2 (0-0.7) k/uL Basophils # 0.1 (0-0.2) k/uL PT (9.0-12.0) sec INR (<1.2) APTT (22.0-30.0) sec D-Dimer (<0.60) mg/L FEU Sodium 142 (137-145) mmol/L Potassium 4.6 (3.5-5.1) mmol/L Chloride 106 (98-107) mmol/L Carbon Dioxide 27 (22-30) mmol/L Anion Gap 9 mmol/L BUN 29 H (7-17) mg/dL Creatinine 1.71 H (0.52-1.04) mg/dL Est GFR (CKD-EPI)AfAm 34 (>60 ml/min/1.73 sqM) Est GFR (CKD-EPI)NonAf 29 (>60 ml/min/1.73 sqM) Glucose 141 H (74-99) mg/dL POC Glucose (mg/dL) 128 H (75-99) mg/dL POC Glu Glass Deposition Tender ID Beckie Andino Plasma Lactic Acid Hema (0.7-2.0) mmol/L Calcium 9.7 (8.4-10.2) mg/dL Total Bilirubin 0.7 (0.2-1.3) mg/dL AST 22 (14-36) U/L ALT 14 (9-52) U/L Alkaline Phosphatase 71 (38-126) U/L Total Protein 6.8 (6.3-8.2) g/dL Albumin 4.4 (3.5-5.0) g/dL TSH 0.652 (0.465-4.680) mIU/L Urine Color Urine Appearance (Clear) Urine pH (5.0-8.0) Ur Specific [place] (1.001-1.035) Urine Protein (Negative) Urine Glucose (UA) (Negative) Urine Ketones (Negative) Urine Blood (Negative) Urine Nitrite (Negative) Urine Bilirubin (Negative) Urine Urobilinogen (<2.0) mg/dL Ur Leukocyte Esterase (Negative) Urine RBC (0-5) /hpf Urine WBC (0-5) /hpf Ur Squamous Epith Cells (0-4) /hpf Amorphous Sediment (None) /hpf Hyaline Casts (0-2) /lpf Urine Mucus (None) /hpf 01/11/19 01/11/19 01/11/19 Range/Units 14:44 14:44 16:11 WBC (3.8-10.6) k/uL RBC (3.80-5.40) m/uL Hgb (11.4-16.0) gm/dL Hct (34.0-46.0) % MCV (80.0-100.0) fL MCH (25.0-35.0) pg MCHC (31.0-37.0) g/dL RDW (11.5-15.5) % Plt Count (150-450) k/uL Neutrophils % % Lymphocytes % % Monocytes % % Eosinophils % % Basophils % % Neutrophils # (1.3-7.7) k/uL Lymphocytes # (1.0-4.8) k/uL Monocytes # (0-1.0) k/uL Eosinophils # (0-0.7) k/uL Basophils # (0-0.2) k/uL PT 11.1 (9.0-12.0) sec INR 1.1 (<1.2) APTT 25.8 (22.0-30.0) sec D-Dimer (<0.60) mg/L FEU Sodium (137-145) mmol/L Potassium (3.5-5.1) mmol/L Chloride (98-107) mmol/L Carbon Dioxide (22-30) mmol/L Anion Gap mmol/L BUN (7-17) mg/dL Creatinine (0.52-1.04) mg/dL Est GFR (CKD-EPI)AfAm (>60 ml/min/1.73 sqM) Est GFR (CKD-EPI)NonAf (>60 ml/min/1.73 sqM) Glucose (74-99) mg/dL POC Glucose (mg/dL) (75-99) mg/dL POC Glu Glass Deposition Tender ID Plasma Lactic Acid Hema 1.3 (0.7-2.0) mmol/L Calcium (8.4-10.2) mg/dL Total Bilirubin (0.2-1.3) mg/dL AST (14-36) U/L ALT (9-52) U/L Alkaline Phosphatase (38-126) U/L Total Protein (6.3-8.2) g/dL Albumin (3.5-5.0) g/dL TSH (0.465-4.680) mIU/L Urine Color Yellow Urine Appearance Clear (Clear) Urine pH 5.5 (5.0-8.0) Ur Specific [place] 1.024 (1.001-1.035) Urine Protein Trace H (Negative) Urine Glucose (UA) Negative (Negative) Urine Ketones Negative (Negative) Urine Blood Negative (Negative) Urine Nitrite Negative (Negative) Urine Bilirubin Negative (Negative) Urine Urobilinogen <2.0 (<2.0) mg/dL Ur Leukocyte Esterase Moderate H (Negative) Urine RBC 2 (0-5) /hpf Urine WBC 47 H (0-5) /hpf Ur Squamous Epith Cells 1 (0-4) /hpf Amorphous Sediment Occasional H (None) /hpf Hyaline Casts 3 H (0-2) /lpf Urine Mucus Rare H (None) /hpf 01/11/19 01/11/19 01/12/19 Range/Units 17:57 20:32 06:45 WBC (3.8-10.6) k/uL RBC (3.80-5.40) m/uL Hgb (11.4-16.0) gm/dL Hct (34.0-46.0) % MCV (80.0-100.0) fL MCH (25.0-35.0) pg MCHC (31.0-37.0) g/dL RDW (11.5-15.5) % Plt Count (150-450) k/uL Neutrophils % % Lymphocytes % % Monocytes % % Eosinophils % % Basophils % % Neutrophils # (1.3-7.7) k/uL Lymphocytes # (1.0-4.8) k/uL Monocytes # (0-1.0) k/uL Eosinophils # (0-0.7) k/uL Basophils # (0-0.2) k/uL PT (9.0-12.0) sec INR (<1.2) APTT (22.0-30.0) sec D-Dimer (<0.60) mg/L FEU Sodium (137-145) mmol/L Potassium (3.5-5.1) mmol/L Chloride (98-107) mmol/L Carbon Dioxide (22-30) mmol/L Anion Gap mmol/L BUN (7-17) mg/dL Creatinine (0.52-1.04) mg/dL Est GFR (CKD-EPI)AfAm (>60 ml/min/1.73 sqM) Est GFR (CKD-EPI)NonAf (>60 ml/min/1.73 sqM) Glucose (74-99) mg/dL POC Glucose (mg/dL) 100 H 162 H 86 (75-99) mg/dL POC Glu Glass Deposition Tender Beckie Franco Aleesha Smith, Aleesha Plasma Lactic Acid Hema (0.7-2.0) mmol/L Calcium (8.4-10.2) mg/dL Total Bilirubin (0.2-1.3) mg/dL AST (14-36) U/L ALT (9-52) U/L Alkaline Phosphatase (38-126) U/L Total Protein (6.3-8.2) g/dL Albumin (3.5-5.0) g/dL TSH (0.465-4.680) mIU/L Urine Color Urine Appearance (Clear) Urine pH (5.0-8.0) Ur Specific [place] (1.001-1.035) Urine Protein (Negative) Urine Glucose (UA) (Negative) Urine Ketones (Negative) Urine Blood (Negative) Urine Nitrite (Negative) Urine Bilirubin (Negative) Urine Urobilinogen (<2.0) mg/dL Ur Leukocyte Esterase (Negative) Urine RBC (0-5) /hpf Urine WBC (0-5) /hpf Ur Squamous Epith Cells (0-4) /hpf Amorphous Sediment (None) /hpf Hyaline Casts (0-2) /lpf Urine Mucus (None) /hpf 01/12/19 01/12/19 01/12/19 Range/Units 10:34 11:48 16:44 WBC (3.8-10.6) k/uL RBC (3.80-5.40) m/uL Hgb (11.4-16.0) gm/dL Hct (34.0-46.0) % MCV (80.0-100.0) fL MCH (25.0-35.0) pg MCHC (31.0-37.0) g/dL RDW (11.5-15.5) % Plt Count (150-450) k/uL Neutrophils % % Lymphocytes % % Monocytes % % Eosinophils % % Basophils % % Neutrophils # (1.3-7.7) k/uL Lymphocytes # (1.0-4.8) k/uL Monocytes # (0-1.0) k/uL Eosinophils # (0-0.7) k/uL Basophils # (0-0.2) k/uL PT (9.0-12.0) sec INR (<1.2) APTT (22.0-30.0) sec D-Dimer 0.56 (<0.60) mg/L FEU Sodium (137-145) mmol/L Potassium (3.5-5.1) mmol/L Chloride (98-107) mmol/L Carbon Dioxide (22-30) mmol/L Anion Gap mmol/L BUN (7-17) mg/dL Creatinine (0.52-1.04) mg/dL Est GFR (CKD-EPI)AfAm (>60 ml/min/1.73 sqM) Est GFR (CKD-EPI)NonAf (>60 ml/min/1.73 sqM) Glucose (74-99) mg/dL POC Glucose (mg/dL) 164 H 122 H (75-99) mg/dL POC Glu Glass Deposition Tender ID Karissa Gould Caroline Plasma Lactic Acid Hema (0.7-2.0) mmol/L Calcium (8.4-10.2) mg/dL Total Bilirubin (0.2-1.3) mg/dL AST (14-36) U/L ALT (9-52) U/L Alkaline Phosphatase (38-126) U/L Total Protein (6.3-8.2) g/dL Albumin (3.5-5.0) g/dL TSH (0.465-4.680) mIU/L Urine Color Urine Appearance (Clear) Urine pH (5.0-8.0) Ur Specific [place] (1.001-1.035) Urine Protein (Negative) Urine Glucose (UA) (Negative) Urine Ketones (Negative) Urine Blood (Negative) Urine Nitrite (Negative) Urine Bilirubin (Negative) Urine Urobilinogen (<2.0) mg/dL Ur Leukocyte Esterase (Negative) Urine RBC (0-5) /hpf Urine WBC (0-5) /hpf Ur Squamous Epith Cells (0-4) /hpf Amorphous Sediment (None) /hpf Hyaline Casts (0-2) /lpf Urine Mucus (None) /hpf 01/12/19 01/13/19 01/13/19 Range/Units 20:04 06:50 09:02 WBC (3.8-10.6) k/uL RBC (3.80-5.40) m/uL Hgb (11.4-16.0) gm/dL Hct (34.0-46.0) % MCV (80.0-100.0) fL MCH (25.0-35.0) pg MCHC (31.0-37.0) g/dL RDW (11.5-15.5) % Plt Count (150-450) k/uL Neutrophils % % Lymphocytes % % Monocytes % % Eosinophils % % Basophils % % Neutrophils # (1.3-7.7) k/uL Lymphocytes # (1.0-4.8) k/uL Monocytes # (0-1.0) k/uL Eosinophils # (0-0.7) k/uL Basophils # (0-0.2) k/uL PT (9.0-12.0) sec INR (<1.2) APTT (22.0-30.0) sec D-Dimer (<0.60) mg/L FEU Sodium 143 (137-145) mmol/L Potassium 4.4 (3.5-5.1) mmol/L Chloride 104 (98-107) mmol/L Carbon Dioxide 31 H (22-30) mmol/L Anion Gap 8 mmol/L BUN 24 H (7-17) mg/dL Creatinine 1.61 H (0.52-1.04) mg/dL Est GFR (CKD-EPI)AfAm 36 (>60 ml/min/1.73 sqM) Est GFR (CKD-EPI)NonAf 31 (>60 ml/min/1.73 sqM) Glucose 143 H (74-99) mg/dL POC Glucose (mg/dL) 186 H 136 H (75-99) mg/dL POC Glu Glass Deposition Tender KARI Valerie Whitaker Kristen Plasma Lactic Acid Hema (0.7-2.0) mmol/L Calcium 9.4 (8.4-10.2) mg/dL Total Bilirubin (0.2-1.3) mg/dL AST (14-36) U/L ALT (9-52) U/L Alkaline Phosphatase (38-126) U/L Total Protein (6.3-8.2) g/dL Albumin (3.5-5.0) g/dL TSH (0.465-4.680) mIU/L Urine Color Urine Appearance (Clear) Urine pH (5.0-8.0) Ur Specific [place] (1.001-1.035) Urine Protein (Negative) Urine Glucose (UA) (Negative) Urine Ketones (Negative) Urine Blood (Negative) Urine Nitrite (Negative) Urine Bilirubin (Negative) Urine Urobilinogen (<2.0) mg/dL Ur Leukocyte Esterase (Negative) Urine RBC (0-5) /hpf Urine WBC (0-5) /hpf Ur Squamous Epith Cells (0-4) /hpf Amorphous Sediment (None) /hpf Hyaline Casts (0-2) /lpf Urine Mucus (None) /hpf Disposition Clinical Impression: Orthostatic hypotension, Lightheadedness, Syncope Disposition: ADMITTED IP TO THIS [facility] Condition: Serious Is patient prescribed a controlled substance at d/c from ED?: No Decision to Admit Reason: Admit from EC Decision Date: 01/11/19 Decision Time: 17:59
[2019-01-11 14:44] LABS: Glucose,Whole Blood 128 mg/dL (75-99)
[2019-01-11 15:01] LABS: Basophils # (A) 0.1 k/uL (0-0.2); Basophils % (A) 1 %; Eosinophils # (A) 0.2 k/uL (0-0.7); Eosinophils % (A) 3 %; HCT 45.9 % (34.0-46.0); HGB 14.6 gm/dL (11.4-16.0); Lymphocytes # (A) 1.4 k/uL (1.0-4.8); Lymphocytes % (A) 22 %; MCH 28.5 pg (25.0-35.0); MCHC 31.8 g/dL (31.0-37.0); MCV 89.6 fL (80.0-100.0); Mean Platelet Volume 6.9; Monocytes # (A) 0.4 k/uL (0-1.0); Monocytes % (A) 7 %; Neutrophils # (A) 4.2 k/uL (1.3-7.7); Neutrophils % (A) 66 %; Platelet Count 146 k/uL (150-450); RBC 5.12 m/uL (3.80-5.40); RDW 13.7 % (11.5-15.5); WBC 6.3 k/uL (3.8-10.6)
[2019-01-11 15:09] LABS: INR 1.1 (<1.2); Partial Thromboplastin Time 25.8 sec (22.0-30.0); Prothrombin Time 11.1 sec (9.0-12.0)
[2019-01-11 15:12] LABS: Albumin 4.4 g/dL (3.5-5.0); Calcium 9.7 mg/dL (8.4-10.2); Potassium 4.6 mmol/L (3.5-5.1); Total Bilirubin 0.7 mg/dL (0.2-1.3); Total Protein 6.8 g/dL (6.3-8.2)
--- NOTE | 2019-01-11 15:22 | XR ---
EXAMINATION TYPE: XR chest 2V DATE OF EXAM: 01/11/2019 COMPARISON: 12/09/2018 INDICATION: Cough, pain TECHNIQUE: Frontal and lateral views of the chest are obtained. FINDINGS: The heart size is normal. The pulmonary vasculature is normal. The lungs are clear. Degenerative changes are noted at the left shoulder. Some degenerative changes are also present at the right shoulder. Prior fracture at the right shoulder should be considered. IMPRESSION: 1. No acute pulmonary process. 2. Degenerative changes bilateral shoulders with suspected prior fracture on the right
--- NOTE | 2019-01-11 15:59 | CT ---
EXAMINATION TYPE: CT brain gabriel wo con DATE OF EXAM: 01/11/2019 COMPARISON: 10/25/2018 HISTORY: dizziness, fall, changes in vision CT DLP: 1361.8 mGycm, Automated exposure control for dose reduction was used. CONTRAST: Patient injected with 0 mL of Isovue 300. CT of the brain is performed utilizing 3 mm thick sections through the posterior fossa and 3 mm thick sections through the remaining calvarium. Study is performed within 24 hours of arrival to the hospital. No abnormal hyperdensity is present to suggest an acute intracranial hemorrhage. No mass lesion is evident. No acute infarcts are evident. 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 Stabl e from 10/25/2018. Some mild periventricular white matter hypodensity may be present suggesting chroni c white matter ischemic changes. Ventricles and sulci are appropriate for the patient age. Paranasal sinuses and mastoid air cells within the [id number] are clear. IMPRESSIONS: 1. 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 2. Chronic appearing periventricular white matter ischemic changes, mild and stable. CT cervical spine. COMPARISON: None CT of the cervical spine is performed in the axial plane at 2 mm thick sections. Reconstructed image s in the coronal, and sagittal plane are reviewed on the computer. No acute fractures are evident. Vertebral body alignment is normal. Disc heights are preserved. Vertebral body heights are preserved. Endplate spurring is present C5-6 with moderate anterior thecal sac compression. No AP spinal canal s tenosis is present. No neural foraminal stenosis is evident. IMPRESSIONS: 1. Degenerative disc changes. 2. Endplate spurring and disc material at C5-6 is moderate anterior thecal sac compression. 3. Findings appear similar to the comparison study.
--- NOTE | 2019-01-11 16:05 | CT ---
EXAMINATION TYPE: CT thoracic spine wo con DATE OF EXAM: 01/11/2019 COMPARISON: Lumbar spine images 03/22/2014 HISTORY: back pain following fall CT DLP: 1367 mGycm Automated exposure control for dose reduction was used. FINDINGS: T10-11: There is some facet hypertrophy and posterior lateral ligament calcification may has some mod erate posterior lateral thecal sac compression. Some mild inferior wedge deformity of T11 may be present. Note is also made of some wedge type deformity of L1 with approximately 20% loss of anterior vertebra l body height. No posterior wall displacement is evident. This is an interval change from the lumbar spine films 03/22/2014. There is diffuse disc space narrowing throughout the cervical spine. T12-L1: There is a right paracentral spur at T12-L1 with moderate anterior thecal sac compression. Co rrelate with right radicular symptoms. A lytic lesion within the right aspect of the T12 levels not e ntirely excluded. IMPRESSION: 1. POSTERIOR ENDPLATE SPURRING AT T12-L1 AND SOME POSTERIOR LATERAL THECAL SAC COMPRESSION FROM FACET HYPERTROPHY T10-11. 2. DIFFUSE LOSS OF DISC HEIGHT. 3. INDETERMINATE AGE L1 VERTEBRAL COMPRESSION DEFORMITY WITH APPROXIMATELY 20% LOSS OF VERTEBRAL BODY HEIGHT. 4. LYTIC LESION WITHIN T12 IS NOT EXCLUDED. CORRELATE WITH THE HISTORY OF NEOPLASM.
[2019-01-11] MEDS ORDERED: NALOXONE 0.4 MG/ML 1 ML VIAL IV PRN (17:59)
[2019-01-11 18:00] LABS: Glucose,Whole Blood 100 mg/dL (75-99)
[2019-01-11] MEDS ORDERED: ALBUTEROL NEBULIZED 2.5 MG/3 ML INHALATION PRN (18:01)
[2019-01-11 18:30] LABS: Amorphous Sediment,Urine Occasional /hpf; Appearance,Urine Clear (Clear); Bilirubin,Urine Negative (Negative); Blood,Urine Negative (Negative); Color,Urine Yellow; Glucose,Urine (UA) Negative (Negative); Hyaline Casts,Urine 3 /lpf (0-2); Ketones,Urine Negative (Negative); Leukocyte Esterase,Urine Moderate (Negative); Mucus,Urine Rare /hpf; Nitrite,Urine Negative (Negative); PH, Urine 5.5 (5.0-8.0); Protein,Urine Trace (Negative); RBC,Urine 2 /hpf (0-5); Specific Gravity,Urine 1.024 (1.001-1.035); Squamous Epithelial Cell,Urine 1 /hpf (0-4); Urobilinogen,Urine <2.0 mg/dL (<2.0); WBC,Urine 47 /hpf (0-5)
[2019-01-11 20:33] LABS: Glucose,Whole Blood 162 mg/dL (75-99)
[2019-01-11] MEDS: QUEtiapine 50 MG TAB PO SCH (20:36)
[2019-01-11] MEDS: levETIRAcetam 500 MG TAB PO SCH (20:36)
[2019-01-11] MEDS: QUEtiapine 25 MG TAB PO SCH (20:36)
[2019-01-11] MEDS: INSULIN DETEMIR (LEVEMIR) 100 UNIT/ML SYR SQ SCH (20:36)
[2019-01-11] MEDS: ATORVASTATIN 40 MG TAB PO SCH (20:36)
--- NOTE | 2019-01-11 22:46 | P.HPIM ---
History of Present Illness H&P Date: 01/11/19 Chief Complaint: Upper back pain, hypotension, near syncope 73-year-old female with complex past medical history including A. fib and orthostatic hypotension Patient comes in today with worsening chronic pain of her upper back and cervical spine along with headaches. She denies any vision changes hearing changes any focal neuro deficits like numbness tingling or weakness in her extremities. She reports a recent fall over a month ago for which she was admitted to the hospital due to laceration of his comp she had syncope at that time. Was found to have orthostatic hypotension. Few days ago she also had a near-syncopal episode however her [id number], caught her in time so she did not get injured. She reports that her blood pressure is always low causing some dizziness and lightheadedness. Denies any chest pain or trouble breathing denies any palpitations denies any peripheral edema. Otherwise denies any fevers or chills denies any coughing denies any changes in urinary or bowel habits denies any GI bleeding Patient uses a wheelchair to ambulate. Patient also reports pressure sore on her right buttocks that was bleeding about a week ago. In the ED CT of the brain showed no acute process, CT of the spine showed diffuse loss of disc height, reticulocyte lesion over T12, L1 vertebral compression fracture. Labs reviewed and unremarkable Patient admitted for orthopedic evaluation and cardiology evaluation Review of Systems Pertinent positives as noted in HPI. 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 Right arm fracture 2 History of Any Multi-Drug Resistant Organisms: MRSA Date of last positivie culture/infection: 06/05/18 MDRO Source:: URINE Past Surgical History: Cholecystectomy, Heart Catheterization, Heart Ca theterization With Stent, Hysterectomy, Pacemaker Additional Past Surgical History / Comment(s): Evacuation on intracranial hematoma and ressection of hemorrhagic mass, pacemaker 2016, PCI with stent 06/06/18, EGD/colonoscopy, R eye corneal implant/cataract removal, EGD 06/2018, colonoscopy, skin cancer removal. Past Anesthesia/Blood Transfusion Reactions: No Reported Reaction Additional Past Anesthesia/Blood Transfusion Reaction / Comment(s): . Date of Last Stent Placement:: 06/06/18 Type of Cardiac Device: Permanent Pacemaker Device Placement Date:: 04/2016 Past Psychological History: Depression Smoking Status: Never smoker Past Alcohol Use History: None Reported Past Drug Use History: None Reported - Past Family History Mother Family Medical History: Cancer, COPD, Hypertension Additional Family Medical History / Comment(s): Mother had bone cancer. Father Family Medical History: Cancer, Hypertension Additional Family Medical History / Comment(s): Father had skin cancer. Medications and Allergies Home Medications Medication Instructions Recorded Confirmed Type Albuterol Inhaler [Ventolin Hfa 2 puff INHALATION RT-Q6H PRN 03/27/18 01/11/19 History Inhaler] Ferrous Sulfate [Iron (65 MG 325 mg PO DAILY 03/27/18 01/11/19 History Elemental)] Atorvastatin [Lipitor] 40 mg PO HS #90 tab 06/07/18 01/11/19 Rx Clopidogrel [Plavix] 75 mg PO DAILY #90 tab 06/07/18 01/11/19 Rx levETIRAcetam [Keppra] 500 mg PO Q12HR 07/21/18 01/11/19 History Nitroglycerin Sl Tabs [Nitrostat] 0.4 mg SUBLINGUAL Q5M PRN tab 07/30/18 01/11/19 Rx Insulin Glargine [Lantus] 30 unit SQ HS 09/01/18 01/11/19 History Sodium Chloride 5% Ophth Soln 1 drop RIGHT EYE MOFR 09/01/18 01/11/19 History [Amanda 128] hydrALAZINE HCL [Apresoline] 50 mg PO TID PRN 09/01/18 01/11/19 History Escitalopram [Lexapro] 20 mg PO DAILY 10/25/18 01/11/19 History Acetaminophen Tab [Tylenol] 650 mg PO Q6H PRN 12/09/18 01/11/19 History QUEtiapine [SEROquel] 50 mg PO HS 12/09/18 01/11/19 History Midodrine [ProAmatine] 2.5 mg PO AC-TID #90 tab 12/12/18 01/11/19 Rx Calcium Carbonate [Calcium] 600 mg PO DAILY 01/11/19 01/11/19 History Cyanocobalamin [Vitamin B-12] 500 mcg PO DAILY 01/11/19 01/11/19 History QUEtiapine FUMARATE [SEROquel] 25 mg PO HS 01/11/19 01/11/19 History Allergies Allergy/AdvReac Type Severity Reaction Status Date / Time Latex, Natural Rubber Allergy Itching Verified 01/11/19 17:44 sulfamethoxazole Allergy Rash/Hives Verified 01/11/19 17:44 [From Bactrim] trimethoprim [From Bactrim] Allergy Rash/Hives Verified 01/11/19 17:44 Physical Exam Vitals: Vital Signs Temp Pulse Pulse Pulse Pulse Resp BP 01/11/19 19:24 98.1 F 65 18 01/11/19 18:53 98.1 F 63 18 01/11/19 18:31 61 18 105/51 01/11/19 17:26 60 62 61 01/11/19 13:19 98.1 F 60 18 169/65 BP BP BP Pulse Ox 01/11/19 19:24 169/82 94 L 01/11/19 18:53 144/74 94 L 01/11/19 18:31 98 01/11/19 17:26 162/74 104/51 201/82 01/11/19 13:19 96 Intake and Output 01/11/19 01/11/19 01/11/19 06:59 14:59 22:59 Other: Weight 81.647 kg Constitutional: No acute distress, conversant, pleasant Eyes: Anicteric sclerae, moist conjunctiva, no lid-lag Pupils equal round reactive to light ENMT: NC/AT Oropharynx clear, no erythema, exudates Neck: Supple, FROM, no masses, or JVD No carotid bruits No thyromegaly Lungs: Clear to auscultation Clear to percussion Normal respiratory effort, no accessory muscle use Cardiovascular: Heart regular in rate and rhythm, No murmurs, gallops, or rubs No peripheral edema Abdominal: Soft Nontender, no guarding, rebound or rigidity Abdomen moving with respiration Normoactive bowel sounds No hepatomegaly, No splenomegaly No palpable mass No abdominal wall hernia noted Skin: Normal temperature, tone, texture, turgor No induration No subcutaneous nodules No rash, lesions No ulcers Extremities: No digital cyanosis No clubbing Pedal pulses intact and symmetrical Radial pulses intact and symmetrical No calf tenderness Psychiatric: Alert and oriented to person, place and time Appropriate affect fair judgment Neuro Muscles Strength 4/5 in all 4 extremities Sensation to light touch grossly present throughout Cranial nerves II-XII grossly intact No focal sensory deficits Lymphatics: no palpable cervical or supraclavicular , or inguinal lymph nodes Results CBC & Chem 7: 01/11/19 14:44 01/11/19 14:44 Labs: Abnormal Lab Results - Last 24 Hours (Table) 01/11/19 01/11/19 01/11/19 Range/Units 14:41 14:44 14:44 Plt Count 146 L (150-450) k/uL BUN 29 H (7-17) mg/dL Creatinine 1.71 H (0.52-1.04) mg/dL Glucose 141 H (74-99) mg/dL POC Glucose (mg/dL) 128 H (75-99) mg/dL Urine Protein (Negative) Ur Leukocyte Esterase (Negative) Urine WBC (0-5) /hpf Amorphous Sediment (None) /hpf Hyaline Casts (0-2) /lpf Urine Mucus (None) /hpf 01/11/19 01/11/19 01/11/19 Range/Units 16:11 17:57 20:32 Plt Count (150-450) k/uL BUN (7-17) mg/dL Creatinine (0.52-1.04) mg/dL Glucose (74-99) mg/dL POC Glucose (mg/dL) 100 H 162 H (75-99) mg/dL Urine Protein Trace H (Negative) Ur Leukocyte Esterase Moderate H (Negative) Urine WBC 47 H (0-5) /hpf Amorphous Sediment Occasional H (None) /hpf Hyaline Casts 3 H (0-2) /lpf Urine Mucus Rare H (None) /hpf Thrombosis Risk Factor Assmnt - Choose All That Apply Each Factor Represents 1 point: Abnormal pulmonary function (COPD), Obesity (BMI >25) Each Risk Factor Represents 2 Points: Age 61-74 years Thrombosis Risk Factor Assessment Total Risk Factor Score: 4 Thrombosis Risk Factor Assessment Level: Moderate Risk Assessment and Plan Assessment: 73 year old female with history of afib s/p pacemaker, orthostatic hypotension, DM, CAD, CKD III. presented due to headache, neck and upper back pain, along with hypotension and near syncope admitted under observation with anticipated length of stay <2 mifdnights Plan: orthostatic hypotension afib and sss, s/p pacemaker cardiology evaluation BP meds on hold due to hypotension EKG showed atrial paced rhythm upper back pain cervical spine pain headache CT performed and showed (diffuse loss of vertebral height , lytic lesion T12, L1 compressed fracture) ortho spine consult tylenol chronic conditions DM insulin sliding scale CKD III stable diastolic CHF , compensated pressure ulcer over the right buttocks, stage II wound care DVT PPX , heparin sc tid Preformed a thorough record review from recent hospitalization recent hospitalization for syncope due to hypotension along with head injury resulted in laceration of the scalp. CODE STATUS:full code Discussed with: Patient, ER, RN Anticipated length of stay < than [address]: home A total of 60 minutes was spent on the care of this complex patient more than 50% of the time was spent in counseling and care coordination.
[2019-01-11] MEDS: HEPARIN SODIUM,PORCINE 5,000 UNIT/ML 1 ML VIAL SQ SCH (23:23)
[2019-01-12] MEDS: ACETAMINOPHEN TAB 325 MG TAB PO PRN ×3 (04:57→21:03)
[2019-01-12] MEDS: INSULIN ASPART (NovoLOG) 100 UNIT/ML VIAL SQ SCH ×4 (06:45→21:01)
[2019-01-12 06:46] LABS: Glucose,Whole Blood 86 mg/dL (75-99)
[2019-01-12] MEDS: CLOPIDOGREL 75 MG TAB PO SCH (09:41)
[2019-01-12] MEDS: FERROUS SULFATE 325 MG TAB PO SCH (09:41)
[2019-01-12] MEDS: levETIRAcetam 500 MG TAB PO SCH ×2 (09:41→21:01)
[2019-01-12] MEDS: ESCITALOPRAM 20 MG TAB PO SCH (09:41)
[2019-01-12] MEDS: CALCIUM CARBONATE 500 MG CHEWABLE PO SCH (09:41)
[2019-01-12] MEDS: HEPARIN SODIUM,PORCINE 5,000 UNIT/ML 1 ML VIAL SQ SCH ×2 (09:42→17:18)
[2019-01-12] MEDS: CYANOCOBALAMIN 500 MCG TAB PO SCH (09:42)
[2019-01-12] MEDS: SODIUM CHLORIDE 5% OPHTH DROPS 15 ML BTL RIGHT EYE SCH (09:42)
[2019-01-12] MEDS: SODIUM CHLORIDE 0.9% 1,000 ML IV SCH (09:55)
--- NOTE | 2019-01-12 11:03 | P.CRDCN ---
History of Present Illness History of present illness: HISTORY OF PRESENTING ILLNESS This is a pleasant 73-year-old female past medical history significant for coronary artery disease s/p stent placement to the LAD 06/2018, paroxysmal atrial fibrillation not on assisted anti-coagulation secondary to brain bleed, sick sinus syndrome s/p permanent pacemaker implantation, hypertension, CVA with brain tumor/bleed and tumor resection, diabetes mellitus, seizures and chronic kidney disease. She follows in the office with Dr. Hawk. If necessary consultation secondary to orthostatic hypotension. She is seen and examined resting comfortably in bed in no acute distress. She continues to complain of ongoing lower back and neck discomfort. This pain is worse with palpation and reproducible. Initial story regarding presentation to the hospital is quite vague. The patient states she came in because of lower back discomfort but then she also mentions that the visiting nurse was there and her blood pressure was low. Blood pressure on arrival was 169/65. Orthostatics were obtained revealing a supine blood pressure of 201/82, sitting 162/74 and standing of 104/51. She is currently on any antihypertensive medications secondary to dysautonomia and orthostatic changes in the past. Repeat orthostatics this morning reveal a supine blood pressure 134/75, sitting of 114/72 and standing of 89/59. She had previously been on midodrine 2.5 mg 3 times a day. This medication had not been resumed this morning. She denies symptoms of chest discomfort, shortness of breath, dizziness at rest or palpitations. DIAGNOSTICS EKG reveals sinus mechanism T-wave inversions and ST depression noted in all leads, consistent with previous EKGs. No acute changes. Chest xray for an acute cardiopulmonary process with degenerative changes bilateral shoulder with suspected prior fracture on the right. CT of the head and cervical spine reveals old parieto-occipital infarct, chronic appearing periventricular white matter ischemic changes that are mild and stable, degenerative disc changes, endplate spurring and disc material at C5 through C6 is moderate CT of the thoracic spine reveals posterior complains primary teeth 12 through L1 and some posterior lateral thecal sac compression from facet Hytrin hypertrophy T10 through 11, indeterminate age of L1 vertebral compression deformity with a proximally 20% loss of vertebral body height, lytic lesion within T12 not excluded. Laboratory reviewed, WBC 6.3, hemoglobin 14.6, platelets 146, sodium 142, potassium 4.6, creatinine 1.71 with a GFR of 29 TSH 0.652,. Current cardiac medications include Midrin 2.5 mg 3 times a day, atorvastatin 40 mg daily, Plavix 75 mg daily and hydralazine 50 mg 3 times a day as needed. Most recent echocardiogram obtained October 2018 reveals preserved LV systolic function with ejection fraction 50-55%, mild MR and mild TR. REVIEW OF SYSTEMS At the time of my exam: CONSTITUTIONAL: Denies fever or chills. CARDIOVASCULAR: Denies chest pain, shortness of breath, orthopnea, PND or palpitations. RESPIRATORY: Denies cough. GASTROINTESTINAL: Denies abdominal pain, diarrhea, constipation, nausea or vomiting. MUSCULOSKELETAL: Complains of lumbar and cervial pain. NEUROLOGIC: Denies numbness, tingling or weakness. ENDOCRINE: Denies fatigue, weight change, polydipsia or polyurina. GENITOURINARY: Denies burning, hematuria or urgency with micturation. HEMATOLOGIC: Denies history of anemia or bleeding. PHYSICAL EXAMINATION CONSTITUTIONAL: No apparent distress. HEENT: Head is normocephalic. Pupils are equal, round. Sclerae anicteric. Mucous membranes of the mouth are moist. No JVD. No carotid bruit. CHEST EXAMINATION: Lungs are clear to auscultation. No chest wall tenderness is noted on palpation or with deep breathing. HEART EXAMINATION: Regular rate and rhythm. S1, S2 heard. No murmurs, gallops or rub. ABDOMEN: Soft, nontender. Positive bowel sounds. EXTREMITIES: 2+ peripheral pulses, no lower extremity edema and no calf tenderne ss. NEUROLOGIC EXAMINATION: Patient is awake, alert and oriented x3. ASSESSMENT Chronic dysautonomia with orthostatic changes Lumbar and cervical back discomfort History of coronary artery disease status post stent placement to the LAD June 2018 Paroxysmal atrial fibrillation on long-term anticoagulation secondary to brain bleed Sick sinus syndrome status post permanent pacemaker implantation Hypertension Diabetes mellitus Dyslipidemia Chronic kidney disease Thrombocytopenia PLAN Check d-dimer and CTA if abnormal. Resume Midodrine as previously ordered. Ongoing medical management of back and neck discomfort. Apply LESLI hose. Advised changing positions slowly and sitting on the edge of the seat for a minute before standing. Thank you kindly for this consultation. Nurse Practitioner note has been reviewed, I agree with a documented findings and plan of care. Patient was seen and examined. pain all over cuasing her to have trouble walking. visiting nurse was at her house and checked her bp and it was low. pain in the base of her neck and lower back. 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 Right arm fracture 2 History of Any Multi-Drug Resistant Organisms: MRSA Date of last positivie culture/infection: 06/05/18 MDRO Source:: URINE Past Surgical History: Cholecystectomy, Heart Catheterization, Heart Catheterization With Stent, Hysterectomy, Pacemaker Additional Past Surgical History / Comment(s): Evacuation on intracranial hematoma and ressection of hemorrhagic mass, pacemaker 2016, PCI with stent 06/06/18, EGD/colonoscopy, R eye corneal implant/cataract removal, EGD 06/2018, colonoscopy, skin cancer removal. Past Anesthesia/Blood Transfusion Reactions: No Reported Reaction Additional Past Anesthesia/Blood Transfusion Reaction / Comment(s): . Date of Last Stent Placement:: 06/06/18 Type of Cardiac Device: Permanent Pacemaker Device Placement Date:: 04/2016 Past Psychological History: Depression Smoking Status: Never smoker Past Alcohol Use History: None Reported Past Drug Use History: None Reported - Past Family History Mother Family Medical History: Cancer, COPD, Hypertension Additional Family Medical History / Comment(s): Mother had bone cancer. Father Family Medical History: Cancer, Hypertension Additional Family Medical History / Comment(s): Father had skin cancer. Medications and Allergies Home Medications Medication Instructions Recorded Confirmed Type Albuterol Inhaler [Ventolin Hfa 2 puff INHALATION RT-Q6H PRN 03/27/18 01/11/19 History Inhaler] Ferrous Sulfate [Iron (65 MG 325 mg PO DAILY 03/27/18 01/11/19 History Elemental)] Atorvastatin [Lipitor] 40 mg PO HS #90 tab 06/07/18 01/11/19 Rx Clopidogrel [Plavix] 75 mg PO DAILY #90 tab 06/07/18 01/11/19 Rx levETIRAcetam [Keppra] 500 mg PO Q12HR 07/21/18 01/11/19 History Nitroglycerin Sl Tabs [Nitrostat] 0.4 mg SUBLINGUAL Q5M PRN tab 07/30/18 Rx Insulin Glargine [Lantus] 30 unit SQ HS 09/01/18 01/11/19 History Sodium Chloride 5% Ophth Soln 1 drop RIGHT EYE MOFR 09/01/18 01/11/19 History [Amanda 128] hydrALAZINE HCL [Apresoline] 50 mg PO TID PRN 09/01/18 01/11/19 History Escitalopram [Lexapro] 20 mg PO DAILY 10/25/18 01/11/19 History Acetaminophen Tab [Tylenol] 650 mg PO Q6H PRN 12/09/18 01/11/19 History QUEtiapine [SEROquel] 50 mg PO HS 12/09/18 01/11/19 History Midodrine [ProAmatine] 2.5 mg PO AC-TID #90 tab 12/12/18 01/11/19 Rx Calcium Carbonate [Calcium] 600 mg PO DAILY 01/11/19 01/11/19 History Cyanocobalamin [Vitamin B-12] 500 mcg PO DAILY 01/11/19 01/11/19 History QUEtiapine FUMARATE [SEROquel] 25 mg PO HS 01/11/19 01/11/19 History Allergies Allergy/AdvReac Type Severity Reaction Status Date / Time Latex, Natural Rubber Allergy Itching Verified 01/11/19 17:44 sulfamethoxazole Allergy Rash/Hives Verified 01/11/19 17:44 [From Bactrim] trimethoprim [From Bactrim] Allergy Rash/Hives Verified 01/11/19 17:44 Physical Exam Vitals: Vital Signs Temp Pulse Pulse Pulse Pulse Resp BP 01/12/19 03:44 98.2 F 61 18 01/11/19 23:23 98.2 F 62 18 01/11/19 19:24 98.1 F 65 18 01/11/19 18:53 98.1 F 63 18 01/11/19 18:31 61 18 105/51 01/11/19 17:26 60 62 61 01/11/19 13:19 98.1 F 60 18 169/65 BP BP BP Pulse Ox 01/12/19 03:44 148/51 95 01/11/19 23:23 122/46 93 L 01/11/19 19:24 169/82 94 L 01/11/19 18:53 144/74 94 L 01/11/19 18:31 98 01/11/19 17:26 162/74 104/51 201/82 01/11/19 13:19 96 Intake and Output 01/11/19 01/12/19 01/12/19 22:59 06:59 14:59 Intake Total 120 Balance 120 Intake: Oral 120 Other: # Voids 1 Results 01/11/19 14:44 01/11/19 14:44 Cardiac Enzymes 01/11/19 Range/Units 14:44 AST 22 (14-36) U/L Coagulation 01/11/19 Range/Units 14:44 PT 11.1 (9.0-12.0) sec APTT 25.8 (22.0-30.0) sec CBC 01/11/19 Range/Units 14:44 WBC 6.3 (3.8-10.6) k/uL RBC 5.12 (3.80-5.40) m/uL Hgb 14.6 (11.4-16.0) gm/dL Hct 45.9 (34.0-46.0) % Plt Count 146 L (150-450) k/uL Comprehensive Metabolic Panel 01/11/19 Range/Units 14:44 Sodium 142 (137-145) mmol/L Potassium 4.6 (3.5-5.1) mmol/L Chloride 106 (98-107) mmol/L Carbon Dioxide 27 (22-30) mmol/L BUN 29 H (7-17) mg/dL Creatinine 1.71 H (0.52-1.04) mg/dL Glucose 141 H (74-99) mg/dL Calcium 9.7 (8.4-10.2) mg/dL AST 22 (14-36) U/L ALT 14 (9-52) U/L Alkaline Phosphatase 71 (38-126) U/L Total Protein 6.8 (6.3-8.2) g/dL Albumin 4.4 (3.5-5.0) g/dL Current Medications Generic Name Dose Route Start Last Admin Trade Name Freq PRN Reason Stop Dose Admin Acetaminophen 650 mg 01/11/19 18:01 01/12/19 04:57 Tylenol Tab PO 650 mg Q6H PRN Administration MILD Pain Albuterol Sulfate 2.5 mg 01/11/19 18:01 Ventolin Nebulized INHALATION RT-Q6H PRN Shortness Of Breath Atorvastatin Calcium 40 mg 01/11/19 21:00 01/11/19 20:36 Lipitor PO 40 mg HS ALEXSANDER Administration Calcium Carbonate/Glycine 500 mg 01/12/19 09:00 Tums PO DAILY [facility] Clopidogrel Bisulfate 75 mg 01/12/19 09:00 Plavix PO DAILY [facility] Cyanocobalamin 500 mcg 01/12/19 09:00 Vitamin B-12 PO DAILY [facility] Escitalopram Oxalate 20 mg 01/12/19 09:00 Lexapro PO DAILY [facility] Ferrous Sulfate 325 mg 01/12/19 09:00 Feosol PO DAILY [facility] Heparin Sodium (Porcine) 5,000 unit 01/12/19 00:00 01/11/19 23:23 Heparin SQ 5,000 unit Q8HR [facility] Administration Insulin Aspart 0 unit 01/12/19 07:30 01/12/19 06:45 Novolog SQ Not Given ACHS [facility] Protocol Insulin Detemir 30 unit 01/11/19 21:00 01/11/19 20:36 Levemir SQ 30 unit HS [facility] Administration Levetiracetam 500 mg 01/11/19 21:00 01/11/19 20:36 Keppra PO 500 mg Q12HR [facility] Administration Naloxone HCl 0.2 mg 01/11/19 17:59 Narcan IV Q2M PRN Opioid Reversal Quetiapine Fumarate 50 mg 01/11/19 21:00 01/11/19 20:36 Seroquel PO 50 mg HS [facility] Administration Quetiapine Fumarate 25 mg 01/11/19 21:00 01/11/19 20:36 Seroquel PO 25 mg HS [facility] Administration Sodium Chloride 1 drops 01/12/19 09:00 Amanda 128 RIGHT EYE MOFR [facility] Intake and Output 01/11/19 01/12/19 01/12/19 22:59 06:59 14:59 Intake Total 120 Balance 120 Intake: Oral 120 Other: # Voids 1 01/11/19 14:44 01/11/19 14:44
[2019-01-12 11:49] LABS: Glucose,Whole Blood 164 mg/dL (75-99)
[2019-01-12] MEDS: MIDODRINE 5 MG TAB PO SCH ×2 (12:13→17:18)
--- NOTE | 2019-01-12 15:25 | P.PN ---
Subjective Progress Note Date: 01/12/19 Principal diagnosis: Orthostasis Patient was seen and examined. No acute events overnight. Patient reports dizziness especially when going from a sitting or laying to a standing position. Patient reports frequent falls at home as well even with her walker. She denies any chest pain, shortness of breath or palpitations. No nausea or vomiting. No fever or chills. She currently rates her cervical spine pain and 8 out of 10 in severity. She denies any bladder or bowel incontinence. No saddle anesthesia. Objective - Vital Signs Vital signs: Vital Signs Temp 98 F 01/12/19 11:30 Pulse 60 01/12/19 12:00 Resp 18 01/12/19 12:00 BP 147/76 01/12/19 11:30 Pulse Ox 97 01/12/19 11:30 Intake & Output 01/11/19 01/12/19 01/12/19 18:59 06:59 18:59 Intake Total 120 Balance 120 Weight 81.647 kg Intake: Oral 120 Other: Voiding Method Bedpan # Voids 1 1 - Exam General: [non toxic], [no distress], [appears at stated age] Derm: [warm], [dry] Head: [atraumatic], [normocephalic], [symmetric] Eyes: [EOMI], [no lid lag], [anicteric sclera] Mouth: [no lip lesion], [mucus membranes moist] Cardiovascular: [S1S2 reg], [no murmur], [positive DP pulse bilateral], Lungs: [CTA bilateral], [no rhonchi, no rales] , [no accessory muscle use] Abdominal: [soft], [ nontender to palpation], [no guarding], [no appreciable organomegaly] Ext: [no gross muscle atrophy], [no edema], [no contractures] Neuro: [no focal neuro deficits] Psych: [Alert], [oriented], [appropriate affect] - Labs CBC & Chem 7: 01/11/19 14:44 01/11/19 14:44 Labs: Abnormal Lab Results - Last 24 Hours (Table) 01/11/19 01/11/19 01/11/19 Range/Units 14:44 16:11 17:57 BUN 29 H (7-17) mg/dL Creatinine 1.71 H (0.52-1.04) mg/dL Glucose 141 H (74-99) mg/dL POC Glucose (mg/dL) 100 H (75-99) mg/dL Urine Protein Trace H (Negative) Ur Leukocyte Esterase Moderate H (Negative) Urine WBC 47 H (0-5) /hpf Amorphous Sediment Occasional H (None) /hpf Hyaline Casts 3 H (0-2) /lpf Urine Mucus Rare H (None) /hpf 01/11/19 01/12/19 Range/Units 20:32 11:48 BUN (7-17) mg/dL Creatinine (0.52-1.04) mg/dL Glucose (74-99) mg/dL POC Glucose (mg/dL) 162 H 164 H (75-99) mg/dL Urine Protein (Negative) Ur Leukocyte Esterase (Negative) Urine WBC (0-5) /hpf Amorphous Sediment (None) /hpf Hyaline Casts (0-2) /lpf Urine Mucus (None) /hpf Assessment and Plan Assessment: Assessment and plan Orthostatic hypotension Cervical spine pain Atrial fibrillation and sick sinus syndrome status post pacemaker Chronic conditions: Diabetes mellitus, chronic kidney disease stage III, diastolic CHF compensated, pressure ulcer over the right buttocks, seizures post brain surgery, paroxysmal A. fib D-dimer within normal limits. Orthostats are positive this morning. Plans: Sta rt normal saline at 75 mL per hour. Start home dose of Midodrine. Discontinue home dose of hydralazine due to hypotension. Start LESLI hose. Telemetry monitoring. Fall precautions. Repeat orthostats in the morning. Follow PT consultation. CT C-spine shows degenerative disc changes, endplate spurring and disc material C5-C6 with anterior thecal compression. CT T-spine shows lytic lesion T12. Plans: Pain control with Tylenol. Follow orthopedic consultation. Plans: Follow cardiology recommendations. Resume home dose of insulin for diabetes mellitus along with insulin sliding scale. Start diabetic diet. Hypoglycemic precautions. Also resume Keppra for seizure prophylaxis. Patient is not on anticoagulation for A. fib due to history of intracranial bleed. [Patient admitted for dizziness and cervical spine pain. She continues to be orthostats positive. Patient is pending clinical improvement. Cardiology and PT consulted. Likely DC 1-2 days.]
[2019-01-12 16:45] LABS: Glucose,Whole Blood 122 mg/dL (75-99)
[2019-01-12 20:05] LABS: Glucose,Whole Blood 186 mg/dL (75-99)
[2019-01-12] MEDS: ATORVASTATIN 40 MG TAB PO SCH (21:01)
[2019-01-12] MEDS: QUEtiapine 50 MG TAB PO SCH (21:01)
[2019-01-12] MEDS: QUEtiapine 25 MG TAB PO SCH (21:01)
[2019-01-12] MEDS: INSULIN DETEMIR (LEVEMIR) 100 UNIT/ML SYR SQ SCH (21:01)
[2019-01-13] MEDS: HEPARIN SODIUM,PORCINE 5,000 UNIT/ML 1 ML VIAL SQ SCH ×4 (00:30→23:29)
[2019-01-13] MEDS: SODIUM CHLORIDE 0.9% 1,000 ML IV SCH (06:32)
[2019-01-13 06:51] LABS: Glucose,Whole Blood 136 mg/dL (75-99)
[2019-01-13] MEDS: INSULIN ASPART (NovoLOG) 100 UNIT/ML VIAL SQ SCH ×4 (07:54→21:14)
[2019-01-13] MEDS: levETIRAcetam 500 MG TAB PO SCH ×2 (07:54→21:15)
[2019-01-13] MEDS: CLOPIDOGREL 75 MG TAB PO SCH (07:54)
[2019-01-13] MEDS: ESCITALOPRAM 20 MG TAB PO SCH (07:54)
[2019-01-13] MEDS: FERROUS SULFATE 325 MG TAB PO SCH (07:54)
[2019-01-13] MEDS: CALCIUM CARBONATE 500 MG CHEWABLE PO SCH (07:54)
[2019-01-13] MEDS: CYANOCOBALAMIN 500 MCG TAB PO SCH (07:55)
[2019-01-13] MEDS: MIDODRINE 5 MG TAB PO SCH ×3 (07:55→17:03)
[2019-01-13] MEDS: ACETAMINOPHEN TAB 325 MG TAB PO PRN (08:01)
[2019-01-13 09:43] LABS: Calcium 9.4 mg/dL (8.4-10.2); Potassium 4.4 mmol/L (3.5-5.1)
[2019-01-13] MEDS ORDERED: hydrALAZINE HCL 50 MG TAB PO STA (11:34)
[2019-01-13 11:45] LABS: Glucose,Whole Blood 112 mg/dL (75-99)
--- NOTE | 2019-01-13 12:20 | P.PN ---
Subjective Progress Note Date: 01/13/19 Principal diagnosis: Orthostasis Patient was seen and examined. No acute events overnight. Patient reports dizziness especially when going from a sitting or laying to a standing position. She denies any chest pain, shortness of breath or palpitations. No nausea or vomiting. No fever or chills. Her orthostats are positive again today. SBP is 191 supine and 70 when she stands up. Patient is very symptomatic. Objective - Vital Signs Vital signs: Vital Signs Temp 97.6 F 01/13/19 11:38 Pulse 61 01/13/19 12:00 Resp 18 01/13/19 12:00 BP 214/123 01/13/19 11:38 Pulse Ox 96 01/13/19 11:38 Intake & Output 01/12/19 01/13/19 01/13/19 18:59 06:59 18:59 Other: Voiding Method Bedpan Bedpan Bedpan # Voids 1 1 1 # Bowel Movements 1 - Exam General: [non toxic], [no distress], [appears at stated age] Derm: [warm], [dry] Head: [atraumatic], [normocephalic], [symmetric] Eyes: [EOMI], [no lid lag], [anicteric sclera] Mouth: [no lip lesion], [mucus membranes moist] Cardiovascular: [S1S2 reg], [no murmur], [positive DP pulse bilateral], Lungs: [CTA bilateral], [no rhonchi, no rales] , [no accessory muscle use] Abdominal: [soft], [ nontender to palpation], [no guarding], [no appreciable organomegaly] Ext: [no gross muscle atrophy], [no edema], [no contractures] Neuro: [no focal neuro deficits] Psych: [Alert], [oriented], [appropriate affect] - Labs CBC & Chem 7: 01/11/19 14:44 01/13/19 09:02 Labs: Abnormal Lab Results - Last 24 Hours (Table) 01/12/19 01/12/19 01/13/19 Range/Units 16:44 20:04 06:50 Carbon Dioxide (22-30) mmol/L BUN (7-17) mg/dL Creatinine (0.52-1.04) mg/dL Glucose (74-99) mg/dL POC Glucose (mg/dL) 122 H 186 H 136 H (75-99) mg/dL 01/13/19 01/13/19 Range/Units 09:02 11:44 Carbon Dioxide 31 H (22-30) mmol/L BUN 24 H (7-17) mg/dL Creatinine 1.61 H (0.52-1.04) mg/dL Glucose 143 H (74-99) mg/dL POC Glucose (mg/dL) 112 H (75-99) mg/dL Assessment and Plan Assessment: Assessment and plan Orthostasis Hypertensive urgency Cervical spine pain Atrial fibrillation and sick sinus syndrome status post pacemaker Chronic conditions: Diabetes mellitus, chronic kidney disease stage III, diastolic CHF compensated, pressure ulcer over the right buttocks, seizures post brain surgery, paroxysmal A. fib D-dimer within normal limits. Orthostats are positive this morning. PT re commending rehab. Possible orthostatic based on autonomic instability from multiple years of diabetes mellitus. Plans: DC IVF and encourage hydration by mouth. Start home dose of Midodrine. We will restart hydralazine as needed for elevated BP. Start LESLI hose. Telemetry monitoring. Fall precautions. Repeat orthostats in the morning. BP 214/123. Plans: Hydralazine 50 mg by mouth 1. Monitor vitals, adjust medications as necessary. CT C-spine shows degenerative disc changes, endplate spurring and disc material C5-C6 with anterior thecal compression. CT T-spine shows lytic lesion T12. Plans: Pain control with Tylenol. Follow orthopedic consultation. Plans: Follow cardiology recommendations. Resume home dose of insulin for diabetes mellitus along with insulin sliding scale. Start diabetic diet. Hypoglycemic precautions. Also resume Keppra for seizure prophylaxis. Patient is not on anticoagulation for A. fib due to history of intracranial bleed. [Patient admitted for dizziness and cervical spine pain. She continues to be orthostats positive and is unsafe to be discharged home. PT evaluated patient, recommends rehab, will change to inpatient. Pending clinical improvement.]
--- NOTE | 2019-01-13 12:44 | P.CNOR ---
History of Present Illness - [facility] Consult date: 01/12/19 Requesting physician: Esteban Pate Consult reason: neck pain, other (L1 compression fracture deformity and T12 l ytic lesion) History of present illness: Patient is a very pleasant 73-year-old female who is seen and examined at bedside for further evaluation regards to exacerbation of chronic cervical pain. Patient is also having significant difficulty with orthostatic hypotension. She continues to be seen by medicine as well as cardiology. She states she has not had any injury to just be her cervical pain. She denies taking narcotic pain medications as they make her feel loopy. Since her treatments to the hospital she has been receiving Tylenol for pain control and feels her cervical pain has been much better controlled. She denies any upper extremity weakness or radiculopathy bilaterally. She does admit to previous brain tumor with surgical intervention for resection and states she does have some chronic left- sided weakness affecting her left lower extremity postoperatively. She states her brain surgery was performed approximately 2-3 years ago. She has had difficulty with ambulation since that time. She is using a walker to aid in ambulation following surgery on her brain. During her admittance evaluation the hospital, CT imaging of the thoracic spine was taken which showed evidence of L1 compression fracture deformity of indeterminate age,T11 mild inferior wedge deformity, and lytic lesion at T12. Patient states she does have some chronic low back pain but is not currently experiencing any pain in her thoracolumbar junction. Patient does have a history of uterine cancer. Past Medical History Past Medical History: Atrial Fibrillation, Asthma, Coronary Artery Disease (CAD), Cancer, Heart Failure, CVA/TIA, Diabetes Mellitus, Hypertension, Osteoarthritis (OA), Renal Disease Additional Past Medical History / Comment(s): Paroxysmal Afib not on anticoagulation due to prior brain bleed, brain mass with intracranial bleed/hematoma with surgery at [facility], seizure after brain surgery, asthma, IDDM type II, recent lower GI bleed/gastritis,gastric erosion, SSS with pacer, uterine cancer with surgery, skin cancer removals, C diff colitis, colitis, chronic kidney disease, past L arm fracture. Right arm fracture 2 History of Any Multi-Drug Resistant Organisms: MRSA Year Discovered:: 06/05/18 MDRO Source:: URINE Past Surgical History: Cholecystectomy, Heart Catheterization, Heart Catheterization With Stent, Hysterectomy, Pacemaker Additional Past Surgical History / Comment(s): Evacuation on intracranial hematoma and ressection of hemorrhagic mass, pacemaker 2016, PCI with stent 06/06/18, EGD/colonoscopy, R eye corneal implant/cataract removal, EGD 06/2018, colonoscopy, skin cancer removal. Past Anesthesia/Blood Transfusion Reactions: No Reported Reaction Additional Past Anesthesia/Blood Transfusion Reaction / Comm: . Date of Last Stent Placement:: 06/06/18 Type of Cardiac Device: Permanent Pacemaker Device Placement Date:: 04/2016 Past Psychological History: Depression Smoking Status: Never smoker Past Alcohol Use History: None Reported Past Drug Use History: None Reported - Past Family History Mother Family Medical History: Cancer, COPD, Hypertension Additional Family Medical History / Comment(s): Mother had bone cancer. Father Family Medical History: Cancer, Hypertension Additional Family Medical History / Comment(s): Father had skin cancer. Medications and Allergies Home Medications Medication Instructions Recorded Confirmed Type Albuterol Inhaler [Ventolin Hfa 2 puff INHALATION RT-Q6H PRN 03/27/18 01/11/19 History Inhaler] Ferrous Sulfate [Iron (65 MG 325 mg PO DAILY 03/27/18 01/11/19 History Elemental)] Atorvastatin [Lipitor] 40 mg PO HS #90 tab 06/07/18 01/11/19 Rx Clopidogrel [Plavix] 75 mg PO DAILY #90 tab 06/07/18 01/11/19 Rx levETIRAcetam [Keppra] 500 mg PO Q12HR 07/21/18 01/11/19 History Nitroglycerin Sl Tabs [Nitrostat] 0.4 mg SUBLINGUAL Q5M PRN tab 07/30/18 01/11/19 Rx Insulin Glargine [Lantus] 30 unit SQ HS 09/01/18 01/11/19 History Sodium Chloride 5% Ophth Soln 1 drop RIGHT EYE MOFR 09/01/18 01/11/19 History [Amanda 128] hydrALAZINE HCL [Apresoline] 50 mg PO TID PRN 09/01/18 01/11/19 History Escitalopram [Lexapro] 20 mg PO DAILY 10/25/18 01/11/19 History Acetaminophen Tab [Tylenol] 650 mg PO Q6H PRN 12/09/18 01/11/19 History QUEtiapine [SEROquel] 50 mg PO HS 12/09/18 01/11/19 History Midodrine [ProAmatine] 2.5 mg PO AC-TID #90 tab 12/12/18 01/11/19 Rx Calcium Carbonate [Calcium] 600 mg PO DAILY 01/11/19 01/11/19 History Cyanocobalamin [Vitamin B-12] 500 mcg PO DAILY 01/11/19 01/11/19 History QUEtiapine FUMARATE [SEROquel] 25 mg PO HS 01/11/19 01/11/19 History Allergies Allergy/AdvReac Type Severity Reaction Status Date / Time Latex, Natural Rubber Allergy Itching Verified 01/11/19 17:44 sulfamethoxazole Allergy Rash/Hives Verified 01/11/19 17:44 [From Bactrim] trimethoprim [From Bactrim] Allergy Rash/Hives Verified 01/11/19 17:44 Physical Examination Physical exam: Patient is awake, alert, and oriented 3 Vital signs stable Good chest excursion with deep inspiration and expiration Examination of the cervical spine reveals skin is intact with no abrasions, lacerations, or bruises; no erythema, purulence or signs of infection Full range of motion of the cervical spine with adequate flexion, extension, and bilateral rotation Buffet Waiter/Waitress strength, thumb strength, interosseous strength, biceps strength, triceps strength, and shoulder strength positive sustained bilaterally Upper extremity strength 5/5 bilaterally No upper extremity hyperreflexia bilaterally Hoffmans sign negative upper extremity bilaterally Examination of thoracic and lumbar spine reveals skin is intact with no abrasions, lacerations, or bruises; no erythema, purulence or signs of infection No pain with palpation along the thoracic spine or at the thoracolumbar junction Some pain with palpation along the midline at the lumbosacral junction Dorsiflexion, plantarflexion, and extensor hallucis longus positive sustained bilaterally No lower extremity hyperreflexia bilaterally No signs or symptoms of DVT; no calf pain No pain with internal and external rotation of the hips bilaterally Neurovascularly intact Results Pertinent studies: CT of the thoracic spine taken on 01/11/2019: T11 mild inferior wedge deformity; L1 compression fracture deformity of approximately 20% height loss of indeterminate age but has interval changes compared to previous imaging of the lumbar spine taken on 03/22/2014: T12 lytic lesion within the right aspect of the vertebral body CT of the brain and cervical spine taken on 01/11/2018: 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; chronic periventricular white matter ischemic changes; C5 6 endplate spurring and disc resulting in moderate anterior thecal sac compression; incision appears stable as compared to previous imaging - Labs Labs: Abnormal Lab Results - Last 24 Hours (Table) 01/11/19 01/11/19 01/11/19 Range/Units 14:44 16:11 17:57 BUN 29 H (7-17) mg/dL Creatinine 1.71 H (0.52-1.04) mg/dL Glucose 141 H (74-99) mg/dL POC Glucose (mg/dL) 100 H (75-99) mg/dL Urine Protein Trace H (Negative) Ur Leukocyte Esterase Moderate H (Negative) Urine WBC 47 H (0-5) /hpf Amorphous Sediment Occasional H (None) /hpf Hyaline Casts 3 H (0-2) /lpf Urine Mucus Rare H (None) /hpf 01/11/19 01/12/19 Range/Units 20:32 11:48 BUN (7-17) mg/dL Creatinine (0.52-1.04) mg/dL Glucose (74-99) mg/dL POC Glucose (mg/dL) 162 H 164 H (75-99) mg/dL Urine Protein (Negative) Ur Leukocyte Esterase (Negative) Urine WBC (0-5) /hpf Amorphous Sediment (None) /hpf Hyaline Casts (0-2) /lpf Urine Mucus (None) /hpf H & H 01/11/19 Range/Units 14:44 Hgb 14.6 (11.4-16.0) gm/dL Hct 45.9 (34.0-46.0) % Coagulation 01/11/19 Range/Units 14:44 INR 1.1 (<1.2) Result Diagrams: 01/11/19 14:44 01/13/19 09:02 Assessment and Plan Assessment: Assessment: Acute on chronic cervical pain improving with Tylenol L1 compression fracture deformity of indeterminate age with approximately 20% height loss T12 lytic lesion Chronic low back pain Orthostatic hypotension History of brain tumor with resection Chronic left lower extremity weakness following brain surgery (1) Compression fracture of L1 lumbar vertebra Current Visit: Yes Status: Acute Code(s): S32.010A - WEDGE COMPRESSION FRACTURE OF FIRST LUMBAR VERTEBRA, INIT SNOMED Code(s): 117173148 (2) Chronic low back pain Current Visit: Yes Status: Acute Code(s): M54.5 - LOW BACK PAIN; G89.29 - OTHER CHRONIC PAIN SNOMED Code(s): 591037805 (3) Cervical pain Current Visit: Yes Status: Acute Code(s): M54.2 - CERVICALGIA SNOMED Code(s): 18791913 (4) History of brain surgery Current Visit: Yes Status: Acute Code(s): Z98.890 - OTHER SPECIFIED POSTPROCEDURAL STATES SNOMED Code(s): 843237698 (5) History of uterine cancer Current Visit: Yes Status: Acute Code(s): Z85.42 - PERSONAL HISTORY OF MALIGNANT NEOPLASM OF OTH PRT UTERUS SNOMED Code(s): 895776679 (6) Orthostatic hypotension Current Visit: Yes Status: Acute Code(s): I95.1 - ORTHOSTATIC HYPOTENSION SNOMED Code(s): 88699751 (7) Weakness Current Visit: No Status: Acute Code(s): R53.1 - WEAKNESS SNOMED Code(s): 00955743 Plan: Plan: 1. After reviewing the imaging, further discussion with the patient, physical examination patient, and further discussion with Dr. Antonio Acosat, we will currently plan to continue with conservative treatment at this time. She has had an acute on chronic exacerbation of cervical pain which has improved during her admittance on Tylenol. She is not experiencing any upper extremity weakness or radiculopathy bilaterally. We recommend her continuing with Tylenol and other conservative treatment measures in regards to her cervical spine. We are not currently planning for surgical intervention at her cervical spine. Imaging shows evidence of an L1 compression fracture deformity with approximately 20% height loss of indeterminant age and no significant height loss at T11. She is not currently experiencing any pain at her thoracolumbar junction. She does have some chronic low back pain. We do not feel this fracture is acute nature and she doesn't require bracing at this time. CT imaging does show evidence of T12 lytic lesion. We discussed this lesion would need further evaluation which can be performed in the outpatient setting. She will be cleared for discharge from an orthopedic spine standpoint. We will plan to have her follow up with Eddie Vasquez PA-C or Dr. Antonio Acosta at [facility] approximately 2-3 weeks for further evaluation. At that time we may plan for further evaluation with further imaging in regards to her T12 lytic lesion. She may continue to participate in activities to tolerance. She is encouraged to continue using a walker to aid in ambulation as she has required this over the past 2-3 years following her previous brain surgery. 2. Patient will continue to be seen examined by medicine and cardiology for further treatment evaluation for her other medical diagnoses including orthostatic hypotension Time with Patient: Greater than 30 (Including obtaining history, physical examination, reviewing of imaging, and dictation.)
[2019-01-13 16:39] LABS: Glucose,Whole Blood 161 mg/dL (75-99)
[2019-01-13 20:31] LABS: Glucose,Whole Blood 132 mg/dL (75-99)
[2019-01-13] MEDS: INSULIN DETEMIR (LEVEMIR) 100 UNIT/ML SYR SQ SCH (21:14)
[2019-01-13] MEDS: ATORVASTATIN 40 MG TAB PO SCH (21:15)
[2019-01-13] MEDS: QUEtiapine 50 MG TAB PO SCH (21:15)
[2019-01-13] MEDS: QUEtiapine 25 MG TAB PO SCH (21:15)
[2019-01-14] MEDS: ACETAMINOPHEN TAB 325 MG TAB PO PRN ×3 (04:23→20:21)
[2019-01-14 06:45] LABS: Glucose,Whole Blood 132 mg/dL (75-99)
[2019-01-14] MEDS: INSULIN ASPART (NovoLOG) 100 UNIT/ML VIAL SQ SCH ×4 (09:12→20:25)
[2019-01-14] MEDS: levETIRAcetam 500 MG TAB PO SCH ×2 (09:21→20:20)
[2019-01-14] MEDS: CALCIUM CARBONATE 500 MG CHEWABLE PO SCH (09:21)
[2019-01-14] MEDS: HEPARIN SODIUM,PORCINE 5,000 UNIT/ML 1 ML VIAL SQ SCH ×3 (09:21→23:07)
[2019-01-14] MEDS: CLOPIDOGREL 75 MG TAB PO SCH (09:21)
[2019-01-14] MEDS: CYANOCOBALAMIN 500 MCG TAB PO SCH (09:22)
[2019-01-14] MEDS: MIDODRINE 5 MG TAB PO SCH ×3 (09:22→17:15)
[2019-01-14] MEDS: FERROUS SULFATE 325 MG TAB PO SCH (09:22)
[2019-01-14] MEDS: ESCITALOPRAM 20 MG TAB PO SCH (09:22)
--- NOTE | 2019-01-14 11:04 | P.PN ---
Subjective HISTORY OF PRESENTING ILLNESS This is a pleasant 73-year-old female past medical history significant for coronary artery disease s/p stent placement to the LAD 06/2018, paroxysmal atrial fibrillation not on joint terminal attack controller anti-coagulation secondary to brain bleed, sick sinus syndrome s/p permanent pacemaker implantation, hypertension, CVA with brain tumor/bleed and tumor resection, diabetes mellitus, seizures and chronic kidney disease. She follows in the office with Dr. Hawk. She is seen and examined sitting in bed in no acute distress. She continues to feel dizzy and light headed with position changes. She is working with physical therapy and plans for ECF placement upon discharge. Orthostatics obtained at 0400 supine 163/74 sitting 111/61 standing 71/36. Staff asked to repeat these readings after midodrine supine 189/63 sitting 158/70 standing 93/47. PHYSICAL EXAMINATION CONSTITUTIONAL: No apparent distress. HEENT: Head is normocephalic. Pupils are equal, round. Sclerae anicteric. Mucous membranes of the mouth are moist. No JVD. No carotid bruit. CHEST EXAMINATION: Lungs are clear to auscultation. No chest wall tenderness is noted on palpation or with deep breathing. HEART EXAMINATION: Regular rate and rhythm. S1, S2 heard. No murmurs, gallops or rub. EXTREMITIES: 2+ peripheral pulses, no lower extremity edema and no calf tenderness. ASSESSMENT Chronic dysautonomia with orthostatic changes Lumbar and cervical back discomfort History of coronary artery disease status post stent placement to the LAD June 2018 Paroxysmal atrial fibrillation on long-term anticoagulation secondary to brain bleed Sick sinus syndrome status post permanent pacemaker implantation Hypertension Diabetes mellitus Dyslipidemia Chronic kidney disease Thrombocytopenia PLAN Continue with midodrine 2.5 PO TID as ordered. Medication dosage time is imperative. Should be given in the grades 1 thru 6 visiting teacher before breakfast, noontime and before dinner around 1800. Increasing the dose or adding florinef is not appropriate given her supine hyper tension. Advise LESLI hose, increase PO salt intake and increased fluids. Sit at the edge of the bed before standing. Ambulation should be with assistance. Her risk of falls is quite high. Prognosis is guarded. Ongoing medical management. Nurse Practitioner note has been reviewed, I agree with a documented findings and plan of care. Patient was seen and examined. Objective - Vital Signs Vital signs: Vital Signs Temp 97.7 F 01/14/19 07:00 Pulse 58 L 01/14/19 07:00 Resp 18 01/14/19 07:00 BP 133/63 01/14/19 07:00 Pulse Ox 93 L 01/14/19 07:00 Intake & Output 01/13/19 01/14/19 01/14/19 18:59 06:59 18:59 Intake Total 320 Balance 320 Intake: Oral 120 Other 200 Other: Voiding Method Bedpan Bedpan Bedpan # Voids 1 1 1 - Labs CBC & Chem 7: 01/11/19 14:44 01/13/19 09:02 Labs: Abnormal Lab Results - Last 24 Hours (Table) 01/13/19 01/13/19 01/13/19 Range/Units 11:44 16:38 20:25 POC Glucose (mg/dL) 112 H 161 H 132 H (75-99) mg/dL 01/14/19 Range/Units 06:43 POC Glucose (mg/dL) 132 H (75-99) mg/dL
[2019-01-14 11:45] LABS: Glucose,Whole Blood 138 mg/dL (75-99)
[2019-01-14 16:34] LABS: Glucose,Whole Blood 124 mg/dL (75-99)
[2019-01-14 20:05] LABS: Glucose,Whole Blood 169 mg/dL (75-99)
[2019-01-14] MEDS: QUEtiapine 50 MG TAB PO SCH (20:20)
[2019-01-14] MEDS: ATORVASTATIN 40 MG TAB PO SCH (20:20)
[2019-01-14] MEDS: QUEtiapine 25 MG TAB PO SCH (20:20)
[2019-01-14] MEDS: INSULIN DETEMIR (LEVEMIR) 100 UNIT/ML SYR SQ SCH (20:21)
--- NOTE | 2019-01-14 20:48 | P.PN ---
Progress Note - Text Progress Note Date: 01/14/19 Chief Complaint: Near-syncope Hospital course: This is a pleasant 73-year-old patient follows with Dr. escamilla. 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 Lives with her son and [id number]. Does use a wheelchair. . Patient has known orthostatic hypertension. There is no seizure activity. The episode was very brief. Patient admitted with orthostatic hypertension. Admitted with dizziness with with position changes. Orthostatics confirmed again. Patient also got chronic compression fractures of the L1 vertebra. Seen by Dr. Acosta from orthopedic spine. Patient is pending disposition to the [facility]. After completion of 3 nights. Today-sitting up in a bit. Did tolerate her meals. No new issues. Review of systems: Was done for constitutional, cardiovascular, GI, pulmonary. Musculoskeletal relevant finding as above Active Medications Acetaminophen (Tylenol Tab) 650 mg PO Q6H PRN PRN Reason: MILD Pain Last Admin: 01/14/19 20:21 Dose: 650 mg Documented by: Albuterol Sulfate (Ventolin Nebulized) 2.5 mg INHALATION RT-Q6H PRN PRN Reason: Shortness Of Breath Atorvastatin Calcium (Lipitor) 40 mg PO HS [facility] Last Admin: 01/14/19 20:20 Dose: 40 mg Documented by: Calcium Carbonate/Glycine (Tums) 500 mg PO DAILY [facility] Last Admin: 01/14/19 09:21 Dose: 500 mg Documented by: Clopidogrel Bisulfate (Plavix) 75 mg PO DAILY [facility] Last Admin: 01/14/19 09:21 Dose: 75 mg Documented by: Cyanocobalamin (Vitamin B-12) 500 mcg PO DAILY [facility] Last Admin: 01/14/19 09:22 Dose: 500 mcg Documented by: Escitalopram Oxalate (Lexapro) 20 mg PO DAILY [facility] Last Admin: 01/14/19 09:22 Dose: 20 mg Documented by: Ferrous Sulfate (Feosol) 325 mg PO DAILY [facility] Last Admin: 01/14/19 09:22 Dose: 325 mg Documented by: Heparin Sodium (Porcine) (Heparin) 5,000 unit SQ Q8HR [facility] Last Admin: 01/14/19 17:15 Dose: 5,000 unit Documented by: Insulin Aspart (Novolog) 0 unit SQ [facility]; Protocol Last Admin: 01/14/19 20:25 Dose: 2 unit Documented by: Insulin Detemir (Levemir) 30 unit SQ [facility] Last Admin: 01/14/19 20:21 Dose: 30 unit Documented by: Levetiracetam (Keppra) 500 mg PO Q12HR [facility] Last Admin: 01/14/19 20:20 Dose: 500 mg Documented by: Midodrine (Proamatine) 2.5 mg PO AC-TID [facility] Last Admin: 01/14/19 17:15 Dose: 2.5 mg Documented by: Naloxone HCl (Narcan) 0.2 mg IV Q2M PRN PRN Reason: Opioid Reversal Quetiapine Fumarate (Seroquel) 50 mg PO [facility] Last Admin: 01/14/19 20:20 Dose: 50 mg Documented by: Quetiapine Fumarate (Seroquel) 25 mg PO [facility] Last Admin: 01/14/19 20:20 Dose: 25 mg Documented by: Sodium Chloride (Amanda 128) 1 drops RIGHT EYE MOFR [facility] Last Admin: 01/12/19 09:42 Dose: 1 drops Documented by: Physical examination: VITAL SIGNS: 97.9, 60, 20, 171/71, 95% on room air. Orthostatics positive GENERAL: Sitting up in the bed. EYES: Pupils equal. Conjunctiva normal. HEENT: External appearance of nose and ears normal, oral cavity grossly normal. NECK: JVD not raised; masses not palpable. HEART: First and second heart sounds are normal; no edema. LUNGS: Respiratory rate normal; clear to auscultation. ABDOMEN: Soft, nontender, liver spleen not palpable, no masses palpable. PSYCH: Alert and oriented x3; mood and affect . Anxiousl. MUSCULOSKELETAL: Evidence of osteoarthritis especially in the hands INVESTIGATIONS, reviewed in the clinical context: Pleasure 4.4 BUN 24 creatinine 1.61 Assessment: -Symptomatic orthostatic hypertension. With acute on chronic exacerbation -Chronic congestive heart failure from diastolic dysfunction EF 50-55% - sick sinus syndrome with a pacemaker -Diabetes mellitus type 2 chronically on insulin -Essential hypertension -Primary osteoarthritis -Depression otherwise specified -Persistent atrial fibrillation -Coronary artery disease prior history of stent -Chronic kidney disease stage III probably from nephrosclerosis -Chronic medical debility does use a wheelchair -Chronic L1 compression fracture Plan: Continue current medication treatment plan. Pending DC to the ECF. Care discussed with the patient.
[2019-01-15] MEDS: MIDODRINE 5 MG TAB PO SCH ×3 (06:29→17:18)
[2019-01-15 06:49] LABS: Glucose,Whole Blood 103 mg/dL (75-99)
[2019-01-15] MEDS: INSULIN ASPART (NovoLOG) 100 UNIT/ML VIAL SQ SCH ×4 (07:49→20:22)
[2019-01-15] MEDS: HEPARIN SODIUM,PORCINE 5,000 UNIT/ML 1 ML VIAL SQ SCH ×2 (07:49→17:18)
[2019-01-15] MEDS: CALCIUM CARBONATE 500 MG CHEWABLE PO SCH (07:49)
[2019-01-15] MEDS: CLOPIDOGREL 75 MG TAB PO SCH (07:49)
[2019-01-15] MEDS: FERROUS SULFATE 325 MG TAB PO SCH (07:50)
[2019-01-15] MEDS: CYANOCOBALAMIN 500 MCG TAB PO SCH (07:50)
[2019-01-15] MEDS: levETIRAcetam 500 MG TAB PO SCH ×2 (07:50→21:47)
[2019-01-15] MEDS: ESCITALOPRAM 20 MG TAB PO SCH (07:50)
[2019-01-15] MEDS: ACETAMINOPHEN TAB 325 MG TAB PO PRN ×2 (08:00→20:25)
[2019-01-15 11:51] LABS: Glucose,Whole Blood 134 mg/dL (75-99)
[2019-01-15 16:58] LABS: Glucose,Whole Blood 134 mg/dL (75-99)
--- NOTE | 2019-01-15 17:51 | P.PN ---
Progress Note - Text Progress Note Date: 01/15/19 Chief Complaint: Near-syncope Hospital course: This is a pleasant 73-year-old patient follows with Dr. escamilla. 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 Lives with her son and [id number]. Does use a wheelchair. . Patient has known orthostatic hypertension. There is no seizure activity. The episode was very brief. Patient admitted with orthostatic hypertension. Admitted with dizziness with with position changes. Orthostatics confirmed again. Patient also got chronic compression fractures of the L1 vertebra. Seen by Dr. Acosta from orthopedic spine. Patient is pending disposition to the [facility]. After completion of 3 nights. Today-Dizziness occasionally. Tolerating a diet.. Review of systems: Was done for constitutional, cardiovascular, GI, pulmonary. Musculoskeletal relevant finding as above Active Medications Acetaminophen (Tylenol Tab) 650 mg PO Q6H PRN PRN Reason: MILD Pain Last Admin: 01/15/19 08:00 Dose: 650 mg Documented by: Albuterol Sulfate (Ventolin Nebulized) 2.5 mg INHALATION RT-Q6H PRN PRN Reason: Shortness Of Breath Atorvastatin Calcium (Lipitor) 40 mg PO HS [facility] Last Admin: 01/14/19 20:20 Dose: 40 mg Documented by: Calcium Carbonate/Glycine (Tums) 500 mg PO DAILY [facility] Last Admin: 01/15/19 07:49 Dose: 500 mg Documented by: Clopidogrel Bisulfate (Plavix) 75 mg PO DAILY [facility] Last Admin: 01/15/19 07:49 Dose: 75 mg Documented by: Cyanocobalamin (Vitamin B-12) 500 mcg PO DAILY [facility] Last Admin: 01/15/19 07:50 Dose: 500 mcg Documented by: Escitalopram Oxalate (Lexapro) 20 mg PO DAILY [facility] Last Admin: 01/15/19 07:50 Dose: 20 mg Documented by: Ferrous Sulfate (Feosol) 325 mg PO DAILY [facility] Last Admin: 01/15/19 07:50 Dose: 325 mg Documented by: Heparin Sodium (Porcine) (Heparin) 5,000 unit SQ Q8HR [facility] Last Admin: 11/14/19 17:18 Dose: 5,000 unit Documented by: Insulin Aspart (Novolog) 0 unit SQ [facility]; Protocol Last Admin: 01/15/19 17:17 Dose: 1 unit Documented by: Insulin Detemir (Levemir) 30 unit SQ [facility] Last Admin: 01/14/19 20:21 Dose: 30 unit Documented by: Levetiracetam (Keppra) 500 mg PO Q12HR [facility] Last Admin: 01/15/19 07:50 Dose: 500 mg Documented by: Midodrine (Proamatine) 2.5 mg PO AC-TID [facility] Last Admin: 01/15/19 17:18 Dose: 2.5 mg Documented by: Naloxone HCl (Narcan) 0.2 mg IV Q2M PRN PRN Reason: Opioid Reversal Quetiapine Fumarate (Seroquel) 50 mg PO [facility] Last Admin: 01/14/19 20:20 Dose: 50 mg Documented by: Quetiapine Fumarate (Seroquel) 25 mg PO [facility] Last Admin: 01/14/19 20:20 Dose: 25 mg Documented by: Sodium Chloride (Amanda 128) 1 drops RIGHT EYE MOFR [facility] Last Admin: 01/12/19 09:42 Dose: 1 drops Documented by: Physical examination: VITAL SIGNS: 97.6, 60, 18, 148/67, 96% room air GENERAL: Sitting up in the bed. EYES: Pupils equal. Conjunctiva normal. HEENT: External appearance of nose and ears normal, oral cavity grossly normal. NECK: JVD not raised; masses not palpable. HEART: First and second heart sounds are normal; no edema. LUNGS: Respiratory rate normal; clear to auscultation. ABDOMEN: Soft, nontender, liver spleen not palpable, no masses palpable. PSYCH: Alert and oriented x3; mood and affect . Anxiousl. MUSCULOSKELETAL: Evidence of osteoarthritis especially in the hands INVESTIGATIONS, reviewed in the clinical context: Accu-Cheks noted Pleasure 4.4 BUN 24 creatinine 1.61 Assessment: -Symptomatic orthostatic hypertension. With acute on chronic exacerbation -Chronic congestive heart failure from diastolic dysfunction EF 50-55% - sick sinus syndrome with a pacemaker -Diabetes mellitus type 2 chronically on insulin -Essential hypertension -Primary osteoarthritis -Depression otherwise specified -Persistent atrial fibrillation -Coronary artery disease prior history of stent -Chronic kidney disease stage III probably from nephrosclerosis -Chronic medical debility does use a wheelchair -Chronic L1 compression fracture Plan: Pending discharge to the ECF. Continue current medications.
[2019-01-15 19:53] LABS: Glucose,Whole Blood 140 mg/dL (75-99)
[2019-01-15] MEDS: ATORVASTATIN 40 MG TAB PO SCH (20:21)
[2019-01-15] MEDS: QUEtiapine 25 MG TAB PO SCH (20:21)
[2019-01-15] MEDS: QUEtiapine 50 MG TAB PO SCH (21:48)
[2019-01-15] MEDS: INSULIN DETEMIR (LEVEMIR) 100 UNIT/ML SYR SQ SCH (21:48)
[2019-01-16] MEDS: HEPARIN SODIUM,PORCINE 5,000 UNIT/ML 1 ML VIAL SQ SCH ×3 (02:00→16:11)
[2019-01-16 07:07] LABS: Glucose,Whole Blood 130 mg/dL (75-99)
[2019-01-16] MEDS: INSULIN ASPART (NovoLOG) 100 UNIT/ML VIAL SQ SCH ×2 (07:23→12:31)
[2019-01-16 08:30] VITALS: BP 148/62; PULSE 60; RESP 16; TEMP 97.4
[2019-01-16] MEDS: levETIRAcetam 500 MG TAB PO SCH (08:38)
[2019-01-16] MEDS: FERROUS SULFATE 325 MG TAB PO SCH (08:38)
[2019-01-16] MEDS: CLOPIDOGREL 75 MG TAB PO SCH (08:39)
[2019-01-16] MEDS: CALCIUM CARBONATE 500 MG CHEWABLE PO SCH (08:39)
[2019-01-16] MEDS: MIDODRINE 5 MG TAB PO SCH ×2 (08:39→12:31)
[2019-01-16] MEDS: CYANOCOBALAMIN 500 MCG TAB PO SCH (08:39)
[2019-01-16] MEDS: ESCITALOPRAM 20 MG TAB PO SCH (08:39)
[2019-01-16] MEDS: SODIUM CHLORIDE 5% OPHTH DROPS 15 ML BTL RIGHT EYE SCH (08:40)
[2019-01-16 11:38] LABS: Glucose,Whole Blood 147 mg/dL (75-99)
--- NOTE | 2019-01-16 11:48 | CDI ---
Documentation Clarification Form Date: 01/16/2019 11:11:46 AM From: Mikayla Garcia RN, CCDS Admit Date: 01/13/2019 9:42:00 AM Patient Name: Zehra Montes Visit Number: [id number] Discharge Date: ATTENTION: The Clinical Documentation Specialists (CDI) and [facility] Coding Staff appreciate your assistance in clarifying documentation. Please respond to the clarification below the line at the bottom and electronically sign. The CDI & [facility] Coding staff will review the response and follow-up if needed. Please note: Queries are made part of the Legal Health Record. If you have any questions, please contact the author of this message via ITS. Dr. Jhonathan Hatfield Conflicting documentation has been found in the medical record and clarification is needed. 01/11/19 History and Physical :( Dr. Pate) Orthostatic hypotension 01/14/19 (Dr. Hatfield) and subsequent documentation: Symptomatic orthostatic hypertension. with acute on chronic exacerbation History/Risk Factors: Coronary artery disease, Paroxysmal atrial fibrillation, Sick sinus syndrome, Diabetes mellitus, chronic kidney disease Clinical Indicators: 73-year-old female came in for low back pain and dizziness. said her blood pressure was low. blood pressure on arrival was 169/65. Repeat orthostatics reveal a supping blood pressure 134/75, sitting of 114/72 and standing of 89/59. Vital signs 01/14/19: sitting 111/61 77, standing 71/36 47, supine 163/74 103 01/15/19 Vital signs: sitting 157/90 112, standing 98/60 72 01/14 cardiology consults: Chronic dysautomonia with orthostatic changes Treatment: Midodrine 2.5 mg po AC-TID Monitor orthostatic blood pressures In your opinion, what is the most clinically appropriate diagnosis for this patient? Other explanation of clinical findings Unable to determine (no explanation for clinical findings) (Last Revision: June 2017) acute on chronic exacerbation of symptomatic orthostatic hypotension from chronic dysautonomia NILAD
--- NOTE | 2019-01-16 19:29 | P.DS ---
Providers Date of admission: 01/13/19 09:42 Expected date of discharge: 01/16/19 Attending physician: Jhonathan Hatfield Consults: 01/11/19 19:32 Consult Physician Routine Consulting Provider: Jaiden Hawk Consult Reason/Comments: orthhostatic hypotension Do you want consulting provider notified?: Yes 01/11/19 22:47 Consult Physician Routine Consulting Provider: Chapito Acosta Consult Reason/Comments: compression fracture L1, lytic lesion T12, loss of disc height Do you want consulting provider notified?: Yes, Notify in am Primary care physician: [facility] Hospital Course: Chief Complaint: Near-syncope Hospital course: This is a pleasant 73-year-old patient follows with Dr. escamilla. 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 Lives with her son and [id number]. Does use a wheelchair. . Patient has known orthostatic hypertension. There is no seizure activity. The episode was very brief. Patient admitted with orthostatic hypertension. Admitted with dizziness with with position changes. Orthostatics confirmed again. Patient also got chronic compression fractures of the L1 vertebra. Seen by Dr. Acosta from orthopedic spine. hydralazine was discontinued. patient doing better. Family could not afford co-pay needed for inpatient rehab. conditioning room worker informed me that family decided to take the patient home. consultation: [facility] Physical examination: VITAL SIGNS: 97.4, 60, 16, 148/62,94% on room air GENERAL: Sitting up in the bed. EYES: Pupils equal. Conjunctiva normal. HEENT: External appearance of nose and ears normal, oral cavity grossly normal. NECK: JVD not raised; masses not palpable. HEART: First and second heart sounds are normal; no edema. LUNGS: Respiratory rate normal; clear to auscultation. ABDOMEN: Soft, nontender, liver spleen not palpable, no masses palpable. PSYCH: Alert and oriented x3; mood and affect . Anxiousl. MUSCULOSKELETAL: Evidence of osteoarthritis especially in the hands INVESTIGATIONS, reviewed in the clinical context: Accu-Cheks noted Pleasure 4.4 BUN 24 creatinine 1.61 Assessment: -Symptomatic orthostatic hypertension. With acute on chronic exacerbation -Chronic congestive heart failure from diastolic dysfunction EF 50-55% - sick sinus syndrome with a pacemaker -Diabetes mellitus type 2 chronically on insulin -Essential hypertension -Primary osteoarthritis -Depression otherwise specified -Persistent atrial fibrillation -Coronary artery disease prior history of stent -Chronic kidney disease stage III probably from nephrosclerosis -Chronic medical debility does use a wheelchair -Chronic L1 compression fracture disposition: Home with family Patient Condition at Discharge: Stable Plan - Discharge Summary New Discharge Prescriptions: Continue Ferrous Sulfate [Iron (65 MG Elemental)] 325 mg PO DAILY Albuterol Inhaler [Ventolin Hfa Inhaler] 2 puff INHALATION RT-Q6H PRN PRN Reason: Shortness Of Breath Atorvastatin [Lipitor] 40 mg PO HS #90 tab Clopidogrel [Plavix] 75 mg PO DAILY #90 tab levETIRAcetam [Keppra] 500 mg PO Q12HR Nitroglycerin Sl Tabs [Nitrostat] 0.4 mg SUBLINGUAL Q5M PRN tab PRN Reason: Chest Pain Insulin Glargine [Lantus] 30 unit SQ HS Sodium Chloride 5% Ophth Soln [Amanda 128] 1 drop RIGHT EYE MOFR Escitalopram [Lexapro] 20 mg PO DAILY Acetaminophen Tab [Tylenol] 650 mg PO Q6H PRN PRN Reason: Pain QUEtiapine [SEROquel] 50 mg PO HS Midodrine [ProAmatine] 2.5 mg PO AC-TID #90 tab QUEtiapine FUMARATE [SEROquel] 25 mg PO HS Cyanocobalamin [Vitamin B-12] 500 mcg PO DAILY Calcium Carbonate [Calcium] 600 mg PO DAILY Discontinued hydrALAZINE HCL [Apresoline] 50 mg PO TID PRN PRN Reason: Blood Pressure - High Discharge Medication List Albuterol Inhaler [Ventolin Hfa Inhaler] 2 puff INHALATION RT-Q6H PRN 03/27/18 [History] Ferrous Sulfate [Iron (65 MG Elemental)] 325 mg PO DAILY 03/27/18 [History] Atorvastatin [Lipitor] 40 mg PO HS #90 tab 06/07/18 [Rx] Clopidogrel [Plavix] 75 mg PO DAILY #90 tab 06/07/18 [Rx] levETIRAcetam [Keppra] 500 mg PO Q12HR 07/21/18 [History] Nitroglycerin Sl Tabs [Nitrostat] 0.4 mg SUBLINGUAL Q5M PRN tab 07/30/18 [Rx] Insulin Glargine [Lantus] 30 unit SQ HS 09/01/18 [History] Sodium Chloride 5% Ophth Soln [Amanda 128] 1 drop RIGHT EYE MOFR 09/01/18 [History] Escitalopram [Lexapro] 20 mg PO DAILY 10/25/18 [History] Acetaminophen Tab [Tylenol] 650 mg PO Q6H PRN 12/09/18 [History] QUEtiapine [SEROquel] 50 mg PO HS 12/09/18 [History] Midodrine [ProAmatine] 2.5 mg PO AC-TID #90 tab 12/12/18 [Rx] Calcium Carbonate [Calcium] 600 mg PO DAILY 01/11/19 [History] Cyanocobalamin [Vitamin B-12] 500 mcg PO DAILY 01/11/19 [History] QUEtiapine FUMARATE [SEROquel] 25 mg PO HS 01/11/19 [History] Follow up Appointment(s)/Referral(s): Jaiden Hawk MD [STAFF PHYSICIAN] - 01/26/19 11:30 am Eddie Vasquez PAC [PHYSICIAN HAND ENGRAVER] - 01/23/19 9:45 am () [facility], [NON-STAFF] - Jas Quinn MD [Primary Care Provider] - 01/19/19 Patient Instructions/Handouts: Hypotension (DC)
== END 2019-01-16 17:40 | disposition home health service (06) | DRG 312 ==
LOC: EC 13:08 → 1SOBS 17:59 → OBSVTOIN 01-13 09:42 → 4SSUR 01-15 10:15
PROVIDERS: ADMIT Hospitalist; ATTEND Hospitalist
DX: I95.1 Orthostatic hypotension (principal); I13.0 Hypertensive heart and chronic kidney disease with heart failure and stage 1 through stage 4 chronic kidney disease, or unspecified chronic kidney disease; I48.19 Other persistent atrial fibrillation; I50.32 Chronic diastolic (congestive) heart failure; M48.56XA Collapsed vertebra, not elsewhere classified, lumbar region, initial encounter for fracture; L89.312 Pressure ulcer of right buttock, stage 2; D69.6 Thrombocytopenia, unspecified; E11.22 Type 2 diabetes mellitus with diabetic chronic kidney disease; I49.5 Sick sinus syndrome; N18.3 Chronic kidney disease, stage 3 (moderate); E78.5 Hyperlipidemia, unspecified; F32.9 Major depressive disorder, single episode, unspecified; G89.29 Other chronic pain; I16.0 Hypertensive urgency; I25.10 Atherosclerotic heart disease of native coronary artery without angina pectoris; J45.909 Unspecified asthma, uncomplicated; M19.91 Primary osteoarthritis, unspecified site; R29.6 Repeated falls; M54.2 Cervicalgia; M54.6 Pain in thoracic spine; M89.9 Disorder of bone, unspecified; Z79.02 Long term (current) use of antithrombotics/antiplatelets; Z79.4 Long term (current) use of insulin; Z79.899 Other long term (current) drug therapy; Z91.040 Latex allergy status; Z88.1 Allergy status to other antibiotic agents; Z88.2 Allergy status to sulfonamides; Z95.0 Presence of cardiac pacemaker; Z95.5 Presence of coronary angioplasty implant and graft; Z90.710 Acquired absence of both cervix and uterus; Z90.49 Acquired absence of other specified parts of digestive tract; Z87.11 Personal history of peptic ulcer disease; Z86.73 Personal history of transient ischemic attack (TIA), and cerebral infarction without residual deficits; Z85.828 Personal history of other malignant neoplasm of skin; Z85.42 Personal history of malignant neoplasm of other parts of uterus; Z86.14 Personal history of Methicillin resistant Staphylococcus aureus infection; Z91.81 History of falling; Z98.41 Cataract extraction status, right eye; Z96.1 Presence of intraocular lens; Z80.8 Family history of malignant neoplasm of other organs or systems; Z82.49 Family history of ischemic heart disease and other diseases of the circulatory system; Z82.5 Family history of asthma and other chronic lower respiratory diseases
CPT/HCPCS: 36415; 70450; 71046; 72125; 72128; 80048; 80053; 81001; 83605; 84443; 85025; 85379; 85610; 85730; 93005; 96360; 96361; 99285

== ENCOUNTER 2019-01-26 12:38 | Observation (INO) | payer MEDICARE ==
[2019-01-26] MEDS ORDERED: SODIUM CHLORIDE 0.9% 1,000 ML IV STA ×2 (13:39)
[2019-01-26 14:12] LABS: Basophils # (A) 0.1 k/uL (0-0.2); Basophils % (A) 1 %; Eosinophils # (A) 0.2 k/uL (0-0.7); Eosinophils % (A) 2 %; HGB 14.5 gm/dL (11.4-16.0); Lymphocytes # (A) 1.7 k/uL (1.0-4.8); Lymphocytes % (A) 22 %; MCH 28.9 pg (25.0-35.0); MCHC 32.3 g/dL (31.0-37.0); MCV 89.5 fL (80.0-100.0); Mean Platelet Volume 6.9; Monocytes # (A) 0.5 k/uL (0-1.0); Monocytes % (A) 6 %; Neutrophils % (A) 67 %; Platelet Count 173 k/uL (150-450); RBC 5.03 m/uL (3.80-5.40); RDW 13.4 % (11.5-15.5); WBC 7.4 k/uL (3.8-10.6)
--- NOTE | 2019-01-26 14:16 | ED ---
Dizziness HPI - General Source: patient, RN notes reviewed, old records reviewed Mode of arrival: wheelchair Limitations: no limitations <Aparna Coleman - Last Filed: 01/26/19 16:46> <Mariana Cardenas - Last Filed: 01/31/19 14:34> - General Chief Complaint: Dizziness Stated Complaint: near syncope Time Seen by Provider: 01/26/19 13:00 - History of Present Illness Initial Comments: Patient 73-year-old female presents to return today with dizziness episodes, near syncopal episodes for the past 3 days. She reports that she was admitted a few weeks ago for similar complaints. Patient states that she's been taking her Midorin and drinking fluids as directed. Patient states that she has not had any specific fevers or chills denies any cough or chest pain at this time. She states that she has had multiple near-syncopal episodes in a facility was not standing behind her she would've fell and hit her head. Family is busy taking care of her own help with the [id number] has dialysis and son is working fr equently and states that she does not have much help at home. Patient ports that she has history of brain mass that was removed a few years ago. Patient has no other complaints at this time. (Aparna Coleman) - Related Data Home Medications Medication Instructions Recorded Confirmed Albuterol Inhaler [Ventolin Hfa 2 puff INHALATION RT-Q6H PRN 03/27/18 01/26/19 Inhaler] Ferrous Sulfate [Iron (65 MG 325 mg PO DAILY 03/27/18 01/26/19 Elemental)] levETIRAcetam [Keppra] 500 mg PO Q12HR 07/21/18 01/26/19 Insulin Glargine [Lantus] See Protocol SQ HS 09/01/18 01/26/19 Sodium Chloride 5% Ophth Soln 1 drop RIGHT EYE MOFR 09/01/18 01/26/19 [Amanda 128] Escitalopram [Lexapro] 20 mg PO DAILY 10/25/18 01/26/19 Acetaminophen Tab [Tylenol] 650 mg PO Q6H PRN 12/09/18 01/26/19 QUEtiapine [SEROquel] 50 mg PO HS 12/09/18 01/26/19 Cyanocobalamin [Vitamin B-12] 500 mcg PO DAILY 01/11/19 01/26/19 QUEtiapine FUMARATE [SEROquel] 25 mg PO HS 01/11/19 01/26/19 Previous Rx's Medication Instructions Recorded Atorvastatin [Lipitor] 40 mg PO HS #90 tab 06/07/18 Clopidogrel [Plavix] 75 mg PO DAILY #90 tab 06/07/18 Nitroglycerin Sl Tabs [Nitrostat] 0.4 mg SUBLINGUAL Q5M PRN tab 07/30/18 Midodrine [ProAmatine] 2.5 mg PO AC-TID #90 tab 12/12/18 hydrALAZINE HCL [Apresoline] 50 mg PO TID #90 tab 01/28/19 Allergies Allergy/AdvReac Type Severity Reaction Status Date / Time Latex, Natural Rubber Allergy Itching Verified 01/26/19 17:15 sulfamethoxazole Allergy Rash/Hives Verified 01/26/19 17:15 [From Bactrim] trimethoprim [From Bactrim] Allergy Rash/Hives Verified 01/26/19 17:15 Review of Systems ROS Other: All systems not noted in ROS Statement are negative. <Aparna Coleman - Last Filed: 01/26/19 16:46> ROS Other: All systems not noted in ROS Statement are negative. <Mariana Cardenas - Last Filed: 01/31/19 14:34> ROS Statement: Those systems with pertinent positive or pertinent negative responses have been documented in the HPI. 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 Right arm fracture 2 History of Any Multi-Drug Resistant Organisms: MRSA Date of last positivie culture/infection: 06/05/18 MDRO Source:: URINE Past Surgical History: Cholecystectomy, Heart Catheterization, Heart Catheterization With Stent, Hysterectomy, Pacemaker Additional Past Surgical History / Comment(s): Evacuation on intracranial hematoma and ressection of hemorrhagic mass, pacemaker 2016, PCI with stent 06/06/18, EGD/colonoscopy, R eye corneal implant/cataract removal, EGD 06/2018, colonoscopy, skin cancer removal. Past Anesthesia/Blood Transfusion Reactions: No Reported Reaction Additional Past Anesthesia/Blood Transfusion Reaction / Comment(s): . Date of Last Stent Placement:: 06/06/18 Type of Cardiac Device: Permanent Pacemaker Device Placement Date:: 04/2016 Past Psychological History: Depression Smoking Status: Never smoker Past Alcohol Use History: None Reported Past Drug Use History: None Reported - Past Family History Mother Family Medical History: Cancer, COPD, Hypertension Additional Family Medical History / Comment(s): Mother had bone cancer. Father Family Medical History: Cancer, Hypertension Additional Family Medical History / Comment(s): Father had skin cancer. <Aparna Coleman - Last Filed: 01/26/19 16:46> General Exam Limitations: no limitations General appearance: alert, in no apparent distress, other (Patient is hard of hearing) Head exam: Present: atraumatic, normocephalic, normal inspection Eye exam: Present: normal appearance, PERRL, EOMI. Absent: scleral icterus, conjunctival injection, periorbital swelling ENT exam: Present: normal exam, mucous membranes moist Neck exam: Present: normal inspection. Absent: tenderness, meningismus, lymphadenopathy Respiratory exam: Present: normal lung sounds bilaterally. Absent: respiratory distress, wheezes, rales, rhonchi, stridor Cardiovascular Exam: Present: regular rate, normal rhythm, normal heart sounds. Absent: systolic murmur, diastolic murmur, rubs, gallop, clicks GI/Abdominal exam: Present: soft, normal bowel sounds. Absent: distended, tenderness, guarding, rebound, rigid Extremities exam: Present: normal inspection, full ROM, normal capillary refill. Absent: tenderness, pedal edema, joint swelling, calf tenderness Back exam: Present: normal inspection Neurological exam: Present: alert, oriented X3, CN II-XII intact Psychiatric exam: Present: normal affect, normal mood <Aparna Coleman - Last Filed: 01/26/19 16:46> - General Exam Comments Initial Comments: 73-year-old female. Patient appears in no acute distress. (Aparna Coleman) Course <Aparna Coleman - Last Filed: 01/26/19 16:46> Vital Signs 01/26/19 01/26/19 01/26/19 12:43 14:45 15:45 Temperature 97.8 F Pulse Rate 60 60 Pulse Rate [ 63 Sitting Negative Spotter] Pulse Rate [ 68 Standing Negative Spotter ] Pulse Rate [ 60 Supine Negative Spotter] Respiratory 20 18 Rate Blood Pressure 140/62 173/86 Blood Pressure 150/61 [Right Arm Sitting] Blood Pressure 143/50 [Right Arm Standing] Blood Pressure 189/65 [Supine] O2 Sat by Pulse 98 97 Oximetry 01/26/19 16:44 Temperature 97.9 F Pulse Rate 60 Pulse Rate [ Sitting Negative Spotter] Pulse Rate [ Standing Negative Spotter ] Pulse Rate [ Supine Negative Spotter] Respiratory 18 Rate Blood Pressure 189/69 Blood Pressure [Right Arm Sitting] Blood Pressure [Right Arm Standing] Blood Pressure [Supine] O2 Sat by Pulse 99 Oximetry - Reevaluation(s) Reevaluation #1: 01/26/19 16:48 Possible orthostatic blood pressures and symptomatic dizziness on standing. (Aparna Coleman) Medical Decision Making - Lab Data Result diagrams: 01/26/19 13:50 01/26/19 13:50 - Radiology Data Radiology results: report reviewed <Aparna Coleman - Last Filed: 01/26/19 16:46> - Lab Data Result diagrams: 01/26/19 13:50 01/26/19 13:50 <Mariana Cardenas - Last Filed: 01/31/19 14:34> - Medical Decision Making 33-year-old female presents for x-rays today with chief complaint of dizziness, orthostatic episode. She's had multiple near syncopal episodes and reports that she was kvng to have her family however behind at that time to catch her and she almost fell. She isn't taking management and trying to stay hydrated. Lab work was obtained. Baseline poor kidney function with no acute changes. EKG is unimproved changed from her last admission. Patient's troponin test was reported 0-3. Denies any chest pain. Urinalysis is positive for urinary tract infection today. Urine culture will be completed. Chest x-ray was reviewed and normal. I did sent a bili Patient she was quite dizzy and lightheaded on standing even after receiving fluids. Discussed that concern for discharge and she is high fall risk. I discussed this with her family. They agree the Patient should be admitted as they cannot take full care of her at home with his concern of his multiple near syncopal episodes. This is a Dr. De La Paz who discussed case with Dr. Patel. Patient cardiology is Dr. Hawk. (Aparna Coleman) I was available for consultation in the emergency department. The history and physical exam were done by the midlevel provider. I was consulted for this patients care. I reviewed the case with the midlevel provider and based on their presentation of the patient, I agree with the assessment, medical decision making and plan of care as documented. I evaluated the patient and agree to hospital admission. Chart was dictated using Intoo[employer] dictation software. Attempts were made to adryan ect any dictation errors however some typographical errors may persist. (Mariana Cardenas) - Lab Data Lab Results 01/26/19 01/26/19 01/26/19 Range/Units 13:50 13:50 13:50 WBC 7.4 (3.8-10.6) k/uL RBC 5.03 (3.80-5.40) m/uL Hgb 14.5 (11.4-16.0) gm/dL Hct 45.0 (34.0-46.0) % MCV 89.5 (80.0-100.0) fL MCH 28.9 (25.0-35.0) pg MCHC 32.3 (31.0-37.0) g/dL RDW 13.4 (11.5-15.5) % Plt Count 173 (150-450) k/uL Neutrophils % 67 % Lymphocytes % 22 % Monocytes % 6 % Eosinophils % 2 % Basophils % 1 % Neutrophils # 5.0 (1.3-7.7) k/uL Lymphocytes # 1.7 (1.0-4.8) k/uL Monocytes # 0.5 (0-1.0) k/uL Eosinophils # 0.2 (0-0.7) k/uL Basophils # 0.1 (0-0.2) k/uL PT (9.0-12.0) sec INR (<1.2) APTT (22.0-30.0) sec Sodium 143 (137-145) mmol/L Potassium 4.0 (3.5-5.1) mmol/L Chloride 105 (98-107) mmol/L Carbon Dioxide 29 (22-30) mmol/L Anion Gap 9 mmol/L BUN 22 H (7-17) mg/dL Creatinine 1.69 H (0.52-1.04) mg/dL Est GFR (CKD-EPI)AfAm 34 (>60 ml/min/1.73 sqM) Est GFR (CKD-EPI)NonAf 30 (>60 ml/min/1.73 sqM) Glucose 126 H (74-99) mg/dL Plasma Lactic Acid Hema 1.1 (0.7-2.0) mmol/L Calcium 9.6 (8.4-10.2) mg/dL Total Bilirubin 0.8 (0.2-1.3) mg/dL AST 22 (14-36) U/L ALT 18 (9-52) U/L Alkaline Phosphatase 78 (38-126) U/L Troponin I (0.000-0.034) ng/mL Total Protein 6.8 (6.3-8.2) g/dL Albumin 4.4 (3.5-5.0) g/dL Urine Color Urine Appearance (Clear) Urine pH (5.0-8.0) Ur Specific Raymond (1.001-1.035) Urine Protein (Negative) Urine Glucose (UA) (Negative) Urine Ketones (Negative) Urine Blood (Negative) Urine Nitrite (Negative) Urine Bilirubin (Negative) Urine Urobilinogen (<2.0) mg/dL Ur Leukocyte Esterase (Negative) Urine RBC (0-5) /hpf Urine WBC (0-5) /hpf Ur Squamous Epith Cells (0-4) /hpf Urine Bacteria (None) /hpf Hyaline Casts (0-2) /lpf Urine Mucus (None) /hpf 01/26/19 01/26/19 01/26/19 Range/Units 13:50 13:50 14:35 WBC (3.8-10.6) k/uL RBC (3.80-5.40) m/uL Hgb (11.4-16.0) gm/dL Hct (34.0-46.0) % MCV (80.0-100.0) fL MCH (25.0-35.0) pg MCHC (31.0-37.0) g/dL RDW (11.5-15.5) % Plt Count (150-450) k/uL Neutrophils % % Lymphocytes % % Monocytes % % Eosinophils % % Basophils % % Neutrophils # (1.3-7.7) k/uL Lymphocytes # (1.0-4.8) k/uL Monocytes # (0-1.0) k/uL Eosinophils # (0-0.7) k/uL Basophils # (0-0.2) k/uL PT 10.5 (9.0-12.0) sec INR 1.0 (<1.2) APTT 24.1 (22.0-30.0) sec Sodium (137-145) mmol/L Potassium (3.5-5.1) mmol/L Chloride (98-107) mmol/L Carbon Dioxide (22-30) mmol/L Anion Gap mmol/L BUN (7-17) mg/dL Creatinine (0.52-1.04) mg/dL Est GFR (CKD-EPI)AfAm (>60 ml/min/1.73 sqM) Est GFR (CKD-EPI)NonAf (>60 ml/min/1.73 sqM) Glucose (74-99) mg/dL Plasma Lactic Acid Hema (0.7-2.0) mmol/L Calcium (8.4-10.2) mg/dL Total Bilirubin (0.2-1.3) mg/dL AST (14-36) U/L ALT (9-52) U/L Alkaline Phosphatase (38-126) U/L Troponin I 0.026 (0.000-0.034) ng/mL Total Protein (6.3-8.2) g/dL Albumin (3.5-5.0) g/dL Urine Color Yellow Urine Appearance Cloudy H (Clear) Urine pH 5.5 (5.0-8.0) Ur Specific Raymond 1.031 (1.001-1.035) Urine Protein 1+ H (Negative) Urine Glucose (UA) Negative (Negative) Urine Ketones Trace H (Negative) Urine Blood Small H (Negative) Urine Nitrite Negative (Negative) Urine Bilirubin Negative (Negative) Urine Urobilinogen <2.0 (<2.0) mg/dL Ur Leukocyte Esterase Large H (Negative) Urine RBC 8 H (0-5) /hpf Urine WBC 65 H (0-5) /hpf Ur Squamous Epith Cells 2 (0-4) /hpf Urine Bacteria Rare H (None) /hpf Hyaline Casts 3 H (0-2) /lpf Urine Mucus Few H (None) /hpf 01/26/19 14:15 EKG performed at 1408 shows atrial paced rhythm with prolonged QT. QRS duration is low voltage. A CT of May consider inferior ischemia and consider anterolateral ischemia. Prolonged QT. Ventricular rate 60 bpm. Normal is 304 ms. QT QTc is 96 most seconds. QT QTc is 500/500 ms. (Aparna Coleman) Disposition Is patient prescribed a controlled substance at d/c from ED?: No Time of Disposition: 16:50 <Aparna Coleman - Last Filed: 01/26/19 16:46> <Mariana Cardenas - Last Filed: 01/31/19 14:34> Clinical Impression: Syncope, near, Orthostatic hypotension, UTI (urinary tract infection) Disposition: ADMITTED IP TO THIS HOSP Condition: Stable
[2019-01-26 14:25] LABS: Albumin 4.4 g/dL (3.5-5.0); Calcium 9.6 mg/dL (8.4-10.2); Total Bilirubin 0.8 mg/dL (0.2-1.3); Total Protein 6.8 g/dL (6.3-8.2)
[2019-01-26 14:28] LABS: Partial Thromboplastin Time 24.1 sec (22.0-30.0); Prothrombin Time 10.5 sec (9.0-12.0)
--- NOTE | 2019-01-26 14:29 | XR ---
EXAMINATION TYPE: XR chest 2V DATE OF EXAM: 01/26/2019 COMPARISON: 01/11/2019 HISTORY: Shortness of breath TECHNIQUE: Frontal and lateral views of the chest are obtained. FINDINGS: Scattered senescent parenchymal changes noted. Hyperinflation compatible with COPD. No evidence for infiltrate. No evidence for atelectasis. Heart size is stable. Mediastinal structures are stable and grossly unremarkable. No evidence for hilar prominence. Degenerative changes dorsal spine. IMPRESSION: 1. No evidence for acute pulmonary disease.
[2019-01-26 15:06] LABS: Appearance,Urine Cloudy (Clear); Bacteria,Urine Rare /hpf; Bilirubin,Urine Negative (Negative); Blood,Urine Small (Negative); Color,Urine Yellow; Glucose,Urine (UA) Negative (Negative); Hyaline Casts,Urine 3 /lpf (0-2); Ketones,Urine Trace (Negative); Leukocyte Esterase,Urine Large (Negative); Mucus,Urine Few /hpf; Nitrite,Urine Negative (Negative); PH, Urine 5.5 (5.0-8.0); Protein,Urine 1+ (Negative); RBC,Urine 8 /hpf (0-5); Specific Gravity,Urine 1.031 (1.001-1.035); Squamous Epithelial Cell,Urine 2 /hpf (0-4); Urobilinogen,Urine <2.0 mg/dL (<2.0); WBC,Urine 65 /hpf (0-5)
[2019-01-26] MEDS ORDERED: SODIUM CHLORIDE 0.9% 1,000 ML IV ONE (16:28)
[2019-01-26] MEDS ORDERED: NALOXONE 0.4 MG/ML 1 ML VIAL IV PRN (16:51)
[2019-01-26] MEDS ORDERED: ONDANSETRON 4 MG/2 ML VIAL IVP PRN (16:51)
[2019-01-26] MEDS ORDERED: ACETAMINOPHEN TAB 325 MG TAB PO PRN (17:42)
[2019-01-26] MEDS ORDERED: NITROGLYCERIN SL TABS 0.4 MG TAB SUBLINGUAL PRN (17:42)
[2019-01-26] MEDS ORDERED: ALBUTEROL NEBULIZED 2.5 MG/3 ML INHALATION PRN (17:42)
--- NOTE | 2019-01-26 17:48 | P.HPIM ---
History of Present Illness H&P Date: 01/26/19 The patient is a 73-year-old female with a past medical history of diastolic CHF, sick sinus syndrome with pacemaker, type 2 diabetes, hypertension, persistent A. fib, coronary artery disease with stent, chronic kidney disease stage III that was recently discharged a week ago that presents again today with chief complaint of lightheadedness dizziness and almost passing out today, the patient that symptoms have been ongoing since her prior discharge. It was extremely bad today when she attempted to get up from bed and walk to the restroom, she reports seeing stars in her vision and feeling like she was going to pass out. She denies loss of consciousness, denies fall, she denies any chest pain, but reports exertional dyspnea, she denies cough or subjective fevers chills or night sweats. She denies any dysuria or suprapubic tenderness the patient reports decreased appetite over the last 2 days , she also reports not taking her medications today. Review of records indicate recent echocardiogram 10/06/18 with a preserved LVEF of 50-55%, moderately dilated left atrium In the ER the patient was noted to be profoundly orthostatic (see vitals), EKG showed a atrial paced rhythm, chest x-ray showed no evidence of pulmonary disease. a CBC was unremarkable, creatinine was 1.69 troponin was negative at less than 0.026, urine WBCs 65, trace ketones, nitrite negative leuk esterase positive. 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 Right arm fracture 2 History of Any Multi-Drug Resistant Organisms: MRSA Date of last positivie culture/infection: 06/05/18 MDRO Source:: URINE Past Surgical History: Cholecystectomy, Heart Catheterization, Heart Catheterization With Stent, Hysterectomy, Pacemaker Additional Past Surgical History / Comment(s): Evacuation on intracranial jian ashley and ressection of hemorrhagic mass, pacemaker 2016, PCI with stent 06/06/18, EGD/colonoscopy, R eye corneal implant/cataract removal, EGD 06/2018, colonoscopy, skin cancer removal. Past Anesthesia/Blood Transfusion Reactions: No Reported Reaction Additional Past Anesthesia/Blood Transfusion Reaction / Comment(s): . Date of Last Stent Placement:: 06/06/18 Type of Cardiac Device: Permanent Pacemaker Device Placement Date:: 04/2016 Past Psychological History: Depression Smoking Status: Never smoker Past Alcohol Use History: None Reported Past Drug Use History: None Reported - Past Family History Mother Family Medical History: Cancer, COPD, Hypertension Additional Family Medical History / Comment(s): Mother had bone cancer. Father Family Medical History: Cancer, Hypertension Additional Family Medical History / Comment(s): Father had skin cancer. Medications and Allergies Home Medications Medication Instructions Recorded Confirmed Type Albuterol Inhaler [Ventolin Hfa 2 puff INHALATION RT-Q6H PRN 03/27/18 01/11/19 History Inhaler] Ferrous Sulfate [Iron (65 MG 325 mg PO DAILY 03/27/18 01/11/19 History Elemental)] Atorvastatin [Lipitor] 40 mg PO HS #90 tab 06/07/18 01/11/19 Rx Clopidogrel [Plavix] 75 mg PO DAILY #90 tab 06/07/18 01/11/19 Rx levETIRAcetam [Keppra] 500 mg PO Q12HR 07/21/18 01/11/19 History Nitroglycerin Sl Tabs [Nitrostat] 0.4 mg SUBLINGUAL Q5M PRN tab 07/30/18 01/11/19 Rx Insulin Glargine [Lantus] 30 unit SQ HS 09/01/18 01/11/19 History Sodium Chloride 5% Ophth Soln 1 drop RIGHT EYE MOFR 09/01/18 01/11/19 History [Amanda 128] Escitalopram [Lexapro] 20 mg PO DAILY 10/25/18 01/11/19 History Acetaminophen Tab [Tylenol] 650 mg PO Q6H PRN 12/09/18 01/11/19 History QUEtiapine [SEROquel] 50 mg PO HS 12/09/18 01/11/19 History Midodrine [ProAmatine] 2.5 mg PO AC-TID #90 tab 12/12/18 01/11/19 Rx Calcium Carbonate [Calcium] 600 mg PO DAILY 01/11/19 01/11/19 History Cyanocobalamin [Vitamin B-12] 500 mcg PO DAILY 01/11/19 01/11/19 History QUEtiapine FUMARATE [SEROquel] 25 mg PO HS 01/11/19 01/11/19 History Allergies Allergy/AdvReac Type Severity Reaction Status Date / Time Latex, Natural Rubber Allergy Itching Verified 01/26/19 12:45 sulfamethoxazole Allergy Rash/Hives Verified 01/26/19 12:45 [From Bactrim] trimethoprim [From Bactrim] Allergy Rash/Hives Verified 01/26/19 12:45 Physical Exam Vitals: Vital Signs Temp Pulse Pulse Pulse Pulse Resp BP 01/26/19 16:44 97.9 F 60 18 189/69 01/26/19 15:45 63 68 60 01/26/19 14:45 60 18 173/86 01/26/19 12:43 97.8 F 60 20 140/62 BP BP BP Pulse Ox 01/26/19 16:44 99 01/26/19 15:45 150/61 143/50 189/65 01/26/19 14:45 97 01/26/19 12:43 98 Intake and Output 01/26/19 01/26/19 01/26/19 06:59 14:59 22:59 Other: Weight 81.647 kg Constitutional: No acute distress, conversant, pleasant Eyes: Anicteric sclerae, moist conjunctiva, no lid-lag, PERRLA ENMT: NC/AT,Oropharynx clear, no erythema, exudates Neck:Supple, FROM, no masses, or JVD, No carotid bruits; No thyromegaly Lungs: Clear to auscultation, Clear to percussion, Normal respiratory effort, no accessory muscle use Cardiovascular: Heart regular in rate and rhythm, No murmurs, gallops, or rubs no peripheral edema Abdominal: Soft Nontender, nom distended, no guarding, no rebound or rigidity, Normoactive bowel sounds No hepatomegaly, No splenomegaly, No palpable mass No abdominal wall hernia noted Skin: Normal temperature, tone, texture, turgor, No induration No subcutaneous nodules, No rash, lesions, No ulcers Extremities:No digital cyanosis No clubbing, Pedal pulses intact and symmetrical Radial pulses intact and symmetrical Normal gait and station, No calf tenderness Psychiatric: Alert and oriented to person, place and time, Appropriate affect Intact judgement Neuro: Muscles Strength 5/5 in all 4 extremities, Sensation to light touch grossly present throughout, Cranial nerves II-XII grossly intact. No focal sensory deficits Results CBC & Chem 7: 01/26/19 13:50 01/26/19 13:50 Labs: Abnormal Lab Results - Last 24 Hours (Table) 01/26/19 01/26/19 Range/Units 13:50 14:35 BUN 22 H (7-17) mg/dL Creatinine 1.69 H (0.52-1.04) mg/dL Glucose 126 H (74-99) mg/dL Urine Appearance Cloudy H (Clear) Urine Protein 1+ H (Negative) Urine Ketones Trace H (Negative) Urine Blood Small H (Negative) Ur Leukocyte Esterase Large H (Negative) Urine RBC 8 H (0-5) /hpf Urine WBC 65 H (0-5) /hpf Urine Bacteria Rare H (None) /hpf Hyaline Casts 3 H (0-2) /lpf Urine Mucus Few H (None) /hpf Assessment and Plan Assessment: Presyncope Orthostatic hypotension Urinary tract infection Chronic kidney disease stage III Chronic diastolic CHF sick sinus syndrome with history of pacemaker Persistent A. fib Type 2 diabetes Plan: Patient is placed in observation anticipate a less than 2 midnight stay with pre-syncope and orthostatic hypotension after presenting with lightheadedness with significantly positive orthostatic vital signs in the ER. She was given to 1 L normal saline boluses we'll continue IV fluids, the patient is restarted on her home regimen of Midodrine, with plans for cardiology consultation, noted EKG showed atrial paced rhythm, cardiac Enzymes are negative, continue to trend Troponin sequentially. Urinalysis sent for culture continue Rocephin. We will continue to follow her clinical course CODE STATUS: Full code Discussed the care with: Patient Medical decision maker: Main cisneros Anticipated discharge place: Home Prophylaxis : SCDs and heparin
[2019-01-26] MEDS ORDERED: SODIUM CHLORIDE 5% OPHTH DROPS 15 ML BTL RIGHT EYE SCH (18:00)
[2019-01-26 18:09] LABS: Glucose,Whole Blood 101 mg/dL (75-99)
[2019-01-26 20:30] LABS: Glucose,Whole Blood 164 mg/dL (75-99)
[2019-01-26] MEDS: INSULIN DETEMIR (LEVEMIR) 100 UNIT/ML SYR SQ SCH (21:34)
[2019-01-26] MEDS: INSULIN ASPART (NovoLOG) 100 UNIT/ML VIAL SQ SCH (21:35)
[2019-01-26] MEDS: ATORVASTATIN 40 MG TAB PO SCH (21:36)
[2019-01-26] MEDS: QUEtiapine 25 MG TAB PO SCH (21:36)
[2019-01-26] MEDS: hydrALAZINE HCL 50 MG TAB PO SCH (21:36)
[2019-01-26] MEDS: QUEtiapine 50 MG TAB PO SCH (21:36)
[2019-01-26] MEDS: levETIRAcetam 500 MG TAB PO SCH (21:36)
[2019-01-27 05:02] LABS: Glucose,Whole Blood 139 mg/dL (75-99)
[2019-01-27 06:48] LABS: Glucose,Whole Blood 102 mg/dL (75-99)
[2019-01-27] MEDS: INSULIN ASPART (NovoLOG) 100 UNIT/ML VIAL SQ SCH ×4 (07:09→21:02)
[2019-01-27] MEDS: MIDODRINE 5 MG TAB PO SCH ×3 (07:10→17:12)
[2019-01-27] MEDS: ESCITALOPRAM 20 MG TAB PO SCH (08:35)
[2019-01-27] MEDS: CYANOCOBALAMIN 500 MCG TAB PO SCH (08:35)
[2019-01-27] MEDS: FERROUS SULFATE 325 MG TAB PO SCH (08:35)
[2019-01-27] MEDS: CLOPIDOGREL 75 MG TAB PO SCH (08:35)
[2019-01-27] MEDS: levETIRAcetam 500 MG TAB PO SCH ×2 (08:36→21:02)
[2019-01-27] MEDS: hydrALAZINE HCL 50 MG TAB PO SCH ×3 (08:36→21:01)
[2019-01-27] MEDS ORDERED: PANTOPRAZOLE 40 MG/10 ML VIAL IV SCH (09:00)
--- NOTE | 2019-01-27 11:36 | P.CRDCN ---
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 She follows in the office with Dr. Hawk. We have been asked to see her in consultation for orthostatic changes. She has a known history of chronic dysautonomia. She was seen earlier this month and midodrine was added to her regimen. She was discharged home to live with her son and states she continued to have frequent episodes of dizziness with positions changes. She states she cannot get up and move around due to this and has little to no help at home. She denies chest pain, shortness of breath, dizziness or palpitations. DIAGNOSTICS EKG reveals sinus mechanism T-wave inversions and ST depression noted in all leads, consistent with previous EKGs. No acute changes. Chest xray for an acute cardiopulmonary process. Laboratory reviewed, cardiac enzymes negative x3, CBC unremarkable, sodium 143, potassium 4.0, creatinine 1.69. Current cardiac medications include Midodrine 2.5 mg 3 times a day, atorvastatin 40 mg daily, Plavix 75 mg daily. Most recent echocardiogram obtained October 2018 reveals preserved LV systolic function with ejection fraction 50-55%, mild MR and mild TR. REVIEW OF SYSTEMS At the time of my exam: CONSTITUTIONAL: Denies fever or chills. CARDIOVASCULAR: Denies chest pain, shortness of breath, orthopnea, PND or palpitations. RESPIRATORY: Denies cough. GASTROINTESTINAL: Denies abdominal pain, diarrhea, constipation, nausea or vomiting. MUSCULOSKELETAL: Denies myalgias. NEUROLOGIC: Complains of dizziness. Denies numbness, tingling or weakness. ENDOCRINE: Denies fatigue, weight change, polydipsia or polyurina. GENITOURINARY: Denies burning, hematuria or urgency with micturation. HEMATOLOGIC: Denies history of anemia or bleeding. PHYSICAL EXAMINATION CONSTITUTIONAL: No apparent distress. HEENT: Head is normocephalic. Pupils are equal, round. Sclerae anicteric. Mucous membranes of the mouth are moist. No JVD. No carotid bruit. CHEST EXAMINATION: Lungs are clear to auscultation. No chest wall tenderness is noted on palpation or with deep breathing. HEART EXAMINATION: Regular rate and rhythm. S1, S2 heard. No murmurs, gallops or rub. ABDOMEN: Soft, nontender. Positive bowel sounds. EXTREMITIES: 2+ peripheral pulses, no lower extremity edema and no calf tenderness. NEUROLOGIC EXAMINATION: Patient is awake, alert and oriented x3. ASSESSMENT Chronic dysautonomia with orthostatic changes History of coronary artery disease status post stent placement to the LAD June 2018 Paroxysmal atrial fibrillation on long-term anticoagulation secondary to brain bleed Sick sinus syndrome status post permanent pacemaker implantation Hypertension Diabetes mellitus Dyslipidemia Chronic kidney disease PLAN Continue Midodrine as previously ordered. Apply LESLI hose. Advised changing positions slowly and sitting on the edge of the seat for a minute before standing. Likely will require placement in manager intermediate care facility as this is a chronic disease process that is likely to be progressive. Thank you kindly for this consultation. Nurse Practitioner note has been reviewed, I agree with a documented findings and plan of care. Patient was seen and examined. Past Medical History Past Medical History: Atrial Fibrillation, Asthma, Coronary Artery Disease (CAD), Cancer, Heart Failure, CVA/TIA, Diabetes Mellitus, Hypertension, O steoarthritis (OA), Renal Disease Additional Past Medical History / Comment(s): Paroxysmal Afib not on anticoagulation due to prior brain bleed, brain mass with intracranial b leed/hematoma with surgery at [facility], seizure after brain surgery, asthma, IDDM type II, recent lower GI bleed/gastritis,gastric erosion, SSS with pacer, uterine cancer with surgery, skin cancer removals, C diff colitis, colitis, chronic kidney disease, past L arm fracture. Right arm fracture 2 History of Any Multi-Drug Resistant Organisms: MRSA Date of last positivie culture/infection: 06/05/18 MDRO Source:: URINE Past Surgical History: Cholecystectomy, Heart Catheterization, Heart Cath eterization With Stent, Hysterectomy, Pacemaker Additional Past Surgical History / Comment(s): Evacuation on intracranial hematoma and ressection of hemorrhagic mass, pacemaker 2016, PCI with stent 06/06/18, EGD/colonoscopy, R eye corneal implant/cataract removal, EGD 06/2018, colonoscopy, skin cancer removal. Past Anesthesia/Blood Transfusion Reactions: No Reported Reaction Additional Past Anesthesia/Blood Transfusion Reaction / Comment(s): . Date of Last Stent Placement:: 06/06/18 Type of Cardiac Device: Permanent Pacemaker Device Placement Date:: 04/2016 Past Psychological History: Depression Smoking Status: Never smoker Past Alcohol Use History: None Reported Past Drug Use History: None Reported - Past Family History Mother Family Medical History: Cancer, COPD, Hypertension Additional Family Medical History / Comment(s): Mother had bone cancer. Father Family Medical History: Cancer, Hypertension Additional Family Medical History / Comment(s): Father had skin cancer. Medications and Allergies Home Medications Medication Instructions Recorded Confirmed Type Albuterol Inhaler [Ventolin Hfa 2 puff INHALATION RT-Q6H PRN 03/27/18 01/26/19 History Inhaler] Ferrous Sulfate [Iron (65 MG 325 mg PO DAILY 03/27/18 01/26/19 History Elemental)] Atorvastatin [Lipitor] 40 mg PO HS #90 tab 06/07/18 01/26/19 Rx Clopidogrel [Plavix] 75 mg PO DAILY #90 tab 06/07/18 01/26/19 Rx levETIRAcetam [Keppra] 500 mg PO Q12HR 07/21/18 01/26/19 History Nitroglycerin Sl Tabs [Nitrostat] 0.4 mg SUBLINGUAL Q5M PRN tab 07/30/18 01/26/19 Rx Insulin Glargine [Lantus] See Protocol SQ HS 09/01/18 01/26/19 History Sodium Chloride 5% Ophth Soln 1 drop RIGHT EYE MOFR 09/01/18 01/26/19 History [Amanda 128] Escitalopram [Lexapro] 20 mg PO DAILY 10/25/18 01/26/19 History Acetaminophen Tab [Tylenol] 650 mg PO Q6H PRN 12/09/18 01/26/19 History QUEtiapine [SEROquel] 50 mg PO HS 12/09/18 01/26/19 History Midodrine [ProAmatine] 2.5 mg PO AC-TID #90 tab 12/12/18 01/26/19 Rx Cyanocobalamin [Vitamin B-12] 500 mcg PO DAILY 01/11/19 01/26/19 History QUEtiapine FUMARATE [SEROquel] 25 mg PO HS 01/11/19 01/26/19 History Allergies Allergy/AdvReac Type Severity Reaction Status Date / Time Latex, Natural Rubber Allergy Itching Verified 01/26/19 17:15 sulfamethoxazole Allergy Rash/Hives Verified 01/26/19 17:15 [From Bactrim] trimethoprim [From Bactrim] Allergy Rash/Hives Verified 01/26/19 17:15 Physical Exam Vitals: Vital Signs Temp Pulse Pulse Pulse Pulse Resp BP 01/27/19 05:00 97.7 F 61 18 01/26/19 21:55 61 71 60 18 01/26/19 21:00 97.6 F 71 18 01/26/19 20:09 01/26/19 18:21 97.8 F 61 16 01/26/19 16:44 97.9 F 60 18 189/69 01/26/19 15:45 63 68 60 01/26/19 14:45 60 18 173/86 01/26/19 12:43 97.8 F 60 20 140/62 BP BP BP Pulse Ox 01/27/19 05:00 134/63 94 L 01/26/19 21:55 01/26/19 21:00 193/72 96 01/26/19 20:09 95 01/26/19 18:21 196/74 96 01/26/19 16:44 99 01/26/19 15:45 150/61 143/50 189/65 01/26/19 14:45 97 01/26/19 12:43 98 Intake and Output 01/26/19 01/27/19 01/27/19 22:59 06:59 14:59 Intake Total 590 420 Balance 590 420 Intake: Oral 590 420 Other: # Voids 2 2 # Bowel Movements 1 Weight 81.647 kg Results 01/26/19 13:50 01/26/19 13:50 Cardiac Enzymes 01/26/19 01/26/19 01/26/19 Range/Units 13:50 13:50 18:30 AST 22 (14-36) U/L Troponin I 0.026 0.033 (0.000-0.034) ng/mL 01/27/19 Range/Units 01:09 AST (14-36) U/L Troponin I 0.033 (0.000-0.034) ng/mL Coagulation 01/26/19 Range/Units 13:50 PT 10.5 (9.0-12.0) sec APTT 24.1 (22.0-30.0) sec CBC 01/26/19 Range/Units 13:50 WBC 7.4 (3.8-10.6) k/uL RBC 5.03 (3.80-5.40) m/uL Hgb 14.5 (11.4-16.0) gm/dL Hct 45.0 (34.0-46.0) % Plt Count 173 (150-450) k/uL Comprehensive Metabolic Panel 01/26/19 Range/Units 13:50 Sodium 143 (137-145) mmol/L Potassium 4.0 (3.5-5.1) mmol/L Chloride 105 (98-107) mmol/L Carbon Dioxide 29 (22-30) mmol/L BUN 22 H (7-17) mg/dL Creatinine 1.69 H (0.52-1.04) mg/dL Glucose 126 H (74-99) mg/dL Calcium 9.6 (8.4-10.2) mg/dL AST 22 (14-36) U/L ALT 18 (9-52) U/L Alkaline Phosphatase 78 (38-126) U/L Total Protein 6.8 (6.3-8.2) g/dL Albumin 4.4 (3.5-5.0) g/dL Current Medications Generic Name Dose Route Start Last Admin Trade Name Freq PRN Reason Stop Dose Admin Acetaminophen 650 mg 01/26/19 17:42 Tylenol Tab PO Q6H PRN Pain Albuterol Sulfate 2.5 mg 01/26/19 17:42 Ventolin Nebulized INHALATION RT-Q6H PRN Shortness Of Breath Atorvastatin Calcium 40 mg 01/26/19 21:00 01/26/19 21:36 Lipitor PO 40 mg HS ALEXSANDER Administration Clopidogrel Bisulfate 75 mg 01/27/19 09:00 01/27/19 08:35 Plavix PO 75 mg DAILY ALEXSANDER Administration Cyanocobalamin 500 mcg 01/27/19 09:00 01/27/19 08:35 Vitamin B-12 PO 500 mcg DAILY ALEXSANDER Administration Escitalopram Oxalate 20 mg 01/27/19 09:00 01/27/19 08:35 Lexapro PO 20 mg DAILY ALEXSANDER Administration Ferrous Sulfate 325 mg 01/27/19 09:00 01/27/19 08:35 Feosol PO 325 mg DAILY ALEXSANDER Administration Hydralazine HCl 50 mg 01/26/19 22:00 01/27/19 08:36 Apresoline PO 50 mg TID ALEXSANDER Administration Ceftriaxone Sodium 1 gm/ 50 mls @ 100 mls/hr 01/27/19 09:00 01/27/19 08:33 Sodium Chloride IVPB 100 mls/hr Q24HR ALEXSANDER Administration Insulin Aspart 0 unit 01/26/19 21:00 01/27/19 07:09 Novolog SQ Not Given ACHS [facility] Protocol Insulin Detemir 10 unit 01/26/19 21:00 01/26/19 21:34 Levemir SQ 10 unit HS ALEXSANDER Administration Levetiracetam 500 mg 01/26/19 21:00 01/27/19 08:36 Keppra PO 500 mg Q12HR ALEXSANDER Administration Midodrine 2.5 mg 01/27/19 07:30 01/27/19 07:10 Proamatine PO Not Given AC-TID ALEXSANDER Naloxone HCl 0.2 mg 01/26/19 16:51 Narcan IV Q2M PRN Opioid Reversal Nitroglycerin 0.4 mg 01/26/19 17:42 Nitrostat SUBLINGUAL Q5M PRN Chest Pain Ondansetron HCl 4 mg 01/26/19 16:51 Zofran IVP Q8HR PRN Nausea And Vomiting Pantoprazole Sodium 40 mg 01/27/19 09:00 01/27/19 08:36 Protonix IV 40 mg DAILY ALEXSANDER Administration Quetiapine Fumarate 50 mg 01/26/19 21:00 01/26/19 21:36 Seroquel PO 50 mg HS ALEXSANDER Administration Quetiapine Fumarate 25 mg 01/26/19 21:00 01/26/19 21:36 Seroquel PO 25 mg HS ALEXSANDER Administration Sodium Chloride 1 drops 01/26/19 18:00 01/26/19 21:35 Amanda 128 RIGHT EYE 1 drops MOFR ALEXSANDER Administration Intake and Output 01/26/19 01/27/19 01/27/19 22:59 06:59 14:59 Intake Total 590 420 Balance 590 420 Intake: Oral 590 420 Other: # Voids 2 2 # Bowel Movements 1 Weight 81.647 kg 01/26/19 13:50 01/26/19 13:50
[2019-01-27 11:52] LABS: Glucose,Whole Blood 127 mg/dL (75-99)
[2019-01-27 16:31] VITALS: BMI 29.9
[2019-01-27 16:52] LABS: Glucose,Whole Blood 126 mg/dL (75-99)
--- NOTE | 2019-01-27 20:04 | P.PN ---
Subjective Progress Note Date: 01/27/19 (delayed charing seen at 1130) Principal diagnosis: light headness Patient seen and examined at bedside. She reports that she still feeling lightheaded. No chest pain or shortness of breath. Not feeling well enough to go home. She states her depression is at baseline. We again discussed that she will likely always have these symptoms secondary to orthostatic hypotension. I do not anticipate this to improve. It may be related to autonomic dysregulation secondary to her prior bullae ranging bleed. We discussed having home health at home, she has used up all her chcf facility days. Patient does not feel she can be discharged today. Objective - Vital Signs Vital signs: Vital Signs Temp 97.7 F 01/27/19 05:00 Pulse 60 01/27/19 12:45 Resp 18 01/27/19 12:37 BP 114/54 01/27/19 12:37 Pulse Ox 94 L 01/27/19 05:00 Intake & Output 01/27/19 01/27/19 01/28/19 06:59 18:59 06:59 Intake Total 1010 50 Balance 1010 50 Weight 81.647 kg Intake: Intake, IV Titration 50 Amount cefTRIAXone 1 gm In 50 Sodium Chloride 0.9% 50 ml @ 100 mls/hr IVPB Q24HR [facility] Rx#:[id number] Oral 1010 Other: # Voids 2 1 # Bowel Movements 1 - Exam General: non toxic, no distress, appears at stated age Derm: warm, dry Head: atraumatic, normocephalic, symmetric Eyes: EOMI, no lid lag, anicteric sclera Mouth: no lip lesion, mucus membranes moist Cardiovascular: S1S2 reg, no murmur, positive posterior tibial pulse bilateral, Lungs: CTA bilateral, no rhonchi, no rales , no accessory muscle use Abdominal: soft, nontender to palpation, no guarding, no appreciable organomega ly Ext: no gross muscle atrophy, 1+ edema, no contractures Neuro: CN II-XI grossly intact, no focal neuro deficits Psych: Alert, oriented, appropriate affect - Labs CBC & Chem 7: 01/26/19 13:50 01/26/19 13:50 Labs: Abnormal Lab Results - Last 24 Hours (Table) 01/26/19 01/27/19 01/27/19 Range/Units 20:28 01:43 06:47 POC Glucose (mg/dL) 164 H 139 H 102 H (75-99) mg/dL 01/27/19 01/27/19 Range/Units 11:51 16:50 POC Glucose (mg/dL) 127 H 126 H (75-99) mg/dL Microbiology - Last 24 Hours (Table) 01/26/19 14:35 Urine Culture - Preliminary Urine,Voided Assessment and Plan Assessment: Presyncope secondary to orthostatic hypotension - midodrine if blood pressure can tolerate the -Discussed patient doing occupational therapy, wearing compression stockings which she states she has not tolerated them plan rest, and changing positions slowly. - Significant orthostatic hypotension noted on blood pressures -Patient cannot have chcf at this point in time and she has used all her days and family is unable to pay her co-pay - concerned that this may be related to seroquel, follow-up with psych on discharge Sick sinus syndrome status post pacemaker - cardio recs: outpatient follow-up Hypertension - supine, continue hydralazine - high salt diet Diabetes mellitus, sugars controlled - continue novology and levemir Dyslipidemia -lipitor Chronic kidney disease stage III at baseline - monitor BP closely Coronary artery disease with history of stent to the LAD - plavix Abnormal UA - no symptoms of UTI - would not treat - urine culture pending DVT prophylaxis: SCDS Discussed with: Patient, nursing, case management Anticipated discharge: in AM Anticipated discharge place: home with home health A total of 25 minutes was spent on the care of this complex patient more than 50% of the time was spent in counseling and care coordination.
[2019-01-27 20:07] LABS: Glucose,Whole Blood 138 mg/dL (75-99)
[2019-01-27] MEDS: ATORVASTATIN 40 MG TAB PO SCH (21:01)
[2019-01-27] MEDS: QUEtiapine 25 MG TAB PO SCH (21:01)
[2019-01-27] MEDS: QUEtiapine 50 MG TAB PO SCH (21:02)
[2019-01-27] MEDS: INSULIN DETEMIR (LEVEMIR) 100 UNIT/ML SYR SQ SCH (21:02)
[2019-01-28 06:49] LABS: Glucose,Whole Blood 155 mg/dL (75-99)
[2019-01-28] MEDS ORDERED: PANTOPRAZOLE 40 MG TABLET PO SCH (07:30)
[2019-01-28] MEDS: MIDODRINE 5 MG TAB PO SCH ×2 (07:55→16:51)
[2019-01-28] MEDS: CLOPIDOGREL 75 MG TAB PO SCH (08:07)
[2019-01-28] MEDS: hydrALAZINE HCL 50 MG TAB PO SCH ×2 (08:07→16:50)
[2019-01-28] MEDS: FERROUS SULFATE 325 MG TAB PO SCH (08:07)
[2019-01-28] MEDS: levETIRAcetam 500 MG TAB PO SCH (08:07)
[2019-01-28] MEDS: CYANOCOBALAMIN 500 MCG TAB PO SCH (08:08)
[2019-01-28] MEDS: ESCITALOPRAM 20 MG TAB PO SCH (08:11)
[2019-01-28] MEDS: INSULIN ASPART (NovoLOG) 100 UNIT/ML VIAL SQ SCH ×2 (08:11→13:31)
--- NOTE | 2019-01-28 11:39 | P.PN ---
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 She follows in the office with Dr. Hawk. We have been asked to see her in consultation for orthostatic changes. She has a known history of chronic dysautonomia. She is seen and examined sitting up in bed in no acute distress. She states she has been up and working with physical therapy with minimal dizziness. Denies chest pain, shortness of breath or palpitations. Blood pressure 168/72 heart rate 63 afebrile and maintaining oxygen saturation on room air. PHYSICAL EXAMINATION CONSTITUTIONAL: No apparent distress. HEENT: Head is normocephalic. Pupils are equal, round. Sclerae anicteric. Mucous membranes of the mouth are moist. No JVD. No carotid bruit. CHEST EXAMINATION: Lungs are clear to auscultation. No chest wall tenderness is noted on palpation or with deep breathing. HEART EXAMINATION: Regular rate and rhythm. S1, S2 heard. No murmurs, gallops or rub. EXTREMITIES: 2+ peripheral pulses, no lower extremity edema and no calf tenderness. ASSESSMENT Chronic dysautonomia with orthostatic changes History of coronary artery disease status post stent placement to the LAD June 2018 Paroxysmal atrial fibrillation on long-term anticoagulation secondary to brain bleed Sick sinus syndrome status post permanent pacemaker implantation Hypertension Diabetes mellitus Dyslipidemia Chronic kidney disease PLAN Continue current medical regimen. Follow up with Dr. Hawk upon discharge. Nurse Practitioner note has been reviewed, I agree with a documented findings and plan of care. Patient was seen and examined. Objective - Vital Signs Vital signs: Vital Signs Temp 97 F L 01/28/19 05:00 Pulse 67 01/28/19 08:00 Resp 18 01/28/19 08:00 BP 168/72 01/28/19 05:00 Pulse Ox 95 01/28/19 05:00 Intake & Output 01/27/19 01/28/19 01/28/19 18:59 06:59 18:59 Intake Total 50 200 Balance 50 200 Weight 81.647 kg 84.5 kg Intake: Intake, IV Titration 50 Amount cefTRIAXone 1 gm In 50 Sodium Chloride 0.9% 50 ml @ 100 mls/hr IVPB Q24HR [facility] Rx#:[id number] Oral 200 Other: Voiding Method Toilet Toilet Diaper Diaper Incontinent Incontinent # Voids 1 2 1 - Labs CBC & Chem 7: 01/26/19 13:50 01/26/19 13:50 Labs: Abnormal Lab Results - Last 24 Hours (Table) 01/27/19 01/27/19 01/27/19 Range/Units 11:51 16:50 20:06 POC Glucose (mg/dL) 127 H 126 H 138 H (75-99) mg/dL 01/28/19 Range/Units 06:46 POC Glucose (mg/dL) 155 H (75-99) mg/dL Microbiology - Last 24 Hours (Table) 01/26/19 14:35 Urine Culture - Preliminary Urine,Voided Presumptive Staph aureus
[2019-01-28 11:40] VITALS: RESP 16; TEMP 98
[2019-01-28 12:26] VITALS: BP 203/54
[2019-01-28 12:29] LABS: Glucose,Whole Blood 117 mg/dL (75-99)
[2019-01-28 14:10] VITALS: PULSE 67
--- NOTE | 2019-01-29 23:25 | P.DS ---
Providers Date of admission: 01/26/19 16:46 Expected date of discharge: 01/29/19 Attending physician: Jhonathan Hatfield Consults: 01/26/19 16:51 Consult Physician Stat Consulting Provider: Jaiden Hawk Consult Reason/Comments: Orthostatic, near syncope Do you want consulting provider notified?: Yes Primary care physician: [facility] Course: Chief Complaint: Near-syncope Hospital course: This is a pleasant 73-year-old patient follows with Dr. escamilla. 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 Lives with her son and [id number]. Does use a wheelchair. . Patient has known orthostatic hypertension. Patient's had multiple admissions for the same. Also had admissions for rehab. He acute tracheal presented with presyncopal episode. Found to be orthostatic. Hydralazine was added. Patient and the family cannot afford to go to long-term care placement. Discharge plan is clinical case manager is to spoke to the family. Patient will be returning home. Patient understands the same. Prognosis discussed in detail with the patient. Just like a prior admission. Consultation: Dr. Yumiko Davidson from cardiology Physical examination: VITAL SIGNS: 98, 60, 16, 159/70-orthostatic GENERAL: Sitting up in the bed. EYES: Pupils equal. Conjunctiva normal. HEENT: External appearance of nose and ears normal, oral cavity grossly normal. NECK: JVD not raised; masses not palpable. HEART: First and second heart sounds are normal; no edema. LUNGS: Respiratory rate normal; clear to auscultation. ABDOMEN: Soft, nontender, liver spleen not palpable, no masses palpable. PSYCH: Alert and oriented x3; mood and affect . Anxiousl. MUSCULOSKELETAL: Evidence of osteoarthritis especially in the hands INVESTIGATIONS, reviewed in the clinical context: White count 7.4 hemoglobin 14.5 bun 22 creatinine 1.69 Assessment: -Symptomatic orthostatic hypertension. With acute on chronic exacerbation -Chronic congestive heart failure from diastolic dysfunction EF 50-55% - sick sinus syndrome with a pacemaker -Diabetes mellitus type 2 chronically on insulin -Essential hypertension -Primary osteoarthritis -Depression otherwise specified -Persistent atrial fibrillation -Coronary artery disease prior history of stent -Chronic kidney disease stage III probably from nephrosclerosis -Chronic medical debility does use a wheelchair -Chronic L1 compression fracture disposition: Home with family Patient Condition at Discharge: Stable Plan - Discharge Summary Discharge Rx Participant: Yes New Discharge Prescriptions: New hydrALAZINE HCL [Apresoline] 50 mg PO TID #90 tab Continue Ferrous Sulfate [Iron (65 MG Elemental)] 325 mg PO DAILY Albuterol Inhaler [Ventolin Hfa Inhaler] 2 puff INHALATION RT-Q6H PRN PRN Reason: Shortness Of Breath Atorvastatin [Lipitor] 40 mg PO HS #90 tab Clopidogrel [Plavix] 75 mg PO DAILY #90 tab levETIRAcetam [Keppra] 500 mg PO Q12HR Nitroglycerin Sl Tabs [Nitrostat] 0.4 mg SUBLINGUAL Q5M PRN tab PRN Reason: Chest Pain Insulin Glargine [Lantus] See Protocol SQ HS Sodium Chloride 5% Ophth Soln [Amanda 128] 1 drop RIGHT EYE MOFR Escitalopram [Lexapro] 20 mg PO DAILY Acetaminophen Tab [Tylenol] 650 mg PO Q6H PRN PRN Reason: Pain QUEtiapine [SEROquel] 50 mg PO HS Midodrine [ProAmatine] 2.5 mg PO AC-TID #90 tab QUEtiapine FUMARATE [SEROquel] 25 mg PO HS Cyanocobalamin [Vitamin B-12] 500 mcg PO DAILY Discharge Medication List Albuterol Inhaler [Ventolin Hfa Inhaler] 2 puff INHALATION RT-Q6H PRN 03/27/18 [History] Ferrous Sulfate [Iron (65 MG Elemental)] 325 mg PO DAILY 03/27/18 [History] Atorvastatin [Lipitor] 40 mg PO HS #90 tab 06/07/18 [Rx] Clopidogrel [Plavix] 75 mg PO DAILY #90 tab 06/07/18 [Rx] levETIRAcetam [Keppra] 500 mg PO Q12HR 07/21/18 [History] Nitroglycerin Sl Tabs [Nitrostat] 0.4 mg SUBLINGUAL Q5M PRN tab 07/30/18 [Rx] Insulin Glargine [Lantus] See Protocol SQ HS 09/01/18 [History] Sodium Chloride 5% Ophth Soln [Amanda 128] 1 drop RIGHT EYE MOFR 09/01/18 [History] Escitalopram [Lexapro] 20 mg PO DAILY 10/25/18 [History] Acetaminophen Tab [Tylenol] 650 mg PO Q6H PRN 12/09/18 [History] QUEtiapine [SEROquel] 50 mg PO HS 12/09/18 [History] Midodrine [ProAmatine] 2.5 mg PO AC-TID #90 tab 12/12/18 [Rx] Cyanocobalamin [Vitamin B-12] 500 mcg PO DAILY 01/11/19 [History] QUEtiapine FUMARATE [SEROquel] 25 mg PO HS 01/11/19 [History] hydrALAZINE HCL [Apresoline] 50 mg PO TID #90 tab 01/28/19 [Rx] Follow up Appointment(s)/Referral(s): Jaiden Hawk MD [STAFF PHYSICIAN] - 2 Weeks [facility], [NON-STAFF] - 1 Week Jas Quinn MD [Primary Care Provider] - 1-2 days (patient to call and make appointment with Dr. Quinn.) Patient Instructions/Handouts: Hydralazine (By mouth), Urinary Tract Infection in Women (DC), Syncope (DC), Hypotension (DC) Activity/Diet/Wound Care/Special Instructions: DIET TOLERATED ACTIVITY LIMITED UNTIL SEEN BY pt is to be sitting up at all times per cardiology. Discharge Disposition: HOME SELF-CARE
== END 2019-01-28 17:05 | disposition home or self-care (01) ==
LOC: EC 12:38 → 3NMEDONC 16:46
PROVIDERS: ADMIT Hospitalist; ATTEND Hospitalist
DX: I95.1 Orthostatic hypotension (principal); E11.22 Type 2 diabetes mellitus with diabetic chronic kidney disease; E78.5 Hyperlipidemia, unspecified; F32.9 Major depressive disorder, single episode, unspecified; G90.1 Familial dysautonomia [Riley-Day]; I13.0 Hypertensive heart and chronic kidney disease with heart failure and stage 1 through stage 4 chronic kidney disease, or unspecified chronic kidney disease; I25.10 Atherosclerotic heart disease of native coronary artery without angina pectoris; I48.19 Other persistent atrial fibrillation; I50.32 Chronic diastolic (congestive) heart failure; J45.909 Unspecified asthma, uncomplicated; M19.91 Primary osteoarthritis, unspecified site; M48.56XA Collapsed vertebra, not elsewhere classified, lumbar region, initial encounter for fracture; N18.3 Chronic kidney disease, stage 3 (moderate); Z79.01 Long term (current) use of anticoagulants; Z79.02 Long term (current) use of antithrombotics/antiplatelets; Z79.4 Long term (current) use of insulin; Z79.899 Other long term (current) drug therapy; Z80.8 Family history of malignant neoplasm of other organs or systems; Z82.49 Family history of ischemic heart disease and other diseases of the circulatory system; Z82.5 Family history of asthma and other chronic lower respiratory diseases; Z85.42 Personal history of malignant neoplasm of other parts of uterus; Z85.828 Personal history of other malignant neoplasm of skin; Z86.73 Personal history of transient ischemic attack (TIA), and cerebral infarction without residual deficits; Z87.11 Personal history of peptic ulcer disease; Z90.710 Acquired absence of both cervix and uterus; Z95.0 Presence of cardiac pacemaker; Z95.5 Presence of coronary angioplasty implant and graft; G40.909 Epilepsy, unspecified, not intractable, without status epilepticus; Z88.2 Allergy status to sulfonamides; Z91.040 Latex allergy status; Z16.24 Resistance to multiple antibiotics; Z90.49 Acquired absence of other specified parts of digestive tract; Z98.49 Cataract extraction status, unspecified eye; R53.81 Other malaise; Z99.3 Dependence on wheelchair
CPT/HCPCS: 96366; 96375; 96361; 96365; 99285; 36415; 93005; 97162; 85379; 80053; 83605; 84484 ×2; 85025; 85610; 85730; 81001; 87086; 87077; 87186; 71046; G0378 ×3; J0696 ×2; C9113

== ENCOUNTER → 2019-02-16 | Outpatient (CLI) | payer MEDICARE ==
--- NOTE | 2019-02-16 14:41 | NM ---
EXAMINATION TYPE: NM bone scan whole body DATE OF EXAM: 02/16/2019 COMPARISON: CT thoracic spine 01/11/2019 HISTORY: Back pain Delayed whole-body scanning was performed following the injection of 26.1 mCi Tc 99m MDP. Images acq uired 3 hours post injection. FINDINGS: Mild uptake within the cervical, thoracic and lumbar spine is likely due to degenerative disc disease , possibly facet arthropathy change. Soft tissue uptake is within normal limits. There is uptake with in the shoulders which is likely partially degenerative, suspect remote posttraumatic changes may be present additionally, correlate. No abnormal uptake to suggest metastatic disease. IMPRESSION: Nonspecific findings described above.
== END ==
LOC: RADNMMAIN 10:21
PROVIDERS: ATTEND Orthopaedic Surgery Orthopaedic Surgery of the Spine
DX: M54.5 Low back pain (principal); M54.2 Cervicalgia
CPT/HCPCS: 78306; A9503

== ENCOUNTER 2019-04-09 11:14 | Inpatient (IN) | payer MEDICARE ==
[2019-04-09] MEDS ORDERED: ASPIRIN 81 MG PO STA (11:42)
[2019-04-09] MEDS ORDERED: NITROGLYCERIN OINT 1 INCH/GM PACKET TOPICAL STA (11:42)
--- NOTE | 2019-04-09 11:45 | ED ---
General Adult HPI - General Chief complaint: Chest Pain Stated complaint: CHEST PAIN Time Seen by Provider: 04/09/19 11:20 Source: patient, RN notes reviewed, old records reviewed Mode of arrival: EMS Limitations: no limitations - History of Present Illness Initial comments: This is a 73-year-old female who was a past medical history significant for alfreda betes as well as stent placement of pacemaker placement. Patient comes in today stating at 9:30 this morning she started having chest pain radiated to her left shoulder down her left arm. Patient states she was also short of breath as well. Patient denied any diaphoretic episodes. Patient with any nausea. Patient denies any abdominal pain. Patient denies any diarrhea. Patient denies any recent fever chills or cough per patient denies being lightheaded or dizzy. Patient denies any headache patient with numbness weakness. Patient denies any swelling to the legs or calf tenderness. - Related Data Home Medications Medication Instructions Recorded Confirmed Albuterol Inhaler [Ventolin Hfa 2 puff INHALATION RT-Q6H PRN 03/27/18 04/09/19 Inhaler] Ferrous Sulfate [Iron (65 MG 325 mg PO DAILY 03/27/18 04/09/19 Elemental)] levETIRAcetam [Keppra] 500 mg PO Q12HR 07/21/18 04/09/19 Escitalopram [Lexapro] 20 mg PO DAILY 10/25/18 04/09/19 QUEtiapine [SEROquel] 50 mg PO HS 12/09/18 04/09/19 Cyanocobalamin [Vitamin B-12] 500 mcg PO DAILY 01/11/19 04/09/19 QUEtiapine FUMARATE [SEROquel] 25 mg PO HS 01/11/19 04/09/19 Calcium Carbonate 500 mg PO DAILY 04/09/19 04/09/19 Insulin Glargine [Lantus] 20 unit SQ HS 04/09/19 04/09/19 Previous Rx's Medication Instructions Recorded Atorvastatin [Lipitor] 40 mg PO HS #90 tab 06/07/18 Clopidogrel [Plavix] 75 mg PO DAILY #90 tab 06/07/18 Nitroglycerin Sl Tabs [Nitrostat] 0.4 mg SUBLINGUAL Q5M PRN tab 07/30/18 Midodrine [ProAmatine] 2.5 mg PO AC-TID #90 tab 12/12/18 Allergies Allergy/AdvReac Type Severity Reaction Status Date / Time Latex, Natural Rubber Allergy Itching Verified 01/26/19 17:15 sulfamethoxazole Allergy Rash/Hives Verified 01/26/19 17:15 [From Bactrim] trimethoprim [From Bactrim] Allergy Rash/Hives Verified 01/26/19 17:15 Review of Systems ROS Statement: Those systems with pertinent positive or pertinent negative responses have been documented in the HPI. ROS Other: All systems not noted in ROS Statement are negative. Past Medical History Past Medical History: Atrial Fibrillation, Asthma, Coronary Artery Disease (CAD), Cancer, Heart Failure, CVA/TIA, Diabetes Mellitus, Hypertension, Osteoarthritis (OA), Renal Disease Additional Past Medical History / Comment(s): Paroxysmal Afib not on anticoagulation due to prior brain bleed, brain mass with intracranial bleed/hematoma with surgery at [facility], seizure after brain surgery, asth ma, IDDM type II, recent lower GI bleed/gastritis,gastric erosion, SSS with pacer, uterine cancer with surgery, skin cancer removals, C diff colitis, colitis, chronic kidney disease, past L arm fracture. Right arm fracture 2 History of Any Multi-Drug Resistant Organisms: MRSA Date of last positivie culture/infection: 01/26/19 MDRO Source:: URINE Past Surgical History: Cholecystectomy, Heart Catheterization, Heart Catheterization With Stent, Hysterectomy, Pacemaker Additional Past Surgical History / Comment(s): Evacuation on intracranial hematoma and ressection of hemorrhagic mass, pacemaker 2016, PCI with stent 06/06/18, EGD/colonoscopy, R eye corneal implant/cataract removal, EGD 06/2018, colonoscopy, skin cancer removal. Past Anesthesia/Blood Transfusion Reactions: No Reported Reaction Additional Past Anesthesia/Blood Transfusion Reaction / Comment(s): . Date of Last Stent Placement:: 06/06/18 Type of Cardiac Device: Permanent Pacemaker Device Placement Date:: 04/2016 Past Psychological History: Depression Smoking Status: Never smoker Past Alcohol Use History: None Reported Past Drug Use History: None Reported - Past Family History Mother Family Medical History: Cancer, COPD, Hypertension Additional Family Medical History / Comment(s): Mother had bone cancer. Father Family Medical History: Cancer, Hypertension Additional Family Medical History / Comment(s): Father had skin cancer. General Exam - General Exam Comments Initial Comments: GENERAL: Patient is well-developed and well-nourished. Patient is nontoxic and well- hydrated and is in mild distress. ENT: Neck is soft and supple. No significant lymphadenopathy is noted. Oropharynx is clear. Moist mucous membranes. Neck has full range of motion without lola citing any pain. EYES: The sclera were anicteric and conjunctiva were pink and moist. Extraocular movements were intact and pupils were equal round and reactive to light. Eyelids were unremarkable. PULMONARY: Unlabored respirations. Good breath sounds bilaterally. No audible rales rhonchi or wheezing was noted. CARDIOVASCULAR: There is a regular rate and rhythm without any murmurs gallops or rubs. ABDOMEN: Soft and nontender with normal bowel sounds. SKIN: Skin is clear with no lesions or rashes and otherwise unremarkable. NEUROLOGIC: Patient is alert and oriented x3. Cranial nerves II through XII are grossly intact. Motor and sensory are also intact. Normal speech, volume and content. Symmetrical smile. MUSCULOSKELETAL: Normal extremities with adequate strength and full range of motion. LYMPHATICS: No significant lymphadenopathy is noted PSYCHIATRIC: Normal psychiatric evaluation. Limitations: no limitations Course Vital Signs 04/09/19 11:17 Temperature 98.2 F Pulse Rate 62 Respiratory 16 Rate Blood Pressure 186/86 O2 Sat by Pulse 95 Oximetry Medical Decision Making - Medical Decision Making EKG shows a paced rhythm at 60 bpm IL interval 290 QRS is 96 Q-T intervals 512 QTC is 512. Patient's EKG shows inverted T waves in the inferior leads as well as the precordial leads all of which were seen her previous EKG. Chest x-ray shows no acute abnormality. I gave the patient heparin the emergency department for his unstable angina. I spoke with Dr. noble he agreed to admit the patient admitted the patient wrote admitting orders and consult cardiology continued heparin and aspirin Nitropaste on the floor. - Lab Data Result diagrams: 04/09/19 11:22 04/09/19 11:22 Lab Results 04/09/19 04/09/19 04/09/19 Range/Units 11:22 11:22 11:22 WBC 6.1 (3.8-10.6) k/uL RBC 5.21 (3.80-5.40) m/uL Hgb 14.6 (11.4-16.0) gm/dL Hct 46.6 H (34.0-46.0) % MCV 89.5 (80.0-100.0) fL MCH 28.1 (25.0-35.0) pg MCHC 31.4 (31.0-37.0) g/dL RDW 13.1 (11.5-15.5) % Plt Count 126 L (150-450) k/uL Neutrophils % 59 % Lymphocytes % 27 % Monocytes % 8 % Eosinophils % 2 % Basophils % 1 % Neutrophils # 3.6 (1.3-7.7) k/uL Lymphocytes # 1.7 (1.0-4.8) k/uL Monocytes # 0.5 (0-1.0) k/uL Eosinophils # 0.1 (0-0.7) k/uL Basophils # 0.1 (0-0.2) k/uL PT 10.6 (9.0-12.0) sec INR 1.0 (<1.2) APTT 22.6 (22.0-30.0) sec Sodium 141 (137-145) mmol/L Potassium 4.5 (3.5-5.1) mmol/L Chloride 103 (98-107) mmol/L Carbon Dioxide 30 (22-30) mmol/L Anion Gap 8 mmol/L BUN 27 H (7-17) mg/dL Creatinine 1.46 H (0.52-1.04) mg/dL Est GFR (CKD-EPI)AfAm 41 (>60 ml/min/1.73 sqM) Est GFR (CKD-EPI)NonAf 35 (>60 ml/min/1.73 sqM) Glucose 186 H (74-99) mg/dL Calcium 9.1 (8.4-10.2) mg/dL Magnesium 1.8 (1.6-2.3) mg/dL Total Bilirubin 0.7 (0.2-1.3) mg/dL AST 23 (14-36) U/L ALT 8 (4-34) U/L Alkaline Phosphatase 72 (38-126) U/L Troponin I (0.000-0.034) ng/mL Total Protein 6.3 (6.3-8.2) g/dL Albumin 4.0 (3.5-5.0) g/dL 04/09/19 Range/Units 11:22 WBC (3.8-10.6) k/uL RBC (3.80-5.40) m/uL Hgb (11.4-16.0) gm/dL Hct (34.0-46.0) % MCV (80.0-100.0) fL MCH (25.0-35.0) pg MCHC (31.0-37.0) g/dL RDW (11.5-15.5) % Plt Count (150-450) k/uL Neutrophils % % Lymphocytes % % Monocytes % % Eosinophils % % Basophils % % Neutrophils # (1.3-7.7) k/uL Lymphocytes # (1.0-4.8) k/uL Monocytes # (0-1.0) k/uL Eosinophils # (0-0.7) k/uL Basophils # (0-0.2) k/uL PT (9.0-12.0) sec INR (<1.2) APTT (22.0-30.0) sec Sodium (137-145) mmol/L Potassium (3.5-5.1) mmol/L Chloride (98-107) mmol/L Carbon Dioxide (22-30) mmol/L Anion Gap mmol/L BUN (7-17) mg/dL Creatinine (0.52-1.04) mg/dL Est GFR (CKD-EPI)AfAm (>60 ml/min/1.73 sqM) Est GFR (CKD-EPI)NonAf (>60 ml/min/1.73 sqM) Glucose (74-99) mg/dL Calcium (8.4-10.2) mg/dL Magnesium (1.6-2.3) mg/dL Total Bilirubin (0.2-1.3) mg/dL AST (14-36) U/L ALT (4-34) U/L Alkaline Phosphatase (38-126) U/L Troponin I 0.023 (0.000-0.034) ng/mL Total Protein (6.3-8.2) g/dL Albumin (3.5-5.0) g/dL Critical Care Time Critical Care Time: Yes Total Critical Care Time: 35 Disposition Clinical Impression: Unstable angina pectoris Disposition: ADMITTED IP TO THIS HOSP Referrals: Vikram Zamarripa MD [Primary Care Provider] - 1-2 days Time of Disposition: 13:16
[2019-04-09 11:59] LABS: Basophils # (A) 0.1 k/uL (0-0.2); Basophils % (A) 1 %; Eosinophils # (A) 0.1 k/uL (0-0.7); Eosinophils % (A) 2 %; HCT 46.6 % (34.0-46.0); HGB 14.6 gm/dL (11.4-16.0); Lymphocytes # (A) 1.7 k/uL (1.0-4.8); Lymphocytes % (A) 27 %; MCH 28.1 pg (25.0-35.0); MCHC 31.4 g/dL (31.0-37.0); MCV 89.5 fL (80.0-100.0); Mean Platelet Volume 8.1; Monocytes # (A) 0.5 k/uL (0-1.0); Monocytes % (A) 8 %; Neutrophils # (A) 3.6 k/uL (1.3-7.7); Neutrophils % (A) 59 %; Platelet Count 126 k/uL (150-450); RBC 5.21 m/uL (3.80-5.40); RDW 13.1 % (11.5-15.5); WBC 6.1 k/uL (3.8-10.6)
[2019-04-09 12:10] LABS: Calcium 9.1 mg/dL (8.4-10.2); Magnesium 1.8 mg/dL (1.6-2.3); Potassium 4.5 mmol/L (3.5-5.1); Total Bilirubin 0.7 mg/dL (0.2-1.3); Total Protein 6.3 g/dL (6.3-8.2)
[2019-04-09 12:19] LABS: Partial Thromboplastin Time 22.6 sec (22.0-30.0); Prothrombin Time 10.6 sec (9.0-12.0)
--- NOTE | 2019-04-09 12:48 | XR ---
EXAMINATION TYPE: XR chest 2V DATE OF EXAM: 04/09/2019 COMPARISON: NONE TECHNIQUE: PA and lateral views submitted. HISTORY: Chest Pain FINDINGS: The lungs are clear and there is no pneumothorax, pleural effusion, or focal pneumonia. Chronic morena earing deformities of the shoulders. Cardiac device noted on the left. No overt failure. Hypertrophic and degenerative changes spine. IMPRESSION: 1. No acute process.
[2019-04-09] MEDS ORDERED: HEPARIN SODIUM,PORCINE 5,000 UNIT/ML 1 ML VIAL IV ONE (13:14)
[2019-04-09] MEDS ORDERED: NITROGLYCERIN SL TABS 0.4 MG TAB SUBLINGUAL PRN (13:38)
[2019-04-09] MEDS: HEPARIN SOD,PORK IN 0.45% NACL 25,000 UNIT in 0.45% NACL 1 250ML.BAG IV SCH (14:13)
[2019-04-09] MEDS ORDERED: ALBUTEROL NEBULIZED 2.5 MG/3 ML INHALATION PRN (17:42)
[2019-04-09] MEDS: LORazepam 2 MG/ML INJ IV PRN (18:54)
[2019-04-09] MEDS: NITROGLYCERIN OINT 1 INCH/GM PACKET TOPICAL SCH (18:54)
[2019-04-09 20:15] LABS: Glucose,Whole Blood 117 mg/dL (75-99)
[2019-04-09] MEDS ORDERED: QUEtiapine 50 MG TAB PO SCH (21:00)
[2019-04-09] MEDS ORDERED: QUEtiapine 25 MG TAB PO SCH (21:00)
--- NOTE | 2019-04-09 21:14 | HP ---
HISTORY AND PHYSICAL DATE OF SERVICE: 04/09/2019 I am covering for Dr. Zamarripa. HISTORY OF PRESENT ILLNESS: This 73-year-old woman with a past medical history of multiple medical problems including atrial fibrillation, asthma, CAD, history of CHF, diabetes type 2, hypertension, history of seizure disorder, history of brain mass with fall, intracranial bleed, multiple other medical problems, being followed by Dr. Zamarripa in the outpatient setting was complaining of chest pain. The patient reports chest pain is rather pressure type, mild to moderate intensity which felt in the morning which was felt in the left side of the chest, which radiated to the left shoulder. Patient also complaining of some hallucinations recently. There is no history of fever, rigors or chills. No history of headache, loss of consciousness or seizures at this time. PAST MEDICAL HISTORY: Asthma, atrial fibrillation, history of CAD, CHF, CVA, TIA, diabetes type 2, history of brain mass, history of cholecystectomy, CAD/stent. MEDICATIONS: Home medications are: 1. Keppra 500 mg p.o. b.i.d. 2. Seroquel 25 mg q.h.s. 4. Nitrostat 0.4 mg p.r.n. 5. ProAmatine 2.5 mg a.c. t.i.d. 6. Lantus 20 units subcu q.h.s. 7. Iron sulfate 320 mg p.o. daily. 8. Lexapro 20 mg. 9. Vitamin B12 500 mcg p.o. daily. 10.Plavix 75 mg p.o. daily. 11.Calcium carbonate 500 mg p.o. daily. 12.Lipitor 40 mg q.h.s. 13.Ventolin 2 puffs q.6h p.r.n. ALLERGIES: LATEX, BACTRIM. FAMILY HISTORY: History of COPD, cancer, hypertension, bone cancer. SOCIAL HISTORY: No history of smoking. No history of alcohol intake. REVIEW OF SYSTEMS: ENT: No diminished vision. Cardiovascular as mentioned earlier. RESPIRATORY: No cough. No hemoptysis. GI no nausea or vomiting. : No dysuria or hematuria. Nervous System as mentioned earlier. ALLERGIES/IMMUNOLOGY: No asthma or hayfever. MUSCULOSKELETAL as mentioned earlier. HEMATOLOGY/ONCOLOGY: No history of anemia. ENDOCRINE: As mentioned earlier. CONSTITUTIONAL: As mentioned earlier. DERMATOLOGY: Negative. RHEUMATOLOGY negative. PSYCHIATRY as mentioned earlier. PHYSICAL EXAMINATION: Patient is alert, oriented times three. Pulse is 60. Blood pressure is 179/55. Went up to 209/75, respiration 18, temperature 98.2, pulse ox 98% on room air. HEENT: Conjunctivae normal. Oral mucosa moist. NECK no jugular venous distention. No carotid bruit. No lymph node enlargement. CARDIOVASCULAR: S1, S2 muffled. No S3, no S4. RESPIRATORY: Breath sounds diminished in the bases. A few scattered rhonchi. No crackles. ABDOMEN: Soft, nontender. No mass palpable. LEGS: No edema. No swelling. NERVOUS SYSTEM: Higher functions as mentioned earlier. Moves all 4 limbs. No focal motor or sensory deficits. SKIN: No ulcer, rash or bleeding. JOINTS: No active deforming arthropathy. LABS: WBC 6.9, hemoglobin 14.6, platelets 126 and creatinine is 1.46. The baseline creatinine is around 1.5. Otherwise, the EKG shows diffuse ST-T changes. ASSESSMENT: 1. Chest pain possible unstable angina. 2. Delirium, multifactorial, possibly. 3. Atrial fibrillation, paroxysmal. 4. History of asthma. 5. History of coronary artery disease. 6. History of congestive heart failure, ejection fraction unknown. 7. History of cerebrovascular accident, transient ischemic attack. 8. History of diabetes type 2. 9. Hypertension. 10.History of degenerative joint disease. 11.Accelerated hypertension, hypertensive urgency. 12.Chronic kidney stage III. 13.Seizure disorder. 14.History of brain mass with intracranial bleed and hematoma. 15.History of paroxysmal atrial fibrillation. 16.History of bilateral peripheral neuropathy. 17.History of orthostatic hypotension. 18.History of pacemaker. 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 20.History of gastric erosion and gastritis. 21.History of C-difficile colitis. 22.History of Methicillin-resistant Staphylococcus aureus. 23.History of cholecystectomy. 24.History of coronary artery disease stent. 25.History of permanent pacemaker. 26.Depression. 27.Gait dysfunction. RECOMMENDATIONS AND DISCUSSION: This 73-year-old woman who presented with multiple medical issues, we will monitor the patient closely, continue the current medications, management and symptomatic treatment. Otherwise, I recommend rule out possible myocardial infarction. Cardiology consultation. Possible stress test. Otherwise, we will compare with previous EKGs. Other than that, resume the home medication. Patient also had delirium which is of recent onset. We reviewed the medications and I would also recommend a CT scan of the brain also to ensure stability. Otherwise, prognosis guarded because of multiple complex medical issues. Discussed with the patient who understands and agrees. Further recommendations to follow. Copy of dictation being forwarded to Dr. Zamarripa who is the primary care physician. MMJULYL / MOLLYN: [id number] / [email or web address]
[2019-04-09] MEDS: levETIRAcetam 500 MG TAB PO SCH (21:34)
[2019-04-09] MEDS: INSULIN DETEMIR (LEVEMIR) 100 UNIT/ML SYR SQ SCH (21:34)
[2019-04-09] MEDS: INSULIN ASPART (NovoLOG) 100 UNIT/ML VIAL SQ SCH (21:34)
[2019-04-09] MEDS: ATORVASTATIN 40 MG TAB PO SCH (21:34)
[2019-04-10] MEDS: NITROGLYCERIN OINT 1 INCH/GM PACKET TOPICAL SCH ×5 (00:40→23:56)
[2019-04-10] MEDS: LORazepam 2 MG/ML INJ IV PRN (00:41)
[2019-04-10 04:22] LABS: Basophils # (A) 0.1 k/uL (0-0.2); Basophils % (A) 1 %; Eosinophils # (A) 0.2 k/uL (0-0.7); Eosinophils % (A) 3 %; HCT 44.4 % (34.0-46.0); HGB 13.7 gm/dL (11.4-16.0); Lymphocytes # (A) 1.3 k/uL (1.0-4.8); Lymphocytes % (A) 19 %; MCH 27.6 pg (25.0-35.0); MCHC 30.8 g/dL (31.0-37.0); MCV 89.7 fL (80.0-100.0); Monocytes # (A) 0.4 k/uL (0-1.0); Monocytes % (A) 7 %; Neutrophils # (A) 4.7 k/uL (1.3-7.7); Neutrophils % (A) 70 %; Platelet Count 127 k/uL (150-450); RBC 4.95 m/uL (3.80-5.40); RDW 13.2 % (11.5-15.5); WBC 6.8 k/uL (3.8-10.6)
[2019-04-10 04:43] LABS: Calcium 8.9 mg/dL (8.4-10.2); Potassium 3.9 mmol/L (3.5-5.1)
[2019-04-10 06:01] LABS: Glucose,Whole Blood 145 mg/dL (75-99)
--- NOTE | 2019-04-10 08:18 | CT ---
EXAMINATION TYPE: CT brain wo con DATE OF EXAM: 04/10/2019 COMPARISON: 01/11/2019 HISTORY: altered mental status CT DLP: 1098.[address] of the head is obtained there is evidence of large area of encephalomalacia involving right occipital, temporal and parietal lobes similar in appearance to the prior exam. No acute hemorr mik. No midline shift. Low-attenuation surrounding the ventricles within the white matter likely in the basis of remote microvascular ischemia. Postsurgical change involving the calvarium. Hyperostosis noted. Intracranial atherosclerotic changes. IMPRESSION: 1. No evidence of acute hemorrhage or mass effect. If symptoms persist or there is clinical concern for acute ischemia correlate with MRI. 2. Remote ischemic change.
[2019-04-10] MEDS: INSULIN ASPART (NovoLOG) 100 UNIT/ML VIAL SQ SCH ×4 (08:52→20:33)
[2019-04-10] MEDS: MIDODRINE 5 MG TAB PO SCH ×3 (09:01→17:56)
[2019-04-10] MEDS: CALCIUM CARBONATE 500 MG CHEWABLE PO SCH (09:07)
[2019-04-10] MEDS: CLOPIDOGREL 75 MG TAB PO SCH (09:07)
[2019-04-10] MEDS: CYANOCOBALAMIN 500 MCG TAB PO SCH (09:07)
[2019-04-10] MEDS: FERROUS SULFATE 325 MG TAB PO SCH (09:07)
[2019-04-10] MEDS: ASPIRIN 325 MG TAB PO SCH (09:07)
[2019-04-10] MEDS: ESCITALOPRAM 20 MG TAB PO SCH (09:07)
--- NOTE | 2019-04-10 09:24 | P.CRDCN ---
History of Present Illness Consult date: 04/10/19 Requesting physician: Leatha Toledo Consult reason: chest pain Chief complaint: Chest pain History of present illness: This is a 73-year-old female who follows regularly with Dr. Mauro in the office. She has a known history of coronary artery disease with prior stenting of the LAD in June 2018, paroxysmal atrial fibrillation, not on mcc anticoagulation because of history of brain bleed, sick sinus syndrome with prior pacemaker implantation, chronic kidney disease, diabetes, hyperlipidemia. She presented to the hospital on this occasion with symptoms of chest discomfort. According to the patient, she was feeling a heaviness in her chest that radiated into her left shoulder and down her left arm, she did feel short of breath. She denied any nausea or diaphoresis with this. She came to the hospital for further evaluation and treatment. Her EKG on presentation here s howed paced rhythm with underlying atrial fibrillation. Chest x-ray did not reveal any acute process. CAT scan of the brain was performed because of some altered mental status, did not reveal any evidence of acute hemorrhage or mass effect. Remote ischemic change. Blood pressure on arrival here 186/86 with a heart rate in the 60s, 95% on room air. Blood pressure this morning 206/80 with a heart rate in the 60s, 94% on room air. White blood cell count is normal, hemoglobin 13.7, platelet count 127. Sodium 142, potassium 3.9, BUN 26, creatinine 1.3. Magnesium 1.8. Troponins 0.023, 0.032, 0.037. At the time of my examination this morning the patient denies having any chest discomfort. Past Medical History Past Medical History: Atrial Fibrillation, Asthma, Coronary Artery Disease (CAD), Cancer, Heart Failure, CVA/TIA, Diabetes Mellitus, Eye Disorder, Hypertension, Osteoarthritis (OA), Renal Disease, Seizure Disorder Additional Past Medical History / Comment(s): Brain mass/fall with intracranial bleed/hematome-surgery at [facility], seizure after brain surgery, paroxysmal Afib, IDDM type II, neuropathy bilateral feet, orthostatic hypotension, SSS with pacemaker, L1 compression fx, CKD stage III, blind in L eye, UTIs, lower GI bleed, gastritis, gastric erosion, CDiff colitis, skin cancer with removals, past L arm fracture, past R arm fracture x2. History of Any Multi-Drug Resistant Organisms: MRSA Date of last positivie culture/infection: 01/26/19 MDRO Source:: URINE Past Surgical History: Cholecystectomy, Heart Catheterization, Heart Catheterization With Stent, Hysterectomy, Pacemaker Additional Past Surgical History / Comment(s): Evacuation of intracranial jian ashley and ressection of hemorrhagic mass, pacemaker 2016, PCI with stent 06/06/18, EGD/colonoscopy, R eye corneal implant/cataract removal, EGD 06/2018, colonoscopy, skin cancer removal. Past Anesthesia/Blood Transfusion Reactions: No Reported Reaction Additional Past Anesthesia/Blood Transfusion Reaction / Comment(s): . Date of Last Stent Placement:: 06/06/18 Type of Cardiac Device: Permanent Pacemaker Device Placement Date:: 04/2016 Smoking Status: Never smoker - Past Family History Mother Family Medical History: Cancer, COPD, Hypertension Additional Family Medical History / Comment(s): Mother had bone cancer. Father Family Medical History: Cancer, Hypertension Additional Family Medical History / Comment(s): Father had skin cancer. Medications and Allergies Home Medications Medication Instructions Recorded Confirmed Type Albuterol Inhaler [Ventolin Hfa 2 puff INHALATION RT-Q6H PRN 03/27/18 04/09/19 History Inhaler] Ferrous Sulfate [Iron (65 MG 325 mg PO DAILY 03/27/18 04/09/19 History Elemental)] Atorvastatin [Lipitor] 40 mg PO HS #90 tab 06/07/18 04/09/19 Rx Clopidogrel [Plavix] 75 mg PO DAILY #90 tab 06/07/18 04/09/19 Rx levETIRAcetam [Keppra] 500 mg PO Q12HR 07/21/18 04/09/19 History Nitroglycerin Sl Tabs [Nitrostat] 0.4 mg SUBLINGUAL Q5M PRN tab 07/30/18 04/09/19 Rx Escitalopram [Lexapro] 20 mg PO DAILY 10/25/18 04/09/19 History QUEtiapine [SEROquel] 50 mg PO HS 12/09/18 04/09/19 History Midodrine [ProAmatine] 2.5 mg PO AC-TID #90 tab 12/12/18 04/09/19 Rx Cyanocobalamin [Vitamin B-12] 500 mcg PO DAILY 01/11/19 04/09/19 History QUEtiapine FUMARATE [SEROquel] 25 mg PO HS 01/11/19 04/09/19 History Calcium Carbonate 500 mg PO DAILY 04/09/19 04/09/19 History Insulin Glargine [Lantus] 20 unit SQ HS 04/09/19 04/09/19 History Allergies Allergy/AdvReac Type Severity Reaction Status Date / Time Latex, Natural Rubber Allergy Itching Verified 01/26/19 17:15 sulfamethoxazole Allergy Rash/Hives Verified 01/26/19 17:15 [From Bactrim] trimethoprim [From Bactrim] Allergy Rash/Hives Verified 01/26/19 17:15 Physical Exam Vitals: Vital Signs Temp Pulse Pulse Pulse Resp BP BP 04/10/19 08:00 96.6 F L 64 16 206/81 04/10/19 07:54 96.6 F L 60 16 218/83 04/10/19 04:00 60 68 18 04/10/19 03:27 98.5 F 68 18 166/74 04/10/19 00:00 98 F 60 60 18 169/70 04/09/19 20:00 98.4 F 60 66 18 175/74 04/09/19 19:37 175/71 04/09/19 18:15 96.3 F L 60 60 20 198/105 04/09/19 17:41 98.2 F 60 18 179/55 04/09/19 17:25 60 18 179/55 04/09/19 16:52 18 188/68 04/09/19 11:17 98.2 F 62 16 186/86 Pulse Ox 04/10/19 08:00 94 L 04/10/19 07:54 92 L 04/10/19 04:00 04/10/19 03:27 94 L 04/10/19 00:00 98 04/09/19 20:00 95 04/09/19 19:37 04/09/19 18:15 98 04/09/19 17:41 99 04/09/19 17:25 99 04/09/19 16:52 98 04/09/19 11:17 95 Intake and Output 04/09/19 04/10/19 04/10/19 22:59 06:59 14:59 Intake Total 160 Balance 160 Intake: Intake, IV Titration 40 Amount Heparin Sod,Pork in 0.45% 40 NaCl 25,000 unit In 0.45 % NaCl 1 250ml.bag @ 12 UNITS/KG/HR 9.743 mls/hr IV .Q24H [facility] Rx#: [id number] Oral 120 Other: Voiding Method Toilet Toilet # Voids 2 1 # Bowel Movements 1 Weight 81.193 kg 77.5 kg PHYSICAL EXAMINATION: GENERAL: 73-year-old female in no acute distress at the time of my examination HEENT: Head is atraumatic, normocephalic. Pupils equal, round. Sclera anicteric. Conjunctiva are clear. Mucous membranes of the mouth are moist. Neck is supple. There is no elevated jugular venous pressure. No carotid bruit is heard. HEART EXAMINATION: Heart S1 and S2 irregularly irregular CHEST EXAMINATION: Lungs are clear to auscultation and precussion. No chest wall tenderness is noted on palpation or with deep breathing. ABDOMEN: Soft, nontender. Bowel sounds are heard. No organomegaly noted. EXTREMITIES: 2+ peripheral pulses with no evidence of peripheral edema and no calf tenderness noted. NEUROLOGIC patient is awake, alert and oriented 3 . . Results 04/10/19 03:44 04/10/19 03:44 Cardiac Enzymes 04/09/19 04/09/19 04/09/19 Range/Units 11:22 11:22 17:32 AST 23 (14-36) U/L Troponin I 0.023 0.032 (0.000-0.034) ng/mL 04/09/19 Range/Units 22:38 AST (14-36) U/L Troponin I 0.037 H* (0.000-0.034) ng/mL Coagulation 04/09/19 04/10/19 Range/Units 11:22 03:44 PT 10.6 (9.0-12.0) sec APTT 22.6 43.3 H (22.0-30.0) sec Lipids 04/10/19 Range/Units 03:44 Triglycerides 106 (<150) mg/dL Cholesterol 74 (<200) mg/dL HDL Cholesterol 39 L (40-60) mg/dL CBC 04/09/19 04/10/19 Range/Units 11:22 03:44 WBC 6.1 6.8 (3.8-10.6) k/uL RBC 5.21 4.95 (3.80-5.40) m/uL Hgb 14.6 13.7 (11.4-16.0) gm/dL Hct 46.6 H 44.4 (34.0-46.0) % Plt Count 126 L 127 L (150-450) k/uL Comprehensive Metabolic Panel 04/09/19 04/10/19 Range/Units 11:22 03:44 Sodium 141 142 (137-145) mmol/L Potassium 4.5 3.9 (3.5-5.1) mmol/L Chloride 103 105 (98-107) mmol/L Carbon Dioxide 30 30 (22-30) mmol/L BUN 27 H 26 H (7-17) mg/dL Creatinine 1.46 H 1.35 H (0.52-1.04) mg/dL Glucose 186 H 137 H (74-99) mg/dL Calcium 9.1 8.9 (8.4-10.2) mg/dL AST 23 (14-36) U/L ALT 8 (4-34) U/L Alkaline Phosphatase 72 (38-126) U/L Total Protein 6.3 (6.3-8.2) g/dL Albumin 4.0 (3.5-5.0) g/dL Current Medications Generic Name Dose Route Start Last Admin Trade Name Freq PRN Reason Stop Dose Admin Albuterol Sulfate 2.5 mg 04/09/19 17:42 Ventolin Nebulized INHALATION RT-Q6H PRN Shortness Of Breath Aspirin 325 mg 04/10/19 09:00 04/10/19 09:07 Aspirin PO 325 mg DAILY [facility] Administration Atorvastatin Calcium 40 mg 04/09/19 21:00 04/09/19 21:34 Lipitor PO 40 mg HS [facility]ANDER Administration Calcium Carbonate/Glycine 500 mg 04/10/19 09:00 04/10/19 09:07 Tums PO 500 mg DAILY A[facility]SANDER Administration Clopidogrel Bisulfate 75 mg 04/10/19 09:00 04/10/19 09:07 Plavix PO 75 mg DAILY [facility]ER Administration Cyanocobalamin 500 mcg 04/10/19 09:00 04/10/19 09:07 Vitamin B-12 PO 500 mcg DAILY [facility]ER Administration Escitalopram Oxalate 20 mg 04/10/19 09:00 04/10/19 09:07 Lexapro PO 20 mg DAILY A[facility]ANDER Administration Ferrous Sulfate 325 mg 04/10/19 09:00 04/10/19 09:07 Feosol PO 325 mg DAILY A[facility] Administration Hydralazine HCl 10 mg 04/09/19 16:32 Apresoline IVP Q6HR PRN Blood Pressure - High Heparin Sodium/Sodium Chloride 250 mls @ 9.743 mls/hr 04/09/19 13:15 04/09/19 14:13 25,000 unit/ Sodium Chloride IV 12 units/kg/hr .Q24H [facility] 9.743 mls/hr Administration Protocol 12 UNITS/KG/HR Insulin Aspart 0 unit 04/09/19 21:00 04/10/19 08:52 Novolog SQ Not Given ACHS [facility] Protocol Insulin Detemir 20 unit 04/09/19 21:00 04/09/19 21:34 Levemir SQ 20 unit HS ALEXSANDER Administration Levetiracetam 500 mg 04/09/19 21:00 04/09/19 21:34 Keppra PO 500 mg Q12HR [facility] Administration Lorazepam 1 mg 04/09/19 18:43 04/10/19 00:41 Ativan IV 1 mg Q8HR PRN Administration Agitation or Acute Anxiety Midodrine 2.5 mg 04/10/19 07:30 04/10/19 09:01 Proamatine PO Not Given AC-TID [facility] Nitroglycerin 0.4 mg 04/09/19 13:38 Nitrostat SUBLINGUAL Q5M PRN Chest Pain Nitroglycerin 1 inch 04/09/19 18:00 04/10/19 05:14 Nitro-Bid Oint TOPICAL 1 inch Q6HR [facility] Administration Quetiapine Fumarate 25 mg 04/09/19 21:00 04/09/19 21:34 Seroquel PO 25 mg HS [facility]ANDER Administration Quetiapine Fumarate 50 mg 04/09/19 21:00 04/09/19 21:34 Seroquel PO 50 mg HS ALEXSANDER Administration Intake and Output 04/09/19 04/10/19 04/10/19 22:59 06:59 14:59 Intake Total 160 Balance 160 Intake: Intake, IV Titration 40 Amount Heparin Sod,Pork in 0.45% 40 NaCl 25,000 unit In 0.45 % NaCl 1 250ml.bag @ 12 UNITS/KG/HR 9.743 mls/hr IV .Q24H [facility] Rx#: [id number] Oral 120 Other: Voiding Method Toilet Toilet # Voids 2 1 # Bowel Movements 1 Weight 81.193 kg 77.5 kg 04/10/19 03:44 04/10/19 03:44 EKG Interpretations (text) EKG shows paced rhythm with underlying atrial fibrillation Assessment and Plan Plan: Assessment and plan #1 chest pain, rule out possible acute coronary syndrome. Troponins 0.023, 0.032, 0.037. EKG shows a paced rhythm with underlying atrial fibrillation, no acute changes noted. Patient's most recent cardiac procedure was performed in June 2018 at which patient underwent angioplasty and stenting of the LAD. #2 coronary artery disease history with LAD stenting in June 2018 #3 persistent atrial fibrillation, not on anticoagulation because of history of brain bleed #4 hyperlipidemia #5 hypertensive urgency #6 history of CVA #7 chronic kidney disease #8 history of seizures #9 orthostatic hypotension history Plan Patient's most recent echocardiogram with Doppler study was performed in October which revealed a normal left ventricular systolic function. We will repeat an echo on this admission. Decrease aspirin to 81 mg daily, continue Lipitor, Nitropaste, we will start the patient on beta alexis, she's not on an EMILEE inhibitor because of abnormal renal function. Consider Norvasc if the patient's blood pressure does not improve. We will continue to monitor orthostatics as well. Patient may need to undergo cardiac catheterization or stress testing. Further recommendations to follow. DNP note has been reviewed, I agree with a documented findings and plan of care. Patient was seen and examined.
--- NOTE | 2019-04-10 10:41 | ECHOF ---
Referral Reason:chest pain MEASUREMENTS -------- HEIGHT: 165.1 cm WEIGHT: 77.1 kg BP: 206/81 RVIDd: 2.3 cm (< 3.3) IVSd: 1.3 cm (0.6 - 1.1) LVIDd: 3.9 cm (3.9 - 5.3) LVPWd: 1.4 cm (0.6 - 1.1) IVSs: 1.6 cm LVIDs: 2.6 cm LVPWs: 1.6 cm LA Diam: 4.2 cm (2.7 - 3.8) LAESV Index (A-L): 31.32 ml/m MV EXCURSION: 17.354 mm (> 18.000) MV EF SLOPE: 64 mm/s (70 - 150) EPSS: 1.8 cm MV E Declan: 0.46 m/s MV DecT: 315 ms MV A Declan: 1.03 m/s MV E/A Ratio: 0.45 RAP: 5.00 mmHg RVSP: 18.87 mmHg FINDINGS -------- Paced rhythm. This was a technically adequate study. The left ventricular size is normal. There is moderate concentric left ventricular hypertrophy. O verall left ventricular systolic function is normal with, an EF between 55 - 60 %. The right ventricle is normal in size. The left atrium is mildly dilated. LA is midly dilated 29-33ml/m2. The right atrial size is normal. There is mild aortic valve sclerosis. Trace to mild aortic regurgitation. Mild mitral annular calcification present. Mild mitral regurgitation is present. Mild tricuspid regurgitation present. Right ventricular systolic pressure is normal at < 35 mmHg. There is no evidence of pulmonary hypertension. Trace/mild (physiologic) pulmonic regurgitation. The aortic root size is normal. There is no pericardial effusion. CONCLUSIONS -------- 1. Paced rhythm. 2. This was a technically adequate study. 3. The left ventricular size is normal. 4. There is moderate concentric left ventricular hypertrophy. 5. The right ventricle is normal in size. 6. The left atrium is mildly dilated. 7. LA is midly dilated 29-33ml/m2. 8. The right atrial size is normal. 9. There is mild aortic valve sclerosis. 10. Trace to mild aortic regurgitation. 11. Mild mitral annular calcification present. 12. Mild tricuspid regurgitation present. 13. Right ventricular systolic pressure is normal at < 35 mmHg. 14. There is no evidence of pulmonary hypertension. 15. Trace/mild (physiologic) pulmonic regurgitation. 16. The aortic root size is normal. 17. There is no pericardial effusion. DETECTIVE PRECINCT: Lucy Adams RDCS
[2019-04-10 12:12] LABS: Glucose,Whole Blood 140 mg/dL (75-99)
[2019-04-10] MEDS: levETIRAcetam 500 MG TAB PO SCH ×2 (12:24→20:54)
[2019-04-10] MEDS: CARVEDILOL 3.125 MG TAB PO SCH ×2 (12:24→17:56)
[2019-04-10] MEDS: HEPARIN SOD,PORK IN 0.45% NACL 25,000 UNIT in 0.45% NACL 1 250ML.BAG IV SCH (12:25)
[2019-04-10] MEDS ORDERED: ATORVASTATIN 80 MG TAB PO STA (13:44)
[2019-04-10] MEDS ORDERED: ASPIRIN 325 MG TAB PO STA (13:44)
[2019-04-10] MEDS ORDERED: SODIUM CHLORIDE 0.9% 1,000 ML in EMPTY BAG 1 BAG IV ONE (13:44)
[2019-04-10] MEDS ORDERED: ALPRAZolam 0.25 MG TAB PO PRN (13:44)
[2019-04-10] MEDS ORDERED: ALPRAZolam 0.5 MG TAB PO PRN (13:44)
[2019-04-10] MEDS ORDERED: NITROGLYCERIN SL TABS 0.4 MG TAB SUBLINGUAL PRN (13:44)
--- NOTE | 2019-04-10 14:08 | P.CN ---
Psychiatric Consult - . Consult date: 04/10/19 Consult:: 04/10/19 13:37 IDENTIFYING DATA: This patient is a 73-year-old female with a history of multiple chronic medical comorbidities who lives in the house with her son and [id number] and is currently collecting Social Security disability. HISTORY OF PRESENT ILLNESS: The patient presented to the hospital with the complaints of chest pain which is found to be unstable angina. Patient's troponins were elevated and EKG showed paced rhythm with underlying A. fib. Patient had a head CT scan done which was negative for any acute hemorrhages. Psychiatry was consulted for delusions and hearing voices. Patient was seen at the bedside in her chair finishing up her lunch and was directable and agreeable to speak to song writer. Patient appeared to be timid however was polite and appropriate during conversation. She states that she is feeling better today overall and states that yesterday and the days prior to leading up to the hospital she was experiencing some visual and auditory hallucinations. She describes things "looking very weird and feeling paranoid" which has dramatically improved today and states that she only heard mild voices this morning. She claims that her mood is "fine" and spoke about her medical conditions. She also spoke about some stressors at home including getting into some arguments with her son however overall states that he is supportive and watches over her. She states that she slept fairly last night around 5-6 hours and has better appetite today. At this time patient denies any suicidal or homical ideations, intent or plan. Patient denies any visual hallucinations and denies any paranoia or delusions. She claims that she was hearing mild voices this morning and last night however are not as negative as before. Patients denies using any recreational drugs cigarettes or alcohol. PAST PSYCHIATRIC HISTORY: Patient has a history of psychosis and was previously seen on the mental health unit for admission on 07/2018. Patient is currently on Lexapro and Seroquel. Patient denied having an outpatient psychiatrist and states that she is attempted suicide approximately 3 times in the past. PAST MEDICAL HISTORY: C Emelyn, diabetes mellitus, each LP, CAD with stents, hypertension, FITZ, seizure disorder, asthma, history of a brain bleed. ALLERGIES: as per EMR. CHEMICAL DEPENDENCY HISTORY: as per HPI. FAMILY PSYCHIATRIC/SUBSTANCE USE HISTORY: denies SOCIAL HISTORY: She states that she was born and raised in [facility] and states that after marrying she moved to [place] and she currently is lives in a house with her 1 son and [id number]. 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 MENTAL STATUS EXAM: General Appearance: Patient appears to be stated age is alert, pleasant, and cooperative. Patient appears to have fair hygiene and grooming wearing hospital gown with fair eye contact. Behavior: Patient is calmly sitting beside bed without any agitated behavior. Attempts to cooperate. Speech: Patient's speech is fluent and nonpressured. Difficulty hearing. Mood/Affect: Patient reports their mood is "better", affect is congruent and constricted Suicidality/Homicidality: Patient denies having any suicidal or homicidal ideation intent or plan. Perceptions: Patient denies any visual hallucinations and admits to mild auditory hallucinations this morning and yesterday. Though content/process: There is no evidence of any delusional thought content and thought process is linear and goal-directed. Memory and concentration: AOX3, grossly intact for the purposes of this session. Can spell "WORLD" backwards Judgment and insight: Limited IMPRESSIONS: Schizoaffective disorder, depressive type PLAN: -At this time patient DOES NOT meet criteria for inpatient psychiatric admission. -Delirium precautions recommended with patient including - avoiding use of narcotics and COMMUNITY PHARMACIST sedatives, limit anticholinergic medications when possible, frequent re-orientation, minimize use of restraints, open window shades during the day and close them at night -Would recommend the following medication changes/additions: Will increase Seroquel to 100 mg nightly for mood stabilization/psychosis/insomnia. Continue with Lexapro 20 mg daily. Discontinued other benzodiazepines at this time due to patient's age and risk for falls and confusion. When necessary 0.25 mg Xanax for anxiety are okay at this time however should not be increased and not used if necessary. -dish room worker to provide patient with outpatient mental health follow up resources as patient needs to be established with a psychiatrist. -Psychiatry will sign off at this point, please call with any questions.
[2019-04-10 17:05] LABS: Glucose,Whole Blood 149 mg/dL (75-99)
[2019-04-10 20:31] LABS: Glucose,Whole Blood 126 mg/dL (75-99)
[2019-04-10] MEDS: INSULIN DETEMIR (LEVEMIR) 100 UNIT/ML SYR SQ SCH (20:34)
[2019-04-10] MEDS: hydrALAZINE HCL 20 MG/ML 1 ML VIAL IVP PRN (20:35)
--- NOTE | 2019-04-10 20:49 | PN ---
PROGRESS NOTE I am covering for Dr. Zamarripa. DATE OF SERVICE: 04/10/2019 This 73-year-old woman who was admitted with chest pain also had delirium and the patient also had some confusion. Patient also had paroxysmal atrial fibrillation. No chest pain. No palpitations. No fever. Cardiology evaluation is in progress. A 2D echo with Doppler done today showed ejection fraction of 55% to 60% as well as mild valvular abnormalities. CT of the brain was done yesterday which showed no evidence of any symptoms. Remote ischemic changes were noted. Psychiatry has also seen the patient. recommended no inpatient psychiatric admission; continue the medications. No chest pain. No palpitations. No fever. PHYSICAL EXAMINATION: Alert and oriented x2. Pulse 68, blood pressure 160/89, respirations 16, temperature 97.3, pulse ox 96% on room air. HEENT: Conjunctivae normal. NECK: No jugular venous distention. CARDIOVASCULAR SYSTEM: S1, S2 muffled. RESPIRATORY SYSTEM: Breath sounds diminished at the bases. No rhonchi. No crackles. ABDOMEN: Soft, non-tender. LEGS: No edema. No swelling. NERVOUS SYSTEM: No focal deficit. LABS: WBC 6.2, hemoglobin 13.6, platelets 127. APTT noted. Creatinine is 1.35. Troponin 0.037. ASSESSMENT: 1. Chest pain with possible unstable angina. 2. Troponin 0.037, indeterminate. 3. Delirium, multifactorial possibly. 4. Atrial fibrillation, paroxysmal. 5. History of asthma. 6. Chronic kidney disease, stage III. 7. History of coronary artery disease. 8. History of congestive heart failure with ejection fraction unknown. 9. History of cerebrovascular accident, transient ischemic attack. 10.Diabetes mellitus, type 2. 11.Hypertension. 12.History of degenerative joint disease. 13.History of accelerated hypertension, hypertensive urgency. 14.History of seizure disorder. 15.History of brain mass with intracranial bleed and hematoma. 16.History of paroxysmal atrial fibrillation. 17.Bilateral peripheral neuropathy. 18.History of orthostatic hypotension. 19.History of pacemaker. 20.History of blindness in the left eye. 21.History of gastric erosion and gastritis. 22.History of Clostridium difficile colitis. 23.History of methicillin-resistant Staphylococcus aeruginosa. 24.History of cholecystectomy. 25.History of coronary artery disease, stent. 26.History of permanent pacemaker. 27.Depression. 28.Gait dysfunction. RECOMMENDATIONS AND DISCUSSION: I recommend to continue current medications, continue with the monitoring, symptomatic treatment. Closely follow with Cardiology and Psychiatry. Psychiatric input appreciated. Prognosis guarded. Further recommendations to follow. CHELSEA / CARIE: [id number] / MTDD
[2019-04-10] MEDS: ATORVASTATIN 40 MG TAB PO SCH (20:54)
[2019-04-10] MEDS: QUEtiapine 100 MG TAB PO SCH (20:54)
[2019-04-10 23:01] LABS: Appearance,Urine Clear (Clear); Bacteria,Urine Rare /hpf; Bilirubin,Urine Negative (Negative); Blood,Urine Negative (Negative); Color,Urine Light Yellow; Glucose,Urine (UA) Negative (Negative); Ketones,Urine Negative (Negative); Leukocyte Esterase,Urine Small (Negative); Mucus,Urine Rare /hpf; Nitrite,Urine Negative (Negative); PH, Urine 6.5 (5.0-8.0); Protein,Urine Negative (Negative); RBC,Urine 1 /hpf (0-5); Specific Gravity,Urine 1.011 (1.001-1.035); Squamous Epithelial Cell,Urine 1 /hpf (0-4); Urobilinogen,Urine <2.0 mg/dL (<2.0); WBC,Urine 5 /hpf (0-5)
[2019-04-10] MEDS: ACETAMINOPHEN TAB 325 MG TAB PO PRN (23:56)
[2019-04-11 06:13] LABS: Glucose,Whole Blood 173 mg/dL (75-99)
[2019-04-11] MEDS: INSULIN ASPART (NovoLOG) 100 UNIT/ML VIAL SQ SCH ×4 (06:18→21:22)
[2019-04-11] MEDS: CARVEDILOL 3.125 MG TAB PO SCH ×2 (06:22→17:45)
[2019-04-11] MEDS: NITROGLYCERIN OINT 1 INCH/GM PACKET TOPICAL SCH ×4 (06:22→22:58)
[2019-04-11] MEDS: MIDODRINE 5 MG TAB PO SCH ×3 (06:29→17:45)
[2019-04-11 06:41] LABS: Basophils # (A) 0.1 k/uL (0-0.2); Basophils % (A) 1 %; Eosinophils # (A) 0.3 k/uL (0-0.7); Eosinophils % (A) 4 %; HCT 41.4 % (34.0-46.0); HGB 12.9 gm/dL (11.4-16.0); Lymphocytes # (A) 1.5 k/uL (1.0-4.8); Lymphocytes % (A) 18 %; MCHC 31.2 g/dL (31.0-37.0); MCV 89.8 fL (80.0-100.0); Mean Platelet Volume 8.2; Monocytes # (A) 0.6 k/uL (0-1.0); Monocytes % (A) 8 %; Neutrophils # (A) 5.4 k/uL (1.3-7.7); Neutrophils % (A) 69 %; Platelet Count 133 k/uL (150-450); RBC 4.61 m/uL (3.80-5.40); RDW 13.2 % (11.5-15.5); WBC 7.9 k/uL (3.8-10.6)
[2019-04-11 07:28] LABS: Calcium 8.8 mg/dL (8.4-10.2); Potassium 3.9 mmol/L (3.5-5.1)
[2019-04-11] MEDS: ASPIRIN 325 MG TAB PO SCH (08:44)
[2019-04-11] MEDS: levETIRAcetam 500 MG TAB PO SCH ×2 (08:44→19:38)
[2019-04-11] MEDS: ESCITALOPRAM 20 MG TAB PO SCH (08:44)
[2019-04-11] MEDS: FERROUS SULFATE 325 MG TAB PO SCH (08:44)
[2019-04-11] MEDS: CLOPIDOGREL 75 MG TAB PO SCH (08:44)
[2019-04-11] MEDS: CYANOCOBALAMIN 500 MCG TAB PO SCH (08:44)
--- NOTE | 2019-04-11 10:47 | P.PN ---
Subjective Progress Note Date: 04/11/19 This is a 73-year-old female who follows regularly with Dr. Mauro in the office. She has a known history of coronary artery disease with prior stenting of the LAD in June 2018, paroxysmal atrial fibrillation, not on skilled nursing anticoagulation because of history of brain bleed, sick sinus syndrome with prior pacemaker implantation, chronic kidney disease, diabetes, hyperlipidemia. She presented to the hospital on this occasion with symptoms of chest discomfort. According to the patient, she was feeling a heaviness in her chest that radiated into her left shoulder and down her left arm, she did feel short of breath. She denied any nausea or diaphoresis with this. She came to the hospital for further evaluation and treatment. Her EKG on presentation here showed paced rhythm with underlying atrial fibrillation. Chest x-ray did not reveal any acute process. CAT scan of the brain was performed because of some altered mental status, did not reveal any evidence of acute hemorrhage or mass effect. Remote ischemic change. Blood pressure on arrival here 186/86 with a heart rate in the 60s, 95% on room air. Blood pressure this morning 206/80 with a heart rate in the 60s, 94% on room air. White blood cell count is normal, hemoglobin 13.7, platelet count 127. Sodium 142, potassium 3.9, BUN 26, creatinine 1.3. Magnesium 1.8. Troponins 0.023, 0.032, 0.037. At the time of my examination this morning the patient denies having any chest discomfort. 04/11: Echocardiogram reveals EF of 55-60%, mild aortic regurgitation, mild tricuspid regurgitation, no pulmonary hypertension. Patient has been afebrile, heart rate 60, blood pressure 121/57, pulse ox 96% on room air. Patient is currently on a heparin drip and scheduled for heart catheterization today. Repeat lab work reveals WBC 7.9, hemoglobin 12.9, platelet count 133, BUN 24 and creatinine 1.41, sodium 135 and potassium 3.9. Patient is currently denying having any chest pain or shortness of breath. She states she has been ambulating in her room and denies any lightheadedness or dizziness. Objective - Vital Signs Vital signs: Vital Signs Temp 97.9 F 04/11/19 04:58 Pulse 60 04/11/19 08:00 Resp 16 04/11/19 08:00 BP 121/57 04/11/19 08:00 Pulse Ox 96 04/11/19 08:00 Intake & Output 04/10/19 04/11/19 04/11/19 18:59 06:59 18:59 Intake Total 216.295 Balance 216.295 Weight 79.2 kg Intake: Intake, IV Titration 216.295 Amount Heparin Sod,Pork in 0.45% 216.295 NaCl 25,000 unit In 0.45 % NaCl 1 250ml.bag @ 12 UNITS/KG/HR 9.743 mls/hr IV .Q24H [facility] Rx#: [id number] Other: Voiding Method Toilet Toilet Toilet # Voids 1 1 # Bowel Movements 1 1 - Exam PHYSICAL EXAMINATION: GENERAL: 73-year-old female resting in recliner in no acute distress at the time of my examination HEENT: Head is atraumatic, normocephalic. Pupils equal, round. Sclera anicteric. Conjunctiva are clear. Mucous membranes of the mouth are moist. Neck is supple. There is no elevated jugular venous pressure. No carotid bruit is heard. HEART EXAMINATION: Heart S1 and S2 irregularly irregular CHEST EXAMINATION: Lungs are clear to auscultation and precussion. No chest wall tenderness is noted on palpation or with deep breathing. ABDOMEN: Soft, nontender. Bowel sounds are heard. No organomegaly noted. EXTREMITIES: 2+ peripheral pulses with no evidence of peripheral edema and no calf tenderness noted. NEUROLOGIC patient is awake, alert and oriented 3 . . - Labs CBC & Chem 7: 04/11/19 06:04 04/11/19 06:04 Labs: Abnormal Lab Results - Last 24 Hours (Table) 04/10/19 04/10/19 04/10/19 Range/Units 12:10 12:19 17:04 Plt Count (150-450) k/uL APTT 45.7 H (22.0-30.0) sec Sodium (137-145) mmol/L BUN (7-17) mg/dL Creatinine (0.52-1.04) mg/dL Glucose (74-99) mg/dL POC Glucose (mg/dL) 140 H 149 H (75-99) mg/dL Ur Leukocyte Esterase (Negative) Urine Bacteria (None) /hpf Urine Mucus (None) /hpf 04/10/19 04/10/19 04/11/19 Range/Units 20:29 21:44 06:04 Plt Count 133 L (150-450) k/uL APTT (22.0-30.0) sec Sodium (137-145) mmol/L BUN (7-17) mg/dL Creatinine (0.52-1.04) mg/dL Glucose (74-99) mg/dL POC Glucose (mg/dL) 126 H (75-99) mg/dL Ur Leukocyte Esterase Small H (Negative) Urine Bacteria Rare H (None) /hpf Urine Mucus Rare H (None) /hpf 04/11/19 04/11/19 Range/Units 06:04 06:10 Plt Count (150-450) k/uL APTT (22.0-30.0) sec Sodium 135 L (137-145) mmol/L BUN 24 H (7-17) mg/dL Creatinine 1.41 H (0.52-1.04) mg/dL Glucose 189 H (74-99) mg/dL POC Glucose (mg/dL) 173 H (75-99) mg/dL Ur Leukocyte Esterase (Negative) Urine Bacteria (None) /hpf Urine Mucus (None) /hpf Assessment and Plan Plan: Assessment and plan #1 chest pain, rule out possible acute coronary syndrome. Troponins 0.023, 0.032, 0.037. EKG shows a paced rhythm with underlying atrial fibrillation, no acute changes noted. Patient's most recent cardiac procedure was performed in June 2018 at which patient underwent angioplasty and stenting of the LAD. #2 coronary artery disease history with LAD stenting in June 2018 #3 persistent atrial fibrillation, not on anticoagulation because of history of brain bleed #4 hyperlipidemia #5 hypertensive urgency #6 history of CVA #7 chronic kidney disease #8 history of seizures #9 orthostatic hypotension history Plan Echocardiogram reveals EF of 55-60%, mild aortic regurgitation, mild tricuspid regurgitation, no pulmonary hypertension. Continue aspirin 81 mg daily, Lipitor, Coreg, Nitropaste, heparin drip. Patient is scheduled for heart catheterization today. She is not on an EMILEE inhibitor because of abnormal renal function. Further recommendations to follow. Nurse practitioner note has been reviewed, I agree with documented findings and plan of care. Patient was seen and examined.
[2019-04-11] MEDS: CALCIUM CARBONATE 500 MG CHEWABLE PO SCH (12:01)
[2019-04-11 12:17] LABS: Glucose,Whole Blood 136 mg/dL (75-99)
[2019-04-11] MEDS ORDERED: VERAPAMIL 2.5 MG/ML 2 ML AMP ONE (15:17)
[2019-04-11] MEDS ORDERED: LIDOCAINE 1% INJ 10MG/ML (20 ML MDV) ONE (15:17)
[2019-04-11] MEDS ORDERED: IV FLUID CONTINUATION 250 ML IV ONE (15:20)
[2019-04-11] MEDS ORDERED: LIDOCAINE 1% INJ 10MG/ML (10 ML MDV) SQ ONE ×2 (15:27)
[2019-04-11] MEDS ORDERED: hydrALAZINE HCL 20 MG/ML 1 ML VIAL ONE (15:27)
[2019-04-11] MEDS ORDERED: MIDAZOLAM 2 MG/2 ML VIAL IV ONE (15:27)
[2019-04-11] MEDS ORDERED: hydrALAZINE HCL 20 MG/ML 1 ML VIAL IV ONE (15:30)
[2019-04-11] MEDS: VERAPAMIL SYRINGE (5 MG/10 ML) INTRAARTER ONE ×2 (15:31→15:38)
[2019-04-11] MEDS ORDERED: IOPAMIDOL-370 125ML BTL INJ ONE (15:38)
[2019-04-11] MEDS ORDERED: RX INFO: IV CONTRAST WAS GIVEN 1 EACH MISC MISCELLANE PRN (15:41)
[2019-04-11] MEDS ORDERED: SODIUM CHLORIDE 0.9% 1,000 ML IV SCH (15:45)
[2019-04-11 16:56] LABS: Glucose,Whole Blood 128 mg/dL (75-99)
[2019-04-11] MEDS: HEPARIN SOD,PORK IN 0.45% NACL 25,000 UNIT in 0.45% NACL 1 250ML.BAG IV SCH (19:36)
[2019-04-11] MEDS: QUEtiapine 100 MG TAB PO SCH (19:38)
[2019-04-11] MEDS: ATORVASTATIN 40 MG TAB PO SCH (19:38)
--- NOTE | 2019-04-11 20:26 | PN ---
PROGRESS NOTE DATE OF SERVICE: 04/11/2019 I am covering for Dr. Zamarripa. This 73-year-old woman who was admitted with chest pain, had unstable angina. Patient is slated for to undergo cardiac catheterization today. No chest pain. No palpitations. No fever. Patient also has some confusion, delirium, which is improving. EXAM: Alert and oriented x3. The pulse is 63. Blood pressure 146/63. Respirations 16, temperature normal, pulse ox 93 percent on room air. HEENT: Conjunctivae normal. NECK: No JVD. CARDIOVASCULAR: S1, S2 muffled. RESPIRATORY: Breath sounds diminished in the bases. No rhonchi. No crackles. ABDOMEN is soft, nontender. LEGS are no edema. No swelling. Nervous system: Diffusely weak. LABS: CBC within normal limits except platelets 138. Sodium 135, creatinine is 1.41. ASSESSMENT: 1. Chest pain possible unstable angina for cardiac cath. 2. Troponin 0.03 indeterminate, rule out acute ggg-SC-ybdhgyn-elevation myocardial infarction. 3. Delirium multifactorial, possibly. 4. Atrial fibrillation, paroxysmal. 5. Mild thrombocytopenia. 6. Hyponatremia. 7. History of asthma. 8. Chronic kidney stage III. 9. History of coronary artery disease. 10.History of congestive heart failure ejection fraction unknown. 11.History of cerebrovascular accident, transient ischemic attack. 12.Diabetes type 2. 13.Hypertension. 14.History of degenerative joint disease. 15.History of accelerated hypertension, hypertensive urgency. 16.History of seizure disorder. 17.History of brain mass with intracranial bleed and hematoma previously. 18.History of paroxysmal atrial fibrillation. 19.History of bilateral peripheral neuropathy. 20.History of orthostatic hypotension. 21.History of permanent pacemaker. 22.History of blindness of the left eye. 23.History of gastric erosions, gastritis. 24.History of C difficile colitis. 25.History of MRSA. 26.History of cholecystectomy. 27.History of coronary artery disease/stent. 28.History of depression. 29.Gait dysfunction. RECOMMENDATIONS AND DISCUSSION: Recommend to continue current medications and symptomatic treatment. Continue with monitoring. Otherwise, at this time, I would recommend to continue the current medication, beta blockers. Monitor creatinine closely. Otherwise, cardiac catheterization by Cardiology. Guarded prognosis. Further recommendations to follow. MMODL / IJN: [id number] /
[2019-04-11 21:07] LABS: Glucose,Whole Blood 130 mg/dL (75-99)
[2019-04-11] MEDS: INSULIN DETEMIR (LEVEMIR) 100 UNIT/ML SYR SQ SCH (21:22)
--- NOTE | 2019-04-11 22:46 | CC ---
CARDIAC CATHETERIZATION REPORT DATE OF SERVICE: April 11, 2019. PERFORMING PHYSICIAN: Jaiden Hawk MD. PROCEDURE PERFORMED: 1. Selective right and left coronary angiogram. 2. Left heart catheterization. INDICATION: This is a very pleasant 73-year-old female patient with coronary artery disease and prior stenting of the LAD as well as long-standing persistent atrial fibrillation as well as permanent pacemaker implantation, presented to the hospital with chest discomfort and elevated blood pressure. She was ruled in for acute kej-DT-vdubxvjgc myocardial infarction and because of that, a heart catheterization was advised. APPROACH: Right radial artery. COMPLICATION: None. LEVEL OF SEDATION: Moderate with sedation length of 12 minutes. PROCEDURE DESCRIPTION: After obtaining an informed consent, the patient was brought to the cardiac labor and delivery nurse. The right radial artery was cannulated using micropuncture technique, the micropuncture wire passed easily. Then I placed a 6-Angolan sheath at the right radial artery. After that I gave the patient 2 mg of verapamil IA and heparin was not given because the patient was on heparin IV. Selective right and left coronary angiogram performed with JR4 and JL3.5 catheters. Left heart catheterization was performed using the JR4 catheter which crossed the aortic valve. Then I did pullback across the valve. The procedure was completed without any complication. SELECTIVE CORONARY ANGIOGRAM: 1. The right coronary artery is a medium caliber vessel. It is a nondominant vessel. It is angiographically normal. 2. The left main is angiographically normal. It bifurcates into LCX and LAD. 3. The left circumflex is a large caliber vessel. It is a dominant vessel. The LCX itself appeared to have mild disease only. In the proximal portion, gives rise into an OM1 which seems to be angiographically normal and in the mid gives rise into OM2 which seems to be normal and the circumflex distally bifurcates into PDA and PLV branches both appeared to be angiographically normal. 4. The LAD appeared to have mild disease only. Stented in the proximal portion and the stent is patent. The LAD gives rise into a large diagonal branch which seems to be angiographically normal. HEMODYNAMICS: The LVEDP was 12 mmHg without significant gradient across aortic valve. CONCLUSION: Patent stent in the proximal left anterior descending artery. POSTPROCEDURE MANAGEMENT: 1. Medical treatment. 2. Follow up with the patient. MMODL / IJN: [id number] /
[2019-04-12] MEDS: INSULIN ASPART (NovoLOG) 100 UNIT/ML VIAL SQ SCH ×4 (05:30→20:24)
[2019-04-12 05:31] LABS: Glucose,Whole Blood 110 mg/dL (75-99)
[2019-04-12] MEDS: MIDODRINE 5 MG TAB PO SCH ×3 (06:23→17:37)
[2019-04-12] MEDS: CARVEDILOL 3.125 MG TAB PO SCH ×2 (06:23→16:53)
[2019-04-12] MEDS: NITROGLYCERIN OINT 1 INCH/GM PACKET TOPICAL SCH ×3 (06:25→16:53)
[2019-04-12 06:57] LABS: Basophils % (A) 1 %; Eosinophils # (A) 0.2 k/uL (0-0.7); Eosinophils % (A) 4 %; HCT 41.1 % (34.0-46.0); HGB 12.6 gm/dL (11.4-16.0); Lymphocytes # (A) 1.1 k/uL (1.0-4.8); Lymphocytes % (A) 20 %; MCHC 30.7 g/dL (31.0-37.0); MCV 91.1 fL (80.0-100.0); Mean Platelet Volume 8.1; Monocytes # (A) 0.5 k/uL (0-1.0); Monocytes % (A) 10 %; Neutrophils # (A) 3.3 k/uL (1.3-7.7); Neutrophils % (A) 63 %; Platelet Count 113 k/uL (150-450); RDW 13.4 % (11.5-15.5); WBC 5.2 k/uL (3.8-10.6)
[2019-04-12 07:10] LABS: Calcium 8.6 mg/dL (8.4-10.2); Potassium 3.8 mmol/L (3.5-5.1)
[2019-04-12] MEDS: CLOPIDOGREL 75 MG TAB PO SCH (08:33)
[2019-04-12] MEDS: CALCIUM CARBONATE 500 MG CHEWABLE PO SCH (08:33)
[2019-04-12] MEDS: ESCITALOPRAM 20 MG TAB PO SCH (08:33)
[2019-04-12] MEDS: levETIRAcetam 500 MG TAB PO SCH ×2 (08:33→20:20)
[2019-04-12] MEDS: FERROUS SULFATE 325 MG TAB PO SCH (08:33)
[2019-04-12] MEDS: CYANOCOBALAMIN 500 MCG TAB PO SCH (08:33)
[2019-04-12] MEDS: ASPIRIN 325 MG TAB PO SCH (08:33)
[2019-04-12 12:07] LABS: Glucose,Whole Blood 109 mg/dL (75-99)
[2019-04-12 16:44] LABS: Glucose,Whole Blood 140 mg/dL (75-99)
[2019-04-12] MEDS: HEPARIN SOD,PORK IN 0.45% NACL 25,000 UNIT in 0.45% NACL 1 250ML.BAG IV SCH (16:47)
--- NOTE | 2019-04-12 19:37 | PN ---
PROGRESS NOTE DATE OF SERVICE: 04/12/2019 I am covering for Dr. Zamarripa. This 73-year-old woman was admitted with chest pain. Also had possibly unstable angina. The patient had cardiac catheterization by Cardiology which showed patent stents in the proximal LAD. Medical treatment was recommended. The patient also had confusion, delirium also. No chest pain. No palpitations. No fever. PHYSICAL EXAMINATION: Pulse 60, blood pressure 194/70, respirations 16, temperature normal, pulse ox 98% on room air. HEENT: Conjunctivae normal. NECK: No JVD. CARDIOVASCULAR: S1, S2 muffled. LUNGS: Diminished breath sounds at the bases. No rhonchi, no crackles. ABDOMEN: Soft, nontender. LEGS: No swelling. NERVOUS SYSTEM: No focal deficits. LAB: Creatinine 1.29, glucose is 115. UA noted. ASSESSMENT: 1. Chest pain, possible unstable angina status post cardiac catheterization and patent stent. 2. Troponin 0.03, indeterminate. 3. Delirium, acute, multifactorial, possibly. 4. Atrial fibrillation, paroxysmal. 5. Mild thrombocytopenia. 6. Hyponatremia. 7. History of asthma. 8. Chronic kidney disease stage III. 9. History of coronary artery disease. 10.History of congestive heart failure, ejection fraction unknown. 11.History of cerebrovascular accident, transient ischemic attack. 12.History of diabetes type 2. 13.Hypertension. 14.History of degenerative joint disease. 15.History of accelerated hypertension, hypertensive urgency. 16.History of seizure disorder. 17.History of brain mass with intracranial bleed and hematoma previously. 18.History of paroxysmal atrial fibrillation. 19.History of bilateral peripheral neuropathy related to diabetes type 2. 20.History of orthostatic hypotension. 21.History of permanent pacemaker. 22.History of blindness, left eye. 23.History of gastric erosions and gastritis. 24.History of Clostridium difficile colitis. 25.History of MRSA. 26.History of cholecystectomy. 27.History of coronary artery disease, stent. 28.History of depression. 29.Gait dysfunction. RECOMMENDATIONS AND DISCUSSION: Recommend to continue current medications, continue symptomatic treatment. Otherwise, at this time I would recommend continue the medical treatment and closely follow with Cardiology. See orders for details. Otherwise, Dr. Zamarripa will follow tomorrow. MMODL / IJN: [id number] /
[2019-04-12 20:19] LABS: Glucose,Whole Blood 145 mg/dL (75-99)
[2019-04-12] MEDS: QUEtiapine 100 MG TAB PO SCH (20:20)
[2019-04-12] MEDS: ATORVASTATIN 40 MG TAB PO SCH (20:20)
[2019-04-12] MEDS: ACETAMINOPHEN TAB 325 MG TAB PO PRN (20:20)
[2019-04-12] MEDS: hydrALAZINE HCL 20 MG/ML 1 ML VIAL IVP PRN (20:20)
[2019-04-12] MEDS: INSULIN DETEMIR (LEVEMIR) 100 UNIT/ML SYR SQ SCH (20:24)
--- NOTE | 2019-04-12 22:55 | PN ---
PROGRESS NOTE 73-year-old lady that is admitted to hospital with unstable angina and underwent cardiac catheterization and was advised medical therapy. This morning she had intermittent episodes of confusion and also has uncontrolled hypertension. She is on Midodrine. I asked them to hold it. Her cardiac catheterization revealed mild nonobstructive coronary artery disease. On exam, comfortable at rest. Heart rate is 60 beats per minute. Blood pressure is 113/65, respiratory 18. Chest exam reveals good air entry bilaterally. Heart exam reveals first and second heart sounds. No gallop. Exam of the extremities did not reveal any edema. Peripheral pulses are felt. LABORATORY DATA: Lab show a potassium of 3.8, hemoglobin is 12.6, platelet count is 113. ASSESSMENT: 1. Unstable angina status post catheterization. Advised medical therapy. 2. Hypertension. PLAN: Please hold the midodrine. If discharged, arrange followup with Cardiology. CHELSEA / CARIE: [id number] /
[2019-04-13] MEDS: NITROGLYCERIN OINT 1 INCH/GM PACKET TOPICAL SCH ×4 (00:24→16:52)
[2019-04-13 05:48] LABS: Glucose,Whole Blood 107 mg/dL (75-99)
[2019-04-13] MEDS: INSULIN ASPART (NovoLOG) 100 UNIT/ML VIAL SQ SCH ×4 (06:23→21:15)
[2019-04-13] MEDS: MIDODRINE 5 MG TAB PO SCH ×3 (06:32→16:30)
[2019-04-13] MEDS: CARVEDILOL 3.125 MG TAB PO SCH ×2 (06:35→16:38)
[2019-04-13] MEDS: FERROUS SULFATE 325 MG TAB PO SCH (10:02)
[2019-04-13] MEDS: ASPIRIN 325 MG TAB PO SCH (10:02)
[2019-04-13] MEDS: ESCITALOPRAM 20 MG TAB PO SCH (10:02)
[2019-04-13] MEDS: levETIRAcetam 500 MG TAB PO SCH ×2 (10:02→21:15)
[2019-04-13] MEDS: CYANOCOBALAMIN 500 MCG TAB PO SCH (10:02)
[2019-04-13] MEDS: CALCIUM CARBONATE 500 MG CHEWABLE PO SCH (10:02)
[2019-04-13] MEDS: CLOPIDOGREL 75 MG TAB PO SCH (10:03)
[2019-04-13 11:56] LABS: Glucose,Whole Blood 147 mg/dL (75-99)
[2019-04-13 12:01] LABS: HCT 41.1 % (34.0-46.0); MCH 28.1 pg (25.0-35.0); MCHC 31.7 g/dL (31.0-37.0); MCV 88.4 fL (80.0-100.0); Mean Platelet Volume 8.2; Platelet Count 118 k/uL (150-450); RBC 4.64 m/uL (3.80-5.40); RDW 13.4 % (11.5-15.5); WBC 4.9 k/uL (3.8-10.6)
[2019-04-13 12:11] LABS: Potassium 4.2 mmol/L (3.5-5.1)
[2019-04-13 13:44] LABS: Appearance,Urine Clear (Clear); Bilirubin,Urine Negative (Negative); Blood,Urine Negative (Negative); Color,Urine Yellow; Glucose,Urine (UA) Negative (Negative); Ketones,Urine Negative (Negative); Leukocyte Esterase,Urine Negative (Negative); Nitrite,Urine Negative (Negative); PH, Urine 5.5 (5.0-8.0); Protein,Urine Trace (Negative); Specific Gravity,Urine 1.019 (1.001-1.035); Urobilinogen,Urine <2.0 mg/dL (<2.0)
--- NOTE | 2019-04-13 14:28 | P.DS ---
Providers Date of admission: 04/09/19 13:38 Expected date of discharge: 04/13/19 Attending physician: Vikram Zamarripa Consults: 04/09/19 13:38 Consult Physician Urgent Consulting Provider: [facility] Consult Reason/Comments: Unstable angina Do you want consulting provider notified?: Yes 04/09/19 18:40 Consult Physician Routine Consulting Provider: Tunde Cannon Consult Reason/Comments: hearing voices, delusional, psych history Do you want consulting provider notified?: Yes Primary care physician: [facility] Course: Final diagnosis Chest pain, possible unstable angina status post cardiac catheterization and patent stent Troponin 0.03, indeterminate Delirium, acute, multifactorial, possibly Atrial fibrillation, paroxysmal Mild thrombocytopenia hyponatremia History of asthma Chronic kidney disease stage III History of coronary artery disease History of congestive heart failure, ejection fraction unknown History of cerebrovascular accident/TIA History of diabetes mellitus type 2 Hypertension History of degenerative joint disease History of accelerated hypertension, hypertensive urgency History of seizure disorder History of brain mass with intracranial bleed and hematoma previously History of paroxysmal atrial fibrillation and history of bilateral peripheral neuropathy related to diabetes mellitus type 2 History of orthostatic hypotension History of permanent pacemaker History of blindness, left eye history of gastric erosions and gastritis History of Clostridium difficile colitis History of MRSA history of cholecystectomy History of coronary artery disease/stent History of depression Gait dysfunction Discharge disposition Patient is being discharged in a stable condition with guarded prognosis to [place] [facility] for continued PT/OT therapy for strength and mobility. Patient will follow-up with primary care provider Dr. Zamarripa along with cardiology as discussed and scheduled in the outpatient setting. Total time taken is 35 minutes. History of present illness This is a 73-year-old female who was recently admitted with chest pain and possible unstable angina and was being closely monitored. Cardiology performed cardiac catheterization which showed patent stents in the proximal LAD and to continue with medical management. Patient was also found to have some confusion and delirium and sensorium has improved. Urinalysis was done which was negative. Patient continues to have gait dysfunction and is quite weak and will need continued PT/OT therapy for strength and mobility. Currently patients and patient is stable and is ready [facility]. Patient denies chest pain, palpitations, shortness of breath. Patient is afebrile. Patient denies any nausea or vomiting and is tolerating diet. Patient will need continued blood glucose monitoring before meals at bedtime and treat accordingly with sliding scale. Patient will follow-up with Dr. Zamarripa along with cardiology in the outpatient setting. On exam vital signs are stable. Temp is 98.6F, pulse is 60, respirations are 16, blood pressure is 173/72, oxygen saturation is 93% on room air. Cardio S1, S2 are muffled. Respiratory system shows diminished breath sounds at the bases with no wheezing or rhonchi noted. Abdomen is soft and nontender. Nervous system shows mild diffuse weakness. Please refer to medication reconciliation sheet for a list of medications. Patient Condition at Discharge: Stable Plan - Discharge Summary Discharge Rx Participant: No New Discharge Prescriptions: New Aspirin 325 mg PO DAILY 30 Days #30 tab Carvedilol [Coreg] 3.125 mg PO BID-W/MEALS 30 Days #60 tab QUEtiapine [SEROquel] 100 mg PO HS 30 Days #30 tab Continue Ferrous Sulfate [Iron (65 MG Elemental)] 325 mg PO DAILY Albuterol Inhaler [Ventolin Hfa Inhaler] 2 puff INHALATION RT-Q6H PRN PRN Reason: Shortness Of Breath Atorvastatin [Lipitor] 40 mg PO HS #90 tab Clopidogrel [Plavix] 75 mg PO DAILY #90 tab levETIRAcetam [Keppra] 500 mg PO Q12HR Nitroglycerin Sl Tabs [Nitrostat] 0.4 mg SUBLINGUAL Q5M PRN tab PRN Reason: Chest Pain Escitalopram [Lexapro] 20 mg PO DAILY Cyanocobalamin [Vitamin B-12] 500 mcg PO DAILY Calcium Carbonate 500 mg PO DAILY Insulin Glargine [Lantus] 20 unit SQ HS Discontinued QUEtiapine [SEROquel] 50 mg PO HS Midodrine [ProAmatine] 2.5 mg PO AC-TID #90 tab QUEtiapine FUMARATE [SEROquel] 25 mg PO HS Discharge Medication List Albuterol Inhaler [Ventolin Hfa Inhaler] 2 puff INHALATION RT-Q6H PRN 03/27/18 [History] Ferrous Sulfate [Iron (65 MG Elemental)] 325 mg PO DAILY 03/27/18 [History] Atorvastatin [Lipitor] 40 mg PO HS #90 tab 06/07/18 [Rx] Clopidogrel [Plavix] 75 mg PO DAILY #90 tab 06/07/18 [Rx] levETIRAcetam [Keppra] 500 mg PO Q12HR 07/21/18 [History] Nitroglycerin Sl Tabs [Nitrostat] 0.4 mg SUBLINGUAL Q5M PRN tab 07/30/18 [Rx] Escitalopram [Lexapro] 20 mg PO DAILY 10/25/18 [History] Cyanocobalamin [Vitamin B-12] 500 mcg PO DAILY 01/11/19 [History] Calcium Carbonate 500 mg PO DAILY 04/09/19 [History] Insulin Glargine [Lantus] 20 unit SQ HS 04/09/19 [History] Aspirin 325 mg PO DAILY 30 Days #30 tab 04/13/19 [Rx] Carvedilol [Coreg] 3.125 mg PO BID-W/MEALS 30 Days #60 tab 04/13/19 [Rx] QUEtiapine [SEROquel] 100 mg PO HS 30 Days #30 tab 04/13/19 [Rx] Follow up Appointment(s)/Referral(s): Jaiden Hawk MD [STAFF PHYSICIAN] - 04/20/19 4:00 pm (Saturday) Vikram Zamarripa MD [Primary Care Provider] - 04/20/19 9:45 am (Saturday) [facility], [NON-STAFF] - 1-2 Days Ambulatory/Diagnostic Orders: Basic Metabolic Panel [LAB.AMB] Time Frame: 3 Days, Location: None Selected Patient Instructions/Handouts: *Surgery [facility] - After Heart Catheterization - [employer] Instructions, After Radial Heart Catheterization (GEN) Activity/Diet/Wound Care/Special Instructions: Patient is going to [place] [facility] Activity as tolerated Follow-up with primary care provider upon discharge 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
--- NOTE | 2019-04-13 15:01 | P.PN ---
Subjective Progress Note Date: 04/13/19 This is a 73-year-old female who follows regularly with Dr. Mauro in the office. She has a known history of coronary artery disease with prior stenting of the LAD in June 2018, paroxysmal atrial fibrillation, not on mcfp anticoagulation because of history of brain bleed, sick sinus syndrome with prior pacemaker implantation, chronic kidney disease, diabetes, hyperlipidemia. She presented to the hospital on this occasion with symptoms of chest discomfort. According to the patient, she was feeling a heaviness in her chest that radiated into her left shoulder and down her left arm, she did feel short of breath. She denied any nausea or diaphoresis with this. She came to the hospital for further evaluation and treatment. Her EKG on presentation here showed paced rhythm with underlying atrial fibrillation. Chest x-ray did not reveal any acute process. CAT scan of the brain was performed because of some altered mental status, did not reveal any evidence of acute hemorrhage or mass effect. Remote ischemic change. Blood pressure on arrival here 186/86 with a heart rate in the 60s, 95% on room air. Blood pressure this morning 206/80 with a heart rate in the 60s, 94% on room air. White blood cell count is normal, hemoglobin 13.7, platelet count 127. Sodium 142, potassium 3.9, BUN 26, creatinine 1.3. Magnesium 1.8. Troponins 0.023, 0.032, 0.037. At the time of my examination this morning the patient denies having any chest discomfort. 04/13/2019 Patient was seen and examined this morning, she underwent a cardiac catheterization this weekend by Dr. Davidson, showed that the right coronary artery was a non-dominant vessel and angiographically normal, left main angiographically normal left circumflex is a large dominant vessel has mild disease only the LAD has mild disease, medical therapy was advised. Patient was seen and examined this morning, she's actually sitting up in her chair at bedside, appears to be alert. Blood pressure 173/72 with a heart rate in the 70s, 93% on room air. White blood cell count 4.9, hemoglobin 13, platelet count 118. Sodium 131, potassium 4.2, BUN 23, creatinine 1.3. Objective - Vital Signs Vital signs: Vital Signs Temp 98.6 F 04/13/19 11:40 Pulse 60 04/13/19 11:40 Resp 16 04/13/19 11:40 BP 173/72 04/13/19 11:40 Pulse Ox 93 L 04/13/19 11:40 Intake & Output 04/12/19 04/13/19 04/13/19 18:59 06:59 18:59 Intake Total 363 120 Output Total 300 400 300 Balance 63 -400 -180 Weight 77.2 kg Intake: Oral 363 120 Output: Urine 300 400 300 Other: Voiding Method Toilet Toilet # Voids 2 1 # Bowel Movements 0 - Exam PHYSICAL EXAMINATION: GENERAL: 73-year-old female in no acute distress at the time of my examination HEENT: Head is atraumatic, normocephalic. Pupils equal, round. Sclera anicteric. Conjunctiva are clear. Mucous membranes of the mouth are moist. Neck is supple. There is no elevated jugular venous pressure. No carotid bruit is heard. HEART EXAMINATION: Heart S1 and S2 irregularly irregular CHEST EXAMINATION: Lungs are clear to auscultation and precussion. No chest wall tenderness is noted on palpation or with deep breathing. ABDOMEN: Soft, nontender. Bowel sounds are heard. No organomegaly noted. EXTREMITIES: 2+ peripheral pulses with no evidence of peripheral edema and no calf tenderness noted. NEUROLOGIC patient is awake, alert and oriented 2 . - Labs CBC & Chem 7: 04/13/19 11:44 04/13/19 11:44 Labs: Abnormal Lab Results - Last 24 Hours (Table) 04/12/19 04/12/19 04/13/19 Range/Units 16:43 20:18 05:46 Plt Count (150-450) k/uL Sodium (137-145) mmol/L Chloride (98-107) mmol/L BUN (7-17) mg/dL Creatinine (0.52-1.04) mg/dL Glucose (74-99) mg/dL POC Glucose (mg/dL) 140 H 145 H 107 H (75-99) mg/dL Urine Protein (Negative) 04/13/19 04/13/19 04/13/19 Range/Units 11:44 11:44 11:45 Plt Count 118 L (150-450) k/uL Sodium 131 L (137-145) mmol/L Chloride 97 L (98-107) mmol/L BUN 23 H (7-17) mg/dL Creatinine 1.31 H (0.52-1.04) mg/dL Glucose 127 H (74-99) mg/dL POC Glucose (mg/dL) 147 H (75-99) mg/dL Urine Protein (Negative) 04/13/19 Range/Units 12:45 Plt Count (150-450) k/uL Sodium (137-145) mmol/L Chloride (98-107) mmol/L BUN (7-17) mg/dL Creatinine (0.52-1.04) mg/dL Glucose (74-99) mg/dL POC Glucose (mg/dL) (75-99) mg/dL Urine Protein Trace H (Negative) Assessment and Plan Plan: Assessment and plan #1 chest pain, rule out possible acute coronary syndrome. Troponins 0.023, 0.032, 0.037. EKG shows a paced rhythm with underlying atrial fibrillation, no acute changes noted. Patient's most recent cardiac procedure was performed in June 2018 at which patient underwent angioplasty and stenting of the LAD. #2 coronary artery disease history with LAD stenting in June 2018 #3 persistent atrial fibrillation, not on anticoagulation because of history of brain bleed #4 hyperlipidemia #5 hypertensive urgency #6 history of CVA #7 chronic kidney disease #8 history of seizures #9 orthostatic hypotension history Plan Cardiac catheterization was performed which not reveal any significant obstructive coronary artery disease and medical therapy was advised. From cardiology's perspective, patient be transferred to [facility] once cleared by primary. We will make her a follow-up appointment in the office post discharge. DNP note has been reviewed, I agree with a documented findings and plan of care. Patient was seen and examined.
--- NOTE | 2019-04-13 15:09 | P.PN ---
Subjective Progress Note Date: 04/13/19 Principal diagnosis: This is a 73-year-old female who was recently admitted with chest pain, possible unstable angina and is being closely monitored. Patient follows with Dr. Naveen justin and we are currently covering. Cardiology is following. Patient had some confusion with delirium which has slightly improved. Patient states she was having some discomfort with urination and urinalysis was done which was negative. Family is concerned and would like mother to go to a rehab facility for continued PT/OT therapy. Case management is following and awaiting prior authorization to [facility]. Objective - Vital Signs Vital signs: Vital Signs Temp 98.6 F 04/13/19 11:40 Pulse 60 04/13/19 11:40 Resp 16 04/13/19 11:40 BP 173/72 04/13/19 11:40 Pulse Ox 93 L 04/13/19 11:40 Intake & Output 04/12/19 04/13/19 04/13/19 18:59 06:59 18:59 Intake Total 363 120 Output Total 300 400 300 Balance 63 -400 -180 Weight 77.2 kg Intake: Oral 363 120 Output: Urine 300 400 300 Other: Voiding Method Toilet Toilet # Voids 2 1 # Bowel Movements 0 - Exam Gen: This is a 73-year-old female sitting in bed, awake, alert and oriented 2. Well-nourished, well-developed. HEENT: Head is atraumatic, normocephalic. Pupils equal, round. Sclerae is anicteric. NECK: Supple. No JVD. No lymphadenopathy. No thyromegaly. LUNGS: Diminished breath sounds at the bases with no wheezing or rhonchi noted. No intercostal retractions. HEART: S1, S2 are muffled ABDOMEN: Soft. Bowel sounds are present. No masses. No tenderness. EXTREMITIES: No pedal edema. No calf tenderness. NEUROLOGICAL: Patient is awake, alert and oriented x2. - Labs CBC & Chem 7: 04/13/19 11:44 04/13/19 11:44 Labs: Abnormal Lab Results - Last 24 Hours (Table) 04/12/19 04/12/19 04/13/19 Range/Units 16:43 20:18 05:46 Plt Count (150-450) k/uL Sodium (137-145) mmol/L Chloride (98-107) mmol/L BUN (7-17) mg/dL Creatinine (0.52-1.04) mg/dL Glucose (74-99) mg/dL POC Glucose (mg/dL) 140 H 145 H 107 H (75-99) mg/dL Urine Protein (Negative) 04/13/19 04/13/19 04/13/19 Range/Units 11:44 11:44 11:45 Plt Count 118 L (150-450) k/uL Sodium 131 L (137-145) mmol/L Chloride 97 L (98-107) mmol/L BUN 23 H (7-17) mg/dL Creatinine 1.31 H (0.52-1.04) mg/dL Glucose 127 H (74-99) mg/dL POC Glucose (mg/dL) 147 H (75-99) mg/dL Urine Protein (Negative) 04/13/19 Range/Units 12:45 Plt Count (150-450) k/uL Sodium (137-145) mmol/L Chloride (98-107) mmol/L BUN (7-17) mg/dL Creatinine (0.52-1.04) mg/dL Glucose (74-99) mg/dL POC Glucose (mg/dL) (75-99) mg/dL Urine Protein Trace H (Negative) Assessment and Plan Assessment: Chest pain, possible unstable angina status post cardiac catheterization and patent stent Troponin 0.03, indeterminate Delirium, acute, multifactorial, possibly Atrial fibrillation, paroxysmal Mild thrombocytopenia hyponatremia History of asthma Chronic kidney disease stage III History of coronary artery disease History of congestive heart failure, ejection fraction unknown History of cerebrovascular accident/TIA History of diabetes mellitus type 2 Hypertension History of degenerative joint disease History of accelerated hypertension, hypertensive urgency History of seizure disorder History 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 Cardiology following. Case management working on prior authorization for [facility] with possibility of discharge tomorrow if authorization is obtained. Will continue with PT/OT therapy. As mentioned previously urinalysis was ordered and was negative. Will continue to monitor closely. Dr. Zamarripa will follow tomorrow. Further recommendations to follow. Possible discharge in 24-48 hours.
[2019-04-13 15:40] VITALS: BMI 28.3
[2019-04-13 16:48] LABS: Glucose,Whole Blood 139 mg/dL (75-99)
[2019-04-13 20:00] LABS: Glucose,Whole Blood 192 mg/dL (75-99)
[2019-04-13] MEDS: ATORVASTATIN 40 MG TAB PO SCH (21:15)
[2019-04-13] MEDS: QUEtiapine 100 MG TAB PO SCH (21:15)
[2019-04-13] MEDS: INSULIN DETEMIR (LEVEMIR) 100 UNIT/ML SYR SQ SCH (21:16)
[2019-04-14] MEDS: NITROGLYCERIN OINT 1 INCH/GM PACKET TOPICAL SCH ×5 (00:16→23:29)
[2019-04-14 07:02] LABS: Glucose,Whole Blood 125 mg/dL (75-99)
[2019-04-14] MEDS: CLOPIDOGREL 75 MG TAB PO SCH (07:13)
[2019-04-14] MEDS: CALCIUM CARBONATE 500 MG CHEWABLE PO SCH (07:13)
[2019-04-14] MEDS: levETIRAcetam 500 MG TAB PO SCH ×2 (07:13→21:03)
[2019-04-14] MEDS: CARVEDILOL 3.125 MG TAB PO SCH ×2 (07:13→17:24)
[2019-04-14] MEDS: ESCITALOPRAM 20 MG TAB PO SCH (07:13)
[2019-04-14] MEDS: FERROUS SULFATE 325 MG TAB PO SCH (07:13)
[2019-04-14] MEDS: CYANOCOBALAMIN 500 MCG TAB PO SCH (07:14)
[2019-04-14] MEDS: MIDODRINE 5 MG TAB PO SCH ×3 (07:14→17:24)
[2019-04-14] MEDS: ASPIRIN 81 MG PO SCH (07:14)
[2019-04-14] MEDS: INSULIN ASPART (NovoLOG) 100 UNIT/ML VIAL SQ SCH ×4 (07:17→21:03)
[2019-04-14] MEDS: ACETAMINOPHEN TAB 325 MG TAB PO PRN (07:22)
--- NOTE | 2019-04-14 11:08 | CDI ---
Documentation Clarification Form Date: 04/14/2019 10:57:40 AM From: Ramonita RoweSHAWN urena, CCDS Admit Date: 04/09/2019 01:38:00 PM Patient Name: Zehra Montes Visit Number: [id number] Discharge Date: ATTENTION: The Clinical Documentation Specialists (CDI) and [facility] Coding Staff appreciate your assistance in clarifying documentation. Please respond to the clarification below the line at the bottom and electronically sign. The CDI & [facility] Coding staff will review the response and follow-up if needed. Please note: Queries are made part of the Legal Health Record. If you have any questions, please contact the author of this message via ITS. Dr. Leatha Toledo or Dr. Vikram Zamarripa: Myocardial infarction is documented in the 04/11 heart catheterization report: "... 73-year-old female patient with coronary artery disease and prior stenting of the LAD as well as long-standing persistent atrial fibrillation as well as permanent pacemaker implantation, presented to the hospital with chest discomfort and elevated blood pressure. She was ruled in for acute [id number] myocardial infarction and because of that, a heart catheterization was advised." Patient History/Risk Factors: CAD with previous stent, atrial fibrillation documented as long standing persistent per the Senior Sales Associate & paroxysmal per the attending, asthma nos, CHF (EF unknown), DM II, Hypertension, Seizure disorder, Brain mass status post fall & intracranial bleed; CVA/TIA. Clinical Indicators: Presented to the ED on 04/09 with chest pain via EMS. Pain radiated to left shoulder & down left arm. Troponin 04/09: 0.023, 04/09: 0.032; 04/09: 0.037^^. EKG 04/09: R 60 atrial paced rhythm with prolonged AV conduction, ST & marked T wave abnormality, consider anterolateral ischemic. Prolonged QT, Abnormal. 04/11 Left heart catheterization: Patent stent in the proximal LAD artery. Mild disease in left circumflex & LAD. Advise medical treatment. Treatment on admission: Nitropaste, IV Heparin drip, IV Apresoline, IV Ativan. Heart Cath 04/11. In order to capture the severity of condition and necessary documentation specificity, please clarify: Myocardial Infarction is ruled out NSTEMI Other, please specify: Unable to determine (Last Revision: December 2016) MTDD
--- NOTE | 2019-04-14 11:19 | CDI ---
Documentation Clarification Form Date: 04/14/2019 CDS: Ramonita Rowe, CCS, CCDS Admit Date: 04/09/2019 Patient Name: Zehra Montes Discharge Date: ATTENTION: The Clinical Documentation Specialists (CDI) and [facility] Coding Staff appreciate your assistance in clarifying documentation. Please respond to the clarification below the line at the bottom and electronically sign. The CDI & [facility] Coding staff will review the response and follow-up if needed. Please note: Queries are made part of the Legal Health Record. If you have any questions, please contact the author of this message via ITS. Dear Dr. Leatha Toledo or Dr. Vikram Zamarripa: There is conflicting documentation in the record regarding the type of Atrial Fibrillation. Per the 04/11 heart catheterization report: "Long standing persistent atrial fibrillation" is documented. Per the Cardiology Consult on 04/10 and subsequent progress notes by cardiology & the attending physician: "paroxysmal atrial fibrillation" is documented. Patient History/Risk Factors: CAD with previous stent, Pacemaker, atrial fibrillation documented as long standing persistent per the Top Knitter & paroxysmal per the attending, asthma nos, CHF (EF unknown), DM II, Hypertension, Seizure disorder, Brain mass status post fall & intracranial bleed; CVA/TIA. Clinical Indicators: Presented to the ED on 04/09 with chest pain via EMS. Pain radiated to left shoulder & down left arm. Troponin 04/09: 0.023, 04/09: 0.032; 04/09: 0.037^^. EKG 04/09: R 60 atrial paced rhythm with prolonged AV conduction, ST & marked T wave abnormality, consider anterolateral ischemic. Prolonged QT, Abnormal. 04/11 Left heart catheterization: Patent stent in the proximal LAD artery. Mild disease in left circumflex & LAD. Advise medical treatment. Home meds: Nitro sl, Plavix, Coreg & Aspirin Treatment on admission: Nitropaste, IV Heparin drip, IV Apresoline, IV Ativan. Heart Cath on 04/11. In your professional opinion, can you please clarify the type of Atrial Fibrillation, if known? Paroxysmal Persistent Other, please specify Unable to determine (Last Revision: June 2017) MTDD
[2019-04-14 11:21] LABS: Glucose,Whole Blood 130 mg/dL (75-99)
--- NOTE | 2019-04-14 12:36 | P.DS ---
Providers Date of admission: 04/09/19 13:38 Expected date of discharge: 04/14/19 Attending physician: Vikram Zamarripa Consults: 04/09/19 13:38 Consult Physician Urgent Consulting Provider: [facility] Consult Reason/Comments: Unstable angina Do you want consulting provider notified?: Yes 04/09/19 18:40 Consult Physician Routine Consulting Provider: Tunde Cannon Consult Reason/Comments: hearing voices, delusional, psych history Do you want consulting provider notified?: Yes Primary care physician: [facility] Course: Chest pain, possible unstable angina status post cardiac catheterization with patent stent Troponin 0.03, indeterminate CAD, history of stent Acute metabolic encephalopathy ,Delirium, multifactorial, secondary to the above Chronic Atrial fibrillation, paroxysmal Mild thrombocytopenia hyponatremia Chronic intermittent asthma Chronic kidney disease stage III History of congestive heart failure, diastolic dysfunction History of cerebrovascular accident/TIA History of brain mass with intracranial bleed and hematoma previously diabetes mellitus type 2 Hypertension degenerative joint disease History of seizure disorder bilateral peripheral neuropathy related to diabetes mellitus permanent pacemaker History of blindness, left eye depression Gait dysfunction Hospital course; this is a 73-year-old female admitted with chest pain, confusion and multiple other medical issues. Evaluated by cardiology, cardiac catheterization performed reporting patent LAD stents, recommending medical management. Echocardiogram reveals EF of 55-60%, mild aortic regurgitation, mild tricuspid regurgitation, no pulmonary hypertension. Sensorium significantly improved. Cleared by all consults for discharge. Patient is being discharged t o subacute rehab in a stable condition with guarded prognosis. EXAM: GENERAL: Alert and oriented history, no acute distress HEART EXAMINATION: Heart S1 and S2 irregularly irregular CHEST EXAMINATION: Lungs are clear to auscultation and precussion. ABDOMEN: Soft, nontender. Bowel sounds are heard. NEUROLOGIC: No focal deficits. The impression and plan of care has been dictated as directed. : I performed a history and examination of this patient, discussed the same with the dictator. I agree with the dictator's note ,documented as a scribe. Any additional findings or plans will be noted. Patient Condition at Discharge: Stable Plan - Discharge Summary Discharge Rx Participant: No New Discharge Prescriptions: New Aspirin 325 mg PO DAILY 30 Days #30 tab Carvedilol [Coreg] 3.125 mg PO BID-W/MEALS 30 Days #60 tab QUEtiapine [SEROquel] 100 mg PO HS 30 Days #30 tab INSULIN LISPRO (HumaLOG) [humaLOG] 0 unit SQ ACHS #1 vial Continue Ferrous Sulfate [Iron (65 MG Elemental)] 325 mg PO DAILY Albuterol Inhaler [Ventolin Hfa Inhaler] 2 puff INHALATION RT-Q6H PRN PRN Reason: Shortness Of Breath Atorvastatin [Lipitor] 40 mg PO HS #90 tab Clopidogrel [Plavix] 75 mg PO DAILY #90 tab levETIRAcetam [Keppra] 500 mg PO Q12HR Nitroglycerin Sl Tabs [Nitrostat] 0.4 mg SUBLINGUAL Q5M PRN tab PRN Reason: Chest Pain Escitalopram [Lexapro] 20 mg PO DAILY Cyanocobalamin [Vitamin B-12] 500 mcg PO DAILY Calcium Carbonate 500 mg PO DAILY Insulin Glargine [Lantus] 20 unit SQ HS Discontinued QUEtiapine [SEROquel] 50 mg PO HS Midodrine [ProAmatine] 2.5 mg PO AC-TID #90 tab QUEtiapine FUMARATE [SEROquel] 25 mg PO HS Discharge Medication List Albuterol Inhaler [Ventolin Hfa Inhaler] 2 puff INHALATION RT-Q6H PRN 03/27/18 [History] Ferrous Sulfate [Iron (65 MG Elemental)] 325 mg PO DAILY 03/27/18 [History] Atorvastatin [Lipitor] 40 mg PO HS #90 tab 06/07/18 [Rx] Clopidogrel [Plavix] 75 mg PO DAILY #90 tab 06/07/18 [Rx] levETIRAcetam [Keppra] 500 mg PO Q12HR 07/21/18 [History] Nitroglycerin Sl Tabs [Nitrostat] 0.4 mg SUBLINGUAL Q5M PRN tab 07/30/18 [Rx] Escitalopram [Lexapro] 20 mg PO DAILY 10/25/18 [History] Cyanocobalamin [Vitamin B-12] 500 mcg PO DAILY 01/11/19 [History] Calcium Carbonate 500 mg PO DAILY 04/09/19 [History] Insulin Glargine [Lantus] 20 unit SQ HS 04/09/19 [History] Aspirin 325 mg PO DAILY 30 Days #30 tab 04/13/19 [Rx] Carvedilol [Coreg] 3.125 mg PO BID-W/MEALS 30 Days #60 tab 02/10/20 [Rx] QUEtiapine [SEROquel] 100 mg PO HS 30 Days #30 tab 04/13/19 [Rx] INSULIN LISPRO (HumaLOG) [humaLOG] 0 unit SQ ACHS #1 vial 04/14/19 [Rx] Follow up Appointment(s)/Referral(s): Jaiden Hawk MD [STAFF PHYSICIAN] - 04/20/19 4:00 pm (Saturday) [facility], [NON-STAFF] - 1-2 Days Vikram Zamarripa MD [Primary Care Provider] - 3 Days (Saturday) Ambulatory/Diagnostic Orders: Basic Metabolic Panel [LAB.AMB] Time Frame: 3 Days, Location: None Selected Patient Instructions/Handouts: *Surgery [facility] - After Heart Catheterization - Wheat Buyer Instructions, After Radial Heart Catheterization (GEN) Activity/Diet/Wound Care/Special Instructions: ECF: [facility] Activity as tolerated Follow-up with primary care provider upon discharge Follow-up with behavioral health consultant as discussed and scheduled Continue current diet Repeat labs in 2-3 days Discharge Disposition: TRANSFER TO SNF/ECF
[2019-04-14 16:47] LABS: Glucose,Whole Blood 133 mg/dL (75-99)
[2019-04-14 20:04] LABS: Glucose,Whole Blood 180 mg/dL (75-99)
[2019-04-14] MEDS: ATORVASTATIN 40 MG TAB PO SCH (21:03)
[2019-04-14] MEDS: QUEtiapine 100 MG TAB PO SCH (21:03)
[2019-04-14] MEDS: INSULIN DETEMIR (LEVEMIR) 100 UNIT/ML SYR SQ SCH (21:03)
[2019-04-15 04:01] LABS: Glucose,Whole Blood 106 mg/dL (75-99)
[2019-04-15 04:21] VITALS: BP 175/69; RESP 18; TEMP 98
[2019-04-15] MEDS: NITROGLYCERIN OINT 1 INCH/GM PACKET TOPICAL SCH (05:33)
[2019-04-15] MEDS: CALCIUM CARBONATE 500 MG CHEWABLE PO SCH (07:29)
[2019-04-15] MEDS: CYANOCOBALAMIN 500 MCG TAB PO SCH (07:30)
[2019-04-15] MEDS: CLOPIDOGREL 75 MG TAB PO SCH (07:30)
[2019-04-15] MEDS: MIDODRINE 5 MG TAB PO SCH (07:30)
[2019-04-15] MEDS: CARVEDILOL 3.125 MG TAB PO SCH (07:30)
[2019-04-15] MEDS: ASPIRIN 81 MG PO SCH (07:30)
[2019-04-15] MEDS: FERROUS SULFATE 325 MG TAB PO SCH (07:30)
[2019-04-15 07:31] LABS: Glucose,Whole Blood 117 mg/dL (75-99)
[2019-04-15] MEDS: ESCITALOPRAM 20 MG TAB PO SCH (07:31)
[2019-04-15] MEDS: INSULIN ASPART (NovoLOG) 100 UNIT/ML VIAL SQ SCH (07:37)
[2019-04-15] MEDS: levETIRAcetam 500 MG TAB PO SCH (07:37)
[2019-04-15 07:41] VITALS: PULSE 64
--- NOTE | 2019-04-17 05:28 | DS ---
DISCHARGE SUMMARY Please add to discharge summary: Myocardial infarction ruled out. History of coronary artery disease. Prolonged QT abnormalities. Unstable angina. Anxiety. MMODL / IJN: [id number] /
--- NOTE | 2019-04-17 05:33 | DS ---
DISCHARGE SUMMARY Please add: Paroxysmal atrial fibrillation. MMODL / IJN: [id number] /
== END 2019-04-15 11:50 | DRG 286 ==
LOC: EC 11:14 → 3SCARD 13:38 → 5NMEDONC 04-13 17:13
PROVIDERS: ADMIT Family Medicine; ATTEND Family Medicine
DX: I25.110 Atherosclerotic heart disease of native coronary artery with unstable angina pectoris (principal); G93.41 Metabolic encephalopathy; F05 Delirium due to known physiological condition; I13.0 Hypertensive heart and chronic kidney disease with heart failure and stage 1 through stage 4 chronic kidney disease, or unspecified chronic kidney disease; E87.1 Hypo-osmolality and hyponatremia; I50.32 Chronic diastolic (congestive) heart failure; M19.90 Unspecified osteoarthritis, unspecified site; N18.3 Chronic kidney disease, stage 3 (moderate); F32.9 Major depressive disorder, single episode, unspecified; I16.0 Hypertensive urgency; D69.6 Thrombocytopenia, unspecified; E11.22 Type 2 diabetes mellitus with diabetic chronic kidney disease; E11.42 Type 2 diabetes mellitus with diabetic polyneuropathy; R26.9 Unspecified abnormalities of gait and mobility; I48.0 Paroxysmal atrial fibrillation; E78.5 Hyperlipidemia, unspecified; G40.909 Epilepsy, unspecified, not intractable, without status epilepticus; H54.62 Unqualified visual loss, left eye, normal vision right eye; J45.20 Mild intermittent asthma, uncomplicated; Z91.040 Latex allergy status; Z79.899 Other long term (current) drug therapy; Z79.02 Long term (current) use of antithrombotics/antiplatelets; Z88.2 Allergy status to sulfonamides; Z80.8 Family history of malignant neoplasm of other organs or systems; Z79.4 Long term (current) use of insulin; Z85.42 Personal history of malignant neoplasm of other parts of uterus; Z82.5 Family history of asthma and other chronic lower respiratory diseases; Z82.49 Family history of ischemic heart disease and other diseases of the circulatory system; Z86.19 Personal history of other infectious and parasitic diseases; Z86.14 Personal history of Methicillin resistant Staphylococcus aureus infection; Z87.11 Personal history of peptic ulcer disease; Z86.73 Personal history of transient ischemic attack (TIA), and cerebral infarction without residual deficits; Z90.49 Acquired absence of other specified parts of digestive tract; Z90.710 Acquired absence of both cervix and uterus; Z95.0 Presence of cardiac pacemaker; Z95.5 Presence of coronary angioplasty implant and graft; Z85.828 Personal history of other malignant neoplasm of skin
CPT/HCPCS: 36415; 70450; 71046; 80048; 80053; 80061; 81001; 81003; 83735; 84484; 85025; 85027; 85610; 85730; 93005; 93306; 93458; 96365; 96366; 96376; 99291

== ENCOUNTER 2019-08-31 15:42 | Observation (INO) | payer MEDICARE ==
[2019-08-31] MEDS ORDERED: ACETAMINOPHEN TAB 500 MG TAB PO PRN (18:54)
[2019-08-31] MEDS ORDERED: ALBUTEROL NEBULIZED 2.5 MG/3 ML INHALATION PRN (18:54)
[2019-08-31] MEDS ORDERED: NITROGLYCERIN SL TABS 0.4 MG TAB SUBLINGUAL PRN (18:54)
[2019-08-31] MEDS ORDERED: INSULIN DETEMIR (LEVEMIR) 100 UNIT/ML SYR SQ PRN (18:54)
[2019-08-31 19:00] LABS: Basophils # (A) 0.1 k/uL (0-0.2); Basophils % (A) 1 %; Eosinophils # (A) 0.2 k/uL (0-0.7); Eosinophils % (A) 2 %; HCT 46.7 % (34.0-46.0); HGB 14.4 gm/dL (11.4-16.0); Lymphocytes # (A) 1.7 k/uL (1.0-4.8); Lymphocytes % (A) 26 %; MCHC 30.8 g/dL (31.0-37.0); MCV 87.7 fL (80.0-100.0); Monocytes # (A) 0.4 k/uL (0-1.0); Monocytes % (A) 6 %; Neutrophils # (A) 4.1 k/uL (1.3-7.7); Neutrophils % (A) 63 %; Platelet Count 135 k/uL (150-450); RBC 5.33 m/uL (3.80-5.40); RDW 13.4 % (11.5-15.5); WBC 6.5 k/uL (3.8-10.6)
[2019-08-31] MEDS ORDERED: QUEtiapine 25 MG TAB PO SCH (19:00)
[2019-08-31] MEDS ORDERED: QUEtiapine 50 MG TAB PO SCH (19:00)
[2019-08-31 19:12] LABS: Albumin 3.9 g/dL (3.5-5.0); Calcium 9.2 mg/dL (8.4-10.2); Potassium 4.5 mmol/L (3.5-5.1); Total Bilirubin 0.8 mg/dL (0.2-1.3); Total Protein 6.3 g/dL (6.3-8.2)
[2019-08-31] MEDS: SYMBICORT 160-4.5 MCG INHALER INHALATION SCH (19:25)
--- NOTE | 2019-08-31 19:28 | CT ---
EXAMINATION TYPE: CT brain wo con DATE OF EXAM: 08/31/2019 COMPARISON: 04/10/2019 HISTORY: Weakness, confusion CT DLP: 944.5 mGycm Automated exposure control for dose reduction was used. There is large 6 cm area of hypodensity in the right occipital lobe and posterior parietal lobe consi stent with encephalomalacia. There is no mass effect nor midline shift. There is no sign of intracran ial hemorrhage. There is old right posterior parietal craniotomy defect. IMPRESSION: Large area of old encephalomalacia in the right occipital and parietal lobe unchanged compared to old exam. No acute intracranial abnormality.
--- NOTE | 2019-08-31 19:33 | XR ---
EXAMINATION TYPE: XR chest 2V DATE OF EXAM: 08/31/2019 COMPARISON: 07/31/2019 HISTORY: Cough. Short of breath TECHNIQUE: FINDINGS: There is no heart failure nor confluent pneumonic infiltrate. There is slight blunting righ t costophrenic angle. There is left axillary pacemaker. Bony thorax is intact. IMPRESSION: No active cardiopulmonary disease. There is minimal pleural scarring at the lateral right lung base unchanged.
[2019-08-31] MEDS: levETIRAcetam 500 MG TAB PO SCH (21:18)
[2019-08-31] MEDS: QUEtiapine 100 MG TAB PO SCH (21:18)
[2019-08-31] MEDS: hydrALAZINE HCL 20 MG/ML 1 ML VIAL IVP PRN ×2 (21:19→21:26)
[2019-08-31] MEDS: SODIUM CHLORIDE 0.9% 1,000 ML IV SCH (21:21)
[2019-08-31] MEDS: ATORVASTATIN 40 MG TAB PO SCH (21:21)
[2019-08-31 22:04] LABS: Glucose,Whole Blood 154 mg/dL (75-99)
[2019-08-31 22:06] LABS: Appearance,Urine Clear (Clear); Bacteria,Urine Rare /hpf; Bilirubin,Urine Negative (Negative); Blood,Urine Negative (Negative); Color,Urine Yellow; Glucose,Urine (UA) Trace (Negative); Hyaline Casts,Urine 11 /lpf (0-2); Ketones,Urine Negative (Negative); Leukocyte Esterase,Urine Moderate (Negative); Mucus,Urine Few /hpf; Nitrite,Urine Negative (Negative); PH, Urine 5.5 (5.0-8.0); Protein,Urine Trace (Negative); RBC,Urine 28 /hpf (0-5); Specific Gravity,Urine 1.029 (1.001-1.035); Squamous Epithelial Cell,Urine <1 /hpf (0-4); WBC,Urine 24 /hpf (0-5)
[2019-09-01 07:09] LABS: Glucose,Whole Blood 178 mg/dL (75-99)
[2019-09-01] MEDS: SYMBICORT 160-4.5 MCG INHALER INHALATION SCH ×2 (07:26→19:12)
[2019-09-01] MEDS ORDERED: MIDODRINE 5 MG TAB PO SCH (07:30)
[2019-09-01] MEDS: CLOPIDOGREL 75 MG TAB PO SCH (10:42)
[2019-09-01] MEDS: CALCIUM CARBONATE 500 MG CHEWABLE PO SCH (10:42)
[2019-09-01] MEDS: CYANOCOBALAMIN 500 MCG TAB PO SCH (10:42)
[2019-09-01] MEDS: FERROUS SULFATE 325 MG TAB PO SCH (10:42)
[2019-09-01] MEDS: SODIUM CHLORIDE 0.9% 1,000 ML IV SCH ×2 (10:54→21:54)
[2019-09-01] MEDS: levETIRAcetam 500 MG TAB PO SCH ×2 (10:54→21:54)
[2019-09-01] MEDS: SODIUM CHLORIDE 5% OPHTH OINT 3.5 GM TUBE BOTH EYES SCH (10:59)
[2019-09-01 12:23] LABS: Glucose,Whole Blood 174 mg/dL (75-99)
--- NOTE | 2019-09-01 12:37 | EEG ---
ELECTROENCEPHALOGRAM REPORT DATE OF SERVICE: 09/01/2019 PREAMBLE: This is a 74-year-old female who is admitted for some altered mental status. The patient has history of seizure, and a craniotomy in the past. This study is performed to evaluate for any epileptiform activity. The patient is currently on Keppra. EEG FINDINGS: This is a 21 channel routine EEG recording in a patient utilizing 10/20 international system with referential and bipolar montages. The background consists of somewhat suppressed low-voltage activity with mixed alpha and some beta and myogenic activity. There is continuous myogenic activity seen in bitemporal region. There is a relatively larger amplitude activity over the right central parietal region with focal slowing, consistent with breach rhythm from previous craniotomy defect. No definitive epileptiform activity was seen. Photic driving response was not seen. Different stages of sleep were not seen. IMPRESSION: This is an abnormal EEG due to: 1. Slightly suppressed background with disorganization, suggestive of encephalopathy, or medication effect. 2. Higher amplitude activity with focal slowing over the right central parietal region, suggestive of breach rhythm related to previous craniotomy defect. 3. No definitive epileptiform activity was seen. MMODL / IJN: [id number] /
[2019-09-01 17:19] LABS: Glucose,Whole Blood 161 mg/dL (75-99)
[2019-09-01 20:27] LABS: Glucose,Whole Blood 137 mg/dL (75-99)
[2019-09-01] MEDS: QUEtiapine 100 MG TAB PO SCH (21:54)
[2019-09-01] MEDS: ATORVASTATIN 40 MG TAB PO SCH (21:54)
--- NOTE | 2019-09-01 23:11 | HP ---
HISTORY AND PHYSICAL This patient is a 74-year-old white female admitted to the hospital with altered mental status and confusion, was found to have UTI with sepsis with urosepsis, started on broad-spectrum antibiotics. Waiting for urine culture. No chest pain or shortness of breath. No lightheadedness or syncope. REVIEW OF SYSTEMS: Twelve-point review of systems negative except for mentioned in HPI. HOME MEDICATIONS: 1. Lipitor 40 daily. 2. Tums 500 daily. 3. 1 gram q.12. 4. Plavix 75 daily. 5. Ferrous sulfate 325 daily. 6. Hydralazine 10 q.6 p.r.n. IV for blood pressure. 7. Levemir 20 daily. 8. Keppra 500 b.i.d. 9. Nitroglycerin sublingually. 10.Seroquel 100 daily. PHYSICAL EXAMINATION: NEUROLOGIC: Alert and oriented x1. CARDIOVASCULAR: S1, S2. LUNGS: Clear. HEMATOLOGY: Negative Homans. PSYCH: Fair mood and affect. ASSESSMENT: 1. Urinary tract infection, urosepsis. 2. Mood disorder. 3. Insomnia. 4. Hypertension acceleration. Continue with IV antibiotics. Follow up in next 24-48 hours for the urine culture. The patient's mental status is improved. Her metabolic encephalopathy secondary to UTI is improving. MMODL / IJN: [id number] /
--- NOTE | 2019-09-01 23:36 | P.CONS ---
History of Present Illness - Reason for Consult Consult date: 09/01/19 Urinary tract infection Requesting physician: Vikram Zamarripa - Chief Complaint Mental status changes and urinary pressure x 1 day - History of Present Illness Patient is a 74-year-old female with a past medical history significant for recurrent infection and CVA in this patient was noticed to have some mental status changes confusion on routine follow-up visit with her primary care physician and apparently the patient was noticed to have some drooling of her face by her [id number] with concern for possible stroke versus UTI the patient has been electively admitted to the hospital patient has been complaining of some suprapubic pressure and discomfort more of a dull aching pain but no significant burning or frequency of urination or flank pain and na usea but no vomiting did have some chest denies high-grade fever patient did have a positive UA and hospital with concern for possible urosepsis in this patient who did have a CT of the brain which did show some old finding but no acute abnormality and chest x-ray has been negative patient was started on Rocephin and infectious disease was consulted for further management of antibiotic therapy Review of Systems Positive point has been mentioned in the HPI rest of the systems are negative Past Medical History Past Medical History: Atrial Fibrillation, Asthma, Coronary Artery Disease (CAD), Cancer, Heart Failure, CVA/TIA, Diabetes Mellitus, Eye Disorder, Hypertension, Osteoarthritis (OA), Renal Disease, Seizure Disorder Additional Past Medical History / Comment(s): Brain mass/fall with intracranial bleed/hematome-surgery at [facility], seizure after brain surgery, paroxysmal Afib, IDDM type II, neuropathy bilateral feet, orthostatic hypotension, SSS with pacemaker, L1 compression fx, CKD stage III, blind in L eye, UTIs, lower GI bleed, gastritis, gastric erosion, CDiff colitis, skin cancer with removals, past L arm fracture, past R arm fracture x2. History of Any Multi-Drug Resistant Organisms: MRSA Year Discovered:: 01/26/19 MDRO Source:: URINE Past Surgical History: Cholecystectomy, Heart Catheterization, Heart Catheterization With Stent, Hysterectomy, Pacemaker Additional Past Surgical History / Comment(s): Evacuation of intracranial hematoma and ressection of hemorrhagic mass, pacemaker 2016, PCI with stent 06/06/18, EGD/colonoscopy, R eye corneal implant/cataract removal, EGD 06/2018, colonoscopy, skin cancer removal. Past Anesthesia/Blood Transfusion Reactions: No Reported Reaction Additional Past Anesthesia/Blood Transfusion Reaction / Comm: . Date of Last Stent Placement:: 06/06/18 Type of Cardiac Device: Permanent Pacemaker Device Placement Date:: 04/2016 Past Psychological History: Depression Additional Psychological History / Comment(s): Pt has her son and tiki in law living with her. She uses a walker and has a wheelchair for longer distaces. She no longer drives, her family drives her to [employer]. Her son manages her medications. Tiki in law cooks. Pt states her depression has been increased lately but denies any thoughts/plans of suicide. Smoking Status: Never smoker Past Alcohol Use History: None Reported Past Drug Use History: None Reported - Past Family History Mother Family Medical History: Cancer, COPD, Hypertension Additional Family Medical History / Comment(s): Mother had bone cancer. Father Family Medical History: Cancer, Hypertension Additional Family Medical History / Comment(s): Father had skin cancer. Medications and Allergies Home Medications Medication Instructions Recorded Confirmed Type Ferrous Sulfate [Iron (65 MG 325 mg PO DAILY 03/27/18 08/31/19 History Elemental)] Atorvastatin [Lipitor] 40 mg PO HS #90 tab 06/07/18 08/31/19 Rx Clopidogrel [Plavix] 75 mg PO DAILY #90 tab 06/07/18 08/31/19 Rx levETIRAcetam [Keppra] 500 mg PO Q12HR 07/21/18 08/31/19 History Nitroglycerin Sl Tabs [Nitrostat] 0.4 mg SUBLINGUAL Q5M PRN tab 07/30/18 08/31/19 Rx Cyanocobalamin [Vitamin B-12] 500 mcg PO DAILY 01/11/19 08/31/19 History Calcium Carbonate 500 mg PO DAILY 04/09/19 08/31/19 History Insulin Glargine [Lantus] 20 unit SQ HS PRN 04/09/19 08/31/19 History QUEtiapine [SEROquel] 100 mg PO HS 30 Days #30 tab 04/13/19 08/31/19 Rx Midodrine [ProAmatine] 2.5 mg PO AC-TID tab 04/14/19 08/31/19 Rx Acetaminophen Tab [Tylenol Tab] 500 mg PO Q6HR PRN 08/31/19 08/31/19 History Albuterol Sulfate [Ventolin HFA] 2 puff INHALATION RT-Q4H PRN 08/31/19 08/31/19 History Budesonide/Formoterol Fumarate 1 puff INHALATION RT-BID 08/31/19 08/31/19 History [Symbicort 160-4.5 Mcg Inhaler] QUEtiapine [SEROquel] 25 mg PO DIRECTED 08/31/19 08/31/19 History QUEtiapine [SEROquel] 50 mg PO DIRECTED 08/31/19 08/31/19 History Sodium Chloride 5% Ophth Oint 1 drop BOTH EYES DAILY 08/31/19 08/31/19 History [Amanda 128] prednisoLONE [prednisoLONE Oral 1 drop LEFT EYE DAILY 08/31/19 08/31/19 History Soln] Allergies Allergy/AdvReac Type Severity Reaction Status Date / Time Latex, Natural Rubber Allergy Itching Verified 08/31/19 17:37 sulfamethoxazole Allergy Rash/Hives Verified 08/31/19 17:37 [From Bactrim] trimethoprim [From Bactrim] Allergy Rash/Hives Verified 08/31/19 17:37 Physical Exam Vitals: Vital Signs Temp Pulse Resp BP BP Pulse Ox 09/01/19 08:00 66 16 09/01/19 07:52 167/77 09/01/19 04:33 97.6 F 66 16 149/66 92 L 08/31/19 21:05 98.0 F 62 16 197/66 94 L 08/31/19 20:29 60 182/60 08/31/19 20:28 64 201/84 08/31/19 20:20 60 197/80 08/31/19 16:52 98.1 F 60 18 164/67 94 L Intake and Output 08/31/19 09/01/19 09/01/19 22:59 06:59 14:59 Intake Total 300 600 Output Total 400 Balance 300 200 Intake: Intake, IV Titration 300 600 Amount Sodium Chloride 0.9% 1, 300 600 000 ml @ 75 mls/hr IV . [id number] [facility] Rx#:[id number] Output: Urine 400 Other: Voiding Method Bedside Commode Bedside Commode # Voids 2 Weight 79.9 kg GENERAL DESCRIPTION: An elderly female lying in bed, no distress. No tachypnea or accessory muscle of respiration use. HEENT: Shows Pallor , no scleral icterus. Oral mucous membrane is dry. No pharyngeal erythema or thrush NECK: Trachea central, no thyromegaly. LUNGS: Unlabored breathing. Clear to auscultation anteriorly. No wheeze or crackle. HEART: S1, S2, regular rate and rhythm. No loud murmur ABDOMEN: Soft, no tenderness , guarding or rigidity, no organomegaly EXTREMITIES: No edema of feet. SKIN: No rash, no masses palpable. NEUROLOGICAL: The patient is awake, alert, oriented x3, mood and affect normal. Results CBC & Chem 7: 08/31/19 18:33 08/31/19 18:33 Labs: Abnormal Lab Results - Last 24 Hours (Table) 08/31/19 08/31/19 08/31/19 Range/Units 18:33 18:33 22:03 Hct 46.7 H (34.0-46.0) % MCHC 30.8 L (31.0-37.0) g/dL Plt Count 135 L (150-450) k/uL Carbon Dioxide 31 H (22-30) mmol/L BUN 23 H (7-17) mg/dL Creatinine 1.42 H (0.52-1.04) mg/dL Glucose 169 H (74-99) mg/dL POC Glucose (mg/dL) 154 H (75-99) mg/dL Urine Protein (Negative) Urine Glucose (UA) (Negative) Ur Leukocyte Esterase (Negative) Urine RBC (0-5) /hpf Urine WBC (0-5) /hpf Urine Bacteria (None) /hpf Hyaline Casts (0-2) /lpf Urine Mucus (None) /hpf 08/31/19 09/01/19 Range/Units Unknown 07:07 Hct (34.0-46.0) % MCHC (31.0-37.0) g/dL Plt Count (150-450) k/uL Carbon Dioxide (22-30) mmol/L BUN (7-17) mg/dL Creatinine (0.52-1.04) mg/dL Glucose (74-99) mg/dL POC Glucose (mg/dL) 178 H (75-99) mg/dL Urine Protein Trace H (Negative) Urine Glucose (UA) Trace H (Negative) Ur Leukocyte Esterase Moderate H (Negative) Urine RBC 28 H (0-5) /hpf Urine WBC 24 H (0-5) /hpf Urine Bacteria Rare H (None) /hpf Hyaline Casts 11 H (0-2) /lpf Urine Mucus Few H (None) /hpf Microbiology - Last 24 Hours (Table) 08/31/19 Unknown Urine Culture - Preliminary Urine,Voided Assessment and Plan Assessment: 1- patient presented to hospital with some mental status changes in this patient who did have a history of recurrent UTI has been complaining of some pubic p ressure and discomfort likely symptomatic UTI in this patient did have a positive UA and likely from it and come back to pathogen 2-patient with sulfa ALLERGY that would limit the number of antibiotics (1) UTI (urinary tract infection) Current Visit: No Status: Acute Code(s): N39.0 - URINARY TRACT INFECTION, SITE NOT SPECIFIED SNOMED Code(s): 23840264 Plan: 1- Rocephin 1 g IV piggyback daily 2-gentle IV fluid Will follow on a clinical condition and cultures to further adjust medication if needed Thank you for this consultation will follow this patient along with you Time with Patient: Greater than 30
[2019-09-02 07:11] LABS: Glucose,Whole Blood 168 mg/dL (75-99)
[2019-09-02] MEDS: SYMBICORT 160-4.5 MCG INHALER INHALATION SCH ×2 (09:32→20:35)
[2019-09-02] MEDS: SODIUM CHLORIDE 0.9% 1,000 ML IV SCH (10:07)
[2019-09-02] MEDS: levETIRAcetam 500 MG TAB PO SCH ×3 (10:28→20:22)
[2019-09-02] MEDS: CYANOCOBALAMIN 500 MCG TAB PO SCH (10:28)
[2019-09-02] MEDS: CLOPIDOGREL 75 MG TAB PO SCH (10:28)
[2019-09-02] MEDS: FERROUS SULFATE 325 MG TAB PO SCH (10:28)
[2019-09-02] MEDS: CALCIUM CARBONATE 500 MG CHEWABLE PO SCH (10:28)
[2019-09-02] MEDS: SODIUM CHLORIDE 5% OPHTH OINT 3.5 GM TUBE BOTH EYES SCH (10:29)
[2019-09-02 11:39] LABS: Glucose,Whole Blood 221 mg/dL (75-99)
[2019-09-02 17:17] LABS: Glucose,Whole Blood 165 mg/dL (75-99)
[2019-09-02] MEDS: ATORVASTATIN 40 MG TAB PO SCH ×2 (20:05→20:22)
[2019-09-02] MEDS: QUEtiapine 100 MG TAB PO SCH ×2 (20:05→20:22)
[2019-09-02 20:56] LABS: Glucose,Whole Blood 187 mg/dL (75-99)
[2019-09-02 21:21] VITALS: RESP 18
--- NOTE | 2019-09-02 23:25 | PN ---
PROGRESS NOTE DATE OF SERVICE: 09/02/2019 REASON FOR FOLLOWUP: Urinary tract infection. INTERVAL HISTORY: The patient is currently afebrile. The patient is breathing comfortably. The patient denies having any chest pain or shortness of breath or cough. No nausea, no vomiting. No abdominal pain or diarrhea. PHYSICAL EXAMINATION: Her blood pressure is 176/74 with a pulse of 62, temperature 97.9. She is 97% on room air. General description is an elderly female lying in bed in no distress. RESPIRATORY SYSTEM: Unlabored breathing. Clear to auscultation anteriorly. HEART: S1, S2. Regular rate and rhythm. ABDOMEN: Soft. No tenderness. LABS: Cultures are currently pending. DIAGNOSTIC IMPRESSION AND PLAN: Patient admitted to hospital with mental status changes and weakness which is likely multifactorial with a possible concern for urinary tract infection with a positive UA and history of recurrent UTIs. The patient is currently covered with Rocephin; to continue while waiting for the culture to finalize. Continue supportive care. MMODL / IJN: [id number] /
[2019-09-03] MEDS: SYMBICORT 160-4.5 MCG INHALER INHALATION SCH (07:33)
[2019-09-03 07:43] LABS: Glucose,Whole Blood 165 mg/dL (75-99)
[2019-09-03] MEDS: levETIRAcetam 500 MG TAB PO SCH (07:44)
[2019-09-03] MEDS: CYANOCOBALAMIN 500 MCG TAB PO SCH (07:44)
[2019-09-03] MEDS: CLOPIDOGREL 75 MG TAB PO SCH (07:44)
[2019-09-03] MEDS: CALCIUM CARBONATE 500 MG CHEWABLE PO SCH (07:44)
[2019-09-03] MEDS: FERROUS SULFATE 325 MG TAB PO SCH (07:44)
[2019-09-03] MEDS: SODIUM CHLORIDE 0.9% 1,000 ML IV SCH (07:49)
[2019-09-03] MEDS: SODIUM CHLORIDE 5% OPHTH OINT 3.5 GM TUBE BOTH EYES SCH (07:50)
[2019-09-03] MEDS ORDERED: prednisoLONE ACETATE 1% OPHTH DROPS 5 ML BTL LEFT EYE SCH (09:00)
[2019-09-03] MEDS ORDERED: hydrALAZINE HCL 25 MG TAB PO SCH (10:45)
--- NOTE | 2019-09-03 10:46 | P.DS ---
Providers Date of admission: 08/31/19 17:51 Expected date of discharge: 09/03/19 Attending physician: Vikram Zamarripa Consults: 09/01/19 08:27 Consult Physician Routine Consulting Provider: Estrellita Benz Consult Reason/Comments: urosepsis Do you want consulting provider notified?: Yes [facility] Course: Final diagnoses Acute UTI Acute metabolic encephalopathy secondary to the above Accelerated Hypertension CAD, history of stent Chronic Atrial fibrillation, paroxysmal Mild thrombocytopenia hyponatremia, mild, resolved Chronic intermittent asthma Chronic kidney disease stage III History of congestive heart failure, diastolic dysfunction History of cerebrovascular accident/TIA History of brain mass with intracranial bleed and hematoma previously diabetes mellitus type 2 degenerative joint disease History of seizure disorder Hospital course this a 74-year-old female admitted with acute UTI, confusion and multiple other medical issues. Urine culture reported no growth. Evaluated by ID. Maintained on IV antibiotics of Rocephin. Oral hydralazine added to med regimen. Significant clinical improvement. Patient will be discharged home today in a stable condition with guarded prognosis pending final DC recommendations and clearance from ID. The impression and plan of care has been dictated as directed. : I performed a history and examination of this patient, discussed the same with the dictator. I agree with the dictator's note ,documented as a scribe. Any additional findings or plans will be noted. Patient Condition at Discharge: Stable Plan - Discharge Summary Discharge Rx Participant: No New Discharge Prescriptions: New hydrALAZINE HCL [Apresoline] 25 mg PO BID #60 tab Continue Ferrous Sulfate [Iron (65 MG Elemental)] 325 mg PO DAILY Atorvastatin [Lipitor] 40 mg PO HS #90 tab Clopidogrel [Plavix] 75 mg PO DAILY #90 tab levETIRAcetam [Keppra] 500 mg PO Q12HR Nitroglycerin Sl Tabs [Nitrostat] 0.4 mg SUBLINGUAL Q5M PRN tab PRN Reason: Chest Pain Cyanocobalamin [Vitamin B-12] 500 mcg PO DAILY Calcium Carbonate 500 mg PO DAILY Insulin Glargine [Lantus] 20 unit SQ HS PRN PRN Reason: Blood Sugar - High QUEtiapine [SEROquel] 100 mg PO HS 30 Days #30 tab Midodrine [ProAmatine] 2.5 mg PO AC-TID tab Albuterol Sulfate [Ventolin HFA] 2 puff INHALATION RT-Q4H PRN PRN Reason: Shortness Of Breath Budesonide/Formoterol Fumarate [Symbicort 160-4.5 Mcg Inhaler] 1 puff INHALATION RT-BID QUEtiapine [SEROquel] 50 mg PO DIRECTED QUEtiapine [SEROquel] 25 mg PO DIRECTED Sodium Chloride 5% Ophth Oint [Amanda 128] 1 drop BOTH EYES DAILY prednisoLONE [prednisoLONE Oral Soln] 1 drop LEFT EYE DAILY Acetaminophen Tab [Tylenol] 500 mg PO Q6HR PRN PRN Reason: Pain Discharge Medication List Ferrous Sulfate [Iron (65 MG Elemental)] 325 mg PO DAILY 03/27/18 [History] Atorvastatin [Lipitor] 40 mg PO HS #90 tab 06/07/18 [Rx] Clopidogrel [Plavix] 75 mg PO DAILY #90 tab 06/07/18 [Rx] levETIRAcetam [Keppra] 500 mg PO Q12HR 07/21/18 [History] Nitroglycerin Sl Tabs [Nitrostat] 0.4 mg SUBLINGUAL Q5M PRN tab 07/30/18 [Rx] Cyanocobalamin [Vitamin B-12] 500 mcg PO DAILY 01/11/19 [History] Calcium Carbonate 500 mg PO DAILY 04/09/19 [History] Insulin Glargine [Lantus] 20 unit SQ HS PRN 04/09/19 [History] QUEtiapine [SEROquel] 100 mg PO HS 30 Days #30 tab 04/13/19 [Rx] Midodrine [ProAmatine] 2.5 mg PO AC-TID tab 04/14/19 [Rx] Acetaminophen Tab [Tylenol] 500 mg PO Q6HR PRN 08/31/19 [History] Albuterol Sulfate [Ventolin HFA] 2 puff INHALATION RT-Q4H PRN 08/31/19 [History] Budesonide/Formoterol Fumarate [Symbicort 160-4.5 Mcg Inhaler] 1 puff INHALATION RT-BID 08/31/19 [History] QUEtiapine [SEROquel] 25 mg PO DIRECTED 08/31/19 [History] QUEtiapine [SEROquel] 50 mg PO DIRECTED 08/31/19 [History] Sodium Chloride 5% Ophth Oint [Amanda 128] 1 drop BOTH EYES DAILY 08/31/19 [History] prednisoLONE [prednisoLONE Oral Soln] 1 drop LEFT EYE DAILY 08/31/19 [History] hydrALAZINE HCL [Apresoline] 25 mg PO BID #60 tab 09/03/19 [Rx] Follow up Appointment(s)/Referral(s): Vikram Zamarripa MD [Primary Care Provider] - [facility] Days [facility], [NON-STAFF] - Activity/Diet/Wound Care/Special Instructions: Antibiotics as per ID
[2019-09-03 11:18] LABS: Glucose,Whole Blood 195 mg/dL (75-99)
[2019-09-03 11:56] VITALS: TEMP 97.7
--- NOTE | 2019-09-03 11:56 | PN ---
PROGRESS NOTE DATE OF SERVICE: 09/02/2019 74-year-old white female with UTI, urosepsis. The patient is greatly improving. Waiting for final urine culture prior to her going home. Cardiovascular S1-S2. Lungs clear. GI soft. Psych fair mood and affect. Neurologic: Cranial nerves are intact. ASSESSMENT: Metabolic encephalopathy due to urinary tract infection and urosepsis, improving. Waiting for final urine culture prior to discharge. Continue with IV antibiotics. Wait for Dr. Benz's recommendations. MMJULYL / IJN: [id number] /
[2019-09-03 13:49] VITALS: BP 180/81; PULSE 60
--- NOTE | 2019-09-03 13:56 | PN ---
PROGRESS NOTE DATE OF SERVICE: 09/03/2019 REASON FOR FOLLOWUP: Possible UTI infection. INTERVAL HISTORY: Patient is currently afebrile. The patient is breathing comfortably. Denies having any chest pain. No shortness of breath or cough. No nausea, no vomiting. No abdominal pain or diarrhea. PHYSICAL EXAMINATION: Blood pressure is 161/73 with a pulse of 82, temperature of 97.6. She is 96% on room air. General description: The patient is an elderly female lying in bed in no distress. Respiratory system: Unlabored breathing. Clear to auscultation anteriorly. Heart S1, S2. Regular rate and rhythm. Abdomen soft, no tenderness. LABS: Urine culture came back negative. DIAGNOSTIC IMPRESSION AND PLAN: Patient admitted to the hospital with mental status changes and weakness with concern for urinary tract infection in this patient who did have a positive UA and history of recurrent urinary tract infection, possible mild cystitis. Underlying cystitis, adequately treated. No need for any antibiotic on discharge. Continue supportive care. MMODL / IJN: [id number] /
--- NOTE | 2019-09-08 10:01 | CDI ---
Documentation Clarification Form Date: 09/08/19 From: Aylin Bautista CCS Phone: If you have a question about this query, please contact Kasie Ventura, Carton Catcher at [phone] between 8am and 5pm. Admit Date: 08/31/19 Discharge Date:09/03/19 Patient Name: Zehra Montes Visit Number: [id number] ATTENTION: The Clinical Documentation Specialists (CDI) and [facility] Coding Staff appreciate your assistance in clarifying documentation. Please respond to the clarification below the line at the bottom and electronically sign. The CDI & [facility] Coding staff will review the response and follow-up if needed. Please note: Queries are made part of the Legal Health Record. If you have any questions, please contact the author of this message via ITS. Dear Dr. Zamarripa, Conflicting documentation has been found in the medical record: H&P documents: This patient is a 74-year-old white female admitted to the hospital with altered mental status and confusion, was found to have UTI with sepsis with urosepsis, started on broad-spectrum antibiotics.Waiting for urine culture. H&P, PN documents: Urinary tract infection, urosepsis History/Risk Factors: Cystitis, Metabolic encephalopathy, CHF, HTN, DM Clinical Indicators: Encephalopathy Labs: WBC 6.5 Vitals: BP 167/77, Temp 97.0, RR 16, OK 66, O2 Sat 92 Treatment: Rocephin 1 gm IVPB Q12HR In your opinion, what is the most clinically appropriate diagnosis for this patient? Sepsis Urosepsis Cystitis Other explanation of clinical findings Unable to determine (no explanation for clinical findings) MTDD
--- NOTE | 2019-09-10 08:54 | CDI ---
Documentation Clarification Form Date: 09/08/19 From: Aylin Bautista CCS Phone: If you have a question about this query, please contact Kasie Ventura, Protection Officer at [phone] between 8am and 5pm. Admit Date: 08/31/19 Discharge Date:09/03/19 Patient Name: Zehra Montes Visit Number: [id number] ATTENTION: The Clinical Documentation Specialists (CDI) and [facility] Coding Staff appreciate your assistance in clarifying documentation. Please respond to the clarification below the line at the bottom and electronically sign. The CDI & [facility] Coding staff will review the response and follow-up if needed. Please note: Queries are made part of the Legal Health Record. If you have any questions, please contact the author of this message via ITS. Dear Dr. Zamarripa, Conflicting documentation has been found in the medical record: H&P documents: This patient is a 74-year-old white female admitted to the hospital with altered mental status and confusion, was found to have UTI with sepsis with urosepsis, started on broad-spectrum antibiotics.Waiting for urine culture. H&P, PN documents: Urinary tract infection, urosepsis History/Risk Factors: Cystitis, Metabolic encephalopathy, CHF, HTN, DM Clinical Indicators: Encephalopathy Labs: WBC 6.5 Vitals: BP 167/77, Temp 97.0, RR 16, VA 66, O2 Sat 92 Treatment: Rocephin 1 gm IVPB Q12HR In your opinion, what is the most clinically appropriate diagnosis for this patient? Sepsis Urosepsis Cystitis Other explanation of clinical findings Unable to determine (no explanation for clinical findings) MTDD
--- NOTE | 2019-09-29 13:11 | CDI ---
Date: 09.29.2019 CDS/Car Parker Name: Melany Myrick Phone: If any questions, call Kasie Ventura Research Agricultural Engineer at [phone] Patient Name: Zehra Montes Admit Date: Discharge Date: 09.03.19 ATTENTION: The [facility] Coding Staff appreciate your assistance in clarifying documentation. Please respond to the clarification below the line at the bottom and electronically sign. The [facility] Coding staff will review the response and follow-up if needed. Please note: Queries are made part of the Legal Health Record. If you have any questions, please contact the Research Agricultural Engineer. Dear Dr. Zamarripa In PN from 09.03.19 - documented under impression and plan: did have a positive UA and hx of recurrent UTI, possible mild cystitis. Underlying cystitis, adequately treated. No need for antibiotic on discharge. Please clarify.. did pt have cystitis? Thank you for your kind consideration. MTDD
== END 2019-09-03 16:34 | disposition home health service (06) ==
LOC: 5NMEDONC 16:51 → OBSVTOIN 17:51 → INTOOBSV 17:51 → UNDODISIN 09-03 16:34
PROVIDERS: ADMIT Family Medicine; ATTEND Family Medicine
DX: N39.0 Urinary tract infection, site not specified (principal); G93.41 Metabolic encephalopathy; I13.0 Hypertensive heart and chronic kidney disease with heart failure and stage 1 through stage 4 chronic kidney disease, or unspecified chronic kidney disease; I25.10 Atherosclerotic heart disease of native coronary artery without angina pectoris; I48.0 Paroxysmal atrial fibrillation; D69.6 Thrombocytopenia, unspecified; E87.1 Hypo-osmolality and hyponatremia; J45.20 Mild intermittent asthma, uncomplicated; Z03.818 Encounter for observation for suspected exposure to other biological agents ruled out; N18.3 Chronic kidney disease, stage 3 (moderate); I50.30 Unspecified diastolic (congestive) heart failure; E11.22 Type 2 diabetes mellitus with diabetic chronic kidney disease; M19.90 Unspecified osteoarthritis, unspecified site; G40.909 Epilepsy, unspecified, not intractable, without status epilepticus; R94.01 Abnormal electroencephalogram [EEG]; F39 Unspecified mood [affective] disorder; G47.00 Insomnia, unspecified; H54.62 Unqualified visual loss, left eye, normal vision right eye; E11.42 Type 2 diabetes mellitus with diabetic polyneuropathy; I95.1 Orthostatic hypotension; I49.5 Sick sinus syndrome; F32.9 Major depressive disorder, single episode, unspecified; Z79.899 Other long term (current) drug therapy; Z79.02 Long term (current) use of antithrombotics/antiplatelets; Z79.4 Long term (current) use of insulin; Z79.51 Long term (current) use of inhaled steroids; Z79.52 Long term (current) use of systemic steroids; Z95.5 Presence of coronary angioplasty implant and graft; Z86.73 Personal history of transient ischemic attack (TIA), and cerebral infarction without residual deficits; Z95.0 Presence of cardiac pacemaker; Z87.820 Personal history of traumatic brain injury; Z87.311 Personal history of (healed) other pathological fracture; Z87.440 Personal history of urinary (tract) infections; Z87.19 Personal history of other diseases of the digestive system; Z86.19 Personal history of other infectious and parasitic diseases; Z85.828 Personal history of other malignant neoplasm of skin; Z98.890 Other specified postprocedural states; Z87.81 Personal history of (healed) traumatic fracture; Z86.14 Personal history of Methicillin resistant Staphylococcus aureus infection; Z90.49 Acquired absence of other specified parts of digestive tract; Z90.710 Acquired absence of both cervix and uterus; Z98.41 Cataract extraction status, right eye; Z96.1 Presence of intraocular lens; Z91.040 Latex allergy status; Z88.2 Allergy status to sulfonamides; Z80.8 Family history of malignant neoplasm of other organs or systems; Z82.5 Family history of asthma and other chronic lower respiratory diseases; Z82.49 Family history of ischemic heart disease and other diseases of the circulatory system
CPT/HCPCS: 96361 ×2; 96365; 96366 ×2; 94640 ×2; 95816; 93005; 80053; 80177; 85025; 81001; 87086; 71046; 70450; G0378 ×4; G0379; U0003; J0360; J0696 ×3

== ENCOUNTER 2019-09-16 17:53 | Observation (INO) | payer MEDICARE ==
[2019-09-16] MEDS ORDERED: NITROGLYCERIN OINT 1 INCH/GM PACKET TOPICAL STA (18:39)
--- NOTE | 2019-09-16 18:55 | P.CRDCN ---
History of Present Illness History of present illness: This is Dr. Kidd dictating a consult on this patient The patient was interviewed and examined at the request of Dr. Cotton in the ER Patient came in with chest discomfort and abnormal ECG IMPRESSION / ASSESSMENT: Midsternal chest discomfort that started 4:30 PM When I examined her she had absolutely no chest discomfort at all ECGs on both occasions with any pain or without pain showed T-wave inversions similar to what was noted in April when she had coronary angiography and danya wed patent stent in the LAD and nonobstructive CAD elsewhere However the differential diagnosis includes cardiac memory with T-wave inversions following the paced QRS vector versus possible Takotsubo if her LV function on 2-D echo is consistent with a diagnosis Diabetes, coronary artery disease, LAD stenting, chronic kidney disease PLAN: IV heparin, beta blockers, small dose of Nitropaste, aspirin, statins Troponins every 3 hours 2 Rapid decision to proceed with coronary angiography if the bones and even borderline abnormal D-dimer This was discussed with Dr. Rodriguez, the ER physician this evening HPI The patient started experiencing chest discomfort at about 4:30 today this afternoon and called the EMS When EMS arrived they gave her sublingual nitroglycerin 4 which dropped her pressure but she continued to have chest discomfort when she arrived Her twelve-lead EKG showed sinus mechanism with a narrow QRS with deep T-wave inversions circumflex with diffuse and involves the precordial leads and inferior leads as well as the high lateral leads Review of her old ECGs show a ventricular paced rhythm and several other EKGs with is no ventricular pacing but there is prominent T-wave inversions in V3 to V6 high lateral leads and in the inferior leads similar to the ECG today However the only difference is that today's ECG is typically more prominent When I interviewed her a deep breath in and asked if she is having any chest pain She has absolutely no discomfort. She says the pain disappeared instantly I questioned her repeatedly that she is absolutely certain that she had 0 discomfort in the chest I repeated her twelve-lead EKG and it showed the same T-wave inversions diffusely across all leads I spoke to Dr. rodarte and recommended IV heparin atorvastatin and aspirin half an inch of Nitropaste and low-dose beta blockers ROS: No fever chills or rigors, no cough, phlegm or expectoration, no nausea, vomiting or diarrhea, no hematuria, dysuria, no musculoskeletal complaints, no strokes or seizures, no skin lesions. EXAMINATION: Blood pressure 145/64 mmHg pulse rate in the 60s afebrile Breath sounds are clear no rhonchi no crackles Normal heart sounds normal S1 normal S2 no murmurs or gallops. Abdomen soft nontender Extremities warm no edema REVIEW OF LABS, ECG & MEDICAL DATA Past history of a ventricular paced rhythm Currently her ECG shows intrinsic narrow QRS Labs are all pending She is a past history of LAD stenting The stent was patent in April and she had mild coronary artery disease in the other coronary arteries this April In April she had moderate LVH with preserved LV systolic function on 2-D echo ECG showed T-wave inversions in V3 to V6 lead 1 and aVL as well as in lead 2 and aVF Past history of paroxysmal atrial fibrillation not on long-term anticoagulation because of [employer] bleeding Sick sinus syndrome and AV node disease status post permanent pacemaker implantation Chronic kidney disease diabetes and dyslipidemia She was admitted to the hospital April the chest discomfort and heaviness related to her left shoulder and down her left arm Her initial ECG showed a paced rhythm with underlying atrial fibrillation The subsequent ECG showed T-wave inversions but there was less prominent than yesterday ECG from 09 April shows deep T-wave inversions in virtually all leads Past Medical History Past Medical History: Atrial Fibrillation, Asthma, Coronary Artery Disease (CAD), Cancer, Heart Failure, CVA/TIA, Diabetes Mellitus, Eye Disorder, Hype rtension, Osteoarthritis (OA), Renal Disease, Seizure Disorder Additional Past Medical History / Comment(s): Brain mass/fall with intracranial bleed/hematome-surgery at [facility], seizure after brain surgery, paroxysmal Afib, IDDM type II, neuropathy bilateral feet, orthostatic hypotension, SSS with pacemaker, L1 compression fx, CKD stage III, blind in L eye, UTIs, lower GI bleed, gastritis, gastric erosion, CDiff colitis, skin cancer with removals, past L arm fracture, past R arm fracture x2. History of Any Multi-Drug Resistant Organisms: MRSA Date of last positivie culture/infection: 01/26/19 MDRO Source:: URINE Past Surgical History: Cholecystectomy, Heart Catheterization, Heart Catheterization With Stent, Hysterectomy, Pacemaker Additional Past Surgical History / Comment(s): Evacuation of intracranial hematoma and ressection of hemorrhagic mass, pacemaker 2016, PCI with stent 06/06/18, EGD/colonoscopy, R eye corneal implant/cataract removal, EGD 06/2018, colonoscopy, skin cancer removal. Past Anesthesia/Blood Transfusion Reactions: No Reported Reaction Additional Past Anesthesia/Blood Transfusion Reaction / Comment(s): . Date of Last Stent Placement:: 06/06/18 Type of Cardiac Device: Permanent Pacemaker Device Placement Date:: 04/2016 Past Psychological History: Depression Smoking Status: Never smoker Past Alcohol Use History: None Reported Past Drug Use History: None Reported - Past Family History Mother Family Medical History: Cancer, COPD, Hypertension Additional Family Medical History / Comment(s): Mother had bone cancer. Father Family Medical History: Cancer, Hypertension Additional Family Medical History / Comment(s): Father had skin cancer. Medications and Allergies Home Medications Medication Instructions Recorded Confirmed Type Ferrous Sulfate [Iron (65 MG 325 mg PO DAILY 03/27/18 08/31/19 History Elemental)] Atorvastatin [Lipitor] 40 mg PO HS #90 tab 06/07/18 08/31/19 Rx Clopidogrel [Plavix] 75 mg PO DAILY #90 tab 06/07/18 08/31/19 Rx levETIRAcetam [Keppra] 500 mg PO Q12HR 07/21/18 08/31/19 History Nitroglycerin Sl Tabs [Nitrostat] 0.4 mg SUBLINGUAL Q5M PRN tab 07/30/18 08/31/19 Rx Cyanocobalamin [Vitamin B-12] 500 mcg PO DAILY 01/11/19 08/31/19 History Calcium Carbonate 500 mg PO DAILY 04/09/19 08/31/19 History Insulin Glargine [Lantus] 20 unit SQ HS PRN 04/09/19 08/31/19 History QUEtiapine [SEROquel] 100 mg PO HS 30 Days #30 tab 04/13/19 08/31/19 Rx Midodrine [ProAmatine] 2.5 mg PO AC-TID tab 04/14/19 08/31/19 Rx Acetaminophen Tab [Tylenol] 500 mg PO Q6HR PRN 08/31/19 08/31/19 History Albuterol Sulfate [Ventolin HFA] 2 puff INHALATION RT-Q4H PRN 08/31/19 08/31/19 History Budesonide/Formoterol Fumarate 1 puff INHALATION RT-BID 08/31/19 08/31/19 History [Symbicort 160-4.5 Mcg Inhaler] QUEtiapine [SEROquel] 25 mg PO DIRECTED 08/31/19 08/31/19 History QUEtiapine [SEROquel] 50 mg PO DIRECTED 08/31/19 08/31/19 History Sodium Chloride 5% Ophth Oint 1 drop BOTH EYES DAILY 08/31/19 08/31/19 History [Amanda 128] prednisoLONE [prednisoLONE Oral 1 drop LEFT EYE DAILY 08/31/19 08/31/19 History Soln] hydrALAZINE HCL [Apresoline] 25 mg PO BID #60 tab 09/03/19 Rx Allergies Allergy/AdvReac Type Severity Reaction Status Date / Time Latex, Natural Rubber Allergy Itching Verified 09/16/19 18:14 sulfamethoxazole Allergy Rash/Hives Verified 09/16/19 18:14 [From Bactrim] trimethoprim [From Bactrim] Allergy Rash/Hives Verified 09/16/19 18:14 Physical Exam Vitals: Vital Signs Temp Pulse Resp BP Pulse Ox 09/16/19 18:12 98 F 61 16 145/64 91 L Intake and Output 09/16/19 09/16/19 09/16/19 06:59 14:59 22:59 Other: Weight 70.307 kg Results Intake and Output 09/16/19 09/16/19 09/16/19 06:59 14:59 22:59 Other: Weight 70.307 kg Patient Weight 09/17/19 06:59 Weight 70.307 kg
--- NOTE | 2019-09-16 18:59 | XR ---
EXAMINATION TYPE: XR chest 2V DATE OF EXAM: 09/16/2019 COMPARISON: 08/31/2019 HISTORY: Shortness of breath TECHNIQUE: Frontal and lateral views of the chest are obtained. FINDINGS: Scattered senescent parenchymal changes noted. Hyperinflation compatible with COPD. No evidence for infiltrate. No evidence for atelectasis. Heart size is stable. Mediastinal structures are stable and grossly unremarkable. No evidence for hilar prominence. Degenerative changes dorsal spine. IMPRESSION: 1. No evidence for acute pulmonary disease.
[2019-09-16 19:01] LABS: Basophils # (A) 0.1 k/uL (0-0.2); Basophils % (A) 1 %; Eosinophils # (A) 0.1 k/uL (0-0.7); Eosinophils % (A) 2 %; HCT 46.7 % (34.0-46.0); HGB 14.4 gm/dL (11.4-16.0); Lymphocytes # (A) 1.1 k/uL (1.0-4.8); Lymphocytes % (A) 21 %; MCH 26.9 pg (25.0-35.0); MCHC 30.8 g/dL (31.0-37.0); MCV 87.4 fL (80.0-100.0); Mean Platelet Volume 7.9; Monocytes # (A) 0.4 k/uL (0-1.0); Monocytes % (A) 8 %; Neutrophils # (A) 3.7 k/uL (1.3-7.7); Neutrophils % (A) 67 %; Platelet Count 136 k/uL (150-450); RBC 5.34 m/uL (3.80-5.40); RDW 13.4 % (11.5-15.5); WBC 5.5 k/uL (3.8-10.6)
[2019-09-16 19:09] LABS: Albumin 3.7 g/dL (3.5-5.0); Calcium 9.2 mg/dL (8.4-10.2); Magnesium 1.7 mg/dL (1.6-2.3); Potassium 4.3 mmol/L (3.5-5.1); Total Bilirubin 0.6 mg/dL (0.2-1.3); Total Protein 5.6 g/dL (6.3-8.2)
[2019-09-16 19:28] LABS: D-Dimer 0.52 mg/L FEU (<0.60); Partial Thromboplastin Time 23.6 sec (22.0-30.0); Prothrombin Time 10.7 sec (9.0-12.0)
[2019-09-16 20:03] LABS: Appearance,Urine Cloudy (Clear); Bacteria,Urine Occasional /hpf; Bilirubin,Urine Negative (Negative); Blood,Urine Negative (Negative); Color,Urine Yellow; Glucose,Urine (UA) Trace (Negative); Hyaline Casts,Urine 22 /lpf (0-2); Ketones,Urine Negative (Negative); Leukocyte Esterase,Urine Small (Negative); Mucus,Urine Moderate /hpf; Nitrite,Urine Negative (Negative); PH, Urine 5.5 (5.0-8.0); Protein,Urine 1+ (Negative); RBC,Urine 1 /hpf (0-5); Specific Gravity,Urine 1.027 (1.001-1.035); Squamous Epithelial Cell,Urine 9 /hpf (0-4); Urobilinogen,Urine <2.0 mg/dL (<2.0); WBC,Urine 6 /hpf (0-5)
[2019-09-16] MEDS ORDERED: cefTRIAXone IN SWFI 1,000 MG/10 ML SYRINGE IVP STA (20:12)
[2019-09-16] MEDS ORDERED: HEPARIN SODIUM,PORCINE 5,000 UNIT/ML 1 ML VIAL IV ONE (20:13)
[2019-09-16] MEDS ORDERED: HEPARIN SODIUM,PORCINE 5,000 UNIT/ML 1 ML VIAL IV PRN (20:13)
[2019-09-16] MEDS ORDERED: HEPARIN SOD,PORK IN 0.45% NACL 25,000 UNIT in 0.45% NACL 1 250ML.BAG IV SCH (20:15)
[2019-09-16] MEDS ORDERED: NALOXONE 0.4 MG/ML 1 ML VIAL IV PRN (20:23)
--- NOTE | 2019-09-16 20:23 | ED ---
Chest Pain HPI - General Chief Complaint: Chest Pain Stated Complaint: Chest Pain Time Seen by Provider: 09/16/19 18:15 Source: patient Mode of arrival: EMS Limitations: no limitations - History of Present Illness Initial Comments: Patient is a 74-year-old female with past medical history of A. fib, heart failure, hypertension who presents to the emergency department with reported chest pain. Patient states pain started at 4:30 PM this afternoon. Describes it as a pressure sensation in her chest. She does have nitro at home and so took one. Denies that it helped her symptoms. She called EMS who provided her with aspirin and 2 additional nitro. She arrives and states her pain is 3 out of 10 to me. Patient has a history of pacemaker but denies coronary disease. Remainder of the HPI is limited as the patient is a poor historian. She reports to being on a blood thinner. Review of medical record demonstrate she is on Plavix. Denies history of DVT or PE. No shortness of breath. Denies ripping or tearing sensation to her back. Denies fevers or chills. No hemoptysis. No leg swelling. No other alleviating, precipitating or modifying factors - Related Data Home Medications Medication Instructions Recorded Confirmed Ferrous Sulfate [Iron (65 MG 325 mg PO DAILY 03/27/18 09/16/19 Elemental)] levETIRAcetam [Keppra] 500 mg PO Q12HR 07/21/18 09/16/19 Cyanocobalamin [Vitamin B-12] 500 mcg PO DAILY 01/11/19 09/16/19 Calcium Carbonate 500 mg PO DAILY 04/09/19 09/16/19 Insulin Glargine [Lantus] 20 unit SQ HS PRN 04/09/19 09/16/19 Acetaminophen Tab [Tylenol] 500 mg PO Q6HR PRN 08/31/19 09/16/19 Albuterol Sulfate [Ventolin HFA] 2 puff INHALATION RT-Q4H PRN 08/31/19 09/16/19 Budesonide/Formoterol Fumarate 1 puff INHALATION RT-BID 08/31/19 09/16/19 [Symbicort 160-4.5 Mcg Inhaler] Ciprofloxacin HCl 500 mg PO BID 09/16/19 09/16/19 Nystatin 100,000 Unit/gm Powd 1 applic TOPICAL BID 09/16/19 09/16/19 [Mycostatin Powder] hydrALAZINE HCL [Apresoline] 25 mg PO BID@0800,199909/16/19 09/16/19 prednisoLONE ACETATE 1% OPHTH 1 drops RIGHT EYE DAILY 09/16/19 09/16/19 [Pred Forte 1%] Previous Rx's Medication Instructions Recorded Atorvastatin [Lipitor] 40 mg PO HS #90 tab 06/07/18 Clopidogrel [Plavix] 75 mg PO DAILY #90 tab 06/07/18 Nitroglycerin Sl Tabs [Nitrostat] 0.4 mg SUBLINGUAL Q5M PRN tab 07/30/18 QUEtiapine [SEROquel] 100 mg PO HS 30 Days #30 tab 04/13/19 Midodrine [ProAmatine] 2.5 mg PO AC-TID tab 04/14/19 Allergies Allergy/AdvReac Type Severity Reaction Status Date / Time Latex, Natural Rubber Allergy Itching Verified 09/16/19 18:14 sulfamethoxazole Allergy Rash/Hives Verified 09/16/19 18:14 [From Bactrim] trimethoprim [From Bactrim] Allergy Rash/Hives Verified 09/16/19 18:14 Review of Systems ROS Statement: Those systems with pertinent positive or pertinent negative responses have been documented in the HPI. ROS Other: All systems not noted in ROS Statement are negative. EKG Findings - EKG Comments: EKG Findings:: EKG completed at 1811 demonstrates junctional rhythm with a rate of 60. QRS 100. QTC 540. Inverted T waves with ST depression in 2, 3, aVF as well as V2 through V6. EKG completed at 1834 demonstrates rhythm the rate of 60. QRS 104. QTC of 548. Patient continues to have significant inverted T waves with ST depression in the inferior, anterior lateral leads. Past Medical History Past Medical History: Atrial Fibrillation, Asthma, Coronary Artery Disease (CAD), Cancer, Heart Failure, CVA/TIA, Diabetes Mellitus, Eye Disorder, Hypertension, Osteoarthritis (OA), Renal Disease, Seizure Disorder Additional Past Medical History / Comment(s): Brain mass/fall with intracranial bleed/hematome-surgery at [facility], seizure after brain surgery, paroxysmal Afib, IDDM type II, neuropathy bilateral feet, orthostatic hypotension, SSS with pacemaker, L1 compression fx, CKD stage III, blind in L eye, UTIs, lower GI bleed, gastritis, gastric erosion, CDiff colitis, skin cancer with removals, past L arm fracture, past R arm fracture x2. History of Any Multi-Drug Resistant Organisms: MRSA Date of last positivie culture/infection: 01/26/19 MDRO Source:: URINE Past Surgical History: Cholecystectomy, Heart Catheterization, Heart Catheterization With Stent, Hysterectomy, Pacemaker Additional Past Surgical History / Comment(s): Evacuation of intracranial hematoma and ressection of hemorrhagic mass, pacemaker 2016, PCI with stent 06/06/18, EGD/colonoscopy, R eye corneal implant/cataract removal, EGD 06/2018, colonoscopy, skin cancer removal. Past Anesthesia/Blood Transfusion Reactions: No Reported Reaction Additional Past Anesthesia/Blood Transfusion Reaction / Comment(s): . Date of Last Stent Placement:: 06/06/18 Type of Cardiac Device: Permanent Pacemaker Device Placement Date:: 04/2016 Past Psychological History: Depression Smoking Status: Never smoker Past Alcohol Use History: None Reported Past Drug Use History: None Reported - Past Family History Mother Family Medical History: Cancer, COPD, Hypertension Additional Family Medical History / Comment(s): Mother had bone cancer. Father Family Medical History: Cancer, Hypertension Additional Family Medical History / Comment(s): Father had skin cancer. General Exam Limitations: no limitations General appearance: alert, in no apparent distress Head exam: Present: atraumatic, normocephalic, normal inspection Eye exam: Present: normal appearance, PERRL, EOMI. Absent: scleral icterus, conjunctival injection, periorbital swelling ENT exam: Present: normal exam, mucous membranes moist Neck exam: Present: normal inspection. Absent: tenderness, meningismus, lymphadenopathy Respiratory exam: Present: normal lung sounds bilaterally. Absent: respiratory distress, wheezes, rales, rhonchi, stridor Cardiovascular Exam: Present: regular rate, normal rhythm, normal heart sounds. Absent: systolic murmur, diastolic murmur, rubs, gallop, clicks GI/Abdominal exam: Present: soft, normal bowel sounds. Absent: distended, tenderness, guarding, rebound, rigid Extremities exam: Present: normal inspection, full ROM, normal capillary refill. Absent: tenderness, pedal edema, joint swelling, calf tenderness Back exam: Present: normal inspection Neurological exam: Present: alert, oriented X3, CN II-XII intact Psychiatric exam: Present: normal mood, flat affect Skin exam: Present: warm, dry, intact, normal color. Absent: rash Course Vital Signs 09/16/19 09/16/19 09/16/19 18:12 20:25 21:12 Temperature 98 F 98 F Pulse Rate 61 60 Respiratory 16 18 16 Rate Blood Pressure 145/64 179/71 Blood Pressure 173/75 [Left Arm] O2 Sat by Pulse 91 L 96 97 Oximetry Chest Pain MDM - MDM Upon arrival the patient is placed in room 13. A thorough history and physical exam was performed. Peripheral IV was established. Patient up to continuous pulse ox and cardiac monitoring. 12-lead EKG is performed which demonstrates significant T-wave inversions and ST depression in the inferior and anterior lateral leads. Because of this I did discuss the case with Dr. Kidd as he is in the emergency department. He is provided his recommendations. Laboratory studies were conducted and the patient went for a chest x-ray. Troponin is negative. BNP 4290. Urinalysis demonstrates occasional bacteria however it is not a clean catch. Patient is on Cipro for UTI currently. Creatinine is 1.4. A repeat EKG is performed which continues to demonstrate similar ST depression. Patient denied any contraindications to heparinization. I did see and her previous record that she has a history of a fall with intracranial hemorrhage. Because this I did send the patient for CT of her brain before heparinizing her. Patient was given a dose of Rocephin because of her bacteriuria. Patient will be admitted to the hospital nor to trend her troponins. Patient did agree to this. She is currently awaiting transport to the floor Critical Care Time Critical Care Time: Yes Critical Care Time: 32 minutes Disposition Clinical Impression: Chest pain, ACS (acute coronary syndrome), UTI (urinary tract infection) Disposition: ADMITTED IP TO THIS HOSP Condition: Stable Is patient prescribed a controlled substance at d/c from ED?: No Decision to Admit Reason: Admit from EC Decision Date: 09/16/19 Decision Time: 20:22
[2019-09-16] MEDS ORDERED: INSULIN DETEMIR (LEVEMIR) 100 UNIT/ML SYR SQ PRN (20:41)
[2019-09-16] MEDS ORDERED: ALBUTEROL NEBULIZED 2.5 MG/3 ML INHALATION PRN (20:41)
[2019-09-16] MEDS ORDERED: ACETAMINOPHEN TAB 500 MG TAB PO PRN (20:41)
[2019-09-16] MEDS ORDERED: ATORVASTATIN 40 MG TAB PO SCH (21:00)
[2019-09-16] MEDS ORDERED: QUEtiapine 100 MG TAB PO SCH (21:00)
--- NOTE | 2019-09-16 21:03 | CT ---
EXAMINATION TYPE: CT brain wo con DATE OF EXAM: 09/16/2019 COMPARISON: 08/31/2019 HISTORY: History of hemorrhage. CT DLP: 1099.[address] of the brain was performed. The ventricles, basal cisterns and sulci overlying the cerebral convexities demonstrate mild enlargem ent. Large area of encephalomalacia right occipital parietal region. There is no evidence for intracranial hemorrhage or sulcal effacement. There is decreased attenuation about the periventricular white matter and deep white matter of both c erebral hemispheres, compatible with chronic small vessel ischemia. Differential diagnosis does inclu de demyelination. No mass effects are seen.No midline shift. Posterior right parietal occipital craniotomy. If symptoms persist consider MRI. IMPRESSION: 1. Age related atrophic and chronic small vessel ischemic change without acute intracranial process s een at this time.
[2019-09-16 22:26] LABS: Glucose,Whole Blood 156 mg/dL (75-99)
[2019-09-16] MEDS: levETIRAcetam 500 MG TAB PO SCH (22:31)
[2019-09-17 05:38] LABS: Basophils % (A) 0 %; Eosinophils # (A) 0.2 k/uL (0-0.7); Eosinophils % (A) 3 %; HCT 42.5 % (34.0-46.0); HGB 13.6 gm/dL (11.4-16.0); Lymphocytes # (A) 1.7 k/uL (1.0-4.8); Lymphocytes % (A) 32 %; MCH 28.5 pg (25.0-35.0); MCHC 32.1 g/dL (31.0-37.0); MCV 88.9 fL (80.0-100.0); Mean Platelet Volume 7.9; Monocytes # (A) 0.5 k/uL (0-1.0); Monocytes % (A) 9 %; Neutrophils # (A) 2.8 k/uL (1.3-7.7); Neutrophils % (A) 53 %; Platelet Count 121 k/uL (150-450); RBC 4.78 m/uL (3.80-5.40); RDW 13.4 % (11.5-15.5); WBC 5.3 k/uL (3.8-10.6)
[2019-09-17 05:49] LABS: Prothrombin Time 10.7 sec (9.0-12.0)
[2019-09-17 05:56] LABS: Calcium 8.8 mg/dL (8.4-10.2); Potassium 3.8 mmol/L (3.5-5.1)
[2019-09-17] MEDS ORDERED: MIDODRINE 5 MG TAB PO SCH (07:30)
[2019-09-17 07:55] VITALS: RESP 18
[2019-09-17 07:56] LABS: Glucose,Whole Blood 163 mg/dL (75-99)
[2019-09-17] MEDS ORDERED: SYMBICORT 160-4.5 MCG INHALER INHALATION SCH (08:00)
[2019-09-17] MEDS ORDERED: hydrALAZINE HCL 25 MG TAB PO SCH (08:00)
[2019-09-17] MEDS ORDERED: CLOPIDOGREL 75 MG TAB PO SCH (09:00)
[2019-09-17] MEDS ORDERED: prednisoLONE ACETATE 1% OPHTH DROPS 5 ML BTL RIGHT EYE SCH (09:00)
--- NOTE | 2019-09-17 09:02 | P.PCN ---
Preoperative Diagnosis: Patient underwent EP procedure under conscious sedation/moderate sedation, monitoring of the level of consciousness and physiologic parameters including but not limited to vital signs and oxygenation. Patient tolerated the procedure well without any acute complications. Start time: 805 Stop time: 855
[2019-09-17] MEDS: levETIRAcetam 500 MG TAB PO SCH (09:29)
--- NOTE | 2019-09-17 10:09 | P.PN ---
Subjective HISTORY OF PRESENTING ILLNESS This is a pleasant 74-year-old female past medical history significant for artery disease status post PCI to the LAD June 2018, intracranial bleed s/p brain surgery, paroxysmal atrial fibrillation not on assisted anti-coagulation, abnormal EKG chronically, hypertension, dyslipidemia, sick sinus syndrome s/p permanent pacemaker implantations and chronic dysautonomia. She follows in the office with Dr. Hawk. She is seen and examined laying flat resting comfortably in bed in no acute distress. She denies any further symptoms of chest pain. She denies shortness of breath, dizziness, palpitations, nausea, vomiting or diaphoresis. Blood pressure 152/71 heart rate 60 afebrile and maintaining oxygen saturation on room air. Laboratory data reviewed, cardiac enzymes negative x3, WBC 5.3, hgb 13.6, plt 121, sodium 137, potassium 3.8, creatinine 1.51 with GFR 34, d-dimer 0.34. PHYSICAL EXAMINATION CONSTITUTIONAL: No apparent distress. HEENT: Head is normocephalic. Pupils are equal, round. Sclerae anicteric. Mucous membranes of the mouth are moist. No JVD. No carotid bruit. CHEST EXAMINATION: Lungs are clear to auscultation. No chest wall tenderness is noted on palpation or with deep breathing. HEART EXAMINATION: Regular rate and rhythm. S1, S2 heard. No murmurs, gallops or rub. EXTREMITIES: 2+ peripheral pulses, trace left lower extremity non-pitting edema and no calf tenderness. ASSESSMENT Chest pain, atypical. An acute coronary event has been ruled out. Thrombocytopenia Chronic kidney disease Diabetes mellitus Coronary artery disease status post PCI to the LAD June 2018 with recent cardiac catheterization in April 2019 revealing patent stent with no significant obstructive disease Paroxysmal atrial fibrillation not on assisted anticoagulation secondary to intracranial bleed in the past Chronic dysautonomia Dyslipidemia Sick sinus syndrome status post permanent pacemaker implantation Hypertension PLAN Discontinue IV heparin. Obtain 2-D echocardiogram and Doppler study to assess cardiac structure and function. If echocardiogram reveals normal LV function she is stable from a cardiac perspective. Follow-up in the office with Dr. Hawk. Nurse Practitioner note has been reviewed, I agree with a documented findings and plan of care. Patient was seen and examined. Objective - Vital Signs Vital signs: Vital Signs Temp 97.5 F L 09/17/19 07:52 Pulse 60 07/16/20 08:29 Resp 18 09/17/19 08:29 BP 152/71 09/17/19 07:52 Pulse Ox 94 L 09/17/19 07:52 Intake & Output 09/16/19 09/17/19 09/17/19 18:59 06:59 18:59 Weight 70.307 kg 70.307 kg Other: Voiding Method Toilet Toilet # Voids 1 # Bowel Movements 1 - Labs CBC & Chem 7: 09/17/19 05:07 09/17/19 05:07 Labs: Abnormal Lab Results - Last 24 Hours (Table) 09/16/19 09/16/19 09/16/19 Range/Units 18:40 18:40 19:41 Hct 46.7 H (34.0-46.0) % MCHC 30.8 L (31.0-37.0) g/dL Plt Count 136 L (150-450) k/uL BUN 20 H (7-17) mg/dL Creatinine 1.44 H (0.52-1.04) mg/dL Glucose 208 H (74-99) mg/dL POC Glucose (mg/dL) (75-99) mg/dL Total Protein 5.6 L (6.3-8.2) g/dL Urine Appearance Cloudy H (Clear) Urine Protein 1+ H (Negative) Urine Glucose (UA) Trace H (Negative) Ur Leukocyte Esterase Small H (Negative) Urine WBC 6 H (0-5) /hpf Ur Squamous Epith Cells 9 H (0-4) /hpf Urine Bacteria Occasional H (None) /hpf Hyaline Casts 22 H (0-2) /lpf Urine Mucus Moderate H (None) /hpf 09/16/19 09/17/19 09/17/19 Range/Units 22:24 05:07 05:07 Hct (34.0-46.0) % MCHC (31.0-37.0) g/dL Plt Count 121 L (150-450) k/uL BUN 21 H (7-17) mg/dL Creatinine 1.51 H (0.52-1.04) mg/dL Glucose 190 H (74-99) mg/dL POC Glucose (mg/dL) 156 H (75-99) mg/dL Total Protein (6.3-8.2) g/dL Urine Appearance (Clear) Urine Protein (Negative) Urine Glucose (UA) (Negative) Ur Leukocyte Esterase (Negative) Urine WBC (0-5) /hpf Ur Squamous Epith Cells (0-4) /hpf Urine Bacteria (None) /hpf Hyaline Casts (0-2) /lpf Urine Mucus (None) /hpf 09/17/19 Range/Units 07:49 Hct (34.0-46.0) % MCHC (31.0-37.0) g/dL Plt Count (150-450) k/uL BUN (7-17) mg/dL Creatinine (0.52-1.04) mg/dL Glucose (74-99) mg/dL POC Glucose (mg/dL) 163 H (75-99) mg/dL Total Protein (6.3-8.2) g/dL Urine Appearance (Clear) Urine Protein (Negative) Urine Glucose (UA) (Negative) Ur Leukocyte Esterase (Negative) Urine WBC (0-5) /hpf Ur Squamous Epith Cells (0-4) /hpf Urine Bacteria (None) /hpf Hyaline Casts (0-2) /lpf Urine Mucus (None) /hpf
[2019-09-17 11:33] LABS: Glucose,Whole Blood 169 mg/dL (75-99)
--- NOTE | 2019-09-17 11:49 | ECHOF ---
Referral Reason:cp MEASUREMENTS -------- HEIGHT: 165.1 cm WEIGHT: 70.3 kg BP: 152/71 RVIDd: 2.7 cm (< 3.3) IVSd: 1.4 cm (0.6 - 1.1) LVIDd: 4.0 cm (3.9 - 5.3) LVPWd: 1.4 cm (0.6 - 1.1) IVSs: 1.8 cm LVIDs: 2.9 cm LVPWs: 1.8 cm LA Diam: 3.4 cm (2.7 - 3.8) LAESV Index (A-L): 28.53 ml/m Ao Diam: 3.1 cm (2.0 - 3.7) AV Cusp: 2.0 cm (1.5 - 2.6) MV EXCURSION: 22.245 mm (> 18.000) MV EF SLOPE: 30 mm/s (70 - 150) EPSS: 0.7 cm MV E Declan: 0.71 m/s MV DecT: 447 ms MV A Declan: 1.18 m/s MV E/A Ratio: 0.60 AR PHT: 862 ms FINDINGS -------- Pacerwire seen in RV and RA. This was a technically adequate study. The left ventricular size is normal. There is moderate concentric left ventricular hypertrophy. O verall left ventricular systolic function is normal with, an EF between 55 - 60 %. The right ventricle is normal in size. Normal LA size by volume 22+/-6 ml/m2. The right atrial size is normal. Interatrial and interventricular septum intact. There is mild aortic valve sclerosis. There is mild aortic regurgitation. Moderate mitral annular calcification present. Mild mitral regurgitation is present. The tricuspid valve appears structurally normal. Mild tricuspid regurgitation present. The pulmonic valve was not well visualized. There is no pulmonic regurgitation present. The aortic root size is normal. Normal inferior vena cava with normal inspiratory collapse consistent with estimated right atrial pre ssure of 5 mmHg. There is no pericardial effusion. CONCLUSIONS -------- 1. Pacerwire seen in RV and RA. 2. There is moderate concentric left ventricular hypertrophy. 3. Overall left ventricular systolic function is normal with, an EF between 55 - 60 %. 4. Normal LA size by volume 22+/-6 ml/m2. 5. There is mild aortic valve sclerosis. 6. There is mild aortic regurgitation. 7. Moderate mitral annular calcification present. 8. Mild mitral regurgitation is present. 9. Mild tricuspid regurgitation present. 10. There is no pericardial effusion. OUTSIDE SALES REPRESENTATIVE: Stella Overton RDCS
[2019-09-17 15:05] VITALS: BP 137/77; PULSE 63; TEMP 97.9
--- NOTE | 2019-09-17 15:23 | HP ---
HISTORY AND PHYSICAL This patient is a 74-year-old female with a past medical history of atrial fibrillation, heart failure and hypertension who was really recently admitted with urosepsis, metabolic encephalopathy along with pressure in her chest. She took aspirin and 2 nitros. She still had pain in the ER, 05/11. History of pacemaker. Dr. Kidd saw her. Derrick Operator saw in the ER last night and said it was possibly her pacemaker blood thinner. She was admitted for cardiac monitoring. HOME MEDICATIONS: Ferrous sulfate, Keppra 500 b.i.d., Lantus 20 units daily, Ventolin HFA 2 puffs p.r.n., Symbicort 160/4.5 two puffs b.i.d., nystatin powder topically b.i.d., hydralazine 25 b.i.d., prednisolone acetate 1% one drop daily. ALLERGIES: RUBBER, BACTRIM. REVIEW OF SYSTEMS: Fourteen-point review of systems negative except for mentioned in HPI. EKG showed junctional rhythm 60, inverted ST waves, ST depression II, III, aVF. First set of troponins was negative. PAST MEDICAL HISTORY: History of atrial fibrillation, coronary artery disease, asthma, pacemaker, diabetes mellitus, hypertension, osteoarthritis, renal disease, seizure disorder. She has had brain surgery in the past. Orthostatic hypotension, blindness, history of GI bleeding, cholecystectomy, heart catheterization with stent, hysterectomy, pacemaker, evacuation of intracranial hematoma, resection of hemorrhagic mass with a pacemaker in April 2016. PHYSICAL EXAMINATION: Temperature 98, pulse 60-61, respiratory rate 16-18, blood pressure 145 to 179 over 64 to 71, oxygen 91 to 96. Well-developed, well-nourished white female in no acute distress. Cardiovascular: S1, S2. Hematology: Negative Homans. Psych: Fair mood and affect. Neurologic: Cranial nerves are intact. ASSESSMENT: 1. Atypical chest pain. 2. Recent urinary tract infection, on Cipro. 3. Abnormal EKG. Rule out myocardial infarction. Cardiology is consulted. Prognosis guarded. Cardiac workup will be done. MMJULYL / CARIE: [id number] /
--- NOTE | 2019-09-18 16:23 | P.DS ---
Providers Date of admission: 09/16/19 20:23 Expected date of discharge: 09/17/19 Attending physician: Vikram Zamarripa Consults: 09/16/19 20:25 Consult Physician Urgent Consulting Provider: [facility] Consult Reason/Comments: acute cp, possible acs, abn ekg Do you want consulting provider notified?: Already Contacted [facility] Course: Final DIagnoses: Atypical chest pain, abnormal EKG, acute coronary event ruled out as per cardiology. CAD, history of stent, recent cardiac cath. in 2019 reporting no significant obstructive disease with patent stent Hypertension Sick sinus syndrome status post permanent pacemaker implantation Diabetes mellitus Chronic kidney disease, stage III Paroxysmal atrial fibrillation not on correction anticoagulation secondary to history of intracranial bleed Recurrent UTI on [facility] Hospital course: This is a 74-year-old female admitted with chest pain and multiple other medical issues. Evaluated by cardiology. 2-D echo performed, reported normal LV function. Cleared by cardiology for discharge. Patient is being discharged home in a stable condition with guarded prognosis. The impression and plan of care has been dictated as directed. : I performed a history and examination of this patient, discussed the same with the dictator. I agree with the dictator's note ,documented as a scribe. Any additional findings or plans will be noted. Patient Condition at Discharge: Stable Plan - Discharge Summary Discharge Rx Participant: No New Discharge Prescriptions: Continue Ferrous Sulfate [Iron (65 MG Elemental)] 325 mg PO DAILY Atorvastatin [Lipitor] 40 mg PO HS #90 tab Clopidogrel [Plavix] 75 mg PO DAILY #90 tab levETIRAcetam [Keppra] 500 mg PO Q12HR Nitroglycerin Sl Tabs [Nitrostat] 0.4 mg SUBLINGUAL Q5M PRN tab PRN Reason: Chest Pain Cyanocobalamin [Vitamin B-12] 500 mcg PO DAILY Calcium Carbonate 500 mg PO DAILY Insulin Glargine [Lantus] 20 unit SQ HS PRN PRN Reason: BLOOD SUGAR ABOVE 150 QUEtiapine [SEROquel] 100 mg PO HS 30 Days #30 tab Midodrine [ProAmatine] 2.5 mg PO AC-TID tab Albuterol Sulfate [Ventolin HFA] 2 puff INHALATION RT-Q4H PRN PRN Reason: Shortness Of Breath Budesonide/Formoterol Fumarate [Symbicort 160-4.5 Mcg Inhaler] 1 puff INHALATION RT-BID Acetaminophen Tab [Tylenol] 500 mg PO Q6HR PRN PRN Reason: Pain hydrALAZINE HCL [Apresoline] 25 mg PO BID@799,1999 Ciprofloxacin HCl 500 mg PO BID Nystatin 100,000 Unit/gm Powd [Mycostatin Powder] 1 applic TOPICAL BID prednisoLONE ACETATE 1% OPHTH [Pred Forte 1%] 1 drops RIGHT EYE DAILY Discharge Medication List Ferrous Sulfate [Iron (65 MG Elemental)] 325 mg PO DAILY 03/27/18 [History] Atorvastatin [Lipitor] 40 mg PO HS #90 tab 06/07/18 [Rx] Clopidogrel [Plavix] 75 mg PO DAILY #90 tab 06/07/18 [Rx] levETIRAcetam [Keppra] 500 mg PO Q12HR 07/21/18 [History] Nitroglycerin Sl Tabs [Nitrostat] 0.4 mg SUBLINGUAL Q5M PRN tab 07/30/18 [Rx] Cyanocobalamin [Vitamin B-12] 500 mcg PO DAILY 01/11/19 [History] Calcium Carbonate 500 mg PO DAILY 04/09/19 [History] Insulin Glargine [Lantus] 20 unit SQ HS PRN 04/09/19 [History] QUEtiapine [SEROquel] 100 mg PO HS 30 Days #30 tab 04/13/19 [Rx] Midodrine [ProAmatine] 2.5 mg PO AC-TID tab 04/14/19 [Rx] Acetaminophen Tab [Tylenol] 500 mg PO Q6HR PRN 08/31/19 [History] Albuterol Sulfate [Ventolin HFA] 2 puff INHALATION RT-Q4H PRN 08/31/19 [History] Budesonide/Formoterol Fumarate [Symbicort 160-4.5 Mcg Inhaler] 1 puff INHALATION RT-BID 08/31/19 [History] Ciprofloxacin HCl 500 mg PO BID 09/16/19 [History] Nystatin 100,000 Unit/gm Powd [Mycostatin Powder] 1 applic TOPICAL BID 09/16/19 [History] hydrALAZINE HCL [Apresoline] 25 mg PO BID@799,199909/16/19 [History] prednisoLONE ACETATE 1% OPHTH [Pred Forte 1%] 1 drops RIGHT EYE DAILY 09/16/19 [History] Follow up Appointment(s)/Referral(s): Jaiden Hawk MD [STAFF PHYSICIAN] - 2 Weeks (call to make an appointment) Vikram Zamarripa MD [Primary Care Provider] - 3 Days (call to make an appointment) Patient Instructions/Handouts: Chest Pain (GEN) Discharge Disposition: HOME SELF-CARE
== END 2019-09-17 17:59 | disposition home or self-care (01) ==
LOC: EC 17:53 → 3NCARDOBS 20:23
PROVIDERS: ADMIT Family Medicine; ATTEND Family Medicine
DX: I24.9 Acute ischemic heart disease, unspecified (principal); N39.0 Urinary tract infection, site not specified; I25.10 Atherosclerotic heart disease of native coronary artery without angina pectoris; I13.0 Hypertensive heart and chronic kidney disease with heart failure and stage 1 through stage 4 chronic kidney disease, or unspecified chronic kidney disease; E11.22 Type 2 diabetes mellitus with diabetic chronic kidney disease; N18.3 Chronic kidney disease, stage 3 (moderate); I50.9 Heart failure, unspecified; E11.42 Type 2 diabetes mellitus with diabetic polyneuropathy; G40.89 Other seizures; I48.0 Paroxysmal atrial fibrillation; J45.909 Unspecified asthma, uncomplicated; E11.9 Type 2 diabetes mellitus without complications; Z86.73 Personal history of transient ischemic attack (TIA), and cerebral infarction without residual deficits; M19.90 Unspecified osteoarthritis, unspecified site; I95.1 Orthostatic hypotension; D69.6 Thrombocytopenia, unspecified; E78.5 Hyperlipidemia, unspecified; G90.1 Familial dysautonomia [Riley-Day]; I49.5 Sick sinus syndrome; F32.9 Major depressive disorder, single episode, unspecified; H54.62 Unqualified visual loss, left eye, normal vision right eye; Z87.440 Personal history of urinary (tract) infections; Z86.19 Personal history of other infectious and parasitic diseases; Z87.19 Personal history of other diseases of the digestive system; Z87.81 Personal history of (healed) traumatic fracture; Z86.14 Personal history of Methicillin resistant Staphylococcus aureus infection; Z85.828 Personal history of other malignant neoplasm of skin; Z90.49 Acquired absence of other specified parts of digestive tract; Z95.5 Presence of coronary angioplasty implant and graft; Z90.710 Acquired absence of both cervix and uterus; Z95.0 Presence of cardiac pacemaker; Z98.890 Other specified postprocedural states; Z94.7 Corneal transplant status; Z98.49 Cataract extraction status, unspecified eye; Z80.8 Family history of malignant neoplasm of other organs or systems; Z82.5 Family history of asthma and other chronic lower respiratory diseases; Z82.49 Family history of ischemic heart disease and other diseases of the circulatory system; Z79.02 Long term (current) use of antithrombotics/antiplatelets; Z79.4 Long term (current) use of insulin; Z79.51 Long term (current) use of inhaled steroids; Z79.899 Other long term (current) drug therapy; Z88.2 Allergy status to sulfonamides; Z91.040 Latex allergy status
CPT/HCPCS: 96374; 96375; 99285; 36415; 93005; 93306; 85379; 83880; 80053; 80048; 83735; 84484 ×2; 85025 ×2; 85610 ×2; 85730 ×2; 81001; 71046; 70450; G0378 ×2; U0003; J1644 ×2; J0696

== ENCOUNTER 2019-10-13 18:12 | Observation (INO) | payer MEDICARE ==
--- NOTE | 2019-10-13 18:21 | ED ---
Chest Pain HPI - General Stated Complaint: chest pain Time Seen by Provider: 10/13/19 18:19 Source: RN notes reviewed, old records reviewed - History of Present Illness Initial Comments: This is a 74-year-old female DF for evaluation chest pain patient to be admitted for chest pain observation. Patient has no recent sick contacts or travel history, is having persistent chest pain. Mild nausea no vomiting. Patient is having persistent chest pain believes it may be something wrong with her pacemaker patient is a paced rhythm currently MD Complaint: chest pain -: hour(s) Onset: during rest Pain Location: substernal, left chest Pain Radiation: none Severity: moderate Severity scale (1-10): 4 Quality: heaviness Consistency: constant Improves With: nothing Worsens With: nothing Anginal Symptoms: dyspnea Other Symptoms: palpitations Treatments Prior to Arrival: none - Related Data Home Medications Medication Instructions Recorded Confirmed Ferrous Sulfate [Iron (65 MG 325 mg PO DAILY 03/27/18 10/13/19 Elemental)] levETIRAcetam [Keppra] 500 mg PO Q12HR 07/21/18 10/13/19 Cyanocobalamin [Vitamin B-12] 500 mcg PO DAILY 01/11/19 10/13/19 Calcium Carbonate 500 mg PO DAILY 04/09/19 10/13/19 Acetaminophen Tab [Tylenol] 500 mg PO Q6HR PRN 08/31/19 10/13/19 Albuterol Sulfate [Ventolin HFA] 2 puff INHALATION RT-Q4H PRN 08/31/19 10/13/19 Budesonide/Formoterol Fumarate 1 puff INHALATION RT-BID 08/31/19 10/13/19 [Symbicort 160-4.5 Mcg Inhaler] Nystatin 100,000 Unit/gm Powd 1 applic TOPICAL BID PRN 09/16/19 10/13/19 [Mycostatin Powder] hydrALAZINE HCL [Apresoline] 25 mg PO BID@0800,199909/16/19 10/13/19 prednisoLONE ACETATE 1% OPHTH 1 drops RIGHT EYE DAILY 09/16/19 10/13/19 [Pred Forte 1%] Insulin Glargine,Hum.rec.anlog 20 unit SQ HS PRN 10/13/19 10/13/19 [Lantus Solostar] Insulin Glargine,Hum.rec.anlog See Protocol SQ HS PRN 10/13/19 10/13/19 [Lantus Solostar] Previous Rx's Medication Instructions Recorded Atorvastatin [Lipitor] 40 mg PO HS #90 tab 06/07/18 Clopidogrel [Plavix] 75 mg PO DAILY #90 tab 06/07/18 Nitroglycerin Sl Tabs [Nitrostat] 0.4 mg SUBLINGUAL Q5M PRN tab 07/30/18 QUEtiapine [SEROquel] 100 mg PO HS 30 Days #30 tab 04/13/19 Midodrine [ProAmatine] 2.5 mg PO AC-TID tab 04/14/19 Allergies Allergy/AdvReac Type Severity Reaction Status Date / Time Latex, Natural Rubber Allergy Itching Verified 10/13/19 20:26 sulfamethoxazole Allergy Rash/Hives Verified 10/13/19 20:26 [From Bactrim] trimethoprim [From Bactrim] Allergy Rash/Hives Verified 10/13/19 20:26 Review of Systems ROS Statement: Those systems with pertinent positive or pertinent negative responses have been documented in the HPI. ROS Other: All systems not noted in ROS Statement are negative. EKG Findings - EKG Comments: EKG Findings:: EKG is paced rhythm of 60. 04 QRS 98 QTc 526 Past Medical History Past Medical History: Atrial Fibrillation, Asthma, Coronary Artery Disease (CAD), Cancer, Heart Failure, CVA/TIA, Diabetes Mellitus, Eye Disorder, Hypertension, Osteoarthritis (OA), Renal Disease, Seizure Disorder Additional Past Medical History / Comment(s): Brain mass/fall with intracranial bleed/hematome-surgery at [facility], seizure after brain surgery, paroxysmal Afib, IDDM type II, neuropathy bilateral feet, orthostatic hypotension, SSS with pacemaker, L1 compression fx, CKD stage III, blind in L eye, UTIs, lower GI bleed, gastritis, gastric erosion, CDiff colitis, skin cancer with removals, past L arm fracture, past R arm fracture x2. History of Any Multi-Drug Resistant Organisms: MRSA Date of last positivie culture/infection: 01/26/19 MDRO Source:: URINE Past Surgical History: Cholecystectomy, Heart Catheterization, Heart Catheterization With Stent, Hysterectomy, Pacemaker Additional Past Surgical History / Comment(s): Evacuation of intracranial hematoma and ressection of hemorrhagic mass, pacemaker 2016, PCI with stent 06/06/18, EGD/colonoscopy, R eye corneal implant/cataract removal, EGD 06/2018, colonoscopy, skin cancer removal. Past Anesthesia/Blood Transfusion Reactions: No Reported Reaction Additional Past Anesthesia/Blood Transfusion Reaction / Comment(s): . Date of Last Stent Placement:: 06/06/18 Type of Cardiac Device: Permanent Pacemaker Device Placement Date:: 04/2016 Past Psychological History: Depression Smoking Status: Never smoker Past Alcohol Use History: None Reported Past Drug Use History: None Reported - Past Family History Mother Family Medical History: Cancer, COPD, Hypertension Additional Family Medical History / Comment(s): Mother had bone cancer. Father Family Medical History: Cancer, Hypertension Additional Family Medical History / Comment(s): Father had skin cancer. General Exam General appearance: alert, in no apparent distress Head exam: Present: atraumatic, normocephalic, normal inspection Eye exam: Present: normal appearance, PERRL, EOMI. Absent: scleral icterus, conjunctival injection, periorbital swelling ENT exam: Present: normal exam, mucous membranes moist Neck exam: Present: normal inspection. Absent: tenderness, meningismus, lymphadenopathy Respiratory exam: Present: normal lung sounds bilaterally. Absent: respiratory distress, wheezes, rales, rhonchi, stridor Cardiovascular Exam: Present: regular rate, normal rhythm, normal heart sounds. Absent: systolic murmur, diastolic murmur, rubs, gallop, clicks GI/Abdominal exam: Present: soft, normal bowel sounds. Absent: distended, tenderness, guarding, rebound, rigid Extremities exam: Present: normal inspection, full ROM, normal capillary refill. Absent: tenderness, pedal edema, joint swelling, calf tenderness Back exam: Present: normal inspection Neurological exam: Present: alert, oriented X3, CN II-XII intact Psychiatric exam: Present: normal affect, normal mood Skin exam: Present: warm, dry, intact, normal color. Absent: rash Course Vital Signs 10/13/19 10/13/19 18:27 19:28 Temperature 98.3 F 98.2 F Pulse Rate 60 61 Respiratory 18 18 Rate Blood Pressure 141/70 171/70 O2 Sat by Pulse 95 94 L Oximetry - Reevaluation(s) Reevaluation #1: 10/13/19 20:45 Medical record is reviewed Reevaluation #2: 10/13/19 20:45 Patient still not feeling well with chest pain Chest Pain MDM - MDM 74 female with chest pain. Patient will be admitted for chest pain observation pacemaker interrogation Disposition Clinical Impression: COPD (chronic obstructive pulmonary disease), H/O heart artery stent, Chest pain Disposition: ADMITTED IP TO THIS HOSP Condition: Good Is patient prescribed a controlled substance at d/c from ED?: No Referrals: Vikram Zamarripa MD [Primary Care Provider] - 1-2 days
[2019-10-13 19:19] LABS: Basophils # (A) 0.1 k/uL (0-0.2); Basophils % (A) 1 %; Eosinophils # (A) 0.1 k/uL (0-0.7); Eosinophils % (A) 2 %; HCT 45.5 % (34.0-46.0); HGB 14.3 gm/dL (11.4-16.0); Lymphocytes # (A) 1.6 k/uL (1.0-4.8); Lymphocytes % (A) 24 %; MCH 27.1 pg (25.0-35.0); MCHC 31.3 g/dL (31.0-37.0); MCV 86.4 fL (80.0-100.0); Mean Platelet Volume 8.1; Monocytes # (A) 0.4 k/uL (0-1.0); Monocytes % (A) 6 %; Neutrophils # (A) 4.2 k/uL (1.3-7.7); Neutrophils % (A) 65 %; Platelet Count 142 k/uL (150-450); RBC 5.27 m/uL (3.80-5.40); RDW 13.1 % (11.5-15.5); WBC 6.4 k/uL (3.8-10.6)
[2019-10-13 19:33] LABS: Albumin 3.5 g/dL (3.5-5.0); Calcium 8.9 mg/dL (8.4-10.2); Magnesium 1.9 mg/dL (1.6-2.3); Potassium 4.6 mmol/L (3.5-5.1); Total Bilirubin 0.8 mg/dL (0.2-1.3); Total Protein 5.6 g/dL (6.3-8.2)
[2019-10-13 19:41] LABS: Prothrombin Time 10.3 sec (9.0-12.0)
--- NOTE | 2019-10-13 19:48 | XR ---
EXAMINATION TYPE: XR chest 2V DATE OF EXAM: 10/13/2019 COMPARISON: Chest x-ray 09/16/2019 HISTORY: Chest pain TECHNIQUE: Frontal and lateral views of the chest are obtained. FINDINGS: There is a generator in left pectoral region, leads are present in the right atrium and sharif tricle. There is no focal air space opacity, pleural effusion, or pneumothorax seen. The cardiac janeth houette size is stable accounting for differences in rotation, technique. The aorta is dense. The os seous structures are intact, marked arthropathy present within the shoulders, there is distortion of the humeral heads which appears chronic, it may be posttraumatic. IMPRESSION: No acute cardiopulmonary process.
[2019-10-13] MEDS ORDERED: ASPIRIN 81 MG PO STA (20:43)
[2019-10-13] MEDS ORDERED: NITROGLYCERIN SL TABS 0.4 MG TAB SUBLINGUAL PRN (20:43)
[2019-10-14] MEDS: ASPIRIN 81 MG PO SCH (08:59)
[2019-10-14] MEDS: PANTOPRAZOLE 40 MG TABLET PO SCH ×2 (09:00→16:55)
[2019-10-14] MEDS: CLOPIDOGREL 75 MG TAB PO SCH (09:00)
[2019-10-14] MEDS ORDERED: ASPIRIN 325 MG TAB PO SCH (09:00)
[2019-10-14 10:25] LABS: Cholesterol 81 mg/dL (<200); HDL Cholesterol 34 mg/dL (40-60); LDL Cholesterol,Calculated 12 mg/dL (0-99); Triglycerides 174 mg/dL (<150)
--- NOTE | 2019-10-14 10:47 | P.CRDCN ---
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 She follows in the office with is Carine. We have been asked to see in consultation for chest pain. States yesterday while sitting down watching television she felt a discomfort in the epigastric region that was exacerbated by deep inspiration and worsened with palpation. She has an abnormal EKG at baseline with deep T-wave inversions that is consistent with previous EKGs. She was recently here in September of this year with similar type complaints. Echocardiogram obtained at that time revealed preserved LV systolic function with ejection fraction 55-60%, mild aortic regurgitation, moderate mitral calcification, mild mitral regurgitation and mild tricuspid regurgitation. Laboratory data reviewed, WBC 6.4, hemoglobin 14.3, platelets 142, sodium 137, potassium 4.6, creatinine 1.48, magnesium 1.9, cardiac enzymes negative 3, and T proBNP 4210, LDL 12 and HDL 34. Currently maintained on atorvastatin 40 mg at bedtime, Plavix 75 mg daily secondary to non-ST elevated myocardial infarction in April, hydralazine 25 mg twice a day and midodrine 2.5 mg 3 times a day. Chest x-ray negative for an acute cardiopulmonary process. REVIEW OF SYSTEMS At the time of my exam: CONSTITUTIONAL: Denies fever or chills. CARDIOVASCULAR: Denies chest pain, shortness of breath, orthopnea, PND or palpitations. RESPIRATORY: Denies cough. GASTROINTESTINAL: Denies abdominal pain, diarrhea, constipation, nausea or vomiting. MUSCULOSKELETAL: Denies myalgias. NEUROLOGIC: Denies numbness, tingling or weakness. ENDOCRINE: Denies fatigue, weight change, polydipsia or polyurina. GENITOURINARY: Denies burning, hematuria or urgency with micturation. HEMATOLOGIC: Denies history of anemia or bleeding. PHYSICAL EXAMINATION Blood pressure 158/77 heart rate 60 afebrile and maintaining oxygen saturation on room air. CONSTITUTIONAL: No apparent distress. HEENT: Head is normocephalic. Pupils are equal, round. Sclerae anicteric. Mucous membranes of the mouth are moist. No JVD. No carotid bruit. CHEST EXAMINATION: Lungs are clear to auscultation. No chest wall tenderness is noted on palpation or with deep breathing. HEART EXAMINATION: Regular rate and rhythm. S1, S2 heard. No murmurs, gallops or rub. ABDOMEN: Soft, nontender. Positive bowel sounds. EXTREMITIES: 2+ peripheral pulses, no lower extremity edema and no calf tend erness. NEUROLOGIC EXAMINATION: Patient is awake, alert and oriented x3. ASSESSMENT Chest pain, atypical. An acute coronary event has been ruled out. Recent cardiac catheterization revealed a patent stent with no other obstructive coronary artery disease. Consider GI etiology. 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 Pain is atypical to be related to angina. She had a recent stress test revealing a patent stent in the LAD. Initiate Protonix. Stable from a cardiac perspective, follow-up with Dr. Hawk upon discharge. Thank you kindly for this consultation. Nurse Practitioner note has been reviewed, I agree with a documented findings and plan of care. Patient was seen and examined. Past Medical History Past Medical History: Atrial Fibrillation, Asthma, Coronary Artery Disease (CAD), Cancer, Heart Failure, CVA/TIA, Diabetes Mellitus, Eye Disorder, Hypertension, Osteoarthritis (OA), Renal Disease, Seizure Disorder Additional Past Medical History / Comment(s): Brain mass/fall with intracranial bleed/hematome-surgery at [facility], seizure after brain surgery, paroxysmal Afib, IDDM type II, neuropathy bilateral feet, orthostatic hypotension, SSS with pacemaker, L1 compression fx, CKD stage III, blind in L eye, UTIs, lower GI bleed, gastritis, gastric erosion, CDiff colitis, skin cancer with removals, past L arm fracture, past R arm fracture x2. History of Any Multi-Drug Resistant Organisms: MRSA Date of last positivie culture/infection: 01/26/19 MDRO Source:: URINE Past Surgical History: Cholecystectomy, Heart Catheterization, Heart Catheterization With Stent, Hysterectomy, Pacemaker Additional Past Surgical History / Comment(s): Evacuation of intracranial hematoma and ressection of hemorrhagic mass, pacemaker 2016, PCI with stent 06/06/18, EGD/colonoscopy, R eye corneal implant/cataract removal, EGD 06/2018, colonoscopy, skin cancer removal. Past Anesthesia/Blood Transfusion Reactions: No Reported Reaction Additional Past Anesthesia/Blood Transfusion Reaction / Comment(s): . Date of Last Stent Placement:: 06/06/18 Type of Cardiac Device: Permanent Pacemaker Device Placement Date:: 04/2016 Past Psychological History: Depression Additional Psychological History / Comment(s): Pt has her son and daughter in law living with her. She uses a walker and has a wheelchair for longer distaces. She no longer drives, her family drives her to [employer]. Her son manages her medications. Daughter in law cooks. Pt states her depression has been increased intermittently but denies any thoughts/plans of suicide. Smoking Status: Never smoker Past Alcohol Use History: None Reported Past Drug Use History: None Reported - Past Family History Mother Family Medical History: Cancer, COPD, Hypertension Additional Family Medical History / Comment(s): Mother had bone cancer. Father Family Medical History: Cancer, Hypertension Additional Family Medical History / Comment(s): Father had skin cancer. Medications and Allergies Home Medications Medication Instructions Recorded Confirmed Type Ferrous Sulfate [Iron (65 MG 325 mg PO DAILY 03/27/18 10/13/19 History Elemental)] Atorvastatin [Lipitor] 40 mg PO HS #90 tab 06/07/18 10/13/19 Rx Clopidogrel [Plavix] 75 mg PO DAILY #90 tab 06/07/18 10/13/19 Rx levETIRAcetam [Keppra] 500 mg PO Q12HR 07/21/18 10/13/19 History Nitroglycerin Sl Tabs [Nitrostat] 0.4 mg SUBLINGUAL Q5M PRN tab 07/30/18 10/13/19 Rx Cyanocobalamin [Vitamin B-12] 500 mcg PO DAILY 01/11/19 10/13/19 History Calcium Carbonate 500 mg PO DAILY 04/09/19 10/13/19 History QUEtiapine [SEROquel] 100 mg PO HS 30 Days #30 tab 04/13/19 10/13/19 Rx Midodrine [ProAmatine] 2.5 mg PO AC-TID tab 04/14/19 10/13/19 Rx Acetaminophen Tab [Tylenol] 500 mg PO Q6HR PRN 08/31/19 10/13/19 History Albuterol Sulfate [Ventolin HFA] 2 puff INHALATION RT-Q4H PRN 08/31/19 10/13/19 History Budesonide/Formoterol Fumarate 1 puff INHALATION RT-BID 08/31/19 10/13/19 History [Symbicort 160-4.5 Mcg Inhaler] Nystatin 100,000 Unit/gm Powd 1 applic TOPICAL BID PRN 09/16/19 10/13/19 History [Mycostatin Powder] hydrALAZINE HCL [Apresoline] 25 mg PO BID@0800,199909/16/19 10/13/19 History prednisoLONE ACETATE 1% OPHTH 1 drops RIGHT EYE DAILY 09/16/19 10/13/19 History [Pred Forte 1%] Insulin Glargine,Hum.rec.anlog 20 unit SQ HS PRN 10/13/19 10/13/19 History [Lantus Solostar] Insulin Glargine,Hum.rec.anlog See Protocol SQ HS PRN 10/13/19 10/13/19 History [Lantus Solostar] Allergies Allergy/AdvReac Type Severity Reaction Status Date / Time Latex, Natural Rubber Allergy Itching Verified 10/13/19 20:26 sulfamethoxazole Allergy Rash/Hives Verified 10/13/19 20:26 [From Bactrim] trimethoprim [From Bactrim] Allergy Rash/Hives Verified 10/13/19 20:26 Physical Exam Vitals: Vital Signs Temp Pulse Pulse Resp BP BP Pulse Ox 10/14/19 08:10 97.8 F 60 16 158/77 97 10/14/19 03:00 97.7 F 57 L 18 152/68 96 10/13/19 23:37 97.7 F 61 18 174/78 95 10/13/19 21:00 98.0 F 64 18 177/80 97 10/13/19 19:28 98.2 F 61 18 171/70 94 L 10/13/19 18:27 98.3 F 60 18 141/70 95 Intake and Output 10/13/19 10/14/19 10/14/19 22:59 06:59 14:59 Other: Voiding Method Bedside Commode # Voids 2 Weight 70.307 kg Results 10/13/19 19:05 08/11/20 19:05 Cardiac Enzymes 10/13/19 10/13/19 10/13/19 Range/Units 19:05 19:05 22:35 AST 18 (14-36) U/L Troponin I <0.012 0.015 (0.000-0.034) ng/mL 10/14/19 Range/Units 00:30 AST (14-36) U/L Troponin I 0.015 (0.000-0.034) ng/mL Coagulation 10/13/19 Range/Units 19:05 PT 10.3 (9.0-12.0) sec APTT 24.0 (22.0-30.0) sec CBC 10/13/19 Range/Units 19:05 WBC 6.4 (3.8-10.6) k/uL RBC 5.27 (3.80-5.40) m/uL Hgb 14.3 (11.4-16.0) gm/dL Hct 45.5 (34.0-46.0) % Plt Count 142 L (150-450) k/uL Comprehensive Metabolic Panel 10/13/19 Range/Units 19:05 Sodium 137 (137-145) mmol/L Potassium 4.6 (3.5-5.1) mmol/L Chloride 103 (98-107) mmol/L Carbon Dioxide 29 (22-30) mmol/L BUN 25 H (7-17) mg/dL Creatinine 1.48 H (0.52-1.04) mg/dL Glucose 170 H (74-99) mg/dL Calcium 8.9 (8.4-10.2) mg/dL AST 18 (14-36) U/L ALT 6 (4-34) U/L Alkaline Phosphatase 84 (38-126) U/L Total Protein 5.6 L (6.3-8.2) g/dL Albumin 3.5 (3.5-5.0) g/dL Current Medications Generic Name Dose Route Start Last Admin Trade Name Freq PRN Reason Stop Dose Admin Aspirin 81 mg 10/14/19 09:00 Aspirin PO DAILY [facility] Atorvastatin Calcium 40 mg 10/14/19 21:00 Lipitor PO HS [facility] Clopidogrel Bisulfate 75 mg 10/14/19 09:00 Plavix PO DAILY [facility] Hydralazine HCl 25 mg 10/14/19 20:00 Apresoline PO BID@0800,2000 [facility] Midodrine 2.5 mg 10/14/19 12:30 Proamatine PO AC-TID [facility] Nitroglycerin 0.4 mg 10/13/19 20:43 Nitrostat SUBLINGUAL Q5M PRN Chest Pain Pantoprazole Sodium 40 mg 10/14/19 08:15 Protonix PO AC-BID [facility] Intake and Output 10/13/19 10/14/19 10/14/19 22:59 06:59 14:59 Other: Voiding Method Bedside Commode # Voids 2 Weight 70.307 kg 10/13/19 19:05 10/13/19 19:05
[2019-10-14] MEDS: MIDODRINE 5 MG TAB PO SCH ×2 (12:30→19:47)
--- NOTE | 2019-10-14 18:05 | HP ---
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 Sees Dr. Hawk. Admitted for chest pain. Pain in the epigastric, worse with palpation. EKG at baseline. T-wave inversion. Echo showed 55- 60 percent ejection fraction. Labs are reviewed. Chest x-ray is negative. REVIEW OF SYMPTOMS: 14 point review of systems negative except for mentioned in HPI. PHYSICAL EXAM: Blood pressure 150s over 70s, heart rate 60s. O2 decent on room air, high 90s. HEART: Regular rate and rhythm. ABDOMEN: Soft. No cyanosis, clubbing or edema. NEUROLOGIC: Cranial nerves are intact. ASSESSMENT: 1. Atypical chest pain. Negative troponins. Possible gastrointestinal etiology. 2. Paroxysmal atrial fibrillation. 3. Sick sinus syndrome. 4. Hypertension. 5. Dyslipidemia. 6. Diabetes mellitus. Put on Protonix for possible GERD. We will try to get a Gastroenterology doctor to see her for possible abdominal source of atypical chest pain. MMODL / IJN: [id number] /
[2019-10-14 19:37] LABS: Glucose,Whole Blood 218 mg/dL (75-99)
[2019-10-14] MEDS: hydrALAZINE HCL 25 MG TAB PO SCH (20:06)
[2019-10-14] MEDS ORDERED: ALBUTEROL NEBULIZED 2.5 MG/3 ML INHALATION PRN (20:15)
[2019-10-14] MEDS ORDERED: ACETAMINOPHEN TAB 500 MG TAB PO PRN (20:15)
[2019-10-14] MEDS ORDERED: NITROGLYCERIN SL TABS 0.4 MG TAB SUBLINGUAL PRN (20:15)
[2019-10-14] MEDS ORDERED: NYSTATIN 100,000 UNIT/GM POWD 15 GM TOPICAL PRN (20:15)
[2019-10-14] MEDS ORDERED: ATORVASTATIN 40 MG TAB PO SCH (21:00)
[2019-10-14] MEDS ORDERED: QUEtiapine 100 MG TAB PO SCH (21:00)
[2019-10-14] MEDS ORDERED: INSULIN DETEMIR (LEVEMIR) 100 UNIT/ML SYR SQ SCH (21:00)
[2019-10-14] MEDS: levETIRAcetam 500 MG TAB PO SCH (21:22)
--- NOTE | 2019-10-14 22:41 | CT ---
EXAMINATION TYPE: CT abdomen pelvis wo con DATE OF EXAM: 10/14/2019 COMPARISON: 06/12/2018 HISTORY: Epigastric pain. CT DLP: 696.4 mGycm Automated exposure control for dose reduction was used. Images were obtained from the diaphragm to the floor the pelvis with no contrast. Lung bases are clear. There is no pleural effusion. Heart size is normal. There is no pericardial eff usion. There is some coronary artery calcification. There are clips from cholecystectomy. Liver shows no focal defect. Spleen is intact. Stomach is intac t. There is no evidence of pancreatic mass. There is no adrenal mass. Kidneys show normal size and contour. There is no hydronephrosis. Ureters a re not dilated. There is no retroperitoneal adenopathy. Bladder distends smoothly. There is no free f luid in the pelvis. There is small ventral umbilical hernia that contains fat. There is no mesenteric edema. There is no ascites or free air. There is no bowel obstruction. There is 15% compression deformity of L3 and L1 vertebra which appear old. There are a few sigmoid di verticula. There is no sign of diverticulitis. The bony pelvis is intact. There is facet arthropathy and disc bulging with some spinal stenosis at L4-5. There is some mild spinal stenosis at L1-2. IMPRESSION: Old lumbar compression fractures unchanged. Extensive atherosclerotic vascular disease. Small umbilic al hernia unchanged. No acute abnormality within the abdomen pelvis.
[2019-10-15] MEDS: PANTOPRAZOLE 40 MG TABLET PO SCH (06:34)
[2019-10-15] MEDS ORDERED: SYMBICORT 160-4.5 MCG INHALER INHALATION SCH (08:00)
[2019-10-15 08:03] VITALS: BP 167/55; PULSE 60; RESP 16; TEMP 97.5
[2019-10-15] MEDS: MIDODRINE 5 MG TAB PO SCH ×2 (08:05→13:11)
[2019-10-15] MEDS: hydrALAZINE HCL 25 MG TAB PO SCH (08:07)
[2019-10-15] MEDS ORDERED: CALCIUM CARBONATE 500 MG CHEWABLE PO SCH (09:00)
[2019-10-15] MEDS ORDERED: FERROUS SULFATE 325 MG TAB PO SCH (09:00)
[2019-10-15] MEDS ORDERED: prednisoLONE ACETATE 1% OPHTH DROPS 5 ML BTL RIGHT EYE SCH (09:00)
[2019-10-15] MEDS ORDERED: CYANOCOBALAMIN 500 MCG TAB PO SCH (09:00)
[2019-10-15] MEDS: CLOPIDOGREL 75 MG TAB PO SCH (09:44)
[2019-10-15] MEDS: ASPIRIN 81 MG PO SCH (09:44)
[2019-10-15] MEDS: levETIRAcetam 500 MG TAB PO SCH (09:44)
--- NOTE | 2019-10-15 10:25 | P.PN ---
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 She follows in the office with cathy Hawk. She is seen and examined sitting up in bed in no acute distress. She denies any further symptoms of chest discomfort. Her breathing is stable. Blood pressure 167/55 sitting up in bed with a heart rate of 60 maintaining oxygen saturation on room air. She underwent a CT of her abdomen and pelvis that was unremarkable. PHYSICAL EXAMINATION CONSTITUTIONAL: No apparent distress. HEENT: Head is normocephalic. Pupils are equal, round. Sclerae anicteric. Mucous membranes of the mouth are moist. No JVD. No carotid bruit. CHEST EXAMINATION: Lungs are clear to auscultation. No chest wall tenderness is noted on palpation or with deep breathing. HEART EXAMINATION: Regular rate and rhythm. S1, S2 heard. No murmurs, gallops or rub. EXTREMITIES: 2+ peripheral pulses, no lower extremity edema and no calf tenderness. ASSESSMENT Chest pain, atypical. An acute coronary event has been ruled out. Recent cardiac catheterization revealed a patent stent with no other obstructive coronary artery disease. Consider GI etiology. Baseline abnormal EKG secondary to cardiac memory following a paced QRS vector Paroxysmal atrial fibrillation not on chcf anticoagulation secondary to history of brain hemorrhage Sick sinus syndrome status post permanent pacemaker implantation History of hypertension with orthostatic hypotension Dyslipidemia Diabetes mellitus PLAN Stable from a cardiac perspective. Continue current medical regimen. Follow-up with Dr. Hawk upon discharge. We will follow along as needed. Nurse Practitioner note has been reviewed, I agree with a documented findings and plan of care. Patient was seen and examined. Objective - Vital Signs Vital signs: Vital Signs Temp 97.5 F L 10/15/19 07:57 Pulse 60 10/15/19 07:57 Resp 16 10/15/19 07:57 BP 167/55 10/15/19 07:57 Pulse Ox 97 10/15/19 08:05 Intake & Output 10/14/19 10/15/19 10/15/19 18:59 06:59 18:59 Intake Total 250 Balance 250 Intake: Oral 250 Other: Voiding Method Bedside Commode Bedside Commode # Voids 2 1 - Labs CBC & Chem 7: 10/13/19 19:05 10/13/19 19:05 Labs: Abnormal Lab Results - Last 24 Hours (Table) 10/14/19 10/14/19 Range/Units 09:14 19:33 POC Glucose (mg/dL) 218 H (75-99) mg/dL Triglycerides 174 H (<150) mg/dL HDL Cholesterol 34 L (40-60) mg/dL
--- NOTE | 2019-10-15 14:52 | P.GSCN ---
History of Present Illness Consult date: 10/15/19 History of present illness: CHIEF COMPLAINT: Epigastric abdominal pain HISTORY OF PRESENT ILLNESS: This is a 74-year-old female with a history of coronary artery disease cardiac stents, paroxysmal atrial fibrillation,sick sinus rhythm with pacemaker, CVA, diabetes, seizure disorder, and asthma. She initially presented to the hospital with complaints of upper chest pain and abdominal pain. She was seen by cardiology clinic coronary syndrome was ruled out. Surgical consult was placed due to epigastric abdominal pain. Patient reports having epigastric abdominal pain with nausea for about 2 weeks. She reports no vomiting. Bowel movement regular. Her last EGD was over 10 years ago. She denies any fever, chills or sweats. PAST MEDICAL HISTORY: See list. PAST SURGICAL HISTORY: See list. MEDICATIONS: See list. ALLERGIES: See list. SOCIAL HISTORY: No illicit drug use. REVIEW OF SYSTEMS: CONSTITUTIONAL: Denies fever or chills. HEENT: Denies blurred vision, vision changes, or eye pain. Denies hemoptysis CARDIOVASCULAR: Denies chest pain or pressure. RESPIRATORY: No shortness of breath. GASTROINTESTINAL: See HPI for pertinent findings HEMATOLOGIC: Denies bleeding disorders. GENITOURINARY: Denies any blood in urine or increased urinary frequency. SKIN: Denies pruitis. Denies rash. PHYSICAL EXAM: VITAL SIGNS: Reviewed GENERAL: Well-developed in no acute distress. HEENT: No sclera icterus. Extraocular movements grossly intact. Moist buccal mucosa. Head is atraumatic, normocephalic. No nasal drainage. ABDOMEN: Soft. Nondistended. Mild epigastric tenderness with palpation. NEUROLOGIC: Alert and oriented. Cranial nerves II through XII grossly intact. LABORATORY DATA: WBC 6.4 LFTs normal IMAGING: Computed tomography scan of the abdomen and pelvis small umbilical hernia unchanged. No acute abnormality within the abdomen and pelvis ASSESSMENT: 1. Epigastric abdominal pain 2. Nausea PLAN: -Patient is surgically stable for discharge -Agree with continuing the Protonix -Patient to follow-up with Dr. Chaidez for outpatient EGD Physician Network Support Manager note has been reviewed by physician. Signing provider agrees with the documented findings, assessment, and plan of care. Past Medical History Past Medical History: Atrial Fibrillation, Asthma, Coronary Artery Disease (CA D), Cancer, Heart Failure, CVA/TIA, Diabetes Mellitus, Eye Disorder, Hypertension, Osteoarthritis (OA), Renal Disease, Seizure Disorder Additional Past Medical History / Comment(s): Brain mass/fall with intracranial bleed/hematome-surgery at [facility], seizure after brain surgery, paroxysmal Afib, IDDM type II, neuropathy bilateral feet, orthostatic hypotensi on, SSS with pacemaker, L1 compression fx, CKD stage III, blind in L eye, UTIs, lower GI bleed, gastritis, gastric erosion, CDiff colitis, skin cancer with removals, past L arm fracture, past R arm fracture x2. History of Any Multi-Drug Resistant Organisms: MRSA Year Discovered:: 01/26/19 MDRO Source:: URINE Past Surgical History: Cholecystectomy, Heart Catheterization, Heart Catheterization With Stent, Hysterectomy, Pacemaker Additional Past Surgical History / Comment(s): Evacuation of intracranial hematoma and ressection of hemorrhagic mass, pacemaker 2016, PCI with stent 06/06/18, EGD/colonoscopy, R eye corneal implant/cataract removal, EGD 06/2018, colonoscopy, skin cancer removal. Past Anesthesia/Blood Transfusion Reactions: No Reported Reaction Additional Past Anesthesia/Blood Transfusion Reaction / Comm: . Date of Last Stent Placement:: 06/06/18 Type of Cardiac Device: Permanent Pacemaker Device Placement Date:: 04/2016 Past Psychological History: Depression Additional Psychological History / Comment(s): Pt has her son and daughter in law living with her. She uses a walker and has a wheelchair for longer distaces. She no longer drives, her family drives her to appts. Her son manages her medications. Daughter in law cooks. Pt states her depression has been increased intermittently but denies any thoughts/plans of suicide. Smoking Status: Never smoker Past Alcohol Use History: None Reported Past Drug Use History: None Reported - Past Family History Mother Family Medical History: Cancer, COPD, Hypertension Additional Family Medical History / Comment(s): Mother had bone cancer. Father Family Medical History: Cancer, Hypertension Additional Family Medical History / Comment(s): Father had skin cancer. Medications and Allergies Home Medications Medication Instructions Recorded Confirmed Type Ferrous Sulfate [Iron (65 MG 325 mg PO DAILY 03/27/18 10/13/19 History Elemental)] Atorvastatin [Lipitor] 40 mg PO HS #90 tab 06/07/18 10/13/19 Rx Clopidogrel [Plavix] 75 mg PO DAILY #90 tab 06/07/18 10/13/19 Rx levETIRAcetam [Keppra] 500 mg PO Q12HR 07/21/18 10/13/19 History Nitroglycerin Sl Tabs [Nitrostat] 0.4 mg SUBLINGUAL Q5M PRN tab 07/30/18 10/13/19 Rx Cyanocobalamin [Vitamin B-12] 500 mcg PO DAILY 01/11/19 10/13/19 History Calcium Carbonate 500 mg PO DAILY 04/09/19 10/13/19 History QUEtiapine [SEROquel] 100 mg PO HS 30 Days #30 tab 04/13/19 10/13/19 Rx Midodrine [ProAmatine] 2.5 mg PO AC-TID tab 04/14/19 10/13/19 Rx Acetaminophen Tab [Tylenol] 500 mg PO Q6HR PRN 08/31/19 10/13/19 History Albuterol Sulfate [Ventolin HFA] 2 puff INHALATION RT-Q4H PRN 08/31/19 10/13/19 History Budesonide/Formoterol Fumarate 1 puff INHALATION RT-BID 08/31/19 10/13/19 History [Symbicort 160-4.5 Mcg Inhaler] Nystatin 100,000 Unit/gm Powd 1 applic TOPICAL BID PRN 09/16/19 10/13/19 History [Mycostatin Powder] hydrALAZINE HCL [Apresoline] 25 mg PO BID@0800,2000 09/16/19 10/13/19 History prednisoLONE ACETATE 1% OPHTH 1 drops RIGHT EYE DAILY 09/16/19 10/13/19 History [Pred Forte 1%] Insulin Glargine,Hum.rec.anlog 20 unit SQ HS PRN 10/13/19 10/13/19 History [Lantus Solostar] Insulin Glargine,Hum.rec.anlog See Protocol SQ HS PRN 10/13/19 10/13/19 History [Lantus Solostar] Aspirin 81 mg PO DAILY chew 10/15/19 Rx Nitroglycerin Sl Tabs [Nitrostat] 0.4 mg SUBLINGUAL Q5M PRN tab 10/15/19 Rx Pantoprazole [Protonix] 40 mg PO AC-BID 30 Days #60 10/15/19 Rx tablet. Allergies Allergy/AdvReac Type Severity Reaction Status Date / Time Latex, Natural Rubber Allergy Itching Verified 10/13/19 20:26 sulfamethoxazole Allergy Rash/Hives Verified 10/13/19 20:26 [From Bactrim] trimethoprim [From Bactrim] Allergy Rash/Hives Verified 10/13/19 20:26 Surgical - Exam Vital Signs Temp Pulse Resp BP Pulse Ox 98.3 F 60 18 141/70 95 10/13/19 18:27 10/13/19 18:27 10/13/19 18:27 10/13/19 18:27 10/13/19 18:27 Results - Labs 10/13/19 19:05 10/13/19 19:05 Abnormal Lab Results - Last 24 Hours (Table) 10/14/19 Range/Units 19:33 POC Glucose (mg/dL) 218 H (75-99) mg/dL
--- NOTE | 2019-11-10 07:07 | DS ---
DISCHARGE SUMMARY DATE OF ADMISSION: 10/13/2019 DATE OF DISCHARGE: 10/15/2019 CONDITION: Stable. PROGNOSIS: Guarded. DISCHARGE MEDICINES: 1. Ferrous sulfate 325 daily. 2. Lipitor 40 mg daily. 3. Plavix 75 mg daily. 4. Keppra 500 b.i.d. 5. Nitroglycerin sublingual p.r.n. 6. Vitamin B12, 500 mcg daily. 7. Calcium carbonate 500 mg daily. 8. Seroquel 100 at bedtime. 9. Midodrine 2.5 a.c. t.i.d. 10.Ventolin HFA 2 puffs q.4 hours. 11.Symbicort 160/4.5 two puffs b.i.d. 12.Pred Forte 1 drop right eye daily. 13.Hydralazine 25 b.i.d. 14.Lantus Solo Law 20 units subcu at night. 15.Aspirin 81 daily. 16.Nitroglycerin sublingual p.r.n. 17.Protonix 40 mg b.i.d. AMBULATE: As tolerated. This 74-year-old white female came in with abdominal pain. Abdomen and pelvis CAT scan was ordered and was cleared by Surgery. History of coronary artery disease, paroxysmal atrial fibrillation, sick sinus syndrome, pacemaker, CVA, diabetes. Surgery saw her and cleared her for discharge. Continue with Protonix. She has a small umbilical hernia that can be worked up as an outpatient. Dehydration and UTI were treated. MMJULYL / MOLLYN: [id number] /
== END 2019-10-15 16:13 | disposition home or self-care (01) ==
LOC: EC 18:12 → 3NCARDOBS 20:44
PROVIDERS: ADMIT Family Medicine; ATTEND Family Medicine
DX: R07.89 Other chest pain (principal); R10.13 Epigastric pain; R11.0 Nausea; I48.0 Paroxysmal atrial fibrillation; I49.5 Sick sinus syndrome; I13.0 Hypertensive heart and chronic kidney disease with heart failure and stage 1 through stage 4 chronic kidney disease, or unspecified chronic kidney disease; E78.5 Hyperlipidemia, unspecified; E11.22 Type 2 diabetes mellitus with diabetic chronic kidney disease; E11.42 Type 2 diabetes mellitus with diabetic polyneuropathy; J45.909 Unspecified asthma, uncomplicated; I25.10 Atherosclerotic heart disease of native coronary artery without angina pectoris; N18.3 Chronic kidney disease, stage 3 (moderate); I50.9 Heart failure, unspecified; M19.90 Unspecified osteoarthritis, unspecified site; G40.909 Epilepsy, unspecified, not intractable, without status epilepticus; I95.1 Orthostatic hypotension; H54.62 Unqualified visual loss, left eye, normal vision right eye; F32.9 Major depressive disorder, single episode, unspecified; R94.31 Abnormal electrocardiogram [ECG] [EKG]; Z95.5 Presence of coronary angioplasty implant and graft; Z95.0 Presence of cardiac pacemaker; Z79.899 Other long term (current) drug therapy; Z79.02 Long term (current) use of antithrombotics/antiplatelets; Z79.51 Long term (current) use of inhaled steroids; Z79.52 Long term (current) use of systemic steroids; Z79.4 Long term (current) use of insulin; Z91.040 Latex allergy status; Z88.2 Allergy status to sulfonamides; Z85.828 Personal history of other malignant neoplasm of skin; Z86.73 Personal history of transient ischemic attack (TIA), and cerebral infarction without residual deficits; Z86.69 Personal history of other diseases of the nervous system and sense organs; Z87.820 Personal history of traumatic brain injury; Z98.890 Other specified postprocedural states; Z87.81 Personal history of (healed) traumatic fracture; Z87.440 Personal history of urinary (tract) infections; Z87.19 Personal history of other diseases of the digestive system; Z86.19 Personal history of other infectious and parasitic diseases; Z86.14 Personal history of Methicillin resistant Staphylococcus aureus infection; Z90.49 Acquired absence of other specified parts of digestive tract; Z90.710 Acquired absence of both cervix and uterus; Z94.7 Corneal transplant status; Z98.41 Cataract extraction status, right eye; Z80.8 Family history of malignant neoplasm of other organs or systems; Z82.5 Family history of asthma and other chronic lower respiratory diseases; Z82.49 Family history of ischemic heart disease and other diseases of the circulatory system
CPT/HCPCS: 93005 ×2; 99285; 36415; 94640; 94760; 83880; 80061; 80053; 83735; 84484 ×2; 85025; 85610; 85730; 71046; 74176; G0378 ×3

== ENCOUNTER 2019-12-19 13:24 | Inpatient (IN) | payer MEDICARE ==
[2019-12-19] MEDS ORDERED: SODIUM CHLORIDE 0.9% 1,000 ML IV STA (13:28)
--- NOTE | 2019-12-19 13:31 | ED ---
Weakness HPI - General Stated complaint: Weakness Time Seen by Provider: 12/19/19 13:27 Source: RN notes reviewed, old records reviewed - History of Present Illness Initial comments: This is a 74-year-old female DF for evaluation of weakness, patient is multiple medical issues medical history but today is unable to eat or drink and unable to take her medications. Complaining of dehydration and inability to tolerate secretions or swallow, patient has no pain no chest pain and no pain with swallowing MD Complaint: generalized weakness -: days(s) Location: generalized (Weakness related to inability to eat or drink) Consistency: constant Improves with: none Worsens with: none Context: recent illness (Just overall weakness) Associated Symptoms: loss of appetite, nausea/vomiting - Related Data Home Medications Medication Instructions Recorded Confirmed Ferrous Sulfate [Iron (65 MG 325 mg PO DAILY 03/27/18 12/19/19 Elemental)] levETIRAcetam [Keppra] 500 mg PO Q12HR 07/21/18 12/19/19 Cyanocobalamin [Vitamin B-12] 500 mcg PO DAILY 01/11/19 12/19/19 Nystatin 100,000 Unit/gm Powd 1 applic TOPICAL BID PRN 09/16/19 12/19/19 [Mycostatin Powder] hydrALAZINE HCL [Apresoline] 25 mg PO BID@0800,2000 09/16/19 12/19/19 Calcium Carbonate [Calcium] 600 mg PO DAILY 12/19/19 12/19/19 Escitalopram Oxalate [Lexapro] 20 mg PO DAILY 12/19/19 12/19/19 Linagliptin [Tradjenta] 5 mg PO DAILY 12/19/19 12/19/19 Pantoprazole [Protonix] 40 mg PO DAILY 12/19/19 12/19/19 Previous Rx's Medication Instructions Recorded Atorvastatin [Lipitor] 40 mg PO HS #90 tab 06/07/18 Clopidogrel [Plavix] 75 mg PO DAILY #90 tab 06/07/18 Nitroglycerin Sl Tabs [Nitrostat] 0.4 mg SUBLINGUAL Q5M PRN tab 07/30/18 QUEtiapine [SEROquel] 100 mg PO HS 30 Days #30 tab 04/13/19 Allergies Allergy/AdvReac Type Severity Reaction Status Date / Time Latex, Natural Rubber Allergy Itching Verified 12/19/19 15:16 sulfamethoxazole Allergy Rash/Hives Verified 12/19/19 15:16 [From Bactrim] trimethoprim [From Bactrim] Allergy Rash/Hives Verified 12/19/19 15:16 Review of Systems ROS Statement: Those systems with pertinent positive or pertinent negative responses have been documented in the HPI. ROS Other: All systems not noted in ROS Statement are negative. Past Medical History Past Medical History: Atrial Fibrillation, Asthma, Coronary Artery Disease (CAD), Cancer, Heart Failure, CVA/TIA, Diabetes Mellitus, Eye Disorder, Hypertension, Osteoarthritis (OA), Renal Disease, Seizure Disorder Additional Past Medical History / Comment(s): Brain mass/fall with intracranial bleed/hematome-surgery at [facility], seizure after brain surgery, paroxysmal Afib, IDDM type II, neuropathy bilateral feet, orthostatic hypotension, SSS with pacemaker, L1 compression fx, CKD stage III, blind in L eye, UTIs, lower GI bleed, gastritis, gastric erosion, CDiff colitis, skin cancer with removals, past L arm fracture, past R arm fracture x2. History of Any Multi-Drug Resistant Organisms: MRSA Date of last positivie culture/infection: 01/26/19 MDRO Source:: URINE Past Surgical History: Cholecystectomy, Heart Catheterization, Heart Catheterization With Stent, Hysterectomy, Pacemaker Additional Past Surgical History / Comment(s): Evacuation of intracranial hematoma and ressection of hemorrhagic mass, pacemaker 2016, PCI with stent 06/06/18, EGD/colonoscopy, R eye corneal implant/cataract removal, EGD 06/2018, colonoscopy, skin cancer removal. Past Anesthesia/Blood Transfusion Reactions: No Reported Reaction Additional Past Anesthesia/Blood Transfusion Reaction / Comment(s): . Date of Last Stent Placement:: 06/06/18 Type of Cardiac Device: Permanent Pacemaker Device Placement Date:: 04/2016 Past Psychological History: Depression Additional Psychological History / Comment(s): Pt has her son and daughter in law living with her. She uses a walker and has a wheelchair for longer distaces. She no longer drives, her family drives her to appts. Her son manages her medications. Daughter in law cooks. Pt states her depression has been increased intermittently but denies any thoughts/plans of suicide. Smoking Status: Never smoker Past Alcohol Use History: None Reported Past Drug Use History: None Reported - Past Family History Mother Family Medical History: Cancer, COPD, Hypertension Additional Family Medical History / Comment(s): Mother had bone cancer. Father Family Medical History: Cancer, Hypertension Additional Family Medical History / Comment(s): Father had skin cancer. General Exam General appearance: alert, in no apparent distress Head exam: Present: atraumatic, normocephalic, normal inspection Eye exam: Present: normal appearance, PERRL, EOMI. Absent: scleral icterus, conjunctival injection, periorbital swelling ENT exam: Present: normal exam, mucous membranes moist Neck exam: Present: normal inspection. Absent: tenderness, meningismus, lymphadenopathy Respiratory exam: Present: normal lung sounds bilaterally. Absent: respiratory distress, wheezes, rales, rhonchi, stridor Cardiovascular Exam: Present: regular rate, normal rhythm, normal heart sounds. Absent: systolic murmur, diastolic murmur, rubs, gallop, clicks GI/Abdominal exam: Present: soft, normal bowel sounds. Absent: distended, tenderness, guarding, rebound, rigid Extremities exam: Present: normal inspection, full ROM, normal capillary refill. Absent: tenderness, pedal edema, joint swelling, calf tenderness Back exam: Present: normal inspection Neurological exam: Present: alert, oriented X3, CN II-XII intact Psychiatric exam: Present: normal affect, normal mood Skin exam: Present: warm, dry, intact, normal color. Absent: rash Course Vital Signs 12/19/19 12/19/19 12/19/19 13:38 14:43 15:24 Temperature 97.8 F Pulse Rate 62 60 60 Respiratory 12 12 12 Rate Blood Pressure 197/78 145/63 178/61 O2 Sat by Pulse 97 96 96 Oximetry - Reevaluation(s) Reevaluation #1: 12/19/19 15:29 Records reviewed Reevaluation #2: 12/19/19 15:29 patient still with difficulty tolerating secretions unable to eat or drink here in the ER - Consultations Consultation #1: Spoke with Dr. Zamarripa will admit this patient EKG Findings - EKG Comments: EKG Findings:: EKG shows paced 62 OR 176 QRS 200 QTc 558 Medical Decision Making - Medical Decision Making 74 female with dysphagia, difficulty eating or drinking dehydration urinary t ract infection, will admit for treatment - Lab Data Result diagrams: 12/19/19 13:43 12/19/19 13:43 Lab Results 12/19/19 12/19/19 12/19/19 Range/Units 13:43 13:43 13:43 WBC 4.9 (3.8-10.6) k/uL RBC 5.76 H (3.80-5.40) m/uL Hgb 16.2 H (11.4-16.0) gm/dL Hct 50.8 H (34.0-46.0) % MCV 88.1 (80.0-100.0) fL MCH 28.1 (25.0-35.0) pg MCHC 31.9 (31.0-37.0) g/dL RDW 13.3 (11.5-15.5) % Plt Count 120 L (150-450) k/uL Neutrophils % 69 % Lymphocytes % 19 % Monocytes % 7 % Eosinophils % 2 % Basophils % 2 % Neutrophils # 3.4 (1.3-7.7) k/uL Lymphocytes # 1.0 (1.0-4.8) k/uL Monocytes # 0.3 (0-1.0) k/uL Eosinophils # 0.1 (0-0.7) k/uL Basophils # 0.1 (0-0.2) k/uL PT 10.3 (9.0-12.0) sec INR 1.0 (<1.2) APTT 24.0 (22.0-30.0) sec Sodium (137-145) mmol/L Potassium (3.5-5.1) mmol/L Chloride (98-107) mmol/L Carbon Dioxide (22-30) mmol/L Anion Gap mmol/L BUN (7-17) mg/dL Creatinine (0.52-1.04) mg/dL Est GFR (CKD-EPI)AfAm (>60 ml/min/1.73 sqM) Est GFR (CKD-EPI)NonAf (>60 ml/min/1.73 sqM) Glucose (74-99) mg/dL Plasma Lactic Acid Hema (0.7-2.0) mmol/L Calcium (8.4-10.2) mg/dL Phosphorus (2.5-4.5) mg/dL Magnesium (1.6-2.3) mg/dL Total Bilirubin (0.2-1.3) mg/dL AST (14-36) U/L ALT (4-34) U/L Alkaline Phosphatase (38-126) U/L Creatine Kinase (30-135) U/L Troponin I (0.000-0.034) ng/mL Total Protein (6.3-8.2) g/dL Albumin (3.5-5.0) g/dL TSH (0.465-4.680) mIU/L Urine Color Yellow Urine Appearance Clear (Clear) Urine pH 5.5 (5.0-8.0) Ur Specific Muir 1.024 (1.001-1.035) Urine Protein 1+ H (Negative) Urine Glucose (UA) Negative (Negative) Urine Ketones Negative (Negative) Urine Blood Negative (Negative) Urine Nitrite Negative (Negative) Urine Bilirubin Negative (Negative) Urine Urobilinogen 2.0 (<2.0) mg/dL Ur Leukocyte Esterase Small H (Negative) Urine RBC 1 (0-5) /hpf Urine WBC 13 H (0-5) /hpf Ur Squamous Epith Cells 1 (0-4) /hpf Hyaline Casts 7 H (0-2) /lpf Urine Mucus Few H (None) /hpf 12/19/19 12/19/19 12/19/19 Range/Units 13:43 13:43 13:43 WBC (3.8-10.6) k/uL RBC (3.80-5.40) m/uL Hgb (11.4-16.0) gm/dL Hct (34.0-46.0) % MCV (80.0-100.0) fL MCH (25.0-35.0) pg MCHC (31.0-37.0) g/dL RDW (11.5-15.5) % Plt Count (150-450) k/uL Neutrophils % % Lymphocytes % % Monocytes % % Eosinophils % % Basophils % % Neutrophils # (1.3-7.7) k/uL Lymphocytes # (1.0-4.8) k/uL Monocytes # (0-1.0) k/uL Eosinophils # (0-0.7) k/uL Basophils # (0-0.2) k/uL PT (9.0-12.0) sec INR (<1.2) APTT (22.0-30.0) sec Sodium 139 (137-145) mmol/L Potassium 4.7 (3.5-5.1) mmol/L Chloride 102 (98-107) mmol/L Carbon Dioxide 31 H (22-30) mmol/L Anion Gap 6 mmol/L BUN 19 H (7-17) mg/dL Creatinine 1.56 H (0.52-1.04) mg/dL Est GFR (CKD-EPI)AfAm 37 (>60 ml/min/1.73 sqM) Est GFR (CKD-EPI)NonAf 32 (>60 ml/min/1.73 sqM) Glucose 162 H (74-99) mg/dL Plasma Lactic Acid Hema 1.0 (0.7-2.0) mmol/L Calcium 9.1 (8.4-10.2) mg/dL Phosphorus 3.5 (2.5-4.5) mg/dL Magnesium 1.8 (1.6-2.3) mg/dL Total Bilirubin 1.4 H (0.2-1.3) mg/dL AST 18 (14-36) U/L ALT 7 (4-34) U/L Alkaline Phosphatase 89 (38-126) U/L Creatine Kinase 38 (30-135) U/L Troponin I <0.012 (0.000-0.034) ng/mL Total Protein 6.5 (6.3-8.2) g/dL Albumin 4.1 (3.5-5.0) g/dL TSH 1.840 (0.465-4.680) mIU/L Urine Color Urine Appearance (Clear) Urine pH (5.0-8.0) Ur Specific Muir (1.001-1.035) Urine Protein (Negative) Urine Glucose (UA) (Negative) Urine Ketones (Negative) Urine Blood (Negative) Urine Nitrite (Negative) Urine Bilirubin (Negative) Urine Urobilinogen (<2.0) mg/dL Ur Leukocyte Esterase (Negative) Urine RBC (0-5) /hpf Urine WBC (0-5) /hpf Ur Squamous Epith Cells (0-4) /hpf Hyaline Casts (0-2) /lpf Urine Mucus (None) /hpf - Radiology Data Radiology results: report reviewed (Chest x-rays negative for acute disease), image reviewed Disposition Clinical Impression: Weakness, Dehydration, UTI (urinary tract infection), Dysphagia Disposition: ADMITTED IP TO THIS HOSP Condition: Fair Is patient prescribed a controlled substance at d/c from ED?: No Referrals: Vikram Zamarripa MD [Primary Care Provider] - 1-2 days
[2019-12-19 13:52] LABS: Basophils # (A) 0.1 k/uL (0-0.2); Basophils % (A) 2 %; Eosinophils # (A) 0.1 k/uL (0-0.7); Eosinophils % (A) 2 %; HCT 50.8 % (34.0-46.0); HGB 16.2 gm/dL (11.4-16.0); Lymphocytes % (A) 19 %; MCH 28.1 pg (25.0-35.0); MCHC 31.9 g/dL (31.0-37.0); MCV 88.1 fL (80.0-100.0); Mean Platelet Volume 7.4; Monocytes # (A) 0.3 k/uL (0-1.0); Monocytes % (A) 7 %; Neutrophils # (A) 3.4 k/uL (1.3-7.7); Neutrophils % (A) 69 %; Platelet Count 120 k/uL (150-450); RBC 5.76 m/uL (3.80-5.40); RDW 13.3 % (11.5-15.5); WBC 4.9 k/uL (3.8-10.6)
[2019-12-19 14:03] LABS: Albumin 4.1 g/dL (3.5-5.0); Calcium 9.1 mg/dL (8.4-10.2); Magnesium 1.8 mg/dL (1.6-2.3); Phosphorus 3.5 mg/dL (2.5-4.5); Potassium 4.7 mmol/L (3.5-5.1); Total Bilirubin 1.4 mg/dL (0.2-1.3); Total Protein 6.5 g/dL (6.3-8.2)
[2019-12-19 14:09] LABS: Prothrombin Time 10.3 sec (9.0-12.0)
[2019-12-19 14:30] LABS: Appearance,Urine Clear (Clear); Bilirubin,Urine Negative (Negative); Blood,Urine Negative (Negative); Color,Urine Yellow; Glucose,Urine (UA) Negative (Negative); Hyaline Casts,Urine 7 /lpf (0-2); Ketones,Urine Negative (Negative); Leukocyte Esterase,Urine Small (Negative); Mucus,Urine Few /hpf; Nitrite,Urine Negative (Negative); PH, Urine 5.5 (5.0-8.0); Protein,Urine 1+ (Negative); RBC,Urine 1 /hpf (0-5); Specific Gravity,Urine 1.024 (1.001-1.035); Squamous Epithelial Cell,Urine 1 /hpf (0-4); WBC,Urine 13 /hpf (0-5)
[2019-12-19] MEDS ORDERED: PROPOFOL 10 MG/ML 20 ML VIAL IV ONE (14:55)
[2019-12-19] MEDS ORDERED: LIDOCAINE 1% INJ 10MG/ML (20 ML MDV) ONE (14:55)
--- NOTE | 2019-12-19 15:10 | XR ---
EXAMINATION TYPE: XR chest 1V DATE OF EXAM: 12/19/2019 COMPARISON: 10/13/2019 HISTORY: Cough TECHNIQUE: FINDINGS: There is no heart failure nor confluent pneumonic infiltrate. There is left axillary pacema ker. There is significant arthritic change in the shoulder joints. There is no pleural effusion. Ther e is coarse density at the pulmonary erin consistent with old granulomatous disease. IMPRESSION: No active cardiomegaly disease. No significant change.
[2019-12-19] MEDS ORDERED: DEXTROSE 5%-0.45% NACL 1,000 ML IV ONE (15:26)
[2019-12-19] MEDS ORDERED: NITROGLYCERIN SL TABS 0.4 MG TAB SUBLINGUAL PRN (17:09)
[2019-12-19] MEDS ORDERED: NYSTATIN 100,000 UNIT/GM POWD 15 GM TOPICAL PRN (17:09)
[2019-12-19] MEDS: QUEtiapine 100 MG TAB PO SCH (19:46)
[2019-12-19] MEDS: levETIRAcetam 500 MG TAB PO SCH (19:46)
[2019-12-19] MEDS: ATORVASTATIN 40 MG TAB PO SCH (19:46)
[2019-12-19] MEDS: hydrALAZINE HCL 25 MG TAB PO SCH (19:46)
--- NOTE | 2019-12-19 19:56 | HP ---
HISTORY AND PHYSICAL 74-year-old white female, weakness, possible UTI, unable to drink or take her medicines, possible dehydration secondary to the difficulty to tolerate swallowing. No chest pain, no shortness of breath, generalized weakness due to dehydration and difficulty eating. She was found to have a UTI and was admitted to the hospital. We are going to get GI consult for dysphagia and difficulty swallowing. HOME MEDICATIONS: Iron 65 mg daily, Keppra 500 b.i.d., vitamin B12 500 daily, nystatin powder b.i.d., Apresoline 25 b.i.d., calcium 600 daily, Lexapro 20 daily, Tradjenta 5 mg daily, Protonix 40 mg daily. ALLERGIES: RUBBER, BACTRIM. 14-point review of systems otherwise is negative. PAST MEDICAL HISTORY: Atrial fibrillation, asthma, coronary artery disease, cancer, heart failure, CVA, TIA, diabetes mellitus, eye disorder, hypertension, osteoarthritis, renal disease, seizure disorder, possible orthostatic hypotension, neuropathy, compression fractures, sick sinus syndrome, pacemaker, paroxysmal atrial fibrillation, skin cancer, C difficile colitis, kidney disease stage 3, multiple arm fractures, and cranial resection of hematoma and mass. FAMILY HISTORY: Mother with COPD and hypertension. Father with cancer and hypertension. Vital signs stable. General appearance is alert, no acute distress. Head normocephalic, atraumatic. Ophthalmologic: Pupils equal, round, reactive to light and accommodation. ENT: External ear canals normal. Neck is supple, no mass. Respiratory: Transmitted upper airway sounds. Cardiovascular S1, S2. Extremities: No cyanosis, clubbing, edema. Back: Normal inspection. Neurologic: Cranial nerves intact. Psych: Fair mood and affect. Skin warm, dry, intact. Blood pressure 140s to 190s over 70s to 80s. Pulse 60 to 62, respiratory 12 to 18, O2 97 to 98. ASSESSMENT: 1. Urinary tract infection. 2. Dehydration. 3. Generalized weakness. 4. Dysphagia versus severe malnutrition. 5. Prerenal renal failure. 6. Obvious dehydration. IV fluids, IV antibiotics. Await for GI consult for dysphagia, possible barium swallow, rehydrated overnight, treat for UTI. MMODL / IJN: [id number] /
[2019-12-19 21:39] LABS: Glucose,Whole Blood 120 mg/dL (75-99)
[2019-12-20 02:29] LABS: Glucose,Whole Blood 127 mg/dL (75-99)
[2019-12-20 07:02] LABS: Glucose,Whole Blood 138 mg/dL (75-99)
--- NOTE | 2019-12-20 08:09 | FL ---
EXAMINATION TYPE: FL barium swallow DATE OF EXAM: 12/20/2019 CLINICAL INDICATION: 74-year-old female dysphasia, trouble swallowing, weakness. COMPARISON: None Total Fluoroscopy Time: 55 seconds. Total images: 32 FINDINGS: Double contrast study was initially attempted but due to patient weakness and inability to weight-ashley r for inadequate length of time, the exam was converted to a single contrast study with thin barium. The table was positioned at a 45 degree tilt. The swallowing mechanism appears normal and hypopharyng eal anatomy is preserved. Only mild hypertrophy of the cricopharyngeus muscle in the upper cervical e sophagus. Moderate to severe tertiary peristaltic waves are demonstrated but no fixed narrowing is i dentified. No sizable hiatal hernia. No obvious mucosal lesion though assessment limited by single co ntrast technique. No filling defects seen. IMPRESSION: 1. Exam converted to a single contrast study with thin barium due to patient's weakness and inability to stand for an adequate length of time. 2. Mild hypertrophy of the CP muscle. 3. Moderate to severe tertiary peristalsis suggesting presbyesophagus. 4. No stricture or obstructing lesion seen.
[2019-12-20] MEDS: ESCITALOPRAM 20 MG TAB PO SCH (09:04)
[2019-12-20] MEDS: levETIRAcetam 500 MG TAB PO SCH ×2 (09:04→21:23)
[2019-12-20] MEDS: DEXTROSE 5%-0.45% NACL 1,000 ML IV SCH ×2 (09:04→17:32)
[2019-12-20] MEDS: hydrALAZINE HCL 25 MG TAB PO SCH ×2 (09:04→19:21)
[2019-12-20] MEDS: LINAGLIPTIN 5 MG TABLET PO SCH (09:04)
[2019-12-20] MEDS: FERROUS SULFATE 325 MG TAB PO SCH (09:04)
[2019-12-20] MEDS: CALCIUM CARBONATE 500 MG CHEWABLE PO SCH (09:04)
[2019-12-20] MEDS: CLOPIDOGREL 75 MG TAB PO SCH (09:05)
[2019-12-20] MEDS: CYANOCOBALAMIN 500 MCG TAB PO SCH (09:05)
[2019-12-20] MEDS: PANTOPRAZOLE 40 MG TABLET PO SCH (09:05)
--- NOTE | 2019-12-20 12:03 | CONS ---
CONSULTATION DATE OF DICTATION: December 20, 2019 REASON FOR CONSULTATION: Dysphagia HISTORY OF PRESENT ILLNESS: The patient is a 74-year-old pleasant white female admitted to the hospital because of dysphagia for the last 2 months duration. Symptoms initially were intermittent but lately getting worse. She is not able to tolerate much solids and feels the food gets stuck in the throat area. She did have a barium swallow this morning that showed no evidence of obstruction, mild cricopharyngeal achalasia and tertiary contractions. She denies any recent weight loss. She reports no heartburn. No odynophagia. No recent upper endoscopy. Also complaining of some tingling, numbness in her left foot area. PAST MEDICAL HISTORY: Significant for history of coronary artery disease, atrial fibrillation, asthma, CVA, TIA, diabetes mellitus, hypertension, degenerative joint disease, skin cancer. PAST SURGICAL HISTORY: Evacuation of intracranial hematoma, pacemaker implantation in April 2016. EGD and colonoscopy in the past, bilateral cataract surgeries. SOCIAL HISTORY: No smoking. No alcohol use. FAMILY HISTORY: Mother COPD and hypertension. Father hypertension and skin cancer. MEDICATIONS: Medications at home include iron, Keppra, vitamin B12, apresolin, calcium, Lexapro, Tradjenta, Protonix and Mycostatin. ALLERGIES: LATEX, BACTRIM. REVIEW OF SYSTEMS: CARDIOPULMONARY: No chest pain, no shortness of breath. GENITOURINARY: No dysuria or hematuria. MUSCULOSKELETAL unremarkable. SKIN unremarkable. ENDOCRINE unremarkable. GI as mentioned above. PSYCHIATRIC unremarkable. ENT/VISION: Unremarkable. CONSTITUTIONAL: No weight loss. No fever, chills, night sweats. PHYSICAL EXAMINATION: She appears comfortable. No apparent distress. Vital signs stable. Blood pressure 117/75, pulse is 61, temperature 97.6. HEENT examination unremarkable. Conjunctivae pink. Sclerae anicteric. Oral cavity no lesions. NECK no JVD or lymph node enlargement. CHEST was clear to auscultation. HEART: Regular rate and rhythm. ABDOMEN: Soft. Bowel sounds are positive. No organomegaly. EXTREMITIES: No pedal edema. NEURO: She is alert and oriented x3. No focal deficits. LABS: WBC 4.9, hemoglobin 16.2, platelets 120. Basic metabolic panel is within normal limits. BUN 19, creatinine 1.56, PTT/INR is within normal limits. AST, ALT normal. T- bilirubin 1.4. IMPRESSION: 1. Progressive dysphagia to solids and liquids for the last 2 months duration. She feels the food gets stuck in the throat area. She did have a barium swallow done this morning that showed evidence of tertiary contractions and some mild cricopharyngeal hypertrophy and moderate to severe tertiary contractions. 2. Tingling and numbness of the left foot. 3. History of hypertension. 4. History of atrial fibrillation. 5. Anxiety and depression. 6. History of gastroesophageal reflux disease. RECOMMENDATIONS: 1. Continue Protonix daily. 2. We will proceed with an upper endoscopy tomorrow. I discussed with the patient the risks, benefits and complications of procedure and she is agreeable to it. Thank you for this consultation. MMODL / IJN: [id number] /
[2019-12-20 12:14] LABS: Glucose,Whole Blood 143 mg/dL (75-99)
[2019-12-20] MEDS: amLODIPine 5 MG TAB PO SCH (12:56)
--- NOTE | 2019-12-20 13:30 | PN ---
PROGRESS NOTE 34-year-old white female with a barium swallow today which showed moderate peristalsis and moderate to severe presbyesophagus. Await for GI recommendation. We are going to have calcium channel alexis that might help with this and may help with hypertension which was extremely high, currently 180s to 200 systolic. She is wondering about having some diarrhea with urination. We are going to check stool for C diff and continue with IV antibiotics for UTI until the culture comes back negative. Dr. Bobo has seen her for difficulty swallowing. Preliminary culture is pending. ASSESSMENT: 1. Urinary tract infection. 2. Dyslipidemia. 3. Seizures. 4. Gastroesophageal reflux disease. 5. Mood disorder. 6. Presbyesophagus. 7. Hypertension acceleration. . Continue on broad-spectrum IV antibiotics. Await for urine culture. Give her a chopped diet to try after barium swallow, small frequent meals. Calcium channel alexis for hypertension acceleration. Await for GI recommendations. Wait for urine culture. MMODL / IJN: [id number] /
[2019-12-20 17:20] LABS: Glucose,Whole Blood 115 mg/dL (75-99)
[2019-12-20 20:55] LABS: Glucose,Whole Blood 127 mg/dL (75-99)
[2019-12-20] MEDS: QUEtiapine 100 MG TAB PO SCH (21:23)
[2019-12-20] MEDS: ATORVASTATIN 40 MG TAB PO SCH (21:23)
[2019-12-21 01:54] LABS: Glucose,Whole Blood 134 mg/dL (75-99)
[2019-12-21 07:09] LABS: Glucose,Whole Blood 136 mg/dL (75-99)
[2019-12-21] MEDS: LINAGLIPTIN 5 MG TABLET PO SCH (08:29)
[2019-12-21] MEDS: amLODIPine 5 MG TAB PO SCH (08:30)
[2019-12-21] MEDS: CYANOCOBALAMIN 500 MCG TAB PO SCH (08:30)
[2019-12-21] MEDS: PANTOPRAZOLE 40 MG TABLET PO SCH (08:30)
[2019-12-21] MEDS: ESCITALOPRAM 20 MG TAB PO SCH (08:30)
[2019-12-21] MEDS: CLOPIDOGREL 75 MG TAB PO SCH (08:30)
[2019-12-21] MEDS: hydrALAZINE HCL 25 MG TAB PO SCH ×2 (08:31→20:36)
[2019-12-21] MEDS: FERROUS SULFATE 325 MG TAB PO SCH (08:31)
[2019-12-21] MEDS: CALCIUM CARBONATE 500 MG CHEWABLE PO SCH (08:31)
[2019-12-21] MEDS: levETIRAcetam 500 MG TAB PO SCH ×2 (08:31→20:36)
[2019-12-21 12:42] LABS: Glucose,Whole Blood 141 mg/dL (75-99)
[2019-12-21] MEDS: DEXTROSE 5%-0.45% NACL 1,000 ML IV SCH (13:29)
[2019-12-21] MEDS ORDERED: IV FLUID CONTINUATION 1,000 ML IV ONE ×2 (14:42)
--- NOTE | 2019-12-21 15:16 | P.PCN ---
Date of Procedure: 12/21/19 Description of Procedure: BRIEF HISTORY: Patient is a 71-year-old female who presents to the hospital with onset of difficulty swallowing. Intermittent been getting worse recently. She has a sensation of food getting stuck in her esophagus. She did have a barium swallow which showed no evidence of obstruction with mild cricopharyngeal dysphagia and tertiary contractions. PROCEDURE PERFORMED: Esophagogastroduodenoscopy with biopsy. PREOPERATIVE DIAGNOSIS: Esophageal dysphagia. ESTIMATED BLOOD LOSS: Minimal. IV sedation per anesthesia. PROCEDURE: After informed consent was obtained, the patient was brought into the endoscopy unit. IV sedation was administered by Anesthesia under continuous monitoring. Initially the Olympus GIF-190 video endoscope was inserted into the mouth. Esophagus intubated without any difficulty. It was gradually advanced into the stomach and duodenum and carefully examined. The bulb and the second part of the duodenum appeared normal, with biopsy. The scope at this time was withdrawn to the stomach, adequately insufflated with air, and upon careful examination, mucosa of the antrum, body, cardia and the fundus appeared normal, except for some mild scattered erythema in the antrum and body suggestive of mild gastritis biopsies taken. The scope was then withdrawn into the esophagus. The GE junction was located at 39 cm from the incisors, with biopsies taken. A small 1 cm hiatal hernia was noted. The midesophagus was biopsied to rule out eosinophilic esophagitis. The esophagus appeared normal, there was some tightness at the upper esophageal sphincter suggestive of cricopharyngeal dysphagia/achalasia however it was able to be traversed easily. There were no erosions or ulcerations seen and the patient tolerated the procedure well. IMPRESSION: 1. Mild gastritis. 2. Small hiatal hernia. 3. Some tightness was noted at the upper esophageal sphincter suggestive of cricopharyngeal achalasia/dysphagia. 4. Biopsies of the duodenum, antrum body, GE junction and mid esophagus. RECOMMENDATIONS: The findings of this examination were discussed with the patient. Okay to resume diet. Okay to resume medications. Await pathology from biopsies. Continue Protonix therapy. Can consider further evaluation in the outpatient setting with manometry if symptoms persist. Could also consider the addition of an anticholinergic or calcium channel alexis for symptomatically. Lifestyle modifications including small bites and sips of liquid in between solid food were discussed with the patient.
[2019-12-21 17:21] LABS: Glucose,Whole Blood 169 mg/dL (75-99)
[2019-12-21] MEDS: QUEtiapine 100 MG TAB PO SCH (20:35)
[2019-12-21] MEDS: ATORVASTATIN 40 MG TAB PO SCH (20:35)
[2019-12-21 21:05] LABS: Glucose,Whole Blood 132 mg/dL (75-99)
[2019-12-22 02:15] LABS: Glucose,Whole Blood 144 mg/dL (75-99)
--- NOTE | 2019-12-22 02:32 | PN ---
PROGRESS NOTE A 74-year-old white female had EGD which showed achalasia. A calcium channel alexis has been started. The patient continues to have difficulty eating. Full diet is going to be advanced at this time. UTI, cultures only 30 to 50,000 colonies. Antibiotics will be stopped on discharge. We will continue with small frequent meals with slow eating and calcium channel blockers. Wait for EGD biopsy. She will be able to go home tomorrow. She is up ambulating. CARDIOVASCULAR: S1, S2. LUNGS: Clear. GI: Soft. ASSESSMENT: 1. Esophageal dysmobility. 2. Presbyesophagus. 3. Achalasia. Calcium channel blockers have been started. Proton pump inhibitors started. Await for EGD results as an outpatient. Discharge home in the morning. MMODL / IJN: [id number] /
[2019-12-22 07:04] LABS: Glucose,Whole Blood 125 mg/dL (75-99)
[2019-12-22] MEDS: amLODIPine 5 MG TAB PO SCH (08:33)
[2019-12-22] MEDS: CLOPIDOGREL 75 MG TAB PO SCH (08:33)
[2019-12-22] MEDS: CALCIUM CARBONATE 500 MG CHEWABLE PO SCH (08:33)
[2019-12-22] MEDS: PANTOPRAZOLE 40 MG TABLET PO SCH (08:33)
[2019-12-22] MEDS: hydrALAZINE HCL 25 MG TAB PO SCH (08:33)
[2019-12-22] MEDS: FERROUS SULFATE 325 MG TAB PO SCH (08:34)
[2019-12-22] MEDS: CYANOCOBALAMIN 500 MCG TAB PO SCH (08:34)
[2019-12-22] MEDS: levETIRAcetam 500 MG TAB PO SCH (08:34)
[2019-12-22] MEDS: ESCITALOPRAM 20 MG TAB PO SCH (08:34)
[2019-12-22] MEDS: LINAGLIPTIN 5 MG TABLET PO SCH (08:34)
[2019-12-22 11:17] LABS: Glucose,Whole Blood 117 mg/dL (75-99)
[2019-12-22 11:44] VITALS: BP 156/62; PULSE 60; RESP 16; TEMP 97.7
[2019-12-22] MEDS: DEXTROSE 5%-0.45% NACL 1,000 ML IV SCH (12:12)
--- NOTE | 2019-12-22 13:34 | P.PN ---
Subjective Progress Note Date: 12/22/19 Principal diagnosis: Dysphasia Is is a 74-year-old pleasant white female who was admitted to the hospital because of dysphagia for the last 2 months duration. Symptoms initially were intermittent but lately are getting worse. She has not been a able to tolerate much solids and feels the food and pills are getting stuck in her throat. 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 Yesterday the patient underwent an upper endoscopy that showed some tightness at the upper esophageal ring turgor suggestive of cricopharyngeal dysphagia/achalasia however it was able to be traversed easily. There was mild gastritis and small hiatal hernia. Today she was seen and evaluated at the bedside. She states that she was able to tolerate and swallow her dysphagia level III chopped diet without difficulty. She states she did have a little problem with her pills this morning. She is denying any abdominal pain, nausea, or vomiting. Objective - Vital Signs Vital signs: Vital Signs Temp 97.7 F 12/22/19 11:43 Pulse 60 12/22/19 11:43 Resp 16 12/22/19 11:43 BP 156/62 12/22/19 11:43 Pulse Ox 96 12/22/19 11:43 Intake & Output 12/21/19 12/22/19 12/22/19 18:59 06:59 18:59 Intake Total 650 750 Balance 650 750 Intake: IV 200 Intake, IV Titration 450 550 Amount Dextrose 5%-0.45% NaCl 1, 400 500 000 ml @ 50 mls/hr IV . Q20H [facility] Rx#:[id number] cefTRIAXone 1 gm In 50 50 Sodium Chloride 0.9% 50 ml @ 100 mls/hr IVPB Q12H [facility] Rx#:[id number] Oral 200 Other: Voiding Method Toilet Toilet Toilet # Voids 1 2 1 - Exam General appearance: The patient is alert, oriented, in no acute distress. HET: Head is normocephalic and atraumatic. Conjunctiva pink. Sclera anicteric. Neck: Supple without lymphadenopathy. Abdomen: Soft, nontender, nondistended with bowel sounds. No guarding or rigidity. Extremities: Normal skin color and turgor. No pedal edema Neurological: No focal deficits. Alert and oriented 3. - Labs CBC & Chem 7: 12/19/19 13:43 12/19/19 13:43 Labs: Abnormal Lab Results - Last 24 Hours (Table) 12/21/19 12/21/19 12/22/19 Range/Units 17:19 21:04 02:13 POC Glucose (mg/dL) 169 H 132 H 144 H (75-99) mg/dL 12/22/19 12/22/19 Range/Units 06:57 11:15 POC Glucose (mg/dL) 125 H 117 H (75-99) mg/dL Assessment and Plan (1) Dysphagia Narrative/Plan: Aggressive dysphasia to solids and liquids for the last 2 months duration. Patient's feeling that she is getting food and pills stuck in her throat. She did have a barium swallow done showed evidence of tertiary contractions and some mild cricopharyngeal hypertrophy and moderate to severe tertiary contractions. The patient underwent an upper endoscopy yesterday which showed mild gastritis, small hiatal hernia, some tightness that was noted at the upper esophageal sphincter suggestive of cricopharyngeal achalasia/dysphasia. Biopsies were taken. Patient was advanced to a dysphagia level III chopped diet and is tolerating well. Current Visit: Yes Status: Acute Code(s): R13.10 - DYSPHAGIA, UNSPECIFIED SNOMED Code(s): 09499364 (2) GERD (gastroesophageal reflux disease) Current Visit: Yes Status: Acute Code(s): K21.9 - GASTRO-ESOPHAGEAL REFLUX DISEASE WITHOUT ESOPHAGITIS SNOMED Code(s): 026921846 Plan: 1. Supportive care 2. Continue Protonix daily 3. Patient is status post upper endoscopy results as stated above 4. Continue with dysphasia level III Diet, discussed with patient to only swallow 1 pill at a time with plenty of water in between. Continue at home with lifestyle modifications including small bites and sips of liquid and between solid foods. 5. Patient to follow-up with gastroenterology as an outpatient for biopsy results in 2 discuss further evaluation in the outpatient setting such as manometry if symptoms persist. Could also consider the addition of an anticholinergic or calcium channel alexis for symptom improvement.
[2019-12-22 16:55] LABS: Glucose,Whole Blood 154 mg/dL (75-99)
== END 2019-12-22 18:18 | disposition home or self-care (01) | DRG 690 ==
LOC: EC 13:24 → 6NMEDSUR 15:26 → OBSVTOIN 12-21 13:08 → 6NMEDSUR 12-21 22:10
PROVIDERS: ADMIT Family Medicine; ATTEND Family Medicine
PROC: 0DB78ZX Excision of Stomach, Pylorus, Via Natural or Artificial Opening Endoscopic, Diagnostic (ICD-10-PCS; 2019-12-21)
PROC: 0DB28ZX Excision of Middle Esophagus, Via Natural or Artificial Opening Endoscopic, Diagnostic (ICD-10-PCS; 2019-12-21)
PROC: 0DB48ZX Excision of Esophagogastric Junction, Via Natural or Artificial Opening Endoscopic, Diagnostic (ICD-10-PCS; 2019-12-21)
PROC: 0DB98ZX Excision of Duodenum, Via Natural or Artificial Opening Endoscopic, Diagnostic (ICD-10-PCS; principal; 2019-12-21 08:35)
DX: N39.0 Urinary tract infection, site not specified (principal); I13.0 Hypertensive heart and chronic kidney disease with heart failure and stage 1 through stage 4 chronic kidney disease, or unspecified chronic kidney disease; E11.22 Type 2 diabetes mellitus with diabetic chronic kidney disease; E11.40 Type 2 diabetes mellitus with diabetic neuropathy, unspecified; Z79.4 Long term (current) use of insulin; E78.5 Hyperlipidemia, unspecified; E86.0 Dehydration; F32.9 Major depressive disorder, single episode, unspecified; F41.9 Anxiety disorder, unspecified; G40.909 Epilepsy, unspecified, not intractable, without status epilepticus; H54.62 Unqualified visual loss, left eye, normal vision right eye; I25.10 Atherosclerotic heart disease of native coronary artery without angina pectoris; I48.0 Paroxysmal atrial fibrillation; I50.9 Heart failure, unspecified; J45.909 Unspecified asthma, uncomplicated; K21.9 Gastro-esophageal reflux disease without esophagitis; N18.30 Chronic kidney disease, stage 3 unspecified; K22.0 Achalasia of cardia; K22.2 Esophageal obstruction; K22.8 Other specified diseases of esophagus; K29.70 Gastritis, unspecified, without bleeding; K44.9 Diaphragmatic hernia without obstruction or gangrene; R13.14 Dysphagia, pharyngoesophageal phase; R47.02 Dysphasia; R63.3 Feeding difficulties; M19.90 Unspecified osteoarthritis, unspecified site; Z94.7 Corneal transplant status; Z98.42 Cataract extraction status, left eye; Z98.41 Cataract extraction status, right eye; Z88.2 Allergy status to sulfonamides; Z91.040 Latex allergy status; Z79.02 Long term (current) use of antithrombotics/antiplatelets; Z79.899 Other long term (current) drug therapy; Z80.8 Family history of malignant neoplasm of other organs or systems; Z82.49 Family history of ischemic heart disease and other diseases of the circulatory system; Z82.5 Family history of asthma and other chronic lower respiratory diseases; Z85.828 Personal history of other malignant neoplasm of skin; Z86.73 Personal history of transient ischemic attack (TIA), and cerebral infarction without residual deficits; Z87.11 Personal history of peptic ulcer disease; Z90.710 Acquired absence of both cervix and uterus; Z95.0 Presence of cardiac pacemaker; Z95.5 Presence of coronary angioplasty implant and graft; Z90.49 Acquired absence of other specified parts of digestive tract; Z86.19 Personal history of other infectious and parasitic diseases; Z86.14 Personal history of Methicillin resistant Staphylococcus aureus infection
CPT/HCPCS: 36415; 43239; 71045; 74220; 80053; 81001; 82550; 83605; 83735; 84100; 84443; 84484; 85025; 85610; 85730; 87086; 88305; 93005; 94760; 96361; 96365; 99285

== ENCOUNTER 2020-09-10 12:02 | Emergency (ER) | payer MEDICARE ==
[2020-09-10] MEDS ORDERED: SODIUM CHLORIDE 0.9% 500 ML 500 ML IV STA (12:37)
--- NOTE | 2020-09-10 12:49 | ED ---
General Adult HPI - General Chief complaint: Nausea/Vomiting/Diarrhea Stated complaint: N/V Time Seen by Provider: 09/10/20 12:05 Source: patient, EMS, RN notes reviewed, old records reviewed Mode of arrival: EMS - History of Present Illness Initial comments: This is a 75-year-old female presents emergency department stating that she vomits every once while because she feels like food is stuck or throat and then she throws it back up. Patient states she is able to keep most of her food down especially if she chooses well. Patient states she had one episode of diarrhea last night. Patient denies any abdominal pain patient denies chest pain difficulty breathing first breath per patient denies any fevers chills per patient denies any dysuria hematuria urinary frequency. Patient denies any back pain. Patient denies any headache patient denies numbness weakness patient denies lightheadedness or dizziness. Patient states that her daughter called the ambulance and her daughter was not with her at the time. Currently patient has no complaints - Related Data Home Medications Medication Instructions Recorded Confirmed Ferrous Sulfate [Iron (65 MG 325 mg PO DAILY 03/27/18 12/19/19 Elemental)] levETIRAcetam [Keppra] 500 mg PO Q12HR 07/21/18 12/19/19 Cyanocobalamin [Vitamin B-12] 500 mcg PO DAILY 01/11/19 12/19/19 Nystatin 100,000 Unit/gm Powd 1 applic TOPICAL BID PRN 09/16/19 12/19/19 [Mycostatin Powder] hydrALAZINE HCL [Apresoline] 25 mg PO BID@0800,2000 09/16/19 12/19/19 Calcium Carbonate [Calcium] 600 mg PO DAILY 12/19/19 12/19/19 Escitalopram Oxalate [Lexapro] 20 mg PO DAILY 12/19/19 12/19/19 Linagliptin [Tradjenta] 5 mg PO DAILY 12/19/19 12/19/19 Pantoprazole [Protonix] 40 mg PO DAILY 12/19/19 12/19/19 Previous Rx's Medication Instructions Recorded Atorvastatin [Lipitor] 40 mg PO HS #90 tab 06/07/18 Clopidogrel [Plavix] 75 mg PO DAILY #90 tab 06/07/18 Nitroglycerin Sl Tabs [Nitrostat] 0.4 mg SUBLINGUAL Q5M PRN tab 05/29/19 QUEtiapine [SEROquel] 100 mg PO HS 30 Days #30 tab 04/13/19 amLODIPine [Norvasc] 5 mg PO DAILY 90 Days #90 tab 12/22/19 Allergies Allergy/AdvReac Type Severity Reaction Status Date / Time Latex, Natural Rubber Allergy Itching Verified 12/19/19 15:16 sulfamethoxazole Allergy Rash/Hives Verified 12/19/19 15:16 [From Bactrim] trimethoprim [From Bactrim] Allergy Rash/Hives Verified 12/19/19 15:16 Review of Systems ROS Statement: Those systems with pertinent positive or pertinent negative responses have been documented in the HPI. ROS Other: All systems not noted in ROS Statement are negative. Past Medical History Past Medical History: Atrial Fibrillation, Asthma, Coronary Artery Disease (CAD), Cancer, Heart Failure, CVA/TIA, Diabetes Mellitus, Eye Disorder, Hypertension, Osteoarthritis (OA), Renal Disease, Seizure Disorder Additional Past Medical History / Comment(s): Brain mass/fall with intracranial bleed/hematome-surgery at [facility], seizure after brain surgery, paroxysmal Afib, IDDM type II, neuropathy bilateral feet, orthostatic hypotension, SSS with pacemaker, L1 compression fx, CKD stage III, blind in L eye, UTIs, lower GI bleed, gastritis, gastric erosion, CDiff colitis, skin cancer with removals, past L arm fracture, past R arm fracture x2. History of Any Multi-Drug Resistant Organisms: MRSA Date of last positivie culture/infection: 01/26/19 MDRO Source:: URINE Past Surgical History: Cholecystectomy, Heart Catheterization, Heart Catheterization With Stent, Hysterectomy, Pacemaker Additional Past Surgical History / Comment(s): Evacuation of intracranial hematoma and ressection of hemorrhagic mass, pacemaker 2016, PCI with stent 06/06/18, EGD/colonoscopy, R eye corneal implant/cataract removal, EGD 06/2018, colonoscopy, skin cancer removal. Past Anesthesia/Blood Transfusion Reactions: No Reported Reaction Additional Past Anesthesia/Blood Transfusion Reaction / Comment(s): . Date of Last Stent Placement:: 06/06/18 Type of Cardiac Device: Permanent Pacemaker Device Placement Date:: 04/2016 Past Psychological History: Depression Smoking Status: Never smoker - Past Family History Mother Family Medical History: Cancer, COPD, Hypertension Additional Family Medical History / Comment(s): Mother had bone cancer. Father Family Medical History: Cancer, Hypertension Additional Family Medical History / Comment(s): Father had skin cancer. General Exam - General Exam Comments Initial Comments: GENERAL: Patient is well-developed and well-nourished. Patient is nontoxic and well-hydrated and is in no acute distress. ENT: Neck is soft and supple. No significant lymphadenopathy is noted. Oropharynx is clear. Moist mucous membranes. Neck has full range of motion without eliciting any pain. EYES: The sclera were anicteric and conjunctiva were pink and moist. Extraocular move ments were intact and pupils were equal round and reactive to light. Eyelids were unremarkable. PULMONARY: Unlabored respirations. Good breath sounds bilaterally. No audible rales rhonchi or wheezing was noted. CARDIOVASCULAR: There is a regular rate and rhythm without any murmurs gallops or rubs. ABDOMEN: Soft and nontender with normal bowel sounds. SKIN: Skin is clear with no lesions or rashes and otherwise unremarkable. NEUROLOGIC: Patient is alert and oriented x3. Cranial nerves II through XII are grossly intact. Motor and sensory are also intact. Normal speech, volume and content. Symmetrical smile. MUSCULOSKELETAL: Normal extremities with adequate strength and full range of motion. LYMPHATICS: No significant lymphadenopathy is noted PSYCHIATRIC: Normal psychiatric evaluation. Course Vital Signs 09/10/20 12:05 Temperature 98.0 F Pulse Rate 59 L Respiratory 17 Rate Blood Pressure 174/63 O2 Sat by Pulse 94 L Oximetry Medical Decision Making - Medical Decision Making EKG shows paced rhythm at 60 bpm IA interval 288 QRSs 190 QTC is 556 QT in tervals 556. Patient will episodes of vomiting while in the emergency department she was able to tolerate by mouth food. Patient was not having any abdominal pain throughout her ED stay. Patient states she believes it's more that food doesn't quality down and she doesn't chew well. - Lab Data Result diagrams: 09/10/20 13:03 09/10/20 13:03 Lab Results 09/10/20 09/10/20 Range/Units 13:03 13:03 WBC 5.1 (3.8-10.6) k/uL RBC 4.66 (3.80-5.40) m/uL Hgb 13.6 (11.4-16.0) gm/dL Hct 40.6 (34.0-46.0) % MCV 87.2 (80.0-100.0) fL MCH 29.1 (25.0-35.0) pg MCHC 33.4 (31.0-37.0) g/dL RDW 12.8 (11.5-15.5) % Plt Count 121 L (150-450) k/uL MPV 7.5 Neutrophils % 69 % Lymphocytes % 18 % Monocytes % 7 % Eosinophils % 4 % Basophils % 1 % Neutrophils # 3.5 (1.3-7.7) k/uL Lymphocytes # 0.9 L (1.0-4.8) k/uL Monocytes # 0.4 (0-1.0) k/uL Eosinophils # 0.2 (0-0.7) k/uL Basophils # 0.1 (0-0.2) k/uL Sodium 140 (137-145) mmol/L Potassium 4.3 (3.5-5.1) mmol/L Chloride 103 (98-107) mmol/L Carbon Dioxide 32 H (22-30) mmol/L Anion Gap 5 mmol/L BUN 26 H (7-17) mg/dL Creatinine 1.32 H (0.52-1.04) mg/dL Est GFR (CKD-EPI)AfAm 45 (>60 ml/min/1.73 sqM) Est GFR (CKD-EPI)NonAf 39 (>60 ml/min/1.73 sqM) Glucose 271 H (74-99) mg/dL Calcium 9.0 (8.4-10.2) mg/dL Total Bilirubin 0.6 (0.2-1.3) mg/dL AST 18 (14-36) U/L ALT 11 (4-34) U/L Alkaline Phosphatase 93 (38-126) U/L Total Protein 5.7 L (6.3-8.2) g/dL Albumin 3.6 (3.5-5.0) g/dL Amylase 41 (30-110) U/L Lipase 53 (23-300) U/L Disposition Clinical Impression: Dysphagia, Vomiting Disposition: HOME SELF-CARE Condition: Good Instructions (If sedation given, give patient instructions): Dysphagia (ED) Is patient prescribed a controlled substance at d/c from ED?: No Referrals: Vikram Zamarripa MD [Primary Care Provider] - 1-2 days Time of Disposition: 13:41
[2020-09-10 13:24] LABS: Basophils # (A) 0.1 k/uL (0-0.2); Basophils % (A) 1 %; Eosinophils # (A) 0.2 k/uL (0-0.7); Eosinophils % (A) 4 %; HCT 40.6 % (34.0-46.0); HGB 13.6 gm/dL (11.4-16.0); Lymphocytes # (A) 0.9 k/uL (1.0-4.8); Lymphocytes % (A) 18 %; MCH 29.1 pg (25.0-35.0); MCHC 33.4 g/dL (31.0-37.0); MCV 87.2 fL (80.0-100.0); Mean Platelet Volume 7.5; Monocytes # (A) 0.4 k/uL (0-1.0); Monocytes % (A) 7 %; Neutrophils # (A) 3.5 k/uL (1.3-7.7); Neutrophils % (A) 69 %; Platelet Count 121 k/uL (150-450); RBC 4.66 m/uL (3.80-5.40); RDW 12.8 % (11.5-15.5); WBC 5.1 k/uL (3.8-10.6)
[2020-09-10 13:34] LABS: Albumin 3.6 g/dL (3.5-5.0); Potassium 4.3 mmol/L (3.5-5.1); Total Bilirubin 0.6 mg/dL (0.2-1.3); Total Protein 5.7 g/dL (6.3-8.2)
[2020-09-10 15:27] VITALS: BP 154/74; PULSE 74; RESP 18; TEMP 98.2
== END 2020-09-10 14:00 | disposition home or self-care (01) ==
LOC: EC 12:02
DX: R13.10 Dysphagia, unspecified (principal); R11.10 Vomiting, unspecified; R19.7 Diarrhea, unspecified; I13.0 Hypertensive heart and chronic kidney disease with heart failure and stage 1 through stage 4 chronic kidney disease, or unspecified chronic kidney disease; I50.9 Heart failure, unspecified; N18.30 Chronic kidney disease, stage 3 unspecified; E11.22 Type 2 diabetes mellitus with diabetic chronic kidney disease; E11.40 Type 2 diabetes mellitus with diabetic neuropathy, unspecified; J45.909 Unspecified asthma, uncomplicated; I48.91 Unspecified atrial fibrillation; I25.10 Atherosclerotic heart disease of native coronary artery without angina pectoris; G40.909 Epilepsy, unspecified, not intractable, without status epilepticus; M19.90 Unspecified osteoarthritis, unspecified site; F32.9 Major depressive disorder, single episode, unspecified; Z86.73 Personal history of transient ischemic attack (TIA), and cerebral infarction without residual deficits; Z79.84 Long term (current) use of oral hypoglycemic drugs
CPT/HCPCS: 36415; 80053; 82150; 83690; 85025; 93005; 99284

== ENCOUNTER 2020-09-17 15:10 | Observation (INO) | payer MEDICARE ==
[2020-09-17] MEDS ORDERED: SODIUM CHLORIDE 0.9% 500 ML 500 ML IV STA (15:21)
--- NOTE | 2020-09-17 15:28 | ED ---
General Adult HPI - General Chief complaint: Nausea/Vomiting/Diarrhea Stated complaint: Nausea/Vomiting/Diarrhea Source: patient, EMS, RN notes reviewed, old records reviewed Mode of arrival: EMS Limitations: no limitations - History of Present Illness Initial comments: 75-year-old white female, alert and oriented 4, presents to the emergency room with complaints of difficulty swallowing for 1 month intermittent nausea vomiting and diarrhea for 1 month. Patient states that she seen Dr. Zamarripa last week and was diagnosed with a urinary tract infection and put on antibiot ics 4 days ago. She states that the abdominal pain is "medium" but gone at this time. She denies any hematochezia or hematemesis. Describes her vomit as food in her stool as liquid brown. -: month(s) (1) Severity scale (1-10): 0 Consistency: intermittent Improves with: medication (Zofran) Associated Symptoms: other (Difficulty swallowing, on antibiotics for UTI for the past 4 days) Treatments Prior to Arrival: other (Zofran) - Related Data Home Medications Medication Instructions Recorded Confirmed Ferrous Sulfate [Iron (65 MG 325 mg PO DAILY 03/27/18 09/17/20 Elemental)] levETIRAcetam [Keppra] 500 mg PO BID 07/21/18 09/17/20 Cyanocobalamin [Vitamin B-12] 500 mcg PO DAILY 01/11/19 09/17/20 Nystatin 100,000 Unit/gm Powd 1 applic TOPICAL BID PRN 09/16/19 09/17/20 [Mycostatin Powder] hydrALAZINE HCL [Apresoline] 25 mg PO BID@0800,2000 09/16/19 09/17/20 Calcium Carbonate [Calcium] 600 mg PO DAILY 12/19/19 09/17/20 Escitalopram Oxalate [Lexapro] 20 mg PO DAILY 12/19/19 09/17/20 Pantoprazole [Protonix] 40 mg PO DAILY 12/19/19 09/17/20 Ciprofloxacin HCl [Cipro] 500 mg PO BID 09/17/20 09/17/20 QUEtiapine [SEROquel] 25 mg PO BID@0900,1200 09/17/20 09/17/20 metFORMIN HCL [Glucophage] 500 mg PO BID 09/17/20 09/17/20 Previous Rx's Medication Instructions Recorded Atorvastatin [Lipitor] 40 mg PO HS #90 tab 06/07/18 Clopidogrel [Plavix] 75 mg PO DAILY #90 tab 06/07/18 Nitroglycerin Sl Tabs [Nitrostat] 0.4 mg SUBLINGUAL Q5M PRN tab 07/30/18 QUEtiapine [SEROquel] 100 mg PO HS 30 Days #30 tab 04/13/19 amLODIPine [Norvasc] 5 mg PO DAILY 90 Days #90 tab 12/22/19 Allergies Allergy/AdvReac Type Severity Reaction Status Date / Time Latex, Natural Rubber Allergy Itching Verified 09/17/20 15:20 sulfamethoxazole Allergy Rash/Hives Verified 09/17/20 15:20 [From Bactrim] trimethoprim [From Bactrim] Allergy Rash/Hives Verified 09/17/20 15:20 Review of Systems ROS Statement: Those systems with pertinent positive or pertinent negative responses have been documented in the HPI. ROS Other: All systems not noted in ROS Statement are negative. 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 History of Any Multi-Drug Resistant Organisms: MRSA Date of last positivie culture/infection: 01/26/19 MDRO Source:: URINE Past Surgical History: Cholecystectomy, Heart Catheterization, Heart Catheterization With Stent, Hysterectomy, Pacemaker Additional Past Surgical History / Comment(s): Evacuation of intracranial hematoma and ressection of hemorrhagic mass, pacemaker 2016, PCI with stent 06/06/18, EGD/colonoscopy, R eye corneal implant/cataract removal, EGD 06/2018, colonoscopy, skin cancer removal. Past Anesthesia/Blood Transfusion Reactions: No Reported Reaction Additional Past Anesthesia/Blood Transfusion Reaction / Comment(s): . Date of Last Stent Placement:: 06/06/18 Type of Cardiac Device: Permanent Pacemaker Device Placement Date:: 04/2016 Past Psychological History: Depression Smoking Status: Never smoker - Past Family History Mother Family Medical History: Cancer, COPD, Hypertension Additional Family Medical History / Comment(s): Mother had bone cancer. Father Family Medical History: Cancer, Hypertension Additional Family Medical History / Comment(s): Father had skin cancer. General Exam Limitations: no limitations General appearance: alert, in no apparent distress Head exam: Present: atraumatic, normocephalic, normal inspection Eye exam: Present: normal appearance, PERRL, EOMI. Absent: scleral icterus, conjunctival injection, periorbital swelling Pupils: Present: normal accommodation ENT exam: Present: normal exam, normal oropharynx, mucous membranes moist Neck exam: Present: normal inspection, full ROM. Absent: tenderness, meningismus, lymphadenopathy, thyromegaly Respiratory exam: Present: normal lung sounds bilaterally. Absent: respiratory distress, wheezes, rales, rhonchi, stridor, chest wall tenderness, accessory muscle use, decreased breath sounds, prolonged expiratory Cardiovascular Exam: Present: regular rate, normal rhythm, normal heart sounds. Absent: systolic murmur, diastolic murmur, rubs, gallop, clicks GI/Abdominal exam: Present: soft, normal bowel sounds. Absent: distended, tenderness, guarding, rebound, rigid, mass Extremities exam: Present: normal inspection, full ROM, normal capillary refill. Absent: tenderness, pedal edema, joint swelling, calf tenderness Back exam: Present: normal inspection. Absent: tenderness, CVA tenderness (R), CVA tenderness (L), muscle spasm, paraspinal tenderness, vertebral tenderness, rash noted Neurological exam: Present: alert, oriented X3, CN II-XII intact, normal gait (With walker) Psychiatric exam: Present: normal affect, normal mood Skin exam: Present: warm, dry, intact, normal color. Absent: rash, cyanosis, diaphoretic, erythema, petechiae, pallor, mottled Course Vital Signs 09/17/20 09/17/20 09/17/20 15:14 15:30 16:00 Temperature 98.2 F Pulse Rate 60 62 Respiratory 18 Rate Blood Pressure 146/51 146/51 140/39 O2 Sat by Pulse 95 96 Oximetry 09/17/20 16:30 Temperature Pulse Rate 60 Respiratory 18 Rate Blood Pressure 166/69 O2 Sat by Pulse 96 Oximetry EKG Findings - EKG Results: EKG: interpreted by ERMD (AV pacer, ventricular rate of 60, MN interval 0.188, QRS 0.194, QTC 0.568) Medical Decision Making - Medical Decision Making KUB x-ray shows no sign of intestinal obstruction or pneumoperitoneum. There is no evidence of an abdominal mass and lung bases are clear. WBC count is 5.9, hemoglobin and hematocrit is 13 and 42 respectively, lactic acid is 3.6 and patient was given 1500 mL of normal saline. Repeat lactic acid was 2.5. Creatinine is 1.32 which is consistent with her previous labs. UA shows trace leukocyte esterase 8 WBCs negative nitrates and positive ketones, patient was given a gram of Rocephin IV push.. ekg AV paced No significant changes since 09/10/2020. Patient will be admitted to the hospital for lactic acidosis and dysphagia. We'll continue treating her urinary tract infection. Case discussed with Dr. Lafleur. Dr. Zamarriap notified admit and GI consult placed to his request. - Lab Data Result diagrams: 09/17/20 15:25 09/17/20 15:25 Lab Results 09/17/20 09/17/20 09/17/20 Range/Units 15:25 15:25 15:25 WBC 5.9 (3.8-10.6) k/uL RBC 4.79 (3.80-5.40) m/uL Hgb 13.6 (11.4-16.0) gm/dL Hct 42.6 (34.0-46.0) % MCV 89.0 (80.0-100.0) fL MCH 28.3 (25.0-35.0) pg MCHC 31.9 (31.0-37.0) g/dL RDW 13.4 (11.5-15.5) % Plt Count 146 L (150-450) k/uL MPV 7.9 Neutrophils % 62 % Lymphocytes % 27 % Monocytes % 6 % Eosinophils % 3 % Basophils % 1 % Neutrophils # 3.6 (1.3-7.7) k/uL Lymphocytes # 1.6 (1.0-4.8) k/uL Monocytes # 0.4 (0-1.0) k/uL Eosinophils # 0.2 (0-0.7) k/uL Basophils # 0.0 (0-0.2) k/uL Sodium 141 (137-145) mmol/L Potassium 4.6 (3.5-5.1) mmol/L Chloride 106 (98-107) mmol/L Carbon Dioxide 27 (22-30) mmol/L Anion Gap 8 mmol/L BUN 24 H (7-17) mg/dL Creatinine 1.32 H (0.52-1.04) mg/dL Est GFR (CKD-EPI)AfAm 45 (>60 ml/min/1.73 sqM) Est GFR (CKD-EPI)NonAf 39 (>60 ml/min/1.73 sqM) Glucose 229 H (74-99) mg/dL Plasma Lactic Acid Hema 3.6 H* (0.7-2.0) mmol/L Calcium 8.7 (8.4-10.2) mg/dL Total Bilirubin 0.6 (0.2-1.3) mg/dL AST 23 (14-36) U/L ALT 12 (4-34) U/L Alkaline Phosphatase 81 (38-126) U/L Troponin I (0.000-0.034) ng/mL Total Protein 5.9 L (6.3-8.2) g/dL Albumin 3.7 (3.5-5.0) g/dL Amylase 51 (30-110) U/L Lipase 65 (23-300) U/L Urine Color Urine Appearance (Clear) Urine pH (5.0-8.0) Ur Specific [place] (1.001-1.035) Urine Protein (Negative) Urine Glucose (UA) (Negative) Urine Ketones (Negative) Urine Blood (Negative) Urine Nitrite (Negative) Urine Bilirubin (Negative) Urine Urobilinogen (<2.0) mg/dL Ur Leukocyte Esterase (Negative) Urine RBC (0-5) /hpf Urine WBC (0-5) /hpf Ur Squamous Epith Cells (0-4) /hpf Hyaline Casts (0-2) /lpf Urine Mucus (None) /hpf 09/17/20 09/17/20 09/17/20 Range/Units 15:31 17:46 17:46 WBC (3.8-10.6) k/uL RBC (3.80-5.40) m/uL Hgb (11.4-16.0) gm/dL Hct (34.0-46.0) % MCV (80.0-100.0) fL MCH (25.0-35.0) pg MCHC (31.0-37.0) g/dL RDW (11.5-15.5) % Plt Count (150-450) k/uL MPV Neutrophils % % Lymphocytes % % Monocytes % % Eosinophils % % Basophils % % Neutrophils # (1.3-7.7) k/uL Lymphocytes # (1.0-4.8) k/uL Monocytes # (0-1.0) k/uL Eosinophils # (0-0.7) k/uL Basophils # (0-0.2) k/uL Sodium (137-145) mmol/L Potassium (3.5-5.1) mmol/L Chloride (98-107) mmol/L Carbon Dioxide (22-30) mmol/L Anion Gap mmol/L BUN (7-17) mg/dL Creatinine (0.52-1.04) mg/dL Est GFR (CKD-EPI)AfAm (>60 ml/min/1.73 sqM) Est GFR (CKD-EPI)NonAf (>60 ml/min/1.73 sqM) Glucose (74-99) mg/dL Plasma Lactic Acid Hema 2.5 H* (0.7-2.0) mmol/L Calcium (8.4-10.2) mg/dL Total Bilirubin (0.2-1.3) mg/dL AST (14-36) U/L ALT (4-34) U/L Alkaline Phosphatase (38-126) U/L Troponin I <0.012 (0.000-0.034) ng/mL Total Protein (6.3-8.2) g/dL Albumin (3.5-5.0) g/dL Amylase (30-110) U/L Lipase (23-300) U/L Urine Color Yellow Urine Appearance Cloudy H (Clear) Urine pH 5.5 (5.0-8.0) Ur Specific [place] 1.033 (1.001-1.035) Urine Protein 1+ H (Negative) Urine Glucose (UA) 2+ H (Negative) Urine Ketones Trace H (Negative) Urine Blood Negative (Negative) Urine Nitrite Negative (Negative) Urine Bilirubin Negative (Negative) Urine Urobilinogen 2.0 (<2.0) mg/dL Ur Leukocyte Esterase Trace H (Negative) Urine RBC 3 (0-5) /hpf Urine WBC 8 H (0-5) /hpf Ur Squamous Epith Cells 3 (0-4) /hpf Hyaline Casts 9 H (0-2) /lpf Urine Mucus Few H (None) /hpf Disposition Clinical Impression: Lactic acidosis, Dysphagia, Urinary tract infection Disposition: ADMITTED IP TO THIS HOSP Condition: Fair Referrals: Vikram Zamarripa MD [Primary Care Provider] - 1-2 days Decision Date: 09/17/20 Decision Time: 18:45
[2020-09-17 15:34] LABS: Basophils % (A) 1 %; Eosinophils # (A) 0.2 k/uL (0-0.7); Eosinophils % (A) 3 %; HCT 42.6 % (34.0-46.0); HGB 13.6 gm/dL (11.4-16.0); Lymphocytes # (A) 1.6 k/uL (1.0-4.8); Lymphocytes % (A) 27 %; MCH 28.3 pg (25.0-35.0); MCHC 31.9 g/dL (31.0-37.0); Mean Platelet Volume 7.9; Monocytes # (A) 0.4 k/uL (0-1.0); Monocytes % (A) 6 %; Neutrophils # (A) 3.6 k/uL (1.3-7.7); Neutrophils % (A) 62 %; Platelet Count 146 k/uL (150-450); RBC 4.79 m/uL (3.80-5.40); RDW 13.4 % (11.5-15.5); WBC 5.9 k/uL (3.8-10.6)
[2020-09-17 15:47] LABS: Appearance,Urine Cloudy (Clear); Bilirubin,Urine Negative (Negative); Blood,Urine Negative (Negative); Color,Urine Yellow; Glucose,Urine (UA) 2+ (Negative); Hyaline Casts,Urine 9 /lpf (0-2); Ketones,Urine Trace (Negative); Leukocyte Esterase,Urine Trace (Negative); Mucus,Urine Few /hpf; Nitrite,Urine Negative (Negative); PH, Urine 5.5 (5.0-8.0); Protein,Urine 1+ (Negative); RBC,Urine 3 /hpf (0-5); Specific Gravity,Urine 1.033 (1.001-1.035); Squamous Epithelial Cell,Urine 3 /hpf (0-4); WBC,Urine 8 /hpf (0-5)
[2020-09-17 15:54] LABS: Albumin 3.7 g/dL (3.5-5.0); Calcium 8.7 mg/dL (8.4-10.2); Total Bilirubin 0.6 mg/dL (0.2-1.3); Total Protein 5.9 g/dL (6.3-8.2)
[2020-09-17 16:01] LABS: Potassium 4.6 mmol/L (3.5-5.1)
--- NOTE | 2020-09-17 16:26 | XR ---
EXAMINATION TYPE: XR KUB DATE OF EXAM: 09/17/2020 COMPARISON: 07/17/2017 HISTORY: Abdominal pain TECHNIQUE: 2 views upright FINDINGS: There is no sign of intestinal obstruction or pneumoperitoneum. Fecal pattern is normal. Th ere are clips from cholecystectomy. There is no evidence of abdominal mass. Lung bases are clear. IMPRESSION: Nonacute abdomen.
[2020-09-17] MEDS ORDERED: SODIUM CHLORIDE 0.9% 1,000 ML IV ONE (16:31)
[2020-09-17] MEDS ORDERED: NALOXONE 0.4 MG/ML 1 ML VIAL IV PRN ×2 (18:41→19:34)
[2020-09-17] MEDS ORDERED: cefTRIAXone IN SWFI 1,000 MG/10 ML SYRINGE IVP STA (18:44)
[2020-09-17] MEDS: SODIUM CHLORIDE 0.9% 1,000 ML IV SCH (19:07)
--- NOTE | 2020-09-17 19:10 | CT ---
EXAMINATION TYPE: CT abdomen pelvis wo con DATE OF EXAM: 09/17/2020 COMPARISON: 10/14/2019 HISTORY: nausea, vomiting CT DLP: 1005.9 mGycm Automated exposure control for dose reduction was used. Images obtained from the diaphragm to the floor the pelvis with no contrast. Lung bases are clear of infiltrate. There is no pleural effusion. Heart size is fairly normal. There is no pericardial effusion. There are clips from cholecystectomy. Liver and spleen appear intact. The re are small calcifications in the spleen. There is no pancreatic mass. The stomach is intact. The bi le ducts are not dilated. There is no adrenal mass. Kidneys have normal size. There is no hydronephrosis. Ureters are not dilat ed. There is no retroperitoneal adenopathy. There is small umbilical hernia that contains fat. This m easures 2 cm. Bladder distends smoothly. There is no inguinal hernia. There is no free fluid in the pelvis. There i s no mesenteric edema. There is no ascites or free air. I see no evidence of a bowel obstruction. Melani endix is not seen. There is no sign of thickened appendix. There is atherosclerotic vascular calcific ation. Lumbar vertebra have fairly normal alignment. There is 15-20% compression deformity of L3 and L1 that appear old. The bony pelvis is intact. The hip joints appear intact. There is no hip dysplasia. IMPRESSION: No sign of acute abdomen and pelvis. Old lumbar spine compression fractures. Stable umbilical hernia.
[2020-09-17 19:57] LABS: Glucose,Whole Blood 191 mg/dL (75-99)
[2020-09-17] MEDS ORDERED: NITROGLYCERIN SL TABS 0.4 MG TAB SUBLINGUAL PRN (20:18)
[2020-09-17] MEDS: metFORMIN 500 MG TAB PO SCH (21:03)
[2020-09-17] MEDS: ATORVASTATIN 40 MG TAB PO SCH (21:03)
[2020-09-17] MEDS: QUEtiapine 100 MG TAB PO SCH (21:03)
[2020-09-17] MEDS: levETIRAcetam 500 MG TAB PO SCH (21:03)
[2020-09-17] MEDS: CIPROFLOXACIN HCL 500 MG TAB PO SCH (21:11)
[2020-09-18 07:44] LABS: Glucose,Whole Blood 194 mg/dL (75-99)
--- NOTE | 2020-09-18 08:16 | HP ---
HISTORY AND PHYSICAL A 75-year-old white female states she has been having much diarrhea lately that made her dehydrated, confused, positive UTI, difficulty swallowing for the past month or so. She was given some Rocephin in the ER for positive urinary tract infection. We will get a GI consult for esophageal dysmobility and check her thyroid levels. MEDICATIONS: Include vitamin B12, hydralazine 25 mg b.i.d., nystatin powder 25,000 units topically b.i.d., Lexapro 20 daily, calcium carbonate 600 daily, Protonix 40 daily, Cipro 500 b.i.d., Seroquel 25 b.i.d., metformin 500 b.i.d. ALLERGIES: LATEX, SULFA, BACTRIM. REVIEW OF SYSTEMS: Fourteen-point review of systems negative except mentioned in HPI. PAST MEDICAL HISTORY: Atrial fibrillation, asthma, coronary artery disease, cancer, heart failure, diabetes mellitus, eye disorder, hypertension, osteoarthritis, renal disease, seizure disorder, history of a GI bleed, pacemaker, compression fracture, chronic kidney disease stage 3, blind in her left eye, lower GI bleed, gastritis, gastric erosions. PAST SURGICAL HISTORY: Cholecystectomy, heart catheterization with stent, hysterectomy, pacemaker. PAST FAMILY HISTORY: Cancer, COPD, hypertension. Father with cancer and hypertension. PHYSICAL EXAMINATION: VITAL SIGNS: Stable, afebrile. Temperature 98.2, pulse 60 to 62, respiratory 16 to 18, blood pressure is 140s over 50s, O2 96, CARDIOVASCULAR: S1, S2. LUNGS: Scattered rhonchi and wheeze. HEMATOLOGY: Negative Homans. PSYCH: Fair mood and affect. NEUROLOGIC: Alert and orient x3. OPHTHALMOLOGIC: Pupils equal, round, reactive. PSYCH: Giving appropriate answers. INTEGUMENT: No rash, excoriations. LABORATORY DATA: BUN 24, creatinine 1.32. White count 5.0, hemoglobin 13.6. KUB is negative. Lactic acid 2.5 down from 3.3, creatinine is 1.32. PLAN: Giving Rocephin for UTI, lactic acidosis, diarrhea is unclear etiology. Will get GI to see her for the diarrhea as well as esophageal dysmobility. Prognosis guarded, follow up in the next 24 to 48 hours. GI consult. Possible Infectious Disease. PT OT. MMODL / IJN: [id number] /
[2020-09-18] MEDS: SODIUM CHLORIDE 0.9% 1,000 ML IV SCH (09:05)
[2020-09-18] MEDS: QUEtiapine 25 MG TAB PO SCH ×2 (09:33→15:56)
[2020-09-18] MEDS: hydrALAZINE HCL 25 MG TAB PO SCH ×2 (09:33→19:35)
[2020-09-18] MEDS: metFORMIN 500 MG TAB PO SCH ×2 (09:33→17:34)
[2020-09-18] MEDS: amLODIPine 5 MG TAB PO SCH (09:34)
[2020-09-18] MEDS: PANTOPRAZOLE 40 MG TABLET PO SCH (09:34)
[2020-09-18] MEDS: ESCITALOPRAM 20 MG TAB PO SCH (09:34)
[2020-09-18] MEDS: levETIRAcetam 500 MG TAB PO SCH ×2 (09:34→19:35)
[2020-09-18] MEDS: FERROUS SULFATE 325 MG TAB PO SCH (09:34)
[2020-09-18] MEDS: CALCIUM CARB-VIT D 500 MG-5 MCG TAB PO SCH (09:34)
[2020-09-18] MEDS: CIPROFLOXACIN HCL 500 MG TAB PO SCH ×2 (09:34→19:35)
[2020-09-18] MEDS: CYANOCOBALAMIN 500 MCG TAB PO SCH (09:34)
[2020-09-18] MEDS: CLOPIDOGREL 75 MG TAB PO SCH (09:34)
[2020-09-18 09:51] LABS: Basophils # (A) 0.03 X 10*3/uL (0.00-0.10); Basophils % (A) 0.6 %; Eosinophils % (A) 3.8 %; HCT 39.1 % (37.2-46.3); HGB 11.9 g/dL (12.0-15.0); Lymphocytes # (A) 1.35 X 10*3/uL (0.90-5.00); Lymphocytes % (A) 25.6 %; MCH 27.9 pg (27.0-32.0); MCHC 30.4 g/dL (32.0-37.0); MCV 91.8 fL (80.0-97.0); Mean Platelet Volume 10.8 fL (9.5-12.2); Monocytes # (A) 0.56 X 10*3/uL (0.20-1.00); Monocytes % (A) 10.6 %; Neutrophils # (A) 3.08 X 10*3/uL (1.80-7.70); Neutrophils % (A) 58.5 %; Platelet Count 133 X 10*3/uL (140-440); RBC 4.26 X 10*6/uL (4.10-5.20); RDW 12.6 % (11.5-14.5); WBC 5.27 X 10*3/uL (4.50-10.00)
[2020-09-18 09:53] LABS: African American GFR (CKD) 46.1 (60.0-200.0); Albumin 3.6 g/dL (3.80-4.90); Albumin/Globulin Ratio 2.4 (1.60-3.17); Anion Gap 5.4 mmol/L (4.00-12.00); BUN/Creat Ratio 13.08 Ratio (12.00-20.00); Calcium 8.1 mg/dL (8.7-10.3); Carbon Dioxide 29.6 mmol/L (21.6-31.8); Globulin 1.5 g/dL (1.6-3.3); Non-African American GFR(CKD) 39.8 (60.0-200.0); Total Bilirubin 0.4 mg/dL (0.2-1.2); Total Protein 5.1 g/dL (6.2-8.2)
[2020-09-18 12:07] LABS: Glucose,Whole Blood 238 mg/dL (75-99)
--- NOTE | 2020-09-18 16:30 | P.PN ---
Progress Note - Text Progress Note Date: 09/18/20 Interval history: Patient admitted with nausea vomiting diarrhea for about a month. Also some w eight loss. September 18: Patient not having any more diarrhea. Last time patient vomited was on Saturday that is 2 days ago. Did tolerate a soft breakfast today. Feeling a bit better. Review of systems: Was done for constitutional, cardiovascular, GI, pulmonary. relevant finding as above On examination: VITAL SIGNS: 98, 61, 16, 148.72, 93% room air GENERAL APPEARANCE: BMI 34.2, laying in bed, but tired. HEENT: Normal external appearance of nose and ear. Oral cavity normal EYES: Pupils equal. Conjunctiva normal. NECK: JVD not raised. Mass not palpable. RESPIRATORY: Respiratory effort normal. Lungs clear to auscultation. CARDIOVASCULAR: First and second sounds normal. No edema. ABDOMEN: Soft. Liver and spleen not palpable. No tenderness. No mass palpable. PSYCHIATRY: Alert and oriented x3. Mood and affect normal. INVESTIGATIONS, reviewed in the clinical context: WBC 5.2 hemoglobin 11.9 platelets 133 potassium 4 creatinine 1.3 Computed tomography scan of the abdomen pelvis: Or lumbar spine compression fracture. Stable umbilical hernia. Assessment and plan: -Patient said intermittent nausea vomiting diarrhea for about a month. With some weight loss. No diarrhea. Last 2 days. Lasts vomiting was also 2 days ago. Patient tolerating a diet. -Persistent atrial fibrillation Telemetry -Permanent pacemaker -Coronary artery disease, with stent, 2018 Amlodipine, Lipitor, Plavix, -Diabetes mellitus type 2, on oral hypoglycemic Metformin. Follow Accu-Cheks -Essential hypertension Norvasc, hydralazine -Primary osteoarthritis Use pain medications as needed -Hyperlipidemia On Lipitor -Peripheral neuropathy -L1 L3, chronic compression fracture -Blind left eye -Anxiety depression On Lexapro, Seroquel -Chronic gait dysfunction uses a walker at her baseline -GERD Protonix -History of seizure following brain surgery On Keppra Patient appetite is improving. Doing better. Continue current medication. Hopefully can be discharged soon. GI was consulted.
[2020-09-18 17:09] LABS: Glucose,Whole Blood 204 mg/dL (75-99)
[2020-09-18] MEDS: ENOXAPARIN 40 MG/0.4 ML SYRINGE SQ SCH (17:34)
[2020-09-18] MEDS: QUEtiapine 100 MG TAB PO SCH (19:35)
[2020-09-18] MEDS: ATORVASTATIN 40 MG TAB PO SCH (19:35)
[2020-09-18 20:12] LABS: Glucose,Whole Blood 243 mg/dL (75-99)
[2020-09-18] MEDS: ACETAMINOPHEN TAB 325 MG TAB PO PRN (23:14)
--- NOTE | 2020-09-19 07:26 | P.CONS ---
History of Present Illness - Reason for Consult Consult date: 09/18/20 Difficulty swallowing, diarrhea Requesting physician: Vikram Zamarripa - Chief Complaint Diarrhea, nausea and vomiting - History of Present Illness 72-year-old female with multiple medical comorbidities including coronary artery disease, diabetes mellitus, resting tremors who presented to the hospital due to nausea, vomiting and diarrhea. She reports once a month of symptoms of intermittent nausea and vomiting. She reports 3-4 loose bowel movements daily. Generally bowel movements are once daily and normal in color and consistency. She does report intermittent difficulty swallowing. She's had previous complaints in the past with x-ray swallow at that time suggestive of cricopharyngeal dysphagia. She underwent EGD for evaluation on 12/21/19 with findings of mild gastritis, small hiatal hernia and some tightness noted in the upper esophageal sphincter suggestive of cricopharyngeal dysphagia. Recently the patient had urinary tract infection was treated with antibiotic therapy. She denies any signs or symptoms of GI bleeding at this time. Review of Systems REVIEW OF SYSTEMS: CONSTITUTIONAL: Denies any fevers, chills, weight change or fatigue. CARDIOVASCULAR: Denies any chest pain, palpitations high or low blood pressures RESPIRATORY: Denies any shortness of breath, hemoptysis or cough. GENITOURINARY: No dysuria or hematuria, recent treatment of urinary tract infection. MUSCULOSKELETAL: No weakness reported. SKIN: Denies any new rashes or lesions, jaundice or pallor. PSYCHIATRIC: Denies any depression or anxiety. NEUROLOGY: Denies headache, denies any new focal deficits. EARS/NOSE/THROAT: No recent hearing change, congestion, nasal discharge or sore throat. EYES: No pain in eyes, discharge or change in vision. GASTROINTESTINAL: As per HPI. Past Medical History Past Medical History: Atrial Fibrillation, Asthma, Coronary Artery Disease (CAD), Cancer, Heart Failure, CVA/TIA, Diabetes Mellitus, Eye Disorder, Hypertension, Osteoarthritis (OA), Renal Disease, Seizure Disorder Additional Past Medical History / Comment(s): Brain mass/fall with intracranial bleed/hematome-surgery at [facility], seizure after brain surgery, paroxysmal Afib, IDDM type II, neuropathy bilateral feet, orthostatic hy potension, SSS with pacemaker, L1 compression fx, CKD stage III, blind in L eye, UTIs, lower GI bleed, gastritis, gastric erosion, CDiff colitis, skin cancer with removals, past L arm fracture, past R arm fracture x2. History of Any Multi-Drug Resistant Organisms: MRSA Year Discovered:: 01/26/19 MDRO Source:: URINE Past Surgical History: Cholecystectomy, Heart Catheterization, Heart Catheterization With Stent, Hysterectomy, Pacemaker Additional Past Surgical History / Comment(s): Evacuation of intracranial hematoma and ressection of hemorrhagic mass, pacemaker 2016, PCI with stent 06/06/18, EGD/colonoscopy, R eye corneal implant/cataract removal, EGD 06/2018, colonoscopy, skin cancer removal. Past Anesthesia/Blood Transfusion Reactions: No Reported Reaction Additional Past Anesthesia/Blood Transfusion Reaction / Comm: . Date of Last Stent Placement:: 06/06/18 Type of Cardiac Device: Permanent Pacemaker Device Placement Date:: 04/2016 Past Psychological History: Anxiety, Depression Additional Psychological History / Comment(s): Pt has her son and daughter in law living with her. She uses a walker and has a wheelchair for longer distaces. She no longer drives, her [facility]. Her son manages her medications. Daughter in law cooks. Pt states her depression has been increased intermittently but denies any thoughts/plans of suicide. Smoking Status: Never smoker Past Alcohol Use History: None Reported Past Drug Use History: None Reported - Past Family History Mother Family Medical History: Cancer, COPD, Hypertension Additional Family Medical History / Comment(s): Mother had bone cancer. Father Family Medical History: Cancer, Hypertension Additional Family Medical History / Comment(s): Father had skin cancer. Medications and Allergies Home Medications Medication Instructions Recorded Confirmed Type Ferrous Sulfate [Iron (65 MG 325 mg PO DAILY 03/27/18 09/17/20 History Elemental)] Atorvastatin [Lipitor] 40 mg PO HS #90 tab 06/07/18 09/17/20 Rx Clopidogrel [Plavix] 75 mg PO DAILY #90 tab 06/07/18 09/17/20 Rx levETIRAcetam [Keppra] 500 mg PO BID 07/21/18 09/17/20 History Nitroglycerin Sl Tabs [Nitrostat] 0.4 mg SUBLINGUAL Q5M PRN tab 07/30/18 09/17/20 Rx Cyanocobalamin [Vitamin B-12] 500 mcg PO DAILY 01/11/19 09/17/20 History QUEtiapine [SEROquel] 100 mg PO HS 30 Days #30 tab 04/13/19 09/17/20 Rx Nystatin 100,000 Unit/gm Powd 1 applic TOPICAL BID PRN 09/16/19 09/17/20 History [Mycostatin Powder] hydrALAZINE HCL [Apresoline] 25 mg PO BID@0800,2000 09/16/19 09/17/20 History Calcium Carbonate [Calcium] 600 mg PO DAILY 12/19/19 09/17/20 History Escitalopram Oxalate [Lexapro] 20 mg PO DAILY 12/19/19 09/17/20 History Pantoprazole [Protonix] 40 mg PO DAILY 12/19/19 09/17/20 History amLODIPine [Norvasc] 5 mg PO DAILY 90 Days #90 tab 12/22/19 09/17/20 Rx Ciprofloxacin HCl [Cipro] 500 mg PO BID 09/17/20 09/17/20 History QUEtiapine [SEROquel] 25 mg PO BID@0900,1200 09/17/20 09/17/20 History metFORMIN HCL [Glucophage] 500 mg PO BID 09/17/20 09/17/20 History Allergies Allergy/AdvReac Type Severity Reaction Status Date / Time Latex, Natural Rubber Allergy Itching Verified 09/17/20 15:20 sulfamethoxazole Allergy Rash/Hives Verified 09/17/20 15:20 [From Bactrim] trimethoprim [From Bactrim] Allergy Rash/Hives Verified 09/17/20 15:20 Physical Exam Vitals: Vital Signs Temp Pulse Pulse Resp BP BP Pulse Ox 09/18/20 09:40 95 09/18/20 07:00 98.0 F 60 18 153/70 90 L 09/18/20 01:17 98.3 F 60 16 144/72 95 09/17/20 19:38 97.7 F 60 16 136/56 94 L 09/17/20 19:07 60 18 158/69 98 09/17/20 18:30 94 L 09/17/20 17:30 61 18 168/65 97 09/17/20 17:00 153/65 96 09/17/20 16:30 60 18 166/69 96 09/17/20 16:00 140/39 96 09/17/20 15:30 62 146/51 09/17/20 15:14 98.2 F 60 18 146/51 95 Intake and Output 09/17/20 09/18/20 09/18/20 22:59 06:59 14:59 Other: Voiding Method Bedside Commode # Voids 1 1 Weight 86.636 kg 87.6 kg On physical examination, patient appears comfortable in no apparent distress. HEAD: Normocephalic, atraumatic. EYES: No scleral icterus. No conjunctival injection. MOUTH: No lesions, tongue midline. NECK: Trachea midline, no gross abnormalities. CHEST: Decreased air entry in all aly. HEART: S1-S2 appreciated. ABDOMEN: Soft, nontender to palpation. Bowel sounds are positive. No organomegaly. No guarding or rigidity. EXTREMITIES: No pedal edema. SKIN: No rashes, no jaundice. NEUROLOGIC: Alert and oriented x3. No focal deficits. Results CBC & Chem 7: 09/18/20 06:37 09/18/20 06:37 Labs: Abnormal Lab Results - Last 24 Hours (Table) 09/17/20 09/17/20 09/17/20 Range/Units 15:25 15:25 15:25 Hgb (12.0-15.0) g/dL MCHC (32.0-37.0) g/dL Plt Count 146 L (150-450) k/uL Immature Gran # (0.00-0.04) X 10*3/uL BUN 24 H (7-17) mg/dL Creatinine 1.32 H (0.52-1.04) mg/dL Est GFR (CKD-EPI)AfAm (60.0-200.0) Est GFR (CKD-EPI)NonAf (60.0-200.0) Glucose 229 H (74-99) mg/dL POC Glucose (mg/dL) (75-99) mg/dL Plasma Lactic Acid Hema 3.6 H* (0.7-2.0) mmol/L Calcium (8.7-10.3) mg/dL Total Protein 5.9 L (6.3-8.2) g/dL Albumin (3.80-4.90) g/dL Globulin (1.6-3.3) g/dL Urine Appearance (Clear) Urine Protein (Negative) Urine Glucose (UA) (Negative) Urine Ketones (Negative) Ur Leukocyte Esterase (Negative) Urine WBC (0-5) /hpf Hyaline Casts (0-2) /lpf Urine Mucus (None) /hpf 09/17/20 09/17/20 09/17/20 Range/Units 15:31 17:46 19:54 Hgb (12.0-15.0) g/dL MCHC (32.0-37.0) g/dL Plt Count (150-450) k/uL Immature Gran # (0.00-0.04) X 10*3/uL BUN (7-17) mg/dL Creatinine (0.52-1.04) mg/dL Est GFR (CKD-EPI)AfAm (60.0-200.0) Est GFR (CKD-EPI)NonAf (60.0-200.0) Glucose (74-99) mg/dL POC Glucose (mg/dL) 191 H (75-99) mg/dL Plasma Lactic Acid Hema 2.5 H* (0.7-2.0) mmol/L Calcium (8.7-10.3) mg/dL Total Protein (6.3-8.2) g/dL Albumin (3.80-4.90) g/dL Globulin (1.6-3.3) g/dL Urine Appearance Cloudy H (Clear) Urine Protein 1+ H (Negative) Urine Glucose (UA) 2+ H (Negative) Urine Ketones Trace H (Negative) Ur Leukocyte Esterase Trace H (Negative) Urine WBC 8 H (0-5) /hpf Hyaline Casts 9 H (0-2) /lpf Urine Mucus Few H (None) /hpf 09/18/20 09/18/20 09/18/20 Range/Units 06:37 06:37 07:43 Hgb 11.9 L (12.0-15.0) g/dL MCHC 30.4 L (32.0-37.0) g/dL Plt Count 133 L (150-450) k/uL Immature Gran # 0.05 H (0.00-0.04) X 10*3/uL BUN (7-17) mg/dL Creatinine (0.52-1.04) mg/dL Est GFR (CKD-EPI)AfAm 46.1 L (60.0-200.0) Est GFR (CKD-EPI)NonAf 39.8 L (60.0-200.0) Glucose 193 H (74-99) mg/dL POC Glucose (mg/dL) 194 H (75-99) mg/dL Plasma Lactic Acid Hema (0.7-2.0) mmol/L Calcium 8.1 L (8.7-10.3) mg/dL Total Protein 5.1 L (6.3-8.2) g/dL Albumin 3.60 L (3.80-4.90) g/dL Globulin 1.5 L (1.6-3.3) g/dL Urine Appearance (Clear) Urine Protein (Negative) Urine Glucose (UA) (Negative) Urine Ketones (Negative) Ur Leukocyte Esterase (Negative) Urine WBC (0-5) /hpf Hyaline Casts (0-2) /lpf Urine Mucus (None) /hpf CT scan - abdomen: report reviewed (Computed tomography scan of the abdomen with no acute intra-abdominal pathology, or lumbar compression fracture noted, stable umbilical hernia seen.) Assessment and Plan (1) Diarrhea Narrative/Plan: 75-year-old female with multiple medical comorbidities presenting for nausea, vomiting and diarrhea. Reporting 3-4 nonbloody bowel movements daily. Generally having 1 bowel movement per day in the past. Believes last colonoscopy was less than 10 years ago approximately 7-8 and normal. Last EGD in 12/21 for evaluation of dysphagia significant for hiatal hernia, gastritis and suspicion for cricopharyngeal dysphagia. No further loose bowel movements since presentation. Computed tomography scan of the abdomen negative for any acute intra-abdominal pathology. Unclear etiology, may be medication related to recent antibiotics, rule out infection or Clostridium difficile or other etiology . Current Visit: Yes Status: Acute Code(s): R19.7 - DIARRHEA, UNSPECIFIED SNOMED Code(s): 76356902 (2) Dysphagia Narrative/Plan: Long-standing history of esophageal dysphagia last investigated in 12/21 with EGD showing gastritis, hiatal hernia and some tightness in the upper esophageal sphincter suspicious for recurrent oropharyngeal dysphagia which had also been seen on x-ray imaging. Current Visit: Yes Status: Acute Code(s): R13.10 - DYSPHAGIA, UNSPECIFIED SNOMED Code(s): 35477752 Plan: Supportive care Okay for dysphagia diet as tolerated Aspiration precautions discussed Continue Protonix therapy Stool studies ordered Continue other medical management per primary team Thank you for allowing us to participate in the care of the patient
[2020-09-19 07:36] LABS: Glucose,Whole Blood 210 mg/dL (75-99)
[2020-09-19] MEDS: ENOXAPARIN 40 MG/0.4 ML SYRINGE SQ SCH (07:40)
[2020-09-19] MEDS: hydrALAZINE HCL 25 MG TAB PO SCH ×2 (07:40→20:58)
[2020-09-19] MEDS: amLODIPine 5 MG TAB PO SCH (07:41)
[2020-09-19] MEDS: QUEtiapine 25 MG TAB PO SCH ×2 (07:41→12:04)
[2020-09-19] MEDS: CYANOCOBALAMIN 500 MCG TAB PO SCH (07:41)
[2020-09-19] MEDS: CLOPIDOGREL 75 MG TAB PO SCH (07:41)
[2020-09-19] MEDS: metFORMIN 500 MG TAB PO SCH ×2 (07:41→17:35)
[2020-09-19] MEDS: CIPROFLOXACIN HCL 500 MG TAB PO SCH ×2 (07:41→20:59)
[2020-09-19] MEDS: PANTOPRAZOLE 40 MG TABLET PO SCH (07:41)
[2020-09-19] MEDS: CALCIUM CARB-VIT D 500 MG-5 MCG TAB PO SCH (07:41)
[2020-09-19] MEDS: FERROUS SULFATE 325 MG TAB PO SCH (07:41)
[2020-09-19] MEDS: levETIRAcetam 500 MG TAB PO SCH ×2 (07:42→20:58)
[2020-09-19] MEDS: ESCITALOPRAM 20 MG TAB PO SCH (07:57)
[2020-09-19 11:34] LABS: Glucose,Whole Blood 236 mg/dL (75-99)
[2020-09-19 11:54] VITALS: BMI 34.2
[2020-09-19 15:24] VITALS: RESP 16
--- NOTE | 2020-09-19 15:35 | P.PN ---
Subjective Progress Note Date: 09/19/20 Principal diagnosis: Diarrhea, nausea, and vomiting Patient is seen and examined sitting up in bedside chair. States that she is eating without any difficulty. States the nausea and vomiting improved, diarrhea is also improving. States she had 2 episodes of loose stool yesterday. C. diff was ordered, however canceled due to formed stool. She denies Any abdominal pain. Objective - Vital Signs Vital signs: Vital Signs Temp 97.7 F 09/19/20 07:00 Pulse 64 09/19/20 08:00 Resp 18 09/19/20 08:00 BP 150/78 09/19/20 07:00 Pulse Ox 93 L 09/19/20 07:00 Intake & Output 09/18/20 09/19/20 09/19/20 18:59 06:59 18:59 Output Total 300 Balance -300 Weight 87.5 kg Output: Urine 200 Urine/Stool Mix 100 Other: Voiding Method Bedside Commode Bedside Commode Bedside Commode # Voids 1 1 # Bowel Movements 1 1 - Exam General appearance: The patient is alert, oriented, appears in no acute d istress. HET: Head is normocephalic and atraumatic. Conjunctiva pink. Sclera anicteric. Neck: Supple without lymphadenopathy. Abdomen: Soft, nontender, nondistended with bowel sounds. No guarding or rigidity. Extremities: Normal skin color and turgor. No pedal edema Skin: No rashes, no jaundice Neurological: No focal deficits. Alert and oriented 3. - Labs CBC & Chem 7: 09/18/20 06:37 09/18/20 06:37 Labs: Abnormal Lab Results - Last 24 Hours (Table) 09/18/20 09/18/20 09/18/20 Range/Units 06:37 06:37 12:06 Hgb 11.9 L (12.0-15.0) g/dL MCHC 30.4 L (32.0-37.0) g/dL Plt Count 133 L (140-440) X 10*3/uL Immature Gran # 0.05 H (0.00-0.04) X 10*3/uL Est GFR (CKD-EPI)AfAm 46.1 L (60.0-200.0) Est GFR (CKD-EPI)NonAf 39.8 L (60.0-200.0) Glucose 193 H (70-110) mg/dL POC Glucose (mg/dL) 238 H (75-99) mg/dL Calcium 8.1 L (8.7-10.3) mg/dL Total Protein 5.1 L (6.2-8.2) g/dL Albumin 3.60 L (3.80-4.90) g/dL Globulin 1.5 L (1.6-3.3) g/dL 09/18/20 09/18/20 09/19/20 Range/Units 17:08 20:07 07:35 Hgb (12.0-15.0) g/dL MCHC (32.0-37.0) g/dL Plt Count (140-440) X 10*3/uL Immature Gran # (0.00-0.04) X 10*3/uL Est GFR (CKD-EPI)AfAm (60.0-200.0) Est GFR (CKD-EPI)NonAf (60.0-200.0) Glucose (70-110) mg/dL POC Glucose (mg/dL) 204 H 243 H 210 H (75-99) mg/dL Calcium (8.7-10.3) mg/dL Total Protein (6.2-8.2) g/dL Albumin (3.80-4.90) g/dL Globulin (1.6-3.3) g/dL Microbiology - Last 24 Hours (Table) 09/17/20 23:40 Blood Culture - Preliminary Blood No Growth after 24 hours 09/18/20 13:25 Stool Culture - Preliminary Stool Assessment and Plan (1) Diarrhea Narrative/Plan: 75-year-old female with multiple medical comorbidities presenting for nausea, vomiting and diarrhea. Reporting 3-4 nonbloody bowel movements daily. General ly having 1 bowel movement per day in the past. Believes last colonoscopy was less than 10 years ago approximately 7-8 and normal. Last EGD in 12/21 for evaluation of dysphagia significant for hiatal hernia, gastritis and suspicion for cricopharyngeal dysphagia. No further loose bowel movements since presentation. Computed tomography scan of the abdomen negative for any acute intra-abdominal pathology. Unclear etiology, may be medication related to recent antibiotics, rule out infection or Clostridium difficile or other etiology . Current Visit: Yes Status: Acute Code(s): R19.7 - DIARRHEA, UNSPECIFIED SNOMED Code(s): 77837296 (2) Dysphagia Narrative/Plan: Long-standing history of esophageal dysphasia last investigated and 12/21 with E GD showing gastritis, hiatal hernia and some tightness in the upper esophageal sphincter suspicious for recurrent oropharyngeal dysphasia which had also been seen on x-ray imaging Current Visit: Yes Status: Acute Code(s): R13.10 - DYSPHAGIA, UNSPECIFIED SNOMED Code(s): 36467142 Plan: 1. Continue symptomatic and supportive care 2. Continue dysphagia diet 3. Aspiration precautions discussed 4. Continue Protonix therapy 5. Stool studies ordered 6. If diarrhea continues will try to reorder C. diff stool testing Thank you for this consultation, we will continue to follow. Dr. Chilel I agree with the dictator's note, documented as a scribe by Yasmeen Masterson.
[2020-09-19 17:24] LABS: Glucose,Whole Blood 215 mg/dL (75-99)
[2020-09-19 20:21] LABS: Glucose,Whole Blood 197 mg/dL (75-99)
[2020-09-19] MEDS: ATORVASTATIN 40 MG TAB PO SCH (20:58)
[2020-09-19] MEDS: ACETAMINOPHEN TAB 325 MG TAB PO PRN (20:59)
[2020-09-19] MEDS: QUEtiapine 100 MG TAB PO SCH (20:59)
[2020-09-20] MEDS ORDERED: ONDANSETRON 4 MG/2 ML VIAL IVP PRN (00:27)
[2020-09-20 07:01] LABS: Glucose,Whole Blood 202 mg/dL (75-99)
--- NOTE | 2020-09-20 07:20 | PN ---
PROGRESS NOTE 75-year-old white female was admitted to the hospital with chronic diarrhea and dysphagia, esophageal dysmobility. We will discontinue her metformin as a cause of possible diarrhea worsening. Hopefully get an EGD by GI doctor. Await the recommendations. PHYSICAL EXAM: CARDIOVASCULAR: S1-S2. PSYCH: Fair mood and affect. NEUROLOGIC: Alert and oriented x3. OPHTHALMOLOGIC: Pupils equal, round, reactive. ASSESSMENT: Increased diarrhea, progressive vomiting. Will stop metformin, wait for GI recommendations. Get antinausea medicines. Prognosis guarded. Possible discharge home tomorrow. Check stool cultures. MMODL / IJN: [id number] /
[2020-09-20] MEDS: hydrALAZINE HCL 25 MG TAB PO SCH (07:53)
[2020-09-20] MEDS: PANTOPRAZOLE 40 MG TABLET PO SCH (07:54)
[2020-09-20] MEDS: ENOXAPARIN 40 MG/0.4 ML SYRINGE SQ SCH (07:54)
[2020-09-20] MEDS: CLOPIDOGREL 75 MG TAB PO SCH (07:54)
[2020-09-20] MEDS: FERROUS SULFATE 325 MG TAB PO SCH (07:54)
[2020-09-20] MEDS: ESCITALOPRAM 20 MG TAB PO SCH (07:54)
[2020-09-20] MEDS: amLODIPine 5 MG TAB PO SCH (07:54)
[2020-09-20] MEDS: CYANOCOBALAMIN 500 MCG TAB PO SCH (07:54)
[2020-09-20] MEDS: QUEtiapine 25 MG TAB PO SCH ×2 (07:54→12:05)
[2020-09-20] MEDS: CIPROFLOXACIN HCL 500 MG TAB PO SCH (07:54)
[2020-09-20] MEDS: CALCIUM CARB-VIT D 500 MG-5 MCG TAB PO SCH (07:55)
[2020-09-20] MEDS: levETIRAcetam 500 MG TAB PO SCH (07:55)
--- NOTE | 2020-09-20 09:28 | P.PN ---
Subjective Progress Note Date: 09/20/20 Principal diagnosis: Diarrhea, nausea, and vomiting The patient is seen and examined sitting up in the bedside chair. He states she had one episode of diarrhea yesterday. Denies any diarrhea or abdominal pain or cramping today. States she has no nausea or vomiting, she was having no difficulty swallowing this morning. She's been afebrile. Objective - Vital Signs Vital signs: Vital Signs Temp 98.3 F 09/20/20 07:00 Pulse 58 L 09/20/20 08:00 Resp 16 09/20/20 08:00 BP 131/72 09/20/20 07:00 Pulse Ox 91 L 09/20/20 07:00 Intake & Output 09/19/20 09/20/20 09/20/20 18:59 06:59 18:59 Intake Total 300 Balance 300 Weight 87.5 kg 87.7 kg Intake: Oral 300 Other: Voiding Method Bedside Commode Bedside Commode Bedside Commode # Voids 1 # Bowel Movements 1 1 - Exam General appearance: The patient is alert, oriented, appears in no acute distress. HET: Head is normocephalic and atraumatic. Conjunctiva pink. Sclera anicteric. Neck: Supple without lymphadenopathy. Abdomen: Soft, nontender, nondistended with bowel sounds. No guarding or rigidity. Extremities: Normal skin color and turgor. No pedal edema Skin: No rashes, no jaundice Neurological: No focal deficits. Alert and oriented 3. - Labs CBC & Chem 7: 09/18/20 06:37 09/18/20 06:37 Labs: Abnormal Lab Results - Last 24 Hours (Table) 09/19/20 09/19/20 09/19/20 Range/Units 11:32 17:23 20:18 POC Glucose (mg/dL) 236 H 215 H 197 H (75-99) mg/dL 09/20/20 Range/Units 06:59 POC Glucose (mg/dL) 202 H (75-99) mg/dL Microbiology - Last 24 Hours (Table) 09/17/20 23:40 Blood Culture - Preliminary Blood No Growth after 48 hours Assessment and Plan (1) Diarrhea Narrative/Plan: 75-year-old female with multiple medical comorbidities presenting for nausea, vomiting and diarrhea. Reporting 3-4 nonbloody bowel movements daily. Generally having 1 bowel movement per day in the past. Believes last colonoscopy was less than 10 years ago approximately 7-8 and normal. Last EGD in 12/21 for evaluation of dysphagia significant for hiatal hernia, gastritis and suspicion for cricopharyngeal dysphagia. No further loose bowel movements since presentation. Computed tomography scan of the abdomen negative for any acute intra-abdominal pathology. Unclear etiology, may be medication related to recent antibiotics, rule out infection or Clostridium difficile or other etiology . Current Visit: Yes Status: Acute Code(s): R19.7 - DIARRHEA, UNSPECIFIED SNOMED Code(s): 85026425 (2) Dysphagia Narrative/Plan: Long-standing history of esophageal dysphasia last investigated and 12/21 with EGD showing gastritis, hiatal hernia and some tightness in the upper esophageal sphincter suspicious for recurrent oropharyngeal dysphasia which had also been seen on x-ray imaging Dysphasia improved. Current Visit: Yes Status: Acute Code(s): R13.10 - DYSPHAGIA, UNSPECIFIED SNOMED Code(s): 70910353 Plan: 1. Continue symptomatic and supportive care 2. Continue dysphagia diet 3. Aspiration precautions discussed 4. Continue Protonix therapy 5. Stool studies ordered 6. If diarrhea continues will try to reorder C. diff stool testing, and collect stool OVA/parasite. 7. If diarrhea continues to improve, and patient is not having nausea or vomit ing she may be discharged home from a gastroenterology standpoint. Thank you for this consultation, we will sign off at this time. Dr. Chilel I agree with the dictator's note, documented as a scribe by Yasmeen Masterson.
[2020-09-20 11:55] LABS: Glucose,Whole Blood 223 mg/dL (75-99)
[2020-09-20 14:43] VITALS: BP 133/80; PULSE 66; TEMP 98
== END 2020-09-20 17:30 | disposition home or self-care (01) ==
LOC: EC 15:10 → 6NMEDSUR 18:50
PROVIDERS: ADMIT Family Medicine; ATTEND Family Medicine
DX: K52.9 Noninfective gastroenteritis and colitis, unspecified (principal); N39.0 Urinary tract infection, site not specified; E87.2 Acidosis; E86.0 Dehydration; J45.909 Unspecified asthma, uncomplicated; I13.0 Hypertensive heart and chronic kidney disease with heart failure and stage 1 through stage 4 chronic kidney disease, or unspecified chronic kidney disease; I50.9 Heart failure, unspecified; N18.30 Chronic kidney disease, stage 3 unspecified; E11.22 Type 2 diabetes mellitus with diabetic chronic kidney disease; E11.42 Type 2 diabetes mellitus with diabetic polyneuropathy; M48.56XA Collapsed vertebra, not elsewhere classified, lumbar region, initial encounter for fracture; G40.909 Epilepsy, unspecified, not intractable, without status epilepticus; K29.70 Gastritis, unspecified, without bleeding; I25.10 Atherosclerotic heart disease of native coronary artery without angina pectoris; H54.62 Unqualified visual loss, left eye, normal vision right eye; I48.19 Other persistent atrial fibrillation; M19.91 Primary osteoarthritis, unspecified site; G62.9 Polyneuropathy, unspecified; E78.5 Hyperlipidemia, unspecified; R13.10 Dysphagia, unspecified; F41.8 Other specified anxiety disorders; R26.9 Unspecified abnormalities of gait and mobility; K21.9 Gastro-esophageal reflux disease without esophagitis; K44.9 Diaphragmatic hernia without obstruction or gangrene; R25.1 Tremor, unspecified; I49.5 Sick sinus syndrome; F32.9 Major depressive disorder, single episode, unspecified; Z85.828 Personal history of other malignant neoplasm of skin; Z87.440 Personal history of urinary (tract) infections; Z86.14 Personal history of Methicillin resistant Staphylococcus aureus infection; Z86.73 Personal history of transient ischemic attack (TIA), and cerebral infarction without residual deficits; Z87.11 Personal history of peptic ulcer disease; Z87.19 Personal history of other diseases of the digestive system; Z95.5 Presence of coronary angioplasty implant and graft; Z79.899 Other long term (current) drug therapy; Z79.84 Long term (current) use of oral hypoglycemic drugs; Z79.02 Long term (current) use of antithrombotics/antiplatelets; Z90.49 Acquired absence of other specified parts of digestive tract; Z90.710 Acquired absence of both cervix and uterus; Z88.2 Allergy status to sulfonamides; Z91.040 Latex allergy status; Z95.0 Presence of cardiac pacemaker; Z82.5 Family history of asthma and other chronic lower respiratory diseases; Z80.8 Family history of malignant neoplasm of other organs or systems; Z82.49 Family history of ischemic heart disease and other diseases of the circulatory system
CPT/HCPCS: 96361 ×3; 96372 ×3; 96374; 99285; 36415; 93005; 97162; 97535; 97166; 92610; 80053 ×2; 82150; 83605; 83690 ×2; 84484; 85025 ×2; 81001; 87040; 87045; 83630; 87046; 74018; 74176; G0378 ×4; J1650 ×3; J0696

== ENCOUNTER 2021-10-12 09:53 | Inpatient (IN) | payer MEDICARE ==
[2021-10-12] MEDS ORDERED: SODIUM CHLORIDE 0.9% 500 ML 500 ML IV ONE (10:10)
[2021-10-12] MEDS ORDERED: ACETAMINOPHEN TAB 325 MG TAB PO STA (10:28)
[2021-10-12 10:32] LABS: Glucose,Whole Blood 154 mg/dL (70-110)
--- NOTE | 2021-10-12 10:34 | ED ---
Altered Mental Status HPI - General Chief Complaint: Altered Mental Status Stated Complaint: AMS-Sent by PCP Time Seen by Provider: 10/12/21 10:05 Source: patient Mode of arrival: ambulatory Limitations: no limitations - History of Present Illness Initial Comments: Patient is a 76-year-old female presenting for evaluation of altered mental status. Patient's son at bedside states that yesterday she was having hallucinations, claiming there were children in the house and there were none present. Patient has been experiencing frequent urination, dysuria, and cough. She is also been experiencing shortness of breath on exertion. Patient admits to pressure over her bladder yesterday and diarrhea. Son denies any recent falls or head injuries. Family spoke with her PCP Dr. Zamarripa today who recommended she seek evaluation in the ER. Patient states that she gets fatigued throughout the day. She denies any chest pain, palpitations, headache, hearing or vision changes, abdominal pain, nausea, vomiting, extremity pain, numbness, tingling, hematuria, flank pain. - Related Data Home Medications Medication Instructions Recorded Confirmed Ferrous Sulfate [Iron (65 MG 325 mg PO DAILY 03/27/18 10/12/21 Elemental)] levETIRAcetam [Keppra] 500 mg PO BID 07/21/18 10/12/21 Nystatin 100,000 Unit/gm Powd 1 applic TOPICAL BID PRN 09/16/19 10/12/21 [Mycostatin Powder] Escitalopram Oxalate [Lexapro] 20 mg PO DAILY 12/19/19 10/12/21 Pantoprazole [Protonix] 40 mg PO DAILY 12/19/19 10/12/21 QUEtiapine [SEROquel] 25 mg PO BID@0900,1200 09/17/20 10/12/21 Albuterol Sulfate [Ventolin HFA] 2 puff INHALATION RT-DAILY 10/12/21 10/12/21 Aspirin EC [Ecotrin Low Dose] 81 mg PO DAILY 10/12/21 10/12/21 Atorvastatin [Lipitor] 20 mg PO HS 10/12/21 10/12/21 Calcium Citrate/Vitamin D3 1 tab PO DAILY 10/12/21 10/12/21 [Citracal + D Maximum Caplet] Cholecalciferol [Vitamin D3 (25 25 mcg PO DAILY 10/12/21 10/12/21 Mcg = 1000 Iu)] Gabapentin [Neurontin] 100 mg PO DAILY 10/12/21 10/12/21 Ibuprofen [Motrin Ib] 200 mg PO DAILY 10/12/21 10/12/21 Ibuprofen [Motrin Ib] 400 mg PO HS 10/12/21 10/12/21 Insulin Glargine/Lixisenatide 30 units SQ HS 10/12/21 10/12/21 [Soliqua 100 Unit-33 Mcg/ml Pen] Ipratropium-Albuterol Nebulize 3 ml INHALATION RT-QID PRN 10/12/21 10/12/21 [Duoneb 0.5 mg-3 mg/3 ml Soln] Loperamide HCl [Imodium A-D] 2 - 4 mg PO QID PRN 10/12/21 10/12/21 Prednisolone Acetate/Pf 1 drop RIGHT EYE SUFRSA 10/12/21 10/12/21 [Prednisolone Acet 1% Eye Drop] Sodium Chloride 5% Ophth Soln 1 drop BOTH EYES BID 10/12/21 10/12/21 [Amanda 128] Terbinafine [LamISIL] 250 mg PO DAILY 10/12/21 10/12/21 Previous Rx's Medication Instructions Recorded QUEtiapine [SEROquel] 100 mg PO HS 30 Days #30 tab 04/13/19 amLODIPine [Norvasc] 5 mg PO DAILY 90 Days #90 tab 12/22/19 Allergies Allergy/AdvReac Type Severity Reaction Status Date / Time Latex, Natural Rubber Allergy Itching Verified 10/12/21 13:25 sulfamethoxazole Allergy Rash/Hives Verified 10/12/21 13:25 [From Bactrim] trimethoprim [From Bactrim] Allergy Rash/Hives Verified 10/12/21 13:25 Review of Systems ROS Statement: Those systems with pertinent positive or pertinent negative responses have been documented in the HPI. ROS Other: All systems not noted in ROS Statement are negative. Past Medical History Past Medical History: Atrial Fibrillation, Asthma, Coronary Artery Disease (CAD), Cancer, Heart Failure, CVA/TIA, Diabetes Mellitus, Eye Disorder, Hypertension, Osteoarthritis (OA), Renal Disease, Seizure Disorder Additional Past Medical History / Comment(s): Brain mass/fall with intracranial bleed/hematome-surgery at [facility], seizure after brain surgery, paroxysmal Afib, IDDM type II, neuropathy bilateral feet, orthostatic hypotension, SSS with pacemaker, L1 compression fx, CKD stage III, blind in L eye, UTIs, lower GI bleed, gastritis, gastric erosion, CDiff colitis, skin cancer with removals, past L arm fracture, past R arm fracture x2. History of Any Multi-Drug Resistant Organisms: MRSA Date of last positivie culture/infection: 01/26/19 MDRO Source:: URINE Past Surgical History: Cholecystectomy, Heart Catheterization, Heart Catheterization With Stent, Hysterectomy, Pacemaker Additional Past Surgical History / Comment(s): Evacuation of intracranial hematoma and ressection of hemorrhagic mass, pacemaker 2016, PCI with stent 06/06/18, EGD/colonoscopy, R eye corneal implant/cataract removal, EGD 06/2018, colonoscopy, skin cancer removal. Past Anesthesia/Blood Transfusion Reactions: No Reported Reaction Additional Past Anesthesia/Blood Transfusion Reaction / Comment(s): . Date of Last Stent Placement:: 06/06/18 Type of Cardiac Device: Permanent Pacemaker Device Placement Date:: 04/2016 Past Psychological History: Anxiety, Depression Smoking Status: Never smoker Past Alcohol Use History: None Reported Past Drug Use History: None Reported - Past Family History Mother Family Medical History: Cancer, COPD, Hypertension Additional Family Medical History / Comment(s): Mother had bone cancer. Father Family Medical History: Cancer, Hypertension Additional Family Medical History / Comment(s): Father had skin cancer. General Exam Limitations: no limitations Course Vital Signs 10/12/21 10/12/21 10/12/21 09:56 10:05 10:10 Temperature 98.3 F 99.0 F Pulse Rate 56 L 60 Respiratory 18 20 Rate Blood Pressure 173/52 152/65 O2 Sat by Pulse 91 L 88 L 94 L Oximetry Medical Decision Making - Medical Decision Making Patient is a 76-year-old female presenting for evaluation of altered mental status. Family at bedside states she has been increasingly confused. She has also been experiencing cough, dysuria, urinary urgency, bladder pressure, and diarrhea. On examination patient is hypoxic on room air at 88%. Patient is placed on 2 L of oxygen nasal cannula, has improved to 94%. Patient is positive for Covid. Chest x-ray suggests pneumonia. Urine suggests UTI. Venous blood g as is WNL. Creatinine 2.02 and BUN is 24, this is slightly worse than her baseline. BNP 3720. Troponin is 0.021. Patient is given azithromycin and Rocephin. I spoke with Dr. Zamarripa who agreed to admit the patient. I discussed these findings with plan with the patient and her family, they conveyed verbal understanding and agreed to the plan. I discussed this case with my attending Dr. Bansal. - Lab Data Result diagrams: 10/12/21 10:33 10/12/21 10:33 Lab Results 10/12/21 10/12/21 10/12/21 Range/Units 10:24 10:31 10:33 WBC 6.5 (3.8-10.6) k/uL RBC 4.82 (3.80-5.40) m/uL Hgb 13.7 (11.4-16.0) gm/dL Hct 43.0 (34.0-46.0) % MCV 89.3 (80.0-100.0) fL MCH 28.3 (25.0-35.0) pg MCHC 31.7 (31.0-37.0) g/dL RDW 13.9 (11.5-15.5) % Plt Count 108 L (150-450) k/uL MPV 8.2 Neutrophils % 73 % Lymphocytes % 17 % Monocytes % 7 % Eosinophils % 1 % Basophils % 0 % Neutrophils # 4.8 (1.3-7.7) k/uL Lymphocytes # 1.1 (1.0-4.8) k/uL Monocytes # 0.5 (0-1.0) k/uL Eosinophils # 0.1 (0-0.7) k/uL Basophils # 0.0 (0-0.2) k/uL PT (9.0-12.0) sec INR (<1.2) APTT (22.0-30.0) sec VBG pH (7.31-7.41) VBG pCO2 (37-51) mmHg VBG HCO3 (24-28) mmol/L Sodium (137-145) mmol/L Potassium (3.5-5.1) mmol/L Chloride (98-107) mmol/L Carbon Dioxide (22-30) mmol/L Anion Gap mmol/L BUN (7-17) mg/dL Creatinine (0.52-1.04) mg/dL Est GFR (CKD-EPI)AfAm (>60 ml/min/1.73 sqM) Est GFR (CKD-EPI)NonAf (>60 ml/min/1.73 sqM) Glucose (74-99) mg/dL POC Glucose (mg/dL) 154 H (70-110) mg/dL POC Glu Suit Attendant ID Gini John Calcium (8.4-10.2) mg/dL Total Bilirubin (0.2-1.3) mg/dL AST (14-36) U/L ALT (4-34) U/L Alkaline Phosphatase (38-126) U/L Troponin I (0.000-0.034) ng/mL NT-Pro-B Natriuret Pep pg/mL Total Protein (6.3-8.2) g/dL Albumin (3.5-5.0) g/dL Urine Color Yellow Urine Appearance Cloudy H (Clear) Urine pH 5.5 (5.0-8.0) Ur Specific [place] 1.021 (1.001-1.035) Urine Protein 1+ H (Negative) Urine Glucose (UA) Negative (Negative) Urine Ketones Negative (Negative) Urine Blood Negative (Negative) Urine Nitrite Negative (Negative) Urine Bilirubin Negative (Negative) Urine Urobilinogen <2.0 (<2.0) mg/dL Ur Leukocyte Esterase Large H (Negative) Urine RBC 7 H (0-5) /hpf Urine WBC 78 H (0-5) /hpf Urine WBC Clumps Occasional H (None) /hpf Ur Squamous Epith Cells 1 (0-4) /hpf Urine Bacteria Rare H (None) /hpf Hyaline Casts 4 H (0-2) /lpf Urine Mucus Rare H (None) /hpf Coronavirus (PCR) (Not Detectd) Influenza Type A RNA (Not Detectd) Influenza Type B (PCR) (Not Detectd) 10/12/21 10/12/21 10/12/21 Range/Units 10:33 10:33 10:33 WBC (3.8-10.6) k/uL RBC (3.80-5.40) m/uL Hgb (11.4-16.0) gm/dL Hct (34.0-46.0) % MCV (80.0-100.0) fL MCH (25.0-35.0) pg MCHC (31.0-37.0) g/dL RDW (11.5-15.5) % Plt Count (150-450) k/uL MPV Neutrophils % % Lymphocytes % % Monocytes % % Eosinophils % % Basophils % % Neutrophils # (1.3-7.7) k/uL Lymphocytes # (1.0-4.8) k/uL Monocytes # (0-1.0) k/uL Eosinophils # (0-0.7) k/uL Basophils # (0-0.2) k/uL PT 10.1 (9.0-12.0) sec INR 0.9 (<1.2) APTT 24.8 (22.0-30.0) sec VBG pH (7.31-7.41) VBG pCO2 (37-51) mmHg VBG HCO3 (24-28) mmol/L Sodium 139 (137-145) mmol/L Potassium 4.7 (3.5-5.1) mmol/L Chloride 99 (98-107) mmol/L Carbon Dioxide 28 (22-30) mmol/L Anion Gap 12 mmol/L BUN 24 H (7-17) mg/dL Creatinine 2.02 H (0.52-1.04) mg/dL Est GFR (CKD-EPI)AfAm 27 (>60 ml/min/1.73 sqM) Est GFR (CKD-EPI)NonAf 23 (>60 ml/min/1.73 sqM) Glucose 165 H (74-99) mg/dL POC Glucose (mg/dL) (70-110) mg/dL POC Glu Suit Attendant ID Calcium 8.4 (8.4-10.2) mg/dL Total Bilirubin 0.5 (0.2-1.3) mg/dL AST 23 (14-36) U/L ALT 14 (4-34) U/L Alkaline Phosphatase 96 (38-126) U/L Troponin I (0.000-0.034) ng/mL NT-Pro-B Natriuret Pep pg/mL Total Protein 6.1 L (6.3-8.2) g/dL Albumin 3.7 (3.5-5.0) g/dL Urine Color Urine Appearance (Clear) Urine pH (5.0-8.0) Ur Specific [place] (1.001-1.035) Urine Protein (Negative) Urine Glucose (UA) (Negative) Urine Ketones (Negative) Urine Blood (Negative) Urine Nitrite (Negative) Urine Bilirubin (Negative) Urine Urobilinogen (<2.0) mg/dL Ur Leukocyte Esterase (Negative) Urine RBC (0-5) /hpf Urine WBC (0-5) /hpf Urine WBC Clumps (None) /hpf Ur Squamous Epith Cells (0-4) /hpf Urine Bacteria (None) /hpf Hyaline Casts (0-2) /lpf Urine Mucus (None) /hpf Coronavirus (PCR) (Not Detectd) Influenza Type A RNA Not Detected (Not Detectd) Influenza Type B (PCR) Not Detected (Not Detectd) 10/12/21 10/12/21 10/12/21 Range/Units 10:33 10:33 10:33 WBC (3.8-10.6) k/uL RBC (3.80-5.40) m/uL Hgb (11.4-16.0) gm/dL Hct (34.0-46.0) % MCV (80.0-100.0) fL MCH (25.0-35.0) pg MCHC (31.0-37.0) g/dL RDW (11.5-15.5) % Plt Count (150-450) k/uL MPV Neutrophils % % Lymphocytes % % Monocytes % % Eosinophils % % Basophils % % Neutrophils # (1.3-7.7) k/uL Lymphocytes # (1.0-4.8) k/uL Monocytes # (0-1.0) k/uL Eosinophils # (0-0.7) k/uL Basophils # (0-0.2) k/uL PT (9.0-12.0) sec INR (<1.2) APTT (22.0-30.0) sec VBG pH 7.38 (7.31-7.41) VBG pCO2 48 (37-51) mmHg VBG HCO3 28 (24-28) mmol/L Sodium (137-145) mmol/L Potassium (3.5-5.1) mmol/L Chloride (98-107) mmol/L Carbon Dioxide (22-30) mmol/L Anion Gap mmol/L BUN (7-17) mg/dL Creatinine (0.52-1.04) mg/dL Est GFR (CKD-EPI)AfAm (>60 ml/min/1.73 sqM) Est GFR (CKD-EPI)NonAf (>60 ml/min/1.73 sqM) Glucose (74-99) mg/dL POC Glucose (mg/dL) (70-110) mg/dL POC Glu Suit Attendant ID Calcium (8.4-10.2) mg/dL Total Bilirubin (0.2-1.3) mg/dL AST (14-36) U/L ALT (4-34) U/L Alkaline Phosphatase (38-126) U/L Troponin I (0.000-0.034) ng/mL NT-Pro-B Natriuret Pep 3720 pg/mL Total Protein (6.3-8.2) g/dL Albumin (3.5-5.0) g/dL Urine Color Urine Appearance (Clear) Urine pH (5.0-8.0) Ur Specific [place] (1.001-1.035) Urine Protein (Negative) Urine Glucose (UA) (Negative) Urine Ketones (Negative) Urine Blood (Negative) Urine Nitrite (Negative) Urine Bilirubin (Negative) Urine Urobilinogen (<2.0) mg/dL Ur Leukocyte Esterase (Negative) Urine RBC (0-5) /hpf Urine WBC (0-5) /hpf Urine WBC Clumps (None) /hpf Ur Squamous Epith Cells (0-4) /hpf Urine Bacteria (None) /hpf Hyaline Casts (0-2) /lpf Urine Mucus (None) /hpf Coronavirus (PCR) Detected A (Not Detectd) Influenza Type A RNA (Not Detectd) Influenza Type B (PCR) (Not Detectd) 10/12/21 Range/Units 10:33 WBC (3.8-10.6) k/uL RBC (3.80-5.40) m/uL Hgb (11.4-16.0) gm/dL Hct (34.0-46.0) % MCV (80.0-100.0) fL MCH (25.0-35.0) pg MCHC (31.0-37.0) g/dL RDW (11.5-15.5) % Plt Count (150-450) k/uL MPV Neutrophils % % Lymphocytes % % Monocytes % % Eosinophils % % Basophils % % Neutrophils # (1.3-7.7) k/uL Lymphocytes # (1.0-4.8) k/uL Monocytes # (0-1.0) k/uL Eosinophils # (0-0.7) k/uL Basophils # (0-0.2) k/uL PT (9.0-12.0) sec INR (<1.2) APTT (22.0-30.0) sec VBG pH (7.31-7.41) VBG pCO2 (37-51) mmHg VBG HCO3 (24-28) mmol/L Sodium (137-145) mmol/L Potassium (3.5-5.1) mmol/L Chloride (98-107) mmol/L Carbon Dioxide (22-30) mmol/L Anion Gap mmol/L BUN (7-17) mg/dL Creatinine (0.52-1.04) mg/dL Est GFR (CKD-EPI)AfAm (>60 ml/min/1.73 sqM) Est GFR (CKD-EPI)NonAf (>60 ml/min/1.73 sqM) Glucose (74-99) mg/dL POC Glucose (mg/dL) (70-110) mg/dL POC Glu Suit Attendant ID Calcium (8.4-10.2) mg/dL Total Bilirubin (0.2-1.3) mg/dL AST (14-36) U/L ALT (4-34) U/L Alkaline Phosphatase (38-126) U/L Troponin I 0.021 (0.000-0.034) ng/mL NT-Pro-B Natriuret Pep pg/mL Total Protein (6.3-8.2) g/dL Albumin (3.5-5.0) g/dL Urine Color Urine Appearance (Clear) Urine pH (5.0-8.0) Ur Specific [place] (1.001-1.035) Urine Protein (Negative) Urine Glucose (UA) (Negative) Urine Ketones (Negative) Urine Blood (Negative) Urine Nitrite (Negative) Urine Bilirubin (Negative) Urine Urobilinogen (<2.0) mg/dL Ur Leukocyte Esterase (Negative) Urine RBC (0-5) /hpf Urine WBC (0-5) /hpf Urine WBC Clumps (None) /hpf Ur Squamous Epith Cells (0-4) /hpf Urine Bacteria (None) /hpf Hyaline Casts (0-2) /lpf Urine Mucus (None) /hpf Coronavirus (PCR) (Not Detectd) Influenza Type A RNA (Not Detectd) Influenza Type B (PCR) (Not Detectd) - EKG Data EKG Comments: Electronic atrial pacemaker rate of 60. MI interval 353. QRS duration 109. QT/QTc 475/475. Inverted T waves in leads 2, aVF, and V2 through V6. Disposition Clinical Impression: Pneumonia, COVID, UTI (urinary tract infection) Disposition: ADMITTED IP TO THIS HOSP Condition: Fair Time of Disposition: 11:53 Decision to Admit Reason: Admit from EC Decision Date: 10/12/21 Decision Time: 11:53
[2021-10-12 10:43] LABS: Appearance,Urine Cloudy (Clear); Bacteria,Urine Rare /hpf; Bilirubin,Urine Negative (Negative); Blood,Urine Negative (Negative); Color,Urine Yellow; Glucose,Urine (UA) Negative (Negative); Hyaline Casts,Urine 4 /lpf (0-2); Ketones,Urine Negative (Negative); Leukocyte Esterase,Urine Large (Negative); Mucus,Urine Rare /hpf; Nitrite,Urine Negative (Negative); PH, Urine 5.5 (5.0-8.0); Protein,Urine 1+ (Negative); RBC,Urine 7 /hpf (0-5); Specific Gravity,Urine 1.021 (1.001-1.035); Squamous Epithelial Cell,Urine 1 /hpf (0-4); Urobilinogen,Urine <2.0 mg/dL (<2.0); WBC,Urine 78 /hpf (0-5)
[2021-10-12 10:47] LABS: Basophils % (A) 0 %; Eosinophils # (A) 0.1 k/uL (0-0.7); Eosinophils % (A) 1 %; HGB 13.7 gm/dL (11.4-16.0); Lymphocytes # (A) 1.1 k/uL (1.0-4.8); Lymphocytes % (A) 17 %; MCH 28.3 pg (25.0-35.0); MCHC 31.7 g/dL (31.0-37.0); MCV 89.3 fL (80.0-100.0); Mean Platelet Volume 8.2; Monocytes # (A) 0.5 k/uL (0-1.0); Monocytes % (A) 7 %; Neutrophils # (A) 4.8 k/uL (1.3-7.7); Neutrophils % (A) 73 %; Platelet Count 108 k/uL (150-450); RBC 4.82 m/uL (3.80-5.40); RDW 13.9 % (11.5-15.5); WBC 6.5 k/uL (3.8-10.6)
[2021-10-12 10:51] LABS: VBG PH 7.38 (7.31-7.41)
[2021-10-12 10:56] LABS: INR 0.9 (<1.2); Partial Thromboplastin Time 24.8 sec (22.0-30.0); Prothrombin Time 10.1 sec (9.0-12.0)
[2021-10-12 11:01] LABS: Albumin 3.7 g/dL (3.5-5.0); Calcium 8.4 mg/dL (8.4-10.2); Potassium 4.7 mmol/L (3.5-5.1); Total Bilirubin 0.5 mg/dL (0.2-1.3); Total Protein 6.1 g/dL (6.3-8.2)
--- NOTE | 2021-10-12 11:05 | XR ---
EXAMINATION TYPE: XR chest 2V DATE OF EXAM: 10/12/2021 COMPARISON: 12/19/2019 TECHNIQUE: PA and lateral views submitted. HISTORY: Altered mental status FINDINGS: A cardiac device is seen in the right lower lobe infiltrate and small effusion. Heart size normal. No pneumothorax. Arthropathy of the shoulders. Remote trauma suspected bilaterally with remote fracture s. Interstitium is stable. IMPRESSION: 1. Right lower lobe infiltrate or atelectasis and small effusion
[2021-10-12] MEDS ORDERED: cefTRIAXone IN SWFI 1,000 MG/10 ML SYRINGE IVP STA (11:11)
[2021-10-12] MEDS ORDERED: AZITHROMYCIN 500 MG in SODIUM CHLORIDE 0.9% 250 ML IVPB STA (11:11)
[2021-10-12] MEDS ORDERED: ACETAMINOPHEN TAB 325 MG TAB PO PRN (12:15)
[2021-10-12] MEDS ORDERED: NALOXONE 0.4 MG/ML 1 ML VIAL IV PRN (12:15)
[2021-10-12] MEDS: SODIUM CHLORIDE 0.9% 1,000 ML IV SCH ×2 (12:30→21:07)
[2021-10-12] MEDS ORDERED: IPRATROPIUM-ALBUTEROL 3 ML NEB INHALATION PRN (19:23)
[2021-10-12] MEDS ORDERED: NYSTATIN 100,000 UNIT/GM POWD 15 GM TOPICAL PRN (19:23)
[2021-10-12] MEDS ORDERED: methylPREDNISolone SOD SUCCI 40 MG/ML 1 ML VIAL IV SCH (19:30)
[2021-10-12] MEDS: levETIRAcetam 500 MG TAB PO SCH (21:06)
[2021-10-12] MEDS: QUEtiapine 100 MG TAB PO SCH (21:06)
[2021-10-12] MEDS: ATORVASTATIN 20 MG TAB PO SCH (21:07)
[2021-10-13] MEDS: SODIUM CHLORIDE 5% OPHTH DROPS 15 ML BTL BOTH EYES SCH ×3 (05:28→20:52)
[2021-10-13] MEDS: methylPREDNISolone SOD SUCCI 40 MG/ML 1 ML VIAL IV SCH ×2 (05:57→12:46)
[2021-10-13] MEDS: ALBUTEROL HFA INHALER INHALATION SCH (08:40)
[2021-10-13] MEDS ORDERED: AZITHROMYCIN 500 MG in SODIUM CHLORIDE 0.9% 250 ML IVPB SCH (09:00)
[2021-10-13 09:14] LABS: African American GFR (CKD) 33.1 (60.0-200.0); Albumin 3.9 g/dL (3.8-4.9); Albumin/Globulin Ratio 1.77 (1.60-3.17); Anion Gap 11.3 mmol/L (10.00-18.00); BUN/Creat Ratio 12.59 Ratio (12.00-20.00); Blood Urea Nitrogen 21.4 mg/dL (9.0-27.0); Calcium 8.5 mg/dL (8.7-10.3); Carbon Dioxide 26.7 mmol/L (20.0-27.5); Globulin 2.2 g/dL (1.6-3.3); Non-African American GFR(CKD) 28.6 (60.0-200.0); Potassium 5.3 mmol/L (3.5-5.5); Total Bilirubin 0.4 mg/dL (0.30-1.20); Total Protein 6.1 g/dL (6.2-8.2)
[2021-10-13 09:18] VITALS: BMI 31.6
[2021-10-13] MEDS: PANTOPRAZOLE 40 MG TABLET PO SCH (09:25)
[2021-10-13] MEDS: ESCITALOPRAM 20 MG TAB PO SCH (09:25)
[2021-10-13] MEDS: FERROUS SULFATE 325 MG TAB PO SCH (09:25)
[2021-10-13] MEDS: levETIRAcetam 500 MG TAB PO SCH ×2 (09:25→20:52)
[2021-10-13] MEDS: amLODIPine 5 MG TAB PO SCH (09:25)
[2021-10-13] MEDS: QUEtiapine 25 MG TAB PO SCH ×2 (09:25→12:45)
[2021-10-13] MEDS: ASPIRIN 81 MG PO SCH (09:25)
[2021-10-13] MEDS: prednisoLONE ACETATE 1% OPHTH DROPS 5 ML BTL RIGHT EYE SCH (09:26)
[2021-10-13 10:33] LABS: Basophils # (A) 0.01 X 10*3/uL (0.00-0.10); Basophils % (A) 0.2 %; Eosinophils # (A) 0 X 10*3/uL (0.04-0.35); Eosinophils % (A) 0 %; HGB 13.5 g/dL (12.0-15.0); Immature Grans, Automated 0.5 %; Lymphocytes # (A) 0.74 X 10*3/uL (0.90-5.00); Lymphocytes % (A) 18.4 %; MCHC 31.4 g/dL (32.0-37.0); MCV 89.2 fL (80.0-97.0); Mean Platelet Volume 11.3 fL (9.5-12.2); Monocytes % (A) 2.5 %; NRBC Per 100 WBC 0 /100 WBCS (0.0-0.0); Neutrophils # (A) 3.16 X 10*3/uL (1.80-7.70); Neutrophils % (A) 78.4 %; Platelet Count 92 X 10*3/uL (140-440); RBC 4.82 X 10*6/uL (4.10-5.20); RDW 13.3 % (11.5-14.5); WBC 4.03 X 10*3/uL (4.50-10.00)
--- NOTE | 2021-10-13 11:21 | CA ---
Transthoracic Echo Report Name: Zehra Montes Age: 76 Gender: F : 1945 Exam Date: 10/13/2021 09:28 Exam Location: [facility] Ht (in): 65 Wt (lb): 190 Ordering Physician: Theresa Ramachandran Attending/Referring Phys: [employer] Stella Overton RDCS Procedure CPT: Indications: chf Cardiac Hx: Technical Quality: Fair Contrast 1: Total Dose (mL): Contrast 2: Total Dose (mL): MEASUREMENTS (Male / Female) Normal Values 2D ECHO LV Diastolic Diameter PLAX 3.6 cm 4.2 - 5.9 / 3.9 - 5.3 cm LV Systolic Diameter PLAX 2.5 cm IVS Diastolic Thickness 1.7 cm 0.6 - 1.0 / 0.6 - 0.9 cm LVPW Diastolic Thickness 1.5 cm 0.6 - 1.0 / 0.6 - 0.9 cm LV Relative Wall Thickness 0.9 RV Internal Dim ED PLAX 3.2 cm LA Systolic Diameter LX 3.6 cm 3.0 - 4.0 / 2.7 - 3.8 cm LA Volume 48.3 cm??? 18 - 58 / 22 - 52 cm??? M-MODE Aortic Root Diameter MM 3.1 cm MV E Point Septal Separation 0.4 cm AV Cusp Separation MM 2.2 cm DOPPLER AV Peak Velocity 137.1 cm/s AV Peak Gradient 7.5 mmHg AI Peak Velocity 313.6 cm/s AI Peak Gradient 39.3 mmHg AI Pressure Half Time 456.4 ms MV Area PHT 2.6 cm??? Mitral E Point Velocity 97.3 cm/s Mitral A Point Velocity 115.3 cm/s Mitral E to A Ratio 0.8 MV Deceleration Time 292.5 ms MV E' Velocity 6.3 cm/s Mitral E to MV E' Ratio 15.5 TR Peak Velocity 260.9 cm/s TR Peak Gradient 27.2 mmHg Right Ventricular Systolic Press 30.8 mmHg FINDINGS Left Ventricle Left ventricular ejection fraction is estimated at 50-55 %. Left ventricular cavity size normal. Moderate concentric left ventricular hypertrophy. Apical septum hypokinesis Right Ventricle Normal right ventricular size and function. Right ventricular systolic pressure within normal limits. Right Atrium Normal right atrial size. Left Atrium Normal left atrial size. No evidence for an atrial septal defect. Mitral Valve Mitral valve thickened. Mitral annular calcification. Trace to mild mitral regurgitation. Aortic Valve Trileaflet aortic valve. No aortic valve stenosis or regurgitation. Tricuspid Valve Mild tricuspid regurgitation. Pulmonic Valve Pulmonic valve not well visualized. Pericardium Normal pericardium. No pericardial effusion. Aorta Normal size aortic root and proximal ascending aorta. CONCLUSIONS Normal LV systolic function Previewed by: Dr. David Johnson MD (Electronically Signed) Final Date: 13 October 2021 11:19
--- NOTE | 2021-10-13 11:27 | P.CRDCN ---
History of Present Illness Consult date: 10/13/21 History of present illness: Patient has a known history of atrial fibrillation not on long-term anticoagulation secondary to brain hemorrhage, coronary artery disease, sick sinus syndrome status post pacemaker, congestive heart failure hypertension with orthostatic hypotension hyperlipidemia chronic kidney disease stage III CVA diabetic seizures brain mass/fall with intracranial bleeding. We have been consulted to see the patient for congestive heart failure. Patient follows with Dr. Hawk in the office. Presented to the ER with complaints of altered mental status and increased shortness of breath. She is admitted with Covid pneumonia and UTI EKG shows atrial paced with nonspecific ST-T wave changes Chest x-ray shows right lower lobe infiltrates or atelectasis and small effusion Troponins negative 3 kidney function elevated BUNs 24 creatinine 0.02. Patient had an echo in 2019 which showed a preserved LV systolic function with an ejection fraction of 55-60%, mild aortic regurgitation, moderate mitral calcification, mild mitral regurgitation and mild tricuspid regurgitation She has been resting comfortably in bed with no signs of acute distress, she is pleasantly confused. Patient's BNP is elevated 3720, and chest x-ray correlates with small effusions for congestive heart failure echocardiogram has been obtained and shows a normal LV function. We'll start patient on 20 mg IV Lasix. Congestive heart failure is more than likely secondary to acute Covid pneumonia Review of Systems REVIEW OF SYSTEMS At the time of my exam: CONSTITUTIONAL: Denies fever or chills. EYES: Negative for vision changes ENT: Negative for hearing loss CARDIOVASCULAR: Denies chest pain, shortness of breath, diaphoresis, orthopnea, PND or palpitations. VASCULAR: Denies edema RESPIRATORY: Denies cough. GASTROINTESTINAL: Denies abdominal pain, diarrhea, constipation, nausea or vomiting. MUSCULOSKELETAL: Denies myalgias. NEUROLOGIC: Denies numbness, tingling, headache or weakness. ENDOCRINE: Denies fatigue, weight change, polydipsia or polyurina. GENITOURINARY: Denies burning, hematuria or urgency with micturation. HEMATOLOGIC: Denies history of anemia or bleeding. DERMATOLOGY: Denies rash or skin sores PSYCH: Negative for depression or hallucinations. Past Medical History Past Medical History: Atrial Fibrillation, Asthma, Coronary Artery Disease (CAD), Cancer, Heart Failure, CVA/TIA, Diabetes Mellitus, Eye Disorder, Hypertension, Osteoarthritis (OA), Renal Disease, Seizure Disorder Additional Past Medical History / Comment(s): Brain mass/fall with intracranial bleed/hematome-surgery at [facility], seizure after brain surgery, paroxysmal Afib, IDDM type II, neuropathy bilateral feet, orthostatic hypotension, SSS with pacemaker, L1 compression fx, CKD stage III, blind in L eye, UTIs, lower GI bleed, gastritis, gastric erosion, CDiff colitis, skin cancer with removals, past L arm fracture, past R arm fracture x2. History of Any Multi-Drug Resistant Organisms: None Reported, MRSA Date of last positivie culture/infection: 01/26/19 MDRO Source:: URINE Past Surgical History: Cholecystectomy, Heart Catheterization, Heart Catheterization With Stent, Hysterectomy, Pacemaker Additional Past Surgical History / Comment(s): Evacuation of intracranial hematoma and ressection of hemorrhagic mass, pacemaker 2016, PCI with stent 06/06/18, EGD/colonoscopy, R eye corneal implant/cataract removal, EGD 06/2018, colonoscopy, skin cancer removal. Past Anesthesia/Blood Transfusion Reactions: No Reported Reaction Additional Past Anesthesia/Blood Transfusion Reaction / Comment(s): . Date of Last Stent Placement:: 06/06/18 Type of Cardiac Device: Permanent Pacemaker Device Placement Date:: 04/2016 Past Psychological History: Anxiety, Depression Additional Psychological History / Comment(s): Pt has her son and daughter in law living with her. She uses a walker and has a wheelchair for longer distaces. She no longer drives, her family drives her to appts. Her son manages her medications. Daughter in law cooks. Pt states her depression has been increased intermittently but denies any thoughts/plans of suicide. Smoking Status: Never smoker Past Alcohol Use History: None Reported Past Drug Use History: None Reported - Past Family History Mother Family Medical History: Cancer, COPD, Hypertension Additional Family Medical History / Comment(s): Mother had bone cancer. Father Family Medical History: Cancer, Hypertension Additional Family Medical History / Comment(s): Father had skin cancer. Medications and Allergies Home Medications Medication Instructions Recorded Confirmed Type Ferrous Sulfate [Iron (65 MG 325 mg PO DAILY 03/27/18 10/12/21 History Elemental)] levETIRAcetam [Keppra] 500 mg PO BID 07/21/18 10/12/21 History QUEtiapine [SEROquel] 100 mg PO HS 30 Days #30 tab 02/10/20 08/11/22 Rx Nystatin 100,000 Unit/gm Powd 1 applic TOPICAL BID PRN 09/16/19 10/12/21 History [Mycostatin Powder] Escitalopram Oxalate [Lexapro] 20 mg PO DAILY 12/19/19 10/12/21 History Pantoprazole [Protonix] 40 mg PO DAILY 12/19/19 10/12/21 History amLODIPine [Norvasc] 5 mg PO DAILY 90 Days #90 tab 12/22/19 10/12/21 Rx QUEtiapine [SEROquel] 25 mg PO BID@0900,1200 09/17/20 10/12/21 History Albuterol Sulfate [Ventolin HFA] 2 puff INHALATION RT-DAILY 10/12/21 10/12/21 History Aspirin EC [Ecotrin Low Dose] 81 mg PO DAILY 10/12/21 10/12/21 History Atorvastatin [Lipitor] 20 mg PO HS 10/12/21 10/12/21 History Calcium Citrate/Vitamin D3 1 tab PO DAILY 10/12/21 10/12/21 History [Citracal + D Maximum Caplet] Cholecalciferol [Vitamin D3 (25 25 mcg PO DAILY 10/12/21 10/12/21 History Mcg = 1000 Iu)] Gabapentin [Neurontin] 100 mg PO DAILY 10/12/21 10/12/21 History Ibuprofen [Motrin Ib] 200 mg PO DAILY 10/12/21 10/12/21 History Ibuprofen [Motrin Ib] 400 mg PO HS 10/12/21 10/12/21 History Insulin Glargine/Lixisenatide 30 units SQ HS 10/12/21 10/12/21 History [Soliqua 100 Unit-33 Mcg/ml Pen] Ipratropium-Albuterol Nebulize 3 ml INHALATION RT-QID PRN 10/12/21 10/12/21 History [Duoneb 0.5 mg-3 mg/3 ml Soln] Loperamide HCl [Imodium A-D] 2 - 4 mg PO QID PRN 10/12/21 10/12/21 History Prednisolone Acetate/Pf 1 drop RIGHT EYE SUFRSA 10/12/21 10/12/21 History [Prednisolone Acet 1% Eye Drop] Sodium Chloride 5% Ophth Soln 1 drop BOTH EYES BID 10/12/21 10/12/21 History [Amanda 128] Terbinafine [LamISIL] 250 mg PO DAILY 10/12/21 10/12/21 History Allergies Allergy/AdvReac Type Severity Reaction Status Date / Time Latex, Natural Rubber Allergy Itching Verified 10/12/21 13:25 sulfamethoxazole Allergy Rash/Hives Verified 10/12/21 13:25 [From Bactrim] trimethoprim [From Bactrim] Allergy Rash/Hives Verified 10/12/21 13:25 Physical Exam Vitals: Vital Signs Temp Pulse Pulse Resp BP BP Pulse Ox 10/13/21 02:00 98.3 F 60 20 181/74 93 L 10/12/21 18:37 98.7 F 78 16 142/73 90 L 10/12/21 17:39 77 20 132/77 96 10/12/21 16:51 98 F 77 16 124/56 95 10/12/21 16:00 59 L 20 133/63 97 10/12/21 15:00 60 18 124/44 95 10/12/21 14:00 47 L 18 122/47 98 10/12/21 13:00 59 L 20 103/53 99 10/12/21 12:00 56 L 18 142/56 99 10/12/21 11:00 60 18 152/65 10/12/21 10:49 16 152/65 10/12/21 10:10 99.0 F 60 20 152/65 94 L 10/12/21 10:05 88 L 10/12/21 09:56 98.3 F 56 L 18 173/52 91 L Intake and Output 10/12/21 10/13/21 10/13/21 22:59 06:59 14:59 Other: Voiding Method Toilet # Voids 2 Weight 86.183 kg PHYSICAL EXAMINATION VITAL SIGNS: Reviewed General: The patient is awake and alert, in no distress, and does not appear acutely ill. Skin: Skin is warm and dry and no rashes or lesions are noted. Eye: Pupils are equal, round and reactive to light, extra-ocular movements are intact; there is normal conjunctiva bilaterally. Ears, nose, mouth and throat: There are moist mucous membranes and no oral lesions. Neck: The neck is supple, there is no tenderness or JVD. Cardiovascular: There is regular rate and rhythm. No murmur, rub or gallop is appreciated. Respiratory: Lungs are diminished to auscultation, respirations are non- labored, breath sounds are equal. Gastrointestinal: Soft, non-distended, non-tender abdomen without masses or organomegaly noted. There is no rebound or guarding present. Bowel sounds are unremarkable. Back: There is no tenderness to palpation in the midline. There is no obvious deformity. Musculoskeletal: Normal ROM, no tenderness, There is no pedal edema. There is no calf tenderness or swelling. Extremities: Mild bilateral edema Vascular: Femoral pulse is normal. Posterior tibial pulses are normal .Dorsalis pedis is palpable. Neurological: CN II-XII intact. There are no obvious motor or sensory deficits. Speech is normal. Psychiatric: Cooperative, appropriate mood & affect, normal judgment Results 10/13/21 05:38 10/13/21 05:38 Cardiac Enzymes 10/12/21 10/12/21 10/12/21 Range/Units 10:33 10:33 15:47 AST 23 (14-36) U/L Troponin I 0.021 0.016 (0.000-0.034) ng/mL 10/12/21 Range/Units 17:29 AST (14-36) U/L Troponin I 0.017 (0.000-0.034) ng/mL Coagulation 10/12/21 Range/Units 10:33 PT 10.1 (9.0-12.0) sec APTT 24.8 (22.0-30.0) sec CBC 10/12/21 Range/Units 10:33 WBC 6.5 (3.8-10.6) k/uL RBC 4.82 (3.80-5.40) m/uL Hgb 13.7 (11.4-16.0) gm/dL Hct 43.0 (34.0-46.0) % Plt Count 108 L (150-450) k/uL Comprehensive Metabolic Panel 10/12/21 Range/Units 10:33 Sodium 139 (137-145) mmol/L Potassium 4.7 (3.5-5.1) mmol/L Chloride 99 (98-107) mmol/L Carbon Dioxide 28 (22-30) mmol/L BUN 24 H (7-17) mg/dL Creatinine 2.02 H (0.52-1.04) mg/dL Glucose 165 H (74-99) mg/dL Calcium 8.4 (8.4-10.2) mg/dL AST 23 (14-36) U/L ALT 14 (4-34) U/L Alkaline Phosphatase 96 (38-126) U/L Total Protein 6.1 L (6.3-8.2) g/dL Albumin 3.7 (3.5-5.0) g/dL Current Medications Generic Name Dose Route Start Last Admin Trade Name Freq PRN Reason Stop Dose Admin Acetaminophen 650 mg 10/12/21 12:15 Acetaminophen Tab 325 Mg Tab PO Q6HR PRN Mild Pain or Fever > 100.5 Albuterol Sulfate 2 puff 10/13/21 08:00 Albuterol Hfa Inhaler INHALATION RT-DAILY ALEXSANDER Amlodipine Besylate 5 mg 10/13/21 09:00 Amlodipine 5 Mg Tab PO DAILY ALEXSANDER Aspirin 81 mg 10/13/21 09:00 Aspirin 81 Mg PO DAILY ALEXSANDER Atorvastatin Calcium 20 mg 10/12/21 21:00 10/12/21 21:07 Atorvastatin 20 Mg Tab PO 20 mg HS ALEXSANDER Administration Escitalopram Oxalate 20 mg 10/13/21 09:00 Escitalopram 20 Mg Tab PO DAILY ALEXSANDER Ferrous Sulfate 325 mg 10/13/21 09:00 Ferrous Sulfate 325 Mg Tab PO DAILY ALEXSANDER Sodium Chloride 1,000 mls @ 75 mls/hr 10/12/21 12:15 10/12/21 21:07 Saline 0.9% IV 75 mls/hr .[id number] ALEXSANDER Administration Azithromycin 500 mg/ Sodium 250 mls @ 250 mls/hr 10/13/21 09:00 Chloride IVPB 10/15/21 09:59 DAILY ALEXSANDER Protocol Ceftriaxone Sodium 1 gm/ 50 mls @ 100 mls/hr 10/13/21 09:00 Sodium Chloride IVPB Q24HR ALEXSANDER Protocol Levetiracetam 500 mg 10/12/21 21:00 10/12/21 21:06 Levetiracetam 500 Mg Tab PO 500 mg BID ALEXSANDER Administration Methylprednisolone Sodium Succinate 40 mg 10/13/21 05:00 10/13/21 05:57 Methylprednisolone Sod Succi 40 Mg/Ml 1 Ml Vial IV 40 mg Q8H ALEXSANDER Administration Naloxone HCl 0.2 mg 10/12/21 12:15 Naloxone 0.4 Mg/Ml 1 Ml Vial IV Q2M PRN Opioid Reversal Nystatin 1 applic 10/12/21 19:23 Nystatin 100,000 Unit/Gm Powd 15 Gm TOPICAL BID PRN Rash Protocol Pantoprazole Sodium 40 mg 10/13/21 07:30 Pantoprazole 40 Mg Tablet PO [id number] ALEXSANDER Prednisolone Acetate 1 drops 10/13/21 09:00 Prednisolone Acetate 1% Ophth Drops 5 Ml Btl RIGHT EYE SUFRSA ALEXSANDER Quetiapine Fumarate 100 mg 10/12/21 21:00 10/12/21 21:06 Quetiapine 100 Mg Tab PO 100 mg HS ALEXSANDER Administration Quetiapine Fumarate 25 mg 10/13/21 09:00 Quetiapine 25 Mg Tab PO BID@0900,1200 ALEXSANDER Sodium Chloride 1 drops 10/12/21 21:00 10/13/21 05:28 Sodium Chloride 5% Ophth Drops 15 Ml Btl BOTH EYES Not Given BID ALEXSANDER Intake and Output 10/12/21 10/13/21 10/13/21 22:59 06:59 14:59 Other: Voiding Method Toilet # Voids 2 Weight 86.183 kg 10/12/21 10:33 10/12/21 10:33 Assessment and Plan Assessment: Acute on chronic diastolic congestive heart failure secondary to Covid pneumonia Proximal Atrial fibrillation Coronary artery disease Sick sinus syndrome status post pacemaker Chronic kidney disease Plan: Start IV Lasix 20 mg daily Obtained and reviewed echocardiogram telemetry monitoring Strict I's and O's and daily weights Further recommendations based on clinical course The above impression and plan of care have been discussed and directed by the signing physician. Theresa Ramachandran, nurse practitioner, acting as scribe for signing physician.
[2021-10-13] MEDS: FUROSEMIDE 10 MG/ML 2 ML VIAL IV SCH (12:45)
[2021-10-13] MEDS: SODIUM CHLORIDE 0.9% 1,000 ML IV SCH (12:46)
[2021-10-13] MEDS ORDERED: REMDESIVIR 200 MG in SODIUM CHLORIDE 0.9% 250 ML IVPB ONE (13:11)
[2021-10-13] MEDS ORDERED: DEXAMETHASONE SOD PHOSPHATE 10 MG/ML 1 ML VIAL IV SCH (13:15)
[2021-10-13] MEDS: ENOXAPARIN 30 MG/0.3 ML SYRINGE SQ SCH (14:28)
[2021-10-13 16:04] LABS: Reticulocyte % 1.4 % (0.5-2.0)
[2021-10-13 17:09] LABS: Erythrocyte Sedimentation Rate 18 mm/hr (0-20)
--- NOTE | 2021-10-13 19:55 | P.CONS ---
History of Present Illness - Reason for Consult Consult date: 10/13/21 Bicytopenia Requesting physician: Vikram Zamarripa - History of Present Illness 76 year old female admitted for covid, we have been asked to further evaluate for bicytopenia Past Medical History Past Medical History: Atrial Fibrillation, Asthma, Coronary Artery Disease (CAD), Cancer, Heart Failure, CVA/TIA, Diabetes Mellitus, Eye Disorder, Hypertension, Osteoarthritis (OA), Renal Disease, Seizure Disorder Additional Past Medical History / Comment(s): Brain mass/fall with intracranial bleed/hematome-surgery at [facility], seizure after brain surgery, paroxysmal Afib, IDDM type II, neuropathy bilateral feet, orthostatic hypotension, SSS with pacemaker, L1 compression fx, CKD stage III, blind in L eye, UTIs, lower GI bleed, gastritis, gastric erosion, CDiff colitis, skin cancer with removals, past L arm fracture, past R arm fracture x2. History of Any Multi-Drug Resistant Organisms: None Reported, MRSA Year Discovered:: 01/26/19 MDRO Source:: URINE Past Surgical History: Cholecystectomy, Heart Catheterization, Heart Catheterization With Stent, Hysterectomy, Pacemaker Additional Past Surgical History / Comment(s): Evacuation of intracranial hematoma and ressection of hemorrhagic mass, pacemaker 2016, PCI with stent 06/06/18, EGD/colonoscopy, R eye corneal implant/cataract removal, EGD 06/2018, colonoscopy, skin cancer removal. Past Anesthesia/Blood Transfusion Reactions: No Reported Reaction Additional Past Anesthesia/Blood Transfusion Reaction / Comm: . Date of Last Stent Placement:: 06/06/18 Type of Cardiac Device: Permanent Pacemaker Device Placement Date:: 04/2016 Past Psychological History: Anxiety, Depression Additional Psychological History / Comment(s): Pt has her son and daughter in law living with her. She uses a walker and has a wheelchair for longer distaces. She no longer drives, her [facility] drives [facility]. Her son manages her medications. Daughter in law cooks. Pt states her depression has been increased intermittently but denies any thoughts/plans of suicide. Smoking Status: Never smoker Past Alcohol Use History: None Reported Past Drug Use History: None Reported - Past Family History Mother Family Medical History: Cancer, COPD, Hypertension Additional Family Medical History / Comment(s): Mother had bone cancer. Father Family Medical History: Cancer, Hypertension Additional Family Medical History / Comment(s): Father had skin cancer. Medications and Allergies Home Medications Medication Instructions Recorded Confirmed Type Ferrous Sulfate [Iron (65 MG 325 mg PO DAILY 03/27/18 10/12/21 History Elemental)] levETIRAcetam [Keppra] 500 mg PO BID 07/21/18 10/12/21 History QUEtiapine [SEROquel] 100 mg PO HS 30 Days #30 tab 04/13/19 10/12/21 Rx Nystatin 100,000 Unit/gm Powd 1 applic TOPICAL BID PRN 09/16/19 10/12/21 History [Mycostatin Powder] Escitalopram Oxalate [Lexapro] 20 mg PO DAILY 12/19/19 10/12/21 History Pantoprazole [Protonix] 40 mg PO DAILY 12/19/19 10/12/21 History amLODIPine [Norvasc] 5 mg PO DAILY 90 Days #90 tab 12/22/19 10/12/21 Rx QUEtiapine [SEROquel] 25 mg PO BID@0900,1200 09/17/20 10/12/21 History Albuterol Sulfate [Ventolin HFA] 2 puff INHALATION RT-DAILY 10/12/21 10/12/21 History Aspirin EC [Ecotrin Low Dose] 81 mg PO DAILY 10/12/21 10/12/21 History Atorvastatin [Lipitor] 20 mg PO HS 10/12/21 10/12/21 History Calcium Citrate/Vitamin D3 1 tab PO DAILY 10/12/21 10/12/21 History [Citracal + D Maximum Caplet] Cholecalciferol [Vitamin D3 (25 25 mcg PO DAILY 10/12/21 10/12/21 History Mcg = 1000 Iu)] Gabapentin [Neurontin] 100 mg PO DAILY 10/12/21 10/12/21 History Ibuprofen [Motrin Ib] 200 mg PO DAILY 10/12/21 10/12/21 History Ibuprofen [Motrin Ib] 400 mg PO HS 10/12/21 10/12/21 History Insulin Glargine/Lixisenatide 30 units SQ HS 10/12/21 10/12/21 History [Soliqua 100 Unit-33 Mcg/ml Pen] Ipratropium-Albuterol Nebulize 3 ml INHALATION RT-QID PRN 10/12/21 10/12/21 History [Duoneb 0.5 mg-3 mg/3 ml Soln] Loperamide HCl [Imodium A-D] 2 - 4 mg PO QID PRN 10/12/21 10/12/21 History Prednisolone Acetate/Pf 1 drop RIGHT EYE SUFRSA 10/12/21 10/12/21 History [Prednisolone Acet 1% Eye Drop] Sodium Chloride 5% Ophth Soln 1 drop BOTH EYES BID 10/12/21 10/12/21 History [Amanda 128] Terbinafine [LamISIL] 250 mg PO DAILY 10/12/21 10/12/21 History Allergies Allergy/AdvReac Type Severity Reaction Status Date / Time Latex, Natural Rubber Allergy Itching Verified 10/12/21 13:25 sulfamethoxazole Allergy Rash/Hives Verified 10/12/21 13:25 [From Bactrim] trimethoprim [From Bactrim] Allergy Rash/Hives Verified 10/12/21 13:25 Physical Exam Vitals: Vital Signs Temp Pulse Pulse Resp BP BP Pulse Ox 10/13/21 09:58 98.0 F 71 18 130/68 97 10/13/21 08:41 93 L 10/13/21 08:00 97.7 F 65 16 135/72 96 10/13/21 02:00 98.3 F 60 20 181/74 93 L 10/12/21 18:37 98.7 F 78 16 142/73 90 L 10/12/21 17:39 77 20 132/77 96 10/12/21 16:51 98 F 77 16 124/56 95 10/12/21 16:00 59 L 20 133/63 97 10/12/21 15:00 60 18 124/44 95 Intake and Output 10/12/21 10/13/21 10/13/21 22:59 06:59 14:59 Other: Voiding Method Toilet # Voids 2 Weight 86.183 kg 86.183 kg limited due to covid Results CBC & Chem 7: 10/13/21 05:38 10/13/21 05:38 Labs: Abnormal Lab Results - Last 24 Hours (Table) 10/13/21 10/13/21 Range/Units 05:38 05:38 WBC 4.03 L (4.50-10.00) X 10*3/uL MCHC 31.4 L (32.0-37.0) g/dL Plt Count 92 L (140-440) X 10*3/uL Plt Count Comment DECREASED A Lymphocytes # 0.74 L (0.90-5.00) X 10*3/uL Monocytes # 0.10 L (0.20-1.00) X 10*3/uL Eosinophils # 0 L (0.04-0.35) X 10*3/uL Creatinine 1.7 H (0.6-1.5) mg/dL Est GFR (CKD-EPI)AfAm 33.1 L (60.0-200.0) Est GFR (CKD-EPI)NonAf 28.6 L (60.0-200.0) Glucose 251 H (70-110) mg/dL Calcium 8.5 L (8.7-10.3) mg/dL Total Protein 6.1 L (6.2-8.2) g/dL Microbiology - Last 24 Hours (Table) 10/12/21 11:20 Blood Culture - Preliminary Blood No Growth after 24 hours 10/12/21 11:40 Blood Culture - Preliminary Blood No Growth after 24 hours 10/12/21 10:24 Urine Culture - Preliminary Urine,Voided Gram Neg Bacilli Assessment and Plan (1) Thrombocytopenia Narrative/Plan: - When trending it appears she has a low normal to mild below normal platelet count at baseline, as well as some chronic kidney disease (unknown stage). With current acute infectious and inflammatory picture this is likely the primary cause of her trending lower platelets, but due to the length of suboptimal levels a full work-up has been ordered. Current Visit: Yes Status: Acute Code(s): D69.6 - THROMBOCYTOPENIA, UNSPECIFIED SNOMED Code(s): 745022475 (2) COVID Current Visit: Yes Status: Acute Code(s): U07.1 - COVID-19 SNOMED Code(s): 395359088 (3) Pneumonia Current Visit: Yes Status: Acute Code(s): J18.9 - PNEUMONIA, UNSPECIFIED ORGANISM SNOMED Code(s): 102938296 (4) History of uterine cancer Current Visit: No Status: Acute Code(s): Z85.42 - PERSONAL HISTORY OF MALIGNANT NEOPLASM OF OTH PRT UTERUS SNOMED Code(s): 084672063 (5) Leukopenia Current Visit: Yes Status: Acute Code(s): D72.819 - DECREASED WHITE BLOOD CELL COUNT, UNSPECIFIED SNOMED Code(s): 02556100 Plan: Dr. Pace: I have completed the full history and physical and developed the above impression and plan, agree with dictation, dictated as a scribe.
[2021-10-13] MEDS: ATORVASTATIN 20 MG TAB PO SCH (20:52)
[2021-10-13] MEDS: QUEtiapine 100 MG TAB PO SCH (20:52)
--- NOTE | 2021-10-13 22:11 | P.CONS ---
History of Present Illness - Reason for Consult Consult date: 10/13/21 Covid 19 Requesting physician: Vikram Zamarripa - Chief Complaint Shortness of breath and cough x 3 days - History of Present Illness Patient is a 76-year-old female with a past medical history significant for atrial fibrillation coronary disease diabetes mellitus h ypertension osteoarthritis history of brain mass intracranial bleed presenting to the hospital yesterday morning for evaluation of mental status changes according to the son the patient was hallucinating claiming there were children in the house and there were none present patient apparently has been experiencing frequent urination and dysuria and also having a cough and shortness of breath symptom has been going on for about 2 days before presentation to the hospital the patient denies any headache or URI symptoms shortness of breath on minimal exertion she also have a cough which is moderate in intensity with a clear sputum no hemoptysis some nausea but no vomiting no abdominal pain no diarrhea urinary symptoms as mentioned above with the symptom the patient was evaluated on arrival to the ER the patient did have a low-grade fever of 99 degrees for right patient was hypoxic with O2 sats of 88% on room air is currently 96% on 3 L nasal cannula patient did have a normal white count BUN/creatinine was elevated but did have some improvement today the results are normal patient did have positive COVID test and a positive UA patient did have a chest x-ray right lower lobe infiltrate or atelectasis pleural effusion patient was admitted to the hospital infectious disease was consulted for further management of underlying condition Review of Systems Positive point has been mentioned in the HPI rest of the systems are negative Past Medical History Past Medical History: Atrial Fibrillation, Asthma, Coronary Artery Disease (CAD), Cancer, Heart Failure, CVA/TIA, Diabetes Mellitus, Eye Disorder, Hypertension, Osteoarthritis (OA), Renal Disease, Seizure Disorder Additional Past Medical History / Comment(s): Brain mass/fall with intracranial bleed/hematome-surgery at [facility], seizure after brain surgery, paroxysmal Afib, IDDM type II, neuropathy bilateral feet, orthostatic hypotension, SSS with pacemaker, L1 compression fx, CKD stage III, blind in L eye, UTIs, lower GI bleed, gastritis, gastric erosion, CDiff colitis, skin cancer with removals, past L arm fracture, past R arm fracture x2. History of Any Multi-Drug Resistant Organisms: None Reported, MRSA Year Discovered:: 01/26/19 MDRO Source:: URINE Past Surgical History: Cholecystectomy, Heart Catheterization, Heart Catheterization With Stent, Hysterectomy, Pacemaker Additional Past Surgical History / Comment(s): Evacuation of intracranial hematoma and ressection of hemorrhagic mass, pacemaker 2016, PCI with stent 06/06/18, EGD/colonoscopy, R eye corneal implant/cataract removal, EGD 06/2018, colonoscopy, skin cancer removal. Past Anesthesia/Blood Transfusion Reactions: No Reported Reaction Additional Past Anesthesia/Blood Transfusion Reaction / Comm: . Date of Last Stent Placement:: 06/06/18 Type of Cardiac Device: Permanent Pacemaker Device Placement Date:: 04/2016 Past Psychological History: Anxiety, Depression Additional Psychological History / Comment(s): Pt has her son and daughter in law living with her. She uses a walker and has a wheelchair for longer distaces. She no longer drives, her family drives her to appts. Her son manages her medications. Daughter in law cooks. Pt states her depression has been increased intermittently but denies any thoughts/plans of suicide. Smoking Status: Never smoker Past Alcohol Use History: None Reported Past Drug Use History: None Reported - Past Family History Mother Family Medical History: Cancer, COPD, Hypertension Additional Family Medical History / Comment(s): Mother had bone cancer. Father Family Medical History: Cancer, Hypertension Additional Family Medical History / Comment(s): Father had skin cancer. Medications and Allergies Home Medications Medication Instructions Recorded Confirmed Type Ferrous Sulfate [Iron (65 MG 325 mg PO DAILY 03/27/18 10/12/21 History Elemental)] levETIRAcetam [Keppra] 500 mg PO BID 07/21/18 10/12/21 History QUEtiapine [SEROquel] 100 mg PO HS 30 Days #30 tab 04/13/19 10/12/21 Rx Nystatin 100,000 Unit/gm Powd 1 applic TOPICAL BID PRN 09/16/19 10/12/21 History [Mycostatin Powder] Escitalopram Oxalate [Lexapro] 20 mg PO DAILY 12/19/19 10/12/21 History Pantoprazole [Protonix] 40 mg PO DAILY 12/19/19 10/12/21 History amLODIPine [Norvasc] 5 mg PO DAILY 90 Days #90 tab 12/22/19 10/12/21 Rx QUEtiapine [SEROquel] 25 mg PO BID@0900,1200 09/17/20 10/12/21 History Albuterol Sulfate [Ventolin HFA] 2 puff INHALATION RT-DAILY 10/12/21 10/12/21 History Aspirin EC [Ecotrin Low Dose] 81 mg PO DAILY 10/12/21 10/12/21 History Atorvastatin [Lipitor] 20 mg PO HS 10/12/21 10/12/21 History Calcium Citrate/Vitamin D3 1 tab PO DAILY 10/12/21 10/12/21 History [Citracal + D Maximum Caplet] Cholecalciferol [Vitamin D3 (25 25 mcg PO DAILY 10/12/21 10/12/21 History Mcg = 1000 Iu)] Ibuprofen [Motrin Ib] 400 mg PO HS 10/12/21 10/12/21 History Insulin Glargine/Lixisenatide 30 units SQ HS 10/12/21 10/12/21 History [Soliqua 100 Unit-33 Mcg/ml Pen] Ipratropium-Albuterol Nebulize 3 ml INHALATION RT-QID PRN 10/12/21 10/12/21 History [Duoneb 0.5 mg-3 mg/3 ml Soln] Prednisolone Acetate/Pf 1 drop RIGHT EYE SUFRSA 10/12/21 10/12/21 History [Prednisolone Acet 1% Eye Drop] Sodium Chloride 5% Ophth Soln 1 drop BOTH EYES BID 10/12/21 10/12/21 History [Amanda 128] Furosemide [Lasix] 20 mg PO DAILY 90 Days #90 tab 10/18/21 Rx lisinopriL [Zestril] 20 mg PO DAILY 90 Days #90 tab 10/18/21 Rx Allergies Allergy/AdvReac Type Severity Reaction Status Date / Time Latex, Natural Rubber Allergy Itching Verified 10/12/21 13:25 sulfamethoxazole Allergy Rash/Hives Verified 10/12/21 13:25 [From Bactrim] trimethoprim [From Bactrim] Allergy Rash/Hives Verified 10/12/21 13:25 Physical Exam Vitals: Vital Signs Temp Pulse Pulse Resp BP BP Pulse Ox 10/13/21 09:58 98.0 F 71 18 130/68 97 10/13/21 08:41 93 L 10/13/21 08:00 97.7 F 65 16 135/72 96 10/13/21 02:00 98.3 F 60 20 181/74 93 L 10/12/21 18:37 98.7 F 78 16 142/73 90 L 10/12/21 17:39 77 20 132/77 96 10/12/21 16:51 98 F 77 16 124/56 95 10/12/21 16:00 59 L 20 133/63 97 10/12/21 15:00 60 18 124/44 95 10/12/21 14:00 47 L 18 122/47 98 10/12/21 13:00 59 L 20 103/53 99 10/12/21 12:00 56 L 18 142/56 99 Intake and Output 10/12/21 10/13/21 10/13/21 22:59 06:59 14:59 Other: Voiding Method Toilet # Voids 2 Weight 86.183 kg 86.183 kg GENERAL DESCRIPTION: Elderly female lying in bed, no distress. No tachypnea or accessory muscle of respiration use. HEENT: Shows Pallor , no scleral icterus. Oral mucous membrane is dry. No pharyngeal erythema or thrush NECK: Trachea central, no thyromegaly. LUNGS: Unlabored breathing. Coarse breath sounds bilaterally HEART: S1, S2, regular rate and rhythm. No loud murmur ABDOMEN: Soft, no tenderness , guarding or rigidity, no organomegaly EXTREMITIES: No edema of feet. SKIN: No rash, no masses palpable. NEUROLOGICAL: The patient is awake, alert, oriented x3, mood and affect normal. Results CBC & Chem 7: 10/18/21 11:14 10/18/21 11:14 Labs: Abnormal Lab Results - Last 24 Hours (Table) 10/13/21 10/13/21 Range/Units 05:38 05:38 WBC 4.03 L (4.50-10.00) X 10*3/uL MCHC 31.4 L (32.0-37.0) g/dL Plt Count 92 L (140-440) X 10*3/uL Plt Count Comment DECREASED A Lymphocytes # 0.74 L (0.90-5.00) X 10*3/uL Monocytes # 0.10 L (0.20-1.00) X 10*3/uL Eosinophils # 0 L (0.04-0.35) X 10*3/uL Creatinine 1.7 H (0.6-1.5) mg/dL Est GFR (CKD-EPI)AfAm 33.1 L (60.0-200.0) Est GFR (CKD-EPI)NonAf 28.6 L (60.0-200.0) Glucose 251 H (70-110) mg/dL Calcium 8.5 L (8.7-10.3) mg/dL Total Protein 6.1 L (6.2-8.2) g/dL Microbiology - Last 24 Hours (Table) 10/12/21 10:24 Urine Culture - Preliminary Urine,Voided Assessment and Plan (1) COVID Current Visit: Yes Status: Acute Code(s): U07.1 - COVID-19 SNOMED Code(s): 089391804 (2) UTI (urinary tract infection) Current Visit: Yes Status: Acute Code(s): N39.0 - URINARY TRACT INFECTION, SITE NOT SPECIFIED SNOMED Code(s): 39121416 Plan: 1patient presented to hospital with hallucination and mental status changes in this patient also complaining of shortness of breath and a cough with evidence of right-sided infiltrate and a positive COVID test concerning for COVID- pneumonia in this patient symptom has been going on for the last 3 days within the 7 days window for remdesivir, the patient also have urinary symptoms and a positive UA and likely component of symptomatic urinary tract infection. 2patient was started on remdesivir 5-day protocol continue with Solu-Medrol hold and Lovenox zinc and ascorbic acid. 3continue with Rocephin to cover for her UTI evaluated for urine culture to finalize. 4we will check inflammatory markers. 5droplet isolation and respiratory support. We will follow on clinical condition and cultures to further adjust medication if needed Thank you for this consultation will follow this patient along with you Time with Patient: Greater than 30
--- NOTE | 2021-10-13 22:50 | HP ---
HISTORY AND PHYSICAL HISTORY OF PRESENT ILLNESS: Known history of atrial fibrillation, anticoagulated, secondary to coronary artery disease, sick sinus syndrome, congestive heart failure hypertension, dyslipidemia, chronic kidney disease stage 3. She came in with elevated BNP and dehydration, altered mental status, increased shortness of breath. She had COVID pneumonia, UTI, and elevated BNP. EKG shows some nonspecific ST-T changes. Troponins are negative x3. BUN is 24, creatinine 0.02. Echo, 55% to 60% in 2020 with moderate mitral calcification. She is pleasantly confused. She needs to be set up for home oxygen at home. BNP is elevated as mentioned above. COVID and CHF at this point IV Lasix also. REVIEW OF SYSTEMS: A 14-point review of systems otherwise negative except for extreme weakness, fatigue, and altered mental status, poor nutrition. PAST MEDICAL HISTORY: Atrial fibrillation, asthma, coronary artery disease, heart failure, CVA, TIA, diabetes mellitus, hypertension, end-stage COPD without any oxygen at home and she needs oxygen setup, renal disease, seizure disorder, history of MRSA. PAST SURGICAL HISTORY: Cholecystectomy, heart catheterization, hysterectomy, pacemaker, multiple stents. FAMILY HISTORY: Mother; cancer, COPD, hypertension. Father; cancer, hypertension. MEDICATIONS: See list, they were reviewed. ALLERGIES: Reviewed. PHYSICAL EXAMINATION: VITAL SIGNS: Temperature 98.3, pulse 67, respiratory rate 18 to 20, blood pressure is 150s to 180s over 60s to 70s, O2 saturation 93 to 98. CARDIOVASCULAR: S1, S2. LUNGS: Wheeze and rhonchi x4. HEMATOLOGIC: Negative Homans. PSYCH: Fair mood and affect. NEUROLOGIC: Alert and oriented x3. Pupils equal, round, and reactive. Cranial nerves are intact. LABORATORY DATA: White count 4.0, hemoglobin 13.5. BUN is 21, creatinine 1.7, sodium 139, potassium 4.7. . ASSESSMENT: Acute on chronic diastolic congestive heart failure secondary to COVID pneumonia, paroxysmal atrial fibrillation, coronary artery disease, sick sinus syndrome, status post pacemaker, chronic kidney disease. Continue with Lasix. Continue with steroids for COVID. Probable aspiration pneumonia, was started on azithromycin, Rocephin especially she has large urinary tract infection with sepsis secondary to urinary tract infection, also with large amount of white cells in the urine. Infectious Disease, Cardiology, Pulmonary. Prognosis, extremely guarded. MMODL / IJN: [id number] /
[2021-10-13 23:43] LABS: Rheumatoid Factor, Qnt <10 IU/mL (0-15)
[2021-10-13 23:44] LABS: Immunoglobulin M 33.9 mg/dL (40.0-280.0)
[2021-10-13 23:46] LABS: % Iron Saturation 15.84 (12.00-45.00); Iron 42 ug/dL (50-170); LDH 215 U/L (120-246); Total Iron Binding Capacity 265 ug/dL (228-460)
[2021-10-13 23:52] LABS: Protein, Total 5.8 g/dL (6.2-8.2)
[2021-10-14] MEDS: methylPREDNISolone SOD SUCCI 40 MG/ML 1 ML VIAL IV SCH ×4 (02:12→20:52)
[2021-10-14] MEDS: SODIUM CHLORIDE 0.9% 1,000 ML IV SCH ×2 (06:02→20:52)
[2021-10-14] MEDS: ALBUTEROL HFA INHALER INHALATION SCH (08:18)
[2021-10-14] MEDS: amLODIPine 5 MG TAB PO SCH (08:53)
[2021-10-14] MEDS: ESCITALOPRAM 20 MG TAB PO SCH (08:53)
[2021-10-14] MEDS: QUEtiapine 25 MG TAB PO SCH ×2 (08:53→13:13)
[2021-10-14] MEDS: FERROUS SULFATE 325 MG TAB PO SCH (08:53)
[2021-10-14] MEDS: ZINC SULFATE 220 MG CAP PO SCH (08:53)
[2021-10-14] MEDS: ENOXAPARIN 30 MG/0.3 ML SYRINGE SQ SCH (08:53)
[2021-10-14] MEDS: ASPIRIN 81 MG PO SCH (08:53)
[2021-10-14] MEDS: FUROSEMIDE 10 MG/ML 2 ML VIAL IV SCH (08:53)
[2021-10-14] MEDS: PANTOPRAZOLE 40 MG TABLET PO SCH (08:54)
[2021-10-14] MEDS: levETIRAcetam 500 MG TAB PO SCH ×2 (08:54→20:54)
[2021-10-14] MEDS: ASCORBIC ACID 500 MG TAB PO SCH (08:54)
[2021-10-14] MEDS: prednisoLONE ACETATE 1% OPHTH DROPS 5 ML BTL RIGHT EYE SCH (08:57)
[2021-10-14] MEDS: SODIUM CHLORIDE 5% OPHTH DROPS 15 ML BTL BOTH EYES SCH ×2 (08:57→20:54)
[2021-10-14 11:53] LABS: Basophils # (A) 0.01 X 10*3/uL (0.00-0.10); Basophils % (A) 0.2 %; Eosinophils # (A) 0 X 10*3/uL (0.04-0.35); Eosinophils % (A) 0 %; HCT 40.3 % (37.2-46.3); HGB 12.8 g/dL (12.0-15.0); Immature Grans, Automated 0.4 %; Lymphocytes # (A) 0.57 X 10*3/uL (0.90-5.00); Lymphocytes % (A) 10.1 %; MCH 27.9 pg (27.0-32.0); MCHC 31.8 g/dL (32.0-37.0); Monocytes # (A) 0.27 X 10*3/uL (0.20-1.00); Monocytes % (A) 4.8 %; NRBC Per 100 WBC 0 /100 WBCS (0.0-0.0); Neutrophils % (A) 84.5 %; Platelet Count 126 X 10*3/uL (140-440); RBC 4.58 X 10*6/uL (4.10-5.20); RDW 13.2 % (11.5-14.5); WBC 5.67 X 10*3/uL (4.50-10.00)
--- NOTE | 2021-10-14 12:19 | P.PN ---
Subjective Progress Note Date: 10/14/21 This is a somewhat confused 76-year-old female patient who follows in the office with Dr. Mauro. Has a history of paroxysmal atrial fibrillation not on 8 long- term anticoagulation secondary to brain hemorrhage, CAD, sick sinus syndrome status post pacemaker, chronic diastolic heart failure, hyperlipidemia, CK 80, diabetes,, seizures, brain mass. Presented with complaints of altered mental status and increased shortness of breath. Admitted with COVID pneumonia and UTI. We were consulted for CHF with elevated NT proBNP around 3700. Echocardiogram showed ejection fraction of 50-55%. She's been initiated on IV Lasix 20 mg daily. Upon examination she is resting comfortably in bed. She feels her breathing might be a little bit better. She's had no edema. She is pleasantly confused. Labs from this morning are pending. Objective - Vital Signs Vital signs: Vital Signs Temp 97.9 F 10/14/21 08:00 Pulse 61 10/14/21 08:00 Resp 18 10/14/21 08:00 BP 175/52 10/14/21 08:00 Pulse Ox 95 10/14/21 08:00 FiO2 Intake & Output 10/13/21 10/14/21 10/14/21 18:59 06:59 18:59 Intake Total 1080 Balance 1080 Weight 86.183 kg Intake: Oral 1080 Other: # Voids 4 5 # Bowel Movements 1 - Exam PHYSICAL EXAMINATION: HEENT: Head is atraumatic, normocephalic. Pupils equal, round. Neck is supple. There is no elevated jugular venous pressure. HEART EXAMINATION: Heart sounds regular, S1 and S2 normal. No murmur or gallop heard. CHEST EXAMINATION: Lungs reveal diminished air entry bilaterally with faint bibasilar crackles. No chest wall tenderness is noted on palpation or with deep breathing. ABDOMEN: Soft, nontender. Bowel sounds are heard. No organomegaly noted. EXTREMITIES: 2+ peripheral pulses with no evidence of peripheral edema and no calf tenderness noted. NEUROLOGIC patient is awake, alert and oriented x1-2. . - Labs CBC & Chem 7: 10/14/21 07:42 10/13/21 05:38 Labs: Abnormal Lab Results - Last 24 Hours (Table) 10/13/21 10/13/21 10/13/21 Range/Units 15:08 15:08 15:08 MCHC (32.0-37.0) g/dL Plt Count (140-440) X 10*3/uL Lymphocytes # (0.90-5.00) X 10*3/uL Eosinophils # (0.04-0.35) X 10*3/uL D-Dimer (<0.60) mg/L FEU Iron 42 L (50-170) ug/dL Transferrin 189.0 L (204.0-354.0) mg/dL Total Protein (PEP) 5.8 L (6.2-8.2) g/dL IgG 572.0 L (700.0-1600.0) mg/dL IgM 33.9 L (40.0-280.0) mg/dL 10/14/21 10/14/21 Range/Units 07:42 07:42 MCHC 31.8 L (32.0-37.0) g/dL Plt Count 126 L (140-440) X 10*3/uL Lymphocytes # 0.57 L (0.90-5.00) X 10*3/uL Eosinophils # 0 L (0.04-0.35) X 10*3/uL D-Dimer 0.85 H (<0.60) mg/L FEU Iron (50-170) ug/dL Transferrin (204.0-354.0) mg/dL Total Protein (PEP) (6.2-8.2) g/dL IgG (700.0-1600.0) mg/dL IgM (40.0-280.0) mg/dL Microbiology - Last 24 Hours (Table) 10/12/21 10:24 Urine Culture - Final Urine,Voided Escherichia coli 10/12/21 11:20 Blood Culture - Preliminary Blood No Growth after 24 hours 10/12/21 11:40 Blood Culture - Preliminary Blood No Growth after 24 hours Assessment and Plan Assessment: #1 COVID with evidence of pneumonia #2 acute on chronic diastolic congestive heart failure likely exacerbated secondary to Covid infection. #3 CAD #4 paroxysmal atrial fibrillation #5 sick sinus syndrome status post pacemaker #6 CKD Plan: From cardiology's perspective we will continue IV Lasix 20 mg daily at this time. Continue daily weights, monitoring intake and output and monitor renal function and electrolytes. We'll continue to follow the patient provide further recommendations accordingly. [employer] note has been reviewed, I agree with a documented findings and plan of care. Patient was seen and examined.
[2021-10-14 12:36] LABS: African American GFR (CKD) 42.6 (60.0-200.0); Albumin 3.6 g/dL (3.8-4.9); Albumin/Globulin Ratio 1.74 (1.60-3.17); Anion Gap 12.6 mmol/L (10.00-18.00); BUN/Creat Ratio 17.54 Ratio (12.00-20.00); Blood Urea Nitrogen 24.2 mg/dL (9.0-27.0); Calcium 8.5 mg/dL (8.7-10.3); Carbon Dioxide 25.9 mmol/L (20.0-27.5); Globulin 2.1 g/dL (1.6-3.3); Non-African American GFR(CKD) 36.8 (60.0-200.0); Potassium 4.9 mmol/L (3.5-5.5); Total Bilirubin 0.3 mg/dL (0.30-1.20); Total Protein 5.7 g/dL (6.2-8.2)
[2021-10-14] MEDS: REMDESIVIR 100 MG in SODIUM CHLORIDE 0.9% 250 ML IVPB SCH (16:27)
[2021-10-14] MEDS: ATORVASTATIN 20 MG TAB PO SCH (20:52)
[2021-10-14] MEDS: QUEtiapine 100 MG TAB PO SCH (20:54)
--- NOTE | 2021-10-14 21:03 | P.PN ---
Subjective Progress Note Date: 10/14/21 Principal diagnosis: Covid 19 Pneumonia Patient is a 76-year old female with multiple comorbidities presented to hospital with increasing shortness of breath cough in this patient with a positive COVID test and evidence of pneumonia on the x-ray concerning for acute COVID-19 pneumonia. On today's evaluation that is 10/14/2021, the patient denies having any fever or any chills, the patient is breathing slightly comfortably on nasal cannula oxygen patient denies any chest pain no worsening cough no nausea vomiting no abdominal pain no diarrhea Objective - Vital Signs Vital signs: Vital Signs Temp 98.0 F 10/14/21 13:50 Pulse 66 10/14/21 13:50 Resp 18 10/14/21 13:50 BP 173/67 10/14/21 13:50 Pulse Ox 98 10/14/21 13:50 FiO2 Intake & Output 10/13/21 10/14/21 10/14/21 18:59 06:59 18:59 Intake Total 1080 Balance 1080 Weight 86.183 kg Intake: Oral 1080 Other: # Voids 4 5 6 # Bowel Movements 1 - Exam GENERAL DESCRIPTION: Elderly female lying in bed, no distress. No tachypnea or accessory muscle of respiration use. LUNGS: Unlabored breathing. Decrease intensity sounds HEART: S1, S2, regular rate and rhythm. No loud murmur ABDOMEN: Soft, no tenderness , guarding or rigidity, no organomegaly EXTREMITIES: No edema of feet. - Labs CBC & Chem 7: 10/14/21 07:42 10/14/21 07:42 Labs: Abnormal Lab Results - Last 24 Hours (Table) 10/13/21 10/13/21 10/13/21 Range/Units 15:08 15:08 15:08 MCHC (32.0-37.0) g/dL Plt Count (140-440) X 10*3/uL Lymphocytes # (0.90-5.00) X 10*3/uL Eosinophils # (0.04-0.35) X 10*3/uL D-Dimer (<0.60) mg/L FEU Est GFR (CKD-EPI)AfAm (60.0-200.0) Est GFR (CKD-EPI)NonAf (60.0-200.0) Glucose (70-110) mg/dL Calcium (8.7-10.3) mg/dL Iron 42 L (50-170) ug/dL Transferrin 189.0 L (204.0-354.0) mg/dL C-Reactive Protein (0.00-0.80) mg/dL Total Protein (6.2-8.2) g/dL Total Protein (PEP) 5.8 L (6.2-8.2) g/dL Albumin (3.8-4.9) g/dL IgG 572.0 L (700.0-1600.0) mg/dL IgM 33.9 L (40.0-280.0) mg/dL 10/14/21 10/14/21 10/14/21 Range/Units 07:42 07:42 07:42 MCHC 31.8 L (32.0-37.0) g/dL Plt Count 126 L (140-440) X 10*3/uL Lymphocytes # 0.57 L (0.90-5.00) X 10*3/uL Eosinophils # 0 L (0.04-0.35) X 10*3/uL D-Dimer 0.85 H (<0.60) mg/L FEU Est GFR (CKD-EPI)AfAm 42.6 L (60.0-200.0) Est GFR (CKD-EPI)NonAf 36.8 L (60.0-200.0) Glucose 315 H (70-110) mg/dL Calcium 8.5 L (8.7-10.3) mg/dL Iron (50-170) ug/dL Transferrin (204.0-354.0) mg/dL C-Reactive Protein 4.00 H (0.00-0.80) mg/dL Total Protein 5.7 L (6.2-8.2) g/dL Total Protein (PEP) (6.2-8.2) g/dL Albumin 3.6 L (3.8-4.9) g/dL IgG (700.0-1600.0) mg/dL IgM (40.0-280.0) mg/dL Microbiology - Last 24 Hours (Table) 10/12/21 11:20 Blood Culture - Preliminary Blood No Growth after 48 hours 10/12/21 11:40 Blood Culture - Preliminary Blood No Growth after 48 hours 10/12/21 10:24 Urine Culture - Final Urine,Voided Escherichia coli Assessment and Plan (1) COVID Current Visit: Yes Status: Acute Code(s): U07.1 - COVID-19 SNOMED Code(s): 004812662 (2) UTI (urinary tract infection) Current Visit: Yes Status: Acute Code(s): N39.0 - URINARY TRACT INFECTION, SITE NOT SPECIFIED SNOMED Code(s): 79869881 Plan: 1patient presented to hospital with hallucination and mental status changes in this patient also complaining of shortness of breath and a cough with evidence of right-sided infiltrate and a positive COVID test concerning for COVID- pneumonia in this patient symptom has been going on for the last 3 days within the 7 days window for remdesivir, the patient also have urinary symptoms and a positive UA and likely component of symptomatic urinary tract infection. 2patient to continue with remdesivir day # 2/5 along with Solu-Medrol hold and Lovenox zinc and ascorbic acid. 3Pt to continue with Rocephin to cover for her UTI evaluated for urine culture to finalize. 4 droplet isolation and respiratory support. Time with Patient: Less than 30
[2021-10-15] MEDS: methylPREDNISolone SOD SUCCI 40 MG/ML 1 ML VIAL IV SCH ×3 (05:35→22:58)
--- NOTE | 2021-10-15 06:36 | PN ---
PROGRESS NOTE HISTORY OF PRESENT ILLNESS: A 76-year-old white female came in with urosepsis, COVID-19, hypoxemia, history of COPD, placed on broad-spectrum antibiotics for COVID and UTI and possible aspiration pneumonia, placed on steroids. She has right-sided infiltrate on a chest x-ray. She passed a 7-day window . She has a large urinary tract infection, started on Lovenox ascorbic acid, Rocephin. She has bicytopenia for which consultation with Dr. Griffin's group was entertained. They said mild to low normal platelet count may be sign of some chronic kidney disease, probably due to infection, trending lower platelet count. We will watch her in the future. She also saw Cardiology for elevated BNP levels, and she had echo which due to a BNP of 3700 with ejection fraction of 50% to 55%. IV Lasix was given. PHYSICAL EXAMINATION: GENERAL: She is resting comfortably. She is improving daily. CARDIOVASCULAR: S1, S2. LUNGS: Scattered rhonchi and wheeze. HEMATOLOGIC: Negative Homans. PSYCH: Fair mood and affect. EXTREMITIES: 2+ edema. ASSESSMENT: 1. . 2. Metabolic encephalopathy. 3. COVID pneumonia. 4. Acute on chronic diastolic heart failure. 5. Coronary artery disease. 6. Paroxysmal atrial fibrillation. 7. Sick sinus syndrome, post pacemaker. 8. Hypoxemia due to bad chronic obstructive pulmonary disease and COVID now. She needs oxygen at home. Continue with IV Lasix. Continue with antibiotics. Await for urine culture come back. PROGNOSIS: Guarded. MMODL / IJN: [id number] /
[2021-10-15] MEDS: ALBUTEROL HFA INHALER INHALATION SCH (07:48)
[2021-10-15] MEDS: QUEtiapine 25 MG TAB PO SCH ×2 (08:51→13:16)
[2021-10-15] MEDS: ASCORBIC ACID 500 MG TAB PO SCH (08:51)
[2021-10-15] MEDS: PANTOPRAZOLE 40 MG TABLET PO SCH (08:51)
[2021-10-15] MEDS: amLODIPine 5 MG TAB PO SCH (08:51)
[2021-10-15] MEDS: ASPIRIN 81 MG PO SCH (08:51)
[2021-10-15] MEDS: FERROUS SULFATE 325 MG TAB PO SCH (08:51)
[2021-10-15] MEDS: ZINC SULFATE 220 MG CAP PO SCH (08:52)
[2021-10-15] MEDS: ENOXAPARIN 30 MG/0.3 ML SYRINGE SQ SCH (08:52)
[2021-10-15] MEDS: levETIRAcetam 500 MG TAB PO SCH ×2 (08:52→19:49)
[2021-10-15] MEDS: FUROSEMIDE 10 MG/ML 2 ML VIAL IV SCH (08:54)
[2021-10-15] MEDS: prednisoLONE ACETATE 1% OPHTH DROPS 5 ML BTL RIGHT EYE SCH (10:16)
[2021-10-15] MEDS: SODIUM CHLORIDE 5% OPHTH DROPS 15 ML BTL BOTH EYES SCH ×2 (10:17→19:55)
[2021-10-15] MEDS: SODIUM CHLORIDE 0.9% 1,000 ML IV SCH (10:22)
[2021-10-15] MEDS: ESCITALOPRAM 20 MG TAB PO SCH (10:22)
[2021-10-15 12:29] LABS: Glucose,Whole Blood 484 mg/dL (70-110)
[2021-10-15 12:56] LABS: Albumin 3.7 g/dL (3.8-4.9); Albumin/Globulin Ratio 1.65 (1.60-3.17); Anion Gap 15.5 mmol/L (10.00-18.00); BUN/Creat Ratio 21.71 Ratio (12.00-20.00); Blood Urea Nitrogen 26.7 mg/dL (9.0-27.0); Calcium 8.8 mg/dL (8.7-10.3); Carbon Dioxide 23.5 mmol/L (20.0-27.5); Globulin 2.2 g/dL (1.6-3.3); Non-African American GFR(CKD) 42.3 (60.0-200.0); Potassium 5.1 mmol/L (3.5-5.5); Total Bilirubin 0.3 mg/dL (0.30-1.20); Total Protein 5.9 g/dL (6.2-8.2)
[2021-10-15] MEDS ORDERED: DEXTROSE 50% SYRINGE 50 ML IVP PRN (13:02)
[2021-10-15 13:05] LABS: Basophils # (A) 0.01 X 10*3/uL (0.00-0.10); Basophils % (A) 0.2 %; Elliptocytes 2+; Eosinophils # (A) 0.01 X 10*3/uL (0.04-0.35); Eosinophils % (A) 0.2 %; HGB 13.1 g/dL (12.0-15.0); Immature Grans, Automated 0.5 %; Lymphocytes # (A) 0.55 X 10*3/uL (0.90-5.00); Lymphocytes % (A) 8.3 %; MCH 27.7 pg (27.0-32.0); MCV 86.7 fL (80.0-97.0); Mean Platelet Volume 11.6 fL (9.5-12.2); Monocytes # (A) 0.26 X 10*3/uL (0.20-1.00); Monocytes % (A) 3.9 %; NRBC Per 100 WBC 0 /100 WBCS (0.0-0.0); Neutrophils # (A) 5.79 X 10*3/uL (1.80-7.70); Neutrophils % (A) 86.9 %; Platelet Count 112 X 10*3/uL (140-440); RBC 4.73 X 10*6/uL (4.10-5.20); RDW 12.8 % (11.5-14.5); WBC 6.65 X 10*3/uL (4.50-10.00)
[2021-10-15] MEDS: INSULIN ASPART (NovoLOG) 100 UNIT/ML VIAL SQ SCH ×3 (13:17→22:58)
--- NOTE | 2021-10-15 15:37 | P.PN ---
Subjective Progress Note Date: 10/15/21 This is a somewhat confused 76-year-old female patient who follows in the office with Dr. Hawk. Has a history of paroxysmal atrial fibrillation not on long-term anticoagulation secondary to brain hemorrhage, CAD, sick sinus syndrome status post pacemaker, chronic diastolic heart failure, hyperlipidemia, CK 80, diabetes,, seizures, brain mass. Presented with complaints of altered mental status and increased shortness of breath. Admitted with COVID pneumonia and UTI. We were consulted for CHF with elevated NT proBNP around 3700. Echocardiogram showed ejection fraction of 50-55%. She's been initiated on IV Lasix 20 mg daily. Upon examination she is resting comfortably in bed. She feels her breathing might be a little bit better. She's had no edema. She is pleasantly confused. Labs from this morning are pending. 10/15/2021 The patient was seen and examined in the afternoon resting comfortably in bed. She is overall feeling quite a bit better. She feels her breathing has improved. She feels her edema has improved as well. Labs this morning showed improvement in her renal function with a creatinine of 1.2. She has been continued on Lasix 20 mg IV push daily. Blood pressure remains elevated. She is more alert and less confused today. Objective - Vital Signs Vital signs: Vital Signs Temp 97.9 F 10/15/21 14:00 Pulse 68 10/15/21 14:00 Resp 18 10/15/21 14:00 BP 188/65 10/15/21 14:00 Pulse Ox 95 10/15/21 14:00 FiO2 Intake & Output 10/14/21 10/15/21 10/15/21 18:59 06:59 18:59 Output Total 2200 1999 Balance -2199 -1999 Output: Urine 2199 1999 Other: Voiding Method External Catheter External Catheter # Voids 5 - Exam PHYSICAL EXAMINATION: HEENT: Head is atraumatic, normocephalic. Pupils equal, round. Neck is supple. There is no elevated jugular venous pressure. HEART EXAMINATION: Heart sounds regular, S1 and S2 normal. No murmur or gallop heard. CHEST EXAMINATION: Lungs reveal diminished air entry bilaterally. No chest wall tenderness is noted on palpation or with deep breathing. ABDOMEN: Soft, nontender. Bowel sounds are heard. No organomegaly noted. EXTREMITIES: 2+ peripheral pulses with no evidence of peripheral edema and no calf tenderness noted. NEUROLOGIC patient is awake, alert and oriented x3. . - Labs CBC & Chem 7: 10/15/21 07:46 10/15/21 07:46 Labs: Abnormal Lab Results - Last 24 Hours (Table) 10/15/21 10/15/21 10/15/21 Range/Units 07:46 07:46 12:27 Plt Count 112 L (140-440) X 10*3/uL Plt Count Comment DECREASED A Lymphocytes # 0.55 L (0.90-5.00) X 10*3/uL Eosinophils # 0.01 L (0.04-0.35) X 10*3/uL Est GFR (CKD-EPI)AfAm 49.0 L (60.0-200.0) Est GFR (CKD-EPI)NonAf 42.3 L (60.0-200.0) BUN/Creatinine Ratio 21.71 H (12.00-20.00) Ratio Glucose 380 H (70-110) mg/dL POC Glucose (mg/dL) 484 H (70-110) mg/dL Total Protein 5.9 L (6.2-8.2) g/dL Albumin 3.7 L (3.8-4.9) g/dL Microbiology - Last 24 Hours (Table) 10/12/21 11:20 Blood Culture - Preliminary Blood No Growth after 72 hours 10/12/21 11:40 Blood Culture - Preliminary Blood No Growth after 72 hours Assessment and Plan Assessment: #1 COVID with evidence of pneumonia #2 acute on chronic diastolic congestive heart failure likely exacerbated secondary to Covid infection. #3 CAD #4 paroxysmal atrial fibrillation #5 sick sinus syndrome status post pacemaker #6 CKD #7 hypertension Plan: From cardiology's perspective we will switch her to oral Lasix starting tomorrow morning. We will add lisinopril 5 mg by mouth daily for blood pressure control. Continue to follow the patient and provide further recommendations accordingly. SHANK SCOURER note has been reviewed, I agree with a documented findings and plan of care. Patient was seen and examined.
[2021-10-15] MEDS: lisinopriL 5 MG TAB PO SCH (16:33)
[2021-10-15 16:35] LABS: Glucose,Whole Blood 421 mg/dL (70-110)
[2021-10-15] MEDS: REMDESIVIR 100 MG in SODIUM CHLORIDE 0.9% 250 ML IVPB SCH (18:33)
[2021-10-15] MEDS: QUEtiapine 100 MG TAB PO SCH (19:49)
[2021-10-15] MEDS: INSULIN DETEMIR (LEVEMIR) 100 UNIT/ML SYR SQ SCH (19:49)
[2021-10-15] MEDS: ATORVASTATIN 20 MG TAB PO SCH (19:49)
[2021-10-15 20:03] LABS: Glucose,Whole Blood 259 mg/dL (70-110)
[2021-10-16] MEDS: SODIUM CHLORIDE 0.9% 1,000 ML IV SCH ×3 (04:26→21:09)
[2021-10-16] MEDS: methylPREDNISolone SOD SUCCI 40 MG/ML 1 ML VIAL IV SCH ×3 (05:57→21:05)
[2021-10-16 07:25] LABS: Glucose,Whole Blood 203 mg/dL (70-110)
--- NOTE | 2021-10-16 07:57 | P.PN ---
Subjective Progress Note Date: 10/15/21 Principal diagnosis: Covid 19 Pneumonia Patient is a 76-year old female with multiple comorbidities presented to hospital with increasing shortness of breath cough in this patient with a positive COVID test and evidence of pneumonia on the x-ray concerning for acute COVID-19 pneumonia. On today's evaluation that is 10/15/2021, the patient remains to be afebrile, the patient is feeling better and his breathing slightly comfortably on nasal cannula oxygen, the patient denies any chest pain no worsening cough denies nausea vomiting no abdominal pain no diarrhea Objective - Vital Signs Vital signs: Vital Signs Temp 97.9 F 10/15/21 14:00 Pulse 68 10/15/21 14:00 Resp 18 10/15/21 14:00 BP 188/65 10/15/21 14:00 Pulse Ox 95 10/15/21 14:00 FiO2 Intake & Output 10/14/21 10/15/21 10/15/21 18:59 06:59 18:59 Output Total 2200 2000 Balance -2199 -1999 Output: Urine 2200 1999 Other: Voiding Method External Catheter External Catheter # Voids 5 - Exam GENERAL DESCRIPTION: Elderly female lying in bed, no distress. No tachypnea or accessory muscle of respiration use. LUNGS: Unlabored breathing. Decrease intensity sounds HEART: S1, S2, regular rate and rhythm. No loud murmur ABDOMEN: Soft, no tenderness , guarding or rigidity, no organomegaly EXTREMITIES: No edema of feet. - Labs CBC & Chem 7: 10/15/21 07:46 10/15/21 07:46 Labs: Abnormal Lab Results - Last 24 Hours (Table) 10/15/21 10/15/21 10/15/21 Range/Units 07:46 07:46 12:27 Plt Count 112 L (140-440) X 10*3/uL Plt Count Comment DECREASED A Lymphocytes # 0.55 L (0.90-5.00) X 10*3/uL Eosinophils # 0.01 L (0.04-0.35) X 10*3/uL Est GFR (CKD-EPI)AfAm 49.0 L (60.0-200.0) Est GFR (CKD-EPI)NonAf 42.3 L (60.0-200.0) BUN/Creatinine Ratio 21.71 H (12.00-20.00) Ratio Glucose 380 H (70-110) mg/dL POC Glucose (mg/dL) 484 H (70-110) mg/dL Total Protein 5.9 L (6.2-8.2) g/dL Albumin 3.7 L (3.8-4.9) g/dL Microbiology - Last 24 Hours (Table) 10/12/21 11:20 Blood Culture - Preliminary Blood No Growth after 72 hours 10/12/21 11:40 Blood Culture - Preliminary Blood No Growth after 72 hours Assessment and Plan (1) COVID Current Visit: Yes Status: Acute Code(s): U07.1 - COVID-19 SNOMED Code(s): 214143568 (2) UTI (urinary tract infection) Current Visit: Yes Status: Acute Code(s): N39.0 - URINARY TRACT INFECTION, SITE NOT SPECIFIED SNOMED Code(s): 78874894 Plan: 1patient presented to hospital with hallucination and mental status changes in this patient also complaining of shortness of breath and a cough with evidence of right-sided infiltrate and a positive COVID test concerning for COVID- pneumonia in this patient symptom has been going on for the last 3 days within the 7 days window for remdesivir, the patient also have urinary symptoms and a positive UA and likely component of symptomatic urinary tract infection. 2patient to continue with remdesivir day # 3/5 along with Solu-Medrol hold and Lovenox zinc and ascorbic acid. 3patient to continue with Rocephin to cover for her UTI . Urine Has been finalized with E. coli which is a sensitive pathogen Time with Patient: Less than 30
[2021-10-16] MEDS: PANTOPRAZOLE 40 MG TABLET PO SCH (08:40)
[2021-10-16] MEDS: ASPIRIN 81 MG PO SCH (08:41)
[2021-10-16] MEDS: FUROSEMIDE 20 MG TAB PO SCH (08:41)
[2021-10-16] MEDS: FERROUS SULFATE 325 MG TAB PO SCH (08:41)
[2021-10-16] MEDS: amLODIPine 5 MG TAB PO SCH (08:41)
[2021-10-16] MEDS: SODIUM CHLORIDE 5% OPHTH DROPS 15 ML BTL BOTH EYES SCH ×2 (08:41→21:05)
[2021-10-16] MEDS: QUEtiapine 25 MG TAB PO SCH ×2 (08:41→12:45)
[2021-10-16] MEDS: ZINC SULFATE 220 MG CAP PO SCH (08:41)
[2021-10-16] MEDS: lisinopriL 5 MG TAB PO SCH (08:41)
[2021-10-16] MEDS: ASCORBIC ACID 500 MG TAB PO SCH (08:41)
[2021-10-16] MEDS: ENOXAPARIN 40 MG/0.4 ML SYRINGE SQ SCH (08:42)
[2021-10-16] MEDS: INSULIN ASPART (NovoLOG) 100 UNIT/ML VIAL SQ SCH ×4 (08:42→21:05)
[2021-10-16] MEDS: ALBUTEROL HFA INHALER INHALATION SCH (08:46)
[2021-10-16 09:10] LABS: Free Kappa Lt Chain Qnt, Serum 2.08 mg/dL (0.33-1.94); Free Lambda Lt Chain Qnt, Seru 1.95 mg/dL (0.57-2.63)
[2021-10-16] MEDS: ESCITALOPRAM 20 MG TAB PO SCH (10:01)
[2021-10-16] MEDS: levETIRAcetam 500 MG TAB PO SCH ×2 (10:01→21:05)
[2021-10-16 11:27] LABS: Glucose,Whole Blood 285 mg/dL (70-110)
[2021-10-16 12:05] LABS: Estimated Average Glucose UNC
[2021-10-16 12:14] LABS: Albumin 3.11 g/dL (3.80-4.90); Gamma Globulin 0.52 g/dL (0.70-1.50)
[2021-10-16 16:23] LABS: Glucose,Whole Blood 257 mg/dL (70-110)
[2021-10-16] MEDS: REMDESIVIR 100 MG in SODIUM CHLORIDE 0.9% 250 ML IVPB SCH (16:49)
[2021-10-16 20:44] LABS: Glucose,Whole Blood 328 mg/dL (70-110)
[2021-10-16] MEDS: QUEtiapine 100 MG TAB PO SCH (21:05)
[2021-10-16] MEDS: INSULIN DETEMIR (LEVEMIR) 100 UNIT/ML SYR SQ SCH (21:05)
[2021-10-16] MEDS: ATORVASTATIN 20 MG TAB PO SCH (21:05)
[2021-10-17 04:55] LABS: Methylmalonic Acid 0.29 umol/L (<0.40)
[2021-10-17] MEDS: methylPREDNISolone SOD SUCCI 40 MG/ML 1 ML VIAL IV SCH ×3 (05:39→21:10)
--- NOTE | 2021-10-17 06:17 | PN ---
PROGRESS NOTE A 76-year-old white female with pneumonia, COVID, UTI, altered mental status. The patient remains on COVID treatment day 5/7 remdesivir. UTI, treated with Rocephin. COVID pneumonia, continue current treatment. Altered mental status improved. She needs to be set up for home oxygen. PHYSICAL EXAMINATION: LUNGS: Scattered rhonchi, wheeze. CARDIOVASCULAR: S1, S2. HEMATOLOGY: Negative Homans. PSYCH: Fair mood and affect. ASSESSMENT: COVID pneumonia, UTI, altered mental status. Prognosis guarded. Follow up in the next 24 to 48 hours for possible discharge after day #5 of remdesivir. We will send her home. Continue on home oxygen. Prognosis guarded. MMODL / IJN: [id number] /
[2021-10-17 06:56] LABS: Glucose,Whole Blood 168 mg/dL (70-110)
--- NOTE | 2021-10-17 08:03 | P.PN ---
Subjective Progress Note Date: 10/16/21 Principal diagnosis: Covid 19 Pneumonia Patient is a 76-year old female with multiple comorbidities presented to hospital with increasing shortness of breath cough in this patient with a positive COVID test and evidence of pneumonia on the x-ray concerning for acute COVID-19 pneumonia. On today's evaluation that is 10/16/2021, the patient denies any fever or any chills, the patient is feeling better and is breathing slightly comfortably on 3 L nasal cannula oxygen, the patient denies any chest pain no worsening cough denies nausea vomiting no abdominal pain no diarrhea Objective - Vital Signs Vital signs: Vital Signs Temp 97.6 F 10/16/21 11:03 Pulse 61 10/16/21 11:03 Resp 20 10/16/21 11:03 BP 174/76 10/16/21 11:03 Pulse Ox 98 10/16/21 11:03 FiO2 Intake & Output 10/15/21 10/16/21 10/16/21 18:59 06:59 18:59 Output Total 2600 200 Balance -2600 -200 Output: Urine 2600 200 Other: Voiding Method External Catheter External Catheter External Catheter # Voids 3 - Exam GENERAL DESCRIPTION: Elderly female lying in bed, no distress. No tachypnea or accessory muscle of respiration use. LUNGS: Unlabored breathing. Decrease intensity sounds HEART: S1, S2, regular rate and rhythm. No loud murmur ABDOMEN: Soft, no tenderness , guarding or rigidity, no organomegaly EXTREMITIES: No edema of feet. - Labs CBC & Chem 7: 10/15/21 07:46 10/15/21 07:46 Labs: Abnormal Lab Results - Last 24 Hours (Table) 10/13/21 10/15/21 10/15/21 Range/Units 15:08 07:46 07:46 Plt Count 112 L (140-440) X 10*3/uL Plt Count Comment DECREASED A Lymphocytes # 0.55 L (0.90-5.00) X 10*3/uL Eosinophils # 0.01 L (0.04-0.35) X 10*3/uL Est GFR (CKD-EPI)AfAm 49.0 L (60.0-200.0) Est GFR (CKD-EPI)NonAf 42.3 L (60.0-200.0) BUN/Creatinine Ratio 21.71 H (12.00-20.00) Ratio Glucose 380 H (70-110) mg/dL POC Glucose (mg/dL) (70-110) mg/dL Total Protein 5.9 L (6.2-8.2) g/dL Albumin 3.7 L (3.8-4.9) g/dL Albumin (PEP) 3.11 L (3.80-4.90) g/dL Lpspd-5-Uotjlxtim 0.44 H (0.10-0.40) g/dL Gamma Globulins 0.52 L (0.70-1.50) g/dL Free [place] LC, Quant 2.08 H (0.33-1.94) mg/dL 10/15/21 10/15/21 10/15/21 Range/Units 12:27 16:34 20:01 Plt Count (140-440) X 10*3/uL Plt Count Comment Lymphocytes # (0.90-5.00) X 10*3/uL Eosinophils # (0.04-0.35) X 10*3/uL Est GFR (CKD-EPI)AfAm (60.0-200.0) Est GFR (CKD-EPI)NonAf (60.0-200.0) BUN/Creatinine Ratio (12.00-20.00) Ratio Glucose (70-110) mg/dL POC Glucose (mg/dL) 484 H 421 H 259 H (70-110) mg/dL Total Protein (6.2-8.2) g/dL Albumin (3.8-4.9) g/dL Albumin (PEP) (3.80-4.90) g/dL Yuhvn-0-Kubetcefh (0.10-0.40) g/dL Gamma Globulins (0.70-1.50) g/dL Free [place] LC, Quant (0.33-1.94) mg/dL 10/16/21 10/16/21 Range/Units 07:23 11:22 Plt Count (140-440) X 10*3/uL Plt Count Comment Lymphocytes # (0.90-5.00) X 10*3/uL Eosinophils # (0.04-0.35) X 10*3/uL Est GFR (CKD-EPI)AfAm (60.0-200.0) Est GFR (CKD-EPI)NonAf (60.0-200.0) BUN/Creatinine Ratio (12.00-20.00) Ratio Glucose (70-110) mg/dL POC Glucose (mg/dL) 203 H 285 H (70-110) mg/dL Total Protein (6.2-8.2) g/dL Albumin (3.8-4.9) g/dL Albumin (PEP) (3.80-4.90) g/dL Oyfuh-7-Fonchgtff (0.10-0.40) g/dL Gamma Globulins (0.70-1.50) g/dL Free [place] LC, Quant (0.33-1.94) mg/dL Microbiology - Last 24 Hours (Table) 10/12/21 11:20 Blood Culture - Preliminary Blood No Growth after 72 hours 10/12/21 11:40 Blood Culture - Preliminary Blood No Growth after 72 hours Assessment and Plan (1) COVID Current Visit: Yes Status: Acute Code(s): U07.1 - COVID-19 SNOMED Code(s): 796121566 (2) UTI (urinary tract infection) Current Visit: Yes Status: Acute Code(s): N39.0 - URINARY TRACT INFECTION, SITE NOT SPECIFIED SNOMED Code(s): 86814981 Plan: 1patient presented to hospital with hallucination and mental status changes in this patient also complaining of shortness of breath and a cough with evidence of right-sided infiltrate and a positive COVID test concerning for COVID- pneumonia in this patient symptom has been going on for the last 3 days within the 7 days window for remdesivir, the patient also have urinary symptoms and a positive UA and likely component of symptomatic urinary tract infection. 2patient to continue with remdesivir day # 4/5 and continue with Solu-Medrol hold and Lovenox zinc and ascorbic acid. 3patient with E. coli urinary tract infection, covered with a Rocephin
[2021-10-17] MEDS: PANTOPRAZOLE 40 MG TABLET PO SCH (08:08)
[2021-10-17] MEDS: ESCITALOPRAM 20 MG TAB PO SCH (08:08)
[2021-10-17] MEDS: INSULIN ASPART (NovoLOG) 100 UNIT/ML VIAL SQ SCH ×4 (08:08→21:11)
[2021-10-17] MEDS: ENOXAPARIN 40 MG/0.4 ML SYRINGE SQ SCH (08:08)
[2021-10-17] MEDS: amLODIPine 5 MG TAB PO SCH (08:09)
[2021-10-17] MEDS: ASCORBIC ACID 500 MG TAB PO SCH (08:09)
[2021-10-17] MEDS: QUEtiapine 25 MG TAB PO SCH ×2 (08:10→12:35)
[2021-10-17] MEDS: FUROSEMIDE 20 MG TAB PO SCH (08:10)
[2021-10-17] MEDS: FERROUS SULFATE 325 MG TAB PO SCH (08:10)
[2021-10-17] MEDS: lisinopriL 5 MG TAB PO SCH (08:10)
[2021-10-17] MEDS: ASPIRIN 81 MG PO SCH (08:10)
[2021-10-17] MEDS: ZINC SULFATE 220 MG CAP PO SCH (08:11)
[2021-10-17] MEDS: SODIUM CHLORIDE 5% OPHTH DROPS 15 ML BTL BOTH EYES SCH ×2 (08:12→21:11)
[2021-10-17] MEDS: levETIRAcetam 500 MG TAB PO SCH ×2 (08:17→21:11)
[2021-10-17] MEDS: ALBUTEROL HFA INHALER INHALATION SCH (08:41)
[2021-10-17 10:59] LABS: Glucose,Whole Blood 286 mg/dL (70-110)
[2021-10-17] MEDS: SODIUM CHLORIDE 0.9% 1,000 ML IV SCH (12:48)
[2021-10-17] MEDS: REMDESIVIR 100 MG in SODIUM CHLORIDE 0.9% 250 ML IVPB SCH (16:07)
[2021-10-17 16:38] LABS: Glucose,Whole Blood 259 mg/dL (70-110)
[2021-10-17] MEDS: lisinopriL 20 MG TAB PO SCH (17:26)
[2021-10-17 20:36] LABS: Glucose,Whole Blood 301 mg/dL (70-110)
[2021-10-17] MEDS: ATORVASTATIN 20 MG TAB PO SCH (21:11)
[2021-10-17] MEDS: INSULIN DETEMIR (LEVEMIR) 100 UNIT/ML SYR SQ SCH (21:11)
[2021-10-17] MEDS: QUEtiapine 100 MG TAB PO SCH (21:11)
[2021-10-18] MEDS: SODIUM CHLORIDE 0.9% 1,000 ML IV SCH (00:31)
[2021-10-18] MEDS: methylPREDNISolone SOD SUCCI 40 MG/ML 1 ML VIAL IV SCH ×2 (05:48→15:17)
[2021-10-18 07:34] LABS: Glucose,Whole Blood 166 mg/dL (70-110)
[2021-10-18] MEDS: ALBUTEROL HFA INHALER INHALATION SCH (09:19)
[2021-10-18] MEDS: ASPIRIN 81 MG PO SCH (09:58)
[2021-10-18] MEDS: FUROSEMIDE 20 MG TAB PO SCH (09:58)
[2021-10-18] MEDS: ESCITALOPRAM 20 MG TAB PO SCH (09:58)
[2021-10-18] MEDS: lisinopriL 20 MG TAB PO SCH (09:59)
[2021-10-18] MEDS: ASCORBIC ACID 500 MG TAB PO SCH (09:59)
[2021-10-18] MEDS: FERROUS SULFATE 325 MG TAB PO SCH (09:59)
[2021-10-18] MEDS: amLODIPine 5 MG TAB PO SCH (09:59)
[2021-10-18] MEDS: levETIRAcetam 500 MG TAB PO SCH (09:59)
[2021-10-18] MEDS: QUEtiapine 25 MG TAB PO SCH ×2 (09:59→12:31)
[2021-10-18] MEDS: PANTOPRAZOLE 40 MG TABLET PO SCH (09:59)
[2021-10-18] MEDS: ENOXAPARIN 40 MG/0.4 ML SYRINGE SQ SCH (09:59)
[2021-10-18] MEDS: ZINC SULFATE 220 MG CAP PO SCH (09:59)
[2021-10-18] MEDS: SODIUM CHLORIDE 5% OPHTH DROPS 15 ML BTL BOTH EYES SCH (10:00)
[2021-10-18] MEDS: INSULIN ASPART (NovoLOG) 100 UNIT/ML VIAL SQ SCH ×2 (10:00→12:32)
[2021-10-18 11:04] LABS: Glucose,Whole Blood 385 mg/dL (70-110)
--- NOTE | 2021-10-18 11:33 | P.PN ---
Subjective Progress Note Date: 10/17/21 Principal diagnosis: Covid 19 Pneumonia Patient is a 76-year old female with multiple comorbidities presented to hospital with increasing shortness of breath cough in this patient with a positive COVID test and evidence of pneumonia on the x-ray concerning for acute COVID-19 pneumonia. On today's evaluation that is 10/17/2021, The patient remains to be afebrile, the patient is breathing comfortably currently on a 2 L nasal cannula, the patient denies having any chest pain no worsening cough or sputum production abdominal pain and no diarrhea Objective - Vital Signs Vital signs: Vital Signs Temp 97.9 F 10/17/21 10:00 Pulse 63 10/17/21 10:00 Resp 20 10/17/21 10:00 BP 173/75 10/17/21 10:00 Pulse Ox 99 10/17/21 10:00 FiO2 Intake & Output 10/16/21 10/17/21 10/17/21 18:59 06:59 18:59 Weight 86.183 kg Other: Voiding Method External Catheter Toilet # Voids 2 1 1 # Bowel Movements 1 - Exam GENERAL DESCRIPTION: Elderly female lying in bed, no distress. No tachypnea or accessory muscle of respiration use. LUNGS: Unlabored breathing. Decrease intensity sounds HEART: S1, S2, regular rate and rhythm. No loud murmur ABDOMEN: Soft, no tenderness , guarding or rigidity, no organomegaly EXTREMITIES: No edema of feet. - Labs CBC & Chem 7: 10/15/21 07:46 10/15/21 07:46 Labs: Abnormal Lab Results - Last 24 Hours (Table) 10/15/21 10/16/21 10/16/21 Range/Units 07:46 16:22 20:43 POC Glucose (mg/dL) 257 H 328 H (70-110) mg/dL Hemoglobin A1c 9.3 H (0.0-6.0) % 10/17/21 10/17/21 Range/Units 06:54 10:56 POC Glucose (mg/dL) 168 H 286 H (70-110) mg/dL Hemoglobin A1c (0.0-6.0) % Microbiology - Last 24 Hours (Table) 10/12/21 11:20 Blood Culture - Preliminary Blood No Growth after 96 hours 10/12/21 11:40 Blood Culture - Preliminary Blood No Growth after 96 hours Assessment and Plan (1) COVID Current Visit: Yes Status: Acute Code(s): U07.1 - COVID-19 SNOMED Code(s): 146512279 (2) UTI (urinary tract infection) Current Visit: Yes Status: Acute Code(s): N39.0 - URINARY TRACT INFECTION, SITE NOT SPECIFIED SNOMED Code(s): 73184907 Plan: 1patient presented to hospital with hallucination and mental status changes in this patient also complaining of shortness of breath and a cough with evidence of right-sided infiltrate and a positive COVID test concerning for COVID- pneumonia in this patient symptom has been going on for the last 3 days within the 7 days window for remdesivir, the patient also have urinary symptoms and a positive UA and likely component of symptomatic urinary tract infection. 2The patient has shown clinical improvement and will continue with remdesivir day # 5 along with Solu-Medrol hold and Lovenox zinc and ascorbic acid. 3patient with E. coli urinary tract infection, covered with a Rocephin Time with Patient: Less than 30
[2021-10-18 11:40] LABS: INR 1.1 (<1.2); Partial Thromboplastin Time 22.4 sec (22.0-30.0); Prothrombin Time 11.6 sec (9.0-12.0)
[2021-10-18 11:44] LABS: ALT 15 U/L (4-34); AST 17 U/L (14-36); African American GFR (CKD) 55 (>60 ml/min/1.73 sqM); Albumin 3.5 g/dL (3.5-5.0); Albumin/Globulin Ratio 1.7; Alkaline Phosphatase 78 U/L (38-126); Anion Gap 12 mmol/L; Blood Urea Nitrogen 35 mg/dL (7-17); Calcium 8.6 mg/dL (8.4-10.2); Carbon Dioxide 29 mmol/L (22-30); Chloride 96 mmol/L (98-107); Globulin 2.1 g/dL; Glucose 390 mg/dL (74-99); Magnesium 1.8 mg/dL (1.6-2.3); Non-African American GFR(CKD) 47 (>60 ml/min/1.73 sqM); Potassium 4.3 mmol/L (3.5-5.1); Sodium 137 mmol/L (137-145); Total Bilirubin 0.4 mg/dL (0.2-1.3); Total Protein 5.6 g/dL (6.3-8.2)
[2021-10-18 12:28] LABS: Basophils % (A) 0 %; Eosinophils % (A) 0 %; HCT 46.1 % (34.0-46.0); HGB 14.5 gm/dL (11.4-16.0); Hypochromasia Slight; Lymphocytes # (A) 0.5 k/uL (1.0-4.8); Lymphocytes % (A) 7 %; MCH 28.7 pg (25.0-35.0); MCHC 31.4 g/dL (31.0-37.0); MCV 91.2 fL (80.0-100.0); Mean Platelet Volume 7.7; Monocytes # (A) 0.3 k/uL (0-1.0); Monocytes % (A) 5 %; Neutrophils # (A) 6.1 k/uL (1.3-7.7); Neutrophils % (A) 88 %; RBC 5.06 m/uL (3.80-5.40); RDW 13.5 % (11.5-15.5); WBC 6.9 k/uL (3.8-10.6)
[2021-10-18 12:34] LABS: Platelet Count 229 k/uL (150-450)
--- NOTE | 2021-10-18 13:01 | PN ---
PROGRESS NOTE A 76-year-old white female with COVID-19, day 4/5 remdesivir with setting up home oxygen for she will go home tomorrow. PHYSICAL EXAMINATION: VITAL SIGNS: She is on 3 L oxygen, temp 97.9, blood pressure 120s over 60s, respiratory rate 18-20, pulse 60. CARDIOVASCULAR: S1, S2. LUNGS: Clear. GI: Soft. HEMATOLOGY: Negative Homans. PSYCH: Fair mood and affect. Finished day 5 remdesivir and she can go home on oxygen tomorrow. Continue with steroids. Antibiotics were given for UTI, which is improved. Switch to oral antibiotics on discharge. Blood pressure is under better control. Advance her diet. PROGNOSIS: Extremely guarded. She will go home tomorrow on oral medications. Prognosis guarded. MMODL / IJN: [id number] /
[2021-10-18 14:31] VITALS: BP 139/70; PULSE 61; RESP 13; TEMP 97.6
--- NOTE | 2021-10-18 15:50 | P.PN ---
Subjective Progress Note Date: 10/18/21 Principal diagnosis: Covid 19 Pneumonia Patient is a 76-year old female with multiple comorbidities presented to hospital with increasing shortness of breath cough in this patient with a positive COVID test and evidence of pneumonia on the x-ray concerning for acute COVID-19 pneumonia. On today's evaluation that is 10/18/2021, The patient denies any fever or any chills, the patient is breathing comfortably currently on a 2 L nasal cannula, the patient denies chest pain, cough is decreased intensity mostly dry in nature no nausea no vomiting no abdominal pain and no diarrhea Objective - Vital Signs Vital signs: Vital Signs Temp 97.8 F 10/18/21 09:35 Pulse 60 10/18/21 09:35 Resp 16 10/18/21 09:35 BP 189/72 10/18/21 09:35 Pulse Ox 97 10/18/21 09:35 FiO2 Intake & Output 10/17/21 10/18/21 10/18/21 18:59 06:59 18:59 Other: Voiding Method Toilet # Voids 2 4 # Bowel Movements 1 - Exam GENERAL DESCRIPTION: Elderly female lying in bed, no distress. No tachypnea or accessory muscle of respiration use. LUNGS: Unlabored breathing. Decrease intensity sounds HEART: S1, S2, regular rate and rhythm. No loud murmur ABDOMEN: Soft, no tenderness , guarding or rigidity, no organomegaly EXTREMITIES: No edema of feet. - Labs CBC & Chem 7: 10/18/21 11:14 10/18/21 11:14 Labs: Abnormal Lab Results - Last 24 Hours (Table) 10/17/21 10/17/21 10/18/21 Range/Units 16:36 20:34 07:32 POC Glucose (mg/dL) 259 H 301 H 166 H (70-110) mg/dL 10/18/21 Range/Units 11:03 POC Glucose (mg/dL) 385 H (70-110) mg/dL Microbiology - Last 24 Hours (Table) 10/12/21 11:20 Blood Culture - Preliminary Blood No Growth after 120 hours 10/12/21 11:40 Blood Culture - Preliminary Blood No Growth after 120 hours Assessment and Plan (1) COVID Current Visit: Yes Status: Acute Code(s): U07.1 - COVID-19 SNOMED Code(s): 279258151 (2) UTI (urinary tract infection) Current Visit: Yes Status: Acute Code(s): N39.0 - URINARY TRACT INFECTION, SITE NOT SPECIFIED SNOMED Code(s): 42090123 Plan: 1patient presented to hospital with hallucination and mental status changes in this patient also complaining of shortness of breath and a cough with evidence of right-sided infiltrate and a positive COVID test concerning for COVID- pneumonia in this patient symptom has been going on for the last 3 days within the 7 days window for remdesivir, the patient also have urinary symptoms and a positive UA and likely component of symptomatic urinary tract infection. 2The patient has shown clinical improvement and patient has completed a 5 day course of remdesivir currently being treated Solu-Medrol hold and Lovenox zinc and ascorbic acid., We'll try to wean her off oxygen 3patient with E. coli urinary tract infection, covered with a Rocephin which can be discontinued on discharge Time with Patient: Less than 30
== END 2021-10-18 16:14 | disposition home health service (06) | DRG 177 ==
LOC: EC 09:53 → 4SSUR 12:21
PROVIDERS: ADMIT Family Medicine; ATTEND Family Medicine
PROC: XW033E5 Introduction of Remdesivir Anti-infective into Peripheral Vein, Percutaneous Approach, New Technology Group 5 (ICD-10-PCS; principal; 2021-10-13)
DX: U07.1 COVID-19 (principal); A41.51 Sepsis due to Escherichia coli [E. coli]; G93.41 Metabolic encephalopathy; I50.33 Acute on chronic diastolic (congestive) heart failure; J12.82 Pneumonia due to coronavirus disease 2019; J69.0 Pneumonitis due to inhalation of food and vomit; I13.0 Hypertensive heart and chronic kidney disease with heart failure and stage 1 through stage 4 chronic kidney disease, or unspecified chronic kidney disease; N39.0 Urinary tract infection, site not specified; J44.0 Chronic obstructive pulmonary disease with (acute) lower respiratory infection; J98.11 Atelectasis; N18.30 Chronic kidney disease, stage 3 unspecified; I48.0 Paroxysmal atrial fibrillation; I49.5 Sick sinus syndrome; G40.909 Epilepsy, unspecified, not intractable, without status epilepticus; D69.6 Thrombocytopenia, unspecified; D72.819 Decreased white blood cell count, unspecified; E78.5 Hyperlipidemia, unspecified; E86.0 Dehydration; H54.62 Unqualified visual loss, left eye, normal vision right eye; I25.10 Atherosclerotic heart disease of native coronary artery without angina pectoris; J45.909 Unspecified asthma, uncomplicated; M19.90 Unspecified osteoarthritis, unspecified site; F32.A Depression, unspecified; E11.42 Type 2 diabetes mellitus with diabetic polyneuropathy; F41.9 Anxiety disorder, unspecified; K29.70 Gastritis, unspecified, without bleeding; E11.22 Type 2 diabetes mellitus with diabetic chronic kidney disease; I08.3 Combined rheumatic disorders of mitral, aortic and tricuspid valves; Z79.4 Long term (current) use of insulin; Z79.899 Other long term (current) drug therapy; Z95.5 Presence of coronary angioplasty implant and graft; Z95.0 Presence of cardiac pacemaker; Z90.49 Acquired absence of other specified parts of digestive tract; Z88.2 Allergy status to sulfonamides; Z88.1 Allergy status to other antibiotic agents; Z91.040 Latex allergy status; Z79.82 Long term (current) use of aspirin; Z87.440 Personal history of urinary (tract) infections; Z85.828 Personal history of other malignant neoplasm of skin; Z82.49 Family history of ischemic heart disease and other diseases of the circulatory system; Z82.5 Family history of asthma and other chronic lower respiratory diseases; Z80.8 Family history of malignant neoplasm of other organs or systems; Z85.42 Personal history of malignant neoplasm of other parts of uterus; Z86.14 Personal history of Methicillin resistant Staphylococcus aureus infection; Z86.73 Personal history of transient ischemic attack (TIA), and cerebral infarction without residual deficits; Z87.11 Personal history of peptic ulcer disease; Z90.710 Acquired absence of both cervix and uterus; Z87.19 Personal history of other diseases of the digestive system; Z87.81 Personal history of (healed) traumatic fracture; Z98.41 Cataract extraction status, right eye
CPT/HCPCS: 36415; 71046; 80053; 81001; 82607; 82728; 82746; 82784; 82803; 83036; 83540; 83550; 83615; 83735; 83880; 83883; 83921; 84145; 84165; 84425; 84443; 84484; 85025; 85045; 85379; 85610; 85652; 85730; 86038; 86140; 86334; 86431; 87040; 87077; 87086; 87186; 87502; 87635; 93005; 93306; 94760; 96361; 96365; 96375; 99285

== ENCOUNTER 2021-11-29 17:18 | Observation (INO) | payer MEDICARE ==
--- NOTE | 2021-11-29 18:09 | ED ---
General Adult HPI - General Chief complaint: Headache Stated complaint: headache, racing heart Time Seen by Provider: 11/29/21 17:50 Source: patient Mode of arrival: ambulatory - History of Present Illness Initial comments: Dictation was produced using [employer] dictation software. please excuse any grammatical, word or spelling errors. Chief Complaint: 76-year-old female presents emergency department for concerns of headache, hypoxia and tachycardia History of Present Illness: 76-year-old female she has multiple comorbidities. Patient has history of A. fib, coronary artery disease, diabetes, heart failure. Patient wears home O2 only at night. She had physical therapy today and during the time that physical therapy she had hypoxia of 86% and a headache. EMS was called and patient was brought to the emergency department. Patient since being in the emergency department denies any symptoms. She denies any headache or shortness of breath or cough. The ROS documented in this emergency department record has been reviewed and confirmed by me. Those systems with pertinent positive or negative responses have been documented in the HPI. All other systems are other negative and/or noncontributory. PHYSICAL EXAM: General Impression: Alert and oriented x3, not in acute distress HEENT: Normocephalic atraumatic, extra-ocular movements intact, pupils equal and reactive to light bilaterally, mucous membranes moist. Cardiovascular: Heart regular rate and rhythm Chest: Able to complete full sentences, no retractions, no tachypnea Abdomen: abdomen soft, non-tender, non-distended, no organomegaly Musculoskeletal: Pulses present and equal in all extremities, no peripheral edema Motor: no focal deficits noted Neurological: CN II-XII grossly intact, no focal motor or sensory deficits noted Skin: Intact with no visualized rashes Psych: Normal affect and mood ED course: 76-year-old female presents to the emergency department with post-physical therapy headache, hypoxia shortness of breath. Signs upon arrival shows 86% on room air, worse vital signs within acceptable limits. Patient reevaluated at 7:30 PM and is in stable medical condition. Laboratory evaluation obtained. CBC is negative. Cardiac panel is negative. Metabolic panel shows acute kidney injury. 2.2 BUN 37. Patient has a lactic acidosis 3.2. Abdominal labs negative. Urinalysis positive for urinary tract infection. Patient given ceftriaxone. Troponin 0.050 likely secondary to acute kidney injury. Patient denied any chest pain. She reports no symptoms at the bedside and she is well-appearing with normal EKG. Patient of antibiotics. Admitted to Dr. Zamarripa. EKG interpretation: Ventricular rate 61, atrial paced rhythm, DC interval 317, Jose Luis 6, QTC 452. No DC prolongation, no QTC prolongation, no ST or T-wave changes noted. EKG compared to 10/12/2021 showing no changes. Overall, this EKG is unremarkable - Related Data Home Medications Medication Instructions Recorded Confirmed Ferrous Sulfate [Iron (65 MG 325 mg PO DAILY 03/27/18 10/12/21 Elemental)] levETIRAcetam [Keppra] 500 mg PO BID 07/21/18 10/12/21 Nystatin 100,000 Unit/gm Powd 1 applic TOPICAL BID PRN 09/16/19 10/12/21 [Mycostatin Powder] Escitalopram Oxalate [Lexapro] 20 mg PO DAILY 12/19/19 10/12/21 Pantoprazole [Protonix] 40 mg PO DAILY 12/19/19 10/12/21 QUEtiapine [SEROquel] 25 mg PO BID@0900,1200 09/17/20 10/12/21 Albuterol Sulfate [Ventolin HFA] 2 puff INHALATION RT-DAILY 10/12/21 10/12/21 Aspirin EC [Ecotrin Low Dose] 81 mg PO DAILY 10/12/21 10/12/21 Atorvastatin [Lipitor] 20 mg PO HS 10/12/21 10/12/21 Calcium Citrate/Vitamin D3 1 tab PO DAILY 10/12/21 10/12/21 [Citracal + D Maximum Caplet] Cholecalciferol [Vitamin D3 (25 25 mcg PO DAILY 10/12/21 10/12/21 Mcg = 1000 Iu)] Ibuprofen [Motrin Ib] 400 mg PO HS 10/12/21 10/12/21 Insulin Glargine/Lixisenatide 30 units SQ HS 10/12/21 10/12/21 [Soliqua 100 Unit-33 Mcg/ml Pen] Ipratropium-Albuterol Nebulize 3 ml INHALATION RT-QID PRN 10/12/21 10/12/21 [Duoneb 0.5 mg-3 mg/3 ml Soln] Prednisolone Acetate/Pf 1 drop RIGHT EYE SUFRSA 10/12/21 10/12/21 [Prednisolone Acet 1% Eye Drop] Sodium Chloride 5% Ophth Soln 1 drop BOTH EYES BID 10/12/21 10/12/21 [Amanda 128] Previous Rx's Medication Instructions Recorded QUEtiapine [SEROquel] 100 mg PO HS 30 Days #30 tab 04/13/19 amLODIPine [Norvasc] 5 mg PO DAILY 90 Days #90 tab 12/22/19 Furosemide [Lasix] 20 mg PO DAILY 90 Days #90 tab 10/18/21 lisinopriL [Zestril] 20 mg PO DAILY 90 Days #90 tab 10/18/21 Allergies Allergy/AdvReac Type Severity Reaction Status Date / Time Latex, Natural Rubber Allergy Itching Verified 11/29/21 17:52 sulfamethoxazole Allergy Rash/Hives Verified 11/29/21 17:52 [From Bactrim] trimethoprim [From Bactrim] Allergy Rash/Hives Verified 11/29/21 17:52 Review of Systems ROS Statement: Those systems with pertinent positive or pertinent negative responses have been documented in the HPI. ROS Other: All systems not noted in ROS Statement are negative. Past Medical History Past Medical History: Atrial Fibrillation, Asthma, Coronary Artery Disease (CAD), Cancer, Heart Failure, CVA/TIA, Diabetes Mellitus, Eye Disorder, Hypertension, Osteoarthritis (OA), Renal Disease, Seizure Disorder Additional Past Medical History / Comment(s): Brain mass/fall with intracranial bleed/hematome-surgery at [facility], seizure after brain surgery, paroxysmal Afib, IDDM type II, neuropathy bilateral feet, orthostatic hypotension, SSS with pacemaker, L1 compression fx, CKD stage III, blind in L eye, UTIs, lower GI bleed, gastritis, gastric erosion, CDiff colitis, skin cancer with removals, past L arm fracture, past R arm fracture x2. History of Any Multi-Drug Resistant Organisms: None Reported, MRSA Date of last positivie culture/infection: 01/26/19 MDRO Source:: URINE Past Surgical History: Cholecystectomy, Heart Catheterization, Heart Catheterization With Stent, Hysterectomy, Pacemaker Additional Past Surgical History / Comment(s): Evacuation of intracranial hematoma and ressection of hemorrhagic mass, pacemaker 2016, PCI with stent 06/06/18, EGD/colonoscopy, R eye corneal implant/cataract removal, EGD 06/2018, colonoscopy, skin cancer removal. Past Anesthesia/Blood Transfusion Reactions: No Reported Reaction Additional Past Anesthesia/Blood Transfusion Reaction / Comment(s): . Date of Last Stent Placement:: 06/06/18 Type of Cardiac Device: Permanent Pacemaker Device Placement Date:: 04/2016 Past Psychological History: Anxiety, Depression Smoking Status: Never smoker Past Alcohol Use History: None Reported Past Drug Use History: None Reported - Past Family History Mother Family Medical History: Cancer, COPD, Hypertension Additional Family Medical History / Comment(s): Mother had bone cancer. Father Family Medical History: Cancer, Hypertension Additional Family Medical History / Comment(s): Father had skin cancer. Course Vital Signs 11/29/21 17:48 Temperature 97.8 F Pulse Rate 62 Respiratory 18 Rate Blood Pressure 103/59 O2 Sat by Pulse 86 L Oximetry Medical Decision Making - Lab Data Result diagrams: 11/29/21 18:46 11/29/21 18:46 Lab Results 11/29/21 11/29/21 11/29/21 Range/Units 18:46 18:46 18:46 WBC 11.7 H (3.8-10.6) k/uL RBC 5.07 (3.80-5.40) m/uL Hgb 14.4 (11.4-16.0) gm/dL Hct 45.5 (34.0-46.0) % MCV 89.7 (80.0-100.0) fL MCH 28.3 (25.0-35.0) pg MCHC 31.6 (31.0-37.0) g/dL RDW 14.4 (11.5-15.5) % Plt Count 184 (150-450) k/uL MPV 8.3 Neutrophils % 75 % Lymphocytes % 15 % Monocytes % 6 % Eosinophils % 2 % Basophils % 1 % Neutrophils # 8.8 H (1.3-7.7) k/uL Lymphocytes # 1.8 (1.0-4.8) k/uL Monocytes # 0.7 (0-1.0) k/uL Eosinophils # 0.2 (0-0.7) k/uL Basophils # 0.1 (0-0.2) k/uL PT 10.2 (9.0-12.0) sec INR 0.9 (<1.2) APTT 23.8 (22.0-30.0) sec VBG pH (7.31-7.41) VBG pCO2 (37-51) mmHg VBG HCO3 (24-28) mmol/L Sodium (137-145) mmol/L Potassium (3.5-5.1) mmol/L Chloride (98-107) mmol/L Carbon Dioxide (22-30) mmol/L Anion Gap mmol/L BUN (7-17) mg/dL Creatinine (0.52-1.04) mg/dL Est GFR (CKD-EPI)AfAm (>60 ml/min/1.73 sqM) Est GFR (CKD-EPI)NonAf (>60 ml/min/1.73 sqM) Glucose (74-99) mg/dL Plasma Lactic Acid Hema (0.7-2.0) mmol/L Calcium (8.4-10.2) mg/dL Magnesium (1.6-2.3) mg/dL Total Bilirubin (0.2-1.3) mg/dL AST (14-36) U/L ALT (4-34) U/L Alkaline Phosphatase (38-126) U/L Troponin I (0.000-0.034) ng/mL NT-Pro-B Natriuret Pep pg/mL Total Protein (6.3-8.2) g/dL Albumin (3.5-5.0) g/dL Urine Color Yellow Urine Appearance Cloudy H (Clear) Urine pH 5.0 (5.0-8.0) Ur Specific [place] 1.018 (1.001-1.035) Urine Protein Trace H (Negative) Urine Glucose (UA) 1+ H (Negative) Urine Ketones Negative (Negative) Urine Blood Negative (Negative) Urine Nitrite Negative (Negative) Urine Bilirubin Negative (Negative) Urine Urobilinogen <2.0 (<2.0) mg/dL Ur Leukocyte Esterase Moderate H (Negative) Urine RBC 1 (0-5) /hpf Urine WBC 21 H (0-5) /hpf Ur Squamous Epith Cells 4 (0-4) /hpf Hyaline Casts 29 H (0-2) /lpf Urine Mucus Rare H (None) /hpf 11/29/21 11/29/21 11/29/21 Range/Units 18:46 18:46 18:46 WBC (3.8-10.6) k/uL RBC (3.80-5.40) m/uL Hgb (11.4-16.0) gm/dL Hct (34.0-46.0) % MCV (80.0-100.0) fL MCH (25.0-35.0) pg MCHC (31.0-37.0) g/dL RDW (11.5-15.5) % Plt Count (150-450) k/uL MPV Neutrophils % % Lymphocytes % % Monocytes % % Eosinophils % % Basophils % % Neutrophils # (1.3-7.7) k/uL Lymphocytes # (1.0-4.8) k/uL Monocytes # (0-1.0) k/uL Eosinophils # (0-0.7) k/uL Basophils # (0-0.2) k/uL PT (9.0-12.0) sec INR (<1.2) APTT (22.0-30.0) sec VBG pH (7.31-7.41) VBG pCO2 (37-51) mmHg VBG HCO3 (24-28) mmol/L Sodium 138 (137-145) mmol/L Potassium 4.2 (3.5-5.1) mmol/L Chloride 95 L (98-107) mmol/L Carbon Dioxide 30 (22-30) mmol/L Anion Gap 13 mmol/L BUN 37 H (7-17) mg/dL Creatinine 2.22 H (0.52-1.04) mg/dL Est GFR (CKD-EPI)AfAm 24 (>60 ml/min/1.73 sqM) Est GFR (CKD-EPI)NonAf 21 (>60 ml/min/1.73 sqM) Glucose 208 H (74-99) mg/dL Plasma Lactic Acid Hema 3.2 H* (0.7-2.0) mmol/L Calcium 10.0 (8.4-10.2) mg/dL Magnesium 2.0 (1.6-2.3) mg/dL Total Bilirubin 0.6 (0.2-1.3) mg/dL AST 22 (14-36) U/L ALT 15 (4-34) U/L Alkaline Phosphatase 118 (38-126) U/L Troponin I 0.050 H* (0.000-0.034) ng/mL NT-Pro-B Natriuret Pep pg/mL Total Protein 6.2 L (6.3-8.2) g/dL Albumin 4.2 (3.5-5.0) g/dL Urine Color Urine Appearance (Clear) Urine pH (5.0-8.0) Ur Specific [place] (1.001-1.035) Urine Protein (Negative) Urine Glucose (UA) (Negative) Urine Ketones (Negative) Urine Blood (Negative) Urine Nitrite (Negative) Urine Bilirubin (Negative) Urine Urobilinogen (<2.0) mg/dL Ur Leukocyte Esterase (Negative) Urine RBC (0-5) /hpf Urine WBC (0-5) /hpf Ur Squamous Epith Cells (0-4) /hpf Hyaline Casts (0-2) /lpf Urine Mucus (None) /hpf 11/29/21 11/29/21 Range/Units 18:46 18:46 WBC (3.8-10.6) k/uL RBC (3.80-5.40) m/uL Hgb (11.4-16.0) gm/dL Hct (34.0-46.0) % MCV (80.0-100.0) fL MCH (25.0-35.0) pg MCHC (31.0-37.0) g/dL RDW (11.5-15.5) % Plt Count (150-450) k/uL MPV Neutrophils % % Lymphocytes % % Monocytes % % Eosinophils % % Basophils % % Neutrophils # (1.3-7.7) k/uL Lymphocytes # (1.0-4.8) k/uL Monocytes # (0-1.0) k/uL Eosinophils # (0-0.7) k/uL Basophils # (0-0.2) k/uL PT (9.0-12.0) sec INR (<1.2) APTT (22.0-30.0) sec VBG pH 7.37 (7.31-7.41) VBG pCO2 54 H (37-51) mmHg VBG HCO3 30 H (24-28) mmol/L Sodium (137-145) mmol/L Potassium (3.5-5.1) mmol/L Chloride (98-107) mmol/L Carbon Dioxide (22-30) mmol/L Anion Gap mmol/L BUN (7-17) mg/dL Creatinine (0.52-1.04) mg/dL Est GFR (CKD-EPI)AfAm (>60 ml/min/1.73 sqM) Est GFR (CKD-EPI)NonAf (>60 ml/min/1.73 sqM) Glucose (74-99) mg/dL Plasma Lactic Acid Hema (0.7-2.0) mmol/L Calcium (8.4-10.2) mg/dL Magnesium (1.6-2.3) mg/dL Total Bilirubin (0.2-1.3) mg/dL AST (14-36) U/L ALT (4-34) U/L Alkaline Phosphatase (38-126) U/L Troponin I (0.000-0.034) ng/mL NT-Pro-B Natriuret Pep 2880 pg/mL Total Protein (6.3-8.2) g/dL Albumin (3.5-5.0) g/dL Urine Color Urine Appearance (Clear) Urine pH (5.0-8.0) Ur Specific [place] (1.001-1.035) Urine Protein (Negative) Urine Glucose (UA) (Negative) Urine Ketones (Negative) Urine Blood (Negative) Urine Nitrite (Negative) Urine Bilirubin (Negative) Urine Urobilinogen (<2.0) mg/dL Ur Leukocyte Esterase (Negative) Urine RBC (0-5) /hpf Urine WBC (0-5) /hpf Ur Squamous Epith Cells (0-4) /hpf Hyaline Casts (0-2) /lpf Urine Mucus (None) /hpf Disposition Clinical Impression: Acute kidney injury Disposition: ADMITTED IP TO THIS [facility] Condition: Fair Referrals: Vikram Zamarripa MD [Primary Care Provider] - 1-2 days Decision Time: 19:59
--- NOTE | 2021-11-29 18:48 | XR ---
EXAMINATION TYPE: XR chest 1V portable DATE OF EXAM: 11/29/2021 COMPARISON: 10/12/2021 HISTORY: Hypoxemia TECHNIQUE: FINDINGS: There is no heart failure nor confluent pneumonic infiltrate. Costophrenic angles are clear . There is left axillary pacemaker. There is significant arthritic change in the shoulder joints. IMPRESSION: No active cardiopulmonary disease. No change.
[2021-11-29 19:05] LABS: Basophils # (A) 0.1 k/uL (0-0.2); Basophils % (A) 1 %; Eosinophils # (A) 0.2 k/uL (0-0.7); Eosinophils % (A) 2 %; HCT 45.5 % (34.0-46.0); HGB 14.4 gm/dL (11.4-16.0); Lymphocytes # (A) 1.8 k/uL (1.0-4.8); Lymphocytes % (A) 15 %; MCH 28.3 pg (25.0-35.0); MCHC 31.6 g/dL (31.0-37.0); MCV 89.7 fL (80.0-100.0); Mean Platelet Volume 8.3; Monocytes # (A) 0.7 k/uL (0-1.0); Monocytes % (A) 6 %; Neutrophils # (A) 8.8 k/uL (1.3-7.7); Neutrophils % (A) 75 %; Platelet Count 184 k/uL (150-450); RBC 5.07 m/uL (3.80-5.40); RDW 14.4 % (11.5-15.5); WBC 11.7 k/uL (3.8-10.6)
[2021-11-29 19:17] LABS: VBG PH 7.37 (7.31-7.41)
[2021-11-29 19:18] LABS: Albumin 4.2 g/dL (3.5-5.0); INR 0.9 (<1.2); Partial Thromboplastin Time 23.8 sec (22.0-30.0); Potassium 4.2 mmol/L (3.5-5.1); Prothrombin Time 10.2 sec (9.0-12.0); Total Bilirubin 0.6 mg/dL (0.2-1.3); Total Protein 6.2 g/dL (6.3-8.2)
[2021-11-29 19:28] LABS: Appearance,Urine Cloudy (Clear); Bilirubin,Urine Negative (Negative); Blood,Urine Negative (Negative); Color,Urine Yellow; Glucose,Urine (UA) 1+ (Negative); Hyaline Casts,Urine 29 /lpf (0-2); Ketones,Urine Negative (Negative); Leukocyte Esterase,Urine Moderate (Negative); Mucus,Urine Rare /hpf; Nitrite,Urine Negative (Negative); Protein,Urine Trace (Negative); RBC,Urine 1 /hpf (0-5); Specific Gravity,Urine 1.018 (1.001-1.035); Squamous Epithelial Cell,Urine 4 /hpf (0-4); Urobilinogen,Urine <2.0 mg/dL (<2.0); WBC,Urine 21 /hpf (0-5)
[2021-11-29] MEDS ORDERED: SODIUM CHLORIDE 0.9% 1,000 ML IV STA (19:29)
[2021-11-29] MEDS ORDERED: NALOXONE 0.4 MG/ML 1 ML VIAL IV PRN (19:34)
[2021-11-29] MEDS ORDERED: ONDANSETRON 4 MG/2 ML VIAL IVP PRN (19:34)
[2021-11-29] MEDS ORDERED: cefTRIAXone IN SWFI 1,000 MG/10 ML SYRINGE IVP STA (19:45)
[2021-11-29] MEDS ORDERED: LOPERAMIDE 2 MG CAP PO PRN (23:04)
[2021-11-29] MEDS: SODIUM CHLORIDE 0.9% 1,000 ML IV SCH (23:22)
[2021-11-29] MEDS: NON FORMULARY DRUG (Insulin Glargine/Lixisenatide [Soliqua 100 Unit-33 Mcg/Ml Pen] 3 ML In SQ SCH (23:55)
[2021-11-29] MEDS: SODIUM CHLORIDE 5% OPHTH DROPS 15 ML BTL BOTH EYES SCH (23:56)
[2021-11-29 23:58] LABS: Glucose,Whole Blood 222 mg/dL (70-110)
[2021-11-30] MEDS: SODIUM CHLORIDE 0.9% 1,000 ML IV SCH ×3 (00:08→19:49)
[2021-11-30 06:20] LABS: Glucose,Whole Blood 256 mg/dL (70-110)
[2021-11-30] MEDS: CALCIUM CARB-VIT D 500 MG-5 MCG TAB PO SCH (08:08)
[2021-11-30] MEDS: CHOLECALCIFEROL 25 MCG (1000 IU) TABLET PO SCH (08:08)
[2021-11-30] MEDS: PANTOPRAZOLE 40 MG TABLET PO SCH (08:08)
[2021-11-30] MEDS: levETIRAcetam 500 MG TAB PO SCH ×3 (08:08→19:54)
[2021-11-30] MEDS: amLODIPine 5 MG TAB PO SCH (08:08)
[2021-11-30] MEDS: ASPIRIN 81 MG PO SCH (08:08)
[2021-11-30] MEDS: FERROUS SULFATE 325 MG TAB PO SCH (08:08)
[2021-11-30] MEDS: lisinopriL 20 MG TAB PO SCH (08:08)
[2021-11-30] MEDS ORDERED: FUROSEMIDE 20 MG TAB PO SCH (09:00)
[2021-11-30] MEDS: SODIUM CHLORIDE 5% OPHTH DROPS 15 ML BTL BOTH EYES SCH ×2 (09:48→21:12)
--- NOTE | 2021-11-30 10:15 | P.CRDCN ---
History of Present Illness History of present illness: HISTORY OF PRESENTING ILLNESS This is a pleasant 76-year-old female past medical history significant for Recent admission 10/2021 with COVID-19 pneumonia and heart failure, paroxysmal atrial fibrillation not on long-term anticoagulation secondary to brain hemorrhage, coronary artery disease s/p prior PCI LAD 2018, sick sinus syndrome status post pacemaker 2017 ([employer]), congestive heart failure with preserved EF, hypertension with orthostatic hypotension, hyperlipidemia, chronic kidney disease stage III, CVA, type 2 diabetes, seizures, brain mass/fall with intracranial bleeding. Patient follows with Dr. Hawk in the office.. She follows in the office with Dr. Hawk. We have been asked to see in consultation for elevated troponin. Patient presents to the ER with complaints of palpitations and a headache. She states she has been having decreased appetite, not eating or drinking well. Yesterday she had a headache and felt her heart racing, after she did exercises with physical therapy at home. She states by the time she presented to the ER her symptoms resolved. She denied any chest pain, shortness of breath, syncope or near syncope, lightheadedness, dizziness. She denies any symptoms of orthopnea or PND. DIAGNOSTICS * EKG reveals atrial paced rhythm, heart rate 61, STT wave abnormalities anterior and inferior leads that are unchanged and similar on prior EKG. * Echocardiogram 10/13/2021 revealed an EF of 5055 %, apical septum hypokinesis * Telemetry tracings indicate atrial paced rhythm, no arrhythmia noted. * Chest xray no acute cardio pulmonary process. * Laboratory reviewed, WBC 1.7, hemoglobin 14.4, sodium 138, potassium 4.2, BUN 37, serum creatinine 2.2, lactate 3.2, magnesium 2.0, troponin 0.05, proBNP 2880 * Current home cardiac medications include lisinopril 20 mg daily, atorvastatin 20 mg nightly, amlodipine 5 mg daily, aspirin 81mg daily * Cardiac catheterization 04/2019 revealed patent stent in the proximal LAD REVIEW OF SYSTEMS At the time of my exam: CONSTITUTIONAL: Denies fever or chills. CARDIOVASCULAR: Denies chest pain, shortness of breath, orthopnea, PND or palpitations. RESPIRATORY: Denies cough. GASTROINTESTINAL: Denies abdominal pain, diarrhea, constipation, nausea or vomiting. MUSCULOSKELETAL: Denies myalgias. NEUROLOGIC: Denies numbness, tingling, headacbe or weakness. ENDOCRINE: Denies fatigue, weight change, polydipsia or polyurina. GENITOURINARY: Denies burning, hematuria or urgency with micturation. HEMATOLOGIC: Denies history of anemia or bleeding. PHYSICAL EXAMINATION Blood pressure 125/58, heart rate 60, afebrile, saturation 100% on 2 L nasal cannula CONSTITUTIONAL: No apparent distress. HEENT: Head is normocephalic. Pupils are equal, round. Sclerae anicteric. Mucous membranes of the mouth are moist. No JVD. CHEST EXAMINATION: Lungs are clear to auscultation. No chest wall tenderness is noted on palpation or with deep breathing. HEART EXAMINATION: Regular rate and rhythm. S1, S2 heard. No murmurs, gallops or rub. ABDOMEN: Soft, nontender. Positive bowel sounds. EXTREMITIES: 2+ peripheral pulses, 1+ bilateral lower extremity edema and no calf tenderness. NEUROLOGIC EXAMINATION: Patient is awake, alert and oriented x3. ASSESSMENT Elevated troponin, likely secondary to acute kidney injury and hypoxia, no evidence of ischemia by EKG or exam Headache, resolved Palpitations, resolved, patient states this was after exercises at home Acute kidney injury Dehydration Lactic Acidosis Hypoxia Chronic heart failure with preserved ejection fraction Recent admission 10/2021 with COVID-19 pneumonia and heart failure Paroxysmal atrial fibrillation not on long-term anticoagulation secondary to b rain hemorrhage requiring rare neurectomy and drainage in 2018 Coronary artery disease s/p prior PCI LAD 2019 Sick sinus syndrome status post pacemaker 2017 Hypertension with orthostatic hypotension Hyperlipidemia Chronic kidney disease stage III History of CVA Type 2 diabetes History of seizures PLAN From a cardiology perspective, patient with elevated troponin likely secondary to acute kidney injury and hypoxia, no evidence of ischemia by EKG or exam. Patient's symptoms have resolved. Echocardiogram 10/13/2021 revealed an EF of 5055 %. Patient with reports of palpitations, will check device interrogation Further recommendations based on clinical course Nurse practitioner note has been reviewed by physician. Signing provider agrees with the documented findings, assessment, and plan of care. Past Medical History Past Medical History: Atrial Fibrillation, Asthma, Coronary Artery Disease (CAD), Cancer, Heart Failure, CVA/TIA, Diabetes Mellitus, Eye Disorder, Hypertension, Osteoarthritis (OA), Renal Disease, Seizure Disorder Additional Past Medical History / Comment(s): Brain mass/fall with intracranial bleed/hematome-surgery at [facility], seizure after brain surgery, paroxysmal Afib, DM type II, neuropathy bilateral feet, orthostatic hypotension, SSS with pacemaker, L1 compression fx, CKD stage III, blind in L eye, UTIs, lower GI bleed, gastritis, gastric erosion, CDiff colitis, skin cancer with removals, past L arm fracture, past R arm fracture x2. History of Any Multi-Drug Resistant Organisms: None Reported, MRSA Date of last positivie culture/infection: 01/26/19 MDRO Source:: URINE Past Surgical History: Cholecystectomy, Heart Catheterization, Heart Catheterization With Stent, Hysterectomy, Pacemaker Additional Past Surgical History / Comment(s): Evacuation of intracranial hematoma and ressection of hemorrhagic mass, pacemaker 2016, PCI with stent 06/06/18, EGD/colonoscopy, R eye corneal implant/cataract removal, EGD 06/2018, colonoscopy, skin cancer removal. Past Anesthesia/Blood Transfusion Reactions: No Reported Reaction Additional Past Anesthesia/Blood Transfusion Reaction / Comment(s): . Date of Last Stent Placement:: 06/06/18 Type of Cardiac Device: Permanent Pacemaker Device Placement Date:: 04/2016 Past Psychological History: Anxiety, Depression Additional Psychological History / Comment(s): Pt has her son and daughter in law living with her. She uses a walker and has a wheelchair for longer distaces. She no longer drives, her family drives her to [employer]. Her son manages her medications. Daughter in law cooks. Pt states her depression has been increased intermittently but denies any thoughts/plans of suicide. Smoking Status: Never smoker Past Alcohol Use History: None Reported Past Drug Use History: None Reported - Past Family History Mother Family Medical History: Cancer, COPD, Hypertension Additional Family Medical History / Comment(s): Mother had bone cancer. Father Family Medical History: Cancer, Hypertension Additional Family Medical History / Comment(s): Father had skin cancer. Medications and Allergies Home Medications Medication Instructions Recorded Confirmed Type Ferrous Sulfate [Iron (65 MG 325 mg PO DAILY 03/27/18 11/29/21 History Elemental)] levETIRAcetam [Keppra] 500 mg PO TID 07/21/18 11/29/21 History QUEtiapine [SEROquel] 100 mg PO HS 30 Days #30 tab 04/13/19 11/29/21 Rx Escitalopram Oxalate [Lexapro] 20 mg PO DAILY 12/19/19 11/29/21 History Pantoprazole [Protonix] 40 mg PO DAILY 12/19/19 11/29/21 History amLODIPine [Norvasc] 5 mg PO DAILY 90 Days #90 tab 12/22/19 11/29/21 Rx QUEtiapine [SEROquel] 25 mg PO BID@0900,1200 09/17/20 11/29/21 History Albuterol Sulfate [Ventolin HFA] 2 puff INHALATION RT-DAILY 10/12/21 11/29/21 History Aspirin EC [Ecotrin Low Dose] 81 mg PO DAILY 10/12/21 11/29/21 History Atorvastatin [Lipitor] 20 mg PO HS 10/12/21 11/29/21 History Calcium Citrate/Vitamin D3 1 tab PO DAILY 10/12/21 11/29/21 History [Citracal + D Maximum Caplet] Cholecalciferol [Vitamin D3 (25 25 mcg PO DAILY 10/12/21 11/29/21 History Mcg = 1000 Iu)] Ibuprofen [Motrin Ib] 400 mg PO HS 10/12/21 11/29/21 History Insulin Glargine/Lixisenatide 30 units SQ HS 10/12/21 11/29/21 History [Soliqua 100 Unit-33 Mcg/ml Pen] Prednisolone Acetate/Pf 1 drop RIGHT EYE SUFRSA 10/12/21 11/29/21 History [Prednisolone Acet 1% Eye Drop] Sodium Chloride 5% Ophth Soln 1 drop BOTH EYES BID 10/12/21 11/29/21 History [Amanda 128] Furosemide [Lasix] 20 mg PO DAILY 90 Days #90 tab 10/18/21 11/29/21 Rx lisinopriL [Zestril] 20 mg PO DAILY 90 Days #90 tab 10/18/21 11/29/21 Rx Ibuprofen [Motrin Ib] 200 mg PO DAILY 11/29/21 11/29/21 History Loperamide HCl [Imodium A-D] 2 mg PO BID PRN 11/29/21 11/29/21 History Allergies Allergy/AdvReac Type Severity Reaction Status Date / Time Latex, Natural Rubber Allergy Itching Verified 11/29/21 17:52 sulfamethoxazole Allergy Rash/Hives Verified 11/29/21 17:52 [From Bactrim] trimethoprim [From Bactrim] Allergy Rash/Hives Verified 11/29/21 17:52 Physical Exam Vitals: Vital Signs Temp Pulse Pulse Resp BP BP Pulse Ox 11/30/21 04:00 97.8 F 61 18 127/73 99 11/30/21 01:57 60 18 11/30/21 00:00 97.6 F 60 18 122/69 100 11/29/21 21:26 98.7 F 60 18 126/50 99 11/29/21 21:16 98.1 F 60 18 126/50 99 11/29/21 20:21 69 18 123/61 96 11/29/21 17:48 97.8 F 62 18 103/59 86 L Intake and Output 11/29/21 11/30/21 11/30/21 22:59 06:59 14:59 Other: Voiding Method Toilet # Voids 1 4 Weight 88.451 kg 90.9 kg Results 11/29/21 18:46 11/29/21 18:46 Cardiac Enzymes 11/29/21 11/29/21 Range/Units 18:46 18:46 AST 22 (14-36) U/L Troponin I 0.050 H* (0.000-0.034) ng/mL Coagulation 11/29/21 Range/Units 18:46 PT 10.2 (9.0-12.0) sec APTT 23.8 (22.0-30.0) sec CBC 11/29/21 Range/Units 18:46 WBC 11.7 H (3.8-10.6) k/uL RBC 5.07 (3.80-5.40) m/uL Hgb 14.4 (11.4-16.0) gm/dL Hct 45.5 (34.0-46.0) % Plt Count 184 (150-450) k/uL Comprehensive Metabolic Panel 11/29/21 Range/Units 18:46 Sodium 138 (137-145) mmol/L Potassium 4.2 (3.5-5.1) mmol/L Chloride 95 L (98-107) mmol/L Carbon Dioxide 30 (22-30) mmol/L BUN 37 H (7-17) mg/dL Creatinine 2.22 H (0.52-1.04) mg/dL Glucose 208 H (74-99) mg/dL Calcium 10.0 (8.4-10.2) mg/dL AST 22 (14-36) U/L ALT 15 (4-34) U/L Alkaline Phosphatase 118 (38-126) U/L Total Protein 6.2 L (6.3-8.2) g/dL Albumin 4.2 (3.5-5.0) g/dL Current Medications Generic Name Dose Route Start Last Admin Trade Name Freq PRN Reason Stop Dose Admin Amlodipine Besylate 5 mg 11/30/21 09:00 Amlodipine 5 Mg Tab PO DAILY [facility] Aspirin 81 mg 11/30/21 09:00 Aspirin 81 Mg PO DAILY [facility] Atorvastatin Calcium 20 mg 11/30/21 21:00 Atorvastatin 20 Mg Tab PO HS [facility] Calcium Carbonate 1 each 11/30/21 09:00 Calcium Carb-Vit D 500 Mg-5 Mcg Tab PO DAILY [facility] Cholecalciferol 25 mcg 11/30/21 09:00 Cholecalciferol 25 Mcg (1000 Iu) Tablet PO DAILY [facility] Ferrous Sulfate 325 mg 11/30/21 09:00 Ferrous Sulfate 325 Mg Tab PO DAILY [facility] Furosemide 20 mg 11/30/21 09:00 Furosemide 20 Mg Tab PO DAILY [facility] Sodium Chloride 1,000 mls @ 100 mls/hr 11/29/21 19:45 11/29/21 23:22 Saline 0.9% IV Not Given .Q10H [facility] Sodium Chloride 1,000 mls @ 75 mls/hr 11/29/21 23:30 11/30/21 00:08 Saline 0.9% IV 75 mls/hr .[id number] [facility] Administration Ceftriaxone Sodium 1 gm/ 50 mls @ 100 mls/hr 11/30/21 21:00 Sodium Chloride IVPB 12/03/21 21:29 Q24H [facility] Protocol Ibuprofen 400 mg 11/30/21 21:00 Ibuprofen 400 Mg Tab PO HS [facility] Levetiracetam 500 mg 11/30/21 09:00 Levetiracetam 500 Mg Tab PO TID [facility] Lisinopril 20 mg 11/30/21 09:00 Lisinopril 20 Mg Tab PO DAILY [facility] Loperamide HCl 2 mg 11/29/21 23:04 Loperamide 2 Mg Cap PO BID PRN Diarrhea Naloxone HCl 0.2 mg 11/29/21 19:34 Naloxone 0.4 Mg/Ml 1 Ml Vial IV Q2M PRN Opioid Reversal Non-Formulary Medication 30 units 11/29/21 21:00 11/29/21 23:55 Insulin Glargine/Lixisenatide [Soliqua 100 Unit-33 Mcg/Ml Pen] SQ Not Given HS [facility] Ondansetron HCl 4 mg 11/29/21 19:34 Ondansetron 4 Mg/2 Ml Vial IVP Q8HR PRN Nausea And Vomiting Pantoprazole Sodium 40 mg 11/30/21 09:00 Pantoprazole 40 Mg Tablet PO DAILY [facility] Prednisolone Acetate 1 drops 12/01/21 09:00 Prednisolone Acetate 1% Ophth Drops 5 Ml Btl RIGHT EYE SUFRSA [facility] Sodium Chloride 1 drops 11/29/21 23:30 11/29/21 23:56 Sodium Chloride 5% Ophth Drops 15 Ml Btl BOTH EYES Not Given BID [facility]ER Intake and Output 11/29/21 11/30/21 11/30/21 22:59 06:59 14:59 Other: Voiding Method Toilet # Voids 1 4 Weight 88.451 kg 90.9 kg 11/29/21 18:46 11/29/21 18:46
[2021-11-30 11:43] LABS: Glucose,Whole Blood 280 mg/dL (70-110)
[2021-11-30 13:20] LABS: Albumin 3.8 g/dL (3.5-5.0); Calcium 9.1 mg/dL (8.4-10.2); Potassium 4.4 mmol/L (3.5-5.1); Total Bilirubin 0.5 mg/dL (0.2-1.3); Total Protein 5.8 g/dL (6.3-8.2)
[2021-11-30 16:42] LABS: Glucose,Whole Blood 280 mg/dL (70-110)
[2021-11-30] MEDS: IBUPROFEN 400 MG TAB PO SCH (19:54)
[2021-11-30] MEDS: ATORVASTATIN 20 MG TAB PO SCH (19:54)
[2021-11-30 20:04] LABS: Glucose,Whole Blood 264 mg/dL (70-110)
[2021-11-30] MEDS: NON FORMULARY DRUG (Insulin Glargine/Lixisenatide [Soliqua 100 Unit-33 Mcg/Ml Pen] 3 ML In SQ SCH (20:10)
[2021-11-30] MEDS: QUEtiapine 100 MG TAB PO SCH (21:09)
[2021-11-30] MEDS: INSULIN ASPART (NovoLOG) 100 UNIT/ML VIAL SQ SCH (21:09)
[2021-11-30 21:21] LABS: Glucose,Whole Blood 281 mg/dL (70-110)
--- NOTE | 2021-12-01 01:22 | HP ---
HISTORY AND PHYSICAL HISTORY OF PRESENT ILLNESS: A 76-year-old white female came in. She is recovering from COVID-19 pneumonia and heart failure, paroxysmal atrial fibrillation, she wears oxygen at home, coronary artery disease, sick sinus syndrome, CHF, hypertension, orthostatic . She came with palpitations, headaches, decreased appetite, heart racing, noncompliant with her oxygen at home, possible UTI, burning with urination. She is admitted for rule out MN. LABORATORY DATA: EKG shows ST-T changes. Echo shows 50% to 55% ejection fraction. White count is 1.7, hemoglobin 14.4, potassium 4.2, BUN 37, creatinine 2.2, lactic acid is 3.2, magnesium 2.0. BNP is 2880. MEDICATIONS: See list. Cardiac catheterization in 2019, she had an LAD stent that was open. REVIEW OF SYSTEMS: A 14-point review of systems negative except for difficulty with urination and confusion at times at home. She has frequent UTIs, PND, orthopnea. PHYSICAL EXAMINATION: VITAL SIGNS: She is saturating 100% on 2 L, heart rate 60, blood pressure 125/85. HEENT: Normocephalic, atraumatic. LUNGS: Show decreased breath sounds x4. HEART: S1, S2. ABDOMEN: Soft. EXTREMITIES: 2+ edema. NEURO: She is alert and oriented. Pleasantly confused. ASSESSMENT AND PLAN: Elevated troponin secondary to acute kidney injury; lactic acidosis; rule out myocardial infarction; headache, resolved; palpitations, resolving; acute kidney injury due to dehydration and lactic acidosis; hypoxemia, O2 ; chronic heart failure with preserved ejection fraction; sick sinus syndrome; prior history of cerebrovascular accidents; diabetes; and seizures. Continue cardiology to rule out MN. Rehydrate. Recheck lactic acidosis and BUN and creatinine. Check for urinary tract infection. Prognosis guarded. MMODL / IJN: [id number] /
[2021-12-01] MEDS: SODIUM CHLORIDE 0.9% 1,000 ML IV SCH ×3 (03:30→21:08)
[2021-12-01 06:24] LABS: Glucose,Whole Blood 270 mg/dL (70-110)
[2021-12-01] MEDS: INSULIN ASPART (NovoLOG) 100 UNIT/ML VIAL SQ SCH ×4 (06:25→20:12)
[2021-12-01] MEDS: PANTOPRAZOLE 40 MG TABLET PO SCH (09:51)
[2021-12-01] MEDS: ASPIRIN 81 MG PO SCH (09:51)
[2021-12-01] MEDS: CALCIUM CARB-VIT D 500 MG-5 MCG TAB PO SCH (09:51)
[2021-12-01] MEDS: QUEtiapine 25 MG TAB PO SCH ×2 (09:51→12:39)
[2021-12-01] MEDS: FUROSEMIDE 20 MG TAB PO SCH (09:51)
[2021-12-01] MEDS: lisinopriL 20 MG TAB PO SCH (09:51)
[2021-12-01] MEDS: CHOLECALCIFEROL 25 MCG (1000 IU) TABLET PO SCH (09:51)
[2021-12-01] MEDS: levETIRAcetam 500 MG TAB PO SCH ×3 (09:51→20:16)
[2021-12-01] MEDS: SODIUM CHLORIDE 5% OPHTH DROPS 15 ML BTL BOTH EYES SCH ×2 (09:51→20:14)
[2021-12-01] MEDS: FERROUS SULFATE 325 MG TAB PO SCH (09:51)
[2021-12-01] MEDS: amLODIPine 5 MG TAB PO SCH (09:51)
[2021-12-01 09:56] LABS: Albumin 3.6 g/dL (3.5-5.0); Calcium 8.8 mg/dL (8.4-10.2); Potassium 4.7 mmol/L (3.5-5.1); Total Bilirubin 0.5 mg/dL (0.2-1.3); Total Protein 5.5 g/dL (6.3-8.2)
[2021-12-01 11:53] LABS: Glucose,Whole Blood 205 mg/dL (70-110)
--- NOTE | 2021-12-01 12:23 | P.PN ---
Subjective This is a pleasant 76-year-old female past medical history significant for Recent admission 10/2021 with COVID-19 pneumonia and heart failure, paroxysmal atrial fibrillation not on long-term anticoagulation secondary to brain hemorrhage, coronary artery disease s/p prior PCI LAD 2018, sick sinus syndrome status post pacemaker 2017 ([employer]), congestive heart failure with preserved EF, hypertension with orthostatic hypotension, hyperlipidemia, chronic kidney disease stage III, CVA, type 2 diabetes, seizures, brain mass/fall with intracranial bleeding. Patient follows with Dr. Hawk in the office.. She follows in the office with Dr. Hawk. We have been asked to see in consultation for elevated troponin. Patient presents to the ER with complaints of palpitations and a headache. She states she has been having decreased appetite, not eating or drinking well. Yesterday she had a headache and felt her heart racing, after she did exercises with physical therapy at home. She states by the time she presented to the ER her symptoms resolved. She denied any chest pain, shortness of breath, syncope or near syncope, lightheadedness, dizziness. She denies any symptoms of orthopnea or PND. DIAGNOSTICS * Echocardiogram 10/13/2021 revealed an EF of 5055 %, apical septum hypokinesis * Chest xray no acute cardio pulmonary process. * Cardiac catheterization 04/2019 revealed patent stent in the proximal LAD 12/01 Patient seen and examined at bedside, no acute distress. She denies any chest pain or shortness of breath. She states she had some nausea and lightheadedness after given a medication overnight. Device is interrogated which revealed no acute events, functioning normally. Telemetry tracings indicate atrial paced rhythm, no arrhythmia noted. Renal function is improved with IV fluids. PHYSICAL EXAMINATION Vitals reviewed CONSTITUTIONAL: No apparent distress. HEENT: Head is normocephalic. Pupils are equal, round. Sclerae anicteric. Mucous membranes of the mouth are moist. No JVD. CHEST EXAMINATION: Lungs are clear to auscultation. No chest wall tenderness is noted on palpation or with deep breathing. HEART EXAMINATION: Regular rate and rhythm. S1, S2 heard. No murmurs, gallops or rub. ABDOMEN: Soft, nontender. Positive bowel sounds. EXTREMITIES: 2+ peripheral pulses, 1+ bilateral lower extremity edema and no calf tenderness. NEUROLOGIC EXAMINATION: Patient is awake, alert and oriented x3. ASSESSMENT Elevated troponin, likely secondary to acute kidney injury and hypoxia, no evidence of ischemia by EKG or exam Headache, resolved Palpitations, resolved, patient states this was after exercises at home Acute kidney injury, improved with IV fluids Dehydration Lactic Acidosis Hypoxia Chronic heart failure with preserved ejection fraction Recent admission 10/2021 with COVID-19 pneumonia and heart failure Paroxysmal atrial fibrillation not on long-term anticoagulation secondary to brain hemorrhage requiring rare neurectomy and drainage in 2018 Coronary artery disease s/p prior PCI LAD 2019 Sick sinus syndrome status post pacemaker 2017 Hypertension with orthostatic hypotension Hyperlipidemia Chronic kidney disease stage III History of CVA Type 2 diabetes History of seizures PLAN From a cardiology perspective, patient with elevated troponin likely secondary to acute kidney injury and hypoxia, no evidence of ischemia by EKG or exam. Patient's symptoms have resolved. Echocardiogram 10/13/2021 revealed an EF of 5055 %. Renal fucntion improved with IV fluids. Device is interrogated which revealed no acute events, functioning normally. No further changes from cardiology perspective. Will follow the patient as needed. Please reconsult if needed. Nurse practitioner note has been reviewed by physician. Signing provider agrees with the documented findings, assessment, and plan of care. Objective - Vital Signs Vital signs: Vital Signs Temp 98.2 F 12/01/21 12:00 Pulse 61 12/01/21 12:00 Resp 18 12/01/21 12:00 BP 152/68 12/01/21 12:00 Pulse Ox 99 12/01/21 12:00 FiO2 Intake & Output 11/30/21 12/01/21 12/01/21 18:59 06:59 18:59 Intake Total 236 118 Output Total 600 Balance 236 -600 118 Intake: Oral 236 118 Output: Urine 600 Other: Voiding Method Toilet Toilet # Voids 1 1 # Bowel Movements 2 - Labs CBC & Chem 7: 11/29/21 18:46 12/01/21 08:55 Labs: Abnormal Lab Results - Last 24 Hours (Table) 11/30/21 11/30/21 11/30/21 Range/Units 12:54 16:36 20:03 Sodium 136 L (137-145) mmol/L Chloride 97 L (98-107) mmol/L Carbon Dioxide (22-30) mmol/L BUN 38 H (7-17) mg/dL Creatinine 2.11 H (0.52-1.04) mg/dL Glucose 333 H (74-99) mg/dL POC Glucose (mg/dL) 280 H 264 H (70-110) mg/dL Total Protein 5.8 L (6.3-8.2) g/dL 11/30/21 12/01/21 12/01/21 Range/Units 21:19 06:22 08:55 Sodium (137-145) mmol/L Chloride (98-107) mmol/L Carbon Dioxide 31 H (22-30) mmol/L BUN 31 H (7-17) mg/dL Creatinine 1.91 H (0.52-1.04) mg/dL Glucose 224 H (74-99) mg/dL POC Glucose (mg/dL) 281 H 270 H (70-110) mg/dL Total Protein 5.5 L (6.3-8.2) g/dL 12/01/21 Range/Units 11:50 Sodium (137-145) mmol/L Chloride (98-107) mmol/L Carbon Dioxide (22-30) mmol/L BUN (7-17) mg/dL Creatinine (0.52-1.04) mg/dL Glucose (74-99) mg/dL POC Glucose (mg/dL) 205 H (70-110) mg/dL Total Protein (6.3-8.2) g/dL Microbiology - Last 24 Hours (Table) 11/29/21 18:46 Urine Culture - Final Urine,Voided
[2021-12-01] MEDS: prednisoLONE ACETATE 1% OPHTH DROPS 5 ML BTL RIGHT EYE SCH (12:39)
[2021-12-01 16:43] LABS: Glucose,Whole Blood 178 mg/dL (70-110)
[2021-12-01 19:58] LABS: Glucose,Whole Blood 280 mg/dL (70-110)
[2021-12-01] MEDS: QUEtiapine 100 MG TAB PO SCH (20:12)
[2021-12-01] MEDS: ATORVASTATIN 20 MG TAB PO SCH (20:12)
[2021-12-01] MEDS: IBUPROFEN 400 MG TAB PO SCH (20:12)
[2021-12-01] MEDS: NON FORMULARY DRUG (Insulin Glargine/Lixisenatide [Soliqua 100 Unit-33 Mcg/Ml Pen] 3 ML In SQ SCH (20:13)
[2021-12-01 21:21] VITALS: RESP 16; TEMP 98.2
[2021-12-02 06:15] LABS: Glucose,Whole Blood 294 mg/dL (70-110)
[2021-12-02] MEDS: INSULIN ASPART (NovoLOG) 100 UNIT/ML VIAL SQ SCH ×2 (06:16→12:59)
--- NOTE | 2021-12-02 06:56 | PN ---
PROGRESS NOTE A 76-year-old white female who has generalized weakness, nausea, vomiting, unable to ambulate, today wants to stay another day, treated for possible UTI, dehydration, altered mental status. She has dementia. She wears oxygen at night. Continue current treatments. She has been cleared by Cardiology for discharge. Possibly go home in the next 24 to 48 hours. MMODL / IJN: [id number] /
[2021-12-02] MEDS: SODIUM CHLORIDE 0.9% 1,000 ML IV SCH (07:50)
[2021-12-02] MEDS: FERROUS SULFATE 325 MG TAB PO SCH (08:03)
[2021-12-02] MEDS: lisinopriL 20 MG TAB PO SCH (08:03)
[2021-12-02] MEDS: amLODIPine 5 MG TAB PO SCH (08:03)
[2021-12-02] MEDS: PANTOPRAZOLE 40 MG TABLET PO SCH (08:03)
[2021-12-02] MEDS: FUROSEMIDE 20 MG TAB PO SCH (08:03)
[2021-12-02] MEDS: levETIRAcetam 500 MG TAB PO SCH ×2 (08:03→15:25)
[2021-12-02] MEDS: CALCIUM CARB-VIT D 500 MG-5 MCG TAB PO SCH (08:04)
[2021-12-02] MEDS: QUEtiapine 25 MG TAB PO SCH ×2 (08:04→12:59)
[2021-12-02] MEDS: prednisoLONE ACETATE 1% OPHTH DROPS 5 ML BTL RIGHT EYE SCH (08:04)
[2021-12-02] MEDS: CHOLECALCIFEROL 25 MCG (1000 IU) TABLET PO SCH (08:04)
[2021-12-02] MEDS: ASPIRIN 81 MG PO SCH (08:04)
[2021-12-02] MEDS: SODIUM CHLORIDE 5% OPHTH DROPS 15 ML BTL BOTH EYES SCH (08:05)
[2021-12-02 09:36] VITALS: PULSE 67
[2021-12-02 12:03] LABS: Glucose,Whole Blood 359 mg/dL (70-110)
[2021-12-02 14:24] VITALS: BP 128/66
== END 2021-12-02 15:49 | disposition home or self-care (01) ==
LOC: EC 17:18 → 3SCARD 19:34
PROVIDERS: ADMIT Family Medicine; ATTEND Family Medicine
DX: N17.9 Acute kidney failure, unspecified (principal); R09.02 Hypoxemia; E86.0 Dehydration; E87.20 Acidosis, unspecified; F03.90 Unspecified dementia, unspecified severity, without behavioral disturbance, psychotic disturbance, mood disturbance, and anxiety; I48.0 Paroxysmal atrial fibrillation; I13.0 Hypertensive heart and chronic kidney disease with heart failure and stage 1 through stage 4 chronic kidney disease, or unspecified chronic kidney disease; N18.30 Chronic kidney disease, stage 3 unspecified; M19.012 Primary osteoarthritis, left shoulder; M19.011 Primary osteoarthritis, right shoulder; I25.10 Atherosclerotic heart disease of native coronary artery without angina pectoris; J45.909 Unspecified asthma, uncomplicated; G40.909 Epilepsy, unspecified, not intractable, without status epilepticus; E11.22 Type 2 diabetes mellitus with diabetic chronic kidney disease; E11.42 Type 2 diabetes mellitus with diabetic polyneuropathy; F32.A Depression, unspecified; F41.9 Anxiety disorder, unspecified; I49.5 Sick sinus syndrome; I50.9 Heart failure, unspecified; H54.62 Unqualified visual loss, left eye, normal vision right eye; I95.1 Orthostatic hypotension; E78.5 Hyperlipidemia, unspecified; Z95.0 Presence of cardiac pacemaker; Z79.899 Other long term (current) drug therapy; Z79.82 Long term (current) use of aspirin; Z86.73 Personal history of transient ischemic attack (TIA), and cerebral infarction without residual deficits; Z79.4 Long term (current) use of insulin; Z88.2 Allergy status to sulfonamides; Z91.040 Latex allergy status; Z85.828 Personal history of other malignant neoplasm of skin; Z90.49 Acquired absence of other specified parts of digestive tract; Z90.710 Acquired absence of both cervix and uterus; Z82.49 Family history of ischemic heart disease and other diseases of the circulatory system; Z82.5 Family history of asthma and other chronic lower respiratory diseases; Z80.8 Family history of malignant neoplasm of other organs or systems; Z86.16 Personal history of COVID-19; Z95.5 Presence of coronary angioplasty implant and graft; Z99.81 Dependence on supplemental oxygen; Z91.199 Patient's noncompliance with other medical treatment and regimen due to unspecified reason
CPT/HCPCS: 96365; 96366; 96360; 96361; 96375; 99285; 36415; 94760; 93005; 85379; 83880; 80053 ×3; 82803; 83605; 83735; 84484; 85025; 85610; 85730; 81001; 87086; 71045; G0378 ×4; J0696 ×3

== ENCOUNTER 2022-03-16 16:25 | Inpatient (IN) | payer MEDICARE ==
[2022-03-16] MEDS ORDERED: SODIUM CHLORIDE 0.9% 1,000 ML IV STA ×2 (17:04→19:31)
--- NOTE | 2022-03-16 17:14 | ED ---
General Adult HPI - General Chief complaint: Weakness Stated complaint: weakness Time Seen by Provider: 03/16/22 16:52 Source: patient, EMS, RN notes reviewed, old records reviewed Mode of arrival: EMS Limitations: no limitations - History of Present Illness Initial comments: Patient is a 76-year-old female with past medical history remarkable for atrial fibrillation, asthma, heart failure, CVA, diabetes, hypertension, seizure disorder who presents emergency Department after being brought in by family over concern for worsening weakness for the last month. Patient also had a tooth pulled yesterday and is complaining of pain at the site of the tooth being pulled. Has chronic neck pain. Patient denies any abdominal pain, nausea, vomiting, diarrhea. Denies any chest pain or shortness of breath. His no other acute complaints at this time. This is generalized weakness. Uncertain what is causing it. No altered mental status. Presents for further evaluation at this time. - Related Data Home Medications Medication Instructions Recorded Confirmed levETIRAcetam [Keppra] 500 mg PO TID 07/21/18 03/16/22 Pantoprazole [Protonix] 40 mg PO DAILY 12/19/19 03/16/22 QUEtiapine [SEROquel] 25 mg PO BID 09/17/20 03/16/22 Insulin Glargine/Lixisenatide 15 units SQ DAILY 10/12/21 03/16/22 [Soliqua 100 Unit-33 Mcg/ml Pen] Nystatin 100,000Unit/gm Cream 1 applic TOPICAL BID 03/16/22 03/16/22 [Mycostatin Cream] Previous Rx's Medication Instructions Recorded QUEtiapine [SEROquel] 100 mg PO HS 30 Days #30 tab 04/13/19 amLODIPine [Norvasc] 5 mg PO DAILY 90 Days #90 tab 12/22/19 Allergies Allergy/AdvReac Type Severity Reaction Status Date / Time Latex, Natural Rubber Allergy Itching Verified 03/16/22 19:23 sulfamethoxazole Allergy Rash/Hives Verified 03/16/22 19:23 [From Bactrim] trimethoprim [From Bactrim] Allergy Rash/Hives Verified 03/16/22 19:23 Review of Systems ROS Statement: Those systems with pertinent positive or pertinent negative responses have been documented in the HPI. Review of Systems: CONST: Denies fever EYES: Denies blurry vision ENT: Denies nasal congestion C/V: Denies Chest pain RESP: Denies shortness of breath GI: Denies abdominal pain : Denies dysuria SKIN: Denies rash. MSK: Denies joint pain. NEURO: Denies headache ROS Other: All systems not noted in ROS Statement are negative. Past Medical History Past Medical History: Atrial Fibrillation, Asthma, Coronary Artery Disease (CAD), Cancer, Heart Failure, CVA/TIA, Diabetes Mellitus, Eye Disorder, Hypertension, Osteoarthritis (OA), Renal Disease, Seizure Disorder Additional Past Medical History / Comment(s): Brain mass/fall with intracranial bleed/hematome-surgery at [facility], seizure after brain surgery, paroxysmal Afib, DM type II, neuropathy bilateral feet, orthostatic hypotension, SSS with pacemaker, L1 compression fx, CKD stage III, blind in L eye, UTIs, lower GI bleed, gastritis, gastric erosion, CDiff colitis, skin cancer with removals, past L arm fracture, past R arm fracture x2. History of Any Multi-Drug Resistant Organisms: None Reported, MRSA Date of last positivie culture/infection: 01/26/19 MDRO Source:: URINE Past Surgical History: Cholecystectomy, Heart Catheterization, Heart Catheterization With Stent, Hysterectomy, Pacemaker Additional Past Surgical History / Comment(s): Evacuation of intracranial h ematoma and ressection of hemorrhagic mass, pacemaker 2016, PCI with stent 06/06/18, EGD/colonoscopy, R eye corneal implant/cataract removal, EGD 06/2018, colonoscopy, skin cancer removal. Past Anesthesia/Blood Transfusion Reactions: No Reported Reaction Additional Past Anesthesia/Blood Transfusion Reaction / Comment(s): . Date of Last Stent Placement:: 06/06/18 Type of Cardiac Device: Permanent Pacemaker Device Placement Date:: 04/2016 Past Psychological History: Anxiety, Depression Smoking Status: Never smoker Past Alcohol Use History: None Reported Past Drug Use History: None Reported - Past Family History Mother Family Medical History: Cancer, COPD, Hypertension Additional Family Medical History / Comment(s): Mother had bone cancer. Father Family Medical History: Cancer, Hypertension Additional Family Medical History / Comment(s): Father had skin cancer. General Exam - General Exam Comments Initial Comments: General: Appears in no acute distress. HEAD: Normal with no signs of head trauma. EYES: PERRLA, EOMI, conjunctiva normal, no discharge. Pupils are 3 mm equal bilaterally. ENT: Hearing grossly intact, normal oropharynx. Dry mucous membranes RESPIRATORY: Clear breath sounds bilaterally. No wheezes, rales, or rhonchi. C/V: Regular rate and rhythm. S1 and S2 auscultated, no edema, peripheral pulses 2+ and intact throughout ABD: Abd is soft, nontender, nondistended EXT: Normal range of motion, no obvious deformity SKIN: No rashes or lesions observed on exposed skin. NEURO: Alert and oriented x 4. Cranial nerves II-XII intact. No focal sensory or strength deficits. GCS of 15. NIH of 0. Limitations: no limitations Course Vital Signs 03/16/22 03/16/22 03/16/22 16:27 19:12 20:10 Temperature 97.0 F L Pulse Rate 60 77 81 Respiratory 18 17 18 Rate Blood Pressure 117/64 161/69 145/65 O2 Sat by Pulse 96 95 95 Oximetry 03/16/22 20:19 Temperature 97.6 F Pulse Rate Respiratory Rate Blood Pressure O2 Sat by Pulse Oximetry Medical Decision Making - Medical Decision Making Was pt. sent in by a medical professional or institution (, PA, STEEL ERECTOR APPRENTICE, urgent care, hospital, or fci...) When possible be specific @ -No Did you speak to anyone other than the patient for history (EMS, parent, family, police, friend...)? What history was obtained from this source @ -No Did you review nursing and triage notes (agree or disagree)? Why? @ -I reviewed and agree with nursing and triage notes Were old charts reviewed (outside hosp., previous admission, EMS record, old EKG, old radiological studies, urgent care reports/EKG's, fci records)? Report findings @ -Yes, old EKGs and charts were reviewed Differential Diagnosis (chest pain, altered mental status, abdominal pain women, abdominal pain men, vaginal bleeding, weakness, fever, dyspnea, syncope, headache, dizziness, GI bleed, back pain, seizure, CVA, palpatations, mental health)? @ -Differential Weakness: Hypoglycemia, shock, sepsis, hyponatremia, anemia, infection, ME, ETOH, adverse medicine reaction, overdose, stroke, this is not meant to be an all-inclusive list. EKG interpreted by me (3pts min.). @ -As above X-rays interpreted by me (1pt min.). @ -Chest x-ray showed no acute cardio pulmonary process, infiltrate CT interpreted by me (1pt min.). @ -None done U/S interpreted by me (1pt. min.). @ -None done What testing was considered but not performed or refused? (CT, X-rays, U/S, labs)? Why? @ -None What meds were considered but not given or refused? Why? @ -None Did you discuss the management of the patient with other professionals (professionals i.e. , PA, STEEL ERECTOR APPRENTICE, lab, RT, psych nurse, social media executive, donation worker, teacher, global safety officer, case reviewer)? Give summary @ -No Was smoking cessation discussed for >3mins.? @ -No Was critical care preformed (if so, how long)? @ -No Were there social determinants of health that impacted care today? How? (Homelessness, low income, unemployed, alcoholism, drug addiction, transportation, low edu. Level, literacy, decrease access to med. care, nursing home, rehab)? @ -No Was there de-escalation of care discussed even if they declined (Discuss DNR or withdrawal of care, Hospice)? DNR status @ -No What co-morbidities impacted this encounter? (DM, HTN, Smoking, COPD, CAD, Cancer, CVA, ARF, Chemo, Hep., AIDS, mental health diagnosis, sleep apnea, morbid obesity)? @ -None Was patient admitted / discharged? Hospital course, mention meds given and route, prescriptions, significant lab abnormalities, going to OR and other pertinent info. @ -Based on the patient's presentation and physical exam, she presents for generalized weakness for the last month. No other obvious symptoms at this time. Vital signs within acceptable limits. Broad workup was obtained. EKG showed no signs of acute ischemia but did show chronic findings as well as a pacemaker being present. She does have a history of A. fib. Is not on blood thinners. Chest x-ray showed no acute findings. Laboratory studies were remarkable for a lactic acidosis of 2.6, a elevated BUN/creatinine in the setting of CK D, elevated hemoglobin of 16.2. Troponin is also elevated to 0.04 which is likely secondary to dehydration. Urinalysis is remarkable for findings consistent with a UTI. Patient is fluid, Covid, RSV negative. I discussed the findings with the patient. I would like to admitted to the hospital for dehydration, degenerative troponin, as well as provide fluid hydration. She was in agreement this plan. She'll be started on antibiotics for her UTI. She was given an aspirin for her elevated troponin. She is placed on subcutaneous heparin at this time. All medications were ordered. Troponin will be trended. She was started on Rocephin for her UTI. I spoke with the patient's PCP, Dr. Zamarripa who accepted the patient. Patient was admitted in stable condition. She was given a fluid bolus here in the department and we will continue with maintenance fluids upon admission. Undiagnosed new problem with uncertain prognosis? @ -No Drug Therapy requiring intensive monitoring for toxicity (Heparin, Nitro, Insulin, Cardizem)? @ -No Were any procedures done? @ -No Diagnosis/symptom? @ -UTI Acute, or Chronic, or Acute on Chronic? @ -Acute Uncomplicated (without systemic symptoms) or Complicated (systemic symptoms)? @ -Complicated Side effects of treatment? @ -No Exacerbation, Progression, or Severe Exacerbation? @ -No Poses a threat to life or bodily function? How? (Chest pain, USA, ME, pneumonia, PE, COPD, DKA, ARF, appy, cholecystitis, CVA, Diverticulitis, Homicidal, Suicidal, threat to staff... and all critical care pts) @ -Yes, untreated can result in significant morbidity and mortality. Diagnosis/symptom? @ -Dehydration Acute, or Chronic, or Acute on Chronic? @ -Acute Uncomplicated (without systemic symptoms) or Complicated (systemic symptoms)? @ -Complicated Side effects of treatment? @ -none Exacerbation, Progression, or Severe Exacerbation] @ -no Poses a threat to life or bodily function? @ -If untreated can result in significant morbidity mortality Diagnosis/symptom? @ -Troponin elevation, likely secondary to dehydration Acute, or Chronic, or Acute on Chronic? @ -Acute Uncomplicated (without systemic symptoms) or Complicated (systemic symptoms)? @ -Uncomplicated Side effects of treatment? @ -none Exacerbation, Progression, or Severe Exacerbation] @ -no Poses a threat to life or bodily function? @ -no Diagnosis/symptom? @ -Weakness Acute, or Chronic, or Acute on Chronic? @ -Chronic Uncomplicated (without systemic symptoms) or Complicated (systemic symptoms)? @ -Complicated Side effects of treatment? @ -none Exacerbation, Progression, or Severe Exacerbation] @ -no Poses a threat to life or bodily function? @ -Yes. Can result in debility Diagnosis/symptom? @ -CK D Acute, or Chronic, or Acute on Chronic? @ -Chronic Uncomplicated (without systemic symptoms) or Complicated (systemic symptoms)? @ -Uncomplicated Side effects of treatment? @ -none Exacerbation, Progression, or Severe Exacerbation] @ -no Poses a threat to life or bodily function? @ -no - Lab Data Result diagrams: 03/16/22 17:11 03/16/22 17:11 Lab Results 03/16/22 03/16/22 03/16/22 Range/Units 17:11 17:11 17:11 WBC 7.0 (3.8-10.6) k/uL RBC 5.65 H (3.80-5.40) m/uL Hgb 16.2 H (11.4-16.0) gm/dL Hct 51.1 H (34.0-46.0) % MCV 90.5 (80.0-100.0) fL MCH 28.7 (25.0-35.0) pg MCHC 31.7 (31.0-37.0) g/dL RDW 13.2 (11.5-15.5) % Plt Count 210 (150-450) k/uL MPV 8.0 Neutrophils % 71 % Lymphocytes % 19 % Monocytes % 6 % Eosinophils % 1 % Basophils % 1 % Neutrophils # 4.9 (1.3-7.7) k/uL Lymphocytes # 1.3 (1.0-4.8) k/uL Monocytes # 0.4 (0-1.0) k/uL Eosinophils # 0.1 (0-0.7) k/uL Basophils # 0.1 (0-0.2) k/uL PT 10.5 (9.0-12.0) sec INR 1.0 (<1.2) APTT 24.8 (22.0-30.0) sec Sodium (137-145) mmol/L Potassium (3.5-5.1) mmol/L Chloride (98-107) mmol/L Carbon Dioxide (22-30) mmol/L Anion Gap mmol/L BUN (7-17) mg/dL Creatinine (0.52-1.04) mg/dL Est GFR (CKD-EPI)AfAm (>60 ml/min/1.73 sqM) Est GFR (CKD-EPI)NonAf (>60 ml/min/1.73 sqM) Glucose (74-99) mg/dL POC Glucose (mg/dL) (70-110) mg/dL POC Glu Cardio Clinician ID Lactic Ac Sepsis Rflx Plasma Lactic Acid Hema (0.7-2.0) mmol/L Calcium (8.4-10.2) mg/dL Magnesium (1.6-2.3) mg/dL Total Bilirubin (0.2-1.3) mg/dL AST (14-36) U/L ALT (4-34) U/L Alkaline Phosphatase (38-126) U/L Troponin I (0.000-0.034) ng/mL Total Protein (6.3-8.2) g/dL Albumin (3.5-5.0) g/dL Urine Color Yellow Urine Appearance Cloudy H (Clear) Urine pH 5.5 (5.0-8.0) Ur Specific [place] 1.038 H (1.001-1.035) Urine Protein 1+ H (Negative) Urine Glucose (UA) Trace H (Negative) Urine Ketones 1+ H (Negative) Urine Blood Negative (Negative) Urine Nitrite Negative (Negative) Urine Bilirubin 1+ H (Negative) Urine Urobilinogen 3.0 (<2.0) mg/dL Ur Leukocyte Esterase Large H (Negative) Urine RBC 16 H (0-5) /hpf Urine WBC 55 H (0-5) /hpf Ur Squamous Epith Cells 5 H (0-4) /hpf Urine Bacteria Rare H (None) /hpf Hyaline Casts 7 H (0-2) /lpf Urine Mucus Few H (None) /hpf Influenza Type A (PCR) (Not Detectd) Influenza Type B (PCR) (Not Detectd) RSV (PCR) (Not Detectd) SARS-CoV-2 (PCR) (Not Detectd) 03/16/22 03/16/22 03/16/22 Range/Units 17:11 17:11 17:11 WBC (3.8-10.6) k/uL RBC (3.80-5.40) m/uL Hgb (11.4-16.0) gm/dL Hct (34.0-46.0) % MCV (80.0-100.0) fL MCH (25.0-35.0) pg MCHC (31.0-37.0) g/dL RDW (11.5-15.5) % Plt Count (150-450) k/uL MPV Neutrophils % % Lymphocytes % % Monocytes % % Eosinophils % % Basophils % % Neutrophils # (1.3-7.7) k/uL Lymphocytes # (1.0-4.8) k/uL Monocytes # (0-1.0) k/uL Eosinophils # (0-0.7) k/uL Basophils # (0-0.2) k/uL PT (9.0-12.0) sec INR (<1.2) APTT (22.0-30.0) sec Sodium 142 (137-145) mmol/L Potassium 4.7 (3.5-5.1) mmol/L Chloride 101 (98-107) mmol/L Carbon Dioxide 28 (22-30) mmol/L Anion Gap 13 mmol/L BUN 27 H (7-17) mg/dL Creatinine 1.71 H (0.52-1.04) mg/dL Est GFR (CKD-EPI)AfAm 33 (>60 ml/min/1.73 sqM) Est GFR (CKD-EPI)NonAf 29 (>60 ml/min/1.73 sqM) Glucose 153 H (74-99) mg/dL POC Glucose (mg/dL) (70-110) mg/dL POC Glu Cardio Clinician ID Lactic Ac Sepsis Rflx Plasma Lactic Acid Hema 2.6 H* (0.7-2.0) mmol/L Calcium 9.8 (8.4-10.2) mg/dL Magnesium 2.0 (1.6-2.3) mg/dL Total Bilirubin 1.0 (0.2-1.3) mg/dL AST 47 H (14-36) U/L ALT 22 (4-34) U/L Alkaline Phosphatase 114 (38-126) U/L Troponin I 0.040 H* (0.000-0.034) ng/mL Total Protein 7.2 (6.3-8.2) g/dL Albumin 4.5 (3.5-5.0) g/dL Urine Color Urine Appearance (Clear) Urine pH (5.0-8.0) Ur Specific [place] (1.001-1.035) Urine Protein (Negative) Urine Glucose (UA) (Negative) Urine Ketones (Negative) Urine Blood (Negative) Urine Nitrite (Negative) Urine Bilirubin (Negative) Urine Urobilinogen (<2.0) mg/dL Ur Leukocyte Esterase (Negative) Urine RBC (0-5) /hpf Urine WBC (0-5) /hpf Ur Squamous Epith Cells (0-4) /hpf Urine Bacteria (None) /hpf Hyaline Casts (0-2) /lpf Urine Mucus (None) /hpf Influenza Type A (PCR) (Not Detectd) Influenza Type B (PCR) (Not Detectd) RSV (PCR) (Not Detectd) SARS-CoV-2 (PCR) (Not Detectd) 03/16/22 03/16/22 03/16/22 Range/Units 17:11 17:24 18:06 WBC (3.8-10.6) k/uL RBC (3.80-5.40) m/uL Hgb (11.4-16.0) gm/dL Hct (34.0-46.0) % MCV (80.0-100.0) fL MCH (25.0-35.0) pg MCHC (31.0-37.0) g/dL RDW (11.5-15.5) % Plt Count (150-450) k/uL MPV Neutrophils % % Lymphocytes % % Monocytes % % Eosinophils % % Basophils % % Neutrophils # (1.3-7.7) k/uL Lymphocytes # (1.0-4.8) k/uL Monocytes # (0-1.0) k/uL Eosinophils # (0-0.7) k/uL Basophils # (0-0.2) k/uL PT (9.0-12.0) sec INR (<1.2) APTT (22.0-30.0) sec Sodium (137-145) mmol/L Potassium (3.5-5.1) mmol/L Chloride (98-107) mmol/L Carbon Dioxide (22-30) mmol/L Anion Gap mmol/L BUN (7-17) mg/dL Creatinine (0.52-1.04) mg/dL Est GFR (CKD-EPI)AfAm (>60 ml/min/1.73 sqM) Est GFR (CKD-EPI)NonAf (>60 ml/min/1.73 sqM) Glucose (74-99) mg/dL POC Glucose (mg/dL) 146 H (70-110) mg/dL POC Glu Cardio Clinician ID Avelina Tomas Lactic Ac Sepsis Rflx Y Plasma Lactic Acid Hema (0.7-2.0) mmol/L Calcium (8.4-10.2) mg/dL Magnesium (1.6-2.3) mg/dL Total Bilirubin (0.2-1.3) mg/dL AST (14-36) U/L ALT (4-34) U/L Alkaline Phosphatase (38-126) U/L Troponin I (0.000-0.034) ng/mL Total Protein (6.3-8.2) g/dL Albumin (3.5-5.0) g/dL Urine Color Urine Appearance (Clear) Urine pH (5.0-8.0) Ur Specific [place] (1.001-1.035) Urine Protein (Negative) Urine Glucose (UA) (Negative) Urine Ketones (Negative) Urine Blood (Negative) Urine Nitrite (Negative) Urine Bilirubin (Negative) Urine Urobilinogen (<2.0) mg/dL Ur Leukocyte Esterase (Negative) Urine RBC (0-5) /hpf Urine WBC (0-5) /hpf Ur Squamous Epith Cells (0-4) /hpf Urine Bacteria (None) /hpf Hyaline Casts (0-2) /lpf Urine Mucus (None) /hpf Influenza Type A (PCR) Not Detected (Not Detectd) Influenza Type B (PCR) Not Detected (Not Detectd) RSV (PCR) Not Detected (Not Detectd) SARS-CoV-2 (PCR) Not Detected (Not Detectd) - EKG Data -: EKG Interpreted by Me EKG Comments: 12-lead Electrocardiogram Interpretation Note EKG was reviewed and interpreted by myself. 12-lead ECG performed at 1639 is interpreted by me as revealing atrial paced rhythm at a rate of at 60 beats per minute. [place] is normal. SC interval is 290 ms, QRS duration is 105 ms, QTc is 485 ms.. There are chronic ST segment and T wave abnormalities seen in the inf erior lateral leads including T-wave inversions in mild ST segment depressions which are seen on prior EKGs, most recently on EKG from 11/29/2021. R wave progression across the precordium was satisfactory. By my interpretation this EKG is non-diagnostic for acute ischemia. It shows chronic EKG changes from November 2021. Disposition Clinical Impression: Weakness, UTI (urinary tract infection), Acute kidney injury superimposed on CKD, Elevated troponin, Dehydration Disposition: ADMITTED IP TO THIS HOSP Condition: Stable Time of Disposition: 19:15
[2022-03-16 17:27] LABS: Glucose,Whole Blood 146 mg/dL (70-110)
[2022-03-16 17:46] LABS: Albumin 4.5 g/dL (3.5-5.0); Calcium 9.8 mg/dL (8.4-10.2); Potassium 4.7 mmol/L (3.5-5.1); Total Protein 7.2 g/dL (6.3-8.2)
--- NOTE | 2022-03-16 17:46 | XR ---
EXAMINATION TYPE: XR chest 2V DATE OF EXAM: 03/16/2022 COMPARISON: 11/29/2021 HISTORY: Weakness TECHNIQUE: FINDINGS: Heart and mediastinum are within normal limits. Lungs are clear. Diaphragm is normal. There is left axillary pacemaker. No pleural effusion. There is significant arthritic change in the should er joints. IMPRESSION: No active cardiopulmonary disease. No adverse change.
[2022-03-16 17:49] LABS: Basophils # (A) 0.1 k/uL (0-0.2); Basophils % (A) 1 %; Eosinophils # (A) 0.1 k/uL (0-0.7); Eosinophils % (A) 1 %; HCT 51.1 % (34.0-46.0); HGB 16.2 gm/dL (11.4-16.0); Lymphocytes # (A) 1.3 k/uL (1.0-4.8); Lymphocytes % (A) 19 %; MCH 28.7 pg (25.0-35.0); MCHC 31.7 g/dL (31.0-37.0); MCV 90.5 fL (80.0-100.0); Monocytes # (A) 0.4 k/uL (0-1.0); Monocytes % (A) 6 %; Neutrophils # (A) 4.9 k/uL (1.3-7.7); Neutrophils % (A) 71 %; Platelet Count 210 k/uL (150-450); RBC 5.65 m/uL (3.80-5.40); RDW 13.2 % (11.5-15.5)
[2022-03-16 17:59] LABS: Partial Thromboplastin Time 24.8 sec (22.0-30.0); Prothrombin Time 10.5 sec (9.0-12.0)
[2022-03-16 18:16] LABS: Appearance,Urine Cloudy (Clear); Bacteria,Urine Rare /hpf; Bilirubin,Urine 1+ (Negative); Blood,Urine Negative (Negative); Color,Urine Yellow; Glucose,Urine (UA) Trace (Negative); Hyaline Casts,Urine 7 /lpf (0-2); Ketones,Urine 1+ (Negative); Leukocyte Esterase,Urine Large (Negative); Mucus,Urine Few /hpf; Nitrite,Urine Negative (Negative); PH, Urine 5.5 (5.0-8.0); Protein,Urine 1+ (Negative); RBC,Urine 16 /hpf (0-5); Specific Gravity,Urine 1.038 (1.001-1.035); Squamous Epithelial Cell,Urine 5 /hpf (0-4); WBC,Urine 55 /hpf (0-5)
[2022-03-16] MEDS ORDERED: NALOXONE 0.4 MG/ML 1 ML VIAL IV PRN (19:31)
[2022-03-16] MEDS ORDERED: ASPIRIN 81 MG PO STA (19:31)
[2022-03-16] MEDS: levETIRAcetam 500 MG TAB PO SCH (20:10)
[2022-03-16] MEDS: QUEtiapine 100 MG TAB PO SCH (20:10)
[2022-03-16 22:09] LABS: Glucose,Whole Blood 180 mg/dL (70-110)
[2022-03-16] MEDS: NYSTATIN 100,000UNIT/GM CREAM 30 GM TUBE TOPICAL SCH (22:43)
[2022-03-16] MEDS: ACETAMINOPHEN TAB 325 MG TAB PO PRN (22:43)
[2022-03-16] MEDS: HEPARIN SODIUM,PORCINE/PF 5,000 UNIT/0.5 ML SYRINGE SQ SCH (23:47)
[2022-03-17 03:46] LABS: Glucose,Whole Blood 142 mg/dL (70-110)
[2022-03-17 05:53] LABS: Glucose,Whole Blood 180 mg/dL (70-110)
[2022-03-17] MEDS: INSULIN ASPART (NovoLOG) 100 UNIT/ML VIAL SQ SCH ×4 (06:31→20:52)
[2022-03-17] MEDS: QUEtiapine 25 MG TAB PO SCH ×2 (09:07→12:21)
[2022-03-17] MEDS: HEPARIN SODIUM,PORCINE/PF 5,000 UNIT/0.5 ML SYRINGE SQ SCH ×3 (09:07→23:36)
[2022-03-17] MEDS: amLODIPine 5 MG TAB PO SCH (09:07)
[2022-03-17] MEDS: PANTOPRAZOLE 40 MG TABLET PO SCH (09:07)
[2022-03-17] MEDS: levETIRAcetam 500 MG TAB PO SCH ×3 (09:07→22:49)
[2022-03-17] MEDS: NYSTATIN 100,000UNIT/GM CREAM 30 GM TUBE TOPICAL SCH ×2 (09:07→20:52)
[2022-03-17] MEDS: PATIENT'S OWN (Insulin Glargine/Lixisenatide [Soliqua 100 Unit-33 Mcg/Ml Pen] 3 ML In SQ SCH (09:08)
[2022-03-17 09:35] LABS: Basophils # (A) 0.1 k/uL (0-0.2); Basophils % (A) 1 %; Eosinophils # (A) 0.1 k/uL (0-0.7); Eosinophils % (A) 3 %; HCT 44.5 % (34.0-46.0); HGB 13.6 gm/dL (11.4-16.0); Lymphocytes # (A) 1.2 k/uL (1.0-4.8); Lymphocytes % (A) 24 %; MCH 27.9 pg (25.0-35.0); MCHC 30.6 g/dL (31.0-37.0); MCV 91.2 fL (80.0-100.0); Mean Platelet Volume 7.7; Monocytes # (A) 0.4 k/uL (0-1.0); Monocytes % (A) 8 %; Neutrophils # (A) 3.2 k/uL (1.3-7.7); Neutrophils % (A) 61 %; Platelet Count 182 k/uL (150-450); RBC 4.88 m/uL (3.80-5.40); RDW 13.2 % (11.5-15.5); WBC 5.2 k/uL (3.8-10.6)
[2022-03-17 09:45] LABS: Calcium 8.3 mg/dL (8.4-10.2); Potassium 3.4 mmol/L (3.5-5.1)
[2022-03-17 12:06] LABS: Glucose,Whole Blood 189 mg/dL (70-110)
[2022-03-17] MEDS: SODIUM CHLORIDE 0.9% 1,000 ML IV SCH (12:21)
--- NOTE | 2022-03-17 13:01 | P.CRDCN ---
History of Present Illness Consult date: 03/17/22 History of present illness: This pleasant 76-year-old female with a known medical history of heart failure, proximal atrial fibrillation on him arm term anticoagulation secondary to brain hemorrhage, coronary artery disease status post prior PCI to the LAD in 2019, sick sinus syndrome status post pacemaker in 2017(ReferralMD), congestive heart failure with a preserved EF, hypertension with orthostatic hypotension, hyperlipidemia, chronic kidney disease stage III, CVA, type 2 diabetes, seizure, brain mass/fall with intracranial bleeding. Patient follows with Dr. Hawk in the office. We have been asked to see the patient for elevated troponins. . Patient presented to the ER with increased weakness she was brought in by family. Patient's troponin was 0.04, 0.032, 0.038. Patient has a known history of chronic kidney disease. Upon admission creatinine was 1.71. On prior admission creatinine was 1.9. Patient is a paced with ST depression and marked T-wave abnormality on her EKG no change from prior. Patient had an echocardiogram in October 2021 which showed a normal LV systolic function. Upon admission patient was found to have a UTI and is being treated with IV antibiotics. Will obtain a repeat 2-D echocardiogram. Will continue with curre nt cardiac medications. Review of Systems REVIEW OF SYSTEMS At the time of my exam: CONSTITUTIONAL: Denies fever or chills. EYES: Negative for vision changes ENT: Negative for hearing loss CARDIOVASCULAR: Denies chest pain, shortness of breath, diaphoresis, orthopnea, PND or palpitations. VASCULAR: Denies edema RESPIRATORY: Denies cough. GASTROINTESTINAL: Denies abdominal pain, diarrhea, constipation, nausea or vomiting. MUSCULOSKELETAL: Complains of weakness NEUROLOGIC: Denies numbness, tingling, headache or weakness. ENDOCRINE: Denies fatigue, weight change, polydipsia or polyurina. GENITOURINARY: Denies burning, hematuria or urgency with micturation. HEMATOLOGIC: Denies history of anemia or bleeding. DERMATOLOGY: Denies rash or skin sores PSYCH: Negative for depression or hallucinations. Past Medical History Past Medical History: Atrial Fibrillation, Asthma, Coronary Artery Disease (CAD), Cancer, Heart Failure, CVA/TIA, Diabetes Mellitus, Eye Disorder, Hypertension, Osteoarthritis (OA), Renal Disease, Seizure Disorder Additional Past Medical History / Comment(s): Brain mass/fall with intracranial bleed/hematome-surgery at [facility], seizure after brain surgery, paroxysmal Afib, DM type II, neuropathy bilateral feet, orthostatic hypotension, SSS with pacemaker, L1 compression fx, CKD stage III, blind in L eye, UTIs, lower GI bleed, gastritis, gastric erosion, CDiff colitis, skin cancer with removals, past L arm fracture, past R arm fracture x2. History of Any Multi-Drug Resistant Organisms: None Reported, MRSA Date of last positivie culture/infection: 01/26/19 MDRO Source:: URINE Past Surgical History: Cholecystectomy, Heart Catheterization, Heart Catheteriz ation With Stent, Hysterectomy, Pacemaker Additional Past Surgical History / Comment(s): Evacuation of intracranial hematoma and ressection of hemorrhagic mass, pacemaker 2016, PCI with stent 06/06/18, EGD/colonoscopy, R eye corneal implant/cataract removal, EGD 06/2018, c olonoscopy, skin cancer removal. Past Anesthesia/Blood Transfusion Reactions: No Reported Reaction Additional Past Anesthesia/Blood Transfusion Reaction / Comment(s): . Date of Last Stent Placement:: 06/06/18 Type of Cardiac Device: Permanent Pacemaker Device Placement Date:: 04/2016 Past Psychological History: Anxiety, Depression Smoking Status: Never smoker Past Alcohol Use History: None Reported Past Drug Use History: None Reported - Past Family History Mother Family Medical History: Cancer, COPD, Hypertension Additional Family Medical History / Comment(s): Mother had bone cancer. Father Family Medical History: Cancer, Hypertension Additional Family Medical History / Comment(s): Father had skin cancer. Medications and Allergies Home Medications Medication Instructions Recorded Confirmed Type levETIRAcetam [Keppra] 500 mg PO TID 07/21/18 03/16/22 History QUEtiapine [SEROquel] 100 mg PO HS 30 Days #30 tab 04/13/19 03/16/22 Rx Pantoprazole [Protonix] 40 mg PO DAILY 12/19/19 03/16/22 History amLODIPine [Norvasc] 5 mg PO DAILY 90 Days #90 tab 12/22/19 03/16/22 Rx QUEtiapine [SEROquel] 25 mg PO BID 09/17/20 03/16/22 History Insulin Glargine/Lixisenatide 15 units SQ DAILY 08/11/22 01/13/23 History [Soliqua 100 Unit-33 Mcg/ml Pen] Nystatin 100,000Unit/gm Cream 1 applic TOPICAL BID 03/16/22 03/16/22 History [Mycostatin Cream] Allergies Allergy/AdvReac Type Severity Reaction Status Date / Time Latex, Natural Rubber Allergy Itching Verified 03/16/22 19:23 sulfamethoxazole Allergy Rash/Hives Verified 03/16/22 19:23 [From Bactrim] trimethoprim [From Bactrim] Allergy Rash/Hives Verified 03/16/22 19:23 Physical Exam Vitals: Vital Signs Temp Pulse Pulse Resp BP BP Pulse Ox 03/17/22 12:00 65 16 176/72 92 L 03/17/22 08:00 67 16 149/69 94 L 03/17/22 04:00 97.7 F 74 18 152/79 93 L 03/17/22 02:00 65 18 03/17/22 00:00 97.9 F 65 18 137/78 93 L 03/16/22 21:42 97.4 F L 77 18 181/75 94 L 03/16/22 20:19 97.6 F 03/16/22 20:10 81 18 145/65 95 03/16/22 19:12 77 17 161/69 95 03/16/22 16:27 97.0 F L 60 18 117/64 96 Intake and Output 03/16/22 03/17/22 03/17/22 22:59 06:59 14:59 Intake Total 180 Output Total 200 Balance -200 180 Intake: Oral 180 Output: Urine 200 Other: Voiding Method External Catheter External Catheter # Voids 1 Weight 77.111 kg General: The patient is awake and alert, in no distress, and does not appear acutely ill. Skin: Skin is warm and dry and no rashes or lesions are noted. Eye: Pupils are equal, round and reactive to light, extra-ocular movements are intact; there is normal conjunctiva bilaterally. Ears, nose, mouth and throat: There are moist mucous membranes and no oral lesions. Neck: The neck is supple, there is no tenderness or JVD. Cardiovascular: There is regular rate and rhythm. No murmur, rub or gallop is appreciated. Respiratory: Lungs are clear to auscultation, respirations are non-labored, breath sounds are equal. Gastrointestinal: Soft, non-distended, non-tender abdomen without masses or organomegaly noted. There is no rebound or guarding present. Bowel sounds are unremarkable. Back: There is no tenderness to palpation in the midline. There is no obvious deformity. Musculoskeletal: Normal ROM, no tenderness, There is no pedal edema. There is no calf tenderness or swelling. Extremities: Mild bilateral pitting edema Vascular: Femoral pulse is normal. Posterior tibial pulses are normal .Dorsalis pedis is palpable. Neurological: CN II-XII intact. There are no obvious motor or sensory deficits. Speech is normal. Psychiatric: Cooperative, appropriate mood & affect, normal judgment Results 03/17/22 08:35 03/17/22 08:35 Cardiac Enzymes 03/16/22 03/16/22 03/16/22 Range/Units 17:11 17:11 20:25 AST 47 H (14-36) U/L Troponin I 0.040 H* 0.032 (0.000-0.034) ng/mL 03/16/22 Range/Units 23:16 AST (14-36) U/L Troponin I 0.038 H* (0.000-0.034) ng/mL Coagulation 03/16/22 Range/Units 17:11 PT 10.5 (9.0-12.0) sec APTT 24.8 (22.0-30.0) sec CBC 03/16/22 03/17/22 Range/Units 17:11 08:35 WBC 7.0 5.2 (3.8-10.6) k/uL RBC 5.65 H 4.88 (3.80-5.40) m/uL Hgb 16.2 H 13.6 (11.4-16.0) gm/dL Hct 51.1 H 44.5 (34.0-46.0) % Plt Count 210 182 (150-450) k/uL Comprehensive Metabolic Panel 03/16/22 03/17/22 Range/Units 17:11 08:35 Sodium 142 138 (137-145) mmol/L Potassium 4.7 3.4 L (3.5-5.1) mmol/L Chloride 101 104 (98-107) mmol/L Carbon Dioxide 28 29 (22-30) mmol/L BUN 27 H 21 H (7-17) mg/dL Creatinine 1.71 H 1.44 H (0.52-1.04) mg/dL Glucose 153 H 188 H (74-99) mg/dL Calcium 9.8 8.3 L (8.4-10.2) mg/dL AST 47 H (14-36) U/L ALT 22 (4-34) U/L Alkaline Phosphatase 114 (38-126) U/L Total Protein 7.2 (6.3-8.2) g/dL Albumin 4.5 (3.5-5.0) g/dL Current Medications Generic Name Dose Route Start Last Admin Trade Name Freq PRN Reason Stop Dose Admin Acetaminophen 650 mg 03/16/22 22:38 03/16/22 22:43 Acetaminophen Tab 325 Mg Tab PO 650 mg Q4HR PRN Administration Fever and/ or Pain Amlodipine Besylate 5 mg 03/17/22 09:00 03/17/22 09:07 Amlodipine 5 Mg Tab PO 5 mg DAILY ALEXSANDER Administration Heparin Sodium (Porcine) 5,000 unit 03/17/22 00:00 03/17/22 09:07 Heparin Sodium,Porcine/Pf 5,000 Unit/0.5 Ml Syringe SQ 5,000 unit Q8HR ALEXSANDER Administration Ceftriaxone Sodium 2 gm/ 50 mls @ 100 mls/hr 03/17/22 21:00 Sodium Chloride IVPB Q24H ALEXSANDER Protocol Sodium Chloride 1,000 mls @ 75 mls/hr 03/17/22 12:15 03/17/22 12:21 Saline 0.9% IV 75 mls/hr .[id number] ALEXSANDER Administration Insulin Aspart 0 unit 03/17/22 07:30 03/17/22 12:21 Insulin Aspart (Novolog) 100 Unit/Ml Vial SQ 2 unit ACHS ALEXSANDER Administration Protocol Levetiracetam 500 mg 03/16/22 22:00 03/17/22 09:07 Levetiracetam 500 Mg Tab PO 500 mg TID ALEXSANDER Administration Naloxone HCl 0.2 mg 03/16/22 19:31 Naloxone 0.4 Mg/Ml 1 Ml Vial IV Q2M PRN Opioid Reversal Patient's Own ( 15 units 03/17/22 09:00 03/17/22 09:08 Insulin Glargine/ SQ Not Given Lixisenatide [ DAILY ALEXSANDER Soliqua 100 Unit-33 Mcg/Ml Pen] 3 Ml In Nystatin 1 applic 03/16/22 21:00 03/17/22 09:07 Nystatin 100,000unit/Gm Cream 30 Gm Tube TOPICAL 1 applic BID ALEXSANDER Administration Protocol Pantoprazole Sodium 40 mg 03/17/22 09:00 03/17/22 09:07 Pantoprazole 40 Mg Tablet PO 40 mg DAILY ALEXSANDER Administration Quetiapine Fumarate 25 mg 03/17/22 09:00 03/17/22 12:21 Quetiapine 25 Mg Tab PO 25 mg BID@0900,1200 ALEXSANDER Administration Quetiapine Fumarate 100 mg 03/16/22 21:00 03/16/22 20:10 Quetiapine 100 Mg Tab PO 100 mg HS ALEXSANDER Administration Intake and Output 03/16/22 03/17/22 03/17/22 22:59 06:59 14:59 Intake Total 180 Output Total 200 Balance -200 180 Intake: Oral 180 Output: Urine 200 Other: Voiding Method External Catheter External Catheter # Voids 1 Weight 77.111 kg 03/17/22 08:35 03/17/22 08:35 Assessment and Plan Assessment: Mild troponin elevated secondary to renal insufficiency and current urinary tract infection. Abnormal EKG secondary to Chronic T wave abnormalities no change from prior EKG Plan: Will obtain a 2-D echocardiogram and review. Continue with all other current cardiac medications. Patient is not anticoagulated due to history of brain hemorrhage Continue with telemetry monitoring Further recommendations based on clinical course The above impression and plan of care have been discussed and directed by the signing physician. Theresa Ramachandran, nurse practitioner, acting as scribe for signing physician.
[2022-03-17 13:14] VITALS: BMI 28.3
[2022-03-17 16:41] LABS: Glucose,Whole Blood 185 mg/dL (70-110)
--- NOTE | 2022-03-17 16:51 | CT ---
EXAMINATION TYPE: CT chest wo con DATE OF EXAM: 03/17/2022 COMPARISON: None HISTORY: Community aqcquired pneumonia CT DLP: 689.3 mGycm Automated exposure control for dose reduction was used. Images obtained from the thoracic inlet through the diaphragm with no contrast. There is no mediastinal adenopathy. Thoracic aorta is atheromatous. No aneurysm. There are no hilar m asses. There is coronary artery calcification. Thoracic aorta measures up to 3.2 cm. The heart size is normal. No pericardial effusion. There is some mild pleural thickening and atelecta sis right posterior lung base. The other lung aly are clear. Thoracic vertebra show normal alignment. There is mild anterior wedging of T11 vertebra 20% that appe ars old. Sternum is intact. No evidence of rib fracture. There is left axillary pacemaker noted. There is deformity of the shoulders with old impacted humeral neck fractures. IMPRESSION: Mild pleural thickening and subsegmental atelectasis at the right posterior lung base. No suspicious pulmonary mass. Atherosclerotic vascular disease.
[2022-03-17 20:01] LABS: Glucose,Whole Blood 195 mg/dL (70-110)
[2022-03-17] MEDS: QUEtiapine 100 MG TAB PO SCH (20:52)
[2022-03-17] MEDS ORDERED: ONDANSETRON 4 MG/2 ML VIAL IVP PRN (22:43)
[2022-03-18] MEDS: SODIUM CHLORIDE 0.9% 1,000 ML IV SCH (05:02)
[2022-03-18 06:10] LABS: Glucose,Whole Blood 197 mg/dL (70-110)
[2022-03-18] MEDS: INSULIN ASPART (NovoLOG) 100 UNIT/ML VIAL SQ SCH ×4 (06:38→20:30)
[2022-03-18 08:24] LABS: Albumin 3.4 g/dL (3.5-5.0); Calcium 8.4 mg/dL (8.4-10.2); Potassium 4.1 mmol/L (3.5-5.1); Total Bilirubin 0.4 mg/dL (0.2-1.3); Total Protein 5.5 g/dL (6.3-8.2)
[2022-03-18 08:44] LABS: Basophils % (A) 1 %; Eosinophils # (A) 0.1 k/uL (0-0.7); Eosinophils % (A) 1 %; HCT 44.2 % (34.0-46.0); HGB 13.9 gm/dL (11.4-16.0); Lymphocytes % (A) 13 %; MCH 28.4 pg (25.0-35.0); MCHC 31.4 g/dL (31.0-37.0); MCV 90.4 fL (80.0-100.0); Mean Platelet Volume 8.1; Monocytes # (A) 0.5 k/uL (0-1.0); Monocytes % (A) 7 %; Neutrophils # (A) 5.7 k/uL (1.3-7.7); Neutrophils % (A) 77 %; Platelet Count 164 k/uL (150-450); RBC 4.89 m/uL (3.80-5.40); RDW 13.3 % (11.5-15.5); WBC 7.5 k/uL (3.8-10.6)
[2022-03-18] MEDS: NYSTATIN 100,000UNIT/GM CREAM 30 GM TUBE TOPICAL SCH ×2 (09:09→20:30)
[2022-03-18] MEDS: HEPARIN SODIUM,PORCINE/PF 5,000 UNIT/0.5 ML SYRINGE SQ SCH ×2 (09:09→17:02)
[2022-03-18] MEDS: ACETAMINOPHEN TAB 325 MG TAB PO PRN (09:10)
[2022-03-18] MEDS: amLODIPine 5 MG TAB PO SCH (09:10)
[2022-03-18] MEDS: PANTOPRAZOLE 40 MG TABLET PO SCH (09:11)
[2022-03-18] MEDS: PATIENT'S OWN (Insulin Glargine/Lixisenatide [Soliqua 100 Unit-33 Mcg/Ml Pen] 3 ML In SQ SCH (09:11)
[2022-03-18] MEDS: QUEtiapine 25 MG TAB PO SCH ×2 (09:11→12:28)
[2022-03-18] MEDS: levETIRAcetam 500 MG TAB PO SCH ×3 (09:11→20:30)
[2022-03-18 11:35] LABS: Glucose,Whole Blood 210 mg/dL (70-110)
[2022-03-18] MEDS ORDERED: amLODIPine 5 MG TAB PO STA (13:26)
--- NOTE | 2022-03-18 13:26 | P.PN ---
Subjective Progress Note Date: 03/18/22 Patient seen resting comfortably in bed in no signs of acute distress. She denies chest pain or pressure. She denies increased shortness of breath. Patient's echocardiogram is pending. Her CT of the chest showed mild pleural thickening and sub-segmental atelectasis at the right posterior lung base. No suspicious pulmonary mass. Atherosclerotic vascular disease. Blood pressure is elevated. Creatinine is elevated at 1.4. Heart rate is in the 60s. we will increase Norvasc to 10 mg daily and start hydralazine 50 mg every 8 hours Objective - Vital Signs Vital signs: Vital Signs Temp 98.2 F 03/18/22 08:00 Pulse 64 03/18/22 12:00 Resp 16 03/18/22 12:00 BP 146/67 03/18/22 12:00 Pulse Ox 95 03/18/22 12:00 FiO2 Intake & Output 03/17/22 03/18/22 03/18/22 18:59 06:59 18:59 Intake Total 540 180 Output Total 600 600 Balance -60 -600 180 Weight 77.111 kg Intake: Oral 540 180 Output: Urine 600 600 Other: Voiding Method External Catheter External Catheter External Catheter - Exam PHYSICAL EXAM: VITAL SIGNS: Reviewed. GENERAL: Well-developed in no acute distress. HEENT: Head is normocephalic. Pupils are equal, round. Sclerae anicteric. Mucous membranes of the mouth are moist. NECK: Supple. No JVD or thyromegaly RESPIRATORY: Respirations even and unlabored. Lungs diminished to auscultation bilaterally. CARDIO: Regular rate and rhythm. S1 and S2 heard. No murmur or gallops. EXTREMITIES: Normal range of motion. No clubbing or cyanosis. Peripheral pulses intact. Negative for bilateral lower extremity edema NEURO: Orientated to person, time, mood is appropriate - Labs CBC & Chem 7: 03/18/22 07:05 03/18/22 07:05 Labs: Abnormal Lab Results - Last 24 Hours (Table) 03/17/22 03/17/22 03/18/22 Range/Units 16:40 20:00 06:07 Creatinine (0.52-1.04) mg/dL Glucose (74-99) mg/dL POC Glucose (mg/dL) 185 H 195 H 197 H (70-110) mg/dL Total Protein (6.3-8.2) g/dL Albumin (3.5-5.0) g/dL 03/18/22 03/18/22 Range/Units 07:05 11:33 Creatinine 1.41 H (0.52-1.04) mg/dL Glucose 209 H (74-99) mg/dL POC Glucose (mg/dL) 210 H (70-110) mg/dL Total Protein 5.5 L (6.3-8.2) g/dL Albumin 3.4 L (3.5-5.0) g/dL Microbiology - Last 24 Hours (Table) 03/16/22 17:11 Urine Culture - Final Urine,Clean Catch 03/16/22 17:11 Blood Culture - Preliminary Blood No Growth after 24 hours 03/16/22 17:11 Blood Culture - Preliminary Blood No Growth after 24 hours Assessment and Plan Assessment: Mild troponin elevated secondary to renal insufficiency and current urinary tract infection. Abnormal EKG secondary to Chronic T wave abnormalities no change from prior EKG Plan: Will obtain a 2-D echocardiogram and review. Increase Norvasc to 10 mg daily Start hydralazine 50 mg every 8 hours Continue with all other current cardiac medications. Patient is not anticoagulated due to history of brain hemorrhage Continue with telemetry monitoring Further recommendations based on clinical course The above impression and plan of care have been discussed and directed by the signing physician. Theresa Ramachandran, nurse practitioner, acting as scribe for signing physician.
--- NOTE | 2022-03-18 14:42 | P.CNPUL ---
History of Present Illness Consult date: 03/17/22 Reason for consult: dyspnea, cough, COPD Chief complaint: Shortness of breath History of present illness: Patient is a 76-year-old female with multiple complex past medical history presented into emergency department using progressive weakness tiredness and fatigue, patient brought in to the hospital for worsening complaint complex. Patient underwent tooth extraction one day prior to coming to the hospital on specific questioning she has off-and-on shortness of breath denies any chest pain denies any nausea vomiting diarrhea denies any bowel or bladder dysfunction and denies any loss of consciousness or hemiparesis however. Patient has prior history of the coronary artery disease with multiple stent placement status post pacemaker seizure disorder, chronic atrial fibrillation and asthma severe diabetes hypertension. She also had a craniotomy related to intracranial hematoma with fall and possible mass affect of intracranial hemorrhage. Significant labs reviewed, white cell count is 7, hemoglobin and hematocrit 16/51, sodium is 142, potassium 4.7, BUN/creatinine is up 27/1.7 glucoses 153 and troponin up 0.038, urine appeared infected cloudy with multiple PVCs RBCs and positive for leukocyte esterase trace and bacteria. Influenza A and B as well as covid-19 with an RSV negative. Blood cultures have been negative, urine contaminated with the cutaneous and genital bacteria. Patient underwent a chest x-ray which is unremarkable, however computed tomography scan of the chest without contrast revealed presence of atelectasis and pleural thickening no apparent pleural mass. Late entry note Review of Systems All systems: negative Past Medical History Past Medical History: Atrial Fibrillation, Asthma, Coronary Artery Disease (CAD), Cancer, Heart Failure, CVA/TIA, Diabetes Mellitus, Eye Disorder, Hypertension, Osteoarthritis (OA), Renal Disease, Seizure Disorder Additional Past Medical History / Comment(s): Brain mass/fall with intracranial bleed/hematome-surgery at [facility], seizure after brain surgery, paroxysmal Afib, DM type II, neuropathy bilateral feet, orthostatic hypotension, SSS with pacemaker, L1 compression fx, CKD stage III, blind in L eye, UTIs, lower GI bleed, gastritis, gastric erosion, CDiff colitis, skin cancer with removals, past L arm fracture, past R arm fracture x2. History of Any Multi-Drug Resistant Organisms: None Reported, MRSA Date of last positivie culture/infection: 01/26/19 MDRO Source:: URINE Past Surgical History: Cholecystectomy, Heart Catheterization, Heart Catheterization With Stent, Hysterectomy, Pacemaker Additional Past Surgical History / Comment(s): Evacuation of intracranial hematoma and ressection of hemorrhagic mass, pacemaker 2016, PCI with stent 06/06/18, EGD/colonoscopy, R eye corneal implant/cataract removal, EGD 06/2018, colonoscopy, skin cancer removal. Past Anesthesia/Blood Transfusion Reactions: No Reported Reaction Additional Past Anesthesia/Blood Transfusion Reaction / Comment(s): . Date of Last Stent Placement:: 06/06/18 Type of Cardiac Device: Permanent Pacemaker Device Placement Date:: 04/2016 Past Psychological History: Anxiety, Depression Smoking Status: Never smoker Past Alcohol Use History: None Reported Past Drug Use History: None Reported - Past Family History Mother Family Medical History: Cancer, COPD, Hypertension Additional Family Medical History / Comment(s): Mother had bone cancer. Father Family Medical History: Cancer, Hypertension Additional Family Medical History / Comment(s): Father had skin cancer. Medications and Allergies Home Medications Medication Instructions Recorded Confirmed Type levETIRAcetam [Keppra] 500 mg PO TID 07/21/18 03/16/22 History QUEtiapine [SEROquel] 100 mg PO HS 30 Days #30 tab 04/13/19 03/16/22 Rx Pantoprazole [Protonix] 40 mg PO DAILY 12/19/19 03/16/22 History amLODIPine [Norvasc] 5 mg PO DAILY 90 Days #90 tab 12/22/19 03/16/22 Rx QUEtiapine [SEROquel] 25 mg PO BID 09/17/20 03/16/22 History Insulin Glargine/Lixisenatide 15 units SQ DAILY 10/12/21 03/16/22 History [Soliqua 100 Unit-33 Mcg/ml Pen] Nystatin 100,000Unit/gm Cream 1 applic TOPICAL BID 03/16/22 03/16/22 History [Mycostatin Cream] Allergies Allergy/AdvReac Type Severity Reaction Status Date / Time Latex, Natural Rubber Allergy Itching Verified 03/16/22 19:23 sulfamethoxazole Allergy Rash/Hives Verified 03/16/22 19:23 [From Bactrim] trimethoprim [From Bactrim] Allergy Rash/Hives Verified 03/16/22 19:23 Physical Exam Vitals: Vital Signs Temp Pulse Pulse Resp BP BP Pulse Ox 03/17/22 12:00 65 16 176/72 92 L 03/17/22 08:00 67 16 149/69 94 L 03/17/22 04:00 97.7 F 74 18 152/79 93 L 03/17/22 02:00 65 18 03/17/22 00:00 97.9 F 65 18 137/78 93 L 03/16/22 21:42 97.4 F L 77 18 181/75 94 L 03/16/22 20:19 97.6 F 03/16/22 20:10 81 18 145/65 95 03/16/22 19:12 77 17 161/69 95 03/16/22 16:27 97.0 F L 60 18 117/64 96 Intake and Output 03/16/22 03/17/22 03/17/22 22:59 06:59 14:59 Intake Total 180 Output Total 200 Balance -200 180 Intake: Oral 180 Output: Urine 200 Other: Voiding Method External Catheter External Catheter # Voids 1 Weight 77.111 kg 77.111 kg - Constitutional General appearance: average body habitus, cooperative, disheveled, mild distress - EENT Eyes: EOMI, PERRLA ENT: normal oropharynx Ears: bilateral: normal - Neck Neck: normal ROM Carotids: bilateral: upstroke normal Thyroid: negative: normal size - Respiratory Respiratory: bilateral: CTA - Cardiovascular Rhythm: regular Heart sounds: normal: S1, S2 - Gastrointestinal General gastrointestinal: normal bowel sounds, soft - Integumentary Integumentary: normal turgor - Neurologic Neurologic: CNII-XII intact, focal deficits - Musculoskeletal Musculoskeletal: gait normal, generalized weakness, strength equal bilaterally - Psychiatric Psychiatric: A&O x's 3, appropriate affect, intact judgment & insight Results - Laboratory Findings CBC and BMP: 03/18/22 07:05 03/18/22 07:05 PT/INR, D-dimer PT 10.5 sec (9.0-12.0) 03/16/22 17:11 INR 1.0 (<1.2) 03/16/22 17:11 Abnormal lab findings: Abnormal Labs 03/16/22 03/16/22 03/16/22 17:11 17:11 17:11 RBC 5.65 H Hgb 16.2 H Hct 51.1 H MCHC Potassium BUN 27 H Creatinine 1.71 H Glucose 153 H POC Glucose (mg/dL) Plasma Lactic Acid Hema Calcium AST 47 H Troponin I Urine Appearance Cloudy H Ur Specific [place] 1.038 H Urine Protein 1+ H Urine Glucose (UA) Trace H Urine Ketones 1+ H Urine Bilirubin 1+ H Ur Leukocyte Esterase Large H Urine RBC 16 H Urine WBC 55 H Ur Squamous Epith Cells 5 H Urine Bacteria Rare H Hyaline Casts 7 H Urine Mucus Few H 03/16/22 03/16/22 03/16/22 17:11 17:11 17:24 RBC Hgb Hct MCHC Potassium BUN Creatinine Glucose POC Glucose (mg/dL) 146 H Plasma Lactic Acid Hema 2.6 H* Calcium AST Troponin I 0.040 H* Urine Appearance Ur Specific [place] Urine Protein Urine Glucose (UA) Urine Ketones Urine Bilirubin Ur Leukocyte Esterase Urine RBC Urine WBC Ur Squamous Epith Cells Urine Bacteria Hyaline Casts Urine Mucus 03/16/22 03/16/22 03/17/22 22:08 23:16 03:44 RBC Hgb Hct MCHC Potassium BUN Creatinine Glucose POC Glucose (mg/dL) 180 H 142 H Plasma Lactic Acid Hema Calcium AST Troponin I 0.038 H* Urine Appearance Ur Specific [place] Urine Protein Urine Glucose (UA) Urine Ketones Urine Bilirubin Ur Leukocyte Esterase Urine RBC Urine WBC Ur Squamous Epith Cells Urine Bacteria Hyaline Casts Urine Mucus 03/17/22 03/17/22 03/17/22 05:51 08:35 08:35 RBC Hgb Hct MCHC 30.6 L Potassium 3.4 L BUN 21 H Creatinine 1.44 H Glucose 188 H POC Glucose (mg/dL) 180 H Plasma Lactic Acid Hema Calcium 8.3 L AST Troponin I Urine Appearance Ur Specific [place] Urine Protein Urine Glucose (UA) Urine Ketones Urine Bilirubin Ur Leukocyte Esterase Urine RBC Urine WBC Ur Squamous Epith Cells Urine Bacteria Hyaline Casts Urine Mucus 03/17/22 12:04 RBC Hgb Hct MCHC Potassium BUN Creatinine Glucose POC Glucose (mg/dL) 189 H Plasma Lactic Acid Hema Calcium AST Troponin I Urine Appearance Ur Specific [place] Urine Protein Urine Glucose (UA) Urine Ketones Urine Bilirubin Ur Leukocyte Esterase Urine RBC Urine WBC Ur Squamous Epith Cells Urine Bacteria Hyaline Casts Urine Mucus - Diagnostic Findings Chest x-ray: report reviewed, image reviewed CT scan - chest: report reviewed, image reviewed (Finding as noted above) Assessment and Plan Assessment: Basal atelectasis and pleural thickening likely chronic we'll continue to monitor observe patient recommended to have deep breathing exercises incentive spirometry Transient shortness of breath clinically improved Urinary tract infection, on broad-spectrum antibiotics Progressive weakness and tiredness related to above, improving Chronic kidney disease stage III Elevated troponin cardiovascular services following awaiting echocardiogram History of intracranial hemorrhage, seizure disorder, coronary artery disease with stent placement Plan: Continue to monitor observe on room air, recommendation as above Time with Patient: Greater than 30
--- NOTE | 2022-03-18 14:45 | P.PN ---
Subjective Progress Note Date: 03/18/22 Principal diagnosis: Basal atelectasis and pleural thickening likely chronic we'll continue to monitor observe patient recommended to have deep breathing exercises incentive spirometry Transient shortness of breath clinically improved Urinary tract infection, on broad-spectrum antibiotics Progressive weakness and tiredness related to above, improving Chronic kidney disease stage III Elevated troponin cardiovascular services following awaiting echocardiogram History of intracranial hemorrhage, seizure disorder, coronary artery disease with stent placement 03/18/2022, patient seen eval examined during the rounds labs reviewed medications reviewed care plan discussed, respiratory status remains stable patient remains on room air denies any chest pain cough or shortness of breath, patient remains on IV Rocephin for urinary tract infection cultures including blood and urine has been negative, patient has some nonspecific findings on the computed tomography scan will monitor observe however patient has symptoms of developing sleep apnea and sleep disorder breathing to be evaluated outpatient basis for possible sleep study. Patient is a 76-year-old female with multiple complex past medical history presented into emergency department using progressive weakness tiredness and fatigue, patient brought in to the hospital for worsening complaint complex. Patient underwent tooth extraction one day prior to coming to the hospital on specific questioning she has off-and-on shortness of breath denies any chest pain denies any nausea vomiting diarrhea denies any bowel or bladder dysfunction and denies any loss of consciousness or hemiparesis however. Patient has prior history of the coronary artery disease with multiple stent placement status post pacemaker seizure disorder, chronic atrial fibrillation and asthma severe diabetes hypertension. She also had a craniotomy related to intracranial hematoma with fall and possible mass affect of intracranial hemorrhage. Significant labs reviewed, white cell count is 7, hemoglobin and hematocrit 16/51, sodium is 142, potassium 4.7, BUN/creatinine is up 27/1.7 glucoses 153 and troponin up 0.038, urine appeared infected cloudy with multiple PVCs RBCs and positive for leukocyte esterase trace and bacteria. Influenza A and B as well as covid-19 with an RSV negative. Blood cultures have been negative, urine contaminated with the cutaneous and genital bacteria. Patient underwent a chest x-ray which is unremarkable, however computed tomography scan of the chest without contrast revealed presence of atelectasis and pleural thickening no apparent pleural mass. Late entry note Objective - Vital Signs Vital signs: Vital Signs Temp 98.2 F 03/18/22 08:00 Pulse 64 03/18/22 12:00 Resp 16 03/18/22 12:00 BP 146/67 03/18/22 12:00 Pulse Ox 95 03/18/22 12:00 FiO2 Intake & Output 03/17/22 03/18/22 03/18/22 18:59 06:59 18:59 Intake Total 540 360 Output Total 600 600 Balance -60 -600 360 Weight 77.111 kg Intake: Oral 540 360 Output: Urine 600 600 Other: Voiding Method External Catheter External Catheter External Catheter - Exam - Constitutional General appearance: average body habitus, cooperative, disheveled, mild distress - EENT Eyes: EOMI, PERRLA ENT: normal oropharynx Ears: bilateral: normal - Neck Neck: normal ROM Carotids: bilateral: upstroke normal Thyroid: negative: normal size - Respiratory Respiratory: bilateral: CTA - Cardiovascular Rhythm: regular Heart sounds: normal: S1, S2 - Gastrointestinal General gastrointestinal: normal bowel sounds, soft - Integumentary Integumentary: normal turgor - Neurologic Neurologic: CNII-XII intact, focal deficits - Musculoskeletal Musculoskeletal: gait normal, generalized weakness, strength equal bilaterally - Psychiatric Psychiatric: A&O x's 3, appropriate affect, intact judgment & insight - Labs CBC & Chem 7: 03/18/22 07:05 03/18/22 07:05 Labs: Abnormal Lab Results - Last 24 Hours (Table) 03/17/22 03/17/22 03/18/22 Range/Units 16:40 20:00 06:07 Creatinine (0.52-1.04) mg/dL Glucose (74-99) mg/dL POC Glucose (mg/dL) 185 H 195 H 197 H (70-110) mg/dL Total Protein (6.3-8.2) g/dL Albumin (3.5-5.0) g/dL 03/18/22 03/18/22 Range/Units 07:05 11:33 Creatinine 1.41 H (0.52-1.04) mg/dL Glucose 209 H (74-99) mg/dL POC Glucose (mg/dL) 210 H (70-110) mg/dL Total Protein 5.5 L (6.3-8.2) g/dL Albumin 3.4 L (3.5-5.0) g/dL Microbiology - Last 24 Hours (Table) 03/16/22 17:11 Urine Culture - Final Urine,Clean Catch 03/16/22 17:11 Blood Culture - Preliminary Blood No Growth after 24 hours 03/16/22 17:11 Blood Culture - Preliminary Blood No Growth after 24 hours Assessment and Plan Assessment: Basal atelectasis and pleural thickening likely chronic we'll continue to monitor observe patient recommended to have deep breathing exercises incentive spirometry Transient shortness of breath clinically improved Urinary tract infection, on broad-spectrum antibiotics Progressive weakness and tiredness related to above, improving Morbid obesity with likely sleep disorder breathing and sleep apnea, to be evaluated further outpatient setting Chronic kidney disease stage III Elevated troponin cardiovascular services following awaiting echocardiogram History of intracranial hemorrhage, seizure disorder, coronary artery disease w ith stent placement Plan: Continue to monitor observe on room air, recommendation as above Time with Patient: Greater than 30
--- NOTE | 2022-03-18 16:49 | CT ---
EXAMINATION TYPE: CT brain wo con DATE OF EXAM: 03/18/2022 COMPARISON: 09/16/2019 HISTORY: ams CT DLP: 1055.4 mGycm Automated exposure control for dose reduction was used. Images of the brain obtained with no contrast. There is large area of hypodensity involving the right posterior temporal parietal and occipital lobe that measures 7 cm with fluid density. There is no mass effect. No midline shift. No sign of intracr anial hemorrhage. There is right posterior parietal occipital craniotomy defect. There is mild hypodensity in the left posterior frontal lobe white matter. Unchanged. IMPRESSION: Previous surgery. Large area of encephalomalacia in the right cerebral hemisphere without change comp ared to old exam. No acute intracranial abnormality. There is likely some microvascular ischemia.
[2022-03-18 16:51] LABS: Glucose,Whole Blood 210 mg/dL (70-110)
[2022-03-18] MEDS ORDERED: HYDROcodone/APAP 5-325MG 1 EACH TAB PO PRN (16:56)
[2022-03-18] MEDS: hydrALAZINE HCL 50 MG TAB PO SCH ×2 (17:03→20:30)
--- NOTE | 2022-03-18 18:19 | US ---
EXAMINATION TYPE: US carotid duplex BILAT DATE OF EXAM: 03/18/2022 COMPARISON: NONE CLINICAL HISTORY: tia. TECHNIQUE: Carotid duplex ultrasound examination. Indirect Doppler criteria was utilized. FINDINGS: EXAM MEASUREMENTS: RIGHT: Peak Systolic Velocity (PSV) cm/sec ----- Right CCA: 60.3 ----- Right ICA: 83.1 ----- Right ECA: 60.7 ICA/CCA ratio: 1.4 RIGHT: End Diastole cm/sec ----- Right CCA: 9.8 ----- Right ICA: 13.8 ----- Right ECA: 0.0 LEFT: Peak Systolic Velocity (PSV) cm/sec ----- Left CCA: 62.5 ----- Left ICA: 87.5 ----- Left ECA: 52.3 ICA/CCA ratio: 1.4 LEFT: End Diastole cm/sec ----- Left CCA: 7.5 ----- Left ICA: 12.8 ----- Left ECA: 0.0 VERTEBRALS (direction of flow): Right Vertebral: Antegrade Left Vertebral: Antegrade Rhythm: Normal ASE CERTIFIED TECHNICIAN NOTES: Mild atherosclerotic changes with no significant velocity increases. IMPRESSION: There is antegrade flow in the vertebral arteries. The images and measurements suggest less than 20% stenosis in both internal carotid arteries. Criteria for Assigning % of Stenosis / Diameter reduction (Estimation based on the indirect measurements of the internal carotid artery velocities (ICA PSV). 1. Normal (no stenosis)=ICA PSV < 125 cm/s: ratio < 2.0: ICA EDV<40 cm/s. 2. Less than 50% stenosis=ICA PSV < 125 cm/s: ratio < 2.0: ICA EDV<40 cm/s. 3. 50 to 69% stenosis=ICA PSV of 125 to 230 cm/s: ration 2.0 ? 4.0: ICA EDV 40-100 cm/s. 4. Greater than 70% stenosis to near occlusion= ICA PSV > 230 cm/s: ratio > 4.0: ICA EDV > 100 cm/s. 5. Near occlusion= ICA PSV velocities may be low or undetectable: variable ratio and ICA EDV. 6. Total occlusion=unable to detect flow.
--- NOTE | 2022-03-18 18:24 | CT ---
EXAMINATION TYPE: CT cervical spine wo con DATE OF EXAM: 03/18/2022 COMPARISON: 01/11/2019 HISTORY: neck pain CT DLP: 373.8 mGycm Automated exposure control for dose reduction was used. Images obtained from the skull base to T1 vertebra with no contrast. There is mild straightening of the cervical spine. There is disc space narrowing and spurring anterio rly of the endplates involving C5-6 and C6-7 and C7-T1. The posterior elements are intact. There is m ild cervical hypertrophic facet arthropathy. No compression fracture. No subluxation. The skull base is intact. There is normal aeration of the mastoid sinuses. There is likely some spinal stenosis at C 5-6 and C6-7 due to uncovertebral spurring and disc bulging. IMPRESSION: Multilevel spondylotic changes. There is increased osteophyte formation in the lower cervical spine c ompared to old exam. There is likely some progression of the spinal stenosis compared to old exam. No fracture seen.
[2022-03-18 19:58] LABS: Glucose,Whole Blood 254 mg/dL (70-110)
[2022-03-18] MEDS: QUEtiapine 100 MG TAB PO SCH (20:30)
[2022-03-19] MEDS: HEPARIN SODIUM,PORCINE/PF 5,000 UNIT/0.5 ML SYRINGE SQ SCH ×3 (00:20→16:00)
--- NOTE | 2022-03-19 03:28 | PN ---
PROGRESS NOTE SUBJECTIVE: A 76-year-old white female came in with UTI, weakness, altered mental status. Neurologic workup is pending. CT of the chest is ordered for COPD. She is noncompliant with home oxygen at home. Continue to treat for urosepsis. Wait for Neurology recommendations. PHYSICAL EXAMINATION: CARDIOVASCULAR: S1, S2. LUNGS: Clear. GI: Soft. PSYCH: Pleasantly confused. HEMATOLOGY: Negative Homans. ASSESSMENT AND PLAN: Urosepsis, dehydration, prerenal azotemia, chronic obstructive pulmonary disease, dementia. Wait for neuro workup. Continue current workup. Continue with antibiotics and fluids. Prognosis guarded. MMODL / IJN: [id number] /
[2022-03-19] MEDS: SODIUM CHLORIDE 0.9% 1,000 ML IV SCH ×3 (04:49→22:08)
[2022-03-19 06:11] LABS: Glucose,Whole Blood 212 mg/dL (70-110)
[2022-03-19] MEDS: INSULIN ASPART (NovoLOG) 100 UNIT/ML VIAL SQ SCH ×4 (06:32→22:08)
[2022-03-19] MEDS: hydrALAZINE HCL 50 MG TAB PO SCH ×3 (08:58→22:08)
[2022-03-19] MEDS: NYSTATIN 100,000UNIT/GM CREAM 30 GM TUBE TOPICAL SCH ×2 (08:59→22:08)
[2022-03-19] MEDS: amLODIPine 10 MG TAB PO SCH (08:59)
[2022-03-19] MEDS: PANTOPRAZOLE 40 MG TABLET PO SCH (08:59)
[2022-03-19] MEDS: QUEtiapine 25 MG TAB PO SCH ×2 (08:59→12:25)
[2022-03-19] MEDS: levETIRAcetam 500 MG TAB PO SCH ×3 (08:59→22:08)
[2022-03-19] MEDS: PATIENT'S OWN (Insulin Glargine/Lixisenatide [Soliqua 100 Unit-33 Mcg/Ml Pen] 3 ML In SQ SCH (11:07)
--- NOTE | 2022-03-19 12:04 | P.CNNES ---
History of Present Illness Consult date: 03/19/22 Requesting physician: Vikram Zamarripa Reason for Consult: ams/tia History of Present Illness: This is a 76-year-old woman who presented emergency department because of the worsening weakness over the last 1 month. Neurology is consulted for confusion/TIA. Some of the history is obtained from medical record as well as the patient nurse. According to the ED note is seems the patient is been having generalized weakness per family members and the patient does not have any confusion. She has chronic neck pain. Seems the patient had a tooth pulled the day prior to present in the hospital. According to the patient she stated that she's doing well and that when she presented she has some posterior midline neck pain but stated to her today it's resolved. She denies of any focal weakness or numbness or any difficulty getting her words out or swallowing. According to the patient nurse patient does not have any further confusion. Seems to the patient has history of reported stroke, seizure in the past. She is on Keppra 500 mg 1 tablet 3 times a day for her seizures. Also seems the patient has history of atrial fibrillation, heart failure, diabetes hypertension. Patient is not on any anticoagulation or antiplatelets. For the patient history of stroke is seems the patient has history of brain mass with intracranial bleed hematoma and it seems that she had surgery in the [facility]. She had a seizure after brain surgery. Seems the patient has history of lower GI bleed, gastritis or erosion. Some of the workup during his hospital visit consisted of: This is afebrile in no leukocytosis. Patient sugars has been in the range of low 200s to mid 200s It appears possibly the patient has acute urinary tract infection CT of the head is reported as previous surgery. Large area of encephalomalacia in the right cerebral hemisphere without change compared to old exam. No acute intracranial abnormality. There is likely is some microvascular ischemia. I personally reviewed the CT of the head and I agree the patient has old encephalomalacia over predominantly the right parietal extending into the occipital region with old surgical. Cardiac duplex was reported as there is antegrade flow in the vertebral arteries. Images and measurements suggest less than 20% stenosis in both international trade compliance manager al carotid arteries. CT cervical spine was reported as multilevel spondylitic changes. There is inc reased osteophyte formation in the lower cervical spine compared to old exam. There is likely some progression of the spine stenosis compared to old exam. No fracture seen. Review of Systems Review of system: The 12 point system was reviewed and apparent positive and negative per HPI. Past Medical History Past Medical History: Atrial Fibrillation, Asthma, Coronary Artery Disease (CAD), Cancer, Heart Failure, CVA/TIA, Diabetes Mellitus, Eye Disorder, Hypertension, Osteoarthritis (OA), Renal Disease, Seizure Disorder Additional Past Medical History / Comment(s): Brain mass/fall with intracranial bleed/hematome-surgery at [facility], seizure after brain surgery, paroxysmal Afib, DM type II, neuropathy bilateral feet, orthostatic hypotension, SSS with pacemaker, L1 compression fx, CKD stage III, blind in L eye, UTIs, lower GI bleed, gastritis, gastric erosion, CDiff colitis, skin cancer with removals, past L arm fracture, past R arm fracture x2. History of Any Multi-Drug Resistant Organisms: None Reported, MRSA Date of last positivie culture/infection: 01/26/19 MDRO Source:: URINE Past Surgical History: Cholecystectomy, Heart Catheterization, Heart Catheteri zation With Stent, Hysterectomy, Pacemaker Additional Past Surgical History / Comment(s): Evacuation of intracranial hematoma and ressection of hemorrhagic mass, pacemaker 2016, PCI with stent 06/06/18, EGD/colonoscopy, R eye corneal implant/cataract removal, EGD 06/2018, colonoscopy, skin cancer removal. Past Anesthesia/Blood Transfusion Reactions: No Reported Reaction Additional Past Anesthesia/Blood Transfusion Reaction / Comment(s): . Date of Last Stent Placement:: 06/06/18 Type of Cardiac Device: Permanent Pacemaker Device Placement Date:: 04/2016 Past Psychological History: Anxiety, Depression Smoking Status: Never smoker Past Alcohol Use History: None Reported Past Drug Use History: None Reported - Past Family History Mother Family Medical History: Cancer, COPD, Hypertension Additional Family Medical History / Comment(s): Mother had bone cancer. Father Family Medical History: Cancer, Hypertension Additional Family Medical History / Comment(s): Father had skin cancer. Medications and Allergies Home Medications Medication Instructions Recorded Confirmed Type levETIRAcetam [Keppra] 500 mg PO TID 07/21/18 03/16/22 History QUEtiapine [SEROquel] 100 mg PO HS 30 Days #30 tab 04/13/19 03/16/22 Rx Pantoprazole [Protonix] 40 mg PO DAILY 12/19/19 03/16/22 History amLODIPine [Norvasc] 5 mg PO DAILY 90 Days #90 tab 12/22/19 03/16/22 Rx QUEtiapine [SEROquel] 25 mg PO BID 09/17/20 03/16/22 History Insulin Glargine/Lixisenatide 15 units SQ DAILY 10/12/21 03/16/22 History [Soliqua 100 Unit-33 Mcg/ml Pen] Nystatin 100,000Unit/gm Cream 1 applic TOPICAL BID 03/16/22 03/16/22 History [Mycostatin Cream] Allergies Allergy/AdvReac Type Severity Reaction Status Date / Time Latex, Natural Rubber Allergy Itching Verified 03/16/22 19:23 sulfamethoxazole Allergy Rash/Hives Verified 03/16/22 19:23 [From Bactrim] trimethoprim [From Bactrim] Allergy Rash/Hives Verified 03/16/22 19:23 Physical Examination - Vital Signs Vital Signs: Vital Signs Temp Pulse Pulse Resp BP BP Pulse Ox 03/19/22 08:55 98.3 F 67 18 132/72 92 L 03/19/22 04:00 69 19 126/75 93 L 03/19/22 00:00 92 18 137/70 95 03/18/22 20:00 98.5 F 62 19 155/74 94 L 03/18/22 16:00 61 16 191/71 93 L 03/18/22 12:00 64 16 146/67 95 Intake and Output 03/18/22 03/19/22 03/19/22 22:59 06:59 14:59 Intake Total 236 Output Total 950 Balance 236 -950 Intake: Oral 236 Output: Urine 950 Other: Voiding Method External Catheter External Catheter External Catheter Weight 89 kg GENERAL: The patient is lying in bed and is not in acute distress. CHEST: The heart rate is regular rate rhythm. No murmurs to auscultation. LUNG: Clear to auscultation bilaterally no wheezing noted throughout. Not labored breathing. ABDOMEN/GI: Bowel sounds present in all 4 quadrants. No tenderness to palpation throughout. NEUROLOGICAL: Higher mental function: The patient is awake, alert, oriented to self, place. She correctly stated the current year. stated the month is April. Mildly slow responding to questions. Patient is following commands. No aphasia and no neglect. Cranial nerves: The pupils are round, equal and reactive to light and accommodation. Visual aly are full to confrontation throughout. Extraocular movement is intact no nystagmus is noted. Facial sensation is normal to touch throughout. The facial strength is normal throughout. Hearing is normal bilaterally to hand rub. Tongue is midline and moved [id number] without any difficulty. No dysarthria is noted. Shoulder shrug is normal bilaterally. Motor: The strength is proximal uppers limited because of old chronic shoulder pain according to patient. But otherwise 5 over 5 throughout. Normal tone and bulk. Cerebellum: Normal finger to nose bilaterally. Sensation: Sensation is normal to touch throughout. Reflexes (right/left): + throughout. Plantars are mute bilaterally. Results - Laboratory Findings CBC and BMP: 03/18/22 07:05 03/18/22 07:05 Abnormal Lab Findings: Abnormal Labs 03/16/22 03/16/22 03/16/22 17:11 17:11 17:11 RBC 5.65 H Hgb 16.2 H Hct 51.1 H MCHC Potassium BUN 27 H Creatinine 1.71 H Glucose 153 H POC Glucose (mg/dL) Plasma Lactic Acid Hema Calcium AST 47 H Troponin I Total Protein Albumin Urine Appearance Cloudy H Ur Specific [place] 1.038 H Urine Protein 1+ H Urine Glucose (UA) Trace H Urine Ketones 1+ H Urine Bilirubin 1+ H Ur Leukocyte Esterase Large H Urine RBC 16 H Urine WBC 55 H Ur Squamous Epith Cells 5 H Urine Bacteria Rare H Hyaline Casts 7 H Urine Mucus Few H 03/16/22 03/16/22 03/16/22 17:11 17:11 17:24 RBC Hgb Hct MCHC Potassium BUN Creatinine Glucose POC Glucose (mg/dL) 146 H Plasma Lactic Acid Hema 2.6 H* Calcium AST Troponin I 0.040 H* Total Protein Albumin Urine Appearance Ur Specific [place] Urine Protein Urine Glucose (UA) Urine Ketones Urine Bilirubin Ur Leukocyte Esterase Urine RBC Urine WBC Ur Squamous Epith Cells Urine Bacteria Hyaline Casts Urine Mucus 03/16/22 03/16/22 03/17/22 22:08 23:16 03:44 RBC Hgb Hct MCHC Potassium BUN Creatinine Glucose POC Glucose (mg/dL) 180 H 142 H Plasma Lactic Acid Hema Calcium AST Troponin I 0.038 H* Total Protein Albumin Urine Appearance Ur Specific [place] Urine Protein Urine Glucose (UA) Urine Ketones Urine Bilirubin Ur Leukocyte Esterase Urine RBC Urine WBC Ur Squamous Epith Cells Urine Bacteria Hyaline Casts Urine Mucus 03/17/22 03/17/22 03/17/22 05:51 08:35 08:35 RBC Hgb Hct MCHC 30.6 L Potassium 3.4 L BUN 21 H Creatinine 1.44 H Glucose 188 H POC Glucose (mg/dL) 180 H Plasma Lactic Acid Hema Calcium 8.3 L AST Troponin I Total Protein Albumin Urine Appearance Ur Specific [place] Urine Protein Urine Glucose (UA) Urine Ketones Urine Bilirubin Ur Leukocyte Esterase Urine RBC Urine WBC Ur Squamous Epith Cells Urine Bacteria Hyaline Casts Urine Mucus 03/17/22 03/17/22 03/17/22 12:04 16:40 20:00 RBC Hgb Hct MCHC Potassium BUN Creatinine Glucose POC Glucose (mg/dL) 189 H 185 H 195 H Plasma Lactic Acid Hema Calcium AST Troponin I Total Protein Albumin Urine Appearance Ur Specific [place] Urine Protein Urine Glucose (UA) Urine Ketones Urine Bilirubin Ur Leukocyte Esterase Urine RBC Urine WBC Ur Squamous Epith Cells Urine Bacteria Hyaline Casts Urine Mucus 03/18/22 03/18/22 03/18/22 06:07 07:05 11:33 RBC Hgb Hct MCHC Potassium BUN Creatinine 1.41 H Glucose 209 H POC Glucose (mg/dL) 197 H 210 H Plasma Lactic Acid Hema Calcium AST Troponin I Total Protein 5.5 L Albumin 3.4 L Urine Appearance Ur Specific [place] Urine Protein Urine Glucose (UA) Urine Ketones Urine Bilirubin Ur Leukocyte Esterase Urine RBC Urine WBC Ur Squamous Epith Cells Urine Bacteria Hyaline Casts Urine Mucus 03/18/22 03/18/22 03/19/22 16:49 19:57 06:09 RBC Hgb Hct MCHC Potassium BUN Creatinine Glucose POC Glucose (mg/dL) 210 H 254 H 212 H Plasma Lactic Acid Hema Calcium AST Troponin I Total Protein Albumin Urine Appearance Ur Specific [place] Urine Protein Urine Glucose (UA) Urine Ketones Urine Bilirubin Ur Leukocyte Esterase Urine RBC Urine WBC Ur Squamous Epith Cells Urine Bacteria Hyaline Casts Urine Mucus Assessment and Plan Assessment: Transient confusion and appears due to Acute UTI. Confusion has resolved. Generalized weakness (reported by family members) Encephalomalacia over the right parietal/occipital due to History of intracranial bleed/?mass and has surgical resection at [facility] History of seizure Surgery after brain bleed and is on Keppra Diabetes mellitus seems her sugars currently in 200's History of paroxysmal atrial fibrillation not on anticoagulation History of coronary artery disease that is post stent History of lower GI bleeds as well as gastritis History of pacemaker Plan: I ordered TSH, vitamin B12, folate level. If Patient has any further confusion then we'll pursue with the routine EEG to rule out seizure. She is on her home dose of Keppra 500mg 1 tab tid. Regarding her chronic neck pain recommend follow-up with the orthopedic team as an outpatient for now she states she does not want any further workup or evaluation. PT and OT are consulted. Regarding Paroxysmal atrial fibrillation will defer management to primary team. It seem patient had history of intracranial bleed and GI bleed. Not sure if will benefit with antiplatelets but will defer final decision to primary team. Will Defer the rest of the medical measures with the primary team The plan is discussed with nurse. Thank you for the consultation. Time with Patient: Greater than 30
[2022-03-19 12:08] LABS: Glucose,Whole Blood 276 mg/dL (70-110)
--- NOTE | 2022-03-19 14:37 | P.PN ---
Subjective Progress Note Date: 03/19/22 History of present illness: This pleasant 76-year-old female with a known medical history of heart failure, proximal atrial fibrillation on him arm term anticoagulation secondary to brain hemorrhage, coronary artery disease status post prior PCI to the LAD in 2018, sick sinus syndrome status post pacemaker in 2017([email or web address]), congestive heart failure with a preserved EF, hypertension with orthostatic hypotension, hyperlipidemia, chronic kidney disease stage III, CVA, type 2 diabetes, seizure, brain mass/fall with intracranial bleeding. Patient follows with Dr. Hawk in the office. We have been asked to see the patient for elevated troponins. . Patient presented to the ER with increased weakness she was brought in by family. Patient's troponin was 0.04, 0.032, 0.038. Patient has a known history of chronic kidney disease. Upon admission creatinine was 1.71. On prior admission creatinine was 1.9. Patient is a paced with ST depression and marked T-wave abnormality on her EKG no change from prior. Patient had an echocardiogram in October 2021 which showed a normal LV systolic function. Upon admission patient was found to have a UTI and is being treated with IV antibiotics. Will obtain a repeat 2-D echocardiogram. Will continue with current cardiac medications. 03/19 Yesterday, patient had Norvasc increased to 10 mg daily and hydralazine added at 50 mg every 8 hours. Blood pressure is improved today at 132/72, heart rate in the 60s. No new lab work today. Carotid ultrasound reveals less than 20% stenosis of both internal carotid arteries. Echocardiogram report is pending Physical examination: Gen: This is a [ ] VS: reviewed HEENT: Head is atraumatic, normocephalic. Pupils equal, round. Sclerae is anicteric. NECK: Supple. No JVD. No lymphadenopathy. No thyromegaly. LUNGS: Clear to auscultation. No wheezes or rhonchi. No intercostal retractions. HEART: Regular rate and rhythm. No murmur. ABDOMEN: Soft. Bowel sounds are present. No masses. No tenderness. EXTREMITIES: No pedal edema. No calf tenderness. NEUROLOGICAL: Patient is awake, alert and oriented x3. Cranial nerves 2 through 12 are grossly intact. Assessment: Mild troponin elevation secondary to renal insufficiency, urinary tract infection Abnormal EKG secondary to chronic T-wave abnormalities, no change from prior EKG Plan: Patient was started on hydralazine 50 mg every 8 hours and Norvasc increased to 10 mg daily with improvement of blood pressure control Obtain 2-D echocardiogram and Doppler study to assess cardiac structure and function Patient is not on anticoagulation due to history of brain hemorrhage Further recommendations to follow based upon clinical course Nurse practitioner note has been reviewed, I agree with documented findings and plan of care. Patient was seen and examined. Objective - Vital Signs Vital signs: Vital Signs Temp 98.5 F 03/18/22 20:00 Pulse 69 03/19/22 04:00 Resp 19 03/19/22 04:00 BP 126/75 03/19/22 04:00 Pulse Ox 93 L 03/19/22 04:00 FiO2 Intake & Output 03/18/22 03/19/22 03/19/22 18:59 06:59 18:59 Intake Total 596 Output Total 950 Balance 596 -950 Weight 89 kg Intake: Oral 596 Output: Urine 950 Other: Voiding Method External Catheter External Catheter - Labs CBC & Chem 7: 03/18/22 07:05 03/18/22 07:05 Labs: Abnormal Lab Results - Last 24 Hours (Table) 03/18/22 03/18/22 03/18/22 Range/Units 11:33 16:49 19:57 POC Glucose (mg/dL) 210 H 210 H 254 H (70-110) mg/dL 03/19/22 Range/Units 06:09 POC Glucose (mg/dL) 212 H (70-110) mg/dL Microbiology - Last 24 Hours (Table) 03/16/22 17:11 Blood Culture - Preliminary Blood No Growth after 48 hours 03/16/22 17:11 Blood Culture - Preliminary Blood No Growth after 48 hours 03/16/22 17:11 Urine Culture - Final Urine,Clean Catch
[2022-03-19 16:58] LABS: Glucose,Whole Blood 212 mg/dL (70-110)
--- NOTE | 2022-03-19 18:09 | CA ---
Transthoracic Echo Report Name: Zehra Montes Age: 76 Gender: F : 1945 Exam Date: 03/17/2022 13:27 Exam Location: [facility] Ht (in): 65 Wt (lb): 170 Ordering Physician: Theresa Ramachandran Attending/Referring Phys: [employer] Lucy Adams RDCS Procedure CPT: Indications: positive trop Cardiac Hx: Technical Quality: Contrast 1: Total Dose (mL): Contrast 2: Total Dose (mL): MEASUREMENTS (Male / Female) Normal Values 2D ECHO LV Diastolic Diameter PLAX 4.0 cm 4.2 - 5.9 / 3.9 - 5.3 cm LV Systolic Diameter PLAX 3.2 cm IVS Diastolic Thickness 1.2 cm 0.6 - 1.0 / 0.6 - 0.9 cm LVPW Diastolic Thickness 1.8 cm 0.6 - 1.0 / 0.6 - 0.9 cm LV Relative Wall Thickness 0.8 RV Internal Dim ED PLAX 2.8 cm LA Systolic Diameter LX 3.8 cm 3.0 - 4.0 / 2.7 - 3.8 cm LA Volume 39.6 cm??? 18 - 58 / 22 - 52 cm??? M-MODE Aortic Root Diameter MM 2.7 cm LA Systolic Diameter MM 3.3 cm LA Ao Ratio MM 1.2 MV E Point Septal Separation 1.2 cm AV Cusp Separation MM 1.7 cm DOPPLER MV Area PHT 1.6 cm??? Mitral E Point Velocity 44.2 cm/s Mitral A Point Velocity 94.1 cm/s Mitral E to A Ratio 0.5 MV Deceleration Time 472.6 ms MV E' Velocity 4.3 cm/s Mitral E to MV E' Ratio 10.3 FINDINGS Left Ventricle Mildly increased septal wall thickness. Left ventricular ejection fraction is estimated at 55 %. Left ventricular cavity size normal. Right Ventricle Normal right ventricular size and function. Right ventricular systolic pressure within normal limits. Right Atrium Normal right atrial size. Left Atrium Normal left atrial size. Mitral Valve Mitral annular calcification. Mild mitral regurgitation. Aortic Valve Trileaflet aortic valve. Tricuspid Valve Structurally normal tricuspid valve. Mild tricuspid regurgitation. Pulmonic Valve Structurally normal pulmonic valve. Pericardium Normal pericardium. Aorta Normal size aortic root and proximal ascending aorta. CONCLUSIONS Normal LV systolic function ejection fraction 50-55% with mild mitral and tricuspid regurgitation Previewed by: Dr. Fredrick Kidd MD (Electronically Signed) Final Date: 19 March 2022 18:08
[2022-03-19 20:30] LABS: Glucose,Whole Blood 235 mg/dL (70-110)
[2022-03-20] MEDS: HEPARIN SODIUM,PORCINE/PF 5,000 UNIT/0.5 ML SYRINGE SQ SCH ×2 (00:07→09:07)
[2022-03-20] MEDS: QUEtiapine 100 MG TAB PO SCH (00:07)
--- NOTE | 2022-03-20 01:13 | PN ---
PROGRESS NOTE SUBJECTIVE: A 76-year-old white female, weakness, UTI, seizures, encephalomalacia, status post intracranial bleed. The patient is improved with her mental status. She will be sent home tomorrow may be possibly with some oral antibiotics, home oxygen, etc. Prognosis is guarded. OBJECTIVE: CARDIOVASCULAR: S1, S2. LUNGS: Clear. GI: Soft. PSYCH: Alert and oriented x3. PLAN: Weakness, urinary tract infection, dehydration, chronic obstructive pulmonary disease, seizures, encephalomalacia. Discharge home in the morning. Medically stable. MMODL / IJN: [id number] /
[2022-03-20 06:13] LABS: Glucose,Whole Blood 196 mg/dL (70-110)
[2022-03-20] MEDS: INSULIN ASPART (NovoLOG) 100 UNIT/ML VIAL SQ SCH ×2 (06:44→13:29)
[2022-03-20] MEDS: PATIENT'S OWN (Insulin Glargine/Lixisenatide [Soliqua 100 Unit-33 Mcg/Ml Pen] 3 ML In SQ SCH (09:07)
[2022-03-20] MEDS: hydrALAZINE HCL 50 MG TAB PO SCH (09:07)
[2022-03-20] MEDS: QUEtiapine 25 MG TAB PO SCH ×2 (09:07→13:29)
[2022-03-20] MEDS: amLODIPine 10 MG TAB PO SCH (09:07)
[2022-03-20] MEDS: levETIRAcetam 500 MG TAB PO SCH (09:07)
[2022-03-20] MEDS: PANTOPRAZOLE 40 MG TABLET PO SCH (09:07)
[2022-03-20] MEDS: NYSTATIN 100,000UNIT/GM CREAM 30 GM TUBE TOPICAL SCH (09:08)
[2022-03-20] MEDS ORDERED: FOLIC ACID 1 MG TAB PO SCH (10:00)
[2022-03-20 11:50] LABS: Glucose,Whole Blood 212 mg/dL (70-110)
--- NOTE | 2022-03-20 12:53 | P.PN ---
Subjective Progress Note Date: 03/20/22 History of present illness: This pleasant 76-year-old female with a known medical history of heart failure, paroxysmal atrial fibrillation not on long-term anticoagulation secondary to brain hemorrhage, coronary artery disease status post prior PCI to the LAD in 2018, sick sinus syndrome status post pacemaker in 2017([employer]), congestive heart failure with a preserved EF, hypertension with orthostatic hypotension, hyperlipidemia, chronic kidney disease stage III, CVA, type 2 diabetes, seizure, brain mass/fall with intracranial bleeding. Patient follows with Dr. Hawk in the office. We have been asked to see the patient for elevated troponins. . Patient presented to the ER with increased weakness she was brought in by family. Patient's troponin was 0.04, 0.032, 0.038. Patient has a known history of chronic kidney disease. Upon admission creatinine was 1.71. On prior admission creatinine was 1.9. Patient is a paced with ST depression and marked T-wave abnormality on her EKG no change from prior. Patient had an echocardiogram in October 2021 which showed a normal LV systolic function. Upon admission patient was found to have a UTI and is being treated with IV antibiotics. Will obtain a repeat 2-D echocardiogram. Will continue with current cardiac medications. 03/19 Yesterday, patient had Norvasc increased to 10 mg daily and hydralazine added at 50 mg every 8 hours. Blood pressure is improved today at 132/72, heart rate in the 60s. No new lab work today. Carotid ultrasound reveals less than 20% stenosis of both internal carotid arteries. Echocardiogram report is pending 03/20 Patient states she is feeling well today. Echocardiogram reveals normal LV systolic function with EF 50-55% and mild mitral and tricuspid regurgitation. Heart rate is in the 70s, blood pressure 137/74, pulse ox 92% on room air. Telemetry is paced rhythm. Physical examination: Gen: This is a 76-year-old female. She is resting in bed and appears to be without any acute symptoms VS: reviewed HEENT: Head is atraumatic, normocephalic. Pupils equal, round. Sclerae is a nicteric. NECK: Supple. No JVD. No lymphadenopathy. No thyromegaly. LUNGS: Clear to auscultation. No wheezes or rhonchi. No intercostal retractions. HEART: Regular rate and rhythm. No murmur. ABDOMEN: Soft. Bowel sounds are present. No masses. No tenderness. EXTREMITIES: No pedal edema. No calf tenderness. NEUROLOGICAL: Patient is awake, alert and oriented x3. Cranial nerves 2 through 12 are grossly intact. Assessment: Mild troponin elevation secondary to renal insufficiency, urinary tract infection Abnormal EKG secondary to chronic T-wave abnormalities, no change from prior EKG Plan: Continue patient on hydralazine 50 mg every 8 hours and Norvasc increased to 10 mg daily Patient is not on anticoagulation due to history of brain hemorrhage Cardiology will follow on an as-needed basis. Please reconsult for any new concern. Nurse practitioner note has been reviewed, I agree with documented findings and plan of care. Patient was seen and examined. Objective - Vital Signs Vital signs: Vital Signs Temp 97.7 F 03/20/22 09:05 Pulse 73 03/20/22 09:05 Resp 20 03/20/22 09:05 BP 137/74 03/20/22 09:05 Pulse Ox 92 L 03/20/22 09:05 FiO2 Intake & Output 03/19/22 03/20/22 03/20/22 18:59 06:59 18:59 Intake Total 1325 Output Total 50 700 Balance 1275 -700 Weight 94.5 kg Intake: Intake, IV Titration 825 Amount Sodium Chloride 0.9% 1, 825 000 ml @ 75 mls/hr IV . [id number] [facility] Rx#:[id number] Oral 500 Output: Urine 50 700 Straight 250 Other: Voiding Method External Catheter External Catheter # Voids 2 - Labs CBC & Chem 7: 03/18/22 07:05 03/18/22 07:05 Labs: Abnormal Lab Results - Last 24 Hours (Table) 03/19/22 03/19/22 03/19/22 Range/Units 12:06 16:57 20:28 POC Glucose (mg/dL) 276 H 212 H 235 H (70-110) mg/dL 03/20/22 Range/Units 06:12 POC Glucose (mg/dL) 196 H (70-110) mg/dL Microbiology - Last 24 Hours (Table) 03/16/22 17:11 Blood Culture - Preliminary Blood No Growth after 72 hours 03/16/22 17:11 Blood Culture - Preliminary Blood No Growth after 72 hours
--- NOTE | 2022-03-20 13:16 | P.PN ---
Subjective Progress Note Date: 03/20/22 I am follow up seeing the patient. Per the patient nurse no acute events overnight's order events today. Patient is doing well and no further issues from neurological perspective. Objective - Vital Signs Vital signs: Vital Signs Temp 97.7 F 03/20/22 09:05 Pulse 73 03/20/22 09:05 Resp 20 03/20/22 09:05 BP 137/74 03/20/22 09:05 Pulse Ox 92 L 03/20/22 09:05 FiO2 Intake & Output 03/19/22 03/20/22 03/20/22 18:59 06:59 18:59 Intake Total 1325 Output Total 50 700 Balance 1275 -700 Weight 94.5 kg Intake: Intake, IV Titration 825 Amount Sodium Chloride 0.9% 1, 825 000 ml @ 75 mls/hr IV . [id number] [facility] Rx#:[id number] Oral 500 Output: Urine 50 700 Straight 250 Other: Voiding Method External Catheter External Catheter # Voids 2 - Exam GENERAL: The patient is lying in bed and is not in acute distress. NEUROLOGICAL: Higher mental function: The patient is awake, alert, oriented to self, place. She correctly stated the current year. stated the month is April. Mildly slow responding to questions. Patient is following commands. No aphasia and no neglect. Cranial nerves: The pupils are round, equal and reactive to light and accommodation. Visual aly are full to confrontation throughout. Extraocular movement is intact no nystagmus is noted. Facial sensation is normal to touch throughout. The facial strength is normal throughout. Hearing is normal bilaterally to hand rub. Tongue is midline and moved [id number] without any difficulty. No dysarthria is noted. Shoulder shrug is normal bilaterally. Motor: The strength is proximal uppers limited because of old chronic shoulder pain according to patient. But otherwise 5 over 5 throughout. Normal tone and bulk. Cerebellum: Normal finger to nose bilaterally. Sensation: Sensation is normal to touch throughout. Reflexes (right/left): + throughout. Plantars are mute bilaterally. Some of the workup during his hospital visit consisted of: This is afebrile in no leukocytosis. Patient sugars has been in the range of low 200s to mid 200s It appears possibly the patient has acute urinary tract infection Serum vitamin B12 is 524 Serum folate is 5.30 which is well low normal TSH is 2.780 CT of the head is reported as previous surgery. Large area of encephalomalacia in the right cerebral hemisphere without change compared to old exam. No acute intracranial abnormality. There is likely is some microvascular ischemia. I personally reviewed the CT of the head and I agree the patient has old encephalomalacia over predominantly the right parietal extending into the occipital region with old surgical. Cardiac duplex was reported as there is antegrade flow in the vertebral arteries. Images and measurements suggest less than 20% stenosis in both internal carotid arteries. CT cervical spine was reported as multilevel spondylitic changes. There is increased osteophyte formation in the lower cervical spine compared to old exam. There is likely some progression of the spine stenosis compared to old exam. No fracture seen. - Labs CBC & Chem 7: 03/18/22 07:05 03/18/22 07:05 Labs: Abnormal Lab Results - Last 24 Hours (Table) 03/19/22 03/19/22 03/20/22 Range/Units 16:57 20:28 06:12 POC Glucose (mg/dL) 212 H 235 H 196 H (70-110) mg/dL 03/20/22 Range/Units 11:49 POC Glucose (mg/dL) 212 H (70-110) mg/dL Microbiology - Last 24 Hours (Table) 03/16/22 17:11 Blood Culture - Preliminary Blood No Growth after 72 hours 03/16/22 17:11 Blood Culture - Preliminary Blood No Growth after 72 hours Assessment and Plan Assessment: Transient confusion and appears due to Acute UTI. Confusion has resolved. Generalized weakness (reported by family members)--no focal deficits Low normal folate Encephalomalacia over the right parietal/occipital due to History of intracranial bleed/?mass and has surgical resection at [facility] History of seizure Surgery after brain bleed and is on Keppra Diabetes mellitus seems her sugars currently in 200's History of paroxysmal atrial fibrillation not on anticoagulation History of coronary artery disease that is post stent History of lower GI bleeds as well as gastritis History of pacemaker Plan: Because of the low normal folate I started the patient on folic acid 1 mg daily. If Patient has any further confusion then we'll pursue with the routine EEG to rule out seizure. She is on her home dose of Keppra 500mg 1 tab tid. Regarding her chronic neck pain recommend follow-up with the orthopedic team as an outpatient for now she states she does not want any further workup or evaluation. PT and OT are consulted. Regarding Paroxysmal atrial fibrillation will defer management to primary team. It seem patient had history of intracranial bleed and GI bleed. Not sure if will benefit with antiplatelets but will defer final decision to primary team. Will Defer the rest of the medical measures with the primary team The plan is discussed with nurse. No additional workup is needed at this time. Time with Patient: Less than 30
[2022-03-20 13:27] VITALS: BP 138/78; PULSE 65; RESP 18; TEMP 98.2
== END 2022-03-20 15:37 | disposition home or self-care (01) | DRG 690 ==
LOC: EC 16:25 → 3SCARD 19:31
PROVIDERS: ADMIT Family Medicine; ATTEND Family Medicine
DX: N39.0 Urinary tract infection, site not specified (principal); I13.0 Hypertensive heart and chronic kidney disease with heart failure and stage 1 through stage 4 chronic kidney disease, or unspecified chronic kidney disease; J44.0 Chronic obstructive pulmonary disease with (acute) lower respiratory infection; N17.9 Acute kidney failure, unspecified; J98.11 Atelectasis; I50.32 Chronic diastolic (congestive) heart failure; I48.20 Chronic atrial fibrillation, unspecified; R41.0 Disorientation, unspecified; Z20.822 Contact with and (suspected) exposure to COVID-19; I48.0 Paroxysmal atrial fibrillation; E11.40 Type 2 diabetes mellitus with diabetic neuropathy, unspecified; I49.5 Sick sinus syndrome; N18.30 Chronic kidney disease, stage 3 unspecified; G40.909 Epilepsy, unspecified, not intractable, without status epilepticus; I25.10 Atherosclerotic heart disease of native coronary artery without angina pectoris; Z79.4 Long term (current) use of insulin; E11.22 Type 2 diabetes mellitus with diabetic chronic kidney disease; E86.0 Dehydration; G93.89 Other specified disorders of brain; I65.23 Occlusion and stenosis of bilateral carotid arteries; I08.1 Rheumatic disorders of both mitral and tricuspid valves; K29.70 Gastritis, unspecified, without bleeding; M54.2 Cervicalgia; G89.29 Other chronic pain; F32.A Depression, unspecified; E66.01 Morbid (severe) obesity due to excess calories; E78.5 Hyperlipidemia, unspecified; F03.90 Unspecified dementia, unspecified severity, without behavioral disturbance, psychotic disturbance, mood disturbance, and anxiety; H54.62 Unqualified visual loss, left eye, normal vision right eye; I49.3 Ventricular premature depolarization; M48.02 Spinal stenosis, cervical region; M25.78 Osteophyte, vertebrae; F41.9 Anxiety disorder, unspecified; Z82.5 Family history of asthma and other chronic lower respiratory diseases; Z80.8 Family history of malignant neoplasm of other organs or systems; Z99.81 Dependence on supplemental oxygen; Z95.5 Presence of coronary angioplasty implant and graft; Z91.199 Patient's noncompliance with other medical treatment and regimen due to unspecified reason; Z95.0 Presence of cardiac pacemaker; Z88.2 Allergy status to sulfonamides; Z88.1 Allergy status to other antibiotic agents; Z91.040 Latex allergy status; Z79.899 Other long term (current) drug therapy; Z85.828 Personal history of other malignant neoplasm of skin; Z87.11 Personal history of peptic ulcer disease; Z86.14 Personal history of Methicillin resistant Staphylococcus aureus infection; Z86.73 Personal history of transient ischemic attack (TIA), and cerebral infarction without residual deficits; Z83.3 Family history of diabetes mellitus; Z82.49 Family history of ischemic heart disease and other diseases of the circulatory system; G47.30 Sleep apnea, unspecified; Z90.710 Acquired absence of both cervix and uterus; Z91.048 Other nonmedicinal substance allergy status; Z87.820 Personal history of traumatic brain injury
CPT/HCPCS: 36415; 70450; 71046; 71250; 72125; 80048; 80053; 81001; 82607; 82746; 83605; 83735; 84443; 84484; 85025; 85610; 85730; 87040; 87086; 87636; 93005; 93306; 93880; 96361; 96374; 99285

== ENCOUNTER 2022-05-29 13:51 | Emergency (ER) | payer MEDICARE ==
[2022-05-29] MEDS ORDERED: methylPREDNISolone SOD SUCCI 125 MG/2 ML VIAL IV STA (13:56)
--- NOTE | 2022-05-29 14:50 | XR ---
EXAMINATION TYPE: XR chest 2V DATE OF EXAM: 05/29/2022 COMPARISON: Chest CT March 17, 2022 HISTORY: Shortness of breath TECHNIQUE: Frontal and lateral views of the chest are obtained. FINDINGS: There is cardiomegaly with dual-lead pacemaker redemonstrated. There are small to moderate- sized bilateral pleural effusions on current study. There are increased interstitial markings consist ent with [id number] interstitial edema bilaterally with more focal increased opacities in the r ight upper and lower lung and left mid lung regions. Advanced degenerative change bilateral glenohume ral joints is redemonstrated. Cholecystectomy clips are seen. IMPRESSION: Findings are consistent with CHF exacerbation as detailed above. Additional areas of und erlying bilateral acute infiltrates cannot be excluded. Correlate clinically. Follow-up is advised.
[2022-05-29 15:29] LABS: Albumin 4.3 g/dL (3.5-5.0); Calcium 9.7 mg/dL (8.4-10.2); Potassium 4.7 mmol/L (3.5-5.1); Total Bilirubin 1.2 mg/dL (0.2-1.3)
[2022-05-29 15:59] LABS: Basophils % (A) 1 %; Eosinophils % (A) 1 %; HCT 36.6 % (34.0-46.0); HGB 11.6 gm/dL (11.4-16.0); Hypochromasia Slight; Lymphocytes % (A) 12 %; MCH 28.9 pg (25.0-35.0); MCHC 31.7 g/dL (31.0-37.0); Mean Platelet Volume 7.7; Monocytes # (A) 0.5 k/uL (0-1.0); Monocytes % (A) 6 %; Neutrophils # (A) 6.3 k/uL (1.3-7.7); Neutrophils % (A) 79 %; RBC 4.02 m/uL (3.80-5.40); RDW 15.1 % (11.5-15.5); WBC 7.9 k/uL (3.8-10.6)
[2022-05-29] MEDS ORDERED: PNEUMONIA PROTOCOL UTILIZED 1 EACH MISC PO PRN (16:09)
[2022-05-29] MEDS ORDERED: AZITHROMYCIN 500 MG in SODIUM CHLORIDE 0.9% 250 ML IVPB STA (16:09)
--- NOTE | 2022-05-29 16:09 | ED ---
General Adult HPI - General Source: patient, EMS, RN notes reviewed Mode of arrival: EMS Limitations: no limitations <Dennis Mckeon - Last Filed: 05/29/22 16:04> <Brendon Putnam - Last Filed: 05/29/22 20:58> - General Chief complaint: Shortness of Breath Stated complaint: SOB Time Seen by Provider: 05/29/22 13:55 - History of Present Illness Initial comments: 76-year-old female presents emergency from via EMS she went shortness breath. Patient states she started having increasing shortness for the last couple days. Patient states that she does feel slightly improved after DuoNeb treatment. Patient states that she does have a history of COPD asthma and CHF. Patient states she has some chest tightness. Patient denies any nausea vomiting. Patient reports fevers chills. (Dennis Mckeon) - Related Data Home Medications Medication Instructions Recorded Confirmed levETIRAcetam [Keppra] 500 mg PO TID 07/21/18 05/29/22 Pantoprazole [Protonix] 40 mg PO DAILY 12/19/19 05/29/22 QUEtiapine [SEROquel] 25 mg PO BID@0700,1200 09/17/20 05/29/22 Insulin Glargine/Lixisenatide 20 units SQ DAILY 10/12/21 05/29/22 [[place] 100 Unit-33 Mcg/ml Pen] Acetaminophen Tab [Tylenol Tab] 1,000 mg PO HS 05/29/22 05/29/22 Acetaminophen Tab [Tylenol Tab] 500 mg PO DAILY 05/29/22 05/29/22 Albuterol Sulfate [Ventolin HFA] 2 puff INHALATION RT-Q6H PRN 05/29/22 05/29/22 Aspirin EC [Ecotrin Low Dose] 81 mg PO DAILY 05/29/22 05/29/22 Calcium Carbonate [Calcium] 600 mg PO DAILY 05/29/22 05/29/22 Calcium Carbonate [Tums] 500 mg PO ACHS PRN 05/29/22 05/29/22 Cholecalciferol [Vitamin D3 (25 25 mcg PO DAILY 05/29/22 05/29/22 Mcg = 1000 Iu)] Cholestyramine (with Sugar) 4 gm PO DAILY 05/29/22 05/29/22 [Cholestyramine Packet] Ferrous Sulfate [Feosol] 325 mg PO DAILY 05/29/22 05/29/22 Fluticasone/Umeclidin/Vilanter 1 puff INHALATION RT-DAILY 05/29/22 05/29/22 [Trelegy Ellipta 200-62.5-25] Ipratropium-Albuterol Nebulize 3 ml INHALATION RT-QID PRN 05/29/22 05/29/22 [Duoneb 0.5 mg-3 mg/3 ml Soln] Loperamide HCl [Imodium A-D] 2 mg PO QID PRN 05/29/22 05/29/22 hydrALAZINE HCL [Apresoline] 50 mg PO BID 05/29/22 05/29/22 modafiniL [Provigil] 100 mg PO DIRECTED 05/29/22 05/29/22 Previous Rx's Medication Instructions Recorded QUEtiapine [SEROquel] 100 mg PO HS 30 Days #30 tab 04/13/19 amLODIPine [Norvasc] 10 mg PO DAILY 90 Days #90 tab 03/19/22 Allergies Allergy/AdvReac Type Severity Reaction Status Date / Time Latex, Natural Rubber Allergy Itching Verified 05/29/22 14:41 sulfamethoxazole Allergy Rash/Hives Verified 05/29/22 14:41 [From Bactrim] trimethoprim [From Bactrim] Allergy Rash/Hives Verified 05/29/22 14:41 Review of Systems ROS Other: All systems not noted in ROS Statement are negative. <Dennis Mckeon - Last Filed: 05/29/22 16:04> ROS Other: All systems not noted in ROS Statement are negative. <Brendon Putnam - Last Filed: 05/29/22 20:58> ROS Statement: Those systems with pertinent positive or pertinent negative responses have been documented in the HPI. Past Medical History Past Medical History: Atrial Fibrillation, Asthma, Coronary Artery Disease (CAD), Cancer, Heart Failure, CVA/TIA, Diabetes Mellitus, Eye Disorder, Hypertension, Osteoarthritis (OA), Renal Disease, Seizure Disorder Additional Past Medical History / Comment(s): Brain mass/fall with intracranial bleed/hematome-surgery at [facility], seizure after brain surgery, paroxysmal Afib, DM type II, neuropathy bilateral feet, orthostatic hypotension, SSS with pacemaker, L1 compression fx, CKD stage III, blind in L eye, UTIs, lower GI bleed, gastritis, gastric erosion, CDiff colitis, skin cancer with removals, past L arm fracture, past R arm fracture x2. History of Any Multi-Drug Resistant Organisms: None Reported, MRSA Date of last positivie culture/infection: 01/26/19 MDRO Source:: URINE Past Surgical History: Cholecystectomy, Heart Catheterization, Heart Catheterization With Stent, Hysterectomy, Pacemaker Additional Past Surgical History / Comment(s): Evacuation of intracranial hematoma and ressection of hemorrhagic mass, pacemaker 2016, PCI with stent 06/06/18, EGD/colonoscopy, R eye corneal implant/cataract removal, EGD 06/2018, colonoscopy, skin cancer removal. Past Anesthesia/Blood Transfusion Reactions: No Reported Reaction Additional Past Anesthesia/Blood Transfusion Reaction / Comment(s): . Date of Last Stent Placement:: 06/06/18 Type of Cardiac Device: Permanent Pacemaker Device Placement Date:: 04/2016 Past Psychological History: Anxiety, Depression Smoking Status: Never smoker Past Alcohol Use History: None Reported Past Drug Use History: None Reported - Past Family History Mother Family Medical History: Cancer, COPD, Hypertension Additional Family Medical History / Comment(s): Mother had bone cancer. Father Family Medical History: Cancer, Hypertension Additional Family Medical History / Comment(s): Father had skin cancer. <Dennis Mckeon - Last Filed: 05/29/22 16:04> General Exam Limitations: no limitations General appearance: alert, in no apparent distress Head exam: Present: atraumatic, normocephalic, normal inspection Eye exam: Present: normal appearance, PERRL, EOMI. Absent: scleral icterus, conjunctival injection, periorbital swelling ENT exam: Present: normal exam, normal oropharynx, mucous membranes moist Neck exam: Present: normal inspection, full ROM. Absent: tenderness, meningismus, lymphadenopathy Respiratory exam: Present: rales, decreased breath sounds. Absent: normal lung sounds bilaterally, respiratory distress, wheezes, rhonchi, stridor Cardiovascular Exam: Present: regular rate, normal rhythm, normal heart sounds. Absent: systolic murmur, diastolic murmur, rubs, gallop, clicks <Dennis Mckeon - Last Filed: 05/29/22 16:04> Course Vital Signs 03/05/29/22 05/29/22 14:00 14:06 16:24 Temperature 94.8 F L Pulse Rate 69 Respiratory 20 20 Rate Blood Pressure 136/61 O2 Sat by Pulse 96 Oximetry 05/29/22 05/29/22 05/29/22 17:24 17:33 18:18 Temperature 97.6 F Pulse Rate 73 60 Respiratory 18 22 Rate Blood Pressure 129/87 121/65 O2 Sat by Pulse 91 L 93 L Oximetry EKG Findings - EKG Comments: EKG Findings:: EKG performed at 14:0 rhythm 77 SD 190 QT/QTC 495/526 - EKG Results: EKG: interpreted by MINDY <Dennis Mckeon - Last Filed: 05/29/22 16:04> Medical Decision Making - Lab Data Result diagrams: 05/29/22 14:19 <Dennis Mckeon - Last Filed: 05/29/22 16:04> - Lab Data Result diagrams: 05/29/22 14:19 05/29/22 14:19 <Brendon Putnam - Last Filed: 05/29/22 20:58> - Medical Decision Making Was pt. sent in by a medical professional or institution (, PA, [employer], urgent care, hospital, or senior living...) When possible be specific @ -No Did you speak to anyone other than the patient for history (EMS, parent, family, police, friend...)? What history was obtained from this source @ -EMS provided prehospital vitals, care and complaint Did you review nursing and triage notes (agree or disagree)? Why? @ -I reviewed and agree with nursing and triage notes Were old charts reviewed (outside hosp., previous admission, EMS record, old EKG, old radiological studies, urgent care reports/EKG's, senior living records)? Report findings @ -Reviewed prior laboratory studies including echocardiogram Differential Diagnosis (chest pain, altered mental status, abdominal pain women, abdominal pain men, vaginal bleeding, weakness, fever, dyspnea, syncope, headache, dizziness, GI bleed, back pain, seizure, CVA, palpatations, mental health, musculoskeletal)? @ -nDifferential Dyspnea: Coronary syndrome, arrhythmia, tamponade, asthma, COPD, pulmonary embolism, pneumonia, pneumothorax, pulmonary effusion, anaphylaxis, diabetic ketoacidosis, flailed chest, pulmonary contusion, diaphragmatic rupture, anemia, neuromuscular, this is not meant to be an all-inclusive list. ble EKG interpreted by me (3pts min.). @ -As above X-rays interpreted by me (1pt min.). @ -Chest x-ray shows bilateral infiltrates versus CHF changes CT interpreted by me (1pt min.). @ -None done U/S interpreted by me (1pt. min.). @ -None done What testing was considered but not performed or refused? (CT, X-rays, U/S, labs)? Why? @ -None What meds were considered but not given or refused? Why? @ -None Did you discuss the management of the patient with other professionals (professionals i.e. , PA, [employer], lab, RT, psych nurse, social science analyst, ash [employer] boiler, teacher, recreation officer, correctional case records supervisor)? Give summary @ -Dr. Faustin for admission Was smoking cessation discussed for >3mins.? @ -No Was critical care preformed (if so, how long)? @ -No Were there social determinants of health that impacted care today? How? (Homelessness, low income, unemployed, alcoholism, drug addiction, transportation, low edu. Level, literacy, decrease access to med. care, care home, rehab)? @ -No Was there de-escalation of care discussed even if they declined (Discuss DNR or withdrawal of care, Hospice)? DNR status @ -No What co-morbidities impacted this encounter? (DM, HTN, Smoking, COPD, CAD, Cancer, CVA, ARF, Chemo, Hep., AIDS, mental health diagnosis, sleep apnea, morbid obesity)? @ -COPD, asthma, CHF, Was patient admitted / discharged? Hospital course, mention meds given and route, prescriptions, significant lab abnormalities, going to OR and other pertinent info. @ -Admitted patient has bilateral infiltrates versus pulmonary edema patient was given Lasix, steroids, antibiotics. Patient be admitted for further treatment and management. Undiagnosed new problem with uncertain prognosis? @ -No Drug Therapy requiring intensive monitoring for toxicity (Heparin, Nitro, Insulin, Cardizem)? @ -No Were any procedures done? @ -No Diagnosis/symptom? @ -Acute respiratory distress, Acute, or Chronic, or Acute on Chronic? @ -Acute Uncomplicated (without systemic symptoms) or Complicated (systemic symptoms)? @ -, Complicated Side effects of treatment? @ -No Exacerbation, Progression, or Severe Exacerbation? @ -No Poses a threat to life or bodily function? How? (Chest pain, [place], [place], pneumonia, PE, COPD, DKA, ARF, appy, cholecystitis, CVA, Diverticulitis, Homicidal, Suicidal, threat to staff... and all critical care pts) @ -yes Diagnosis/symptom? @ -Pulmonary edema Acute, or Chronic, or Acute on Chronic? @ -Acute Uncomplicated (without systemic symptoms) or Complicated (systemic symptoms)? @ -Complicated Side effects of treatment? @ -none Exacerbation, Progression, or Severe Exacerbation] @ -no Poses a threat to life or bodily function? @ -yes (Dennis Mckeon) This patient is 76-year-old woman here for dyspnea who was in the process of being admitted to the hospital when she developed some diffuse abdominal cramping and urge to have bowel movement. She passed moderate amount of maroon colored blood with normal appearing brown stool present. There is no GI coverage this week. The case therefore discussed with the patient and she is amenable to transfer to [facility] in [place]. The case discussed with transfer team and then with Dr. Verdin who accepts patient for transfer. The patient did have CT of the abdomen while pending the transfer team discussion which did not reveal source of bleeding though there is diverticul osis present. The patient did receive 1 dose of TXA for bleeding. (Brendon Putnam) - Lab Data Lab Results 05/29/22 05/29/22 05/29/22 Range/Units 14:19 14:19 14:19 WBC 7.9 (3.8-10.6) k/uL RBC 4.02 (3.80-5.40) m/uL Hgb 11.6 (11.4-16.0) gm/dL Hct 36.6 (34.0-46.0) % MCV 91.0 (80.0-100.0) fL MCH 28.9 (25.0-35.0) pg MCHC 31.7 (31.0-37.0) g/dL RDW 15.1 (11.5-15.5) % Plt Count 92 L (150-450) k/uL MPV 7.7 Neutrophils % 79 % Lymphocytes % 12 % Monocytes % 6 % Eosinophils % 1 % Basophils % 1 % Neutrophils # 6.3 (1.3-7.7) k/uL Lymphocytes # 1.0 (1.0-4.8) k/uL Monocytes # 0.5 (0-1.0) k/uL Eosinophils # 0.0 (0-0.7) k/uL Basophils # 0.0 (0-0.2) k/uL Manual Slide Review Performed Hypochromasia Slight Sodium 140 (137-145) mmol/L Potassium 4.7 (3.5-5.1) mmol/L Chloride 102 (98-107) mmol/L Carbon Dioxide 28 (22-30) mmol/L Anion Gap 10 mmol/L BUN 47 H (7-17) mg/dL Creatinine 1.70 H (0.52-1.04) mg/dL Est GFR (CKD-EPI)AfAm 33 (>60 ml/min/1.73 sqM) Est GFR (CKD-EPI)NonAf 29 (>60 ml/min/1.73 sqM) Glucose 155 H (74-99) mg/dL Calcium 9.7 (8.4-10.2) mg/dL Total Bilirubin 1.2 (0.2-1.3) mg/dL AST 24 (14-36) U/L ALT 16 (4-34) U/L Alkaline Phosphatase 105 (38-126) U/L Troponin I <0.012 (0.000-0.034) ng/mL NT-Pro-B Natriuret Pep pg/mL Total Protein 7.0 (6.3-8.2) g/dL Albumin 4.3 (3.5-5.0) g/dL TSH (0.465-4.680) mIU/L Urine Color Urine Appearance (Clear) Urine pH (5.0-8.0) Ur Specific [place] (1.001-1.035) Urine Protein (Negative) Urine Glucose (UA) (Negative) Urine Ketones (Negative) Urine Blood (Negative) Urine Nitrite (Negative) Urine Bilirubin (Negative) Urine Urobilinogen (<2.0) mg/dL Ur Leukocyte Esterase (Negative) Urine RBC (0-5) /hpf Urine WBC (0-5) /hpf Ur Squamous Epith Cells (0-4) /hpf Hyaline Casts (0-2) /lpf Influenza Type A (PCR) (Not Detectd) Influenza Type B (PCR) (Not Detectd) RSV (PCR) (Not Detectd) SARS-CoV-2 (PCR) (Not Detectd) 05/29/22 05/29/22 05/29/22 Range/Units 14:19 14:19 16:20 WBC (3.8-10.6) k/uL RBC (3.80-5.40) m/uL Hgb (11.4-16.0) gm/dL Hct (34.0-46.0) % MCV (80.0-100.0) fL MCH (25.0-35.0) pg MCHC (31.0-37.0) g/dL RDW (11.5-15.5) % Plt Count (150-450) k/uL MPV Neutrophils % % Lymphocytes % % Monocytes % % Eosinophils % % Basophils % % Neutrophils # (1.3-7.7) k/uL Lymphocytes # (1.0-4.8) k/uL Monocytes # (0-1.0) k/uL Eosinophils # (0-0.7) k/uL Basophils # (0-0.2) k/uL Manual Slide Review Hypochromasia Sodium (137-145) mmol/L Potassium (3.5-5.1) mmol/L Chloride (98-107) mmol/L Carbon Dioxide (22-30) mmol/L Anion Gap mmol/L BUN (7-17) mg/dL Creatinine (0.52-1.04) mg/dL Est GFR (CKD-EPI)AfAm (>60 ml/min/1.73 sqM) Est GFR (CKD-EPI)NonAf (>60 ml/min/1.73 sqM) Glucose (74-99) mg/dL Calcium (8.4-10.2) mg/dL Total Bilirubin (0.2-1.3) mg/dL AST (14-36) U/L ALT (4-34) U/L Alkaline Phosphatase (38-126) U/L Troponin I (0.000-0.034) ng/mL NT-Pro-B Natriuret Pep 5640 pg/mL Total Protein (6.3-8.2) g/dL Albumin (3.5-5.0) g/dL TSH 3.840 (0.465-4.680) mIU/L Urine Color Urine Appearance (Clear) Urine pH (5.0-8.0) Ur Specific [place] (1.001-1.035) Urine Protein (Negative) Urine Glucose (UA) (Negative) Urine Ketones (Negative) Urine Blood (Negative) Urine Nitrite (Negative) Urine Bilirubin (Negative) Urine Urobilinogen (<2.0) mg/dL Ur Leukocyte Esterase (Negative) Urine RBC (0-5) /hpf Urine WBC (0-5) /hpf Ur Squamous Epith Cells (0-4) /hpf Hyaline Casts (0-2) /lpf Influenza Type A (PCR) Not Detected (Not Detectd) Influenza Type B (PCR) Not Detected (Not Detectd) RSV (PCR) Not Detected (Not Detectd) SARS-CoV-2 (PCR) Not Detected (Not Detectd) 05/29/22 Range/Units 17:26 WBC (3.8-10.6) k/uL RBC (3.80-5.40) m/uL Hgb (11.4-16.0) gm/dL Hct (34.0-46.0) % MCV (80.0-100.0) fL MCH (25.0-35.0) pg MCHC (31.0-37.0) g/dL RDW (11.5-15.5) % Plt Count (150-450) k/uL MPV Neutrophils % % Lymphocytes % % Monocytes % % Eosinophils % % Basophils % % Neutrophils # (1.3-7.7) k/uL Lymphocytes # (1.0-4.8) k/uL Monocytes # (0-1.0) k/uL Eosinophils # (0-0.7) k/uL Basophils # (0-0.2) k/uL Manual Slide Review Hypochromasia Sodium (137-145) mmol/L Potassium (3.5-5.1) mmol/L Chloride (98-107) mmol/L Carbon Dioxide (22-30) mmol/L Anion Gap mmol/L BUN (7-17) mg/dL Creatinine (0.52-1.04) mg/dL Est GFR (CKD-EPI)AfAm (>60 ml/min/1.73 sqM) Est GFR (CKD-EPI)NonAf (>60 ml/min/1.73 sqM) Glucose (74-99) mg/dL Calcium (8.4-10.2) mg/dL Total Bilirubin (0.2-1.3) mg/dL AST (14-36) U/L ALT (4-34) U/L Alkaline Phosphatase (38-126) U/L Troponin I (0.000-0.034) ng/mL NT-Pro-B Natriuret Pep pg/mL Total Protein (6.3-8.2) g/dL Albumin (3.5-5.0) g/dL TSH (0.465-4.680) mIU/L Urine Color Yellow Urine Appearance Clear (Clear) Urine pH 5.0 (5.0-8.0) Ur Specific [place] 1.019 (1.001-1.035) Urine Protein Negative (Negative) Urine Glucose (UA) Negative (Negative) Urine Ketones Negative (Negative) Urine Blood Negative (Negative) Urine Nitrite Negative (Negative) Urine Bilirubin Negative (Negative) Urine Urobilinogen <2.0 (<2.0) mg/dL Ur Leukocyte Esterase Large H (Negative) Urine RBC 1 (0-5) /hpf Urine WBC 8 H (0-5) /hpf Ur Squamous Epith Cells <1 (0-4) /hpf Hyaline Casts 15 H (0-2) /lpf Influenza Type A (PCR) (Not Detectd) Influenza Type B (PCR) (Not Detectd) RSV (PCR) (Not Detectd) SARS-CoV-2 (PCR) (Not Detectd) Disposition Time of Disposition: 16:09 <Dennis Mckeon - Last Filed: 05/29/22 16:04> <Brendon Putnam - Last Filed: 05/29/22 20:58> Clinical Impression: Bilateral pneumonia, Pulmonary edema, Pleural effusion Disposition: ADMITTED IP TO THIS HOSP Condition: Poor Referrals: Vikram Zamarripa MD [Primary Care Provider] - 1-2 days
[2022-05-29] MEDS ORDERED: FUROSEMIDE 10 MG/ML 4 ML VIAL IV STA (16:11)
[2022-05-29 16:33] LABS: Platelet Count 92 k/uL (150-450)
[2022-05-29 17:34] VITALS: TEMP 97.6
[2022-05-29] MEDS ORDERED: LOPERAMIDE 2 MG CAP PO PRN (17:36)
[2022-05-29] MEDS ORDERED: ALBUTEROL HFA INHALER INHALATION PRN (17:36)
[2022-05-29] MEDS ORDERED: IPRATROPIUM-ALBUTEROL 3 ML NEB INHALATION PRN (17:36)
[2022-05-29] MEDS ORDERED: CALCIUM CARBONATE 500 MG CHEWABLE PO PRN (17:36)
[2022-05-29] MEDS ORDERED: SODIUM CHLORIDE 0.9% 1,000 ML IV SCH (17:45)
[2022-05-29] MEDS ORDERED: modafiniL 100 MG TAB PO SCH (17:45)
[2022-05-29 17:46] LABS: Appearance,Urine Clear (Clear); Bilirubin,Urine Negative (Negative); Blood,Urine Negative (Negative); Color,Urine Yellow; Glucose,Urine (UA) Negative (Negative); Hyaline Casts,Urine 15 /lpf (0-2); Ketones,Urine Negative (Negative); Leukocyte Esterase,Urine Large (Negative); Nitrite,Urine Negative (Negative); Protein,Urine Negative (Negative); RBC,Urine 1 /hpf (0-5); Specific Gravity,Urine 1.019 (1.001-1.035); Squamous Epithelial Cell,Urine <1 /hpf (0-4); Urobilinogen,Urine <2.0 mg/dL (<2.0); WBC,Urine 8 /hpf (0-5)
[2022-05-29 18:43] VITALS: BP 121/65; RESP 22
--- NOTE | 2022-05-29 19:42 | CT ---
EXAMINATION TYPE: CT abdomen pelvis wo con DATE OF EXAM: 05/29/2022 COMPARISON: 09/17/2020 HISTORY: poss GI bleed CT DLP: 1521.4 mGycm Automated exposure control for dose reduction was used. Images obtained from the diaphragm to the floor of the pelvis with no contrast. There are bilateral pleural effusions. There is infiltrate and atelectasis at both lung bases. Heart is borderline enlarged. There are clips from cholecystectomy. Liver and spleen are intact. There is extensive atherosclerotic vascular calcification in the abdomen. No evidence of pancreatic mass. The bile ducts are not dilate d. The stomach is intact. There is no adrenal mass. Kidneys have normal size. No hydronephrosis. There is 2 cm cortical cyst lo wer pole left kidney. Ureters are not dilated. No retroperitoneal adenopathy. The bladder distends sm oothly. No inguinal hernia. There are sigmoid diverticula. No diverticulitis. There is no mesenteric edema. There is no ascites or free air no evidence of a bowel obstruction. The lumbar vertebrae have normal alignment. There is 20% compression deformity of L3 and L1 vertebra which is unchanged. The bony pelvis is intact. The proximal femurs and hip joints are intact. There is acetabular spurrin g. IMPRESSION: Atherosclerotic vascular disease. There is very small amount of low-density fluid in the pelvis which is a change compared to old exam There is mild sigmoid diverticulosis without diverticulitis. There are bilateral pleural effusions and lower lobe pulmonary infiltrates and atelectasis which are new compared to the old exam. This could be chronic congestive heart failure.
[2022-05-29] MEDS ORDERED: IPRATROPIUM 0.5 MG/2.5 ML NEBU INHALATION SCH (20:00)
[2022-05-29] MEDS ORDERED: IPRATROPIUM-ALBUTEROL 3 ML NEB INHALATION SCH (20:00)
[2022-05-29] MEDS ORDERED: ALBUTEROL NEBULIZED 2.5 MG/3 ML INHALATION SCH (20:00)
[2022-05-29] MEDS ORDERED: SYMBICORT 80-4.5 MCG INHALER INHALATION SCH (20:00)
[2022-05-29] MEDS ORDERED: TRANEXAMIC ACID 1,000 MG in SODIUM CHLORIDE 0.9% 100 ML IVPB ONE (20:30)
--- NOTE | 2022-05-29 20:34 | CT ---
EXAMINATION TYPE: CT chest wo con DATE OF EXAM: 05/29/2022 COMPARISON: 03/17/2022 HISTORY: dyspnea CT DLP: 832.3 mGycm Automated exposure control for dose reduction was used. Images obtained from the thoracic inlet to the diaphragm with no contrast. There is moderate bilateral pleural effusions. There is bilateral posterior pulmonary infiltrates and atelectasis. There is dense coronary artery calcification. Thoracic aorta is atheromatous. No medias tinal adenopathy. There are no hilar masses. There is patchy groundglass interstitial infiltrates in the mid and upper lung aly. The thoracic spine is intact. No significant heart appears slightly enlarged. There is mild anterior wedging of T11 vertebra 15% which appears unchanged. IMPRESSION: Pleural effusions and pulmonary infiltrates or atelectasis which are mostly new compared to old exam and could be chronic congestive heart failure. Atherosclerotic vascular disease. Pneumonia not exclud ed
[2022-05-29] MEDS ORDERED: ACETAMINOPHEN TAB 500 MG TAB PO SCH (21:00)
[2022-05-29] MEDS ORDERED: hydrALAZINE HCL 50 MG TAB PO SCH (21:00)
[2022-05-29] MEDS ORDERED: QUEtiapine 100 MG TAB PO SCH (21:00)
[2022-05-29 21:22] VITALS: PULSE 68
[2022-05-29] MEDS ORDERED: levETIRAcetam 500 MG TAB PO SCH (22:00)
[2022-05-30] MEDS ORDERED: QUEtiapine 25 MG TAB PO SCH (07:00)
[2022-05-30] MEDS ORDERED: IPRATROPIUM 0.5 MG/2.5 ML NEBU INHALATION SCH (08:00)
[2022-05-30] MEDS ORDERED: PANTOPRAZOLE 40 MG TABLET PO SCH (09:00)
[2022-05-30] MEDS ORDERED: ASPIRIN 81 MG PO SCH (09:00)
[2022-05-30] MEDS ORDERED: amLODIPine 10 MG TAB PO SCH (09:00)
[2022-05-30] MEDS ORDERED: CHOLECALCIFEROL 25 MCG (1000 IU) TABLET PO SCH (09:00)
[2022-05-30] MEDS ORDERED: CHOLESTYRAMINE (WITH SUGAR) 4 GM PACKET PO SCH (09:00)
[2022-05-30] MEDS ORDERED: ACETAMINOPHEN TAB 500 MG TAB PO SCH (09:00)
[2022-05-30] MEDS ORDERED: FERROUS SULFATE 325 MG TAB PO SCH (09:00)
[2022-05-30] MEDS ORDERED: CALCIUM CARBONATE 500 MG CHEWABLE PO SCH (09:00)
[2022-05-30] MEDS ORDERED: NON FORMULARY DRUG (Insulin Glargine/Lixisenatide [Soliqua 100 Unit-33 Mcg/Ml Pen] 3 ML In SQ SCH (09:00)
[2022-05-30] MEDS ORDERED: AZITHROMYCIN 500 MG TAB PO SCH (12:00)
== END 2022-05-29 22:28 | disposition other institution (70) ==
LOC: EC 13:51 → UNDOADMIN 16:23 → 5NMEDONC 16:23 → EC 22:28
DX: J18.9 Pneumonia, unspecified organism (principal); J81.1 Chronic pulmonary edema; J90 Pleural effusion, not elsewhere classified; I48.91 Unspecified atrial fibrillation; I25.10 Atherosclerotic heart disease of native coronary artery without angina pectoris; J45.909 Unspecified asthma, uncomplicated; E11.9 Type 2 diabetes mellitus without complications; I11.0 Hypertensive heart disease with heart failure; I50.9 Heart failure, unspecified; M19.90 Unspecified osteoarthritis, unspecified site; Z86.73 Personal history of transient ischemic attack (TIA), and cerebral infarction without residual deficits; F41.9 Anxiety disorder, unspecified; F32.A Depression, unspecified; Z91.040 Latex allergy status; Z88.2 Allergy status to sulfonamides; Z79.82 Long term (current) use of aspirin; Z79.899 Other long term (current) drug therapy; Z79.4 Long term (current) use of insulin; Z20.822 Contact with and (suspected) exposure to COVID-19
CPT/HCPCS: 36415; 94640; 93005; 83880; 80053; 87449; 84443; 84484; 85025; 81001; 87040; 87086; 84145; 87636; 71046; 71250; 74176; 99285; 96365; 96367 ×2; 96375; J1940; J2930; J0456; J0696

== ENCOUNTER 2022-06-25 11:21 | Inpatient (IN) | payer MEDICARE ==
[2022-06-25] MEDS ORDERED: SODIUM CHLORIDE 0.9% 500 ML 500 ML IV STA (11:46)
--- NOTE | 2022-06-25 12:17 | ED ---
General Adult HPI - General Chief complaint: Syncope Stated complaint: syncope Time Seen by Provider: 06/25/22 11:46 Source: patient, EMS, RN notes reviewed Mode of arrival: EMS Limitations: no limitations - History of Present Illness Initial comments: 76-year-old female presents emergency Department with family for evaluation of a syncopal episode. Patient had near syncope episode last night after getting up to have another one today where she was not responding. Patient had no head injury. Patient does have a history of cardiac issues currently a glass. Patient denies any fevers chills denies any leg swelling. Patient denies any current chest pain. Denies any abdominal pain. - Related Data Home Medications Medication Instructions Recorded Confirmed levETIRAcetam [Keppra] 500 mg PO TID 07/21/18 05/29/22 Pantoprazole [Protonix] 40 mg PO DAILY 12/19/19 05/29/22 QUEtiapine [SEROquel] 25 mg PO BID@0700,1200 09/17/20 05/29/22 Insulin Glargine/Lixisenatide 20 units SQ DAILY 10/12/21 05/29/22 [Soliqua 100 Unit-33 Mcg/ml Pen] Acetaminophen Tab [Tylenol Tab] 1,000 mg PO HS 05/29/22 05/29/22 Acetaminophen Tab [Tylenol Tab] 500 mg PO DAILY 05/29/22 05/29/22 Albuterol Sulfate [Ventolin HFA] 2 puff INHALATION RT-Q6H PRN 05/29/22 05/29/22 Aspirin EC [Ecotrin Low Dose] 81 mg PO DAILY 05/29/22 05/29/22 Calcium Carbonate [Calcium] 600 mg PO DAILY 05/29/22 05/29/22 Calcium Carbonate [Tums] 500 mg PO ACHS PRN 05/29/22 05/29/22 Cholecalciferol [Vitamin D3 (25 25 mcg PO DAILY 05/29/22 05/29/22 Mcg = 1000 Iu)] Cholestyramine (with Sugar) 4 gm PO DAILY 05/29/22 05/29/22 [Cholestyramine Packet] Ferrous Sulfate [Feosol] 325 mg PO DAILY 05/29/22 05/29/22 Fluticasone/Umeclidin/Vilanter 1 puff INHALATION RT-DAILY 05/29/22 05/29/22 [Trelegy Ellipta 200-62.5-25] Ipratropium-Albuterol Nebulize 3 ml INHALATION RT-QID PRN 05/29/22 05/29/22 [Duoneb 0.5 mg-3 mg/3 ml Soln] Loperamide HCl [Imodium A-D] 2 mg PO QID PRN 05/29/22 05/29/22 hydrALAZINE HCL [Apresoline] 50 mg PO BID 05/29/22 05/29/22 modafiniL [Provigil] 100 mg PO DIRECTED 05/29/22 05/29/22 Previous Rx's Medication Instructions Recorded QUEtiapine [SEROquel] 100 mg PO HS 30 Days #30 tab 04/13/19 amLODIPine [Norvasc] 10 mg PO DAILY 90 Days #90 tab 03/19/22 Allergies Allergy/AdvReac Type Severity Reaction Status Date / Time Latex, Natural Rubber Allergy Itching Verified 05/29/22 14:41 sulfamethoxazole Allergy Rash/Hives Verified 05/29/22 14:41 [From Bactrim] trimethoprim [From Bactrim] Allergy Rash/Hives Verified 05/29/22 14:41 Review of Systems ROS Statement: Those systems with pertinent positive or pertinent negative responses have been documented in the HPI. ROS Other: All systems not noted in ROS Statement are negative. Past Medical History Past Medical History: Atrial Fibrillation, Asthma, Coronary Artery Disease (CAD), Cancer, Heart Failure, CVA/TIA, Diabetes Mellitus, Eye Disorder, Hypertension, Osteoarthritis (OA), Renal Disease, Seizure Disorder Additional Past Medical History / Comment(s): Brain mass/fall with intracranial bleed/hematome-surgery at [facility], seizure after brain surgery, paroxysmal Afib, DM type II, neuropathy bilateral feet, orthostatic hypotension, SSS with pacemaker, L1 compression fx, CKD stage III, blind in L eye, UTIs, lower GI bleed, gastritis, gastric erosion, CDiff colitis, skin cancer with removals, past L arm fracture, past R arm fracture x2. History of Any Multi-Drug Resistant Organisms: None Reported, MRSA Date of last positivie culture/infection: 01/26/19 MDRO Source:: URINE Past Surgical History: Cholecystectomy, Heart Catheterization, Heart Catheterization With Stent, Hysterectomy, Pacemaker Additional Past Surgical History / Comment(s): Evacuation of intracranial hematoma and ressection of hemorrhagic mass, pacemaker 2016, PCI with stent 06/06/18, EGD/colonoscopy, R eye corneal implant/cataract removal, EGD 06/2018, colonoscopy, skin cancer removal. Past Anesthesia/Blood Transfusion Reactions: No Reported Reaction Additional Past Anesthesia/Blood Transfusion Reaction / Comment(s): . Date of Last Stent Placement:: 06/06/18 Type of Cardiac Device: Permanent Pacemaker Device Placement Date:: 04/2016 Past Psychological History: Anxiety, Depression Smoking Status: Never smoker Past Alcohol Use History: None Reported Past Drug Use History: None Reported - Past Family History Mother Family Medical History: Cancer, COPD, Hypertension Additional Family Medical History / Comment(s): Mother had bone cancer. Father Family Medical History: Cancer, Hypertension Additional Family Medical History / Comment(s): Father had skin cancer. General Exam Limitations: no limitations General appearance: alert, in no apparent distress Head exam: Present: atraumatic, normocephalic, normal inspection Eye exam: Present: normal appearance, PERRL, EOMI. Absent: scleral icterus, conjunctival injection, periorbital swelling ENT exam: Present: normal exam, normal oropharynx, mucous membranes moist Neck exam: Present: normal inspection. Absent: tenderness, meningismus, lymphadenopathy Respiratory exam: Present: normal lung sounds bilaterally. Absent: respiratory distress, wheezes, rales, rhonchi, stridor Cardiovascular Exam: Present: regular rate, normal rhythm, normal heart sounds. Absent: systolic murmur, diastolic murmur, rubs, gallop, clicks GI/Abdominal exam: Present: soft, normal bowel sounds. Absent: distended, tenderness, guarding, rebound, rigid Neurological exam: Present: alert, oriented X3, CN II-XII intact, reflexes no rmal. Absent: motor sensory deficit Course Vital Signs 06/25/22 06/25/22 11:24 13:57 Temperature 97.1 F L Pulse Rate 67 69 Respiratory 18 18 Rate Blood Pressure 146/71 129/54 O2 Sat by Pulse 100 99 Oximetry EKG Findings - EKG Comments: EKG Findings:: EKG performed at 11:34 A. fib with a rate of 75 QRS 112 QT/QTC 420/457 - EKG Results: EKG: interpreted by ERMD Medical Decision Making - Medical Decision Making Was pt. sent in by a medical professional or institution (, [employer], [employer], urgent care, hospital, or jail...) When possible be specific @ -No Did you speak to anyone other than the patient for history (EMS, parent, family, police, friend...)? What history was obtained from this source @ -No Did you review nursing and triage notes (agree or disagree)? Why? @ -I reviewed and agree with nursing and triage notes Were old charts reviewed (outside hosp., previous admission, EMS record, old EKG, old radiological studies, urgent care reports/EKG's, jail records)? Report findings @ -Reviewed prior EKG and CBC and comp Differential Diagnosis (chest pain, altered mental status, abdominal pain women, abdominal pain men, vaginal bleeding, weakness, fever, dyspnea, syncope, headache, dizziness, GI bleed, back pain, seizure, CVA, palpatations, mental health, musculoskeletal)? @ -nDifferential Syncope: Valvular disease, hypertrophic cardiomyopathy, pulmonary embolism, tamponade, tachycardia, bradycardia, OK, hypovolemia, hemorrhage, dissection, anemia, intracranial hemorrhage, seizure, hypoglycemia, carbon monoxide poisoning, this is not meant to be an all-inclusive list.le EKG interpreted by me (3pts min.). @ -As above X-rays interpreted by me (1pt min.). @ -Chest x-ray shows no acute process CT interpreted by me (1pt min.). @ -None done U/S interpreted by me (1pt. min.). @ -None done What testing was considered but not performed or refused? (CT, X-rays, U/S, labs)? Why? @ -None What meds were considered but not given or refused? Why? @ -None Did you discuss the management of the patient with other professionals (professionals i.e. , [employer], [employer], lab, RT, psych nurse, long term care social worker, can crimper, teacher, senior loan officer, major case detective)? Give summary @ -Case discussed with Dr. Zamarripa for admission secondary to multiple syncopal episodes, acute kidney injury, dehydration Was smoking cessation discussed for >3mins.? @ -No Was critical care preformed (if so, how long)? @ -No Were there social determinants of health that impacted care today? How? (Homelessness, low income, unemployed, alcoholism, drug addiction, transportation, low edu. Level, literacy, decrease access to med. care, long term, rehab)? @ -No Was there de-escalation of care discussed even if they declined (Discuss DNR or withdrawal of care, Hospice)? DNR status @ -No What co-morbidities impacted this encounter? (DM, HTN, Smoking, COPD, CAD, Cancer, CVA, ARF, Chemo, Hep., AIDS, mental health diagnosis, sleep apnea, morbid obesity)? @ -Diabetes Was patient admitted / discharged? Hospital course, mention meds given and route, prescriptions, significant lab abnormalities, going to OR and other pertinent info. @ -Admitted to the hospital for multiple sick blood cells, dehydration acute kidney injury. Patient was started on maintenance fluids will have repeat laboratory studies Undiagnosed new problem with uncertain prognosis? @ -No Drug Therapy requiring intensive monitoring for toxicity (Heparin, Nitro, Insulin, Cardizem)? @ -No Were any procedures done? @ -No Diagnosis/symptom? @ -Syncope Acute, or Chronic, or Acute on Chronic? @ -Acute Uncomplicated (without systemic symptoms) or Complicated (systemic symptoms)? @ -complicated Side effects of treatment? @ -No Exacerbation, Progression, or Severe Exacerbation? @ -No Poses a threat to life or bodily function? How? (Chest pain, USA, OK, pneumonia, PE, COPD, DKA, ARF, appy, cholecystitis, CVA, Diverticulitis, Homicidal, Suicidal, threat to staff... and all critical care pts) @ -No - Lab Data Result diagrams: 06/25/22 12:26 06/25/22 12:26 Lab Results 06/25/22 06/25/22 06/25/22 Range/Units 12:26 12:26 12:26 WBC 5.3 (3.8-10.6) k/uL RBC 3.63 L (3.80-5.40) m/uL Hgb 10.3 L (11.4-16.0) gm/dL Hct 32.9 L (34.0-46.0) % MCV 90.7 (80.0-100.0) fL MCH 28.5 (25.0-35.0) pg MCHC 31.5 (31.0-37.0) g/dL RDW 14.9 (11.5-15.5) % Plt Count 149 L D (150-450) k/uL MPV 8.6 Neutrophils % 66 % Lymphocytes % 19 % Monocytes % 10 % Eosinophils % 1 % Basophils % 0 % Neutrophils # 3.5 (1.3-7.7) k/uL Lymphocytes # 1.0 (1.0-4.8) k/uL Monocytes # 0.5 (0-1.0) k/uL Eosinophils # 0.1 (0-0.7) k/uL Basophils # 0.0 (0-0.2) k/uL Hypochromasia Slight PT 10.8 (9.0-12.0) sec INR 1.0 (<1.2) APTT 27.3 (22.0-30.0) sec Sodium 140 (137-145) mmol/L Potassium 3.8 (3.5-5.1) mmol/L Chloride 94 L (98-107) mmol/L Carbon Dioxide 40 H (22-30) mmol/L Anion Gap 6 mmol/L BUN 46 H (7-17) mg/dL Creatinine 2.03 H (0.52-1.04) mg/dL Est GFR (CKD-EPI)AfAm 27 (>60 ml/min/1.73 sqM) Est GFR (CKD-EPI)NonAf 23 (>60 ml/min/1.73 sqM) Glucose 213 H (74-99) mg/dL Calcium 9.4 (8.4-10.2) mg/dL Magnesium 2.1 (1.6-2.3) mg/dL Total Bilirubin 0.5 (0.2-1.3) mg/dL AST 25 (14-36) U/L ALT 16 (4-34) U/L Alkaline Phosphatase 89 (38-126) U/L Troponin I (0.000-0.034) ng/mL Total Protein 6.3 (6.3-8.2) g/dL Albumin 4.1 (3.5-5.0) g/dL 06/25/22 Range/Units 12:26 WBC (3.8-10.6) k/uL RBC (3.80-5.40) m/uL Hgb (11.4-16.0) gm/dL Hct (34.0-46.0) % MCV (80.0-100.0) fL MCH (25.0-35.0) pg MCHC (31.0-37.0) g/dL RDW (11.5-15.5) % Plt Count (150-450) k/uL MPV Neutrophils % % Lymphocytes % % Monocytes % % Eosinophils % % Basophils % % Neutrophils # (1.3-7.7) k/uL Lymphocytes # (1.0-4.8) k/uL Monocytes # (0-1.0) k/uL Eosinophils # (0-0.7) k/uL Basophils # (0-0.2) k/uL Hypochromasia PT (9.0-12.0) sec INR (<1.2) APTT (22.0-30.0) sec Sodium (137-145) mmol/L Potassium (3.5-5.1) mmol/L Chloride (98-107) mmol/L Carbon Dioxide (22-30) mmol/L Anion Gap mmol/L BUN (7-17) mg/dL Creatinine (0.52-1.04) mg/dL Est GFR (CKD-EPI)AfAm (>60 ml/min/1.73 sqM) Est GFR (CKD-EPI)NonAf (>60 ml/min/1.73 sqM) Glucose (74-99) mg/dL Calcium (8.4-10.2) mg/dL Magnesium (1.6-2.3) mg/dL Total Bilirubin (0.2-1.3) mg/dL AST (14-36) U/L ALT (4-34) U/L Alkaline Phosphatase (38-126) U/L Troponin I 0.025 (0.000-0.034) ng/mL Total Protein (6.3-8.2) g/dL Albumin (3.5-5.0) g/dL Disposition Clinical Impression: Syncope, Weakness, CHAITANYA (acute kidney injury) Disposition: ADMITTED IP TO THIS HOSP Condition: Fair Referrals: Vikram Zamarripa MD [Primary Care Provider] - 1-2 days Time of Disposition: 14:16
[2022-06-25 12:47] LABS: Basophils % (A) 0 %; Eosinophils # (A) 0.1 k/uL (0-0.7); Eosinophils % (A) 1 %; HCT 32.9 % (34.0-46.0); HGB 10.3 gm/dL (11.4-16.0); Hypochromasia Slight; Lymphocytes % (A) 19 %; MCH 28.5 pg (25.0-35.0); MCHC 31.5 g/dL (31.0-37.0); MCV 90.7 fL (80.0-100.0); Mean Platelet Volume 8.6; Monocytes # (A) 0.5 k/uL (0-1.0); Monocytes % (A) 10 %; Neutrophils # (A) 3.5 k/uL (1.3-7.7); Neutrophils % (A) 66 %; RBC 3.63 m/uL (3.80-5.40); RDW 14.9 % (11.5-15.5); WBC 5.3 k/uL (3.8-10.6)
[2022-06-25 12:50] LABS: Partial Thromboplastin Time 27.3 sec (22.0-30.0); Prothrombin Time 10.8 sec (9.0-12.0)
[2022-06-25 12:51] LABS: Platelet Count 149 k/uL (150-450)
--- NOTE | 2022-06-25 13:35 | XR ---
EXAMINATION TYPE: XR chest 2V DATE OF EXAM: 06/25/2022 COMPARISON: Chest x-ray and CT May 29, 2022 HISTORY: Syncope and weakness. TECHNIQUE: Frontal and lateral views of the chest are obtained. FINDINGS: There is chronic parenchymal change without suspicious focal air space opacity, pleural ef fusion, or pneumothorax seen. Cardiomegaly with dual lead pacemaker redemonstrated. The osseous str uctures are demineralized. Old fractures to the bilateral proximal humeri are redemonstrated. Cholecy stectomy clips are redemonstrated on lateral view. IMPRESSION: Chronic changes and cardiomegaly without acute pulmonary process.
[2022-06-25 13:56] LABS: Albumin 4.1 g/dL (3.5-5.0); Calcium 9.4 mg/dL (8.4-10.2); Magnesium 2.1 mg/dL (1.6-2.3); Potassium 3.8 mmol/L (3.5-5.1); Total Bilirubin 0.5 mg/dL (0.2-1.3); Total Protein 6.3 g/dL (6.3-8.2)
[2022-06-25] MEDS ORDERED: NALOXONE 0.4 MG/ML 1 ML VIAL IV PRN (14:16)
[2022-06-25] MEDS: SODIUM CHLORIDE 0.9% 1,000 ML IV SCH (14:38)
[2022-06-25 17:48] LABS: Glucose,Whole Blood 231 mg/dL (70-110)
[2022-06-25 20:26] LABS: Glucose,Whole Blood 221 mg/dL (70-110)
[2022-06-25] MEDS: levETIRAcetam 500 MG TAB PO SCH (20:49)
[2022-06-25] MEDS: APIXABAN 5 MG TAB PO SCH (20:49)
[2022-06-25] MEDS: ATORVASTATIN 40 MG TAB PO SCH (20:49)
[2022-06-25] MEDS: QUEtiapine 100 MG TAB PO SCH (20:50)
[2022-06-25] MEDS: NON FORMULARY DRUG (Insulin Glargine/Lixisenatide [Soliqua 100 Unit-33 Mcg/Ml Pen] 3 ML In SQ SCH (21:28)
[2022-06-25] MEDS ORDERED: INSULIN DETEMIR (LEVEMIR) 100 UNIT/ML SYR SQ SCH (22:00)
[2022-06-26] MEDS: SODIUM CHLORIDE 0.9% 1,000 ML IV SCH ×2 (04:25→20:41)
[2022-06-26 07:36] LABS: Glucose,Whole Blood 181 mg/dL (70-110)
[2022-06-26] MEDS: IPRATROPIUM 0.5 MG/2.5 ML NEBU INHALATION SCH ×4 (07:54→20:07)
[2022-06-26] MEDS: SYMBICORT 80-4.5 MCG INHALER INHALATION SCH ×2 (07:54→20:08)
[2022-06-26] MEDS: ASPIRIN 81 MG PO SCH (08:47)
[2022-06-26] MEDS: QUEtiapine 25 MG TAB PO SCH (08:47)
[2022-06-26] MEDS: MULTIVITAMINS, THERA 1 EACH TAB PO SCH (08:47)
[2022-06-26] MEDS: PANTOPRAZOLE 40 MG TABLET PO SCH (08:47)
[2022-06-26] MEDS: APIXABAN 5 MG TAB PO SCH ×2 (08:47→20:42)
[2022-06-26] MEDS: FERROUS SULFATE 325 MG TAB PO SCH (08:47)
[2022-06-26] MEDS: levETIRAcetam 500 MG TAB PO SCH ×3 (08:48→20:42)
[2022-06-26] MEDS: amLODIPine 10 MG TAB PO SCH (08:48)
[2022-06-26] MEDS: CHOLESTYRAMINE (WITH SUGAR) 4 GM PACKET PO SCH (08:48)
[2022-06-26] MEDS: prednisoLONE ACETATE 1% OPHTH DROPS 5 ML BTL BOTH EYES SCH (11:56)
[2022-06-26 12:20] LABS: Glucose,Whole Blood 212 mg/dL (70-110)
[2022-06-26 17:28] LABS: Glucose,Whole Blood 212 mg/dL (70-110)
[2022-06-26] MEDS: NON FORMULARY DRUG (Insulin Glargine/Lixisenatide [Soliqua 100 Unit-33 Mcg/Ml Pen] 3 ML In SQ SCH (20:42)
[2022-06-26] MEDS: QUEtiapine 100 MG TAB PO SCH (20:42)
[2022-06-26] MEDS: ATORVASTATIN 40 MG TAB PO SCH (20:42)
[2022-06-26 20:45] LABS: Glucose,Whole Blood 281 mg/dL (70-110)
[2022-06-26] MEDS: INSULIN DETEMIR (LEVEMIR) 100 UNIT/ML SYR SQ SCH (21:25)
--- NOTE | 2022-06-26 23:35 | HP ---
HISTORY AND PHYSICAL HISTORY OF PRESENT ILLNESS: This 76-year-old white female came to the emergency room with syncopal episode 1 after another. She was not responding. She had no head injury. She came to the hospital, noncompliant with wearing her oxygen at home for end-stage COPD and CHF. She came in dehydrated, she was responding some with fluids overnight. We admitted her to the hospital to rule out seizure, she has a history of seizures. MEDICATIONS: 1. Keppra 500 t.i.d. 2. Protonix 40 daily. 3. Seroquel 25 b.i.d. 4. Soliqua 20 units daily. 5. Ventolin HFA 2 puffs q.6 hours. 6. Aspirin 81 mg daily. 7. Calcium carbonate 500 mg b.i.d. 8. Trelegy inhaler 1 puff daily. 9. DuoNeb q.i.d. 10.Hydralazine 50 b.i.d. 11.Provigil 100 as directed. ALLERGIES: Latex, sulfa, Bactrim. REVIEW OF SYSTEMS: A 14-point review of systems otherwise negative. PAST MEDICAL HISTORY: Atrial fibrillation, asthma, coronary artery disease, cancer, heart failure, CVA, TIA, diabetes, ophthalmologic disorders, hypertension, osteoarthritis, renal disease, seizure disorder. FAMILY HISTORY: Mother, cancer, COPD, hypertension. Father, cancer, hypertension. PHYSICAL EXAMINATION: GENERAL: Temperature 97.1, pulse 60 to 69, respiratory rate 16 to 18, blood pressure is 120s to 140s over 50s to 70s, and O2 99% to 100%. CARDIOVASCULAR: S1, S2. LUNGS: Decreased breath sounds x4. PSYCH: Poor mood and affect. NEUROLOGIC: Cranial nerves intact. HEENT: Ophthalmologic, pupils equal, round, and reactive. ASSESSMENT: COPD exacerbation, dehydration, altered mental status. Psych, rule out urosepsis, rule out chronic hypoxemia versus diastolic heart failure. The patient has COPD exacerbation versus metabolic encephalopathy from UTI. Prognosis guarded. Please see further orders. Infectious Disease, Neurology consult. Prognosis guarded. MMODL / IJN: [id number] /
[2022-06-27 07:44] LABS: Glucose,Whole Blood 207 mg/dL (70-110)
[2022-06-27] MEDS: PANTOPRAZOLE 40 MG TABLET PO SCH (08:04)
[2022-06-27] MEDS: MULTIVITAMINS, THERA 1 EACH TAB PO SCH (08:04)
[2022-06-27] MEDS: ASPIRIN 81 MG PO SCH (08:04)
[2022-06-27] MEDS: SODIUM CHLORIDE 0.9% 1,000 ML IV SCH ×2 (08:05→20:53)
[2022-06-27] MEDS: QUEtiapine 25 MG TAB PO SCH (08:05)
[2022-06-27] MEDS: APIXABAN 5 MG TAB PO SCH ×2 (08:05→20:52)
[2022-06-27] MEDS: FERROUS SULFATE 325 MG TAB PO SCH (08:05)
[2022-06-27] MEDS: amLODIPine 10 MG TAB PO SCH (08:05)
[2022-06-27] MEDS: levETIRAcetam 500 MG TAB PO SCH (08:05)
[2022-06-27] MEDS: CHOLESTYRAMINE (WITH SUGAR) 4 GM PACKET PO SCH (08:06)
[2022-06-27] MEDS: IPRATROPIUM 0.5 MG/2.5 ML NEBU INHALATION SCH ×4 (08:25→19:53)
[2022-06-27] MEDS: SYMBICORT 80-4.5 MCG INHALER INHALATION SCH ×2 (08:26→19:53)
[2022-06-27 09:27] LABS: Hypochromasia Slight; MCH 28.1 pg (25.0-35.0); MCHC 31.7 g/dL (31.0-37.0); MCV 88.7 fL (80.0-100.0); Mean Platelet Volume 8.4; Platelet Count 148 k/uL (150-450); Poikilocytosis Slight; RBC 2.71 m/uL (3.80-5.40); RDW 15.6 % (11.5-15.5); WBC 4.9 k/uL (3.8-10.6)
[2022-06-27 09:37] LABS: ALT 12 U/L (4-34); AST 17 U/L (14-36); African American GFR (CKD) 44 (>60 ml/min/1.73 sqM); Albumin/Globulin Ratio 1.5; Alkaline Phosphatase 70 U/L (38-126); Anion Gap 5 mmol/L; Blood Urea Nitrogen 28 mg/dL (7-17); Calcium 7.7 mg/dL (8.4-10.2); Carbon Dioxide 33 mmol/L (22-30); Chloride 100 mmol/L (98-107); Glucose 173 mg/dL (74-99); Non-African American GFR(CKD) 38 (>60 ml/min/1.73 sqM); Potassium 3.4 mmol/L (3.5-5.1); Sodium 138 mmol/L (137-145); Total Bilirubin 0.3 mg/dL (0.2-1.3)
[2022-06-27 09:42] LABS: HGB 7.6 gm/dL (11.4-16.0)
[2022-06-27 12:47] LABS: Glucose,Whole Blood 223 mg/dL (70-110)
--- NOTE | 2022-06-27 13:07 | P.CNNES ---
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 Patient does not recall the episode exactly but she stated that the 2 days ago she is at home and she was being helped by her son score the bathroom and all of a sudden she passed out and she does not recall the episode. She denies and being told that she had any jerk in of any extremities, any foaming around the mouth, any eye rolling back or any foaming or drooling of the mouth. She denies any tongue soreness or tongue bite. Denied any urinary or bowel incontinence. She does not recall how long the episode lasted for per she denies any aura prior to the episode that. I does not recall she had any post ictal confusion or for how long. According to the ED note she did not have any head injury. She stated that she had a seizure that was many years back and has not had any seizures after that. She is on Keppra 500 mg 1 tablet 3 times a day. It seems as a result of the syncopal episode she had a home she bruised h er upper extremity distally and has her forearms wrapped mostly the right upper. Otherwise she feels she is doing drastically better. Denies of any headache, nausea vomiting any focal weakness. Of note patient had a routine EEG in our facility on August 2019 and so reported as abnormal. Slightly suppressed background with ad disorganization, suggestive of encephalopathy or medication effect. Higher amplitude activity with focal slowing over the right central parietal region suggestive of breach rhythm related to previous craniotomy defect. No definitive epileptiform activity was seen. Some other workup during his hospital visit consisted of: White blood cell on presentation is normal light. Initial serum glucose 213, sodium, magnesium, calcium are within normal limits. Initial creatinine is 2.03 most recent one is 1.35 and patient has underlying chronic kidney insufficiency and currently is back to her baseline. Review of Systems Review of system: The 12 point system was reviewed and apparent positive and negative per HPI. Past Medical History Past Medical History: Atrial Fibrillation, Asthma, Coronary Artery Disease (CAD), Cancer, Heart Failure, CVA/TIA, Diabetes Mellitus, Eye Disorder, Hypertension, Osteoarthritis (OA), Renal Disease, Seizure Disorder Additional Past Medical History / Comment(s): Brain mass/fall with intracranial bleed/hematome-surgery at [facility], seizure after brain surgery, paroxysmal Afib, DM type II, neuropathy bilateral feet, orthostatic hypotension, SSS with pacemaker, L1 compression fx, CKD stage III, blind in L eye, UTIs, lower GI bleed, gastritis, gastric erosion, CDiff colitis, skin cancer with removals, past L arm fracture, past R arm fracture x2. History of Any Multi-Drug Resistant Organisms: MRSA Date of last positivie culture/infection: 01/26/19 MDRO Source:: URINE Past Surgical History: Cholecystectomy, Heart Catheterization, Heart Catheterization With Stent, Hysterectomy, Pacemaker Additional Past Surgical History / Comment(s): Evacuation of intracranial hematoma and ressection of hemorrhagic mass, pacemaker 2016, PCI with stent 06/06/18, EGD/colonoscopy, R eye corneal implant/cataract removal, EGD 06/2018, colonoscopy, skin cancer removal. Past Anesthesia/Blood Transfusion Reactions: No Reported Reaction Additional Past Anesthesia/Blood Transfusion Reaction / Comment(s): . Date of Last Stent Placement:: 06/06/18 Type of Cardiac Device: Permanent Pacemaker Device Placement Date:: 04/2016 Past Psychological History: Anxiety, Depression Additional Psychological History / Comment(s): Pt has her son. She uses a walker and has a wheelchair for longer distaces. She no longer drives, her family drives her to [employer]. Her son manages her medications. denies any thoughts/plans of suicide. Smoking Status: Never smoker Past Alcohol Use History: None Reported Past Drug Use History: None Reported - Past Family History Mother Family Medical History: Cancer, COPD, Hypertension Additional Family Medical History / Comment(s): Mother had bone cancer. Father Family Medical History: Cancer, Hypertension Additional Family Medical History / Comment(s): Father had skin cancer. Medications and Allergies Home Medications Medication Instructions Recorded Confirmed Type levETIRAcetam [Keppra] 500 mg PO TID 07/21/18 06/25/22 History QUEtiapine [SEROquel] 100 mg PO HS 30 Days #30 tab 04/13/19 06/25/22 Rx Pantoprazole [Protonix] 40 mg PO DAILY 12/19/19 06/25/22 History QUEtiapine [SEROquel] 25 mg PO DAILY 09/17/20 06/25/22 History Insulin Glargine/Lixisenatide 20 units SQ HS 10/12/21 06/25/22 History [Soliqua 100 Unit-33 Mcg/ml Pen] amLODIPine [Norvasc] 10 mg PO DAILY 90 Days #90 tab 03/19/22 06/25/22 Rx Albuterol Sulfate [Ventolin HFA] 2 puff INHALATION RT-Q6H PRN 05/29/22 06/25/22 History Aspirin EC [Ecotrin Low Dose] 81 mg PO DAILY 05/29/22 06/25/22 History Cholestyramine (with Sugar) 4 gm PO DAILY 05/29/22 06/25/22 History [Cholestyramine Packet] Ferrous Sulfate [Feosol] 325 mg PO DAILY 05/29/22 06/25/22 History Fluticasone/Umeclidin/Vilanter 1 puff INHALATION RT-DAILY 05/29/22 06/25/22 History [Trelegy Ellipta 200-62.5-25] hydrALAZINE HCL [Apresoline] 50 mg PO TID 05/29/22 06/25/22 History Apixaban [Eliquis] 5 mg PO BID 06/25/22 06/25/22 History Atorvastatin [Lipitor] 40 mg PO HS 06/25/22 06/25/22 History Furosemide [Lasix] 40 mg PO DAILY 06/25/22 06/25/22 History Multivit-Min/FA/Lycopen/Lutein 1 tab PO DAILY 06/25/22 06/25/22 History [Centrum Silver Tablet] Prednisolone Acetate/Pf 1 drop BOTH EYES DIRECTED 06/25/22 06/25/22 History [Prednisolone Acet 1% Eye Drop] Allergies Allergy/AdvReac Type Severity Reaction Status Date / Time Latex, Natural Rubber Allergy Itching Verified 06/25/22 14:51 sulfamethoxazole Allergy Rash/Hives Verified 06/25/22 14:51 [From Bactrim] trimethoprim [From Bactrim] Allergy Rash/Hives Verified 06/25/22 14:51 Physical Examination - Vital Signs Vital Signs: Vital Signs Temp Pulse Pulse Resp BP Pulse Ox 06/27/22 12:27 64 06/27/22 12:18 68 06/27/22 08:37 100 06/27/22 08:35 80 06/27/22 08:26 78 06/27/22 07:41 98.1 F 61 18 117/48 98 06/27/22 03:39 98.3 F 66 18 131/66 99 06/26/22 20:19 80 06/26/22 20:09 80 06/26/22 19:51 98.3 F 76 18 157/87 92 L 06/26/22 19:30 18 06/26/22 15:37 76 06/26/22 15:19 76 Intake and Output 06/26/22 06/27/22 06/27/22 22:59 06:59 14:59 Intake Total 240 950 Output Total 500 Balance 240 450 Intake: Intake, IV Titration 950 Amount Sodium Chloride 0.9% 1, 900 000 ml @ 75 mls/hr IV . [id number] [facility] Rx#:[id number] cefTRIAXone 1 gm In 50 Sodium Chloride 0.9% 50 ml @ 100 mls/hr IVPB Q24HR [facility] Rx#:[id number] Oral 240 Output: Urine 500 Other: Voiding Method External Catheter External Catheter GENERAL: The patient is sitting in a recliner chair and is not in acute distress. NEUROLOGICAL: Higher mental function: The patient is awake, alert, oriented to self, place and time. Patient is following commands. No aphasia and no neglect. Cranial nerves: The pupils are round, equal and reactive to light and accommodation. Visual aly: Hard to assess because of cooperation but feel has defect of uppers. Extraocular movement is intact no nystagmus is noted. Facial sensation is normal to touch throughout. The facial strength is normal throughout. Hearing is moderately decreased bilaterally to hand rub. Tongue is midline and moved [id number] without any difficulty. No dysarthria is noted. Shoulder shrug is normal bilaterally. Motor: The strength is limited in assessment but has arms wrapped from fall but was raising the uppers and lowers symmetrically. Normal tone and bulk. Cerebellum: Normal finger to nose bilaterally. Sensation: Sensation is normal to touch throughout. Reflexes (right/left): Unable to assess. Plantars are has toe defect so unable to fully assess for upgoing toes. . Results - Laboratory Findings CBC and BMP: 06/27/22 08:00 06/27/22 08:00 Abnormal Lab Findings: Abnormal Labs 06/25/22 06/25/22 06/25/22 12:26 12:26 17:46 RBC 3.63 L Hgb 10.3 L Hct 32.9 L RDW Plt Count 149 L D Potassium Chloride 94 L Carbon Dioxide 40 H BUN 46 H Creatinine 2.03 H Glucose 213 H POC Glucose (mg/dL) 231 H Calcium Total Protein Albumin Procalcitonin 06/25/22 06/26/22 06/26/22 20:24 07:35 12:19 RBC Hgb Hct RDW Plt Count Potassium Chloride Carbon Dioxide BUN Creatinine Glucose POC Glucose (mg/dL) 221 H 181 H 212 H Calcium Total Protein Albumin Procalcitonin 06/26/22 06/26/22 06/26/22 17:05 17:27 20:43 RBC Hgb Hct RDW Plt Count Potassium Chloride Carbon Dioxide BUN Creatinine Glucose POC Glucose (mg/dL) 212 H 281 H Calcium Total Protein Albumin Procalcitonin 0.17 H 06/27/22 06/27/22 06/27/22 07:43 08:00 08:00 RBC 2.71 L Hgb 7.6 L D Hct 24.0 L RDW 15.6 H Plt Count 148 L Potassium 3.4 L Chloride Carbon Dioxide 33 H BUN 28 H Creatinine 1.35 H Glucose 173 H POC Glucose (mg/dL) 207 H Calcium 7.7 L Total Protein 5.0 L Albumin 3.0 L Procalcitonin Assessment and Plan Assessment: This is a 76-year-old woman with a history of a 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 Patient does not recall the events but the she stated that she was notified that she didn't have any jerk in of any extremities, foaming around the mouth, urinary bowel incontinence, tongue bite. Syncopal episode unknown exact etiology. Rule out seizure History of seizure Encephalomalacia over predominantly right parietal/occipital region due to history of intracranial bleed/questionable mass and had surgical resection and [place] History of atrial fibrillation on eliquis and has a pacemaker Diabetes mellitus Chronic kidney insufficiency Hypertension History of lower GI bleed Plan: An EEG is ordered by the primary team is pending I ordered CT of the head that. Patient is on Keppra 500 mg 1 tablet 3 times a day and I changed it to make it simpler for the patient to 750 mg 1 tablet twice a day. I ordered Keppra level. I will not go up on Keppra because of the chronic kidney insufficiency. If needed recommend Vimpat 50 mg 1 tablet twice a day but will wait until the routine EEG comes back and all make a final decision. If EEG is negative for seizure or epileptiform discharges I recommended a prolonged EEG or even an epilepsy monitoring unit to assess whether the patient actually have any underlying seizures or discharges not being captured on the routine EEG. Consider cardiology consultation We'll defer the rest of the medical management to primary team Upon discharge recommend the patient to follow-up while with a neurologist within 1-2 weeks as an outpatient The plan was discussed with the patient and her nurse. Thank you for the consultation. Time with Patient: Greater than 30
[2022-06-27 15:57] LABS: Eosinophils # (M) 0.05 k/uL (0-0.7); Lymphocytes # (M) 1.52 k/uL (1.0-4.8); Metamyelocytes # (M) 0.05 k/uL (0); Metamyelocytes % 1 %; Monocytes # (M) 0.44 k/uL (0-1.0); Myelocytes # (M) 0.05 k/uL (0); Myelocytes % 1 %; Neutrophils # (M) 2.89 k/uL (1.3-7.7); Neutrophils % (M) 59 %; Nucleated Red Blood Cells 0 /100 WBC (0-0); Total Cells Counted 200
[2022-06-27 16:53] LABS: Appearance,Urine Clear (Clear); Bacteria,Urine Rare /hpf; Bilirubin,Urine Negative (Negative); Blood,Urine Negative (Negative); Color,Urine Yellow; Glucose,Urine (UA) Negative (Negative); Ketones,Urine Negative (Negative); Leukocyte Esterase,Urine Large (Negative); Nitrite,Urine Negative (Negative); PH, Urine 5.5 (5.0-8.0); Protein,Urine Trace (Negative); RBC,Urine 1 /hpf (0-5); Specific Gravity,Urine 1.016 (1.001-1.035); Squamous Epithelial Cell,Urine <1 /hpf (0-4); Urobilinogen,Urine <2.0 mg/dL (<2.0); WBC,Urine 21 /hpf (0-5)
[2022-06-27 17:26] LABS: Glucose,Whole Blood 204 mg/dL (70-110)
--- NOTE | 2022-06-27 19:38 | CT ---
EXAMINATION TYPE: CT brain wo con CT DLP: 1121 mGycm, Automated exposure control for dose reduction was used. DATE OF EXAM: 06/27/2022 4:26 PM COMPARISON: Multiple priors 03/18/2022. CLINICAL INDICATION:Female, 76 years old with history of syncope. Unknown cause, ams TECHNIQUE: Brain: Axial CT images of the brain were obtained with coronal and sagittal reformats created and rev iewed. Contrast used: None. Oral contrast used: None. FINDINGS: Brain: Motion limited exam. Extra-axial spaces: No abnormal extra-axial fluid collections. Ventricular system: Within normal limits Cerebral parenchyma: Prior surgical changes to the right parietal, occipital and temporal lobes..] No acute intraparenchymal hemorrhage or mass effect. The jolly-white junction is well differentiated. Cerebellum: Unremarkable. Mass effect: No evidence of midline shift. Intracranial vasculature: unremarkable Soft tissues: Normal. Calvarium/osseous structures: No depressed skull fracture. Paranasal sinuses and mastoid air cells: Mild scattered paranasal sinus disease. Visualized orbits: Orbital contents are intact. IMPRESSION: Motion limited exam with remote intervention changes to the right parietal/temporal/occipital lobes. No obvious acute intracranial process at this time. No significant change from prior.
[2022-06-27 20:34] LABS: Glucose,Whole Blood 236 mg/dL (70-110)
[2022-06-27] MEDS: INSULIN DETEMIR (LEVEMIR) 100 UNIT/ML SYR SQ SCH (20:51)
[2022-06-27] MEDS: LACOSAMIDE 50 MG TABLET PO SCH (20:51)
[2022-06-27] MEDS: ATORVASTATIN 40 MG TAB PO SCH (20:52)
[2022-06-27] MEDS: QUEtiapine 100 MG TAB PO SCH (20:52)
[2022-06-27] MEDS ORDERED: levETIRAcetam 500 MG TAB PO SCH (21:00)
--- NOTE | 2022-06-27 22:17 | P.CONS ---
History of Present Illness - Reason for Consult Consult date: 06/27/22 - History of Present Illness Patient is a 76-year-old female with a past medical history noted for coronary disease heart failure CVA TIA diabetes mellitus atrial fibrillation presenting to the hospital for a syncopal episode patient did have a fall and has developed laceration to the right forearm area which apparently has been stitched down in the ER patient denies any high-grade fever or any chills denies any headache or URI symptoms no chest pain or shortness with occasional cough no abdominal pain no diarrhea no urinary symptoms has been complaining some pain to the right forearm more of a dull aching 3-4 out of 10 no radiation patient represented to the hospital was afebrile no fever has been recorded subsequently patient did have a normal white count BUN/creatinine has been mildly elevated liver exams are normal she did have a positive UA with large leukocyte Estrace 21 WBC concerning for UTI patient was started on Rocephin infectious disease was consulted for further management of antibiotic therapy Past Medical History Past Medical History: Atrial Fibrillation, Asthma, Coronary Artery Disease (CAD), Cancer, Heart Failure, CVA/TIA, Diabetes Mellitus, Eye Disorder, Hypertension, Osteoarthritis (OA), Renal Disease, Seizure Disorder Additional Past Medical History / Comment(s): Brain mass/fall with intracranial bleed/hematome-surgery at [facility], seizure after brain surgery, paroxysmal Afib, DM type II, neuropathy bilateral feet, orthostatic hypotension, SSS with pacemaker, L1 compression fx, CKD stage III, blind in L eye, UTIs, lower GI bleed, gastritis, gastric erosion, CDiff colitis, skin cancer with removals, past L arm fracture, past R arm fracture x2. History of Any Multi-Drug Resistant Organisms: MRSA Year Discovered:: 01/26/19 MDRO Source:: URINE Past Surgical History: Cholecystectomy, Heart Catheterization, Heart Catheterization With Stent, Hysterectomy, Pacemaker Additional Past Surgical History / Comment(s): Evacuation of intracranial hematoma and ressection of hemorrhagic mass, pacemaker 2016, PCI with stent 06/06/18, EGD/colonoscopy, R eye corneal implant/cataract removal, EGD 06/2018, colonoscopy, skin cancer removal. Past Anesthesia/Blood Transfusion Reactions: No Reported Reaction Additional Past Anesthesia/Blood Transfusion Reaction / Comm: . Date of Last Stent Placement:: 06/06/18 Type of Cardiac Device: Permanent Pacemaker Device Placement Date:: 04/2016 Past Psychological History: Anxiety, Depression Additional Psychological History / Comment(s): Pt has her son. She uses a walker and has a wheelchair for longer distaces. She no longer drives, her family drives her to appts. Her son manages her medications. denies any thoughts/plans of suicide. Smoking Status: Never smoker Past Alcohol Use History: None Reported Past Drug Use History: None Reported - Past Family History Mother Family Medical History: Cancer, COPD, Hypertension Additional Family Medical History / Comment(s): Mother had bone cancer. Father Family Medical History: Cancer, Hypertension Additional Family Medical History / Comment(s): Father had skin cancer. Medications and Allergies Home Medications Medication Instructions Recorded Confirmed Type levETIRAcetam [Keppra] 500 mg PO TID 07/21/18 06/25/22 History QUEtiapine [SEROquel] 100 mg PO HS 30 Days #30 tab 04/13/19 06/25/22 Rx Pantoprazole [Protonix] 40 mg PO DAILY 12/19/19 06/25/22 History QUEtiapine [SEROquel] 25 mg PO DAILY 09/17/20 06/25/22 History Insulin Glargine/Lixisenatide 20 units SQ HS 10/12/21 06/25/22 History [Soliqua 100 Unit-33 Mcg/ml Pen] amLODIPine [Norvasc] 10 mg PO DAILY 90 Days #90 tab 03/19/22 06/25/22 Rx Albuterol Sulfate [Ventolin HFA] 2 puff INHALATION RT-Q6H PRN 05/29/22 06/25/22 History Aspirin EC [Ecotrin Low Dose] 81 mg PO DAILY 05/29/22 06/25/22 History Cholestyramine (with Sugar) 4 gm PO DAILY 05/29/22 06/25/22 History [Cholestyramine Packet] Ferrous Sulfate [Feosol] 325 mg PO DAILY 05/29/22 06/25/22 History Fluticasone/Umeclidin/Vilanter 1 puff INHALATION RT-DAILY 05/29/22 06/25/22 History [Trelegy Ellipta 200-62.5-25] hydrALAZINE HCL [Apresoline] 50 mg PO TID 05/29/22 06/25/22 History Apixaban [Eliquis] 5 mg PO BID 06/25/22 06/25/22 History Atorvastatin [Lipitor] 40 mg PO HS 06/25/22 06/25/22 History Furosemide [Lasix] 40 mg PO DAILY 06/25/22 06/25/22 History Multivit-Min/FA/Lycopen/Lutein 1 tab PO DAILY 06/25/22 06/25/22 History [Centrum Silver Tablet] Prednisolone Acetate/Pf 1 drop BOTH EYES DIRECTED 06/25/22 06/25/22 History [Prednisolone Acet 1% Eye Drop] Allergies Allergy/AdvReac Type Severity Reaction Status Date / Time Latex, Natural Rubber Allergy Itching Verified 06/25/22 14:51 sulfamethoxazole Allergy Rash/Hives Verified 06/25/22 14:51 [From Bactrim] trimethoprim [From Bactrim] Allergy Rash/Hives Verified 06/25/22 14:51 Physical Exam Vitals: Vital Signs Temp Pulse Pulse Resp BP Pulse Ox 06/27/22 08:37 100 06/27/22 08:35 80 06/27/22 08:26 78 06/27/22 07:41 98.1 F 61 18 117/48 98 06/27/22 03:39 98.3 F 66 18 131/66 99 06/26/22 20:19 80 06/26/22 20:09 80 06/26/22 19:51 98.3 F 76 18 157/87 92 L 06/26/22 19:30 18 06/26/22 15:37 76 06/26/22 15:19 76 06/26/22 12:18 97.9 F 62 16 118/54 99 06/26/22 12:00 84 06/26/22 11:47 92 Intake and Output 06/26/22 06/27/22 06/27/22 22:59 06:59 14:59 Intake Total 240 950 Output Total 500 Balance 240 450 Intake: Intake, IV Titration 950 Amount Sodium Chloride 0.9% 1, 900 000 ml @ 75 mls/hr IV . [id number] [facility] Rx#:[id number] cefTRIAXone 1 gm In 50 Sodium Chloride 0.9% 50 ml @ 100 mls/hr IVPB Q24HR [facility] Rx#:[id number] Oral 240 Output: Urine 500 Other: Voiding Method External Catheter External Catheter Results CBC & Chem 7: 06/27/22 08:00 06/27/22 08:00 Labs: Abnormal Lab Results - Last 24 Hours (Table) 06/26/22 06/26/22 06/26/22 Range/Units 12:19 17:05 17:27 RBC (3.80-5.40) m/uL Hgb (11.4-16.0) gm/dL Hct (34.0-46.0) % RDW (11.5-15.5) % Plt Count (150-450) k/uL Potassium (3.5-5.1) mmol/L Carbon Dioxide (22-30) mmol/L BUN (7-17) mg/dL Creatinine (0.52-1.04) mg/dL Glucose (74-99) mg/dL POC Glucose (mg/dL) 212 H 212 H (70-110) mg/dL Calcium (8.4-10.2) mg/dL Total Protein (6.3-8.2) g/dL Albumin (3.5-5.0) g/dL Procalcitonin 0.17 H (0.02-0.09) ng/mL 06/26/22 06/27/22 06/27/22 Range/Units 20:43 07:43 08:00 RBC 2.71 L (3.80-5.40) m/uL Hgb 7.6 L D (11.4-16.0) gm/dL Hct 24.0 L (34.0-46.0) % RDW 15.6 H (11.5-15.5) % Plt Count 148 L (150-450) k/uL Potassium (3.5-5.1) mmol/L Carbon Dioxide (22-30) mmol/L BUN (7-17) mg/dL Creatinine (0.52-1.04) mg/dL Glucose (74-99) mg/dL POC Glucose (mg/dL) 281 H 207 H (70-110) mg/dL Calcium (8.4-10.2) mg/dL Total Protein (6.3-8.2) g/dL Albumin (3.5-5.0) g/dL Procalcitonin (0.02-0.09) ng/mL 04/26/23 Range/Units 08:00 RBC (3.80-5.40) m/uL Hgb (11.4-16.0) gm/dL Hct (34.0-46.0) % RDW (11.5-15.5) % Plt Count (150-450) k/uL Potassium 3.4 L (3.5-5.1) mmol/L Carbon Dioxide 33 H (22-30) mmol/L BUN 28 H (7-17) mg/dL Creatinine 1.35 H (0.52-1.04) mg/dL Glucose 173 H (74-99) mg/dL POC Glucose (mg/dL) (70-110) mg/dL Calcium 7.7 L (8.4-10.2) mg/dL Total Protein 5.0 L (6.3-8.2) g/dL Albumin 3.0 L (3.5-5.0) g/dL Procalcitonin (0.02-0.09) ng/mL Assessment and Plan Plan: 1patient presented hospital with a syncopal episode and has developed laceration to the right forearm complaining of weakness some vague urinary symptoms did have a positive UA with concern for possible component of UTI likely from enteric gram-negative pathogen 2-patient to continue with Rocephin while waiting for the culture to finalize 3-gentle IV fluid We will follow on clinical condition and cultures to further adjust medication if needed Thank you for this consultation we will follow the patient along with you Time with Patient: Greater than 30
--- NOTE | 2022-06-28 02:14 | EEG ---
ELECTROENCEPHALOGRAM REPORT CLINICAL HISTORY: This is a 76-year-old woman, history of seizure, encephalomalacia over the right parieto-occipital region, status post resection, who presented because of syncopal episode outside the hospital. The video EEG is obtained to evaluate for seizure epileptiform activity. RELEVANT MEDICATION: Keppra. EEG TYPE: A routine 21-channel EEG is performed with video using the 10/20 electrode placement system. DESCRIPTION: Wakefulness is obtained. During awake state, the posterior-dominant rhythm consists of predominantly low voltage to slight moderate voltage of posterior dominant rhythm of 9 hertz activity. There is no physiological stage 2 sleep architecture. There is a larger amplitude activity over the right central-parietal region with delta to theta slowing. Interictal and ictal: None. ACTIVATION PROCEDURE: Photic stimulation did not evoke a posterior driving response. There is no abnormality during the photic stimulation. Hyperventilation is not performed. CLINICAL INTERPRETATION: This is an abnormal routine EEG. There is high amplitude activity with focal slowing over the right central-parietal region consistent with the patient's breach rhythm due to previous skull defect. Otherwise, there is no epileptiform discharge or seizure on the EEG. Clinical correlation is recommended. MMODL / IJN: [id number] / MTDD
[2022-06-28 03:37] LABS: % Iron Saturation 9.67 (12.00-45.00)
--- NOTE | 2022-06-28 03:44 | PN ---
PROGRESS NOTE SUBJECTIVE: She is a 76-year-old white female with altered mental status. She has dehydration. She has large UTI. Urine culture is pending. We started her on Rocephin. She has with a hemoglobin low of 7.6 for which we are going to get Hematology involved. She remains on her medications for oxygen at night, breathing treatments, Keppra for seizures, Protonix for GERD, Norvasc for hypertension. OBJECTIVE: CARDIOVASCULAR: S1, S2. LUNGS: Transmitted upper sounds. HEMATOLOGY: Negative for Homans. PSYCH: Fair mood and affect. EXTREMITIES: Generalized weakness in 4 extremities. ASSESSMENT: Metabolic encephalopathy secondary to dehydration, UTI, severe anemia with . We will get Hematology involved. Possibly replace iron. Please see further orders. Prognosis is guarded. MMODL / IJN: [id number] /
[2022-06-28 07:36] LABS: Basophils % (A) 0 %; Eosinophils # (A) 0.1 k/uL (0-0.7); Eosinophils % (A) 2 %; HCT 23.4 % (34.0-46.0); HGB 7.5 gm/dL (11.4-16.0); Hypochromasia Moderate; Lymphocytes # (A) 1.5 k/uL (1.0-4.8); Lymphocytes % (A) 32 %; MCH 28.7 pg (25.0-35.0); MCHC 32.1 g/dL (31.0-37.0); MCV 89.5 fL (80.0-100.0); Mean Platelet Volume 8.2; Monocytes # (A) 0.4 k/uL (0-1.0); Monocytes % (A) 8 %; Neutrophils # (A) 2.6 k/uL (1.3-7.7); Neutrophils % (A) 55 %; Platelet Count 162 k/uL (150-450); Poikilocytosis Slight; RBC 2.62 m/uL (3.80-5.40); RDW 15.5 % (11.5-15.5); WBC 4.8 k/uL (3.8-10.6)
[2022-06-28 07:37] LABS: Glucose,Whole Blood 174 mg/dL (70-110)
[2022-06-28] MEDS: IPRATROPIUM 0.5 MG/2.5 ML NEBU INHALATION SCH ×4 (08:31→18:25)
[2022-06-28] MEDS: SYMBICORT 80-4.5 MCG INHALER INHALATION SCH ×2 (08:32→18:25)
[2022-06-28] MEDS: PANTOPRAZOLE 40 MG TABLET PO SCH (08:54)
[2022-06-28] MEDS: QUEtiapine 25 MG TAB PO SCH (08:54)
[2022-06-28] MEDS: MULTIVITAMINS, THERA 1 EACH TAB PO SCH (08:54)
[2022-06-28] MEDS: ASPIRIN 81 MG PO SCH (08:54)
[2022-06-28] MEDS: FERROUS SULFATE 325 MG TAB PO SCH (08:54)
[2022-06-28] MEDS: APIXABAN 5 MG TAB PO SCH ×2 (08:54→20:13)
[2022-06-28] MEDS: LACOSAMIDE 50 MG TABLET PO SCH ×2 (08:55→20:13)
[2022-06-28] MEDS: prednisoLONE ACETATE 1% OPHTH DROPS 5 ML BTL BOTH EYES SCH (08:55)
[2022-06-28] MEDS: amLODIPine 10 MG TAB PO SCH (08:55)
[2022-06-28] MEDS: CHOLESTYRAMINE (WITH SUGAR) 4 GM PACKET PO SCH (08:56)
[2022-06-28] MEDS: SODIUM CHLORIDE 0.9% 1,000 ML IV SCH (08:56)
[2022-06-28 10:17] LABS: ALT 13 U/L (4-34); AST 16 U/L (14-36); African American GFR (CKD) 47 (>60 ml/min/1.73 sqM); Albumin 3.1 g/dL (3.5-5.0); Albumin/Globulin Ratio 1.5; Alkaline Phosphatase 68 U/L (38-126); Anion Gap 9 mmol/L; Blood Urea Nitrogen 18 mg/dL (7-17); Calcium 7.8 mg/dL (8.4-10.2); Carbon Dioxide 29 mmol/L (22-30); Chloride 101 mmol/L (98-107); Globulin 2.1 g/dL; Glucose 154 mg/dL (74-99); Non-African American GFR(CKD) 41 (>60 ml/min/1.73 sqM); Potassium 3.6 mmol/L (3.5-5.1); Sodium 139 mmol/L (137-145); Total Bilirubin 0.3 mg/dL (0.2-1.3); Total Protein 5.2 g/dL (6.3-8.2)
[2022-06-28 11:52] LABS: Glucose,Whole Blood 212 mg/dL (70-110)
[2022-06-28 13:39] VITALS: BMI 31.7
--- NOTE | 2022-06-28 14:49 | P.PN ---
Subjective Progress Note Date: 06/28/22 Patient seen at bedside and she is feeling she is doing better. No new neurological issues. Objective - Vital Signs Vital signs: Vital Signs Temp 98.0 F 06/28/22 11:43 Pulse 68 06/28/22 12:01 Resp 18 06/28/22 11:43 BP 89/50 06/28/22 11:43 Pulse Ox 98 06/28/22 11:43 FiO2 Intake & Output 06/27/22 06/28/22 06/28/22 18:59 06:59 18:59 Intake Total 500 Output Total 500 1 Balance 0 -1 Weight 86.5 kg Intake: Oral 500 Output: Urine 500 Stool 1 Other: Voiding Method External Catheter External Catheter External Catheter # Voids 3 - Exam GENERAL: The patient is sitting in a recliner chair and is not in acute distress. NEUROLOGICAL: Higher mental function: The patient is awake, alert, oriented to self, place and time. Patient is following commands. No aphasia and no neglect. Cranial nerves: The pupils are round, equal and reactive to light and accommodation. Visual aly: Hard to assess because of cooperation but feel has defect of uppers. Extraocular movement is intact no nystagmus is noted. Facial sensation is normal to touch throughout. The facial strength is normal throughout. Hearing is moderately decreased bilaterally to hand rub. Tongue is midline and moved [id number] without any difficulty. No dysarthria is noted. Shoulder shrug is normal bilaterally. Motor: The strength is limited in assessment but has arms wrapped from fall but was raising the uppers and lowers symmetrically. Normal tone and bulk. Cerebellum: Normal finger to nose bilaterally. Sensation: Sensation is normal to touch throughout. Some other workup during his hospital visit consisted of: White blood cell on presentation is normal light. Initial serum glucose 213, sodium, magnesium, calcium are within normal limits. Initial creatinine is 2.03 most recent one is 1.35 and patient has underlying chronic kidney insufficiency and currently is back to her baseline. CT of the head is reported as motion limited exam with remote the intervention changes to the right parietal temporal occipital lobes. No obvious acute intracranial processes at this time. No significant changes from prior. I reviewed the CT and I agree there is a sulfa medication changes over the right hemisphere predominantly parietal occipital and somewhat temporal region. Routine EEG is abnormal. 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 Otherwise no epileptiform discharges or seizure on the EEG. Conchal correlations recommended that. - Labs CBC & Chem 7: 06/28/22 06:32 06/28/22 06:32 Labs: Abnormal Lab Results - Last 24 Hours (Table) 06/27/22 06/27/22 06/27/22 Range/Units 08:00 08:00 15:40 RBC (3.80-5.40) m/uL Hgb (11.4-16.0) gm/dL Hct (34.0-46.0) % Metamyelocytes # (Man) 0.05 H (0) k/uL Myelocytes # (Manual) 0.05 H (0) k/uL Retic Count (0.5-2.0) % BUN (7-17) mg/dL Creatinine (0.52-1.04) mg/dL Glucose (74-99) mg/dL POC Glucose (mg/dL) (70-110) mg/dL Calcium (8.4-10.2) mg/dL Iron 27 L (50-170) ug/dL % Saturation 9.67 L (12.00-45.00) Transferrin 201.0 L (204.0-354.0) mg/dL Total Protein (6.3-8.2) g/dL Albumin (3.5-5.0) g/dL Urine Protein Trace H (Negative) Ur Leukocyte Esterase Large H (Negative) Urine WBC 21 H (0-5) /hpf Urine Bacteria Rare H (None) /hpf 06/27/22 06/27/22 06/28/22 Range/Units 17:24 20:31 06:32 RBC 2.62 L (3.80-5.40) m/uL Hgb 7.5 L (11.4-16.0) gm/dL Hct 23.4 L (34.0-46.0) % Metamyelocytes # (Man) (0) k/uL Myelocytes # (Manual) (0) k/uL Retic Count (0.5-2.0) % BUN (7-17) mg/dL Creatinine (0.52-1.04) mg/dL Glucose (74-99) mg/dL POC Glucose (mg/dL) 204 H 236 H (70-110) mg/dL Calcium (8.4-10.2) mg/dL Iron (50-170) ug/dL % Saturation (12.00-45.00) Transferrin (204.0-354.0) mg/dL Total Protein (6.3-8.2) g/dL Albumin (3.5-5.0) g/dL Urine Protein (Negative) Ur Leukocyte Esterase (Negative) Urine WBC (0-5) /hpf Urine Bacteria (None) /hpf 06/28/22 06/28/22 06/28/22 Range/Units 06:32 07:35 10:04 RBC (3.80-5.40) m/uL Hgb (11.4-16.0) gm/dL Hct (34.0-46.0) % Metamyelocytes # (Man) (0) k/uL Myelocytes # (Manual) (0) k/uL Retic Count 3.0 H (0.5-2.0) % BUN 18 H (7-17) mg/dL Creatinine 1.26 H (0.52-1.04) mg/dL Glucose 154 H (74-99) mg/dL POC Glucose (mg/dL) 174 H (70-110) mg/dL Calcium 7.8 L (8.4-10.2) mg/dL Iron (50-170) ug/dL % Saturation (12.00-45.00) Transferrin (204.0-354.0) mg/dL Total Protein 5.2 L (6.3-8.2) g/dL Albumin 3.1 L (3.5-5.0) g/dL Urine Protein (Negative) Ur Leukocyte Esterase (Negative) Urine WBC (0-5) /hpf Urine Bacteria (None) /hpf 06/28/22 Range/Units 11:46 RBC (3.80-5.40) m/uL Hgb (11.4-16.0) gm/dL Hct (34.0-46.0) % Metamyelocytes # (Man) (0) k/uL Myelocytes # (Manual) (0) k/uL Retic Count (0.5-2.0) % BUN (7-17) mg/dL Creatinine (0.52-1.04) mg/dL Glucose (74-99) mg/dL POC Glucose (mg/dL) 212 H (70-110) mg/dL Calcium (8.4-10.2) mg/dL Iron (50-170) ug/dL % Saturation (12.00-45.00) Transferrin (204.0-354.0) mg/dL Total Protein (6.3-8.2) g/dL Albumin (3.5-5.0) g/dL Urine Protein (Negative) Ur Leukocyte Esterase (Negative) Urine WBC (0-5) /hpf Urine Bacteria (None) /hpf Microbiology - Last 24 Hours (Table) 06/27/22 15:40 Urine Culture - Preliminary Urine,Clean Catch Assessment and Plan Assessment: This is a 76-year-old woman with a history of a 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 Patient does not recall the events but the she stated that she was notified that she didn't have any jerk in of any extremities, foaming around the mouth, urinary bowel incontinence, tongue bite. Syncopal episode unknown exact etiology. EEG was negative for seizure. Cannot definitely rule out seizure since has focus (encephalomalacia) which can increase risk for seizure--currently back to baseline. 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 Continue Keppra 750mg bid (was on Keppra 500mg 1 tab tid) and I started the patient on Vimpat 50mg bid since unsure if patient has underlying seizure and not being picked by this routine EEG, especially since has focus for seizure. Highly recommend prolonged EEG or epilepsy monitoring unit as outpatient to [facility] for any underlying seizure or discharges. Keppra level: 35.7 (normal 3-60). Consider cardiology consultation We'll defer the rest of the medical management to primary team Upon discharge recommend the patient to follow-up while with a neurologist within 1-2 weeks as an outpatient The plan was discussed with the patient. If continues to be doing well today then patient is clear from neurological perspective. Time with Patient: Less than 30
[2022-06-28 17:25] LABS: Glucose,Whole Blood 208 mg/dL (70-110)
--- NOTE | 2022-06-28 19:54 | P.CONS ---
History of Present Illness - Reason for Consult Consult date: 06/28/22 bicytopenia Requesting physician: Vikram Zamarripa - Chief Complaint syncope - History of Present Illness Patient is a 76-year-old female with a significant history of anemia. We were consulted for anemia. We have seen her in the past during hospitalization for the same. However she never followed up in clinic. Patient presented to the ER after syncopal episode. Patient denies shortness of breath or dizziness at that time. She reports recent blood in stool which she was treated at [facility] for. She is on oral iron and continues to take it daily. She currently denies any blood in stool and hematuria and feels improved since admission. Patient denies dizziness chest pain, and shortness of breath. Patient denies abdominal pain, nausea, vomiting, diarrhea, fever and chills. Chest x-ray revealed chronic changes and cardiomegaly without acute pulmonary processes. EEG revealed abnormal routine EEG. 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 Otherwise there is no epileptiform discharge or seizure on the EEG. CT brain showed motion limited exam with remote intervention changes to the right parietal/temporal/occipital lobes. No obvious acute intracranial process at this time no significant changes from prior. Hemoglobin 7.5, WBC 4.8, platelets 162,000. Iron 27, iron saturation 9.6%. Haptoglobin normal, no evidence of hemolytic anemia. UA showed possible UTI. Urine culture pending. Patient started on Rocephin. Patient afebrile Review of Systems 10 point ROS is negative except as stated in HPI Past Medical History Past Medical History: Atrial Fibrillation, Asthma, Coronary Artery Disease (CAD), Cancer, Heart Failure, CVA/TIA, Diabetes Mellitus, Eye Disorder, Hypertension, Osteoarthritis (OA), Renal Disease, Seizure Disorder Additional Past Medical History / Comment(s): Brain mass/fall with intracranial bleed/hematome-surgery at [facility], seizure after brain surgery, paroxysmal Afib, DM type II, neuropathy bilateral feet, orthostatic hypotension, SSS with pacemaker, L1 compression fx, CKD stage III, blind in L eye, UTIs, lower GI bleed, gastritis, gastric erosion, CDiff colitis, skin cancer with r emovals, past L arm fracture, past R arm fracture x2. History of Any Multi-Drug Resistant Organisms: MRSA Year Discovered:: 01/26/19 MDRO Source:: URINE Past Surgical History: Cholecystectomy, Heart Catheterization, Heart Catheterization With Stent, Hysterectomy, Pacemaker Additional Past Surgical History / Comment(s): Evacuation of intracranial hematoma and ressection of hemorrhagic mass, pacemaker 2016, PCI with stent 06/06/18, EGD/colonoscopy, R eye corneal implant/cataract removal, EGD 06/2018, colonoscopy, skin cancer removal. Past Anesthesia/Blood Transfusion Reactions: No Reported Reaction Additional Past Anesthesia/Blood Transfusion Reaction / Comm: . Date of Last Stent Placement:: 06/06/18 Type of Cardiac Device: Permanent Pacemaker Device Placement Date:: 04/2016 Past Psychological History: Anxiety, Depression Additional Psychological History / Comment(s): Pt has her son. She uses a walker and has a wheelchair for longer distaces. She no longer drives, her family drives her to [employer]. Her son manages her medications. denies any thoughts/plans of suicide. Smoking Status: Never smoker Past Alcohol Use History: None Reported Past Drug Use History: None Reported - Past Family History Mother Family Medical History: Cancer, COPD, Hypertension Additional Family Medical History / Comment(s): Mother had bone cancer. Father Family Medical History: Cancer, Hypertension Additional Family Medical History / Comment(s): Father had skin cancer. Medications and Allergies Home Medications Medication Instructions Recorded Confirmed Type levETIRAcetam [Keppra] 500 mg PO TID 07/21/18 06/25/22 History QUEtiapine [SEROquel] 100 mg PO HS 30 Days #30 tab 04/13/19 06/25/22 Rx Pantoprazole [Protonix] 40 mg PO DAILY 12/19/19 06/25/22 History QUEtiapine [SEROquel] 25 mg PO DAILY 09/17/20 06/25/22 History Insulin Glargine/Lixisenatide 20 units SQ HS 10/12/21 06/25/22 History [Soliqua 100 Unit-33 Mcg/ml Pen] amLODIPine [Norvasc] 10 mg PO DAILY 90 Days #90 tab 03/19/22 06/25/22 Rx Albuterol Sulfate [Ventolin HFA] 2 puff INHALATION RT-Q6H PRN 05/29/22 06/25/22 History Aspirin EC [Ecotrin Low Dose] 81 mg PO DAILY 05/29/22 06/25/22 History Cholestyramine (with Sugar) 4 gm PO DAILY 05/29/22 06/25/22 History [Cholestyramine Packet] Ferrous Sulfate [Feosol] 325 mg PO DAILY 05/29/22 06/25/22 History Fluticasone/Umeclidin/Vilanter 1 puff INHALATION RT-DAILY 05/29/22 06/25/22 History [Trelegy Ellipta 200-62.5-25] hydrALAZINE HCL [Apresoline] 50 mg PO TID 05/29/22 06/25/22 History Apixaban [Eliquis] 5 mg PO BID 06/25/22 06/25/22 History Atorvastatin [Lipitor] 40 mg PO HS 06/25/22 06/25/22 History Furosemide [Lasix] 40 mg PO DAILY 06/25/22 06/25/22 History Multivit-Min/FA/Lycopen/Lutein 1 tab PO DAILY 06/25/22 06/25/22 History [Centrum Silver Tablet] Prednisolone Acetate/Pf 1 drop BOTH EYES DIRECTED 06/25/22 06/25/22 History [Prednisolone Acet 1% Eye Drop] Allergies Allergy/AdvReac Type Severity Reaction Status Date / Time Latex, Natural Rubber Allergy Itching Verified 06/25/22 14:51 sulfamethoxazole Allergy Rash/Hives Verified 06/25/22 14:51 [From Bactrim] trimethoprim [From Bactrim] Allergy Rash/Hives Verified 06/25/22 14:51 Physical Exam Vitals: Vital Signs Temp Pulse Pulse Resp BP Pulse Ox 06/28/22 16:00 76 06/28/22 15:50 75 06/28/22 12:01 68 06/28/22 11:51 70 06/28/22 11:43 98.0 F 61 18 89/50 98 06/28/22 08:43 72 06/28/22 08:34 97 06/28/22 08:32 73 06/28/22 07:33 98.0 F 59 L 18 116/71 98 06/28/22 02:37 97.9 F 79 18 135/70 99 06/27/22 20:04 65 06/27/22 19:53 64 06/27/22 19:27 98.3 F 63 18 125/70 91 L Intake and Output 06/28/22 06/28/22 06/28/22 06:59 14:59 22:59 Intake Total 500 Output Total 500 301 Balance 0 -301 Intake: Oral 500 Output: Urine 500 300 Stool 1 Other: Voiding Method External Catheter Weight 86.5 kg 86.5 kg - Constitutional General appearance: average body habitus, no acute distress - EENT Eyes: anicteric sclerae, EOMI ENT: hearing grossly normal - Neck Neck: no lymphadenopathy - Respiratory Respiratory: bilateral: CTA - Cardiovascular Rhythm: irregularly irregular Heart sounds: normal: S1, S2 Abnormal Heart Sounds: no systolic murmur, no diastolic murmur, no rub, no S3 Gallop, no S4 Gallop, no click, no other - Gastrointestinal General gastrointestinal: soft, no tenderness - Integumentary Integumentary: pale - Neurologic grossly intact - Musculoskeletal Musculoskeletal: generalized weakness - Psychiatric Psychiatric: A&O x's 3, appropriate affect, intact judgment & insight Results CBC & Chem 7: 06/28/22 06:32 06/28/22 06:32 Labs: Abnormal Lab Results - Last 24 Hours (Table) 06/27/22 06/27/22 06/27/22 Range/Units 08:00 15:40 17:24 RBC (3.80-5.40) m/uL Hgb (11.4-16.0) gm/dL Hct (34.0-46.0) % Retic Count (0.5-2.0) % BUN (7-17) mg/dL Creatinine (0.52-1.04) mg/dL Glucose (74-99) mg/dL POC Glucose (mg/dL) 204 H (70-110) mg/dL Calcium (8.4-10.2) mg/dL Iron 27 L (50-170) ug/dL % Saturation 9.67 L (12.00-45.00) Transferrin 201.0 L (204.0-354.0) mg/dL Total Protein (6.3-8.2) g/dL Albumin (3.5-5.0) g/dL Urine Protein Trace H (Negative) Ur Leukocyte Esterase Large H (Negative) Urine WBC 21 H (0-5) /hpf Urine Bacteria Rare H (None) /hpf 06/27/22 06/28/2206/28/23 Range/Units 20:31 06:32 06:32 RBC 2.62 L (3.80-5.40) m/uL Hgb 7.5 L (11.4-16.0) gm/dL Hct 23.4 L (34.0-46.0) % Retic Count (0.5-2.0) % BUN 18 H (7-17) mg/dL Creatinine 1.26 H (0.52-1.04) mg/dL Glucose 154 H (74-99) mg/dL POC Glucose (mg/dL) 236 H (70-110) mg/dL Calcium 7.8 L (8.4-10.2) mg/dL Iron (50-170) ug/dL % Saturation (12.00-45.00) Transferrin (204.0-354.0) mg/dL Total Protein 5.2 L (6.3-8.2) g/dL Albumin 3.1 L (3.5-5.0) g/dL Urine Protein (Negative) Ur Leukocyte Esterase (Negative) Urine WBC (0-5) /hpf Urine Bacteria (None) /hpf 06/28/22 06/28/22 06/28/22 Range/Units 07:35 10:04 11:46 RBC (3.80-5.40) m/uL Hgb (11.4-16.0) gm/dL Hct (34.0-46.0) % Retic Count 3.0 H (0.5-2.0) % BUN (7-17) mg/dL Creatinine (0.52-1.04) mg/dL Glucose (74-99) mg/dL POC Glucose (mg/dL) 174 H 212 H (70-110) mg/dL Calcium (8.4-10.2) mg/dL Iron (50-170) ug/dL % Saturation (12.00-45.00) Transferrin (204.0-354.0) mg/dL Total Protein (6.3-8.2) g/dL Albumin (3.5-5.0) g/dL Urine Protein (Negative) Ur Leukocyte Esterase (Negative) Urine WBC (0-5) /hpf Urine Bacteria (None) /hpf Microbiology - Last 24 Hours (Table) 06/27/22 15:40 Urine Culture - Preliminary Urine,Clean Catch Comments: EEG reviewed Chest x-ray: report reviewed CT Scan - head: report reviewed Assessment and Plan (1) Anemia Current Visit: Yes Status: Acute Priority: High Code(s): D64.9 - ANEMIA, UNSPECIFIED SNOMED Code(s): 956659614 Plan: Anemia: -History of anemia, no f/u with hematology as recommended. Reported recent blood in stool, worked up at [facility] per pt. Will request records for workup completed -Hemoglobin 7.5, WBC 4.8, platelets 162,000. Iron 27, iron saturation 9.6%. Haptoglobin normal, no evidence of hemolytic anemia. -Additional anemia workup ordered. -Pt has suspected UTI. Anemia could be multifactorial r/t UTI, hx of anemia and possible GI bleed. Will review records from [facility], and will consider surgery consult, pending review of records -Will continue to monitor counts -Please transfuse for hemoglobin less than 7 or if symptomatic attests: I have performed H&P and developed impression and plan of care for patient, discussed with dictator. I agree with dictated note, documented as a scribe
[2022-06-28] MEDS: QUEtiapine 100 MG TAB PO SCH (20:13)
[2022-06-28] MEDS: ATORVASTATIN 40 MG TAB PO SCH (20:13)
[2022-06-28] MEDS: INSULIN DETEMIR (LEVEMIR) 100 UNIT/ML SYR SQ SCH (20:51)
[2022-06-28 20:55] LABS: Glucose,Whole Blood 263 mg/dL (70-110)
[2022-06-28] MEDS: ACETAMINOPHEN TAB 325 MG TAB PO PRN (22:34)
[2022-06-29] MEDS: SODIUM CHLORIDE 0.9% 1,000 ML IV SCH (06:00)
[2022-06-29 07:16] LABS: Glucose,Whole Blood 182 mg/dL (70-110)
[2022-06-29] MEDS: IPRATROPIUM 0.5 MG/2.5 ML NEBU INHALATION SCH ×3 (08:44→15:56)
[2022-06-29] MEDS: SYMBICORT 80-4.5 MCG INHALER INHALATION SCH (08:44)
[2022-06-29] MEDS ORDERED: amLODIPine 5 MG TAB PO SCH (09:00)
[2022-06-29] MEDS: APIXABAN 5 MG TAB PO SCH (10:08)
[2022-06-29] MEDS: FERROUS SULFATE 325 MG TAB PO SCH (10:08)
[2022-06-29] MEDS: QUEtiapine 25 MG TAB PO SCH (10:08)
[2022-06-29] MEDS: MULTIVITAMINS, THERA 1 EACH TAB PO SCH (10:08)
[2022-06-29] MEDS: ASPIRIN 81 MG PO SCH (10:08)
[2022-06-29] MEDS: LACOSAMIDE 50 MG TABLET PO SCH (10:08)
[2022-06-29] MEDS: CHOLESTYRAMINE (WITH SUGAR) 4 GM PACKET PO SCH (10:08)
[2022-06-29] MEDS: PANTOPRAZOLE 40 MG TABLET PO SCH (10:08)
--- NOTE | 2022-06-29 10:10 | PN ---
PROGRESS NOTE SUBJECTIVE: A 76-year-old white female was admitted with urinary tract infection, metabolic encephalopathy, dehydration, altered mental status, metabolic encephalopathy. Her blood pressure is running in the low 90s. Currently, sugars in the mid 200s. She remains on broad-spectrum antibiotics. Wait for urine culture to come back. She had a brain CT per neurologist for confusion and EEG. The EEG was done by Neurology who recommended which shows an abnormal routine EEG consistent with breach rhythm. No seizures were seen. The patient had a CT of the brain which showed some remote interventional changes to the right parietal, temporal, occipital lobes. No obvious intracranial process. Neurology cleared her for discharge in the urine culture comes back. Possibly being sent home on antibiotics, we do rehydration due to hypotension. Check for orthostatic changes. Prognosis guarded. MMODL / IJN: [id number] /
[2022-06-29] MEDS: ACETAMINOPHEN TAB 325 MG TAB PO PRN (10:12)
[2022-06-29 11:33] LABS: Glucose,Whole Blood 209 mg/dL (70-110)
[2022-06-29 13:19] VITALS: BP 114/75; RESP 16; TEMP 98.1
[2022-06-29 13:37] LABS: Basophils % (A) 0 %; Eosinophils # (A) 0.1 k/uL (0-0.7); Eosinophils % (A) 2 %; HCT 23.9 % (34.0-46.0); HGB 7.8 gm/dL (11.4-16.0); Hypochromasia Moderate; Lymphocytes # (A) 1.6 k/uL (1.0-4.8); Lymphocytes % (A) 22 %; MCH 29.3 pg (25.0-35.0); MCHC 32.8 g/dL (31.0-37.0); MCV 89.4 fL (80.0-100.0); Mean Platelet Volume 9.4; Monocytes % (A) 14 %; Neutrophils # (A) 4.6 k/uL (1.3-7.7); Neutrophils % (A) 62 %; Platelet Count 182 k/uL (150-450); Poikilocytosis Slight; RBC 2.67 m/uL (3.80-5.40); RDW 15.7 % (11.5-15.5); WBC 7.5 k/uL (3.8-10.6)
[2022-06-29 16:03] VITALS: PULSE 76
--- NOTE | 2022-06-29 16:06 | P.DS ---
Providers Date of admission: 06/25/22 14:22 Expected date of discharge: 06/29/22 Attending physician: Vikram Zamarripa Consults: 06/26/22 16:38 Consult Physician Routine Consulting Provider: Hector Easton Consult Reason/Comments: ams/seizure Do you want consulting provider notified?: Yes 06/26/22 23:10 Consult Physician Routine Consulting Provider: Estrellita Benz Consult Reason/Comments: uti Do you want consulting provider notified?: Yes 06/27/22 17:20 Consult Physician Routine Consulting Provider: Alek Blank Consult Reason/Comments: bipenia Do you want consulting provider notified?: Yes 06/29/22 10:01 Consult Physician Routine Consulting Provider: Jaiden Hawk Consult Reason/Comments: syncope Do you want consulting provider notified?: Yes Primary care physician: Vikram Zamarripa Hospital Course: Final diagnosis Acute urinary tract infection, pleasant on admission Metabolic encephalopathy with altered mental status most likely secondary to UTI next line dehydration Syncope History of atrial fibrillation Line asthma, not in exacerbation History of coronary artery disease with heart failure CVA/TIA history diabetes mellitus hypertension Seizure disorder history of anxiety/depression Discharge disposition Patient is being discharged in a stable condition with guarded prognosis to [facility]. Patient will follow-up with Dr. Zamarripa in the outpatient setting upon discharge. Patient is to continue with oral Ceftin twice daily for the next 5 days to complete the course. Patient needs to follow up with neurology as well as cardiology outpatient as scheduled. Total time taken is greater than 35 minutes. Hospital course This is a 76-year-old female who was recently admitted with urinary tract infection, metabolic encephalopathy and dehydration with altered mental status and being closely monitored. 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 Patient was evaluated by infectious disease maintained on IV antibiotics and urine culture has finalized being negative. Patient with significant weakness will be going to [facility] and strongly recommended follow-up with primary care provider this week. Patient needs cardiology evaluation in the outpatient setting. Patient has been cleared by consultations. Please refer to other consultation notes for further HPI. Currently no reports of chest pain, shortness of breath, or palpitations. Patient is afebrile. No reports of nausea or vomiting and patient is tolerating diet. Patient will be going to [facility] today. Guarded prognosis. Physical exam: Gen: This is a 76-year-old female who is awake, alert and oriented 3, well- developed, well-nourished obese. HEENT: Head is atraumatic, normocephalic. Pupils equal, round. Sclerae is anicteric. NECK: Supple. No JVD. No lymphadenopathy. No thyromegaly. LUNGS: Diminished breath sounds bilaterally with no wheezes or rhonchi. No intercostal retractions. HEART: S1, S2 are muffled ABDOMEN: Soft. Bowel sounds are present. No masses. No tenderness. EXTREMITIES: No pedal edema. No calf tenderness. NEUROLOGICAL: Patient is awake, alert and oriented x3. Cranial nerves 2 through 12 are grossly intact. Diffusely weak Please refer to medication reconciliation sheet for a list of medications. The impression and plan of care has been dictated by Jessenia Mckeon, Nurse Practitioner as directed. Dr. Tre MD I have performed a history and examination and MDM of this patient, discussed the same with the dictator, and agree with the dictator's assessment and plan as written ,documented as a scribe. Based on total visit time, I have performed more than 50% of the visit. Patient Condition at Discharge: Fair Plan - Discharge Summary Discharge Rx Participant: Yes New Discharge Prescriptions: New cefUROXime axetiL [Ceftin] 500 mg PO BID 5 Days #10 tab amLODIPine [Norvasc] 5 mg PO DAILY tab Lacosamide [Vimpat] 50 mg PO BID #4 tab levETIRAcetam [Keppra] 750 mg PO BID tab Acetaminophen Tab [Tylenol] 650 mg PO Q6HR PRN tab PRN Reason: Mild Pain Or Fever > 100.5 Continue QUEtiapine [SEROquel] 100 mg PO HS 30 Days #30 tab Pantoprazole [Protonix] 40 mg PO DAILY Fluticasone/Umeclidin/Vilanter [Trelegy Ellipta 200-62.5-25] 1 puff INHALATION RT-DAILY Aspirin EC [Ecotrin Low Dose] 81 mg PO DAILY Multivit-Min/FA/Lycopen/Lutein [Centrum Silver Tablet] 1 tab PO DAILY Apixaban [Eliquis] 5 mg PO BID QUEtiapine [SEROquel] 25 mg PO DAILY Insulin Glargine/Lixisenatide [Soliqua 100 Unit-33 Mcg/ml Pen] 20 units SQ HS Ferrous Sulfate [Iron (65 MG Elemental)] 325 mg PO DAILY Albuterol Sulfate [Ventolin HFA] 2 puff INHALATION RT-Q6H PRN PRN Reason: Shortness Of Breath Cholestyramine (with Sugar) [Cholestyramine Packet] 4 gm PO DAILY Prednisolone Acetate/Pf [Prednisolone Acet 1% Eye Drop] 1 drop BOTH EYES DIRECTED Atorvastatin [Lipitor] 40 mg PO HS Discontinued levETIRAcetam [Keppra] 500 mg PO TID hydrALAZINE HCL [Apresoline] 50 mg PO TID Furosemide [Lasix] 40 mg PO DAILY amLODIPine [Norvasc] 10 mg PO DAILY 90 Days #90 tab Discharge Medication List QUEtiapine [SEROquel] 100 mg PO HS 30 Days #30 tab 04/13/19 [Rx] Pantoprazole [Protonix] 40 mg PO DAILY 12/19/19 [History] QUEtiapine [SEROquel] 25 mg PO DAILY 09/17/20 [History] Insulin Glargine/Lixisenatide [Soliqua 100 Unit-33 Mcg/ml Pen] 20 units SQ HS 10/12/21 [History] Albuterol Sulfate [Ventolin HFA] 2 puff INHALATION RT-Q6H PRN 05/29/22 [History] Aspirin EC [Ecotrin Low Dose] 81 mg PO DAILY 05/29/22 [History] Cholestyramine (with Sugar) [Cholestyramine Packet] 4 gm PO DAILY 05/29/22 [History] Ferrous Sulfate [Iron (65 MG Elemental)] 325 mg PO DAILY 05/29/22 [History] Fluticasone/Umeclidin/Vilanter [Trelegy Ellipta 200-62.5-25] 1 puff INHALATION RT-DAILY 05/29/22 [History] Apixaban [Eliquis] 5 mg PO BID 06/25/22 [History] Atorvastatin [Lipitor] 40 mg PO HS 06/25/22 [History] Multivit-Min/FA/Lycopen/Lutein [Centrum Silver Tablet] 1 tab PO DAILY 06/25/22 [History] Prednisolone Acetate/Pf [Prednisolone Acet 1% Eye Drop] 1 drop BOTH EYES DIRECTED 06/25/22 [History] Acetaminophen Tab [Tylenol] 650 mg PO Q6HR PRN tab 06/29/22 [Rx] Lacosamide [Vimpat] 50 mg PO BID #4 tab 06/29/22 [Rx] amLODIPine [Norvasc] 5 mg PO DAILY tab 06/29/22 [Rx] cefUROXime axetiL [Ceftin] 500 mg PO BID 5 Days #10 tab 06/29/22 [Rx] levETIRAcetam [Keppra] 750 mg PO BID tab 06/29/22 [Rx] Follow up Appointment(s)/Referral(s): Alek Blank MD [STAFF PHYSICIAN] - 07/23/22 9:00 am ([id number] ) Vikram Zamarripa MD [Primary Care Provider] - 1-2 days Derian Seaman MD [Medical Doctor] - 1 Week Activity/Diet/Wound Care/Special Instructions: Patient is going to [facility] Activity as tolerated Recommend follow-up with cardiology Follow-up with neurology Follow-up with hematology Continue antibiotics for the next 5 days to complete a course Continue heart healthy diet Recommend monitoring Accu-Cheks before meals and at bedtime Discharge Disposition: TRANSFER TO SNF/ECF
[2022-06-30 08:34] LABS: Methylmalonic Acid 0.39 umol/L (<0.40)
--- NOTE | 2022-06-30 08:43 | PN ---
PROGRESS NOTE DATE OF SERVICE: 06/29/2022 SUBJECTIVE: This 76-year-old woman who was admitted with syncope, weakness, also had some UTI. Cardiology evaluation has been sought. No chest pain. No palpitations. No fever. PHYSICAL EXAMINATION: VITAL SIGNS: Pulse is 66, blood pressure 114/70, respirations 16. CHEST: Clear to auscultation. CARDIOVASCULAR: S1, S2. ABDOMEN: Soft. NERVOUS SYSTEM: Diffusely weak. LABORATORY DATA: Noted. ASSESSMENT: 1. Syncope of undetermined etiology. 2. History of seizure. 3. Encephalomalacia. 4. Diabetes mellitus type 2. 5. Multiple medical issues. 6. Gait dysfunction. RECOMMENDATIONS: Continue current management, continue symptomatic treatment. Otherwise, continue with bronchodilators and rest of medications. Closely follow with Cardiology, Neurology. PT/OT evaluation. Further recommendations to follow. MMODL / IJN: [id number] /
== END 2022-06-29 18:02 | DRG 640 ==
LOC: EC 11:21 → 5NMEDONC 14:22
PROVIDERS: ADMIT Family Medicine; ATTEND Family Medicine
PROC: 4A10X4Z Monitoring of Central Nervous Electrical Activity, External Approach (ICD-10-PCS; principal; 2022-06-27)
DX: E86.0 Dehydration (principal); G93.41 Metabolic encephalopathy; J44.0 Chronic obstructive pulmonary disease with (acute) lower respiratory infection; N39.0 Urinary tract infection, site not specified; R55 Syncope and collapse; G40.909 Epilepsy, unspecified, not intractable, without status epilepticus; E11.649 Type 2 diabetes mellitus with hypoglycemia without coma; E11.40 Type 2 diabetes mellitus with diabetic neuropathy, unspecified; I48.0 Paroxysmal atrial fibrillation; Z79.01 Long term (current) use of anticoagulants; M19.90 Unspecified osteoarthritis, unspecified site; Z86.79 Personal history of other diseases of the circulatory system; G40.901 Epilepsy, unspecified, not intractable, with status epilepticus; G93.81 Temporal sclerosis; J45.909 Unspecified asthma, uncomplicated; Z86.73 Personal history of transient ischemic attack (TIA), and cerebral infarction without residual deficits; H54.62 Unqualified visual loss, left eye, normal vision right eye; Z87.442 Personal history of urinary calculi; E11.42 Type 2 diabetes mellitus with diabetic polyneuropathy; I11.0 Hypertensive heart disease with heart failure; G93.89 Other specified disorders of brain; I49.5 Sick sinus syndrome; K29.70 Gastritis, unspecified, without bleeding; Z79.82 Long term (current) use of aspirin; Z87.11 Personal history of peptic ulcer disease; Z90.710 Acquired absence of both cervix and uterus; Z98.41 Cataract extraction status, right eye; Z96.1 Presence of intraocular lens; Z85.828 Personal history of other malignant neoplasm of skin; Z95.5 Presence of coronary angioplasty implant and graft; Z88.2 Allergy status to sulfonamides; Z88.1 Allergy status to other antibiotic agents; Z91.040 Latex allergy status; Z91.048 Other nonmedicinal substance allergy status; Z86.14 Personal history of Methicillin resistant Staphylococcus aureus infection; Z79.4 Long term (current) use of insulin; Z79.899 Other long term (current) drug therapy
CPT/HCPCS: 36415; 70450; 71046; 80053; 80177; 81001; 82525; 82607; 82728; 82746; 83010; 83540; 83550; 83735; 83921; 84145; 84484; 85025; 85045; 85610; 85730; 87086; 93005; 94640; 94760; 95816; 96360; 96361; 99285

== ENCOUNTER 2022-10-11 18:26 | Observation (INO) | payer MEDICARE ==
[2022-10-11] MEDS ORDERED: SODIUM CHLORIDE 0.9% 1,000 ML IV STA (19:33)
--- NOTE | 2022-10-11 20:13 | ED ---
Weakness HPI - General Chief complaint: Urogenital Stated complaint: UTI Time Seen by Provider: 10/11/22 19:12 Source: patient, EMS, RN notes reviewed, old records reviewed Mode of arrival: EMS Limitations: no limitations - History of Present Illness Initial comments: This is a 69-year-old female to the ER today. Patient presents to the ER today for weakness. Patient was placed on antibiotics recently for possible urinary tract infection. Patient continues to persistent altered mental status, confusion and presents with her son here to the emergency department today. Patient is unsure why she is here but she does and currently admits to confusion weakness and not feeling well. Patient is a poor historian history obtained from son at bedside MD Complaint: generalized weakness, lack of energy, difficulty walking -: days(s) (5) Location: generalized Severity: moderate Consistency: now resolved Improves with: none Worsens with: none Context: recent illness, history of similar Associated Symptoms: denies other symptoms - Related Data Home Medications Medication Instructions Recorded Confirmed Pantoprazole [Protonix] 40 mg PO DAILY 12/19/19 10/11/22 Insulin Glargine/Lixisenatide 15 units SQ HS 10/12/21 10/11/22 [Soliqua 100 Unit-33 Mcg/ml Pen] Albuterol Sulfate [Ventolin HFA] 2 puff INHALATION RT-Q6H PRN 05/29/22 10/11/22 Aspirin EC [Ecotrin Low Dose] 81 mg PO DAILY 05/29/22 10/11/22 Fluticasone/Umeclidin/Vilanter 1 puff INHALATION RT-DAILY 05/29/22 10/11/22 [Trelegy Ellipta 200-62.5-25] Apixaban [Eliquis] 5 mg PO BID 06/25/22 10/11/22 Acetaminophen Tab [Tylenol] 500 - 1,000 mg PO Q6H PRN 10/11/22 10/11/22 Calcium Carbonate/Vitamin D3 1 tab PO DAILY 10/11/22 10/11/22 [Calcium 500 mg-Vit D3 5 mcg (200 Unit)] Cholecalciferol [Vitamin D3 (125 250 mcg PO DAILY 10/11/22 10/11/22 Mcg = 5000 Iu)] QUEtiapine [SEROquel] 100 mg PO DAILY 08/10/23 08/10/23 levETIRAcetam [Keppra] 500 mg PO TID 10/11/22 10/11/22 Previous Rx's Medication Instructions Recorded amLODIPine [Norvasc] 5 mg PO DAILY tab 06/29/22 cefUROXime axetiL [Ceftin] 500 mg PO BID 1 Days #4 tab 10/13/22 Allergies Allergy/AdvReac Type Severity Reaction Status Date / Time Latex, Natural Rubber Allergy Itching Verified 06/25/22 14:51 sulfamethoxazole Allergy Rash/Hives Verified 06/25/22 14:51 [From Bactrim] trimethoprim [From Bactrim] Allergy Rash/Hives Verified 06/25/22 14:51 Review of Systems ROS Statement: Those systems with pertinent positive or pertinent negative responses have been documented in the HPI. ROS Other: All systems not noted in ROS Statement are negative. Past Medical History Past Medical History: Atrial Fibrillation, Asthma, Coronary Artery Disease (CAD), Cancer, Heart Failure, CVA/TIA, Diabetes Mellitus, Eye Disorder, Hypertension, Osteoarthritis (OA), Renal Disease, Seizure Disorder Additional Past Medical History / Comment(s): Brain mass/fall with intracranial bleed/hematome-surgery at [facility], seizure after brain surgery, paroxysmal Afib, DM type II, neuropathy bilateral feet, orthostatic hypotension, SSS with pacemaker, L1 compression fx, CKD stage III, blind in L eye, UTIs, lower GI bleed, gastritis, gastric erosion, CDiff colitis, skin cancer with removals, past L arm fracture, past R arm fracture x2. History of Any Multi-Drug Resistant Organisms: MRSA Date of last positivie culture/infection: 01/26/19 MDRO Source:: URINE Past Surgical History: Cholecystectomy, Heart Catheterization, Heart Catheterization With Stent, Hysterectomy, Pacemaker Additional Past Surgical History / Comment(s): Evacuation of intracranial hematoma and ressection of hemorrhagic mass, pacemaker 2016, PCI with stent 06/06/18, EGD/colonoscopy, R eye corneal implant/cataract removal, EGD 06/2018, colonoscopy, skin cancer removal. Past Anesthesia/Blood Transfusion Reactions: No Reported Reaction Additional Past Anesthesia/Blood Transfusion Reaction / Comment(s): . Date of Last Stent Placement:: 06/06/18 Type of Cardiac Device: Permanent Pacemaker Device Placement Date:: 04/2016 Past Psychological History: Anxiety, Depression Smoking Status: Never smoker Past Alcohol Use History: None Reported Past Drug Use History: None Reported - Past Family History Mother Family Medical History: Cancer, COPD, Hypertension Additional Family Medical History / Comment(s): Mother had bone cancer. Father Family Medical History: Cancer, Hypertension Additional Family Medical History / Comment(s): Father had skin cancer. General Exam General appearance: alert, in no apparent distress Head exam: Present: atraumatic, normocephalic, normal inspection Eye exam: Present: normal appearance, PERRL, EOMI. Absent: scleral icterus, conjunctival injection, periorbital swelling ENT exam: Present: normal exam, mucous membranes moist Neck exam: Present: normal inspection. Absent: tenderness, meningismus, lymphadenopathy Respiratory exam: Present: normal lung sounds bilaterally. Absent: respiratory distress, wheezes, rales, rhonchi, stridor Cardiovascular Exam: Present: regular rate, normal rhythm, normal heart sounds. Absent: systolic murmur, diastolic murmur, rubs, gallop, clicks GI/Abdominal exam: Present: soft, normal bowel sounds. Absent: distended, tenderness, guarding, rebound, rigid Extremities exam: Present: normal inspection, full ROM, normal capillary refill. Absent: tenderness, pedal edema, joint swelling, calf tenderness Back exam: Present: normal inspection Neurological exam: Present: alert, oriented X3, CN II-XII intact Psychiatric exam: Present: normal affect, normal mood Skin exam: Present: warm, dry, intact, normal color. Absent: rash Course Vital Signs 10/11/22 10/11/22 10/11/22 18:28 20:00 20:30 Temperature 98 F Pulse Rate 60 60 60 Respiratory 18 18 16 Rate Blood Pressure 130/70 142/48 142/48 O2 Sat by Pulse 95 96 Oximetry 10/11/22 10/11/22 10/12/22 21:00 21:30 03:00 Temperature Pulse Rate 60 60 60 Respiratory 16 16 15 Rate Blood Pressure 153/70 118/50 131/81 O2 Sat by Pulse 95 Oximetry 10/12/22 10/12/22 10/12/22 06:31 09:11 11:00 Temperature 98.4 F 97.9 F 97.9 F Pulse Rate 60 60 62 Respiratory 18 16 18 Rate Blood Pressure 161/50 142/57 O2 Sat by Pulse 94 L 96 96 Oximetry - Reevaluation(s) Reevaluation #1: 10/11/22 22:04 Medical records reviewed Reevaluation #2: 10/11/22 22:04 Symptoms unchanged Reevaluation #3: 10/11/22 23:34 Patient informed results and questions answered Reevaluation #4: 10/11/22 22:04 Was pt. sent in by a medical professional or institution (, PR[employer]A, SQL DATABASE ADMINISTRATOR, urgent care, hospital, or prison...) When possible be specific @ -no Did you speak to anyone other than the patient for history (EMS, parent, family, police, friend...)? What history was obtained from this source @ -As he did speak with son who is at bedside, providing history of recent interaction both primary care patient on antibiotics and have the patient has been of worsening Did you review nursing and triage notes (agree or disagree)? Why? @ -agree Are old charts reviewed (outside hosp., previous admission, EMS record, old EKG, old radiological studies, urgent care reports/EKG's, prison records)? Report findings @ -yes Differential Diagnosis (chest pain, altered mental status, abdominal pain women, abdominal pain men, vaginal bleeding, weakness, fever, dyspnea, syncope, headache, dizziness, GI bleed, back pain, seizure, CVA, palpatations, mental health, musculoskeletal)? @ -prior EKG interpreted by me (3pts min.). @ -yes X-rays interpreted by me (1pt min.). @ -no CT interpreted by me (1pt min.). @ -no U/S interpreted by me (1pt. min.). @ -no What testing was considered but not performed or refused? (CT, X-rays, U/S, labs)? Why? @ -none What meds were considered but not given or refused? Why? @ -none Did you discuss the management of the patient with other professionals (professionals i.e. PRISCILLA Luis, SQL DATABASE ADMINISTRATOR, lab, RT, psych nurse, social services designee, draughtsman, teacher, admitting officer, porter sample case)? Give summary @ -no Was smoking cessation discussed for >3mins.? @ -no Was critical care preformed (if so, how long)? @ -no Were there social determinants of health that impacted care today? How? (Homelessness, low income, unemployed, alcoholism, drug addiction, transportation, low edu. Level, literacy, decrease access to med. care, nursing home, rehab)? @ -none Was there de-escalation of care discussed even if they declined (Discuss DNR or withdrawal of care, Hospice)? DNR status @ -no What co-morbidities impacted this encounter? (DM, HTN, Smoking, COPD, CAD, C ancer, CVA, ARF, Chemo, Hep., AIDS, mental health diagnosis, sleep apnea, morbid obesity)? @ -none Was patient admitted / discharged? Hospital course, mention meds given and route, prescriptions, significant lab abnormalities, going to OR and other pertinent info. @ - 77 female here for evaluation. Patient presents today for evaluation of weakness altered mental status. Patient does have positive urinary tract infection. Patient will be admitted for IV antibiotics Admitted Undiagnosed new problem with uncertain prognosis? @ -no Drug Therapy requiring intensive monitoring for toxicity (Heparin, Nitro, Insulin, Cardizem)? @ -no Were any procedures done? @ -no Diagnosis/symptom? @ -Altered mental status, UTI, weakness Acute, or Chronic, or Acute on Chronic? @ -Acute Uncomplicated (without systemic symptoms) or Complicated (systemic symptoms)? @ -Complicated Side effects of treatment? @ -no Exacerbation, Progression, or Severe Exacerbation? @ -exacerbation Poses a threat to life or bodily function? How? (Chest pain, USA, IA, pneumonia, PE, COPD, DKA, ARF, appy, cholecystitis, CVA, Diverticulitis, Homicidal, Suicidal, threat to staff... and all critical care pts) @ -yes significant infection and sepsis Reevaluation #5: 10/11/22 22:04 Differential Weakness: Hypoglycemia, shock, sepsis, hyponatremia, anemia, infection, IA, ETOH, adverse medicine reaction, overdose, stroke, this is not meant to be an all-inclusive list. EKG Findings - EKG Comments: EKG Findings:: EKG paced 60 IL 184 QRS 194 QTC 520 Medical Decision Making - Medical Decision Making 77 female here for evaluation. Patient presents today for evaluation of weakness altered mental status. Patient does have positive urinary tract infection. Patient will be admitted for IV antibiotics - Lab Data Result diagrams: 10/12/22 07:41 10/12/22 07:41 Lab Results 10/11/22 10/11/22 10/11/22 Range/Units 20:09 20:09 20:09 WBC 6.5 (3.8-10.6) k/uL RBC 2.86 L (3.80-5.40) m/uL Hgb 7.0 L (11.4-16.0) gm/dL Hct 23.8 L (34.0-46.0) % MCV 83.2 (80.0-100.0) fL MCH 24.5 L (25.0-35.0) pg MCHC 29.5 L (31.0-37.0) g/dL RDW 15.9 H (11.5-15.5) % Plt Count 198 (150-450) k/uL MPV 8.0 Neutrophils % 72 % Lymphocytes % 14 % Monocytes % 9 % Eosinophils % 2 % Basophils % 1 % Neutrophils # 4.7 (1.3-7.7) k/uL Lymphocytes # 0.9 L (1.0-4.8) k/uL Monocytes # 0.6 (0-1.0) k/uL Eosinophils # 0.2 (0-0.7) k/uL Basophils # 0.0 (0-0.2) k/uL Hypochromasia Marked Poikilocytosis Slight PT 10.4 (9.0-12.0) sec INR 1.0 (<1.2) APTT 25.0 (22.0-30.0) sec Sodium 138 (137-145) mmol/L Potassium 4.3 (3.5-5.1) mmol/L Chloride 104 (98-107) mmol/L Carbon Dioxide 29 (22-30) mmol/L Anion Gap 5 mmol/L BUN 32 H (7-17) mg/dL Creatinine 1.53 H (0.52-1.04) mg/dL Est GFR (CKD-EPI)AfAm 37 (>60 ml/min/1.73 sqM) Est GFR (CKD-EPI)NonAf 32 (>60 ml/min/1.73 sqM) Glucose 168 H (74-99) mg/dL Plasma Lactic Acid Hema (0.7-2.0) mmol/L Calcium 8.9 (8.4-10.2) mg/dL Phosphorus 3.4 (2.5-4.5) mg/dL Magnesium 1.6 (1.6-2.3) mg/dL Total Bilirubin 0.3 (0.2-1.3) mg/dL AST 16 (14-36) U/L ALT 13 (4-34) U/L Alkaline Phosphatase 79 (38-126) U/L Troponin I (0.000-0.034) ng/mL Total Protein 5.8 L (6.3-8.2) g/dL Albumin 3.4 L (3.5-5.0) g/dL Urine Color Urine Appearance (Clear) Urine pH (5.0-8.0) Ur Specific [place] (1.001-1.035) Urine Protein (Negative) Urine Glucose (UA) (Negative) Urine Ketones (Negative) Urine Blood (Negative) Urine Nitrite (Negative) Urine Bilirubin (Negative) Urine Urobilinogen (<2.0) mg/dL Ur Leukocyte Esterase (Negative) Urine RBC (0-5) /hpf Urine WBC (0-5) /hpf Ur Squamous Epith Cells (0-4) /hpf Hyaline Casts (0-2) /lpf Urine Mucus (None) /hpf 10/11/22 10/11/22 10/11/22 Range/Units 20:09 20:09 21:27 WBC (3.8-10.6) k/uL RBC (3.80-5.40) m/uL Hgb (11.4-16.0) gm/dL Hct (34.0-46.0) % MCV (80.0-100.0) fL MCH (25.0-35.0) pg MCHC (31.0-37.0) g/dL RDW (11.5-15.5) % Plt Count (150-450) k/uL MPV Neutrophils % % Lymphocytes % % Monocytes % % Eosinophils % % Basophils % % Neutrophils # (1.3-7.7) k/uL Lymphocytes # (1.0-4.8) k/uL Monocytes # (0-1.0) k/uL Eosinophils # (0-0.7) k/uL Basophils # (0-0.2) k/uL Hypochromasia Poikilocytosis PT (9.0-12.0) sec INR (<1.2) APTT (22.0-30.0) sec Sodium (137-145) mmol/L Potassium (3.5-5.1) mmol/L Chloride (98-107) mmol/L Carbon Dioxide (22-30) mmol/L Anion Gap mmol/L BUN (7-17) mg/dL Creatinine (0.52-1.04) mg/dL Est GFR (CKD-EPI)AfAm (>60 ml/min/1.73 sqM) Est GFR (CKD-EPI)NonAf (>60 ml/min/1.73 sqM) Glucose (74-99) mg/dL Plasma Lactic Acid Hema 1.3 (0.7-2.0) mmol/L Calcium (8.4-10.2) mg/dL Phosphorus (2.5-4.5) mg/dL Magnesium (1.6-2.3) mg/dL Total Bilirubin (0.2-1.3) mg/dL AST (14-36) U/L ALT (4-34) U/L Alkaline Phosphatase (38-126) U/L Troponin I <0.012 (0.000-0.034) ng/mL Total Protein (6.3-8.2) g/dL Albumin (3.5-5.0) g/dL Urine Color Yellow Urine Appearance Clear (Clear) Urine pH 5.5 (5.0-8.0) Ur Specific [place] 1.018 (1.001-1.035) Urine Protein Negative (Negative) Urine Glucose (UA) Negative (Negative) Urine Ketones Negative (Negative) Urine Blood Negative (Negative) Urine Nitrite Negative (Negative) Urine Bilirubin Negative (Negative) Urine Urobilinogen <2.0 (<2.0) mg/dL Ur Leukocyte Esterase Large H (Negative) Urine RBC 2 (0-5) /hpf Urine WBC 30 H (0-5) /hpf Ur Squamous Epith Cells 1 (0-4) /hpf Hyaline Casts 4 H (0-2) /lpf Urine Mucus Rare H (None) /hpf Disposition Clinical Impression: Acute cystitis, UTI (urinary tract infection), Weakness, Altered mental status, Acute kidney injury Disposition: ADMITTED IP TO THIS HOSP
[2022-10-11 20:25] LABS: Basophils % (A) 1 %; Eosinophils # (A) 0.2 k/uL (0-0.7); Eosinophils % (A) 2 %; HCT 23.8 % (34.0-46.0); Hypochromasia Marked; Lymphocytes # (A) 0.9 k/uL (1.0-4.8); Lymphocytes % (A) 14 %; MCH 24.5 pg (25.0-35.0); MCHC 29.5 g/dL (31.0-37.0); MCV 83.2 fL (80.0-100.0); Monocytes # (A) 0.6 k/uL (0-1.0); Monocytes % (A) 9 %; Neutrophils # (A) 4.7 k/uL (1.3-7.7); Neutrophils % (A) 72 %; Platelet Count 198 k/uL (150-450); Poikilocytosis Slight; RBC 2.86 m/uL (3.80-5.40); RDW 15.9 % (11.5-15.5); WBC 6.5 k/uL (3.8-10.6)
[2022-10-11 20:32] LABS: Potassium 4.3 mmol/L (3.5-5.1)
[2022-10-11 20:33] LABS: ALT 13 U/L (4-34); AST 16 U/L (14-36); African American GFR (CKD) 37 (>60 ml/min/1.73 sqM); Albumin 3.4 g/dL (3.5-5.0); Alkaline Phosphatase 79 U/L (38-126); Anion Gap 5 mmol/L; Blood Urea Nitrogen 32 mg/dL (7-17); Calcium 8.9 mg/dL (8.4-10.2); Carbon Dioxide 29 mmol/L (22-30); Chloride 104 mmol/L (98-107); Glucose 168 mg/dL (74-99); Magnesium 1.6 mg/dL (1.6-2.3); Non-African American GFR(CKD) 32 (>60 ml/min/1.73 sqM); Phosphorus 3.4 mg/dL (2.5-4.5); Sodium 138 mmol/L (137-145); Total Bilirubin 0.3 mg/dL (0.2-1.3); Total Protein 5.8 g/dL (6.3-8.2)
[2022-10-11 20:35] LABS: Prothrombin Time 10.4 sec (9.0-12.0)
[2022-10-11 22:23] LABS: Appearance,Urine Clear (Clear); Bilirubin,Urine Negative (Negative); Blood,Urine Negative (Negative); Color,Urine Yellow; Glucose,Urine (UA) Negative (Negative); Hyaline Casts,Urine 4 /lpf (0-2); Ketones,Urine Negative (Negative); Leukocyte Esterase,Urine Large (Negative); Mucus,Urine Rare /hpf; Nitrite,Urine Negative (Negative); PH, Urine 5.5 (5.0-8.0); Protein,Urine Negative (Negative); RBC,Urine 2 /hpf (0-5); Specific Gravity,Urine 1.018 (1.001-1.035); Squamous Epithelial Cell,Urine 1 /hpf (0-4); Urobilinogen,Urine <2.0 mg/dL (<2.0); WBC,Urine 30 /hpf (0-5)
[2022-10-11] MEDS ORDERED: NALOXONE 0.4 MG/ML 1 ML VIAL IV PRN (23:32)
[2022-10-11] MEDS ORDERED: MORPHINE SULFATE 4 MG/ML SYRINGE IV PRN (23:32)
[2022-10-11] MEDS ORDERED: ONDANSETRON 4 MG/2 ML VIAL IVP PRN (23:32)
[2022-10-11] MEDS: SODIUM CHLORIDE 0.9% 1,000 ML IV SCH (23:40)
[2022-10-12] MEDS: SODIUM CHLORIDE 0.9% 1,000 ML IV SCH ×3 (06:34→17:24)
[2022-10-12 07:57] LABS: ALT 13 U/L (4-34); AST 19 U/L (14-36); African American GFR (CKD) 46 (>60 ml/min/1.73 sqM); Albumin 3.7 g/dL (3.5-5.0); Alkaline Phosphatase 81 U/L (38-126); Anion Gap 8 mmol/L; Blood Urea Nitrogen 32 mg/dL (7-17); Calcium 8.8 mg/dL (8.4-10.2); Carbon Dioxide 27 mmol/L (22-30); Chloride 106 mmol/L (98-107); Glucose 154 mg/dL (74-99); Magnesium 1.6 mg/dL (1.6-2.3); Non-African American GFR(CKD) 40 (>60 ml/min/1.73 sqM); Potassium 4.2 mmol/L (3.5-5.1); Sodium 141 mmol/L (137-145); Total Bilirubin 0.3 mg/dL (0.2-1.3); Total Protein 6.1 g/dL (6.3-8.2)
[2022-10-12] MEDS ORDERED: NON FORMULARY DRUG (Fluticasone/Umeclidin/Vilanter [Trelegy Ellipta 200-62.5-25] 1 EACH Bl INHALATION SCH (08:00)
[2022-10-12] MEDS ORDERED: ALBUTEROL NEBULIZED 2.5 MG/3 ML INHALATION PRN (09:24)
[2022-10-12 09:42] LABS: Anisocytosis Slight; Basophils % (A) 1 %; Eosinophils # (A) 0.1 k/uL (0-0.7); Eosinophils % (A) 2 %; HCT 23.8 % (34.0-46.0); HGB 7.1 gm/dL (11.4-16.0); Hypochromasia Marked; Lymphocytes # (A) 1.3 k/uL (1.0-4.8); Lymphocytes % (A) 20 %; MCH 25.1 pg (25.0-35.0); MCHC 29.7 g/dL (31.0-37.0); MCV 84.3 fL (80.0-100.0); Mean Platelet Volume 9.6; Monocytes # (A) 0.6 k/uL (0-1.0); Monocytes % (A) 9 %; Neutrophils # (A) 4.1 k/uL (1.3-7.7); Neutrophils % (A) 65 %; Platelet Count 172 k/uL (150-450); Poikilocytosis Slight; RBC 2.82 m/uL (3.80-5.40); WBC 6.3 k/uL (3.8-10.6)
[2022-10-12] MEDS: APIXABAN 5 MG TAB PO SCH ×2 (09:50→21:30)
[2022-10-12] MEDS: amLODIPine 5 MG TAB PO SCH (09:50)
[2022-10-12] MEDS: PANTOPRAZOLE 40 MG TABLET PO SCH (09:51)
[2022-10-12] MEDS: QUEtiapine 100 MG TAB PO SCH (09:51)
[2022-10-12] MEDS: levETIRAcetam 500 MG TAB PO SCH ×3 (09:51→21:30)
[2022-10-12] MEDS: ASPIRIN 81 MG PO SCH (09:51)
[2022-10-12] MEDS: SYMBICORT 160-4.5 MCG INHALER INHALATION SCH ×2 (11:44→18:14)
[2022-10-12] MEDS: IPRATROPIUM 0.5 MG/2.5 ML NEBU INHALATION SCH ×3 (11:47→18:14)
[2022-10-12 12:36] LABS: Glucose,Whole Blood 168 mg/dL (70-110)
[2022-10-12] MEDS ORDERED: DEXTROSE 50% SYRINGE 50 ML IVP PRN ×2 (13:02)
[2022-10-12 17:13] LABS: Glucose,Whole Blood 183 mg/dL (70-110)
[2022-10-12] MEDS: INSULIN ASPART (NovoLOG) 100 UNIT/ML VIAL SQ SCH ×2 (17:24→21:30)
--- NOTE | 2022-10-12 20:38 | P.HPIM ---
History of Present Illness H&P Date: 10/12/22 Chief Complaint: Weak and tired This is a 77-year-old patient, follows with Dr. Vikram Zamarripa. Patient presents to the ER after feeling weak. Shaking. She was started on ant ibiotics by a family doctor for a UTI. For 3 days. No nausea vomiting. Appetite is fair. Tired. No fever no chills. No trouble breathing. No rash. No redness in the body. 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 Does use a walker. No smoking. No alcohol. Does use a wheelchair for longer distances. Physical examination: VITAL SIGNS: 98, 60, 18, 1:30/70, 95% room air GENERAL: BMI 33.3, reclining in the bed, awake a bit tired EYES: Pupils equal. Conjunctiva normal. HEENT: External appearance of nose and ears normal, oral cavity grossly normal. NECK: JVD not raised; masses not palpable. HEART: First and second heart sounds are normal; no edema. LUNGS: Respiratory rate normal; clear to auscultation. ABDOMEN: Soft, nontender, liver spleen not palpable, no masses palpable. PSYCH: Alert and oriented x3; mood and affect normal. MUSCULOSKELETAL:No Clubbing/cyanosis;muscles-grossly intact. OA NEUROLOGICAL: Cranial nerves grossly intact; no facial asymmetry, power and sensation grossly intact. LYMPHATICS: No lymph nodes palpable in the axilla and neck INVESTIGATIONS, reviewed in the clinical context: 10/12/2022: White count 6.3 hemoglobin 7.1 platelets 172 potassium 4.2 BUN 32 creatinine 1.29 UA positive for leukoesterase, WBC 10/11/2022: White count 6.5 hemoglobin 7 BUN 32 creatinine 1.53 EKG tracing personally reviewed by me-biventricular pacemaker Previous labs: Creatinine 1.2 06/07/2022 Assessment plan: -Acute medical asthenia as a combination of UTI and dehydration decreased oral intake intake. Patient's creatinine was elevated. 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 -Persistent atrial fibrillation Eliquis -Full code Care was discussed with the patient. Questions answered. Past Medical History Past Medical History: Atrial Fibrillation, Asthma, Coronary Artery Disease (CAD), Cancer, Heart Failure, CVA/TIA, Diabetes Mellitus, Eye Disorder, Hypertension, Osteoarthritis (OA), Renal Disease, Seizure Disorder Additional Past Medical History / Comment(s): Brain mass/fall with intracranial bleed/hematome-surgery at [facility], seizure after brain surgery, paroxysmal Afib, DM type II, neuropathy bilateral feet, orthostatic hypotension, SSS with pacemaker, L1 compression fx, CKD stage III, blind in L eye, UTIs, lower GI bleed, gastritis, gastric erosion, CDiff colitis, skin cancer with removals, past L arm fracture, past R arm fracture x2. History of Any Multi-Drug Resistant Organisms: MRSA Date of last positivie culture/infection: 01/26/19 MDRO Source:: URINE Past Surgical History: Cholecystectomy, Heart Catheterization, Heart Catheterization With Stent, Hysterectomy, Pacemaker Additional Past Surgical History / Comment(s): Evacuation of intracranial hematoma and ressection of hemorrhagic mass, pacemaker 2016, PCI with stent 06/06/18, EGD/colonoscopy, R eye corneal implant/cataract removal, EGD 06/2018, colonoscopy, skin cancer removal. Past Anesthesia/Blood Transfusion Reactions: No Reported Reaction Additional Past Anesthesia/Blood Transfusion Reaction / Comment(s): . Date of Last Stent Placement:: 06/06/18 Type of Cardiac Device: Permanent Pacemaker Device Placement Date:: 04/2016 Past Psychological History: Anxiety, Depression Smoking Status: Never smoker Past Alcohol Use History: None Reported Past Drug Use History: None Reported - Past Family History Mother Family Medical History: Cancer, COPD, Hypertension Additional Family Medical History / Comment(s): Mother had bone cancer. Father Family Medical History: Cancer, Hypertension Additional Family Medical History / Comment(s): Father had skin cancer. Medications and Allergies Home Medications Medication Instructions Recorded Confirmed Type Pantoprazole [Protonix] 40 mg PO DAILY 12/19/19 10/11/22 History Insulin Glargine/Lixisenatide 15 units SQ HS 10/12/21 10/11/22 History [Soliqua 100 Unit-33 Mcg/ml Pen] Albuterol Sulfate [Ventolin HFA] 2 puff INHALATION RT-Q6H PRN 05/29/22 10/11/22 History Aspirin EC [Ecotrin Low Dose] 81 mg PO DAILY 05/29/22 10/11/22 History Fluticasone/Umeclidin/Vilanter 1 puff INHALATION RT-DAILY 05/29/22 10/11/22 History [Trelegy Ellipta 200-62.5-25] Apixaban [Eliquis] 5 mg PO BID 06/25/22 10/11/22 History amLODIPine [Norvasc] 5 mg PO DAILY tab 06/29/22 10/11/22 Rx Acetaminophen Tab [Tylenol Tab] 500 - 1,000 mg PO Q6H PRN 10/11/22 10/11/22 History Calcium Carbonate/Vitamin D3 1 tab PO DAILY 10/11/22 10/11/22 History [Calcium 500 mg-Vit D3 5 mcg (200 Unit)] Cholecalciferol [Vitamin D3 (125 250 mcg PO DAILY 10/11/22 10/11/22 History Mcg = 5000 Iu)] Ciprofloxacin HCl [Cipro] 500 mg PO Q12HR 10/11/22 10/11/22 History QUEtiapine [SEROquel] 100 mg PO DAILY 10/11/22 10/11/22 History levETIRAcetam [Keppra] 500 mg PO TID 10/11/22 10/11/22 History Allergies Allergy/AdvReac Type Severity Reaction Status Date / Time Latex, Natural Rubber Allergy Itching Verified 06/25/22 14:51 sulfamethoxazole Allergy Rash/Hives Verified 06/25/22 14:51 [From Bactrim] trimethoprim [From Bactrim] Allergy Rash/Hives Verified 06/25/22 14:51 Physical Exam Vitals: Vital Signs Temp Pulse Resp BP Pulse Ox 10/12/22 09:11 97.9 F 60 16 142/57 96 10/12/22 06:31 98.4 F 60 18 161/50 94 L 10/12/22 03:00 60 15 131/81 95 10/11/22 21:30 60 16 118/50 10/11/22 21:00 60 16 153/70 10/11/22 20:30 60 16 142/48 10/11/22 20:00 60 18 142/48 96 10/11/22 18:28 98 F 60 18 130/70 95 Intake and Output 10/11/22 10/12/22 10/12/22 22:59 06:59 14:59 Other: Weight 90.718 kg Results CBC & Chem 7: 10/12/22 07:41 10/12/22 07:41 Labs: Abnormal Lab Results - Last 24 Hours (Table) 10/11/22 10/11/22 10/11/22 Range/Units 20:09 20:09 21:27 RBC 2.86 L (3.80-5.40) m/uL Hgb 7.0 L (11.4-16.0) gm/dL Hct 23.8 L (34.0-46.0) % MCH 24.5 L (25.0-35.0) pg MCHC 29.5 L (31.0-37.0) g/dL RDW 15.9 H (11.5-15.5) % Lymphocytes # 0.9 L (1.0-4.8) k/uL BUN 32 H (7-17) mg/dL Creatinine 1.53 H (0.52-1.04) mg/dL Glucose 168 H (74-99) mg/dL Total Protein 5.8 L (6.3-8.2) g/dL Albumin 3.4 L (3.5-5.0) g/dL Ur Leukocyte Esterase Large H (Negative) Urine WBC 30 H (0-5) /hpf Hyaline Casts 4 H (0-2) /lpf Urine Mucus Rare H (None) /hpf 10/12/22 Range/Units 07:41 RBC (3.80-5.40) m/uL Hgb (11.4-16.0) gm/dL Hct (34.0-46.0) % MCH (25.0-35.0) pg MCHC (31.0-37.0) g/dL RDW (11.5-15.5) % Lymphocytes # (1.0-4.8) k/uL BUN 32 H (7-17) mg/dL Creatinine 1.29 H (0.52-1.04) mg/dL Glucose 154 H (74-99) mg/dL Total Protein 6.1 L (6.3-8.2) g/dL Albumin (3.5-5.0) g/dL Ur Leukocyte Esterase (Negative) Urine WBC (0-5) /hpf Hyaline Casts (0-2) /lpf Urine Mucus (None) /hpf
[2022-10-12] MEDS ORDERED: PATIENT'S OWN (Insulin Glargine/Lixisenatide [Soliqua 100 Unit-33 Mcg/Ml Pen] 3 ML In SQ SCH (21:00)
[2022-10-12] MEDS ORDERED: ACETAMINOPHEN TAB 500 MG TAB PO PRN (21:15)
[2022-10-12 21:19] LABS: Glucose,Whole Blood 163 mg/dL (70-110)
[2022-10-12] MEDS: NYSTATIN 100,000 UNIT/GM POWD 15 GM TOPICAL SCH (21:30)
[2022-10-13] MEDS: SODIUM CHLORIDE 0.9% 1,000 ML IV SCH ×2 (04:47→08:31)
[2022-10-13 07:24] LABS: Glucose,Whole Blood 163 mg/dL (70-110)
[2022-10-13 07:39] VITALS: RESP 18
[2022-10-13] MEDS: ASPIRIN 81 MG PO SCH (08:07)
[2022-10-13] MEDS: levETIRAcetam 500 MG TAB PO SCH (08:07)
[2022-10-13] MEDS: INSULIN ASPART (NovoLOG) 100 UNIT/ML VIAL SQ SCH ×2 (08:07→12:47)
[2022-10-13] MEDS: amLODIPine 5 MG TAB PO SCH (08:07)
[2022-10-13] MEDS: PANTOPRAZOLE 40 MG TABLET PO SCH (08:08)
[2022-10-13] MEDS: APIXABAN 5 MG TAB PO SCH (08:08)
[2022-10-13] MEDS: QUEtiapine 100 MG TAB PO SCH (08:08)
[2022-10-13] MEDS: NYSTATIN 100,000 UNIT/GM POWD 15 GM TOPICAL SCH (08:08)
[2022-10-13] MEDS: IPRATROPIUM 0.5 MG/2.5 ML NEBU INHALATION SCH ×2 (08:43→11:41)
[2022-10-13] MEDS: SYMBICORT 160-4.5 MCG INHALER INHALATION SCH (08:43)
[2022-10-13] MEDS ORDERED: CHOLECALCIFEROL 125 MCG (5000 IU) TABLET PO SCH (09:00)
[2022-10-13] MEDS ORDERED: CALCIUM CARB-VIT D 500 MG-5 MCG TAB PO SCH (09:00)
[2022-10-13 11:56] LABS: Glucose,Whole Blood 167 mg/dL (70-110)
[2022-10-13 12:09] VITALS: BP 150/75; PULSE 78; TEMP 97.5
--- NOTE | 2022-10-13 18:45 | P.DS ---
Providers Date of admission: 10/11/22 23:33 Expected date of discharge: 10/13/22 Attending physician: Vikram Zamarripa [facility] Course: Chief Complaint: Weak and tired This is a 77-year-old patient, follows with Dr. Vikram Zamarripa. Patient presents to the ER after feeling weak. Shaking. She was started on antibiotics by a family doctor for a UTI. For 3 days. No nausea vomiting. Appetite is fair. Tired. No fever no chills. No trouble breathing. No rash. No redness in the body. 10/13/2022: Admitted with dehydration. Received IV fluids. Creatinine improved. Feeling well today. Tolerating diet. Keen to go home. Discussed. 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 Does use a walker. No smoking. No alcohol. Does use a wheelchair for longer distances. Physical examination: VITAL SIGNS: 97.5, 78, 18, 150/75, 94% room air GENERAL: BMI 33.3, reclining in the bed, awake comfortable EYES: Pupils equal. Conjunctiva normal. HEENT: External appearance of nose and ears normal, oral cavity grossly normal. NECK: JVD not raised; masses not palpable. HEART: First and second heart sounds are normal; no edema. LUNGS: Respiratory rate normal; clear to auscultation. ABDOMEN: Soft, nontender, liver spleen not palpable, no masses palpable. PSYCH: Alert and oriented x3; mood and affect normal. MUSCULOSKELETAL:No Clubbing/cyanosis;muscles-grossly intact. OA INVESTIGATIONS, reviewed in the clinical context: 10/12/2022: White count 6.3 hemoglobin 7.1 platelets 172 potassium 4.2 BUN 32 creatinine 1.29 UA positive for leukoesterase, WBC 10/11/2022: White count 6.5 hemoglobin 7 BUN 32 creatinine 1.53 EKG tracing personally reviewed by me-biventricular pacemaker Previous labs: Creatinine 1.2 06/07/2022 Assessment plan: -Acute medical asthenia as a combination of UTI and dehydration decreased oral intake intake. Patient's creatinine was elevated.: Improved -Acute kidney injury, likely prerenal from increased creatinine from baseline of 1.2 up to 1.53: Improved IV fluids -Acute UTI with cystitis IV ceftriaxone. Ceftin 500 mg twice a day for 2 days. 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 -Persistent atrial fibrillation Eliquis -Full code Disposition: Home Plan - Discharge Summary Discharge Rx Participant: No New Discharge Prescriptions: New cefUROXime axetiL [Ceftin] 500 mg PO BID 1 Days #4 tab Continue Pantoprazole [Protonix] 40 mg PO DAILY Fluticasone/Umeclidin/Vilanter [Trelegy Ellipta 200-62.5-25] 1 puff INHALATION RT-DAILY Aspirin EC [Ecotrin Low Dose] 81 mg PO DAILY Apixaban [Eliquis] 5 mg PO BID amLODIPine [Norvasc] 5 mg PO DAILY tab Acetaminophen Tab [Tylenol] 500 - 1,000 mg PO Q6H PRN PRN Reason: Pain Or Fever > 100.5 Calcium Carbonate/Vitamin D3 [Calcium 500 mg-Vit D3 5 mcg (200 Unit)] 1 tab PO DAILY levETIRAcetam [Keppra] 500 mg PO TID QUEtiapine [SEROquel] 100 mg PO DAILY Insulin Glargine/Lixisenatide [Soliqua 100 Unit-33 Mcg/ml Pen] 15 units SQ HS Albuterol Sulfate [Ventolin HFA] 2 puff INHALATION RT-Q6H PRN PRN Reason: Shortness Of Breath Cholecalciferol [Vitamin D3 (125 Mcg = 5000 Iu)] 250 mcg PO DAILY Discontinued Ciprofloxacin HCl [Cipro] 500 mg PO Q12HR Discharge Medication List Pantoprazole [Protonix] 40 mg PO DAILY 12/19/19 [History] Insulin Glargine/Lixisenatide [Soliqua 100 Unit-33 Mcg/ml Pen] 15 units SQ HS 08 /11/22 [History] Albuterol Sulfate [Ventolin HFA] 2 puff INHALATION RT-Q6H PRN 05/29/22 [History] Aspirin EC [Ecotrin Low Dose] 81 mg PO DAILY 05/29/22 [History] Fluticasone/Umeclidin/Vilanter [Trelegy Ellipta 200-62.5-25] 1 puff INHALATION RT-DAILY 05/29/22 [History] Apixaban [Eliquis] 5 mg PO BID 06/25/22 [History] amLODIPine [Norvasc] 5 mg PO DAILY tab 06/29/22 [Rx] Acetaminophen Tab [Tylenol] 500 - 1,000 mg PO Q6H PRN 10/11/22 [History] Calcium Carbonate/Vitamin D3 [Calcium 500 mg-Vit D3 5 mcg (200 Unit)] 1 tab PO DAILY 10/11/22 [History] Cholecalciferol [Vitamin D3 (125 Mcg = 5000 Iu)] 250 mcg PO DAILY 10/11/22 [History] QUEtiapine [SEROquel] 100 mg PO DAILY 10/11/22 [History] levETIRAcetam [Keppra] 500 mg PO TID 10/11/22 [History] cefUROXime axetiL [Ceftin] 500 mg PO BID 1 Days #4 tab 10/13/22 [Rx] Follow up Appointment(s)/Referral(s): Vikram Zamarrpia MD [Primary Care Provider] - 1-2 days [facility], [NON-STAFF] - 1-2 Days Patient Instructions/Handouts: Cefuroxime (By mouth), Urinary Tract Infection in Women (DC) Discharge Disposition: HOME SELF-CARE
== END 2022-10-13 15:10 | disposition home or self-care (01) ==
LOC: EC 18:26 → 6NMEDSUR 23:33 → 5NMEDONC 10-12 00:02
PROVIDERS: ADMIT Family Medicine; ATTEND Family Medicine
DX: N30.00 Acute cystitis without hematuria (principal); E86.0 Dehydration; I13.0 Hypertensive heart and chronic kidney disease with heart failure and stage 1 through stage 4 chronic kidney disease, or unspecified chronic kidney disease; E11.22 Type 2 diabetes mellitus with diabetic chronic kidney disease; N18.30 Chronic kidney disease, stage 3 unspecified; I50.9 Heart failure, unspecified; I25.10 Atherosclerotic heart disease of native coronary artery without angina pectoris; J45.909 Unspecified asthma, uncomplicated; I48.0 Paroxysmal atrial fibrillation; G40.909 Epilepsy, unspecified, not intractable, without status epilepticus; H57.9 Unspecified disorder of eye and adnexa; M19.90 Unspecified osteoarthritis, unspecified site; E11.40 Type 2 diabetes mellitus with diabetic neuropathy, unspecified; N17.9 Acute kidney failure, unspecified; E11.42 Type 2 diabetes mellitus with diabetic polyneuropathy; I49.5 Sick sinus syndrome; K29.70 Gastritis, unspecified, without bleeding; F32.A Depression, unspecified; F41.9 Anxiety disorder, unspecified; G93.9 Disorder of brain, unspecified; H54.62 Unqualified visual loss, left eye, normal vision right eye; Z79.899 Other long term (current) drug therapy; Z79.4 Long term (current) use of insulin; Z79.82 Long term (current) use of aspirin; Z79.01 Long term (current) use of anticoagulants; Z88.2 Allergy status to sulfonamides; Z91.040 Latex allergy status; Z86.73 Personal history of transient ischemic attack (TIA), and cerebral infarction without residual deficits; Z95.0 Presence of cardiac pacemaker; Z87.440 Personal history of urinary (tract) infections; Z86.14 Personal history of Methicillin resistant Staphylococcus aureus infection; Z85.828 Personal history of other malignant neoplasm of skin; Z87.11 Personal history of peptic ulcer disease; Z90.49 Acquired absence of other specified parts of digestive tract; Z90.710 Acquired absence of both cervix and uterus; Z82.49 Family history of ischemic heart disease and other diseases of the circulatory system; Z82.5 Family history of asthma and other chronic lower respiratory diseases; Z80.8 Family history of malignant neoplasm of other organs or systems
CPT/HCPCS: 96361 ×2; 96365; 96366; 36415; 94640 ×4; 94760 ×2; 93005; 80053 ×2; 83605; 83735 ×2; 84100 ×2; 84484; 85025 ×2; 85610; 85730; 81001; 83036; G0378 ×2; J0696 ×2

== ENCOUNTER 2023-01-20 10:46 | Inpatient (IN) | payer MEDICARE ==
--- NOTE | 2023-01-20 11:12 | ED ---
General Adult HPI - General Stated complaint: weakness Time Seen by Provider: 01/20/23 10:50 Source: patient, RN notes reviewed Limitations: no limitations - History of Present Illness Initial comments: Patient is a pleasant 77-year-old female presenting to the emergency department with concerns with weakness. Patient is somewhat a poor historian. Patient believes symptoms may have started a couple days ago. Patient is unable to stand up on her own and walk. Patient states prior to this she was able to. Patient states she has been eating and drinking well however EMS reported the patient has not been. Patient does admit to occasional cough when questioned. No isolated area of weakness or confusion. - Related Data Home Medications Medication Instructions Recorded Confirmed Pantoprazole [Protonix] 40 mg PO DAILY 12/19/19 10/11/22 Insulin Glargine/Lixisenatide 15 units SQ HS 10/12/21 10/11/22 [Soliqua 100 Unit-33 Mcg/ml Pen] Albuterol Sulfate [Ventolin HFA] 2 puff INHALATION RT-Q6H PRN 05/29/22 10/11/22 Aspirin EC [Ecotrin Low Dose] 81 mg PO DAILY 05/29/22 10/11/22 Fluticasone/Umeclidin/Vilanter 1 puff INHALATION RT-DAILY 05/29/22 10/11/22 [Trelegy Ellipta 200-62.5-25] Apixaban [Eliquis] 5 mg PO BID 06/25/22 10/11/22 Acetaminophen Tab [Tylenol] 500 - 1,000 mg PO Q6H PRN 10/11/22 10/11/22 Calcium Carbonate/Vitamin D3 1 tab PO DAILY 10/11/22 10/11/22 [Calcium 500 mg-Vit D3 5 mcg (200 Unit)] Cholecalciferol [Vitamin D3 (125 250 mcg PO DAILY 10/11/22 10/11/22 Mcg = 5000 Iu)] QUEtiapine [SEROquel] 100 mg PO DAILY 10/11/22 10/11/22 levETIRAcetam [Keppra] 500 mg PO TID 10/11/22 10/11/22 Previous Rx's Medication Instructions Recorded amLODIPine [Norvasc] 5 mg PO DAILY tab 06/29/22 cefUROXime axetiL [Ceftin] 500 mg PO BID 1 Days #4 tab 10/13/22 Allergies Allergy/AdvReac Type Severity Reaction Status Date / Time Latex, Natural Rubber Allergy Itching Verified 01/20/23 11:16 sulfamethoxazole Allergy Rash/Hives Verified 01/20/23 11:16 [From Bactrim] trimethoprim [From Bactrim] Allergy Rash/Hives Verified 01/20/23 11:16 Review of Systems ROS Statement: Those systems with pertinent positive or pertinent negative responses have been documented in the HPI. ROS Other: All systems not noted in ROS Statement are negative. Constitutional: Denies: fever Eyes: Denies: eye pain ENT: Denies: ear pain Respiratory: Reports: cough Cardiovascular: Denies: chest pain Endocrine: Denies: fatigue Gastrointestinal: Denies: abdominal pain Genitourinary: Denies: urgency Musculoskeletal: Denies: back pain Skin: Denies: rash Neurological: Reports: as per HPI, weakness Past Medical History Past Medical History: Atrial Fibrillation, Asthma, Coronary Artery Disease (CAD), Cancer, Heart Failure, CVA/TIA, Diabetes Mellitus, Eye Disorder, Hypertension, Osteoarthritis (OA), Renal Disease, Seizure Disorder Additional Past Medical History / Comment(s): Brain mass/fall with intracranial bleed/hematome-surgery at [facility], seizure after brain surgery, paroxysmal Afib, DM type II, neuropathy bilateral feet, orthostatic hypotension, SSS with pacemaker, L1 compression fx, CKD stage III, blind in L eye, UTIs, lower GI bleed, gastritis, gastric erosion, CDiff colitis, skin cancer with removals, past L arm fracture, past R arm fracture x2. History of Any Multi-Drug Resistant Organisms: MRSA Date of last positivie culture/infection: 01/26/19 MDRO Source:: URINE Past Surgical History: Cholecystectomy, Heart Catheterization, Heart Catheterization With Stent, Hysterectomy, Pacemaker Additional Past Surgical History / Comment(s): Evacuation of intracranial hematoma and ressection of hemorrhagic mass, pacemaker 2016, PCI with stent 06/06/18, EGD/colonoscopy, R eye corneal implant/cataract removal, EGD 06/2018, colonoscopy, skin cancer removal. Past Anesthesia/Blood Transfusion Reactions: No Reported Reaction Additional Past Anesthesia/Blood Transfusion Reaction / Comment(s): . Date of Last Stent Placement:: 06/06/18 Type of Cardiac Device: Permanent Pacemaker Device Placement Date:: 04/2016 Past Psychological History: Anxiety, Depression Smoking Status: Never smoker Past Alcohol Use History: None Reported Past Drug Use History: None Reported - Past Family History Mother Family Medical History: Cancer, COPD, Hypertension Additional Family Medical History / Comment(s): Mother had bone cancer. Father Family Medical History: Cancer, Hypertension Additional Family Medical History / Comment(s): Father had skin cancer. General Exam Limitations: no limitations General appearance: alert, in no apparent distress Head exam: Present: normocephalic Eye exam: Present: normal appearance ENT exam: Present: mucous membranes dry Neck exam: Present: normal inspection Respiratory exam: Present: normal lung sounds bilaterally Cardiovascular Exam: Present: regular rate, normal rhythm GI/Abdominal exam: Present: soft. Absent: tenderness Extremities exam: Present: normal inspection Neurological exam: Present: alert, oriented X3, CN II-XII intact Expanded Neurological exam: Present: protecting the airway Patient oriented to: Present: person, place, time Speech: Present: fluid speech Cranial nerves: EOM's Intact: Normal Sensory exam: Upper Extremity Light Touch: Normal, Lower Extremity Light Touch: Normal Motor strength exam: RUE: 5, LUE: 5, RLE: 5, LLE: 5 Eye Response: (4) open spontaneously Motor Response: (6) obeys commands Verbal Response: (5) oriented Psychiatric exam: Present: normal affect, normal mood Skin exam: Present: normal color Course Vital Signs 01/20/23 01/20/23 01/20/23 11:00 11:12 11:30 Temperature Pulse Rate 60 Respiratory 18 Rate Blood Pressure 122/43 118/54 118/54 O2 Sat by Pulse 96 95 Oximetry 01/20/23 01/20/23 01/20/23 12:00 13:00 13:27 Temperature 92.9 F L Pulse Rate 60 Respiratory 20 Rate Blood Pressure 118/54 126/43 O2 Sat by Pulse 94 L 92 L Oximetry - Reevaluation(s) Reevaluation #1: 01/20/23 12:59 Fluid bolus based of ideal body weight of 5 foot 5 inch female of 56.7 kg which turns out to be 1701 mL EKG Findings - EKG Results: EKG: interpreted by ERMD (Left axis. Paced rhythm with a rate of 60. Wide QRS complex. Nonspecific ST-T.) Procedures - Sepsis Sepsis Focused Exam #1 Time Sepsis Criteria Met: 12:50 Sepsis Focused Exam Date: 01/20/23 Sepsis Focused Exam Time: 13:32 Sepsis Focused Exam Complete: Yes Vital Signs & RN Notes Reviewed: Yes Capillary Refill: < 2 Seconds: Fingers, Toes Peripheral Pulses: Normal: Radial (R), Radial (L) Skin Color: Normal for Patient Respiratory Exam: normal lung sounds Cardiovascular Exam: regular rate, normal rhythm Medical Decision Making - Medical Decision Making Was pt. sent in by a medical professional or institution ([facility], [employer]CHIT[employer], urgent care, hospital, or intermediate...) When possible be specific @ -No Did you speak to anyone other than the patient for history (EMS, parent, family, police, friend...)? What history was obtained from this source @ -No Did you review nursing and triage notes (agree or disagree)? Why? @ -I reviewed and agree with nursing and triage notes Were old charts reviewed (outside hosp., previous admission, EMS record, old EKG, old radiological studies, urgent care reports/EKG's, intermediate records)? Report findings @ -Previous admission reviewed Differential Diagnosis (chest pain, altered mental status, abdominal pain women, abdominal pain men, vaginal bleeding, weakness, fever, dyspnea, syncope, headache, dizziness, GI bleed, back pain, seizure, CVA, palpatations, mental health, musculoskeletal)? @ -Differential Weakness: Hypoglycemia, shock, sepsis, hyponatremia, anemia, infection, WA, ETOH, adverse medicine reaction, overdose, stroke, this is not meant to be an all-inclusive list. EKG interpreted by me (3pts min.). @ -As above X-rays interpreted by me (1pt min.). @ -Chest x-ray concerning for multifocal infiltrates CT interpreted by me (1pt min.). @ -None done U/S interpreted by me (1pt. min.). @ -None done What testing was considered but not performed or refused? (CT, X-rays, U/S, labs)? Why? @ -None What meds were considered but not given or refused? Why? @ -None Did you discuss the management of the patient with other professionals (professionals i.e. [facility] Luis, [employer] ARCHITECT, lab, RT, psych nurse, neonatal social worker, log brander, teacher, chief school finance officer, case packer and sealer)? Give summary @ -Case discussed with Dr. Zamarripa who will admit his patient Was smoking cessation discussed for >3mins.? @ -No Was critical care preformed (if so, how long)? @ -32 minutes critical care time. Were there social determinants of health that impacted care today? How? (Homelessness, low income, unemployed, alcoholism, drug addiction, transportation, low edu. Level, literacy, decrease access to med. care, fpc, rehab)? @ -No Was there de-escalation of care discussed even if they declined (Discuss DNR or withdrawal of care, Hospice)? DNR status @ -No What co-morbidities impacted this encounter? (DM, HTN, Smoking, COPD, CAD, Cancer, CVA, ARF, Chemo, Hep., AIDS, mental health diagnosis, sleep apnea, morbid obesity)? @ -None Was patient admitted / discharged? Hospital course, mention meds given and route, prescriptions, significant lab abnormalities, going to OR and other pertinent info. @ -Patient reevaluated and resting comfortably in bed. Family is present. Patient and family updated. Patient will be admitted. There is concern for pneumonia and sepsis. Blood culture and lactic acid and IV antibiotic's will be started. CBC will be redrawn. Undiagnosed new problem with uncertain prognosis? @ -No Drug Therapy requiring intensive monitoring for toxicity (Heparin, Nitro, Insulin, Cardizem)? @ -No Were any procedures done? @ -No Diagnosis/symptom? @ -Focal pneumonia, septic shock, weakness, dehydration Acute, or Chronic, or Acute on Chronic? @ -Acute, acute, acute, acute Uncomplicated (without systemic symptoms) or Complicated (systemic symptoms)? @ -default Side effects of treatment? @ -No Exacerbation, Progression, or Severe Exacerbation? @ -No Poses a threat to life or bodily function? How? (Chest pain, [place], WA, pneumonia, PE, COPD, DKA, ARF, appy, cholecystitis, CVA, Diverticulitis, Homicidal, Suicidal, threat to staff... and all critical care pts) @ -Threat to life and function through septic shock and dehydration and multifocal pneumonia - Lab Data Result diagrams: 01/20/23 12:49 01/20/23 11:17 Lab Results 11/19/23 11/19/23 11/19/23 Range/Units 11:17 11:17 11:17 WBC 15.6 H (3.8-10.6) k/uL RBC 1.99 L (3.80-5.40) m/uL Hgb 4.2 L* (11.4-16.0) gm/dL Hct 14.4 L* (34.0-46.0) % MCV 72.3 L (80.0-100.0) fL MCH 21.0 L (25.0-35.0) pg MCHC 29.0 L (31.0-37.0) g/dL RDW 27.6 H (11.5-15.5) % Plt Count 124 L (150-450) k/uL MPV 9.3 Neutrophils % Not Reportable Neutrophils % (Manual) 81 % Band Neuts % (Manual) 1 % Lymphocytes % Not Reportable Lymphocytes % (Manual) 8 % Monocytes % Not Reportable Monocytes % (Manual) 5 % Eosinophils % Not Reportable Eosinophils % (Manual) 1 % Basophils % Not Reportable Basophils % (Manual) 0 % Metamyelocytes % 1 % Myelocytes % 3 % Neutrophils # Not Reportable Neutrophils # (Manual) 12.70 H (1.3-7.7) k/uL Lymphocytes # Not Reportable Lymphocytes # (Manual) 1.25 (1.0-4.8) k/uL Monocytes # Not Reportable Monocytes # (Manual) 0.78 (0-1.0) k/uL Eosinophils # Not Reportable Eosinophils # (Manual) 0.16 (0-0.7) k/uL Basophils # Not Reportable Basophils # (Manual) 0.00 (0-0.2) k/uL Metamyelocytes # (Man) 0.16 H (0) k/uL Myelocytes # (Manual) 0.47 H (0) k/uL Nucleated RBCs 1 H (0-0) /100 WBC Manual Slide Review Performed Toxic Granulation Present Polychromasia Present Hypochromasia Marked Poikilocytosis Slight Anisocytosis Marked Microcytosis Marked PT 12.7 H (10.0-12.5) sec INR 1.2 H (<1.2) APTT 25.9 (22.0-30.0) sec Sodium (137-145) mmol/L Potassium (3.5-5.1) mmol/L Chloride (98-107) mmol/L Carbon Dioxide (22-30) mmol/L Anion Gap mmol/L BUN (7-17) mg/dL Creatinine (0.52-1.04) mg/dL Est GFR (CKD-EPI)AfAm (>60 ml/min/1.73 sqM) Est GFR (CKD-EPI)NonAf (>60 ml/min/1.73 sqM) Glucose (74-99) mg/dL Plasma Lactic Acid Hema (0.7-2.0) mmol/L Calcium (8.4-10.2) mg/dL Magnesium (1.6-2.3) mg/dL Total Bilirubin (0.2-1.3) mg/dL AST (14-36) U/L ALT (4-34) U/L Alkaline Phosphatase (38-126) U/L Troponin I (0.000-0.034) ng/mL Total Protein (6.3-8.2) g/dL Albumin (3.5-5.0) g/dL TSH (0.465-4.680) mIU/L Urine Color Yellow Urine Appearance Cloudy H (Clear) Urine pH 5.0 (5.0-8.0) Ur Specific [place] 1.019 (1.001-1.035) Urine Protein Trace H (Negative) Urine Glucose (UA) Negative (Negative) Urine Ketones Negative (Negative) Urine Blood Negative (Negative) Urine Nitrite Negative (Negative) Urine Bilirubin Negative (Negative) Urine Urobilinogen <2.0 (<2.0) mg/dL Ur Leukocyte Esterase Small H (Negative) Urine RBC 3 (0-5) /hpf Urine WBC 9 H (0-5) /hpf Ur Squamous Epith Cells 4 (0-4) /hpf Amorphous Sediment Rare H (None) /hpf Urine Bacteria Rare H (None) /hpf Hyaline Casts 119 H (0-2) /lpf Urine Mucus Rare H (None) /hpf Influenza Type A (PCR) (Not Detectd) Influenza Type B (PCR) (Not Detectd) RSV (PCR) (Not Detectd) SARS-CoV-2 (PCR) (Not Detectd) 01/20/23 01/20/23 01/20/23 Range/Units 11:17 11:17 11:17 WBC (3.8-10.6) k/uL RBC (3.80-5.40) m/uL Hgb (11.4-16.0) gm/dL Hct (34.0-46.0) % MCV (80.0-100.0) fL MCH (25.0-35.0) pg MCHC (31.0-37.0) g/dL RDW (11.5-15.5) % Plt Count (150-450) k/uL MPV Neutrophils % Neutrophils % (Manual) % Band Neuts % (Manual) % Lymphocytes % Lymphocytes % (Manual) % Monocytes % Monocytes % (Manual) % Eosinophils % Eosinophils % (Manual) % Basophils % Basophils % (Manual) % Metamyelocytes % % Myelocytes % % Neutrophils # Neutrophils # (Manual) (1.3-7.7) k/uL Lymphocytes # Lymphocytes # (Manual) (1.0-4.8) k/uL Monocytes # Monocytes # (Manual) (0-1.0) k/uL Eosinophils # Eosinophils # (Manual) (0-0.7) k/uL Basophils # Basophils # (Manual) (0-0.2) k/uL Metamyelocytes # (Man) (0) k/uL Myelocytes # (Manual) (0) k/uL Nucleated RBCs (0-0) /100 WBC Manual Slide Review Toxic Granulation Polychromasia Hypochromasia Poikilocytosis Anisocytosis Microcytosis PT (10.0-12.5) sec INR (<1.2) APTT (22.0-30.0) sec Sodium 136 L (137-145) mmol/L Potassium 5.3 H (3.5-5.1) mmol/L Chloride 101 (98-107) mmol/L Carbon Dioxide 22 (22-30) mmol/L Anion Gap 13 mmol/L BUN 65 H (7-17) mg/dL Creatinine 2.01 H (0.52-1.04) mg/dL Est GFR (CKD-EPI)AfAm 27 (>60 ml/min/1.73 sqM) Est GFR (CKD-EPI)NonAf 23 (>60 ml/min/1.73 sqM) Glucose 220 H (74-99) mg/dL Plasma Lactic Acid Hema 5.2 H* (0.7-2.0) mmol/L Calcium 9.6 (8.4-10.2) mg/dL Magnesium 2.1 (1.6-2.3) mg/dL Total Bilirubin 0.6 (0.2-1.3) mg/dL AST 29 (14-36) U/L ALT 25 (4-34) U/L Alkaline Phosphatase 95 (38-126) U/L Troponin I <0.012 (0.000-0.034) ng/mL Total Protein 5.6 L (6.3-8.2) g/dL Albumin 3.3 L (3.5-5.0) g/dL TSH 4.190 (0.465-4.680) mIU/L Urine Color Urine Appearance (Clear) Urine pH (5.0-8.0) Ur Specific [place] (1.001-1.035) Urine Protein (Negative) Urine Glucose (UA) (Negative) Urine Ketones (Negative) Urine Blood (Negative) Urine Nitrite (Negative) Urine Bilirubin (Negative) Urine Urobilinogen (<2.0) mg/dL Ur Leukocyte Esterase (Negative) Urine RBC (0-5) /hpf Urine WBC (0-5) /hpf Ur Squamous Epith Cells (0-4) /hpf Amorphous Sediment (None) /hpf Urine Bacteria (None) /hpf Hyaline Casts (0-2) /lpf Urine Mucus (None) /hpf Influenza Type A (PCR) (Not Detectd) Influenza Type B (PCR) (Not Detectd) RSV (PCR) (Not Detectd) SARS-CoV-2 (PCR) (Not Detectd) 01/20/23 01/20/23 Range/Units 11:17 12:49 WBC 17.0 H (3.8-10.6) k/uL RBC 2.17 L (3.80-5.40) m/uL Hgb 4.6 L* (11.4-16.0) gm/dL Hct 15.8 L* (34.0-46.0) % MCV 73.0 L (80.0-100.0) fL MCH 21.3 L (25.0-35.0) pg MCHC 29.2 L (31.0-37.0) g/dL RDW 27.2 H (11.5-15.5) % Plt Count 127 L (150-450) k/uL MPV 8.8 Neutrophils % 86 Neutrophils % (Manual) % Band Neuts % (Manual) % Lymphocytes % 8 Lymphocytes % (Manual) % Monocytes % 5 Monocytes % (Manual) % Eosinophils % 0 Eosinophils % (Manual) % Basophils % 1 Basophils % (Manual) % Metamyelocytes % % Myelocytes % % Neutrophils # 14.5 H Neutrophils # (Manual) (1.3-7.7) k/uL Lymphocytes # 1.3 Lymphocytes # (Manual) (1.0-4.8) k/uL Monocytes # 0.8 Monocytes # (Manual) (0-1.0) k/uL Eosinophils # 0.1 Eosinophils # (Manual) (0-0.7) k/uL Basophils # 0.1 Basophils # (Manual) (0-0.2) k/uL Metamyelocytes # (Man) (0) k/uL Myelocytes # (Manual) (0) k/uL Nucleated RBCs (0-0) /100 WBC Manual Slide Review Toxic Granulation Polychromasia Hypochromasia Marked Poikilocytosis Slight Anisocytosis Marked Microcytosis Marked PT (10.0-12.5) sec INR (<1.2) APTT (22.0-30.0) sec Sodium (137-145) mmol/L Potassium (3.5-5.1) mmol/L Chloride (98-107) mmol/L Carbon Dioxide (22-30) mmol/L Anion Gap mmol/L BUN (7-17) mg/dL Creatinine (0.52-1.04) mg/dL Est GFR (CKD-EPI)AfAm (>60 ml/min/1.73 sqM) Est GFR (CKD-EPI)NonAf (>60 ml/min/1.73 sqM) Glucose (74-99) mg/dL Plasma Lactic Acid Hema (0.7-2.0) mmol/L Calcium (8.4-10.2) mg/dL Magnesium (1.6-2.3) mg/dL Total Bilirubin (0.2-1.3) mg/dL AST (14-36) U/L ALT (4-34) U/L Alkaline Phosphatase (38-126) U/L Troponin I (0.000-0.034) ng/mL Total Protein (6.3-8.2) g/dL Albumin (3.5-5.0) g/dL TSH (0.465-4.680) mIU/L Urine Color Urine Appearance (Clear) Urine pH (5.0-8.0) Ur Specific [place] (1.001-1.035) Urine Protein (Negative) Urine Glucose (UA) (Negative) Urine Ketones (Negative) Urine Blood (Negative) Urine Nitrite (Negative) Urine Bilirubin (Negative) Urine Urobilinogen (<2.0) mg/dL Ur Leukocyte Esterase (Negative) Urine RBC (0-5) /hpf Urine WBC (0-5) /hpf Ur Squamous Epith Cells (0-4) /hpf Amorphous Sediment (None) /hpf Urine Bacteria (None) /hpf Hyaline Casts (0-2) /lpf Urine Mucus (None) /hpf Influenza Type A (PCR) Not Detected (Not Detectd) Influenza Type B (PCR) Not Detected (Not Detectd) RSV (PCR) Not Detected (Not Detectd) SARS-CoV-2 (PCR) Not Detected (Not Detectd) Critical Care Time Critical Care Time: Yes Total Critical Care Time: 32 Disposition Clinical Impression: Multifocal pneumonia, Dehydration, Septic shock Disposition: ADMITTED IP TO THIS [facility] Condition: Serious Time of Disposition: 12:58
--- NOTE | 2023-01-20 11:40 | XR ---
EXAMINATION TYPE: XR chest 2V DATE OF EXAM: 01/20/2023 11:36 AM CLINICAL INDICATION:Female, 77 years old with history of Weakness. COMPARISON: Chest radiographs from TECHNIQUE: XR chest 2V Frontal and lateral views of the chest. FINDINGS: Lungs/Pleura: Bilateral multifocal airspace opacities are identified. Trace bilateral pleural effusio ns. Pulmonary vascularity: Unremarkable. Heart/mediastinum: Cardiomediastinal silhouette is unremarkable. Musculoskeletal: No acute osseous pathology. Other findings: Left chest wall AICD device. IMPRESSION: Bilateral multifocal airspace disease with trace pleural effusions.
--- NOTE | 2023-01-20 11:46 | CT ---
EXAMINATION TYPE: CT brain wo con CT DLP: 1095.4 mGycm, Automated exposure control for dose reduction was used. DATE OF EXAM: 01/20/2023 11:39 AM COMPARISON: CT brain 06/27/2022.. CLINICAL INDICATION:Female, 77 years old with history of weakness, ams. TECHNIQUE: Brain: Axial CT images of the brain were obtained with coronal and sagittal reformats created and rev iewed. Contrast used: None. Oral contrast used: None. FINDINGS: Brain: Extra-axial spaces: No abnormal extra-axial fluid collections. Ventricular system:Ex vacuo dilation of the posterior horn of the right lateral ventricle. Cerebral parenchyma: Redemonstration of encephalomalacia involving the right parietal lobe. Scattered areas of hypoattenuation in the subcortical white matter, likely related to chronic ischemic small v essel disease. Cerebellum: Unremarkable. Mass effect: No evidence of midline shift. Intracranial vasculature: unremarkable Soft tissues: Normal. Calvarium/osseous structures: Postcraniotomy changes of the right parietal calvarium. Paranasal sinuses and mastoid air cells: Mild scattered paranasal sinus disease. Visualized orbits: Orbital contents are intact. IMPRESSION: 1. No acute intracranial process. 2. Stable postsurgical findings with encephalomalacia in the right parietal lobe.
[2023-01-20 12:01] LABS: Anisocytosis Marked; Hypochromasia Marked; MCV 72.3 fL (80.0-100.0); Mean Platelet Volume 9.3; Microcytosis Marked; Platelet Count 124 k/uL (150-450); Poikilocytosis Slight; RBC 1.99 m/uL (3.80-5.40)
[2023-01-20 12:02] LABS: HGB 4.2 gm/dL (11.4-16.0); RDW 27.6 % (11.5-15.5)
[2023-01-20 12:03] LABS: HCT 14.4 % (34.0-46.0)
[2023-01-20 12:15] LABS: INR 1.2 (<1.2); Partial Thromboplastin Time 25.9 sec (22.0-30.0); Prothrombin Time 12.7 sec (10.0-12.5)
[2023-01-20 12:16] LABS: ALT 25 U/L (4-34); AST 29 U/L (14-36); African American GFR (CKD) 27 (>60 ml/min/1.73 sqM); Albumin 3.3 g/dL (3.5-5.0); Alkaline Phosphatase 95 U/L (38-126); Amorphous Sediment,Urine Rare /hpf; Anion Gap 13 mmol/L; Appearance,Urine Cloudy (Clear); Bacteria,Urine Rare /hpf; Bilirubin,Urine Negative (Negative); Blood Urea Nitrogen 65 mg/dL (7-17); Blood,Urine Negative (Negative); Calcium 9.6 mg/dL (8.4-10.2); Carbon Dioxide 22 mmol/L (22-30); Chloride 101 mmol/L (98-107); Color,Urine Yellow; Glucose 220 mg/dL (74-99); Glucose,Urine (UA) Negative (Negative); Hyaline Casts,Urine 119 /lpf (0-2); Ketones,Urine Negative (Negative); Leukocyte Esterase,Urine Small (Negative); Magnesium 2.1 mg/dL (1.6-2.3); Mucus,Urine Rare /hpf; Nitrite,Urine Negative (Negative); Non-African American GFR(CKD) 23 (>60 ml/min/1.73 sqM); Potassium 5.3 mmol/L (3.5-5.1); Protein,Urine Trace (Negative); RBC,Urine 3 /hpf (0-5); Sodium 136 mmol/L (137-145); Specific Gravity,Urine 1.019 (1.001-1.035); Squamous Epithelial Cell,Urine 4 /hpf (0-4); Total Bilirubin 0.6 mg/dL (0.2-1.3); Total Protein 5.6 g/dL (6.3-8.2); Urobilinogen,Urine <2.0 mg/dL (<2.0); WBC,Urine 9 /hpf (0-5)
[2023-01-20] MEDS ORDERED: SODIUM CHLORIDE 0.9% 2,000 ML IV STA (12:58)
[2023-01-20] MEDS ORDERED: SODIUM CHLORIDE 0.9% 1,000 ML IV STA (12:58)
[2023-01-20] MEDS ORDERED: SODIUM CHLORIDE 0.9% IV STA (12:59)
[2023-01-20] MEDS ORDERED: AZITHROMYCIN 500 MG in SODIUM CHLORIDE 0.9% 250 ML IVPB STA (13:00)
[2023-01-20] MEDS ORDERED: PNEUMONIA PROTOCOL UTILIZED 1 EACH MISC PO PRN (13:00)
[2023-01-20 13:03] LABS: Band Neutrophils % 1 %; Eosinophils # (M) 0.16 k/uL (0-0.7); Metamyelocytes # (M) 0.16 k/uL (0); Metamyelocytes % 1 %; Nucleated Red Blood Cells 1 /100 WBC (0-0)
[2023-01-20 13:04] LABS: Polychromasia Present
[2023-01-20 13:11] LABS: Neutrophils % (M) 81 %
[2023-01-20 13:13] LABS: Toxic Granulation Present
[2023-01-20 13:17] LABS: Lymphocytes # (M) 1.25 k/uL (1.0-4.8); Monocytes # (M) 0.78 k/uL (0-1.0); Myelocytes # (M) 0.47 k/uL (0); Myelocytes % 3 %; Total Cells Counted 304; WBC 15.6 k/uL (3.8-10.6)
[2023-01-20 13:18] LABS: Anisocytosis Marked; Basophils # (A) 0.1 k/uL (0-0.2); Basophils % (A) 1 %; Eosinophils # (A) 0.1 k/uL (0-0.7); Eosinophils % (A) 0 %; Hypochromasia Marked; Lymphocytes # (A) 1.3 k/uL (1.0-4.8); Lymphocytes % (A) 8 %; MCH 21.3 pg (25.0-35.0); MCHC 29.2 g/dL (31.0-37.0); Mean Platelet Volume 8.8; Microcytosis Marked; Monocytes # (A) 0.8 k/uL (0-1.0); Monocytes % (A) 5 %; Neutrophils # (A) 14.5 k/uL (1.3-7.7); Neutrophils % (A) 86 %; Platelet Count 127 k/uL (150-450); Poikilocytosis Slight; RBC 2.17 m/uL (3.80-5.40)
[2023-01-20 13:21] LABS: HCT 15.8 % (34.0-46.0); HGB 4.6 gm/dL (11.4-16.0); RDW 27.2 % (11.5-15.5)
[2023-01-20] MEDS ORDERED: PANTOPRAZOLE 40 MG/10 ML VIAL IVP STA (13:28)
[2023-01-20] MEDS ORDERED: SODIUM FERRIC GLUCONAT-SUCROSE 125 MG in SODIUM CHLORIDE 0.9% 100 ML IVPB ONE (15:30)
--- NOTE | 2023-01-20 15:32 | P.CNPUL ---
History of Present Illness Consult date: 01/20/23 Chief complaint: Severe anemia History of present illness: 77-year-old female patient, multiple medical problems and comorbidities, comes from home with generalized weakness. Significant blood work abnormalities and the patient was found to have an initial hemoglobin of 4.2, hemoglobin was repeated at 4.6. The white cycles of 15.6. MCV level is at 72 consistent with iron deficiency anemia. Platelet counts are also low at 124. Also, the patient normal coagulation profile, sodium levels of 136 with a potassium level of 5.3, BUN is 65 and a creatinine of 2.01. Troponins are negative. LFTs are normal. Thyroid function tests are normal. Lactic acid level is at 5.2. Covid 19 testing was negative and the patient is currently on 2 L of oxygen by nasal cannula. Chest x-ray shows small bites pleural effusion along with increased interstitial markings bilaterally. The patient is hypothermic. The patient has been hospitalized on multiple occasions. She was in the hospital back in October 2022 feeling weak and at that time the patient was found to be anemic again. CAT scan of the abdomen was done that showed diverticulosis. Her previous EGD was done back in 2019. recent colonoscopies. Patient denies having any bright red blood per rectum. No melanotic stools. No hematemesis. Abdominal pain. No nausea and emesis. She has had previous blood work that showed iron deficiency. She is on anticoagulation with Eliquis. The patient is known to have multiple medical problems and comorbidities. The patient has CAD with previous stent, history of A. fib, hypertension, history of benign brain mass, peripheral neuropathy, sick sinus syndrome and the patient is a pacemaker in place and the with that the patient has chronic stage III kidney disease. The patient is blind in her left eye. The computed tomography scan of the brain was repeated during this current admission showed no acute abnormalities. There is stable postsurgical changes along with encephalomalacia involving the right parietal lobe. Her previous echo cardiac exam showed a preserved LV function. Previous CAT scan of the chest showed bilateral pleural effusion and interstitial edema along with extensive atherosclerosis. Review of Systems Patient is a very poor historian. 14 point review of system was done. The overall performance of functional status is poor Constitutional: Reports fatigue, Reports poor appetite, Reports weakness, Reports weight loss Eyes: left blurred vision, left decreased vision, denies as per HPI, denies bulging eye Ears: bilateral: decreased hearing, deny: ear discharge, earache, tinnitus Ears, nose, mouth and throat: Reports as per HPI Breasts: absent: as per HPI, change in shape, gynecomastia, masses, nipple discharge, pain, skin changes, swelling Cardiovascular: Reports decreased exercise tolerance Respiratory: Reports as per HPI Gastrointestinal: Reports abdominal pain Genitourinary: Reports as per HPI Menstruation: Reports as per HPI Musculoskeletal: Reports as per HPI, Reports arm numbness/tingling, Reports frequent falls Musculoskeletal: absent: ankle pain, ankle stiffness, ankle swelling Integumentary: Reports as per HPI Neurological: Reports balance difficulties, Reports gait dysfunction, Reports memory loss, Reports syncope Psychiatric: Reports as per HPI Endocrine: Reports as per HPI Hematologic/Lymphatic: Reports as per HPI Allergic/Immunologic: Reports as per HPI Past Medical History Past Medical History: Atrial Fibrillation, Asthma, Coronary Artery Disease (CAD ), Cancer, Heart Failure, CVA/TIA, Diabetes Mellitus, Eye Disorder, Hypertension, Osteoarthritis (OA), Renal Disease, Seizure Disorder Additional Past Medical History / Comment(s): Brain mass/fall with intracranial bleed/hematome-surgery at [facility], seizure after brain surgery, paroxysmal Afib, DM type II, neuropathy bilateral feet, orthostatic hypotension, SSS with pacemaker, L1 compression fx, CKD stage III, blind in L eye, UTIs, lower GI bleed, gastritis, gastric erosion, CDiff colitis, skin cancer with removals, past L arm fracture, past R arm fracture x2. History of Any Multi-Drug Resistant Organisms: MRSA Date of last positivie culture/infection: 01/26/19 MDRO Source:: URINE Past Surgical History: Cholecystectomy, Heart Catheterization, Heart Catheterization With Stent, Hysterectomy, Pacemaker Additional Past Surgical History / Comment(s): Evacuation of intracranial hematoma and ressection of hemorrhagic mass, pacemaker 2016, PCI with stent 06/06/18, EGD/colonoscopy, R eye corneal implant/cataract removal, EGD 06/2018, colonoscopy, skin cancer removal. Past Anesthesia/Blood Transfusion Reactions: No Reported Reaction Additional Past Anesthesia/Blood Transfusion Reaction / Comment(s): . Date of Last Stent Placement:: 06/06/18 Type of Cardiac Device: Permanent Pacemaker Device Placement Date:: 04/2016 Past Psychological History: Anxiety, Depression Smoking Status: Never smoker Past Alcohol Use History: None Reported Past Drug Use History: None Reported - Past Family History Mother Family Medical History: Cancer, COPD, Hypertension Additional Family Medical History / Comment(s): Mother had bone cancer. Father Family Medical History: Cancer, Hypertension Additional Family Medical History / Comment(s): Father had skin cancer. Medications and Allergies Home Medications Medication Instructions Recorded Confirmed Type Pantoprazole [Protonix] 40 mg PO DAILY 12/19/19 01/20/23 History Insulin Glargine/Lixisenatide 15 units SQ HS 10/12/21 01/20/23 History [Soliqua 100 Unit-33 Mcg/ml Pen] Albuterol Sulfate [Ventolin HFA] 2 puff INHALATION RT-Q6H PRN 05/29/22 01/20/23 History Aspirin EC [Ecotrin Low Dose] 81 mg PO DAILY 05/29/22 01/20/23 History Fluticasone/Umeclidin/Vilanter 1 puff INHALATION RT-DAILY 05/29/22 01/20/23 History [Trelegy Ellipta 200-62.5-25] Apixaban [Eliquis] 5 mg PO BID 06/25/22 01/20/23 History amLODIPine [Norvasc] 5 mg PO DAILY tab 06/29/22 01/20/23 Rx Acetaminophen Tab [Tylenol] 500 - 1,000 mg PO Q6H PRN 10/11/22 01/20/23 History Calcium Carbonate/Vitamin D3 1 tab PO DAILY 10/11/22 01/20/23 History [Calcium 500 mg-Vit D3 5 mcg (200 Unit)] Cholecalciferol [Vitamin D3 (125 250 mcg PO DAILY 10/11/22 01/20/23 History Mcg = 5000 Iu)] QUEtiapine [SEROquel] 100 mg PO DAILY 10/11/22 01/20/23 History levETIRAcetam [Keppra] 500 mg PO TID 10/11/22 01/20/23 History Ipratropium-Albuterol Nebulize 3 ml INHALATION RT-BID 01/20/23 01/20/23 History [Duoneb 0.5 mg-3 mg/3 ml Soln] Allergies Allergy/AdvReac Type Severity Reaction Status Date / Time Latex, Natural Rubber Allergy Itching Verified 01/20/23 13:38 sulfamethoxazole Allergy Rash/Hives Verified 01/20/23 13:38 [From Bactrim] trimethoprim [From Bactrim] Allergy Rash/Hives Verified 01/20/23 13:38 Physical Exam Vitals: Vital Signs Temp Pulse Resp BP Pulse Ox 01/20/23 15:00 92.9 F L 66 20 139/39 94 L 01/20/23 14:37 93 F L 01/20/23 14:00 60 18 111/33 93 L 01/20/23 13:27 92.9 F L 01/20/23 13:00 60 20 126/43 92 L 01/20/23 12:00 118/54 94 L 01/20/23 11:30 118/54 01/20/23 11:12 60 18 118/54 95 01/20/23 11:00 122/43 96 Intake and Output 01/20/23 01/20/23 01/20/23 06:59 14:59 22:59 Other: Weight 77.111 kg GENERAL: , reclining in the bed, awake a bit tired EYES: Pupils equal. Conjunctiva is pale due to her underlying anemia Head exam was generally normal. There was no scleral icterus or corneal arcus. Mucous membranes were moist. HEENT: External appearance of nose and ears normal, oral cavity grossly normal. NECK: JVD not raised; masses not palpable. HEART: First and second heart sounds are normal; no edema. LUNGS: Respiratory rate normal; clear to auscultation. ABDOMEN: Soft, nontender, liver spleen not palpable, no masses palpable. PSYCH: Alert and oriented x3; mood and affect normal. MUSCULOSKELETAL:No Clubbing/cyanosis;muscles-grossly intact. NEUROLOGICAL: Cranial nerves grossly intact; no facial asymmetry, power and sensation grossly intact. LYMPHATICS: No lymph nodes palpable in the axilla and neck Results - Laboratory Findings CBC and BMP: 01/20/23 12:49 01/20/23 11:17 ABG WBC 17.0 k/uL (3.8-10.6) H 01/20/23 12:49 RBC 2.17 m/uL (3.80-5.40) L 01/20/23 12:49 Hgb 4.6 gm/dL (11.4-16.0) L* 01/20/23 12:49 Hct 15.8 % (34.0-46.0) L* 01/20/23 12:49 MCV 73.0 fL (80.0-100.0) L 01/20/23 12:49 MCH 21.3 pg (25.0-35.0) L 01/20/23 12:49 MCHC 29.2 g/dL (31.0-37.0) L 01/20/23 12:49 RDW 27.2 % (11.5-15.5) H 01/20/23 12:49 Plt Count 127 k/uL (150-450) L 01/20/23 12:49 MPV 8.8 01/20/23 12:49 Neutrophils % 86 % 01/20/23 12:49 Neutrophils % (Manual) 81 % 01/20/23 11:17 Band Neuts % (Manual) 1 % 01/20/23 11:17 Lymphocytes % 8 % 01/20/23 12:49 Lymphocytes % (Manual) 8 % 01/20/23 11:17 Monocytes % 5 % 01/20/23 12:49 Monocytes % (Manual) 5 % 01/20/23 11:17 Eosinophils % 0 % 01/20/23 12:49 Eosinophils % (Manual) 1 % 01/20/23 11:17 Basophils % 1 % 01/20/23 12:49 Basophils % (Manual) 0 % 01/20/23 11:17 Metamyelocytes % 1 % 01/20/23 11:17 Myelocytes % 3 % 01/20/23 11:17 Neutrophils # 14.5 k/uL (1.3-7.7) H 01/20/23 12:49 Neutrophils # (Manual) 12.70 k/uL (1.3-7.7) H 01/20/23 11:17 Lymphocytes # 1.3 k/uL (1.0-4.8) 01/20/23 12:49 Lymphocytes # (Manual) 1.25 k/uL (1.0-4.8) 01/20/23 11:17 Monocytes # 0.8 k/uL (0-1.0) 01/20/23 12:49 Monocytes # (Manual) 0.78 k/uL (0-1.0) 01/20/23 11:17 Eosinophils # 0.1 k/uL (0-0.7) 01/20/23 12:49 Eosinophils # (Manual) 0.16 k/uL (0-0.7) 01/20/23 11:17 Basophils # 0.1 k/uL (0-0.2) 01/20/23 12:49 Basophils # (Manual) 0.00 k/uL (0-0.2) 01/20/23 11:17 Metamyelocytes # (Man) 0.16 k/uL (0) H 01/20/23 11:17 Myelocytes # (Manual) 0.47 k/uL (0) H 01/20/23 11:17 Nucleated RBCs 1 /100 WBC (0-0) H 01/20/23 11:17 Manual Slide Review Performed 01/20/23 11:17 Toxic Granulation Present 01/20/23 11:17 Polychromasia Present 01/20/23 11:17 Hypochromasia Marked 01/20/23 12:49 Poikilocytosis Slight 01/20/23 12:49 Anisocytosis Marked 01/20/23 12:49 Microcytosis Marked 01/20/23 12:49 PT 12.7 sec (10.0-12.5) H 01/20/23 11:17 INR 1.2 (<1.2) H 01/20/23 11:17 APTT 25.9 sec (22.0-30.0) 01/20/23 11:17 Sodium 136 mmol/L (137-145) L 01/20/23 11:17 Potassium 5.3 mmol/L (3.5-5.1) H 01/20/23 11:17 Chloride 101 mmol/L (98-107) 01/20/23 11:17 Carbon Dioxide 22 mmol/L (22-30) 01/20/23 11:17 Anion Gap 13 mmol/L 01/20/23 11:17 BUN 65 mg/dL (7-17) H 01/20/23 11:17 Creatinine 2.01 mg/dL (0.52-1.04) H 01/20/23 11:17 Est GFR (CKD-EPI)AfAm 27 (>60 ml/min/1.73 sqM) 01/20/23 11:17 Est GFR (CKD-EPI)NonAf 23 (>60 ml/min/1.73 sqM) 01/20/23 11:17 Glucose 220 mg/dL (74-99) H 01/20/23 11:17 Lactic Ac Sepsis Rflx Y 01/20/23 12:34 Plasma Lactic Acid Hema 5.2 mmol/L (0.7-2.0) H* 01/20/23 11:17 Calcium 9.6 mg/dL (8.4-10.2) 01/20/23 11:17 Magnesium 2.1 mg/dL (1.6-2.3) 01/20/23 11:17 Total Bilirubin 0.6 mg/dL (0.2-1.3) 01/20/23 11:17 AST 29 U/L (14-36) 01/20/23 11:17 ALT 25 U/L (4-34) 01/20/23 11:17 Alkaline Phosphatase 95 U/L (38-126) 01/20/23 11:17 Troponin I <0.012 ng/mL (0.000-0.034) 01/20/23 11:17 Total Protein 5.6 g/dL (6.3-8.2) L 01/20/23 11:17 Albumin 3.3 g/dL (3.5-5.0) L 01/20/23 11:17 TSH 4.190 mIU/L (0.465-4.680) 01/20/23 11:17 Urine Color Yellow 01/20/23 11:17 Urine Appearance Cloudy (Clear) H 01/20/23 11:17 Urine pH 5.0 (5.0-8.0) 01/20/23 11:17 Ur Specific [place] 1.019 (1.001-1.035) 01/20/23 11:17 Urine Protein Trace (Negative) H 01/20/23 11:17 Urine Glucose (UA) Negative (Negative) 01/20/23 11:17 Urine Ketones Negative (Negative) 01/20/23 11:17 Urine Blood Negative (Negative) 01/20/23 11:17 Urine Nitrite Negative (Negative) 01/20/23 11:17 Urine Bilirubin Negative (Negative) 01/20/23 11:17 Urine Urobilinogen <2.0 mg/dL (<2.0) 01/20/23 11:17 Ur Leukocyte Esterase Small (Negative) H 01/20/23 11:17 Urine RBC 3 /hpf (0-5) 01/20/23 11:17 Urine WBC 9 /hpf (0-5) H 01/20/23 11:17 Ur Squamous Epith Cells 4 /hpf (0-4) 01/20/23 11:17 Amorphous Sediment Rare /hpf (None) H 01/20/23 11:17 Urine Bacteria Rare /hpf (None) H 01/20/23 11:17 Hyaline Casts 119 /lpf (0-2) H 01/20/23 11:17 Urine Mucus Rare /hpf (None) H 01/20/23 11:17 Influenza Type A (PCR) Not Detected (Not Detectd) 01/20/23 11:17 Influenza Type B (PCR) Not Detected (Not Detectd) 01/20/23 11:17 RSV (PCR) Not Detected (Not Detectd) 01/20/23 11:17 SARS-CoV-2 (PCR) Not Detected (Not Detectd) 01/20/23 11:17 PT/INR, D-dimer PT 12.7 sec (10.0-12.5) H 01/20/23 11:17 INR 1.2 (<1.2) H 01/20/23 11:17 Abnormal lab findings: Abnormal Labs 01/20/23 01/20/23 01/20/23 11:17 11:17 11:17 WBC 15.6 H RBC 1.99 L Hgb 4.2 L* Hct 14.4 L* MCV 72.3 L MCH 21.0 L MCHC 29.0 L RDW 27.6 H Plt Count 124 L Neutrophils # Neutrophils # (Manual) 12.70 H Metamyelocytes # (Man) 0.16 H Myelocytes # (Manual) 0.47 H Nucleated RBCs 1 H PT 12.7 H INR 1.2 H Sodium Potassium BUN Creatinine Glucose Plasma Lactic Acid Hema Total Protein Albumin Urine Appearance Cloudy H Urine Protein Trace H Ur Leukocyte Esterase Small H Urine WBC 9 H Amorphous Sediment Rare H Urine Bacteria Rare H Hyaline Casts 119 H Urine Mucus Rare H Crossmatch 01/20/23 01/20/23 01/20/23 11:17 11:17 12:49 WBC 17.0 H RBC 2.17 L Hgb 4.6 L* Hct 15.8 L* MCV 73.0 L MCH 21.3 L MCHC 29.2 L RDW 27.2 H Plt Count 127 L Neutrophils # 14.5 H Neutrophils # (Manual) Metamyelocytes # (Man) Myelocytes # (Manual) Nucleated RBCs PT INR Sodium 136 L Potassium 5.3 H BUN 65 H Creatinine 2.01 H Glucose 220 H Plasma Lactic Acid Hema 5.2 H* Total Protein 5.6 L Albumin 3.3 L Urine Appearance Urine Protein Ur Leukocyte Esterase Urine WBC Amorphous Sediment Urine Bacteria Hyaline Casts Urine Mucus Crossmatch 01/20/23 13:35 WBC RBC Hgb Hct MCV MCH MCHC RDW Plt Count Neutrophils # Neutrophils # (Manual) Metamyelocytes # (Man) Myelocytes # (Manual) Nucleated RBCs PT INR Sodium Potassium BUN Creatinine Glucose Plasma Lactic Acid Hema Total Protein Albumin Urine Appearance Urine Protein Ur Leukocyte Esterase Urine WBC Amorphous Sediment Urine Bacteria Hyaline Casts Urine Mucus Crossmatch See Detail - Diagnostic Findings Chest x-ray: image reviewed Assessment and Plan Plan: Acute on chronic anemia, microcytic in nature, consider blood loss anemia. The patient is suspected to have occult GI bleed. Last EGD was done in 2019. No recent colonoscopies. CAT scan of the abdomen that was done on 05/29/2022 showed diverticulosis without diverticulitis. The patient is iron deficient. The patient is also on anticoagulation with Eliquis Acute hypoxic respiratory failure currently on 2 L and the patient has bilateral pleural effusion. Rule out underlying CHF Generalized weakness, multifactorial, exacerbated by development of an anemia Chronic stage III B kidney disease Chronic A. fib, maintain on anticoagulation with Eliquis Diabetes mellitus type 2 Coronary artery disease COPD History of a brain lesion postcraniotomy and the CAT scan of the brain shows postsurgical changes Peripheral Neuropathy 6 sinus syndrome and the patient is a pacemaker in place L1 compression fracture Left eye blindness Hypothermia. Mild lactic acidosis Plan Gently assisted patient with fluids and packed RBC. A total of 2 units were ordered. We'll give one at bedtime and monitor the patient for any fluid overload IV iron supplements May need to have an EGD and colonoscopy for further workup Hold anticoagulation External warming Monitor renal function Resume all medications except anticoagulants We'll continue to follow
[2023-01-20 18:28] LABS: Anisocytosis Marked; Hypochromasia Marked; MCH 23.8 pg (25.0-35.0); MCHC 30.6 g/dL (31.0-37.0); MCV 77.7 fL (80.0-100.0); Mean Platelet Volume 9.2; Microcytosis Marked; Platelet Count 142 k/uL (150-450); Poikilocytosis Moderate; RBC 2.44 m/uL (3.80-5.40); RDW 24.8 % (11.5-15.5); WBC 19.8 k/uL (3.8-10.6)
[2023-01-20 18:32] LABS: HGB 5.8 gm/dL (11.4-16.0)
[2023-01-20] MEDS ORDERED: ALBUTEROL NEBULIZED 2.5 MG/3 ML INHALATION PRN (22:27)
[2023-01-20 22:38] LABS: Glucose,Whole Blood 175 mg/dL (70-110)
[2023-01-20] MEDS ORDERED: NON FORMULARY DRUG (Insulin Glargine/Lixisenatide [Soliqua 100 Unit-33 Mcg/Ml Pen] 3 ML In SQ SCH (22:45)
[2023-01-20 23:21] LABS: % Iron Saturation 6.81 (12.00-45.00)
[2023-01-20] MEDS: levETIRAcetam 500 MG TAB PO SCH (23:25)
[2023-01-20] MEDS: QUEtiapine 100 MG TAB PO SCH (23:25)
[2023-01-20] MEDS ORDERED: DEXTROSE 50% SYRINGE 50 ML IVP PRN ×2 (23:54)
[2023-01-21 02:57] LABS: Anisocytosis Moderate; HCT 24.2 % (34.0-46.0); Hypochromasia Marked; MCH 25.4 pg (25.0-35.0); MCHC 31.4 g/dL (31.0-37.0); MCV 80.8 fL (80.0-100.0); Mean Platelet Volume 10.7; Microcytosis Moderate; Platelet Count 159 k/uL (150-450); Poikilocytosis Marked; RDW 22.6 % (11.5-15.5)
[2023-01-21 03:07] LABS: HGB 7.6 gm/dL (11.4-16.0)
[2023-01-21 03:38] LABS: Band Neutrophils % 4 %; Metamyelocytes # (M) 0.19 k/uL (0); Metamyelocytes % 1 %; Myelocytes # (M) 0.19 k/uL (0); Myelocytes % 1 %; Neutrophils % (M) 77 %; Nucleated Red Blood Cells 2 /100 WBC (0-0); Total Cells Counted 200
[2023-01-21 03:39] LABS: Lymphocytes # (M) 1.87 k/uL (1.0-4.8); Monocytes # (M) 1.31 k/uL (0-1.0); WBC 18.7 k/uL (3.8-10.6)
[2023-01-21 03:40] LABS: Poikilocytosis (M) Present; Toxic Granulation Present
[2023-01-21 03:41] LABS: Polychromasia Present
[2023-01-21 06:07] LABS: Glucose,Whole Blood 159 mg/dL (70-110)
[2023-01-21] MEDS: INSULIN ASPART (NovoLOG) 100 UNIT/ML VIAL SQ SCH ×4 (06:20→21:30)
[2023-01-21] MEDS: PANTOPRAZOLE 40 MG TABLET PO SCH (06:20)
[2023-01-21] MEDS: QUEtiapine 100 MG TAB PO SCH (07:49)
[2023-01-21] MEDS: AZITHROMYCIN 500 MG TAB PO SCH (07:49)
[2023-01-21] MEDS: CHOLECALCIFEROL 125 MCG (5000 IU) TABLET PO SCH (07:49)
[2023-01-21] MEDS: amLODIPine 5 MG TAB PO SCH (07:49)
[2023-01-21] MEDS: levETIRAcetam 500 MG TAB PO SCH ×3 (07:50→21:30)
[2023-01-21] MEDS: CALCIUM CARB-VIT D 500 MG-5 MCG TAB PO SCH (07:50)
--- NOTE | 2023-01-21 08:42 | XR ---
EXAMINATION TYPE: XR chest 1V portable DATE OF EXAM: 01/21/2023 7:14 AM CLINICAL INDICATION:Female, 77 years old with history of pneumonia; [facility] COMPARISON: Chest radiographs from 01/20/2023 TECHNIQUE: XR chest 1V portable Frontal view of the chest. FINDINGS: Lungs/Pleura: No evidence of focal consolidation or pneumothorax. Blunting of the costophrenic angles is present. Pulmonary vascularity: Pulmonary vascular congestion. Heart/mediastinum: Cardiomediastinal silhouette is enlarged and stable. Atherosclerotic calcificatio ns are seen in the aorta. Two lead cardiac conduction device overlying the left hemithorax with lead tips projecting over the right ventricle and right atrium. Musculoskeletal: No acute osseous pathology. IMPRESSION: Cardiomegaly, pulmonary vascular congestion and bilateral pleural effusions. Correlate with BNP for c ongestive heart failure. Superimposed pneumonia not entirely excluded.
[2023-01-21] MEDS: SYMBICORT 80-4.5 MCG INHALER INHALATION SCH ×2 (09:19→20:50)
[2023-01-21] MEDS: IPRATROPIUM-ALBUTEROL 3 ML NEB INHALATION SCH ×2 (09:19→20:50)
[2023-01-21] MEDS ORDERED: ZINC OXIDE PASTE (Z-GUARD) 1 APPLIC APPLIC TOPICAL PRN (11:17)
[2023-01-21 11:47] LABS: Glucose,Whole Blood 157 mg/dL (70-110)
[2023-01-21] MEDS: IPRATROPIUM 0.5 MG/2.5 ML NEBU INHALATION SCH ×2 (13:13→16:56)
--- NOTE | 2023-01-21 15:29 | P.PN ---
Subjective Progress Note Date: 01/21/23 Principal diagnosis: Acute hypoxic respiratory failure secondary to acute diastolic congestive heart failure, doubt pneumonia 77-year-old female patient, multiple medical problems and comorbidities, comes from home with generalized weakness. Significant blood work abnormalities and the patient was found to have an initial hemoglobin of 4.2, hemoglobin was repeated at 4.6. The white cycles of 15.6. MCV level is at 72 consistent with iron deficiency anemia. Platelet counts are also low at 124. Also, the patient normal coagulation profile, sodium levels of 136 with a potassium level of 5.3, BUN is 65 and a creatinine of 2.01. Troponins are negative. LFTs are normal. Thyroid function tests are normal. Lactic acid level is at 5.2. Covid 19 testing was negative and the patient is currently on 2 L of oxygen by nasal cannula. Chest x-ray shows small bites pleural effusion along with increased interstitial markings bilaterally. The patient is hypothermic. The patient has been hospitalized on multiple occasions. She was in the hospital back in October 2022 feeling weak and at that time the patient was found to be anemic again. CAT scan of the abdomen was done that showed diverticulosis. Her previous EGD was done back in 2019. recent colonoscopies. Patient denies having any bright red blood per rectum. No melanotic stools. No hematemesis. Abdominal pain. No nausea and emesis. She has had previous blood work that showed iron deficiency. She is on anticoagulation with Eliquis. The patient is known to have multiple medical problems and comorbidities. The patient has CAD with previous stent, history of A. fib, hypertension, history of benign brain mass, peripheral neuropathy, sick sinus syndrome and the patient is a pacemaker in place and the with that the patient has chronic stage III kidney disease. The patient is blind in her left eye. The computed tomography scan of the brain was repeated during this current admission showed no acute abnormalities. There is stable postsurgical changes along with encephalomalacia involving the right parietal lobe. Her previous echo cardiac exam showed a preserved LV function. Previous CAT scan of the chest showed bilateral pleural effusion and interstitial edema along with extensive atherosclerosis. Patient was reevaluated today 01/21/2023, patient is on room air, O2 sats is 98%, feeling better today compared to yesterday, breathing easier, nonetheless she feels generally weak. Continues to have leukocytosis with WBC count of 18.7 hemoglobin is 7.6, patient did receive 2 units of packed RBCs since admission, patient presented with a hemoglobin of 4.2 initially on admission yesterday. BNP level on admission was over 15 800 , patient is not receiving any diuretics at present. He is receiving bronchodilators and antibiotics. On admission the patient had a BUN of 65 and creatinine of 2.01 her baseline creatinine is in the range of 1.29. Chest x-ray this morning is showing significant improvement compared to the chest x-ray on admission. Objective - Vital Signs Vital signs: Vital Signs Temp 97.3 F L 01/21/23 13:31 Pulse 62 01/21/23 13:20 Resp 18 01/21/23 13:20 BP 128/71 01/21/23 11:00 Pulse Ox 98 01/21/23 11:00 FiO2 Intake & Output 01/20/23 01/21/23 01/21/23 18:59 06:59 18:59 Intake Total 310 815 Output Total 200 Balance 310 615 Weight 77.111 kg 77.111 kg Intake: Oral 540 Blood Product 310 275 Rc As-1 Unit 310 [id number] Rc Pheresis As-3 Unit 275 [id number] Output: Urine 200 Other: Voiding Method Indwelling Catheter Indwelling Catheter - Exam Physical Exam: Revealed 77-year-old female in no distress Head: Atraumatic, normocephalic HEENT:[Neck is supple.] [No neck masses.] [No thyromegaly.] [No JVD.] Chest: [Crackles at the bases and diminished breath sound bilaterally Cardiac Exam: [Normal S1 and S2, no S3 gallop, no murmur.] Abdomen: [Soft, nontender, no megaly, no rebound, no guarding, normal bowel sounds.] Extremities: [No clubbing, 1+ bipedal edema, no cyanosis.] Neurological Exam: [No focal neurologic deficit.] Patient is generally weak. Psychiatric: Normal mood, flat affect, normal mental status examination. Skin: No rashes - Labs CBC & Chem 7: 01/21/23 02:18 01/20/23 11:17 Labs: Abnormal Lab Results - Last 24 Hours (Table) 01/20/23 01/20/23 01/20/23 Range/Units 11:17 13:35 14:47 WBC (3.8-10.6) k/uL RBC (3.80-5.40) m/uL Hgb (11.4-16.0) gm/dL Hct (34.0-46.0) % MCV (80.0-100.0) fL MCH (25.0-35.0) pg MCHC (31.0-37.0) g/dL RDW (11.5-15.5) % Plt Count (150-450) k/uL Neutrophils # (Manual) (1.3-7.7) k/uL Monocytes # (Manual) (0-1.0) k/uL Metamyelocytes # (Man) (0) k/uL Myelocytes # (Manual) (0) k/uL Nucleated RBCs (0-0) /100 WBC POC Glucose (mg/dL) (70-110) mg/dL Hemoglobin A1c (<=6.0) % Plasma Lactic Acid Hema 2.6 H* (0.7-2.0) mmol/L Iron 32 L (50-170) UG/DL TIBC 470 H (228-460) UG/DL % Saturation 6.81 L (12.00-45.00) Crossmatch See Detail 01/20/23 01/20/23 01/21/23 Range/Units 18:00 22:36 02:18 WBC 19.8 H (3.8-10.6) k/uL RBC 2.44 L (3.80-5.40) m/uL Hgb 5.8 L* (11.4-16.0) gm/dL Hct 19.0 L* (34.0-46.0) % MCV 77.7 L (80.0-100.0) fL MCH 23.8 L (25.0-35.0) pg MCHC 30.6 L (31.0-37.0) g/dL RDW 24.8 H (11.5-15.5) % Plt Count 142 L (150-450) k/uL Neutrophils # (Manual) (1.3-7.7) k/uL Monocytes # (Manual) (0-1.0) k/uL Metamyelocytes # (Man) (0) k/uL Myelocytes # (Manual) (0) k/uL Nucleated RBCs (0-0) /100 WBC POC Glucose (mg/dL) 175 H (70-110) mg/dL Hemoglobin A1c 6.3 H (<=6.0) % Plasma Lactic Acid Hema (0.7-2.0) mmol/L Iron (50-170) UG/DL TIBC (228-460) UG/DL % Saturation (12.00-45.00) Crossmatch 01/21/23 01/21/23 01/21/23 Range/Units 02:18 06:05 11:45 WBC 18.7 H (3.8-10.6) k/uL RBC 3.00 L (3.80-5.40) m/uL Hgb 7.6 L D (11.4-16.0) gm/dL Hct 24.2 L (34.0-46.0) % MCV (80.0-100.0) fL MCH (25.0-35.0) pg MCHC (31.0-37.0) g/dL RDW 22.6 H (11.5-15.5) % Plt Count (150-450) k/uL Neutrophils # (Manual) 15.10 H (1.3-7.7) k/uL Monocytes # (Manual) 1.31 H (0-1.0) k/uL Metamyelocytes # (Man) 0.19 H (0) k/uL Myelocytes # (Manual) 0.19 H (0) k/uL Nucleated RBCs 2 H (0-0) /100 WBC POC Glucose (mg/dL) 159 H 157 H (70-110) mg/dL Hemoglobin A1c (<=6.0) % Plasma Lactic Acid Hema (0.7-2.0) mmol/L Iron (50-170) UG/DL TIBC (228-460) UG/DL % Saturation (12.00-45.00) Crossmatch Assessment and Plan Assessment: Impression: Acute on chronic anemia most likely this is a blood loss anemia, will need further GI evaluation to figure out the exact source of her blood losses. Acute hypoxic respiratory failure, with bilateral pleural effusions I still suspect that we are dealing with acute diastolic congestive heart failure, underlying pneumonia is felt to be less likely but not entirely ruled out. Generalized weakness, multifactorial Chronic kidney disease stage IIIB Chronic atrial fibrillation, maintained on eliquis Type 2 diabetes with diabetic nephropathy Underlying coronary artery disease Underlying COPD/asthma Peripheral neuropathy/diabetic neuropathy 6 sinus syndrome and previous pacemaker implantation History of L1 compression fracture Profound hypothermia on present with profound anemia, resolved Recommendation: Considering the patient is feeling better clinically I would recommend we continue the same treatment Continue iron supplement and consult gastroenterology for EGD and colonoscopy Continue to hold anticoagulation therapy Consider gentle diuresis although her chest x-ray is showing improvement today compared to the chest x-ray on admission Resume home meds except anticoagulation medications We will continue to follow Time with Patient: Less than 30
[2023-01-21 15:56] LABS: Anisocytosis Moderate; HCT 22.7 % (34.0-46.0); Hypochromasia Marked; MCH 24.7 pg (25.0-35.0); MCHC 30.8 g/dL (31.0-37.0); MCV 80.2 fL (80.0-100.0); Microcytosis Moderate; Platelet Count 193 k/uL (150-450); Poikilocytosis Marked; RBC 2.83 m/uL (3.80-5.40); RDW 23.7 % (11.5-15.5); Reticulocyte % 2.6 % (0.5-2.0); WBC 21.6 k/uL (3.8-10.6)
[2023-01-21 16:47] LABS: Glucose,Whole Blood 142 mg/dL (70-110)
--- NOTE | 2023-01-21 19:48 | P.CONS ---
History of Present Illness - Reason for Consult Consult date: 01/21/23 anemia Requesting physician: Willy Bansal - Chief Complaint weakness - History of Present Illness Ms. Montes is a 77-year-old female with PMH of CAD with stent, pacemaker 2016, a- fib on anticoagulation, HTN, uterine cancer treated with surgery many years ago, CKD, COPD and peripheral neuropathy who presented to ER with c/o weakness x 1week, persistent, she was unable to ambulate any longer with walker. We have been asked to see for significant anemia. Anemia is 1st noted in this chart June 2022-7 range-prior her Hgb was normal. CKD noted since 2017. She denied any bloody noses, gum bleeding, she does vomit after eating sometimes but denies black or bloody emesis, she does bruise easily, no unusual bruises or hematomas, denies fever, chills, falls or new pain prior to admit. Hgb was 4.2 on admit, 4.6 on recheck, she has received 2 units PRBCs and her Hgb today 7.6. MCV/MCH 72.3/21, increased RDW, iron sat 7.1. She states she was told to take iron pills in the past but they upset her stomach. Eliquis has been held, coags were WNL. BUN/Cr 65/2.01. She had an EGD 06/2018 and 12/2019, there is documentation of colonoscopy but, no op reports that one was done here, pt does not remember if she ever had a colonoscopy. Review of Systems 10 point ROS is as stated in HPI Past Medical History Past Medical History: Atrial Fibrillation, Asthma, Coronary Artery Disease (CAD), Cancer, Heart Failure, CVA/TIA, Diabetes Mellitus, Eye Disorder, Hypertension, Osteoarthritis (OA), Renal Disease, Seizure Disorder Additional Past Medical History / Comment(s): Brain mass/fall with intracranial bleed/hematome-surgery at [facility], seizure after brain surgery, paroxysmal Afib, DM type II, neuropathy bilateral feet, orthostatic hypotension, SSS with pacemaker, L1 compression fx, CKD stage III, blind in L eye, UTIs, lower GI bleed, gastritis, gastric erosion, CDiff colitis, skin cancer with removals, past L arm fracture, past R arm fracture x2. History of Any Multi-Drug Resistant Organisms: MRSA Year Discovered:: 01/26/19 MDRO Source:: URINE Past Surgical History: Cholecystectomy, Heart Catheterization, Heart Catheterization With Stent, Hysterectomy, Pacemaker Additional Past Surgical History / Comment(s): Evacuation of intracranial hematoma and ressection of hemorrhagic mass, pacemaker 2016, PCI with stent 06/06/18, EGD/colonoscopy, R eye corneal implant/cataract removal, EGD 06/2018, colonoscopy, skin cancer removal. Past Anesthesia/Blood Transfusion Reactions: No Reported Reaction Additional Past Anesthesia/Blood Transfusion Reaction / Comm: . Date of Last Stent Placement:: 06/06/18 Type of Cardiac Device: Permanent Pacemaker Device Placement Date:: 04/2016 Past Psychological History: Anxiety, Depression Additional Psychological History / Comment(s): She uses a walker and has a wheelchair for longer distaces. She no longer drives, her family drives her to [email or web address]. Her son manages her medications. Smoking Status: Never smoker Past Alcohol Use History: None Reported Past Drug Use History: None Reported - Past Family History Mother Family Medical History: Cancer, COPD, Hypertension Additional Family Medical History / Comment(s): Mother had bone cancer. Father Family Medical History: Cancer, Hypertension Additional Family Medical History / Comment(s): Father had skin cancer. Medications and Allergies Home Medications Medication Instructions Recorded Confirmed Type Pantoprazole [Protonix] 40 mg PO DAILY 12/19/19 01/20/23 History Insulin Glargine/Lixisenatide 15 units SQ HS 10/12/21 01/20/23 History [Soliqua 100 Unit-33 Mcg/ml Pen] Albuterol Sulfate [Ventolin HFA] 2 puff INHALATION RT-Q6H PRN 05/29/22 01/20/23 History Aspirin EC [Ecotrin Low Dose] 81 mg PO DAILY 05/29/22 01/20/23 History Fluticasone/Umeclidin/Vilanter 1 puff INHALATION RT-DAILY 05/29/22 01/20/23 History [Trelegy Ellipta 200-62.5-25] Apixaban [Eliquis] 5 mg PO BID 06/25/22 01/20/23 History amLODIPine [Norvasc] 5 mg PO DAILY tab 06/29/22 01/20/23 Rx Acetaminophen Tab [Tylenol] 500 - 1,000 mg PO Q6H PRN 10/11/22 01/20/23 History Calcium Carbonate/Vitamin D3 1 tab PO DAILY 10/11/22 01/20/23 History [Calcium 500 mg-Vit D3 5 mcg (200 Unit)] Cholecalciferol [Vitamin D3 (125 250 mcg PO DAILY 10/11/22 01/20/23 History Mcg = 5000 Iu)] QUEtiapine [SEROquel] 100 mg PO DAILY 10/11/22 01/20/23 History levETIRAcetam [Keppra] 500 mg PO TID 10/11/22 01/20/23 History Ipratropium-Albuterol Nebulize 3 ml INHALATION RT-BID 01/20/23 01/20/23 History [Duoneb 0.5 mg-3 mg/3 ml Soln] Allergies Allergy/AdvReac Type Severity Reaction Status Date / Time Latex, Natural Rubber Allergy Itching Verified 01/20/23 13:38 sulfamethoxazole Allergy Rash/Hives Verified 01/20/23 13:38 [From Bactrim] trimethoprim [From Bactrim] Allergy Rash/Hives Verified 01/20/23 13:38 Physical Exam Vitals: Vital Signs Temp Pulse Pulse Resp BP BP Pulse Ox 01/21/23 13:14 60 18 01/21/23 11:00 97.4 F L 61 16 128/71 98 01/21/23 09:32 62 18 01/21/23 09:20 61 18 100 01/21/23 07:46 97.3 F L 70 16 131/71 91 L 01/21/23 06:11 97.3 F L 01/21/23 04:00 94.7 F L 63 17 125/72 95 01/20/23 23:28 97.3 F L 60 17 144/66 94 L 01/20/23 21:49 97.6 F 60 18 146/66 94 L 01/20/23 20:40 97.2 F L 61 18 154/52 92 L 01/20/23 20:20 97.2 F L 60 18 148/53 92 L 01/20/23 19:15 97.0 F L 60 18 147/53 93 L 01/20/23 18:39 96.8 F L 01/20/23 18:30 96.9 F L 60 18 145/59 91 L 01/20/23 18:00 97.2 F L 60 18 118/64 93 L 01/20/23 17:00 95.7 F L 60 19 141/61 91 L 01/20/23 16:50 95 F L 60 136/57 92 L 01/20/23 16:40 60 134/51 92 L 01/20/23 16:30 60 142/51 92 L 01/20/23 16:20 60 18 112/90 92 L 01/20/23 16:10 60 120/39 96 01/20/23 16:00 60 123/41 94 L 01/20/23 15:57 94.6 F L 60 18 114/40 93 L 01/20/23 15:50 60 118/37 94 L 01/20/23 15:40 60 109/33 94 L 01/20/23 15:37 92.9 F L 60 20 109/33 01/20/23 15:30 60 113/31 95 01/20/23 15:20 92.9 F L 60 113/31 95 01/20/23 15:00 92.9 F L 66 20 139/39 94 L 01/20/23 14:37 93 F L 01/20/23 14:00 60 18 111/33 93 L 01/20/23 13:27 92.9 F L Intake and Output 01/20/23 01/21/23 01/21/23 22:59 06:59 14:59 Intake Total 1125 Output Total 200 Balance 1125 -200 Intake: Oral 540 Blood Product 585 Rc As-1 Unit 310 [id number] Rc Pheresis As-3 Unit 275 [id number] Output: Urine 200 Other: Voiding Method Indwelling Catheter Indwelling Catheter Indwelling Catheter Weight 77.111 kg - Constitutional General appearance: average body habitus, cooperative, no acute distress - EENT Eyes: anicteric sclerae, EOMI ENT: hearing grossly normal, normal oropharynx - Neck Neck: no lymphadenopathy - Respiratory Respiratory: bilateral: CTA - Cardiovascular Rhythm: regular Heart sounds: normal: S1, S2 Abnormal Heart Sounds: no systolic murmur, no diastolic murmur, no rub, no S3 Gallop, no S4 Gallop, no click, no other leg Peripheral Edema: bilateral: Trace - Gastrointestinal General gastrointestinal: no absent bowel sounds, no decreased bowel sounds, no distended, no hepatomegaly, no hyperactive bowel sounds, normal bowel sounds, no organomegaly, no rigid, no scaphoid, soft, no splenomegaly, no tenderness, no umbilical hernia, no ventral hernia - Integumentary Generalized, dry, flakey, silvery skin, worse on scalp - Neurologic Neurologic: CNII-XII intact (grossly) - Musculoskeletal Musculoskeletal: generalized weakness - Psychiatric Psychiatric: A&O x's 3, appropriate affect, intact judgment & insight Results CBC & Chem 7: 01/21/23 14:47 01/20/23 11:17 Labs: Abnormal Lab Results - Last 24 Hours (Table) 01/20/23 01/20/23 01/20/23 Range/Units 11:17 11:17 12:49 WBC 15.6 H 17.0 H (3.8-10.6) k/uL RBC 2.17 L (3.80-5.40) m/uL Hgb 4.6 L* (11.4-16.0) gm/dL Hct 15.8 L* (34.0-46.0) % MCV 73.0 L (80.0-100.0) fL MCH 21.3 L (25.0-35.0) pg MCHC 29.2 L (31.0-37.0) g/dL RDW 27.2 H (11.5-15.5) % Plt Count 127 L (150-450) k/uL Neutrophils # 14.5 H (1.3-7.7) k/uL Neutrophils # (Manual) 12.70 H (1.3-7.7) k/uL Monocytes # (Manual) (0-1.0) k/uL Metamyelocytes # (Man) 0.16 H (0) k/uL Myelocytes # (Manual) 0.47 H (0) k/uL Nucleated RBCs 1 H (0-0) /100 WBC POC Glucose (mg/dL) (70-110) mg/dL Hemoglobin A1c (<=6.0) % Plasma Lactic Acid Hema (0.7-2.0) mmol/L Iron 32 L (50-170) UG/DL TIBC 470 H (228-460) UG/DL % Saturation 6.81 L (12.00-45.00) Crossmatch 01/20/23 01/20/23 01/20/23 Range/Units 13:35 14:47 18:00 WBC 19.8 H (3.8-10.6) k/uL RBC 2.44 L (3.80-5.40) m/uL Hgb 5.8 L* (11.4-16.0) gm/dL Hct 19.0 L* (34.0-46.0) % MCV 77.7 L (80.0-100.0) fL MCH 23.8 L (25.0-35.0) pg MCHC 30.6 L (31.0-37.0) g/dL RDW 24.8 H (11.5-15.5) % Plt Count 142 L (150-450) k/uL Neutrophils # (1.3-7.7) k/uL Neutrophils # (Manual) (1.3-7.7) k/uL Monocytes # (Manual) (0-1.0) k/uL Metamyelocytes # (Man) (0) k/uL Myelocytes # (Manual) (0) k/uL Nucleated RBCs (0-0) /100 WBC POC Glucose (mg/dL) (70-110) mg/dL Hemoglobin A1c (<=6.0) % Plasma Lactic Acid Hema 2.6 H* (0.7-2.0) mmol/L Iron (50-170) UG/DL TIBC (228-460) UG/DL % Saturation (12.00-45.00) Crossmatch See Detail 01/20/23 01/21/23 01/21/23 Range/Units 22:36 02:18 02:18 WBC 18.7 H (3.8-10.6) k/uL RBC 3.00 L (3.80-5.40) m/uL Hgb 7.6 L D (11.4-16.0) gm/dL Hct 24.2 L (34.0-46.0) % MCV (80.0-100.0) fL MCH (25.0-35.0) pg MCHC (31.0-37.0) g/dL RDW 22.6 H (11.5-15.5) % Plt Count (150-450) k/uL Neutrophils # (1.3-7.7) k/uL Neutrophils # (Manual) 15.10 H (1.3-7.7) k/uL Monocytes # (Manual) 1.31 H (0-1.0) k/uL Metamyelocytes # (Man) 0.19 H (0) k/uL Myelocytes # (Manual) 0.19 H (0) k/uL Nucleated RBCs 2 H (0-0) /100 WBC POC Glucose (mg/dL) 175 H (70-110) mg/dL Hemoglobin A1c 6.3 H (<=6.0) % Plasma Lactic Acid Hema (0.7-2.0) mmol/L Iron (50-170) UG/DL TIBC (228-460) UG/DL % Saturation (12.00-45.00) Crossmatch 01/21/23 01/21/23 Range/Units 06:05 11:45 WBC (3.8-10.6) k/uL RBC (3.80-5.40) m/uL Hgb (11.4-16.0) gm/dL Hct (34.0-46.0) % MCV (80.0-100.0) fL MCH (25.0-35.0) pg MCHC (31.0-37.0) g/dL RDW (11.5-15.5) % Plt Count (150-450) k/uL Neutrophils # (1.3-7.7) k/uL Neutrophils # (Manual) (1.3-7.7) k/uL Monocytes # (Manual) (0-1.0) k/uL Metamyelocytes # (Man) (0) k/uL Myelocytes # (Manual) (0) k/uL Nucleated RBCs (0-0) /100 WBC POC Glucose (mg/dL) 159 H 157 H (70-110) mg/dL Hemoglobin A1c (<=6.0) % Plasma Lactic Acid Hema (0.7-2.0) mmol/L Iron (50-170) UG/DL TIBC (228-460) UG/DL % Saturation (12.00-45.00) Crossmatch Chest x-ray: report reviewed CT Scan - head: report reviewed Assessment and Plan (1) Anemia Current Visit: Yes Status: Acute Priority: High Code(s): D64.9 - ANEMIA, UNSPECIFIED SNOMED Code(s): 085562718 Plan: Acute anemia -anemia in the 7 range 1st noted in June this year. Prior to 06/24 Hgb was normal -CKD since 2016 -Hemolysis work up ordered -SPEP studies ordered -Inflammatory labs ordered -Agree with PRBC transfusions for Hgb < 7 or if symptomatic. Pt is s/p 2 units PRBCs with appropriate increase in Hgb. So far Hgb is stable -Agree with holding anticoagulation for now -Recommend GI assessment and possible work up
[2023-01-21 20:52] LABS: Glucose,Whole Blood 251 mg/dL (70-110)
[2023-01-21] MEDS: INSULIN DETEMIR (LEVEMIR) 100 UNIT/ML SYR SQ SCH (21:29)
--- NOTE | 2023-01-22 00:43 | HP ---
HISTORY AND PHYSICAL The patient came to the emergency room 7 in the ER at January 21, 2023. She came to the emergency room with a hemoglobin of 4.5, obtundation and contusion. She has not been walking for the last week. She has not been eating or drinking well, weakness, confusion. Hemoglobin is 4.5. She was given 2 units of blood, was reviewed. A 14- point review of system showed confusion, lightheaded, dizziness, weakness. SURGERIES: Heart catheterization, cholecystectomy, stent, hysterectomy, pacemaker, anxiety, depression, history of intracranial bleed, pacemaker, compression fractures, chronic kidney disease . PHYSICAL EXAM: VITAL SIGNS: Blood pressure 118 to 120s over 140s to 150s. CARDIOVASCULAR: S1, S2. LUNGS: Decreased breath sounds x4. PSYCH: She is alert and oriented x3, although she is confused at times. EKG ST-T changes, acute on chronic anemia, focal pneumonia, septic shock, weakness, dehydration. White count 17.0, hemoglobin is 4.6, platelets 127 kg. Oncology/Hematology consult. Pulmonary broad-spectrum antibiotics with blood. Prognosis guarded. MMODL / IJN: [id number] /
[2023-01-22 03:47] LABS: Albumin 3.6 g/dL (3.8-4.9); Protein, Total 5.5 g/dL (6.2-8.2)
[2023-01-22 03:56] LABS: Haptoglobin 87.7 mg/dL (31.2-198.0)
[2023-01-22 05:26] LABS: Glucose,Whole Blood 105 mg/dL (70-110)
[2023-01-22] MEDS: INSULIN ASPART (NovoLOG) 100 UNIT/ML VIAL SQ SCH ×4 (05:47→21:24)
[2023-01-22] MEDS: PANTOPRAZOLE 40 MG TABLET PO SCH (06:19)
[2023-01-22] MEDS: CHOLECALCIFEROL 125 MCG (5000 IU) TABLET PO SCH (08:47)
[2023-01-22] MEDS: amLODIPine 5 MG TAB PO SCH (08:47)
[2023-01-22] MEDS: AZITHROMYCIN 500 MG TAB PO SCH (08:47)
[2023-01-22] MEDS: QUEtiapine 100 MG TAB PO SCH (08:47)
[2023-01-22] MEDS: CALCIUM CARB-VIT D 500 MG-5 MCG TAB PO SCH (08:47)
[2023-01-22] MEDS: levETIRAcetam 500 MG TAB PO SCH ×3 (08:47→21:24)
[2023-01-22 09:16] LABS: Anisocytosis Marked; HCT 22.5 % (34.0-46.0); Hypochromasia Marked; MCH 25.9 pg (25.0-35.0); MCHC 31.1 g/dL (31.0-37.0); MCV 83.3 fL (80.0-100.0); Microcytosis Slight; Platelet Count 257 k/uL (150-450); Poikilocytosis Marked; RBC 2.71 m/uL (3.80-5.40); RDW 24.1 % (11.5-15.5); WBC 22.2 k/uL (3.8-10.6)
[2023-01-22] MEDS: IPRATROPIUM-ALBUTEROL 3 ML NEB INHALATION SCH ×3 (09:21→19:48)
[2023-01-22] MEDS: SYMBICORT 80-4.5 MCG INHALER INHALATION SCH ×2 (09:21→19:48)
[2023-01-22 09:22] LABS: African American GFR (CKD) 33 (>60 ml/min/1.73 sqM); Anion Gap 11 mmol/L; Blood Urea Nitrogen 62 mg/dL (7-17); Carbon Dioxide 22 mmol/L (22-30); Chloride 103 mmol/L (98-107); Glucose 108 mg/dL (74-99); Non-African American GFR(CKD) 29 (>60 ml/min/1.73 sqM); Sodium 136 mmol/L (137-145)
[2023-01-22 11:37] LABS: Glucose,Whole Blood 154 mg/dL (70-110)
[2023-01-22 13:07] LABS: Free Kappa Lt Chain Qnt, Serum 2.57 mg/dL (0.33-1.94)
--- NOTE | 2023-01-22 14:50 | P.PN ---
Subjective Progress Note Date: 01/22/23 Principal diagnosis: Iron def anemia In follow-up today patient is sitting in a chair, she has no acute complaints, she is tolerating oral intake, denies any bleeding, fevers, or pain. She is on antibiotics for a suspected pneumonia. Objective - Vital Signs Vital signs: Vital Signs Temp 97.3 F L 01/22/23 12:00 Pulse 68 01/22/23 12:37 Resp 17 01/22/23 12:00 BP 136/70 01/22/23 12:00 Pulse Ox 98 01/22/23 12:00 FiO2 Intake & Output 01/21/23 01/22/23 01/22/23 18:59 06:59 18:59 Intake Total 0 658 Output Total 400 450 Balance -400 -450 658 Intake: Oral 0 658 Output: Urine 400 450 Other: Voiding Method Indwelling Catheter Indwelling Catheter Indwelling Catheter - Constitutional General appearance: Present: average body habitus, cooperative, no acute distress - EENT Eyes: Present: anicteric sclerae, EOMI ENT: Present: hearing grossly normal, normal oropharynx - Respiratory Respiratory: bilateral: CTA - Cardiovascular Rhythm: regular Heart sounds: normal: S1, S2 Abnormal Heart Sounds: Absent: systolic murmur, diastolic murmur, rub, S3 Gallop, S4 Gallop, click, other - Peripheral edema leg Peripheral Edema: bilateral: Trace - Gastrointestinal General gastrointestinal: Present: normal bowel sounds, soft - Neurologic Neurologic: Present: CNII-XII intact - Musculoskeletal Musculoskeletal: Present: generalized weakness - Psychiatric Psychiatric: Present: A&O x's 3, appropriate affect, intact judgment & insight - Labs CBC & Chem 7: 01/22/23 08:54 01/22/23 08:54 Labs: Abnormal Lab Results - Last 24 Hours (Table) 01/21/23 01/21/23 01/21/23 Range/Units 02:18 14:47 14:47 WBC 21.6 H (3.8-10.6) k/uL RBC 2.83 L (3.80-5.40) m/uL Hgb 7.0 L (11.4-16.0) gm/dL Hct 22.7 L (34.0-46.0) % MCH 24.7 L (25.0-35.0) pg MCHC 30.8 L (31.0-37.0) g/dL RDW 23.7 H (11.5-15.5) % Retic Count 2.6 H (0.5-2.0) % Sodium (137-145) mmol/L BUN (7-17) mg/dL Creatinine (0.52-1.04) mg/dL Glucose (74-99) mg/dL POC Glucose (mg/dL) (70-110) mg/dL Lactate Dehydrogenase 434 H (120-246) U/L Total Protein (PEP) (6.2-8.2) g/dL Albumin (PEP) (3.8-4.9) g/dL Procalcitonin 0.53 H (0.02-0.09) ng/mL Free [place]ova LC, Quant (0.33-1.94) mg/dL 01/21/23 01/21/23 01/21/23 Range/Units 14:47 16:46 20:51 WBC (3.8-10.6) k/uL RBC (3.80-5.40) m/uL Hgb (11.4-16.0) gm/dL Hct (34.0-46.0) % MCH (25.0-35.0) pg MCHC (31.0-37.0) g/dL RDW (11.5-15.5) % Retic Count (0.5-2.0) % Sodium (137-145) mmol/L BUN (7-17) mg/dL Creatinine (0.52-1.04) mg/dL Glucose (74-99) mg/dL POC Glucose (mg/dL) 142 H 251 H (70-110) mg/dL Lactate Dehydrogenase (120-246) U/L Total Protein (PEP) 5.5 L (6.2-8.2) g/dL Albumin (PEP) 3.6 L (3.8-4.9) g/dL Procalcitonin (0.02-0.09) ng/mL Free [place] LC, Quant 2.57 H (0.33-1.94) mg/dL 01/22/23 01/22/23 01/22/23 Range/Units 08:54 08:54 11:36 WBC 22.2 H (3.8-10.6) k/uL RBC 2.71 L (3.80-5.40) m/uL Hgb 7.0 L (11.4-16.0) gm/dL Hct 22.5 L (34.0-46.0) % MCH (25.0-35.0) pg MCHC (31.0-37.0) g/dL RDW 24.1 H (11.5-15.5) % Retic Count (0.5-2.0) % Sodium 136 L (137-145) mmol/L BUN 62 H (7-17) mg/dL Creatinine 1.68 H (0.52-1.04) mg/dL Glucose 108 H (74-99) mg/dL POC Glucose (mg/dL) 154 H (70-110) mg/dL Lactate Dehydrogenase (120-246) U/L Total Protein (PEP) (6.2-8.2) g/dL Albumin (PEP) (3.8-4.9) g/dL Procalcitonin (0.02-0.09) ng/mL Free [place] LC, Quant (0.33-1.94) mg/dL Microbiology - Last 24 Hours (Table) 01/20/23 13:05 Blood Culture - Preliminary Blood 01/20/23 13:20 Blood Culture - Preliminary Blood Assessment and Plan (1) Anemia Current Visit: Yes Status: Acute Priority: High Code(s): D64.9 - ANEMIA, UNSPECIFIED SNOMED Code(s): 273622678 Plan: Acute anemia -anemia in the 7 range 1st noted in June this year. Prior to 06/24 Hgb was normal -CKD since 2017 -Iron deficiency with low saturation and ferritin around 100. Will start IV iron as pt has been on pneumonia protocol since admit, no further reported resp symptoms, exam is normal -No B12 or folate deficiency -Hemolysis work up is negative -SPEP studies ordered, Still pending -Inflammatory labs ordered-did not order yesterday, ordered today -Agree with PRBC transfusions for Hgb < 7 or if symptomatic. Pt is s/p 2 units PRBCs with appropriate increase in Hgb. Hgb is stable today -Agree with holding anticoagulation for now -Recommend GI assessment and possible work up
[2023-01-22] MEDS: IPRATROPIUM 0.5 MG/2.5 ML NEBU INHALATION SCH (15:42)
--- NOTE | 2023-01-22 16:07 | P.PN ---
Subjective Progress Note Date: 01/22/23 77-year-old female patient, multiple medical problems and comorbidities, comes from home with generalized weakness. Significant blood work abnormalities and the patient was found to have an initial hemoglobin of 4.2, hemoglobin was repeated at 4.6. The white cycles of 15.6. MCV level is at 72 consistent with iron deficiency anemia. Platelet counts are also low at 124. Also, the patient normal coagulation profile, sodium levels of 136 with a potassium level of 5.3, BUN is 65 and a creatinine of 2.01. Troponins are negative. LFTs are normal. Thyroid function tests are normal. Lactic acid level is at 5.2. Covid 19 testing was negative and the patient is currently on 2 L of oxygen by nasal c annula. Chest x-ray shows small bites pleural effusion along with increased interstitial markings bilaterally. The patient is hypothermic. The patient has been hospitalized on multiple occasions. She was in the hospital back in October 2022 feeling weak and at that time the patient was found to be anemic again. CAT scan of the abdomen was done that showed diverticulosis. Her previous EGD was done back in 2019. recent colonoscopies. Patient denies having any bright red blood per rectum. No melanotic stools. No hematemesis. Abdominal pain. No nausea and emesis. She has had previous blood work that showed iron deficiency. She is on anticoagulation with Eliquis. The patient is known to have multiple medical problems and comorbidities. The patient has CAD with previous stent, history of A. fib, hypertension, history of benign brain mass, peripheral neuropathy, sick sinus syndrome and the patient is a pacemaker in place and the with that the patient has chronic stage III kidney disease. The patient is blind in her left eye. The computed tomography scan of the brain was repeated during this current admission showed no acute abnormalities. There is stable postsurgical changes along with encephalomalacia involving the right parietal lobe. Her previous echo cardiac exam showed a preserved LV function. Previous CAT scan of the chest showed bilateral pleural effusion and interstitial edema along with extensive atherosclerosis. Patient was reevaluated today 01/21/2023, patient is on room air, O2 sats is 98%, feeling better today compared to yesterday, breathing easier, nonetheless she feels generally weak. Continues to have leukocytosis with WBC count of 18.7 hemoglobin is 7.6, patient did receive 2 units of packed RBCs since admission, patient presented with a hemoglobin of 4.2 initially on admission yesterday. BNP level on admission was over 15 800 , patient is not receiving any diuretics at present. He is receiving bronchodilators and antibiotics. On admission the patient had a BUN of 65 and creatinine of 2.01 her baseline creatinine is in the range of 1.29. Chest x-ray this morning is showing significant improvement compared to the chest x-ray on admission. The patient is seen today 01/22/2023 in follow-up on the selective care unit. She is currently sitting up in a chair. Awake and alert in no acute distress. Maintaining O2 saturation in the 90s on room air. She is status post 2 units of packed red blood this admission. Current hemoglobin 7.0. Platelets 257. White count 22.2. Sodium 136. Potassium 5.0. Bicarb 22. BUN 62. Creatinine 1.68. Glucose 108. Blood cultures reveal no growth. She is continued on DuoNeb inhalations, Symbicort. Antibiotics in the form of ceftriaxone. Iron replacement therapy. Objective - Vital Signs Vital signs: Vital Signs Temp 97.3 F L 01/22/23 12:00 Pulse 68 01/22/23 12:37 Resp 17 01/22/23 12:00 BP 136/70 01/22/23 12:00 Pulse Ox 98 01/22/23 12:00 FiO2 Intake & Output 01/21/23 01/22/23 01/22/23 18:59 06:59 18:59 Intake Total 0 658 Output Total 400 450 Balance -400 -450 658 Intake: Oral 0 658 Output: Urine 400 450 Other: Voiding Method Indwelling Catheter Indwelling Catheter Indwelling Catheter - Exam GENERAL EXAM: Alert, 77-year-old female, up in a chair, on room air, comfortable in no apparent distress. HEAD: Normocephalic. EYES: Normal reaction of pupils, equal size. NOSE: Clear with pink turbinates. THROAT: No erythema or exudates. NECK: No masses, no JVD. CHEST: No chest wall deformity. LUNGS: Equal air entry with no crackles, wheeze, rhonchi or dullness. CVS: S1 and S2 normal with no audible murmur, regular rhythm. ABDOMEN: No hepatosplenomegaly, normal bowel sounds, no guarding or rigidity. SPINE: No scoliosis or deformity SKIN: No rashes CENTRAL NERVOUS SYSTEM: No focal deficits, tone is normal in all 4 extremities. EXTREMITIES: There is 1+ peripheral edema. No clubbing, no cyanosis. Peripheral pulses are intact. - Labs CBC & Chem 7: 01/22/23 08:54 01/22/23 08:54 Labs: Abnormal Lab Results - Last 24 Hours (Table) 01/21/23 01/21/23 01/21/23 Range/Units 14:47 16:46 20:51 WBC (3.8-10.6) k/uL RBC (3.80-5.40) m/uL Hgb (11.4-16.0) gm/dL Hct (34.0-46.0) % RDW (11.5-15.5) % Sodium (137-145) mmol/L BUN (7-17) mg/dL Creatinine (0.52-1.04) mg/dL Glucose (74-99) mg/dL POC Glucose (mg/dL) 142 H 251 H (70-110) mg/dL Total Protein (PEP) 5.5 L (6.2-8.2) g/dL Albumin (PEP) 3.6 L (3.8-4.9) g/dL Free [place]es LC, Quant 2.57 H (0.33-1.94) mg/dL 01/22/23 01/22/23 01/22/23 Range/Units 08:54 08:54 11:36 WBC 22.2 H (3.8-10.6) k/uL RBC 2.71 L (3.80-5.40) m/uL Hgb 7.0 L (11.4-16.0) gm/dL Hct 22.5 L (34.0-46.0) % RDW 24.1 H (11.5-15.5) % Sodium 136 L (137-145) mmol/L BUN 62 H (7-17) mg/dL Creatinine 1.68 H (0.52-1.04) mg/dL Glucose 108 H (74-99) mg/dL POC Glucose (mg/dL) 154 H (70-110) mg/dL Total Protein (PEP) (6.2-8.2) g/dL Albumin (PEP) (3.8-4.9) g/dL Free [place] LC, Quant (0.33-1.94) mg/dL Microbiology - Last 24 Hours (Table) 01/20/23 13:05 Blood Culture - Preliminary Blood 01/20/23 13:20 Blood Culture - Preliminary Blood Assessment and Plan Assessment: Acute on chronic anemia most likely this is a blood loss anemia, will need f urther GI evaluation to figure out the exact source of her blood losses. Acute hypoxic respiratory failure, with bilateral pleural effusions I still suspect that we are dealing with acute diastolic congestive heart failure, underlying pneumonia is felt to be less likely but not entirely ruled out. Generalized weakness, multifactorial Chronic kidney disease stage IIIB Chronic atrial fibrillation, maintained on eliquis Type 2 diabetes with diabetic nephropathy Underlying coronary artery disease Underlying COPD/asthma Peripheral neuropathy/diabetic neuropathy Sick sinus syndrome and previous pacemaker implantation History of L1 compression fracture Profound hypothermia on present with profound anemia, resolved Plan: The patient was seen and evaluated Medications and labs reviewed Stable and on room air Initiated on iron replacement therapy Will need GI workup Hematology following We'll continue to follow I have personally seen and examined the patient, performed the documentation and the assessment and plan as written. Number of minutes spent on the visit: 10.
[2023-01-22 16:17] LABS: Glucose,Whole Blood 157 mg/dL (70-110)
[2023-01-22 19:56] LABS: Gamma Globulin 0.47 g/dL (0.70-1.50)
[2023-01-22 20:04] LABS: Glucose,Whole Blood 205 mg/dL (70-110)
[2023-01-22] MEDS: INSULIN DETEMIR (LEVEMIR) 100 UNIT/ML SYR SQ SCH (21:23)
[2023-01-22] MEDS: TAMSULOSIN 0.4 MG CAP.ER.24H PO SCH (21:24)
[2023-01-23 06:06] LABS: Glucose,Whole Blood 205 mg/dL (70-110)
[2023-01-23] MEDS: PANTOPRAZOLE 40 MG TABLET PO SCH (06:38)
[2023-01-23] MEDS: INSULIN ASPART (NovoLOG) 100 UNIT/ML VIAL SQ SCH ×4 (06:38→21:17)
[2023-01-23] MEDS: IPRATROPIUM-ALBUTEROL 3 ML NEB INHALATION SCH ×2 (08:01→20:35)
[2023-01-23] MEDS: SYMBICORT 80-4.5 MCG INHALER INHALATION SCH ×2 (08:01→20:35)
[2023-01-23 08:28] LABS: Anisocytosis Marked; HCT 21.8 % (34.0-46.0); Hypochromasia Marked; MCH 25.9 pg (25.0-35.0); MCHC 30.7 g/dL (31.0-37.0); MCV 84.5 fL (80.0-100.0); Mean Platelet Volume 8.3; Microcytosis Slight; Platelet Count 267 k/uL (150-450); Poikilocytosis Marked; RBC 2.58 m/uL (3.80-5.40); RDW 24.7 % (11.5-15.5)
[2023-01-23 08:29] LABS: ALT 55 U/L (4-34); AST 42 U/L (14-36); African American GFR (CKD) 41 (>60 ml/min/1.73 sqM); Albumin 3.1 g/dL (3.5-5.0); Alkaline Phosphatase 104 U/L (38-126); Anion Gap 11 mmol/L; Blood Urea Nitrogen 47 mg/dL (7-17); Carbon Dioxide 23 mmol/L (22-30); Chloride 104 mmol/L (98-107); Glucose 148 mg/dL (74-99); Non-African American GFR(CKD) 36 (>60 ml/min/1.73 sqM); Potassium 4.5 mmol/L (3.5-5.1); Sodium 138 mmol/L (137-145); Total Bilirubin 0.3 mg/dL (0.2-1.3); Total Protein 5.5 g/dL (6.3-8.2)
[2023-01-23 08:32] LABS: HGB 6.7 gm/dL (11.4-16.0)
[2023-01-23] MEDS: amLODIPine 5 MG TAB PO SCH (08:51)
[2023-01-23] MEDS: CALCIUM CARB-VIT D 500 MG-5 MCG TAB PO SCH (08:51)
[2023-01-23] MEDS: levETIRAcetam 500 MG TAB PO SCH ×3 (08:51→21:17)
[2023-01-23] MEDS: CHOLECALCIFEROL 125 MCG (5000 IU) TABLET PO SCH (08:51)
[2023-01-23] MEDS: QUEtiapine 100 MG TAB PO SCH (08:51)
[2023-01-23 11:18] LABS: Glucose,Whole Blood 132 mg/dL (70-110)
[2023-01-23] MEDS: SODIUM FERRIC GLUCONAT-SUCROSE 125 MG in SODIUM CHLORIDE 0.9% 100 ML IVPB SCH (11:31)
--- NOTE | 2023-01-23 14:16 | P.PN ---
Subjective Progress Note Date: 01/23/23 Principal diagnosis: Acute hypoxic respiratory failure secondary to acute diastolic congestive heart failure, doubt pneumonia 77-year-old female patient, multiple medical problems and comorbidities, comes from home with generalized weakness. Significant blood work abnormalities and the patient was found to have an initial hemoglobin of 4.2, hemoglobin was repeated at 4.6. The white cycles of 15.6. MCV level is at 72 consistent with iron deficiency anemia. Platelet counts are also low at 124. Also, the patient normal coagulation profile, sodium levels of 136 with a potassium level of 5.3, BUN is 65 and a creatinine of 2.01. Troponins are negative. LFTs are normal. Thyroid function tests are normal. Lactic acid level is at 5.2. Covid 19 testing was negative and the patient is currently on 2 L of oxygen by nasal cannula. Chest x-ray shows small bites pleural effusion along with increased interstitial markings bilaterally. The patient is hypothermic. The patient has been hospitalized on multiple occasions. She was in the hospital back in October 2022 feeling weak and at that time the patient was found to be anemic again. CAT scan of the abdomen was done that showed diverticulosis. Her previous EGD was done back in 2019. recent colonoscopies. Patient denies having any bright red blood per rectum. No melanotic stools. No hematemesis. Abdominal pain. No nausea and emesis. She has had previous blood work that showed iron deficiency. She is on anticoagulation with Eliquis. The patient is known to have multiple medical problems and comorbidities. The patient has CAD with previous stent, history of A. fib, hypertension, history of benign brain mass, peripheral neuropathy, sick sinus syndrome and the patient is a pacemaker in place and the with that the patient has chronic stage III kidney disease. The patient is blind in her left eye. The computed tomography scan of the brain was repeated during this current admission showed no acute abnormalities. There is stable postsurgical changes along with encephalomalacia involving the right parietal lobe. Her previous echo cardiac exam showed a preserved LV function. Previous CAT scan of the chest showed bilateral pleural effusion and interstitial edema along with extensive atherosclerosis. Patient was reevaluated today 01/21/2023, patient is on room air, O2 sats is 98%, feeling better today compared to yesterday, breathing easier, nonetheless she feels generally weak. Continues to have leukocytosis with WBC count of 18.7 hemoglobin is 7.6, patient did receive 2 units of packed RBCs since admission, patient presented with a hemoglobin of 4.2 initially on admission yesterday. BNP level on admission was over 15 800 , patient is not receiving any diuretics at present. He is receiving bronchodilators and antibiotics. On admission the patient had a BUN of 65 and creatinine of 2.01 her baseline creatinine is in the range of 1.29. Chest x-ray this morning is showing significant improvement compared to the chest x-ray on admission. Reevaluated today on 01/23/23, patient remains on 2 L nasal cannula, O2 sats is 99%, feeling better, however there is evidence of further drop in hemoglobin, patient received another unit of packed RBCs today. Clinically the patient is doing well, she seems to be relatively asymptomatic, her WBC count of 13.7 basic metabolic profile is normal BUN is 47 creatinine 1.4, remains empirically on antibiotics, remains on bronchodilators, pro-calcitonin level was slightly elevated at 0.53, but she clearly had significantly elevated BNP level. Objective - Vital Signs Vital signs: Vital Signs Temp 97.9 F 01/23/23 13:54 Pulse 71 01/23/23 13:54 Resp 16 01/23/23 13:54 BP 145/67 01/23/23 13:54 Pulse Ox 99 01/23/23 13:54 FiO2 Intake & Output 01/22/23 01/23/23 01/23/23 18:59 06:59 18:59 Intake Total 1198 790 Output Total 725 420 Balance 473 -420 790 Intake: Oral 1198 480 Blood Product 310 Rc As-1 Unit 310 [id number] Output: Urine 725 420 Other: Voiding Method Indwelling Catheter External Catheter External Catheter - Exam Physical Exam: Revealed 77-year-old female in no distress Head: Atraumatic, normocephalic HEENT:[Neck is supple.] [No neck masses.] [No thyromegaly.] [No JVD.] Chest: [Crackles at the bases and diminished breath sound bilaterally Cardiac Exam: [Normal S1 and S2, no S3 gallop, no murmur.] Abdomen: [Soft, nontender, no megaly, no rebound, no guarding, normal bowel sounds.] Extremities: [No clubbing, 1+ bipedal edema, no cyanosis.] Neurological Exam: [No focal neurologic deficit.] Patient is generally weak. Psychiatric: Normal mood, flat affect, normal mental status examination. Skin: No rashes - Labs CBC & Chem 7: 01/23/23 07:06 01/23/23 07:06 Labs: Abnormal Lab Results - Last 24 Hours (Table) 01/20/23 01/21/23 01/22/23 Range/Units 13:35 14:47 16:16 WBC (3.8-10.6) k/uL RBC (3.80-5.40) m/uL Hgb (11.4-16.0) gm/dL Hct (34.0-46.0) % MCHC (31.0-37.0) g/dL RDW (11.5-15.5) % BUN (7-17) mg/dL Creatinine (0.52-1.04) mg/dL Glucose (74-99) mg/dL POC Glucose (mg/dL) 157 H (70-110) mg/dL AST (14-36) U/L ALT (4-34) U/L Total Protein (6.3-8.2) g/dL Albumin (3.5-5.0) g/dL Mxamh-6-Nqmemdwdc 0.51 H (0.10-0.40) g/dL Mpiit-2-Dlosotpdh 0.57 L (0.60-1.00) g/dL Gamma Globulins 0.47 L (0.70-1.50) g/dL Crossmatch See Detail 01/22/23 01/23/23 01/23/23 Range/Units 20:01 06:04 07:06 WBC 13.7 H (3.8-10.6) k/uL RBC 2.58 L (3.80-5.40) m/uL Hgb 6.7 L* (11.4-16.0) gm/dL Hct 21.8 L (34.0-46.0) % MCHC 30.7 L (31.0-37.0) g/dL RDW 24.7 H (11.5-15.5) % BUN (7-17) mg/dL Creatinine (0.52-1.04) mg/dL Glucose (74-99) mg/dL POC Glucose (mg/dL) 205 H 205 H (70-110) mg/dL AST (14-36) U/L ALT (4-34) U/L Total Protein (6.3-8.2) g/dL Albumin (3.5-5.0) g/dL Fbyct-2-Jashvseay (0.10-0.40) g/dL Gsfwz-9-Nnslhwber (0.60-1.00) g/dL Gamma Globulins (0.70-1.50) g/dL Crossmatch 01/23/23 01/23/23 Range/Units 07:06 11:16 WBC (3.8-10.6) k/uL RBC (3.80-5.40) m/uL Hgb (11.4-16.0) gm/dL Hct (34.0-46.0) % MCHC (31.0-37.0) g/dL RDW (11.5-15.5) % BUN 47 H (7-17) mg/dL Creatinine 1.42 H (0.52-1.04) mg/dL Glucose 148 H (74-99) mg/dL POC Glucose (mg/dL) 132 H (70-110) mg/dL AST 42 H (14-36) U/L ALT 55 H (4-34) U/L Total Protein 5.5 L (6.3-8.2) g/dL Albumin 3.1 L (3.5-5.0) g/dL Bvqld-2-Wfezatnxp (0.10-0.40) g/dL Qblyn-8-Qukoelafe (0.60-1.00) g/dL Gamma Globulins (0.70-1.50) g/dL Crossmatch Microbiology - Last 24 Hours (Table) 01/20/23 13:05 Blood Culture - Preliminary Blood 01/20/23 13:20 Blood Culture - Preliminary Blood Assessment and Plan Assessment: Impression: Acute on chronic anemia most likely this is a blood loss anemia, will need further GI evaluation to figure out the exact source of her blood losses. Acute hypoxic respiratory failure, with bilateral pleural effusions I still suspect that we are dealing with acute diastolic congestive heart failure, underlying pneumonia is felt to be less likely but not entirely ruled out. Generalized weakness, multifactorial Chronic kidney disease stage IIIB Chronic atrial fibrillation, maintained on eliquis Type 2 diabetes with diabetic nephropathy Underlying coronary artery disease Underlying COPD/asthma Peripheral neuropathy/diabetic neuropathy 6 sinus syndrome and previous pacemaker implantation History of L1 compression fracture Profound hypothermia on present with profound anemia, resolved Recommendation: Agree with transfusing the patient for hemoglobin of 6.7 Continue present supportive care measures and present treatment plan Continue iron supplement and consult gastroenterology for EGD and colonoscopy Continue to hold anticoagulation therapy Diurese if necessary. At this point the patient is clinically stable We will continue to follow Time with Patient: Less than 30
[2023-01-23] MEDS ORDERED: FUROSEMIDE 10 MG/ML 2 ML VIAL IV PRN (16:07)
[2023-01-23 16:22] LABS: Glucose,Whole Blood 187 mg/dL (70-110)
[2023-01-23 16:55] LABS: Band Neutrophils % 2 %; Basophils # (M) 0.13 k/uL (0-0.2); Lymphocytes # (M) 1.46 k/uL (1.0-4.8); Metamyelocytes # (M) 0.27 k/uL (0); Metamyelocytes % 2 %; Monocytes # (M) 0.93 k/uL (0-1.0); Myelocytes % 6 %; Neutrophils % (M) 71 %; Nucleated Red Blood Cells 3 /100 WBC (0-0); Total Cells Counted 200; WBC 13.3 k/uL (3.8-10.6)
[2023-01-23 16:56] LABS: Mixed Population RBC Present; Polychromasia Present
--- NOTE | 2023-01-23 18:35 | P.PN ---
Subjective Progress Note Date: 01/23/23 Principal diagnosis: Iron def anemia In follow-up today patient denies any bleeding, hematomas, fevers, or pain. She is on antibiotics for a suspected pneumonia. Objective - Vital Signs Vital signs: Vital Signs Temp 97.8 F 01/23/23 15:34 Pulse 75 01/23/23 15:34 Resp 16 01/23/23 15:34 BP 161/69 01/23/23 15:34 Pulse Ox 99 01/23/23 15:34 FiO2 Intake & Output 01/22/23 01/23/23 01/23/23 18:59 06:59 18:59 Intake Total 1198 1030 Output Total 725 420 Balance 473 -420 1030 Intake: Oral 1198 720 Blood Product 310 Rc As-1 Unit 310 [id number] Output: Urine 725 420 Other: Voiding Method Indwelling Catheter External Catheter External Catheter - Constitutional General appearance: Present: average body habitus, cooperative, no acute distress - EENT Eyes: Present: anicteric sclerae, EOMI ENT: Present: hearing grossly normal - Respiratory Respiratory: bilateral: CTA - Cardiovascular Heart sounds: normal: S1, S2 - Peripheral edema leg Peripheral Edema: bilateral: Trace - Gastrointestinal General gastrointestinal: Present: normal bowel sounds, soft - Integumentary Integumentary: Present: pale - Neurologic Neurologic: Present: CNII-XII intact - Musculoskeletal Musculoskeletal: Present: generalized weakness, strength equal bilaterally - Psychiatric Psychiatric: Present: A&O x's 3, appropriate affect, intact judgment & insight - Labs CBC & Chem 7: 01/23/23 07:06 01/23/23 07:06 Labs: Abnormal Lab Results - Last 24 Hours (Table) 01/20/23 01/21/23 01/22/23 Range/Units 13:35 14:47 20:01 WBC (3.8-10.6) k/uL RBC (3.80-5.40) m/uL Hgb (11.4-16.0) gm/dL Hct (34.0-46.0) % MCHC (31.0-37.0) g/dL RDW (11.5-15.5) % Neutrophils # (Manual) (1.3-7.7) k/uL Metamyelocytes # (Man) (0) k/uL Myelocytes # (Manual) (0) k/uL Nucleated RBCs (0-0) /100 WBC BUN (7-17) mg/dL Creatinine (0.52-1.04) mg/dL Glucose (74-99) mg/dL POC Glucose (mg/dL) 205 H (70-110) mg/dL AST (14-36) U/L ALT (4-34) U/L Total Protein (6.3-8.2) g/dL Albumin (3.5-5.0) g/dL Qklog-9-Wxxequjpx 0.51 H (0.10-0.40) g/dL Sfjly-0-Qffvmttpd 0.57 L (0.60-1.00) g/dL Gamma Globulins 0.47 L (0.70-1.50) g/dL Crossmatch See Detail 01/23/23 01/23/23 01/23/23 Range/Units 06:04 07:06 07:06 WBC 13.3 H (3.8-10.6) k/uL RBC 2.58 L (3.80-5.40) m/uL Hgb 6.7 L* (11.4-16.0) gm/dL Hct 21.8 L (34.0-46.0) % MCHC 30.7 L (31.0-37.0) g/dL RDW 24.7 H (11.5-15.5) % Neutrophils # (Manual) 9.70 H (1.3-7.7) k/uL Metamyelocytes # (Man) 0.27 H (0) k/uL Myelocytes # (Manual) 0.80 H (0) k/uL Nucleated RBCs 3 H (0-0) /100 WBC BUN 47 H (7-17) mg/dL Creatinine 1.42 H (0.52-1.04) mg/dL Glucose 148 H (74-99) mg/dL POC Glucose (mg/dL) 205 H (70-110) mg/dL AST 42 H (14-36) U/L ALT 55 H (4-34) U/L Total Protein 5.5 L (6.3-8.2) g/dL Albumin 3.1 L (3.5-5.0) g/dL Huimo-4-Mwmemexjp (0.10-0.40) g/dL Ffpmt-3-Ajfphdiht (0.60-1.00) g/dL Gamma Globulins (0.70-1.50) g/dL Crossmatch 01/23/23 01/23/23 Range/Units 11:16 16:19 WBC (3.8-10.6) k/uL RBC (3.80-5.40) m/uL Hgb (11.4-16.0) gm/dL Hct (34.0-46.0) % MCHC (31.0-37.0) g/dL RDW (11.5-15.5) % Neutrophils # (Manual) (1.3-7.7) k/uL Metamyelocytes # (Man) (0) k/uL Myelocytes # (Manual) (0) k/uL Nucleated RBCs (0-0) /100 WBC BUN (7-17) mg/dL Creatinine (0.52-1.04) mg/dL Glucose (74-99) mg/dL POC Glucose (mg/dL) 132 H 187 H (70-110) mg/dL AST (14-36) U/L ALT (4-34) U/L Total Protein (6.3-8.2) g/dL Albumin (3.5-5.0) g/dL Jlpju-9-Jejykcxbu (0.10-0.40) g/dL Lmvrz-4-Shuotumtq (0.60-1.00) g/dL Gamma Globulins (0.70-1.50) g/dL Crossmatch Microbiology - Last 24 Hours (Table) 01/20/23 13:05 Blood Culture - Preliminary Blood 01/20/23 13:20 Blood Culture - Preliminary Blood Assessment and Plan (1) Anemia Current Visit: Yes Status: Acute Priority: High Code(s): D64.9 - ANEMIA, UNSPECIFIED SNOMED Code(s): 851786639 Plan: Acute anemia -anemia in the 7 range 1st noted in June this year. Prior to 06/24 Hgb was normal -CKD since 2017 -Iron deficiency with low saturation and ferritin around 100. 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 This may be reevaluated once pt is recovered from her current illness and her iron stores have been replaced. Will reevaluate her anemia, see that her cr is at baseline. Calcium levels are normal. Will consider skeletal assessment. She may not need active treatment, just monitoring but that will be decided after ongoing evaluation. -Inflammatory labs ordered, negative -Agree with PRBC transfusions for Hgb < 7 or if symptomatic. Pt required another unit of PRBCs today for a Hgb of 6.8 -Agree with holding anticoagulation for now -Recommended GI assessment. Attending has consulted Surgery for endoscopic evaluation Attests: I have seen and examined pt, performed H&P, developed impression and plan of care. Discussed with dictator. Agree with documentation, dictated as a scribe
--- NOTE | 2023-01-23 19:22 | PN ---
PROGRESS NOTE This white female remains on IV Rocephin for UTI. Hemoglobin is down to 6.7, , BUN is 47, creatinine 1.42. Liver enzymes are high , albumin is 3.1. Possibly give another unit of blood. Hemoglobin is below 7. Wait for Hematology, Oncology recommendation. Unclear etiology of bleeding at this point. Pulmonary consult has been appreciated. replacement therapy. White counts are improved down from 22,000 to 14,000. She is sleepy, lethargic. 2 to 3+ edema. She has 2-person assist. Cardiovascular, S1, S2. Lungs scattered rhonchi and wheeze. Hematology negative Homans. Possibly a GI workup for GI bleeding will be done. The patient will possibly need another blood transfusion today. Prognosis guarded. Please see further orders. MMODL / IJN: [id number] /
[2023-01-23 19:38] LABS: Glucose,Whole Blood 164 mg/dL (70-110)
[2023-01-23] MEDS: INSULIN DETEMIR (LEVEMIR) 100 UNIT/ML SYR SQ SCH (21:17)
[2023-01-23] MEDS: TAMSULOSIN 0.4 MG CAP.ER.24H PO SCH (21:17)
[2023-01-24 05:46] LABS: Glucose,Whole Blood 140 mg/dL (70-110)
[2023-01-24] MEDS: INSULIN ASPART (NovoLOG) 100 UNIT/ML VIAL SQ SCH ×4 (05:51→20:27)
[2023-01-24] MEDS: PANTOPRAZOLE 40 MG TABLET PO SCH (06:47)
[2023-01-24] MEDS: IPRATROPIUM-ALBUTEROL 3 ML NEB INHALATION SCH ×2 (09:31→20:59)
[2023-01-24] MEDS: SYMBICORT 80-4.5 MCG INHALER INHALATION SCH ×2 (09:31→20:59)
[2023-01-24] MEDS: CALCIUM CARB-VIT D 500 MG-5 MCG TAB PO SCH (09:34)
[2023-01-24] MEDS: CHOLECALCIFEROL 125 MCG (5000 IU) TABLET PO SCH (09:34)
[2023-01-24] MEDS: SODIUM FERRIC GLUCONAT-SUCROSE 125 MG in SODIUM CHLORIDE 0.9% 100 ML IVPB SCH (09:34)
[2023-01-24] MEDS: amLODIPine 5 MG TAB PO SCH (09:34)
[2023-01-24] MEDS: levETIRAcetam 500 MG TAB PO SCH ×3 (09:34→21:29)
[2023-01-24] MEDS: QUEtiapine 100 MG TAB PO SCH (09:36)
[2023-01-24 09:40] LABS: Anisocytosis Marked; HCT 27.2 % (34.0-46.0); Hypochromasia Marked; MCHC 31.9 g/dL (31.0-37.0); MCV 84.5 fL (80.0-100.0); Mean Platelet Volume 8.7; Microcytosis Slight; Platelet Count 320 k/uL (150-450); Poikilocytosis Marked; RBC 3.22 m/uL (3.80-5.40); RDW 24.2 % (11.5-15.5)
--- NOTE | 2023-01-24 09:50 | P.GSCN ---
History of Present Illness Consult date: 01/24/23 Reason for Consult: Anemia History of present illness: This a 69-year-old female who's [facility] with severe anemia. Patient denies any evidence of GI bleed. She appears to have a chronic anemia for several months. Past Medical History Past Medical History: Atrial Fibrillation, Asthma, Coronary Artery Disease (CAD), Cancer, Heart Failure, CVA/TIA, Diabetes Mellitus, Eye Disorder, Hypertension, Osteoarthritis (OA), Renal Disease, Seizure Disorder Additional Past Medical History / Comment(s): Brain mass/fall with intracranial bleed/hematome-surgery at [facility], seizure after brain surgery, paroxysmal Afib, DM type II, neuropathy bilateral feet, orthostatic hypotension, SSS with pacemaker, L1 compression fx, CKD stage III, blind in L eye, UTIs, low er GI bleed, gastritis, gastric erosion, CDiff colitis, skin cancer with removals, past L arm fracture, past R arm fracture x2. History of Any Multi-Drug Resistant Organisms: MRSA Year Discovered:: 01/26/19 MDRO Source:: URINE Past Surgical History: Cholecystectomy, Heart Catheterization, Heart Cath eterization With Stent, Hysterectomy, Pacemaker Additional Past Surgical History / Comment(s): Evacuation of intracranial hematoma and ressection of hemorrhagic mass, pacemaker 2016, PCI with stent 06/06/18, EGD/colonoscopy, R eye corneal implant/cataract removal, EGD 06/2018, colonoscopy, skin cancer removal. Past Anesthesia/Blood Transfusion Reactions: No Reported Reaction Additional Past Anesthesia/Blood Transfusion Reaction / Comm: . Date of Last Stent Placement:: 06/06/18 Type of Cardiac Device: Permanent Pacemaker Device Placement Date:: 04/2016 Past Psychological History: Anxiety, Depression Additional Psychological History / Comment(s): She uses a walker and has a wheelchair for longer distaces. She no longer drives, [facility] Her son manages her medications. Smoking Status: Never smoker Past Alcohol Use History: None Reported Past Drug Use History: None Reported - Past Family History Mother Family Medical History: Cancer, COPD, Hypertension Additional Family Medical History / Comment(s): Mother had bone cancer. Father Family Medical History: Cancer, Hypertension Additional Family Medical History / Comment(s): Father had skin cancer. Medications and Allergies Home Medications Medication Instructions Recorded Confirmed Type Pantoprazole [Protonix] 40 mg PO DAILY 12/19/19 01/20/23 History Insulin Glargine/Lixisenatide 15 units SQ HS 10/12/21 01/20/23 History [Soliqua 100 Unit-33 Mcg/ml Pen] Albuterol Sulfate [Ventolin HFA] 2 puff INHALATION RT-Q6H PRN 05/29/22 01/20/23 History Aspirin EC [Ecotrin Low Dose] 81 mg PO DAILY 05/29/22 01/20/23 History Fluticasone/Umeclidin/Vilanter 1 puff INHALATION RT-DAILY 05/29/22 01/20/23 History [Trelegy Ellipta 200-62.5-25] Apixaban [Eliquis] 5 mg PO BID 06/25/22 01/20/23 History amLODIPine [Norvasc] 5 mg PO DAILY tab 06/29/22 01/20/23 Rx Acetaminophen Tab [Tylenol] 500 - 1,000 mg PO Q6H PRN 10/11/22 01/20/23 History Calcium Carbonate/Vitamin D3 1 tab PO DAILY 10/11/22 01/20/23 History [Calcium 500 mg-Vit D3 5 mcg (200 Unit)] Cholecalciferol [Vitamin D3 (125 250 mcg PO DAILY 10/11/22 01/20/23 History Mcg = 5000 Iu)] QUEtiapine [SEROquel] 100 mg PO DAILY 10/11/22 01/20/23 History levETIRAcetam [Keppra] 500 mg PO TID 10/11/22 01/20/23 History Ipratropium-Albuterol Nebulize 3 ml INHALATION RT-BID 01/20/23 01/20/23 History [Duoneb 0.5 mg-3 mg/3 ml Soln] Allergies Allergy/AdvReac Type Severity Reaction Status Date / Time Latex, Natural Rubber Allergy Itching Verified 01/20/23 13:38 sulfamethoxazole Allergy Rash/Hives Verified 01/20/23 13:38 [From Bactrim] trimethoprim [From Bactrim] Allergy Rash/Hives Verified 01/20/23 13:38 Surgical - Exam Vital Signs BP Pulse Ox 122/43 96 01/20/23 11:00 01/20/23 11:00 - General well developed, well nourished, no distress - Eyes PERRL - ENT normal pinna - Neck no masses - Respiratory normal expansion - Cardiovascular Rhythm: regular - Abdomen Abdomen: soft, non tender Results - Labs 01/23/23 07:06 01/23/23 07:06 Abnormal Lab Results - Last 24 Hours (Table) 01/20/23 01/23/23 01/23/23 Range/Units 13:35 07:06 11:16 WBC 13.3 H (3.8-10.6) k/uL Neutrophils # (Manual) 9.70 H (1.3-7.7) k/uL Metamyelocytes # (Man) 0.27 H (0) k/uL Myelocytes # (Manual) 0.80 H (0) k/uL Nucleated RBCs 3 H (0-0) /100 WBC POC Glucose (mg/dL) 132 H (70-110) mg/dL Crossmatch See Detail 01/23/23 01/23/23 01/24/23 Range/Units 16:19 19:36 05:44 WBC (3.8-10.6) k/uL Neutrophils # (Manual) (1.3-7.7) k/uL Metamyelocytes # (Man) (0) k/uL Myelocytes # (Manual) (0) k/uL Nucleated RBCs (0-0) /100 WBC POC Glucose (mg/dL) 187 H 164 H 140 H (70-110) mg/dL Crossmatch Microbiology - Last 24 Hours (Table) 01/20/23 13:20 Blood Culture - Preliminary Blood 01/20/23 13:05 Blood Culture Gram Stain - Preliminary Blood Blood Culture - Preliminary Assessment and Plan Assessment: Severe anemia. Patient will undergo endoscopy when stable.
[2023-01-24 09:58] LABS: ALT 41 U/L (4-34); AST 33 U/L (14-36); African American GFR (CKD) 57 (>60 ml/min/1.73 sqM); Albumin 3.2 g/dL (3.5-5.0); Alkaline Phosphatase 112 U/L (38-126); Anion Gap 5 mmol/L; Blood Urea Nitrogen 32 mg/dL (7-17); Calcium 8.7 mg/dL (8.4-10.2); Carbon Dioxide 28 mmol/L (22-30); Chloride 103 mmol/L (98-107); Glucose 145 mg/dL (74-99); Non-African American GFR(CKD) 49 (>60 ml/min/1.73 sqM); Potassium 4.7 mmol/L (3.5-5.1); Sodium 136 mmol/L (137-145); Total Bilirubin 0.5 mg/dL (0.2-1.3); Total Protein 5.6 g/dL (6.3-8.2)
[2023-01-24 10:39] LABS: HGB 8.7 gm/dL (11.4-16.0)
[2023-01-24 11:18] LABS: Band Neutrophils % 1 %; Eosinophils # (M) 0.12 k/uL (0-0.7); Lymphocytes # (M) 1.42 k/uL (1.0-4.8); Metamyelocytes # (M) 0.12 k/uL (0); Metamyelocytes % 1 %; Monocytes # (M) 1.06 k/uL (0-1.0); Myelocytes # (M) 1.18 k/uL (0); Myelocytes % 10 %; Neutrophils % (M) 68 %; Nucleated Red Blood Cells 12 /100 WBC (0-0); Polychromasia Present; Total Cells Counted 200; WBC 11.8 k/uL (3.8-10.6)
[2023-01-24 11:19] LABS: Ovalocytes Present; Stomatocytes Present
[2023-01-24 11:42] LABS: Glucose,Whole Blood 186 mg/dL (70-110)
--- NOTE | 2023-01-24 12:23 | P.PN ---
Subjective Progress Note Date: 01/24/23 Principal diagnosis: Acute hypoxic respiratory failure secondary to acute diastolic congestive heart failure, doubt pneumonia 77-year-old female patient, multiple medical problems and comorbidities, comes from home with generalized weakness. Significant blood work abnormalities and the patient was found to have an initial hemoglobin of 4.2, hemoglobin was repeated at 4.6. The white cycles of 15.6. MCV level is at 72 consistent with iron deficiency anemia. Platelet counts are also low at 124. Also, the patient normal coagulation profile, sodium levels of 136 with a potassium level of 5.3, BUN is 65 and a creatinine of 2.01. Troponins are negative. LFTs are normal. Thyroid function tests are normal. Lactic acid level is at 5.2. Covid 19 testing was negative and the patient is currently on 2 L of oxygen by nasal cannula. Chest x-ray shows small bites pleural effusion along with increased interstitial markings bilaterally. The patient is hypothermic. The patient has been hospitalized on multiple occasions. She was in the hospital back in October 2022 feeling weak and at that time the patient was found to be anemic again. CAT scan of the abdomen was done that showed diverticulosis. Her previous EGD was done back in 2019. recent colonoscopies. Patient denies having any bright red blood per rectum. No melanotic stools. No hematemesis. Abdominal pain. No nausea and emesis. She has had previous blood work that showed iron deficiency. She is on anticoagulation with Eliquis. The patient is known to have multiple medical problems and comorbidities. The patient has CAD with previous stent, history of A. fib, hypertension, history of benign brain mass, peripheral neuropathy, sick sinus syndrome and the patient is a pacemaker in place and the with that the patient has chronic stage III kidney disease. The patient is blind in her left eye. The computed tomography scan of the brain was repeated during this current admission showed no acute abnormalities. There is stable postsurgical changes along with encephalomalacia involving the right parietal lobe. Her previous echo cardiac exam showed a preserved LV function. Previous CAT scan of the chest showed bilateral pleural effusion and interstitial edema along with extensive atherosclerosis. Patient was reevaluated today 01/21/2023, patient is on room air, O2 sats is 98%, feeling better today compared to yesterday, breathing easier, nonetheless she feels generally weak. Continues to have leukocytosis with WBC count of 18.7 hemoglobin is 7.6, patient did receive 2 units of packed RBCs since admission, patient presented with a hemoglobin of 4.2 initially on admission yesterday. BNP level on admission was over 15 800 , patient is not receiving any diuretics at present. He is receiving bronchodilators and antibiotics. On admission the patient had a BUN of 65 and creatinine of 2.01 her baseline creatinine is in the range of 1.29. Chest x-ray this morning is showing significant improvement compared to the chest x-ray on admission. Reevaluated today on 01/23/23, patient remains on 2 L nasal cannula, O2 sats is 99%, feeling better, however there is evidence of further drop in hemoglobin, patient received another unit of packed RBCs today. Clinically the patient is doing well, she seems to be relatively asymptomatic, her WBC count of 13.7 basic metabolic profile is normal BUN is 47 creatinine 1.4, remains empirically on antibiotics, remains on bronchodilators, pro-calcitonin level was slightly elevated at 0.53, but she clearly had significantly elevated BNP level. Reevaluated today on 01/24/23, patient is on 2 L nasal cannula with O2 sat 75%, not in any distress. Received a total of 3 units of packed RBCs for acute blood loss anemia most likely the patient had ongoing GI blood losses. Seen by Dr. Chaidez on consultation for her anemia and he is recommending endoscopy labs today showed WBC count of 11.8 hemoglobin 8.7 and platelets are 320,000, basic metabolic profile is normal BUN is 52 creatinine 1.08 gradually improved compared to 2.0 on admission patient received only a few doses of furosemide since admission. Objective - Vital Signs Vital signs: Vital Signs Temp 98.1 F 01/24/23 08:00 Pulse 75 01/24/23 09:41 Resp 18 01/24/23 08:00 BP 141/80 01/24/23 08:00 Pulse Ox 95 01/24/23 08:00 FiO2 Intake & Output 01/23/23 01/24/23 01/24/23 18:59 06:59 18:59 Intake Total 1030 240 Output Total 800 Balance 1030 -800 240 Intake: Oral 720 240 Blood Product 310 Rc As-1 Unit 310 [id number] Output: Urine 800 Other: Voiding Method External Catheter External Catheter External Catheter - Exam Physical Exam: Revealed 77-year-old female in no distress, on 2 L nasal cannula Head: Atraumatic, normocephalic HEENT:[Neck is supple.] [No neck masses.] [No thyromegaly.] [No JVD.] Chest: [Clear bilaterally no crackles or rhonchi or wheezes Cardiac Exam: [Normal S1 and S2, no S3 gallop, no murmur.] Abdomen: [Soft, nontender, no megaly, no rebound, no guarding, normal bowel sounds.] Extremities: [No clubbing, 1+ bipedal edema, no cyanosis.] Neurological Exam: [No focal neurologic deficit.] Patient is generally weak. Psychiatric: Normal mood, flat affect, normal mental status examination. Skin: No rashes - Labs CBC & Chem 7: 01/24/23 08:48 01/24/23 08:48 Labs: Abnormal Lab Results - Last 24 Hours (Table) 01/20/23 01/23/23 01/23/23 Range/Units 13:35 07:06 16:19 WBC 13.3 H (3.8-10.6) k/uL RBC (3.80-5.40) m/uL Hgb (11.4-16.0) gm/dL Hct (34.0-46.0) % RDW (11.5-15.5) % Neutrophils # (Manual) 9.70 H (1.3-7.7) k/uL Monocytes # (Manual) (0-1.0) k/uL Metamyelocytes # (Man) 0.27 H (0) k/uL Myelocytes # (Manual) 0.80 H (0) k/uL Nucleated RBCs 3 H (0-0) /100 WBC Sodium (137-145) mmol/L BUN (7-17) mg/dL Creatinine (0.52-1.04) mg/dL Glucose (74-99) mg/dL POC Glucose (mg/dL) 187 H (70-110) mg/dL ALT (4-34) U/L Total Protein (6.3-8.2) g/dL Albumin (3.5-5.0) g/dL Crossmatch See Detail 01/23/23 01/24/23 01/24/23 Range/Units 19:36 05:44 08:48 WBC 11.8 H (3.8-10.6) k/uL RBC 3.22 L (3.80-5.40) m/uL Hgb 8.7 L D (11.4-16.0) gm/dL Hct 27.2 L (34.0-46.0) % RDW 24.2 H (11.5-15.5) % Neutrophils # (Manual) 8.10 H (1.3-7.7) k/uL Monocytes # (Manual) 1.06 H (0-1.0) k/uL Metamyelocytes # (Man) 0.12 H (0) k/uL Myelocytes # (Manual) 1.18 H (0) k/uL Nucleated RBCs 12 H (0-0) /100 WBC Sodium (137-145) mmol/L BUN (7-17) mg/dL Creatinine (0.52-1.04) mg/dL Glucose (74-99) mg/dL POC Glucose (mg/dL) 164 H 140 H (70-110) mg/dL ALT (4-34) U/L Total Protein (6.3-8.2) g/dL Albumin (3.5-5.0) g/dL Crossmatch 01/24/23 01/24/23 Range/Units 08:48 11:38 WBC (3.8-10.6) k/uL RBC (3.80-5.40) m/uL Hgb (11.4-16.0) gm/dL Hct (34.0-46.0) % RDW (11.5-15.5) % Neutrophils # (Manual) (1.3-7.7) k/uL Monocytes # (Manual) (0-1.0) k/uL Metamyelocytes # (Man) (0) k/uL Myelocytes # (Manual) (0) k/uL Nucleated RBCs (0-0) /100 WBC Sodium 136 L (137-145) mmol/L BUN 32 H (7-17) mg/dL Creatinine 1.08 H (0.52-1.04) mg/dL Glucose 145 H (74-99) mg/dL POC Glucose (mg/dL) 186 H (70-110) mg/dL ALT 41 H (4-34) U/L Total Protein 5.6 L (6.3-8.2) g/dL Albumin 3.2 L (3.5-5.0) g/dL Crossmatch Microbiology - Last 24 Hours (Table) 01/20/23 13:05 Blood Culture Gram Stain - Final Blood Blood Culture - Final Coagulase Negative Staph 01/20/23 13:20 Blood Culture - Preliminary Blood Assessment and Plan Assessment: Impression: Acute on chronic anemia most likely this is a blood loss anemia, general surgery is considering endoscopy, patient received 2 units of packed RBCs since admission Acute hypoxic respiratory failure, with bilateral pleural effusions I still suspect that we are dealing with acute diastolic congestive heart failure, underlying pneumonia is felt to be less likely but not entirely ruled out. Alka ent improved with a few doses of Lasix. Generalized weakness, multifactorial Chronic kidney disease stage IIIB Chronic atrial fibrillation, maintained on eliquis Type 2 diabetes with diabetic nephropathy Underlying coronary artery disease Underlying COPD/asthma Peripheral neuropathy/diabetic neuropathy 6 sinus syndrome and previous pacemaker implantation History of L1 compression fracture Profound hypothermia on presentation with profound anemia Recommendation: Continue to monitor hemoglobin and addressed accordingly Continue present supportive care measures and present treatment plan Continue iron supplement and consult gastroenterology for EGD and colonoscopy Continue to hold anticoagulation therapy Diurese if necessary. At this point the patient is clinically stable We will continue to follow Time with Patient: Less than 30
[2023-01-24 16:12] LABS: Glucose,Whole Blood 208 mg/dL (70-110)
[2023-01-24 20:19] LABS: Glucose,Whole Blood 176 mg/dL (70-110)
[2023-01-24] MEDS: INSULIN DETEMIR (LEVEMIR) 100 UNIT/ML SYR SQ SCH (20:27)
[2023-01-24] MEDS: TAMSULOSIN 0.4 MG CAP.ER.24H PO SCH (20:27)
--- NOTE | 2023-01-25 02:35 | PN ---
PROGRESS NOTE SUBJECTIVE: Admitted with multifocal pneumonia, hypoxemic respiratory distress, acute on chronic anemia, waiting for GI and Oncology recommendations for why she is getting anemic. O2 is 96% on 2 L. OBJECTIVE: VITAL SIGNS: Blood pressures 140s to 150s over 50s to 60s, pulse 60 to 70, , temperature 97.8. CARDIOVASCULAR: S1, S2. LUNGS: Scattered rhonchi and wheeze. HEMATOLOGY: Negative Homans. PSYCHIATRIC: Fair mood and affect. GI: Soft, nontender. LABORATORY DATA: Hemoglobin is up to 8.7, white count is 11.8. Sodium 136, potassium 4.7, BUN 32, creatinine is 1.08. Sugars mid 100s to 200s. Albumin is 3.2. PROGNOSIS: Guarded. Continue treatment for pneumonia. Surgery saw her for anemia as well as Oncology. She had 2 units of blood. We will monitor her another day. Continue treatment for pneumonia. Possible discharge home soon. MMODL / IJN: [id number] /
[2023-01-25 06:04] LABS: Glucose,Whole Blood 148 mg/dL (70-110)
[2023-01-25] MEDS: INSULIN ASPART (NovoLOG) 100 UNIT/ML VIAL SQ SCH ×4 (06:07→20:09)
[2023-01-25] MEDS: PANTOPRAZOLE 40 MG TABLET PO SCH (06:23)
[2023-01-25] MEDS: CHOLECALCIFEROL 125 MCG (5000 IU) TABLET PO SCH (08:17)
[2023-01-25] MEDS: QUEtiapine 100 MG TAB PO SCH (08:17)
[2023-01-25] MEDS: amLODIPine 5 MG TAB PO SCH (08:17)
[2023-01-25] MEDS: CALCIUM CARB-VIT D 500 MG-5 MCG TAB PO SCH (08:17)
[2023-01-25] MEDS: levETIRAcetam 500 MG TAB PO SCH ×3 (08:17→20:31)
[2023-01-25] MEDS: SODIUM FERRIC GLUCONAT-SUCROSE 125 MG in SODIUM CHLORIDE 0.9% 100 ML IVPB SCH (08:17)
[2023-01-25] MEDS: IPRATROPIUM-ALBUTEROL 3 ML NEB INHALATION SCH ×2 (09:42→20:06)
[2023-01-25] MEDS: SYMBICORT 80-4.5 MCG INHALER INHALATION SCH ×2 (09:42→20:06)
--- NOTE | 2023-01-25 09:45 | P.PN ---
Progress Note - Text Progress Note Date: 01/25/23 Patient is sleeping in her bed. She does not appeared minimally distress. She's had no evidence of GI bleed. Hemoglobin is 8.7. On exam vital signs appear stable. Abdomen soft. Patient will undergo EGD colonoscopy when medically stable.
[2023-01-25 11:46] LABS: Glucose,Whole Blood 163 mg/dL (70-110)
--- NOTE | 2023-01-25 13:32 | PN ---
PROGRESS NOTE SUBJECTIVE: This is a 77-year-old white female, seen by Surgery for abdominal pain. No GI bleed. Hemoglobin is 8.7. EGD and colonoscopy when stable per the surgeon. Pulmonology saw her. She got 3 units of packed red blood cells so far since admission. OBJECTIVE: CARDIOVASCULAR: S1 and S2. LUNGS: Clear. HEMATOLOGY: 2 to 3+ edema. Acute on chronic anemia, this is a blood loss anemia; hypoxemic respiratory failure; acute diastolic heart failure; generalized weakness; chronic kidney disease stage IIIB; chronic atrial fibrillation; type 2 diabetes mellitus; diabetic nephropathy; COPD; asthma; coronary artery disease; peripheral neuropathy; sick sinus syndrome; L1 compression fracture; hypothermia; anemia. Prognosis, PT/OT. Possible discharge home when stable medically with iron and hemoglobins over the next couple days. Hold anticoagulants. MMODL / IJN: [id number] /
--- NOTE | 2023-01-25 14:40 | P.PN ---
Subjective Progress Note Date: 01/25/23 Principal diagnosis: Acute hypoxic respiratory failure secondary to acute diastolic congestive heart failure, doubt pneumonia 77-year-old female patient, multiple medical problems and comorbidities, comes from home with generalized weakness. Significant blood work abnormalities and the patient was found to have an initial hemoglobin of 4.2, hemoglobin was repeated at 4.6. The white cycles of 15.6. MCV level is at 72 consistent with iron deficiency anemia. Platelet counts are also low at 124. Also, the patient normal coagulation profile, sodium levels of 136 with a potassium level of 5.3, BUN is 65 and a creatinine of 2.01. Troponins are negative. LFTs are normal. Thyroid function tests are normal. Lactic acid level is at 5.2. Covid 19 testing was negative and the patient is currently on 2 L of oxygen by nasal cannula. Chest x-ray shows small bites pleural effusion along with increased interstitial markings bilaterally. The patient is hypothermic. The patient has been hospitalized on multiple occasions. She was in the hospital back in October 2022 feeling weak and at that time the patient was found to be anemic again. CAT scan of the abdomen was done that showed diverticulosis. Her previous EGD was done back in 2019. recent colonoscopies. Patient denies having any bright red blood per rectum. No melanotic stools. No hematemesis. Abdominal pain. No nausea and emesis. She has had previous blood work that showed iron deficiency. She is on anticoagulation with Eliquis. The patient is known to have multiple medical problems and comorbidities. The patient has CAD with previous stent, history of A. fib, hypertension, history of benign brain mass, peripheral neuropathy, sick sinus syndrome and the patient is a pacemaker in place and the with that the patient has chronic stage III kidney disease. The patient is blind in her left eye. The computed tomography scan of the brain was repeated during this current admission showed no acute abnormalities. There is stable postsurgical changes along with encephalomalacia involving the right parietal lobe. Her previous echo cardiac exam showed a preserved LV function. Previous CAT scan of the chest showed bilateral pleural effusion and interstitial edema along with extensive atherosclerosis. Patient was reevaluated today 01/21/2023, patient is on room air, O2 sats is 98%, feeling better today compared to yesterday, breathing easier, nonetheless she feels generally weak. Continues to have leukocytosis with WBC count of 18.7 hemoglobin is 7.6, patient did receive 2 units of packed RBCs since admission, patient presented with a hemoglobin of 4.2 initially on admission yesterday. BNP level on admission was over 15 800 , patient is not receiving any diuretics at present. He is receiving bronchodilators and antibiotics. On admission the patient had a BUN of 65 and creatinine of 2.01 her baseline creatinine is in the range of 1.29. Chest x-ray this morning is showing significant improvement compared to the chest x-ray on admission. Reevaluated today on 01/23/23, patient remains on 2 L nasal cannula, O2 sats is 99%, feeling better, however there is evidence of further drop in hemoglobin, patient received another unit of packed RBCs today. Clinically the patient is doing well, she seems to be relatively asymptomatic, her WBC count of 13.7 basic metabolic profile is normal BUN is 47 creatinine 1.4, remains empirically on antibiotics, remains on bronchodilators, pro-calcitonin level was slightly elevated at 0.53, but she clearly had significantly elevated BNP level. Reevaluated today on 01/24/23, patient is on 2 L nasal cannula with O2 sat 95%, not in any distress. Received a total of 3 units of packed RBCs for acute blood loss anemia most likely the patient had ongoing GI blood losses. Seen by Dr. Chaidez on consultation for her anemia and he is recommending endoscopy labs today showed WBC count of 11.8 hemoglobin 8.7 and platelets are 320,000, basic metabolic profile is normal BUN is 52 creatinine 1.08 gradually improved compared to 2.0 on admission patient received only a few doses of furosemide since admission. Reevaluated today on 01/25/23, patient continues to do well, patient denies any cough wheezing or shortness of breath, she received a total of 3 units of packed RBCs since admission, and an hemoglobin today is 8.7. Patient is being considered for endoscopy and I believe the patient is medically stable enough for endoscopy if is going to be done by Dr. Chaidez. Objective - Vital Signs Vital signs: Vital Signs Temp 98.0 F 01/25/23 08:15 Pulse 80 01/25/23 12:12 Resp 16 01/25/23 12:12 BP 154/64 01/25/23 12:12 Pulse Ox 94 L 01/25/23 12:12 FiO2 Intake & Output 01/24/23 01/25/23 01/25/23 18:59 06:59 18:59 Intake Total 980 550 Output Total 850 400 Balance 130 150 Weight 77.111 kg Intake: Intake, IV Titration 150 Amount Sodium Ferric Gluconat- 100 Sucrose 125 mg In Sodium Chloride 0.9% 100 ml @ 100 mls/hr IVPB DAILY [facility] Rx#:[id number] cefTRIAXone 2 gm In 50 Sodium Chloride 0.9% 50 ml @ 100 mls/hr IVPB Q24HR [facility] Rx#:[id number] Oral 830 550 Output: Urine 850 400 Other: Voiding Method External Catheter External Catheter External Catheter # Voids 3 1 # Bowel Movements 1 - Exam Physical Exam: Revealed 77-year-old female in no distress, on 2 L nasal cannula, O2 saturation of 94% Head: Atraumatic, normocephalic HEENT:[Neck is supple.] [No neck masses.] [No thyromegaly.] [No JVD.] Chest: [Clear bilaterally no crackles or rhonchi or wheezes Cardiac Exam: [Normal S1 and S2, no S3 gallop, no murmur.] Abdomen: [Soft, nontender, no megaly, no rebound, no guarding, normal bowel sounds.] Extremities: [No clubbing, 1+ bipedal edema, no cyanosis.] Neurological Exam: [No focal neurologic deficit.] Patient is generally weak. Psychiatric: Normal mood, flat affect, normal mental status examination. Skin: No rashes - Labs CBC & Chem 7: 01/24/23 08:48 01/24/23 08:48 Labs: Abnormal Lab Results - Last 24 Hours (Table) 01/24/23 01/24/23 01/25/23 Range/Units 16:07 20:18 06:03 POC Glucose (mg/dL) 208 H 176 H 148 H (70-110) mg/dL 01/25/23 Range/Units 11:45 POC Glucose (mg/dL) 163 H (70-110) mg/dL Microbiology - Last 24 Hours (Table) 01/20/23 13:05 Blood Culture Gram Stain - Final Blood Blood Culture - Final Coagulase Negative Staph Assessment and Plan Assessment: Impression: Acute on chronic anemia most likely this is a blood loss anemia, general surgery is considering endoscopy, patient received 3units of packed RBCs since admission Acute hypoxic respiratory failure, with bilateral pleural effusions I still suspect that we are dealing with acute diastolic congestive heart failure, underlying pneumonia is felt to be less likely but not entirely ruled out. Patient improved with a few doses of Lasix. Generalized weakness, multifactorial Chronic kidney disease stage IIIB Chronic atrial fibrillation, maintained on eliquis Type 2 diabetes with diabetic nephropathy Underlying coronary artery disease Underlying COPD/asthma Peripheral neuropathy/diabetic neuropathy 6 sinus syndrome and previous pacemaker implantation History of L1 compression fracture Profound hypothermia on presentation with profound anemia Recommendation: We'll clear the patient for endoscopy, patient is definitely medically stable for EGD and/or colonoscopy Continue to monitor hemoglobin and addressed accordingly Continue present supportive care measures and present treatment plan Continue iron supplement Continue to hold anticoagulation therapy Diurese if necessary. At this point the patient is clinically stable We will continue to follow Time with Patient: Less than 30
[2023-01-25 16:31] LABS: Glucose,Whole Blood 201 mg/dL (70-110)
[2023-01-25 20:06] LABS: Glucose,Whole Blood 101 mg/dL (70-110)
[2023-01-25] MEDS: TAMSULOSIN 0.4 MG CAP.ER.24H PO SCH (20:31)
[2023-01-25] MEDS: INSULIN DETEMIR (LEVEMIR) 100 UNIT/ML SYR SQ SCH (20:31)
[2023-01-26 06:19] LABS: Glucose,Whole Blood 146 mg/dL (70-110)
[2023-01-26] MEDS: INSULIN ASPART (NovoLOG) 100 UNIT/ML VIAL SQ SCH ×4 (06:26→20:21)
[2023-01-26] MEDS: PANTOPRAZOLE 40 MG TABLET PO SCH (06:27)
--- NOTE | 2023-01-26 07:32 | P.PN ---
Progress Note - Text Progress Note Date: 01/26/23 Patient responded to soapsuds enema yesterday. She's had several bowel movements. She is tolerating a diet. On exam vital signs appear stable. Abdomen soft. Patient [place] stable. She should undergo endoscopy with stable as an outpatient.
[2023-01-26 08:12] LABS: Anisocytosis Marked; HCT 26.9 % (34.0-46.0); HGB 8.4 gm/dL (11.4-16.0); Hypochromasia Marked; MCH 27.6 pg (25.0-35.0); MCHC 31.4 g/dL (31.0-37.0); MCV 87.9 fL (80.0-100.0); Macrocytosis Slight; Mean Platelet Volume 8.1; Microcytosis Slight; Platelet Count 329 k/uL (150-450); Poikilocytosis Marked; RBC 3.06 m/uL (3.80-5.40)
[2023-01-26] MEDS: SYMBICORT 80-4.5 MCG INHALER INHALATION SCH ×2 (08:26→20:26)
[2023-01-26] MEDS: IPRATROPIUM-ALBUTEROL 3 ML NEB INHALATION SCH ×2 (08:26→20:25)
[2023-01-26 08:34] LABS: ALT 26 U/L (4-34); AST 25 U/L (14-36); African American GFR (CKD) 67 (>60 ml/min/1.73 sqM); Alkaline Phosphatase 100 U/L (38-126); Anion Gap 6 mmol/L; Blood Urea Nitrogen 24 mg/dL (7-17); Calcium 8.8 mg/dL (8.4-10.2); Carbon Dioxide 29 mmol/L (22-30); Chloride 103 mmol/L (98-107); Glucose 135 mg/dL (74-99); Non-African American GFR(CKD) 58 (>60 ml/min/1.73 sqM); Potassium 4.6 mmol/L (3.5-5.1); Sodium 138 mmol/L (137-145); Total Bilirubin 0.4 mg/dL (0.2-1.3); Total Protein 5.4 g/dL (6.3-8.2)
[2023-01-26] MEDS: CHOLECALCIFEROL 125 MCG (5000 IU) TABLET PO SCH (08:35)
[2023-01-26] MEDS: amLODIPine 5 MG TAB PO SCH (08:35)
[2023-01-26] MEDS: CALCIUM CARB-VIT D 500 MG-5 MCG TAB PO SCH (08:35)
[2023-01-26] MEDS: levETIRAcetam 500 MG TAB PO SCH ×3 (08:35→20:21)
[2023-01-26] MEDS: QUEtiapine 100 MG TAB PO SCH (08:35)
[2023-01-26] MEDS: SODIUM FERRIC GLUCONAT-SUCROSE 125 MG in SODIUM CHLORIDE 0.9% 100 ML IVPB SCH (08:36)
[2023-01-26 09:14] LABS: Band Neutrophils % 2 %; Basophils # (M) 0.08 k/uL (0-0.2); Metamyelocytes % 5 %; Myelocytes % 4 %; Neutrophils % (M) 52 %; Nucleated Red Blood Cells 3 /100 WBC (0-0); Total Cells Counted 200
[2023-01-26 09:15] LABS: Lymphocytes # (M) 1.58 k/uL (1.0-4.8); Metamyelocytes # (M) 0.38 k/uL (0); Mixed Population RBC Present; Monocytes # (M) 1.05 k/uL (0-1.0); Polychromasia Present; WBC 7.5 k/uL (3.8-10.6)
[2023-01-26 09:16] LABS: Basophilic Stippling Present
[2023-01-26 11:31] LABS: Glucose,Whole Blood 152 mg/dL (70-110)
[2023-01-26] MEDS: FUROSEMIDE 10 MG/ML 2 ML VIAL IV SCH (12:08)
--- NOTE | 2023-01-26 14:40 | P.PN ---
Subjective Progress Note Date: 01/26/23 Principal diagnosis: Acute hypoxic respiratory failure secondary to acute diastolic congestive heart failure, doubt pneumonia 77-year-old female patient, multiple medical problems and comorbidities, comes from home with generalized weakness. Significant blood work abnormalities and the patient was found to have an initial hemoglobin of 4.2, hemoglobin was repeated at 4.6. The white cycles of 15.6. MCV level is at 72 consistent with iron deficiency anemia. Platelet counts are also low at 124. Also, the patient normal coagulation profile, sodium levels of 136 with a potassium level of 5.3, BUN is 65 and a creatinine of 2.01. Troponins are negative. LFTs are normal. Thyroid function tests are normal. Lactic acid level is at 5.2. Covid 19 testing was negative and the patient is currently on 2 L of oxygen by nasal cannula. Chest x-ray shows small bites pleural effusion along with increased interstitial markings bilaterally. The patient is hypothermic. The patient has been hospitalized on multiple occasions. She was in the hospital back in October 2022 feeling weak and at that time the patient was found to be anemic again. CAT scan of the abdomen was done that showed diverticulosis. Her previous EGD was done back in 2019. recent colonoscopies. Patient denies having any bright red blood per rectum. No melanotic stools. No hematemesis. Abdominal pain. No nausea and emesis. She has had previous blood work that showed iron deficiency. She is on anticoagulation with Eliquis. The patient is known to have multiple medical problems and comorbidities. The patient has CAD with previous stent, history of A. fib, hypertension, history of benign brain mass, peripheral neuropathy, sick sinus syndrome and the patient is a pacemaker in place and the with that the patient has chronic stage III kidney disease. The patient is blind in her left eye. The computed tomography scan of the brain was repeated during this current admission showed no acute abnormalities. There is stable postsurgical changes along with encephalomalacia involving the right parietal lobe. Her previous echo cardiac exam showed a preserved LV function. Previous CAT scan of the chest showed bilateral pleural effusion and interstitial edema along with extensive atherosclerosis. Patient was reevaluated today 01/21/2023, patient is on room air, O2 sats is 98%, feeling better today compared to yesterday, breathing easier, nonetheless she feels generally weak. Continues to have leukocytosis with WBC count of 18.7 hemoglobin is 7.6, patient did receive 2 units of packed RBCs since admission, patient presented with a hemoglobin of 4.2 initially on admission yesterday. BNP level on admission was over 15 800 , patient is not receiving any diuretics at present. He is receiving bronchodilators and antibiotics. On admission the patient had a BUN of 65 and creatinine of 2.01 her baseline creatinine is in the range of 1.29. Chest x-ray this morning is showing significant improvement compared to the chest x-ray on admission. Reevaluated today on 01/23/23, patient remains on 2 L nasal cannula, O2 sats is 99%, feeling better, however there is evidence of further drop in hemoglobin, patient received another unit of packed RBCs today. Clinically the patient is doing well, she seems to be relatively asymptomatic, her WBC count of 13.7 basic metabolic profile is normal BUN is 47 creatinine 1.4, remains empirically on antibiotics, remains on bronchodilators, pro-calcitonin level was slightly elevated at 0.53, but she clearly had significantly elevated BNP level. Reevaluated today on 01/24/23, patient is on 2 L nasal cannula with O2 sat 95%, not in any distress. Received a total of 3 units of packed RBCs for acute blood loss anemia most likely the patient had ongoing GI blood losses. Seen by Dr. Chaidez on consultation for her anemia and he is recommending endoscopy labs today showed WBC count of 11.8 hemoglobin 8.7 and platelets are 320,000, basic metabolic profile is normal BUN is 52 creatinine 1.08 gradually improved compared to 2.0 on admission patient received only a few doses of furosemide since admission. Reevaluated today on 01/25/23, patient continues to do well, patient denies any cough wheezing or shortness of breath, she received a total of 3 units of packed RBCs since admission, and an hemoglobin today is 8.7. Patient is being considered for endoscopy and I believe the patient is medically stable enough for endoscopy if is going to be done by Dr. Chaidez. Reevaluated today 01/26/23, patient is doing well, she is basically asymptomatic, denies any specific complaints. On 2 L with O2 sats of 96%. Denies any shortness of breath cough or wheezing. Hemoglobin today is 8.4., All in all the patient received a total of 3 units of packed RBCs since admission, and now the note from the surgeon on the case is recommending outpatient endoscopy although he was planning endoscopy when the patient is cleared from the medical perspective. Objective - Vital Signs Vital signs: Vital Signs Temp 98.1 F 01/26/23 08:28 Pulse 74 01/26/23 14:03 Resp 18 01/26/23 14:03 BP 151/67 01/26/23 12:06 Pulse Ox 96 01/26/23 12:06 FiO2 Intake & Output 01/25/23 01/26/23 01/26/23 18:59 06:59 18:59 Intake Total 550 540 660 Output Total 900 800 850 Balance -350 -260 -190 Weight 77.111 kg Intake: Oral 550 540 660 Output: Urine 900 800 850 Other: Voiding Method External Catheter External Catheter External Catheter # Voids 1 # Bowel Movements 1 - Exam Physical Exam: Revealed 77-year-old female in no distress, on 2 L nasal cannula, O2 saturation of 96% Head: Atraumatic, normocephalic HEENT:[Neck is supple.] [No neck masses.] [No thyromegaly.] [No JVD.] Chest: [Clear bilaterally no crackles or rhonchi or wheezes Cardiac Exam: [Normal S1 and S2, no S3 gallop, no murmur.] Abdomen: [Soft, nontender, no megaly, no rebound, no guarding, normal bowel sounds.] Extremities: [No clubbing, 1+ bipedal edema, no cyanosis.], Swelling in her lower extremities seems to be worse Neurological Exam: [No focal neurologic deficit.] Patient is generally weak. Psychiatric: Normal mood, flat affect, normal mental status examination. Skin: No rashes - Labs CBC & Chem 7: 01/26/23 07:41 01/26/23 07:41 Labs: Abnormal Lab Results - Last 24 Hours (Table) 01/25/23 01/26/23 01/26/23 Range/Units 16:29 06:17 07:41 RBC 3.06 L (3.80-5.40) m/uL Hgb 8.4 L (11.4-16.0) gm/dL Hct 26.9 L (34.0-46.0) % RDW 26.0 H (11.5-15.5) % Monocytes # (Manual) 1.05 H (0-1.0) k/uL Metamyelocytes # (Man) 0.38 H (0) k/uL Myelocytes # (Manual) 0.30 H (0) k/uL Nucleated RBCs 3 H (0-0) /100 WBC BUN (7-17) mg/dL Glucose (74-99) mg/dL POC Glucose (mg/dL) 201 H 146 H (70-110) mg/dL Total Protein (6.3-8.2) g/dL Albumin (3.5-5.0) g/dL 01/26/23 01/26/23 Range/Units 07:41 11:29 RBC (3.80-5.40) m/uL Hgb (11.4-16.0) gm/dL Hct (34.0-46.0) % RDW (11.5-15.5) % Monocytes # (Manual) (0-1.0) k/uL Metamyelocytes # (Man) (0) k/uL Myelocytes # (Manual) (0) k/uL Nucleated RBCs (0-0) /100 WBC BUN 24 H (7-17) mg/dL Glucose 135 H (74-99) mg/dL POC Glucose (mg/dL) 152 H (70-110) mg/dL Total Protein 5.4 L (6.3-8.2) g/dL Albumin 3.0 L (3.5-5.0) g/dL Microbiology - Last 24 Hours (Table) 01/20/23 13:20 Blood Culture - Final Blood Assessment and Plan Assessment: Impression: Acute on chronic anemia most likely this is a blood loss anemia, general surgery is considering endoscopy, patient received 3units of packed RBCs since admission Acute hypoxic respiratory failure, with bilateral pleural effusions I still suspect that we are dealing with acute diastolic congestive heart failure, underlying pneumonia is felt to be less likely but not entirely ruled out. Patient improved with a few doses of Lasix. Generalized weakness, multifactorial Chronic kidney disease stage IIIB Chronic atrial fibrillation, maintained on eliquis Type 2 diabetes with diabetic nephropathy Underlying coronary artery disease Underlying COPD/asthma Peripheral neuropathy/diabetic neuropathy 6 sinus syndrome and previous pacemaker implantation History of L1 compression fracture Profound hypothermia on presentation with profound anemia Recommendation: Gentle diuresis Surgery now is recommending outpatient endoscopy Continue to monitor hemoglobin , if remains stable consider discharge planning and outpatient follow-up with gastroenterology Continue present supportive care measures and present treatment plan Continue iron supplement Continue to hold anticoagulation therapy We will continue to follow Time with Patient: Less than 30
[2023-01-26 16:26] LABS: Glucose,Whole Blood 142 mg/dL (70-110)
[2023-01-26 20:06] LABS: Glucose,Whole Blood 178 mg/dL (70-110)
[2023-01-26] MEDS: INSULIN DETEMIR (LEVEMIR) 100 UNIT/ML SYR SQ SCH (20:21)
[2023-01-26] MEDS: TAMSULOSIN 0.4 MG CAP.ER.24H PO SCH (20:21)
[2023-01-27 06:02] LABS: Glucose,Whole Blood 151 mg/dL (70-110)
[2023-01-27] MEDS: INSULIN ASPART (NovoLOG) 100 UNIT/ML VIAL SQ SCH ×4 (06:09→22:03)
[2023-01-27] MEDS: PANTOPRAZOLE 40 MG TABLET PO SCH (06:09)
[2023-01-27] MEDS: IPRATROPIUM-ALBUTEROL 3 ML NEB INHALATION SCH ×2 (07:49→20:56)
[2023-01-27] MEDS: SYMBICORT 80-4.5 MCG INHALER INHALATION SCH ×2 (07:49→20:57)
[2023-01-27] MEDS: QUEtiapine 100 MG TAB PO SCH (08:20)
[2023-01-27] MEDS: CALCIUM CARB-VIT D 500 MG-5 MCG TAB PO SCH (08:20)
[2023-01-27] MEDS: amLODIPine 5 MG TAB PO SCH (08:20)
[2023-01-27] MEDS: CHOLECALCIFEROL 125 MCG (5000 IU) TABLET PO SCH (08:20)
[2023-01-27] MEDS: levETIRAcetam 500 MG TAB PO SCH ×3 (08:20→22:02)
[2023-01-27] MEDS: FUROSEMIDE 10 MG/ML 2 ML VIAL IV SCH (08:21)
--- NOTE | 2023-01-27 11:30 | P.PN ---
Progress Note - Text Progress Note Date: 01/27/23 the patient appears stable. Her hemoglobin is 9.4. On exam vital signs appear stable. Abdomen is soft nontender I discussed the patient the need for colonoscopy. Patient is relurerefusing colonoscopy currently. This can be scheduled an outpatient if she changes her mind.
[2023-01-27 11:47] LABS: Glucose,Whole Blood 196 mg/dL (70-110)
--- NOTE | 2023-01-27 12:13 | XR ---
EXAMINATION TYPE: XR chest 1V portable DATE OF EXAM: 01/27/2023 12:04 PM CLINICAL INDICATION:Female, 77 years old with history of chf; [facility] COMPARISON: Chest radiographs from TECHNIQUE: XR chest 1V portable Frontal view of the chest. FINDINGS: Lungs/Pleura: Stable trace bilateral pleural effusions. Pulmonary vascularity: Improved point vascular congestion. Heart/mediastinum: Stable cardiomegaly. Left chest wall AICD device. Musculoskeletal: No acute osseous pathology. IMPRESSION: Stable cardiomegaly and trace pleural effusions with improved pulmonary vascular congestion.
--- NOTE | 2023-01-27 14:57 | P.PN ---
Subjective Progress Note Date: 01/27/23 Principal diagnosis: Acute hypoxic respiratory failure secondary to acute diastolic congestive heart failure, doubt pneumonia 77-year-old female patient, multiple medical problems and comorbidities, comes from home with generalized weakness. Significant blood work abnormalities and the patient was found to have an initial hemoglobin of 4.2, hemoglobin was repeated at 4.6. The white cycles of 15.6. MCV level is at 72 consistent with iron deficiency anemia. Platelet counts are also low at 124. Also, the patient normal coagulation profile, sodium levels of 136 with a potassium level of 5.3, BUN is 65 and a creatinine of 2.01. Troponins are negative. LFTs are normal. Thyroid function tests are normal. Lactic acid level is at 5.2. Covid 19 testing was negative and the patient is currently on 2 L of oxygen by nasal cannula. Chest x-ray shows small bites pleural effusion along with increased interstitial markings bilaterally. The patient is hypothermic. The patient has been hospitalized on multiple occasions. She was in the hospital back in October 2022 feeling weak and at that time the patient was found to be anemic again. CAT scan of the abdomen was done that showed diverticulosis. Her previous EGD was done back in 2019. recent colonoscopies. Patient denies having any bright red blood per rectum. No melanotic stools. No hematemesis. Abdominal pain. No nausea and emesis. She has had previous blood work that showed iron deficiency. She is on anticoagulation with Eliquis. The patient is known to have multiple medical problems and comorbidities. The patient has CAD with previous stent, history of A. fib, hypertension, history of benign brain mass, peripheral neuropathy, sick sinus syndrome and the patient is a pacemaker in place and the with that the patient has chronic stage III kidney disease. The patient is blind in her left eye. The computed tomography scan of the brain was repeated during this current admission showed no acute abnormalities. There is stable postsurgical changes along with encephalomalacia involving the right parietal lobe. Her previous echo cardiac exam showed a preserved LV function. Previous CAT scan of the chest showed bilateral pleural effusion and interstitial edema along with extensive atherosclerosis. Patient was reevaluated today 01/21/2023, patient is on room air, O2 sats is 98%, feeling better today compared to yesterday, breathing easier, nonetheless she feels generally weak. Continues to have leukocytosis with WBC count of 18.7 hemoglobin is 7.6, patient did receive 2 units of packed RBCs since admission, patient presented with a hemoglobin of 4.2 initially on admission yesterday. BNP level on admission was over 15 800 , patient is not receiving any diuretics at present. He is receiving bronchodilators and antibiotics. On admission the patient had a BUN of 65 and creatinine of 2.01 her baseline creatinine is in the range of 1.29. Chest x-ray this morning is showing significant improvement compared to the chest x-ray on admission. Reevaluated today on 01/23/23, patient remains on 2 L nasal cannula, O2 sats is 99%, feeling better, however there is evidence of further drop in hemoglobin, patient received another unit of packed RBCs today. Clinically the patient is doing well, she seems to be relatively asymptomatic, her WBC count of 13.7 basic metabolic profile is normal BUN is 47 creatinine 1.4, remains empirically on antibiotics, remains on bronchodilators, pro-calcitonin level was slightly elevated at 0.53, but she clearly had significantly elevated BNP level. Reevaluated today on 01/24/23, patient is on 2 L nasal cannula with O2 sat 95%, not in any distress. Received a total of 3 units of packed RBCs for acute blood loss anemia most likely the patient had ongoing GI blood losses. Seen by Dr. Chaidez on consultation for her anemia and he is recommending endoscopy labs today showed WBC count of 11.8 hemoglobin 8.7 and platelets are 320,000, basic metabolic profile is normal BUN is 52 creatinine 1.08 gradually improved compared to 2.0 on admission patient received only a few doses of furosemide since admission. Reevaluated today on 01/25/23, patient continues to do well, patient denies any cough wheezing or shortness of breath, she received a total of 3 units of packed RBCs since admission, and an hemoglobin today is 8.7. Patient is being considered for endoscopy and I believe the patient is medically stable enough for endoscopy if is going to be done by Dr. Chaidez. Reevaluated today 01/26/23, patient is doing well, she is basically asymptomatic, denies any specific complaints. On 2 L with O2 sats of 96%. Denies any shortness of breath cough or wheezing. Hemoglobin today is 8.4., All in all the patient received a total of 3 units of packed RBCs since admission, and now the note from the surgeon on the case is recommending outpatient endoscopy although he was planning endoscopy when the patient is cleared from the medical perspective. Reevaluated today on 01/27/23 patient is doing great, basically asymptomatic, I discussed her condition today with Dr. Chaidez apparently the patient is refusing to have EGD or colonoscopy. She is refusing any endoscopy procedures. Her chest x-ray showed dramatic improvement compared to the chest x-ray on admission I have recommended yesterday that the patient remains on Lasix, 20 mg IV push daily, and I will transition this to oral Lasix. Patient's hemoglobin was 8.4 yesterday, he should is not requiring any further blood transfusion for some time, hence I believe the patient should be considered for discharge planning and follow-up with gastroenterology and possible endoscopy on outpatient basis. At this point at least patient is refusing to have endoscopy Objective - Vital Signs Vital signs: Vital Signs Temp 98.1 F 01/27/23 08:17 Pulse 68 01/27/23 13:50 Resp 18 01/27/23 13:50 BP 120/34 01/27/23 12:00 Pulse Ox 95 01/27/23 12:06 FiO2 Intake & Output 01/26/23 01/27/23 01/27/23 18:59 06:59 18:59 Intake Total 1020 1080 720 Output Total 850 1550 Balance 170 -470 720 Weight 99 kg Intake: Oral 1020 1080 720 Output: Urine 850 1550 Other: Voiding Method External Catheter External Catheter External Catheter - Exam Physical Exam: Revealed 77-year-old female in no distress, on 2 L nasal cannula, O2 saturation of 96% Head: Atraumatic, normocephalic HEENT:[Neck is supple.] [No neck masses.] [No thyromegaly.] [No JVD.] Chest: [Clear bilaterally no crackles or rhonchi or wheezes Cardiac Exam: [Normal S1 and S2, no S3 gallop, no murmur.] Abdomen: [Soft, nontender, no megaly, no rebound, no guarding, normal bowel sounds.] Extremities: [No clubbing, trace of bipedal edema, no cyanosis.], Swelling in her lower extremities seems to be worse Neurological Exam: [No focal neurologic deficit.] Patient is generally weak. Psychiatric: Normal mood, flat affect, normal mental status examination. Skin: No rashes - Labs CBC & Chem 7: 01/26/23 07:41 01/26/23 07:41 Labs: Abnormal Lab Results - Last 24 Hours (Table) 01/26/23 01/26/23 01/27/23 Range/Units 16:24 20:04 06:01 POC Glucose (mg/dL) 142 H 178 H 151 H (70-110) mg/dL 01/27/23 Range/Units 11:46 POC Glucose (mg/dL) 196 H (70-110) mg/dL Assessment and Plan Assessment: Impression: Acute on chronic anemia most likely this is a blood loss anemia, general surgery is considering endoscopy, patient received 3units of packed RBCs since admission Acute hypoxic respiratory failure, with bilateral pleural effusions I still suspect that we are dealing with acute diastolic congestive heart failure, underlying pneumonia is felt to be less likely but not entirely ruled out. Patient improved with a few doses of Lasix. Generalized weakness, multifactorial Chronic kidney disease stage IIIB Chronic atrial fibrillation, maintained on eliquis Type 2 diabetes with diabetic nephropathy Underlying coronary artery disease Underlying COPD/asthma Peripheral neuropathy/diabetic neuropathy 6 sinus syndrome and previous pacemaker implantation History of L1 compression fracture Profound hypothermia on presentation with profound anemia Recommendation: Reviewed chest x-ray and reassuring, significantly better Patient is declining endoscopy has this could be done on outpatient basis with gastroenterology or surgery Continue Lasix 20 mg by mouth daily Consider discharge planning in the next 24 hours, I will clear the patient for discharge if cleared by other consultants Continue iron supplement Will see as needed Time with Patient: Less than 30
[2023-01-27 16:23] LABS: Glucose,Whole Blood 168 mg/dL (70-110)
[2023-01-27 20:12] LABS: Glucose,Whole Blood 169 mg/dL (70-110)
[2023-01-27] MEDS: TAMSULOSIN 0.4 MG CAP.ER.24H PO SCH (22:03)
[2023-01-27] MEDS: INSULIN DETEMIR (LEVEMIR) 100 UNIT/ML SYR SQ SCH (22:03)
[2023-01-28 06:16] LABS: Glucose,Whole Blood 171 mg/dL (70-110)
[2023-01-28] MEDS: PANTOPRAZOLE 40 MG TABLET PO SCH (06:47)
[2023-01-28] MEDS: INSULIN ASPART (NovoLOG) 100 UNIT/ML VIAL SQ SCH ×4 (06:47→20:40)
[2023-01-28] MEDS: levETIRAcetam 500 MG TAB PO SCH ×3 (08:14→20:40)
[2023-01-28] MEDS: FUROSEMIDE 20 MG TAB PO SCH (08:14)
[2023-01-28] MEDS: amLODIPine 5 MG TAB PO SCH (08:14)
[2023-01-28] MEDS: CALCIUM CARB-VIT D 500 MG-5 MCG TAB PO SCH (08:14)
[2023-01-28] MEDS: CHOLECALCIFEROL 125 MCG (5000 IU) TABLET PO SCH (08:14)
[2023-01-28] MEDS: QUEtiapine 100 MG TAB PO SCH (08:14)
[2023-01-28] MEDS: SYMBICORT 80-4.5 MCG INHALER INHALATION SCH ×2 (08:20→20:18)
[2023-01-28] MEDS: IPRATROPIUM-ALBUTEROL 3 ML NEB INHALATION SCH ×2 (08:20→20:18)
[2023-01-28 09:46] LABS: Anisocytosis Marked; Basophils % (A) 0 %; Eosinophils # (A) 0.2 k/uL (0-0.7); Eosinophils % (A) 2 %; HCT 31.5 % (34.0-46.0); HGB 9.3 gm/dL (11.4-16.0); Hypochromasia Marked; Lymphocytes # (A) 1.4 k/uL (1.0-4.8); Lymphocytes % (A) 14 %; MCH 26.9 pg (25.0-35.0); MCHC 29.5 g/dL (31.0-37.0); MCV 91.3 fL (80.0-100.0); Macrocytosis Slight; Mean Platelet Volume 8.7; Microcytosis Slight; Monocytes % (A) 10 %; Neutrophils % (A) 70 %; Platelet Count 328 k/uL (150-450); Poikilocytosis Marked; RBC 3.45 m/uL (3.80-5.40); RDW 24.9 % (11.5-15.5); WBC 9.9 k/uL (3.8-10.6)
[2023-01-28 11:37] LABS: Glucose,Whole Blood 183 mg/dL (70-110)
--- NOTE | 2023-01-28 12:02 | P.PN ---
Subjective Progress Note Date: 01/28/23 CHIEF COMPLAINT: Anemia HISTORY OF PRESENT ILLNESS: Patient admitted to the hospital with anemia. No evidence of active GI bleed. Patient denies any abdominal pain. Denies any blood in her stools. Patient refused colonoscopy currently. Vitals stable. Hemoglobin has come up from 8.4-9.3. Hemoglobin on admission 4.2 PHYSICAL EXAM: VITAL SIGNS: Reviewed. GENERAL: Well-developed in no acute distress. ABDOMEN: Soft. Nondistended. Nontender. NEUROLOGIC: Alert and oriented. Cranial nerves II through XII grossly intact. ASSESSMENT: 1. Anemia 2. History of chronic anemia PLAN: -Patient refused colonoscopy. Patient can have colonoscopy completed outpatient if she changes her mind Physician Pressroom Supervisor note has been reviewed by physician. Signing provider agrees with the documented findings, assessment, and plan of care. Objective - Vital Signs Vital signs: Vital Signs Temp 98.3 F 01/28/23 08:13 Pulse 64 01/28/23 08:31 Resp 18 01/28/23 08:13 BP 146/65 01/28/23 08:13 Pulse Ox 98 01/28/23 08:21 FiO2 Intake & Output 01/27/23 01/28/23 01/28/23 18:59 06:59 18:59 Intake Total 658 Output Total 1700 Balance 658 -1700 Intake: Oral 658 Output: Urine 1700 Other: Voiding Method External Catheter External Catheter - Labs CBC & Chem 7: 01/28/23 09:14 01/26/23 07:41 Labs: Abnormal Lab Results - Last 24 Hours (Table) 01/27/23 01/27/23 01/27/23 Range/Units 11:46 16:21 20:10 RBC (3.80-5.40) m/uL Hgb (11.4-16.0) gm/dL Hct (34.0-46.0) % MCHC (31.0-37.0) g/dL RDW (11.5-15.5) % POC Glucose (mg/dL) 196 H 168 H 169 H (70-110) mg/dL 01/28/23 01/28/23 Range/Units 06:15 09:14 RBC 3.45 L (3.80-5.40) m/uL Hgb 9.3 L (11.4-16.0) gm/dL Hct 31.5 L (34.0-46.0) % MCHC 29.5 L (31.0-37.0) g/dL RDW 24.9 H (11.5-15.5) % POC Glucose (mg/dL) 171 H (70-110) mg/dL
--- NOTE | 2023-01-28 12:06 | P.PN ---
Subjective Progress Note Date: 01/28/23 Principal diagnosis: Pneumonia. Reevaluated today on 01/24/23, patient is on 2 L nasal cannula with O2 sat 95%, not in any distress. Received a total of 3 units of packed RBCs for acute blood loss anemia most likely the patient had ongoing GI blood losses. Seen by Dr. Chaidez on consultation for her anemia and he is recommending endoscopy labs today showed WBC count of 11.8 hemoglobin 8.7 and platelets are 320,000, basic metabolic profile is normal BUN is 52 creatinine 1.08 gradually improved compared to 2.0 on admission patient received only a few doses of furosemide s blanco admission. Reevaluated today on 01/25/23, patient continues to do well, patient denies any cough wheezing or shortness of breath, she received a total of 3 units of packed RBCs since admission, and an hemoglobin today is 8.7. Patient is being considered for endoscopy and I believe the patient is medically stable enough for endoscopy if is going to be done by Dr. Chaidez. Reevaluated today 01/26/23, patient is doing well, she is basically asymptomatic, denies any specific complaints. On 2 L with O2 sats of 96%. Denies any shortness of breath cough or wheezing. Hemoglobin today is 8.4., All in all the patient received a total of 3 units of packed RBCs since admission, and now the note from the surgeon on the case is recommending outpatient endoscopy although he was planning endoscopy when the patient is cleared from the medical perspective. Reevaluated today on 01/27/23 patient is doing great, basically asymptomatic, I discussed her condition today with Dr. Chaidez apparently the patient is refusing to have EGD or colonoscopy. She is refusing any endoscopy procedures. Her chest x-ray showed dramatic improvement compared to the chest x-ray on admission I have recommended yesterday that the patient remains on Lasix, 20 mg IV push daily, and I will transition this to oral Lasix. Patient's hemoglobin was 8.4 yesterday, he should is not requiring any further blood transfusion for some time, hence I believe the patient should be considered for discharge planning and follow-up with gastroenterology and possible endoscopy on outpatient basis. At this point at least patient is refusing to have endoscopy Progress note dated 01/28/2023. The patient is seen today in room 355. She continues on oxygen at 2 L by nasal cannula. She's not receiving any IV fluids. The patient is apparently refusing to have an EGD or colonoscopy. Her chest x-rays, are improved, and her oxygenation is improved as well. She continues on Lasix therapy. Labs today include a white count of 9.9, hemoglobin 9.3, hematocrit 31.5, and a normal platelet count. Glucose is 183. Blood cultures from January 20 are positive for coagulase negative staph. Yesterday's chest x-ray shows cardiomegaly, trace pleural effusions, and improved pulmonary vascular congestion. Objective - Vital Signs Vital signs: Vital Signs Temp 98.3 F 01/28/23 08:13 Pulse 64 01/28/23 11:44 Resp 18 01/28/23 11:44 BP 146/65 01/28/23 08:13 Pulse Ox 98 01/28/23 08:21 FiO2 Intake & Output 01/27/23 01/28/23 01/28/23 18:59 06:59 18:59 Intake Total 658 Output Total 1700 Balance 658 -1700 Intake: Oral 658 Output: Urine 1700 Other: Voiding Method External Catheter External Catheter External Catheter - Exam No acute distress, oriented 3. The patient continues on oxygen at 2 L. HEENT examination is grossly unremarkable. Neck supple. Full range of motion. No adenopathy thyromegaly or neck vein distention. Cardiovascular examination reveals regular rhythm rate. S1-S2 normal. No S3 or S4. No discernible murmur noted. Heart rate 64 bpm. Heart sounds are distant. Lungs reveal clear breath sounds. Breath sounds are equal bilaterally. No adventitious lung sounds including wheezes rhonchi or crackles. 2 L saturation is 98%. Abdomen soft bowel sounds are heard. No masses or tenderness. Extremities are intact. No cyanosis clubbing or edema. Skin is without rash or lesion. Neurologic examination is brief but nonfocal. - Labs CBC & Chem 7: 01/28/23 09:14 01/26/23 07:41 Labs: Abnormal Lab Results - Last 24 Hours (Table) 01/27/23 01/27/23 01/28/23 Range/Units 16:21 20:10 06:15 RBC (3.80-5.40) m/uL Hgb (11.4-16.0) gm/dL Hct (34.0-46.0) % MCHC (31.0-37.0) g/dL RDW (11.5-15.5) % POC Glucose (mg/dL) 168 H 169 H 171 H (70-110) mg/dL 01/28/23 01/28/23 Range/Units 09:14 11:36 RBC 3.45 L (3.80-5.40) m/uL Hgb 9.3 L (11.4-16.0) gm/dL Hct 31.5 L (34.0-46.0) % MCHC 29.5 L (31.0-37.0) g/dL RDW 24.9 H (11.5-15.5) % POC Glucose (mg/dL) 183 H (70-110) mg/dL Assessment and Plan Assessment: Acute on chronic anemia, status post 3 units of PRBCs. Acute hypoxemic respiratory failure, likely secondary to acute diastolic CHF. Generalized weakness. Stage IIIB chronic kidney disease. History of chronic atrial fibrillation. Type 2 diabetes with diabetic nephropathy. History of CAD. History of COPD/asthma. Diabetic neuropathy. History of sick sinus syndrome, status post pacemaker implantation. History of L1 compression fracture. Plan: Plan dated 01/28/2023. The patient is seen today in room 355. Currently, she is on 2 L by nasal cannula. The patient is apparently declining endoscopy, for further evaluation of her GI bleed. Labs, x-rays, medications are all reviewed. Clinically, the patient appears to be relatively stable, and could be considered for possible discharge 8 hours. Labs, x-rays, and medications are all reviewed. The patient's overall prognosis remains guarded. The patient is to continue on iron supplementation. The patient also continues on Lasix. Time with Patient: Less than 30
[2023-01-28 13:29] VITALS: BMI 36.3
[2023-01-28 16:29] LABS: Glucose,Whole Blood 145 mg/dL (70-110)
[2023-01-28 20:07] LABS: Glucose,Whole Blood 198 mg/dL (70-110)
[2023-01-28] MEDS: TAMSULOSIN 0.4 MG CAP.ER.24H PO SCH (20:40)
[2023-01-28] MEDS: INSULIN DETEMIR (LEVEMIR) 100 UNIT/ML SYR SQ SCH (20:40)
[2023-01-29 06:03] LABS: Glucose,Whole Blood 165 mg/dL (70-110)
[2023-01-29] MEDS: PANTOPRAZOLE 40 MG TABLET PO SCH (06:31)
[2023-01-29] MEDS: INSULIN ASPART (NovoLOG) 100 UNIT/ML VIAL SQ SCH ×4 (06:32→20:56)
[2023-01-29 08:48] LABS: Anisocytosis Marked; Basophils % (A) 1 %; Eosinophils # (A) 0.2 k/uL (0-0.7); Eosinophils % (A) 2 %; HCT 33.8 % (34.0-46.0); HGB 10.2 gm/dL (11.4-16.0); Hypochromasia Marked; Lymphocytes # (A) 1.1 k/uL (1.0-4.8); Lymphocytes % (A) 13 %; MCHC 30.2 g/dL (31.0-37.0); MCV 89.5 fL (80.0-100.0); Macrocytosis Slight; Mean Platelet Volume 7.9; Microcytosis Slight; Monocytes # (A) 0.8 k/uL (0-1.0); Monocytes % (A) 10 %; Neutrophils # (A) 6.1 k/uL (1.3-7.7); Neutrophils % (A) 73 %; Platelet Count 369 k/uL (150-450); Poikilocytosis Marked; RBC 3.78 m/uL (3.80-5.40); RDW 24.4 % (11.5-15.5); WBC 8.4 k/uL (3.8-10.6)
[2023-01-29 09:01] LABS: ALT 17 U/L (4-34); AST 33 U/L (14-36); African American GFR (CKD) 76 (>60 ml/min/1.73 sqM); Albumin 3.3 g/dL (3.5-5.0); Alkaline Phosphatase 94 U/L (38-126); Anion Gap 8 mmol/L; Blood Urea Nitrogen 48 mg/dL (7-17); Calcium 9.5 mg/dL (8.4-10.2); Carbon Dioxide 34 mmol/L (22-30); Chloride 95 mmol/L (98-107); Glucose 138 mg/dL (74-99); Non-African American GFR(CKD) 66 (>60 ml/min/1.73 sqM); Potassium 4.5 mmol/L (3.5-5.1); Sodium 137 mmol/L (137-145); Total Bilirubin 0.6 mg/dL (0.2-1.3); Total Protein 5.9 g/dL (6.3-8.2)
[2023-01-29] MEDS: levETIRAcetam 500 MG TAB PO SCH ×3 (09:05→20:55)
[2023-01-29] MEDS: QUEtiapine 100 MG TAB PO SCH (09:05)
[2023-01-29] MEDS: FUROSEMIDE 20 MG TAB PO SCH (09:05)
[2023-01-29] MEDS: amLODIPine 5 MG TAB PO SCH (09:05)
[2023-01-29] MEDS: CALCIUM CARB-VIT D 500 MG-5 MCG TAB PO SCH (09:05)
[2023-01-29] MEDS: CHOLECALCIFEROL 125 MCG (5000 IU) TABLET PO SCH (09:05)
[2023-01-29] MEDS: SYMBICORT 80-4.5 MCG INHALER INHALATION SCH ×2 (09:36→20:13)
[2023-01-29] MEDS: IPRATROPIUM-ALBUTEROL 3 ML NEB INHALATION SCH ×2 (09:36→20:13)
--- NOTE | 2023-01-29 11:29 | CDI ---
Documentation Clarification Form Date: 01/29/2023 10:44:16 AM From: Radha Judd RN CCDS Phone: [phone] Admit Date: 01/20/2023 01:00:00 PM Patient Name: Zehra Montes Visit Number: [id number] Discharge Date: ATTENTION: The Clinical Documentation Specialists (CDI) and [facility] Coding Staff appreciate your assistance in clarifying documentation. Please respond to the clarification below the line at the bottom and electronically sign. The CDI & [facility] Coding staff will review the response and follow-up if needed. Please note: Queries are made part of the Legal Health Record. If you have any questions, please contact the author of this message via ITS. Dr. Vikram Zamarripa Septic Shock is documented H&P, 01/22, which may lack sufficient clinical evidence/support in the medical record. Additional clarification is requested. History/Risk Factors: 77-year-old female presents to the ED for weakness, occasional cough when questioned. No isolation area of weakness or confusion. Medical History: Atrial Fibrillation, Asthma, CAD, CHF, DM and Seizure disorder. 01/20, ED Report. Clinical Indicators: 01/20 VSS: B/P 118/54; HR 60; RR 18; SpO2 95% 2L nasal cannula; Temp 92.9 F Rectal 01/20 Labs: Wbc 15.6; Hgb 4.2; Neutrophils 12.70; Lactic acid 5.2; 01/20 Blood Culture: Coagulase Negative Staph Treatment: 01/20 -0.9ns IV 130cc/hr; 01/20 0.9ns IV bolus; 01/20 Azithromycin IVPB x1; 01/20 Ceftriaxone IVPB x1; 01/21 Zitrhomax po daily x 2 doses, 01/21 Ceftriaxone IVPB Q24 HR x 4 bags. 01/20 Ferric Sodium Glucanate IVPB x 1. Please clarify if Septic Shock is a valid diagnosis? [ ] Yes, Septic Shock is present as evidence by (additional clinical support): [ ] No, Septic Shock is ruled out [ ] Other (please specify diagnosis) [ ] Unable to determine (Template Last Revised: May 2020) MTDD
--- NOTE | 2023-01-29 11:30 | P.PN ---
Subjective Progress Note Date: 01/29/23 CHIEF COMPLAINT: Anemia HISTORY OF PRESENT ILLNESS: Patient admitted to the hospital with anemia. No evidence of active GI bleed. Patient denies any abdominal pain. Denies any blood in her stools. Patient refused colonoscopy. Vitals stable. Hemoglobin continues to trend upwards from 9.3 to 10.2. 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 PHYSICAL EXAM: VITAL SIGNS: Reviewed. GENERAL: Well-developed in no acute distress. ABDOMEN: Soft. Nondistended. Nontender. NEUROLOGIC: Alert and oriented. Cranial nerves II through XII grossly intact. ASSESSMENT: 1. Anemia. Hemoglobin stable. 2. History of chronic anemia PLAN: -Patient refused colonoscopy. Patient can have colonoscopy completed outpatient if she changes her mind Physician Ground Defence Officer note has been reviewed by physician. Signing provider agrees with the documented findings, assessment, and plan of care. Objective - Vital Signs Vital signs: Vital Signs Temp 97.6 F 01/29/23 07:53 Pulse 68 01/29/23 09:53 Resp 18 01/29/23 07:53 BP 158/84 01/29/23 07:53 Pulse Ox 99 01/29/23 07:53 FiO2 Intake & Output 01/28/23 01/29/23 01/29/23 18:59 06:59 18:59 Intake Total 300 Output Total 500 500 Balance -500 -500 300 Weight 99 kg Intake: Oral 300 Output: Urine 500 500 Other: Voiding Method External Catheter External Catheter # Voids 1 - Labs CBC & Chem 7: 01/29/23 08:30 01/29/23 08:30 Labs: Abnormal Lab Results - Last 24 Hours (Table) 01/28/23 01/28/23 01/28/23 Range/Units 11:36 16:17 20:06 RBC (3.80-5.40) m/uL Hgb (11.4-16.0) gm/dL Hct (34.0-46.0) % MCHC (31.0-37.0) g/dL RDW (11.5-15.5) % Chloride (98-107) mmol/L Carbon Dioxide (22-30) mmol/L BUN (7-17) mg/dL Glucose (74-99) mg/dL POC Glucose (mg/dL) 183 H 145 H 198 H (70-110) mg/dL Total Protein (6.3-8.2) g/dL Albumin (3.5-5.0) g/dL 01/29/23 01/29/23 01/29/23 Range/Units 06:02 08:30 08:30 RBC 3.78 L (3.80-5.40) m/uL Hgb 10.2 L (11.4-16.0) gm/dL Hct 33.8 L (34.0-46.0) % MCHC 30.2 L (31.0-37.0) g/dL RDW 24.4 H (11.5-15.5) % Chloride 95 L (98-107) mmol/L Carbon Dioxide 34 H (22-30) mmol/L BUN 48 H (7-17) mg/dL Glucose 138 H (74-99) mg/dL POC Glucose (mg/dL) 165 H (70-110) mg/dL Total Protein 5.9 L (6.3-8.2) g/dL Albumin 3.3 L (3.5-5.0) g/dL
--- NOTE | 2023-01-29 11:34 | P.PN ---
Subjective Progress Note Date: 01/29/23 Principal diagnosis: Pneumonia. Reevaluated today on 01/24/23, patient is on 2 L nasal cannula with O2 sat 95%, not in any distress. Received a total of 3 units of packed RBCs for acute blood loss anemia most likely the patient had ongoing GI blood losses. Seen by Dr. Chaidez on consultation for her anemia and he is recommending endoscopy labs today showed WBC count of 11.8 hemoglobin 8.7 and platelets are 320,000, basic metabolic profile is normal BUN is 52 creatinine 1.08 gradually improved compared to 2.0 on admission patient received only a few doses of furosemide s blanco admission. Reevaluated today on 01/25/23, patient continues to do well, patient denies any cough wheezing or shortness of breath, she received a total of 3 units of packed RBCs since admission, and an hemoglobin today is 8.7. Patient is being considered for endoscopy and I believe the patient is medically stable enough for endoscopy if is going to be done by Dr. Chaidez. Reevaluated today 01/26/23, patient is doing well, she is basically asymptomatic, denies any specific complaints. On 2 L with O2 sats of 96%. Denies any shortness of breath cough or wheezing. Hemoglobin today is 8.4., All in all the patient received a total of 3 units of packed RBCs since admission, and now the note from the surgeon on the case is recommending outpatient endoscopy although he was planning endoscopy when the patient is cleared from the medical perspective. Reevaluated today on 01/27/23 patient is doing great, basically asymptomatic, I discussed her condition today with Dr. Chaidez apparently the patient is refusing to have EGD or colonoscopy. She is refusing any endoscopy procedures. Her chest x-ray showed dramatic improvement compared to the chest x-ray on admission I have recommended yesterday that the patient remains on Lasix, 20 mg IV push daily, and I will transition this to oral Lasix. Patient's hemoglobin was 8.4 yesterday, he should is not requiring any further blood transfusion for some time, hence I believe the patient should be considered for discharge planning and follow-up with gastroenterology and possible endoscopy on outpatient basis. At this point at least patient is refusing to have endoscopy Progress note dated 01/28/2023. The patient is seen today in room 355. She continues on oxygen at 2 L by nasal cannula. She's not receiving any IV fluids. The patient is apparently refusing to have an EGD or colonoscopy. Her chest x-rays, are improved, and her oxygenation is improved as well. She continues on Lasix therapy. Labs today include a white count of 9.9, hemoglobin 9.3, hematocrit 31.5, and a normal platelet count. Glucose is 183. Blood cultures from January 20 are positive for coagulase negative staph. Yesterday's chest x-ray shows cardiomegaly, trace pleural effusions, and improved pulmonary vascular congestion. Progress note dated 01/29/2023. 77-year-old female seen today in room 632. The patient continues on oxygen, and 2 L. Saturations are excellent at 98%. Patient's not receiving any IV fluids. This patient was thought to have a GI bleed, and required blood transfusions, but apparently is refusing EGD/colonoscopy. Current laboratory data includes a white count 8.4, hemoglobin 10.2, hematocrit 33.8, and a normal platelet count. Sodium 137, potassium 4.5, chlorides 95, CO2 34, anion gap 8, BUN 48, and the creatinine is 0.85. Rest of the liver function tests were good. Objective - Vital Signs Vital signs: Vital Signs Temp 97.6 F 01/29/23 07:53 Pulse 68 01/29/23 09:53 Resp 18 01/29/23 07:53 BP 158/84 01/29/23 07:53 Pulse Ox 99 01/29/23 07:53 FiO2 Intake & Output 01/28/23 01/29/23 01/29/23 18:59 06:59 18:59 Intake Total 300 Output Total 500 500 Balance -500 -500 300 Weight 99 kg Intake: Oral 300 Output: Urine 500 500 Other: Voiding Method External Catheter External Catheter External Catheter # Voids 1 - Exam No acute distress, oriented 3. The patient continues on oxygen at 2 L. Saturations are 98-99%. HEENT examination is grossly unremarkable. Neck supple. Full range of motion. No adenopathy thyromegaly or neck vein distention. Cardiovascular examination reveals regular rhythm rate. S1-S2 normal. No S3 or S4. No discernible murmur noted. Heart rate 68 bpm. Heart sounds are distant. Lungs reveal clear breath sounds. Breath sounds are equal bilaterally. No adventitious lung sounds including wheezes rhonchi or crackles. 2 L saturation is 98%. Abdomen soft bowel sounds are heard. No masses or tenderness. Extremities are intact. No cyanosis clubbing or edema. Skin is without rash or lesion. Neurologic examination is brief but nonfocal. - Labs CBC & Chem 7: 01/29/23 08:30 01/29/23 08:30 Labs: Abnormal Lab Results - Last 24 Hours (Table) 01/28/23 01/28/23 01/28/23 Range/Units 11:36 16:17 20:06 RBC (3.80-5.40) m/uL Hgb (11.4-16.0) gm/dL Hct (34.0-46.0) % MCHC (31.0-37.0) g/dL RDW (11.5-15.5) % Chloride (98-107) mmol/L Carbon Dioxide (22-30) mmol/L BUN (7-17) mg/dL Glucose (74-99) mg/dL POC Glucose (mg/dL) 183 H 145 H 198 H (70-110) mg/dL Total Protein (6.3-8.2) g/dL Albumin (3.5-5.0) g/dL 01/29/23 01/29/23 01/29/23 Range/Units 06:02 08:30 08:30 RBC 3.78 L (3.80-5.40) m/uL Hgb 10.2 L (11.4-16.0) gm/dL Hct 33.8 L (34.0-46.0) % MCHC 30.2 L (31.0-37.0) g/dL RDW 24.4 H (11.5-15.5) % Chloride 95 L (98-107) mmol/L Carbon Dioxide 34 H (22-30) mmol/L BUN 48 H (7-17) mg/dL Glucose 138 H (74-99) mg/dL POC Glucose (mg/dL) 165 H (70-110) mg/dL Total Protein 5.9 L (6.3-8.2) g/dL Albumin 3.3 L (3.5-5.0) g/dL Assessment and Plan Assessment: Acute on chronic anemia, status post 3 units of PRBCs. Acute hypoxemic respiratory failure, likely secondary to acute diastolic CHF. Generalized weakness. Stage IIIB chronic kidney disease. History of chronic atrial fibrillation. Type 2 diabetes with diabetic nephropathy. History of CAD. History of COPD/asthma. Diabetic neuropathy. History of sick sinus syndrome, status post pacemaker implantation. History of L1 compression fracture. Plan: Plan dated 01/28/2023. The patient is seen today in room 355. Currently, she is on 2 L by nasal cannula. The patient is apparently declining endoscopy, for further evaluation of her GI bleed. Labs, x-rays, medications are all reviewed. Clinically, the patient appears to be relatively stable, and could be considered for possible discharge 8 hours. Labs, x-rays, and medications are all reviewed. The patient's overall prognosis remains guarded. The patient is to continue on iron supplementation. The patient also continues on Lasix. Plan dated 01/29/2023. The patient is seen today in room 632. She continues on oxygen at 2 L. She's not receiving any IV fluids. The patient is declining endoscopy, for further evaluation of her GI bleed. Labs, x-rays, medications are reviewed. C linically, the patient appears to be relatively stable. Respiratory status, and cardiovascular status, although stable. The patient should continue on iron supplementation. We will continue to follow make recommendations along the way. Prognosis is guarded. Time with Patient: Less than 30
[2023-01-29 12:04] LABS: Glucose,Whole Blood 152 mg/dL (70-110)
[2023-01-29 17:35] LABS: Glucose,Whole Blood 144 mg/dL (70-110)
[2023-01-29 20:20] LABS: Glucose,Whole Blood 190 mg/dL (70-110)
[2023-01-29] MEDS: TAMSULOSIN 0.4 MG CAP.ER.24H PO SCH (20:55)
[2023-01-29] MEDS: INSULIN DETEMIR (LEVEMIR) 100 UNIT/ML SYR SQ SCH (20:56)
[2023-01-30] MEDS: PANTOPRAZOLE 40 MG TABLET PO SCH (05:51)
[2023-01-30 05:55] LABS: Glucose,Whole Blood 93 mg/dL (70-110)
[2023-01-30] MEDS: INSULIN ASPART (NovoLOG) 100 UNIT/ML VIAL SQ SCH ×4 (06:20→21:17)
[2023-01-30] MEDS: IPRATROPIUM-ALBUTEROL 3 ML NEB INHALATION SCH ×2 (08:42→20:19)
[2023-01-30] MEDS: SYMBICORT 80-4.5 MCG INHALER INHALATION SCH ×2 (08:42→20:19)
[2023-01-30] MEDS: FUROSEMIDE 20 MG TAB PO SCH (09:24)
[2023-01-30] MEDS: amLODIPine 5 MG TAB PO SCH (09:24)
[2023-01-30] MEDS: levETIRAcetam 500 MG TAB PO SCH ×3 (09:24→21:17)
[2023-01-30] MEDS: CALCIUM CARB-VIT D 500 MG-5 MCG TAB PO SCH (09:24)
[2023-01-30] MEDS: CHOLECALCIFEROL 125 MCG (5000 IU) TABLET PO SCH (09:24)
[2023-01-30] MEDS: QUEtiapine 100 MG TAB PO SCH (09:24)
--- NOTE | 2023-01-30 10:50 | PN ---
PROGRESS NOTE ADDENDUM: Septic shock is ruled out. MMODL / IJN: [id number] /
--- NOTE | 2023-01-30 11:07 | P.PN ---
Subjective Progress Note Date: 01/30/23 CHIEF COMPLAINT: Anemia HISTORY OF PRESENT ILLNESS: Patient admitted to the hospital with anemia. No evidence of active GI bleed. Patient denies any abdominal pain. Denies any blood in her stools. Patient refused colonoscopy. Vitals stable. HGb stable at 10.2. manager pediatric working on ECF placement. PHYSICAL EXAM: VITAL SIGNS: Reviewed. GENERAL: Well-developed in no acute distress. ABDOMEN: Soft. Nondistended. Nontender. NEUROLOGIC: Alert and oriented. Cranial nerves II through XII grossly intact. ASSESSMENT: 1. Anemia. Hemoglobin stable. 2. History of chronic anemia PLAN: -Patient refused colonoscopy. Patient can have colonoscopy completed outpatient if she changes her mind -Patient can be discharged from surgical standpoint Physician [employer] Man note has been reviewed by physician. Signing provider agrees with the documented findings, assessment, and plan of care. Objective - Vital Signs Vital signs: Vital Signs Temp 97.4 F L 01/30/23 08:00 Pulse 67 01/30/23 08:55 Resp 16 01/30/23 08:00 BP 160/77 01/30/23 08:00 Pulse Ox 98 01/30/23 08:56 FiO2 Intake & Output 01/29/23 01/30/23 01/30/23 18:59 06:59 18:59 Intake Total 418 180 Output Total 550 Balance 418 -550 180 Intake: Oral 418 180 Output: Urine 550 Other: Voiding Method External Catheter External Catheter # Voids 250 # Bowel Movements 0 - Labs CBC & Chem 7: 01/29/23 08:30 01/29/23 08:30 Labs: Abnormal Lab Results - Last 24 Hours (Table) 01/29/23 01/29/23 01/29/23 Range/Units 12:02 17:34 20:19 POC Glucose (mg/dL) 152 H 144 H 190 H (70-110) mg/dL
--- NOTE | 2023-01-30 12:41 | P.PN ---
Subjective Progress Note Date: 01/30/23 77-year-old female patient, multiple medical problems and comorbidities, comes from home with generalized weakness. Significant blood work abnormalities and the patient was found to have an initial hemoglobin of 4.2, hemoglobin was repeated at 4.6. The white cycles of 15.6. MCV level is at 72 consistent with iron deficiency anemia. Platelet counts are also low at 124. Also, the patient normal coagulation profile, sodium levels of 136 with a potassium level of 5.3, BUN is 65 and a creatinine of 2.01. Troponins are negative. LFTs are normal. Thyroid function tests are normal. Lactic acid level is at 5.2. Covid 19 testing was negative and the patient is currently on 2 L of oxygen by nasal c annula. Chest x-ray shows small bites pleural effusion along with increased interstitial markings bilaterally. The patient is hypothermic. The patient has been hospitalized on multiple occasions. She was in the hospital back in October 2022 feeling weak and at that time the patient was found to be anemic again. CAT scan of the abdomen was done that showed diverticulosis. Her previous EGD was done back in 2019. recent colonoscopies. Patient denies having any bright red blood per rectum. No melanotic stools. No hematemesis. Abdominal pain. No nausea and emesis. She has had previous blood work that showed iron deficiency. She is on anticoagulation with Eliquis. The patient is known to have multiple medical problems and comorbidities. The patient has CAD with previous stent, history of A. fib, hypertension, history of benign brain mass, peripheral neuropathy, sick sinus syndrome and the patient is a pacemaker in place and the with that the patient has chronic stage III kidney disease. The patient is blind in her left eye. The computed tomography scan of the brain was repeated during this current admission showed no acute abnormalities. There is stable postsurgical changes along with encephalomalacia involving the right parietal lobe. Her previous echo cardiac exam showed a preserved LV function. Previous CAT scan of the chest showed bilateral pleural effusion and interstitial edema along with extensive atherosclerosis. Patient was reevaluated today 01/21/2023, patient is on room air, O2 sats is 98%, feeling better today compared to yesterday, breathing easier, nonetheless she feels generally weak. Continues to have leukocytosis with WBC count of 18.7 hemoglobin is 7.6, patient did receive 2 units of packed RBCs since admission, patient presented with a hemoglobin of 4.2 initially on admission yesterday. BNP level on admission was over 15 800 , patient is not receiving any diuretics at present. He is receiving bronchodilators and antibiotics. On admission the patient had a BUN of 65 and creatinine of 2.01 her baseline creatinine is in the range of 1.29. Chest x-ray this morning is showing significant improvement compared to the chest x-ray on admission. The patient is seen today 01/22/2023 in follow-up on the selective care unit. She is currently sitting up in a chair. Awake and alert in no acute distress. Maintaining O2 saturation in the 90s on room air. She is status post 2 units of packed red blood this admission. Current hemoglobin 7.0. Platelets 257. White count 22.2. Sodium 136. Potassium 5.0. Bicarb 22. BUN 62. Creatinine 1.68. Glucose 108. Blood cultures reveal no growth. She is continued on DuoNeb inhalations, Symbicort. Antibiotics in the form of ceftriaxone. Iron replacement therapy. The patient is seen today 01/30/2023 in follow-up on the regular medical floor. She is currently sitting up in bed. Awake and alert in no acute distress. She is maintaining O2 saturations in the upper 90s on 2 L/m per nasal cannula. She has declined a colonoscopy at this time. She is status post 3 units of packed red blood cells this admission. Most recent hemoglobin 10.2. Blood cultures revealed no growth. She had been continued on Symbicort and DuoNeb inhalations. Remains on oral diuretics. Objective - Vital Signs Vital signs: Vital Signs Temp 97.4 F L 01/30/23 08:00 Pulse 67 01/30/23 08:55 Resp 16 01/30/23 08:00 BP 160/77 01/30/23 08:00 Pulse Ox 98 01/30/23 08:56 FiO2 Intake & Output 01/29/23 01/30/23 01/30/23 18:59 06:59 18:59 Intake Total 418 180 Output Total 550 Balance 418 -550 180 Intake: Oral 418 180 Output: Urine 550 Other: Voiding Method External Catheter External Catheter External Catheter # Voids 250 # Bowel Movements 0 - Exam GENERAL EXAM: Alert, 77-year-old female, resting in bed, on 2 L nasal cannula, comfortable in no apparent distress. HEAD: Normocephalic. EYES: Normal reaction of pupils, equal size. NOSE: Clear with pink turbinates. THROAT: No erythema or exudates. NECK: No masses, no JVD. CHEST: No chest wall deformity. LUNGS: Equal air entry with no crackles, wheeze, rhonchi or dullness. CVS: S1 and S2 normal with no audible murmur, regular rhythm. ABDOMEN: No hepatosplenomegaly, normal bowel sounds, no guarding or rigidity. SPINE: No scoliosis or deformity SKIN: No rashes CENTRAL NERVOUS SYSTEM: No focal deficits, tone is normal in all 4 extremities. EXTREMITIES: There is 1+ peripheral edema. No clubbing, no cyanosis. Peripheral pulses are intact. - Labs CBC & Chem 7: 01/29/23 08:30 01/29/23 08:30 Labs: Abnormal Lab Results - Last 24 Hours (Table) 01/29/23 01/29/23 Range/Units 17:34 20:19 POC Glucose (mg/dL) 144 H 190 H (70-110) mg/dL Assessment and Plan Assessment: Acute on chronic anemia most likely this is a blood loss anemia, patient declined colonoscopy this admission. Status post 3 units of packed red blood cells. Current hemoglobin 10.2 Acute hypoxic respiratory failure, with bilateral pleural effusions secondary to diastolic congestive heart failure Generalized weakness, multifactorial Chronic kidney disease stage IIIB Chronic atrial fibrillation, maintained on eliquis Type 2 diabetes with diabetic nephropathy Underlying coronary artery disease Underlying COPD/asthma Peripheral neuropathy/diabetic neuropathy Sick sinus syndrome and previous pacemaker implantation History of L1 compression fracture Profound hypothermia on present with profound anemia, resolved Plan: The patient was seen and evaluated Medications reviewed Continued on Symbicort, DuoNeb inhalation Declined colonoscopy this admission Received 3 units of packed red blood cells, recent hemoglobin 10.2 Plan is for subacute rehabilitation post discharge I have personally seen and examined the patient, performed the documentation and the assessment and plan as written. Number of minutes spent on the visit: 10.
[2023-01-30 12:56] LABS: Glucose,Whole Blood 169 mg/dL (70-110)
[2023-01-30 17:50] LABS: Glucose,Whole Blood 151 mg/dL (70-110)
--- NOTE | 2023-01-30 19:47 | DS ---
DISCHARGE SUMMARY DISCHARGE DIAGNOSES: 1. Acute on chronic anemia. 2. Gastrointestinal bleeding. 3. Chronic obstructive pulmonary disease. 4. Congestive heart failure. 5. Generalized weakness. 6. Oxygen-dependent chronic obstructive pulmonary disease. She wears oxygen at night. She takes breathing treatments during the day. Treated for multifocal pneumonia. DISCHARGE MEDICATIONS: 1. Flomax 0.4 mg daily. 2. Lasix 20 mg daily. 3. Protonix 40 mg at night. 4. Trelegy 200 mcg 1 puff a day. 5. Ecotrin 81 daily. 6. Norvasc 5 mg daily. 7. Calcium carbonate vitamin D daily. 8. Keppra 500 t.i.d. for seizures. 9. Seroquel 100 mg at night. 10.Soliqua 100/33 of 15 units at night. 11.Ventolin HFA 2 puffs q.6h p.r.n. 12.DuoNeb updrafts. She is to take b.i.d. long-term. 13.Aspirin 81 mg daily. She has generalized weakness, fatigue. She is going to go to rehab for a week or 2 up in to get some stronger. Make sure she stays on her oxygen at night and her breathing treatments twice a day. Continue with PT, OT for generalized weakness. Keep her on medicine for CHF, COPD, and do a CBC once a week to make sure she is not bleeding anymore. Her bleeding stopped after Eliquis. She refused colonoscopy and EGD in the hospital. Prognosis guarded. Check CBC weekly. MMODL / IJN: [id number] /
[2023-01-30 20:25] LABS: Glucose,Whole Blood 177 mg/dL (70-110)
[2023-01-30] MEDS: TAMSULOSIN 0.4 MG CAP.ER.24H PO SCH (21:16)
--- NOTE | 2023-01-30 21:16 | PN ---
PROGRESS NOTE DATE OF SERVICE: 01/29/2023 SUBJECTIVE: The patient says she is ready to go home. She wants to go home. Her hemoglobin is more stable now. She has home nursing that comes to help her and physical therapy and occupational therapy that will come and help her at the house. OBJECTIVE: VITAL SIGNS: Appear to be stable. Vital signs are reviewed. Temperature 97.4, blood pressure 160/77, O2 of 97% on 2 L, pulse 62, respiratory rate 16 to 18. CARDIOVASCULAR: S1, S2. LUNGS: Clear. GI: Soft. NEUROLOGIC: She is alert and oriented x3. HEMATOLOGY: Negative Homans. PSYCH: Fair mood and affect. get her out of bed, but she says they can take care of her at home that way. She wants to go home. Does not want to go to the rehab center. Labs showed hemoglobin is stable at 10.2. She will possibly be able to be discharged home tomorrow. CHELSEA / MOLLYN: [id number] /
[2023-01-30] MEDS: INSULIN DETEMIR (LEVEMIR) 100 UNIT/ML SYR SQ SCH (21:17)
[2023-01-31] MEDS: PANTOPRAZOLE 40 MG TABLET PO SCH (06:03)
[2023-01-31 06:05] LABS: Glucose,Whole Blood 115 mg/dL (70-110)
[2023-01-31] MEDS: INSULIN ASPART (NovoLOG) 100 UNIT/ML VIAL SQ SCH (06:11)
[2023-01-31 08:04] VITALS: BP 142/72; RESP 16; TEMP 97.8
[2023-01-31] MEDS: IPRATROPIUM-ALBUTEROL 3 ML NEB INHALATION SCH (08:25)
[2023-01-31] MEDS: SYMBICORT 80-4.5 MCG INHALER INHALATION SCH (08:25)
[2023-01-31 08:51] VITALS: PULSE 64
--- NOTE | 2023-01-31 09:06 | P.PN ---
Subjective Progress Note Date: 01/31/23 77-year-old female patient, multiple medical problems and comorbidities, comes from home with generalized weakness. Significant blood work abnormalities and the patient was found to have an initial hemoglobin of 4.2, hemoglobin was repeated at 4.6. The white cycles of 15.6. MCV level is at 72 consistent with iron deficiency anemia. Platelet counts are also low at 124. Also, the patient normal coagulation profile, sodium levels of 136 with a potassium level of 5.3, BUN is 65 and a creatinine of 2.01. Troponins are negative. LFTs are normal. Thyroid function tests are normal. Lactic acid level is at 5.2. Covid 19 testing was negative and the patient is currently on 2 L of oxygen by nasal c annula. Chest x-ray shows small bites pleural effusion along with increased interstitial markings bilaterally. The patient is hypothermic. The patient has been hospitalized on multiple occasions. She was in the hospital back in October 2022 feeling weak and at that time the patient was found to be anemic again. CAT scan of the abdomen was done that showed diverticulosis. Her previous EGD was done back in 2019. recent colonoscopies. Patient denies having any bright red blood per rectum. No melanotic stools. No hematemesis. Abdominal pain. No nausea and emesis. She has had previous blood work that showed iron deficiency. She is on anticoagulation with Eliquis. The patient is known to have multiple medical problems and comorbidities. The patient has CAD with previous stent, history of A. fib, hypertension, history of benign brain mass, peripheral neuropathy, sick sinus syndrome and the patient is a pacemaker in place and the with that the patient has chronic stage III kidney disease. The patient is blind in her left eye. The computed tomography scan of the brain was repeated during this current admission showed no acute abnormalities. There is stable postsurgical changes along with encephalomalacia involving the right parietal lobe. Her previous echo cardiac exam showed a preserved LV function. Previous CAT scan of the chest showed bilateral pleural effusion and interstitial edema along with extensive atherosclerosis. Patient was reevaluated today 01/21/2023, patient is on room air, O2 sats is 98%, feeling better today compared to yesterday, breathing easier, nonetheless she feels generally weak. Continues to have leukocytosis with WBC count of 18.7 hemoglobin is 7.6, patient did receive 2 units of packed RBCs since admission, patient presented with a hemoglobin of 4.2 initially on admission yesterday. BNP level on admission was over 15 800 , patient is not receiving any diuretics at present. He is receiving bronchodilators and antibiotics. On admission the patient had a BUN of 65 and creatinine of 2.01 her baseline creatinine is in the range of 1.29. Chest x-ray this morning is showing significant improvement compared to the chest x-ray on admission. The patient is seen today 01/22/2023 in follow-up on the selective care unit. She is currently sitting up in a chair. Awake and alert in no acute distress. Maintaining O2 saturation in the 90s on room air. She is status post 2 units of packed red blood this admission. Current hemoglobin 7.0. Platelets 257. White count 22.2. Sodium 136. Potassium 5.0. Bicarb 22. BUN 62. Creatinine 1.68. Glucose 108. Blood cultures reveal no growth. She is continued on DuoNeb inhalations, Symbicort. Antibiotics in the form of ceftriaxone. Iron replacement therapy. The patient is seen today 01/30/2023 in follow-up on the regular medical floor. She is currently sitting up in bed. Awake and alert in no acute distress. She is maintaining O2 saturations in the upper 90s on 2 L/m per nasal cannula. She has declined a colonoscopy at this time. She is status post 3 units of packed red blood cells this admission. Most recent hemoglobin 10.2. Blood cultures revealed no growth. She had been continued on Symbicort and DuoNeb inhalations. Remains on oral diuretics. The patient is seen today 01/31/2023 in follow-up on the regular medical floor. She is awake and alert in no acute distress. Maintaining O2 saturations up to 100% on 2 L/m per nasal cannula. No IV fluids. Resting comfortably in bed. No worsening shortness of breath, cough or congestion. Glucose 115. She is continued on Symbicort, DuoNeb inhalations. Oral diuretics. Maintained on Levemir and NovoLog sliding scale. Tolerating a consistent carbohydrate diet. Objective - Vital Signs Vital signs: Vital Signs Temp 97.8 F 01/31/23 07:45 Pulse 64 01/31/23 08:41 Resp 16 01/31/23 07:45 BP 142/72 01/31/23 07:45 Pulse Ox 99 01/31/23 08:28 FiO2 Intake & Output 01/30/23 01/31/23 01/31/23 18:59 06:59 18:59 Intake Total 540 Output Total 700 1600 Balance -160 -1600 Intake: Oral 540 Output: Urine 700 1600 Other: Voiding Method External Catheter External Catheter - Exam GENERAL EXAM: Alert, very pleasant 77-year-old female, on 2 L nasal cannula, comfortable in no apparent distress. HEAD: Normocephalic. EYES: Normal reaction of pupils, equal size. NOSE: Clear with pink turbinates. THROAT: No erythema or exudates. NECK: No masses, no JVD. CHEST: No chest wall deformity. LUNGS: Equal air entry with no crackles, wheeze, rhonchi or dullness. CVS: S1 and S2 normal with no audible murmur, regular rhythm. ABDOMEN: No hepatosplenomegaly, normal bowel sounds, no guarding or rigidity. SPINE: No scoliosis or deformity SKIN: No rashes CENTRAL NERVOUS SYSTEM: No focal deficits, tone is normal in all 4 extremities. EXTREMITIES: There is 1+ peripheral edema. No clubbing, no cyanosis. Peripheral pulses are intact. - Labs CBC & Chem 7: 01/29/23 08:30 01/29/23 08:30 Labs: Abnormal Lab Results - Last 24 Hours (Table) 01/30/23 01/30/23 01/30/23 Range/Units 12:52 17:42 20:24 POC Glucose (mg/dL) 169 H 151 H 177 H (70-110) mg/dL 01/31/23 Range/Units 06:04 POC Glucose (mg/dL) 115 H (70-110) mg/dL Assessment and Plan Assessment: Acute on chronic anemia most likely this is a blood loss anemia, patient declined colonoscopy this admission. Status post 3 units of packed red blood cells. Current hemoglobin 10.2 Acute hypoxic respiratory failure, with bilateral pleural effusions secondary to diastolic congestive heart failure Generalized weakness, multifactorial Chronic kidney disease stage IIIB Chronic atrial fibrillation, maintained on eliquis Type 2 diabetes with diabetic nephropathy Underlying coronary artery disease Underlying COPD/asthma Peripheral neuropathy/diabetic neuropathy Sick sinus syndrome and previous pacemaker implantation History of L1 compression fracture Profound hypothermia on present with profound anemia, resolved Plan: The patient was seen and evaluated Medications reviewed Continued on Symbicort, DuoNeb inhalation Maintaining good O2 saturations up to 100% on 2 L nasal cannula Titrate down the FiO2 as tolerated Increase her activity as tolerated Plan is for subacute rehabilitation post discharge I have personally seen and examined the patient, performed the documentation and the assessment and plan as written. Number of minutes spent on the visit: 10.
[2023-01-31] MEDS: CALCIUM CARB-VIT D 500 MG-5 MCG TAB PO SCH (09:28)
[2023-01-31] MEDS: QUEtiapine 100 MG TAB PO SCH (09:28)
[2023-01-31] MEDS: CHOLECALCIFEROL 125 MCG (5000 IU) TABLET PO SCH (09:28)
[2023-01-31] MEDS: amLODIPine 5 MG TAB PO SCH (09:28)
[2023-01-31] MEDS: FUROSEMIDE 20 MG TAB PO SCH (09:28)
[2023-01-31] MEDS: levETIRAcetam 500 MG TAB PO SCH (09:28)
--- NOTE | 2023-02-04 09:03 | CDI ---
Documentation Clarification Form Date: 02/04/2023 08:50:11 AM From: Lauren Valentin Admit Date: 01/20/2023 01:00:00 PM Patient Name: Zehra Montes Visit Number: [id number] Discharge Date: 01/31/2023 10:33:00 AM ATTENTION: The Clinical Documentation Specialists (CDI) and [facility] Coding Staff appreciate your assistance in clarifying documentation. Please respond to the clarification below the line at the bottom and electronically sign. The CDI & [facility] Coding staff will review the response and follow-up if needed. Please note: Queries are made part of the Legal Health Record. If you have any questions, please contact the author of this message via ITS. Dr. Vikram Zamarripa Gastrointestinal bleeding is documented in DCS. For each diagnosis, documentation must be clear to determine if the condition was present at the time of the patients inpatient admission or developed during the hospital stay. Additional clarification regarding the [insert diagnosis] is requested. History/Risk Factors: Patient with anemia on admit, weakness Clinical Indicators: Hemoglobin 4.2 on admit Treatment: Transfusion RBC's Definition of Present on Admission (POA): A diagnosis present at the time the order for admission to inpatient status was written. Please clarify if the Gastrointestinal bleed was POA [ ] Y = Yes, the condition was present at the time of the order for inpatient admission. [ ] N = No, the condition was not present at the time of the order for inpatient admission. [ ] W = Clinically undetermined if the condition was present at the time of the order for inpatient admission. MTDD
--- NOTE | 2023-02-09 19:22 | PN ---
PROGRESS NOTE GI bleed present on admission. MMODL / IJN: [id number] /
== END 2023-01-31 10:33 | DRG 377 ==
LOC: EC 10:46 → 3SCARD 13:00 → 2SICU 14:25 → 3SCARD 19:25 → 2SICU 20:06 → 3SCARD 20:37 → 6NMEDSUR 01-29 07:44
PROVIDERS: ADMIT Family Medicine; ATTEND Family Medicine
PROC: 30233N1 Transfusion of Nonautologous Red Blood Cells into Peripheral Vein, Percutaneous Approach (ICD-10-PCS; principal; 2023-01-20)
DX: K92.2 Gastrointestinal hemorrhage, unspecified (principal); I50.31 Acute diastolic (congestive) heart failure; J96.01 Acute respiratory failure with hypoxia; D62 Acute posthemorrhagic anemia; I13.0 Hypertensive heart and chronic kidney disease with heart failure and stage 1 through stage 4 chronic kidney disease, or unspecified chronic kidney disease; M48.56XA Collapsed vertebra, not elsewhere classified, lumbar region, initial encounter for fracture; E87.20 Acidosis, unspecified; N39.0 Urinary tract infection, site not specified; E11.22 Type 2 diabetes mellitus with diabetic chronic kidney disease; E11.42 Type 2 diabetes mellitus with diabetic polyneuropathy; E86.0 Dehydration; F32.A Depression, unspecified; F41.9 Anxiety disorder, unspecified; G93.89 Other specified disorders of brain; H54.62 Unqualified visual loss, left eye, normal vision right eye; G40.909 Epilepsy, unspecified, not intractable, without status epilepticus; J44.9 Chronic obstructive pulmonary disease, unspecified; T68.XXXA Hypothermia, initial encounter; I25.10 Atherosclerotic heart disease of native coronary artery without angina pectoris; N18.32 Chronic kidney disease, stage 3b; I95.1 Orthostatic hypotension; I48.0 Paroxysmal atrial fibrillation; D63.1 Anemia in chronic kidney disease; Z99.81 Dependence on supplemental oxygen; I49.5 Sick sinus syndrome; Z95.0 Presence of cardiac pacemaker; Z87.440 Personal history of urinary (tract) infections; Z85.828 Personal history of other malignant neoplasm of skin; Z11.52 Encounter for screening for COVID-19; M19.90 Unspecified osteoarthritis, unspecified site; Z79.01 Long term (current) use of anticoagulants; Z79.4 Long term (current) use of insulin; Z79.899 Other long term (current) drug therapy; Z94.7 Corneal transplant status; Z91.040 Latex allergy status; Z80.8 Family history of malignant neoplasm of other organs or systems; Z86.73 Personal history of transient ischemic attack (TIA), and cerebral infarction without residual deficits; Z87.11 Personal history of peptic ulcer disease; Z95.5 Presence of coronary angioplasty implant and graft
CPT/HCPCS: 36415; 36430; 51702; 70450; 71045; 71046; 80048; 80053; 81001; 82607; 82728; 82746; 83010; 83036; 83540; 83550; 83605; 83615; 83735; 83880; 83883; 84145; 84165; 84443; 84484; 85025; 85027; 85045; 85610; 85652; 85730; 86038; 86334; 86431; 86850; 86900; 86901; 86920; 87040; 87449; 87636; 93005; 94640; 94760; 96361; 96365; 96367; 96375; 99291

== ENCOUNTER 2023-03-18 12:48 | Observation (INO) | payer MEDICARE ==
[2023-03-18] MEDS ORDERED: SODIUM CHLORIDE 0.9% 500 ML 500 ML IV STA (13:29)
--- NOTE | 2023-03-18 13:48 | ED ---
General Adult HPI - General Chief complaint: Weakness Stated complaint: Weakness Time Seen by Provider: 03/18/23 13:00 Source: patient, EMS, RN notes reviewed, old records reviewed Mode of arrival: EMS Limitations: no limitations - History of Present Illness Initial comments: This is a 77-year-old female who presents to the emergency department complain ing of generalized weakness. Patient states this started 3 days ago. Patient states he got progressively worse and now she can only stand when she does she shaking so much she can't walk. Patient denies any fever chills or cough. Patient denies any chest pain difficulty breathing shortest breath per patient denies any abdominal pain patient denies nausea vomiting diarrhea. Patient denies any dysuria hematuria urinary frequency. Patient denies any neck or back pain - Related Data Home Medications Medication Instructions Recorded Confirmed Pantoprazole [Protonix] 40 mg PO DAILY 12/19/19 03/18/23 Insulin Glargine/Lixisenatide 15 units SQ HS 10/12/21 03/18/23 [Soliqua 100 Unit-33 Mcg/ml Pen] Albuterol Sulfate [Ventolin HFA] 2 puff INHALATION RT-Q6H PRN 05/29/22 03/18/23 Aspirin EC [Ecotrin Low Dose] 81 mg PO DAILY 05/29/22 03/18/23 Fluticasone/Umeclidin/Vilanter 1 puff INHALATION RT-DAILY 05/29/22 03/18/23 [Trelegy Ellipta 200-62.5-25] Acetaminophen Tab [Tylenol] 500 - 1,000 mg PO Q6H PRN 10/11/22 03/18/23 Cholecalciferol [Vitamin D3 (125 250 mcg PO DAILY 10/11/22 03/18/23 Mcg = 5000 Iu)] levETIRAcetam [Keppra] 500 mg PO TID 10/11/22 03/18/23 Ipratropium-Albuterol Nebulize 3 ml INHALATION RT-Q6H PRN 01/20/23 03/18/23 [Duoneb 0.5 mg-3 mg/3 ml Soln] Calcium Carbonate [Calcium] 600 mg PO DAILY 03/18/23 03/18/23 Ferrous Sulfate [Feosol] 325 mg PO DAILY 03/18/23 03/18/23 QUEtiapine [SEROquel] 75 mg PO HS 03/18/23 03/18/23 Tamsulosin [Flomax] 0.4 mg PO DAILY 03/18/23 03/18/23 prednisoLONE ACETATE 1% OPHTH 1 drop BOTH EYES SUMOWEFR 03/18/23 03/18/23 [Pred Forte 1%] Previous Rx's Medication Instructions Recorded amLODIPine [Norvasc] 5 mg PO DAILY tab 06/29/22 Furosemide [Lasix] 20 mg PO DAILY 90 Days #90 tab 01/30/23 Allergies Allergy/AdvReac Type Severity Reaction Status Date / Time Latex, Natural Rubber Allergy Itching Verified 03/18/23 13:55 sulfamethoxazole Allergy Rash/Hives Verified 03/18/23 13:55 [From Bactrim] trimethoprim [From Bactrim] Allergy Rash/Hives Verified 03/18/23 13:55 Review of Systems ROS Statement: Those systems with pertinent positive or pertinent negative responses have been documented in the HPI. ROS Other: All systems not noted in ROS Statement are negative. Past Medical History Past Medical History: Atrial Fibrillation, Asthma, Coronary Artery Disease (CAD), Cancer, Heart Failure, CVA/TIA, Diabetes Mellitus, Eye Disorder, Hypertension, Osteoarthritis (OA), Renal Disease, Seizure Disorder Additional Past Medical History / Comment(s): Brain mass/fall with intracranial bleed/hematome-surgery at [facility], seizure after brain surgery, paroxysmal Afib, DM type II, neuropathy bilateral feet, orthostatic hypotension, SSS with pacemaker, L1 compression fx, CKD stage III, blind in L eye, UTIs, lower GI bleed, gastritis, gastric erosion, CDiff colitis, skin cancer with removals, past L arm fracture, past R arm fracture x2. History of Any Multi-Drug Resistant Organisms: MRSA Date of last positivie culture/infection: 01/26/19 MDRO Source:: URINE Past Surgical History: Cholecystectomy, Heart Catheterization, Heart Jordyn terization With Stent, Hysterectomy, Pacemaker Additional Past Surgical History / Comment(s): Evacuation of intracranial hematoma and ressection of hemorrhagic mass, pacemaker 2016, PCI with stent 06/06/18, EGD/colonoscopy, R eye corneal implant/cataract removal, EGD 06/2018, colonoscopy, skin cancer removal. Past Anesthesia/Blood Transfusion Reactions: No Reported Reaction Additional Past Anesthesia/Blood Transfusion Reaction / Comment(s): . Date of Last Stent Placement:: 06/06/18 Type of Cardiac Device: Permanent Pacemaker Device Placement Date:: 04/2016 Past Psychological History: Anxiety, Depression Smoking Status: Never smoker Past Alcohol Use History: None Reported Past Drug Use History: None Reported - Past Family History Mother Family Medical History: Cancer, COPD, Hypertension Additional Family Medical History / Comment(s): Mother had bone cancer. Father Family Medical History: Cancer, Hypertension Additional Family Medical History / Comment(s): Father had skin cancer. General Exam - General Exam Comments Initial Comments: GENERAL: Patient is well-developed and well-nourished. Patient is nontoxic and well- hydrated and is in no acute distress. ENT: Neck is soft and supple. No significant lymphadenopathy is noted. Oropharynx is clear. Moist mucous membranes. Neck has full range of motion without eliciting any pain. EYES: The sclera were anicteric and conjunctiva were pink and moist. Extraocular movements were intact and pupils were equal round and reactive to light. Eyelids were unremarkable. PULMONARY: Unlabored respirations. Good breath sounds bilaterally. No audible rales rhonchi or wheezing was noted. CARDIOVASCULAR: There is a regular rate and rhythm without any murmurs gallops or rubs. ABDOMEN: Soft and nontender with normal bowel sounds. SKIN: Skin is clear with no lesions or rashes and otherwise unremarkable. NEUROLOGIC: Patient is alert and oriented x3. Cranial nerves II through XII are grossly intact. Motor and sensory are also intact. Normal speech, volume and content. Symmetrical smile. MUSCULOSKELETAL: Normal extremities with adequate strength and full range of motion. No lower extremity swelling or edema. No calf tenderness. LYMPHATICS: No significant lymphadenopathy is noted PSYCHIATRIC: Normal psychiatric evaluation. Limitations: no limitations Course Vital Signs 03/18/23 03/18/23 12:50 15:07 Temperature 97.2 F L Pulse Rate 62 60 Respiratory 18 18 Rate Blood Pressure 113/64 143/51 O2 Sat by Pulse 94 L 94 L Oximetry Medical Decision Making - Medical Decision Making EKG is interpreted by myself. EKG shows a paced rhythm at 60 bpm QRS is 207 QT intervals 535 QTC is 535. Was pt. sent in by a medical professional or institution (, PA, ORE CRUSHER, urgent care, hospital, or halfway...) When possible be specific @ -No Did you speak to anyone other than the patient for history (EMS, parent, family, police, friend...)? What history was obtained from this source @ -No Did you review nursing and triage notes (agree or disagree)? Why? @ -I reviewed and agree with nursing and triage notes Were old charts reviewed (outside hosp., previous admission, EMS record, old EKG, old radiological studies, urgent care reports/EKG's, halfway records)? Report findings @ -I reviewed prior charts of prior labwork on this patient Differential Diagnosis (chest pain, altered mental status, abdominal pain women, abdominal pain men, vaginal bleeding, weakness, fever, dyspnea, syncope, headache, dizziness, GI bleed, back pain, seizure, CVA, palpatations, mental health, musculoskeletal)? @ -Differential Weakness: Hypoglycemia, shock, sepsis, hyponatremia, anemia, infection, [place], ETOH, adverse medicine reaction, overdose, stroke, this is not meant to be an all-inclusive list. EKG interpreted by me (3pts min.). @ -As above X-rays interpreted by me (1pt min.). @ -Chest x-ray showed no acute abnormality. CT interpreted by me (1pt min.). @ -None done U/S interpreted by me (1pt. min.). @ -None done What testing was considered but not performed or refused? (CT, X-rays, U/S, labs)? Why? @ -None What meds were considered but not given or refused? Why? @ -None Did you discuss the management of the patient with other professionals (professionals i.e. , PA, ORE CRUSHER, lab, RT, psych nurse, licensed master social worker, glass calibrator, teacher, press officer, manager case)? Give summary @ -I spoke with Dr. Zamarripa he agreed to admit the patient admitted the patient wrote admitting orders Was smoking cessation discussed for >3mins.? @ -No Was critical care preformed (if so, how long)? @ -No Were there social determinants of health that impacted care today? How? (Homel essness, low income, unemployed, alcoholism, drug addiction, transportation, low edu. Level, literacy, decrease access to med. care, prison, rehab)? @ -No Was there de-escalation of care discussed even if they declined (Discuss DNR or withdrawal of care, Hospice)? DNR status @ -No What co-morbidities impacted this encounter? (DM, HTN, Smoking, COPD, CAD, Cancer, CVA, ARF, Chemo, Hep., AIDS, mental health diagnosis, sleep apnea, morbid obesity)? @ -None Was patient admitted / discharged? Hospital course, mention meds given and route, prescriptions, significant lab abnormalities, going to OR and other pertinent info. @ -Patient a urinary tract infection I discussed the possibility for going home she stated she was too weak home so I spoke with Dr. Zamarripa he agreed to admit the patient admitted the patient wrote admitting orders I started the patient on 2 g Rocephin in the emergency department. Undiagnosed new problem with uncertain prognosis? @ -No Drug Therapy requiring intensive monitoring for toxicity (Heparin, Nitro, Insulin, Cardizem)? @ -No Were any procedures done? @ -No Diagnosis/symptom? @ -Urinary tract infection Acute, or Chronic, or Acute on Chronic? @ -Acute Uncomplicated (without systemic symptoms) or Complicated (systemic symptoms)? @ -Complicated Side effects of treatment? @ -No Exacerbation, Progression, or Severe Exacerbation? @ -No Poses a threat to life or bodily function? How? (Chest pain, [place], [place], pneumonia, PE, COPD, DKA, ARF, appy, cholecystitis, CVA, Diverticulitis, Homicidal, Suicidal, threat to staff... and all critical care pts) @ -No Diagnosis/symptom? @ -Weakness unable to ambulate Acute, or Chronic, or Acute on Chronic? @ -Acute Uncomplicated (without systemic symptoms) or Complicated (systemic symptoms)? @ -Complicated Side effects of treatment? @ -none Exacerbation, Progression, or Severe Exacerbation] @ -no Poses a threat to life or bodily function? @ -no - Lab Data Result diagrams: 03/18/23 13:45 03/18/23 13:45 Lab Results 03/18/23 03/18/23 03/18/23 Range/Units 13:45 13:45 13:45 WBC 6.7 (3.8-10.6) k/uL RBC 5.01 (3.80-5.40) m/uL Hgb 13.2 D (11.4-16.0) gm/dL Hct 41.7 (34.0-46.0) % MCV 83.3 D (80.0-100.0) fL MCH 26.4 (25.0-35.0) pg MCHC 31.7 (31.0-37.0) g/dL RDW 18.6 H (11.5-15.5) % Plt Count 160 D (150-450) k/uL MPV 8.2 Neutrophils % 62 % Lymphocytes % 27 % Monocytes % 8 % Eosinophils % 2 % Basophils % 1 % Neutrophils # 4.2 (1.3-7.7) k/uL Lymphocytes # 1.8 (1.0-4.8) k/uL Monocytes # 0.5 (0-1.0) k/uL Eosinophils # 0.1 (0-0.7) k/uL Basophils # 0.0 (0-0.2) k/uL Hypochromasia Marked Anisocytosis Slight Microcytosis Slight Sodium 142 (137-145) mmol/L Potassium 4.4 (3.5-5.1) mmol/L Chloride 108 H (98-107) mmol/L Carbon Dioxide 26 (22-30) mmol/L Anion Gap 8 mmol/L BUN 32 H (7-17) mg/dL Creatinine 1.25 H (0.52-1.04) mg/dL Est GFR (CKD-EPI)AfAm 48 (>60 ml/min/1.73 sqM) Est GFR (CKD-EPI)NonAf 41 (>60 ml/min/1.73 sqM) Glucose 155 H (74-99) mg/dL Plasma Lactic Acid Hema (0.7-2.0) mmol/L Calcium 9.6 (8.4-10.2) mg/dL Magnesium 1.9 (1.6-2.3) mg/dL Total Bilirubin 0.5 (0.2-1.3) mg/dL AST 23 (14-36) U/L ALT 12 (4-34) U/L Alkaline Phosphatase 88 (38-126) U/L Troponin I (0.000-0.034) ng/mL Total Protein 6.5 (6.3-8.2) g/dL Albumin 3.8 (3.5-5.0) g/dL Urine Color Light Yellow Urine Appearance Clear (Clear) Urine pH 5.5 (5.0-8.0) Ur Specific [place] 1.019 (1.001-1.035) Urine Protein Negative (Negative) Urine Glucose (UA) Negative (Negative) Urine Ketones Negative (Negative) Urine Blood Trace H (Negative) Urine Nitrite Negative (Negative) Urine Bilirubin Negative (Negative) Urine Urobilinogen <2.0 (<2.0) mg/dL Ur Leukocyte Esterase Large H (Negative) Urine RBC 5 (0-5) /hpf Urine WBC 66 H (0-5) /hpf Ur Squamous Epith Cells 1 (0-4) /hpf Urine Bacteria Rare H (None) /hpf Hyaline Casts 1 (0-2) /lpf Urine Mucus Rare H (None) /hpf 03/18/23 03/18/23 Range/Units 13:45 13:45 WBC (3.8-10.6) k/uL RBC (3.80-5.40) m/uL Hgb (11.4-16.0) gm/dL Hct (34.0-46.0) % MCV (80.0-100.0) fL MCH (25.0-35.0) pg MCHC (31.0-37.0) g/dL RDW (11.5-15.5) % Plt Count (150-450) k/uL MPV Neutrophils % % Lymphocytes % % Monocytes % % Eosinophils % % Basophils % % Neutrophils # (1.3-7.7) k/uL Lymphocytes # (1.0-4.8) k/uL Monocytes # (0-1.0) k/uL Eosinophils # (0-0.7) k/uL Basophils # (0-0.2) k/uL Hypochromasia Anisocytosis Microcytosis Sodium (137-145) mmol/L Potassium (3.5-5.1) mmol/L Chloride (98-107) mmol/L Carbon Dioxide (22-30) mmol/L Anion Gap mmol/L BUN (7-17) mg/dL Creatinine (0.52-1.04) mg/dL Est GFR (CKD-EPI)AfAm (>60 ml/min/1.73 sqM) Est GFR (CKD-EPI)NonAf (>60 ml/min/1.73 sqM) Glucose (74-99) mg/dL Plasma Lactic Acid Hema 1.2 (0.7-2.0) mmol/L Calcium (8.4-10.2) mg/dL Magnesium (1.6-2.3) mg/dL Total Bilirubin (0.2-1.3) mg/dL AST (14-36) U/L ALT (4-34) U/L Alkaline Phosphatase (38-126) U/L Troponin I 0.014 (0.000-0.034) ng/mL Total Protein (6.3-8.2) g/dL Albumin (3.5-5.0) g/dL Urine Color Urine Appearance (Clear) Urine pH (5.0-8.0) Ur Specific [place] (1.001-1.035) Urine Protein (Negative) Urine Glucose (UA) (Negative) Urine Ketones (Negative) Urine Blood (Negative) Urine Nitrite (Negative) Urine Bilirubin (Negative) Urine Urobilinogen (<2.0) mg/dL Ur Leukocyte Esterase (Negative) Urine RBC (0-5) /hpf Urine WBC (0-5) /hpf Ur Squamous Epith Cells (0-4) /hpf Urine Bacteria (None) /hpf Hyaline Casts (0-2) /lpf Urine Mucus (None) /hpf Disposition Clinical Impression: Urinary tract infection, Inability to walk Disposition: ADMITTED IP TO THIS HOSP Referrals: Vikram Zamarripa MD [Primary Care Provider] - 1-2 days Time of Disposition: 15:42
[2023-03-18 14:04] LABS: Anisocytosis Slight; Basophils % (A) 1 %; Eosinophils # (A) 0.1 k/uL (0-0.7); Eosinophils % (A) 2 %; HCT 41.7 % (34.0-46.0); Hypochromasia Marked; Lymphocytes # (A) 1.8 k/uL (1.0-4.8); Lymphocytes % (A) 27 %; MCH 26.4 pg (25.0-35.0); MCHC 31.7 g/dL (31.0-37.0); Mean Platelet Volume 8.2; Microcytosis Slight; Monocytes # (A) 0.5 k/uL (0-1.0); Monocytes % (A) 8 %; Neutrophils # (A) 4.2 k/uL (1.3-7.7); Neutrophils % (A) 62 %; RBC 5.01 m/uL (3.80-5.40); RDW 18.6 % (11.5-15.5); WBC 6.7 k/uL (3.8-10.6)
[2023-03-18 14:17] LABS: HGB 13.2 gm/dL (11.4-16.0); MCV 83.3 fL (80.0-100.0)
[2023-03-18 14:24] LABS: ALT 12 U/L (4-34); AST 23 U/L (14-36); African American GFR (CKD) 48 (>60 ml/min/1.73 sqM); Albumin 3.8 g/dL (3.5-5.0); Alkaline Phosphatase 88 U/L (38-126); Anion Gap 8 mmol/L; Blood Urea Nitrogen 32 mg/dL (7-17); Calcium 9.6 mg/dL (8.4-10.2); Carbon Dioxide 26 mmol/L (22-30); Chloride 108 mmol/L (98-107); Glucose 155 mg/dL (74-99); Magnesium 1.9 mg/dL (1.6-2.3); Non-African American GFR(CKD) 41 (>60 ml/min/1.73 sqM); Potassium 4.4 mmol/L (3.5-5.1); Sodium 142 mmol/L (137-145); Total Bilirubin 0.5 mg/dL (0.2-1.3); Total Protein 6.5 g/dL (6.3-8.2)
--- NOTE | 2023-03-18 14:42 | XR ---
EXAMINATION TYPE: XR chest 2V DATE OF EXAM: 03/18/2023 COMPARISON: 01/27/2023 TECHNIQUE: PA and lateral views submitted. HISTORY: Weakness and tremor FINDINGS: The lungs are clear and there is no pneumothorax, pleural effusion, or focal pneumonia. No overt raji lure. Osseous structures demonstrate hypertrophic and degenerative changes of the spine. Bilateral pa cemakers seen. Heart mildly enlarged. Degenerative changes spine. Remote traumatic change bilateral s houlder with diffuse osteopenia and arthropathy. Atherosclerotic change aorta. IMPRESSION: 1. No acute process.
[2023-03-18 15:18] LABS: Appearance,Urine Clear (Clear); Bacteria,Urine Rare /hpf; Bilirubin,Urine Negative (Negative); Blood,Urine Trace (Negative); Color,Urine Light Yellow; Glucose,Urine (UA) Negative (Negative); Hyaline Casts,Urine 1 /lpf (0-2); Ketones,Urine Negative (Negative); Leukocyte Esterase,Urine Large (Negative); Mucus,Urine Rare /hpf; Nitrite,Urine Negative (Negative); PH, Urine 5.5 (5.0-8.0); Protein,Urine Negative (Negative); RBC,Urine 5 /hpf (0-5); Specific Gravity,Urine 1.019 (1.001-1.035); Squamous Epithelial Cell,Urine 1 /hpf (0-4); Urobilinogen,Urine <2.0 mg/dL (<2.0); WBC,Urine 66 /hpf (0-5)
[2023-03-18] MEDS ORDERED: cefTRIAXone IN SWFI 1,000 MG/10 ML SYRINGE IVP STA (15:43)
[2023-03-18] MEDS ORDERED: IPRATROPIUM-ALBUTEROL 3 ML NEB INHALATION PRN (19:30)
[2023-03-18] MEDS ORDERED: ALBUTEROL HFA INHALER INHALATION PRN (19:30)
[2023-03-18] MEDS ORDERED: SYMBICORT 160-4.5 MCG INHALER INHALATION SCH (20:00)
[2023-03-18 20:02] LABS: Glucose,Whole Blood 178 mg/dL (70-110)
[2023-03-18] MEDS: Insulin Glargine/Lixisenatide [Soliqua 100 Unit-33 Mcg/Ml Pen] 3 ML In SQ SCH (20:30)
[2023-03-18] MEDS: levETIRAcetam 500 MG TAB PO SCH (20:39)
[2023-03-18] MEDS: QUEtiapine 25 MG TAB PO SCH (20:39)
[2023-03-18] MEDS: prednisoLONE ACETATE 1% OPHTH DROPS 5 ML BTL BOTH EYES SCH (21:33)
[2023-03-18] MEDS: NYSTATIN 100,000 UNIT/GM POWD 15 GM TOPICAL SCH (21:33)
--- NOTE | 2023-03-19 05:16 | HP ---
HISTORY AND PHYSICAL HISTORY OF PRESENT ILLNESS: A 77-year-old white female, came to emergency room with generalized weakness 3 days ago, progressively worse. Can hardly stand, walk. Denies any fever, cough, chills, nausea, vomiting. No dysuria, frequency, urgency, or hesitancy. HOME MEDICINES: 1. Protonix 40 mg daily. 2. Soliqua 15 units daily. 3. Albuterol HFA 2 puffs q.6h p.r.n. 4. Aspirin 81 daily. 5. Trelegy 200 one puff daily. 6. Keppra 500 t.i.d. daily. 7. DuoNeb q.i.d. 8. Calcium 600 daily. 9. Iron sulfate 325 daily. 10.Seroquel 75 mg daily. 11.Flomax 0.4 mg daily. 12.Prednisolone acetate 1 drop both eyes daily. ALLERGIES: Latex, Bactrim. PAST MEDICAL HISTORY: Atrial fibrillation, cancer, coronary artery disease, heart failure, CVA, TIA, diabetes mellitus, osteoarthritis, hypertension, eye disorder, diabetes mellitus, renal disease, seizure disorder. PHYSICAL EXAMINATION: GENERAL: Well developed, well nourished. HEENT: Normocephalic, atraumatic. Pupils equal, round, reactive. LUNGS: Decreased breath sounds x4. PSYCH: Fair mood and affect. NEUROLOGIC: Alert and oriented x3. Cranial nerves intact. ENDOCRINE: 2+ edema. BMI is over 40. VITAL SIGNS: Blood pressure 113 to 143 over 50s to 60s, O2 of 94% to 97% , pulse 60 to 62. ASSESSMENT: Urinary tract infection, generalized weakness, acute on chronic diastolic heart failure, started on Rocephin. Get Infectious Disease consult. Rehydrate with elevated BUN and creatinine for acute tubular necrosis, large leukocyte esterase, 66 white cells in the urine. LABORATORY DATA: BUN is 32, creatinine 1.25. Continue current treatment. PT, OT. Prognosis guarded. MMODL / IJN: [id number] /
[2023-03-19] MEDS: PANTOPRAZOLE 40 MG TABLET PO SCH (07:43)
[2023-03-19] MEDS ORDERED: IPRATROPIUM 0.5 MG/2.5 ML NEBU INHALATION SCH (08:00)
[2023-03-19] MEDS: NYSTATIN 100,000 UNIT/GM POWD 15 GM TOPICAL SCH ×2 (08:34→22:57)
[2023-03-19] MEDS: FERROUS SULFATE 325 MG TAB PO SCH (08:35)
[2023-03-19] MEDS: CALCIUM CARBONATE 500 MG CHEWABLE PO SCH (08:35)
[2023-03-19] MEDS: ASPIRIN 81 MG PO SCH (08:35)
[2023-03-19] MEDS: TAMSULOSIN 0.4 MG CAP.ER.24H PO SCH (08:35)
[2023-03-19] MEDS: amLODIPine 5 MG TAB PO SCH (08:35)
[2023-03-19] MEDS: FUROSEMIDE 20 MG TAB PO SCH (08:35)
[2023-03-19] MEDS: levETIRAcetam 500 MG TAB PO SCH ×3 (08:35→21:22)
[2023-03-19] MEDS: CHOLECALCIFEROL 125 MCG (5000 IU) TABLET PO SCH (08:35)
[2023-03-19] MEDS: SYMBICORT 160-4.5 MCG INHALER INHALATION SCH ×2 (08:39→19:58)
[2023-03-19] MEDS: IPRATROPIUM-ALBUTEROL 3 ML NEB INHALATION SCH ×4 (08:39→19:57)
[2023-03-19 10:37] LABS: Platelet Count 160 k/uL (150-450)
[2023-03-19] MEDS: QUEtiapine 25 MG TAB PO SCH (21:22)
[2023-03-19] MEDS: Insulin Glargine/Lixisenatide [Soliqua 100 Unit-33 Mcg/Ml Pen] 3 ML In SQ SCH (22:12)
[2023-03-20] MEDS: PANTOPRAZOLE 40 MG TABLET PO SCH (06:34)
[2023-03-20 06:37] LABS: Glucose,Whole Blood 173 mg/dL (70-110)
[2023-03-20] MEDS: levETIRAcetam 500 MG TAB PO SCH ×3 (08:33→21:17)
[2023-03-20] MEDS: CHOLECALCIFEROL 125 MCG (5000 IU) TABLET PO SCH (08:33)
[2023-03-20] MEDS: FUROSEMIDE 20 MG TAB PO SCH (08:33)
[2023-03-20] MEDS: amLODIPine 5 MG TAB PO SCH (08:34)
[2023-03-20] MEDS: CALCIUM CARBONATE 500 MG CHEWABLE PO SCH (08:34)
[2023-03-20] MEDS: ASPIRIN 81 MG PO SCH (08:34)
[2023-03-20] MEDS: FERROUS SULFATE 325 MG TAB PO SCH (08:34)
[2023-03-20] MEDS: TAMSULOSIN 0.4 MG CAP.ER.24H PO SCH (08:34)
[2023-03-20] MEDS: NYSTATIN 100,000 UNIT/GM POWD 15 GM TOPICAL SCH ×2 (08:55→23:53)
[2023-03-20] MEDS: SYMBICORT 160-4.5 MCG INHALER INHALATION SCH ×2 (09:44→22:23)
[2023-03-20] MEDS: IPRATROPIUM-ALBUTEROL 3 ML NEB INHALATION SCH ×4 (09:44→22:23)
[2023-03-20 11:26] LABS: Glucose,Whole Blood 230 mg/dL (70-110)
[2023-03-20 16:53] LABS: Glucose,Whole Blood 285 mg/dL (70-110)
[2023-03-20] MEDS: prednisoLONE ACETATE 1% OPHTH DROPS 5 ML BTL BOTH EYES SCH (21:16)
[2023-03-20] MEDS: QUEtiapine 25 MG TAB PO SCH (21:17)
[2023-03-20] MEDS: Insulin Glargine/Lixisenatide [Soliqua 100 Unit-33 Mcg/Ml Pen] 3 ML In SQ SCH (21:23)
[2023-03-20 22:01] LABS: Glucose,Whole Blood 275 mg/dL (70-110)
[2023-03-21 06:09] LABS: Glucose,Whole Blood 186 mg/dL (70-110)
[2023-03-21] MEDS: PANTOPRAZOLE 40 MG TABLET PO SCH (06:38)
--- NOTE | 2023-03-21 09:16 | P.CONS ---
History of Present Illness - Reason for Consult Consult date: 03/20/23 - History of Present Illness Patient is a 77-year-old female with a past medical history significant for atrial fibrillation coronary artery disease heart failure diabetes mellitus hypertension osteoarthritis, patient presented to the hospital 2 days ago for evaluation of generalized weakness patient symptom has been going on for about 3 days before presentation the hospital and has been progressively getting worse patient mention she can only stand and has been shaking but cannot walk patient denies having any fever or any chills denies any headache or URI symptoms no chest pain shortness of breath or cough no nausea no vomiting no abdominal pain or any diarrhea patient on presentation to the hospital did have 1 low-grade fever of 99.2 F patient was not tachycardic or hypotensive mild hypoxemia currently on 2 L nasal cannula oxygen patient did have a white count of 6.7 BUN/creatinine were elevated liver exams are normal urine has been positive patient was started on Rocephin concerning for UTI infectious disease was consulted today for further management of antibiotic therapy Past Medical History Past Medical History: Atrial Fibrillation, Asthma, Coronary Artery Disease (CAD), Cancer, Heart Failure, CVA/TIA, Diabetes Mellitus, Eye Disorder, Hypertension, Osteoarthritis (OA), Renal Disease, Seizure Disorder Additional Past Medical History / Comment(s): Brain mass/fall with intracranial bleed/hematome-surgery at [facility], 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 History of Any Multi-Drug Resistant Organisms: MRSA Year Discovered:: 01/26/19 MDRO Source:: URINE Past Surgical History: Cholecystectomy, Heart Catheterization, Heart Ca theterization With Stent, Hysterectomy, Pacemaker Additional Past Surgical History / Comment(s): Evacuation of intracranial hematoma and ressection of hemorrhagic mass, pacemaker 2016, PCI with stent 06/06/18, EGD/colonoscopy, R eye corneal implant/cataract removal, EGD 06/2018, colonoscopy, skin cancer removal. Past Anesthesia/Blood Transfusion Reactions: No Reported Reaction Additional Past Anesthesia/Blood Transfusion Reaction / Comm: . Date of Last Stent Placement:: 06/06/18 Type of Cardiac Device: Permanent Pacemaker Device Placement Date:: 04/2016 Past Psychological History: Anxiety, Depression Smoking Status: Never smoker Past Alcohol Use History: None Reported Past Drug Use History: None Reported - Past Family History Mother Family Medical History: Cancer, COPD, Hypertension Additional Family Medical History / Comment(s): Mother had bone cancer. Father Family Medical History: Cancer, Hypertension Additional Family Medical History / Comment(s): Father had skin cancer. Medications and Allergies Home Medications Medication Instructions Recorded Confirmed Type Pantoprazole [Protonix] 40 mg PO DAILY 12/19/19 03/18/23 History Insulin Glargine/Lixisenatide 15 units SQ HS 10/12/21 03/18/23 History [Soliqua 100 Unit-33 Mcg/ml Pen] Albuterol Sulfate [Ventolin HFA] 2 puff INHALATION RT-Q6H PRN 05/29/22 03/18/23 History Aspirin EC [Ecotrin Low Dose] 81 mg PO DAILY 05/29/22 03/18/23 History Fluticasone/Umeclidin/Vilanter 1 puff INHALATION RT-DAILY 05/29/22 03/18/23 History [Trelegy Ellipta 200-62.5-25] amLODIPine [Norvasc] 5 mg PO DAILY tab 06/29/22 03/18/23 Rx Acetaminophen Tab [Tylenol] 500 - 1,000 mg PO Q6H PRN 10/11/22 03/18/23 History Cholecalciferol [Vitamin D3 (125 250 mcg PO DAILY 10/11/22 03/18/23 History Mcg = 5000 Iu)] levETIRAcetam [Keppra] 500 mg PO TID 10/11/22 03/18/23 History Ipratropium-Albuterol Nebulize 3 ml INHALATION RT-Q6H PRN 01/20/23 03/18/23 History [Duoneb 0.5 mg-3 mg/3 ml Soln] Furosemide [Lasix] 20 mg PO DAILY 90 Days #90 tab 01/30/23 03/18/23 Rx Calcium Carbonate [Calcium] 600 mg PO DAILY 03/18/23 03/18/23 History Ferrous Sulfate [Feosol] 325 mg PO DAILY 03/18/23 03/18/23 History QUEtiapine [SEROquel] 75 mg PO HS 03/18/23 03/18/23 History Tamsulosin [Flomax] 0.4 mg PO DAILY 03/18/23 03/18/23 History prednisoLONE ACETATE 1% OPHTH 1 drop BOTH EYES SUMOWEFR 03/18/23 03/18/23 History [Pred Forte 1%] Allergies Allergy/AdvReac Type Severity Reaction Status Date / Time lactose Allergy Diarrhea Verified 03/19/23 12:36 Latex, Natural Rubber Allergy Itching Verified 03/18/23 13:55 sulfamethoxazole Allergy Rash/Hives Verified 03/18/23 13:55 [From Bactrim] trimethoprim [From Bactrim] Allergy Rash/Hives Verified 03/18/23 13:55 Physical Exam Vitals: Vital Signs Temp Pulse Pulse Resp BP BP Pulse Ox 03/20/23 16:39 62 03/20/23 16:30 62 03/20/23 12:20 97.8 F 66 63 16 149/52 98 03/20/23 12:11 62 03/20/23 09:56 68 03/20/23 09:45 64 96 03/20/23 07:10 98.5 F 60 16 148/49 92 L 03/20/23 01:08 98.2 F 60 19 167/71 100 03/19/23 22:11 97.3 F L 60 18 157/70 98 03/19/23 21:04 99.2 F 60 18 159/68 96 03/19/23 20:10 60 03/19/23 19:58 60 03/19/23 18:00 60 12 131/61 93 L Intake and Output 03/20/23 03/20/23 03/20/23 06:59 14:59 22:59 Other: Voiding Method External Catheter Results CBC & Chem 7: 03/21/23 06:59 03/21/23 06:59 Labs: Abnormal Lab Results - Last 24 Hours (Table) 03/20/23 03/20/23 03/20/23 Range/Units 06:35 11:25 16:51 POC Glucose (mg/dL) 173 H 230 H 285 H (70-110) mg/dL Assessment and Plan Plan: 1patient presented to hospital with generalized weakness no energy possibly metabolic/dehydration as the patient did have elevated BUN and creatinine patient also have a positive UA but not very clear about any urinary symptoms component of UTI not entirely excluded 2-urine culture has been requested results will be followed 3-May continue ceftriaxone as the patient mentions some improvement in her symptoms while waiting for the culture to finalize We will follow on clinical condition and cultures to further adjust medication if needed Thank you for this consultation we will follow the patient along with you Dictation was produced using [employer] dictation software. please excuse any grammatical, word or spelling errors. Time with Patient: Greater than 30
--- NOTE | 2023-03-21 09:17 | P.CRDCN ---
History of Present Illness History of present illness: HISTORY OF PRESENT ILLNESS: This is a 77-year-old female with a past medical history significant for paroxysmal atrial fibrillation, permanent pacemaker implantation, diabetes, hypertension, and intracranial hemorrhage. Patient follows in the office with Dr. Kidd. We have been asked to see the patient in consultation for bradycardia. Patient examined at the bedside. Patient presented to the hospital for chief complaint of weakness. She has been treated for urinary tract infection. Cardiogenic consulted secondary to bradycardia. However patient has a permanent pacemaker which appears to be functioning appropriately. There has been no episodes of bradycardia. * EKG reveals paced rhythm with underlying atrial fibrillation * Chest xray negative for acute process * Most recent echocardiogram obtained in March 2022 revealing ejection fraction 55%, mild MR, mild TR * Cardiac catheterization history: 2019 with stenting of the proximal LAD REVIEW OF SYSTEMS: At the time of my exam: CONSTITUTIONAL: Denies fever or chills. HEENT: Denies blurred vision, vision changes, or eye pain. Denies hemoptysis CARDIOVASCULAR: Denies chest pain. Denies orthopnea. Denies PND. Denies palpitations RESPIRATORY: Denies shortness of breath. GASTROINTESTINAL: Denies abdominal pain. Denies nausea or vomiting. HEMATOLOGIC: Denies bleeding disorders. GENITOURINARY: Denies any blood in urine. SKIN: Denies pruitis. Denies rash. PHYSICAL EXAM: VITAL SIGNS: Reviewed. GENERAL: Well-developed in no acute distress. HEENT: Head is normocephalic. Pupils are equal, round. Sclerae anicteric. Mucous membranes of the mouth are moist. Neck supple. No JVD or thyromegaly LUNGS: Respirations even and unlabored. Lungs essentially clear to auscultation bilaterally. HEART: Regular rate and rhythm. S1 and S2 heard. ABDOMEN: Soft. Nondistended. Nontender. EXTREMITIES: Normal range of motion. No clubbing or cyanosis. Peripheral pulses intact. No lower extremity edema NEUROLOGIC: Awake and alert. Oriented x 3. ASSESSMENT: Preethi weakness Urinary tract infection Bradycardia, ruled out, no evidence of bradycardia, pacemaker appears to be functioning appropriately Paroxysmal atrial fibrillation History of permanent pacemaker implantation, [employer] Hypertension Diabetes History of intracranial hemorrhage PLAN: Obtain 2-D echo to assess cardiac structure and function Interrogate device Resume home cardiac medications Patient is currently stable from a cardiac perspective Nurse practitioner note has been reviewed by physician. Signing provider agrees with the documented findings, assessment, and plan of care. Past Medical History Past Medical History: Atrial Fibrillation, Asthma, Coronary Artery Disease (CAD), Cancer, Heart Failure, CVA/TIA, Diabetes Mellitus, Eye Disorder, Hypertension, Osteoarthritis (OA), Renal Disease, Seizure Disorder Additional Past Medical History / Comment(s): Brain mass/fall with intracranial bleed/hematome-surgery at [facility], 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 History of Any Multi-Drug Resistant Organisms: MRSA Date of last positivie culture/infection: 01/26/19 MDRO Source:: URINE Past Surgical History: Cholecystectomy, Heart Catheterization, Heart Catheterization With Stent, Hysterectomy, Pacemaker Additional Past Surgical History / Comment(s): Evacuation of intracranial hematoma and ressection of hemorrhagic mass, pacemaker 2016, PCI with stent 06/06/18, EGD/colonoscopy, R eye corneal implant/cataract removal, EGD 06/2018, colonoscopy, skin cancer removal. Past Anesthesia/Blood Transfusion Reactions: No Reported Reaction Additional Past Anesthesia/Blood Transfusion Reaction / Comment(s): . Date of Last Stent Placement:: 06/06/18 Type of Cardiac Device: Permanent Pacemaker Device Placement Date:: 04/2016 Past Psychological History: Anxiety, Depression Smoking Status: Never smoker Past Alcohol Use History: None Reported Past Drug Use History: None Reported - Past Family History Mother Family Medical History: Cancer, COPD, Hypertension Additional Family Medical History / Comment(s): Mother had bone cancer. Father Family Medical History: Cancer, Hypertension Additional Family Medical History / Comment(s): Father had skin cancer. Medications and Allergies Home Medications Medication Instructions Recorded Confirmed Type Pantoprazole [Protonix] 40 mg PO DAILY 12/19/19 03/18/23 History Insulin Glargine/Lixisenatide 15 units SQ HS 10/12/21 03/18/23 History [Soliqua 100 Unit-33 Mcg/ml Pen] Albuterol Sulfate [Ventolin HFA] 2 puff INHALATION RT-Q6H PRN 05/29/22 03/18/23 History Aspirin EC [Ecotrin Low Dose] 81 mg PO DAILY 05/29/22 03/18/23 History Fluticasone/Umeclidin/Vilanter 1 puff INHALATION RT-DAILY 05/29/22 03/18/23 History [Trelegy Ellipta 200-62.5-25] amLODIPine [Norvasc] 5 mg PO DAILY tab 06/29/22 03/18/23 Rx Acetaminophen Tab [Tylenol] 500 - 1,000 mg PO Q6H PRN 10/11/22 03/18/23 History Cholecalciferol [Vitamin D3 (125 250 mcg PO DAILY 10/11/22 03/18/23 History Mcg = 5000 Iu)] levETIRAcetam [Keppra] 500 mg PO TID 10/11/22 03/18/23 History Ipratropium-Albuterol Nebulize 3 ml INHALATION RT-Q6H PRN 01/20/23 03/18/23 His tory [Duoneb 0.5 mg-3 mg/3 ml Soln] Furosemide [Lasix] 20 mg PO DAILY 90 Days #90 tab 01/30/23 03/18/23 Rx Calcium Carbonate [Calcium] 600 mg PO DAILY 03/18/23 03/18/23 History Ferrous Sulfate [Feosol] 325 mg PO DAILY 03/18/23 03/18/23 History QUEtiapine [SEROquel] 75 mg PO HS 03/18/23 03/18/23 History Tamsulosin [Flomax] 0.4 mg PO DAILY 03/18/23 03/18/23 History prednisoLONE ACETATE 1% OPHTH 1 drop BOTH EYES SUMOWEFR 03/18/23 03/18/23 History [Pred Forte 1%] Allergies Allergy/AdvReac Type Severity Reaction Status Date / Time lactose Allergy Diarrhea Verified 03/19/23 12:36 Latex, Natural Rubber Allergy Itching Verified 03/18/23 13:55 sulfamethoxazole Allergy Rash/Hives Verified 03/18/23 13:55 [From Bactrim] trimethoprim [From Bactrim] Allergy Rash/Hives Verified 03/18/23 13:55 Physical Exam Vitals: Vital Signs Temp Pulse Pulse Resp BP Pulse Ox 03/21/23 06:58 98.7 F 61 16 143/83 97 03/21/23 02:04 98.6 F 61 18 144/73 100 03/20/23 22:35 64 03/20/23 22:23 68 03/20/23 19:41 98.0 F 60 18 152/75 100 03/20/23 16:39 62 03/20/23 16:30 62 03/20/23 12:20 97.8 F 66 63 16 149/52 98 03/20/23 12:11 62 03/20/23 09:56 68 03/20/23 09:45 64 96 Intake and Output 03/20/23 03/21/23 03/21/23 22:59 06:59 14:59 Output Total 450 Balance -450 Output: Urine 450 Other: Voiding Method External Catheter # Voids 600 Results 03/18/23 13:45 03/18/23 13:45 Current Medications Generic Name Dose Route Start Last Admin Trade Name Freq PRN Reason Stop Dose Admin Albuterol Sulfate 2 puff 03/18/23 19:30 Albuterol Hfa Inhaler INHALATION RT-Q6H PRN Shortness Of Breath Albuterol/Ipratropium 3 ml 03/19/23 08:00 03/20/23 22:23 Ipratropium-Albuterol 3 Ml Neb INHALATION 3 ml RT-QID ALEXSANDER Administration Amlodipine Besylate 5 mg 03/19/23 09:00 03/20/23 08:34 Amlodipine 5 Mg Tab PO 5 mg DAILY ALEXSANDER Administration Aspirin 81 mg 03/19/23 09:00 03/20/23 08:34 Aspirin 81 Mg PO 81 mg DAILY ALEXSANDER Administration Budesonide/Formoterol Fumarate 2 puff 03/19/23 08:00 03/20/23 22:23 Symbicort 160-4.5 Mcg Inhaler INHALATION 2 puff RT-BID ALEXSANDER Administration Calcium Carbonate/Glycine 500 mg 03/19/23 09:00 03/20/23 08:34 Calcium Carbonate 500 Mg Chewable PO 500 mg DAILY ALEXSANDER Administration Cholecalciferol 250 mcg 03/19/23 09:00 03/20/23 08:33 Cholecalciferol 125 Mcg (5000 Iu) Tablet PO 250 mcg DAILY ALEXSANDER Administration Ferrous Sulfate 325 mg 03/19/23 09:00 03/20/23 08:34 Ferrous Sulfate 325 Mg Tab PO 325 mg DAILY ALEXSANDER Administration Furosemide 20 mg 03/19/23 09:00 03/20/23 08:33 Furosemide 20 Mg Tab PO 20 mg DAILY ALEXSANDER Administration Ceftriaxone Sodium 2 gm/ 50 mls @ 100 mls/hr 03/19/23 09:00 03/20/23 08:37 Sodium Chloride IVPB 100 mls/hr Q24HR ALEXSANDER Administration Protocol Levetiracetam 500 mg 03/18/23 22:00 03/20/23 21:17 Levetiracetam 500 Mg Tab PO 500 mg TID ALEXSANDER Administration Insulin Glargine/ 15 units 03/18/23 21:00 03/20/23 21:23 Lixisenatide [ SQ Not Given Soliqua 100 Unit-33 HS ALEXSANDER Mcg/Ml Pen] 3 Ml In Nystatin 1 applic 03/18/23 21:00 03/20/23 23:53 Nystatin 100,000 Unit/Gm Powd 15 Gm TOPICAL 1 applic BID ALEXSANDER Administration Protocol Pantoprazole Sodium 40 mg 03/19/23 07:30 03/21/23 06:38 Pantoprazole 40 Mg Tablet PO 40 mg DAILY@0730 ALEXSANDER Administration Prednisolone Acetate 1 drops 03/18/23 21:00 03/20/23 21:16 Prednisolone Acetate 1% Ophth Drops 5 Ml Btl BOTH EYES 1 drops SUMOWEFR ALEXSANDER Administration Quetiapine Fumarate 75 mg 03/18/23 21:00 03/20/23 21:17 Quetiapine 25 Mg Tab PO 75 mg HS ALEXSANDER Administration Tamsulosin HCl 0.4 mg 03/19/23 09:00 03/20/23 08:34 Tamsulosin 0.4 Mg Cap.Er.24h PO 0.4 mg DAILY ALEXSANDER Administration Intake and Output 03/20/23 03/21/23 03/21/23 22:59 06:59 14:59 Output Total 450 Balance -450 Output: Urine 450 Other: Voiding Method External Catheter # Voids 600 03/18/23 13:45 03/18/23 13:45
[2023-03-21] MEDS: levETIRAcetam 500 MG TAB PO SCH ×3 (09:20→20:42)
[2023-03-21] MEDS: CHOLECALCIFEROL 125 MCG (5000 IU) TABLET PO SCH (09:20)
[2023-03-21] MEDS: FUROSEMIDE 20 MG TAB PO SCH (09:20)
[2023-03-21] MEDS: TAMSULOSIN 0.4 MG CAP.ER.24H PO SCH (09:20)
[2023-03-21] MEDS: FERROUS SULFATE 325 MG TAB PO SCH (09:20)
[2023-03-21] MEDS: amLODIPine 5 MG TAB PO SCH (09:20)
[2023-03-21] MEDS: ASPIRIN 81 MG PO SCH (09:20)
[2023-03-21] MEDS: CALCIUM CARBONATE 500 MG CHEWABLE PO SCH (09:20)
[2023-03-21] MEDS: NYSTATIN 100,000 UNIT/GM POWD 15 GM TOPICAL SCH ×2 (09:29→20:43)
[2023-03-21] MEDS: SYMBICORT 160-4.5 MCG INHALER INHALATION SCH ×2 (10:03→19:46)
[2023-03-21] MEDS: IPRATROPIUM-ALBUTEROL 3 ML NEB INHALATION SCH ×4 (10:03→19:44)
[2023-03-21 11:18] LABS: Basophils # (A) 0.03 X 10*3/uL (0.00-0.10); Basophils % (A) 0.4 %; Eosinophils # (A) 0.13 X 10*3/uL (0.04-0.35); Eosinophils % (A) 1.9 %; HCT 40.3 % (37.2-46.3); HGB 11.9 g/dL (12.0-15.0); Lymphocytes # (A) 1.87 X 10*3/uL (0.90-5.00); Lymphocytes % (A) 26.6 %; MCH 24.7 pg (27.0-32.0); MCHC 29.5 g/dL (32.0-37.0); MCV 83.6 FL (80.0-97.0); Mean Platelet Volume 10.6 FL (9.5-12.2); Monocytes # (A) 0.81 X 10*3/uL (0.20-1.00); Monocytes % (A) 11.5 %; NRBC Per 100 WBC 0 X 10*3/uL (0.00-0.01); Neutrophils # (A) 4.15 X 10*3/uL (1.80-7.70); Neutrophils % (A) 59.2 %; Platelet Count 151 X 10*3/uL (140-440); RBC 4.82 X 10*6/uL (4.10-5.20); RDW 18.4 % (11.5-14.5); WBC 7.02 X 10*3/uL (4.50-10.00)
[2023-03-21 11:39] LABS: ALT 7 U/L (8-44); AST 8 U/L (13-35); Albumin 3.7 g/dL (3.8-4.9); Albumin/Globulin Ratio 1.68 Ratio (1.60-3.17); Alkaline Phosphatase 92 U/L (41-126); BUN/Creat Ratio 15.69 Ratio (12.00-20.00); Blood Urea Nitrogen 20.4 mg/dL (9.0-27.0); Calcium 9.5 mg/dL (8.7-10.3); Chloride 101 mmol/L (96-109); Globulin 2.2 g/dL (1.6-3.3); Glucose 190 mg/dL (70-110); Potassium 4.5 mmol/L (3.5-5.5); Sodium 142 mmol/L (135-145); Total Bilirubin 0.3 mg/dL (0.3-1.2); Total Protein 5.9 g/dL (6.2-8.2)
--- NOTE | 2023-03-21 15:18 | P.PN ---
Subjective Progress Note Date: 03/21/23 Principal diagnosis: Reason for follow-up is UTI Patient is a 77-year-old female with a past medical history significant for atrial fibrillation coronary artery disease heart failure diabetes mellitus hypertension osteoarthritis, patient presented to the hospital for evaluation generalized weakness no energy noticed to have a positive UA concerning for possible UTI. On today's evaluation that is 03/21/2023 the patient denies having any fever or any chills, the patient is breathing comfortably on room air, patient denies chest pain cough, the patient denies having any abdominal pain no nausea vomiting and no diarrhea Patient white count is 7.02, creatinine is 1.3 Objective - Vital Signs Vital signs: Vital Signs Temp 98.7 F 03/21/23 06:58 Pulse 64 03/21/23 12:46 Resp 16 03/21/23 06:58 BP 143/83 03/21/23 06:58 Pulse Ox 95 03/21/23 10:04 FiO2 Intake & Output 03/20/23 03/21/23 03/21/23 18:59 06:59 18:59 Output Total 450 Balance -450 Output: Urine 450 Other: Voiding Method External Catheter External Catheter Diaper External Catheter # Voids 600 - Exam GENERAL DESCRIPTION: An elderly female up in the chair in no distress RESPIRATORY SYSTEM: Unlabored breathing , decreased breath sounds at bases HEART: S1 S2 regular rate and rhythm , ABDOMEN: Soft , no tenderness EXTREMITIES: No edema feet - Labs CBC & Chem 7: 03/21/23 06:59 03/21/23 06:59 Labs: Abnormal Lab Results - Last 24 Hours (Table) 03/20/23 03/20/23 03/21/23 Range/Units 16:51 22:00 06:07 Hgb (12.0-15.0) g/dL MCH (27.0-32.0) pg MCHC (32.0-37.0) g/dL RDW (11.5-14.5) % Est GFR (CKD-EPI) (>=60) Glucose (70-110) mg/dL POC Glucose (mg/dL) 285 H 275 H 186 H (70-110) mg/dL AST (13-35) U/L ALT (8-44) U/L Total Protein (6.2-8.2) g/dL Albumin (3.8-4.9) g/dL 03/21/23 03/21/23 Range/Units 06:59 06:59 Hgb 11.9 L (12.0-15.0) g/dL MCH 24.7 L (27.0-32.0) pg MCHC 29.5 L (32.0-37.0) g/dL RDW 18.4 H (11.5-14.5) % Est GFR (CKD-EPI) 42 L (>=60) Glucose 190 H (70-110) mg/dL POC Glucose (mg/dL) (70-110) mg/dL AST 8 L (13-35) U/L ALT 7 L (8-44) U/L Total Protein 5.9 L (6.2-8.2) g/dL Albumin 3.7 L (3.8-4.9) g/dL Assessment and Plan (1) UTI (urinary tract infection) Current Visit: Yes Status: Acute Code(s): N39.0 - URINARY TRACT INFECTION, SITE NOT SPECIFIED SNOMED Code(s): 26017908 Plan: 1patient presented to hospital with generalized weakness no energy possibly metabolic/dehydration as the patient did have elevated BUN and creatinine patient also have a positive UA but not very clear about any urinary symptoms co mponent of UTI not entirely excluded 2-urine culture has been requested results currently pending 3-patient seem to have shown some clinical improvement hence will continue with Rocephin while waiting for the culture to finalize Dictation was produced using [employer] dictation software. please excuse any grammatical, word or spelling errors.
[2023-03-21] MEDS ORDERED: DEXTROSE 50% SYRINGE 50 ML IVP PRN ×2 (17:49)
--- NOTE | 2023-03-21 19:01 | CA ---
Transthoracic Echo Report Name: Zehra Montes Age: 77 Gender: F : 1945 Exam Date: 03/21/2023 09:31 Exam Location: [facility] Ht (in): 65 Wt (lb): 195 Ordering Physician: Gladys Dodd Attending/Referring Phys: [id number], Yousif [employer] Supervisor Neema Mcallister RDCS Procedure CPT: Indications: LV function Cardiac Hx: Technical Quality: Technically difficult study Contrast 1: Definity Total Dose (mL): 2 Contrast 2: Total Dose (mL): MEASUREMENTS (Male / Female) Normal Values 2D ECHO LV Diastolic Diameter PLAX 3.4 cm 4.2 - 5.9 / 3.9 - 5.3 cm LV Systolic Diameter PLAX 2.6 cm IVS Diastolic Thickness 1.7 cm 0.6 - 1.0 / 0.6 - 0.9 cm LVPW Diastolic Thickness 1.6 cm 0.6 - 1.0 / 0.6 - 0.9 cm LV Relative Wall Thickness 1.0 RV Internal Dim ED PLAX 3.5 cm LA Volume 62.2 cm??? 18 - 58 / 22 - 52 cm??? LA Volume Index 30.4 cm???/m??? 16 - 28 cm???/m??? M-MODE Aortic Root Diameter MM 2.9 cm LA Systolic Diameter MM 5.0 cm LA Ao Ratio MM 1.7 AV Cusp Separation MM 1.4 cm DOPPLER AV Peak Velocity 139.0 cm/s AV Peak Gradient 7.7 mmHg AV Mean Velocity 80.9 cm/s AV Mean Gradient 3.2 mmHg AV Velocity Time Integral 35.4 cm AI Peak Velocity 245.9 cm/s AI Peak Gradient 24.2 mmHg AI Pressure Half Time 682.8 ms LVOT Peak Velocity 91.4 cm/s LVOT Peak Gradient 3.3 mmHg LVOT Velocity Time Integral 20.1 cm MV Area PHT 3.8 cm??? Mitral E Point Velocity 122.0 cm/s Mitral A Point Velocity 69.5 cm/s Mitral E to A Ratio 1.8 MV Deceleration Time 201.1 ms MV E' Velocity 4.3 cm/s Mitral E to MV E' Ratio 28.2 TR Peak Velocity 204.2 cm/s TR Peak Gradient 16.7 mmHg Right Ventricular Systolic Press 20.4 mmHg FINDINGS Left Ventricle Severely increased left ventricular wall thickness. Left ventricular cavity size normal. Reduced global left ventricular systolic function. [place] hypokinetic. Left ventricular ejection fraction is estimated at 35-40%. Right Ventricle Mild right ventricular dilatation. Right ventricular systolic pressure within normal limits. Right Atrium Normal right atrial size. Catheter/pacemaker wire in the right atrial cavity. Left Atrium Mildly increased left atrial volume. Mitral Valve Mild mitral annular calcification. Mild mitral regurgitation. Aortic Valve No aortic stenosis. Mild aortic regurgitation. Tricuspid Valve Structurally normal tricuspid valve. Mild tricuspid regurgitation. Pulmonic Valve Trace pulmonic regurgitation. Pericardium No pericardial effusion. Aorta Normal size aortic root and proximal ascending aorta. CONCLUSIONS Mildly reduced LV systolic function Apical hypokinesis Atypical septal motion on account of pacing Mild RV enlargement Previewed by: Dr. Fredrick Kidd MD (Electronically Signed) Final Date: 21 March 2023 19:01
[2023-03-21 20:35] LABS: Glucose,Whole Blood 240 mg/dL (70-110)
[2023-03-21] MEDS: Insulin Glargine/Lixisenatide [Soliqua 100 Unit-33 Mcg/Ml Pen] 3 ML In SQ SCH (20:39)
[2023-03-21] MEDS: INSULIN ASPART (NovoLOG) 100 UNIT/ML VIAL SQ SCH (20:42)
[2023-03-21] MEDS: QUEtiapine 25 MG TAB PO SCH (20:42)
--- NOTE | 2023-03-22 05:22 | PN ---
PROGRESS NOTE 77-year-old white female, history of atrial fibrillation, coronary disease, heart failure, hypertension, osteoarthritis, presented with generalized weakness. Positive UA concerning for UTI. Denies any fever, chills. breathing comfortably on room air. Denies chest pain, cough. White count 7.02, creatinine 1.3. OBJECTIVE: VITAL SIGNS: Blood pressure white female, BMI is over 30. HEART: S1, S2. LUNGS: breathing. ABDOMEN: Soft. EXTREMITIES: No edema. ASSESSMENT: UTI, generalized weakness, metabolic encephalopathy, dehydration. Urine culture pending. Continue broad-spectrum Rocephin. PROGNOSIS: Guarded. Follow up in next 24 to 48 hours. MMODL / IJN: [id number] /
[2023-03-22 05:54] LABS: Glucose,Whole Blood 196 mg/dL (70-110)
[2023-03-22] MEDS: INSULIN ASPART (NovoLOG) 100 UNIT/ML VIAL SQ SCH ×4 (06:47→21:17)
[2023-03-22] MEDS: FUROSEMIDE 20 MG TAB PO SCH (07:59)
[2023-03-22] MEDS: CALCIUM CARBONATE 500 MG CHEWABLE PO SCH (08:00)
[2023-03-22] MEDS: ASPIRIN 81 MG PO SCH (08:00)
[2023-03-22] MEDS: FERROUS SULFATE 325 MG TAB PO SCH (08:00)
[2023-03-22] MEDS: CHOLECALCIFEROL 125 MCG (5000 IU) TABLET PO SCH (08:00)
[2023-03-22] MEDS: amLODIPine 5 MG TAB PO SCH (08:00)
[2023-03-22] MEDS: levETIRAcetam 500 MG TAB PO SCH ×3 (08:04→21:42)
[2023-03-22] MEDS: PANTOPRAZOLE 40 MG TABLET PO SCH (08:04)
[2023-03-22] MEDS: NYSTATIN 100,000 UNIT/GM POWD 15 GM TOPICAL SCH ×2 (08:04→21:42)
[2023-03-22] MEDS: TAMSULOSIN 0.4 MG CAP.ER.24H PO SCH (08:04)
[2023-03-22] MEDS: IPRATROPIUM-ALBUTEROL 3 ML NEB INHALATION SCH ×4 (08:17→21:23)
[2023-03-22] MEDS: SYMBICORT 160-4.5 MCG INHALER INHALATION SCH ×2 (08:17→21:23)
--- NOTE | 2023-03-22 09:13 | P.PN ---
Subjective HISTORY OF PRESENT ILLNESS: This is a 77-year-old female with a past medical history significant for paroxysmal atrial fibrillation, permanent pacemaker implantation, diabetes, hypertension, and intracranial hemorrhage. Patient follows in the office with Dr. Kidd. We have been asked to see the patient in consultation for bradycardia. Patient examined at the bedside. Patient presented to the hospital for chief complaint of weakness. She has been treated for urinary tract infection. Cardiogenic consulted secondary to bradycardia. However patient has a permanent pacemaker which appears to be functioning appropriately. There has been no episodes of bradycardia. * EKG reveals paced rhythm with underlying atrial fibrillation * Chest xray negative for acute process * Most recent echocardiogram obtained in March 2022 revealing ejection fraction 55%, mild MR, mild TR * Cardiac catheterization history: 2019 with stenting of the proximal LAD 03/22/2023 Patient examined this morning at the bedside. Patient denies chest pain or pressure. She denies shortness of breath. Vital signs are stable. Echocardiogram completed revealing ejection fraction 35-40%, apex is hypokinetic, mild MR, mild TR. Patients pacemaker was interrogated and is functioning properly with appropriate thresholds. PHYSICAL EXAM: VITAL SIGNS: Reviewed. GENERAL: Well-developed in no acute distress. HEENT: Head is normocephalic. Pupils are equal, round. Sclerae anicteric. Mucous membranes of the mouth are moist. Neck supple. No JVD or thyromegaly LUNGS: Respirations even and unlabored. Lungs essentially clear to auscultation bilaterally. HEART: Regular rate and rhythm. S1 and S2 heard. ABDOMEN: Soft. Nondistended. Nontender. EXTREMITIES: Normal range of motion. No clubbing or cyanosis. Peripheral pulses intact. No lower extremity edema NEUROLOGIC: Awake and alert. Oriented x 3. ASSESSMENT: Generalized weakness Urinary tract infection Bradycardia, ruled out, no evidence of bradycardia Paroxysmal atrial fibrillation History of permanent pacemaker implantation, [employer] Hypertension Diabetes History of intracranial hemorrhage New onset cardiomyopathy, ischemic versus nonischemic PLAN: Discontinue amlodipine Begin carvedilol 6.25 mg twice a day Continue additional cardiac medications No further inpatient recommendations from a cardiac standpoint We will sign off. Please reconsult if needed. Nurse practitioner note has been reviewed by physician. Signing provider agrees with the documented findings, assessment, and plan of care. Objective - Vital Signs Vital signs: Vital Signs Temp 98.0 F 03/22/23 02:00 Pulse 63 03/22/23 02:00 Resp 16 03/22/23 02:00 BP 164/81 03/22/23 02:00 Pulse Ox 100 03/22/23 02:00 FiO2 Intake & Output 03/21/23 03/21/23 03/22/23 06:59 18:59 06:59 Intake Total 600 0 Output Total 450 200 Balance -450 600 -200 Intake: Oral 600 0 Output: Urine 450 200 Other: Voiding Method External Catheter Diaper Diaper External Catheter External Catheter # Voids 2 # Bowel Movements 0 - Labs CBC & Chem 7: 03/21/23 06:59 03/21/23 06:59 Labs: Abnormal Lab Results - Last 24 Hours (Table) 03/21/23 03/21/23 03/21/23 Range/Units 06:59 06:59 20:33 Hgb 11.9 L (12.0-15.0) g/dL MCH 24.7 L (27.0-32.0) pg MCHC 29.5 L (32.0-37.0) g/dL RDW 18.4 H (11.5-14.5) % Est GFR (CKD-EPI) 42 L (>=60) Glucose 190 H (70-110) mg/dL POC Glucose (mg/dL) 240 H (70-110) mg/dL AST 8 L (13-35) U/L ALT 7 L (8-44) U/L Total Protein 5.9 L (6.2-8.2) g/dL Albumin 3.7 L (3.8-4.9) g/dL 03/22/23 Range/Units 05:52 Hgb (12.0-15.0) g/dL MCH (27.0-32.0) pg MCHC (32.0-37.0) g/dL RDW (11.5-14.5) % Est GFR (CKD-EPI) (>=60) Glucose (70-110) mg/dL POC Glucose (mg/dL) 196 H (70-110) mg/dL AST (13-35) U/L ALT (8-44) U/L Total Protein (6.2-8.2) g/dL Albumin (3.8-4.9) g/dL
[2023-03-22 11:27] LABS: Glucose,Whole Blood 211 mg/dL (70-110)
[2023-03-22] MEDS: carvediloL 6.25 MG TAB PO SCH ×2 (11:45→18:08)
--- NOTE | 2023-03-22 15:07 | P.PN ---
Subjective Progress Note Date: 03/22/23 Principal diagnosis: Reason for follow-up is UTI Patient is a 77-year-old female with a past medical history significant for atrial fibrillation coronary artery disease heart failure diabetes mellitus hypertension osteoarthritis, patient presented to the hospital for evaluation generalized weakness no energy noticed to have a positive UA concerning for possible UTI. On today's evaluation that is 03/22/2023, the patient remains to be afebrile, the patient is breathing comfortably on room air, the patient denies any chest pain shortness of breath or cough patient denies having any nausea no vomiting did not have any abdominal pain no diarrhea has been reported Patient white count is 7.02, creatinine is 1.3 as of yesterday no lab draw today urine cultures are pending Objective - Vital Signs Vital signs: Vital Signs Temp 98 F 03/22/23 07:02 Pulse 61 03/22/23 08:27 Resp 16 03/22/23 08:27 BP 154/70 03/22/23 07:02 Pulse Ox 96 03/22/23 08:17 FiO2 Intake & Output 03/21/23 03/22/23 03/22/23 18:59 06:59 18:59 Intake Total 600 0 Output Total 200 Balance 600 -200 Intake: Oral 600 0 Output: Urine 200 Other: Voiding Method Diaper Diaper External Catheter External Catheter # Voids 2 # Bowel Movements 0 - Exam GENERAL DESCRIPTION: An elderly female up in the chair in no distress RESPIRATORY SYSTEM: Unlabored breathing , decreased breath sounds at bases HEART: S1 S2 regular rate and rhythm , ABDOMEN: Soft , no tenderness EXTREMITIES: No edema feet - Labs CBC & Chem 7: 03/21/23 06:59 03/21/23 06:59 Labs: Abnormal Lab Results - Last 24 Hours (Table) 03/21/23 03/21/23 03/21/23 Range/Units 06:59 06:59 20:33 Hgb 11.9 L (12.0-15.0) g/dL MCH 24.7 L (27.0-32.0) pg MCHC 29.5 L (32.0-37.0) g/dL RDW 18.4 H (11.5-14.5) % Est GFR (CKD-EPI) 42 L (>=60) Glucose 190 H (70-110) mg/dL POC Glucose (mg/dL) 240 H (70-110) mg/dL AST 8 L (13-35) U/L ALT 7 L (8-44) U/L Total Protein 5.9 L (6.2-8.2) g/dL Albumin 3.7 L (3.8-4.9) g/dL 03/22/23 Range/Units 05:52 Hgb (12.0-15.0) g/dL MCH (27.0-32.0) pg MCHC (32.0-37.0) g/dL RDW (11.5-14.5) % Est GFR (CKD-EPI) (>=60) Glucose (70-110) mg/dL POC Glucose (mg/dL) 196 H (70-110) mg/dL AST (13-35) U/L ALT (8-44) U/L Total Protein (6.2-8.2) g/dL Albumin (3.8-4.9) g/dL Assessment and Plan (1) UTI (urinary tract infection) Current Visit: Yes Status: Acute Code(s): N39.0 - URINARY TRACT INFECTION, SITE NOT SPECIFIED SNOMED Code(s): 00450921 Plan: 1patient presented to hospital with generalized weakness no energy possibly metabolic/dehydration as the patient did have elevated BUN and creatinine patient also have a positive UA but not very clear about any urinary symptoms component of UTI not entirely excluded 2-urine culture has been requested results currently pending 3-patient did have clinical improvement, patient to continue with Rocephin while waiting for the culture to finalize to determine discharge antibiotics Dictation was produced using [employer] medical dictation software. please excuse any grammatical, word or spelling errors. Time with Patient: Less than 30
[2023-03-22 17:01] LABS: Glucose,Whole Blood 204 mg/dL (70-110)
[2023-03-22 21:13] LABS: Glucose,Whole Blood 137 mg/dL (70-110)
[2023-03-22] MEDS: Insulin Glargine/Lixisenatide [Soliqua 100 Unit-33 Mcg/Ml Pen] 3 ML In SQ SCH (21:19)
[2023-03-22] MEDS: QUEtiapine 25 MG TAB PO SCH (21:42)
[2023-03-22] MEDS: CIPROFLOXACIN HCL 250 MG TAB PO SCH (21:42)
[2023-03-22] MEDS: prednisoLONE ACETATE 1% OPHTH DROPS 5 ML BTL BOTH EYES SCH (21:42)
--- NOTE | 2023-03-23 03:44 | DS ---
DISCHARGE SUMMARY DISCHARGE MEDICINES: 1. Nystatin powder b.i.d. 2. NovoLog a.c. h.s. 3. Coreg 6.25 b.i.d. 4. Protonix 40 daily. 5. Trelegy to 1 puff daily. 6. Aspirin 81 daily. 7. Tylenol 500 q.6h p.r.n. pain or fever. 8. Soliqua 15 units daily. 9. DuoNeb updrafts q.i.d. around the clock. 10.Oxygen 2 L nocturnal sleeping or napping. 11.Seroquel 75 at q.h.s. 12.Flomax 0.4 daily. 13.Ventolin HFA daily. 14.Vitamin D3 daily. Ambulate as tolerated. Prognosis guarded. Pred Forte 1 drop both eyes 3 times a day. The patient came to the hospital with altered mental status, UTI, treated with IV antibiotics, possibly switch to oral antibiotics and discharged for another 2 weeks. Medications were reviewed. She will follow up with urine culture while she was at the senior care. She will need to go get physical therapy at the rehab center prior to going home with her son. Prognosis guarded. Ambulate as tolerated. Main thing is to keep her on her breathing treatments 4 times a day, do the antibiotics with possible Cipro 250 b.i.d. for 10 more days and make her wear oxygen at nighttime for nocturnal oxygen when she is sleeping. Prognosis guarded. MMODL / IJN: [id number] /
[2023-03-23 06:03] LABS: Glucose,Whole Blood 167 mg/dL (70-110)
[2023-03-23] MEDS: PANTOPRAZOLE 40 MG TABLET PO SCH (06:47)
[2023-03-23] MEDS: INSULIN ASPART (NovoLOG) 100 UNIT/ML VIAL SQ SCH ×2 (06:47→12:18)
[2023-03-23] MEDS: carvediloL 6.25 MG TAB PO SCH (06:47)
[2023-03-23] MEDS: IPRATROPIUM-ALBUTEROL 3 ML NEB INHALATION SCH ×2 (07:48→11:25)
[2023-03-23] MEDS: SYMBICORT 160-4.5 MCG INHALER INHALATION SCH (07:49)
[2023-03-23] MEDS: NYSTATIN 100,000 UNIT/GM POWD 15 GM TOPICAL SCH (08:13)
[2023-03-23 08:22] VITALS: BP 135/72; RESP 19; TEMP 98.3
[2023-03-23] MEDS: levETIRAcetam 500 MG TAB PO SCH (09:31)
[2023-03-23] MEDS: FUROSEMIDE 20 MG TAB PO SCH (09:31)
[2023-03-23] MEDS: ASPIRIN 81 MG PO SCH (09:31)
[2023-03-23] MEDS: CHOLECALCIFEROL 125 MCG (5000 IU) TABLET PO SCH (09:31)
[2023-03-23] MEDS: TAMSULOSIN 0.4 MG CAP.ER.24H PO SCH (09:32)
[2023-03-23] MEDS: CIPROFLOXACIN HCL 250 MG TAB PO SCH (09:32)
[2023-03-23] MEDS: FERROUS SULFATE 325 MG TAB PO SCH (09:32)
[2023-03-23] MEDS: CALCIUM CARBONATE 500 MG CHEWABLE PO SCH (09:32)
[2023-03-23 11:43] VITALS: PULSE 60
[2023-03-23 12:03] LABS: Glucose,Whole Blood 187 mg/dL (70-110)
[2023-03-23 12:42] LABS: ALT 6 U/L (8-44); AST 10 U/L (13-35); Albumin 3.5 g/dL (3.8-4.9); Albumin/Globulin Ratio 1.52 Ratio (1.60-3.17); Alkaline Phosphatase 94 U/L (41-126); BUN/Creat Ratio 19.73 Ratio (12.00-20.00); Blood Urea Nitrogen 21.7 mg/dL (9.0-27.0); Calcium 9.4 mg/dL (8.7-10.3); Carbon Dioxide 28.3 mmol/L (21.6-31.8); Chloride 100 mmol/L (96-109); Globulin 2.3 g/dL (1.6-3.3); Glucose 185 mg/dL (70-110); Potassium 4.1 mmol/L (3.5-5.5); Sodium 140 mmol/L (135-145); Total Bilirubin 0.4 mg/dL (0.3-1.2); Total Protein 5.8 g/dL (6.2-8.2)
[2023-03-23 13:08] LABS: Basophils # (A) 0.05 X 10*3/uL (0.00-0.10); Basophils % (A) 0.6 %; Eosinophils # (A) 0.19 X 10*3/uL (0.04-0.35); Eosinophils % (A) 2.2 %; HCT 41.5 % (37.2-46.3); HGB 12.2 g/dL (12.0-15.0); Lymphocytes # (A) 1.76 X 10*3/uL (0.90-5.00); Lymphocytes % (A) 20.8 %; MCH 24.7 pg (27.0-32.0); MCHC 29.4 g/dL (32.0-37.0); Mean Platelet Volume 10.8 FL (9.5-12.2); Monocytes # (A) 0.86 X 10*3/uL (0.20-1.00); Monocytes % (A) 10.2 %; NRBC Per 100 WBC 0 X 10*3/uL (0.00-0.01); Neutrophils # (A) 5.57 X 10*3/uL (1.80-7.70); Neutrophils % (A) 65.8 %; Platelet Count 172 X 10*3/uL (140-440); RBC 4.94 X 10*6/uL (4.10-5.20); WBC 8.46 X 10*3/uL (4.50-10.00)
== END 2023-03-23 12:48 ==
LOC: EC 12:48 → 4SSUR 15:45 → 1SOBS 03-19 02:41 → 4SSUR 03-19 02:51
PROVIDERS: ADMIT Family Medicine; ATTEND Family Medicine
DX: N39.0 Urinary tract infection, site not specified (principal); G93.41 Metabolic encephalopathy; E86.0 Dehydration; R00.1 Bradycardia, unspecified; I25.10 Atherosclerotic heart disease of native coronary artery without angina pectoris; I13.0 Hypertensive heart and chronic kidney disease with heart failure and stage 1 through stage 4 chronic kidney disease, or unspecified chronic kidney disease; I50.33 Acute on chronic diastolic (congestive) heart failure; N18.30 Chronic kidney disease, stage 3 unspecified; I48.0 Paroxysmal atrial fibrillation; E11.40 Type 2 diabetes mellitus with diabetic neuropathy, unspecified; E11.22 Type 2 diabetes mellitus with diabetic chronic kidney disease; F41.9 Anxiety disorder, unspecified; F32.A Depression, unspecified; R26.2 Difficulty in walking, not elsewhere classified; Z85.828 Personal history of other malignant neoplasm of skin; Z86.73 Personal history of transient ischemic attack (TIA), and cerebral infarction without residual deficits; Z95.0 Presence of cardiac pacemaker; Z95.5 Presence of coronary angioplasty implant and graft; Z79.4 Long term (current) use of insulin; Z79.51 Long term (current) use of inhaled steroids; Z79.82 Long term (current) use of aspirin; Z79.899 Other long term (current) drug therapy; Z88.2 Allergy status to sulfonamides; Z91.040 Latex allergy status
CPT/HCPCS: 96366 ×4; 96372 ×3; 96376; 96361; 96365; 99285; 36415; 94640 ×10; 94760 ×2; 93005; 97530 ×2; 97162; 97166; 80053 ×3; 83605; 83735; 84484; 85025 ×3; 81001; 87086; 87077; 87186; 71046; G0378 ×6; C8929; J0696 ×6; Q9957; 93306

== ENCOUNTER 2023-04-14 17:27 | Inpatient (IN) | payer MEDICARE ==
--- NOTE | 2023-04-14 17:56 | ED ---
General Adult HPI - General Chief complaint: Weakness Stated complaint: Weakness Time Seen by Provider: 04/14/23 17:41 Source: patient, EMS, RN notes reviewed, old records reviewed - History of Present Illness Initial comments: 77 yo female who had been admitted to the hospital several weeks ago with zuleyma kumar she was ultimately discharged to [facility] and went home to her primary residence today. Patient states she is unable to ambulate and has significant weakness in that she has not at all better. Denies any specific physical complaints, no chest pain or abdominal pain. No vomiting. No fever. No cough. No focal weakness. No headache - Related Data Home Medications Medication Instructions Recorded Confirmed Insulin Glargine/Lixisenatide 15 units SQ HS 10/12/21 04/14/23 [Soliqua 100 Unit-33 Mcg/ml Pen] Albuterol Sulfate [Ventolin HFA] 2 puff INHALATION RT-Q6H PRN 05/29/22 04/14/23 Aspirin EC [Ecotrin Low Dose] 81 mg PO DAILY 05/29/22 04/14/23 Fluticasone/Umeclidin/Vilanter 1 puff INHALATION RT-DAILY 05/29/22 04/14/23 [Trelegy Ellipta 200-62.5-25] Acetaminophen Tab [Tylenol] 500 - 1,000 mg PO Q6H PRN 10/11/22 04/14/23 Cholecalciferol [Vitamin D3 (125 250 mcg PO DAILY 10/11/22 04/14/23 Mcg = 5000 Iu)] levETIRAcetam [Keppra] 500 mg PO Q8H 10/11/22 04/14/23 Ipratropium-Albuterol Nebulize 3 ml INHALATION RT-Q6H PRN 01/20/23 04/14/23 [Duoneb 0.5 mg-3 mg/3 ml Soln] Calcium Carbonate [Calcium] 600 mg PO DAILY 03/18/23 04/14/23 Ferrous Sulfate [Iron (65 MG 325 mg PO DAILY 03/18/23 04/14/23 Elemental)] QUEtiapine [SEROquel] 75 mg PO HS 03/18/23 04/14/23 Tamsulosin [Flomax] 0.4 mg PO DAILY 03/18/23 04/14/23 prednisoLONE ACETATE 1% OPHTH 1 drop BOTH EYES SUMOWEFR@2100 03/18/23 04/14/23 [Pred Forte 1%] Atorvastatin [Lipitor] 10 mg PO HS 04/14/23 04/14/23 Clopidogrel [Plavix] 75 mg PO DAILY 04/14/23 04/14/23 INSULIN ASPART (NovoLOG) [NovoLOG See Protocol SQ ACHS 04/14/23 04/14/23 (formulary)] Lansoprazole [Prevacid] 15 mg PO DAILY 04/14/23 04/14/23 Miconazole 2% Powder 1 applic TOPICAL BID 04/14/23 04/14/23 Previous Rx's Medication Instructions Recorded Furosemide [Lasix] 20 mg PO DAILY 90 Days #90 tab 01/30/23 carvediloL [Coreg] 6.25 mg PO BID-W/MEALS 30 Days #60 03/22/23 tab Allergies Allergy/AdvReac Type Severity Reaction Status Date / Time lactose Allergy Diarrhea Verified 04/14/23 18:17 Latex, Natural Rubber Allergy Itching Verified 04/14/23 18:17 sulfamethoxazole Allergy Rash/Hives Verified 04/14/23 18:17 [From Bactrim] trimethoprim [From Bactrim] Allergy Rash/Hives Verified 04/14/23 18:17 Review of Systems ROS Statement: Those systems with pertinent positive or pertinent negative responses have been documented in the HPI. ROS Other: All systems not noted in ROS Statement are negative. Past Medical History Past Medical History: Atrial Fibrillation, Asthma, Coronary Artery Disease (CAD), Cancer, Heart Failure, CVA/TIA, Diabetes Mellitus, Eye Disorder, H ypertension, Osteoarthritis (OA), Renal Disease, Seizure Disorder Additional Past Medical History / Comment(s): Brain mass/fall with intracranial bleed/hematome-surgery at [facility], seizure after brain surgery, paroxysmal Afib, DM type II, neuropathy bilateral feet, orthostatic hypotension, SSS with pacemaker, L1 compression fx, CKD stage III, blind in L eye, UTIs, lower GI bleed, gastritis, gastric erosion, CDiff colitis, skin cancer with removals, past L arm fracture, past R arm fracture x2. History of Any Multi-Drug Resistant Organisms: MRSA Date of last positivie culture/infection: 01/26/19 MDRO Source:: URINE Past Surgical History: Cholecystectomy, Heart Catheterization, Heart Catheterization With Stent, Hysterectomy, Pacemaker Additional Past Surgical History / Comment(s): Evacuation of intracranial hematoma and ressection of hemorrhagic mass, pacemaker 2016, PCI with stent 06/06/18, EGD/colonoscopy, R eye corneal implant/cataract removal, EGD 06/2018, colonoscopy, skin cancer removal. Past Anesthesia/Blood Transfusion Reactions: No Reported Reaction Additional Past Anesthesia/Blood Transfusion Reaction / Comment(s): . Date of Last Stent Placement:: 06/06/18 Type of Cardiac Device: Permanent Pacemaker Device Placement Date:: 04/2016 Past Psychological History: Anxiety, Depression Smoking Status: Never smoker Past Alcohol Use History: None Reported Past Drug Use History: None Reported - Past Family History Mother Family Medical History: Cancer, COPD, Hypertension Additional Family Medical History / Comment(s): Mother had bone cancer. Father Family Medical History: Cancer, Hypertension Additional Family Medical History / Comment(s): Father had skin cancer. General Exam General appearance: alert, in no apparent distress Head exam: Present: atraumatic, normocephalic Eye exam: Present: normal appearance, PERRL ENT exam: Present: mucous membranes moist Neck exam: Present: normal inspection. Absent: tenderness, meningismus Respiratory exam: Present: normal lung sounds bilaterally. Absent: respiratory distress Cardiovascular Exam: Present: regular rate, normal rhythm GI/Abdominal exam: Present: soft. Absent: distended, tenderness Extremities exam: Present: normal inspection. Absent: pedal edema Neurological exam: Present: alert, oriented X3, CN II-XII intact. Absent: motor sensory deficit Psychiatric exam: Present: normal affect, normal mood Skin exam: Present: warm, dry Course Vital Signs 04/14/23 04/14/23 04/14/23 17:32 19:01 19:27 Temperature 98.1 F 97.5 F L Pulse Rate 60 60 60 Respiratory 18 18 16 Rate Blood Pressure 139/67 138/70 104/57 O2 Sat by Pulse 93 L 98 95 Oximetry Medical Decision Making - Medical Decision Making Was pt. sent in by a medical professional or institution (, PA, MECHANICAL ENGINEERING SPECIALIST, urgent care, hospital, or [facility]...) When possible be specific @ -No Did you speak to anyone other than the patient for history (EMS, parent, family, police, friend...)? What history was obtained from this source @ -No Did you review nursing and triage notes (agree or disagree)? Why? @ -I reviewed and agree with nursing and triage notes Were old charts reviewed (outside hosp., previous admission, EMS record, old EKG, old radiological studies, urgent care reports/EKG's, [facility] records)? Report findings @ -No old charts were reviewed Differential Diagnosis (chest pain, altered mental status, abdominal pain women, abdominal pain men, vaginal bleeding, weakness, fever, dyspnea, syncope, headac he, dizziness, GI bleed, back pain, seizure, CVA, palpatations, mental health, musculoskeletal)? @ -Differential Weakness: Hypoglycemia, shock, sepsis, hyponatremia, anemia, infection, AR, ETOH, adverse medicine reaction, overdose, stroke, this is not meant to be an all-inclusive list. EKG interpreted by me (3pts min.). @ -Paced rhythm rate of 60 QRS duration 200, QTC 550 X-rays interpreted by me (1pt min.). @ -Chest x-ray negative for acute cardiac primary findings CT interpreted by me (1pt min.). @ -None done U/S interpreted by me (1pt. min.). @ -None done What testing was considered but not performed or refused? (CT, X-rays, U/S, labs)? Why? @ -None What meds were considered but not given or refused? Why? @ -None Did you discuss the management of the patient with other professionals (professionals i.e. , PA, MECHANICAL ENGINEERING SPECIALIST, lab, RT, psych nurse, clinical social worker, lens grinder, teacher, associate loan officer, telehealth case manager)? Give summary @ [facility] Was smoking cessation discussed for >3mins.? @ -No Was critical care preformed (if so, how long)? @ -No Were there social determinants of health that impacted care today? How? (Homelessness, low income, unemployed, alcoholism, drug addiction, transportation, low edu. Level, literacy, decrease access to med. care, [place] [facility], rehab)? @ -No Was there de-escalation of care discussed even if they declined (Discuss DNR or withdrawal of care, Hospice)? DNR status @ -No What co-morbidities impacted this encounter? (DM, HTN, Smoking, COPD, CAD, Cancer, CVA, ARF, Chemo, Hep., AIDS, mental health diagnosis, sleep apnea, morbid obesity)? @ -Debility, hypertension, diabetes Was patient admitted / discharged? Hospital course, mention meds given and route, prescriptions, significant lab abnormalities, going to OR and other pertinent info. @ -[77-year-old female, discharged from [facility] today with weakness and inability to ambulate or take care of herself at home. Testing in the emergency department does reveal mild achy with dehydration. Otherwise unremarkable. Patient may require further assistance at home or [facility] placement. Undiagnosed new problem with uncertain prognosis? @ -No Drug Therapy requiring intensive monitoring for toxicity (Heparin, Nitro, Insulin, Cardizem)? @ -No Were any procedures done? @ -No Diagnosis/symptom? @ -Weakness, dehydration Acute, or Chronic, or Acute on Chronic? @ -[Chronic Uncomplicated (without systemic symptoms) or Complicated (systemic symptoms)? @ -default Side effects of treatment? @ -No Exacerbation, Progression, or Severe Exacerbation? @ -No Poses a threat to life or bodily function? How? (Chest pain, USA, AR, pneumonia, PE, COPD, DKA, ARF, appy, cholecystitis, CVA, Diverticulitis, Homicidal, Suicidal, threat to staff... and all critical care pts) @ -[Moderate risk - Lab Data Result diagrams: 04/14/23 17:53 04/14/23 17:53 Lab Results 04/14/23 04/14/23 04/14/23 Range/Units 17:53 17:53 17:53 WBC 6.1 (3.8-10.6) k/uL RBC 5.61 H (3.80-5.40) m/uL Hgb 14.4 (11.4-16.0) gm/dL Hct 46.4 H (34.0-46.0) % MCV 82.7 (80.0-100.0) fL MCH 25.7 (25.0-35.0) pg MCHC 31.0 (31.0-37.0) g/dL RDW 17.2 H (11.5-15.5) % Plt Count 183 (150-450) k/uL MPV 8.3 Neutrophils % 65 % Lymphocytes % 23 % Monocytes % 7 % Eosinophils % 2 % Basophils % 1 % Neutrophils # 4.0 (1.3-7.7) k/uL Lymphocytes # 1.4 (1.0-4.8) k/uL Monocytes # 0.4 (0-1.0) k/uL Eosinophils # 0.1 (0-0.7) k/uL Basophils # 0.1 (0-0.2) k/uL Hypochromasia Moderate Anisocytosis Slight PT 11.3 (10.0-12.5) sec INR 1.0 (<1.2) APTT 21.8 L (22.0-30.0) sec Sodium 139 (137-145) mmol/L Potassium 3.9 (3.5-5.1) mmol/L Chloride 100 (98-107) mmol/L Carbon Dioxide 32 H (22-30) mmol/L Anion Gap 7 mmol/L BUN 26 H (7-17) mg/dL Creatinine 1.36 H (0.52-1.04) mg/dL Est GFR (CKD-EPI)AfAm 43 (>60 ml/min/1.73 sqM) Est GFR (CKD-EPI)NonAf 37 (>60 ml/min/1.73 sqM) Glucose 235 H (74-99) mg/dL Plasma Lactic Acid Hema (0.7-2.0) mmol/L Calcium 9.2 (8.4-10.2) mg/dL Magnesium 1.9 (1.6-2.3) mg/dL Total Bilirubin 0.6 (0.2-1.3) mg/dL AST 22 (14-36) U/L ALT 13 (4-34) U/L Alkaline Phosphatase 85 (38-126) U/L Troponin I (0.000-0.034) ng/mL Total Protein 6.4 (6.3-8.2) g/dL Albumin 3.7 (3.5-5.0) g/dL Urine Color Urine Appearance (Clear) Urine pH (5.0-8.0) Ur Specific [place] (1.001-1.035) Urine Protein (Negative) Urine Glucose (UA) (Negative) Urine Ketones (Negative) Urine Blood (Negative) Urine Nitrite (Negative) Urine Bilirubin (Negative) Urine Urobilinogen (<2.0) mg/dL Ur Leukocyte Esterase (Negative) Urine RBC (0-5) /hpf Urine WBC (0-5) /hpf Ur Squamous Epith Cells (0-4) /hpf Hyaline Casts (0-2) /lpf Urine Mucus (None) /hpf 04/14/23 04/14/23 04/14/23 Range/Units 17:53 17:53 19:27 WBC (3.8-10.6) k/uL RBC (3.80-5.40) m/uL Hgb (11.4-16.0) gm/dL Hct (34.0-46.0) % MCV (80.0-100.0) fL MCH (25.0-35.0) pg MCHC (31.0-37.0) g/dL RDW (11.5-15.5) % Plt Count (150-450) k/uL MPV Neutrophils % % Lymphocytes % % Monocytes % % Eosinophils % % Basophils % % Neutrophils # (1.3-7.7) k/uL Lymphocytes # (1.0-4.8) k/uL Monocytes # (0-1.0) k/uL Eosinophils # (0-0.7) k/uL Basophils # (0-0.2) k/uL Hypochromasia Anisocytosis PT (10.0-12.5) sec INR (<1.2) APTT (22.0-30.0) sec Sodium (137-145) mmol/L Potassium (3.5-5.1) mmol/L Chloride (98-107) mmol/L Carbon Dioxide (22-30) mmol/L Anion Gap mmol/L BUN (7-17) mg/dL Creatinine (0.52-1.04) mg/dL Est GFR (CKD-EPI)AfAm (>60 ml/min/1.73 sqM) Est GFR (CKD-EPI)NonAf (>60 ml/min/1.73 sqM) Glucose (74-99) mg/dL Plasma Lactic Acid Hema 1.3 (0.7-2.0) mmol/L Calcium (8.4-10.2) mg/dL Magnesium (1.6-2.3) mg/dL Total Bilirubin (0.2-1.3) mg/dL AST (14-36) U/L ALT (4-34) U/L Alkaline Phosphatase (38-126) U/L Troponin I 0.031 (0.000-0.034) ng/mL Total Protein (6.3-8.2) g/dL Albumin (3.5-5.0) g/dL Urine Color Yellow Urine Appearance Clear (Clear) Urine pH 5.5 (5.0-8.0) Ur Specific [place] 1.017 (1.001-1.035) Urine Protein Negative (Negative) Urine Glucose (UA) Negative (Negative) Urine Ketones Negative (Negative) Urine Blood Negative (Negative) Urine Nitrite Negative (Negative) Urine Bilirubin Negative (Negative) Urine Urobilinogen <2.0 (<2.0) mg/dL Ur Leukocyte Esterase Small H (Negative) Urine RBC 1 (0-5) /hpf Urine WBC 9 H (0-5) /hpf Ur Squamous Epith Cells 2 (0-4) /hpf Hyaline Casts 4 H (0-2) /lpf Urine Mucus Rare H (None) /hpf Disposition Clinical Impression: Weakness, Acute kidney injury Disposition: ADMITTED IP TO THIS [facility] Condition: Stable Is patient prescribed a controlled substance at d/c from ED?: No Referrals: Vikram Zamarripa MD [Primary Care Provider] - 1-2 days Time of Disposition: 20:39
[2023-04-14 18:34] LABS: Anisocytosis Slight; Basophils # (A) 0.1 k/uL (0-0.2); Basophils % (A) 1 %; Eosinophils # (A) 0.1 k/uL (0-0.7); Eosinophils % (A) 2 %; HCT 46.4 % (34.0-46.0); HGB 14.4 gm/dL (11.4-16.0); Hypochromasia Moderate; Lymphocytes # (A) 1.4 k/uL (1.0-4.8); Lymphocytes % (A) 23 %; MCH 25.7 pg (25.0-35.0); MCV 82.7 fL (80.0-100.0); Mean Platelet Volume 8.3; Monocytes # (A) 0.4 k/uL (0-1.0); Monocytes % (A) 7 %; Neutrophils % (A) 65 %; Platelet Count 183 k/uL (150-450); RBC 5.61 m/uL (3.80-5.40); RDW 17.2 % (11.5-15.5); WBC 6.1 k/uL (3.8-10.6)
[2023-04-14 18:40] LABS: ALT 13 U/L (4-34); AST 22 U/L (14-36); African American GFR (CKD) 43 (>60 ml/min/1.73 sqM); Albumin 3.7 g/dL (3.5-5.0); Alkaline Phosphatase 85 U/L (38-126); Anion Gap 7 mmol/L; Blood Urea Nitrogen 26 mg/dL (7-17); Calcium 9.2 mg/dL (8.4-10.2); Carbon Dioxide 32 mmol/L (22-30); Chloride 100 mmol/L (98-107); Glucose 235 mg/dL (74-99); Magnesium 1.9 mg/dL (1.6-2.3); Non-African American GFR(CKD) 37 (>60 ml/min/1.73 sqM); Potassium 3.9 mmol/L (3.5-5.1); Sodium 139 mmol/L (137-145); Total Bilirubin 0.6 mg/dL (0.2-1.3); Total Protein 6.4 g/dL (6.3-8.2)
[2023-04-14 19:03] LABS: Partial Thromboplastin Time 21.8 sec (22.0-30.0); Prothrombin Time 11.3 sec (10.0-12.5)
--- NOTE | 2023-04-14 19:55 | XR ---
EXAMINATION TYPE: XR chest 2V DATE OF EXAM: 04/14/2023 6:45 PM CLINICAL INDICATION:Female, 77 years old with history of Weakness; H COMPARISON: 03/18/2023 TECHNIQUE: XR chest 2V. Frontal and lateral views of the chest.. FINDINGS: Lines/Tubes/Devices: No indwelling lines are seen. Two lead cardiac conduction device overlying the left hemithorax with l ead tips projecting over the right ventricle and right atrium. EKG leads overlie the chest. Heart/mediastinum: Heart appears mildly enlarged. Mediastinum appears stable. Pulmonary vascularity: Not increased, Lungs/Pleura: There is no evidence of pleural effusion, focal consolidation, or pneumothorax. Musculoskeletal: No acute osseous abnormality demonstrated in the limits of the exam. Chronic degene rative changes of the shoulders with possible remote traumatic injuries. Mild degenerative changes of the spine. Generalized osteopenia. Other findings: None. IMPRESSION: No acute findings, or significant interval change.
[2023-04-14 20:01] LABS: Appearance,Urine Clear (Clear); Bilirubin,Urine Negative (Negative); Blood,Urine Negative (Negative); Color,Urine Yellow; Glucose,Urine (UA) Negative (Negative); Hyaline Casts,Urine 4 /lpf (0-2); Ketones,Urine Negative (Negative); Leukocyte Esterase,Urine Small (Negative); Mucus,Urine Rare /hpf; Nitrite,Urine Negative (Negative); PH, Urine 5.5 (5.0-8.0); Protein,Urine Negative (Negative); RBC,Urine 1 /hpf (0-5); Specific Gravity,Urine 1.017 (1.001-1.035); Squamous Epithelial Cell,Urine 2 /hpf (0-4); Urobilinogen,Urine <2.0 mg/dL (<2.0); WBC,Urine 9 /hpf (0-5)
[2023-04-14] MEDS: SODIUM CHLORIDE 0.9% 1,000 ML IV SCH (20:21)
[2023-04-14] MEDS ORDERED: NALOXONE 0.4 MG/ML 1 ML VIAL IV PRN (20:36)
[2023-04-14] MEDS ORDERED: ALBUTEROL HFA INHALER INHALATION PRN (22:00)
[2023-04-14] MEDS: ATORVASTATIN 10 MG TAB PO SCH (23:04)
[2023-04-14] MEDS: QUEtiapine 25 MG TAB PO SCH (23:04)
[2023-04-14] MEDS: prednisoLONE ACETATE 1% OPHTH DROPS 5 ML BTL BOTH EYES SCH (23:39)
[2023-04-15 05:47] LABS: Glucose,Whole Blood 160 mg/dL (70-110)
[2023-04-15] MEDS: INSULIN ASPART (NovoLOG) 100 UNIT/ML VIAL SQ SCH (06:38)
[2023-04-15] MEDS: carvediloL 6.25 MG TAB PO SCH (06:39)
[2023-04-15] MEDS: PANTOPRAZOLE 40 MG TABLET PO SCH (06:39)
[2023-04-15] MEDS: CLOPIDOGREL 75 MG TAB PO SCH (08:09)
[2023-04-15] MEDS: CHOLECALCIFEROL 125 MCG (5000 IU) TABLET PO SCH (08:09)
[2023-04-15] MEDS: ASPIRIN 81 MG PO SCH (08:09)
[2023-04-15] MEDS: FERROUS SULFATE 325 MG TAB PO SCH (08:09)
[2023-04-15] MEDS: CALCIUM CARBONATE 500 MG CHEWABLE PO SCH (08:10)
[2023-04-15] MEDS: IPRATROPIUM-ALBUTEROL 3 ML NEB INHALATION PRN (08:16)
[2023-04-15] MEDS: ACETAMINOPHEN TAB 325 MG TAB PO PRN (08:20)
[2023-04-15] MEDS: levETIRAcetam 500 MG TAB PO SCH (09:01)
[2023-04-15] MEDS: NYSTATIN 100,000 UNIT/GM POWD 15 GM TOPICAL SCH (09:04)
--- NOTE | 2023-04-15 11:41 | P.HPIM ---
History of Present Illness H&P Date: 04/15/23 History of present illness; patient 77-year-old lady with past medical significant for diabetes mellitus, COPD who presented to the ER for generalized weakness and failure to thrive. Patient stated that she was in the hospital a few weeks ago at which time she was discharged to half-way for therapy. Patient completed therapy and was discharged to her home yesterday but after arriving there patient continued to feel weak and unsafe of living alone. Patient stated she is unable to ambulate and feels likely she is going to fall. Denies any lightheadedness or dizziness. Patient denies any fever or chills. There was no complaint of chest pain or shortness of breath. Initial lab work done in the ER showed WBC 6.1, hemoglobin 14.4, platelet count 183, sodium 139, potassium 3.9, BUN 26, creatinine 1.36, glucose 235, calcium 9.2, magnesium 1.9, alk phos 85 UA negative for infection EKG done in the ER showed heart rate of 60, ventricular pacemaker rhythm, no ST segment elevation or depression seen, no T-wave inversions seen. Chest x-ray done in the ER showed no acute findings Patient admitted to internal medicine service REVIEW OF SYSTEMS: CONSTITUTIONAL: As mentioned above HEENT: No recent visual problems or hearing problems. Denied any sore throat. CARDIOVASCULAR: No chest pain, orthopnea, PND, no palpitations, no syncope. PULMONARY: No shortness of breath, no cough, no hemoptysis. GASTROINTESTINAL: No diarrhea, no nausea, no vomiting, no abdominal pain. NEUROLOGICAL: No headaches, no weakness, no numbness. HEMATOLOGICAL: Denies any bleeding or petechiae. GENITOURINARY: Denies any burning micturition, frequency, or urgency. MUSCULOSKELETAL/RHEUMATOLOGICAL: Denies any joint pain, swelling, or any muscle pain. ENDOCRINE: Denies any polyuria or polydipsia. The rest of the 14-point review of systems is negative. PHYSICAL EXAMINATION: GENERAL: The patient is alert and oriented x3, not in any acute distress. Well developed, well nourished. HEENT: Pupils are round and equally reacting to light. EOMI. No scleral icterus. No conjunctival pallor. Normocephalic, atraumatic. No pharyngeal erythema. No thyromegaly. CARDIOVASCULAR: S1 and S2 present. No murmurs, rubs, or gallops. PULMONARY: Chest is clear to auscultation, no wheezing or crackles. ABDOMEN: Soft, nontender, nondistended, normoactive bowel sounds. No palpable organomegaly. MUSCULOSKELETAL: No joint swelling or deformity. EXTREMITIES: No cyanosis, clubbing, or pedal edema. NEUROLOGICAL: Gross neurological examination did not reveal any focal deficits. SKIN: No rashes. Assessment and plan Generalized weakness lethargy Debility Failure to thrive Acute kidney injury Monitor vital signs Monitor CBC Monitor CMP Fall precaution Continue IV fluids Continue Coreg Continue aspirin Lipitor Resume home meds Continue Deyanira PT and OT consulted consult case management for placement Labs and medication were reviewed.. Continue same treatment. Continue with symptomatic treatment. Resume home medication. Monitor labs and vitals. DVT and GI prophylaxis. Further recommendations as per clinical course of the patient Dictation was produced using [employer] dictation software. please excuse any grammatical, word or spelling errors. 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 History of Any Multi-Drug Resistant Organisms: MRSA Date of last positivie culture/infection: 01/26/19 MDRO Source:: URINE Past Surgical History: Cholecystectomy, Heart Catheterization, Heart Catheteri zation With Stent, Hysterectomy, Pacemaker Additional Past Surgical History / Comment(s): Evacuation of intracranial hematoma and ressection of hemorrhagic mass, pacemaker 2016, PCI with stent 06/06/18, EGD/colonoscopy, R eye corneal implant/cataract removal, EGD 06/2018, colonoscopy, skin cancer removal. Past Anesthesia/Blood Transfusion Reactions: No Reported Reaction Additional Past Anesthesia/Blood Transfusion Reaction / Comment(s): . Date of Last Stent Placement:: 06/06/18 Type of Cardiac Device: Permanent Pacemaker Device Placement Date:: 04/2016 Past Psychological History: Anxiety, Depression Additional Psychological History / Comment(s): She uses a walker and has a wheelchair for longer distaces. She no longer drives, her family drives her to [employer]. Her son manages her medications. Smoking Status: Never smoker Past Alcohol Use History: None Reported Past Drug Use History: None Reported - Past Family History Mother Family Medical History: Cancer, COPD, Hypertension Additional Family Medical History / Comment(s): Mother had bone cancer. Father Family Medical History: Cancer, Hypertension Additional Family Medical History / Comment(s): Father had skin cancer. Medications and Allergies Home Medications Medication Instructions Recorded Confirmed Type Insulin Glargine/Lixisenatide 15 units SQ HS 10/12/21 04/14/23 History [Soliqua 100 Unit-33 Mcg/ml Pen] Albuterol Sulfate [Ventolin HFA] 2 puff INHALATION RT-Q6H PRN 05/29/22 04/14/23 History Aspirin EC [Ecotrin Low Dose] 81 mg PO DAILY 05/29/22 04/14/23 History Fluticasone/Umeclidin/Vilanter 1 puff INHALATION RT-DAILY 05/29/22 04/14/23 History [Trelegy Ellipta 200-62.5-25] Acetaminophen Tab [Tylenol] 500 - 1,000 mg PO Q6H PRN 10/11/22 04/14/23 History Cholecalciferol [Vitamin D3 (125 250 mcg PO DAILY 10/11/22 04/14/23 History Mcg = 5000 Iu)] levETIRAcetam [Keppra] 500 mg PO Q8H 10/11/22 04/14/23 History Ipratropium-Albuterol Nebulize 3 ml INHALATION RT-Q6H PRN 01/20/23 04/14/23 History [Duoneb 0.5 mg-3 mg/3 ml Soln] Furosemide [Lasix] 20 mg PO DAILY 90 Days #90 tab 01/30/23 04/14/23 Rx Calcium Carbonate [Calcium] 600 mg PO DAILY 03/18/23 04/14/23 History Ferrous Sulfate [Iron (65 MG 325 mg PO DAILY 03/18/23 04/14/23 History Elemental)] QUEtiapine [SEROquel] 75 mg PO HS 03/18/23 04/14/23 History Tamsulosin [Flomax] 0.4 mg PO DAILY 03/18/23 04/14/23 History prednisoLONE ACETATE 1% OPHTH 1 drop BOTH EYES SUMOWEFR@2100 03/18/23 04/14/23 History [Pred Forte 1%] carvediloL [Coreg] 6.25 mg PO BID-W/MEALS 30 Days #60 03/22/23 04/14/23 Rx tab Atorvastatin [Lipitor] 10 mg PO HS 04/14/23 04/14/23 History Clopidogrel [Plavix] 75 mg PO DAILY 04/14/23 04/14/23 History INSULIN ASPART (NovoLOG) [NovoLOG See Protocol SQ ACHS 04/14/23 04/14/23 History (formulary)] Lansoprazole [Prevacid] 15 mg PO DAILY 04/14/23 04/14/23 History Miconazole 2% Powder 1 applic TOPICAL BID 04/14/23 04/14/23 History Allergies Allergy/AdvReac Type Severity Reaction Status Date / Time lactose Allergy Diarrhea Verified 04/14/23 18:17 Latex, Natural Rubber Allergy Itching Verified 04/14/23 18:17 sulfamethoxazole Allergy Rash/Hives Verified 04/14/23 18:17 [From Bactrim] trimethoprim [From Bactrim] Allergy Rash/Hives Verified 04/14/23 18:17 Physical Exam Vitals: Vital Signs Temp Pulse Pulse Resp BP BP Pulse Ox 04/15/23 08:29 60 04/15/23 08:18 64 92 L 04/15/23 07:33 97.5 F L 60 16 143/72 99 04/15/23 01:30 98.6 F 60 18 141/58 98 04/14/23 21:29 97.9 F 60 18 121/61 90 L 04/14/23 20:00 60 16 106/46 95 04/14/23 19:27 60 16 104/57 95 04/14/23 19:01 97.5 F L 60 18 138/70 98 04/14/23 17:32 98.1 F 60 18 139/67 93 L Intake and Output 04/14/23 04/15/23 04/15/23 22:59 06:59 14:59 Other: # Voids 2 Weight 107 kg Results CBC & Chem 7: 04/14/23 17:53 04/14/23 17:53 Labs: Abnormal Lab Results - Last 24 Hours (Table) 04/14/23 04/14/23 04/14/23 Range/Units 17:53 17:53 17:53 RBC 5.61 H (3.80-5.40) m/uL Hct 46.4 H (34.0-46.0) % RDW 17.2 H (11.5-15.5) % APTT 21.8 L (22.0-30.0) sec Carbon Dioxide 32 H (22-30) mmol/L BUN 26 H (7-17) mg/dL Creatinine 1.36 H (0.52-1.04) mg/dL Glucose 235 H (74-99) mg/dL POC Glucose (mg/dL) (70-110) mg/dL Ur Leukocyte Esterase (Negative) Urine WBC (0-5) /hpf Hyaline Casts (0-2) /lpf Urine Mucus (None) /hpf 04/14/23 04/15/23 Range/Units 19:27 05:46 RBC (3.80-5.40) m/uL Hct (34.0-46.0) % RDW (11.5-15.5) % APTT (22.0-30.0) sec Carbon Dioxide (22-30) mmol/L BUN (7-17) mg/dL Creatinine (0.52-1.04) mg/dL Glucose (74-99) mg/dL POC Glucose (mg/dL) 160 H (70-110) mg/dL Ur Leukocyte Esterase Small H (Negative) Urine WBC 9 H (0-5) /hpf Hyaline Casts 4 H (0-2) /lpf Urine Mucus Rare H (None) /hpf
[2023-04-15 11:52] LABS: Glucose,Whole Blood 171 mg/dL (70-110)
[2023-04-15 16:57] LABS: Glucose,Whole Blood 163 mg/dL (70-110)
[2023-04-15 20:02] LABS: Glucose,Whole Blood 168 mg/dL (70-110)
[2023-04-15] MEDS: INSULIN DETEMIR (LEVEMIR) 100 UNIT/ML SYR SQ SCH (20:21)
[2023-04-16 05:32] LABS: Glucose,Whole Blood 129 mg/dL (70-110)
[2023-04-16 11:49] LABS: Glucose,Whole Blood 179 mg/dL (70-110)
--- NOTE | 2023-04-16 12:07 | P.PN ---
Subjective Progress Note Date: 04/16/23 patient 77-year-old lady with past medical significant for diabetes mellitus, COPD who presented to the ER for generalized weakness and failure to thrive. Patient stated that she was in the hospital a few weeks ago at which time she was discharged [facility]. Patient completed therapy and was discharged to her home yesterday but after arriving there patient continued to feel weak and unsafe of living alone. Patient stated she is unable to ambulate and feels likely she is going to fall. Denies any lightheadedness or dizziness. Patient denies any fever or chills. There was no complaint of chest pain or shortness of breath. Initial lab work done in the ER showed WBC 6.1, hemoglobin 14.4, platelet count 183, sodium 139, potassium 3.9, BUN 26, creatinine 1.36, glucose 235, calcium 9.2, magnesium 1.9, alk phos 85 UA negative for infection EKG done in the ER showed heart rate of 60, ventricular pacemaker rhythm, no ST segment elevation or depression seen, no T-wave inversions seen. Chest x-ray done in the ER showed no acute findings Patient admitted to internal medicine service 04/16. Patient seen and examined. Laying comfortably in the bed. Denies any lethargy or weakness REVIEW OF SYSTEMS: CONSTITUTIONAL: No fever, no malaise,. CARDIOVASCULAR: No chest pain, no palpitations, no syncope. PULMONARY: No shortness of breath, no cough, GASTROINTESTINAL: No diarrhea, no nausea, no vomiting, no abdominal pain. NEUROLOGICAL: No headaches, no weakness, PHYSICAL EXAMINATION: GENERAL: The patient is alert and oriented x3, not in any acute distress. Well developed, well nourished. HEENT: Pupils are round and equally reacting to light. EOMI. No scleral icterus. No conjunctival pallor. Normocephalic, atraumatic. No pharyngeal erythema. No thyromegaly. CARDIOVASCULAR: S1 and S2 present. No murmurs, rubs, or gallops. PULMONARY: Chest is clear to auscultation, no wheezing or crackles. ABDOMEN: Soft, nontender, nondistended, normoactive bowel sounds. No palpable organomegaly. MUSCULOSKELETAL: No joint swelling or deformity. EXTREMITIES: No cyanosis, clubbing, or pedal edema. NEUROLOGICAL: Gross neurological examination did not reveal any focal deficits. SKIN: No rashes. Assessment and plan Generalized weakness lethargy Debility Failure to thrive Acute kidney injury Monitor vital signs Monitor CBC Monitor CMP Fall precaution Continue IV fluids Continue Coreg Continue aspirin Lipitor DC fluids Continue Deyanira PT and OT recommend rehab consult case management for placement Labs and medication were reviewed.. Continue same treatment. Continue with symptomatic treatment. Resume home medication. Monitor labs and vitals. DVT and GI prophylaxis. Further recommendations as per clinical course of the patient Dictation was produced using [employer] dictation software. please excuse any grammatical, word or spelling errors. Objective - Vital Signs Vital signs: Vital Signs Temp 97.9 F 04/16/23 07:26 Pulse 57 L 04/16/23 07:26 Resp 15 04/16/23 07:26 BP 139/54 04/16/23 07:26 Pulse Ox 96 04/16/23 07:26 FiO2 Intake & Output 04/15/23 04/16/23 04/16/23 18:59 06:59 18:59 Intake Total 450 Output Total 400 200 Balance 50 -200 Intake: Oral 450 Output: Urine 400 200 Other: Voiding Method External Catheter External Catheter # Voids 1 - Labs CBC & Chem 7: 04/14/23 17:53 04/14/23 17:53 Labs: Abnormal Lab Results - Last 24 Hours (Table) 04/15/23 04/15/23 04/15/23 Range/Units 11:50 16:56 20:01 POC Glucose (mg/dL) 171 H 163 H 168 H (70-110) mg/dL 04/16/23 Range/Units 05:30 POC Glucose (mg/dL) 129 H (70-110) mg/dL
[2023-04-16 16:49] LABS: Glucose,Whole Blood 146 mg/dL (70-110)
[2023-04-16 20:49] LABS: Glucose,Whole Blood 210 mg/dL (70-110)
[2023-04-17 06:04] LABS: Glucose,Whole Blood 83 mg/dL (70-110)
[2023-04-17 11:28] LABS: Glucose,Whole Blood 115 mg/dL (70-110)
--- NOTE | 2023-04-17 13:26 | P.PN ---
Subjective Progress Note Date: 04/17/23 patient 77-year-old lady with past medical significant for diabetes mellitus, COPD who presented to the ER for generalized weakness and failure to thrive. Patient stated that she was in the hospital a few weeks ago at which time [facility]. Patient completed therapy and was discharged to her home yesterday but after arriving there patient continued to feel weak and unsafe of living alone. Patient stated she is unable to ambulate and feels likely she is going to fall. Denies any lightheadedness or dizziness. Patient denies any fever or chills. There was no complaint of chest pain or shortness of breath. Initial lab work done in the ER showed WBC 6.1, hemoglobin 14.4, platelet count 183, sodium 139, potassium 3.9, BUN 26, creatinine 1.36, glucose 235, calcium 9.2, magnesium 1.9, alk phos 85 UA negative for infection EKG done in the ER showed heart rate of 60, ventricular pacemaker rhythm, no ST segment elevation or depression seen, no T-wave inversions seen. Chest x-ray done in the ER showed no acute findings Patient admitted to internal medicine service 04/16. Patient seen and examined. Laying comfortably in the bed. Denies any lethargy or weakness 04/17. Patient seen and examined. Currently waiting on rehab placement. No acute issues overnight. Vital signs stable REVIEW OF SYSTEMS: CONSTITUTIONAL: No fever, no malaise,. CARDIOVASCULAR: No chest pain, no palpitations, no syncope. PULMONARY: No shortness of breath, no cough, GASTROINTESTINAL: No diarrhea, no nausea, no vomiting, no abdominal pain. NEUROLOGICAL: No headaches, no weakness, PHYSICAL EXAMINATION: GENERAL: The patient is alert and oriented x3, not in any acute distress. Well developed, well nourished. HEENT: Pupils are round and equally reacting to light. EOMI. No scleral icterus. No conjunctival pallor. Normocephalic, atraumatic. No pharyngeal erythema. No thyromegaly. CARDIOVASCULAR: S1 and S2 present. No murmurs, rubs, or gallops. PULMONARY: Chest is clear to auscultation, no wheezing or crackles. ABDOMEN: Soft, nontender, nondistended, normoactive bowel sounds. No palpable organomegaly. MUSCULOSKELETAL: No joint swelling or deformity. EXTREMITIES: No cyanosis, clubbing, or pedal edema. NEUROLOGICAL: Gross neurological examination did not reveal any focal deficits. SKIN: No rashes. Assessment and plan Generalized weakness lethargy Debility Failure to thrive Acute kidney injury Monitor vital signs Monitor CBC Monitor CMP Fall precaution Continue IV fluids Continue Coreg Continue aspirin Lipitor DC fluids Continue Deyanira PT and OT recommend rehab consult case management for placement Labs and medication were reviewed.. Continue same treatment. Continue with symptomatic treatment. Resume home medication. Monitor labs and vitals. DVT and GI prophylaxis. Further recommendations as per clinical course of the patient Dictation was produced using [employer] dictation software. please excuse any grammatical, word or spelling errors. Objective - Vital Signs Vital signs: Vital Signs Temp 97.6 F 04/17/23 07:29 Pulse 60 04/17/23 07:29 Resp 19 04/17/23 07:29 BP 111/49 04/17/23 07:29 Pulse Ox 97 04/17/23 07:29 FiO2 Intake & Output 04/16/23 04/17/23 04/17/23 18:59 06:59 18:59 Output Total 300 250 Balance -300 -250 Weight 48 kg Output: Urine 300 250 Other: Voiding Method External Catheter External Catheter External Catheter - Labs CBC & Chem 7: 04/14/23 17:53 04/14/23 17:53 Labs: Abnormal Lab Results - Last 24 Hours (Table) 04/16/23 04/16/23 04/16/23 Range/Units 11:47 16:48 20:47 POC Glucose (mg/dL) 179 H 146 H 210 H (70-110) mg/dL
[2023-04-17 16:11] LABS: Glucose,Whole Blood 134 mg/dL (70-110)
[2023-04-17 21:00] LABS: Glucose,Whole Blood 184 mg/dL (70-110)
[2023-04-18 06:06] LABS: Glucose,Whole Blood 108 mg/dL (70-110)
[2023-04-18 08:19] VITALS: TEMP 97.5
[2023-04-18 11:39] LABS: Glucose,Whole Blood 173 mg/dL (70-110)
--- NOTE | 2023-04-18 12:39 | P.DS ---
Providers Date of admission: 04/14/23 20:36 Expected date of discharge: 04/18/23 Attending physician: Leatha Toledo Primary care physician: [facility] Course: Discharge diagnoses; Generalized weakness lethargy Debility Failure to thrive Acute kidney injury Hospital course; patient 77-year-old lady with past medical significant for diabetes mellitus, COPD who presented to the ER for generalized weakness and failure to thrive. Patient stated that she was in the hospital a few weeks ago at which time [facility]. Patient completed therapy and was discharged to her home yesterday but after arriving there patient continued to feel weak and unsafe of living alone. Patient stated she is unable to ambulate and feels likely she is going to fall. Denies any lightheadedness or dizziness. Patient denies any fever or chills. There was no complaint of chest pain or shortness of breath. Initial lab work done in the ER showed WBC 6.1, hemoglobin 14.4, platelet count 183, sodium 139, potassium 3.9, BUN 26, creatinine 1.36, glucose 235, calcium 9.2, magnesium 1.9, alk phos 85 UA negative for infection EKG done in the ER showed heart rate of 60, ventricular pacemaker rhythm, no ST segment elevation or depression seen, no T-wave inversions seen. Chest x-ray done in the ER showed no acute findings Patient admitted to internal medicine service 04/16. Patient seen and examined. Laying comfortably in the bed. Denies any lethargy or weakness 04/17. Patient seen and examined. Currently waiting on rehab placement. No acute issues overnight. Vital signs stable 04/18. Patient seen and examined. Being discharged to rehab in stable condition PHYSICAL EXAMINATION: GENERAL: The patient is alert and oriented x3, not in any acute distress. Well developed, well nourished. HEENT: Pupils are round and equally reacting to light. EOMI. No scleral icterus. No conjunctival pallor. Normocephalic, atraumatic. No pharyngeal erythema. No thyromegaly. CARDIOVASCULAR: S1 and S2 present. No murmurs, rubs, or gallops. PULMONARY: Chest is clear to auscultation, no wheezing or crackles. ABDOMEN: Soft, nontender, nondistended, normoactive bowel sounds. No palpable organomegaly. MUSCULOSKELETAL: No joint swelling or deformity. EXTREMITIES: No cyanosis, clubbing, or pedal edema. NEUROLOGICAL: Gross neurological examination did not reveal any focal deficits. SKIN: No rashes. Dictation was produced using [employer] dictation software. please excuse any grammatical, word or spelling errors. Patient Condition at Discharge: Stable Plan - Discharge Summary Discharge Rx Participant: Yes New Discharge Prescriptions: Continue Fluticasone/Umeclidin/Vilanter [Trelegy Ellipta 200-62.5-25] 1 puff INHALATION RT-DAILY Aspirin EC [Ecotrin Low Dose] 81 mg PO DAILY Acetaminophen Tab [Tylenol] 500 - 1,000 mg PO Q6H PRN PRN Reason: Pain Or Fever > 100.5 levETIRAcetam [Keppra] 500 mg PO Q8H Calcium Carbonate [Calcium] 600 mg PO DAILY QUEtiapine [SEROquel] 75 mg PO HS Tamsulosin [Flomax] 0.4 mg PO DAILY Miconazole 2% Powder 1 applic TOPICAL BID Atorvastatin [Lipitor] 10 mg PO HS INSULIN ASPART (NovoLOG) [NovoLOG (formulary)] See Protocol SQ ACHS Lansoprazole [Prevacid] 15 mg PO DAILY Insulin Glargine/Lixisenatide [Soliqua 100 Unit-33 Mcg/ml Pen] 15 units SQ HS Albuterol Sulfate [Ventolin HFA] 2 puff INHALATION RT-Q6H PRN PRN Reason: Shortness Of Breath Cholecalciferol [Vitamin D3 (125 Mcg = 5000 Iu)] 250 mcg PO DAILY Ipratropium-Albuterol Nebulize [Duoneb 0.5 mg-3 mg/3 ml Soln] 3 ml INHALATION RT-Q6H PRN PRN Reason: Shortness Of Breath Furosemide [Lasix] 20 mg PO DAILY 90 Days #90 tab Ferrous Sulfate [Iron (65 MG Elemental)] 325 mg PO DAILY prednisoLONE ACETATE 1% OPHTH [Pred Forte 1%] 1 drop BOTH EYES SUMOWEFR@2100 carvediloL [Coreg] 6.25 mg PO BID-W/MEALS 30 Days #60 tab Clopidogrel [Plavix] 75 mg PO DAILY Discharge Medication List Insulin Glargine/Lixisenatide [Soliqua 100 Unit-33 Mcg/ml Pen] 15 units SQ HS 10/12/21 [History] Albuterol Sulfate [Ventolin HFA] 2 puff INHALATION RT-Q6H PRN 05/29/22 [History] Aspirin EC [Ecotrin Low Dose] 81 mg PO DAILY 05/29/22 [History] Fluticasone/Umeclidin/Vilanter [Trelegy Ellipta 200-62.5-25] 1 puff INHALATION RT-DAILY 05/29/22 [History] Acetaminophen Tab [Tylenol] 500 - 1,000 mg PO Q6H PRN 10/11/22 [History] Cholecalciferol [Vitamin D3 (125 Mcg = 5000 Iu)] 250 mcg PO DAILY 10/11/22 [History] levETIRAcetam [Keppra] 500 mg PO Q8H 10/11/22 [History] Ipratropium-Albuterol Nebulize [Duoneb 0.5 mg-3 mg/3 ml Soln] 3 ml INHALATION RT-Q6H PRN 01/20/23 [History] Furosemide [Lasix] 20 mg PO DAILY 90 Days #90 tab 01/30/23 [Rx] Calcium Carbonate [Calcium] 600 mg PO DAILY 03/18/23 [History] Ferrous Sulfate [Iron (65 MG Elemental)] 325 mg PO DAILY 03/18/23 [History] QUEtiapine [SEROquel] 75 mg PO HS 03/18/23 [History] Tamsulosin [Flomax] 0.4 mg PO DAILY 03/18/23 [History] prednisoLONE ACETATE 1% OPHTH [Pred Forte 1%] 1 drop BOTH EYES SUMOWEFR@2100 03/18/23 [History] carvediloL [Coreg] 6.25 mg PO BID-W/MEALS 30 Days #60 tab 03/22/23 [Rx] Atorvastatin [Lipitor] 10 mg PO HS 04/14/23 [History] Clopidogrel [Plavix] 75 mg PO DAILY 04/14/23 [History] INSULIN ASPART (NovoLOG) [NovoLOG (formulary)] See Protocol SQ ACHS 04/14/23 [History] Lansoprazole [Prevacid] 15 mg PO DAILY 04/14/23 [History] Miconazole 2% Powder 1 applic TOPICAL BID 04/14/23 [History] Follow up Appointment(s)/Referral(s): Vikram Zamarripa MD [Primary Care Provider] - 1-2 days Discharge Disposition: TRANSFER TO SNF/ECF
[2023-04-18 14:01] VITALS: BP 156/86; PULSE 59; RESP 17
--- NOTE | 2023-04-20 12:15 | CDI ---
Documentation Clarification Form Date: 04/20/2023 12:02:54 PM From: Patricia Barfield Phone: Admit Date: 04/14/2023 08:36:00 PM Patient Name: Zehra Montes Visit Number: [id number] Discharge Date: 04/18/2023 04:15:00 PM ATTENTION: The Clinical Documentation Specialists (CDI) and [facility] Coding Staff appreciate your assistance in clarifying documentation. Please respond to the clarification below the line at the bottom and electronically sign. The CDI & [facility] Coding staff will review the response and follow-up if needed. Please note: Queries are made part of the Legal Health Record. If you have any questions, please contact the author of this message via ITS. Dr. Harley Petersen CKD stage III is documented PMH Notes. Additional clarification regarding the current stage of CKD is requested. History/Risk Factors: 77yo F, PNA, CHAITANYA on CKD, SSS w PPM, FTT, DMII w neuropathy, dehydration, CAD, HTN, CHF Clinical Indicators: AfAm GFR: 43 NonAfAm GFR: 37 Cr: 1.36 BUN: 26 Treatment: Labs and medication were reviewed. Continue same treatment. Continue with symptomatic treatment. Resume home medication. Monitor labs and vitals. Please clarify the current stage of the CKD, if known: [ x] CKD Stage 3a [ ] CKD Stage 3b [ ] Other, please specify [ ] Unable to determine Reference: National Kid[employer] Stage 1 eGFR = 90 and kidney damage for =3 months Stage 2 eGFR 60-89 and kidney damage for =3 months Stage 3a eGFR 45-59 and kidney damage for =3 months Stage 3b eGFR 30-44 and kidney damage for =3 months Stage 4 eGFR 15-29 r and kidney damage for =3 months Stage 5 eGFR <15 and kidney damage for =3 months (Template last revised: March 2023) MTDD
--- NOTE | 2023-04-20 12:20 | CDI ---
Documentation Clarification Form Date: 04/20/2023 12:02:54 PM From: Patricia Barfield Phone: Admit Date: 04/14/2023 08:36:00 PM Patient Name: Zehra Montes Visit Number: [id number] Discharge Date: 04/18/2023 04:15:00 PM ATTENTION: The Clinical Documentation Specialists (CDI) and [facility] Coding Staff appreciate your assistance in clarifying documentation. Please respond to the clarification below the line at the bottom and electronically sign. The CDI & [facility] Coding staff will review the response and follow-up if needed. Please note: Queries are made part of the Legal Health Record. If you have any questions, please contact the author of this message via ITS. Dr. Harley Gonzalez Your patient has the documented diagnosis of unspecified CHF per [facility] Notes. Additional information regarding the type of CHF is requested. History/Risk Factors: 77yo F, PNA, CHAITANYA on CKD, SSS w PPM, FTT, DMII w neuropathy, dehydration, CAD, HTN, CHF Clinical Indicators: VS/Pulse OX: 93-98 Chest x ray: Heart/mediastinum: Heart appears mildlyenlarged. Mediastinum appears stable. No acute findings, or significant interval change. Treatment: Labs and medication were reviewed. Continue same treatment. Continue with symptomatic treatment. Resume home medication. Monitor labs and vitals. In your professional opinion, can you please clarify the type of CHF if known? [ ] Chronic Systolic Heart Failure (reduced EF) [ ] Chronic Diastolic Heart Failure (preserved EF) [ x ] Chronic Systolic & Diastolic Heart Failure [ ] Other, please specify [ ] Unable to determine (Template Last Revised: April 2020) MTDD
--- NOTE | 2023-04-20 12:32 | CDI ---
Documentation Clarification Form Date: 04/20/2023 12:21:00 PM From: Patricia Barfield Phone: Admit Date: 04/14/2023 08:36:00 PM Patient Name: Zehra Montes Visit Number: [id number] Discharge Date: 04/18/2023 04:15:00 PM ATTENTION: The Clinical Documentation Specialists (CDI) and [facility] Coding Staff appreciate your assistance in clarifying documentation. Please respond to the clarification below the line at the bottom and electronically sign. The CDI & [facility] Coding staff will review the response and follow-up if needed. Please note: Queries are made part of the Legal Health Record. If you have any questions, please contact the author of this message via ITS. Dr. Harley Gonzalez Diabetes is documented per ED Note and Progress Notes. Additional specificity regarding the diabetes diagnosis is requested. History/Risk Factors: 77yo F, PNA, CHAITANYA on CKD, SSS w PPM, FTT, DMII w neuropathy, dehydration, CAD, HTN, CHF Clinical Indicators: Glucose: 04/14 235 04/15 160-235 04/16 129-171 04/17 146-210 Treatment: IP Tx: Levimere, Humalog and Novolog Home Medications: Insulin Glargine/Lixisenatide 15 units SQ HS [Soliqua 100 Unit-33 Mcg/ml Pen]; Novolog SQ ACHS Please clarify the type of diabetes, if known: [ x] Diabetes Type 2 with hyperglycemia [ ] Other, please specify [ ] Unable to Determine (Template Last Revised: May 2020) MTDD
== END 2023-04-18 16:15 | DRG 683 ==
LOC: EC 17:27 → 4SSUR 20:36
PROVIDERS: ADMIT Hospitalist; ATTEND Hospitalist
DX: N17.9 Acute kidney failure, unspecified (principal); I13.0 Hypertensive heart and chronic kidney disease with heart failure and stage 1 through stage 4 chronic kidney disease, or unspecified chronic kidney disease; I50.42 Chronic combined systolic (congestive) and diastolic (congestive) heart failure; I49.5 Sick sinus syndrome; R62.7 Adult failure to thrive; E11.22 Type 2 diabetes mellitus with diabetic chronic kidney disease; E11.42 Type 2 diabetes mellitus with diabetic polyneuropathy; I48.0 Paroxysmal atrial fibrillation; N18.31 Chronic kidney disease, stage 3a; E11.65 Type 2 diabetes mellitus with hyperglycemia; E86.0 Dehydration; I25.10 Atherosclerotic heart disease of native coronary artery without angina pectoris; H54.62 Unqualified visual loss, left eye, normal vision right eye; Z79.4 Long term (current) use of insulin; Z79.82 Long term (current) use of aspirin; Z79.51 Long term (current) use of inhaled steroids; Z79.02 Long term (current) use of antithrombotics/antiplatelets; Z95.5 Presence of coronary angioplasty implant and graft; Z95.0 Presence of cardiac pacemaker; Z87.820 Personal history of traumatic brain injury; Z91.81 History of falling; Z87.11 Personal history of peptic ulcer disease; Z79.899 Other long term (current) drug therapy; Z91.011 Allergy to milk products; Z91.040 Latex allergy status; Z88.1 Allergy status to other antibiotic agents; Z85.828 Personal history of other malignant neoplasm of skin
CPT/HCPCS: 36415; 71046; 80053; 81001; 83605; 83735; 84484; 85025; 85610; 85730; 93005; 94640; 94760; 96360; 99285

== ENCOUNTER 2023-11-21 14:41 | Emergency (ER) | payer MEDICARE ==
[2023-11-21 14:51] VITALS: RESP 18; TEMP 98
--- NOTE | 2023-11-21 15:14 | ED ---
General Adult HPI - General Chief complaint: Skin/Abscess/Foreign Body Stated complaint: choking Time Seen by Provider: 11/21/23 14:42 Source: patient, RN notes reviewed, old records reviewed Mode of arrival: EMS Limitations: no limitations - History of Present Illness Initial comments: 78-year-old female presenting with choking episode possible aspiration. Patient is bedbound from [facility]. She was apparently eating her lunch, had a choking episode and became cyanotic requiring supplemental oxygen. The patient was able to vomit up her food she was eating and subsequently improved. She is awake and alert at the time my evaluation. She states she does intermittently wear supplemental oxygen but does not wear continuous oxygen. No fever. No chest pain. - Related Data Home Medications Medication Instructions Recorded Confirmed Albuterol Sulfate [Ventolin HFA] 2 puff INHALATION RT-Q6H PRN 05/29/22 11/21/23 Aspirin EC [Ecotrin Low Dose] 81 mg PO DAILY 05/29/22 11/21/23 Fluticasone/Umeclidin/Vilanter 1 puff INHALATION RT-DAILY 05/29/22 11/21/23 [Trelegy Ellipta 200-62.5-25] Acetaminophen Tab [Tylenol] 500 mg PO Q6H PRN 10/11/22 11/21/23 levETIRAcetam [Keppra] 500 mg PO Q8H 10/11/22 11/21/23 Ipratropium-Albuterol Nebulize 3 ml INHALATION RT-Q6H PRN 01/20/23 11/21/23 [Duoneb 0.5 mg-3 mg/3 ml Soln] Ferrous Sulfate [Iron (65 MG 325 mg PO DAILY 03/18/23 11/21/23 Elemental)] QUEtiapine [SEROquel] 50 mg PO HS 03/18/23 11/21/23 Tamsulosin [Flomax] 0.4 mg PO HS 03/18/23 11/21/23 prednisoLONE ACETATE 1% OPHTH 1 drop BOTH EYES SUMOWEFR@2100 03/18/23 11/21/23 [Pred Forte 1%] Atorvastatin [Lipitor] 10 mg PO HS 04/14/23 11/21/23 Clopidogrel [Plavix] 75 mg PO DAILY 04/14/23 11/21/23 Ciprofloxacin HCl [Cipro] 500 mg PO BID 11/21/23 11/21/23 DULoxetine HCL [Cymbalta] 60 mg PO DAILY@0700 11/21/23 11/21/23 Docusate [Colace] 100 mg PO BID 11/21/23 11/21/23 Ergocalciferol [Vitamin D2 (1250 1,250 mcg PO TH 11/21/23 11/21/23 Mcg = 34601 Iu)] Insulin Glargine [Lantus Vial] 15 unit SQ HS 11/21/23 11/21/23 Naloxone HCl 0.4 mg IM DIRECTED PRN 11/21/23 11/21/23 Naloxone HCl [Narcan] 4 mg NASAL DIRECTED PRN 11/21/23 11/21/23 carvediloL [Coreg] 6.25 mg PO Q12HR@0700,1900 11/21/23 11/21/23 Previous Rx's Medication Instructions Recorded Amoxic-Pot Clav 875-125Mg 1 tab PO Q12HR 10 Days #20 tab 11/21/23 [Augmentin 875-125] Allergies Allergy/AdvReac Type Severity Reaction Status Date / Time lactose Allergy Diarrhea Verified 11/21/23 16:57 Latex, Natural Rubber Allergy Itching Verified 11/21/23 16:57 sulfamethoxazole Allergy Rash/Hives Verified 11/21/23 16:57 [From Bactrim] trimethoprim [From Bactrim] Allergy Rash/Hives Verified 11/21/23 16:57 Review of Systems ROS Statement: Those systems with pertinent positive or pertinent negative responses have been documented in the HPI. ROS Other: All systems not noted in ROS Statement are negative. Past Medical History Past Medical History: Atrial Fibrillation, Asthma, Coronary Artery Disease (C AD), Cancer, Heart Failure, CVA/TIA, Diabetes Mellitus, Eye Disorder, Hypertension, Osteoarthritis (OA), Renal Disease, Seizure Disorder Additional Past Medical History / Comment(s): Brain mass/fall with intracranial bleed/hematome-surgery at [facility], seizure after brain surgery, paroxysmal Afib, DM type II, neuropathy bilateral feet, orthostatic hypotension, SSS with pacemaker, L1 compression fx, CKD stage III, blind in L eye, UTIs, lower GI bleed, gastritis, gastric erosion, CDiff colitis, skin cancer with removals, past L arm fracture, past R arm fracture x2. History of Any Multi-Drug Resistant Organisms: MRSA Date of last positivie culture/infection: 01/26/19 MDRO Source:: URINE Past Surgical History: Cholecystectomy, Heart Catheterization, Heart Catheterization With Stent, Hysterectomy, Pacemaker Additional Past Surgical History / Comment(s): Evacuation of intracranial hematoma and ressection of hemorrhagic mass, pacemaker 2016, PCI with stent 06/06/18, EGD/colonoscopy, R eye corneal implant/cataract removal, EGD 06/2018, colonoscopy, skin cancer removal. Past Anesthesia/Blood Transfusion Reactions: No Reported Reaction Additional Past Anesthesia/Blood Transfusion Reaction / Comment(s): . Date of Last Stent Placement:: 06/06/18 Type of Cardiac Device: Permanent Pacemaker Device Placement Date:: 04/2016 Past Psychological History: Anxiety, Depression Smoking Status: Never smoker Past Alcohol Use History: None Reported Past Drug Use History: None Reported - Past Family History Mother Family Medical History: Cancer, COPD, Hypertension Additional Family Medical History / Comment(s): Mother had bone cancer. Father Family Medical History: Cancer, Hypertension Additional Family Medical History / Comment(s): Father had skin cancer. General Exam Limitations: no limitations General appearance: alert, in no apparent distress Head exam: Present: atraumatic, normocephalic Eye exam: Present: normal appearance, PERRL ENT exam: Present: normal oropharynx Neck exam: Present: normal inspection. Absent: tenderness, meningismus Respiratory exam: Present: decreased breath sounds. Absent: respiratory distress, stridor Cardiovascular Exam: Present: regular rate, normal rhythm GI/Abdominal exam: Present: soft. Absent: distended, tenderness, guarding Neurological exam: Present: alert, oriented X3 Skin exam: Present: warm, dry, intact Course Vital Signs 11/21/23 11/21/23 11/21/23 14:46 14:52 15:38 Temperature 98.0 F Pulse Rate 60 60 60 Respiratory 18 18 18 Rate Blood Pressure 139/72 O2 Sat by Pulse 86 L 95 98 Oximetry 11/21/23 11/21/23 16:16 17:19 Temperature Pulse Rate 60 60 Respiratory 18 18 Rate Blood Pressure 127/89 O2 Sat by Pulse 97 97 Oximetry Medical Decision Making - Medical Decision Making Was pt. sent in by a medical professional or institution (, PA, REVENUE ENFORCEMENT COLLECTION AGENT, urgent care, hospital, or fdc...) When possible be specific @ -No Did you speak to anyone other than the patient for history (EMS, parent, family, police, friend...)? What history was obtained from this source @ -No Did you review nursing and triage notes (agree or disagree)? Why? @ -I reviewed and agree with nursing and triage notes Were old charts reviewed (outside hosp., previous admission, EMS record, old EKG, old radiological studies, urgent care reports/EKG's, fdc records)? Report findings @ -No old charts were reviewed Differential Dyspnea: Coronary syndrome, arrhythmia, tamponade, asthma, COPD, pulmonary embolism, pneumonia, pneumothorax, pulmonary effusion, anaphylaxis, diabetic ketoacidosis, flailed chest, pulmonary contusion, diaphragmatic rupture, anemia, neuromuscular, this is not meant to be an all-inclusive list. EKG interpreted by me (3pts min.). @Electronic paced rhythm rate of 60, QRS duration 193, QTc 541. X-rays interpreted by me (1pt min.). @ -2 view chest x-ray CT interpreted by no consolidated pneumonia, no focal pneumonia in the right lower lung field but there is a patchy infiltrate on the left. me (1pt min.). @ -None done U/S interpreted by me (1pt. min.). @ -None done What testing was considered but not performed or refused? (CT, X-rays, U/S, labs)? Why? @ -None What meds were considered but not given or refused? Why? @ -None Did you discuss the management of the patient with other professionals (professionals i.e. , PA, REVENUE ENFORCEMENT COLLECTION AGENT, lab, RT, psych nurse, social worker psychiatric, proposal director, teacher, supply officer, employment evaluator/case manager)? Give summary @ -No Was smoking cessation discussed for >3mins.? @ -No Was critical care preformed (if so, how long)? @ -No Were there social determinants of health that impacted care today? How? (Homelessness, low income, unemployed, alcoholism, drug addiction, transportation, low edu. Level, literacy, decrease access to med. care, skilled nursing, rehab)? @ -No Was there de-escalation of care discussed even if they declined (Discuss DNR or withdrawal of care, Hospice)? DNR status @ -No What co-morbidities impacted this encounter? (DM, HTN, Smoking, COPD, CAD, Cancer, CVA, ARF, Chemo, Hep., AIDS, mental health diagnosis, sleep apnea, morbid obesity)? @ -None Was patient admitted / discharged? Hospital course, mention meds given and route, prescriptions, significant lab abnormalities, going to OR and other pertinent info. @ -78-year-old female with suspected aspiration while eating. Patient is awake alert at the time my evaluation. Nothing visible in the oropharynx, no stridor. Patient has decreased air entry bilaterally without respiratory distress. X- ray does show a patchy infiltrate in the left. Patient will be covered for aspiration, started on antibiotics. Laboratory testing unremarkable. Patient s table for discharge back to fdc. Undiagnosed new problem with uncertain prognosis? @ -No Drug Therapy requiring intensive monitoring for toxicity (Heparin, Nitro, Insulin, Cardizem)? @ -No Were any procedures done? @ -No Diagnosis/symptom? @Aspiration Acute, or Chronic, or Acute on Chronic? @ acute Uncomplicated (without systemic symptoms) or Complicated (systemic symptoms)? @ -Default Side effects of treatment? @ -No Exacerbation, Progression, or Severe Exacerbation? @ -No Poses a threat to life or bodily function? How? (Chest pain, USA, [place], pneumonia, PE, COPD, DKA, ARF, appy, cholecystitis, CVA, Diverticulitis, Homicidal, Suicidal, threat to staff... and all critical care pts) @ -low risk at this time - Lab Data Result diagrams: 11/21/23 15:10 11/21/23 15:40 Lab Results 11/21/23 11/21/23 11/21/23 Range/Units 15:10 15:10 15:10 WBC 7.7 (3.8-10.6) k/uL RBC 5.19 (3.80-5.40) m/uL Hgb 15.0 (11.4-16.0) gm/dL Hct 47.3 H (34.0-46.0) % MCV 91.1 (80.0-100.0) fL MCH 28.8 (25.0-35.0) pg MCHC 31.6 (31.0-37.0) g/dL RDW 13.8 (11.5-15.5) % Plt Count 171 (150-450) k/uL MPV 7.4 Neutrophils % 76 % Lymphocytes % 15 % Monocytes % 5 % Eosinophils % 2 % Basophils % 1 % Neutrophils # 5.8 (1.3-7.7) k/uL Lymphocytes # 1.2 (1.0-4.8) k/uL Monocytes # 0.4 (0-1.0) k/uL Eosinophils # 0.1 (0-0.7) k/uL Basophils # 0.1 (0-0.2) k/uL Hypochromasia Slight PT 11.9 (10.0-12.5) sec INR 1.1 (<1.2) APTT 25.8 (22.0-30.0) sec Sodium (137-145) mmol/L Potassium (3.5-5.1) mmol/L Chloride (98-107) mmol/L Carbon Dioxide (22-30) mmol/L Anion Gap mmol/L BUN (7-17) mg/dL Creatinine (0.52-1.04) mg/dL Est GFR (CKD-EPI)AfAm (>60 ml/min/1.73 sqM) Est GFR (CKD-EPI)NonAf (>60 ml/min/1.73 sqM) Glucose (74-99) mg/dL Plasma Lactic Acid Hema 1.1 (0.7-2.0) mmol/L Calcium (8.4-10.2) mg/dL Magnesium (1.6-2.3) mg/dL Total Bilirubin (0.2-1.3) mg/dL AST (14-36) U/L ALT (4-34) U/L Alkaline Phosphatase (38-126) U/L Total Protein (6.3-8.2) g/dL Albumin (3.5-5.0) g/dL 11/21/23 Range/Units 15:40 WBC (3.8-10.6) k/uL RBC (3.80-5.40) m/uL Hgb (11.4-16.0) gm/dL Hct (34.0-46.0) % MCV (80.0-100.0) fL MCH (25.0-35.0) pg MCHC (31.0-37.0) g/dL RDW (11.5-15.5) % Plt Count (150-450) k/uL MPV Neutrophils % % Lymphocytes % % Monocytes % % Eosinophils % % Basophils % % Neutrophils # (1.3-7.7) k/uL Lymphocytes # (1.0-4.8) k/uL Monocytes # (0-1.0) k/uL Eosinophils # (0-0.7) k/uL Basophils # (0-0.2) k/uL Hypochromasia PT (10.0-12.5) sec INR (<1.2) APTT (22.0-30.0) sec Sodium 138 (137-145) mmol/L Potassium 4.1 (3.5-5.1) mmol/L Chloride 101 (98-107) mmol/L Carbon Dioxide 31 H (22-30) mmol/L Anion Gap 6 mmol/L BUN 16 (7-17) mg/dL Creatinine 0.77 (0.52-1.04) mg/dL Est GFR (CKD-EPI)AfAm 85 (>60 ml/min/1.73 sqM) Est GFR (CKD-EPI)NonAf 74 (>60 ml/min/1.73 sqM) Glucose 114 H (74-99) mg/dL Plasma Lactic Acid Hema (0.7-2.0) mmol/L Calcium 9.3 (8.4-10.2) mg/dL Magnesium 1.4 L (1.6-2.3) mg/dL Total Bilirubin 0.9 (0.2-1.3) mg/dL AST 21 (14-36) U/L ALT 11 (4-34) U/L Alkaline Phosphatase 48 (38-126) U/L Total Protein 5.3 L (6.3-8.2) g/dL Albumin 3.2 L (3.5-5.0) g/dL Disposition Clinical Impression: Pneumonia Disposition: HOME SELF-CARE Condition: Fair Instructions (If sedation given, give patient instructions): Pneumonitis (ED) Prescriptions: Amoxic-Pot Clav 875-125Mg [Augmentin 875-125] 1 tab PO Q12HR 10 Days #20 tab Is patient prescribed a controlled substance at d/c from ED?: No Referrals: Vikram Zamarripa MD [Primary Care Provider] - 1-2 days Time of Disposition: 17:47
[2023-11-21 15:18] LABS: Basophils # (A) 0.1 k/uL (0-0.2); Basophils % (A) 1 %; Eosinophils # (A) 0.1 k/uL (0-0.7); Eosinophils % (A) 2 %; HCT 47.3 % (34.0-46.0); Hypochromasia Slight; Lymphocytes # (A) 1.2 k/uL (1.0-4.8); Lymphocytes % (A) 15 %; MCH 28.8 pg (25.0-35.0); MCHC 31.6 g/dL (31.0-37.0); MCV 91.1 fL (80.0-100.0); Mean Platelet Volume 7.4; Monocytes # (A) 0.4 k/uL (0-1.0); Monocytes % (A) 5 %; Neutrophils # (A) 5.8 k/uL (1.3-7.7); Neutrophils % (A) 76 %; Platelet Count 171 k/uL (150-450); RBC 5.19 m/uL (3.80-5.40); RDW 13.8 % (11.5-15.5); WBC 7.7 k/uL (3.8-10.6)
--- NOTE | 2023-11-21 15:46 | XR ---
EXAMINATION TYPE: XR chest 2V DATE OF EXAM: 11/21/2023 COMPARISON: 04/14/2023 HISTORY: 78-year-old female choking episode, possible aspiration, shortness of breath TECHNIQUE: AP and lateral views FINDINGS: Heart is enlarged. There is mild patchy interstitial density throughout the left lung. Left anterior chest wall pacemaker generator with right atrial and right ventricular leads. No pleural effusion. IMPRESSION: 1. There may be early developing interstitial infiltrate in the left lung. Follow-up as clinically in dicated. 2. Similar mild cardiomegaly. [facility], Workstation: [facility] CENTERIncentive TargetingMILES, 11/21/2023 3:43 PM
[2023-11-21] MEDS: AMPICILLIN-SULBACTAM 3 GM in SODIUM CHLORIDE 0.9% 100 ML IVPB STA (16:17)
[2023-11-21 16:21] LABS: INR 1.1 (<1.2); Partial Thromboplastin Time 25.8 sec (22.0-30.0); Prothrombin Time 11.9 sec (10.0-12.5)
[2023-11-21 17:21] LABS: ALT 11 U/L (4-34); AST 21 U/L (14-36); African American GFR (CKD) 85 (>60 ml/min/1.73 sqM); Albumin 3.2 g/dL (3.5-5.0); Alkaline Phosphatase 48 U/L (38-126); Anion Gap 6 mmol/L; Blood Urea Nitrogen 16 mg/dL (7-17); Calcium 9.3 mg/dL (8.4-10.2); Carbon Dioxide 31 mmol/L (22-30); Chloride 101 mmol/L (98-107); Glucose 114 mg/dL (74-99); Magnesium 1.4 mg/dL (1.6-2.3); Non-African American GFR(CKD) 74 (>60 ml/min/1.73 sqM); Potassium 4.1 mmol/L (3.5-5.1); Sodium 138 mmol/L (137-145); Total Bilirubin 0.9 mg/dL (0.2-1.3); Total Protein 5.3 g/dL (6.3-8.2)
[2023-11-21 19:20] VITALS: BP 132/85
[2023-11-21 20:05] VITALS: PULSE 63
== END 2023-11-21 20:10 | disposition home or self-care (01) ==
LOC: EC 14:41
CPT/HCPCS: 36415; 71046; 80053; 83605; 83735; 85025; 85610; 85730; 93005; 99283

== ENCOUNTER 2024-03-16 18:36 | Emergency (ER) | payer MEDICARE ==
[2024-03-16 18:41] VITALS: BP 85/50; PULSE 60; RESP 20
[2024-03-16] MEDS ORDERED: SODIUM CHLORIDE 0.9% 1,000 ML IV STA (18:43)
[2024-03-16] MEDS ORDERED: AMPICILLIN-SULBACTAM 3 GM in SODIUM CHLORIDE 0.9% 100 ML IVPB STA (18:44)
[2024-03-16] MEDS: MORPHINE SULFATE 4 MG/ML SYRINGE IVP STA (18:51)
[2024-03-16 19:04] LABS: INR 1.2 (<1.2); Partial Thromboplastin Time 23.5 sec (22.0-30.0); Prothrombin Time 12.8 sec (10.0-12.5)
[2024-03-16 19:10] LABS: HCT 47.3 % (34.0-46.0); HGB 14.7 gm/dL (11.4-16.0); Hypochromasia Marked; MCH 28.2 pg (25.0-35.0); MCHC 31.1 g/dL (31.0-37.0); MCV 90.7 fL (80.0-100.0); Mean Platelet Volume 7.2; RBC 5.22 m/uL (3.80-5.40); RDW 13.8 % (11.5-15.5)
[2024-03-16 19:11] LABS: Platelet Count 302 k/uL (150-450)
--- NOTE | 2024-03-16 19:14 | ED ---
General Adult HPI - General Chief complaint: Cardiac Arrest/CPR Stated complaint: Unresponsive Time Seen by Provider: 03/16/24 18:43 Source: EMS, RN notes reviewed, old records reviewed Mode of arrival: EMS Limitations: altered mental status - History of Present Illness Initial comments: 78-year-old female presenting with [id number] cardiac arrest. Patient had been in a not shockable rhythm according to paramedics she received multiple rounds of epinephrine and approximately 10 minutes of CPR and did regain pulse. She was bagged with laryngeal mask airway during transport. Intubation was difficult. The patient is presenting from the group home. - Related Data Home Medications Medication Instructions Recorded Confirmed Aspirin EC [Ecotrin Low Dose] 81 mg PO DAILY 05/29/22 03/16/24 Fluticasone/Umeclidin/Vilanter 1 puff INHALATION RT-DAILY 05/29/22 03/16/24 [Trelegy Ellipta 200-62.5-25] levETIRAcetam [Keppra] 500 mg PO Q8H 10/11/22 03/16/24 Ferrous Sulfate [Iron (65 MG 325 mg PO DAILY 03/18/23 03/16/24 Elemental)] Tamsulosin [Flomax] 0.4 mg PO HS 03/18/23 03/16/24 prednisoLONE ACETATE 1% OPHTH 1 drop BOTH EYES SUMOWEFR@2100 03/18/23 03/16/24 [Pred Forte 1%] Atorvastatin [Lipitor] 10 mg PO HS 04/14/23 03/16/24 Clopidogrel [Plavix] 75 mg PO DAILY 04/14/23 03/16/24 DULoxetine HCL [Cymbalta] 60 mg PO DAILY 11/21/23 03/16/24 Docusate [Colace] 100 mg PO BID 11/21/23 03/16/24 Ergocalciferol [Vitamin D2 (1250 1,250 mcg PO Q7D 11/21/23 03/16/24 Mcg = 71731 Iu)] Insulin Glargine [Lantus Vial] 15 unit SQ HS 11/21/23 03/16/24 carvediloL [Coreg] 6.25 mg PO Q12HR 11/21/23 03/16/24 ARIPiprazole [Abilify] 10 mg PO DAILY 03/16/24 03/16/24 Amoxicillin 500 mg PO BID 03/16/24 03/16/24 Menthol-Zinc Oxide Oint 1 applic TOPICAL Q12H 03/16/24 03/16/24 [Calmoseptine Ointment] cloNIDine HCL [Catapres] 0.1 mg PO Q24H PRN 03/16/24 03/16/24 Allergies Allergy/AdvReac Type Severity Reaction Status Date / Time lactose Allergy Diarrhea Verified 03/16/24 18:42 Latex, Natural Rubber Allergy Itching Verified 03/16/24 18:42 Sulfa (Sulfonamide Allergy Unknown Verified 03/16/24 18:42 Antibiotics) sulfamethoxazole Allergy Rash/Hives Verified 03/16/24 18:42 [From Bactrim] trimethoprim [From Bactrim] Allergy Rash/Hives Verified 03/16/24 18:42 Review of Systems ROS Statement: Those systems with pertinent positive or pertinent negative responses have been documented in the HPI. ROS Other: All systems not noted in ROS Statement are negative. Past Medical History Past Medical History: Atrial Fibrillation, Asthma, Coronary Artery Disease (CAD), Cancer, Heart Failure, CVA/TIA, Diabetes Mellitus, Eye Disorder, Hypertension, Osteoarthritis (OA), Renal Disease, Seizure Disorder Additional Past Medical History / Comment(s): Brain mass/fall with intracranial bleed/hematome-surgery at [facility], seizure after brain surgery, paroxysmal Afib, DM type II, neuropathy bilateral feet, orthostatic hypotension, SSS with pacemaker, L1 compression fx, CKD stage III, blind in L eye, UTIs, lower GI bleed, gastritis, gastric erosion, CDiff colitis, skin cancer with removals, past L arm fracture, past R arm fracture x2. History of Any Multi-Drug Resistant Organisms: MRSA Date of last positivie culture/infection: 01/26/19 MDRO Source:: URINE Past Surgical History: Cholecystectomy, Heart Catheterization, Heart Catheterization With Stent, Hysterectomy, Pacemaker Additional Past Surgical History / Comment(s): Evacuation of intracranial hematoma and ressection of hemorrhagic mass, pacemaker 2016, PCI with stent 06/06/18, EGD/colonoscopy, R eye corneal implant/cataract removal, EGD 06/2018, colonoscopy, skin cancer removal. Past Anesthesia/Blood Transfusion Reactions: No Reported Reaction Additional Past Anesthesia/Blood Transfusion Reaction / Comment(s): . Date of Last Stent Placement:: 06/06/18 Type of Cardiac Device: Permanent Pacemaker Device Placement Date:: 04/2016 Past Psychological History: Anxiety, Depression Smoking Status: Never smoker Past Alcohol Use History: None Reported Past Drug Use History: None Reported - Past Family History Mother Family Medical History: Cancer, COPD, Hypertension Additional Family Medical History / Comment(s): Mother had bone cancer. Father Family Medical History: Cancer, Hypertension Additional Family Medical History / Comment(s): Father had skin cancer. General Exam General appearance: obtunded, in distress Head exam: Present: atraumatic, normocephalic Eye exam: Absent: PERRL (Sluggish) Respiratory exam: Present: respiratory distress, rhonchi, other (Chest rise and bilateral breath sounds with BVM) Cardiovascular Exam: Present: regular rate, normal rhythm GI/Abdominal exam: Present: soft. Absent: distended, tenderness Skin exam: Present: cyanosis, pallor Course Vital Signs 03/16/24 03/16/24 18:37 18:53 Pulse Rate 60 Respiratory 20 Rate Blood Pressure 85/50 Fraction of 100 100 Inspired Oxygen (FIO2) - Reevaluation(s) Reevaluation #1: 03/16/24 1850 Family was contacted during resuscitation and the patient wished to be a no code. Procedures - Intubation Laryngoscope: [place] Size: 4 ET Tube Size: 7.5 ET Tube Uncuffed: No Tube Secured Depth (cm): 22 Tube Secured Location: lips Tube Placement Confirmation: visualized tube passing through cords, equal breath sounds bilaterally, no breath sounds over epigastrium, confirmation by capnometry Patient Tolerated Procedure: well Intubation Complications: none Additional Comments: Significant food in the airway Medical Decision Making - Medical Decision Making Was pt. sent in by a medical professional or institution (, PA, REPAIRER ENGINE PRODUCTION, urgent care, hospital, or group home...) When possible be specific @ -No Did you speak to anyone other than the patient for history (EMS, parent, family, police, friend...)? What history was obtained from this source @ -No Did you review nursing and triage notes (agree or disagree)? Why? @ -I reviewed and agree with nursing and triage notes Were old charts reviewed (outside hosp., previous admission, EMS record, old EKG, old radiological studies, urgent care reports/EKG's, group home records)? Report findings @ -No old charts were reviewed Differential Diagnosis: Cardiopulmonary arrest, PEA arrest, aspiration EKG interpreted by me (3pts min.). @Paced rhythm rate of 60, wide-complex QRS 210, QTc 507, GA 177 X-rays interpreted by me (1pt min.). @ -None done CT interpreted by me (1pt min.). @ -None done U/S interpreted by me (1pt. min.). @ -None done What testing was considered but not performed or refused? (CT, X-rays, U/S, labs)? Why? @ -None What meds were considered but not given or refused? Why? @ -None Did you discuss the management of the patient with other professionals (professionals i.e. , PA, REPAIRER ENGINE PRODUCTION, lab, RT, psych nurse, renal social worker, mattress weaver, teacher, executive vice president and chief financial officer, director case management)? Give summary @ -No Was smoking cessation discussed for >3mins.? @ -No Was critical care preformed (if so, how long)? @ -No Were there social determinants of health that impacted care today? How? (Homelessness, low income, unemployed, alcoholism, drug addiction, transportation, low edu. Level, literacy, decrease access to med. care, long-term, rehab)? @ -No Was there de-escalation of care discussed even if they declined (Discuss DNR or withdrawal of care, Hospice)? DNR status @ -No What co-morbidities impacted this encounter? (DM, HTN, Smoking, COPD, CAD, Cancer, CVA, ARF, Chemo, Hep., AIDS, mental health diagnosis, sleep apnea, morbid obesity)? @ -None Was patient admitted / discharged? Hospital course, mention meds given and route, prescriptions, significant lab abnormalities, going to OR and other pertinent info. @ -[78-year-old female with [id number] cardiac arrest patient had return of spontaneous circulation after approximately 10 minutes of CPR. Patient was in a PEA rhythm did not require defibrillation. Paramedics gave several rounds of epinephrine during transport. She was intubated upon arrival. Family was contacted regarding the goals of care and felt that the patient would not want resuscitation or aggressive measures and the patient was made a DNR. She subsequently went into PEA rhythm with no spontaneous respirations. Time of 1851. Primary care has been contacted Undiagnosed new problem with uncertain prognosis? @ -No Drug Therapy requiring intensive monitoring for toxicity (Heparin, Nitro, Insulin, Cardizem)? @ -No Were any procedures done? @Yes, intubation Diagnosis/symptom? @ -[Cardiac arrest, suspect hypoxic arrest secondary to aspiration Acute, or Chronic, or Acute on Chronic? @ -Default Uncomplicated (without systemic symptoms) or Complicated (systemic symptoms)? @ -Default Side effects of treatment? @ -No Exacerbation, Progression, or Severe Exacerbation? @ -No Poses a threat to life or bodily function? How? (Chest pain, USA, [place], pneumonia, PE, COPD, DKA, ARF, appy, cholecystitis, CVA, Diverticulitis, Homicidal, Suicidal, threat to staff... and all critical care pts) @ - - Lab Data Lab Results 03/16/24 Range/Units 18:45 PT 12.8 H (10.0-12.5) sec INR 1.2 H (<1.2) APTT 23.5 (22.0-30.0) sec Disposition Clinical Impression: Acute respiratory failure, Sudden cardiac Disposition: Condition: Undetermined Is patient prescribed a controlled substance at d/c from ED?: No Referrals: Estella Araiza DO [Primary Care Provider] - 1-2 days Time of Disposition: 18:52 Preliminary Cause of : PEA arrest, cardiopulmonary arrest
[2024-03-16 19:18] LABS: ALT 417 U/L (4-34); African American GFR (CKD) >90 (>60 ml/min/1.73 sqM); Albumin 2.7 g/dL (3.5-5.0); Alkaline Phosphatase 103 U/L (38-126); Anion Gap 4 mmol/L; Blood Urea Nitrogen 26 mg/dL (7-17); Calcium 8.5 mg/dL (8.4-10.2); Carbon Dioxide 35 mmol/L (22-30); Chloride 87 mmol/L (98-107); Glucose 410 mg/dL (74-99); Magnesium 1.8 mg/dL (1.6-2.3); Non-African American GFR(CKD) 79 (>60 ml/min/1.73 sqM); Potassium 5.8 mmol/L (3.5-5.1); Sodium 126 mmol/L (137-145); Total Bilirubin 0.6 mg/dL (0.2-1.3)
[2024-03-16 19:25] LABS: AST 828 U/L (14-36)
[2024-03-16 19:48] LABS: Band Neutrophils % 5 %; Lymphocytes # (M) 10.54 k/uL (1.0-4.8); Metamyelocytes # (M) 1.24 k/uL (0); Metamyelocytes % 4 %; Monocytes # (M) 0.93 k/uL (0-1.0); Myelocytes # (M) 2.79 k/uL (0); Myelocytes % 9 %; Neutrophils % (M) 47 %; Nucleated Red Blood Cells 0 /100 WBC (0-0); Total Cells Counted 200
[2024-03-16 19:49] LABS: Large Platelets Present; Toxic Granulation Present
== END 2024-03-16 21:20 | disposition expired ==
LOC: EC 18:36
DX: I13.0 Hypertensive heart and chronic kidney disease with heart failure and stage 1 through stage 4 chronic kidney disease, or unspecified chronic kidney disease (principal); J80 Acute respiratory distress syndrome; I46.9 Cardiac arrest, cause unspecified; N18.9 Chronic kidney disease, unspecified; Z91.040 Latex allergy status; Z88.2 Allergy status to sulfonamides; Z91.011 Allergy to milk products
CPT/HCPCS: 36415; 94002; 92950; 80053; 83605; 83735; 84484; 85025; 85610; 85730; 99285; 31500; 96374; J2270